=== PATIENT | male | born 1960 | race Caucasian/White ===

== ENCOUNTER → 2017-09-03 10:18 | Outpatient (CLI) | payer MEDICARE, SELFPAY ==
[2017-09-03 11:06] LABS: Basophils % 0.4 % (0.1-2.0); Eosinophils # 0.2 K/mm3 (0.0-0.4); Eosinophils % 3.3 % (0.1-12.0); Hematocrit 49.9 % (42.0-52.0); Hemoglobin 16.2 g/dL (14.1-18.0); Lymphocytes # 1.9 K/mm3 (0.7-4.5); Lymphocytes % 29.8 K/mm3 (10-50); Mean Corpuscular HGB Conc 32.5 g/dL (31.8-35.4); Mean Corpuscular Hemoglobin 30.2 pg (27.0-31.2); Mean Corpuscular Volume 92.9 fl (80-94); Mean Platelet Volume 8.4 fl (7.4-10.4); Monocytes # 0.3 K/mm3 (0.1-1.0); Monocytes % 5.4 % (1.7-9.3); Neutrophils # 3.8 K/mm3 (1.8-7.8); Platelet Count 124 K/mm3 (142-424); Red Blood Count 5.37 M/mm3 (4.60-6.20); Red Cell Distribution Width 13.5 % (11.5-17.5); White Blood Count 6.2 K/mm3 (4.8-10.8)
[2017-09-03 12:31] LABS: Alanine Aminotransferase 31 U/L (12-78); Albumin Level 4.3 gm/dL (3.4-5.0); Albumin/Globulin Ratio 1.3 (1.1-1.8); Alkaline Phosphatase 113 U/L (46-116); Anion Gap 9.6 mEq/L (5-15); Aspartate Amino Transferase 25 U/L (15-37); Bilirubin,Total 0.6 mg/dL (0.2-1.0); Blood Urea Nitrogen 11 mg/dL (7-18); Calcium 9.3 mg/dL (8.5-10.1); Carbon Dioxide 33 mmol/L (21.0-32.0); Chloride 104 mmol/L (98-107); Creatinine,Serum 0.95 mg/dL (0.70-1.30); Estimated Glomerular Filt Rate > 60 ml/min (>60); GFR (African American) > 60 ML/MIN (>60); Globulin 3.2 gm/dl (1.3-3.2); Glucose 85 mg/dL (74-106); Potassium 4.6 mmoL/L (3.5-5.1); Sodium 142 mmol/L (136-145); Thyroid Stimulating Hormone 0.49 uIU/ml (0.358-3.740); Total Protein,Serum 7.5 gm/dL (6.4-8.2)
== END ==
PROVIDERS: PCP Internal Medicine Adolescent Medicine; Visit Provider Internal Medicine Adolescent Medicine
DX: E78.01 Familial hypercholesterolemia (principal); I25.10 Atherosclerotic heart disease of native coronary artery without angina pectoris
CPT/HCPCS: 36415; 80053; 84443; 85025

== ENCOUNTER 2017-10-07 12:25 | Observation (INO) ==
[2017-10-07 12:56] LABS: Basophils % 0.5 % (0.1-2.0); Eosinophils # 0.1 K/mm3 (0.0-0.4); Eosinophils % 2.2 % (0.1-12.0); Hemoglobin 12.8 g/dL (14.1-18.0); Lymphocytes % 37.2 K/mm3 (10-50); Mean Corpuscular Hemoglobin 29.6 pg (27.0-31.2); Mean Corpuscular Volume 92.7 fl (80-94); Mean Platelet Volume 9.2 fl (7.4-10.4); Monocytes # 0.5 K/mm3 (0.1-1.0); Monocytes % 8.3 % (1.7-9.3); Neutrophils # 2.8 K/mm3 (1.8-7.8); Neutrophils % 51.6 % (37.0-80.0); Platelet Count 107 K/mm3 (142-424); Red Blood Count 4.32 M/mm3 (4.60-6.20); Red Cell Distribution Width 13.9 % (11.5-17.5); White Blood Count 5.4 K/mm3 (4.8-10.8)
[2017-10-07 13:22] LABS: Alanine Aminotransferase 29 U/L (12-78); Albumin Level 3.1 gm/dL (3.4-5.0); Albumin/Globulin Ratio 1.1 (1.1-1.8); Alkaline Phosphatase 86 U/L (46-116); Anion Gap 9.3 mEq/L (5-15); Aspartate Amino Transferase 21 U/L (15-37); Bilirubin,Total 0.4 mg/dL (0.2-1.0); Blood Urea Nitrogen 11 mg/dL (7-18); Calcium 7.9 mg/dL (8.5-10.1); Carbon Dioxide 29 mmol/L (21.0-32.0); Chloride 110 mmol/L (98-107); Creatine Kinase 50 U/L (39-308); Globulin 2.8 gm/dl (1.3-3.2); Glucose 67 mg/dL (74-106); Potassium 4.3 mmoL/L (3.5-5.1); Sodium 144 mmol/L (136-145); Total Protein,Serum 5.9 gm/dL (6.4-8.2)
[2017-10-07 14:15] LABS: Microscopic, Urine URINE MICROSCOPIC (MICROSCOPIC)
--- NOTE | 2017-10-07 14:15 | Emergency Department Note ---
ED Disposition Clinical Impression: Symptomatic bradycardia Hypotension Qualifiers: Hypotension type: other hypotension type Qualified Code(s): I95.89 - Other hypotension Disposition: Admitted As Inpatient Condition on Discharge: Fair Time of Disposition: 14:35 - Critical Care Critical Care Time: No Attestation: On 10/07/17, the high probability of a clinically significant, sudden or life threatening deterioration of the following system(s) required my full and direct attention, intervention and personal management. The time I documented below is in addition to time spent performing reported procedures but includes the following listed in this critical care notation. Total Critical Care Time: 60 Vital system(s) involved:: Circulatory Failure My critical care processes included: Assessment & monitoring of V/S, Initial and Re-exams, Data Review/Interpretation, Coordinating Care, Medication Orders and management, Documentation Medical Decision Making - Medical Records Medical records reviewed: Yes: I reviewed the patient's medical records. Vital Signs: 10/07/17 12:27 Pulse Rate [Right Radial] 47 L Respiratory Rate 16 Blood Pressure [Right Arm] 79/41 Blood Pressure Mean [Right Arm] 53 Blood Pressure Source [Right Arm] Automatic Cuff Blood Pressure Position [Right Arm] Sitting 02 Sat by Pulse Oximetry 99 Oxygen Delivery Method Room Air - Lab Data Lab results reviewed: Yes: I reviewed the patient's lab results. Lab Results 10/07/17 12:45: WBC 5.4, RBC 4.32 L, Hgb 12.8 L, Hct 40.0 L, MCV 92.7, MCH 29.6 , MCHC 32.0, RDW 13.9, Plt Count 107 L, MPV 9.2, Neut % (Auto) 51.6, Lymph % ( Auto) 37.2, [place] % (Auto) 8.3, Eos % (Auto) 2.2, Baso % (Auto) 0.5, Neut # (Auto ) 2.8, Lymph # (Auto) 2.0, [place] # (Auto) 0.5, Eos # (Auto) 0.1, Baso # (Auto) 0.0 10/07/17 12:45: Sodium 144, Potassium 4.3, Chloride 110 H, Carbon Dioxide 29, Anion Gap 9.3, BUN 11, Creatinine 1.05, Estimated Creat Clear 71, Estimated GFR 72, Est GFR ( Amer) 87, Glucose 67 L, Calcium 7.9 L, Total Bilirubin 0.4 , AST 21, ALT 29, Alkaline Phosphatase 86, Total Creatine Kinase 50, CK-MB (CK-2 ) < 0.5, CK-MB (CK-2) Rel Index 1.0, Troponin I < 0.02, Total Protein 5.9 L, Albumin 3.1 L, Globulin 2.8, Albumin/Globulin Ratio 1.1 10/07/17 12:45: Lactic Acid 1.3 10/07/17 12:45: TSH 0.95 D 10/07/17 14:08: Urine Color Yellow, Urine Appearance Clear, Urine pH 6.0, Ur Specific [place] 1.010, Urine Protein Negative, Urine Glucose (UA) Negative, Urine Ketones Negative, Urine Blood Negative, Urine Nitrate Negative, Urine Bilirubin Negative, Urine Urobilinogen 0.2, Ur Leukocyte Esterase Negative, Urine RBC None, Urine WBC None, Ur Squamous Epith Cells Occasional, Urine Bacteria Trace, Hyaline Casts Occasional 10/07/17 14:08: Urine Opiates Screen Positive H, Ur Barbituates Screen Negative , Ur Phencyclidine Scrn Negative, Ur Amphetamines Screen Negative, U Methamphetamines Scrn Negative, U Benzodiazepines Scrn Positive H, Urine Cocaine Screen Negative, U Marijuana (THC) Screen Negative Result diagrams: 10/07/17 12:45 10/07/17 12:45 Orders (Tests/Meds): ED MEDICATIONS Generic Name Dose Route Start Last Admin Trade Name Freq PRN Reason Stop Dose Admin Aspirin 81 mg 10/08/17 09:00 Aspirin 81mg Chewable Tablet PO 11/07/17 08:59 DAILY ROGELIO Sodium Chloride 1,000 mls @ 75 mls/hr 10/07/17 16:56 10/07/17 17:43 Sod Chlor 0.9% 1000ml Bag IV 11/06/17 16:54 75 mls/hr .[id number] ROGELIO Administration Non-Formulary Medication 0.5 mg 10/07/17 16:56 10/07/17 22:19 Alprazolam [Alprazolam Xr 0.5mg Tab] PO 0.5 mg TID PRN Administration Anxiety Non-Formulary Medication 80 mg 10/08/17 09:00 Atorvastatin Calcium [Atorvastatin 80mg Tab] PO 11/07/17 08:59 DAILY ROGELIO Non-Formulary Medication 5 mg 10/07/17 21:00 10/07/17 22:26 Oxybutynin Chloride [Oxybutynin Chloride Er] PO 11/06/17 20:59 5 mg TID ROGELIO Administration Non-Formulary Medication 15 mg 10/07/17 17:00 10/07/17 22:28 Oxycodone Hcl [Oxycodone (Ir) 15mg Tab] PO 11/06/17 16:59 Not Given Q6 ROGELIO Non-Formulary Medication 4 mg 10/07/17 21:00 10/07/17 22:27 Tizanidine Hcl [Tizanidine Hcl] PO 11/06/17 20:59 4 mg TID ROGELIO Administration Non-Formulary Medication 40 mg 10/08/17 09:00 Fluoxetine Hcl [Fluoxetine Hcl] PO 11/07/17 08:59 DAILY [facility] Pantoprazole Sodium 40 mg 10/08/17 09:00 Protonix 40mg Tablet PO 11/07/17 08:59 DAILY [facility] Pregabalin 50 mg 10/07/17 21:00 10/07/17 22:18 Lyrica 100mg Capsule PO 11/06/17 20:59 50 mg BID ROGELIO Administration Discontinued Medications Generic Name Dose Route Start Last Admin Trade Name Freq PRN Reason Stop Dose Admin Aspirin 81 mg 10/08/17 09:00 Aspirin 81mg Chewable Tablet PO 11/07/17 08:59 DAILY ROGELIO Sodium Chloride 1,000 mls @ 999 mls/hr 10/07/17 12:45 10/07/17 12:58 Sod Chlor 0.9% 1000ml Bag IV 10/07/17 13:45 999 mls/hr .[id number] ROGELIO Administration Sodium Chloride 1,000 mls @ 75 mls/hr 10/07/17 16:55 Sod Chlor 0.9% 1000ml Bag IV 11/06/17 16:54 .[id number] ROGELIO Non-Formulary Medication 0.5 mg 10/07/17 16:55 Alprazolam [Alprazolam Xr 0.5mg Tab] PO TID PRN Anxiety Non-Formulary Medication 80 mg 10/08/17 09:00 Atorvastatin Calcium [Atorvastatin 80mg Tab] PO 11/07/17 08:59 DAILY ROGELIO Non-Formulary Medication 5 mg 10/07/17 21:00 Oxybutynin Chloride [Oxybutynin Chloride Er] PO 11/06/17 20:59 TID ROGELIO Non-Formulary Medication 15 mg 10/07/17 17:00 Oxycodone Hcl [Oxycodone (Ir) 15mg Tab] PO 11/06/17 16:59 Q6 ROGELIO Non-Formulary Medication 4 mg 10/07/17 21:00 Tizanidine Hcl [Tizanidine Hcl] PO 11/06/17 20:59 TID ROGELIO Non-Formulary Medication 40 mg 10/08/17 09:00 Fluoxetine Hcl [Fluoxetine Hcl] PO 11/07/17 08:59 DAILY [facility] Pantoprazole Sodium 40 mg 10/08/17 09:00 Protonix 40mg Tablet PO 11/07/17 08:59 DAILY R[facility]IO Pregabalin 50 mg 10/07/17 21:00 Lyrica 100mg Capsule PO 11/06/17 20:59 BID ROGELIO ORDERS Category Date Time Status Blood Culture Stat Micro 10/07/17 12:45 Received - Radiology Data #1 Image(s): Chest Image Reviewed: Yes I reviewed the patient's radiology results, Yes I reviewed the patient's radiology image Patient: Rl Steward MR#: [id number] : 1960 Acct:[id number] Age/Sex: 57 / M ADM Date: 10/07/17 Loc: ER Attending Dr: Ordering Physician: Gelacio Alston MD Date of Service: 10/07/17 Procedure(s): XR chest portable Accession Number(s): [id number] cc: Almas Lowry MD; Thiago Franklin ~ XR chest portable HISTORY: Dizziness and hypotension ITS.REASON: dizziness ORDERING PHYSICIAN: Gelacio Alston MD PATIENT AGE: 57 years COMPARISON: 07/06/2017 FINDINGS: Borderline cardiomegaly. Prior median sternotomy with CABG. Epicardial pacer wires are present. Clips are present in the right axilla. Fibronodular changes are present in the right apex. No lobar consolidation or collapse. No acute bony anomalies. IMPRESSION: Chronic changes and postsurgical changes. No change with no acute finding. Dictated By: Thiago Franklin Signed By: <Electronically signed by Thiago Franklin in OV> 10/07/17 1440 DD/ 1439 - US Data US Images: Other (ECHO, 2D) ED US Reviewed: Yes: I have reviewed the patient's US results, I have viewed radiologist's interpretation Findings Narrative: cc: Almas Lowry MD; Gelacio Alston MD; Buddy Johnson MD~ PROCEDURE: 2-D M-mode and color Doppler study INDICATIONS FOR THE TEST: Chest pain COPD Heart Murmur Tobacco Smoking Palpitations Fatigue Syncope Edema Hypertension Diabetes Mellitus Rheumatic Fever SOB ARTHUR Obesity Hyperlipidemia Family History HD Additional History HYPOTENSION,BRADYCARDIA,CAD CABG ECHO 07/06/17 EF 45% PATIENT INFORMATION HEIGHT: 68 WEIGHT:147 GENDER: Male B/P:79/41 2-D/M-MODE INTERPRETATION: 2-D MEASUREMENTS OBSERVED VALUES IN CMS Right Ventricular Dimension (RVDd) 2.2 Interventricular Septum (Thickness)(IVsd) 1.0 Left Ventricular Internal Dimensions(LVIDd) 5.1 Left Ventricular Posterior Wall (Thickness)(LVPWd) 1.0 Aortic Root 3.5 Aortic Cusp Separation 2.1 Left Atrial Dimensions (LAD) 3.5 2D 1. Left atrium is mildly enlarged, left ventricle is normal size, visually estimated ejection fraction approximately 40-45%, there is mild discrete hypokinesis involving mid to distal septum anteroapical and apical wall. 2. The right atrium and right ventricle are normal size and contractility. 3. The aortic valve is minimally thickened and fibrosed. 4. The mitral and tricuspid valve leaflets are minimally thickened. 5. The pulmonic valve is poorly visualized. 6. No significant pericardial effusion noted. DOPPLER INTERROGATION: Doppler interrogation of the aortic, mitral and tricuspid valvular presence of trace aortic, mild mitral and tricuspid regurgitation, calculated right ventricular systolic pressure is 46 mmHg consistent with moderate pulmonary hypertension, diastolic parameters are inconclusive. CONCLUSION: 1. Mildly enlarged left atrium, normal left ventricular size, visually estimated ejection fraction 40-45% with multiple segmental wall motion abnormality described above, diastolic parameters are inconclusive. 2. Trace aortic, mild mitral and tricuspid regurgitation, calculated right ventricular systolic pressure is 46 mmHg consistent with moderate pulmonary hypertension 3. No significant pericardial effusion noted. Dictated By: Buddy Johnson MD Signed By: <Electronically signed by Buddy Johnson MD in OV> 10/07/17 1547 DD/ 1526 - Physician Consults Physician Consulted: Claudia Fink c/p Dr Lowry Time: 14:36 Reason -: Admission, Pt condition Additional Consult: Dr Tan Time: 14:40 Reason -: Admission, Pt condition, Cardiology Eval/Care - Tony Inquiry Pt receiving controlled substance: No - Reevaluation(s) Time: 14:35 Reevaluation #1: Upon evaluation patient's condition appears to be unchanged, as far as the heart rate, however the blood pressure was able to be corrected with IV fluids. Dizzy HPI - General Chief Complaint: Dizziness Stated Complaint: hypotensive/dizzy Mode of Arrival: EMS Limitations: No Limitations Description of Symptoms (Recalled from ER Triage Doc. by RN): pt c/o dizziness, weakness, and hypotension. - History of Present Illness HPI Narrative: Patient is a 57-year-old patient presenting the emergency room with a chief complaint of found weakness, and near syncope. He has not been feeling well for the past 2 weeks, reporting that he stands he stands up he feels like putting out, and getting dizzy, and needing to sit down almost immediately. His daughter, who is a nurse, came to check on him today and upon verification of his vital signs she realized that he is bradycardic and hypotensive and she called the ambulance. MD complaint: dizziness, lightheadedness Onset (ago): week(s) (2) Timing: gradual onset History of similar episodes: Yes History of trauma: No Severity: severe Relieving factors: rest Exacerbating factors: movement - Related Data Home Medications Medication Instructions Recorded Confirmed ALPRAZolam [Alprazolam Xr 0.5mg 0.5 mg PO TID PRN 10/07/17 10/07/17 Tab] Aspirin 81 mg PO DAILY 10/07/17 10/07/17 Atorvastatin Calcium [Atorvastatin 80 mg PO DAILY 10/07/17 10/07/17 80mg Tab] Fluoxetine HCl 40 mg PO DAILY 10/07/17 10/07/17 Lisinopril [Lisinopril 20mg Tab] 20 mg PO DAILY 10/07/17 10/07/17 Oxybutynin Chloride [Oxybutynin 5 mg PO TID 10/07/17 10/07/17 Chloride ER] Oxycodone HCl [Oxycodone (IR) 15mg 15 mg PO Q6 10/07/17 10/07/17 Tab] Pantoprazole Sodium [Protonix 40mg 40 mg PO DAILY 10/07/17 10/07/17 tablet] Pregabalin [Lyrica 100mg Cap] 50 mg PO BID 10/07/17 10/07/17 Tizanidine HCl 4 mg PO TID 10/07/17 10/07/17 Allergies Allergy/AdvReac Type Severity Reaction Status Date / Time adhesive tape [ADHESIVE TAPE] Allergy Intermediate I-RASH Verified 10/07/17 12: 33 duloxetine [From CYMBALTA] AdvReac Unknown Verified 10/07/17 12:33 [facility] History I have reviewed the patient's past medical history: Yes Medical History: Denies:: Cancer, Diabetes Mellitus Type 1, Diabetes Mellitus Type 2, MRSA Amputation: No - *Social History Smoking Status: Former smoker Tobacco Type: cigarettes Alcohol Intake: never - Psychiatric History Expresses thoughts of harming self/others: None Suicide Plan Description: No Plan ROS Obtained: Yes All systems reviewed & no additional complaints - Neurologic Neurologic: Reports weakness Physical Exam - General General appearance: alert, in no apparent distress - Head Head exam: atraumatic, normocephalic, normal inspection - Eye Eye exam: Present: normal appearance, PERRL, EOMI - ENT ENT exam: Present: normal exam, normal oropharynx, mucous membranes moist, TM's normal bilaterally, normal external ear exam - Neck Neck exam: Present: normal inspection, full ROM, trachea midline. Absent: meningismus, lymphadenopathy - Chest Chest inspection: Present: normal inspection, symmetric chest wall rise. Absent : tenderness - Respiratory Respiratory exam: Present: normal lung sounds bilaterally. Absent: respiratory distress - Cardiovascular Cardiovascular exam: Present: bradycardia, normal heart sounds. Absent: JVD - Abdominal Exam Abdominal exam: Present: soft, normal bowel sounds. Absent: distention, tenderness, guarding - Extremities Exam Extremities exam: Present: normal inspection, full ROM, normal capillary refill. Absent: calf tenderness - Back Exam Back exam: Present: normal inspection. Absent: tenderness - Neurological Exam Neurological exam: Present: alert, oriented X3 - Psychiatric Psychiatric exam: Present: normal affect, normal mood - Skin Skin exam: Present: warm, dry, intact, normal color - Lymphatic Lymphatic Findings: no adenopathy
[2017-10-07 14:22] LABS: Appearance,Urine CLEAR (Clear); Bilirubin,Urine Negative (Negative); Blood, Urine Negative (Negative); Color,Urine YELLOW (Yellow); Glucose,Urine (UA) Negative (Negative); Ketones,Urine Negative (Negative); Leukocyte Esterase,Urine Negative (Negative); Protein,Urine Negative (Negative); Urobilinogen,Urine 0.2 EU/dl (0.2)
[2017-10-07 14:25] LABS: Amphetamine/Metha Screen,Urine Negative ng/mL (<1000); Barbiturates Screen,Urine Negative ng/mL (<200); Benzodiazepines Screen,Urine Positive ng/mL (200); Cannabinoid Screen,Urine Negative ng/mL (<50); Cocaine Screen,Urine Negative ng/g (<300); Methadone Screen,Urine Negative ng/mL (<300); Opiate Screen,Urine Positive ng/mL (<300); Phencyclidine Screen,Urine Negative ng/mL (<25)
[2017-10-07 14:34] LABS: Bacteria,Urine Trace /lpf; Hyaline Casts,Urine Occasional #/lpf (0); Squamous Epithelial Cell,Urine Occasional #/hpf (0-5)
--- NOTE | 2017-10-07 15:51 | Cardiology Report ---
PROCEDURE: 2-D M-mode and color Doppler study INDICATIONS FOR THE TEST: Chest pain COPD Heart Murmur Tobacco Smoking Palpitations Fatigue Syncope Edema Hypertension Diabetes Mellitus Rheumatic Fever SOB ARTHUR Obesity Hyperlipidemia Family History HD Additional History HYPOTENSION,BRADYCARDIA,CAD CABG ECHO 07/06/17 EF 45% PATIENT INFORMATION HEIGHT: 68 WEIGHT:147 GENDER: Male B/P:79/41 2-D/M-MODE INTERPRETATION: 2-D MEASUREMENTS OBSERVED VALUES IN CMS Right Ventricular Dimension (RVDd) 2.2 Interventricular Septum (Thickness)(IVsd) 1.0 Left Ventricular Internal Dimensions(LVIDd) 5.1 Left Ventricular Posterior Wall (Thickness)(LVPWd) 1.0 Aortic Root 3.5 Aortic Cusp Separation 2.1 Left Atrial Dimensions (LAD) 3.5 2D 1. Left atrium is mildly enlarged, left ventricle is normal size, visually estimated ejection fraction approximately 40-45%, there is mild discrete hypokinesis involving mid to distal septum anteroapical and apical wall. 2. The right atrium and right ventricle are normal size and contractility. 3. The aortic valve is minimally thickened and fibrosed. 4. The mitral and tricuspid valve leaflets are minimally thickened. 5. The pulmonic valve is poorly visualized. 6. No significant pericardial effusion noted. DOPPLER INTERROGATION: Doppler interrogation of the aortic, mitral and tricuspid valvular presence of trace aortic, mild mitral and tricuspid regurgitation, calculated right ventricular systolic pressure is 46 mmHg consistent with moderate pulmonary hypertension, diastolic parameters are inconclusive. CONCLUSION: 1. Mildly enlarged left atrium, normal left ventricular size, visually estimated ejection fraction 40-45% with multiple segmental wall motion abnormality described above, diastolic parameters are inconclusive. 2. Trace aortic, mild mitral and tricuspid regurgitation, calculated right ventricular systolic pressure is 46 mmHg consistent with moderate pulmonary hypertension 3. No significant pericardial effusion noted.
--- NOTE | 2017-10-07 16:46 | History & Physical Report ---
*Admission Date: 10/07/17 *Chief complaint: dizziness *History of present illness: 57 year old male with a history of CAD s/p CABG and previous ID's presented to the ED with two week h/o dizziness and near syncopal events. Daughter, who is a nurse, reports his HR was in the low 40's and SBP in the 70's at home this morning. She brought him to the ED for evaluation. In the ED, he was noted to be bradycardiac in the 40's. EKG showed sinus bradycardia. Cardiac enzymes and labs were obtained and found to be unremarkable. He takes lisinopril at home , but is not on any beta blockers or calcium channel blockers. He was given IVF 's and blood pressure responded to baseline 110. Daughter reports his baseline HR is 50. Preliminary echo is unchanged from 07/16 with EF 45%. Patient was admitted for further monitoring and cardiology consultation. [facility] History I have reviewed the patient's past medical history: Yes Medical History: Denies:: Cancer, Diabetes Mellitus Type 1, Diabetes Mellitus Type 2, MRSA Amputation: No - *Social History Smoking Status: Former smoker Tobacco Type: cigarettes Alcohol Intake: never - Psychiatric History Expresses thoughts of harming self/others: None Suicide Plan Description: No Plan Review of Systems - Review of Systems Review of systems:: pertinent systems reviewed and negative unless documented below - Constitutional Reports weight loss - *Cardiovascular Reports slow heart rate Comments: dizziness - *Neurologic Reports weakness Meds Home Medications Medication Instructions Recorded Confirmed Type ALPRAZolam [Alprazolam Xr 0.5mg 0.5 mg PO TID PRN 10/07/17 10/07/17 History Tab] Aspirin 81 mg PO DAILY 10/07/17 10/07/17 History Atorvastatin Calcium [Atorvastatin 80 mg PO DAILY 10/07/17 10/07/17 History 80mg Tab] Fluoxetine HCl 40 mg PO DAILY 10/07/17 10/07/17 History Lisinopril [Lisinopril 20mg Tab] 20 mg PO DAILY 10/07/17 10/07/17 History Oxybutynin Chloride [Oxybutynin 5 mg PO TID 10/07/17 10/07/17 History Chloride ER] Oxycodone HCl [Oxycodone (IR) 15mg 15 mg PO Q6 10/07/17 10/07/17 History Tab] Pantoprazole Sodium [Protonix 40mg 40 mg PO DAILY 10/07/17 10/07/17 History tablet] Pregabalin [Lyrica 100mg Cap] 50 mg PO BID 10/07/17 10/07/17 History Tizanidine HCl 4 mg PO TID 10/07/17 10/07/17 History Allergies Allergy/AdvReac Type Severity Reaction Status Date / Time adhesive tape [ADHESIVE TAPE] Allergy Intermediate I-RASH Verified 10/07/17 12: 33 duloxetine [From CYMBALTA] AdvReac Unknown Verified 10/07/17 12:33 Exam Vital signs and Labs for Last 24 Hours: Pulse Resp BP Pulse Ox 47 L 16 79/41 99 10/07/17 12:27 10/07/17 12:27 10/07/17 12:27 10/07/17 12:27 Narrative: Alert and oriented x3. Rate and rhythm regular, bradycardiac. Sinus blas 40 on bedside monitor. + murmur. Lung sounds with crackles bilateral bases. Abdomen soft and non-tender. No JVD, LAD. No ENT symptoms. Skin pink, warm and dry Assessment and Plan (1) CAD (coronary artery disease) Current visit: Yes Status: Chronic Category: Medical Code(s): I25.10 - Atherosclerotic heart disease of [place] coronary artery without angina pectoris (2) Hypotension Current visit: Yes Status: Acute Qualifiers: Hypotension type: other hypotension type Qualified Code(s): I95.89 - Other hypotension Category: Medical Code(s): I95.9 - Hypotension, unspecified (3) Symptomatic bradycardia Current visit: Yes Status: Acute Category: Medical Code(s): R00.1 - Bradycardia, unspecified - Assessment and plan all Dx Assessment and Plan for all problems:: Admit, monitor telemetry. Pacer pads at bedside. Consult cardiology.
--- NOTE | 2017-10-08 07:30 | Pharmacy Consult Notes ---
[facility] Pharmacy VTE Monitoring - Patient Demographics Admission date: 10/07/17 Report Date: 10/08/17 Time: 07:30 Allergies/Adverse Reactions: Patient Allergies adhesive tape [ADHESIVE TAPE] Allergy (Intermediate, Verified 10/07/17 12:33) I-RASH duloxetine [From CYMBALTA] Adverse Reaction (Unknown, Verified 10/07/17 12:33) Height: 1.73 m Weight: 64.609 kg Patient Problems: Current Active Problems Symptomatic bradycardia (Acute) Hypotension (Acute) CAD (coronary artery disease) (Chronic) - VTE Risk Labs: VTE Related Lab Results Hgb 12.8 g/dL (14.1-18.0) L 10/07/17 12:45 Hct 40.0 % (42.0-52.0) L 10/07/17 12:45 Plt Count 107 K/mm3 (142-424) L 10/07/17 12:45 BUN 11 mg/dL (7-18) 10/07/17 12:45 Creatinine 1.05 mg/dL (0.70-1.30) 10/07/17 12:45 Estimated Creat Clear 71 mL/min (0-300) 10/07/17 12:45 Was VTE Risk Assessment Performed: Yes VTE Risk Level: Very Low Risk - Prophylaxis VTE Prophylaxis Ordered?: Yes Types of VTE Prophylaxis: TEDS Knee High Location of Applied Device: Bilateral Lower Extremeties - VTE Diagnosis Confirmed Treatment or plan recommended: Continue Current Treatment
--- NOTE | 2017-10-08 08:57 | Progress Note ---
Internal Medicine - PN: Subj *Date: 10/08/17 *Time: 08:53 Interval history: No events overnight. Continues to be bradycardic but denies acute symptoms at rest. Rested well overnight. Exam Vital signs and Labs for Last 24 Hours: Temp Pulse Resp BP Pulse Ox 98.0 F 46 L 16 124/56 97 10/08/17 07:44 10/08/17 07:44 10/08/17 07:44 10/08/17 07:44 10/08/17 07:44 I & O for Last 24 hours: Intake & Output 10/05/17 10/06/17 10/07/17 10/08/17 11:59 11:59 11:59 11:59 Intake Total 60737 / 70667 Output Total 1400 / 1400 Balance / Weight 142 lb 7 oz Narrative: Pleasant male, oriented x 3. Heart with RRR but bradycardic. Lungs are clear. Abdomen soft, NT/ND, BS present. Extremities are without edema and normal cap refill. Assessment and Plan (1) Symptomatic bradycardia Current visit: Yes Status: Acute Category: Medical Code(s): R00.1 - Bradycardia, unspecified (2) CAD (coronary artery disease) Current visit: Yes Status: Chronic Category: Medical Code(s): I25.10 - Atherosclerotic heart disease of [place] coronary artery without angina pectoris (3) Hypotension Current visit: Yes Status: Acute Qualifiers: Hypotension type: other hypotension type Qualified Code(s): I95.89 - Other hypotension Category: Medical Code(s): I95.9 - Hypotension, unspecified - Assessment and plan all Dx Assessment and Plan for all problems:: Condition is stable this morning. Consult cardiology for recs.
--- NOTE | 2017-10-09 10:09 | Discharge Summary ---
General - General Admission date: 10/07/17 Discharge date: 10/09/17 HPI HPI: 57 year old male with a history of CAD s/p CABG and previous AR's presented to the ED with two week h/o dizziness and near syncopal events. Daughter, who is a nurse, reports his HR was in the low 40's and SBP in the 70's at home this morning. She brought him to the ED for evaluation. In the ED, he was noted to be bradycardiac in the 40's. EKG showed sinus bradycardia. Cardiac enzymes and labs were obtained and found to be unremarkable. He takes lisinopril at home , but is not on any beta blockers or calcium channel blockers. He was given IVF 's and blood pressure responded to baseline 110. Daughter reports his baseline HR is 50. Preliminary echo is unchanged from 07/16 with EF 45%. Patient was admitted for further monitoring and cardiology consultation. Objective Vital signs: Temp Pulse Resp BP Pulse Ox 98.4 F 74 20 136/76 95 10/09/17 07:22 10/09/17 07:22 10/09/17 07:22 10/09/17 07:22 10/09/17 07:22 Narrative: Pleasant male, NAD. Ambulating alone without difficulty and denies vertigo or shortness of breath. Heart with RRR. Lungs clear. Left upper chest dressing is dry and intact. Abdomen soft, BS present. JIMENES, no edema. Oriented x 3. Hospital Course Hospital Course: Mr. Steward underwent evaluation by cardiology and pacemaker was recommended. He remained stable prior to pacemaker placement and did not require any intervention for his bradycardia other than rest. On 10/08/17 he had pacemaker placed, please see procedure note for details. He tolerated the procedure without difficulty/complications and rested well overnight. This morning he reports that he feels "great" and is anxious to go home. No chest pain or shortness of breath and no vertigo while ambulating. Will DC home with post-pacemaker placement instructions and to FU with cardiology within the next week. DS: Diagnosis - Discharge Diagnosis (1) Symptomatic bradycardia Status: Resolved (2) CAD (coronary artery disease) Status: Chronic (3) Hypotension Status: Resolved Meds Home Medications Medication Instructions Recorded Confirmed Type ALPRAZolam [Alprazolam Xr 0.5mg 0.5 mg PO TID PRN 10/07/17 10/07/17 History Tab] Aspirin 81 mg PO DAILY 10/07/17 10/07/17 History Atorvastatin Calcium [Atorvastatin 80 mg PO DAILY 10/07/17 10/07/17 History 80mg Tab] Fluoxetine HCl 40 mg PO DAILY 10/07/17 10/07/17 History Lisinopril [Lisinopril 20mg Tab] 20 mg PO DAILY 10/07/17 10/07/17 History Oxybutynin Chloride [Oxybutynin 5 mg PO TID 10/07/17 10/07/17 History Chloride ER] Oxycodone HCl [Oxycodone (IR) 15mg 15 mg PO Q6H 10/07/17 10/08/17 History Tab] Pantoprazole Sodium [Protonix 40mg 40 mg PO DAILY 10/07/17 10/07/17 History tablet] Pregabalin [Lyrica 100mg Cap] 50 mg PO BID 10/07/17 10/07/17 History Tizanidine HCl 4 mg PO TID 10/07/17 10/07/17 History Allergies Allergy/AdvReac Type Severity Reaction Status Date / Time adhesive tape [ADHESIVE TAPE] Allergy Intermediate I-RASH Verified 10/07/17 12: 33 duloxetine [From CYMBALTA] AdvReac Unknown Verified 10/07/17 12:33 Discharge Plan - Patient Discharge Instructions ACTIVITY: No heavy lifting DIET: cardiac Additional Instructions: post-pacemaker protocol Patient Instructions: DI for Bradycardia - Follow up Plan Follow up with: Gurvinder Tan MD [Staff Physician] - 1 week Disposition: Home, Self-Usp Medications: Home Medications Medication Instructions Recorded Confirmed Type ALPRAZolam [Alprazolam Xr 0.5mg 0.5 mg PO TID PRN 10/07/17 10/07/17 History Tab] Aspirin 81 mg PO DAILY 10/07/17 10/07/17 History Atorvastatin Calcium [Atorvastatin 80 mg PO DAILY 10/07/17 10/07/17 History 80mg Tab] Fluoxetine HCl 40 mg PO DAILY 10/07/17 10/07/17 History Lisinopril [Lisinopril 20mg Tab] 20 mg PO DAILY 10/07/17 10/07/17 History Oxybutynin Chloride [Oxybutynin 5 mg PO TID 10/07/17 10/07/17 History Chloride ER] Oxycodone HCl [Oxycodone (IR) 15mg 15 mg PO Q6H 10/07/17 10/08/17 History Tab] Pantoprazole Sodium [Protonix 40mg 40 mg PO DAILY 10/07/17 10/07/17 History tablet] Pregabalin [Lyrica 100mg Cap] 50 mg PO BID 10/07/17 10/07/17 History Tizanidine HCl 4 mg PO TID 10/07/17 10/07/17 History Prescriptions/Medication Reconciliation: No Action Pregabalin [Lyrica 100mg Cap] 50 mg PO BID Pantoprazole Sodium [Protonix 40mg tablet] 40 mg PO DAILY Oxycodone HCl [Oxycodone (IR) 15mg Tab] 15 mg PO Q6H Oxybutynin Chloride [Oxybutynin Chloride ER] 5 mg PO TID Fluoxetine HCl 40 mg PO DAILY Atorvastatin Calcium [Atorvastatin 80mg Tab] 80 mg PO DAILY Aspirin 81 mg PO DAILY ALPRAZolam [Alprazolam Xr 0.5mg Tab] 0.5 mg PO TID PRN PRN Reason: Anxiety Lisinopril [Lisinopril 20mg Tab] 20 mg PO DAILY Tizanidine HCl 4 mg PO TID
--- NOTE | 2017-11-03 12:32 | Procedure Note ---
[facility] Pacemaker - Pacemaker Placement Date of Procedure:: 10/08/17 Time of Procedure:: 09:00 Procedure Performed:: Pocket formation for permanent pacemaker placement Placement of atrial sensing pacing lead into the right atrial appendage Placement of ventricular sensing pacing lead into the right ventricular apex Permanent pacemaker placement Preoperative Diagnosis:: Symptomatic Bradycardia Sick Sinus Syndrome Complications:: None Estimated Blood Loss (ml):: 10 Technique:: 1% Lidocaine with epinephrine used to anesthetize the left anterior aspect of the chest.Scalpel was used to make the initial cutaneous incision while electrocautery was used to dissect down into the fascia. The fascia was lifted off the pectoralis muscle and digitally manipulated creating a pocket for the pacemaker. The patient was then placed in Trendelenburg position and the subclavian vein was accessed via the Selinger technique. A 7 Hebrew sheath was placed under fluoroscopic guidance into the subclavian vein. Following this, an additional wire was placed into the sheath. Now, with two wires inside the 7 Hebrew sheath, this sheath was removed, maintaining the two wires in the subclavian vein. The sheath and dilator was then placed over one of the wires while keeping the other wire in place within the subclavian vein. The dilator was removed from the sheath. Using fluoroscopic guidance, the ventricular lead was placed into the right ventricular apex, screwed and secured into place. Electronic interrogation proved acceptable thresholds and voltage within the lead. Using 3-0 silk, the ventricular lead was then secured into place. Lead was secured to the fascia using the 3-0 silk. Following this, the sheath was pealed away. An additional 7 Hebrew fresh sheath and dilator was placed over the existing wire. Using fluoroscopic guidance, the atrial lead was then placed into the right atrial appendage and screwed and secured in place. Electrical interrogation demonstrated acceptable thresholds and voltage numbers. The atrial lead was then secured into place using 3-0 silk and then the lead was finally secured to the fascia. With both the atria and ventricular leads in place with acceptable thresholds and sensitivity, the atrial and ventricular leads were placed into the pacemaker generator. Pacemaker generator was then secured to the fascia using 3-0 silk. 1 gram of Ancef was used to flush the pocket. Following the pacemaker being secured to the fascia and in place, Monocryl was used to close the subcutaneous layers while bobby were used to close the cutaneous layer. A pressure dressing was placed and the patient was transferred to the postop holding area in stable condition for postoperative care. - Interrogation Narrative: P wave measures 1.5-2.0 mV with a threshold of 1.2 V and a lead impedance 510 ohms and pulse width .4 ms R wave measures 6-7 mV with a threshold of 1.0 V and a lead impedance 691 ohms and pulse width .4ms DDDR mode with base tracking of 60 maximum tracking 130 Generator model number [id number] serial number [id number] Atrial lead model number [id number] serial number [id number] Ventricular lead model number [id number] serial number [id number] Impression:: 1. Successful pocket formation for permanent pacemaker 2. Successful placement of atrial sensing and pacing lead into the right atrial appendage 3. Successful placement of ventricular sensing and pacing lead into the right ventricular apex 4. Successful placement of permanent dual chamber pacemaker Plan: Postoperative wound care
== END 2017-10-09 11:50 | disposition home or self-care (01) ==
LOC: 2ND 12:25 → ER 12:25 → 2ND 16:55
PROVIDERS: ADMIT Internal Medicine Adolescent Medicine; ATTEND Internal Medicine Adolescent Medicine

== ENCOUNTER → 2017-11-01 11:00 | Outpatient (CLI) | payer MEDICARE, SELFPAY ==
[2017-11-01 11:53] LABS: Basophils % 0.3 % (0.1-2.0); Eosinophils # 0.1 K/mm3 (0.0-0.4); Eosinophils % 0.8 % (0.1-12.0); Hematocrit 47.3 % (42.0-52.0); Hemoglobin 15.5 g/dL (14.1-18.0); Lymphocytes # 1.8 K/mm3 (0.7-4.5); Mean Corpuscular HGB Conc 32.6 g/dL (31.8-35.4); Mean Corpuscular Hemoglobin 30.6 pg (27.0-31.2); Mean Corpuscular Volume 93.8 fl (80-94); Mean Platelet Volume 9.1 fl (7.4-10.4); Monocytes # 0.7 K/mm3 (0.1-1.0); Monocytes % 7.9 % (1.7-9.3); Platelet Count 185 K/mm3 (142-424); Red Blood Count 5.05 M/mm3 (4.60-6.20); Red Cell Distribution Width 14.1 % (11.5-17.5); White Blood Count 8.6 K/mm3 (4.8-10.8)
[2017-11-01 12:24] LABS: Alanine Aminotransferase 52 U/L (12-78); Albumin Level 4.3 gm/dL (3.4-5.0); Albumin/Globulin Ratio 1.1 (1.1-1.8); Alkaline Phosphatase 105 U/L (46-116); Aspartate Amino Transferase 40 U/L (15-37); Blood Urea Nitrogen 10 mg/dL (7-18); Calcium 9.4 mg/dL (8.5-10.1); Carbon Dioxide 31 mmol/L (21.0-32.0); Chloride 99 mmol/L (98-107); Chol/HDL Ratio 1.4 (1-3.5); Cholesterol 82 mg/dL (140-200); Creatinine,Serum 0.89 mg/dL (0.70-1.30); Estimated Glomerular Filt Rate 87 ml/min (>60); Ferritin 149 ng/mL (8-388); GFR (African American) 106 ML/MIN (>60); Globulin 3.8 gm/dl (1.3-3.2); Glucose 102 mg/dL (74-106); HDL Cholesterol 58 mg/dL (27-67); LDL Cholesterol 16 mg/dL (0-130); Sodium 136 mmol/L (136-145); Total Protein,Serum 8.1 gm/dL (6.4-8.2); Triglycerides 42 mg/dL (30-200); VLDL Cholesterol 8 mg/dL (0-40)
[2017-11-04 11:53] LABS: Vitamin B12 683 pg/mL (232-1245)
== END ==
PROVIDERS: Visit Provider Internal Medicine Adolescent Medicine
DX: D64.9 Anemia, unspecified (principal); E78.01 Familial hypercholesterolemia
CPT/HCPCS: 36415; 80053; 80061; 82607; 82728; 85025

== ENCOUNTER → 2017-11-12 10:16 | Outpatient (CLI) | payer MEDICARE, SELFPAY ==
--- NOTE | 2017-11-12 10:22 | CT_ITS ---
CT chest wo/w con COMPARISON: CT scan the chest 07/06/[address] scan abdomen pelvis 07/06/2017 HISTORY: Lung nodule, smoking history, history of weight loss TECHNIQUE: Multiaxial scans obtained from the thoracic inlet the hemidiaphragms. Precontrast imaging was performed followed by repeat scans after injection of IV contrast. Sagittal and coronal reformats were evaluated as well. FINDINGS: There are stable calcified lesions in the lung apices bilaterally likely calcified granulomas. Again noted is apparent neurostimulator and/or pain relief electrode is in the spinal canal midthoracic spine level. There are sternal wire sutures noted. There is a cardiac pacemaker with dual chamber electrodes both in good position. Again noted is a calcified granuloma proximal aspect of the right upper lobe. The remainder lung clay are clear showing findings of centrilobular emphysema. The small noncalcified nodule. Segment right lower lobe is again noted and is stable and unchanged in size. IMPRESSION: Basically stable CT scan the chest, consider follow-up CT scan chest in one year view of the strong smoking history and the small noncalcified nodule right lower lobe as described above
--- NOTE | 2017-11-12 10:46 | HMH.ITSHM ---
FLOUXETINE,ASPRIRN,PANTOPRAZOLE,OXYBUTRIN,OXYCODONE,ALPRAZOLAM,LYRICA
== END ==
PROVIDERS: Family Provider Nurse Anesthetist, Certified Registered; PCP Internal Medicine Adolescent Medicine; Visit Provider Internal Medicine Adolescent Medicine
DX: R91.1 Solitary pulmonary nodule (principal); Z87.891 Personal history of nicotine dependence
CPT/HCPCS: 71270; Q9967

== ENCOUNTER → 2018-01-31 12:05 | Outpatient (CLI) | payer MEDICARE, SELFPAY ==
[2018-01-31 13:29] LABS: Free Thyroxine Index 2.7 ug/dL (5.93-13.13); T4 (Thyroxine) 7.4 ug/dl (4.7-13.3); Thyroid Stimulating Hormone 0.46 uIU/ml (0.358-3.740); Triiodothryronine (T3) Uptake 37 % (31-39)
[2018-02-01 06:12] LABS: Thyroid Peroxidase Antibodies 12 IU/mL (0-34)
== END ==
PROVIDERS: Visit Provider Internal Medicine Adolescent Medicine
DX: E05.90 Thyrotoxicosis, unspecified without thyrotoxic crisis or storm (principal)
CPT/HCPCS: 36415; 84436; 84443; 84479; 86376

== ENCOUNTER → 2018-04-06 19:22 | Outpatient (CLI) | payer MEDICARE, SELFPAY | PROVIDERS: PCP Internal Medicine Adolescent Medicine; Visit Provider Urology | DX: G47.33 Obstructive sleep apnea (adult) (pediatric) (principal) | CPT/HCPCS: 95810 ==

== ENCOUNTER → 2018-08-05 10:04 | Outpatient (CLI) | payer MEDICARE, SELFPAY ==
[2018-08-05 10:37] LABS: Basophils # 0.1 K/mm3 (0-0.2); Basophils % 0.8 % (0.1-2.0); Eosinophils # 0.2 K/mm3 (0.0-0.4); Eosinophils % 3.5 % (0.1-12.0); Hematocrit 47.1 % (42.0-52.0); Lymphocytes % 30.4 % (10-50); Mean Corpuscular HGB Conc 31.9 g/dL (31.8-35.4); Mean Corpuscular Hemoglobin 29.7 pg (27.0-31.2); Mean Corpuscular Volume 92.9 fl (80-94); Mean Platelet Volume 8.4 fl (7.4-10.4); Monocytes # 0.4 K/mm3 (0.1-1.0); Neutrophils # 3.9 K/mm3 (1.8-7.8); Neutrophils % 59.3 % (37.0-80.0); Platelet Count 134 K/mm3 (142-424); Red Blood Count 5.07 M/mm3 (4.60-6.20); Red Cell Distribution Width 14.7 % (11.5-17.5); White Blood Count 6.6 K/mm3 (4.8-10.8)
[2018-08-05 12:00] LABS: Alanine Aminotransferase 44 U/L (12-78); Albumin Level 3.7 gm/dL (3.4-5.0); Albumin/Globulin Ratio 1.2 (1.1-1.8); Alkaline Phosphatase 99 U/L (46-116); Anion Gap 10.8 mEq/L (5-15); Aspartate Amino Transferase 31 U/L (15-37); Bilirubin,Total 0.5 mg/dL (0.2-1.0); Blood Urea Nitrogen 9 mg/dL (7-18); Calcium 8.9 mg/dL (8.5-10.1); Carbon Dioxide 31 mmol/L (21.0-32.0); Chloride 102 mmol/L (98-107); Chol/HDL Ratio 1.7 (1-3.5); Cholesterol 84 mg/dL (140-200); Creatinine,Serum 1.01 mg/dL (0.70-1.30); Estimated Glomerular Filt Rate 75 ml/min (>60); GFR (African American) 91 ML/MIN (>60); Globulin 3.2 gm/dl (1.3-3.2); Glucose 84 mg/dL (74-106); HDL Cholesterol 49 mg/dL (27-67); LDL Cholesterol 26 mg/dL (0-130); Potassium 4.8 mmoL/L (3.5-5.1); Sodium 139 mmol/L (136-145); T4 (Thyroxine) 5.7 ug/dl (4.7-13.3); Total Protein,Serum 6.9 gm/dL (6.4-8.2); Triglycerides 46 mg/dL (30-200); VLDL Cholesterol 9 mg/dL (0-40)
[2018-08-05 12:01] LABS: Triiodothryronine (T3) Uptake 35 % (31-39)
== END ==
PROVIDERS: PCP Internal Medicine Adolescent Medicine; Visit Provider Internal Medicine Adolescent Medicine
DX: E01.0 Iodine-deficiency related diffuse (endemic) goiter (principal); I25.10 Atherosclerotic heart disease of native coronary artery without angina pectoris; E78.01 Familial hypercholesterolemia
CPT/HCPCS: 36415; 80053; 80061; 84436; 84443; 84479; 85025

== ENCOUNTER → 2018-08-11 12:58 | Outpatient (CLI) | payer MEDICARE, SELFPAY ==
--- NOTE | 2018-08-11 13:02 | FL_ITS ---
FL barium swallow modified: 08/11/2018 1:02 PM CLINICAL HISTORY: Dysphagia ORDERING PHYSICIAN: Almas Lowry MD PATIENT AGE: 58 years Comparison: None TECHNIQUE: Patient administered varying consistencies of barium contrast, while viewed in lateral position under real-time fluoroscopy with cine recording. FLUOROSCOPY TIME: 1 minute 53 seconds The study was performed in conjunction with speech pathologist. Please see that report & recommendations. FINDINGS: Patient was given varying consistencies of barium. There is no evidence of vestibular penetration or tracheal aspiration. There is minimal residual with the initial thin barium. There are some small anterior osteophytes in the cervical spine C4-C5 and C5-C6 level causing some mild indentation on the posterior aspect of the esophagus. IMPRESSION: No vestibular penetration or tracheal aspiration. Small anterior osteophytes of the cervical spine causing some mild indentation upon the posterior aspect of the esophagus Please see speech pathologist report and recommendations.
--- NOTE | 2018-08-11 14:36 | HMH.SLMBS2 ---
Speech & Language Evaluation Speech/Language Mod Barium Swallow Start: 08/11/18 14:29 Freq: once Status: Complete Protocol: Document 08/11/18 14:29 GURINDER (Rec: 08/11/18 14:36 GURINDER [id number]) [facility] – [place] Recommendations Diet Dietary Recommendations Regular Thin Liquids Mod Barium Swallow Impressions Summary and Impressions Oral Phase Impression No Impairment (WFL) Oral Phase Summary Mr. Steward was given the following consistencies: thins via straw and open cup, pudding, pureed, mechanical soft, regular, and pill with thin wash. No oral phase dypshagia noted. Pharyngeal Phase Impression Minimal Impairment Pharyngeal Phase Summary Mr. Steward did exhibit minimal pharyngeal residue with initial swallow of thin liquids. Adivsed to dry swallow and residue was cleared. Subsequent swallows were within normal limits. At this time, speech therapy is not needed at this time. Speech/Language MBS Assessment/Goals/Plan Assessment Date of Evaluation: 08/11/18 Evaluation Type Initial Certification Assessment/Problems Dysphagia Does Patient Qualify for Service No Plan Pt/Guardian verbally ack understanding Yes of dx/prognosis/goals G -code Required Yes G-CODES ST Current Status [id number] ST Current Status Modifier CI-At least 1% but less than 20% impaired, limited or restricted ST Goal Status Modifier CI-At least 1% but less than 20% impaired, limited or restricted PHYSICIAN CERTIFICATION: I certify the specified therapy services for Rl Steward are required, authorized, and reviewed every 30 days.
== END ==
PROVIDERS: PCP Internal Medicine Adolescent Medicine; Visit Provider Internal Medicine Adolescent Medicine
DX: R13.14 Dysphagia, pharyngoesophageal phase (principal)
CPT/HCPCS: 70371; 92611

== ENCOUNTER → 2018-08-17 14:05 | Outpatient (CLI) | payer MEDICARE, SELFPAY ==
--- NOTE | 2018-08-17 14:09 | US_ITS ---
US soft tissue head and neck CLINICAL INDICATION: ITS.REASON: CERVICAL LYMPHADENOPATHY ORDERING PHYSICIAN: Almas Lowry MD PATIENT AGE: 58 years Comparison: None FINDINGS: The parotid and submandibular glands have an unremarkable appearance. There are 2 small left submandibular nodes measuring up to 8 mm. No fluid collections abscess no other significant anomaly. IMPRESSION: Essentially unremarkable ultrasound of the neck. No adenopathy demonstrated. CT of the neck without and with contrast may be of further value if clinically warranted
--- NOTE | 2018-08-17 14:09 | US_ITS ---
US thyroid HISTORY: Thyromegaly, difficulty swallowing ITS.REASON: THYROMEGALY ORDERING PHYSICIAN: Almas Lowry MD PATIENT AGE: 58 years Comparison: None FINDINGS: Right lobe: Homogeneous echogenicity. The right lobe measures 4.6 x 1.9 x 2.3 cm. No discrete nodule. Left lobe: Homogeneous echogenicity. No discrete nodule. The left lobe measures 4.7 x 1.6 x 1.6 cm. Isthmus: Upper normal at 4 mm IMPRESSION: Mildly enlarged thyroid gland. No nodules demonstrated
== END ==
PROVIDERS: PCP Internal Medicine Adolescent Medicine; Visit Provider Internal Medicine Adolescent Medicine
DX: E01.0 Iodine-deficiency related diffuse (endemic) goiter (principal); R59.0 Localized enlarged lymph nodes
CPT/HCPCS: 76536

== ENCOUNTER → 2018-12-12 12:16 | Outpatient (CLI) | payer MEDICARE, SELFPAY ==
--- NOTE | 2018-12-12 | CT_ITS ---
CT angio LE BI INDICATION: Right-sided pain following injury with bruising, delayed bruising on the right, evaluate for vascular injury ORDERING PHYSICIAN: Almas Lowry MD PATIENT AGE: 58 years COMPARISON: None TECHNIQUE: Axial images are obtained following the intravenous administration of 120 mL's of Optiray 350 contrast. Sagittal and coronal reformatted images are reviewed as well. All CT scans at the facility use one or more dose reduction, viz: automated exposure control, ma/kV adjustment per patient size (including targeted exams where dose is matched to indication, i.e. head), or iterative reconstruction technique. FINDINGS: Angiographic findings: There are mild atheromatous changes of the abdominal aorta. No significant stenotic lesions are evident. The renal arteries, and superior mesenteric artery are unremarkable. 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 The common iliacs show mild atheromatous changes with no stenosis. External iliacs are unremarkable. Right lower extremity runoff: Scattered atheromatous changes. 30-40% stenosis of the mid SFA.. 20% stenosis of the distal SFA from eccentric plaque. There is three-vessel runoff to the ankle. Graph left lower cavity runoff: Scattered foci of atheromatous plaque with no significant stenotic lesions evident. There is three-vessel runoff to the ankle on the left. There is increased soft tissue density in the right lateral hip region. No abnormal contrast extravasation is evident in this area. No pseudoaneurysm. No acute fracture or dislocation. There are surgical clips in the right groin. Incidental automated adjacent gallstone in the neck of the gallbladder. There are nonobstructing left renal calculi measuring up to 6 mm the mid polar region. IMPRESSION: 1. 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 2. Scattered atheromatous changes of the aorta iliacs and superficial femoral arteries with no significant stenotic lesions evident. 3. No aneurysm, pseudoaneurysm, contrast extravasation or other significant vascular abnormality evident
--- NOTE | 2018-12-12 | CT_ITS ---
CT hip RT wo con INDICATION: Right hip pain and bruising following injury ORDERING PHYSICIAN: Almas Lowry MD PATIENT AGE: 58 years COMPARISON: None TECHNIQUE: Axial images are obtained without contrast. Sagittal and coronal reformatted images are reviewed as well. All CT scans at the facility use one or more dose reduction, viz: automated exposure control, ma/kV adjustment per patient size (including targeted exams where dose is matched to indication, i.e. head), or iterative reconstruction technique. FINDINGS: No fracture or dislocation is evident. No lytic or blastic change. There is some mild soft tissue slight laterally at the level of the greater trochanter. Surgical clips are present in the right inguinal region. IMPRESSION: No acute fracture or other significant anomalies. Mild soft tissue swelling in the right hip laterally
--- NOTE | 2018-12-12 | XR_ITS ---
XR knee RT 3V HISTORY: Posttraumatic pain ORDERING PHYSICIAN: Almas Lowry MD PATIENT AGE: 58 years COMPARISON: None FINDINGS: No fracture or dislocation. No lytic or blastic change. Normal mineralization. No significant arthritic changes evident. Surgical clips are present along the medial aspect of the lower thigh and leg. There are generalized vascular calcifications. IMPRESSION: No acute finding
[2018-12-12 12:44] LABS: Blood Urea Nitrogen 12 mg/dL (7-18); Creatinine,Serum 1.07 mg/dL (0.70-1.30); Estimated Glomerular Filt Rate 70 ml/min (>60); GFR (African American) 85 ML/MIN (>60)
== END ==
PROVIDERS: PCP Internal Medicine Adolescent Medicine; Visit Provider Internal Medicine Adolescent Medicine
DX: M25.561 Pain in right knee (principal); M25.551 Pain in right hip; I73.9 Peripheral vascular disease, unspecified
CPT/HCPCS: 36415; 73562; 73700; 73701; 82565; 84520; Q9967

== ENCOUNTER → 2018-12-20 09:41 | Outpatient (CLI) | payer MEDICARE, SELFPAY ==
--- NOTE | 2018-12-20 09:45 | NVE_ITS ---
Venous Exam Indications: 729.5 Pain in limb. Pt fell of ladder 2 weeks ago. Large bruise on the lower medial calf/lower calf, twisted leg in the fall. IMPRESSIONS 1. There is no evidence of significant Reflux. 2. No evidence of deep or superficial vein thrombosis involving the right lower extremity History: Medications: Aspirin, 81 mg PO daily. Right lower extremity venous duplex evaluation. Doppler flow study including spectral analysis, color and kohler scale imaging. Location: Vascular laboratory. Patient status: Outpatient. Tables: Venous flow and imaging: + + + + + Location Overall Flow properties Comments + + + + + Right common femoral Patent Normal phasicity; spontaneous; normal augmentation; compressible + + + + + Right saphenofemoral Patent Compressible junction + + + + + Right profunda Patent Compressible femoral + + + + + Right femoral Patent Normal phasicity; spontaneous; normal augmentation; compressible + + + + + Right greater Likely Harvested for saphenous absent CABG. + + + + + Right popliteal Patent Normal phasicity; spontaneous ; normal augmentation; compressible + + + + + Right posterior Patent Compressible tibial + + + + + Right peroneal Patent Compressible + + + + + Right gastrocnemius Patent Compressible + + + + + Right soleal Patent Compressible + + + + + (Report amended ) Electronically signed by: Thiago Franklin [id number]
== END ==
PROVIDERS: PCP Internal Medicine Adolescent Medicine; Visit Provider Nurse Practitioner Family
DX: I25.10 Atherosclerotic heart disease of native coronary artery without angina pectoris (principal); I73.9 Peripheral vascular disease, unspecified; M79.604 Pain in right leg; S80.11XA Contusion of right lower leg, initial encounter
CPT/HCPCS: 93971

== ENCOUNTER → 2019-01-11 10:39 | Outpatient (CLI) | payer MEDICARE, SELFPAY ==
--- NOTE | 2019-01-11 10:40 | CA_ITS ---
PROCEDURE: 2-D M-mode and color Doppler study INDICATIONS FOR THE TEST: Chest pain COPD Heart Murmur Tobacco Smoking+ Palpitations Fatigue+ Syncope Edema Hypertension+Diabetes Mellitus Rheumatic Fever SOB+ARTHUR Obesity Hyperlipidemia Family History HD Additional History CAD,PACER,CABG,PAD PATIENT INFORMATION HEIGHT: 68 WEIGHT:151 GENDER: Male B/P:104/56 2-D/M-MODE INTERPRETATION: 2-D MEASUREMENTS OBSERVED VALUES IN CMS Right Ventricular Dimension (RVDd) 2.3 Interventricular Septum (Thickness)(IVsd) 1.1 Left Ventricular Internal Dimensions(LVIDd) 5.0 Left Ventricular Posterior Wall (Thickness)(LVPWd) 1.1 Aortic Root 2.8 Aortic Cusp Separation 2.2 Left Atrial Dimensions (LAD) 3.5 2D 1. The left atrium is mildly enlarged, left ventricle is normal size, there is mild concentric left ventricular hypertrophy, visually estimated ejection fraction 45%, there is marked hypo to akinesis involving the distal septum anterior apical wall. 2. The right atrium and right ventricle are normal size and contractility, there is a pacemaker lead seen in the right ventricle. 3. The aortic valve is thickened and calcified leaflet continue to display mobility. 4. The mitral and tricuspid valve leaflets are minimally thickened. 5. The pulmonic valve is poorly present. 6. No significant pericardial effusion noted. DOPPLER INTERROGATION: Doppler interrogation of the aortic, mitral and tricuspid valvular presence of moderate aortic, moderate mitral and mild tricuspid regurgitation, tricuspid regurgitation jet velocity is inadequate for calculation of the right ventricular systolic pressure, grade 1 diastolic dysfunction seen without tissue Doppler evidence of raised left atrial pressure. CONCLUSION: 1. Mildly enlarged left atrium, normal left ventricular size, mild concentric left ventricular hypertrophy, visually estimated ejection fraction 45% with segmental wall motion abnormality described above, grade 1 diastolic dysfunction seen without tissue Doppler evidence of raised left atrial pressure. 2. Moderate aortic, moderate mitral and mild tricuspid regurgitation. 3. No significant pericardial effusion noted.
--- NOTE | 2019-01-11 10:40 | NM_ITS ---
CARDIOLITE SPECT MYOCARDIAL PERFUSION LEXISCAN, REST AND STRESS: History: Coronary disease, bypass surgery, abnormal EKG. Procedure: Patient received a 0.4 mg of intravenous Lexiscan, resting heart rate was 60 bpm resting blood pressure 165/82, with Lexiscan maximum heart rate achieved was 78 bpm which is less than 85% of the maximum predicted heart rate and a blood pressure was 142/81. With Lexiscan patient complained of shortness of breath. Electrocardiogram: Resting electrocardiogram showed sinus rhythm, with Lexiscan there is less than 1.[address] segment depression noted from the baseline EKG. The EKG portion of the Lexiscan Myoview is nondiagnostic. Cardiac stress and resting SPECT images: Cardiac stress and resting SPECT images were obtained using technetium 99 Myoview 31.2 mCi stress and 10.3 mCi at rest. Gated SPECT further analysis of segmental wall motion and calculation of the ejection fraction also done. Cardiac stress and rest SPECT images show a fixed defect involving the distal anteroapical, apex and apical wall. This is consistent with area of myocardial scarring without significant jairo-infarct ischemia, either derived ejection fraction is 45% with marked anterior apical apical wall motion hypokinesis. Right ventricle is normal size and contractility. Conclusion: 1. The EKG portion of the Lexiscan Myoview is nondiagnostic. 2. Scintigraphic evidence of myocardial scarring involving the distal inferior apical wall and apex without significant jairo-infarct ischemia, computer derived ejection fraction 45% with segmental wall motion abnormality described above, right ventricle is normal size and contractility. 3. Abnormal Lexiscan Myoview study.
--- NOTE | 2019-01-11 14:24 | HMH.ITSHM ---
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 []pregabalin metoprolol losartan pantoprazole oxycodone fluxetine atorvastatin aspirin
== END ==
PROVIDERS: PCP Internal Medicine Adolescent Medicine; Visit Provider Nurse Practitioner Family
DX: E78.5 Hyperlipidemia, unspecified (principal); R06.02 Shortness of breath; R53.83 Other fatigue; R94.31 Abnormal electrocardiogram [ECG] [EKG]; Z95.0 Presence of cardiac pacemaker; I25.10 Atherosclerotic heart disease of native coronary artery without angina pectoris; I11.9 Hypertensive heart disease without heart failure; I73.9 Peripheral vascular disease, unspecified; Z95.1 Presence of aortocoronary bypass graft
CPT/HCPCS: 78452; 93017; 93306; A9502; J2785

== ENCOUNTER → 2019-04-07 13:02 | Outpatient (CLI) | payer MEDICARE, SELFPAY | PROVIDERS: PCP Internal Medicine Adolescent Medicine; Visit Provider Urology | DX: R06.02 Shortness of breath (principal); R40.0 Somnolence; R53.83 Other fatigue; G47.33 Obstructive sleep apnea (adult) (pediatric) | CPT/HCPCS: G0399 ==

== ENCOUNTER → 2019-05-08 11:55 | Outpatient (CLI) | payer MEDICARE, SELFPAY ==
[2019-05-09 08:14] LABS: Hep A Ab, IgM Negative (Negative); Hepatitis B Core Antibody IgM Negative (Negative); Hepatitis B Surface Antigen Negative (Negative)
[2019-05-09 10:32] LABS: Hepatitis C Antibody <0.1 s/co ratio (0.0-0.9)
== END ==
PROVIDERS: Visit Provider Internal Medicine Adolescent Medicine
DX: Z11.59 Encounter for screening for other viral diseases
CPT/HCPCS: 36415; 80074

== ENCOUNTER → 2019-08-07 10:52 | Outpatient (CLI) | payer MEDICARE, SELFPAY ==
[2019-08-07 11:14] LABS: Basophils % 0.4 % (0.1-2.0); Eosinophils # 0.3 K/mm3 (0.0-0.4); Eosinophils % 4.8 % (0.1-12.0); Hematocrit 46.8 % (42.0-52.0); Hemoglobin 14.7 g/dL (14.1-18.0); Lymphocytes # 1.8 K/mm3 (0.7-4.5); Lymphocytes % 28.3 % (10-50); Mean Corpuscular HGB Conc 31.4 g/dL (31.8-35.4); Mean Corpuscular Hemoglobin 30.2 pg (27.0-31.2); Mean Corpuscular Volume 96.5 fl (80-94); Mean Platelet Volume 8.7 fl (7.4-10.4); Monocytes # 0.6 K/mm3 (0.1-1.0); Monocytes % 9.5 % (1.7-9.3); Neutrophils # 3.6 K/mm3 (1.8-7.8); Platelet Count 135 K/mm3 (142-424); Red Blood Count 4.85 M/mm3 (4.60-6.20); Red Cell Distribution Width 14.4 % (11.5-17.5); White Blood Count 6.4 K/mm3 (4.8-10.8)
[2019-08-07 13:35] LABS: Alanine Aminotransferase 61 U/L (12-78); Albumin Level 3.6 gm/dL (3.4-5.0); Albumin/Globulin Ratio 1.1 (1.1-1.8); Alkaline Phosphatase 99 U/L (46-116); Anion Gap 13.4 mEq/L (5-15); Aspartate Amino Transferase 55 U/L (15-37); Bilirubin,Total 0.6 mg/dL (0.2-1.0); Blood Urea Nitrogen 12 mg/dL (7-18); Calcium 8.8 mg/dL (8.5-10.1); Carbon Dioxide 32 mmol/L (21.0-32.0); Chloride 104 mmol/L (98-107); Chol/HDL Ratio 1.9 (1-3.5); Cholesterol 78 mg/dL (140-200); Creatinine,Serum 0.89 mg/dL (0.70-1.30); Estimated Glomerular Filt Rate 87 ml/min (>60); GFR (African American) 105 ML/MIN (>60); Globulin 3.2 gm/dl (1.3-3.2); Glucose 63 mg/dL (74-106); HDL Cholesterol 41 mg/dL (27-67); LDL Cholesterol 24 mg/dL (0-130); Potassium 4.4 mmoL/L (3.5-5.1); Sodium 145 mmol/L (136-145); Total Protein,Serum 6.8 gm/dL (6.4-8.2); Triglycerides 65 mg/dL (30-200); VLDL Cholesterol 13 mg/dL (0-40)
== END ==
PROVIDERS: Visit Provider Internal Medicine Adolescent Medicine
DX: I25.10 Atherosclerotic heart disease of native coronary artery without angina pectoris (principal); E05.90 Thyrotoxicosis, unspecified without thyrotoxic crisis or storm
CPT/HCPCS: 36415; 80053; 80061; 84443; 85025

== ENCOUNTER → 2020-02-23 10:27 | Outpatient (CLI) | payer MEDICARE, SELFPAY | PROVIDERS: PCP Internal Medicine Adolescent Medicine; Visit Provider Nurse Practitioner Family | DX: I34.0 Nonrheumatic mitral (valve) insufficiency (principal); I35.1 Nonrheumatic aortic (valve) insufficiency; I42.9 Cardiomyopathy, unspecified; R06.02 Shortness of breath | CPT/HCPCS: 93306; 94762 ==

== ENCOUNTER 2020-02-27 22:18 | Observation (INO) | payer MEDICARE, MEDICAID, SELFPAY ==
[2020-02-27 22:30] VITALS: BP 109/62; PULSE 60; RESP 16; TEMP 36.7; O2SAT 95; BMI 22.8
[2020-02-27 22:33] VITALS: BP 107/62; BP 110/60
--- NOTE | 2020-02-27 22:34 | ECG_ITS ---
APPROVED REPORT Exam: Resting ECG HR:61 bpm ECG Measurements Heart Rate 61 AXES AR 144 P 6 QRSd 78 QRS 103 QT 404 T 30 QTc 406 <Conclusion> Normal sinus rhythm Rightward axis Low voltage QRS T wave abnormality, consider anterolateral ischemia Abnormal ECG Electronically signed by : Almas Lowry, 03/04/2020 17:16:23
--- NOTE | 2020-02-27 22:40 | XR_ITS ---
PROCEDURE: XR CHEST 2V CLINICAL HISTORY: dizzy Smoker, heart disease COMPARISON: No exams were available for comparison FINDINGS: Prior CABG. Bipolar pacemaker is present from left subclavian approach. Fibronodular changes are present in the right apex with COPD noted. Surgical clips are present overlying the right axillary region. No lobar consolidation or collapse is evident. There are epicardial pacing wires. Epidural stimulator device is noted No acute bony abnormalities. IMPRESSION: As above, no change with no acute finding Dictated by: Thiago Franklin MD 02/28/2020 07:46 Electronically signed by Thiago Franklin MD in [place] 02/28/2020 07:46
[2020-02-27 22:51] VITALS: BP 97/57; PULSE 67; RESP 18; O2SAT 94
[2020-02-27 23:23] LABS: Chloride 100 mmol/L (98-107); Potassium 4.2 mmoL/L (3.5-5.1); Sodium 135 mmol/L (136-145)
[2020-02-27 23:26] VITALS: BP 108/60; PULSE 64; RESP 18; O2SAT 96
[2020-02-27 23:26] LABS: Anion Gap 9.2 mEq/L (5-15); Blood Urea Nitrogen 15 mg/dl (9-20); Calcium 9.3 mg/dl (8.4-10.2); Carbon Dioxide 30 mmol/L (22.0-30.0); Creatinine Clearance Estimated 68 mL/min (50-200); Estimated Glomerular Filt Rate 68 ml/min (>60); GFR (African American) 82 ML/MIN (>60); Glucose 76 mg/dl (74-100)
[2020-02-27 23:30] LABS: Basophils % 0.6 % (0.1-2.0); Eosinophils # 0.3 K/mm3 (0.0-0.4); Eosinophils % 4.8 % (0.1-12.0); Hematocrit 43.3 % (42.0-52.0); Hemoglobin 14.9 g/dL (14.1-18.0); Lymphocytes # 2.1 K/mm3 (0.7-4.5); Lymphocytes % 35.6 % (10-50); Mean Corpuscular HGB Conc 34.4 g/dL (31.8-35.4); Mean Corpuscular Hemoglobin 32.1 pg (27.0-31.2); Mean Corpuscular Volume 93.4 fl (80-94); Mean Platelet Volume 8.7 fl (7.4-10.4); Monocytes # 0.5 K/mm3 (0.1-1.0); Monocytes % 8.6 % (1.7-9.3); Neutrophils % 50.5 % (37.0-80.0); Platelet Count 116 K/mm3 (142-424); Red Blood Count 4.64 M/mm3 (4.60-6.20); Red Cell Distribution Width 14.1 % (11.5-17.5); White Blood Count 5.9 K/mm3 (4.8-10.8)
[2020-02-27 23:37] LABS: Troponin I < 0.01 ng/ml (0.00-0.034)
[2020-02-27 23:40] VITALS: BP 111/60; PULSE 60; RESP 18; O2SAT 96
[2020-02-28] VITALS (16 sets, daily range): BP systolic 103–143; BP diastolic 61–90; PULSE 59–70; RESP 14–20; TEMP 36.6–36.8; O2SAT 92–98; BMI 23.7; BMI 23.6
--- NOTE | 2020-02-28 | IR_ITS ---
APPROVED REPORT Patient Location: Inpatient Associate: MARCELINA Petersen RT (R) PROCEDURES Left heart catheterization Left ventriculogram Selective coronary angiogram Selective engage in left internal mammary artery Selective engagement of the saphenous vein graft to the circumflex artery Selective engage in the saphenous vein graft to the coronary INDICATION Unstable angina, Coronary disease, History of coronary bypass surgery, Syncope Informed consent was obtained prior to the procedure. COMPLICATIONS none Estimated Blood Loss: less than 10 mls TECHNIQUE One percent lidocaine used to anesthetize the right groin. The right femoral artery was accessed via the Seldinger technique and a 5 Syri[place] sheath was placed in the right femoral artery. A JL 4, JR4 catheter were used to perform left heart catheterization, left ventriculogram selective coronary angiography as well as selective engagement of the 2 vein grafts and the left internal mammary artery. At the end of the procedure the patient was transferred to the postop holding area in stable condition for sheath removal. ANGIOGRAPHIC RESULTS The left main artery Is small caliber but normal The left anterior descending artery Proximally occluded The circumflex artery Gives rise to a small ramus intermedius which is patent and a small circumflex artery which is occluded at mid vessel not giving off any substantive obtuse marginal arteries The right coronary artery Is a dominant vessel severely diseased in the proximal segment and occluded at mid vessel The MELENDREZ ventriculogram reveals Mid anterior apical akinesis estimated ejection fraction 30% The left ventricular end-diastolic pressure Millimeters mercury The left internal mammary artery is atretic and occluded Saphenous vein graft to the right coronary artery is widely patent. The [place] right coronary artery is small caliber with diffuse vasculopathic small vessel disease The saphenous vein graft to the circumflex artery is a Y graft. The superior branch of the graft supplies the largest amount of circumflex myocardium. The graft is patent with moderate diffuse atheromatous plaque creating multiple 30 to 40% stenoses. 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 Given patient's LV dysfunction with combined syncope I would recommend converting pacemaker to an AICD. 2. An official echocardiogram will be obtained however given patient's ischemic cardiomyopathy aneurysmal akinetic area combined with syncope I believe this is an indication to proceed with AICD placement 3. Standard therapy for ischemic heart disease 4. Standard therapy for systolic heart failure Electronically signed by : Gurvinder Tan, 02/28/2020 14:04:46
--- NOTE | 2020-02-28 00:17 | HMH.EDDIZZ ---
ED Disposition Clinical Impression: Near syncope, Cardiac pacemaker in situ Disposition: Admitted as Observation Condition on Discharge: Good Referrals: Almas Lowry MD [Primary Care Provider] - - Critical Care Critical Care Time: No Attestation: On 02/27/20, the high probability of a clinically significant, sudden or life threatening deterioration of the following system(s) required my full and direct attention, intervention and personal management. The time I documented below is in addition to time spent performing reported procedures but includes the following listed in this critical care notation. Medical Decision Making - Medical Records Medical records reviewed: Yes: I reviewed the patient's medical records. - Tony Inquiry Pt receiving controlled substance: No Vital Signs: 02/27/20 22:30 02/27/20 22:33 02/27/20 22:51 Temperature 98.0 F Temperature Source Oral Pulse Rate [Right] 60 67 Respiratory Rate 16 18 Blood Pressure [Left Arm] 110/60 Blood Pressure [Right Arm] 109/62 L 107/62 L 97/57 L Blood Pressure Mean [Left Arm] 76 Blood Pressure Mean [Right Arm] 77 77 70 Blood Pressure Source [Left Arm] Manual Cuff/ Auscultation Blood Pressure Source [Right Arm] Automatic Cuff Manual Cuff/ Auscultation Blood Pressure Position [Right Arm] Supine 02 Sat by Pulse Oximetry 95 94 L Oxygen Delivery Method Room Air Room Air 02/27/20 23:26 02/27/20 23:40 02/28/20 00:08 Temperature Temperature Source Pulse Rate [Right] 64 60 60 Respiratory Rate 18 18 18 Blood Pressure [Left Arm] Blood Pressure [Right Arm] 108/60 L 111/60 103/81 L Blood Pressure Mean [Left Arm] Blood Pressure Mean [Right Arm] 76 77 88 Blood Pressure Source [Left Arm] Blood Pressure Source [Right Arm] Blood Pressure Position [Right Arm] 02 Sat by Pulse Oximetry 96 96 96 Oxygen Delivery Method Room Air Room Air Room Air - Lab Data Lab results reviewed: Yes: I reviewed the patient's lab results. Lab Results 02/27/20 22:52: WBC 5.9, RBC 4.64, Hgb 14.9, Hct 43.3, MCV 93.4, MCH 32.1 H, MCHC 34.4, RDW 14.1, Plt Count 116 L, MPV 8.7, Neut % (Auto) 50.5, Lymph % (Auto) 35.6, [place] % (Auto) 8.6, Eos % (Auto) 4.8, Baso % (Auto) 0.6, Neut # (Auto) 3.0, Lymph # (Auto) 2.1, [place] # (Auto) 0.5, Eos # (Auto) 0.3, Baso # (Auto) 0.0 02/27/20 22:52: Sodium 135 L, Potassium 4.2, Chloride 100, Carbon Dioxide 30, Anion Gap 9.2, BUN 15, Creatinine 1.10, Estimated Creat Clear 68, Estimated GFR 68, Est GFR ( Amer) 82, Glucose 76, Calcium 9.3, Troponin I < 0.01 Result diagrams: 02/27/20 22:52 02/27/20 22:52 Orders (Tests/Meds): ED MEDICATIONS Generic Name Dose Route Start Last Admin Trade Name Freq PRN Reason Stop Dose Admin Sodium Chloride 1,000 mls @ 999 mls/hr 02/27/20 22:45 02/27/20 22:54 Sod Chlor 0.9% 1000ml Bag IV 02/27/20 23:45 999 mls/hr .Q1H1M ROGELIO Administration ORDERS Category Date Time Status XR chest 2V Stat Exams 02/27/20 22:40 Taken Troponin I Q3H Lab 02/28/20 01:45 Ordered Troponin I Q3H Lab 02/28/20 04:45 Ordered - ECG Data Tracing #1 Arrhythmias present: other (paced) - Physician Consults Physician Consulted: roberto Reason -: Admission Dizzy HPI - General Chief Complaint: Dizziness Stated Complaint: BP low,dizzy Time Seen by Provider: 02/28/20 00:17 Mode of Arrival: Ambulatory Source of Information: Patient, Relative, Medical Record Limitations: No Limitations Description of Symptoms (Recalled from ER Triage Doc. by RN): Pt states he had a dizzy spell tonight, daughter states she took a manual pressure and it was hypotensive - History of Present Illness HPI Narrative: 20 min episode of felt dizzy with almost syncope and low bp at home - no chest pain - pacemaker x 2yrs and cabg in 2003 and 2004- MD complaint: dizziness, near syncope Onset (ago): hour(s) Timing: sudden onset, now resolved Description: lightheadedness History of si
--- NOTE | 2020-02-28 00:18 | PC.NURSE ---
dr roberto gibson
--- NOTE | 2020-02-28 03:28 | PC.NURSE ---
LATE ENTRY -PT ARRIVED TO THE FLOOR FROM ED @ 0122.
[2020-02-28 03:32] LABS: Troponin I < 0.01 ng/ml (0.00-0.034)
[2020-02-28 05:33] LABS: Chloride 105 mmol/L (98-107); Potassium 4.2 mmoL/L (3.5-5.1); Sodium 136 mmol/L (136-145)
[2020-02-28 05:35] LABS: Basophils % 0.5 % (0.1-2.0); Eosinophils # 0.2 K/mm3 (0.0-0.4); Eosinophils % 4.8 % (0.1-12.0); Hematocrit 39.8 % (42.0-52.0); Hemoglobin 13.5 g/dL (14.1-18.0); Lymphocytes # 2.1 K/mm3 (0.7-4.5); Lymphocytes % 41.7 % (10-50); Mean Corpuscular Hemoglobin 31.4 pg (27.0-31.2); Mean Corpuscular Volume 92.3 fl (80-94); Mean Platelet Volume 8.9 fl (7.4-10.4); Monocytes # 0.4 K/mm3 (0.1-1.0); Monocytes % 8.2 % (1.7-9.3); Neutrophils # 2.3 K/mm3 (1.8-7.8); Neutrophils % 44.7 % (37.0-80.0); Platelet Count 106 K/mm3 (142-424); Red Blood Count 4.32 M/mm3 (4.60-6.20); Red Cell Distribution Width 14.2 % (11.5-17.5); White Blood Count 5.1 K/mm3 (4.8-10.8)
[2020-02-28 05:36] LABS: Anion Gap 7.2 mEq/L (5-15); Blood Urea Nitrogen 13 mg/dl (9-20); Carbon Dioxide 28 mmol/L (22.0-30.0); Creatinine Clearance Estimated 77 mL/min (50-200); Estimated Glomerular Filt Rate 86 ml/min (>60); GFR (African American) 104 ML/MIN (>60)
[2020-02-28 05:37] LABS: Calcium 8.8 mg/dl (8.4-10.2); Glucose 84 mg/dl (74-100); Magnesium 1.7 mg/dl (1.6-2.3)
[2020-02-28 06:17] LABS: Troponin I < 0.01 ng/ml (0.00-0.034)
--- NOTE | 2020-02-28 07:26 | HMH.PHAVTE ---
[facility] Pharmacy VTE Monitoring - Patient Demographics Admission date: 02/28/20 Report Date: 02/28/20 Time: 07:26 Allergies/Adverse Reactions: Patient Allergies adhesive tape [ADHESIVE TAPE] Allergy (Intermediate, Verified 02/20/20 10:32) I-RASH duloxetine [From CYMBALTA] Adverse Reaction (Unknown, Verified 02/20/20 10:32) Height: 1.73 m Weight: 70.505 kg Patient Problems: Current Active Problems Near syncope (Acute) Cardiac pacemaker in situ (Chronic) - VTE Risk Labs: VTE Related Lab Results Hgb 13.5 g/dL (14.1-18.0) L 02/28/20 05:00 Hct 39.8 % (42.0-52.0) L 02/28/20 05:00 Plt Count 106 K/mm3 (142-424) L 02/28/20 05:00 BUN 13 mg/dl (9-20) 02/28/20 05:00 Creatinine 0.90 mg/dl (0.66-1.25) 02/28/20 05:00 Estimated Creat Clear 77 mL/min (50-200) 02/28/20 05:00 VTE Score: 4 Clinical Trial Participant: No - Prophylaxis VTE Prophylaxis Ordered?: Yes Types of VTE Prophylaxis: TEDS Knee High
--- NOTE | 2020-02-28 07:46 | HMH.PHAINT ---
HOME MEDICATION RECONCILIATION COMPLETED USING LIST FROM HOME PHARMACY
--- NOTE | 2020-02-28 08:08 | PC.NURSE ---
A&OX4. PT TOLERATING RA WELL THIS SHIFT. PT UP WITH STANDBY ASSIST. PT HAS HAD NO C/O DIZZINESS, CP, OR SOA THIS SHIFT. PT HAS RESTED COMFORTABLY IN BED T/O SHIFT. PT ONLY C/O BACK PAIN, TREATED WITH OXYCODONE PER OCT. ON REASSESSMENT PT RESTING IN BED. VSS T/O SHIFT.
--- NOTE | 2020-02-28 08:47 | HMH.HP ---
*Admission Date: 02/28/20 *Chief complaint: Dizziness/near syncope *History of present illness: 59-year-old white male with history of coronary disease, pacemaker implantation secondary to sick sinus syndrome, who was at home last night and felt several minutes of dizziness that he described as standing on a boat and feeling like he was going to pass out. He did not actually pass out but felt very unsteady. His daughter took his pulse and blood pressure, noted that both of them were low with diastolic pressure in the 30s according to patient's memory. He felt a little better and came to the emergency department. In the emergency department patient was noted to be at his baseline vis-?-vis blood pressure and pulse rate, but was admitted with the possibility of pacemaker malfunction for pacemaker interrogation. This morning he feels back to baseline. [facility] History I have reviewed the patient's past medical history: Yes Medical History: Reports:: Coronary Artery Disease, Hyperlipidemia, Hypertension, Internal Pacemaker, Lung Disease, Kidney Stones, Myocardial Infarction Denies:: Cancer, Diabetes Mellitus Type 1, Diabetes Mellitus Type 2, MRSA, Seizures *Have you ever received a pneumonia vaccine?: Yes *Have you received a flu vaccine this season?: Yes Other Medical History: Reports: Arthritis, Cataracts, Other Other Surgeries: Yes: CABG, Cardiac Catheterization, Colonoscopy, EGD, Hernia Repair, Open Heart Surgery, Pacemaker Amputation: No - *Social History Educational Level: Completed High School Smoking Status: Current every day smoker Tobacco Type: cigarettes # Packs/Day (cigarettes): 1 Alcohol Intake: never Alcohol Intake Frequency:: other Substance Use Type: denies use *Occupational Status:: retired Housing: house Household Members: spouse *Travel in the last 8 weeks: None Family Hx:: Asthma, Cancer, Diabetes, Heart Attack, Hypertension, Thyroid Disorder Review of Systems - Review of Systems Review of systems:: pertinent systems reviewed and negative unless documented below Meds Home Medications Medication Instructions Recorded Confirmed Type Aspirin 81 mg PO DAILY 10/07/17 02/28/20 History Atorvastatin Calcium [Lipitor 80mg 80 mg PO HS 10/07/17 02/28/20 History Tab] Fluoxetine HCl 40 mg PO HS 10/07/17 02/28/20 History Pantoprazole Sodium [Protonix 40mg 40 mg PO DAILY 10/07/17 02/28/20 History tablet] tizanidine 2 mg tablet 2 mg PO HSP PRN tab 02/20/20 02/28/20 History Losartan Potassium [Cozaar 25mg 25 mg PO DAILY 02/27/20 02/28/20 History Tablets] Albuterol Sulfate [Albuterol 1 puff IH NEEDED PRN 02/28/20 02/28/20 History Sulfate Hfa] Metoprolol Succinate [Metoprolol 25 mg PO HS 02/28/20 02/28/20 History Succinate 25mg Tablet*] Oxycodone HCl [Oxycodone 5mg tab 15 mg PO Q6H 02/28/20 02/28/20 History (IR)] Allergies Allergy/AdvReac Type Severity Reaction Status Date / Time adhesive tape [ADHESIVE TAPE] Allergy Intermediate I-RASH Verified 02/20/20 10:32 duloxetine [From CYMBALTA] AdvReac Unknown Verified 02/20/20 10:32 Exam Vital signs and Labs for Last 24 Hours: Temp Pulse Resp BP Pulse Ox 97.9 F 60 16 143/62 H 94 L 02/28/20 08:00 02/28/20 08:00 02/28/20 08:00 02/28/20 08:00 02/28/20 08:00 Laboratory Results - last 24 hr 02/27/20 22:52: WBC 5.9, RBC 4.64, Hgb 14.9, Hct 43.3, MCV 93.4, MCH 32.1 H, MCHC 34.4, RDW 14.1, Plt Count 116 L, MPV 8.7, Neut % (Auto) 50.5, Lymph % (Auto) 35.6, [place] % (Auto) 8.6, Eos % (Auto) 4.8, Baso % (Auto) 0.6, Neut # (Auto) 3.0, Lymph # (Auto) 2.1, [place] # (Auto) 0.5, Eos # (Auto) 0.3, Baso # (Auto) 0.0 02/27/20 22:52: Sodium 135 L, Potassium 4.2, Chloride 100, Carbon Dioxide 30, Anion Gap 9.2, BUN 15, Creatinine 1.10, Estimated Creat Clear 68, Estimated GFR 68, Est GFR ( Amer) 82, Glucose 76, Calcium 9.3, Troponin I < 0.01 02/28/20 01:50: Troponin I < 0.01 02/28/20 05:00: Troponin I < 0.01 02/28/20 05:00: WBC 5.1, RBC 4.
--- NOTE | 2020-02-28 09:13 | HMH.CNCARD ---
<Veronica Lima - Last Filed: 02/28/20 09:19> History of Present Illness Consult date: 02/28/20 Requesting physician: Almas Lowry Consult reason: hypotension Chief complaint: near syncope Additional Medical History:: 1. Coronary artery disease status post 5 vessel coronary artery bypass grafting [facility], 06/2017 1. Chronic occlusion of the proximal LAD with occluded MONK graft and akinetic anterior apical aneurysmal wall as described above 2. Large regional wall motion abnormality with only mildly reduced ejection fraction at 45-50% 3. Normal left ventricular end-diastolic pressure 4. Patent saphenous vein graft to the dominant right coronary artery 5. Patent saphenous vein graft which splits in a Y manner and supplies the second and third obtuse marginal artery. The long stenosis in the vein graft supplying the third obtuse marginal artery matches the caliber of the [place] third obtuse marginal artery therefore I do not believe stenting will benefit or improved flow to the second obtuse marginal artery PLAN: 1. Continue medical management 2. Antianginal medications 3. LDL less than 55 4. Cardiac rehabilitation 5. Aggressive risk factor modification B. Myoview stress test, 12/2018 1. The EKG portion of the Lexiscan Myoview is nondiagnostic. 2. Scintigraphic evidence of myocardial scarring involving the distal inferior apical wall and apex without significant jairo-infarct ischemia, computer derived ejection fraction 45% with segmental wall motion abnormality described above, right ventricle is normal size and contractility. 3. Abnormal Lexiscan Myoview study. 2. Cardiomyopathy A. Echo, 09/2017, 1. Mildly enlarged left atrium, normal left ventricular size, visually estimated ejection fraction 40-45% with multiple segmental wall motion abnormality described above, diastolic parameters are inconclusive. 2. Trace aortic, mild mitral and tricuspid regurgitation, calculated right ventricular systolic pressure is 46 mmHg consistent with moderate pulmonary hypertension 3. No significant pericardial effusion noted. B. Echo 12/2018, 1. Mildly enlarged left atrium, normal left ventricular size, mild concentric left ventricular hypertrophy, visually estimated ejection fraction 45% with segmental wall motion abnormality described above, grade 1 diastolic dysfunction seen without tissue Doppler evidence of raised left atrial pressure. 2. Moderate aortic, moderate mitral and mild tricuspid regurgitation. 3. No significant pericardial effusion noted. C. Echo 01/2020, results pending 3. Moderate mitral regurgitation 4. Moderate aortic insufficiency 5. Peripheral arterial disease 6. Hypertensive heart disease 7. Hypertension 8. Hyperlipidemia 9. Cardiac pacemaker in situ History of present illness: This is a 59-year-old gentleman who presented to the emergency department with complaints of dizziness and near syncope. The patient was evaluated in the cardiology office last week and felt great. He states that yesterday he got significantly dizzy around 7 PM and thought he was going to pass out. The patient states that he did not lose consciousness but he felt like he almost did. He states that his daughter was with him and checked his blood pressure and he was hypotensive. He states that he has not felt well since that time. He denies any chest pain or pressure. Some occasional shortness of breath on exertion. He states that this does improve with rest. There are no associated symptoms. He states that his fatigue had improved but since his near syncopal episode he just has not felt like himself. He denies any edema, fever, chills, nausea, vomiting, diarrhea, PND or orthopnea. The patient does have known coronary artery disease and is status post 5 vessel coronary artery bypass grafting. His last cardiac catheterization in 2016 showed patent coronary artery disease
[2020-02-28 14:55] LABS: Basophils % 0.5 % (0.1-2.0); Eosinophils # 0.2 K/mm3 (0.0-0.4); Eosinophils % 4.6 % (0.1-12.0); Hemoglobin 13.5 g/dL (14.1-18.0); Lymphocytes # 1.7 K/mm3 (0.7-4.5); Lymphocytes % 37.2 % (10-50); Mean Corpuscular HGB Conc 33.7 g/dL (31.8-35.4); Mean Corpuscular Hemoglobin 31.2 pg (27.0-31.2); Mean Corpuscular Volume 92.8 fl (80-94); Mean Platelet Volume 8.9 fl (7.4-10.4); Monocytes # 0.4 K/mm3 (0.1-1.0); Neutrophils # 2.2 K/mm3 (1.8-7.8); Neutrophils % 48.6 % (37.0-80.0); Platelet Count 96 K/mm3 (142-424); Red Blood Count 4.31 M/mm3 (4.60-6.20); Red Cell Distribution Width 13.9 % (11.5-17.5); White Blood Count 4.6 K/mm3 (4.8-10.8)
[2020-02-28 15:05] LABS: Chloride 103 mmol/L (98-107); Potassium 4.6 mmoL/L (3.5-5.1); Sodium 136 mmol/L (136-145)
[2020-02-28 15:08] LABS: Anion Gap 7.6 mEq/L (5-15); Blood Urea Nitrogen 12 mg/dl (9-20); Calcium 8.5 mg/dl (8.4-10.2); Carbon Dioxide 30 mmol/L (22.0-30.0); Creatinine Clearance Estimated 77 mL/min (50-200); Estimated Glomerular Filt Rate 76 ml/min (>60); GFR (African American) 92 ML/MIN (>60); Glucose 68 mg/dl (74-100)
--- NOTE | 2020-02-28 16:24 | PC.NURSE ---
PATIENT ARRIVED ON FLOOR FROM DATA ENTRY SUPERVISOR AT 1445, LUNGS CLEAR, PULSES EQUAL, A&O X4. PATIENT DRANK WATER AND TOLERATED WELL. PATIENT URINATED IN URINAL, NO ISSUES. OUTPUT 400ML. PATIENT HAS RESTED WELL. DRESSING ON RIGHT GROIN CLEAN, DRY AND INTACT. NO OTHER CONCERNS AT THIS TIME.
--- NOTE | 2020-02-28 19:10 | PC.NURSE ---
report given to juan miguel
[2020-02-29] VITALS (19 sets, daily range): BP systolic 107–159; BP diastolic 37–82; PULSE 60–77; RESP 14–21; TEMP 36.4–37; O2SAT 92–97; BMI 23.9
--- NOTE | 2020-02-29 | IR_ITS ---
APPROVED REPORT Patient Location: Outpatient [employer]ist: MARCELINA Bethea RT (R) PROCEDURES 1. Pocket Revision 2. Removal of previous pacemaker generator. 3. Extraction of the chronic right ventricular lead. 4. Placement of a ventricular sensing, pacing and shocking coil in the right ventricular apex. 5. Permanent AICD placement. INDICATION Systolic Congestive Heart Failure, ejection < 35%, [place] Heart Assoication Class 3 Congestive Heart Failure, QRS >120ms Informed consent was obtained prior to the procedure. COMPLICATIONS None Estimated Blood Loss: less than 10ml TECHNIQUE 1% Lidocaine with epinephrine used to anesthetized the left anterior aspect of the chest. Scalpel was used to make the initial cutaneous incision while electrocautery was used to dissect down tinto the fascia. The fascia was lifted off the pectoralis muscle and digitally manipulated creating a pocket for the defibrillator. The patient was then placed in Trendelenburg position and the subclavian vein was accessed via the Selinger technique. A 8 [place] sheath was placed under fluoroscopic guidance into the subclavian vein. The dilator was removed from the sheath. Using fluoroscopic guidance, the ventricular lead was placed into the right ventricular apex, screwed and secured into place. Electronic interrogation proved acceptable thresholds and voltage within the lead. Using 3-0 silk, the ventricular lead was then secured into place and sheath peeled away. The chronic right ventricular lead was extracted. The new generator was screwed into the chronic right atrial leads, new right ventricular lead and secured into place. Electronic interrogation proved acceptable thresholds and voltage within the lead. 1 gram of Ancef was used to flush the pocket. The defibrillator then secured to the fascia. Monocryl was used to close the subcutaneous layers while bobby were used to close the cutaneous layer. A pressure dressing was placed and the patient was transferred to the postop holding area in stable condition for postoperative care. INTERROGATION Extracted: Generator: [place] [employer] Model number: [id number] Serial number: [id number] Right Ventricular lead: model number: [id number] SERIAL NUMBER: [id number] New implant: RV Lead Model: Hammett [employer] 0675 RV Lead Serial No: [id number] Generator Lead Model: [id number] Generator Lead Serial No: [id number] Chronic lead: RA Lead model number: [id number] RA lead Serial number: [id number] Device Measurements: RA Lead: intrinsic 4.0 mV Threshold: 1.0V Impedence: 540 Ohms RV Lead: Intrinsic: 20.0 mV Threshold: 0.8 V Impedence: 1245 Ohms Parameters: Mode: DDDR Base/Max: 60/130ppm VF: 220bpm, 5.0 sec, quick convert, 41 J x 8 VT: 170bpm, 10.0 sec, ATP, 41J x 6 VT-1: 150 bpm, 10.0 sec, monitor only IMPRESSION 1. Successful Pocket Revision 2. Successful removal of previous pacemaker generator. 3. Successful extraction of the chronic right ventricular lead. 4. Successful Placement of a ventricular sensing, pacing and shocking coil in the right ventricular apex. 5. Successful Permanent AICD placement. PLAN 1. Post op wound care. Electronically signed by : Gurvinder Tan, 03/06/2020 09:36:59
--- NOTE | 2020-02-29 03:05 | PC.NURSE ---
A&Ox4 Post cath incision to right groin area is soft with no signs of hematoma, dressing c/d/i. distal pulse WNL. paced rhythm with PVCs on telemetry. Pt NPO for dual lead defibrillator placement today. Pt's daughter at bedside. pt has rested quietly this shift.
[2020-02-29 06:27] LABS: Chloride 104 mmol/L (98-107)
[2020-02-29 06:28] LABS: Potassium 5.1 mmoL/L (3.5-5.1); Sodium 139 mmol/L (136-145)
[2020-02-29 06:31] LABS: Anion Gap 8.1 mEq/L (5-15); Blood Urea Nitrogen 13 mg/dl (9-20); Calcium 9.3 mg/dl (8.4-10.2); Carbon Dioxide 32 mmol/L (22.0-30.0); Creatinine Clearance Estimated 79 mL/min (50-200); Estimated Glomerular Filt Rate 76 ml/min (>60); GFR (African American) 92 ML/MIN (>60); Glucose 83 mg/dl (74-100)
[2020-02-29 06:45] LABS: Basophils % 0.7 % (0.1-2.0); Eosinophils # 0.2 K/mm3 (0.0-0.4); Eosinophils % 3.6 % (0.1-12.0); Hematocrit 41.8 % (42.0-52.0); Hemoglobin 14.1 g/dL (14.1-18.0); Lymphocytes # 1.7 K/mm3 (0.7-4.5); Lymphocytes % 33.8 % (10-50); Mean Corpuscular HGB Conc 33.7 g/dL (31.8-35.4); Mean Corpuscular Hemoglobin 31.1 pg (27.0-31.2); Mean Corpuscular Volume 92.3 fl (80-94); Mean Platelet Volume 8.8 fl (7.4-10.4); Monocytes # 0.5 K/mm3 (0.1-1.0); Monocytes % 9.6 % (1.7-9.3); Neutrophils # 2.7 K/mm3 (1.8-7.8); Neutrophils % 52.3 % (37.0-80.0); Platelet Count 110 K/mm3 (142-424); Red Blood Count 4.53 M/mm3 (4.60-6.20); Red Cell Distribution Width 14.1 % (11.5-17.5); White Blood Count 5.1 K/mm3 (4.8-10.8)
--- NOTE | 2020-02-29 07:50 | HMH.PNCARD ---
Subjective Date: 02/29/20 Time: 07:50 Principal diagnosis: Near syncope Interval history: 59 yo WM in bed in NAD. Fatigue continues. Cath results reviewed. Questions answered regarding AICD procedure. Exam Vital signs and Labs for Last 24 Hours: Temp Pulse Resp BP Pulse Ox 97.5 F L 62 18 142/57 H 93 L 02/29/20 07:44 02/29/20 07:44 02/29/20 07:44 02/29/20 07:44 02/29/20 07:44 Laboratory Results - last 24 hr 02/28/20 14:45: WBC 4.6 L, RBC 4.31 L, Hgb 13.5 L, Hct 40.0 L, MCV 92.8, MCH 31.2, MCHC 33.7, RDW 13.9, Plt Count 96 L, MPV 8.9, Neut % (Auto) 48.6, Lymph % (Auto) 37.2, [place] % (Auto) 9.0, Eos % (Auto) 4.6, Baso % (Auto) 0.5, Neut # (Auto) 2.2, Lymph # (Auto) 1.7, [place] # (Auto) 0.4, Eos # (Auto) 0.2, Baso # (Auto) 0.0 02/28/20 14:45: Sodium 136, Potassium 4.6, Chloride 103, Carbon Dioxide 30, Anion Gap 7.6, BUN 12, Creatinine 1.00, Estimated Creat Clear 77, Estimated GFR 76, Est GFR ( Amer) 92, Glucose 68 L, Calcium 8.5 02/29/20 05:45: WBC 5.1, RBC 4.53 L, Hgb 14.1, Hct 41.8 L, MCV 92.3, MCH 31.1, MCHC 33.7, RDW 14.1, Plt Count 110 L, MPV 8.8, Neut % (Auto) 52.3, Lymph % (Auto) 33.8, [place] % (Auto) 9.6 H, Eos % (Auto) 3.6, Baso % (Auto) 0.7, Neut # (Auto) 2.7, Lymph # (Auto) 1.7, [place] # (Auto) 0.5, Eos # (Auto) 0.2, Baso # (Auto) 0.0 02/29/20 05:45: Sodium 139, Potassium 5.1, Chloride 104, Carbon Dioxide 32 H, Anion Gap 8.1, BUN 13, Creatinine 1.00, Estimated Creat Clear 79, Estimated GFR 76, Est GFR ( Amer) 92, Glucose 83 D, Calcium 9.3 I & O for Last 24 hours: Intake & Output 02/26/20 02/27/20 02/28/20 02/29/20 11:59 11:59 11:59 11:59 Intake Total 1403 / 1403 732 / 732 Output Total 1650 / 1650 Balance 1403 / 1403 -918 / -918 Weight 155 lb 7 oz 158 lb 2 oz - *Routine HEENT Exam Head: Present: normocephalic Eye: Present: EOMI, PERRL ENT: Present: mucous membranes moist - *Routine Respiratory Exam Present: CTA bilaterally. Absent: accessory muscle use, rales, rhonchi, wheezes - *Routine Cardiovascular Exam Present: RRR. Absent: murmur, gallop, rubs - *Routine Extremities Exam Absent: edema, calf tenderness - *Routine Neurological Exam Present: alert, oriented X3, moving all extremities Progress Note: A&P (1) Near syncope Status: Acute Current Visit: Yes (2) Abnormal cardiovascular stress test Status: Acute Current Visit: Yes (3) CAD (coronary artery disease) Status: Chronic Current Visit: No (4) Fatigue Status: Chronic Current Visit: No (5) HHD (hypertensive heart disease) Status: Chronic Current Visit: No (6) HLD (hyperlipidemia) Status: Chronic Current Visit: No (7) History of coronary artery bypass graft Status: Chronic Current Visit: No (8) Moderate aortic insufficiency Status: Chronic Current Visit: No (9) Moderate mitral valve regurgitation Status: Chronic Current Visit: No (10) PAD (peripheral artery disease) Status: Chronic Current Visit: No (11) SOB (shortness of breath) Status: Chronic Current Visit: No (12) Cardiac pacemaker in situ Status: Chronic Current Visit: Yes Assessment and Plan for All Diagnoses:: 1. Upgrading to AICD today due to symptomatic (near syncope), severe cardiomyopathy (LVEF dropped from 45% to 30%) despite goal directed medical therapy. Official Echo report pending at this time. Continue losartan and metoprolol. No significant arrhythmias noted on pacer interrogation yesterday. No arrhythmias noted on telemetry. 2. CAD with history of CABG. Cath yesterday with atretic MONK and patent SVG to RCA and patent Y graft to Circ/OM. EF 30%. Continue ASA therapy. 3. HLD, on statin 4. HTN, controlled 5. History of moderate MR, official echo pending 6. Chronic systolic CHF, clinically stable. No acute exacerbation this admission. CXR negative. Recommend keeping overnight and discharge in AM if stable.
--- NOTE | 2020-02-29 08:05 | PC.NURSE ---
PA WITH CARDIOLOGY TEE LINCOLN AT BEDSIDE SPEAKING WITH PATIENT AND PATIENTS DAUGHTER ABOUT PROCEDURE TODAY. CONSENT OBTAINED AND PLACED ON CHART. PA GAVE OK TO GIVE AM MEDS-ADMIN PER OCT.
--- NOTE | 2020-02-29 09:04 | HMH.ACPN2 ---
Internal Medicine - PN: Subj *Date: 02/29/20 *Time: 09:15 Interval history: Did well overnight, still remains fatigued but stable. No acute events. Cardiology planning to take patient to replace his pacer and add a defibrillator. Denies shortness of breath, chest pain, nausea, vomiting. Alert and oriented. Otherwise well. Vital stable Exam Vital signs and Labs for Last 24 Hours: Temp Pulse Resp BP Pulse Ox 97.5 F L 62 18 142/57 H 93 L 02/29/20 07:44 02/29/20 07:44 02/29/20 07:44 02/29/20 07:44 02/29/20 07:53 Laboratory Results - last 24 hr 02/28/20 14:45: WBC 4.6 L, RBC 4.31 L, Hgb 13.5 L, Hct 40.0 L, MCV 92.8, MCH 31.2, MCHC 33.7, RDW 13.9, Plt Count 96 L, MPV 8.9, Neut % (Auto) 48.6, Lymph % (Auto) 37.2, [place] % (Auto) 9.0, Eos % (Auto) 4.6, Baso % (Auto) 0.5, Neut # (Auto) 2.2, Lymph # (Auto) 1.7, [place] # (Auto) 0.4, Eos # (Auto) 0.2, Baso # (Auto) 0.0 02/28/20 14:45: Sodium 136, Potassium 4.6, Chloride 103, Carbon Dioxide 30, Anion Gap 7.6, BUN 12, Creatinine 1.00, Estimated Creat Clear 77, Estimated GFR 76, Est GFR ( Amer) 92, Glucose 68 L, Calcium 8.5 02/29/20 05:45: WBC 5.1, RBC 4.53 L, Hgb 14.1, Hct 41.8 L, MCV 92.3, MCH 31.1, MCHC 33.7, RDW 14.1, Plt Count 110 L, MPV 8.8, Neut % (Auto) 52.3, Lymph % (Auto) 33.8, [place] % (Auto) 9.6 H, Eos % (Auto) 3.6, Baso % (Auto) 0.7, Neut # (Auto) 2.7, Lymph # (Auto) 1.7, [place] # (Auto) 0.5, Eos # (Auto) 0.2, Baso # (Auto) 0.0 02/29/20 05:45: Sodium 139, Potassium 5.1, Chloride 104, Carbon Dioxide 32 H, Anion Gap 8.1, BUN 13, Creatinine 1.00, Estimated Creat Clear 79, Estimated GFR 76, Est GFR ( Amer) 92, Glucose 83 D, Calcium 9.3 I & O for Last 24 hours: Intake & Output 02/26/20 02/27/20 02/28/20 02/29/20 23:59 23:59 23:59 23:59 Intake Total 1403 / 1503 732 / 732 Output Total 1650 / 1650 350 / 350 Balance -247 / -147 382 / 382 Weight 68.039 kg 70.505 kg 71.724 kg Narrative: - *Routine HEENT Exam Head: Present: normocephalic Eye: Present: EOMI, PERRL ENT: Present: mucous membranes moist - *Routine Neck Exam Present: supple. Absent: lymphadenopathy - *Routine Respiratory Exam Present: CTA bilaterally - *Routine Cardiovascular Exam Present: RRR - *Routine Abdominal Exam Present: soft, normoactive bowel sounds. Absent: tenderness - *Routine Extremities Exam Absent: cyanosis, clubbing, edema - *Routine Skin Exam Present: warm. Absent: rash - *Routine Neurological Exam Present: alert, oriented X3 Assessment and Plan (1) Near syncope Current visit: Yes Status: Acute Category: Medical Code(s): R55 - Syncope and collapse (2) Abnormal cardiovascular stress test Current visit: Yes Status: Acute Category: Medical Code(s): R94.39 - Abnormal result of other cardiovascular function study (3) CAD (coronary artery disease) Current visit: No Status: Chronic Qualifiers: Coronary Disease-Associated Artery/Lesion type: [place] artery [place] vs. transplanted heart: [place] heart Associated angina: without angina Qualified Code(s): I25.10 - Atherosclerotic heart disease of [place] coronary artery without angina pectoris Category: Medical Code(s): I25.10 - Atherosclerotic heart disease of [place] coronary artery without angina pectoris (4) Fatigue Current visit: No Status: Chronic Qualifiers: Fatigue type: unspecified Qualified Code(s): R53.83 - Other fatigue Category: Medical Code(s): R53.83 - Other fatigue (5) HHD (hypertensive heart disease) Current visit: No Status: Chronic Qualifiers: Heart failure presence: without heart failure Qualified Code(s): I11.9 - Hypertensive heart disease without heart failure Category: Medical Code(s): I11.9 - Hypertensive heart disease without heart failure (6) HLD (hyperlipidemia) Current visit: No Status: Chronic Qualifiers: Hyperlipidemia type: mixed hyperlipidemia Qualified Code(s): E78.2 - Mixed hyperlipi
--- NOTE | 2020-02-29 12:31 | HMH.ANESCL ---
[facility] Anesthesia Checklist - Patient Identification Patient Identification: Arm Band, Verbal (Name & ) - Structural Data Admitted From: Inpatient Planned Operative Procedure/s: aicd Verified Documents: History and Physical - NPO Status Verified Time NPO: 00:00 - Chart Verification Results Verified: CBC, BMP - Additional verifications Patient : No Anesthesia Reactions: No Hx Blood Transfusions: No Blood Transfusion Reaction: No Cephalosporin Allergy: No Previous Colonoscopy: Yes - Cardiovascular Assessment Heart Sounds: S1 & S2 Pulse Strength: Baseline Pulse Rhythm: Regular Peripheral Edema: Yes - Airway Assessment C-Spine Mobility Assessed: No TMJ Mobility Assessed: No Dentition: Good Dentition - Neurological Assessment Level of Consciousness: Awake, Alert, Appropriate Hx Seizures: No Numbness or tingling in extremities: No - Anesthesia Plan Anesthesia Risk discussed: Yes Anesthesia Plan: Verified ASA Class: III Anesthesia Type: MAC [facility] History I have reviewed the patient's past medical history: Yes Medical History: Reports:: Cardiomyopathy, Coronary Artery Disease, Hyperlipidemia, Hypertension, Internal Pacemaker, Lung Disease, Kidney Stones, Myocardial Infarction, Valvular Heart Disease Denies:: Cancer, Diabetes Mellitus Type 1, Diabetes Mellitus Type 2, MRSA, Seizures *Have you ever received a pneumonia vaccine?: Yes *Have you received a flu vaccine this season?: Yes Other Medical History: Reports: Arthritis, Cataracts, Other Anesthesia experience/problems:: none Other Surgeries: Yes: CABG, Cardiac Catheterization, Colonoscopy, EGD, Hernia Repair, Open Heart Surgery, Pacemaker Amputation: No - *Social History Educational Level: Completed High School Smoking Status: Current every day smoker Tobacco Type: cigarettes # Packs/Day (cigarettes): 1 Alcohol Intake: never Alcohol Intake Frequency:: other Substance Use Type: denies use *Occupational Status:: retired Housing: house Household Members: spouse *Travel in the last 8 weeks: None Family Hx:: Asthma, Cancer, Diabetes, Heart Attack, Hypertension, Thyroid Disorder
--- NOTE | 2020-02-29 13:42 | PC.NURSE ---
PATIENT OFF THE FLOOR TO INSURANCE CLAIMS PROCESSOR
--- NOTE | 2020-02-29 14:48 | XR_ITS ---
PROCEDURE: XR CHEST PORTABLE CLINICAL HISTORY: Confirm pacemaker/AID placement COMPARISON: CXR1VP XR chest portable from 10/08/[address] chest wo/w con from 11/12/2017 CXR2 XR chest AP from 12/05/2018 XR CHEST 2V from 02/27/2020 FINDINGS: There has been interval placement of an AICD device from the left subclavian approach. Right atrial pacemaker wire is also present in good position. There is no evidence of pneumothorax. There is borderline cardiomegaly without failure. Fibronodular changes are present in the upper lobes. IMPRESSION: Satisfactory pacemaker placement without evidence of pneumothorax Dictated by: Thiago Franklin MD 02/29/2020 15:19 Electronically signed by Thiago Franklin MD in [place] 02/29/2020 15:19
--- NOTE | 2020-02-29 14:54 | PC.NURSE ---
REPORT CALLED FROM YOLANDA IN [facility] [employer] [facility]. PATIENT TOLERATED PROCEDURE WELL. WILL BE COMING BACK TO FLOOR SOON. DAUGHTER IN WAITING ROOM AND AWARE.
--- NOTE | 2020-02-29 17:39 | PC.NURSE ---
PATIENT LYING IN BED A&O. MILD PAIN NOTHING MORE THAN USUAL PER PATIENT. PATIENTS DAUGHTER AT BEDSIDE. PATIENT WITH DSG CDI TO LCW AND TO R GROIN. VITALS WNL. PATIENT VOIDING ADEQUATELY. TOLERATED PO DIET. NO ISSUES, NO COMPLAINTS. SAFETY MEASURES IN PLACE.
--- NOTE | 2020-02-29 21:35 | PC.NURSE ---
pt leaving floor with daughter. off unit form signed. pt has mask on
--- NOTE | 2020-02-29 22:00 | PC.NURSE ---
pt returned to unit, pt tolerated walk well
[2020-03-01] VITALS: BP 136/63; PULSE 60; RESP 18; TEMP 36.7; O2SAT 96
[2020-03-01 03:01] VITALS: PULSE 60
[2020-03-01 04:00] VITALS: BP 128/47; PULSE 60; PULSE 64; RESP 16; TEMP 36.7; O2SAT 96
[2020-03-01 05:00] VITALS: BMI 23.9
--- NOTE | 2020-03-01 05:29 | PC.NURSE ---
Addendum entered by Leonel Henderson RN 03/01/20 05:34: paced on telemetry Original Note: A&OX4 pt pacemaker replace with AICD surgical dressing C/D/I. edema surronding pacemaker site extending up into neck with mild color discoloration below insertion site. Pt C/O of chronic back pain and left pectoral extending to lt shoulder was medicated per OCT. pt reassessed pt was resting quietly. daughter @ bedside.
[2020-03-01 06:27] LABS: Basophils % 0.2 % (0.1-2.0); Eosinophils # 0.3 K/mm3 (0.0-0.4); Eosinophils % 4.3 % (0.1-12.0); Hematocrit 40.7 % (42.0-52.0); Hemoglobin 13.6 g/dL (14.1-18.0); Lymphocytes # 1.8 K/mm3 (0.7-4.5); Mean Corpuscular HGB Conc 33.3 g/dL (31.8-35.4); Mean Corpuscular Hemoglobin 31.1 pg (27.0-31.2); Mean Corpuscular Volume 93.2 fl (80-94); Mean Platelet Volume 8.5 fl (7.4-10.4); Monocytes # 0.6 K/mm3 (0.1-1.0); Monocytes % 9.5 % (1.7-9.3); Neutrophils # 3.4 K/mm3 (1.8-7.8); Neutrophils % 56.1 % (37.0-80.0); Platelet Count 89 K/mm3 (142-424); Red Blood Count 4.37 M/mm3 (4.60-6.20); Red Cell Distribution Width 14.3 % (11.5-17.5)
[2020-03-01 06:40] LABS: Chloride 105 mmol/L (98-107)
[2020-03-01 06:41] LABS: Potassium 5.1 mmoL/L (3.5-5.1); Sodium 137 mmol/L (136-145)
[2020-03-01 06:43] LABS: Alanine Aminotransferase 43 U/L (12-78); Aspartate Amino Transferase 59 U/L (17-59); Blood Urea Nitrogen 13 mg/dl (9-20); Creatinine Clearance Estimated 79 mL/min (50-200); Estimated Glomerular Filt Rate 76 ml/min (>60); GFR (African American) 92 ML/MIN (>60)
[2020-03-01 06:44] LABS: Albumin Level 3.3 g/dl (3.5-5.0); Albumin/Globulin Ratio 1.3 (1.1-1.8); Alkaline Phosphatase 72 U/L (38-126); Anion Gap 5.1 mEq/L (5-15); Bilirubin,Total 0.8 mg/dl (0.2-1.3); Carbon Dioxide 32 mmol/L (22.0-30.0); Globulin 2.6 g/dL (1.3-3.2); Total Protein,Serum 5.9 g/dl (6.3-8.2)
[2020-03-01 06:50] LABS: Calcium 8.9 mg/dl (8.4-10.2); Glucose 83 mg/dl (74-100)
[2020-03-01 07:55] VITALS: PULSE 70
[2020-03-01 08:00] VITALS: BP 125/72; PULSE 57; RESP 16; TEMP 36.6; O2SAT 93
--- NOTE | 2020-03-01 08:02 | HMH.DCSUM ---
General - General Admission date:: 02/28/20 Discharge date: 03/01/20 HPI HPI: 59-year-old white male with history of coronary disease, pacemaker implantation secondary to sick sinus syndrome, who was at home last night and felt several minutes of dizziness that he described as standing on a boat and feeling like he was going to pass out. He did not actually pass out but felt very unsteady. His daughter took his pulse and blood pressure, noted that both of them were low with diastolic pressure in the 30s according to patient's memory. He felt a little better and came to the emergency department. In the emergency department patient was noted to be at his baseline vis-?-vis blood pressure and pulse rate, but was admitted with the possibility of pacemaker malfunction for pacemaker interrogation. This morning he feels back to baseline. Hospital Course Hospital Course: Patient was admitted, because of his significant cardiac disease and worsening EF on echocardiogram he was taken to [facility] which revealed no need for stenting or coronary intervention but did confirm worsening ejection fraction and the decision was made to transition his pacemaker device over to an AICD. This was done yesterday morning without complications. Since that time the patient is felt good, no problems, felt much more energetic. This morning exam had normalized. No further dizziness symptoms. He will be discharged home with short-term follow-up with cardiology. Objective Vital signs: Temp Pulse Resp BP Pulse Ox 98.1 F 64 16 128/47 L 96 03/01/20 04:00 03/01/20 04:00 03/01/20 04:00 03/01/20 04:00 03/01/20 04:00 no acute distress - *Routine HEENT Exam Head: Present: normocephalic Eye: Present: EOMI, PERRL ENT: Present: mucous membranes moist - *Routine Neck Exam Present: supple - Routine Chest/Breast/Axilla Exam Comments: Fresh pacemaker/AICD insertion exchange floor manager site looks good, bandages clean/dry/intact, minimal swelling. - *Routine Respiratory Exam Present: CTA bilaterally - *Routine Cardiovascular Exam Present: RRR - *Routine Abdominal Exam Present: soft, normoactive bowel sounds. Absent: tenderness - *Routine Extremities Exam Absent: cyanosis, clubbing, edema - *Routine Skin Exam Present: warm. Absent: rash - Detailed Eye Exam Eyelids: Bilateral normal inspection Results Labs on day of discharge: Labs from last 24 hours 03/01/20 03/01/20 05:55 05:55 WBC 6.0 RBC 4.37 L Hgb 13.6 L Hct 40.7 L MCV 93.2 MCH 31.1 MCHC 33.3 RDW 14.3 Plt Count 89 L MPV 8.5 Neut % (Auto) 56.1 Lymph % (Auto) 30.0 [place] % (Auto) 9.5 H Eos % (Auto) 4.3 Baso % (Auto) 0.2 Neut # (Auto) 3.4 Lymph # (Auto) 1.8 [place] # (Auto) 0.6 Eos # (Auto) 0.3 Baso # (Auto) 0.0 Sodium 137 Potassium 5.1 Chloride 105 Carbon Dioxide 32 H Anion Gap 5.1 BUN 13 Creatinine 1.00 Estimated Creat Clear 79 Estimated GFR 76 Est GFR ( Amer) 92 Glucose 83 Calcium 8.9 Total Bilirubin 0.8 AST 59 ALT 43 Alkaline Phosphatase 72 Total Protein 5.9 L Albumin 3.3 L Globulin 2.6 Albumin/Globulin Ratio 1.3 DS: Diagnosis - Discharge Diagnosis (1) Near syncope Status: Resolved (2) Abnormal cardiovascular stress test Status: Resolved (3) CAD (coronary artery disease) Status: Chronic (4) Fatigue Status: Chronic (5) HHD (hypertensive heart disease) Status: Chronic (6) HLD (hyperlipidemia) Status: Chronic (7) History of coronary artery bypass graft Status: Chronic (8) Moderate aortic insufficiency Status: Chronic (9) Moderate mitral valve regurgitation Status: Chronic (10) PAD (peripheral artery disease) Status: Chronic (11) SOB (shortness of breath) Status: Chronic (12) Cardiac pacemaker in situ Status: Chronic (13) Ischemic cardiomyopathy with implantable cardiov
== END 2020-03-01 08:50 | disposition home or self-care (01) ==
LOC: ER 02-28 00:22 → 2ND 02-28 00:30
PROVIDERS: Internal Medicine; Internal Medicine Adolescent Medicine; Admitting Provider Internal Medicine Adolescent Medicine; Emergency Provider Emergency Medicine; PCP Internal Medicine Adolescent Medicine; Visit Provider Internal Medicine Adolescent Medicine
PROC: 0JH609Z Insertion of Cardiac Resynchronization Defibrillator Pulse Generator into Chest Subcutaneous Tissue and Fascia, Open Approach (ICD-10-PCS; CPT 33249; principal; 2020-02-29 13:00)
DX: I25.10 Atherosclerotic heart disease of native coronary artery without angina pectoris (principal); I49.5 Sick sinus syndrome; J44.9 Chronic obstructive pulmonary disease, unspecified; I25.708 Atherosclerosis of coronary artery bypass graft(s), unspecified, with other forms of angina pectoris; I25.5 Ischemic cardiomyopathy; I25.2 Old myocardial infarction; I11.0 Hypertensive heart disease with heart failure; Z72.0 Tobacco use; I50.22 Chronic systolic (congestive) heart failure; Z45.02 Encounter for adjustment and management of automatic implantable cardiac defibrillator
CPT/HCPCS: 33233; 33234; 33249; 36415; 71045; 71046; 80048; 80053; 83735; 84484; 85025; 93005; 93459; 96365; 99152; 99284; C1721; C1725; C1769; C1894; C1895; G0378; J1644; J2704; Q9967

== ENCOUNTER → 2020-03-06 15:02 | Outpatient (CLI) | payer MEDICARE, SELFPAY ==
--- NOTE | 2020-03-06 15:06 | CA_ITS ---
APPROVED REPORT Special Education Case Manager: Taniya Yuan RT(R) Indications heart cath 02/28/20. Patient states he has a knot in his right groin that has been Risk Factors Hypertension CAD Hyperlipidemia Cardiac Disease Current Smoker Findings Groin: Right Negative Findings No evidence of pseudoaneurysm, hematoma, or AV fistula of the right groin. Conclusion No evidence of pseudoaneurysm, hematoma, or AV fistula of the right groin. Electronically signed by : Thiago Franklin MD 03/07/2020 17:25:46
== END ==
PROVIDERS: PCP Internal Medicine Adolescent Medicine; Visit Provider Urology
DX: I73.9 Peripheral vascular disease, unspecified (principal); T14.8XXA Other injury of unspecified body region, initial encounter; Z98.890 Other specified postprocedural states
CPT/HCPCS: 93926

== ENCOUNTER → 2020-05-15 08:26 | Outpatient (CLI) | payer MEDICARE, SELFPAY ==
--- NOTE | 2020-05-15 08:28 | CT_ITS ---
PROCEDURE: CT LUNG SCREENING CLINICAL INDICATION: HX OF TOBACCO USE current smoker Currently smokes 5-6 cig. per day (50) pack year smoking history Formerly smoked 2ppd smoking for 25+ years copd, cad no prior COMPARISON: CT CHESTWW CT chest wo/w con from 11/12/2017 TECHNIQUE: The exam was performed on a [employer] Speed [address] scanner using 2.90 mGy CTDI. A low dose helical CT CHEST was performed on a multi-detector scanner. All CT scans at the facility use one or more dose reduction, viz: automated exposure control, ma/kV adjustment per patient size (including targeted exams where dose is matched to indication, i.e. head), or iterative reconstruction technique. The LDCT was performed in a facility that meets the criteria for the screening program. Data regarding this exam was submitted to ACR which is an approved registry. The order for this exam indicates that it came as a result of a lung cancer screening counseling shard decision-making visit that included all the elements required of such a visit including smoking cessation. The radiologist interpreting this exam meets the CMS criteria for the LDCT lung cancer screening program. The exam is reported using the Lung-RADS classification scale and reported to the ACR registry. NOTE: This study was performed for the specific purposes of lung cancer screening and is not an alternative to diagnostic chest CT. RADIATION DOSE: CTDI vol(CT dose Index-volume) = 2.90mG DLP (Dose Length Product) = 109.68 mGcm FINDINGS: COPD with centrilobular emphysema with evidence of old granulomatous disease with fibrocalcific changes in the lung apices. There is a noncalcified nodule in the right lower lobe medially in the as ago esophageal recess measuring 7 mm unchanged with an additional 4 mm noncalcified nodule also in this area unchanged. No new nodules apparent. OTHER FINDINGS: Prior CABG. There are a few periportal lymph nodes measuring up to 2 by 1.3 cm unchanged. Nonobstructing bilateral renal calculi noted in the upper poles of the kidneys versus arterial calcifications. Pacemaker wires are noted. A gallstone is present. IMPRESSION: Lung-RADS Category 2 Benign Appearance or Behavior Follow-up: Continue annual screening with LDCT in 12 months Cholelithiasis and possible nephrolithiasis Dictated by: Thiago Franklin MD 05/19/2020 11:16 Thiago Franklin MD in [place] 05/19/2020 11:16
== END ==
PROVIDERS: PCP Internal Medicine Adolescent Medicine; Visit Provider Internal Medicine Adolescent Medicine
DX: Z87.891 Personal history of nicotine dependence (principal); Z12.2 Encounter for screening for malignant neoplasm of respiratory organs

== ENCOUNTER → 2020-08-21 09:53 | Outpatient (CLI) | payer MEDICARE, SELFPAY ==
[2020-08-21 10:28] LABS: Basophils % 0.5 % (0.1-2.0); Eosinophils # 0.2 K/mm3 (0.0-0.4); Eosinophils % 2.5 % (0.1-12.0); Hematocrit 49.8 % (42.0-52.0); Hemoglobin 15.5 g/dL (14.1-18.0); Lymphocytes # 2.3 K/mm3 (0.7-4.5); Lymphocytes % 34.8 % (10-50); Mean Corpuscular HGB Conc 31.1 g/dL (31.8-35.4); Mean Corpuscular Hemoglobin 29.5 pg (27.0-31.2); Mean Platelet Volume 9.1 fl (7.4-10.4); Monocytes # 0.5 K/mm3 (0.1-1.0); Monocytes % 7.8 % (1.7-9.3); Neutrophils # 3.5 K/mm3 (1.8-7.8); Neutrophils % 54.5 % (37.0-80.0); Platelet Count 119 K/mm3 (142-424); Red Blood Count 5.25 M/mm3 (4.60-6.20); Red Cell Distribution Width 14.9 % (11.5-17.5); White Blood Count 6.5 K/mm3 (4.8-10.8)
[2020-08-21 10:53] LABS: Chloride 103 mmol/L (98-107); Potassium 4.2 mmoL/L (3.5-5.1); Sodium 141 mmol/L (136-145)
[2020-08-21 10:55] LABS: Alanine Aminotransferase 71 U/L (12-78); Aspartate Amino Transferase 83 U/L (17-59); Blood Urea Nitrogen 11 mg/dl (9-20); Estimated Glomerular Filt Rate 76 ml/min (>60); GFR (African American) 92 ML/MIN (>60)
[2020-08-21 10:56] LABS: Albumin/Globulin Ratio 1.3 (1.1-1.8); Alkaline Phosphatase 95 U/L (38-126); Anion Gap 11.2 mEq/L (5-15); Bilirubin,Total 0.6 mg/dl (0.2-1.3); Calcium 9.6 mg/dl (8.4-10.2); Carbon Dioxide 31 mmol/L (22.0-30.0); Cholesterol 68 mg/dl (140-200); Glucose 97 mg/dl (74-100); Triglycerides 42 mg/dl (30-150); VLDL Cholesterol 8 mg/dL (0-40)
[2020-08-21 10:57] LABS: Chol/HDL Ratio 1.7 (1-3.5); HDL Cholesterol 39 mg/dl (40-60)
[2020-08-21 11:11] LABS: T4 (Thyroxine) 8.4 ug/dl (5.53-11.0); Triiodothryronine (T3) Uptake 36 % (23.5-40.5)
[2020-08-21 11:15] LABS: Direct LDL Cholesterol < 30.00 mg/dL (100-129)
[2020-08-21 11:25] LABS: Thyroid Stimulating Hormone 0.82 uIU/mL (0.465-4.68)
== END ==
PROVIDERS: Visit Provider Internal Medicine Adolescent Medicine
DX: I25.10 Atherosclerotic heart disease of native coronary artery without angina pectoris (principal); E78.01 Familial hypercholesterolemia; E05.90 Thyrotoxicosis, unspecified without thyrotoxic crisis or storm
CPT/HCPCS: 36415; 80053; 80061; 84436; 84443; 84479; 85025

== ENCOUNTER → 2020-12-16 12:15 | Outpatient (CLI) | payer MEDICARE, SELFPAY ==
[2020-12-16 13:04] LABS: Basophils % 0.4 % (0.1-2.0); Eosinophils # 0.2 K/mm3 (0.0-0.4); Eosinophils % 2.4 % (0.1-12.0); Hematocrit 48.1 % (42.0-52.0); Lymphocytes # 2.5 K/mm3 (0.7-4.5); Lymphocytes % 38.7 % (10-50); Mean Corpuscular HGB Conc 31.3 g/dL (31.8-35.4); Mean Corpuscular Hemoglobin 28.4 pg (27.0-31.2); Mean Corpuscular Volume 90.9 fl (80-94); Mean Platelet Volume 9.3 fl (7.4-10.4); Monocytes # 0.5 K/mm3 (0.1-1.0); Monocytes % 7.8 % (1.7-9.3); Neutrophils # 3.3 K/mm3 (1.8-7.8); Neutrophils % 50.7 % (37.0-80.0); Platelet Count 122 K/mm3 (142-424); Red Blood Count 5.29 M/mm3 (4.60-6.20); Red Cell Distribution Width 15.6 % (11.5-17.5); White Blood Count 6.5 K/mm3 (4.8-10.8)
[2020-12-16 13:40] LABS: Alanine Aminotransferase 70 U/L (12-78); Albumin Level 4.7 g/dl (3.5-5.0); Albumin/Globulin Ratio 1.5 (1.1-1.8); Alkaline Phosphatase 122 U/L (38-126); Anion Gap 12.9 mEq/L (5-15); Aspartate Amino Transferase 96 U/L (17-59); Bilirubin,Total 0.8 mg/dl (0.2-1.3); Blood Urea Nitrogen 11 mg/dl (9-20); Calcium 10.4 mg/dl (8.4-10.2); Carbon Dioxide 30 mmol/L (22.0-30.0); Chloride 104 mmol/L (98-107); Estimated Glomerular Filt Rate 76 ml/min (>60); GFR (African American) 92 ML/MIN (>60); Globulin 3.2 g/dL (1.3-3.2); Glucose 94 mg/dl (74-100); Potassium 4.9 mmoL/L (3.5-5.1); Sodium 142 mmol/L (136-145); Total Protein,Serum 7.9 g/dl (6.3-8.2)
[2020-12-16 13:57] LABS: Triiodothryronine (T3) Uptake 33 % (23.5-40.5)
[2020-12-16 13:59] LABS: 25-OH Vitamin D, Total 52.4 ng/mL (30-100)
[2020-12-16 14:12] LABS: Thyroid Stimulating Hormone 0.78 uIU/mL (0.465-4.68)
[2020-12-16 14:32] LABS: Vitamin B12 603 pg/mL (239-931)
[2020-12-16 16:12] LABS: Free Thyroxine Index 2.3 ug/dL (5.93-13.13)
== END ==
PROVIDERS: Visit Provider Internal Medicine Adolescent Medicine
DX: I25.10 Atherosclerotic heart disease of native coronary artery without angina pectoris (principal); E05.90 Thyrotoxicosis, unspecified without thyrotoxic crisis or storm; G89.29 Other chronic pain; Z68.24 Body mass index [BMI] 24.0-24.9, adult
CPT/HCPCS: 36415; 80053; 82306; 82607; 84436; 84443; 84479; 85025

== ENCOUNTER → 2021-03-31 11:40 | Outpatient (CLI) | payer MEDICARE, SELFPAY ==
[2021-03-31 12:33] LABS: Basophils % 0.7 % (0.1-2.0); Eosinophils # 0.2 K/mm3 (0.0-0.4); Eosinophils % 3.2 % (0.1-12.0); Hematocrit 47.1 % (42.0-52.0); Hemoglobin 15.7 g/dL (14.1-18.0); Lymphocytes # 2.6 K/mm3 (0.7-4.5); Lymphocytes % 43.1 % (10-50); Mean Corpuscular HGB Conc 33.3 g/dL (31.8-35.4); Mean Corpuscular Volume 90.1 fl (80-94); Mean Platelet Volume 8.8 fl (7.4-10.4); Monocytes # 0.4 K/mm3 (0.1-1.0); Monocytes % 6.7 % (1.7-9.3); Neutrophils # 2.8 K/mm3 (1.8-7.8); Neutrophils % 46.3 % (37.0-80.0); Platelet Count 93 K/mm3 (142-424); Red Blood Count 5.23 M/mm3 (4.60-6.20); Red Cell Distribution Width 15.5 % (11.5-17.5)
[2021-03-31 13:04] LABS: Alanine Aminotransferase 42 U/L (12-78); Albumin Level 4.1 g/dl (3.5-5.0); Albumin/Globulin Ratio 1.4 (1.1-1.8); Alkaline Phosphatase 99 U/L (38-126); Anion Gap 14.2 mEq/L (5-15); Aspartate Amino Transferase 65 U/L (17-59); Bilirubin,Total 0.8 mg/dl (0.2-1.3); Blood Urea Nitrogen 11 mg/dl (9-20); Calcium 9.3 mg/dl (8.4-10.2); Carbon Dioxide 30 mmol/L (22.0-30.0); Chloride 102 mmol/L (98-107); Chol/HDL Ratio 2.8 (1-3.5); Cholesterol 122 mg/dl (140-200); Estimated Glomerular Filt Rate 86 ml/min (>60); GFR (African American) 103 ML/MIN (>60); Glucose 57 mg/dl (74-100); HDL Cholesterol 43 mg/dl (40-60); Potassium 4.2 mmoL/L (3.5-5.1); Sodium 142 mmol/L (136-145); Total Protein,Serum 7.1 g/dl (6.3-8.2); Triglycerides 89 mg/dl (30-150); VLDL Cholesterol 18 mg/dL (0-40)
[2021-03-31 13:15] LABS: Direct LDL Cholesterol 55.72 mg/dL (100-129)
== END ==
PROVIDERS: Visit Provider Internal Medicine Adolescent Medicine
DX: I25.10 Atherosclerotic heart disease of native coronary artery without angina pectoris (principal)
CPT/HCPCS: 36415; 80053; 80061; 85025

== ENCOUNTER → 2021-04-08 06:30 | Outpatient (CLI) | payer MEDICARE, SELFPAY ==
--- NOTE | 2021-04-08 06:37 | CT_ITS ---
PROCEDURE: CT LUNG SCREENING CLINICAL INDICATION: Lata SAMI MCMILLAN MAKAYLA,,SCREENING COMPARISON: CT CT LUNG SCREENING from 05/15/2020 TECHNIQUE: The exam was performed on a GE Light Speed [address] scanner using 2.90 mGy CTDI. A low dose helical CT CHEST was performed on a multi-detector scanner. All CT scans at the facility use one or more dose reduction, viz: automated exposure control, ma/kV adjustment per patient size (including targeted exams where dose is matched to indication, i.e. head), or iterative reconstruction technique. The LDCT was performed in a facility that meets the criteria for the screening program. Data regarding this exam was submitted to ACR which is an approved registry. The order for this exam indicates that it came as a result of a lung cancer screening counseling shard decision-making visit that included all the elements required of such a visit including smoking cessation. The radiologist interpreting this exam meets the [facility] criteria for the LDCT lung cancer screening program. The exam is reported using the Lung-RADS classification scale and reported to the ACR registry. NOTE: This study was performed for the specific purposes of lung cancer screening and is not an alternative to diagnostic chest CT. RADIATION DOSE: CTDI vol(CT dose Index-volume) = 2.90mG DLP (Dose Length Product) = 111.77 mGcm FINDINGS: COPD with scattered areas of scarring. Fibrocalcific changes are present in the lung apices. There has been a prior CABG. Stable 5 mm noncalcified nodule right upper lobe . Stable 7 mm nodule in the as ago esophageal region with a an adjacent 4 mm stable nodule medially. No new suspicious nodules evident. Mild ectasia of the ascending aorta at 3.7 cm. Artifact is present from cardiac pacemaker device. nodularity involves the left adrenal gland with calcification. 2 mm nonobstructing stone in the right kidney splenomegaly at 15 cm. The gallbladder is distended with a stone posteriorly at 7 mm. Small periportal lymph nodes. Epidural stimulator device T9-T10 region. IMPRESSION: Lung-RADS Category 2 Benign Appearance or Behavior Follow-up: Continue annual screening with LDCT in 12 months Other findings as described above including hydropic gallbladder with cholelithiasis Dictated by: Thiago Franklin MD 04/14/2021 06:32 Thiago Franklin MD in [place] 04/14/2021 06:32
--- NOTE | 2021-04-08 08:09 | US_ITS ---
PROCEDURE: US ABD. AORTA SCREENING CLINICAL INDICATION: PERSONAL HX OF TOBACCO USE COMPARISON: US GB US GALLBLADDER (ABD LTD) from 07/06/2017 FINDINGS: The abdominal aorta is normal in caliber at 1.5 x 1.5 cm. Proximal common iliacs have an unremarkable appearance at 6 mm each. IMPRESSION: No evidence of abdominal aortic aneurysm Dictated by: Thiago Franklin MD 04/08/2021 08:55 Thiago Franklin MD in [place] 04/08/2021 08:55
== END ==
PROVIDERS: PCP Internal Medicine Adolescent Medicine; Visit Provider Internal Medicine Adolescent Medicine
DX: Z87.891 Personal history of nicotine dependence (principal); Z12.2 Encounter for screening for malignant neoplasm of respiratory organs; Z13.6 Encounter for screening for cardiovascular disorders
CPT/HCPCS: 71271; 76705

== ENCOUNTER → 2021-07-04 08:35 | Outpatient (CLI) | payer MEDICARE, MEDICAID, SELFPAY ==
--- NOTE | 2021-07-04 08:35 | FL_ITS ---
PROCEDURE: FL UPPER GI W AIR CLINICAL INDICATION: dysphagia COMPARISON: No exams were available for comparison FINDINGS: Examination of the esophagus demonstrates a small anterior esophageal web at the C5-C6 level. At the same level there is mildly prominent osteophytes projecting along the anterior aspect of the C5-C6 vertebral bodies causing some indentation upon the posterior aspect of the esophagus. Indentation is also noted posteriorly at the C6-C7 level from anterior osteophytes. No hiatal hernia. No esophageal mass or annular constricting lesion. The stomach and duodenal bulb have an unremarkable appearance without evidence of mass or ulcer. There is a small duodenal diverticulum projecting medially. 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 Small duodenal diverticulum Otherwise negative Dictated by: Thiago Franklin MD 07/04/2021 12:09 Thiago Franklin MD in [place] 07/04/2021 12:09
== END ==
PROVIDERS: PCP Internal Medicine Adolescent Medicine; Visit Provider Surgery
DX: R13.10 Dysphagia, unspecified (principal)
CPT/HCPCS: 74246

== ENCOUNTER → 2021-08-04 11:50 | Outpatient (CLI) | payer MEDICARE, MEDICAID, SELFPAY | PROVIDERS: Visit Provider Surgery | DX: Z01.812 Encounter for preprocedural laboratory examination (principal); Z20.822 Contact with and (suspected) exposure to COVID-19; R10.13 Epigastric pain; Z13.810 Encounter for screening for upper gastrointestinal disorder | CPT/HCPCS: C9803; U0003; U0005 ==

== ENCOUNTER 2021-08-06 10:59 | Day surgery (SDC) | payer MEDICARE, MEDICAID, SELFPAY ==
[2021-08-06 11:21] VITALS: BP 114/65; PULSE 60; RESP 18; TEMP 36.4; O2SAT 99; BMI 23.2
--- NOTE | 2021-08-06 12:06 | HMH.GSHP ---
HPI HPI: Patient is a 61-year-old male from [place] with history of coronary artery disease, ischemic cardiomyopathy, AICD placements, valvular heart disease, multiple previous myocardial infarctions who was referred by Dr. Almas Lowry for upper endoscopy. Patient is history of difficulty swallowing for approximately the past couple of months. This has been progressive. He states that he feels like something is stuck in his neck essentially at the level of the thyroid cartilage. He has trouble with breads and his medications. I did have the patient undergo a barium swallow prior to the procedure. This reveals some cervical osteophytes and anterior esophageal web. Plan was made to proceed with upper endoscopy although the patient could require ENT evaluation. [facility] History I have reviewed the patient's past medical history: Yes Medical History: Reports:: Cardiomyopathy, Coronary Artery Disease, Hyperlipidemia, Hypertension, Internal Pacemaker, Lung Disease, Kidney Stones, Myocardial Infarction, Valvular Heart Disease Denies:: Cancer, Diabetes Mellitus Type 1, Diabetes Mellitus Type 2, MRSA, Seizures *Have you ever received a pneumonia vaccine?: Yes *Have you received a flu vaccine this season?: Yes Other Medical History: Reports: Arthritis, Cataracts, Other. Denies: Blood Transfusion Reaction Other Surgeries: Yes: CABG, Cardiac Catheterization, Cardiac Surgery, Colonoscopy, EGD, Hernia Repair, Open Heart Surgery, Pacemaker Amputation: No Fractures: No - *Social History Last grade of school completed: 9th or 10th Smoking Status: Current every day smoker Tobacco Type: cigarettes # Packs/Day (cigarettes): 1 Alcohol Intake: never Alcohol Intake Frequency:: other Substance Use Type: denies use *Occupational Status:: disabled Housing: house Household Members: spouse *Travel in the last 8 weeks: None Family Hx:: Heart Attack Review of Systems - Review of Systems Review of systems:: pertinent systems reviewed and negative unless documented below Meds Home Medications Medication Instructions Recorded Confirmed Type Aspirin 81 mg PO DAILY 10/07/17 06/23/21 History Pantoprazole Sodium [Protonix 40mg 40 mg PO DAILY 10/07/17 06/23/21 History tablet] tizanidine 2 mg tablet 2 mg PO HSP PRN tab 02/20/20 06/23/21 History Losartan Potassium [Cozaar 25mg 25 mg PO DAILY 02/27/20 06/23/21 History Tablets] Albuterol Sulfate [Albuterol 2 puffs IH NEEDED PRN 02/28/20 06/23/21 History Sulfate Hfa] Metoprolol Succinate [Metoprolol 25 mg PO HS 02/28/20 06/23/21 History Succinate 25mg Tablet*] Oxycodone HCl [Oxycodone 5mg tab 15 mg PO Q6H 02/28/20 06/23/21 History (IR)] paroxetine HCl 20 mg tablet 20 mg PO DAILY tab 06/23/21 06/23/21 History Magnesium Oxide 400 mg PO DAILY 08/01/21 08/01/21 History Allergies Allergy/AdvReac Type Severity Reaction Status Date / Time adhesive tape [ADHESIVE TAPE] Allergy Intermediate I-RASH Verified 06/23/21 13:38 duloxetine [From CYMBALTA] AdvReac Unknown Verified 06/23/21 13:38 Exam Vital signs and Labs for Last 24 Hours: Temp Pulse Resp BP Pulse Ox 97.6 F 60 18 114/65 99 08/06/21 11:21 08/06/21 11:21 08/06/21 11:21 08/06/21 11:21 08/06/21 11:21 I & O for Last 24 hours: Intake & Output 08/04/21 08/05/21 08/06/21 08/07/21 11:59 11:59 11:59 11:59 Weight 153 lb - Constitutional no acute distress - *Routine HEENT Exam Head: Present: normocephalic Eye: Present: EOMI, PERRL ENT: Present: mucous membranes moist - *Routine Neck Exam Present: supple. Absent: lymphadenopathy - *Routine Respiratory Exam Present: CTA bilaterally - *Routine Cardiovascular Exam Present: RRR - *Routine Abdominal Exam Present: soft, normoactive bowel sounds. Absent: tenderness - *Routine Rectal Exam Rectal:: deferred - *Routine Genitalia Exam Genitalia:: deferred - *Routine Extremities Exam Absent: cyanosis, clubbing, edema - *Routine Sk
--- NOTE | 2021-08-06 12:12 | P.PN_ITS ---
[facility] Anesthesia Checklist - Structural Data Admitted From: Home Planned Operative Procedure/s: egd Consent for Planned Operative Procedure(s) Verified: Yes - Additional verifications Anesthesia Reactions: No Hx Blood Transfusions: No Blood Transfusion Reaction: No - Airway Assessment C-Spine Mobility Assessed: Yes TMJ Mobility Assessed: Yes Dentition: Good Dentition - Neurological Assessment Level of Consciousness: Awake, Alert, Appropriate - Anesthesia Plan Anesthesia Risk discussed: Yes Anesthesia Plan: Verified ASA Class: III Anesthesia Type: MAC [facility] History I have reviewed the patient's past medical history: Yes Medical History: Reports:: Cardiomyopathy, Coronary Artery Disease, Hyperlipidemia, Hypertension, Internal Pacemaker, Lung Disease, Kidney Stones, Myocardial Infarction, Valvular Heart Disease Denies:: Cancer, Diabetes Mellitus Type 1, Diabetes Mellitus Type 2, MRSA, Seizures *Have you ever received a pneumonia vaccine?: Yes *Have you received a flu vaccine this season?: Yes Other Medical History: Reports: Arthritis, Cataracts, Other. Denies: Blood Transfusion Reaction Anesthesia experience/problems:: none Other Surgeries: Yes: CABG, Cardiac Catheterization, Cardiac Surgery, Colonoscopy, EGD, Hernia Repair, Open Heart Surgery, Pacemaker Amputation: No Fractures: No - *Social History Last grade of school completed: 9th or 10th Smoking Status: Current every day smoker Tobacco Type: cigarettes # Packs/Day (cigarettes): 1 Alcohol Intake: never Alcohol Intake Frequency:: other Substance Use Type: denies use *Occupational Status:: disabled Housing: house Household Members: spouse *Travel in the last 8 weeks: None Family Hx:: Heart Attack
[2021-08-06 12:14] VITALS: O2SAT 99
--- NOTE | 2021-08-06 12:29 | HMH.SCOPE ---
- Procedure: Date: 08/06/21 Patient Date of :: 1960 Procedure Performed:: Esophagogastroduodenoscopy with biopsies Indications:: Patient is a 61-year-old male from [place] with history of coronary artery disease, ischemic cardiomyopathy, AICD placements, valvular heart disease, multiple previous myocardial infarctions who was referred by Dr. Almas Lowry for upper endoscopy. Patient is history of difficulty swallowing for approximately the past couple of months. This has been progressive. He states that he feels like something is stuck in his neck essentially at the level of the thyroid cartilage. He has trouble with breads and his medications. I did have the patient undergo a barium swallow prior to the procedure. This reveals some cervical osteophytes and anterior esophageal web. Plan was made to proceed with upper endoscopy although the patient could require ENT evaluation. Morning of his planned procedure patient actually stated that his symptoms had improved and he had considered canceling his procedure. Performing Provider:: Eusebio Raines MD Referring Provider:: Almas Lowry MD Sedation:: MAC sedation Procedure:: Patient was taken to endoscopy procedure room. He was positioned in lateral decubitus position. Adequate intravenous sedation was achieved with anesthesia titration of propofol. Olympus endoscope was inserted. Esophagus was cannulated. In the proximal pharyngoesophagus approximately 15 cm from the incisors there was what appeared to be a possible subtle esophageal web without mucosal lesion. This was not amenable to dilatation using flexible endoscopy. Endoscope was advanced. Gastroesophageal junction was encountered at 40 cm from the incisors. Stomach was cannulated and insufflated. Retroflexion was performed. Evaluation of the gastroesophageal junction retrograde was difficult but there is no significant appreciable hiatal hernia. There was some diffuse nonerosive mild to moderate gastritis. Gastric mucosal biopsies obtained for CLOtest for H. pylori. Gastric biopsy was obtained for histopathologic analysis. Pylorus was traversed. Duodenum appeared unremarkable. Endoscope was withdrawn. 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 pylori if positive. Dysphagia symptoms seem to be improving. However, etiology possible esophageal web as well as osteophytes in the proximal pharyngoesophageal area. If his symptoms persist may require ENT evaluation of this. Complications:: None Estimated blood obtained (mL): 2
[2021-08-06 12:30] VITALS: BP 94/47; PULSE 65; RESP 14; TEMP 36.2; O2SAT 93
[2021-08-06 12:40] VITALS: BP 97/55; PULSE 60; RESP 16; O2SAT 97
[2021-08-06 12:50] VITALS: BP 116/53; PULSE 63; RESP 14; O2SAT 97
[2021-08-06 13:00] VITALS: BP 100/55; PULSE 62; RESP 18; O2SAT 100
== END 2021-08-06 13:02 | disposition home or self-care (01) ==
LOC: OUTP 11:04
PROVIDERS: PCP Internal Medicine Adolescent Medicine; Visit Provider Surgery
PROC: 0DJ08ZZ Inspection of Upper Intestinal Tract, Via Natural or Artificial Opening Endoscopic (ICD-10-PCS; CPT 43235; principal; 2021-08-06 12:30)
DX: K22.9 Disease of esophagus, unspecified (principal); K29.60 Other gastritis without bleeding; I42.9 Cardiomyopathy, unspecified; I25.10 Atherosclerotic heart disease of native coronary artery without angina pectoris; E78.5 Hyperlipidemia, unspecified; I10 Essential (primary) hypertension; Z95.0 Presence of cardiac pacemaker; I25.2 Old myocardial infarction; J98.4 Other disorders of lung; Z87.442 Personal history of urinary calculi; M19.90 Unspecified osteoarthritis, unspecified site; Z72.0 Tobacco use
CPT/HCPCS: 43239; 87339; 88305

== ENCOUNTER → 2021-11-11 10:51 | Outpatient (CLI) | payer MEDICARE, SELFPAY ==
[2021-11-11 11:50] LABS: Chloride 105 mmol/L (98-107); Potassium 4.4 mmoL/L (3.5-5.1); Sodium 141 mmol/L (136-145)
[2021-11-11 11:52] LABS: Alanine Aminotransferase 23 U/L (12-78); Anion Gap 11.4 mEq/L (5-15); Aspartate Amino Transferase 41 U/L (17-59); Bilirubin,Unconjugated 0.4 mg/dL (0.0-1.1); Blood Urea Nitrogen 13 mg/dl (9-20); Carbon Dioxide 29 mmol/L (22.0-30.0); Estimated Glomerular Filt Rate 85 ml/min (>60); GFR (African American) 103 ML/MIN (>60)
[2021-11-11 11:53] LABS: Albumin Level 3.9 g/dl (3.5-5.0); Alkaline Phosphatase 93 U/L (38-126); Bilirubin,Direct 0.3 mg/dl (0.0-0.4); Bilirubin,Indirect 0.4 mg/dL (0.0-0.9); Bilirubin,Total 0.7 mg/dl (0.2-1.3); Calcium 8.4 mg/dl (8.4-10.2); Chol/HDL Ratio 1.8 (1-3.5); Cholesterol 81 mg/dl (140-200); Glucose 85 mg/dl (74-100); HDL Cholesterol 45 mg/dl (40-60); Magnesium 1.7 mg/dl (1.6-2.3); Total Protein,Serum 6.7 g/dl (6.3-8.2); Triglycerides 85 mg/dl (30-150); VLDL Cholesterol 17 mg/dL (0-40)
[2021-11-11 12:33] LABS: Direct LDL Cholesterol < 30.00 mg/dL (100-129)
== END ==
PROVIDERS: Visit Provider Physician Assistant
DX: I25.10 Atherosclerotic heart disease of native coronary artery without angina pectoris; I34.0 Nonrheumatic mitral (valve) insufficiency; I50.23 Acute on chronic systolic (congestive) heart failure; I73.9 Peripheral vascular disease, unspecified; Z95.0 Presence of cardiac pacemaker; Z95.1 Presence of aortocoronary bypass graft; I11.0 Hypertensive heart disease with heart failure
CPT/HCPCS: 36415; 80048; 80061; 80076; 83735

== ENCOUNTER → 2022-05-26 09:28 | Outpatient (CLI) | payer MEDICARE, SELFPAY ==
--- NOTE | 2022-05-26 09:36 | CA_ITS ---
FINAL REPORT CLINICAL HISTORY: HTN FINDINGS: Aorta velocity: 102 cm/sec Right kidney: 10.1 cm. No evidence of hydronephrosis or mass. Right intrarenal RI: 0.71 Right renal artery velocity: 228 cm/sec. Right RAR (Renal artery-Aortic Ratio): 2.24 Left Kidney: 11.4 cm. No evidence of hydronephrosis or mass. Left intrarenal RI: 0.78 Left renal artery velocity: 247 cm/sec. Left RAR (Renal Artery-Aortic Ratio): 2.43 IMPRESSION: Greater than 60% renal artery stenosis bilaterally. Recommend CTA or MRA if patient is a candidate for a contrast study. Reviewed, Interpreted and Dictated by Peggy Price MD Transcribed by Cliff Garcia Authenticated and [facility]
--- NOTE | 2022-05-26 10:07 | US_ITS ---
FINAL REPORT TECHNIQUE: Ultrasound images of the kidneys and bladder were obtained. CLINICAL HISTORY: I10 - Essential (primary) hypertension FINDINGS: The kidneys are normal with mild global parenchymal atrophy. There is no evidence of obstruction. There are simple benign cysts bilaterally measuring up to 13 mm. There is mild splenomegaly. IMPRESSION: Mild global atrophy without evidence of obstruction. Reviewed, Interpreted and Dictated by Peggy Price MD Transcribed by Geetha Diaz Authenticated and [facility]
== END ==
PROVIDERS: PCP Family Medicine; Visit Provider Physician Assistant
DX: I10 Essential (primary) hypertension (principal)
CPT/HCPCS: 76770; 93976

== ENCOUNTER → 2022-06-02 09:42 | Outpatient (CLI) | payer MEDICARE, SELFPAY ==
[2022-06-02 10:35] LABS: Basophils % 0.8 % (0.1-2.0); Eosinophils # 0.1 K/mm3 (0.0-0.4); Eosinophils % 2.7 % (0.1-12.0); Hematocrit 43.6 % (42.0-52.0); Hemoglobin 13.8 g/dL (14.1-18.0); Lymphocytes # 1.9 K/mm3 (0.7-4.5); Lymphocytes % 39.7 % (10-50); Mean Corpuscular HGB Conc 31.7 g/dL (31.8-35.4); Mean Corpuscular Hemoglobin 32.2 pg (27.0-31.2); Mean Corpuscular Volume 101.7 fl (80-94); Mean Platelet Volume 9.6 fl (7.4-10.4); Monocytes # 0.4 K/mm3 (0.1-1.0); Monocytes % 9.1 % (1.7-9.3); Neutrophils # 2.3 K/mm3 (1.8-7.8); Neutrophils % 47.7 % (37.0-80.0); Platelet Count 94 K/mm3 (142-424); Red Blood Count 4.29 M/mm3 (4.60-6.20); Red Cell Distribution Width 15.5 % (11.5-17.5); White Blood Count 4.9 K/mm3 (4.8-10.8)
[2022-06-02 11:08] LABS: Anion Gap 10.8 mEq/L (5-15); Blood Urea Nitrogen 7 mg/dl (9-20); Calcium 8.9 mg/dl (8.4-10.2); Carbon Dioxide 34 mmol/L (22.0-30.0); Chloride 100 mmol/L (98-107); Estimated Glomerular Filt Rate 85 ml/min (>60); GFR (African American) 103 ML/MIN (>60); Glucose 115 mg/dl (74-100); Potassium 4.8 mmoL/L (3.5-5.1); Sodium 140 mmol/L (136-145)
== END ==
PROVIDERS: PCP Family Medicine; Visit Provider Physician Assistant
DX: I10 Essential (primary) hypertension (principal); R93.421 Abnormal radiologic findings on diagnostic imaging of right kidney; R93.422 Abnormal radiologic findings on diagnostic imaging of left kidney; Z01.812 Encounter for preprocedural laboratory examination; Z20.822 Contact with and (suspected) exposure to COVID-19
CPT/HCPCS: 36415; 80048; 85025; C9803; U0003; U0005

== ENCOUNTER 2022-06-03 08:29 | Day surgery (SDC) | payer MEDICARE, SELFPAY ==
[2022-06-03] VITALS (17 sets, daily range): BP systolic 115–169; BP diastolic 43–99; PULSE 59–91; RESP 16–18; TEMP 36.9; O2SAT 92–99; BMI 22.3
--- NOTE | 2022-06-03 | IR_ITS ---
APPROVED REPORT Patient Location: Outpatient PROCEDURES Bilateral selective renal angiography INDICATION Hypertension, Abnormal renal duplex Informed consent was obtained prior to the procedure. COMPLICATIONS NONE Estimated Blood Loss: LESS THAN 10 ML TECHNIQUE 1% lidocaine used to anesthetize the right femoral groin. The right femoral artery was accessed via the Seldinger technique. A 4 Swedish sheath was placed in the right femoral artery. The JR4 catheter was used to selectively intubate each renal artery. At the end of the diagnostic angiogram the patient was transferred to the postop holding area in stable condition for sheath removal. ANGIOGRAPHIC RESULTS Right renal artery normal Left renal artery normal IMPRESSION Normal bilateral renal arteries PLAN 1. Continue medical management Electronically signed by : Gurvinder Tna MD 06/03/2022 11:36:14
== END 2022-06-03 14:52 | disposition home or self-care (01) ==
PROVIDERS: PCP Family Medicine; Visit Provider Internal Medicine
DX: I11.0 Hypertensive heart disease with heart failure (principal); I50.23 Acute on chronic systolic (congestive) heart failure; I25.5 Ischemic cardiomyopathy; I35.1 Nonrheumatic aortic (valve) insufficiency; I35.0 Nonrheumatic aortic (valve) stenosis; I77.4 Celiac artery compression syndrome; I25.10 Atherosclerotic heart disease of native coronary artery without angina pectoris; Z95.810 Presence of automatic (implantable) cardiac defibrillator; Z95.1 Presence of aortocoronary bypass graft; Z95.5 Presence of coronary angioplasty implant and graft; E78.5 Hyperlipidemia, unspecified; F17.210 Nicotine dependence, cigarettes, uncomplicated; Z79.899 Other long term (current) drug therapy
CPT/HCPCS: 36252; 99152; C1725; C1769; J1644; Q9967

== ENCOUNTER → 2022-12-29 11:16 | Outpatient (CLI) | payer MEDICARE, SELFPAY ==
[2022-12-29 12:40] LABS: Chloride 94 mmol/L (98-107); Potassium 4.2 mmoL/L (3.5-5.1); Sodium 139 mmol/L (136-145)
[2022-12-29 12:43] LABS: Anion Gap 14.2 mEq/L (5-15); Blood Urea Nitrogen 11 mg/dl (9-20); Carbon Dioxide 35 mmol/L (22.0-30.0); Estimated Glomerular Filt Rate 85 ml/min (>60); GFR (African American) 103 ML/MIN (>60)
[2022-12-29 12:44] LABS: Calcium 9.2 mg/dl (8.4-10.2); Glucose 88 mg/dl (74-100); Magnesium 1.6 mg/dl (1.6-2.3)
== END ==
PROVIDERS: PCP Family Medicine; Visit Provider Nurse Practitioner
DX: I50.23 Acute on chronic systolic (congestive) heart failure (principal)
CPT/HCPCS: 36415; 80048; 83735

== ENCOUNTER → 2023-01-11 10:17 | Outpatient (CLI) | payer MEDICARE, SELFPAY | PROVIDERS: PCP Family Medicine; Visit Provider Physician Assistant | DX: R06.02 Shortness of breath; I25.10 Atherosclerotic heart disease of native coronary artery without angina pectoris; I25.5 Ischemic cardiomyopathy; I34.0 Nonrheumatic mitral (valve) insufficiency; I35.1 Nonrheumatic aortic (valve) insufficiency; I50.23 Acute on chronic systolic (congestive) heart failure; I10 Essential (primary) hypertension; Z95.810 Presence of automatic (implantable) cardiac defibrillator | CPT/HCPCS: 93306 ==

== ENCOUNTER 2023-09-13 15:00 | Outpatient (CLI) | payer MEDICARE, MEDICAID, SELFPAY ==
[2023-09-13 16:09] LABS: Chol/HDL Ratio 1.9 (1-3.5); Cholesterol 93 mg/dl (140-200); HDL Cholesterol 49 mg/dl (40-60); Iron 108 ug/dL (49-181); Magnesium 1.8 mg/dl (1.6-2.3); Triglycerides 136 mg/dl (30-150); VLDL Cholesterol 27 mg/dL (0-40)
[2023-09-13 16:19] LABS: Total Iron Binding Capacity 295 ug/dL (261-462)
[2023-09-13 16:20] LABS: Direct LDL Cholesterol 33.17 mg/dL (100-129)
[2023-09-13 16:26] LABS: Free T4 (Free Thyroxine) 0.74 ng/dl (0.78-2.19)
[2023-09-13 16:55] LABS: 25-OH Vitamin D, Total 56.2 ng/mL (30-100)
[2023-09-13 17:13] LABS: Alkaline Phosphatase 97 U/L (38-126); Aspartate Amino Transferase 44 U/L (17-59); Bilirubin,Direct 0.1 mg/dl (0.0-0.4); Bilirubin,Indirect 0.9 mg/dL (0.0-0.9); Bilirubin,Unconjugated 0.9 mg/dL (0.0-1.1)
[2023-09-13 17:14] LABS: Albumin Level 4.1 g/dl (3.5-5.0)
[2023-09-13 18:40] LABS: Alanine Aminotransferase 25 U/L (12-78)
[2023-09-13 19:30] LABS: Vitamin B12 731 pg/mL (239-931)
== END 2023-09-13 23:59 ==
LOC: LAB 15:03
PROVIDERS: PCP Family Medicine; Visit Provider Physician Assistant
DX: E78.5 Hyperlipidemia, unspecified (principal); I73.9 Peripheral vascular disease, unspecified; R23.1 Pallor; R94.31 Abnormal electrocardiogram [ECG] [EKG]; Z95.0 Presence of cardiac pacemaker; Z95.1 Presence of aortocoronary bypass graft; E55.9 Vitamin D deficiency, unspecified; Z79.899 Other long term (current) drug therapy; R53.83 Other fatigue; R42 Dizziness and giddiness; I11.9 Hypertensive heart disease without heart failure; D64.9 Anemia, unspecified
CPT/HCPCS: 36415; 80061; 80076; 82306; 82607; 83540; 83550; 83735; 84439; 84443

== ENCOUNTER 2024-01-06 05:42 | Inpatient (IN) | payer MEDICARE, MEDICAID, SELFPAY ==
[2024-01-06] VITALS (32 sets, daily range): BP systolic 115–182; BP diastolic 45–93; PULSE 63–98; RESP 14–26; TEMP 36.4–37; O2SAT 91–100; BMI 21.2; BMI 21.4
--- NOTE | 2024-01-06 05:40 | ECG_ITS ---
APPROVED REPORT Exam: Resting ECG HR:84 bpm ECG Measurements Heart Rate 84 AXES NE 148 P 55 QRSd 90 QRS -19 QT 349 T 0 QTc 390 Conclusion SINUS RHYTHM Rate 84 bpm No ischemic changes Electronically signed by : POLI BENNETT, 01/06/2024 15:03:51
--- NOTE | 2024-01-06 05:44 | XR_ITS ---
FINAL REPORT CLINICAL HISTORY: copd, shortness of breath COMPARISON: None FINDINGS: A single portable view of the chest was obtained. The heart size is enlarged. The pulmonary vascularity is within normal limits. Prior median sternotomy. There is a left subclavian ICD in place. There are mild bibasilar opacities which likely represent atelectasis or scarring. There is probably a small amount of fluid in the right major fissure. Postoperative change in the right thorax. IMPRESSION: Mild bibasilar opacities, likely atelectasis or scarring. Small amount of fluid right major fissure. Reviewed, Interpreted and Dictated by Eusebio Núñez III, MD Transcribed by Yanet Minaya Authenticated and [facility]
[2024-01-06] MEDS: IPRATROPIUM/ALBUTEROL 3 ML NEB 6 ML IH (05:51)
[2024-01-06 05:54] LABS: Basophils % 0.6 % (0.1-2.0); Eosinophils # 0.1 K/mm3 (0.0-0.4); Eosinophils % 1.4 % (0.1-12.0); Hematocrit 40.9 % (42.0-52.0); Hemoglobin 12.9 g/dL (14.1-18.0); Lymphocytes # 2.3 K/mm3 (0.7-4.5); Lymphocytes % 33.9 % (10-50); Mean Corpuscular HGB Conc 31.6 g/dL (31.8-35.4); Mean Corpuscular Hemoglobin 32.8 pg (27.0-31.2); Mean Corpuscular Volume 103.9 fl (80-94); Mean Platelet Volume 9.1 fl (7.4-10.4); Monocytes # 0.5 K/mm3 (0.1-1.0); Neutrophils # 3.9 K/mm3 (1.8-7.8); Neutrophils % 57.2 % (37.0-80.0); Platelet Count 96 K/mm3 (142-424); Red Blood Count 3.94 M/mm3 (4.60-6.20); Red Cell Distribution Width 15.5 % (11.5-17.5); White Blood Count 6.9 K/mm3 (4.8-10.8)
[2024-01-06] MEDS: MAGNESIUM SULFATE IN WATER 2 GM/50 ML PIGGYBACK IV (05:54)
[2024-01-06 05:59] LABS: VBG Base Excess -3.1 mmol/L (-2.4-2.3); VBG HCO3 23.7 mmol/L (23-30); VBG Oxygen Saturation 28.5 % (50-70); VBG PCO2 51.9 mmol/L (35-51); VBG PH 7.28 mmol/L (7.31-7.41); VBG Total CO2 25.3 mmol/L (23-27)
[2024-01-06 06:00] LABS: Lactate Venous 3.7 mmol/L (0.4-2.0)
--- NOTE | 2024-01-06 06:00 | HMH.EDGENADL ---
Discharge Plan Disposition Patient Disposition: Admitted Condition: Good Prescriptions Prescriptions: No Action losartan 50 mg tablet 50 mg PO DAILY Patient Comments: TAKE 1 TABLET BY MOUTH DAILY. atorvastatin 20 mg tablet 20 mg PO HS Patient Comments: TAKE 1 TABLET BY MOUTH NIGHTLY. oxycodone 15 mg tablet 15 mg PO TID Patient Comments: TAKE 1 TABLET BY MOUTH THREE TIMES A DAY pantoprazole 40 mg tablet,delayed release (DR/EC) 40 mg PO DAILY Patient Comments: TAKE 1 TABLET BY MOUTH ONCE DAILY aspirin 81 mg Tablet 81 mg PO DAILY metoprolol succinate 25 mg tablet extended release 24 hr 25 mg PO HS Patient Comments: TAKE 1 TABLET BY MOUTH NIGHTLY AT BEDTIME FOR BLOOD PRESSURE. escitalopram oxalate 20 mg tablet 20 mg PO HS Patient Comments: TAKE 1 TABLET BY MOUTH DAILY. Trelegy Ellipta 100-62.5-25 mcg blister with device 1 inh INHALATION DAILY Patient Comments: INHALE 1 PUFF INTO THE LUNGS DAILY AT 0900. Referrals Follow up/Referrals: Provider,Referral, MD [Primary Care Provider] - See instructions Clinical Impressions Clinical Impression: COPD exacerbation, Respiratory failure with hypoxia and hypercapnia, Elevated troponin Pneumonia Qualifiers: Laterality: right Discharge ED Provider: Augustine Hough General Adult HPI <Augustine Hough MD - Last Filed: 01/06/24 07:04> General Chief complaint: Shortness of Breath/Dyspnea Stated complaint: Resp Distress Time Seen by Provider: 01/06/24 05:44 Mode of Arrival: EMS Source of Information: Patient and EMS Limitations: No Limitations Description of Symptoms (Recalled from ER Triage Doc. by RN): 63 M presents via EMS from home with c/o shortness of breath and difficulty catching his breath. This woke him up from sleeping approximately 2 hours ago. Patient has history of COPD and is a 1/2 PPD smoker. Patient does not have oxygen use at home. EMS reports severe dyspnea on their arrival: 65 breaths per minute, hypoxic with o2 saturation <87% on RA. They administered 1 DuoNeb and 125mg IVP Solumedrol through an 18g LAC. History of Present Illness HPI narrative: 63-year-old male with history of heart failure, COPD, chronic kidney disease, ischemic cardiomyopathy presents with severe shortness of breath. He reports that it woke him from sleeping approximately 2 hours ago. He smokes about half pack a day. EMS notes that he was tachypneic to the 60s. He was hypoxic on room air on arrival. He is not on oxygen normally. Patient was given 1.5 Solu-Medrol and 1 DuoNeb en route and looks much better now than when they arrived at his house per EMS. After patient had symptomatic improvement he was able to provide more history. He reports that he has had worsening cough and congestion and has felt bad over the last several days. Related Data Home Medications Medication Instructions Recorded Confirmed aspirin 81 mg tablet 81 mg PO DAILY 01/06/24 01/06/24 atorvastatin 20 mg tablet 20 mg PO HS 01/06/24 01/06/24 escitalopram oxalate 20 mg tablet 20 mg PO HS 01/06/24 01/06/24 fluticasone fur. 100 mcg-umeclid 1 inh inhalation DAILY 01/06/24 01/06/24 62.5 mcg-vilant 25 mcg inhalat.powder (Trelegy Ellipta) losartan 50 mg tablet 50 mg PO DAILY 01/06/24 01/06/24 metoprolol succinate 25 mg 25 mg PO HS 01/06/24 01/06/24 tablet,extended release 24 hr oxycodone 15 mg tablet 15 mg PO TID 01/06/24 01/06/24 pantoprazole 40 mg tablet,delayed 40 mg PO DAILY 01/06/24 01/06/24 release Allergies Allergy/AdvReac Type Severity Reaction Status Date / Time adhesive tape [ADHESIVE TAPE] Allergy Intermediate I-RASH Verified 10/20/23 13:18 duloxetine [From CYMBALTA] AdvReac Unknown Verified 10/20/23 13:18 [facility] <Augustine Hough MD - Last Filed: 01/06/24 07:04> [facility] Disclaimer: The information contained in this section may have been updated after the patient was seen, as this information can be updated by other users. Medical History Abnormal ultrasound of both kidneys Fatigue HTN (hypertension) Moderate mitral valve regurgitation SOB (shortness of breath) Vitamin D deficiency, unspecified Surgical History AICD (automatic cardioverter/defibrillator) present Social History (Updated 01/06/24 @ 05:58 by Dilip Calvert RN) Smoking Status: Current every day smoker tobacco type: cigarettes packs per day: 1 alcohol intake: never substance use type: denies use current occupational status: disabled Travel in the last 8 weeks: None household members: spouse housing: house caffeine: Yes <Augustine Hough MD - Last Filed: 01/06/24 07:04> ROS Obtained: Yes All systems reviewed & no additional complaints except as documented Physical Exam <Augustine Hough MD - Last Filed: 01/06/24 07:04> General General appearance: alert and in distress (Respiratory) Head Head exam: atraumatic and normocephalic Eye Eye exam: Present normal appearance, PERRL and EOMI ENT ENT exam: Present normal oropharynx and normal external ear exam Neck Neck exam: Present normal inspection and full ROM Chest Chest inspection: Present normal inspection and symmetric chest wall rise; Absent tenderness Respiratory Respiratory exam: Present respiratory distress (markedly tachypneic, dyspneic, accessory muscle use noted, diminished breath sounds and wheezing noted bilaterally) Cardiovascular Cardiovascular exam: Present regular rate and normal rhythm Abdominal Exam Abdominal exam: Present soft; Absent distention, tenderness or guarding Extremities Exam Extremities exam: Present normal inspection; Absent edema or joint swelling Back Exam Back exam: Present normal inspection; Absent tenderness Neurological Exam Neurological exam: Present alert and oriented X3; Absent motor sensory deficit Psychiatric Psychiatric exam: Present normal affect and normal mood Skin Skin exam: Present warm, dry and normal color Lymphatic Lymphatic Findings: no adenopathy Medical Decision Making <Augustine Hough MD - Last Filed: 01/06/24 07:04> Medical Records Medical records reviewed: Yes I reviewed the patient's medical records. Tony Inquiry Pt receiving controlled substance: No Tony was queried for this patient: No Vital Signs: 01/06/24 05:42 01/06/24 05:52 01/06/24 05:52 Temperature 98 F Temperature Source Axillary Pulse Rate 79 Pulse Rate [Left] 82 Respiratory Rate 24 Blood Pressure Blood Pressure [Right Arm] 182/74 H Blood Pressure Mean Blood Pressure Mean [Right Arm] 110 Blood Pressure Source Blood Pressure Source [Right Arm] Automatic Cuff Blood Pressure Position Blood Pressure Position [Right Arm] Sitting 02 Sat by Pulse Oximetry 92 L 91 L Oxygen Delivery Method Room Air Room Air Oxygen Flow Rate (LPM) 01/06/24 05:52 01/06/24 05:52 01/06/24 06:00 Temperature Temperature Source Pulse Rate 86 80 82 Pulse Rate [Left] Respiratory Rate 20 26 H Blood Pressure 163/78 H 163/72 H Blood Pressure [Right Arm] Blood Pressure Mean Blood Pressure Mean [Right Arm] Blood Pressure Source Automatic Cuff Blood Pressure Source [Right Arm] Blood Pressure Position Sitting Blood Pressure Position [Right Arm] 02 Sat by Pulse Oximetry 100 100 Oxygen Delivery Method Aerosol Mask Aerosol Mask Oxygen Flow Rate (LPM) 10 10 01/06/24 06:15 01/06/24 06:30 01/06/24 06:45 Temperature Temperature Source Pulse Rate 98 H 93 H 83 Pulse Rate [Left] Respiratory Rate 25 H 20 21 Blood Pressure 168/57 H 150/65 H 152/66 H Blood Pressure [Right Arm] Blood Pressure Mean 94 93 86 Blood Pressure Mean [Right Arm] Blood Pressure Source Blood Pressure Source [Right Arm] Blood Pressure Position Blood Pressure Position [Right Arm] 02 Sat by Pulse Oximetry 95 94 L 94 L Oxygen Delivery Method Nasal Cannula Room Air Room Air Oxygen Flow Rate (LPM) 4 01/06/24 07:00 01/06/24 07:30 01/06/24 08:00 Temperature Temperature Source Pulse Rate 79 87 85 Pulse Rate [Left] Respiratory Rate 20 22 14 Blood Pressure 145/64 H 150/63 H 136/78 Blood Pressure [Right Arm] Blood Pressure Mean 91 92 97 Blood Pressure Mean [Right Arm] Blood Pressure Source Blood Pressure Source [Right Arm] Blood Pressure Position Blood Pressure Position [Right Arm] 02 Sat by Pulse Oximetry 93 L 92 L 93 L Oxygen Delivery Method Oxygen Flow Rate (LPM) 01/06/24 08:30 01/06/24 09:00 01/06/24 09:30 Temperature Temperature Source Pulse Rate 82 83 81 Pulse Rate [Left] Respiratory Rate 16 19 24 Blood Pressure 135/62 139/68 126/63 Blood Pressure [Right Arm] Blood Pressure Mean 100 102 102 Blood Pressure Mean [Right Arm] Blood Pressure Source Blood Pressure Source [Right Arm] Blood Pressure Position Blood Pressure Position [Right Arm] 02 Sat by Pulse Oximetry 92 L 96 94 L Oxygen Delivery Method Oxygen Flow Rate (LPM) Lab Data Lab results reviewed: Yes I reviewed the patient's lab results. Lab Results 01/06/24 05:46: WBC 6.9, RBC 3.94 L, Hgb 12.9 L, Hct 40.9 L, MCV 103.9 H, MCH 32.8 H, MCHC 31.6 L, RDW 15.5, Plt Count 96 L, MPV 9.1, Neut % (Auto) 57.2, Lymph % (Auto) 33.9, [place] % (Auto) 7.0, Eos % (Auto) 1.4, Baso % (Auto) 0.6, Neut # (Auto) 3.9, Lymph # (Auto) 2.3, [place] # (Auto) 0.5, Eos # (Auto) 0.1, Baso # (Auto) 0.0, Sodium 141, Potassium 3.7, Chloride 105, Carbon Dioxide 27, Anion Gap 12.7, BUN 11, Creatinine 0.70, Estimated Creat Clear 66, Estimated GFR 113, Est GFR ( Amer) 137, Glucose 111 H, Calcium 8.7, Total Bilirubin 1.8 H, AST 31, ALT 21, Alkaline Phosphatase 74, Troponin I 0.02, Total Protein 6.4, Albumin 3.6, Globulin 2.8, Albumin/Globulin Ratio 1.3 01/06/24 05:54: VBG pH 7.28 L, VBG pCO2 51.9 H, VBG pO2 20.0 L, VBG HCO3 23.7, VBG Total CO2 25.3, VBG O2 Saturation 28.5 L, VBG Base Excess -3.1 L, VBG Lactic Acid 3.7 H 01/06/24 10:20: Lactate 4.8 H, Troponin I 0.55 H 01/06/24 05:46 01/06/24 05:46 Orders (Tests/Meds): ED MEDICATIONS Discontinued Medications Generic Name Dose Route Start Last Admin Trade Name Freq PRN Reason Stop Dose Admin Albuterol/Ipratropium 6 ml 01/06/24 05:44 01/06/24 05:51 Ipratropium/Albuterol 3 Ml Neb IH 01/06/24 05:45 6 ml ONCE ONE Administration Magnesium Sulfate 2 gm in 50 mls @ 50 mls/hr 01/06/24 05:44 01/06/24 05:54 Magnesium Sulfate 2gm/50ml Premix IV 01/06/24 06:43 50 mls/hr ONCE ONE Administration Levofloxacin/Dextrose 250 mg in 50 mls @ 100 mls/hr 01/06/24 06:31 01/06/24 06:41 Levaquin 250mg/50ml Premix IV 01/06/24 07:00 100 mls/hr ONCE ONE Administration Sodium Chloride 1,000 mls @ 999 mls/hr 01/06/24 10:50 01/06/24 11:02 Sod Chlor 0.9% 1000ml Bag IV 01/06/24 11:50 999 mls/hr .Q1H1M ONE Administration Oxycodone HCl 15 mg 01/06/24 06:02 01/06/24 06:05 Oxycodone 5mg Immediate Release Tablet PO 01/06/24 06:03 15 mg ONCE ONE Administration ORDERS Category Date Time Status CXR --portable [XR chest portable] Stat Exams 01/06/24 05:44 Taken CBC w/Auto Diff [Complete Blood Count Auto Diff] Stat Lab 01/06/24 05:46 Completed CMP [Comprehensive Metabolic Panel] Stat Lab 01/06/24 05:46 Completed Lactic Acid Follow Up (RFLX 1) Stat Lab 01/06/24 10:20 Completed Troponin I Q3H Lab 01/06/24 05:46 Completed Troponin I Q3H Lab 01/06/24 10:20 Completed VBG [Venous Blood Gas] Stat RT 01/06/24 05:54 Completed CA echo doppler complete Routine Y 01/06/24 11:39 Completed ECG Data Tracing #1: I reviewed this ECG and interpreted as documented below: Sinus rhythm, rate of 84, prominent anterior Q waves in the septal leads. These are more prominent but in the same location as prior EKG. Wandering baseline limits interpretation of ST segments though no acute elevation noted at this time. ECG initial impression date: 01/06/24 ECG initial impression time: 05:49 HEART Score History (anamnesis): Slightly suspicious ECG: Non-specific disturbance Age: 45-65 years Risk factors: Atherosclerosis history Medical Decision Narrative: 63-year-old male with history of COPD, ischemic cardiomyopathy, heart failure presents with severe shortness of breath, several days of congestion recently. History was obtained interactive discussion with patient, EMS, chart review. On arrival, patient is afebrile, hemodynamically stable, satting mid 90s on nasal cannula via EMS, moving all extremities spontaneously. Full physical exam performed and significant for marked dyspnea, accessory muscle use, diminished breath sounds and wheezing bilaterally. Differential includes but is not limited to COPD exacerbation, pneumonia, pneumothorax, flash pulmonary edema. Patient was given 1 DuoNeb and 125 Solu-Medrol prior to arrival. Patient was initiated on 2 additional DuoNeb's and IV magnesium for symptomatic management and correction of underlying abnormalities. Workup initiated including chest x-ray EKG CBC CMP troponin BNP. On re-evaluation, patient had marked improvement in respiratory status. He is moving good air now and has only trace wheezing. Satting low 90s on room air currently. Laboratory workup independently interpreted by me and significant for VBG with respiratory acidosis and low PaO2. Also significant for mildly elevated lactate of 3.7. Imaging independently interpreted by me and significant for right midlung opacity, bilateral interstitial opacities. See radiology read for full review of final results. D-dimer/CT PE was considered but deemed unnecessary given history and exam consistent with COPD Given patient history, exam and workup, patient's presentation most likely represents pneumonia and COPD exacerbation. This findings were communicated patient. He was given IV Levaquin for treatment of pneumonia. At this time care handed off to oncoming physician pending observation and reassessment. <Samy Ramírez, DO - Last Filed: 01/06/24 11:55> Vital Signs: 01/06/24 05:42 01/06/24 05:52 01/06/24 05:52 Temperature 98 F Temperature Source Axillary Pulse Rate 79 Pulse Rate [Left] 82 Respiratory Rate 24 Blood Pressure Blood Pressure [Right Arm] 182/74 H Blood Pressure Mean Blood Pressure Mean [Right Arm] 110 Blood Pressure Source Blood Pressure Source [Right Arm] Automatic Cuff Blood Pressure Position Blood Pressure Position [Right Arm] Sitting 02 Sat by Pulse Oximetry 92 L 91 L Oxygen Delivery Method Room Air Room Air Oxygen Flow Rate (LPM) 01/06/24 05:52 01/06/24 05:52 01/06/24 06:00 Temperature Temperature Source Pulse Rate 86 80 82 Pulse Rate [Left] Respiratory Rate 20 26 H Blood Pressure 163/78 H 163/72 H Blood Pressure [Right Arm] Blood Pressure Mean Blood Pressure Mean [Right Arm] Blood Pressure Source Automatic Cuff Blood Pressure Source [Right Arm] Blood Pressure Position Sitting Blood Pressure Position [Right Arm] 02 Sat by Pulse Oximetry 100 100 Oxygen Delivery Method Aerosol Mask Aerosol Mask Oxygen Flow Rate (LPM) 10 10 01/06/24 06:15 01/06/24 06:30 01/06/24 06:45 Temperature Temperature Source Pulse Rate 98 H 93 H 83 Pulse Rate [Left] Respiratory Rate 25 H 20 21 Blood Pressure 168/57 H 150/65 H 152/66 H Blood Pressure [Right Arm] Blood Pressure Mean 94 93 86 Blood Pressure Mean [Right Arm] Blood Pressure Source Blood Pressure Source [Right Arm] Blood Pressure Position Blood Pressure Position [Right Arm] 02 Sat by Pulse Oximetry 95 94 L 94 L Oxygen Delivery Method Nasal Cannula Room Air Room Air Oxygen Flow Rate (LPM) 4 01/06/24 07:00 01/06/24 07:30 01/06/24 08:00 Temperature Temperature Source Pulse Rate 79 87 85 Pulse Rate [Left] Respiratory Rate 20 22 14 Blood Pressure 145/64 H 150/63 H 136/78 Blood Pressure [Right Arm] Blood Pressure Mean 91 92 97 Blood Pressure Mean [Right Arm] Blood Pressure Source Blood Pressure Source [Right Arm] Blood Pressure Position Blood Pressure Position [Right Arm] 02 Sat by Pulse Oximetry 93 L 92 L 93 L Oxygen Delivery Method Oxygen Flow Rate (LPM) 01/06/24 08:30 01/06/24 09:00 01/06/24 09:30 Temperature Temperature Source Pulse Rate 82 83 81 Pulse Rate [Left] Respiratory Rate 16 19 24 Blood Pressure 135/62 139/68 126/63 Blood Pressure [Right Arm] Blood Pressure Mean 100 102 102 Blood Pressure Mean [Right Arm] Blood Pressure Source Blood Pressure Source [Right Arm] Blood Pressure Position Blood Pressure Position [Right Arm] 02 Sat by Pulse Oximetry 92 L 96 94 L Oxygen Delivery Method Oxygen Flow Rate (LPM) Lab Data Lab Results 01/06/24 05:46: WBC 6.9, RBC 3.94 L, Hgb 12.9 L, Hct 40.9 L, MCV 103.9 H, MCH 32.8 H, MCHC 31.6 L, RDW 15.5, Plt Count 96 L, MPV 9.1, Neut % (Auto) 57.2, Lymph % (Auto) 33.9, [place] % (Auto) 7.0, Eos % (Auto) 1.4, Baso % (Auto) 0.6, Neut # (Auto) 3.9, Lymph # (Auto) 2.3, [place] # (Auto) 0.5, Eos # (Auto) 0.1, Baso # (Auto) 0.0, Sodium 141, Potassium 3.7, Chloride 105, Carbon Dioxide 27, Anion Gap 12.7, BUN 11, Creatinine 0.70, Estimated Creat Clear 66, Estimated GFR 113, Est GFR ( Amer) 137, Glucose 111 H, Calcium 8.7, Total Bilirubin 1.8 H, AST 31, ALT 21, Alkaline Phosphatase 74, Troponin I 0.02, Total Protein 6.4, Albumin 3.6, Globulin 2.8, Albumin/Globulin Ratio 1.3 01/06/24 05:54: VBG pH 7.28 L, VBG pCO2 51.9 H, VBG pO2 20.0 L, VBG HCO3 23.7, VBG Total CO2 25.3, VBG O2 Saturation 28.5 L, VBG Base Excess -3.1 L, VBG Lactic Acid 3.7 H 01/06/24 10:20: Lactate 4.8 H, Troponin I 0.55 H Orders (Tests/Meds): ED MEDICATIONS Discontinued Medications Generic Name Dose Route Start Last Admin Trade Name Freq PRN Reason Stop Dose Admin Albuterol/Ipratropium 6 ml 01/06/24 05:44 01/06/24 05:51 Ipratropium/Albuterol 3 Ml Neb IH 01/06/24 05:45 6 ml ONCE ONE Administration Magnesium Sulfate 2 gm in 50 mls @ 50 mls/hr 01/06/24 05:44 01/06/24 05:54 Magnesium Sulfate 2gm/50ml Premix IV 01/06/24 06:43 50 mls/hr ONCE ONE Administration Levofloxacin/Dextrose 250 mg in 50 mls @ 100 mls/hr 01/06/24 06:31 01/06/24 06:41 Levaquin 250mg/50ml Premix IV 01/06/24 07:00 100 mls/hr ONCE ONE Administration Sodium Chloride 1,000 mls @ 999 mls/hr 01/06/24 10:50 01/06/24 11:02 Sod Chlor 0.9% 1000ml Bag IV 01/06/24 11:50 999 mls/hr .Q1H1M ONE Administration Oxycodone HCl 15 mg 01/06/24 06:02 01/06/24 06:05 Oxycodone 5mg Immediate Release Tablet PO 01/06/24 06:03 15 mg ONCE ONE Administration ORDERS Category Date Time Status CXR --portable [XR chest portable] Stat Exams 01/06/24 05:44 Taken CBC w/Auto Diff [Complete Blood Count Auto Diff] Stat Lab 01/06/24 05:46 Completed CMP [Comprehensive Metabolic Panel] Stat Lab 01/06/24 05:46 Completed Lactic Acid Follow Up (RFLX 1) Stat Lab 01/06/24 10:20 Completed Troponin I Q3H Lab 01/06/24 05:46 Completed Troponin I Q3H Lab 01/06/24 10:20 Completed VBG [Venous Blood Gas] Stat RT 01/06/24 05:54 Completed CA echo doppler complete Routine Y 01/06/24 11:39 Completed Medical Decision Narrative: 63-year-old male with history of COPD, ischemic cardiomyopathy, heart failure presents with severe shortness of breath, several days of congestion recently. History was obtained interactive discussion with patient, EMS, chart review. On arrival, patient is afebrile, hemodynamically stable, satting mid 90s on nasal cannula via EMS, moving all extremities spontaneously. Full physical exam performed and significant for marked dyspnea, accessory muscle use, diminished breath sounds and wheezing bilaterally. Differential includes but is not limited to COPD exacerbation, pneumonia, pneumothorax, flash pulmonary edema. Patient was given 1 DuoNeb and 125 Solu-Medrol prior to arrival. Patient was initiated on 2 additional DuoNeb's and IV magnesium for symptomatic management and correction of underlying abnormalities. Workup initiated including chest x-ray EKG CBC CMP troponin BNP. On re-evaluation, patient had marked improvement in respiratory status. He is moving good air now and has only trace wheezing. Satting low 90s on room air currently. Laboratory workup independently interpreted by me and significant for VBG with respiratory acidosis and low PaO2. Also significant for mildly elevated lactate of 3.7. Imaging independently interpreted by me and significant for right midlung opacity, bilateral interstitial opacities. See radiology read for full review of final results. D-dimer/CT PE was considered but deemed unnecessary given history and exam consistent with COPD Given patient history, exam and workup, patient's presentation most likely represents pneumonia and COPD exacerbation. This findings were communicated patient. He was given IV Levaquin for treatment of pneumonia. At this time care handed off to oncoming physician pending observation and reassessment. Dr. Ramírez: Patient was reassessed and remained medically stable and in no acute distress. He is on room air with oxygen saturation in the upper 90s. Patient's initial troponin 0.02. Second opponent elevated at 0.55. I did consult with cardiology and discussed management. They have evaluated the patient has noted that they plan to take patient to the cardiac Rate Setter. Patient did receive fluids for his elevated lactate. I did consult with hospital medicine and discussed management and have agreed to evaluate and admit. Patient agreeable to plan. Procedures <Augustine Hough MD - Last Filed: 01/06/24 07:04> Risk/Benefits of Procedure(s) Were Explained: Yes Critical Care <Augustine Hough MD - Last Filed: 01/06/24 07:04> Critical Care Time Critical Care Time: Yes Attestation: On 01/06/24, the high probability of a clinically significant, sudden or life threatening deterioration of the following system(s) respiratory required my full and direct attention, intervention and personal management. The time I documented below is in addition to time spent performing reported procedures but includes the following listed in this critical care notation. Total Time Total Critical Care Time: 45
[2024-01-06 06:02] LABS: Alanine Aminotransferase 21 U/L (12-78); Albumin Level 3.6 g/dl (3.5-5.0); Albumin/Globulin Ratio 1.3 (1.1-1.8); Alkaline Phosphatase 74 U/L (38-126); Anion Gap 12.7 mEq/L (5-15); Aspartate Amino Transferase 31 U/L (17-59); Bilirubin,Total 1.8 mg/dl (0.2-1.3); Blood Urea Nitrogen 11 mg/dl (9-20); Calcium 8.7 mg/dl (8.4-10.2); Carbon Dioxide 27 mmol/L (22.0-30.0); Chloride 105 mmol/L (98-107); Creatinine Clearance Estimated 66 mL/min (50-200); Estimated Glomerular Filt Rate 113 ml/min (>60); GFR (African American) 137 ML/MIN (>60); Globulin 2.8 g/dL (1.3-3.2); Glucose 111 mg/dl (74-100); Potassium 3.7 mmoL/L (3.5-5.1); Sodium 141 mmol/L (136-145); Total Protein,Serum 6.4 g/dl (6.3-8.2)
[2024-01-06] MEDS: OXYCODONE 5MG IMMEDIATE RELEASE TABLET 15 MG PO ×2 (06:05→22:26)
[2024-01-06 06:13] LABS: Troponin I 0.02 ng/ml (0.00-0.034)
[2024-01-06] MEDS: LEVOFLOXACIN/D5W 250 MG/50 ML PIGGYBACK 100 MG IV (06:41)
--- NOTE | 2024-01-06 07:44 | PC.NURSE ---
gave pt cathy quach'ed by Dr Ramírez
--- NOTE | 2024-01-06 09:20 | PC.NURSE ---
Checked with radiology for CXR read. States it has been read by [facility], sent final read to ER. Handed to .
[2024-01-06 10:00] LABS: Reflex Lactic Add Lactic Reflex
--- NOTE | 2024-01-06 10:43 | PC.NURSE ---
Walked the pt around the ER and his SATS were staying at 97% after walking on room air
[2024-01-06 10:47] LABS: Lactic Acid Follow Up (RFLX 1) 4.8 mmol/L (0.7-2.1)
--- NOTE | 2024-01-06 10:48 | PC.NURSE ---
critical called from lab. notified
[2024-01-06 10:51] LABS: Troponin I 0.55 ng/ml (0.00-0.034)
--- NOTE | 2024-01-06 10:51 | PC.NURSE ---
lab called with critical trop. notified
[2024-01-06] MEDS: 0.9 % SODIUM CHLORIDE 1000ML 1,000 ML 999 ML IV (11:02)
--- NOTE | 2024-01-06 11:30 | PC.NURSE ---
toby at the bedside
--- NOTE | 2024-01-06 11:39 | CA_ITS ---
APPROVED REPORT EXAM: Comprehensive 2D, Doppler, and color-flow Echocardiogram Supervisor Adult Education: Taniya Yuan RT(R) Ht: 5 ft 8 in Wt: 134lbs BSA: 1.72 BP: 181/74 mmHg Indications: respiratory distress, hx CM, mod MR, elevated troponin, COPD, HTN, smoker, fatigue, SOB 2D Dimensions LVEF (Mendoza's) 51.60 % M: 52 - 72 LV Volume 132.40 mL M: 62 - 150 LV Volume Index 76.5 mL/m2 M: 34 - 74 LA Volume 33.20 mL LA Volume Index 19.19 mL/m2 (M/F) 16-34 EF AP4 47.40 % EF AP2 56.3 % EF BP 51.6 % GL Strain -11.7 % M-Mode Dimensions RVDd 2.32 cm (0.9-2.6) LA Diam 3.91 cm (1.9-4.0) LVDd 5.83 cm (3.5-5.7) LVDs 4.54 cm (3.5-5.7) IVSd 0.72 cm (0.6-1.1) PWd 0.68 cm (0.6-1.1) EF (Teich) 44.00% FS 22.10% EDV (Teich) 168.50 mL TAPSE 1.92 (<1.7) ESV (Teich) 94.40 mL LV Diastology E Decel Time 187 (160-240 msec) E/A Ratio 1.3 Aortic Valve VERA Index 1.45 cm2/m2 AoV Peak Marlon. 164.0 (50-130 cm/s) AI PHT 321.00 ms AO Peak GR. 10.70 mmHg AO Mean GR. 5.30 (<5 mmHg) AO VTI 32.1 (18-25 cm) VERA (VTI) 2.56 (2.5-4.5 cm2) Mitral Valve MV E Max Marlon. 123.0 (40-130 cm/s) MV A Velocity 95.0 (40-130 cm/s) E/A Ratio 1.30 MV PHT 55.0 ms Tricuspid Valve TR P. Velocity 330.00 cm/s RAP Estimate 15.00 mmHg RVSP 58.50 mmHg Left Ventricle The left ventricle is normal size (LVEDd=5.7 cm, LVESd=3.7 cm). Left ventricular systolic function is mildly decreased. There is normal left ventricular wall thickness. There is mild global hypokinesis present. There is severe hypokinesis of the inferoseptal LV wall. There is akinesis of the LV apex. Grade 1 diastolic dysfunction is present. LVEF is 40-45%. Right Ventricle The right ventricle is normal size. The right ventricular systolic function is normal. Atria The left atrium size is normal. The right atrium size is normal. There is no Doppler evidence of interatrial shunt. Aortic Valve The aortic valve is mildly thickened. There is no aortic valvular stenosis. Moderate aortic regurgitation. Mitral Valve The mitral valve leaflets are mildly thickened. No evidence of mitral valve stenosis. Moderate mitral regurgitation. Tricuspid Valve There the tricuspid valve leaflets are thin and pliable. Moderate tricuspid regurgitation. RVSP is 50-55 mmHg. Pulmonic Valve The pulmonary valve is normal in structure. Trace pulmonic regurgitation. Great Vessels The aortic root is normal in size. The ascending aorta is normal in size. IVC is normal in size and collapses >50% with inspiration. Pericardium There is no pericardial effusion. Other Information Study Quality: Fair Conclusion Normal LV size (LVEDd=5.7 cm, LVESd=3.7 cm) with mildly reduced LV systolic function (LVEF 40-45%). Severe hypokinesis of the inferoseptal LV wall. There is akinesis of the LV apex. Moderate AR Moderate MR. Moderate TR. RVSP is 50-55 mmHg. Electronically signed by : Rylie Bates MD 01/06/2024 16:44:47
--- NOTE | 2024-01-06 11:50 | PC.NURSE ---
Dr. Ramírez s/w Dr. Shaw for admission.
--- NOTE | 2024-01-06 11:50 | PC.NURSE ---
echo lab is at bedside
--- NOTE | 2024-01-06 11:55 | EXP.HP ---
History of Present Illness *Admission Date: 01/06/24 *Reason for visit:: Shortness of breath, facial pressure *History of present illness: Mr. Steward is a 63-year-old male with extensive cardiac history, CABG in 2003, continues to smoke, has hypertension, COPD, CAD. He presented to the ER because of worsening shortness of breath, sensation of pressure on his face and chest, significant worsening over the past 2 hours. States he has had some shortness of breath for the past 2 to 3 days and thought it was his COPD. Became acutely worse today leading him to come to the ER for evaluation. Continues to smoke half pack of cigarettes a day. No oxygen use at home. EMS was called and reported severe dyspnea with respiratory rate of approximately 65 breaths/min. O2 sats decreased in the mid 80s on room air. Received a DuoNeb, started on oxygen, brought to the ER for evaluation. On arrival to the ER, concern for ACS versus COPD exacerbation. Received additional nebulizers. Workup concerning for elevation in his troponins, went from less than 0.02-0.55. Cardiology consulted and patient taken to the [facility] for unstable angina. Medicine consulted for admission and further management. After heart cath, patient was brought to the floor. Patient denies any current chest pain, nausea vomiting, diarrhea. Is alert and oriented x 3. Family at bedside who helps give history. States he had a CABG with 5 vessels in 2003, had a repeat CABG a few years later. Has been doing well until recently. [facility] report shows severe stenosis of saphenous graft. Received 1 stent to graft. Initiated on goal-directed therapy. Needs monitoring overnight on telemetry. [facility] Disclaimer: The information contained in this section may have been updated after the patient was seen, as this information can be updated by other users. Medical History Mood disorder COPD (chronic obstructive pulmonary disease) Vitamin D deficiency, unspecified Abnormal ultrasound of both kidneys HTN (hypertension) Moderate mitral valve regurgitation Fatigue SOB (shortness of breath) Surgical History Hx of CABG AICD (automatic cardioverter/defibrillator) present Family History Other No significant family history Social History Smoking Status: Current every day smoker tobacco type: cigarettes packs per day: 1 alcohol intake: never substance use type: denies use current occupational status: disabled Travel in the last 8 weeks: None household members: spouse housing: house caffeine: Yes Review of Systems Review of Systems Review of systems (narrative): 14 point review of systems performed, pertinent positives and negatives as per [facility] Meds Home Medications and Allergies Home Medications Medication Instructions Recorded Confirmed Type aspirin 81 mg tablet 81 mg PO DAILY 01/06/24 01/06/24 History atorvastatin 20 mg tablet 20 mg PO HS 01/06/24 01/06/24 History escitalopram oxalate 20 mg tablet 20 mg PO HS 01/06/24 01/06/24 History fluticasone fur. 100 mcg-umeclid 1 inh inhalation DAILY 01/06/24 01/06/24 History 62.5 mcg-vilant 25 mcg inhalat.powder (Trelegy Ellipta) losartan 50 mg tablet 50 mg PO DAILY 01/06/24 01/06/24 History metoprolol succinate 25 mg 25 mg PO HS 01/06/24 01/06/24 History tablet,extended release 24 hr oxycodone 15 mg tablet 15 mg PO TID 01/06/24 01/06/24 History pantoprazole 40 mg tablet,delayed 40 mg PO DAILY 01/06/24 01/06/24 History release New Prescriptions to Start Prescriptions: Allergies Allergy/AdvReac Type Severity Reaction Status Date / Time adhesive tape [ADHESIVE TAPE] Allergy Intermediate I-RASH Verified 01/06/24 14:00 duloxetine [From CYMBALTA] AdvReac Unknown Verified 01/06/24 14:00 Exam Data for Last 24 hours Vital signs and Labs for Last 24 Hours: Temp Pulse Resp BP Pulse Ox O2 Del Method O2 Flow Rate 98 F 81 24 126/63 94 L Room Air 4 01/06/24 05:42 01/06/24 09:30 01/06/24 09:30 01/06/24 09:30 01/06/24 09:30 01/06/24 06:45 01/06/24 06:15 Laboratory Results - last 24 hr 01/06/24 05:46: WBC 6.9, RBC 3.94 L, Hgb 12.9 L, Hct 40.9 L, MCV 103.9 H, MCH 32.8 H, MCHC 31.6 L, RDW 15.5, Plt Count 96 L, MPV 9.1, Neut % (Auto) 57.2, Lymph % (Auto) 33.9, [place] % (Auto) 7.0, Eos % (Auto) 1.4, Baso % (Auto) 0.6, Neut # (Auto) 3.9, Lymph # (Auto) 2.3, [place] # (Auto) 0.5, Eos # (Auto) 0.1, Baso # (Auto) 0.0, Sodium 141, Potassium 3.7, Chloride 105, Carbon Dioxide 27, Anion Gap 12.7, BUN 11, Creatinine 0.70, Estimated Creat Clear 66, Estimated GFR 113, Est GFR ( Amer) 137, Glucose 111 H, Calcium 8.7, Total Bilirubin 1.8 H, AST 31, ALT 21, Alkaline Phosphatase 74, Troponin I 0.02, Total Protein 6.4, Albumin 3.6, Globulin 2.8, Albumin/Globulin Ratio 1.3 01/06/24 05:54: VBG pH 7.28 L, VBG pCO2 51.9 H, VBG pO2 20.0 L, VBG HCO3 23.7, VBG Total CO2 25.3, VBG O2 Saturation 28.5 L, VBG Base Excess -3.1 L, VBG Lactic Acid 3.7 H 01/06/24 10:20: Lactate 4.8 H, Troponin I 0.55 H I & O for Last 24 hours: Intake & Output 01/03/24 01/04/24 01/05/24 01/06/24 23:59 23:59 23:59 23:59 Weight 63.503 kg Constitutional Constitutional: no acute distress and thin *Routine HEENT Exam Head: Present normocephalic Eye: Present EOMI and PERRL ENT: Present mucous membranes moist *Routine Neck Exam Neck: Present supple; Absent lymphadenopathy Routine Chest/Breast/Axilla Exam Comments: Will healed midline scar; defibrillator in place *Routine Respiratory Exam Respiratory: Present prolonged expiratory phase, wheezes and normal respiratory effort; Absent rhonchi or crackles *Routine Cardiovascular Exam Cardiovascular: Present RRR *Routine Abdominal Exam Abdominal: Present soft, normoactive bowel sounds and tenderness (Mild, nonfocal) *Routine Rectal Exam Rectal:: deferred *Routine Genitalia Exam Genitalia:: deferred *Routine Extremities Exam Extremities: Absent cyanosis, clubbing or edema *Routine Skin Exam Skin: Present warm; Absent rash *Routine Neurological Exam Neurological: Present alert, oriented X3 and moving all extremities; Absent altered mental status Assessment and Plan *Assessment and plan (1) Unstable angina: Status: Acute Category: Medical Code(s): I20.0 - Unstable angina (2) NSTEMI (non-ST elevated myocardial infarction): Status: Acute Category: Medical Code(s): I21.4 - Non-ST elevation (NSTEMI) myocardial infarction (3) Respiratory failure with hypoxia and hypercapnia: Status: Acute Category: Medical Code(s): J96.91 - Respiratory failure, unspecified with hypoxia; J96.92 - Respiratory failure, unspecified with hypercapnia (4) COPD exacerbation: Status: Acute Category: Medical Code(s): J44.1 - Chronic obstructive pulmonary disease with (acute) exacerbation (5) CKD (chronic kidney disease): Status: Acute Category: Medical Code(s): N18.9 - Chronic kidney disease, unspecified (6) NYHA class 2 acute on chronic systolic heart failure: Status: Chronic Category: Medical Code(s): I50.23 - Acute on chronic systolic (congestive) heart failure (7) Ischemic cardiomyopathy with implantable cardioverter-defibrillator (ICD): Status: Acute Category: Medical Code(s): I25.5 - Ischemic cardiomyopathy; Z95.810 - Presence of automatic (implantable) cardiac defibrillator (8) PAD (peripheral artery disease): Status: Chronic Category: Medical Code(s): I73.9 - Peripheral vascular disease, unspecified (9) HHD (hypertensive heart disease): Status: Chronic Qualifiers: Heart failure presence: without heart failure Qualified Code(s): I11.9 - Hypertensive heart disease without heart failure Category: Medical Code(s): I11.9 - Hypertensive heart disease without heart failure (10) HLD (hyperlipidemia): Status: Chronic Qualifiers: Hyperlipidemia type: mixed hyperlipidemia Qualified Code(s): E78.2 - Mixed hyperlipidemia Category: Medical Code(s): E78.5 - Hyperlipidemia, unspecified (11) CAD (coronary artery disease): Status: Chronic Qualifiers: Associated angina: without angina Coronary Disease-Associated Artery/Lesion type: [place] artery [place] vs. transplanted heart: [place] heart Qualified Code(s): I25.10 - Atherosclerotic heart disease of [place] coronary artery without angina pectoris Category: Medical Code(s): I25.10 - Atherosclerotic heart disease of [place] coronary artery without angina pectoris (12) HTN (hypertension): Status: Acute Qualifiers: Hypertension type: unspecified Qualified Code(s): I10 - Essential (primary) hypertension Category: Medical Code(s): I10 - Essential (primary) hypertension Plan 63-year-old male with significant cardiac history. Presented with unstable angina and NSTEMI. Taken to the [facility] with successful stenting of saphenous graft. Discussed case with ER, request admission for monitoring after heart cath. Discussed case with cardiology, will initiate on dual antiplatelet therapy monitor overnight. Medicine agreed to admit. Problems addressed as follows: Unstable angina NYHA class II heart failure with reduced ejection fraction NSTEMI -Successful stenting of saphenous graft. See [facility] report for full details -Continue aspirin 81 mg daily, Plavix 75 mg daily. Patient concerned he is intolerant of statins, continue lipid for 20 mg nightly. -CBC, CMP, lipid panel pending for the morning. -Continue losartan 50 mg daily for hypertension, metoprolol 25 mg nightly -Monitor on telemetry overnight. Mood disorder: Continue Lexapro 20 mg nightly COPD: Continue Trelegy daily and DuoNebs as needed every 6 hours Chronic pain: Continue oxycodone 15 mg 3 times a day GERD: Continue pantoprazole 40 mg daily Tobacco use disorder: Nicotine patch as needed Full code Heparinized and [facility] Cardiac diet
--- NOTE | 2024-01-06 11:58 | PC.NURSE ---
pt assigned to room 211. admissions called.
--- NOTE | 2024-01-06 11:59 | PC.NURSE ---
s/w [place] for bed request @ 0539, [facility] M/S floor room 211.
--- NOTE | 2024-01-06 12:13 | PC.NURSE ---
Report called to NIURKA Vogel on Med Surg.
[2024-01-06 12:25] LABS: Reflex Lactic (2 hrs) Add Lactic Reflex
--- NOTE | 2024-01-06 12:44 | IR_ITS ---
APPROVED REPORT Patient Location: Inpatient Senior Strategy Manager: MARCELINA Bethea RT (R) PROCEDURES Left heart catheterization Left ventriculogram Selective coronary angiogram Selective engagement of the saphenous vein graft supplying the first and second obtuse marginal artery Selective engagement of the saphenous vein graft to the LAD Selective engagement of the saphenous vein graft to the right coronary Drug-eluting stent deployment to the saphenous vein graft supplying the second obtuse marginal artery INDICATION Acute non-ST elevation myocardial infarction, Coronary artery disease, History of coronary bypass surgery Informed consent was obtained prior to the procedure. COMPLICATIONS NONE Estimated Blood Loss: LESS THAN 10 ML TECHNIQUE One percent lidocaine used to anesthetize the right anterior aspect of the wrist. The right radial artery was accessed via the Seldinger technique. A 6 [place] sheath was placed in the right radial artery. 2.5 mg of Verapamil, 800 mcg of nitroglycerin, 1mg Lidocaine and 5000 U Heparin were given through the arterial sheath. The papa catheter was also used to perform left heart catheterization, left ventriculogram and selective coronary angiogram as well as selective engagement of 3 saphenous vein grafts. 1 saphenous vein graft bifurcated into a Y graft in which 1 bifurcation supplied the first obtuse marginal artery and the second bifurcation and supply the second obtuse marginal artery. There was an additional saphenous vein grafts which supplied the LAD as well as an additional vein graft which supplied the right coronary arteries posterior descending artery. At the end of the diagnostic angiogram therapeutic Was administered giving a therapeutic ACT and the guide catheter was placed in the saphenous vein graft supplying the first and second obtuse marginal artery. Choice PT extra-support wire was placed into the Y graft which supplied the second obtuse marginal artery and a 3.5 x 38 mm Anderson frontier stent was deployed at 26 deepthi reducing the stenosis to 0%. ZACARIAS-3 flow was present before and after the procedure. At the end the procedure the apparatus was removed the sheath was removed and hemostasis was achieved using TR banding patient was transferred to the postop putting in stable condition ANGIOGRAPHIC RESULTS The left main artery Widely patent The left anterior descending artery Proximally occluded The circumflex artery Gives rise to a small to medium sized ramus intermedius which is 1.5 mm in diameter and has a mid vessel 60 to 70% stenosis. The circumflex artery is then occluded after the ramus intermedius The right coronary artery Is a dominant vessel and occluded after an RV marginal branch The MELENDREZ ventriculogram reveals Mid anterior apical hypokinesis estimated ejection fraction 35% with apical ballooning The left ventricular end-diastolic pressure 35 mmHg MONK graft was known to be occluded from previous angiography Saphenous vein graft to LAD is widely patent Saphenous vein graft to RCA/posterior descending artery is widely patent Saphenous vein graft to the circumflex artery bifurcates proximally with 1 branch supplying the first obtuse marginal artery which is widely patent while the second branch supplying the second obtuse marginal artery has a long tubular 70% stenosis IMPRESSION Severe disease in the saphenous vein graft supplying the second obtuse marginal artery with successful stenting of the saphenous vein graft reducing lesion to 0% with 1 drug-eluting stent Mid anterior apical ballooning with severely reduced ejection fraction in which clinical correlation and previous echocardiography is advised Elevated LVEDP PLAN 1. Dual antiplatelet therapy 2. Recommend echocardiogram 3. Patient does have apical ballooning with mid anterior apical hypokinesis suggestive of a possible previous anterior apical myocardial infarction and or possible Takotsubo cardiomyopathy. Clinical correlation is advised with correlation with echocardiogram 4. Treatment of elevated LVEDP 5. Supportive care 6. Possible LifeVest if echocardiogram demonstrates an ejection fraction 35% or less 7. LDL less than 55 to proceed with high intensity statin 8. Standard therapy for LV dysfunction Electronically signed by : Gurvinder Tan MD 01/06/2024 15:47:16
--- NOTE | 2024-01-06 12:45 | PC.NURSE ---
Pt arrived to the floor at this time via w/c
[2024-01-06 13:40] LABS: Lactic Acid Follow up (RFLX 2) 4.8 mmol/L (0.7-2.1)
--- NOTE | 2024-01-06 14:57 | P.CONCA_ITS ---
History of Present Illness History of Present Illness Consult date: 01/06/24 Requesting physician: Cr Shaw Consult reason: chest pain and shortness of breath Chief complaint: dypsnea History of present illness: This is a 63-year-old white male with past medical history of CAD status post CABG COPD, chronic kidney disease, ischemic cardiomyopathy/HFimpEF status post AICD who presented to emergency department with complaints of shortness of breath. Patient reports he awoke from sleep prior to arrival with severe shortness of breath, diaphoresis and chest pressure. Upon EMS arrival patient was noted to be hypoxic and tachypneic. Patient was given DuoNeb and IV Solu- Medrol and route and was feeling much better upon arrival to emergency department. Patient does endorse intermittent chest pain for the past few days associated with shortness of breath. EKG upon arrival to emergency department shows a sinus rhythm at a rate of 84 with prominent anterior Q waves in the septal leads are more prominent than prior EKG. Labs were as follow: WBC 6.9, hemoglobin 12.9, creatinine 0.7, lactate 4.8, troponin 0.02 trending up to 0.55. Chest x-ray shows mild bibasilar opacities likely atelectasis or scarring. Given patient's symptoms and elevated troponin patient will be taken to [facility] today for further evaluation. Echocardiogram has been ordered and is pending. [facility] Disclaimer: The information contained in this section may have been updated after the patient was seen, as this information can be updated by other users. Medical History (Updated 01/06/24 @ 15:08 by Lucila Lau APRN) Mood disorder COPD (chronic obstructive pulmonary disease) Vitamin D deficiency, unspecified Abnormal ultrasound of both kidneys HTN (hypertension) Moderate mitral valve regurgitation Fatigue SOB (shortness of breath) Surgical History Hx of CABG AICD (automatic cardioverter/defibrillator) present Family History (Updated 01/06/24 @ 14:09 by Kiara Mendoza RN) Other No significant family history Social History (Updated 01/06/24 @ 14:11 by Kiara Mendoza RN) Smoking Status: Current every day smoker tobacco type: cigarettes packs per day: 1 alcohol intake: never substance use type: denies use current occupational status: disabled Travel in the last 8 weeks: None household members: spouse housing: house caffeine: Yes Review of Systems Review of Systems Review of systems:: pertinent systems reviewed and negative unless documented below *Cardiovascular Cardiovascular: Reports chest pain and Reports dyspnea *Respiratory Respiratory: Reports dyspnea Exam Data for Last 24 hours Vital signs and Labs for Last 24 Hours: Temp Pulse Resp BP Pulse Ox O2 Del Method O2 Flow Rate 97.8 F 73 20 139/70 94 L Room Air 4 01/06/24 13:10 01/06/24 13:10 01/06/24 13:10 01/06/24 13:10 01/06/24 13:10 01/06/24 13:37 01/06/24 06:15 Laboratory Results - last 24 hr 01/06/24 05:46: WBC 6.9, RBC 3.94 L, Hgb 12.9 L, Hct 40.9 L, MCV 103.9 H, MCH 32.8 H, MCHC 31.6 L, RDW 15.5, Plt Count 96 L, MPV 9.1, Neut % (Auto) 57.2, Lymph % (Auto) 33.9, [place] % (Auto) 7.0, Eos % (Auto) 1.4, Baso % (Auto) 0.6, Neut # (Auto) 3.9, Lymph # (Auto) 2.3, [place] # (Auto) 0.5, Eos # (Auto) 0.1, Baso # (Auto) 0.0, Sodium 141, Potassium 3.7, Chloride 105, Carbon Dioxide 27, Anion Gap 12.7, BUN 11, Creatinine 0.70, Estimated Creat Clear 66, Estimated GFR 113, Est GFR ( Amer) 137, Glucose 111 H, Calcium 8.7, Total Bilirubin 1.8 H, AST 31, ALT 21, Alkaline Phosphatase 74, Troponin I 0.02, Total Protein 6.4, Albumin 3.6, Globulin 2.8, Albumin/Globulin Ratio 1.3 01/06/24 05:54: VBG pH 7.28 L, VBG pCO2 51.9 H, VBG pO2 20.0 L, VBG HCO3 23.7, VBG Total CO2 25.3, VBG O2 Saturation 28.5 L, VBG Base Excess -3.1 L, VBG Lactic Acid 3.7 H 01/06/24 10:20: Lactate 4.8 H, Troponin I 0.55 H 01/06/24 12:45: Lactate 4.8 H I & O for Last 24 hours: Intake & Output 01/03/24 01/04/24 01/05/24 01/06/24 23:59 23:59 23:59 23:59 Output Total 200 / 200 Balance -200 / -200 Weight 141 lb 5 oz Constitutional Constitutional: no acute distress *Routine Respiratory Exam Respiratory: Present CTA bilaterally and symmetric chest movement *Routine Cardiovascular Exam Cardiovascular: Present RRR, Normal S1 and Normal S2 Comments: Pale *Routine Abdominal Exam Abdominal: Present soft and normoactive bowel sounds; Absent tenderness *Routine Extremities Exam Extremities: Present full ROM and normal capillary refill; Absent edema *Routine Skin Exam Skin: Present intact, dry and warm Detailed Neck Exam: Thyroids Thyroid: Absent bruit Meds Home Medications and Allergies Home Medications Medication Instructions Recorded Confirmed Type aspirin 81 mg tablet 81 mg PO DAILY 01/06/24 01/06/24 History atorvastatin 20 mg tablet 20 mg PO HS 01/06/24 01/06/24 History escitalopram oxalate 20 mg tablet 20 mg PO HS 01/06/24 01/06/24 History fluticasone fur. 100 mcg-umeclid 1 inh inhalation DAILY 01/06/24 01/06/24 History 62.5 mcg-vilant 25 mcg inhalat.powder (Trelegy Ellipta) losartan 50 mg tablet 50 mg PO DAILY 01/06/24 01/06/24 History metoprolol succinate 25 mg 25 mg PO HS 01/06/24 01/06/24 History tablet,extended release 24 hr oxycodone 15 mg tablet 15 mg PO TID 01/06/24 01/06/24 History pantoprazole 40 mg tablet,delayed 40 mg PO DAILY 01/06/24 01/06/24 History release New Prescriptions to Start Prescriptions: Allergies Allergy/AdvReac Type Severity Reaction Status Date / Time adhesive tape [ADHESIVE TAPE] Allergy Intermediate I-RASH Verified 01/06/24 14:00 duloxetine [From CYMBALTA] AdvReac Unknown Verified 01/06/24 14:00 Assessment and Plan *Assessment and plan (1) Elevated troponin: Status: Acute Category: Medical Code(s): R79.89 - Other specified abnormal findings of blood chemistry (2) Respiratory failure with hypoxia and hypercapnia: Status: Acute Category: Medical Code(s): J96.91 - Respiratory failure, unspecified with hypoxia; J96.92 - Respiratory failure, unspecified with hypercapnia (3) COPD exacerbation: Status: Acute Category: Medical Code(s): J44.1 - Chronic obstructive pulmonary disease with (acute) exacerbation (4) Acute on chronic HFrEF (heart failure with reduced ejection fraction): Status: Acute Category: Medical Code(s): I50.23 - Acute on chronic systolic (congestive) heart failure (5) Ischemic cardiomyopathy with implantable cardioverter-defibrillator (ICD): Status: Acute Category: Medical Code(s): I25.5 - Ischemic cardiomyopathy; Z95.810 - Presence of automatic (implantable) cardiac defibrillator (6) CAD (coronary artery disease): Status: Chronic Qualifiers: Coronary Disease-Associated Artery/Lesion type: [place] artery [place] vs. transplanted heart: [place] heart Associated angina: without angina Qualified Code(s): I25.10 - Atherosclerotic heart disease of [place] coronary artery without angina pectoris Category: Medical Code(s): I25.10 - Atherosclerotic heart disease of [place] coronary artery without angina pectoris (7) NSTEMI (non-ST elevated myocardial infarction): Status: Acute Category: Medical Code(s): I21.4 - Non-ST elevation (NSTEMI) myocardial infarction Plan History of coronary artery disease Status post CABG NSTEMI Troponin elevated from 0.02-0.55 EKG is negative for STEMI Patient does endorse chest pressure and dyspnea, reports symptoms were severe this morning associated with diaphoresis Given patient's cardiac history and symptoms with a slightly elevated tro ponin we will proceed with left heart catheterization to further evaluate for ischemic disease. John risk versus benefits with patient he is agreeable to proceed Echocardiogram is pending Continue aspirin 81 mg daily, atorvastatin 20 mg daily, losartan 50 mg daily, metoprolol succinate 25 mg p.o. daily Chronic HFimpEF Status post AICD Echo 12/2022 showed an improved ejection fraction to 55%, grade 2 diastolic dysfunction Repeat echo pending Continue losartan and metoprolol Acute COPD exacerbation Patient does endorse worsening shortness of breath and cough Shortness of breath did improve with Solu-Medrol and neb treatments VBG reviewed Respiratory acidosis present CV summary 01/06/2024: Echocardiogram and left heart catheterization is pending.
[2024-01-06] MEDS: HEPARIN 1,000 UNITS/500ML NS (CATH LAB) 3000 UNIT IV (15:14)
[2024-01-06] MEDS: HEPARIN 1,000 UNITS/ML 10ML VIAL (CATH LAB) 10000 UNIT IV (15:14)
[2024-01-06] MEDS: 0.9 % SODIUM CHLORIDE 500 ML 25 ML IV (15:14)
[2024-01-06] MEDS: VERAPAMIL 2.5MG/ML 2ML VIAL 2.5 MG IV (15:15)
[2024-01-06] MEDS: LIDOCAINE 1% 10ML MDV 20 ML IJ (15:15)
[2024-01-06] MEDS: NITROGLYCERIN 800MCG/8ML SYR (CATH LAB) 800 MCG IA (15:15)
[2024-01-06] MEDS: diphenhydrAMINE 50MG/ML VIAL 50 MG IV (15:15)
[2024-01-06] MEDS: MIDAZOLAM HCL 1MG/1ML 5ML VIAL 1 MG IV (15:17)
[2024-01-06] MEDS: FENTANYL 100MCG/2ML VIAL 50 MCG IV (15:17)
[2024-01-06] MEDS: PROPOFOL 10MG/ML 20ML VIAL 50 MG IV (15:20)
[2024-01-06] MEDS: CLOPIDOGREL 300MG TABLET 600 MG PO (15:25)
[2024-01-06 15:59] LABS: CATHL Activated Clotting Time > 400 SEC (74-125)
[2024-01-06] MEDS: IPRATROPIUM/ALBUTEROL 3 ML NEB IH ×2 (18:32→23:25)
--- NOTE | 2024-01-06 18:58 | PC.NURSE ---
Right cath device removed and 2x2 non adherent dressing placed with a tegaderm.
[2024-01-06] MEDS: METOPROLOL SUCCINATE XL 25MG TABLET 25 MG PO (22:26)
[2024-01-06] MEDS: ATORVASTATIN 20MG TABLET 20 MG PO (22:28)
[2024-01-07] VITALS (9 sets, daily range): BP systolic 121–143; BP diastolic 54–75; PULSE 63–80; RESP 18–20; TEMP 36.4–36.8; O2SAT 94–96; BMI 21.5
[2024-01-07 06:44] LABS: Basophils % 0.2 % (0.1-2.0); Eosinophils % 0.2 % (0.1-12.0); Hematocrit 35.9 % (42.0-52.0); Hemoglobin 11.7 g/dL (14.1-18.0); Lymphocytes # 1.7 K/mm3 (0.7-4.5); Lymphocytes % 27.6 % (10-50); Mean Corpuscular HGB Conc 32.7 g/dL (31.8-35.4); Mean Corpuscular Hemoglobin 32.9 pg (27.0-31.2); Mean Corpuscular Volume 100.9 fl (80-94); Mean Platelet Volume 9.1 fl (7.4-10.4); Monocytes # 0.4 K/mm3 (0.1-1.0); Neutrophils # 4.1 K/mm3 (1.8-7.8); Neutrophils % 65.1 % (37.0-80.0); Platelet Count 88 K/mm3 (142-424); Red Blood Count 3.56 M/mm3 (4.60-6.20); Red Cell Distribution Width 15.6 % (11.5-17.5); White Blood Count 6.3 K/mm3 (4.8-10.8)
[2024-01-07] MEDS: IPRATROPIUM/ALBUTEROL 3 ML NEB IH ×2 (06:44→10:58)
[2024-01-07 06:57] LABS: Alanine Aminotransferase 14 U/L (12-78); Albumin Level 3.4 g/dl (3.5-5.0); Albumin/Globulin Ratio 1.2 (1.1-1.8); Alkaline Phosphatase 67 U/L (38-126); Anion Gap 9.6 mEq/L (5-15); Aspartate Amino Transferase 29 U/L (17-59); Bilirubin,Total 1.2 mg/dl (0.2-1.3); Blood Urea Nitrogen 14 mg/dl (9-20); Calcium 9.2 mg/dl (8.4-10.2); Carbon Dioxide 30 mmol/L (22.0-30.0); Chloride 104 mmol/L (98-107); Creatinine Clearance Estimated 67 mL/min (50-200); Estimated Glomerular Filt Rate 113 ml/min (>60); GFR (African American) 137 ML/MIN (>60); Globulin 2.8 g/dL (1.3-3.2); Glucose 98 mg/dl (74-100); Magnesium 1.9 mg/dl (1.6-2.3); Potassium 4.6 mmoL/L (3.5-5.1); Sodium 139 mmol/L (136-145); Total Protein,Serum 6.2 g/dl (6.3-8.2)
--- NOTE | 2024-01-07 07:57 | EXP.DC.SUM ---
General Admission date:: 01/06/24 Discharge date: 01/07/24 HPI HPI HPI: Mr. Steward is a 63-year-old male with extensive cardiac history, CABG in 2003, continues to smoke, has hypertension, COPD, CAD. He presented to the ER because of worsening shortness of breath, sensation of pressure on his face and chest, significant worsening over the past 2 hours. States he has had some shortness of breath for the past 2 to 3 days and thought it was his COPD. Became acutely worse today leading him to come to the ER for evaluation. Continues to smoke half pack of cigarettes a day. No oxygen use at home. EMS was called and reported severe dyspnea with respiratory rate of approximately 65 breaths/min. O2 sats decreased in the mid 80s on room air. Received a DuoNeb, started on oxygen, brought to the ER for evaluation. On arrival to the ER, concern for ACS versus COPD exacerbation. Received additional nebulizers. Workup concerning for elevation in his troponins, went from less than 0.02-0.55. Cardiology consulted and patient taken to the [facility] for unstable angina. Medicine consulted for admission and further management. After heart cath, patient was brought to the floor. Patient denies any current chest pain, nausea vomiting, diarrhea. Is alert and oriented x 3. Family at bedside who helps give history. States he had a CABG with 5 vessels in 2003, had a repeat CABG a few years later. Has been doing well until recently. [facility] report shows severe stenosis of saphenous graft. Received 1 stent to graft. Initiated on goal-directed therapy. Needs monitoring overnight on telemetry. Hospital Course Hospital Course Hospital Course: 63-year-old male with significant cardiac history. Presented with unstable angina and NSTEMI. Taken to the [facility] with successful stenting of saphenous graft. Discussed case with ER, request admission for monitoring after heart cath. Discussed case with cardiology, will initiate on dual antiplatelet therapy monitor overnight. Medicine agreed to admit. Patient did well overnight. No further chest pain. Stable on room air. Stable to discharge home on goal-directed therapy. Problems addressed as follows: Unstable angina NYHA class II heart failure with reduced ejection fraction NSTEMI History of CABG -Cardiology consulted. Patient had elevation in troponin from less than 0.02 to 0.55. Was taken to the [facility] with successful stenting of saphenous graft. See [facility] report for full details. Will continue aspirin 81 mg daily and Plavix 75 mg daily for dual antiplatelet therapy. In regard to additional medications for cardiovascular disease, will continue Lipitor 20 mg daily, metoprolol succinate 25mg nightly, initiate Entresto 24/26 mg twice daily, initiate spironolactone well with his daily, and gait Lasix 20 mg daily. Will also start Jardiance 10 mg daily. Repeat labs in the morning showed stable kidney function and electrolytes. Monitored overnight on telemetry with no events. Chest pain resolved. Stable to discharge home with close follow-up as an outpatient with cardiology. Mood disorder: Continue Lexapro 20 mg nightly COPD: Continue Trelegy daily and DuoNebs as needed every 6 hours Chronic pain: Continue oxycodone 15 mg 3 times a day GERD: Continue pantoprazole 40 mg daily Tobacco use disorder: Nicotine patch as needed Patient was observation from the start of admission. Exam Data for Last 24 hours Vital signs and Labs for Last 24 Hours: Temp Pulse Resp BP Pulse Ox O2 Del Method O2 Flow Rate 97.8 F 68 18 132/54 L 96 Room Air 4 01/07/24 07:28 01/07/24 07:28 01/07/24 07:28 01/07/24 07:28 01/07/24 07:28 01/07/24 07:28 01/06/24 06:15 Laboratory Results - last 24 hr 01/06/24 10:20: Lactate 4.8 H, Troponin I 0.55 H 01/06/24 12:45: Lactate 4.8 H 01/06/24 15:08: Activated Clotting Time > 400 H* 01/07/24 06:05: WBC 6.3, RBC 3.56 L, Hgb 11.7 L, Hct 35.9 L, MCV 100.9 H, MCH 32.9 H, MCHC 32.7, RDW 15.6, Plt Count 88 L, MPV 9.1, Neut % (Auto) 65.1, Lymph % (Auto) 27.6, [place] % (Auto) 7.0, Eos % (Auto) 0.2, Baso % (Auto) 0.2, Neut # (Auto) 4.1, Lymph # (Auto) 1.7, [place] # (Auto) 0.4, Eos # (Auto) 0.0, Baso # (Auto) 0.0, Sodium 139, Potassium 4.6 D, Chloride 104, Carbon Dioxide 30, Anion Gap 9.6, BUN 14 D, Creatinine 0.70, Estimated Creat Clear 67, Estimated GFR 113, Est GFR ( Amer) 137, Glucose 98, Calcium 9.2, Magnesium 1.9, Total Bilirubin 1.2, AST 29, ALT 14 D, Alkaline Phosphatase 67, Total Protein 6.2 L, Albumin 3.4 L, Globulin 2.8, Albumin/Globulin Ratio 1.2 I & O for Last 24 hours: Intake & Output 01/04/24 01/05/24 01/06/24 01/07/24 23:59 23:59 23:59 23:59 Intake Total 300 / 300 Output Total 450 / 450 200 / 200 Balance -450 / -150 100 / 100 Weight 64.098 kg 64.501 kg Constitutional Constitutional: no acute distress, average body habitus and chronically ill appearing *Routine HEENT Exam Head: Present normocephalic Eye: Present EOMI and PERRL ENT: Present mucous membranes moist *Routine Neck Exam Neck: Present supple; Absent lymphadenopathy Routine Chest/Breast/Axilla Exam Comments: AICD in place, well-healed midline scar *Routine Respiratory Exam Respiratory: Present prolonged expiratory phase, wheezes and normal respiratory effort; Absent rhonchi or crackles *Routine Cardiovascular Exam Cardiovascular: Present RRR *Routine Abdominal Exam Abdominal: Present soft and normoactive bowel sounds; Absent tenderness *Routine Rectal Exam Patient deferred: visual exam *Routine Exam Patient deferred: penile exam *Routine Extremities Exam Extremities: Absent cyanosis, clubbing or edema *Routine Skin Exam Skin: Present warm; Absent rash *Routine Neurological Exam Neurological: Present alert, oriented X3 and moving all extremities; Absent altered mental status Results Data Completed and Pending Labs on day of discharge: Labs from last 24 hours 01/07/24 01/06/24 01/06/24 06:05 15:08 12:45 WBC 6.3 RBC 3.56 L Hgb 11.7 L Hct 35.9 L MCV 100.9 H MCH 32.9 H MCHC 32.7 RDW 15.6 Plt Count 88 L MPV 9.1 Neut % (Auto) 65.1 Lymph % (Auto) 27.6 [place] % (Auto) 7.0 Eos % (Auto) 0.2 Baso % (Auto) 0.2 Neut # (Auto) 4.1 Lymph # (Auto) 1.7 [place] # (Auto) 0.4 Eos # (Auto) 0.0 Baso # (Auto) 0.0 Activated Clotting Time > 400 H* Sodium 139 Potassium 4.6 D Chloride 104 Carbon Dioxide 30 Anion Gap 9.6 BUN 14 D Creatinine 0.70 Estimated Creat Clear 67 Estimated GFR 113 Est GFR ( Amer) 137 Glucose 98 Lactate 4.8 H Calcium 9.2 Magnesium 1.9 Total Bilirubin 1.2 AST 29 ALT 14 D Alkaline Phosphatase 67 Troponin I Total Protein 6.2 L Albumin 3.4 L Globulin 2.8 Albumin/Globulin Ratio 1.2 01/06/24 10:20 WBC RBC Hgb Hct MCV MCH MCHC RDW Plt Count MPV Neut % (Auto) Lymph % (Auto) [place] % (Auto) Eos % (Auto) Baso % (Auto) Neut # (Auto) Lymph # (Auto) [place] # (Auto) Eos # (Auto) Baso # (Auto) Activated Clotting Time Sodium Potassium Chloride Carbon Dioxide Anion Gap BUN Creatinine Estimated Creat Clear Estimated GFR Est GFR ( Amer) Glucose Lactate 4.8 H Calcium Magnesium Total Bilirubin AST ALT Alkaline Phosphatase Troponin I 0.55 H Total Protein Albumin Globulin Albumin/Globulin Ratio DS: Diagnosis Discharge Diagnosis (1) Unstable angina: Status: Acute Code(s): I20.0 - Unstable angina (2) NSTEMI (non-ST elevated myocardial infarction): Status: Acute Code(s): I21.4 - Non-ST elevation (NSTEMI) myocardial infarction (3) Respiratory failure with hypoxia and hypercapnia: Status: Acute Code(s): J96.91 - Respiratory failure, unspecified with hypoxia; J96.92 - Respiratory failure, unspecified with hypercapnia (4) COPD exacerbation: Status: Acute Code(s): J44.1 - Chronic obstructive pulmonary disease with (acute) exacerbation (5) CKD (chronic kidney disease): Status: Acute Code(s): N18.9 - Chronic kidney disease, unspecified (6) NYHA class 2 acute on chronic systolic heart failure: Status: Chronic Code(s): I50.23 - Acute on chronic systolic (congestive) heart failure (7) Ischemic cardiomyopathy with implantable cardioverter-defibrillator (ICD): Status: Acute Code(s): I25.5 - Ischemic cardiomyopathy; Z95.810 - Presence of automatic (implantable) cardiac defibrillator (8) PAD (peripheral artery disease): Status: Chronic Code(s): I73.9 - Peripheral vascular disease, unspecified (9) HHD (hypertensive heart disease): Status: Chronic Code(s): I11.9 - Hypertensive heart disease without heart failure Qualifiers: Heart failure presence: without heart failure Qualified Code(s): I11.9 - Hypertensive heart disease without heart failure (10) HLD (hyperlipidemia): Status: Chronic Code(s): E78.5 - Hyperlipidemia, unspecified Qualifiers: Hyperlipidemia type: mixed hyperlipidemia Qualified Code(s): E78.2 - Mixed hyperlipidemia (11) CAD (coronary artery disease): Status: Chronic Code(s): I25.10 - Atherosclerotic heart disease of [place] coronary artery without angina pectoris Qualifiers: Associated angina: without angina Coronary Disease-Associated Artery/Lesion type: [place] artery [place] vs. transplanted heart: [place] heart Qualified Code(s): I25.10 - Atherosclerotic heart disease of [place] coronary artery without angina pectoris (12) HTN (hypertension): Status: Acute Code(s): I10 - Essential (primary) hypertension Qualifiers: Hypertension type: unspecified Qualified Code(s): I10 - Essential (primary) hypertension Meds Home Medications and Allergies Home Medications Medication Instructions Recorded Confirmed Type aspirin 81 mg tablet 81 mg PO DAILY 01/06/24 01/06/24 History atorvastatin 20 mg tablet 20 mg PO HS 01/06/24 01/06/24 History escitalopram oxalate 20 mg tablet 20 mg PO HS 01/06/24 01/06/24 History fluticasone fur. 100 mcg-umeclid 1 inh inhalation DAILY 01/06/24 01/06/24 History 62.5 mcg-vilant 25 mcg inhalat.powder (Trelegy Ellipta) metoprolol succinate 25 mg 25 mg PO HS 01/06/24 01/06/24 History tablet,extended release 24 hr oxycodone 15 mg tablet 15 mg PO TID 01/06/24 01/06/24 History pantoprazole 40 mg tablet,delayed 40 mg PO DAILY 01/06/24 01/06/24 History release clopidogrel 75 mg tablet 75 mg PO DAILY 30 days #30 tabs 01/07/24 Rx empagliflozin 10 mg tablet 10 mg PO DAILY 30 days #30 tabs 01/07/24 Rx (Jardiance) furosemide 20 mg tablet 20 mg PO DAILY 30 days #30 tabs 01/07/24 Rx sacubitril 24 mg-valsartan 26 mg 1 tab PO BID 30 days #60 tabs 01/07/24 Rx tablet (Entresto) spironolactone 25 mg tablet 12.5 mg (1/2 x 25 mg) PO DAILY 30 01/07/24 Rx days #15 tabs New Prescriptions to Start Prescriptions: Cr Cavanaugh empagliflozin [Jardiance] Cr Shaw furosemide Cr Shaw sacubitril-valsartan [Entresto] Colin,Cr spironolactone Cr Shaw Allergies Allergy/AdvReac Type Severity Reaction Status Date / Time adhesive tape [ADHESIVE TAPE] Allergy Intermediate I-RASH Verified 01/06/24 14:00 duloxetine [From CYMBALTA] AdvReac Unknown Verified 01/06/24 14:00 Discharge Plan Disposition Patient Disposition: Home, Self-Care Condition: Good Discharge Order Discharge Orders: Discharge Order (Routine); Ordered 01/07/24 Ordered By: Cr Shaw Follow up Plan Follow up with: Gurvinder Tan MD [Staff Physician] - Enter time for follow up Prescriptions/Medication Reconciliation: New clopidogrel 75 mg Tablet 75 mg PO DAILY 30 Days Qty: 30 0RF Jardiance 10 mg Tablet 10 mg PO DAILY 30 Days Qty: 30 0RF furosemide 20 mg Tablet 20 mg PO DAILY 30 Days Qty: 30 0RF Entresto 24-26 mg Tablet 1 tab PO BID 30 Days Qty: 60 0RF spironolactone 25 mg Tablet 12.5 mg PO DAILY 30 Days Qty: 15 0RF Continued atorvastatin 20 mg tablet 20 mg PO HS Patient Comments: TAKE 1 TABLET BY MOUTH NIGHTLY. oxycodone 15 mg tablet 15 mg PO TID Patient Comments: TAKE 1 TABLET BY MOUTH THREE TIMES A DAY pantoprazole 40 mg tablet,delayed release (DR/EC) 40 mg PO DAILY Patient Comments: TAKE 1 TABLET BY MOUTH ONCE DAILY aspirin 81 mg Tablet 81 mg PO DAILY metoprolol succinate 25 mg tablet extended release 24 hr 25 mg PO HS Patient Comments: TAKE 1 TABLET BY MOUTH NIGHTLY AT BEDTIME FOR BLOOD PRESSURE. escitalopram oxalate 20 mg tablet 20 mg PO HS Patient Comments: TAKE 1 TABLET BY MOUTH DAILY. Trelegy Ellipta 100-62.5-25 mcg blister with device 1 inh INHALATION DAILY Patient Comments: INHALE 1 PUFF INTO THE LUNGS DAILY AT 0900. Discontinued losartan 50 mg tablet 50 mg PO DAILY Patient Comments: TAKE 1 TABLET BY MOUTH DAILY. Problem Reconciliation Problems Reviewed?: Yes Patient Discharge Instructions ACTIVITY: Continue current activity DIET: continue same diet Patient Instructions: DI for Cardiac Catheterization, DI for Surgical Site Infection Providers Primary Care Provider: Provider,Referral Admit Provider: Cr Shaw Attending Provider: Cr Shaw
[2024-01-07 07:59] LABS: Chol/HDL Ratio 1.5 (1-3.5); Cholesterol 84 mg/dl (140-200); HDL Cholesterol 57 mg/dl (40-60); Triglycerides 28 mg/dl (30-150); VLDL Cholesterol 6 mg/dL (0-40)
[2024-01-07 08:10] LABS: Direct LDL Cholesterol 35.65 mg/dL (100-129)
[2024-01-07] MEDS: ASPIRIN EC 81MG TABLET 81 MG PO (08:33)
[2024-01-07] MEDS: OXYCODONE 5MG IMMEDIATE RELEASE TABLET 15 MG PO ×2 (08:33→12:14)
[2024-01-07] MEDS: IRBESARTAN 75MG TABLET 75 MG PO (08:33)
[2024-01-07] MEDS: CLOPIDOGREL 75MG TAB 75 MG PO (08:34)
[2024-01-07] MEDS: FUROSEMIDE 40MG/4ML VIAL 40 MG IV (08:34)
[2024-01-07] MEDS: SODIUM CHLORIDE 3% 15ML NEB 3 ML IH (10:27)
--- NOTE | 2024-01-07 10:57 | EXP.CARD.PN ---
Subjective Subjective Date: 01/07/24 Time: 08:00 Interval history: Patient doing well this morning. Denies chest pain or shortness of breath. Patient is status post left heart catheterization yesterday see report below. 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 Dual antiplatelet therapy 2. Recommend echocardiogram 3. Patient does have apical ballooning with mid anterior apical hypokinesis suggestive of a possible previous anterior apical myocardial infarction and or possible Takotsubo cardiomyopathy. Clinical correlation is advised with correlation with echocardiogram 4. Treatment of elevated LVEDP 5. Supportive care 6. Possible LifeVest if echocardiogram demonstrates an ejection fraction 35% or less 7. LDL less than 55 to proceed with high intensity statin 8. Standard therapy for LV dysfunction Exam Data for Last 24 hours Vital signs and Labs for Last 24 Hours: Temp Pulse Resp BP Pulse Ox O2 Del Method O2 Flow Rate 97.8 F 77 18 132/54 L 96 Room Air 4 01/07/24 07:28 01/07/24 10:38 01/07/24 10:38 01/07/24 07:28 01/07/24 07:28 01/07/24 10:50 01/06/24 06:15 Laboratory Results - last 24 hr 01/06/24 12:45: Lactate 4.8 H 01/06/24 15:08: Activated Clotting Time > 400 H* 01/07/24 06:05: WBC 6.3, RBC 3.56 L, Hgb 11.7 L, Hct 35.9 L, MCV 100.9 H, MCH 32.9 H, MCHC 32.7, RDW 15.6, Plt Count 88 L, MPV 9.1, Neut % (Auto) 65.1, Lymph % (Auto) 27.6, [place] % (Auto) 7.0, Eos % (Auto) 0.2, Baso % (Auto) 0.2, Neut # (Auto) 4.1, Lymph # (Auto) 1.7, [place] # (Auto) 0.4, Eos # (Auto) 0.0, Baso # (Auto) 0.0, Sodium 139, Potassium 4.6 D, Chloride 104, Carbon Dioxide 30, Anion Gap 9.6, BUN 14 D, Creatinine 0.70, Estimated Creat Clear 67, Estimated GFR 113, Est GFR ( Amer) 137, Glucose 98, Calcium 9.2, Magnesium 1.9, Total Bilirubin 1.2, AST 29, ALT 14 D, Alkaline Phosphatase 67, Total Protein 6.2 L, Albumin 3.4 L, Globulin 2.8, Albumin/Globulin Ratio 1.2, Triglycerides 28 L, Cholesterol 84 L, LDL Cholesterol Direct 35.65 L, VLDL Cholesterol 6, HDL Cholesterol 57, Cholesterol/HDL Ratio 1.5 I & O for Last 24 hours: Intake & Output 01/04/24 01/05/24 01/06/24 01/07/24 23:59 23:59 23:59 23:59 Intake Total 300 / 300 Output Total 450 / 450 1600 / 1600 Balance -450 / -150 -1300 / -1300 Weight 141 lb 5 oz 142 lb 3.2 oz Constitutional Constitutional: no acute distress *Routine Respiratory Exam Respiratory: Present CTA bilaterally and symmetric chest movement *Routine Cardiovascular Exam Cardiovascular: Present RRR, Normal S1 and Normal S2 *Routine Abdominal Exam Abdominal: Present soft and normoactive bowel sounds; Absent tenderness *Routine Extremities Exam Extremities: Present full ROM and normal capillary refill; Absent edema *Routine Skin Exam Skin: Present intact, dry and warm Detailed Neck Exam: Thyroids Thyroid: Absent bruit Progress Note: A&P Assessment and plan (1) Unstable angina: Status: Acute (2) NSTEMI (non-ST elevated myocardial infarction): Status: Acute (3) Respiratory failure with hypoxia and hypercapnia: Status: Acute (4) COPD exacerbation: Status: Acute (5) CKD (chronic kidney disease): Status: Acute (6) NYHA class 2 acute on chronic systolic heart failure: Status: Chronic (7) Ischemic cardiomyopathy with implantable cardioverter-defibrillator (ICD): Status: Acute (8) PAD (peripheral artery disease): Status: Chronic (9) HHD (hypertensive heart disease): Status: Chronic (10) HLD (hyperlipidemia): Status: Chronic (11) CAD (coronary artery disease): Status: Chronic (12) HTN (hypertension): Status: Acute Assessment and Plan Assessment and Plan for All Diagnoses:: History of coronary artery disease Status post CABG NSTEMI Troponin elevated from 0.02-0.55 EKG is negative for STEMI Patient does endorse chest pressure and dyspnea, reports symptoms were severe this morning associated with diaphoresis Given patient's cardiac history and symptoms with a slightly elevated troponin we will proceed with left heart catheterization to further evaluate for ischemic disease. Given risk versus benefits with patient he is agreeable to proceed 01/07/2024 update: PEPE placed to saphenous vein graft. Continue aspirin 81 mg p.o. daily, Plavix 75 mg p.o. daily, metoprolol succinate ER 25 mg p.o. daily and atorvastatin 20 mg p.o. daily (patient reports leg cramps with 20mg dose, doesn't think can tolerate a higher dose) Acute HFrEF Status post AICD Echo 12/2022: EF 40 to 45%, severe hypokinesis of the inferior septal LV wall there is akinesis of the LV apex. Moderate AR, moderate MR, moderate TR. RVSP 50-50 Recommend switching losartan to Entresto 24/26 mg p.o. twice daily. Continue metoprolol succinate ER 25 mg daily. Add Jardiance 10 mg daily, Aldactone 12.5mg daily and Lasix 20mg po daily. Acute COPD exacerbation Patient does endorse worsening shortness of breath and cough Shortness of breath did improve with Solu-Medrol and neb treatments VBG reviewed Respiratory acidosis present CV summary 01/07/2024: Patient is CV stable for discharge. Please have patient follow-up with cardiology clinic in 1 week for reevaluation and continue below listed medications. CV meds for discharge Aspirin 81 mg daily Plavix 75 mg daily Atorvastatin 20 mg daily Metoprolol succinate ER 25 mg daily Entresto 24/26 mg p.o. twice daily Jardiance 10 mg daily Aldactone 12.5 mg daily Lasix 20mg daily
[2024-01-07] MEDS: FLUTICASONE/UMECLIDIN/VILANTER 100/62.5/25MCG INHALER 1 PUFF IH (11:03)
[2024-01-07] MEDS: EMPAGLIFLOZIN 10MG TABLET 10 MG PO (12:14)
[2024-01-07] MEDS: FUROSEMIDE 20MG TABLET 20 MG PO (12:14)
--- NOTE | 2024-01-07 12:32 | HMH.PHAINT1 ---
Pharmacy Intervention Comments: DISCHARGE MEDICATION COUNSELING PROVIDED. DISCUSSED THE FOLLOWING NEW MEDICATIONS/CHANGES: -STOP LOSARTAN -PLAVIX (DAILY, BLEED/BRUISE RISK/LOCATION/APPEARANCE, BUMP HEAD = GO TO ER TO RULE OUT BLEED). -ENTRESTO (TWICE DAILY, FOR BP, DIZZINESS, LIGHTHEADEDNESS, COUGH, LOW BP POSSIBLE) -FUROSEMIDE (DAILY, FOR FLUID/BP, TAKE IN THE MORNING, INCREASED URINATION POSSIBLE, DIZZINESS, LIGHTHEADEDNESS, LOWERED POTASSIUM - WATCH FOR FLUTTERING IN CHEST/MUSCLE PAIN/WEAKNESS) -JARDIANCE (DAILY, FOR HEART DISEASE, TAKE WITH FOOD, NAUSEA, LOWERED BLOOD SUGAR POSSIBLE) -SPIRONOLACTONE (DAILY, FOR FLUID/BP, TAKE ONE-HALF TABLET, DIZZINESS, LIGHTHEADEDNESS, LOW BP, BREAST PAIN, ELEVATED POTASSIUM POSSIBLE) PATIENT VERBALIZED NO QUESTIONS AT THIS TIME.
--- NOTE | 2024-01-10 13:54 | CARE MANAGER ---
Spoke with patient and related to hospital discharge. They state he is tired and weak, but otherwise ok. He is taking his new medications and is aware of which was stopped. They are aware of follow up appointments and deny questions or concerns. NIURKA Shanks
== END 2024-01-07 13:09 | disposition home or self-care (01) | DRG 321 ==
LOC: ER 11:55 → 2ND 14:47
PROVIDERS: Internal Medicine; Admitting Provider Internal Medicine Adolescent Medicine; Emergency Provider Emergency Medicine; Visit Provider Internal Medicine Adolescent Medicine
PROC: 027034Z Dilation of Coronary Artery, One Artery with Drug-eluting Intraluminal Device, Percutaneous Approach (ICD-10-PCS; principal; 2024-01-06 12:05)
DX: I21.4 Non-ST elevation (NSTEMI) myocardial infarction (principal); I25.110 Atherosclerotic heart disease of native coronary artery with unstable angina pectoris; I50.23 Acute on chronic systolic (congestive) heart failure; J96.02 Acute respiratory failure with hypercapnia; J96.01 Acute respiratory failure with hypoxia; J44.1 Chronic obstructive pulmonary disease with (acute) exacerbation; I13.0 Hypertensive heart and chronic kidney disease with heart failure and stage 1 through stage 4 chronic kidney disease, or unspecified chronic kidney disease; N18.9 Chronic kidney disease, unspecified; I25.5 Ischemic cardiomyopathy; Z95.810 Presence of automatic (implantable) cardiac defibrillator; I73.9 Peripheral vascular disease, unspecified; E78.2 Mixed hyperlipidemia; F17.210 Nicotine dependence, cigarettes, uncomplicated; F39 Unspecified mood [affective] disorder; G89.29 Other chronic pain; K21.9 Gastro-esophageal reflux disease without esophagitis; Z95.1 Presence of aortocoronary bypass graft; I34.0 Nonrheumatic mitral (valve) insufficiency; Z95.5 Presence of coronary angioplasty implant and graft
CPT/HCPCS: 36415; 71045; 80053; 80061; 82803; 83605; 83735; 84484; 85025; 85347; 92928; 93005; 93306; 93458; 94640; 99152; 99153; 99291; C1725; C1769; C1876; C9600; J1644; J1956; J3475

== ENCOUNTER 2024-01-11 09:20 | Outpatient (CLI) | payer MEDICARE, MEDICAID, SELFPAY ==
[2024-01-11 09:53] LABS: Basophils # 0.1 K/mm3 (0-0.2); Eosinophils # 0.2 K/mm3 (0.0-0.4); Eosinophils % 2.4 % (0.1-12.0); Hematocrit 48.3 % (42.0-52.0); Hemoglobin 15.5 g/dL (14.1-18.0); Lymphocytes # 2.6 K/mm3 (0.7-4.5); Lymphocytes % 35.4 % (10-50); Mean Corpuscular HGB Conc 32.1 g/dL (31.8-35.4); Mean Corpuscular Hemoglobin 32.5 pg (27.0-31.2); Mean Corpuscular Volume 101.3 fl (80-94); Monocytes # 0.6 K/mm3 (0.1-1.0); Monocytes % 7.6 % (1.7-9.3); Neutrophils % 53.6 % (37.0-80.0); Platelet Count 131 K/mm3 (142-424); Red Blood Count 4.77 M/mm3 (4.60-6.20); Red Cell Distribution Width 15.1 % (11.5-17.5); White Blood Count 7.5 K/mm3 (4.8-10.8)
[2024-01-11 11:01] LABS: Chloride 99 mmol/L (98-107); Potassium 3.2 mmoL/L (3.5-5.1); Sodium 138 mmol/L (136-145)
[2024-01-11 11:04] LABS: Anion Gap 10.2 mEq/L (5-15); Blood Urea Nitrogen 15 mg/dl (9-20); Carbon Dioxide 32 mmol/L (22.0-30.0); Estimated Glomerular Filt Rate 75 ml/min (>60); GFR (African American) 91 ML/MIN (>60)
[2024-01-11 11:05] LABS: Calcium 9.3 mg/dl (8.4-10.2); Glucose 111 mg/dl (74-100)
[2024-01-11 14:39] LABS: Creatine Kinase 35 U/L (55-170)
== END 2024-01-11 23:59 | disposition home or self-care (01) ==
PROVIDERS: Internal Medicine; Physician Assistant; PCP Family Medicine; Visit Provider Nurse Practitioner
DX: M79.604 Pain in right leg; M79.605 Pain in left leg; D69.6 Thrombocytopenia, unspecified; I50.23 Acute on chronic systolic (congestive) heart failure; I25.5 Ischemic cardiomyopathy; Z95.810 Presence of automatic (implantable) cardiac defibrillator; R06.02 Shortness of breath; R53.83 Other fatigue; I34.0 Nonrheumatic mitral (valve) insufficiency; I10 Essential (primary) hypertension; E55.9 Vitamin D deficiency, unspecified; E87.6 Hypokalemia
CPT/HCPCS: 36415; 80048; 82550; 83735; 85025

== ENCOUNTER 2024-01-14 14:51 | Outpatient (CLI) | payer MEDICARE, MEDICAID, SELFPAY ==
--- NOTE | 2024-01-14 14:51 | US_ITS ---
FINAL REPORT CLINICAL HISTORY: LEG PAIN,CLAUIDCATION,SMOKER,HTN,HLD,CAD FINDINGS: ANKLE-BRACHIAL PRESSURE INDICES Pressure indices are as follows: RIGHT LOWER EXTREMITY: Ankle-brachial pressure index: 1.18 Comments: Normal LEFT LOWER EXTREMITY: Ankle-brachial pressure index: 1.08 Comments: Normal CONCLUSION: No evidence of significant obstructive peripheral vascular disease of the lower extremities Reviewed, Interpreted and Dictated by Eusebio Núñez III, MD Transcribed by Nano Pereira Authenticated and [facility]
== END 2024-01-14 23:59 | disposition home or self-care (01) ==
LOC: RT 14:51
PROVIDERS: PCP Family Medicine; Visit Provider Physician Assistant
DX: I73.9 Peripheral vascular disease, unspecified (principal); M79.604 Pain in right leg; M79.605 Pain in left leg
CPT/HCPCS: 93923

== ENCOUNTER 2024-07-12 11:22 | Outpatient (CLI) | payer MEDICARE, MEDICAID, SELFPAY ==
[2024-07-12 11:59] LABS: Alanine Aminotransferase 21 U/L (12-78); Albumin Level 4.2 g/dl (3.5-5.0); Alkaline Phosphatase 66 U/L (38-126); Anion Gap 10.2 mEq/L (5-15); Aspartate Amino Transferase 36 U/L (17-59); Bilirubin,Direct 0.2 mg/dl (0.0-0.4); Bilirubin,Indirect 0.8 mg/dL (0.0-0.9); Bilirubin,Unconjugated 0.9 mg/dL (0.0-1.1); Blood Urea Nitrogen 13 mg/dl (9-20); Calcium 9.1 mg/dl (8.4-10.2); Carbon Dioxide 31 mmol/L (22.0-30.0); Chloride 104 mmol/L (98-107); Chol/HDL Ratio 1.5 (1-3.5); Cholesterol 86 mg/dl (140-200); Estimated Glomerular Filt Rate 84 ml/min (>60); GFR (African American) 102 ML/MIN (>60); Glucose 83 mg/dl (74-100); HDL Cholesterol 57 mg/dl (40-60); Magnesium 1.9 mg/dl (1.6-2.3); Potassium 4.2 mmoL/L (3.5-5.1); Sodium 141 mmol/L (136-145); Total Protein,Serum 7.1 g/dl (6.3-8.2); Triglycerides 44 mg/dl (30-150); VLDL Cholesterol 9 mg/dL (0-40)
[2024-07-12 12:11] LABS: Basophils # 0.1 K/mm3 (0-0.2); Direct LDL Cholesterol < 30.00 mg/dL (100-129); Eosinophils # 0.1 K/mm3 (0.0-0.4); Eosinophils % 1.9 % (0.1-12.0); Hematocrit 48.1 % (42.0-52.0); Hemoglobin 15.9 g/dL (14.1-18.0); Lymphocytes # 1.7 K/mm3 (0.7-4.5); Lymphocytes % 31.3 % (10-50); Mean Corpuscular Hemoglobin 33.1 pg (27.0-31.2); Mean Corpuscular Volume 100.3 fl (80-94); Mean Platelet Volume 8.3 fl (7.4-10.4); Monocytes # 0.4 K/mm3 (0.1-1.0); Monocytes % 8.1 % (1.7-9.3); Neutrophils # 3.1 K/mm3 (1.8-7.8); Neutrophils % 57.7 % (37.0-80.0); Platelet Count 96 K/mm3 (142-424); Red Cell Distribution Width 15.4 % (11.5-17.5); White Blood Count 5.4 K/mm3 (4.8-10.8)
[2024-07-12 12:28] LABS: Thyroid Stimulating Hormone 0.52 uIU/mL (0.465-4.68)
[2024-07-12 12:37] LABS: Free T4 (Free Thyroxine) 0.65 ng/dl (0.78-2.19)
== END 2024-07-12 23:59 | disposition home or self-care (01) ==
LOC: LAB 11:23
PROVIDERS: PCP Family Medicine; Visit Provider Internal Medicine
DX: D69.6 Thrombocytopenia, unspecified (principal); I50.23 Acute on chronic systolic (congestive) heart failure; I25.5 Ischemic cardiomyopathy; Z95.810 Presence of automatic (implantable) cardiac defibrillator; I35.1 Nonrheumatic aortic (valve) insufficiency; I73.9 Peripheral vascular disease, unspecified; I11.9 Hypertensive heart disease without heart failure; E78.2 Mixed hyperlipidemia; Z95.1 Presence of aortocoronary bypass graft; R94.31 Abnormal electrocardiogram [ECG] [EKG]; I25.10 Atherosclerotic heart disease of native coronary artery without angina pectoris; E55.9 Vitamin D deficiency, unspecified; I34.0 Nonrheumatic mitral (valve) insufficiency; R53.83 Other fatigue; R06.02 Shortness of breath; I10 Essential (primary) hypertension
CPT/HCPCS: 36415; 80048; 80061; 80076; 83735; 84439; 84443; 85025

== ENCOUNTER 2024-07-26 10:16 | Outpatient (CLI) | payer MEDICARE, MEDICAID, SELFPAY ==
[2024-07-26 11:04] LABS: Basophils # 0.1 K/mm3 (0-0.2); Basophils % 0.9 % (0.1-2.0); Eosinophils # 0.1 K/mm3 (0.0-0.4); Eosinophils % 1.8 % (0.1-12.0); Hematocrit 49.4 % (42.0-52.0); Hemoglobin 15.8 g/dL (14.1-18.0); Lymphocytes # 1.7 K/mm3 (0.7-4.5); Lymphocytes % 28.9 % (10-50); Mean Corpuscular HGB Conc 32.1 g/dL (31.8-35.4); Mean Corpuscular Hemoglobin 32.4 pg (27.0-31.2); Mean Corpuscular Volume 101.2 fl (80-94); Mean Platelet Volume 8.7 fl (7.4-10.4); Monocytes # 0.6 K/mm3 (0.1-1.0); Monocytes % 10.1 % (1.7-9.3); Neutrophils # 3.4 K/mm3 (1.8-7.8); Neutrophils % 58.3 % (37.0-80.0); Platelet Count 91 K/mm3 (142-424); Red Blood Count 4.89 M/mm3 (4.60-6.20); Red Cell Distribution Width 15.6 % (11.5-17.5); White Blood Count 5.8 K/mm3 (4.8-10.8)
[2024-07-26 11:38] LABS: Chloride 104 mmol/L (98-107)
[2024-07-26 11:39] LABS: Albumin Level 3.9 g/dl (3.5-5.0); Potassium 4.4 mmoL/L (3.5-5.1); Sodium 142 mmol/L (136-145)
[2024-07-26 11:41] LABS: Alanine Aminotransferase 19 U/L (12-78); Anion Gap 13.4 mEq/L (5-15); Aspartate Amino Transferase 30 U/L (17-59); Blood Urea Nitrogen 9 mg/dl (9-20); Carbon Dioxide 29 mmol/L (22.0-30.0); Estimated Glomerular Filt Rate 84 ml/min (>60); GFR (African American) 102 ML/MIN (>60)
[2024-07-26 11:42] LABS: Albumin/Globulin Ratio 1.3 (1.1-1.8); Alkaline Phosphatase 86 U/L (38-126); Bilirubin,Total 1.2 mg/dl (0.2-1.3); Calcium 9.3 mg/dl (8.4-10.2); Globulin 3.1 g/dL (1.3-3.2); Glucose 93 mg/dl (74-100)
== END 2024-07-26 23:59 | disposition home or self-care (01) ==
LOC: LAB 10:19
PROVIDERS: Visit Provider Internal Medicine Medical Oncology
DX: D64.9 Anemia, unspecified (principal)
CPT/HCPCS: 36415; 80053; 85025

== ENCOUNTER 2024-08-21 12:43 | Outpatient (CLI) | payer MEDICARE, MEDICAID, SELFPAY ==
--- NOTE | 2024-08-21 12:46 | CA_ITS ---
APPROVED REPORT EXAM: Comprehensive 2D, Doppler, and color-flow Echocardiogram Marine Service Manager: Cassandra Brown CRT Ht: 5 ft 8 in Wt: 142lbs BSA: 1.77 BP: 121/43 mmHg Indications: AICD, CABG, CM, CAD, ABN EKG, SOB EF 40-45% ECHO 24 2D Dimensions Left Atrium 3.16 cm LVEF (Mendoza's) 56.00 % LVOT 1.94 cm (M/F) 1.5-2.5 LV Volume 122.60 mL LA Volume 48.70 mL LA Volume Index 27.50 mL/m2 (M/F) 16-34 EF AP4 55.20 % EF AP2 58.1 % EF BP 56.0 % GL Strain -16.5 % M-Mode Dimensions RVDd 2.04 cm (0.9-2.6) LVDd 5.37 cm (3.5-5.7) Ao Diam 4.35 cm (2.0-3.7) LVDs 3.70 cm (3.5-5.7) IVSd 1.02 cm (0.6-1.1) PWd 1.02 cm (0.6-1.1) EF (Teich) 58.40% FS 31.10% EDV (Teich) 139.50 mL TAPSE 0.72 (<1.7) ESV (Teich) 58.10 mL LV Diastology E Decel Time 367 (160-240 msec) E/A Ratio 0.85 MED E' 7.3 (>= 7 cm/sec) MED A' 10.80 cm/s E'/MED E' Ratio 12.00 (<= 14) LAT E' 8.5 (>= 10 cm/sec) LAT A' 6.80 cm/s E/LAT E' Ratio 10.31 (<= 14) Aortic Valve AoV Peak Marlon. 148.0 (50-130 cm/s) AI PHT 389.00 ms AO Peak GR. 8.80 mmHg Mitral Valve MV E Max Marlon. 88.0 (40-130 cm/s) MV A Velocity 104.0 (40-130 cm/s) E/A Ratio 0.85 MV Decel. Time 367 (160-240 ms) Tricuspid Valve TR P. Velocity 173.00 cm/s RAP Estimate 10.00 mmHg RVSP 22.00 mmHg Left Ventricle The left ventricle is normal size. Left ventricular systolic function is mildly decreased. There is increased LV wall thickness. Grade 1 diastolic dysfunction. There is mild global hypokinesis present. There is severe hypokinesis of the distal LV corea, as well as akinesis of the LV apical wall. LVEF is 40-45%. Right Ventricle The right ventricle is normal size. The right ventricular systolic function is normal. There is a device lead in the right ventricle. Atria Left atrium is mildly dilated. The right atrium size is mildly dilated. There is no Doppler evidence of interatrial shunt. Aortic Valve The aortic valve is mildly thickened. There is no aortic valvular stenosis. Moderate aortic regurgitation. Mitral Valve The mitral valve leaflets are mildly thickened. Mild mitral regurgitation. No evidence of mitral valve stenosis. Tricuspid Valve Tricuspid valve is grossly normal in structure and function. Trace tricuspid regurgitation. There is insufficient TR jet to estimate RVSP. Pulmonic Valve The pulmonary valve is normal in structure. Trace pulmonic regurgitation. Great Vessels The aortic root is normal in size. IVC is normal in size and collapses >50% with inspiration. Pericardium There is no pericardial effusion. Other Information Study Quality: Fair Conclusion Mildly reduced LV systolic function (LVEF 40-45%). Severe hypokinesis of the distal LV corea, as well as akinesis of the LV apical wall. Biatrial dilation. Moderate AI. Mild MR. Compared to prior study from 01/06/2024, the LV systolic function and wall motion abnormalities are unchanged. Future TTE's are recommended with administration of ultrasound enhancing agent to rule out thrombus in the setting of presence of LV apical akinesis. Electronically signed by : Rylie Bates MD 09/04/2024 18:53:24
== END 2024-08-21 23:59 | disposition home or self-care (01) ==
LOC: RT 12:44
PROVIDERS: PCP Family Medicine; Visit Provider Internal Medicine
DX: I34.0 Nonrheumatic mitral (valve) insufficiency (principal); I35.1 Nonrheumatic aortic (valve) insufficiency; I50.23 Acute on chronic systolic (congestive) heart failure; I25.5 Ischemic cardiomyopathy; Z95.810 Presence of automatic (implantable) cardiac defibrillator; Z95.1 Presence of aortocoronary bypass graft; R06.02 Shortness of breath
CPT/HCPCS: 93306

== ENCOUNTER 2024-11-15 12:40 | Emergency (ER) | payer MEDICARE, MEDICAID, SELFPAY ==
[2024-11-15] VITALS (9 sets, daily range): BP systolic 122–163; BP diastolic 52–117; PULSE 64–79; RESP 15–22; TEMP 36.6–36.7; O2SAT 92–97; BMI 21.2
--- NOTE | 2024-11-15 12:46 | ECG_ITS ---
APPROVED REPORT Exam: Resting ECG HR:71 bpm ECG Measurements Heart Rate 71 AXES MO 147 P 74 QRSd 109 QRS -29 QT 388 T 94 QTc 411 Conclusion SINUS RHYTHM WITH OCCASIONAL VENTRICULAR PREMATURE COMPLEXES ANTERIOR MYOCARDIAL INFARCTION , PROBABLY RECENT [40+ ms Q WAVE AND/OR ST/T ABNORMALITY IN V3/V4] ACUTE [facility] UNCONFIRMED REPORT Normal sinus rhythm with PVC. No ST elevation or depression. Electronically signed by : TEE LOONEY, 11/15/2024 16:30:57
[2024-11-15 12:51] LABS: Coronavirus 19, PCR Not Detected (NotDetected); Influenza B, PCR Not Detected (NotDetected)
--- NOTE | 2024-11-15 12:53 | ED_ITS ---
Discharge Plan Disposition Patient Disposition: Home, Self-Care Condition: Good Prescriptions Prescriptions: New oseltamivir [Tamiflu] 75 mg capsule 75 mg PO BID 5 Days Qty: 10 0RF doxycycline hyclate 100 mg capsule 100 mg PO BID 10 Days Qty: 20 0RF prednisone 50 mg tablet 50 mg PO DAILY 5 Days Qty: 5 0RF No Action oxycodone 10 mg tablet 10 mg PO QID Patient Comments: TAKE 1 TABLET BY ORAL ROUTE 4 TIMES A DAY FOR 29 DAYS M54.17 nitroglycerin 0.4 mg tablet, sublingual 0.4 mg sublingual Q5M PRN (Reason: chest pain) Qty: 14 0RF Rx Instructions: do not exceed 3 doses per episode coQ10 (ubiquinol) [Qunol Jeffrey CoQ10] 100 mg capsule 100 mg PO BID Qty: 60 6RF bisoprolol fumarate 5 mg tablet 5 mg PO DAILY Qty: 30 2RF atorvastatin 20 mg tablet 20 mg PO HS Patient Comments: TAKE 1 TABLET BY MOUTH NIGHTLY. pantoprazole 40 mg tablet,delayed release (DR/EC) 40 mg PO DAILY Patient Comments: TAKE 1 TABLET BY MOUTH ONCE DAILY aspirin 81 mg Tablet 81 mg PO DAILY escitalopram oxalate 20 mg tablet 20 mg PO HS Patient Comments: TAKE 1 TABLET BY MOUTH DAILY. Trelegy Ellipta 100-62.5-25 mcg blister with device 1 inh INHALATION DAILY Patient Comments: INHALE 1 PUFF INTO THE LUNGS DAILY AT 0900. clopidogrel 75 mg Tablet 75 mg PO DAILY 30 Days Qty: 30 0RF Jardiance 10 mg Tablet 10 mg PO DAILY 30 Days Qty: 30 0RF Entresto 24-26 mg Tablet 1 tab PO BID 30 Days Qty: 60 0RF Referrals Follow up/Referrals: Cr Resendez MD [Primary Care Provider] - See instructions Activity Restrictions/Add. Instructions Additional Instructions/Restrictions: Dr. Tan wants to see you in the office next week. Please call to make your appointment in the morning. I have sent in Tamiflu steroids and doxycycline to cover for atypical infection. If you have continued new or worsening signs or symptoms follow-up with your PCP sooner or return to the ER as needed. Clinical Impressions Clinical Impression: Influenza A, COPD with acute exacerbation, Elevated troponin I level Instructions Patient Instructions: DI for Chronic Obstructive Pulmonary Disease, DI for Influenza -- Adult Print Language Print Language: Citizen Of [place] Discharge ED Provider: Manoj Luna General Adult HPI <GENESIS Fernandes - Last Filed: 11/15/24 16:28> General Chief complaint: Shortness of Breath/Dyspnea Stated complaint: SOA, pain in knees, cough Time Seen by Provider: 11/15/24 12:53 Mode of Arrival: Ambulatory Source of Information: Patient and Spouse Description of Symptoms (Recalled from ER Triage Doc. by RN): Pt presents with c/o shortness of breath for the last couple of days. Pt states he has progressively felt more short of breath, more so with lying down. Pt states he has a hx of multiple MT's. Pt was exposed to the flu. History of Present Illness HPI narrative: Patient presents for evaluation of dyspnea. Patient reports that he has had shortness of breath especially with exertion over the last 2 days. Patient does have a cardiovascular history and has had 2 coronary artery bypass graft surgeries with a total of 5 vessels and previous PCI with stent placement Dr. Tan. Patient denies fever chills hemoptysis hematochezia melena hematemesis hematuria nausea vomiting or diarrhea. Patient reports no chest pain. He does have COPD and is a smoker but is not on chronic oxygen nor does he have a home nebulizer machine. Patient has felt so short of breath he has been using his rescue inhaler with minimal relief. Patient primarily states that he is here because this is how it felt when I had my heart attack . Related Data Home Medications ?Medication ?Instructions ?Recorded ?Confirmed aspirin 81 mg tablet 81 mg PO DAILY 01/06/24 08/14/24 atorvastatin 20 mg tablet 20 mg PO HS 01/06/24 08/14/24 escitalopram oxalate 20 mg tablet 20 mg PO HS 01/06/24 08/14/24 fluticasone fur. 100 mcg-umeclid 1 inh inhalation DAILY 01/06/24 08/14/24 62.5 mcg-vilant 25 mcg inhalat.powder (Trelegy Ellipta) pantoprazole 40 mg tablet,delayed 40 mg PO DAILY 01/06/24 08/14/24 release oxycodone 10 mg tablet 10 mg PO QID 04/12/24 08/14/24 Previous Rx's ?Medication ?Instructions ?Recorded clopidogrel 75 mg tablet 75 mg PO DAILY 30 days #30 tabs 01/07/24 empagliflozin 10 mg tablet 10 mg PO DAILY 30 days #30 tabs 01/07/24 (Jardiance) sacubitril 24 mg-valsartan 26 mg 1 tab PO BID 30 days #60 tabs 01/07/24 tablet (Entresto) nitroglycerin 0.4 mg sublingual 0.4 mg sublingual Q5M PRN chest 01/10/24 tablet pain #14 tabs coQ10 (ubiquinol) 100 mg capsule 100 mg PO BID #60 caps 01/11/24 (Qunol Jeffrey CoQ10) bisoprolol fumarate 5 mg tablet 5 mg PO DAILY #30 tabs 09/25/24 doxycycline hyclate 100 mg capsule 100 mg PO BID 10 days #20 caps 11/15/24 oseltamivir 75 mg capsule (Tamiflu) 75 mg PO BID 5 days #10 caps 11/15/24 prednisone 50 mg tablet 50 mg PO DAILY 5 days #5 tabs 11/15/24 Allergies Allergy/AdvReac Type Severity Reaction Status Date / Time adhesive tape (ADHESIVE TAPE) Allergy Intermediate I-RASH Verified 08/14/24 10:20 duloxetine (From CYMBALTA) AdvReac Unknown Verified 08/14/24 10:20 PFS <GENESIS Fernandes - Last Filed: 11/15/24 16:28> [facility] Disclaimer: The information contained in this section may have been updated after the patient was seen, as this information can be updated by other users. Medical History Mood disorder COPD (chronic obstructive pulmonary disease) Vitamin D deficiency, unspecified Abnormal ultrasound of both kidneys HTN (hypertension) Moderate mitral valve regurgitation Fatigue SOB (shortness of breath) Surgical History Hx of CABG AICD (automatic cardioverter/defibrillator) present Family History Other No significant family history Social History Smoking Status: Never smoker alcohol intake: never substance use type: denies use current occupational status: disabled Travel in the last 8 weeks: None household members: spouse housing: house caffeine: Yes Have you lived/traveled outside [place] in past 30 days?: No Contact w/someone who lives/traveled outside US past 30 days?: No Exposure to someone with infectious disease in past 14 days?: Yes Do you have a fever (greater than 100.4 F or 38 C)?: No Have you tested positive for COVID-19: No Exposed to someone with COVID-19 in past 14 days?: No Do you have a sore throat?: No Do you have a cough?: Yes Do you have any weakness?: No Do you have any diarrhea?: No Are you experiencing any unusual bleeding?: No Do you have any muscle aches/pain?: No Do you have any abdominal pain?: No Are you experiencing loss of taste or smell?: No Other Medical History Have you received the Flu Vaccine for this season: No Have you received the Pneumonia Vaccine: No <GENESIS Fernandes - Last Filed: 11/15/24 16:28> ROS Obtained: Yes Systems reviewed as appropriate & no additional complaints except as documented Physical Exam <GENESIS Fernandes - Last Filed: 11/15/24 16:28> General General appearance: alert and in no apparent distress Respiratory Respiratory exam: Present normal lung sounds bilaterally Cardiovascular Cardiovascular exam: Present regular rate Neurological Exam Neurological exam: Present alert and oriented X3 Medical Decision Making <GENESIS Fernandes - Last Filed: 11/15/24 16:28> Medical Records Medical records reviewed: Yes I reviewed the patient's medical records. Screening: Per USPSTF and CDC recommendations, given the prevalence of disease in our region, it is our hospital?s policy to screen for HIV and viral Hepatitis for all patients aged 18 and over and those with ongoing risk factors. Tony Inquiry Pt receiving controlled substance: No Vital Signs: 11/15/24 12:43 11/15/24 13:01 11/15/24 13:30 Temperature 98.1 F Temperature Source Oral Pulse Rate 67 64 Pulse Rate [Right] 67 Respiratory Rate 18 18 21 Blood Pressure 162/71 H 163/117 H Blood Pressure [Right Arm] 142/76 H Blood Pressure Mean [Right Arm] 98 Blood Pressure Source Blood Pressure Source [Right Arm] Automatic Cuff Blood Pressure Position Blood Pressure Position [Right Arm] Sitting 02 Sat by Pulse Oximetry 97 95 97 Oxygen Delivery Method Room Air Room Air 11/15/24 14:10 11/15/24 14:30 11/15/24 15:00 Temperature Temperature Source Pulse Rate 79 67 66 Pulse Rate [Right] Respiratory Rate 22 20 20 Blood Pressure 158/71 H 147/60 H 137/52 L Blood Pressure [Right Arm] Blood Pressure Mean [Right Arm] Blood Pressure Source Blood Pressure Source [Right Arm] Blood Pressure Position Blood Pressure Position [Right Arm] 02 Sat by Pulse Oximetry 95 96 96 Oxygen Delivery Method Room Air Room Air Room Air 11/15/24 15:30 11/15/24 16:00 11/15/24 16:31 Temperature 97.8 F Temperature Source Oral Pulse Rate 65 64 70 Pulse Rate [Right] Respiratory Rate 19 20 15 Blood Pressure 129/53 L 122/54 L 122/54 L Blood Pressure [Right Arm] Blood Pressure Mean [Right Arm] Blood Pressure Source Automatic Cuff Blood Pressure Source [Right Arm] Blood Pressure Position Supine Blood Pressure Position [Right Arm] 02 Sat by Pulse Oximetry 95 92 L Oxygen Delivery Method Room Air Room Air Lab Data Lab results reviewed: Yes I reviewed the patient's lab results. Lab Results 11/15/24 12:47: SARS-CoV-2 (PCR) Not detected, Influenza A Untype (PCR) Detected A, Influenza Type B (PCR) Not detected 11/15/24 13:10: WBC 4.4 L, RBC 4.82, Hgb 15.4, Hct 45.0, MCV 93.4, MCH 32.0 H, MCHC 34.2, RDW 14.9, Plt Count 69 L, MPV 11.5 H, Neut % (Auto) 60.8, Lymph % (Auto) 24.9, [place] % (Auto) 12.8 H, Eos % (Auto) 0.5, Baso % (Auto) 0.5, Neut # (Auto) 2.7, Lymph # (Auto) 1.1, [place] # (Auto) 0.6, Eos # (Auto) 0.0, Baso # (Auto) 0.0, PT 11.4, INR 1.04, D-Dimer 0.88 H, Sodium 135 L, Potassium 4.7, Chloride 102, Carbon Dioxide 25, Anion Gap 12.7, BUN 13, Creatinine 0.80, Estimated Creat Clear 65, Estimated GFR 97, Est GFR ( Amer) 117, Glucose 73 L, Calcium 9.3, Magnesium 1.6, Total Bilirubin 1.6 H, AST 81 H, ALT 35, Alkaline Phosphatase 71, Troponin I 0.04 H, NT-Pro-B Natriuret Pep 951 H, Total Protein 7.5, Albumin 4.4, Globulin 3.1, Albumin/Globulin Ratio 1.4, Procalcitonin 0.108 11/15/24 13:11: VBG pH 7.36, VBG pCO2 36.8, VBG pO2 53.9 H, VBG HCO3 20.2 L, VBG Total CO2 21.3 L, VBG O2 Saturation 89.6 H, VBG Base Excess -5.3 L, VBG Lactic Acid 2.8 H 11/15/24 13:45: HCV Ab GLENDA w/Rflx PCR Qn Negative, HIV Ag/Ab Combo Qual Negative 11/15/24 15:25: Troponin I 0.03 11/15/24 13:10 11/15/24 13:10 Orders (Tests/Meds): ED MEDICATIONS Discontinued Medications Generic Name Dose Route Start Last Admin Trade Name Freq PRN Reason Stop Dose Admin Albuterol/Ipratropium 3 ml 11/15/24 13:10 11/15/24 13:41 Ipratropium/Albuterol 3 Ml Neb IH 11/15/24 13:11 3 ml ONCE ONE Administration Dexamethasone Sodium Phosphate 10 mg 11/15/24 13:10 11/15/24 13:41 Dexamethasone 4mg/Ml 5ml Mdv IV 11/15/24 13:11 10 mg ONCE ONE Administration Oseltamivir Phosphate 75 mg 11/15/24 15:08 11/15/24 15:23 Oseltamivir 75mg Capsule PO 11/15/24 15:09 75 mg ONCE ONE Administration ORDERS Category Date Time Status Chest XR 2 view (NOT portable) [XR chest 2V] Stat Exams 11/15/24 13:10 Completed BNP [NT Pro Brain Natriuretic Pep.] Stat Lab 11/15/24 13:10 Completed CBC w/Auto Diff [Complete Blood Count Auto Diff] Stat Lab 11/15/24 13:10 Completed CMP [Comprehensive Metabolic Panel] Stat Lab 11/15/24 13:10 Completed D-Dimer Stat Lab 11/15/24 13:10 Completed HIV Combo Stat Lab 11/15/24 13:45 Completed Hepatitis C Ab Qual. W/ RFX Stat Lab 11/15/24 13:45 Completed INR [Prothrombin Time INR] Stat Lab 11/15/24 13:10 Completed Magnesium Stat Lab 11/15/24 13:10 Completed Procalcitonin Stat Lab 11/15/24 13:10 Completed Rapid PCR Covid and Flu A/B Stat Lab 11/15/24 12:47 Completed Trop I [Troponin I] Stat Lab 11/15/24 13:10 Completed Troponin I Q3H Lab 11/15/24 15:25 Completed VBG [Venous Blood Gas] Stat RT 11/15/24 13:11 Completed HEART Score History (anamnesis): Slightly suspicious ECG: Non-specific disturbance Age: >65 years Risk factors: Atherosclerosis history Troponin: 1-3x normal limit HEART Score: 6 Medical Decision Narrative: In summary patient is a 64-year-old male who presents to the emergency department for evaluation of dyspnea. Patient is hemodynamically stable upon arrival, afebrile. Physical exam is remarkable for clear breath sounds with no adventitious sounds or increased work of breathing, normal heart sounds a paced rhythm on the monitor at 67, no dependent edema noted, no abdominal tenderness rebound or guarding or rigidity.. Differential diagnosis includes upper or lower respiratory tract infection versus ACS versus CHF versus PE. Initial workup will be conducted with respiratory swabs plain film chest x-ray twelve-lead EKG hematologic labs. Initial interventions include DuoNeb and Decadron for now. Initial workup reviewed by me and his hematologic labs are significant for white count of 4.4 normal H&H no neutrophilic shift, D-dimer 0.88 and per years criteria PE is excluded, patient currently on aspirin and Plavix, VBG shows a pH of 7.36 pCO2 of 36.8 venous lactic acid 2.8, initial troponin 0.04-NT proBNP of 951 procalcitonin is 0.108 and his respiratory swabs are positive for influenza A. Upon repeat evaluation patient reported significant improvement in his dyspnea after initial intervention. Given this the patient was placed in observation status at 1400 hrs. Medical necessity for observational status is serial troponins given his significant cardiovascular history. The patient was provided serial reevaluations continuous cardiac monitoring and pulse oximetry while awaiting results. Second troponin has a negative delta and is normal at 0.03. I then had an interactive discussion with Dr. Tan of cardiology regarding patient's presentation LANGE and findings and Dr. Tan would like to see the patient in the office next week and is comfortable with him being discharged home. Because of this I feel the patient is appropriate for discharge with prescription for Tamiflu with first dose given here, prescription for Bromfed, steroids and doxycycline for atypical coverage strict return precautions. Total time in observation was 2 hours and 30 minutes. <Taj Paredes MD - Last Filed: 11/15/24 20:55> Vital Signs: 11/15/24 12:43 11/15/24 13:01 11/15/24 13:30 Temperature 98.1 F Temperature Source Oral Pulse Rate 67 64 Pulse Rate [Right] 67 Respiratory Rate 18 18 21 Blood Pressure 162/71 H 163/117 H Blood Pressure [Right Arm] 142/76 H Blood Pressure Mean [Right Arm] 98 Blood Pressure Source Blood Pressure Source [Right Arm] Automatic Cuff Blood Pressure Position Blood Pressure Position [Right Arm] Sitting 02 Sat by Pulse Oximetry 97 95 97 Oxygen Delivery Method Room Air Room Air 11/15/24 14:10 11/15/24 14:30 11/15/24 15:00 Temperature Temperature Source Pulse Rate 79 67 66 Pulse Rate [Right] Respiratory Rate 22 20 20 Blood Pressure 158/71 H 147/60 H 137/52 L Blood Pressure [Right Arm] Blood Pressure Mean [Right Arm] Blood Pressure Source Blood Pressure Source [Right Arm] Blood Pressure Position Blood Pressure Position [Right Arm] 02 Sat by Pulse Oximetry 95 96 96 Oxygen Delivery Method Room Air Room Air Room Air 11/15/24 15:30 11/15/24 16:00 11/15/24 16:31 Temperature 97.8 F Temperature Source Oral Pulse Rate 65 64 70 Pulse Rate [Right] Respiratory Rate 19 20 15 Blood Pressure 129/53 L 122/54 L 122/54 L Blood Pressure [Right Arm] Blood Pressure Mean [Right Arm] Blood Pressure Source Automatic Cuff Blood Pressure Source [Right Arm] Blood Pressure Position Supine Blood Pressure Position [Right Arm] 02 Sat by Pulse Oximetry 95 92 L Oxygen Delivery Method Room Air Room Air Lab Data Lab Results 11/15/24 12:47: SARS-CoV-2 (PCR) Not detected, Influenza A Untype (PCR) Detected A, Influenza Type B (PCR) Not detected 11/15/24 13:10: WBC 4.4 L, RBC 4.82, Hgb 15.4, Hct 45.0, MCV 93.4, MCH 32.0 H, MCHC 34.2, RDW 14.9, Plt Count 69 L, MPV 11.5 H, Neut % (Auto) 60.8, Lymph % (Auto) 24.9, [place] % (Auto) 12.8 H, Eos % (Auto) 0.5, Baso % (Auto) 0.5, Neut # (Auto) 2.7, Lymph # (Auto) 1.1, [place] # (Auto) 0.6, Eos # (Auto) 0.0, Baso # (Auto) 0.0, PT 11.4, INR 1.04, D-Dimer 0.88 H, Sodium 135 L, Potassium 4.7, Chloride 102, Carbon Dioxide 25, Anion Gap 12.7, BUN 13, Creatinine 0.80, Estimated Creat Clear 65, Estimated GFR 97, Est GFR ( Amer) 117, Glucose 73 L, Calcium 9.3, Magnesium 1.6, Total Bilirubin 1.6 H, AST 81 H, ALT 35, Alkaline Phosphatase 71, Troponin I 0.04 H, NT-Pro-B Natriuret Pep 951 H, Total Protein 7.5, Albumin 4.4, Globulin 3.1, Albumin/Globulin Ratio 1.4, Procalcitonin 0.108 11/15/24 13:11: VBG pH 7.36, VBG pCO2 36.8, VBG pO2 53.9 H, VBG HCO3 20.2 L, VBG Total CO2 21.3 L, VBG O2 Saturation 89.6 H, VBG Base Excess -5.3 L, VBG Lactic Acid 2.8 H 11/15/24 13:45: HCV Ab GLENDA w/Rflx PCR Qn Negative, HIV Ag/Ab Combo Qual Negative 11/15/24 15:25: Troponin I 0.03 Orders (Tests/Meds): ED MEDICATIONS Discontinued Medications Generic Name Dose Route Start Last Admin Trade Name Freq PRN Reason Stop Dose Admin Albuterol/Ipratropium 3 ml 11/15/24 13:10 11/15/24 13:41 Ipratropium/Albuterol 3 Ml Neb IH 11/15/24 13:11 3 ml ONCE ONE Administration Dexamethasone Sodium Phosphate 10 mg 11/15/24 13:10 11/15/24 13:41 Dexamethasone 4mg/Ml 5ml Mdv IV 11/15/24 13:11 10 mg ONCE ONE Administration Oseltamivir Phosphate 75 mg 11/15/24 15:08 11/15/24 15:23 Oseltamivir 75mg Capsule PO 11/15/24 15:09 75 mg ONCE ONE Administration ORDERS Category Date Time Status Chest XR 2 view (NOT portable) [XR chest 2V] Stat Exams 11/15/24 13:10 Completed BNP [NT Pro Brain Natriuretic Pep.] Stat Lab 11/15/24 13:10 Completed CBC w/Auto Diff [Complete Blood Count Auto Diff] Stat Lab 11/15/24 13:10 Completed CMP [Comprehensive Metabolic Panel] Stat Lab 11/15/24 13:10 Completed D-Dimer Stat Lab 11/15/24 13:10 Completed HIV Combo Stat Lab 11/15/24 13:45 Completed Hepatitis C Ab Qual. W/ RFX Stat Lab 11/15/24 13:45 Completed INR [Prothrombin Time INR] Stat Lab 11/15/24 13:10 Completed Magnesium Stat Lab 11/15/24 13:10 Completed Procalcitonin Stat Lab 11/15/24 13:10 Completed Rapid PCR Covid and Flu A/B Stat Lab 11/15/24 12:47 Completed Trop I [Troponin I] Stat Lab 11/15/24 13:10 Completed Troponin I Q3H Lab 11/15/24 15:25 Completed VBG [Venous Blood Gas] Stat RT 11/15/24 13:11 Completed HEART Score HEART Score: 6 Medical Decision Narrative: In summary patient is a 64-year-old male who presents to the emergency department for evaluation of dyspnea. Patient is hemodynamically stable upon arrival, afebrile. Physical exam is remarkable for clear breath sounds with no adventitious sounds or increased work of breathing, normal heart sounds a paced rhythm on the monitor at 67, no dependent edema noted, no abdominal tenderness rebound or guarding or rigidity.. Differential diagnosis includes upper or lower respiratory tract infection versus ACS versus CHF versus PE. Initial workup will be conducted with respiratory swabs plain film chest x-ray twelve-lead EKG hematologic labs. Initial interventions include DuoNeb and Decadron for now. Initial workup reviewed by me and his hematologic labs are significant for white count of 4.4 normal H&H no neutrophilic shift, D-dimer 0.88 and per years criteria PE is excluded, patient currently on aspirin and Plavix, VBG shows a pH of 7.36 pCO2 of 36.8 venous lactic acid 2.8, initial troponin 0.04-NT proBNP of 951 procalcitonin is 0.108 and his respiratory swabs are positive for influenza A. Upon repeat evaluation patient reported significant improvement in his dyspnea after initial intervention. Given this the patient was placed in observation status at 1400 hrs. Medical necessity for observational status is serial troponins given his significant cardiovascular history. The patient was provided serial reevaluations continuous cardiac monitoring and pulse oximetry while awaiting results. Second troponin has a negative delta and is normal at 0.03. I then had an interactive discussion with Dr. Tan of cardiology regarding patient's presentation LANGE and findings and Dr. Tan would like to see the patient in the office next week and is comfortable with him being discharged home. Because of this I feel the patient is appropriate for discharge with prescription for Tamiflu with first dose given here, prescription for Bromfed, steroids and doxycycline for atypical coverage strict return precautions. Total time in observation was 2 hours and 30 minutes. I was consulted by the ALEX, and we discussed the complexity of the problems being addressed. I approve the treatment and management plan for this patient's care in the emergency department, thus performing a substantive portion of the medical decision making. Taj Paredes MD Critical Care <GENESIS Fernandes - Last Filed: 11/15/24 16:28> Critical Care Time Critical Care Time: No
--- NOTE | 2024-11-15 13:10 | XR_ITS ---
FINAL REPORT CLINICAL HISTORY: Dyspnea COMPARISON: 01/06/2024 FINDINGS: 2 views of the chest were obtained . The heart is normal in size. A left-sided pacemaker is in place. The mediastinum is within normal limits. Patient is status post CABG. There is biapical scarring. There is emphysematous change. Lungs are otherwise clear. There is no pneumothorax. Osseous structures are unremarkable. IMPRESSION: Emphysema without acute cardiopulmonary process. Reviewed, Interpreted and Dictated by Peggy Price MD Transcribed by Noris Peters Authenticated and [facility]
--- NOTE | 2024-11-15 13:24 | PC.NURSE ---
pt arrived back to room from ct
--- NOTE | 2024-11-15 13:31 | PC.NURSE ---
RESPIRATORY NOTIFIED OF VBG
[2024-11-15 13:41] LABS: VBG Base Excess -5.3 mmol/L (-2.4-2.3); VBG HCO3 20.2 mmol/L (23-30); VBG Oxygen Saturation 89.6 % (50-70); VBG PCO2 36.8 mmol/L (35-51); VBG PH 7.36 mmol/L (7.31-7.41); VBG PO2 53.9 mmol/L (28-40); VBG Total CO2 21.3 mmol/L (23-27)
[2024-11-15] MEDS: DEXAMETHASONE 4MG/ML 5ML MDV 10 MG IV (13:41)
[2024-11-15] MEDS: IPRATROPIUM/ALBUTEROL 3 ML NEB IH (13:41)
[2024-11-15 13:42] LABS: Influenza A, PCR Detected (NotDetected)
[2024-11-15 13:44] LABS: Lactate Venous 2.8 mmol/L (0.4-2.0)
[2024-11-15 13:47] LABS: Troponin I 0.04 ng/ml (0.00-0.034)
--- NOTE | 2024-11-15 13:48 | PC.NURSE ---
LABS RECOLLECTED AT THIS TIME AND SENT TO LAB
[2024-11-15 14:12] LABS: INR 1.04 (0.9-1.1); Prothrombin Time 11.4 seconds (9.2-12.1)
[2024-11-15 14:27] LABS: NT Pro Brain Natriuretic Pep. 951 pg/mL (0-125)
[2024-11-15 14:41] LABS: Basophils % 0.5 % (0.1-2.0); Eosinophils % 0.5 % (0.1-12.0); Hemoglobin 15.4 g/dL (14.1-18.0); Lymphocytes # 1.1 K/mm3 (0.7-4.5); Lymphocytes % 24.9 % (10-50); Mean Corpuscular HGB Conc 34.2 g/dL (31.8-35.4); Mean Corpuscular Volume 93.4 fl (80-94); Mean Platelet Volume 11.5 fl (7.4-10.4); Monocytes # 0.6 K/mm3 (0.1-1.0); Monocytes % 12.8 % (1.7-9.3); Neutrophils # 2.7 K/mm3 (1.8-7.8); Neutrophils % 60.8 % (37.0-80.0); Platelet Count 69 K/mm3 (142-424); Red Blood Count 4.82 M/mm3 (4.60-6.20); Red Cell Distribution Width 14.9 % (11.5-17.5); White Blood Count 4.4 K/mm3 (4.8-10.8)
[2024-11-15 14:44] LABS: Albumin Level 4.4 g/dl (3.5-5.0); Chloride 102 mmol/L (98-107)
[2024-11-15 14:45] LABS: Potassium 4.7 mmoL/L (3.5-5.1); Sodium 135 mmol/L (136-145)
[2024-11-15 14:47] LABS: Alanine Aminotransferase 35 U/L (12-78); Albumin/Globulin Ratio 1.4 (1.1-1.8); Anion Gap 12.7 mEq/L (5-15); Aspartate Amino Transferase 81 U/L (17-59); Blood Urea Nitrogen 13 mg/dl (9-20); Carbon Dioxide 25 mmol/L (22.0-30.0); Creatinine Clearance Estimated 65 mL/min (50-200); Estimated Glomerular Filt Rate 97 ml/min (>60); GFR (African American) 117 ML/MIN (>60); Globulin 3.1 g/dL (1.3-3.2); Total Protein,Serum 7.5 g/dl (6.3-8.2)
[2024-11-15 14:48] LABS: Alkaline Phosphatase 71 U/L (38-126); Bilirubin,Total 1.6 mg/dl (0.2-1.3); Calcium 9.3 mg/dl (8.4-10.2); Glucose 73 mg/dl (74-100); Magnesium 1.6 mg/dl (1.6-2.3)
[2024-11-15 14:59] LABS: Procalcitonin 0.108 ng/mL (0.0-2.0)
[2024-11-15] MEDS: OSELTAMIVIR 75MG CAPSULE 75 MG PO (15:23)
[2024-11-15 15:24] LABS: D-Dimer 0.88 ug/mL (0.0-0.5)
[2024-11-15 16:00] LABS: Troponin I 0.03 ng/ml (0.00-0.034)
[2024-11-15 17:43] LABS: Reflex Lactic Add Lactic Reflex
[2024-11-15 18:36] LABS: HIV Combo NEGATIVE (Negative)
[2024-11-15 18:44] LABS: Hepatitis C Ab Qual. W/ RFX NEGATIVE (Negative)
== END 2024-11-15 16:40 | disposition home or self-care (01) ==
PROVIDERS: Physician Assistant; Student in an Organized Health Care Education/Training Program; Emergency Provider Emergency Medicine; PCP Family Medicine
DX: J44.1 Chronic obstructive pulmonary disease with (acute) exacerbation (principal); J10.1 Influenza due to other identified influenza virus with other respiratory manifestations; R79.89 Other specified abnormal findings of blood chemistry; R06.02 Shortness of breath; R06.00 Dyspnea, unspecified; Z20.828 Contact with and (suspected) exposure to other viral communicable diseases
CPT/HCPCS: 71046; 80053; 82803; 83735; 83880; 84145; 84484; 85025; 85378; 85610; 86803; 87389; 87636; 93005; 96374; 99284; J1100; J7620

== ENCOUNTER 2024-11-22 11:50 | Outpatient (CLI) | payer MEDICARE, MEDICAID, SELFPAY ==
--- NOTE | 2024-11-22 12:00 | CT_ITS ---
FINAL REPORT TECHNIQUE: Axial imaging of the chest is obtained after the administration of contrast. 3-D MIP reformatted images were also obtained and reviewed per PE protocol. CLINICAL HISTORY: elevated d-dimer, chest pain COMPARISON: None FINDINGS: The pulmonary arteries are well filled. There is no evidence of pulmonary embolus. Exam limited for aortic dissection due to contrast bolus timing. Heart size is normal. There is no mediastinal, hilar, or axillary lymphadenopathy. Emphysema with biapical scar. Some of the scar is calcified. 6 mm nodule medial aspect superior segment of the right lower lobe on image 46. The lungs are otherwise clear. No consolidations. There is no pleural or pericardial effusion. Limited evaluation of the upper abdomen demonstrates a nodular liver consistent with cirrhosis. The spleen is enlarged. The gallbladder is distended and contains gallstones. There is abnormal attenuation surrounding the pancreas. Bilateral nonobstructing renal stones are seen. No acute osseous abnormality. IMPRESSION: No evidence of pulmonary embolism. 6 mm right lower lobe nodule. Recommend follow-up after risk stratification per Fleischner criteria. Distended gallbladder with gallstones. Cholecystitis not excluded. Possible pancreatitis. Correlate with pancreatic enzymes. Cirrhosis and splenomegaly. Reviewed, Interpreted and Dictated by Myesha Smith MD Transcribed by Yanet Minaya Authenticated and [facility]
[2024-11-22] MEDS: 0.9 % SODIUM CHLORIDE 50 ML VIAL IV (12:11)
[2024-11-22] MEDS: SODIUM CHLORIDE 0.9% 10ML SYR (RAD ONLY) 10 ML IV (12:11)
[2024-11-22] MEDS: IOPAMIDOL-370 (76%);100ML BOTTLE 80 ML IV (12:11)
== END 2024-11-22 23:59 | disposition home or self-care (01) ==
LOC: RAD 11:51
PROVIDERS: PCP Family Medicine; Visit Provider Nurse Practitioner
DX: I50.23 Acute on chronic systolic (congestive) heart failure (principal); R79.89 Other specified abnormal findings of blood chemistry; R06.02 Shortness of breath
CPT/HCPCS: 71275; Q9967

== ENCOUNTER 2025-01-04 09:23 | Outpatient (CLI) | payer MEDICARE, MEDICAID, SELFPAY ==
--- NOTE | 2025-01-04 09:46 | US_ITS ---
FINAL REPORT TECHNIQUE: Sonographic images of the testicles and scrotum were obtained in the longitudinal and transverse planes. CLINICAL HISTORY: LARGE RT INGUINAL HERNIA -- TESTICULAR TENDERNESS COMPARISON: None FINDINGS: The right testicle measures 3.6 x 1.7 x 2.0 centimeters. There is no intratesticular mass. The right epididymis appears normal. There is a right inguinal hernia containing GI tract. A right hydrocele is noted. There is positive blood flow. No evidence of torsion. The left testicle measures 2.4 x 3.1 x 1.6 centimeters. There is no intratesticular mass. The epididymis is within normal limits. There is positive blood flow. No evidence of torsion. IMPRESSION: No evidence of intratesticular mass or evidence of torsion. Right inguinal hernia containing GI tract. Consider CT scan. Small right hydrocele. Reviewed, Interpreted and Dictated by Myesha Smith MD Transcribed by Yanet Minaya Authenticated and [facility]
[2025-01-04 10:00] LABS: Basophils % 0.5 % (0.1-2.0); Eosinophils # 0.1 Kmm3 (0.0-0.4); Eosinophils % 1.9 % (0.1-12.0); Hematocrit 44.5 % (42.0-52.0); Hemoglobin 14.5 g/dL (14.1-18.0); Immature Granulocytes # 0.03 10^3uL; Immature Granulocytes % 0.7 %; Lymphocytes # 1.5 K/mm3 (0.7-4.5); Lymphocytes % 34.8 % (10-50); Mean Corpuscular HGB Conc 32.6 g/dL (31.8-35.4); Mean Corpuscular Hemoglobin 30.9 pg (27.0-31.2); Mean Corpuscular Volume 94.9 fl (80-94); Mean Platelet Volume 10.9 fl (7.4-10.4); Monocytes # 0.5 K/mm3 (0.1-1.0); Neutrophils # 2.2 K/mm3 (1.8-7.8); Neutrophils % 51.1 % (37.0-80.0); Nucleated Red Blood Cells # 0 10^3/uL; Nucleated Red Blood Cells % 0 %; Platelet Count 123 K/mm3 (142-424); Red Blood Count 4.69 M/mm3 (4.60-6.20); Red Cell Distribution Width 15.9 % (11.5-17.5); Red Cell Distribution Width-SD 54.8 fL; White Blood Count 4.3 K/mm3 (4.8-10.8)
[2025-01-04 10:04] LABS: Ammonia < 9 umol/L (9-30)
[2025-01-04 10:06] LABS: INR 1.04 (0.9-1.1); Prothrombin Time 11.6 seconds (10.1-12.5)
[2025-01-04 10:21] LABS: Alanine Aminotransferase 30 U/L (12-78); Albumin Level 3.4 g/dl (3.5-5.0); Albumin/Globulin Ratio 1.2 (1.1-1.8); Alkaline Phosphatase 182 U/L (38-126); Anion Gap 6.8 mEq/L (5-15); Aspartate Amino Transferase 48 U/L (17-59); Bilirubin,Direct 0.2 mg/dl (0.0-0.4); Bilirubin,Indirect 1.1 mg/dL (0.0-0.9); Bilirubin,Total 1.3 mg/dl (0.2-1.3); Bilirubin,Unconjugated 1.1 mg/dL (0.0-1.1); Blood Urea Nitrogen 10 mg/dl (9-20); Calcium 9.5 mg/dl (8.4-10.2); Carbon Dioxide 28 mmol/L (22.0-30.0); Chloride 110 mmol/L (98-107); Estimated Glomerular Filt Rate 113 ml/min (>60); GFR (African American) 137 ML/MIN (>60); Globulin 2.9 g/dL (1.3-3.2); Glucose 92 mg/dl (74-100); Potassium 4.8 mmoL/L (3.5-5.1); Sodium 140 mmol/L (136-145); Total Protein,Serum 6.3 g/dl (6.3-8.2)
[2025-01-04 10:38] LABS: Iron 132 ug/dL (49-181)
[2025-01-04 10:48] LABS: Total Iron Binding Capacity 289 ug/dL (261-462)
[2025-01-04 11:15] LABS: Ferritin 39.7 ng/ml (17.9-464)
[2025-01-05 16:13] LABS: Angiotensin Converting Enzyme 111 U/L (14-82)
[2025-01-05 18:10] LABS: Actin (Smooth Muscle) Antibody 8 Units (0-19); Mitochondrial (M2) Antibody <20.0 Units (0.0-20.0)
[2025-01-09 06:37] LABS: ALT (SGPT) P5P 30 IU/L (0-55); AST (SGOT) P5P 49 IU/L (0-40); Alpha 2-Macroglobulins, Qn 326 mg/dL (110-276); Apolipoprotein A-1 136 mg/dL (101-178); Bilirubin, Total 0.7 mg/dL (0.0-1.2); Cholesterol, Total 109 mg/dL (100-199); Fibrosis Score 0.72 (0.00-0.21); Fibrosis Stage F3-F4 (.); GGT 68 IU/L (0-65); Glucose 101 mg/dL (70-99); Haptoglobin 116 mg/dL (32-363); Steatosis Score 0.34 (0.00-0.40); Triglycerides 79 mg/dL (0-149)
[2025-01-09 17:10] LABS: Alpha-1-Antitrypsin 238 mg/dL (101-187)
== END 2025-01-04 23:59 | disposition home or self-care (01) ==
LOC: RAD 09:24
PROVIDERS: Nurse Practitioner Family; PCP Family Medicine; Visit Provider Nurse Practitioner Family
DX: K40.90 Unilateral inguinal hernia, without obstruction or gangrene, not specified as recurrent (principal); N43.3 Hydrocele, unspecified; K74.60 Unspecified cirrhosis of liver
CPT/HCPCS: 36415; 76870; 80053; 82103; 82104; 82105; 82140; 82164; 82172; 82247; 82248; 82465; 82728; 82947; 82977; 83010; 83540; 83550; 83883; 84450; 84460; 84478; 85025; 85610; 86255; 86256

== ENCOUNTER 2025-01-12 08:36 | Outpatient (CLI) | payer MEDICARE, MEDICAID, SELFPAY ==
--- NOTE | 2025-01-12 08:45 | CT_ITS ---
FINAL REPORT TECHNIQUE: Thin section axial images are obtained through the abdomen and pelvis after intravenous contrast. Reconstruction images were obtained from the axial data. Exam was performed using dose reduction techniques. This study was performed with techniques to keep radiation doses as low as reasonably achievable (ALARA). Individualized dose reduction techniques using automated exposure control or adjustment of mA and/or kV according to the patient's size were employed. CLINICAL HISTORY: CT of pancreas/rule out chronic pancreatitis/dougie COMPARISON: None FINDINGS: LUNG BASES: There are rounded opacities present in the left lower lobe, that are new since the CTA of the chest performed in October. The largest opacity measures 3.3 cm. Given the rapid development of these opacities, this likely represents pneumonia, although neoplasm is not excluded. Heart size is normal. LIVER: The liver is nodular in appearance, consistent with cirrhosis. There is geographic increased density in the right lobe of the liver, favor a perfusion anomaly, as this is not seen on the delayed examination. 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 GALLBLADDER/BILIARY SYSTEM: The gallbladder is large, and contains gallstones. No biliary dilatation. SPLEEN: Splenomegaly is present, the spleen measuring 16 cm in the craniocaudal dimension. PANCREAS: No pancreatic masses or calcifications are identified, no findings of acute pancreatitis are present. ADRENALS: The right adrenal gland is normal. There is a partially calcified left adrenal nodule noted. KIDNEYS/URETERS/BLADDER: No hydronephrosis, renal mass, or renal stone. A left renal cyst is present. There are likely nonobstructing bilateral renal stones present. Unremarkable urinary bladder. GI TRACT: No small bowel obstruction or dilatation. Normal appendix. There is long segment colon wall thickening present, and colitis is not excluded. A right inguinal hernia is present, which contains nonobstructed small bowel. PELVIC ORGANS: Unremarkable for age. LYMPH NODES/RETROPERITONEUM/MESENTERY: There are multiple mildly prominent portal and periportal lymph nodes present, an 18 mm node is present on image 26 of series 2. No abdominal aortic aneurysm. ABDOMINAL WALL: The abdominal wall is intact. FREE FLUID: A small amount of ascites is present in the pelvis. BONES: No acute osseous abnormality. IMPRESSION: Rounded opacities are present in the left lower lobe, new since the prior CT of October. Given the rapid development these likely represent pneumonia, although neoplasm is not excluded. Recommend follow-up chest CT in 3 months for further evaluation. The liver is cirrhotic and there are changes of portal hypertension present. Splenomegaly is noted as well. No pancreatic masses or calcifications are identified, and there are no findings of acute pancreatitis. There is long segment wall thickening of the colon, and colitis is not excluded. Reviewed, Interpreted and Dictated by Myesha Smith MD Transcribed by Nano Pereira Authenticated and [facility]
[2025-01-12] MEDS: SODIUM CHLORIDE 0.9% 10ML SYR (RAD ONLY) 10 ML IV (09:01)
[2025-01-12] MEDS: IOPAMIDOL-370 (76%);100ML BOTTLE 75 ML IV (09:01)
== END 2025-01-12 23:59 | disposition home or self-care (01) ==
LOC: RAD 08:37
PROVIDERS: PCP Family Medicine; Visit Provider Nurse Practitioner Family
DX: K76.6 Portal hypertension (principal); R16.1 Splenomegaly, not elsewhere classified; R93.5 Abnormal findings on diagnostic imaging of other abdominal regions, including retroperitoneum; K80.20 Calculus of gallbladder without cholecystitis without obstruction; K74.60 Unspecified cirrhosis of liver; R79.89 Other specified abnormal findings of blood chemistry
CPT/HCPCS: 74177; Q9967

== ENCOUNTER 2025-03-20 12:08 | Emergency (ER) | payer MEDICARE, MEDICAID, SELFPAY ==
--- OUTSIDE RECORDS SUMMARY | 2025-01-23 09:55 | XMS_ITS | Encounter Summary ---
Author Organization [facility] Address [address] [place] [address] Care Team Providers Care Biscuitware Brusher Name Role Phone Cr Resendez MD Primary Care Provider [phone] Source Comments This information has been disclosed to you from confidential records protectfrom disclosure by state law. You shall make no further disclosure of thisinformation without the specific, written, and informed release of theindividual to whom it pertains, or as otherwise permitted by law. A generalauthorization for the release of medical or other information is not sufficientfor the purposes of the release of HIV test results or diagnoses. [id number] Encounter Details Date Type Department Care Team (Latest Contact Info) Description 01/23/2025 9:55 AM EDT - 01/23/2025 11:59 PM EDT Hospital Encounter [facility] [address] [place] [address] Nayan Mayo MD [address] [place] [address] Central cord syndrome, subsequent encounter ([facility]) Discharge Disposition: Home or Self Care WITHOUT Home Care Services Social History Tobacco Use Types Packs/Day Years Used Date Smoking Tobacco: Some Days Cigarettes Passive Smoke Exposure: Current Utilities Answer Date Recorded In the past 12 months has th [employer], gas, oil, or water [employer] threatened to shut off services in your home? Patient declined 12/07/2024 AUDIT-C Answer Date Recorded Q1: How often do you have a drink containing alc ohol? 2-4 times a month 12/07/2024 Q2: How many drinks containi ng alcohol do you have on a typical day when you are drinking? 1 or 2 12/07/2024 Q3: How often do you have si x or more drinks on one occasion? Never 12/07/2024 Hunger Vital Sign Answer Date Recorded Within the past 12 months, y ou worried that your food would run out before you got the money to buy more. Patient declined Within the past 12 months, t he food you bought just didn't last and you didn't have money to get more. Patient declined 05/2025 PRAPARE - Transportation Answer Date Re corded In the past 12 months, has l ack of transportation kept you from medical appointments or from getting medications? Patient declined 12/07/2024 In the past 12 months, has l ack of transportation kept you from meetings, work, or from getting things needed for daily living? Patient declined 12/07/2024 Housing Stability Vital Sign Answer Jairo e Recorded In the last 12 months, was t here a time when you were not able to pay the mortgage or rent on time? Patient declined 12/08/19 25 In the past 12 months, how m any times have you moved where you were living? 0 12/07/2024 At any time in the past 12 m [facility], were you homeless or living in a jail (including now)? Patient declined 12/07/2024 Sex and Gender Information Value Date Recorded Sex Assigned at Not on file Legal Sex Male 4:51 PM EST Gender Identity Not on file Sexual Orientation Not on file documented as of this encounter Medications at Time of Discharge aspirin 81 MG EC tablet Take 1 tablet (81 mg total) by mouth daily. atorvastatin (LIPITOR) 20 MG tablet Take 1 tablet (20 mg total) by mouth daily. bisoprolol (ZEBETA) 5 MG tablet Take 1 tablet (5 mg total) by mouth daily. clopidogreL (PLAVIX) 75 mg tablet Take 1 tablet (75 mg total) by mouth daily. 11/15/2024 empagliflozin (JARDIANCE) 10 mg tablet Take 1 tablet (10 mg total) by mouth daily. escitalopram oxalate (LEXAPRO) 20 MG tablet Take 1 tablet (20 mg total) by mouth daily. fluticasone-umec lidin-vilanter (TRELEGY ELLIPTA) 100-62.5-25 mcg DsDv Inhale 1 puff into the lungs 2 times a day. methocarbamoL (ROBAXIN) 500 MG tablet Take 1 tablet (500 mg total) by mouth every 6 hours as needed (muscle spasms). 28 tablet 12/14/2024 2:59 PM EDT 12/14/2024 naloxone (NARCAN) 4 mg/actuation [place] Apply 1 spray in one nostril if needed. Call 911. May repeat dose in other nostril if no response in 3 minutes. 2 each 1 12/14/2024 oxyCODONE (ROXICODONE) 10 mg Tab Take 1 tablet (10 mg total) by mouth 4 times a day as needed for Pain. polyethylene glycol (GLYCOLAX) 17 gram/dose powder Dissolve 1 capful (17g) with 8oz of liquid of choice and drink twice daily. Continue while on narcotics to decrease risk of constipation. Hold for loose stools. 238 g 12/14/2024 2:59 PM EDT 12/14/2024 sacubitriL-valsa rtan (ENTRESTO) 24-26 mg Tab Take 1 tablet by mouth 2 times a day. senna-docusate (SENNA-S) 8.6-50 mg per tablet Take 1 tablet by mouth 2 times a day. Continue while on narcotics to decrease risk of constipation. Hold for loose stools. 30 tablet 12/14/2024 2:59 PM EDT 12/14/2024 documented as of this encounter Plan of Treatment Not on file documented as of this encounter Procedures Procedure Name Priority Date/Time Associated Diagnosis Comments XR CERVICAL SPINE 2 OR 3-VIEWS Routine 01/23/2025 12:49 PM EDT Central cord syndrome, subsequent encounter ([facility]) documented in this encounter Results * X-ray Cervical Spine 2 or 3-views (01/23/2025 12:49 PM EDT) Anatomical Region Laterality Modality C-spine, T-spine, Neck Radiograp hic Imaging 01/23/2025 12:4 3 PM EDT Impressions 01/23/2025 4:32 PM EDT FINDINGS/IMPRESSION: 1. ACDF at C3-C4. No hardware complication or change in alignment. 2. Multilevel degenerative disc disease of the mid to lower cervical spine with no acute findings. Report Verified by: Jan Gordon MD at 01/23/2025 4:32 PM EDT Narrative 01/23/2025 4:32 PM EDT EXAM: XR CERVICAL SPINE 2 OR 3-VIEWS INDICATION: Central cord syndrome, subsequent encounter ([facility]) TECHNIQUE: XR CERVICAL SPINE 2 OR 3-VIEWS AP and lateral radiographs were performed. COMPARISON: December 26, 2024 Procedure Note Jan Gordon MD - 01/23/2025 EXAM: XR CERVICAL SPINE 2 OR 3-VIEWS INDICATION: Central cord syndrome, subsequent encounter ([place]) TECHNIQUE: XR CERVICAL SPINE 2 OR 3-VIEWS AP and lateral radiographs wereperformed. COMPARISON: December 26, 2024 FINDINGS/IMPRESSION: 1. ACDF at C3-C4. No hardware complication or change in alignment. 2. Multilevel degenerative disc disease of the mid to lower cervicalspine with no acute findings. Report Verified by: Jan Gordon MD at 01/23/2025 4:32 PM EDT Nayan Mayo MD IMG DIAGNOSTIC IMAGING ORDERABLE S Final Result documented in this encounter Visit Diagnoses Diagnosis Central cord syndrome, subsequent encounter ([place]) documented in this encounter Care Teams Biscuitware Brusher Relationship Specialty Start Date End Date Cr Resendez MD [address] [place] [address] [place] [address] PCP - General Family Medicine 12/07/24 documented as of this encounter
--- OUTSIDE RECORDS SUMMARY | 2025-01-23 13:00 | XMS_ITS | Encounter Summary ---
Author Organization [facility] Address [address] [place] [id number] Care Team Providers Care Senior Web Engineer Name Role Phone Cr Resendez MD Primary Care Provider [phone] Source Comments This information has been disclosed [...] release of HIV test results or diagnoses. [id number] Reason for Visit * Reason Comments Follow-up C3-4 Encounter Details Date Type Department Care Team (Late st Contact Info) Description 01/23/2025 1:00 PM EDT Office Visit [facility] Orthopa[facility] [address] [facility] [address] [place] [address] Donta Rivas MD [address] [place] [address] Central cord syndrome, initial encounter ([facility]) (Primary Dx); Central cord syndrome, subsequent encounter ([facility]); Cervical spondylosis with myelopathy Social History Tobacco Use Types Packs/Day Years Used Date Smoking Tobacco: Some Days Cigarettes Passive Smoke Exposure: Current Utilities Answer Date Recorded In the past 12 months has th e [employer], gas, oil, or water company threatened to shut off services in your [...] any time in the past 12 m [facility], were you homeless or living in a assisted (including now)? Patient declined 12/07/2024 Sex and Gender Information Value Date Recorded Sex Assigned at Not on file Legal Sex Male 4:51 PM EST Gender Identity Not on file Sexual Orientation Not on file documented as of this encounter Last Filed Vital Signs Vital Sign Reading Time Taken Comments Blood Pressure - - Pulse - - Temperature - - Respiratory Rate - - Oxygen Saturation - - Inhaled Oxygen Concentration - - Weight 65.8 kg (145 lb) 01/23/2025 1:04 PM EDT Height 172.7 cm (5' 8 ) 01/23/2025 1:04 PM EDT Body Mass Index 22.05 01/23/2025 1:04 PM EDT documented in this encounter Progress Notes * Donta Rivas MD - 01/23/2025 1:00 PM EDT Chief Complaint: follow up visit Subjective: Rl Steward is a 64 y.o. male s/p C3-4 ACDF 12/11/2024 Central cord syndrome, subsequent encounter ([facility]) [S14.129D] Cervical spondylosis with myelopathy [M47.12] He is in cervical collar and is using a cane. He previously stopped gabapentin due to nightmares He is doing well ROS: All others negative except for as stated in HPI No past medical history on file. No past surgical history on file. Social History Socioeconomic History Marital status: Spouse name: Not on file Number of children: Not on file Years of education: Not on file Highest education level: Not on file Occupational History Not on file Tobacco Use Smoking status: Some Days Types: Cigarettes Passive exposure: Current Smokeless tobacco: Not on file Substance and Sexual Activity Alcohol use: Not on file Drug use: Not on file Sexual activity: Not on file Other Topics Concern Not on file Social History Narrative Not on file Social Drivers of Health Financial Resource Strain: Not on file Food Insecurity: Patient Declined (12/07/2024) Hunger Vital Sign Worried About Running Out of Food in the Last Year: Patient declined Ran Out of Food in the Last Year: Patient declined Transportation Needs: Patient Declined (12/07/2024) PRAPARE - Transportation Lack of Transportation (Medical): Patient declined Lack of Transportation (Non-Medical): Patient declined Physical Activity: Not on file Stress: Not on file Social Connections: Not on file Intimate Partner Violence: Not At Risk (12/11/2024) Humiliation, Afraid, Rape, and Kick questionnaire Fear of Current or Ex-Partner: No Emotionally Abused: No Physically Abused: No Sexually Abused: No Housing Stability: Patient Declined (12/07/2024) Housing Stability Vital Sign Unable to Pay for Housing in the Last Year: Patient declined Number of Times Moved in the Last Year: 0 Homeless in the Last Year: Patient declined Allergies[1] Home Medications Medication Sig Taking? Last Dose aspirin 81 MG EC tablet Take 1 tablet (81 mg total) by mouth daily. atorvastatin (LIPITOR) 20 MG tablet Take 1 tablet (20 mg total) by mouth daily. bisoprolol (ZEBETA) 5 MG tablet Take 1 tablet (5 mg total) by mouth daily. clopidogreL (PLAVIX) 75 mg tablet Take 1 tablet (75 mg total) by mouth daily. empagliflozin (JARDIANCE) 10 mg tablet Take 1 tablet (10 mg total) by mouth daily. escitalopram oxalate (LEXAPRO) 20 MG tablet Take 1 tablet (20 mg total) by mouth daily. jtnohbjjwkx-ewzopbubf-ijpwnemu (TRELEGY ELLIPTA) 100-62.5-25 mcg DsDv Inhale 1 puff into the lungs 2 times a day. methocarbamoL (ROBAXIN) 500 MG tablet Take 1 tablet (500 mg total) by mouth every 6 hours as needed(muscle spasms). naloxone (NARCAN) 4 mg/actuation [place] Apply 1 spray in one nostril if needed. Call 911. May repeat dose in other nostril if no response in 3 minutes. oxyCODONE (ROXICODONE) 10 mg Tab Take 1 tablet (10 mg total) by mouth 4 times a day as needed for Pain. polyethylene glycol (GLYCOLAX) 17 gram/dose powder Dissolve 1 capful (17g) with 8oz of liquid of choice and drink twice daily. Continue while on narcotics to decrease risk of constipation. Hold for loose stools. sacubitriL-valsartan (ENTRESTO) 24-26 mg Tab Take 1 tablet by mouth 2 times a day. senna-docusate (SENNA-S) 8.6-50 mg per tablet Take 1 tablet by mouth 2 times a day. Continue while on narcotics to decrease risk of constipation. Hold for loose stools. Objective: Vitals: 01/23/25 1304 Weight: 145 lb (65.8 kg) Height: 5' 8 (1.727 m) Physical Exam: Spine Musculoskeletal Exam General Constitutional: appears stated age Psychiatric: normal mood and affect Neurological: alert and oriented x3 General additional comments: Grade 5/5 bilateral UE Intact sensation to light touch Using a walking cane Imaging: X-rays were performed in the office today and independently reviewed that showed C3-4 ACDFwith no signs of loosening backout or breakage Assessment: Rl Steward is a 64 y.o. male who presents s/p C3-4 ACDF 12/11/2024 for Central cord syndrome, initial encounter Cervical spondylosis with myelopathy [M47.12]. He is doing well and does not feel that he needs to have PT. Plan: Discontinue the cervical collar Follow up in 6 weeks I answered all of the patient's questions to his satisfaction and understanding and he is in agreement with the plan. DONTA RIVAS MD MD,PhD [1] Allergies Allergen Reactions Adhesive Tape-Silicones Tape pulls my skin off. Can only use paper tape documented in this encounter Plan of Treatment Not on file documented as of this encounter Results * X-ray Cervical Spine [...] 3-VIEWS INDICATION: Central cord syndrome, subsequent encounter ([facility]) TECHNIQUE: XR CERVICAL SPINE 2 OR 3-VIEWS AP and lateral radiographs were performed. COMPARISON: December 26, 2024 Procedure Note Jan Gordon MD - 01/23/2025 EXAM: XR CERVICAL SPINE 2 OR 3-VIEWS INDICATION: Central cord syndrome, subsequent encounter ([facility]) TECHNIQUE: XR CERVICAL SPINE 2 OR 3-VIEWS AP and lateral radiographs wereperformed. COMPARISON: December 26, 2024 FINDINGS/IMPRESSION: 1. ACDF at C3-C4. No hardware complication or change in alignment. 2. Multilevel degenerative disc disease of the mid to lower cervicalspine with no acute findings. Report Verified by: Jan Gordon MD at 01/23/2025 4:32 PM EDT us Donta Rivas MD IMG DIAGNOSTIC IMAGING ORDERABLE S Final Result documented in this encounter Visit Diagnoses Diagnosis Central cord syndrome, initial encounter ([facility])- Primary Central cord syndrome, subsequent encounter ([facility]) Cervical spondylosis with myelopathy Central cord syndrome, subsequent encounter ([facility]) documented in this encounter Care Teams Senior Web Engineer Relationship Specialty Start Date End Date Cr Resendez MD [address] [place] [address] [address] [place], [place] [address] PCP - General Family Medicine 12/07/24 documented as of this encounter
--- OUTSIDE RECORDS SUMMARY | 2025-02-09 11:02 | XMS_ITS | Encounter Summary ---
Author Organization [facility] Address [address] [place] [address] Care Team Providers Care Hop Separator Name Role Phone Unavailable Primary Care Provider Unavailabl e Reason for Referral * Imaging (Routine) - Closed Specialty Diagnoses / Procedures Referred By Vicente alaniz Referred To Contact Radiology Diagnoses Abnormality of alphafetoprotein Other specified abnormal findings of blood chemistry Unspecified cirrhosis of liver (CMS/HCC) Procedures CT Abdomen w and wo IV Contrast Isabella Saucedo APRN [address] [place] [address] Phone: tel: fax: Referral ID Status Reason Start Date Expiration Date Visits Re quested Visits Authorized [id number] Closed 01/18/2025 07/20/2026 1 1 Reason for Visit * Imaging (Routine) - Closed Specialty Diagnoses / Procedures Referred By Vicente alaniz Referred To Contact Radiology Diagnoses Abnormality of alphafetoprotein Other specified abnormal findings of blood chemistry Unspecified cirrhosis of liver (CMS/HCC) Procedures CT Abdomen w and wo IV Contrast Isabella Saucedo APRN [address] [place] [address] Phone: tel: fax: Referral ID Status Reason Start Date Expiration Date Visits Re quested Visits Authorized [id number] Closed 01/18/2025 07/20/2026 1 1 Encounter Details Date Type Department Care Team (Latest Contact Info) Description 02/09/2025 11:02 AM EDT - 02/09/2025 11:59 PM EDT Hospital Encounter [facility] [address] [place] [address] Abnormality of alphafetoprotein; Other specified [...] inhaler Inhale 2 puffs 4 times a day. 09/28/2024 atorvastatin (Lipitor) 20 MG tablet Take 1 tablet by mouth nightly. 01/30/2025 clopidogrel (Plavix) 75 MG tablet Take 1 tablet by mouth 1 time each day. 11/15/2024 clotrimazole (Lotrimin) 1 % cream Apply 1 Application topically as needed. 12/27/2024 escitalopram (Lexapro) 20 MG tablet Take 1 tablet by mouth 1 time each day. 09/07/2024 furosemide (Lasix) 20 MG tablet Take 1 tablet by mouth daily. 02/05/2025 naloxone (Narcan) 4 mg/0.1 mL nasal spray 0.1 mL by Nasal route daily as needed for Opioid Reversal. 12/21/2024 documented as of this encounter Miscellaneous Notes * Megan Alejandra - 02/09/2025 11:04 AM EDT Images from the original note were not included. 6840 Caring for Yourself after Contrast Imaging If [...] are consistent with and integrated into the [place] [employer] Study of Liver Diseases [...] are consistent with and integrated into the [place] Associationfor the Study of Liver Diseases (AASLD) [...] Puja Bernstein MD on 02/09/2025 3:29 PM Isabella Saucedo APRN IMG CT PROCEDURES Final Re sult documented [...]
--- OUTSIDE RECORDS SUMMARY | 2025-03-14 10:00 | XMS_ITS | Encounter Summary ---
Author Organization Healthcare Address [address] [place] [address] Care Team Providers Care Jewelry Sales Associate Name Role Phone Isabella Saucedo [employer] LAW CLERK Unavailable [phone] Jeannie Mcmillan RN Unavailable [phone] Ebony Shoemaker Unavailable [phone] Reason for Visit * Reason Comments Liver Lesion * Consultation (Routine) - Closed Specialty Diagnoses / Procedures Referred By Vicente t Referred To Contact Transplant Diagnoses Elevated AFP Liver lesion Hepatic cirrhosis, unspecified hepatic cirrhosis type, unspecified whether ascites present (CMS/HCC) Isabella Saucedo, FEDERAL COURT OF APPEALS LAW CLERK [address] [place] [address] Phone: tel: fax: [facility] [address] [address] Phone: tel: fax: Referral ID Status Reason Start Date Expiration Date V isits Requested Visits Authorized [id number] Closed Specialty Services Required 03/06/2025 09/05/2026 1 1 Encounter Details Date Type Department Care Team (Late st Contact Info) Description 03/14/2025 10:00 AM EDT Office Visit [facility] [address] [address] Peter Do MD [address] [address] HCC (hepatocellular carcinoma) (Primary Dx) [...] a 64 y.o.-year-old male w/ PMHx cirrhosis, [place], CAD s/p CABG x4 with re-stenosis withrevision, [...] Tobacco Use: High Risk (12/27/2024) Received from [facility] Patient History Smoking Tobacco Use: Every Day [...] a 64 y.o.-year-old male w/ PMHx cirrhosis, [place], CAD s/p CABG x4 with re-stenosis withrevision, [...] documented as of this encounter Care Teams Jewelry Sales Associate Relationship Specialty Start Date End Date Isabella Saucedo APRN [address] [place] [phone] Referring Physician 02/26/25 Jeannie Mcmillan, RN CH-TRANSPLANT ADMINISTRATION [address] [place] [address] Registered Nurse Transplant Surgery 03/08/25 [place] [address] Registered Nurse Transplant Surgery 03/08/25 documented as of this encounter
--- OUTSIDE RECORDS SUMMARY | 2025-03-14 11:20 | XMS_ITS | Encounter Summary ---
Author Organization Healthcare Address [address] [place] [address] Care Team Providers Care Pearl Hand Name Role Phone LewisIsabella Phong PROJECTION ENGINEER Unavailable [phone] Jeannie Mcmillan RN Unavailable [phone] Ebony Shoemaker Unavailable [phone] Reason for Referral * Imaging (Routine) - Closed Specialty Diagnoses / Procedures Referred By Contac t Referred To Contact Radiology Diagnoses Elevated AFP Liver lesion Hepatic cirrhosis, unspecified hepatic cirrhosis type, unspecified whether ascites present (CMS/HCC) Procedures CT CHEST WO IV CONTRAST Peter Do MD [address] [address] Phone: tel: fax: Referral ID Status Reason Start Date Expiration Date Visits Re quested Visits Authorized [id number] Closed 03/14/2025 09/13/2026 1 1 Reason for Visit * Imaging (Routine) - Closed Specialty Diagnoses / Procedures Referred By Contac t Referred To Contact Radiology Diagnoses Elevated AFP Liver lesion Hepatic cirrhosis, unspecified hepatic cirrhosis type, unspecified whether ascites present (CMS/HCC) Procedures CT CHEST WO IV CONTRAST Peter Do MD [address] [address] Phone: tel: fax: Referral ID Status Reason Start Date Expiration Date Visits Re quested Visits Authorized [id number] Closed 03/14/2025 09/13/2026 1 1 Encounter Details Date Type Department Care Team (Latest Contact Info) Description 03/14/2025 11:20 AM EDT - 03/14/2025 11:59 PM EDT Hospital Encounter [facility] [address] [place] [address] Elevated AFP; Liver lesion; Hepatic [...] Shari Moseley documented as of this encounter Medications at Time of Discharge albuterol 108 (90 Base) MCG/ACT inhaler Inhale 2 puffs 4 times a day. 09/28/2024 aspirin 81 MG EC tablet Take 1 tablet by mouth 1 time each day. atorvastatin (Lipitor) 20 MG tablet Take 1 tablet by mouth nightly. 01/30/2025 bisoprolol (Zebeta) 5 MG tablet Take 1 [...] daily as needed for Opioid Reversal. 12/21/2024 nitroglycerin (Nitrodur) 0.4 MG/HR patch Place 1 patch on the skin daily. oxyCODONE-acetam inophen (Percocet) 7.5-325 MG tablet TAKE 1 TABLET BY ORAL ROUTE 3 TIMES A DAY FOR 30 DAYS M54.17 02/23/2025 Trelegy Ellipta 100-62.5-25 MCG/ACT aerosol powder INHALE 1 PUFF INTO THE LUNGS DAILY AT 0900. documented as of this encounter Plan of [...] signing this report, I, the attending physician, attestthat I have personally reviewed the images/data for the aboveexamination(s) and agree with the final edited report. Drafted by Gurvinder Pathak on 03/14/2025 12:17 PM Final report signed by Rodrigo Craven MD on 03/14/2025 1:46 PM us Peter Do MD IMG CT PROCEDURES Final [...] documented as of this encounter Care Teams Pearl Hand Relationship Specialty Start Date End Date Isabella Saucedo APRN [address] [place] [address] Referring Physician 02/26/25 Jeannie Mcmillan, RN [facility] [address] [place], [place] [id number] Registered Nurse Transplant Surgery 03/08/25 Ebony Shoemaker [place] [id number] Registered Nurse Transplant Surgery 03/08/25 documented as of this encounter
--- NOTE | 2025-03-20 12:16 | ECG_ITS ---
APPROVED REPORT Exam: Resting ECG HR:72 bpm ECG Measurements Heart Rate 72 AXES WA 147 P 66 QRSd 101 QRS -50 QT 379 T 85 QTc 402 Conclusion SINUS RHYTHM WITH OCCASIONAL VENTRICULAR PREMATURE COMPLEXES INCOMPLETE RIGHT BUNDLE BRANCH BLOCK [90+ ms QRS DURATION, TERMINAL R IN V1/V2, 40+ ms S IN I/aVL/V4/V5/V6] LEFT ANTERIOR FASCICULAR BLOCK [QRS AXIS <= -45, QR IN I, RS IN II] ANTEROSEPTAL MYOCARDIAL INFARCTION , PROBABLY RECENT [40+ ms Q WAVE IN V1-V4] ACUTE VT UNCONFIRMED REPORT Normal sinus rhythm. PVCs noted. No ST elevation or depression. T wave inversions in V2, V3, V4, V5 Electronically signed by : TEE LOONEY, 03/20/2025 17:04:22
[2025-03-20 12:19] VITALS: BP 162/77; PULSE 66; RESP 18; TEMP 36.6; O2SAT 97; BMI 22.8
--- OUTSIDE RECORDS SUMMARY | 2025-03-20 12:20 | XMS_ITS | Encounter Summary ---
Author Organization [place] [address] Care Team Providers Care Applier Name Role Phone Jan Sin MD Unavailable [phone] Macario Pryor MD Unavailable [facility] Cr Resendez MD Primary Care Provider [phone] Reason for Visit * Reason Onset Date Comments Orders 01/02/2025 US needs to be f axed to [facility] they said they don't have it. Follow Up 01/02/2025 US order Encounter Details Date Type Department Care Team (Late st Contact Info) Description 01/02/2025 Telephone ABDULLAHI [place] [facility] [place] [address] Cr Resendez MD [address] [place] [address] [place] [address] Orders (US needs to be faxed to [facility] they said they don't have it. ); Follow Up (US order) Social History Tobacco Use Types Packs/Day Years [...] as of this encounter Functional Status * Is the person deaf or does he/she have serious difficulty hearing? Answer Date of Assessment Author No 11/24/2021 10:05 AM EDT Danny Jones MA * Is the person blind or does he/she have serious difficulty seeing even when wearing glasses? Answer Date of Assessment Author No 11/24/2021 10:05 AM EDT Danny Jones MA * Does this person have serious difficulty walking or climbing stairs? Answer Date of Assessment Author No 11/24/2021 10:05 AM EDT Danny Jones MA * Does this person have difficulty dressing or bathing? Answer Date of Assessment Author No 11/24/2021 10:05 AM EDT Danny Jones MA * Because of a physical, mental or emotional condition, does this person have difficulty doing errands alone such as visiting a doctor's office or shopping? Answer Date of Assessment Author No 11/24/2021 10:05 AM EDT Danny Jones MA documented as of this encounter Mental Status * Because of a physical, mental or emotional condition, does this person have serious difficulty concentrating, remembering or making decisions? Answer Entry Date Author No 11/24/2021 10:05 AM IRAIST Danny Jones MA documented in this encounter Miscellaneous Notes * Telephone Encounter - Elizabeth Ortiz RMA - 01/02/2025 12:01 PM EDT No auth required will fax to [facility] * Telephone Encounter - Cr Resendez MD - 01/02/2025 11:16 AM EDT Please fax the imaging order for the ultrasound to [facility] * Telephone Encounter - Veronica Rey MA - 01/02/2025 11:08 AM EDT Select the most appropriate reason for this telephone message: Follow Up Follow Up Who is Calling:Other , Ashley What is the caller following up on (make sure to reference any prior documentation/encounter):Ashley states she just spoke with [facility] & they told her authorization needs to be sent along with US order. Ashley confirmed pt's insurance on file is correct - Medicare & Medicaid. Further follow-up needed?:Yes Return Method of Communication:Other N/A Additional Information:N/A * Telephone Encounter - Rodney Azevedo - 01/02/2025 11:00 AM EDT Select the most appropriate reason for this telephone message: Order Request Who is requesting the Order(s): Other pt What Orders are being requested: Radiology Reason Orders are Needed (Diagnosis): US needs to be faxed to [facility] they said they don't have it. Why is this encounter being sent: Other: [facility] in [place] needs this order What types of radiology orders are being requested: Other: US Is patient waiting at lab/hospital/facility: No If non-[facility], where should the order be faxed (include fax number): [facility] Upcoming PCP appointment date: none Return Method of Communication: Phone Call Additional Information: please advise pt once sent. documented in this encounter Plan of Treatment [...] filedocumented in this encounter Additional Health Concerns Assessment Noted Time PHQ-9 Depression Total Score: 10 024 1:00 PM EDT A fall risk assessment has been complete d for the patient 06/20/2024 1:28 PM EDT PHQ-2 Depression Total Score: 3 06/20/20 24 1:00 PM EDT documented as of this encounter Care Teams Applier Relationship Specialty Start Date End Date Macario Pryor MD [address] [place] [address] [place] [address] PCP - Hematology/Oncology Internal Medicine-Medical Oncology 11/12/15 Cr Resendez MD [address] [place] [address] [place] [address] PCP - General Family Medicine 11/24/21 Jan Sin MD [address] [place] [address] [place] [address] Internal Medicine-Cardiovascul ar Disease 08/28/14 documented as of this encounter
--- NOTE | 2025-03-20 12:22 | CT_ITS ---
FINAL REPORT TECHNIQUE: After the administration of intravenous contrast, axial images were obtained through the abdomen and pelvis by computed tomography. This study was performed with technique to keep radiation doses as low as reasonably achievable, (ALARA). Individualized dose reduction techniques using automated exposure control or adjustment of the MA and/or KV according to the patient's size were employed. CLINICAL HISTORY: abdominal pain, DX WITH LIVER CA 2 WEEKS AGO COMPARISON: 01/12/2025 FINDINGS: Abdomen: The lung bases are clear. There is cholelithiasis with chronic gallbladder distention. There is a heterogeneous, masslike area with enhancement in the central liver. Majority of this process is cystic/necrotic in nature. Abnormality measures 7.1 x 5.4 cm, previously measured 5.0 x 4.6 cm. This low-density area is new and may communicate with the biliary tract. Differential diagnosis includes primary hepatocellular carcinoma with necrosis, cholangiocarcinoma or intrahepatic abscess from cholangitis. This is amenable to image guided aspiration. There is cirrhosis and splenomegaly. A left adrenal calcification is likely related to old trauma or infection. There are tiny bilateral nonobstructing renal stones. There is no evidence of bowel obstruction. Pelvis: There is chronic enlargement of the distal appendix measuring up to 9 mm. Urinary bladder and prostate are unremarkable. There is a small right inguinal hernia. IMPRESSION: Marked interval enlargement of the liver lesion with new central necrosis. Differential diagnosis includes enlarging hepatocellular carcinoma with central necrosis, other neoplasm such as cholangiocarcinoma or hepatic abscess communicating with the biliary tree. Reviewed, Interpreted and Dictated by Peggy Price MD Transcribed by Noris Peters Authenticated and [facility]
--- OUTSIDE RECORDS SUMMARY | 2025-03-20 12:22 | XMS_ITS | Encounter Summary ---
Author Organization [place] [address] Care Team Providers Care Mill Set Up Name Role Phone Jan Sin MD Unavailable [phone] Macario Pryor MD Unavailable [facility] Cr Resendez MD Primary Care Provider [phone] Reason for Visit * Reason Onset Date Comments Referral 12/29/2024 called annemarie thomason for status of the referral being sent to [facility] - please advise. Encounter Details Date Type Department Care Team (Late st Contact Info) Description 12/29/2024 Telephone ABDULLAHI [place] [address] Cr Resendez MD [address] [place] [address] [place] [address] Referral ( called asking for status of the referral being sent to [facility] - please advise.) Social History Tobacco Use Types Packs/Day Years [...] Entry Date Author No 11/24/2021 10:05 AM Danny Mckeon MA documented in this encounter Miscellaneous Notes * Telephone Encounter - Elizabeth Ortiz RMA - 12/29/2024 2:54 PM EDT Spouse notified the ordered was just faxed over * Telephone Encounter - Bruna Fox - 12/29/2024 2:38 PM EDT Select the most appropriate reason for this telephone message: Referral Request Who is requesting the referral: Other What type of referral: Order US SCROTUM AND TESTICLES (Order # [id number]) on 12/27/2024 View Encounter What is the reason / diagnosis for this referral:K40.90 (ICD-10-CM) - 550.90 (ICD-9-CM) - Right inguinal hernia Have you been seen by your PCP for this issue: Yes Does patient have a preference on a group/provider: Yes (if yes, complete preferred provider info below) Preferred Provider/Group Name: [facility] Preferred Provider/Group Phone Number: Preferred Provider/Group Fax Number: pt's didn't have it there in front of her Return Method of Communication: Phone Call Additional Information: Please advise if this has already been faxed to them or if we're waiting for any reason to send this? did speak with hospital and they said they haven't rec'd anything just yet. please advise. documented in this encounter Plan of Treatment [...] documented as of this encounter Care Teams Mill Set Up Relationship Specialty Start Date End Date Macario Pryor MD [address] [place] [address] [place] [address] PCP - Hematology/Oncology Internal Medicine-Medical Oncology 11/12/15 Cr Resendez MD [address] [place] [address] [place] [address] PCP - General Family Medicine 11/24/21 Jan Sin MD [address] [place] [address] [place] [address] Internal Medicine-Cardiovascul ar Disease 08/28/14 documented as of this encounter
--- OUTSIDE RECORDS SUMMARY | 2025-03-20 12:22 | XMS_ITS | Encounter Summary ---
Author Organization [place] [address] Care Team Providers Care Supply Chain Procurement Manager Name Role Phone Jan Sin MD Unavailable [phone] Macario Pryor MD Unavailable Unavailabl e Cr Resendez MD Primary Care Provider [phone] Reason for Visit * Reason Comments Medication Refill Encounter Details Date Type Department Care Team (Late st Contact Info) Description 01/29/2025 Refill SEP Luis [facility] [place] [address] Cr Resendez MD [address] [place] [address] [place] [address] Medication Refill Social History Tobacco Use Types Packs/Day Years [...] Entry Date Author No 11/24/2021 10:05 AM EDDanny Ashby MA documented in this encounter Ordered Prescriptions Prescription Sig Dispense Quantity Refills Last Filled Start Date End Date atorvastatin (LIPITOR) 20 mg Oral TabletIndications:S /P CABG x 4 Take 1 Tablet by mouth nightly. 90 Tablet 3 01/30/2025 documented in this encounter Miscellaneous Notes * Telephone Encounter - Shona Lomeli CPhT - 01/30/2025 7:47 AM EDT Atorvastatin Future Visit: N/A Last Assessed Visit: N/A Follow-Up Date: N/A Appointment protocol failed AND this patient requires the following labs/vitals. Routing to the office. Lipid panel (12 months) documented in this encounter Plan of Treatment Not on file documented as of this encounter Goals Goal Patient Goal Type Associated Problems Recent Progress Patient-Stated? Author Blood Pressure < 140/90 Blood Pressure 102/56(2024 9:46 AM EDT) No Jun Cruz MD Eat better, exercise, reach an ideal body weight General No Solo Lowry, ARIELLE Stay Tobacco Free Lifestyle No Solo Lowry RMA LDL Direct < 100 Result Component No Abdiaziz Cheng MD documented as of this encounter Visit Diagnoses Diagnosis S/P CABG x 4 Postsurgical aortocoronary bypass status documented in this encounter Discontinued Medications Medication Sig Discontinue Reason Start Date End Da te atorvastatin (LIPITOR) 20 mg Oral TabletIndications:S/P CABG x 4 Take 1 Tablet by mouth nightly. 01/14/2024 01/30/2025 documented as of this encounter Additional Health Concerns Assessment Noted Time PHQ-9 Depression Total Score: 10 024 1:00 PM EDT A fall risk assessment has been complete d for the patient 06/20/2024 1:28 PM EDT PHQ-2 Depression Total Score: 3 06/20/20 24 1:00 PM EDT documented as of this encounter Care Teams Supply Chain Procurement Manager Relationship Specialty Start Date End Date Macario Pryor MD [address] [place] [address] [place] [address] PCP - Hematology/Oncology Internal Medicine-Medical Oncology 11/12/15 Cr Resendez MD [address] [place] [address] [place] [address] PCP - General Family Medicine 11/24/21 Jan Sin MD [address] [place] [address] [place] [address] Internal Medicine-Cardiovascul ar Disease 08/28/14 documented as of this encounter
--- OUTSIDE RECORDS SUMMARY | 2025-03-20 12:22 | XMS_ITS | Encounter Summary ---
Author Organization [place] [address] Care Team Providers Care Tunneller Name Role Phone Jan Sin MD Unavailable [phone] Macario Pryor MD Unavailable Unavailabl e Cr Resendez MD Primary Care Provider [phone] Reason for Visit * Reason Onset Date Comments Other 01/25/2025 insurance compan y called asking if office can watch for active patient verification form was rec'd. Please advise. Encounter Details Date Type Department Care Team (Late st Contact Info) Description 01/25/2025 Telephone ABDULLAHI RODRIGUEZ [address] [place] [address] [place] [address] Cr Resendez MD [address] [place] [address] [place] [address] Other (insurance company called asking if office can watch for active patient verification form was rec'd. Please advise.) Social History Tobacco Use Types Packs/Day [...] Telephone Encounter - Elizabeth Ortiz RMA - 01/25/2025 1:47 PM EDT This was received faxing back now * Telephone Encounter - Bruna Fox - 01/25/2025 1:09 PM EDT Select the most appropriate reason for this telephone message: Other Who is calling (name & relationship to patient if not the patient): [facility] What is needed OR why are they calling: [facility] called to confirm if office rec'd paperwork from them (sent via fax on 01/19) to verify if this patient is active with Dr. Resendez or not. Please call to confirm if this was rec'd. As of 01/25, nothing has been scanned into the chart and call center could not and did not confirm any info to the caller about this patient. Advised for caller to send fax again. When is this needed by: when rec'd Where does this information need to go: PCP Return Method of Communication: Phone Call Additional information:Please return fax with provider signature if appropriate No ref # given documented in this encounter Plan of Treatment [...] documented as of this encounter Care Teams Tunneller Relationship Specialty Start Date End Date Macario Pryor MD [address] [place] [address] [place] [address] PCP - Hematology/Oncology Internal Medicine-Medical Oncology 11/12/15 Cr Resendez MD [address] [place] [address] [place] [address] PCP - General Family Medicine 11/24/21 Jan Sin MD [address] [place] [address] [place] [address] Internal Medicine-Cardiovascul ar Disease 08/28/14 documented as of this encounter
--- OUTSIDE RECORDS SUMMARY | 2025-03-20 12:22 | XMS_ITS | Encounter Summary ---
Author Organization [place] [address] Care Team Providers Care Chemical Detection Expert Name Role Phone Jan Sin MD Unavailable [phone] Macario Pryor MD Un[facility] Resendez MD Primary Care Provider [phone] Encounter Details Date Type Department Care Team (Late st Contact Info) Description 12/22/2024 Results Follow-Up SEP Luis [address] [place] [address] Cr Resendez MD [address] [place] [address] [place] [address] BASIC METABOLIC PANEL Social History Tobacco Use Types Packs/Day Years [...] Entry Date Author No 11/24/2021 10:05 AM EDT Danny Jones MA documented in this encounter Progress Notes * Cr Resendez MD - 12/22/2024 8:08 AM EDT Kidney function and electrolytes were normal documented in this encounter Plan of Treatment [...] documented as of this encounter Care Teams Chemical Detection Expert Relationship Specialty Start Date End Date Macario Pryor MD [address] [place] [address] [place] [address] PCP - Hematology/Oncology Internal Medicine-Medical Oncology 11/12/15 Cr Resendez MD [address] [place] [address] [place] [address] PCP - General Family Medicine 11/24/21 Jan Sin MD [address] [place] [address] [place] [address] Internal Medicine-Cardiovascul ar Disease 08/28/14 documented as of this encounter
--- OUTSIDE RECORDS SUMMARY | 2025-03-20 12:22 | XMS_ITS | Encounter Summary ---
Author Organization [place] [address] Care Team Providers Care Sound Editor Name Role Phone Jan Sin MD Unavailable [phone] Macario Pryor MD Unavailable [facility] Cr Resendez MD Primary Care Provider [phone] Reason for Visit * Reason Onset Date Comments Other 12/20/2024 Katt sorin pc p to call her before pt appt on 12/21 Encounter Details Date Type Department Care Team (Late st Contact Info) Description 12/20/2024 Telephone SEP Luis RODRIGUEZ [address] [place] [address] Cr Resendez MD [address] [place] [address] [place] [address] Other (Katt needs pcp to call her before pt appt on 12/21) Social History Tobacco Use Types Packs/Day Years [...] encounter Miscellaneous Notes * Telephone Encounter - Cr Resendez MD - 12/21/2024 8:54 AM EDT I attempted to call prior to the appointment Katt but she did not answer. Will address concerns at the appointment with family * Telephone Encounter - Tung Hardinggurdeep Dyer - 12/20/2024 12:12 PM EDT Select the most appropriate reason for this telephone message: Other Who is calling (name & relationship to patient if not the patient): Katt daughter What is needed OR why are they calling: Katt is wanting pcp to give her a call before his appt tomorrow. Katt states that this is very important that she speaks to him. When is this needed by: zain Where does this information need to go: Dipti Darling Return Method of Communication: Phone Call Additional information: this is in reference to pt dementia. Thanks documented in this encounter Plan of Treatment [...] documented as of this encounter Care Teams Sound Editor Relationship Specialty Start Date End Date Macario Pryor MD [address] [place] [address] [place] [address] PCP - Hematology/Oncology Internal Medicine-Medical Oncology 11/12/15 Cr Resendez MD [address] [place] [address] [place] [address] PCP - General Family Medicine 11/24/21 Jan Sin MD [address] [place] [address] [place] [address] Internal Medicine-Cardiovascul ar Disease 08/28/14 documented as of this encounter
--- OUTSIDE RECORDS SUMMARY | 2025-03-20 12:22 | XMS_ITS | Encounter Summary ---
Author Organization [place] [address] Care Team Providers Care Spa Therapist Name Role Phone Jan Sin MD Unavailable [phone] Macario Pryor MD Unavailable Unavailabl e Cr Resendez MD Primary Care Provider [phone] Reason for Visit * Reason Comments Medication Refill Encounter Details Date Type Department Care Team (Late st Contact Info) Description 02/12/2025 Refill SEP Luis [facility] [place] [address] [address] Cr Resendez MD [address] [place] [address] [address] [place] [id number] Medication Refill Social History Tobacco Use Types [...] of Assessment Author No 11/24/2021 10:05 AM EDDanny Ashby MA * Is the person blind or does he/she have serious difficulty seeing even when wearing glasses? Answer Date of Assessment Author No 11/24/2021 10:05 AM Danny Mckeon MA * Does this person have serious difficulty walking or climbing stairs? Answer Date of Assessment Author No 11/24/2021 10:05 AM Danny Mckeon MA * Does this person have difficulty dressing or bathing? Answer Date of Assessment Author No 11/24/2021 10:05 AM EDDanny Ashby MA * Because of a physical, mental or emotional condition, does this person have difficulty doing errands alone such as visiting a doctor's office or shopping? Answer Date of Assessment Author No 11/24/2021 10:05 AM Danny Mckeon MA documented as of this encounter Mental Status * Because of a physical, mental or emotional condition, does this person have serious difficulty concentrating, remembering or making decisions? Answer Entry Date Author No 11/24/2021 10:05 AM Danny Mckeon MA documented in this encounter Ordered Prescriptions Prescription Sig Dispense Quantity Refills Last Filled Start Date End Date cyclobenzaprine (FLEXERIL) 5 mg Oral TabletIndications:M uscle spasm Take 1 Tablet by mouth every 8 hours as needed. 60 Tablet 2 02/12/2025 documented in this encounter Plan of Treatment [...] as of this encounter Visit Diagnoses Diagnosis Muscle spasm Spasm of muscle documented in this encounter Discontinued Medications Medication Sig Discontinue Reason Start Date End Da te cyclobenzaprine (FLEXERIL) 5 mg Oral TabletIndications:Muscle spasm Take 1 Tablet by mouth every 8 hours as needed. 09/27/2024 02/12/2025 documented as of this encounter Additional Health Concerns Assessment Noted Time PHQ-9 Depression Total Score: 10 024 1:00 PM EDT A fall risk assessment has been complete d for the patient 06/20/2024 1:28 PM EDT PHQ-2 Depression Total Score: 3 06/20/20 24 1:00 PM EDT documented as of this encounter Care Teams Spa Therapist Relationship Specialty Start Date End Date Maacrio Pryor MD [address] [place] [address] [place] [address] PCP - Hematology/Oncology Internal Medicine-Medical Oncology 11/12/15 Cr Resendez MD [address] [place] [address] [place] [address] PCP - General Family Medicine 11/24/21 Jan Sin MD [address] [place] [address] [place] [address] Internal Medicine-Cardiovascul ar Disease 08/28/14 documented as of this encounter
--- NOTE | 2025-03-20 12:23 | XR_ITS ---
FINAL REPORT CLINICAL HISTORY: short of breath COMPARISON: 11/15/2024 FINDINGS: A single frontal view of the chest was obtained. No acute pulmonary opacity is present. There is no evidence of effusion or pneumothorax. There is evidence of prior median sternotomy, presumably from CABG. Otherwise, mediastinum is unremarkable. A left-sided pacer is present. Heart size is normal. IMPRESSION: Unremarkable chest, status post CABG. Reviewed, Interpreted and Dictated by Peggy Price MD Transcribed by Yanet Minaya Authenticated and [facility]
--- OUTSIDE RECORDS SUMMARY | 2025-03-20 12:24 | XMS_ITS | Encounter Summary ---
Author Organization [facility] Address [address] [place] [address] Care Team Providers Care Export Freight Manager Name Role Phone Isabella Saucedo AMMUNITION ASSEMBLY I LABORER Unavailable [phone] Jeannie Mcmillan RN Unavailable [phone] [address] Shoemaker Unavailable [phone] Encounter Details Date Type Department Care Team (Latest Contact Info) Description 03/10/2025 Travel Social History Tobacco Use Types Packs/Day Years Used Date Smoking Tobacco: Never Assessed Sex and Gender Information Value Date Recorded Sex Assigned at Not on file Legal Sex Male 7:50 PM EDT Gender Identity Not on file Sexual Orientation Not on file documented as of this encounter Plan of Treatment Not on file documented as of this encounter Visit Diagnoses Not on filedocumented in this encounter Care Teams Export Freight Manager Relationship Specialty Start Date End Date Isabella Saucedo APRN [address] [place] [address] Referring Physician 02/26/25 Jeannie Mcmillan, RN [facility] [address] [place] [address] Registered Nurse Transplant Surgery 03/08/25 [place] [address] Registered Nurse Transplant Surgery 03/08/25 documented as of this encounter
--- OUTSIDE RECORDS SUMMARY | 2025-03-20 12:24 | XMS_ITS | Encounter Summary ---
Author Organization [facility] Address [address] [place] [address] Care Team Providers Care Rn Transfer Name Role Phone Isabella Saucedo MUCK MINER Unavailable [phone] Jeannie Mcmillan RN Unavailable [phone] [address] Shoemaker Unavailable [phone] Encounter Details Date Type Department Care Team (Latest Contact Info) Description 03/14/2025 Travel Social History Tobacco Use Types Packs/Day [...] Shari Moseley documented as of this encounter Plan of [...] documented as of this encounter Care Teams Rn Transfer Relationship Specialty Start Date End Date Lewis Isabella Darling APRN [address] [place] [address] Referring Physician 02/26/25 Jeannie Mcmillan, RN [facility] [address] [place] [address] Registered Nurse Transplant Surgery 03/08/25 [place] [address] Registered Nurse Transplant Surgery 03/08/25 documented as of this encounter
--- OUTSIDE RECORDS SUMMARY | 2025-03-20 12:24 | XMS_ITS | Encounter Summary ---
Author Organization [facility] Address [address] [place] [address] Care Team Providers Care Representative Name Role Phone Isabella Saucedo KNIFE FINISHER Unavailable [phone] Reason for Visit * Reason Comments Appointment Encounter Details Date Type Department Care Team (Late st Contact Info) Description 03/05/[address] [facility] [address] [facility] [address] [place] [address] Angelita Reeves [place] [id number] Appointment Social History Tobacco Use Types Packs/Day Years Used Date Smoking Tobacco: Never Assessed Sex and Gender Information Value Date Recorded Sex Assigned at Not on file Legal Sex Male 7:50 PM EDT Gender Identity Not on file Sexual Orientation Not on file documented as of this encounter Miscellaneous Notes * Telephone Encounter - Angelita Reeves - 03/05/2025 11:55 AM EDT Called and spoke with patient who requested I speak with his and provided another number to reach his , Ashley at at. [phone]. Called patient's , Ashley and offered to schedule new patient appointment. Ashley advised she just got to a meeting and would need to give me a call back after she was done. Provided my contact information for Ashley to call back. documented in this encounter Plan of Treatment Not on file documented as of this encounter Visit Diagnoses Not on filedocumented in this encounter Care Teams Representative Relationship Specialty Start Date End Date Isabella Saucedo, KNIFE FINISHER [address] [place] [address] Referring Physician 02/26/25 documented as of this encounter
--- OUTSIDE RECORDS SUMMARY | 2025-03-20 12:24 | XMS_ITS | Encounter Summary ---
Author Organization [facility] Address [address] [place] [address] Care Team Providers Care Olive Grower Name Role Phone Isabella Saucedo SUPERVISOR CURED MEATS Unavailable [phone] Reason for Referral * Consultation (Routine) - Pending Review Specialty Diagnoses / Procedures Referred By Contac t Referred To Contact Transplant Diagnoses End-stage liver disease (CMS/HCC) Haroon Cannon MD [address] [address] Phone: tel: fax: [facility] [place] [address] [address] Phone: tel: fax: Referral ID Status Reason Start Date Expiration Date Visits Requested Visits Authorized [id number] Pending Review Specialty Services Required 03/06/2025 09/05/2026 1 1 Reason for Visit * Reason Comments Appointment Encounter Details Date Type Department Care Team (Late st Contact Info) Description 03/06/2025 Telephone [facility] [place] [address] [address] [place] [address] Appointment Social History Tobacco Use Types Packs/Day Years Used Date Smoking Tobacco: Never Assessed Sex and Gender Information Value Date Recorded Sex Assigned at Not on file Legal Sex Male 7:50 PM EDT Gender Identity Not on file Sexual Orientation Not on file documented as of this encounter Miscellaneous Notes * Telephone Encounter - Angelita Reeves - 03/06/2025 12:28 PM EDT Called patient to schedule new patient appointment after being financially cleared, spoke with patient's Ashley and she had questions about the nature of the referral. Upon further review of records, patient has been transferred to the Transplant Surgical clinic. The initial consult appointment is scheduled for Wednesday03/14/2025 at 8:30 am. Advised fasting for labs is not required. Provided surgical clinic schedulers name and contact information. Invite sent to D[facility] via text message. Called referring providers office, spoke with Veronica and advised referral has been redirected to the Transplant Surgical clinic, and advised patient's had questions about the referral. documented in this encounter Plan of Treatment Scheduled Orders Name Type Priority Associated Diagnoses Orde r Schedule ABO/Rh Lab Routine End-stage liver disease (CMS/HCC) Expected: 03/06/2025 (Approximate), Expires: 09/07/2026 Alpha fetoprotein, serum Lab Routine End-stage liver disease (CMS/HCC) Expected: 03/06/2025 (Approximate), Expires: 09/07/2026 Hemogram (CBC) Lab Routine End-stage liver disease (CMS/HCC) Expected: 03/06/2025 (Approximate), Expires: 09/07/2026 Comprehensive metabolic panel Lab Routine End-stage liver disease (CMS/HCC) Expected: 03/06/2025 (Approximate), Expires: 09/07/2026 Protime-INR Lab Routine End-stage liver disease (CMS/HCC) Expected: 03/06/2025 (Approximate), Expires: 09/07/2026 Comprehensive Urine Drug Screening, Qualitative Assay, >= 27 Drug Classes Lab Routine End-stage liver disease (CMS/HCC) Expected: 03/06/2025 (Approximate), Expires: 09/07/2026 Nicotine Cotinine Metabolite Lab Routine End-stage liver disease (CMS/HCC) Expected: 03/06/2025 (Approximate), Expires: 09/07/2026 Pain Management, Quantitative Urine Drug Testing Lab Routine End-stage liver disease (CMS/HCC) Expected: 03/06/2025 (Approximate), Expires: 09/07/2026 Alcohol Urine Lab Routine End-stage liver disease (CMS/HCC) Expected: 03/06/2025 (Approximate), Expires: 09/07/2026 Hepatitis C Antibody Lab Routine End-stage liver disease (CMS/HCC) Expected: 03/06/2025 (Approximate), Expires: 09/07/2026 Hepatitis B Surface Antigen Lab Routine End-stage liver disease (CMS/HCC) Expected: 03/06/2025 (Approximate), Expires: 09/07/2026 HEPATITIS B SURFACE ANTIBODY, QUANTITATIVE Lab Routine End-stage liver disease (CMS/HCC) Expected: 03/06/2025 (Approximate), Expires: 09/07/2026 Hepatitis A Antibody IgG Lab Routine End-stage liver disease (CMS/HCC) Expected: 03/06/2025 (Approximate), Expires: 09/07/2026 Scheduled Referrals Name Type Priority Associated Diagnoses Order Schedule Initial Clinic Evaluation - Transplant Hepatology Outpatient Referral Routine End-stage liver disease (CMS/HCC) 1 Occurrences starting 03/06/2025 until 09/07/2026 documented as of this encounter Visit Diagnoses Diagnosis End-stage liver disease (CMS/HCC)- Primary Other sequelae of chronic liver disease documented in this encounter Care Teams Olive Grower Relationship Specialty Start Date End Date Isabella Saucedo APRN [address] [place] [address] Referring Physician 02/26/25 documented as of this encounter
--- OUTSIDE RECORDS SUMMARY | 2025-03-20 12:24 | XMS_ITS | Encounter Summary ---
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 Hepatic cirrhosis, unspecified hepatic cirrhosis type, unspecified whether ascites present (CMS/HCC) Isabella Saucedo APRN [facility] [facility] [address] [place] [address] Phone: tel: fax: Referral ID Status Reason Start Date Expiration Date Visits Requested Visits Authorized [id number] Authorized Specialty Services Required 02/26/[phone] Encounter Details Date Type Department Care Team (Late st Contact Info) Description 02/26/2025 [facility] [address] [place] [address] Isabella Saucedo APRN [address] [facility] [address] [place] [address] Invasion of liver, gallbladder, pancreas, ipsilateral branch of portal vein, 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) (Primary Dx); Elevated alpha fetoprotein; Hepatic cirrhosis, unspecified hepatic cirrhosis type, unspecified whether ascites present (CMS/HCC) Social History Tobacco Use Types Packs/Day Years Used Date Smoking Tobacco: Never Assessed Sex and Gender Information Value Date Recorded Sex Assigned at Not on file Legal Sex Male 7:50 PM EDT Gender Identity Not on file Sexual Orientation Not on file documented as of this encounter Plan of Treatment Scheduled Referrals Name Type Priority Associated Diagnoses Orde r Schedule Ambulatory referral to Liver Transplant Team Outpatient Referral Routine Invasion of liver, gallbladder, pancreas, ipsilateral branch of portal vein, 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 Hepatic cirrhosis, unspecified hepatic cirrhosis type, unspecified whether ascites present (CMS/HCC) Expected: 02/26/2025 (Approximate), Expires: 08/30/2026 documented as of this encounter Visit Diagnoses Diagnosis Invasion of liver, gallbladder, pancreas, ipsilateral branch of portal vein, 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 Other nonspecific findings on examination of blood Hepatic cirrhosis, unspecified hepatic cirrhosis type, unspecified whether ascites present (CMS/HCC) documented in this encounter Care Teams Cdl Team Truck Driver Relationship Specialty Start Date End Date Isabella Saucedo APRN [address] [place] [facility] [address] [place] [address] Referring Physician 02/26/25 Jeannie Mcmillan RN [facility] [address] [place] [address] Registered Nurse Transplant Surgery 03/08/25 Ebony Shoemaker [place] [id number] Registered Nurse Transplant Surgery 03/08/25 documented as of this encounter
--- OUTSIDE RECORDS SUMMARY | 2025-03-20 12:24 | XMS_ITS | Encounter Summary ---
Author Organization [facility] Address [address] [place] [address] Care Team Providers Care Stummel Selector Name Role Phone Isabella Saucedo FACTORY MANAGER Unavailable [phone] Jeannie Mcmillan RN Unavailable [phone] Ebony Shoemaker Unavailable [phone] Encounter Details Date Type Department Care Team (Late st Contact Info) Description 11/22/2024 Orders Only External Location [address] [place] [address] Provider, External Social History Tobacco Use Types Packs/Day Years [...] Name Priority Date/Time Associated Diagnosis Comments CT THORACIC OUTSIDE IMAGES 11/22/2024 12:00 PM EDT documented in this encounter Results * CT THORACIC OUTSIDE IMAGES (11/22/2024 12:00 PM EDT) Anatomical Region Laterality Modality Computed Tomogra phy 11/22/2024 12:0 0 PM EDT us External Provider IMG CT PROCEDURES Final Result documented in this encounter Visit Diagnoses Not on filedocumented in this encounter Care Teams Stummel Selector Relationship Specialty Start Date End Date Isabella Saucedo APRN [address] [place] [address] Referring Physician 02/26/25 Jeannie Mcmillan, RN [facility] [address] [place], [place] [id number] Registered Nurse Transplant Surgery 03/08/25 [place] [address] Registered Nurse Transplant Surgery 03/08/25 documented as of this encounter
--- OUTSIDE RECORDS SUMMARY | 2025-03-20 12:24 | XMS_ITS | Encounter Summary ---
Author Organization [facility] Address [address] [place] [address] Care Team Providers Care Rda Name Role Phone Isabella Saucedo KILN FEEDER Unavailable [phone] Jeannie Mcmillan RN Unavailable [phone] Ebony Shoemaker Unavailable [phone] Encounter Details Date Type Department Care Team ([facility] Contact Info) Description 06/03/2022 Orders Only External Location [address] [place] [address] Provider, External Social History Tobacco Use Types [...] Procedure Name Priority Date/Time Associated Diagnosis Comments IR ABDOMEN OUTSIDE IMAGES 06/03/2022 12:00 AM EDT documented in this encounter Results * IR ABDOMEN OUTSIDE IMAGES (06/03/2022 12:00 AM EDT) Anatomical Region Laterality Modality X-Ray Angiograph y 06/03/2022 us External Provider IMG IR PROCEDURES Final Result documented in this encounter Visit Diagnoses Not on filedocumented in this encounter Care Teams Rda Relationship Specialty Start Date End Date Isabella Saucedo APRN [address] [place] [address] Referring Physician 02/26/25 Jeannie Mcmillan, RN [facility]MINISTRATION [address] [place] [address] Registered Nurse Transplant Surgery 03/08/25 [place] [address] Registered Nurse Transplant Surgery 03/08/25 documented as of this encounter
--- OUTSIDE RECORDS SUMMARY | 2025-03-20 12:24 | XMS_ITS | Clinical Summary ---
Author Organization Healthcare Address [address] [place] [address] Care Team Providers Care Shell Sieve Operator Name Role Phone LewisBereniceIsabella J CRNA Unavailable [phone] Jeannie Mcmillan RN Unavailable [phone] Ebony Shoemaker Unavailable [phone] Allergies No known active allergies Medications albuterol 108 (90 Base) MCG/ACT inhaler Inhale 2 puffs 4 times a day. 5 Active aspirin 81 MG EC tablet Take 1 tablet by mouth 1 time each day. Active atorvastatin (Lipitor) 20 MG tablet Take 1 tablet by mouth nightly. 5 Active bisoprolol (Zebeta) 5 MG tablet Take 1 tablet by mouth daily. Active clopidogrel (Plavix) 75 MG tablet Take 1 tablet by mouth 1 time each day. 5 Active clotrimazole (Lotrimin) 1 % cream Apply 1 Application topically as needed. 5 Active cyclobenzaprine (Flexeril) 5 MG tablet Take 1 tablet by mouth every 8 hours as needed. 5 Active Jardiance 10 MG Take 1 tablet by mouth daily. Active escitalopram (Lexapro) 20 MG tablet Take 1 tablet by mouth 1 time each day. 5 Active furosemide (Lasix) 20 MG tablet Take 1 tablet by mouth daily. 5 Active naloxone (Narcan) 4 mg/0.1 mL nasal spray 0.1 mL by Nasal route daily as needed for Opioid Reversal. 5 Active oxyCODONE-aceta minophen (Percocet) 7.5-325 MG tablet TAKE 1 TABLET BY ORAL ROUTE 3 TIMES A DAY FOR 30 DAYS M54.17 Active Entresto 24-26 MG tablet Take 1 tablet by mouth 2 times a day. Active Trelegy Ellipta 100-62.5-25 MCG/ACT aerosol powder INHALE 1 PUFF INTO THE LUNGS DAILY AT 0900. Active nitroglycerin (Nitrodur) 0.4 MG/HR patch Place 1 patch on the skin daily. Active Encounters Date Type Department Care Team Description 03/16/2025 Telephone [facility] Transplant [place] [address] [address] Ebony Shoemaker Txp Surgical Follow-up (Ernestina: Tumor Board Discussion 03/16/25) 03/14/2025 11:20 AM EDT - 03/14/2025 11:59 PM EDT Hospital Encounter [facility] [address] [place] [address] Elevated AFP; Liver lesion; Hepatic cirrhosis, unspecified hepatic cirrhosis type, unspecified whether ascites present (CMS/HCC) Discharge Disposition: Home or Self Care 03/14/2025 10:00 AM EDT Office Visit [place] [id number] [address] Peter Do MD HCC (hepatocellular carcinoma) (Primary Dx) 03/14/2025 Orders Only [place] [id number] [address] Ebony Shoemaker Liver lesion (Primary Dx); Elevated AFP; Hepatic cirrhosis, unspecified hepatic cirrhosis type, unspecified whether ascites present (CMS/HCC) 03/14/2025 Travel 03/10/2025 Travel 03/07/2025 Travel 03/06/2025 Telephone [facility] Transplant [place] [address] [phone] Cici Ramírez 03/06/2025 Telephone [facility] [place] [address] [facility] [address] [phone] Angelita Reeves Appointment 03/05/2025 Telephone [facility] [address] [place] [address] Angelita Reeves Appointment 02/26/2025 Telephone [facility] [address] [place] [address] Angelita Reeves Referral - Liver Txp 02/26/2025 [facility] [address] [place] [address] Isabella Saucedo, CRNA Invasion of liver, gallbladder, pancreas, ipsilateral branch of portal vein, 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) (Primary Dx); Elevated alpha fetoprotein; Hepatic cirrhosis, unspecified hepatic cirrhosis type, unspecified whether ascites present (CMS/HCC) 02/19/2025 [facility] [address] [place] [address] Isabella Saucedo APRN Elevated alpha fetoprotein (Primary Dx); Liver tumor 02/09/2025 11:02 AM EDT - 02/09/2025 11:59 PM EDT Hospital Encounter [facility] [address] [place] [address] Abnormality of alphafetoprotein; Other specified abnormal findings of blood chemistry; Unspecified cirrhosis of liver (CMS/HCC) Discharge Disposition: Home or Self Care 02/09/2025 Travel 01/12/2025 Orders Only External Location [address] [place] [phone] Provider, External 01/12/2025 Orders Only External Location [address] [place] [address] Provider, External 01/04/2025 Orders Only External Location [address] [place] [phone] Provider, External from Last 3 Months Social History Tobacco Use Types Packs/Day Years Used Date Smoking Tobacco: Never Assessed PHQ-2 Answer Date Recorded Patient Health Questionnaire-2 Score 0 03/14/2025 Sex and Gender Information Value Date Recorded Sex Assigned at Not on file Legal Sex Male 7:50 PM EDT Gender Identity Not on file Sexual Orientation Not on file Last Filed Vital Signs Vital Sign Reading [...] Mass Index 20.92 03/14/2025 9:04 AM EDT Plan of Treatment Health Maintenance Due Date Last Done Comments [facility]-Hepatitis C Screening 1960 [facility]-/Child/Adol SDOH Screenings 1960 [id number]-30 Vaccine (#1) 1963 [facility]- SDOH Screenings 1976 [facility]-Adult SDOH Screenings 1976 [facility]-Hepatitis A Vaccines (1 of 2 - Risk 2-dose series) 1977 [facility]-Zoster Vaccines (1 of 2) 1977 [facility]-DTaP,Tdap,and Td Vaccines (1 - Tdap) 11/04/1996 11/03/1996 CT Colonography 2003 Colonoscopy 2003 FIT-DNA 2003 FIT 2003 FOBT 2003 Sigmoidoscopy 2003 [facility]-Colorectal Cancer Screening 2003 [facility]-RSV Vaccine: 60+ Years or (1 - Risk 60-74 years 1-dose series) 2018 [facility]-Medicare Annual Wellness (AWV) 12/13/2024 12/14/2023, 11/26/2022, 11/24/2021 [facility]-Influenza Vaccine (#1) 04/30/202506/20, 06/03/2023, 06/11/2021, Additional history exists [facility]-Depression Screening 03/14/2026 03/14/2025 [facility]-Pneumococcal Vaccine: 50+ Years Completed 12/14/2023, 05/08/2019, 07/18/2012 HPV Vaccines Aged Out No longer eligi ble based on patient's age to complete this topic [facility]-HIB Vaccines Aged Out No longer e ligible based on patient's age to complete this topic [facility]-IPV Vaccines Aged Out No longer e ligible based on patient's age to complete this topic [facility]-Rotavirus Vaccines Aged Out No lo nger eligible based on patient's age to complete this topic Procedures Procedure Name Priority Date/Time Associated Diagnosis Comments CT CHEST WO IV CONTRAST Routine 03/14/2025 11:30 AM EDT Elevated AFP Liver lesion Hepatic cirrhosis, unspecified hepatic cirrhosis type, unspecified whether ascites present (CMS/HCC) ALPHA FETOPROTEIN, SERUM STAT 03/14/2025 8:38 AM EDT Elevated AFP Liver lesion Hepatic cirrhosis, unspecified hepatic cirrhosis type, unspecified whether ascites present (CMS/HCC) CANCER ANTIGEN, GI (CA 19.9) STAT 03/14/2025 8:38 AM EDT Elevated AFP Liver lesion Hepatic cirrhosis, unspecified hepatic cirrhosis type, unspecified whether ascites present (CMS/HCC) Other abnormal tumor markers CEA, SERUM STAT 03/14/2025 8:38 AM EDT Elevated AFP Liver lesion Hepatic cirrhosis, unspecified hepatic cirrhosis type, unspecified whether ascites present (CMS/HCC) COMPREHENSIVE METABOLIC PANEL, PLASMA STAT 03/14/2025 8:38 AM EDT Elevated AFP Liver lesion Hepatic cirrhosis, unspecified hepatic cirrhosis type, unspecified whether ascites present (CMS/HCC) CBC W/O DIFFERENTIAL STAT 03/14/2025 8:38 AM EDT Elevated AFP Liver lesion Hepatic cirrhosis, unspecified hepatic cirrhosis type, unspecified whether ascites present (CMS/HCC) PROTHROMBIN TIME(PT) / INR STAT 03/14/2025 8:38 AM EDT Elevated AFP Liver lesion Hepatic cirrhosis, unspecified hepatic cirrhosis type, unspecified whether ascites present (CMS/HCC) CT ABDOMEN W AND WO IV CONTRAST Routine 02/09/2025 11:37 AM EDT Abnormality of alphafetoprotein Other specified abnormal findings of blood chemistry Unspecified cirrhosis of liver (CMS/HCC) CT OUTSIDE IMAGES 01/12/2025 8:[address] MSK OUTSIDE IMAGES 01/12/2025 8:45 AM EDT US OUTSIDE IMAGES 01/04/2025 10: 16 AM EDT PROTHROMBIN TIME(PT) / INR Routine 01/04/2025 SODIUM, PLASMA Routine 01/04/2025 CREATININE, PLASMA Routine 01/04/2025 TOTAL BILIRUBIN, PLASMA Routine 01/04/2025 ALBUMIN, PLASMA Routine 01/04/2025 from Last 3 Months Results * CT CHEST WO IV CONTRAST [...] signing this report, I, the attending physician, [email or web address] I have personally reviewed the images/data for the aboveexamination(s) and agree with the final edited report. Drafted by Gurvinder Pathak on 03/14/2025 12:17 PM Final report signed by Rodrigo Craven MD on 03/14/2025 1:46 PM Peter Do MD IM CT PROCEDURES Final Res ult * (ABNORMAL) Alpha Fetoprotein, Serum (03/14/2025 8:38 AM EDT) Alpha Fetoprotein, Serum 1,098.0(H) <10.0 ng/mL 03/14/2025 10:22 AM EDT [facility] Blood Venous blood specimen / Unknown Venipuncture / Unknown 03/14/2025 8:38 AM EDT 03/14/2025 9:03 AM EDT Narrative [facility] - 03/14/2025 10:22 AM EDT Performed by Ricky electrochemiluminescent immunoassay which is traceable to the 1st [facility] IRP WHO Reference standard 72/255. Results obtained with different test methods or kits cannot be used interchangeably. Peter Do MD LAB BLOOD ORDERABLES Final Result [facility] [address] [place] [address] * Cancer Antigen, GI (CA 19.9) (03/14/2025 8:38 AM EDT) CA 19.9 26.5 <36 U/mL 03/14/2025 10:22 AM EDT [facility] Blood Venous blood specimen / Unknown Venipuncture / Unknown 03/14/2025 8:38 AM EDT 03/14/2025 9:03 AM EDT Narrative [facility] - 03/14/2025 10:22 AM EDT Performed by Ricky electrochemiluminescent immunoassay. Results obtained with different test methods or kits cannot be used interchangeably. Peter Do MD LAB BLOOD ORDERABLES Final Result Performing Organization Address City/[facility]/ZIP Co de Phone Number [facility] [address] [place] [address] * Protime-INR (03/14/2025 8:38 AM EDT) Only the most recent of2 resultswithin the time period is included. Prothrombin Time 13.5 12.0 - 14.3 sec LAB COAGULATION METHOD 03/14/2025 9:44 AM EDT [facility] INR 1.0 0.9 - 1.1 LAB COAGULATION METHOD 03/14/2025 9:44 AM EDT [facility] Blood Venous blood specimen / Unknown Venipuncture / Unknown 03/14/2025 8:38 AM EDT 03/14/2025 9:03 AM EDT Narrative [facility] - 03/14/2025 9:44 AM EDT OPTIMAL INR RANGES FOR PATIENT ON ORAL ANTICOAGULANT THERAPY Prevention of venous thromboembolism INR 2.0 to 3.0 In patients with heart disease: Atrial fibrillation INR 2.0 to 3.0 Valvular heart disease INR 2.0 to 3.0 Tissue heart valves INR 2.0 to 3.0 Mechanical prosthetic valves INR 2.5 to 3.5 Prevention of recurrent IL INR 2.5 to 3.5 Peter Do MD LAB BLOOD ORDERABLES Final Result [facility] [address] [place] [address] * (ABNORMAL) CBC w/o differential (03/14/2025 8:38 AM EDT) [facility] WBC Count 5.56 3.70 - 10.30 10*3/uL LAB HEMATOLOGY METHOD 03/14/2025 9:51 AM EDT [facility] RBC Count 4.98 4.60 - 6.10 10*6/uL LAB HEMATOLOGY METHOD 03/14/2025 9:51 AM EDT [facility] HGB 15.9 13.7 - 17.5 g/dL LAB HEMATOLOGY METHOD 03/14/2025 9:51 AM EDT [facility] HCT 48.7 40.0 - 51.0 % LAB HEMATOLOGY METHOD 03/14/2025 9:51 AM EDT [facility] Platelet Count 96(L) 155 - 369 10*3/uL LAB HEMATOLOGY METHOD 03/14/2025 9:51 AM EDT [facility] MCV 98 79 - 98 fL LAB HEMATOLOGY METHOD 03/14/2025 9:51 AM EDT [facility] MCH 31.9 26.0 - 32.0 pg LAB HEMATOLOGY METHOD 03/14/2025 9:51 AM EDT [facility] MCHC 32.6 30.7 - 35.5 g/dL LAB HEMATOLOGY METHOD 03/14/2025 9:51 AM EDT [facility] RDW 17.2(H) 11.5 - 14.5 % LAB HEMATOLOGY METHOD 03/14/2025 9:51 AM EDT [facility] MPV 11.0 8.8 - 12.5 fL LAB HEMATOLOGY METHOD 03/14/2025 9:51 AM EDT [facility] nRBC 0.0 <=0.0 per 100 WBCs LAB HEMATOLOGY METHOD 03/14/2025 9:51 AM EDT [facility] Blood Venous blood specimen / Unknown Venipuncture / Unknown 03/14/2025 8:38 AM EDT 03/14/2025 9:03 AM EDT Peter Do MD LAB BLOOD ORDERABLES Final Result Performing Organization Address [facility] Co de Phone Number [facility] [address] [place] [address] * (ABNORMAL) CEA, Serum (03/14/2025 8:38 AM EDT) CEA, Serum 5.2(H) <4.0 ng/mL 03/14/2025 10:22 AM EDT [facility] Blood Venous blood specimen / Unknown Venipuncture / Unknown 03/14/2025 8:38 AM EDT 03/14/2025 9:03 AM EDT Narrative [facility] - 03/14/2025 10:22 AM EDT Normal range for smokers: < 5.5 ng/ml Normal range for non-smokers: <=4.0 ng/ml Performed by Ricky electrochemiluminescent immunoassay. Results obtained with different test methods or kits cannot be used interchangeably. Peter Do MD LAB BLOOD ORDERABLES Final Result Performing Organization Address [facility] Co de Phone Number [facility] [address] [place] [address] * (ABNORMAL) Comprehensive Metabolic Panel (03/14/2025 8:38 AM EDT) Glucose, Plasma 104(H) 74 - 99 mg/dL 03/14/2025 9:30 AM EDT [facility] BUN, Plasma 12 8 - 23 mg/dL 03/14/2025 9:30 AM EDT [facility] Creatinine, Plasma 0.80 0.70 - 1.20 mg/dL 03/14/2025 9:30 AM EDT [facility] BUN/Creatinine Ratio 15 03/14/2025 9:30 AM EDT [facility] Sodium, Plasma 142 136 - 145 mmol/L 03/14/2025 9:30 AM EDT [facility] Potassium, Plasma 3.8 3.6 - 4.9 mmol/L 03/14/2025 9:30 AM EDT [facility] Chloride, Plasma 102 97 - 107 mmol/L 03/14/2025 9:30 AM EDT [facility] CO2, Plasma 28 22 - 29 mmol/L 03/14/2025 9:30 AM EDT [facility] Anion Gap 12 6 - 16 mmol/L 03/14/2025 9:30 AM EDT [facility] Total Calcium, Plasma 9.8 8.9 - 10.2 mg/dL 03/14/2025 9:30 AM EDT [facility] Total Protein 8.0(H) 6.3 - 7.9 g/dL 03/14/2025 9:30 AM EDT [facility] Albumin, Plasma 4.2 3.5 - 5.2 g/dL 03/14/2025 9:30 AM EDT [facility] AST, Plasma 78(H) 10 - 50 U/L 03/14/2025 9:30 AM EDT [facility] ALT, Plasma 50 10 - 50 U/L 03/14/2025 9:30 AM EDT [facility] Alkaline Phosphatase, Plasma 210(H) 40 - 115 U/L 03/14/2025 9:30 AM EDT [facility] Total Bilirubin, Plasma 0.8 0.2 - 1.1 mg/dL 03/14/2025 9:30 AM EDT [facility] eGFRcr 97.6 mL/min/1.7 3m*2 03/14/2025 9:30 AM EDT [facility] Comment:Reported eGFRcr in m L/min/1.73m2 is based the CKD-EPI 2020 equation that does not use a race coefficient. Blood Venous blood specimen / Unknown Venipuncture / Unknown 03/14/2025 8:38 AM EDT 03/14/2025 9:03 AM EDT us Peter Do MD LAB BLOOD ORDERABLES Final Result [facility] [address] [address] * CT Abdomen w and wo IV [...] are consistent with and integrated into the [employer] Liver Diseases [...] are consistent with and integrated into the [employer] Associationfor the Study of Liver Diseases (AASLD) [...] on 02/09/2025 3:29 PM us Isabella Saucedo CRNA IMG CT PROCEDURES Final Re sult * CT OUTSIDE IMAGES (01/12/2025 8:45 AM EDT) Anatomical Region Laterality Modality Computed Tomogra phy 01/12/2025 8:45 AM EDT us External Provider IMG CT PROCEDURES Final Result * CT MSK OUTSIDE IMAGES (01/12/2025 8:45 AM EDT) Anatomical Region Laterality Modality Computed Tomogra phy 01/12/2025 8:45 AM EDT us External Provider IMG CT PROCEDURES Final Result * US OUTSIDE IMAGES (01/04/2025 10:16 AM EDT) Anatomical Region Laterality Modality Ultrasound 01/04/2025 10:1 6 AM EDT us External Provider IMG US PROCEDURES Final Result * Creatinine, Plasma (01/04/2025) External Creatinine Blood 0.70 mg/dL Blood Venous blood specimen / Unknown 01/04/2025 us Historical Provider LAB BLOOD ORDERABLES Courtney l Result * Sodium, Plasma (01/04/2025) External Sodium 140 mmol/L Blood Venous blood specimen / Unknown 01/04/[address] [facility] Provider MD LAB BLOOD ORDERABLES Courtney l Result * Total Bilirubin, Plasma (01/04/2025) External Bilirubin Total 1.3 mg/dL Blood Venous blood specimen / Unknown 01/04/[address] [facility] Provider MD LAB BLOOD ORDERABLES Courtney l Result * Albumin, Plasma (01/04/2025) External Albumin 3.4 g/dL Blood Venous blood specimen / Unknown 01/04/2025 Result [facility] Provider LAB BLOOD ORDERABLES Courtney l Result from Last 3 Months Insurance [place]ICARE Care Teams Shell Sieve Operator Relationship Specialty Start Date End Date Isabella Saucedo APRN [address] [place] [address] [place] [address] Referring Physician 02/26/25 Jeannie Mcmillan, RN [facility] [address] [place], [place] [id number] Registered Nurse Transplant Surgery 03/08/25 Ebony Shoemaker [place] [phone] Registered Nurse Transplant Surgery 03/08/25
--- OUTSIDE RECORDS SUMMARY | 2025-03-20 12:24 | XMS_ITS | Encounter Summary ---
Author Organization Healthcare Address [address] [place] [address] Care Team Providers Care Tile And Marble Installer Name Role Phone Isabella Saucedo REFRIGERATION PERSON Unavailable [phone] Jeannie Mcmillan RN Unavailable [phone] Ebony Shoemaker Unavailable [phone] Encounter Details Date Type Department Care Team ([facility] st Contact Info) Description 01/04/2025 Orders Only External Location [address] [place] [address] Provider, External Social History Tobacco Use Types [...] Procedure Name Priority Date/Time Associated Diagnosis Comments US OUTSIDE IMAGES 01/04/2025 10:16 AM EDT documented in this encounter Results * US OUTSIDE IMAGES (01/04/2025 10:16 AM EDT) Anatomical Region Laterality Modality Ultrasound 01/04/2025 10:1 6 AM EDT us External Provider IMG US PROCEDURES Final Result documented in this encounter Visit Diagnoses Not on filedocumented in this encounter Care Teams Tile And Marble Installer Relationship Specialty Start Date End Date Isabella Saucedo APRN [address] [place] [address] Referring Physician 02/26/25 Jeannie Mcmillan, RN [facility] [address] [place] [address] Registered Nurse Transplant Surgery 03/08/25 [place] [address] Registered Nurse Transplant Surgery 03/08/25 documented as of this encounter
--- OUTSIDE RECORDS SUMMARY | 2025-03-20 12:24 | XMS_ITS | Encounter Summary ---
Author Organization [facility] Address [address] [place] [address] Care Team Providers Care Applications Trainer Name Role Phone Isabella Saucedo Phong RETAIL SALES CLERK Unavailable [phone] Jeannie Mcmillan RN Unavailable [phone] Ebony Shoemaker Unavailable [phone] Reason for Referral * Consultation (Routine) - Authorized Specialty Diagnoses / Procedures Referred By Contac t Referred To Contact Medical Oncology Diagnoses Elevated AFP Liver lesion Peter Do MD [address] [address] Phone: tel: fax: Referral ID Status Reason Start Date Expiration Date Visits Requested Visits Authorized [id number] Authorized Consult and Treat 03/16/2025 09/15/2026 1 1 Reason for Visit * Reason Comments Txp Surgical Follow-up Ernestina: Tumor Boar d Discussion 03/16/25 Encounter Details Date Type Department Care Team (Late st Contact Info) Description 03/16/2025 Telephone [facility] [address] [address] [place] [address] Txp Surgical Follow-up (Ernestina: Tumor Board Discussion 03/16/25) Social History Tobacco Use Types Packs/Day Years Used Date Smoking Tobacco: Never Assessed PHQ-2 Answer Date Recorded Patient Health Questionnaire-2 Score 0 03/14/2025 Sex and Gender Information Value Date Recorded Sex Assigned at Not on file Legal Sex Male 7:50 PM EDT Gender Identity Not on file Sexual Orientation Not on file documented as of this encounter Miscellaneous Notes * Telephone Encounter - Ebony Shoemaker - 03/16/2025 8:[address] Do reviewed Mr. Steward's case on tumor board this morning. Dr. 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 There are some sub-centimeter lung nodules seen but are not concerning at this time. The best plan of care for Mr. Steward would be to start systemic therapy with Atezo. Then get the area treated with Y90. Adjuvant therapy add Clarice to Atezo. We will refer Mr. Steward to Dr. Gonzáles for local treatment. Dr. Jeanne Barber will discuss Mr. Steward's case with Dr. Gonzáles so that we are all on the same page. I spoke to Rl and Ashley Bin to advise them of the plan of care. They understand. I let them know that they should get a call from Dr. Gonzáles's office with an appointment. I ask them to reach out if they don't hear from them within a week. They understood. I spoke with Erasto at Dr. Gonzáles's office. He ask that I complete the referral form and fax it back to him with most recent notes and labs. He let me know that he would call the patient directly to schedule. documented in this encounter Plan of Treatment Scheduled Referrals Name Type Priority Associated Diagnoses Order Schedule Ambulatory referral to Hematology Oncology/Medical Oncology Outpatient Referral Routine Elevated AFP Liver lesion 1 Occurrences starting 03/16/2025 until 09/17/2026 documented as of this encounter Visit Diagnoses Diagnosis Liver lesion- Primary Other specified disorders of liver Elevated AFP Other nonspecific findings on examination of blood documented in this encounter Additional Health Concerns Assessment Noted Time A fall risk assessment has been complete d for the patient 03/14/2025 9:07 AM EDT A Body Mass Index follow-up plan has been documented for the patient 03/16/2025 10:51 AM EDT documented as of this encounter Care Teams Applications Trainer Relationship Specialty Start Date End Date Isabella Saucedo APRN [address] [place] [address] Referring Physician 02/26/25 Jeannie Mcmillan, RN [facility] [address] [place], [place] [id number] Registered Nurse Transplant Surgery 03/08/25 Ebony Shoemaker [place] [phone] Registered Nurse Transplant Surgery 03/08/25 documented as of this encounter
--- OUTSIDE RECORDS SUMMARY | 2025-03-20 12:24 | XMS_ITS | Clinical Summary ---
Author Organization 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 Can only use paper tape Citalopram 12/16/2016 shakes Duloxetine 11/05/2014 Helped cause kidney stone Bupropion Hcl 12/16/2016 Nightmares Medications aspirin 81 mg Oral Tablet, Delayed Release (E.C.)Indications :Bradycardia,Tire d,ASCVD (arteriosclerotic cardiovascular disease),Essentia l hypertension,Gene ralized anxiety disorder,S/P CABG x 4,Gastroesophagea l reflux disease without esophagitis,Throm bocytopenia,Benig n prostatic hyperplasia with lower urinary tract symptoms, unspecified morphology,Fatty liver Take 81 mg by mouth daily. Active tamsulosin (FLOMAX) 0.4 mg Oral CapsuleIndication s:Kidney stones Take 1 Capsule by mouth daily. 90 Capsule 3 08/02/20 23 Active fUROsemide (LASIX) 20 mg Oral Tablet Take 20 mg by mouth every other day. 3 times week 01/07/20 24 Active nitroGLYCERIN (NITROSTAT) 0.4 mg SL Tablet, Sublingual Place 0.4 mg under the tongue every 5 minutes as needed. for chest pain. Use up to 3 doses. If no relief, go to ER. 01/10/20 24 Active coQ10, ubiquinol, 100 mg Oral Capsule 100 mg. 01/11/20 24 Active empagliflozin (JARDIANCE) 10 mg Oral TabletIndications :Chronic systolic congestive heart failure (HCC) Take 1 Tablet by mouth daily. 90 Tablet 3 06/20/20 24 Active sacubitriL-valsar cazares (ENTRESTO) 24-26 mg Oral Tablet Take 1 Tablet by mouth twice daily. 200 Tablet 2 08/04/20 24 Active oxyCODONE 10 mg Oral Tablet TAKE 1 TABLET BY ORAL ROUTE 4 TIMES A DAY FOR 28 DAYS M54.17 09/01/19 25 Active escitalopram oxalate (LEXAPRO) 20 mg Oral TabletIndications :Current moderate episode of major depressive disorder without prior episode (HCC) Take 1 Tablet by mouth daily. 90 Tablet 3 09/07/19 25 Active fluticasone-umecl idin-vilanter (TRELEGY ELLIPTA) 100-62.5-25 mcg Inhl Disk with DeviceIndications :Chronic bronchitis, unspecified chronic bronchitis type (HCC) Inhale 1 Puff into the lungs daily at 0900. 1 Each 5 09/07/19 25 Active albuterol (PROVENTIL HFA;VENTOLIN HFA) 90 mcg/actuation Inhl HFA Aerosol Inhaler INHALE 2 PUFFS BY MOUTH FOUR TIMES DAILY 25.5 g 09/28/19 25 Active nalOXone (NARCAN) 4 mg/actuation Nasl Ina, Non-Aerosol 0.1 mL by Nasal route daily as needed for Opioid Reversal. 2 Each 12/22/19 25 Active clotrimazole (LOTRIMIN) 1 % Top CreamIndications: Candidiasis of penis Apply topically 2 times daily. 24 g 12/28/19 25 Active bisoprolol (ZEBETA) 5 mg Oral Tablet Take 1 Tablet by mouth once daily. 30 Tablet 2 01/13/20 25 Active atorvastatin (LIPITOR) 20 mg Oral TabletIndications :S/P CABG x 4 Take 1 Tablet by mouth nightly. 90 Tablet 3 01/31/20 25 Active cyclobenzaprine (FLEXERIL) 5 mg Oral TabletIndications :Muscle spasm Take 1 Tablet by mouth every 8 hours as needed. 60 Tablet 2 02/13/20 25 Active clopidogreL (PLAVIX) 75 mg Oral Tablet Take 1 Tablet by mouth daily. 30 Tablet 02/22/20 25 Active clopidogreL (PLAVIX) 75 mg Oral Tablet Take 1 Tablet by mouth daily. 30 Tablet 01/20/20 25 025 Discontinued Active Problems Patient Care Coordination No te Formatting of this note migh t be different from the original. hillary stevens contracts signed 04/19/12 [facility]05/01/15 #[id number] [facility] 12/12/15 ,02/28/16 [id number],04/09/16 [id number], 11/27/16 [facility] 06/08/14,12/12/15, 10/02/16 Problem Noted Date Diagnosed Date Calculus of gallbladder with out cholecystitis without obstruction 01/05/2025 Chronic systolic congestive heart failure 2023 Assessment & Plan (12/21/2024 9:37 AM EDT): Orders: BASIC METABOLIC PANEL; Future Assessment & Plan (09/07/2024 10:49 AM EST): Orders: BASIC METABOLIC PANEL; Future Managed with cardiology. Stable on current medication regimen of beta-sam, statin, SGLT2, and Entresto. Euvolemic on exam today. Follow-up BMP to monitor electrolytes and kidney function Assessment & Plan (06/20/2024 1:53 PM EDT): Orders: empagliflozin (JARDIANCE) 10 mg Oral Tablet; Take 1 Tablet by mouth daily. BASIC METABOLIC PANEL; Future Continue on current optimize medical regiment of SGLT2 inhibitor, beta-sam, Entresto, spironolactone, and Lasix. Monitor for issues with hypotension. Will follow-up BMP to monitor electrolytes. -Heart failure is managed longitudinally and comanaged with cardiology. Requires prescription management and follow-up every 3 to 4 months for repeat labs and medication adjustments DOLLY (obstructive sleep apnea) 01/13/2024 Cardiomyopathy 12/14/2023 Encounter for colonoscopy due to history of colo doris polyp 12/01/2022 Overview (12/01/2022): Added automatically from request for surgery [id number] Chronic bronchitis 11/26/2022 Assessment & Plan (12/21/2024 9:37 AM EDT): Orders: BASIC METABOLIC PANEL; Future Assessment & Plan (09/07/2024 10:49 AM EST): Orders: eysmsroqkro-adpuflgjh-hzxkxloa (TRELEGY ELLIPTA) 100-62.5-25 mcg Inhl Disk with Device; Inhale 1 Puff into the lungs daily at 0900. COPD stable with Trelegy. Continue on current inhaler regimen for control of COPD. COPD is managed longitudinally requires follow-up every 6 months or sooner if flares/exacerbations occur Current moderate episode of major depressive disorder without prior episode 05/14/2022 Assessment & Plan (09/07/2024 10:49 AM EST): Orders: escitalopram oxalate (LEXAPRO) 20 mg Oral Tablet; Take 1 Tablet by mouth daily. Depression symptoms well-controlled on Lexapro continue current regimen. Aorto-iliac atherosclerosis 04/24/2022 Overview (04/24/2022): 04/21/22 CT Adb/Pel Cerebral atrophy 11/24/2021 Overview (11/24/2021): Noted on CT scan in October 2021. Reported as more advanced than expected for age. -No concern for dementia at this time -Plan for Mini-Mental status exam at follow-up visit with periodic reassessments. Assessment & Plan (09/07/2024 10:49 AM EST): Noted on imaging previously Fatty liver 11/19/2015 Weight loss, unintentional 11/19/2015 Thrombocytopenia 11/19/2015 GERD (gastroesophageal reflux disease) 6 Assessment & Plan (06/20/2024 1:53 PM EDT): GERD symptoms well-controlled off of PPI, discontinued medication Screening for colon cancer 10/14/2015 Bradycardia 03/09/2012 BPH (benign prostatic hyperplasia) 06/22/2011 ASCVD (arteriosclerotic cardiovascular disease) 05/22/2011 Osteoarthritis 03/23/2011 S/P CABG x 4 03/31/2004 Overview (09/18/2015): Dr Santos 2003 CABG Followed by Redo CABG 6 mo later at [facility] with 4// patent grafts 2010 Unspecified essential hypertension Assessment & Plan (09/07/2024 10:49 AM EST): Hypertension at goal today continue current regimen follow-up BMP to monitor electrolytes and renal function Assessment & Plan (06/20/2024 1:53 PM EDT): Orders: BASIC METABOLIC PANEL; Future Hypertension at goal today continue current regiment Generalized anxiety disorder Backache, unspecified Resolved Problems Problem Noted Date Diagnosed Date Resolved Date Hypotension 11/17/2021 11/24/2021 Cholelithiasis 10/01/2014 07/04/2015 S/P coronary angiogram 08/31/201407/04 Overview (08/31/2014): [facility] 10/15/2009 four out of four grafts, SVG to PDA, SVG to OM1, OM2 SVG to LAD atretic LMA graft preserved EF with apical hypokinesis Pre-syncope 08/13/2014 07/04/2015 Thrombocytopenia 08/13/2014 07/04/2015 Overview (08/13/2014): chronic Nephrolithiasis 08/05/2014 07/04/2015 Overview (08/13/2014): Abd CT (08/04/14) 6 to 7 mm stone left mid ureter at pelvic inlet level causing moderate obstructive change. Numerous bilateral nonobstructing intrarenal calculi. Incidental gallstone. Urology follow-up Colitis 03/09/2012 07/04/2015 Abdominal pain 03/09/2012 07/04/2015 Intractable vomiting 03/09/2012 015 Pain medication agreement 08/18/2011 Fluid retention in legs 03/23/201112/2014 Encounters Date Type Department Care Team Description 02/22/[address] [place] [phone] Cr Resendez MD Paperwork/forms 02/20/[address] [place] [phone] Cr Resendez MD Medication Refill 02/12/[address] [place], [place] [phone] Cr Resendez MD Medication Refill 01/29/[address] [place] [phone] Cr Resendez MD Medication Refill 01/25/[address] [place] [phone] Cr Resendez MD Other (insurance company called asking if office can watch for active patient verification form was rec'd. Please advise.) 01/18/[address] [place] [phone] Cr Resendez MD Medication Refill 01/11/[address] [place] [phone] Rodney Resendez MD Medication Refill 01/08/2025 Orders Only [address] [place] [phone] Lorri Crespo APRN Right inguinal hernia (Primary Dx) 01/02/[address] [place] [phone] Cr Resendez MD Orders (US needs to be fax[facility] to [facility] they said they don't have it. ); Follow Up (US order) 12/29/[address] [place] [phone] Cr Resendez MD Referral ( called asking for status of the referral being sent to [facility] - please advise.) 12/27/2024 9:45 AM EDT Office Visit [address] [place] [phone] Zak Lorri Henderson [employer] Right inguinal hernia (Primary Dx); Candidiasis of penis; Calculus of gallbladder without cholecystitis without obstruction 12/22/2024 Results Follow-Up [address] [place] [phone] Cr Resendez MD BASIC METABOLIC PANEL 12/21/2024 9:45 AM EDT Office Visit [address] [place] [phone] Cr Resendez MD Chronic bronchitis, unspecified chronic bronchitis type (HCC) (Primary Dx); Chronic systolic congestive heart failure (HCC); Central cord syndrome, subsequent encounter (HCC); Injury of left wrist, initial encounter 12/21/2024 Orders Only [address] [place] [phone] Cr Resendez MD 12/20/[address] [place] [phone] Cr Resendez MD Other (Katt needs pcp to call her before pt appt on 12/21) from Last 3 Months Immunizations Immunization Administration Dates Next Due Influenza High Dose 06/20/2024 Influenza Vaccine Quadrivalent 8,06/10/2016,05/16/2015,06/08 Influenza Vaccine Quadrivalent PF 05/08/2019 Influenza Vaccine, Unspecifi ed Formulation 07/03/2013,07/18/2012,06/22/2011,07/31 Influenza Virus Vaccine Quad rivalant, Flublok 06/11/2021,05/13/2020 Influenza, Split (Incl. Olaf fied Surface Antigen) 06/25/2020 Pneumococcal Conjugate Vacci ne 20 Valent 12/14/2023 Pneumococcal Polysaccharide 23 Valent 05/08/2019 ,07/18/2012 Quadrivalent Influenza High Dose 06/03/2023 Td (Adult), Absorbed 11/03/1996 Surgical History Surgery Date Site/Laterality Comments SPINAL CORD DECOMPRESSION 08/30/1998 CATARACT REMOVAL 08/30/2007 EYE SURGERY sandra cataract CARDIAC SURGERY cabg 2 times HERNIA REPAIR VASCULAR SURGERY spinal cord stimulator BACK SURGERY 08/30/1997 COLONOSCOPY 10/14/2015 N/A COLONOSCOPY snare polypectomy; Surgeon: Poppy Quintero MD; Location: [facility]; Service: Endoscopy UPPER GASTROINTESTINAL ENDOSCOPY 10/30/2015 N/A ESOPHAGOGASTRODUODENOSC OPY with biopsies; Surgeon: Poppy Quintero MD; Location: [facility]; Service: Endoscopy CARDIAC SURGERY 08/30/2018 - 08/29/2019 pace maker CORONARY ANGIOPLASTY WITH STENT PLACEMENT 01/04/2024 [facility] NECK SURGERY 12/06/2024 [facility] Medical History Medical History Date Comments COPD (chronic obstructive pu lmonary disease) ([facility]) Shortness of breath Blood circulation, collateral fe et and hands get cold since cabg CAD (coronary artery disease) Hypertension IA (myocardial infarction) ([facility]) 4 times Arthritis Headache(784.0) Neuromuscular disorder ([facility]) lennox k and left leg Other disorders of kidney and ureter trys to go often Depression Kidney stone Family History Medical History Relation Name Comments Heart Disease Brother Diabetes Father Heart Disease Father High Blood Pressure Father Crohn's Disease Mother Relation Name Status Comments Brother Father Mother Social History Tobacco Use Types Packs/Day Years Used Date Smoking Tobacco: Every Day Cigarettes 2 40.6 Started: 08/30/1973; Last attempted to quit: 08/29/2005 Smokeless Tobacco: Never Tobacco Cessation:Ready to Q uit: Not Asked; Counseling Given: Not Answered Comments:only smokes once in awhile Alcohol Use [...] on file Sexual Orientation Not on file Obstetrics History Last Filed Vital Signs Vital Sign Reading Time Taken Comments Blood Pressure 102/56 12/27/2024 9:46 AM EDT Pulse 69 12/27/2024 9:46 AM EDT Temperature 36.1 C (97 F) 12/27/2024 9:46 AM EDT Respiratory Rate 18 12/27/2024 9:46 AM EDT Oxygen Saturation 99% 12/27/2024 9:46 AM EDT Inhaled Oxygen Concentration - - Weight 59.4 kg (131 lb) 12/27/2024 9:46 AM EDT Height 172.7 cm (5' 8 ) 12/27/2024 9:46 AM EDT Body Mass Index 19.92 12/27/2024 9:46 AM EDT Plan of Treatment Health Maintenance Due Date Last Done Comments DTaP/TDaP/Td (1 - Tdap) 11/04/1996 11/03/1996 Cologuard 2003 FIT 2003 Sigmoidoscopy 2003 Virtual Colonography 2003 Zoster (1 of 2) 2008 RSV or 60+ (1 - Risk 60-74 years 1-dose series) 2018 COVID-19 Vaccine ( season) 2024 Wellness Exam Medicare 12/14/2024 12/14/2023, 2021 Influenza Vaccine (#1) 2025 , 06/03/2023, 06/11/2021, Additional history exists Low Dose Lung Cancer Screening 11/23/2025 11/23/2024, 09/08/2023, 03/08/2023, Additional history exists Colon Cancer Screening 01/12/2028 Colonoscopy 01/12/2028 01/13/2023, 09/30, 08/18/2011 Hepatitis C Screening Completed 11/24/2021 Pneumococcal Vaccine 50+ Completed 024, 05/08/2019, 07/18/2012 AAA Screening Completed 12/16/2023 Hepatitis B Vaccine Aged Out No longe r eligible based on patient's age to complete this topic Meningococcal B Vaccine Aged Out No l onger eligible based on patient's age to complete this topic Goals Goal Patient Goal Type Associated Problems Recent Progress Patient-Stated? Author Blood Pressure < 140/90 Blood Pressure 102/56(2024 9:46 AM EDT) No Jun Cruz MD Eat better, exercise, reach an ideal body weight General No Solo Lowry, RMA Stay Tobacco Free Lifestyle No Solo Lowry RMA LDL Direct < 100 Result Component No Abdiaziz Cheng MD Medical Devices Implanted Type Area Manager Gyn Device Identifier Shelf Expiration Date Model / Serial / Lot [employer] Vigilant ICD D233 / / [employer] Lead Lead 0675 / / [employer] [place] Lead Lead LPA 1200M / / Spinal Cord Stimulator Lead Description:pt has a retaine d spinal cord stimulator lead. generator was removed about 7-8 years ago per pt. - 09-24-2020 Procedures Procedure Name Priority Date/Time Associated Diagnosis Comments BASIC METABOLIC PANEL Routine 12/21/2024 9:50 AM EDT Chronic bronchitis, unspecified chronic bronchitis type (HCC) Chronic systolic congestive heart failure (HCC) CT LUNG CANCER SCREENING LOW DOSE Routine 11/23/2024 11:21 AM EDT Screening for malignant neoplasm of respiratory organ Personal history of tobacco use, presenting hazards to health US AAA SCREENING EXAM MEDICARE Routine 12/16/2023 9:55 AM EDT Screening for AAA (abdominal aortic aneurysm) COLONOSCOPY Routine 01/13/2023 1:07 PM EDT Encounter for colonoscopy due to history of colonic polyp HCV ANTIBODY SCREEN W/ REFLEX Routine 11/24/2021 10:38 AM EDT Medicare annual wellness visit, initial Need for hepatitis C screening test from Last 3 Months or Most Recently Relevant to Health Maintenance Results * (ABNORMAL) BASIC METABOLIC PANEL (12/21/2024 9:50 AM EDT) Sodium 139 136 - 145 mmol/L 12/21/2024 4:02 PM EDT [facility] Potassium 4.5 3.5 - 5.0 mmol/L 12/21/2024 4:02 PM EDT [facility] Chloride 104 98 - 107 mmol/L 12/21/2024 4:02 PM EDT [facility] Total CO2 27 22 - 29 mmol/L 12/21/2024 4:02 PM EDT [facility] Anion Gap 8 7 - 16 mmol/L 12/21/2024 4:02 PM EDT [facility] Calcium 8.8 8.8 - 10.4 mg/dL 12/21/2024 4:02 PM EDT [facility] Glucose Lvl 134(H) 70 - 99 mg/dL 12/21/2024 4:02 PM EDT [facility] BUN 9 8 - 23 mg/dL 12/21/2024 4:02 PM EDT [facility] Creatinine 0.79 0.67 - 1.30 mg/dL 12/21/2024 4:02 PM EDT [facility] eGFR (CKD-EPIcr 2020) 98 >=60 mL/min/1.7 3 m2 12/21/2024 4:02 PM EDT [facility] Comment:Estimated GFR was ca lculated using the CKD-EPIcr (2020) equation refit without race. The equation is recommended by the National Kidney Foundation - [place] [employer] of Nephrology Task Force. Blood VENOUS BLOOD / Unknown Venipuncture / Unknown 12/21/2024 9:50 AM EDT 12/21/2024 9:50 AM EDT us Cr Resendez MD CHEMISTRY ORDERABLES Final Res ult [facility] [address] [facility] , [place] [address] * CT LUNG CANCER SCREENING LOW DOSE (11/23/2024 11:21 AM EDT) Anatomical Region Laterality Modality Lung Computed Tomogra phy 11/23/2024 11:2 1 AM EDT Impressions 11/23/2024 12:54 PM EDT 1. Stable calcified biapical scarring. 2. New patchy groundglass opacity in the left lower lobe, likely infectious/inflammatory. RECOMMENDATION: Low Dose CT - 1 Yr A summary letter communicating these results will be mailed to the patient's address of record. - Note: Radiology results need to be interpreted within a comprehensive clinical context. If you have questions about the radiology report, please contact the office of the ordering clinician. [email or web address] Narrative 11/23/2024 12:[address] LUNG CANCER SCREENING LOW DOSE 11/23/2024 11:21 AM CLINICAL HISTORY: Asymptomatic patient meeting NCCN high risk criteria for lung screening. Z12.2-Encounter for screening for malignant neoplasm of respiratory [id number]-57-CM Z87.891-Personal history of nicotine qjujdvcroy-QRS-21-CM COMPARISON: CT chest 09/08/2023. PROCEDURE COMMENTS: Noncontrast, low-dose, multidetector CT chest per standard department protocol. Interactive 3-D postprocessing done by the reviewing physician on a SYNGO workstation, using Maximum intensity projections (MIPS) and SYNGO LUNG CAD for improved lesion detection. Salazar images archived to PACS. Automated exposure control for dose reduction was used. FINDINGS: Right greater than left biapical calcified scarring is stable. A 5 mm nodule in the medial right lower lobe is unchanged since 2016. No new or enlarging solid nodule is identified. There is new patchy groundglass opacity in the left lower lobe. No pleural effusion is present. The central airways are patent. A left AICD remains in place. There is no intrathoracic lymphadenopathy or acute osseous abnormality. Splenomegaly is unchanged. Coronary artery calcification: Severe. Prior CABG. FOLLOW-UP CODE: Lung-RADS Category 2: Benign Appearance or Behavior. Nodules with a very low likelihood of becoming active cancer due to size or lack of growth. Lung-RADS Modifier N/A: No Modifier Needed Procedure Note Robert Cruz MD - 11/23/2024 CT LUNG CANCER SCREENING LOW DOSE 11/23/2024 11:21 AM CLINICAL HISTORY: Asymptomatic patient meeting NCCN high risk criteria forlung screening. Z12.2-Encounter for screening for malignant neoplasm ofrespiratory mldfjc-BFM-27-CM Z87.891-Personal history of nicotine ualsljipmh-GLE-43-CM COMPARISON: CT chest 09/08/2023. PROCEDURE COMMENTS: Noncontrast, low-dose, multidetector CT chest perstandard department protocol. Interactive 3-D postprocessing done by thereviewing physician on a SYNGO workstation, using Maximum intensity projections(MIPS) and SYNGO LUNG CAD for improved lesion detection. Salazar images archived toPACS. Automated exposure control for dose reduction was used. FINDINGS: Right greater than left biapical calcified scarring is stable. A 5 mmnodule in the medial right lower lobe is unchanged since 2016. No new or enlargingsolid nodule is identified. There is new patchy groundglass opacity in the leftlower lobe. No pleural effusion is present. The central airways are patent. A left AICD remains in place. There is no intrathoracic lymphadenopathy oracute osseous abnormality. Splenomegaly is unchanged. Coronary artery calcification: Severe. Prior CABG. FOLLOW-UP CODE: Lung-RADS Category 2: Benign Appearance or Behavior.Nodules with a very low likelihood of becoming active cancer due to size or lackof growth. Lung-RADS Modifier N/A: No Modifier Needed IMPRESSION: 1. Stable calcified biapical scarring. 2. New patchy groundglass opacity in the left lower lobe, likely infectious/inflammatory. RECOMMENDATION: Low Dose CT - 1 Yr A summary letter communicating these results will be mailed to thepatient's address of record. - Note: Radiology results need to be interpreted within a comprehensiveclinical context. If you have questions about the radiology report, please contactthe office of the ordering clinician. [email or web address] Cr Resendez MD IM CT ORDERABLES Final Result * US AAA SCREENING EXAM MEDICARE (12/16/2023 9:55 AM EDT) Anatomical Region Laterality Modality Abdomen Ultrasound 12/16/2023 9:55 AM EDT Impressions 12/16/2023 10:40 AM EDT No abdominal aortic aneurysm. RECOMMENDATION: Normal caliber aorta at this time. If there are risk factors for the development of abdominal aortic aneurysm, consider follow-up sonography in 5 years. - Note: Radiology results need to be interpreted within a comprehensive clinical context. If you have questions about the radiology report, please contact the office of the ordering clinician. Narrative 12/16/2023 10:40 AM EDT US AAA SCREENING EXAM MEDICARE, 12/16/2023 9:55 AM CLINICAL HISTORY: Z13.6-Encounter for screening for cardiovascular dqzhkqanw-ZBP-50-CM. COMPARISON: CT abdomen pelvis from 09/07/2023 PROCEDURE COMMENTS: Routine sonographic evaluation of the abdominal aorta with retail field representative images sent to PACS along with high court justice notes. FINDINGS: The abdominal aorta is normal in caliber. Maximum transverse diameter is 2.4 cm. Atherosclerotic change in the aorta and iliac vessels noted unchanged from the recent CT Procedure Note Cr Ramachandran MD - 12/16/2023 AAA SCREENING EXAM MEDICARE, 12/16/2023 9:55 AM CLINICAL HISTORY: Z13.6-Encounter for screening for cardiovascular [id number]-AXZ-47-CM. COMPARISON: CT abdomen pelvis from 09/07/2023 PROCEDURE COMMENTS: Routine sonographic evaluation of the abdominal aortawith retail field representative images sent to PACS along with high court justice notes. FINDINGS: The abdominal aorta is normal in caliber. Maximum transverse diameter is 2.4 cm. Atherosclerotic change in the aortaand iliac vessels noted unchanged from the recent CT IMPRESSION: No abdominal aortic aneurysm. RECOMMENDATION: Normal caliber aorta at this time. If there are riskfactors for the development of abdominal aortic aneurysm, consider follow-upsonography in 5 years. - Note: Radiology results need to be interpreted within a comprehensiveclinical context. If you have questions about the radiology report, please contactthe office of the ordering clinician. Cr Resendez MD [facility] ORDERABLES Final Result * COLONOSCOPY (01/13/2023 1:07 PM EDT) Anatomical Region Laterality Modality Endoscopy Narrative 01/13/2023 1:07 PM EDT Table formatting from the original result was not included. Findings One sessile, adenomatous-appearing polyp measuring smaller than 5 mm in the transverse colon; completely removed en bloc by cold snare and retrieved specimen One sessile, adenomatous-appearing polyp measuring 5-9 mm in the sigmoid colon; completely removed en bloc by cold snare and retrieved specimen Recommendation Await pathology results Repeat colonoscopy in 5 years Personal history of colon polyps Indication Encounter for colonoscopy due to history of colonic polyp Staff Staff Role Casper Pena MD Performing Provider Raymond Harris RN Radiagraph Operator Gurvinder Garner MD Anesthesiologist Mary Jo Romero RN Endoscopy Nurse Medications See Anesthesia Record. Preprocedure A history and physical has been performed, and patient medication allergies have been reviewed. The patient's tolerance of previous anesthesia has been reviewed. The risks and benefits of the procedure and the sedation options and risks were discussed with the patient. All questions were answered and informed consent obtained. ASA 3 - Patient with severe systemic disease Details of the Procedure The patient underwent monitored anesthesia care, which was administered by an anesthesia professional. The patient's blood pressure, heart rate, level of consciousness, oxygen, respirations, ECG and ETCO2 were monitored throughout the procedure. A digital rectal exam was performed. The scope was introduced through the anus and advanced to the cecum. Retroflexion was performed in the rectum. Bowel prep was adequate. The patient's estimated blood loss was minimal (<5 mL). The procedure was not difficult. The patient tolerated the procedure well. There were no apparent adverse events. Patient provided education and educated on specific discharge instructions. Patient educated on medications given during the procedure and new medications for discharge. Patient verbalizes understanding of discharge education. Patient stable and awaiting transport for discharge. Events Procedure Events Event Event Time ENDO SCOPE IN TIME 01/13/2023 12:54 PM ENDO CECUM REACHED 01/13/2023 12:56 PM ENDO SCOPE WITHDRAW BEGIN 01/13/2023 12:56 PM ENDO SCOPE OUT TIME 01/13/2023 1:04 PM Specimens ID Type Source Tests Collected by Time 1 : transverse colon polyp via cold snare Tissue Large Intestine, Transverse Colon PATHOLOGY TISSUE REQUEST Casper Pena MD 01/13/2023 [id number] 2 : sigmoid colon polyp via cold snare Tissue Large Intestine, Sigmoid Colon PATHOLOGY TISSUE REQUEST Casper Pena MD 01/13/2023 1303 Casper Pena MD ENDOSCOPY PROCEDURE ORDERABL ES Final Result * HEPATITIS C ANTIBODY - SCREENING (11/24/2021 10:38 AM EDT) Hep C Ab Non-Reactiv e Non-Reacti ve 11/24/2021 3:20 PM EDT [facility] Runa Blood VENOUS BLOOD / Unknown Venipuncture / Unknown 11/24/2021 10:38 AM EDT 11/24/2021 10:43 AM EDT us Cr Resendez MD HEMATOLOGY ORDERABLES Final Re sult PREFERRED [employer], [facility] [address] [facility], [place] [address] from Last 3 Months or Most Recently Relevant to Health Maintenance Insurance [place] [address] [place] [address] [place] [address] MED[place] Care Teams Dock Worker Relationship Specialty Start Date End Date Macario Pryor MD [address] [place] [address] [place] [address] PCP - Hematology/Oncology Internal Medicine-Medical Oncology 11/12/15 Cr Resendez MD [address] [place] [address] [place] [address] PCP - General Family Medicine 11/24/21 Jan Sin MD [address] [place] [address] [place] [address] Internal Medicine-Cardiovascul ar Disease 08/28/14
--- OUTSIDE RECORDS SUMMARY | 2025-03-20 12:24 | XMS_ITS | Encounter Summary ---
Author Organization Healthcare Address [address] [place] [address] Care Team Providers Care Truck Driver Teamster Name Role Phone Isabella Saucedo ROUGE PRESSER Unavailable [phone] Jeannie Mcmillan RN Unavailable [phone] Ebony Shoemaker Unavailable [phone] Encounter Details Date Type Department Care Team ([facility] st Contact Info) Description 11/15/2024 Orders Only External Location [address] [place] [address] Provider, External Social History Tobacco Use Types [...] Name Priority Date/Time Associated Diagnosis Comments XR OUTSIDE IMAGES 11/15/2024 1:10 PM EDT documented in this encounter Results * XR OUTSIDE IMAGES (11/15/2024 1:10 PM EDT) Anatomical Region Laterality Modality Radiographic Winnie ging 11/15/2024 1:10 PM EDT us External Provider IMG XR PROCEDURES Final Result documented in this encounter Visit Diagnoses Not on filedocumented in this encounter Care Teams Truck Driver Teamster Relationship Specialty Start Date End Date Isabella Saucedo APRN [address] [place] [address] [place] [address] Referring Physician 02/26/25 Jeannie Mcmillan, RN [facility] [address] [place] [address] Registered Nurse Transplant Surgery 03/08/25 [place] [address] Registered Nurse Transplant Surgery 03/08/25 documented as of this encounter
--- OUTSIDE RECORDS SUMMARY | 2025-03-20 12:24 | XMS_ITS | Encounter Summary ---
Author Organization [facility] Address [address] [place] [address] Care Team Providers Care Professional Athletes Coach Name Role Phone Isabella Saucedo BLACKSMITH SUPERVISOR Unavailable [phone] Jeannie Mcmillan RN Unavailable [phone] Ebony Shoemaker Unavailable [phone] Reason for Referral * Consultation (Routine) - Authorized Specialty Diagnoses / Procedures Referred By Vicente alaniz Referred To Contact Hematology and Oncology Diagnoses Elevated alpha fetoprotein Liver tumor Isabella Saucedo APRN [address] [place] [address] Phone: tel: fax: Referral ID Status Reason Start Date Expiration Date Visits Requested Visits Authorized [id number] Authorized Specialty Services Required 02/20/2025 08/22/2026 1 1 Encounter Details Date Type Department Care Team ([facility] st Contact Info) Description 02/19/2025 Community [facility] [address] [place] [address] Isabella Saucedo APRN [address] [place] [address] [place] [address] Elevated alpha fetoprotein (Primary Dx); Liver tumor Social History Tobacco Use Types Packs/Day Years Used Date Smoking Tobacco: Never Assessed Sex and Gender Information Value Date Recorded Sex Assigned at Not on file Legal Sex Male 7:50 PM EDT Gender Identity Not on file Sexual Orientation Not on file documented as of this encounter Plan of Treatment Scheduled Referrals Name Type Priority Associated Diagnoses Order Schedule Ambulatory referral to Molecular Tumor Board Outpatient Referral Routine Elevated alpha fetoprotein Liver tumor 1 Occurrences starting 02/20/2025 until 08/24/2026 documented as of this encounter Visit Diagnoses Diagnosis Elevated alpha fetoprotein- Primary Other nonspecific findings on examination of blood Liver tumor Neoplasm of unspecified nature of digestive system documented in this encounter Care Teams Professional Athletes Coach Relationship Specialty Start Date End Date Isabella Saucedo APRN Replaced by [facility] [address] [place] [address] Referring Physician 02/26/25 Jeannie Mcmillan, RN [facility] [address] [place] [address] Registered Nurse Transplant Surgery 03/08/25 [place] [address] Registered Nurse Transplant Surgery 03/08/25 documented as of this encounter
--- OUTSIDE RECORDS SUMMARY | 2025-03-20 12:24 | XMS_ITS | Encounter Summary ---
Author Organization Healthcare Address [address] [place] [address] Care Team Providers Care Beam House Inspector Name Role Phone Isabella Saucedo COUNT TEAM CLERK Unavailable [phone] Jeannie Mcmillan RN Unavailable [phone] Ebony Shoemaker Unavailable [phone] Encounter Details Date Type Department Care Team (Late st Contact Info) Description 05/26/2022 Orders Only External Location [address] [place] [address] Provider, External Social History Tobacco Use Types [...] Name Priority Date/Time Associated Diagnosis Comments US ABDOMEN OUTSIDE IMAGES 05/26/2022 10:40 AM EDT documented in this encounter Results * US ABDOMEN OUTSIDE IMAGES (05/26/2022 10:40 AM EDT) Anatomical Region Laterality Modality Ultrasound 05/26/2022 10:4 0 AM EDT us External Provider IMG US PROCEDURES Final Result documented in this encounter Visit Diagnoses Not on filedocumented in this encounter Care Teams Beam House Inspector Relationship Specialty Start Date End Date Isabella Saucedo APRN [address] [place] [address] Referring Physician 02/26/25 Jeannie Mcmillan, RN [facility] [address] [place] [address] Registered Nurse Transplant Surgery 03/08/25 [place] [address] Registered Nurse Transplant Surgery 03/08/25 documented as of this encounter
--- OUTSIDE RECORDS SUMMARY | 2025-03-20 12:24 | XMS_ITS | Encounter Summary ---
Author Organization [facility] Address [address] [place] [address] Care Team Providers Care Bobbin Dumper Name Role Phone Isabella Saucedo UNDERWRITER SOLICITATION DIRECTOR Unavailable [phone] Jeannie Mcmillan RN Unavailable [phone] Ebony Shoemaker Unavailable [phone] Reason for Referral * Imaging (Routine) - Closed Specialty Diagnoses / Procedures Referred By Contac t Referred To Contact Radiology Diagnoses Elevated AFP Liver lesion Hepatic cirrhosis, unspecified hepatic cirrhosis type, unspecified whether ascites present (CMS/HCC) Procedures CT CHEST WO IV CONTRAST Peter Do MD [address] [facility] [address] [place] [id number] Phone: tel: fax: Referral ID Status Reason Start Date Expiration Date Visits Re quested Visits Authorized [id number] Closed 03/14/2025 09/13/2026 1 1 Encounter Details Date Type Department Care Team (Late st Contact Info) Description 03/14/2025 Orders Only [facility] [address] [facility] [address] [place] [address] [place] [address] Liver lesion (Primary Dx); Elevated AFP; Hepatic [...] documented as of this encounter Results * CT CHEST WO [...] documented in this encounter Visit Diagnoses Diagnosis Liver lesion- Primary Other specified disorders of liver Elevated AFP Other nonspecific findings on examination of blood Hepatic cirrhosis, unspecified hepatic cirrhosis type, unspecified whether ascites present (CMS/HCC) Elevated AFP Other nonspecific findings on examination [...] documented as of this encounter Care Teams Bobbin Dumper Relationship Specialty Start Date End Date Isabella Saucedo APRN [address] [place] [address] Referring Physician 02/26/25 Jeannie Mcmillan, RN [facility] [address] [place] [address] Registered Nurse Transplant Surgery 03/08/25 Ebony Shoemaker [place] [id number] Registered Nurse Transplant Surgery 03/08/25 documented as of this encounter
--- OUTSIDE RECORDS SUMMARY | 2025-03-20 12:24 | XMS_ITS | Clinical Summary ---
Author Organization [facility] Address [facility] [place] [address] Care Team Providers Care Agronomy Technician Name Role Phone Cr Resendez MD Primary Care Provider [phone] Source Comments This information has been disclosed to you from confidential records protectedfrom disclosure by state law. You shall make no further disclosure of thisinformation without the specific, written, and informed release of theindividual to whom it pertains, or as otherwise permitted by law. A generalauthorization for the release of medical or other information is not sufficientfor the purposes of therelease of HIV test results or diagnoses. [id number] Allergies Active Allergy Reactions Criticality Noted Date Comments Adhesive Tape-Silicones 03/08/2012 Tape pulls my skin off. Can only use paper tape Medications clopidogreL (PLAVIX) 75 mg tablet Take 1 tablet (75 mg total) by mouth daily. 5 Active atorvastatin (LIPITOR) 20 MG tablet Take 1 tablet (20 mg total) by mouth daily. Active bisoprolol (ZEBETA) 5 MG tablet Take 1 tablet (5 mg total) by mouth daily. Active empagliflozin (JARDIANCE) 10 mg tablet Take 1 tablet (10 mg total) by mouth daily. Active escitalopram oxalate (LEXAPRO) 20 MG tablet Take 1 tablet (20 mg total) by mouth daily. Active fluticasone-ume clidin-vilanter (TRELEGY ELLIPTA) 100-62.5-25 mcg DsDv Inhale 1 puff into the lungs 2 times a day. Active oxyCODONE (ROXICODONE) 10 mg Tab Take 1 tablet (10 mg total) by mouth 4 times a day as needed for Pain. Active sacubitriL-vals pallavi (ENTRESTO) 24-26 mg Tab Take 1 tablet by mouth 2 times a day. Active aspirin 81 MG EC tablet Take 1 tablet (81 mg total) by mouth daily. Active methocarbamoL (ROBAXIN) 500 MG tablet Take 1 tablet (500 mg total) by mouth every 6 hours as needed (muscle spasms). 28 tablet 12/14/2024 2:59 PM EDT Active polyethylene glycol (GLYCOLAX) 17 gram/dose powder Dissolve 1 capful (17g) with 8oz of liquid of choice and drink twice daily. Continue while on narcotics to decrease risk of constipation. Hold for loose stools. 238 g 12/14/2024 2:59 PM EDT Active senna-docusate (SENNA-S) 8.6-50 mg per tablet Take 1 tablet by mouth 2 times a day. Continue while on narcotics to decrease risk of constipation. Hold for loose stools. 30 tablet 12/14/2024 2:59 PM EDT Active naloxone (NARCAN) 4 mg/actuation [place] Apply 1 spray in one nostril if needed. Call 911. May repeat dose in other nostril if no response in 3 minutes. 2 each 1 Active Active Problems Problem Noted Date Diagnosed Date Backache 12/20/2024 Essential hypertension 12/20/2024 Generalized anxiety disorder 12/20/2024 Chronic systolic congestive heart failure 2023 DOLLY (obstructive sleep apnea) 01/13/2024 Cardiomyopathy 12/14/2023 Chronic bronchitis 11/26/2022 Current moderate episode of major depressive disorder without prior episode 05/14/2022 Aorto-iliac atherosclerosis 04/24/2022 Overview (12/20/2024): 04/21/22 CT Adb/Pel Cerebral atrophy 11/24/2021 Overview (12/20/2024): Noted on CT scan in October 2021. Reported as more advanced than expected for age. -No concern for dementia at this time -Plan for Mini-Mental status exam at follow-up visit with periodic reassessments. 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 with grafts 2010 Encounters Date Type Department Care Team Description 01/24/2025 Chart Note [facility] Interventional Pul[facility] at [facility] [address] [place] [address] Elizabeth Tabor, RN Chart Note: Incidental Findings 01/23/2025 1:00 PM EDT Office Visit [facility] Orthopaedics [facility] [address] [place] [address] Nayan Mayo MD Central cord syndrome, initial encounter ([facility]) (Primary Dx); Central cord syndrome, subsequent encounter ([facility] Cervical spondylosis with myelopathy 01/23/2025 9:55 AM EDT - 01/23/2025 11:59 PM EDT Hospital Encounter [facility] [address] [place] [address] Nayan Mayo MD Central cord syndrome, subsequent encounter ([facility]) Discharge Disposition: Home or Self Care WITHOUT Home Care Services 12/26/2024 11:00 AM EDT Office Visit [facility] Orthopaedics [place] [address] [place] [address] Nayan Mayo MD Central cord syndrome, subsequent encounter ([facility]) (Primary Dx); Central cord syndrome, initial encounter ([facility]); Cervical spondylosis with myelopathy 12/26/2024 10:05 AM EDT - 12/26/2024 11:59 PM EDT Hospital Encounter [facility] [address] [place] [address] Nayan Mayo MD Central cord syndrome, subsequent encounter ([facility]) Discharge Disposition: Home or Self Care WITHOUT Home Care Services from Last 3 Months Social History Tobacco Use Types Packs/Day Years Used Date Smoking Tobacco: Some Days Cigarettes Passive Smoke Exposure: Current Tobacco Cessation:Ready to Q uit: Not Asked; Counseling Given: Not Answered Utilities Answer Date Recorded In the past 12 months has th e [employer], [employer], oil, or water [employer] threatened to shut off services in your [...] time in the past 12 m [facility], were you homeless or living in a correction (including now)? Patient declined 12/07/2024 Sex and Gender Information Value Date Recorded Sex Assigned at Not on file Legal Sex Male 4:51 PM EST Gender Identity Not on file Sexual Orientation Not on file Last Filed Vital Signs Vital Sign Reading Time Taken Comments Blood Pressure 133/109 12/18/2024 11:03 AM EDT Pulse 86 12/14/2024 12:22 PM EDT Temperature 36.7 C (98.1 F) 12/14/2024 12:22 PM EDT Respiratory Rate 16 12/14/2024 12:22 PM EDT Oxygen Saturation 98% 12/14/2024 12:22 PM EDT Inhaled Oxygen Concentration 98% 12/14/2024 1 2:22 PM EDT Weight 65.8 kg (145 lb) 01/23/2025 1:04 PM EDT Height 172.7 cm (5' 8 ) 01/23/2025 1:04 PM EDT Body Mass Index 22.05 01/23/2025 1:04 PM EDT Plan of Treatment Health Maintenance Due Date Last Done Comments Abnormal Colonoscopy Follow Up 1958 Depression Monitoring (PHQ-9) 1958 Hepatitis C Screening (MyChart) 1958 Tobacco Cessation Readiness 1958 Immunization: DTaP/Tdap/Td ( 1 - Tdap) 11/04/1996 11/03/1996 Cologuard (FIT-DNA) 2003 Colonoscopy 2003 Colorectal Cancer Screening (MyChart) 2003 Stool Testing (gFOBT) 2003 Immunization: Zoster (1 of 2) 2008 Lung Cancer Screening 2008 Immunization: RSV (Adult) (1 - Risk 60-74 years 1-dose series) 2018 Abdominal Aortic Aneurysm (A AA) Screening 2023 Immunization: COVID-19 ( - season) 2024 Immunization: Influenza (MyC kim) (#1) 2025 06/20/2024, 06/03/2023, 06/11/2021, Additional history exists Alcohol Misuse Screening 12/06/2025 12/06/2024 Renal Function/GFR 12/14/2025 12/14/2024, 0 12/13/2024, 12/12/2024, Additional history exists Immunization: Pneumococcal Completed 12/13, 05/08/2019, 07/18/2012 Medical Devices Implanted Type Area Glazier Structural Glass Device Identifier Shelf Expiration Date Model / Serial / Lot Cage Spnl 6mm 8d Sm Eit Crv Intrbd Fs Strl Lf - [id number] Implanted:Qty: 1 on 12/11/2024 by Nayan Mayo MD at [facility] Main Cage N/A: Spine Cervical DEPUY SPINE 02/26/2026 [id number] / / Graft Bn Bn Fbr 1cc Algrf Frzdr Pliafx Prm - [id number] Implanted:Qty: 1 on 12/11/2024 by Nayan Mayo MD at [facility] Main Graft N/A: Spine Cervical LIFE NET 02/21/2028 BL-1800-0 1 / [id number] / Icd ICD [employer] D233 / / Description:St Chava RA: [id number] 200M RV: [id number] NOT MR CONDITIONAL OF 12/07/2024 - 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 SCS Plate Bone [place] Titanium 14 Mm Prebent L12 Mm X W16 Mm X H2.5 Mm Spine Cervical Anterior 1 Level Nonsterile - [id number] Implanted:Qty: 1 on 12/11/2024 by Nayan Mayo MD at [facility] Main Plate N/A: Spine Cervical DEPUY SPINE 1868-01-0 12 / / Screw Bone [place] Titanium L16 Mm Od4 Mm Spine Cervical Anterior Variable Self Drill Nonsterile - [id number] Implanted:Qty: 4 on 12/11/2024 by Nayan Mayo MD at [facility] Main Screw N/A: Spine Cervical DEPUY SPINE 1868-50-0 16 / / Procedures Procedure Name Priority Date/Time Associated Diagnosis Comments XR CERVICAL SPINE 2 OR 3-VIEWS Routine 01/23/2025 12:49 PM EDT Central cord syndrome, subsequent encounter (CMS-HCC) XR CERVICAL SPINE 2 OR 3-VIEWS Routine 12/26/2024 10:43 AM EDT Central cord syndrome, subsequent encounter (CMS-HCC) RENAL FUNCTION PANEL W/EGFR Routine 12/14/2024 7:00 AM EDT from Last 3 Months or Most Recently Relevant to Health Maintenance Results * X-ray Cervical Spine 2 or 3-views (01/23/2025 12:49 PM EDT) Only the most recent of2 resultswithin the time period is included. Anatomical Region Laterality Modality C-spine, T-spine, Neck [...] 3-VIEWS INDICATION: Central cord syndrome, subsequent encounter ([facility]) TECHNIQUE: XR CERVICAL SPINE 2 OR 3-VIEWS AP and lateral radiographs were performed. COMPARISON: December 26, 2024 Procedure Note Jan Gordon MD - 01/23/2025 EXAM: XR CERVICAL SPINE 2 OR 3-VIEWS INDICATION: Central cord syndrome, subsequent encounter ([facility]) TECHNIQUE: XR CERVICAL SPINE 2 OR 3-VIEWS AP and lateral radiographs wereperformed. COMPARISON: December 26, 2024 FINDINGS/IMPRESSION: 1. ACDF at C3-C4. No hardware complication or change in alignment. 2. Multilevel degenerative disc disease of the mid to lower cervicalspine with no acute findings. Report Verified by: Jan Gordon MD at 01/23/2025 4:32 PM EDT us Nayan Mayo MD IM DIAGNOSTIC IMAGING ORDERABLE S Final Result * (ABNORMAL) Renal Function Panel w/EGFR (12/14/2024 7:00 AM EDT) Sodium 136 133 - 146 mmol/L 12/14/2024 7:50 AM EDT [facility] Potassium 3.9 3.5 - 5.3 mmol/L 12/14/2024 7:50 AM EDT [facility] Chloride 102 98 - 110 mmol/L 12/14/2024 7:50 AM EDT [facility] CO2 27 21 - 33 mmol/L 12/14/2024 7:50 AM EDT [facility] Anion Gap 7 3 - 16 mmol/L 12/14/2024 7:50 AM EDT [facility] BUN 19 7 - 25 mg/dL 12/14/2024 7:50 AM EDT [facility] Creatinine 0.66 0.60 - 1.30 mg/dL 12/14/2024 7:50 AM EDT [facility] Glucose 126(H) 70 - 100 mg/dL 12/14/2024 7:50 AM EDT [facility] Calcium 8.3(L) 8.6 - 10.3 mg/dL 12/14/2024 7:50 AM EDT [facility] Phosphorus 2.7 2.1 - 4.5 mg/dL 12/14/2024 7:50 AM EDT [facility] Albumin 2.7(L) 3.5 - 5.7 g/dL 12/14/2024 7:50 AM EDT [facility] Osmolality, Calculated 286 278 - 305 mOsm/kg 12/14/2024 7:50 AM EDT [facility] EGFR >90 12/14/2024 7:50 AM [facility] Comment: As of 2021, the estimated GFR is calculated using the 2020 Chronic Kidney Disease Epidemiology Collaboration (CKD-EPI) equation. In line with the NKF-ASN Task Force Recommendations, this equation does not include a coefficient for race. A single eGFR value is calculated for each patient. The reference interval is >60 mL/min/1.73m2. eGFR values greater than 90 will be reported as >90mL/min/1.73m2. Reference: John C, Reynold M, En DC, Jimbo ND, Alex CA, Cliff LA, et al. A Unifying Approach for GFR Estimation: Recommendations of the NKF-ASN Task Force on Reassessing the inclusion of Race in Diagnosing Kidney Disease. Am J Kidney Dis. 2020. GFR is estimated using creatinine, age, and sex. Patient's values should be interpreted as a trend. Below 90 mL/min/1.73m2, the patient may have renal disease. For additional information: www.kidney.org Plasma 12/14/2024 7:00 AM EDT 12/14/2024 7:16 AM EDT Kavitha Landry MD LAB BLOOD ORDERABLES Fi nal Result [facility] [address] [place] [address], [facility] from Last 3 Months or Most Recently Relevant to Health Maintenance Insurance MEDICARE A AND B [place] Member Subscriber Plan / Payer (Ef fective 2024-Present) Name:Rl Steward Relation to Subscriber:Self Name:lR Steward Payer ID:[id number] Group ID:Not on file Type:Medicaid Address: [address] MEDICAID DENTAL Advance Directives For more information, please contact: [phone] * Full Code (Latest Code Status on File) Date Activated Date Inactivated Comments 12/07/2024 12:02 AM 12/14/2024 8:22 PM Care Teams Agronomy Technician Relationship Specialty Start Date End Date Cr Resendez MD [address] [place] [address] [place] [address] PCP - General Family Medicine 12/07/24
--- OUTSIDE RECORDS SUMMARY | 2025-03-20 12:24 | XMS_ITS | Encounter Summary ---
Author Organization Healthcare Address [address] [place] [address] Care Team Providers Care Refractory Mixer Name Role Phone Isabella Saucedo FORMULA CLERK Unavailable [phone] Jeannie Mcmillan RN Unavailable [phone] Ebony Shoemaker Unavailable [phone] Encounter Details Date Type Department Care Team (Late st Contact Info) Description 01/12/2025 Orders Only External Location [address] [place] [address] Provider, External Social History Tobacco Use Types [...] Name Priority Date/Time Associated Diagnosis Comments CT MSK OUTSIDE IMAGES 01/12/2025 8:45 AM EDT documented in this encounter Results * CT MSK OUTSIDE IMAGES (01/12/2025 8:45 AM EDT) Anatomical Region Laterality Modality Computed Tomogra phy 01/12/2025 8:45 AM EDT us External Provider IMG CT PROCEDURES Final Result documented in this encounter Visit Diagnoses Not on filedocumented in this encounter Care Teams Refractory Mixer Relationship Specialty Start Date End Date Isabella Saucedo APRN [address] [place] [address] [place] [address] Referring Physician 02/26/25 Jeannie Mcmillan, RN [facility] ADMINISTRATION [address] [place] [address] Registered Nurse Transplant Surgery 03/08/25 Ebony Shoemaker [place] [id number] Registered Nurse Transplant Surgery 03/08/25 documented as of this encounter
--- OUTSIDE RECORDS SUMMARY | 2025-03-20 12:24 | XMS_ITS | Encounter Summary ---
Author Organization Healthcare Address [address] [place] [address] Care Team Providers Care Meteorology Teacher Name Role Phone Isabella Saucedo CRUDE OIL DRIVER Unavailable [phone] Jeannie Mcmillan RN Unavailable [phone] Ebony Shoemaker Unavailable [phone] Encounter Details Date Type Department Care Team (Late st Contact Info) Description 01/12/2025 Orders Only External Location [address] [place] [address] Provider, External Social History Tobacco Use Types [...] Name Priority Date/Time Associated Diagnosis Comments CT OUTSIDE IMAGES 01/12/2025 8:45 AM EDT documented in this encounter Results * CT OUTSIDE IMAGES (01/12/2025 8:45 AM EDT) Anatomical Region Laterality Modality Computed Tomogra phy 01/12/2025 8:45 AM EDT us External Provider IMG CT PROCEDURES Final Result documented in this encounter Visit Diagnoses Not on filedocumented in this encounter Care Teams Meteorology Teacher Relationship Specialty Start Date End Date Isabella Saucedo APRN [address] [place] [address] [place] [address] Referring Physician 02/26/25 Jeannie Mcmillan, RN [facility]IST[facility] [address] [place] [address] Registered Nurse Transplant Surgery 03/08/25 [place] [address] Registered Nurse Transplant Surgery 03/08/25 documented as of this encounter
--- OUTSIDE RECORDS SUMMARY | 2025-03-20 12:24 | XMS_ITS | Encounter Summary ---
Author Organization Healthcare Address [address] [place] [address] Care Team Providers Care Dairy And Food Laboratory Assistant Name Role Phone Isabella Saucedo ROAD GANG SUPERVISOR Unavailable [phone] Jeannie Mcmillan RN Unavailable [phone] Ebony Shoemaker Unavailable [phone] Encounter Details Date Type Department Care Team ([facility] st Contact Info) Description 12/06/2024 Orders Only External Location [address] [place] [address] Provider, External Social History Tobacco Use Types [...] Name Priority Date/Time Associated Diagnosis Comments XR MSK OUTSIDE IMAGES 12/06/2024 3:42 PM EDT documented in this encounter Results * XR MSK OUTSIDE IMAGES (12/06/2024 3:42 PM EDT) Anatomical Region Laterality Modality Radiographic Winnie ging 12/06/2024 3:42 PM EDT External Provider IMG XR PROCEDURES Final Result documented in this encounter Visit Diagnoses Not on filedocumented in this encounter Care Teams Dairy And Food Laboratory Assistant Relationship Specialty Start Date End Date Isabella Saucedo APRN [address] [place] [address] [place] [address] Referring Physician 02/26/25 Jeannie Mcmillan, RN [facility]PL[facility] ADMINISTRATION [address] [place] [address] Registered Nurse Transplant Surgery 03/08/25 [place] [address] Registered Nurse Transplant Surgery 03/08/25 documented as of this encounter
--- OUTSIDE RECORDS SUMMARY | 2025-03-20 12:24 | XMS_ITS | Encounter Summary ---
Author Organization Healthcare Address [address] [place] [address] Care Team Providers Care Rubber Ball Finisher Name Role Phone Isabella Saucedo MANAGER RISK MANAGEMENT Unavailable [phone] Jeannie Mcmillan RN Unavailable [phone] Ebony Shoemaker Unavailable [phone] Encounter Details Date Type Department Care Team ([facility] Contact Info) Description 01/14/2024 Orders Only External Location [address] [place] [address] Provider, External Social History Tobacco Use Types [...] Date/Time Associated Diagnosis Comments US OUTSIDE IMAGES 01/14/2024 2:55 PM EDT documented in this encounter Results * US OUTSIDE IMAGES (01/14/2024 2:55 PM EDT) Anatomical Region Laterality Modality Ultrasound 01/14/2024 2:55 PM EDT us External Provider IMG US PROCEDURES Final Result documented in this encounter Visit Diagnoses Not on filedocumented in this encounter Care Teams Rubber Ball Finisher Relationship Specialty Start Date End Date Isabella Saucedo APRN [address] [place] [address] [place] [address] Referring Physician 02/26/25 Jeannie Mcmillan, RN [facility]PL[facility] ADMINISTRATION [address] [place] [address] Registered Nurse Transplant Surgery 03/08/25 [place] [address] Registered Nurse Transplant Surgery 03/08/25 documented as of this encounter
--- OUTSIDE RECORDS SUMMARY | 2025-03-20 12:24 | XMS_ITS ---
Author Organization [facility] Address [address] [place] [address] Care Team Providers Care Logistics Operations Manager Name Role Phone Isabella Saucedo SPRAY CEMENTER Unavailable [phone] Jeannie Mcmillan RN Unavailable [phone] Ebony Shoemaker Unavailable [phone] Transplant Episode Liver Candidate [facility] ([place], [place]) - BARBARA Referred on 02/26/2025 Marked as Ineligible on 03/06/2025 Reason: Transfered to Another Program Liver CoordinatorAngelita Reeves Fax: N/A Email: N/A Scores Score Value Updated Expires Exceptions/Brighton sons CPRA Not available MELD (Calc) 6 03/14/2025 Care Team Name Role Phone Fax Email Angelita Reeves Liver Coordinator [phone] N/A N/A Gloria Chau LCSW Security Sales Manager [phone] N/A N/A Isabella Saucedo APRN Referring Physician [phone] N/A Haroon Cannon MD Surgeon [phone] N/A Events Pre-Transplant Referred: 02/26/2025 Appointments (02/18/2025 - 04/20/2025) When With Visit Type Description 03/14/2025 Transplant - [facility] El evated AFP; Liver lesion; Hepatic cirrhosis, unspecified hepatic cirrhosis type, unspecified whether ascites present (CMS/HCC); Other abnormal tumor markers 03/14/2025 Transplant - Dante Do Initial Cl inic Evaluation HCC (hepatocellular carcinoma) (Primary Dx)
--- OUTSIDE RECORDS SUMMARY | 2025-03-20 12:24 | XMS_ITS | Encounter Summary ---
Author Organization Healthcare Address [address] [place] [address] Care Team Providers Care Squaring Shear Operator Name Role Phone Isabella Saucedo ROTO GRAVURE PRESS OPERATOR Unavailable [phone] Jeannie Mcmlilan RN Unavailable [phone] Ebony Shoemaker Unavailable [phone] Encounter Details Date Type Department Care Team (Late st Contact Info) Description 12/07/2024 Orders Only External Location [address] [place] [address] Provider, External Social History Tobacco Use Types [...] Procedure Name Priority Date/Time Associated Diagnosis Comments MR NEURO OUTSIDE IMAGES 12/07/2024 9:44 AM EDT documented in this encounter Results * MR NEURO OUTSIDE IMAGES (12/07/2024 9:44 AM EDT) Anatomical Region Laterality Modality Magnetic Resonan ce 12/07/2024 9:44 AM EDT us External Provider IMG MRI PROCEDURES Final Resul t documented in this encounter Visit Diagnoses Not on filedocumented in this encounter Care Teams Squaring Shear Operator Relationship Specialty Start Date End Date Isabella Saucedo APRN [address] [place] [address] Referring Physician 02/26/25 Jeannie Mcmillan, RN CH-TRANSPLANT ADMINISTRATION [address] [place] [address] Registered Nurse Transplant Surgery 03/08/25 Ebony Shoemaker [place] [id number] Registered Nurse Transplant Surgery 03/08/25 documented as of this encounter
--- OUTSIDE RECORDS SUMMARY | 2025-03-20 12:24 | XMS_ITS | Encounter Summary ---
Author Organization [facility] Address [address] [place] [address] Care Team Providers Care Assistant Food Service Director Name Role Phone Isabella Saucedo EDUCATION SPEC Unavailable [phone] Reason for Visit * Reason Comments Referral - Liver Txp Encounter Details Date Type Department Care Team (Late st Contact Info) Description 02/26/2025 Telephone [facility] [address] [place] [phone] Angelita Reeves [place] [phone] Referral - Liver Txp Social History Tobacco Use Types Packs/Day Years Used Date Smoking Tobacco: Never Assessed Sex and Gender Information Value Date Recorded Sex Assigned at Not on file Legal Sex Male 7:50 PM EDT Gender Identity Not on file Sexual Orientation Not on file documented as of this encounter Miscellaneous Notes * Telephone Encounter - Angelita Reeves - 02/26/2025 1:37 PM EDT New pre liver referral from amber Ramon pending financial clearance. documented in this encounter Plan of Treatment Not on file documented as of this encounter Procedures Procedure Name Priority Date/Time Associated Diagnosis Comments CREATININE, PLASMA Routine 01/04/2025 PROTHROMBIN TIME(PT) / INR Routine 01/04/2025 SODIUM, PLASMA Routine 01/04/2025 TOTAL BILIRUBIN, PLASMA Routine 01/04/2025 ALBUMIN, PLASMA Routine 01/04/2025 documented in this encounter Results * Prothrombin Time/INR (01/04/2025) External Prothrombin Time (PT) 11.6 External INR - Internormal Ratio 1.04 Blood Venous blood specimen / Unknown 01/04/2025 Result [facility] MD LAB BLOOD ORDERABLES Courtney l Result * Sodium, Plasma (01/04/2025) External Sodium 140 mmol/L Blood Venous blood specimen / Unknown 01/04/2025 Result [facility] LAB BLOOD ORDERABLES Courtney l Result * Creatinine, Plasma (01/04/2025) External Creatinine Blood 0.70 mg/dL Blood Venous blood specimen / Unknown 01/04/2025 Result [facility] LAB BLOOD ORDERABLES Courtney l Result * Total Bilirubin, Plasma (01/04/2025) External Bilirubin Total 1.3 mg/dL Blood Venous blood specimen / Unknown 01/04/2025 Result [facility] MD LAB BLOOD ORDERABLES Courtney l Result * Albumin, Plasma (01/04/2025) External Albumin 3.4 g/dL Blood Venous blood specimen / Unknown 01/04/2025 Result [facility] MD LAB BLOOD ORDERABLES Courtney l Result documented in this encounter Visit Diagnoses Not on filedocumented in this encounter Care Teams Assistant Food Service Director Relationship Specialty Start Date End Date Isabella Saucedo APRN [address] [place] [address] Referring Physician 02/26/25 documented as of this encounter
--- OUTSIDE RECORDS SUMMARY | 2025-03-20 12:24 | XMS_ITS | Encounter Summary ---
Author Organization Healthcare Address [address] [place] [address] Care Team Providers Care Trap Setter Name Role Phone Isabella Saucedo ORE SMELTER Unavailable [phone] Jeannie Mcmillan RN Unavailable [phone] Ebony Shoemaker Unavailable [phone] Encounter Details Date Type Department Care Team ([facility] st Contact Info) Description 05/26/2022 Orders Only External Location [address] [place] [address] Provider, External Social History Tobacco Use Types [...] Diagnosis Comments US ABDOMEN OUTSIDE IMAGES 05/26/2022 9:38 AM EDT documented in this encounter Results * US ABDOMEN OUTSIDE IMAGES (05/26/2022 9:38 AM EDT) Anatomical Region Laterality Modality Ultrasound 05/26/2022 9:38 AM EDT us External Provider IMG US PROCEDURES Final Result documented in this encounter Visit Diagnoses Not on filedocumented in this encounter Care Teams Trap Setter Relationship Specialty Start Date End Date Isabella Saucedo APRN [address] [place] [address] Referring Physician 02/26/25 Jeannie Mcmillan, RN [facility] [address] [place] [address] Registered Nurse Transplant Surgery 03/08/25 [place] [address] Registered Nurse Transplant Surgery 03/08/25 documented as of this encounter
--- OUTSIDE RECORDS SUMMARY | 2025-03-20 12:24 | XMS_ITS | Encounter Summary ---
Author Organization [facility] Address [address] [place] [address] Care Team Providers Care Top Case Assembler Name Role Phone Isabella Saucedo CROP PICKER Unavailable [phone] Reason for Referral * Consultation (Routine) - Closed Specialty Diagnoses / Procedures Referred By Contac t Referred To Contact Transplant Diagnoses Elevated AFP Liver lesion Hepatic cirrhosis, unspecified hepatic cirrhosis type, unspecified whether ascites present (CMS/HCC) Isabella Saucedo APRN [address] [facility] [address] [place] [address] Phone: tel: fax: [facility] Transplant Center [address] [address] Phone: tel: fax: Referral ID Status Reason Start Date Expiration Date V isits Requested Visits Authorized [id number] Closed Specialty Services Required 03/06/2025 09/05/2026 1 1 Encounter Details Date Type Department Care Team (Late st Contact Info) Description 03/06/2025 Telephone [facility] Trans[facility] Center [address] [address] Cici Ramírez [place] [phone] Social History Tobacco Use Types Packs/Day Years Used Date Smoking Tobacco: Never Assessed Sex and Gender Information Value Date Recorded Sex Assigned at Not on file Legal Sex Male 7:50 PM EDT Gender Identity Not on file Sexual Orientation Not on file documented as of this encounter Plan of Treatment Scheduled Referrals Name Type Priority Associated Diagnoses Orde r Schedule Ambulatory referral to Transplant Clinic Surgical Program Outpatient Referral Routine Elevated AFP Liver lesion Hepatic cirrhosis, unspecified hepatic cirrhosis type, unspecified whether ascites present (CMS/HCC) Expected: 03/14/2025, Expires: 09/07/2026 documented as of this encounter Results * Protime-INR (03/14/2025 8:38 AM EDT) Prothrombin Time 13.5 12.0 - 14.3 sec LAB COAGULATION METHOD 03/14/2025 9:44 AM EDT [facility] INR 1.0 0.9 - 1.1 LAB COAGULATION METHOD 03/14/2025 9:44 AM EDT [facility] Blood Venous blood specimen / Unknown Venipuncture / Unknown 03/14/2025 8:38 AM EDT 03/14/2025 9:03 AM EDT Narrative [facility] - 03/14/2025 9:44 AM EDT OPTIMAL INR RANGES FOR PATIENT ON ORAL ANTICOAGULANT THERAPY Prevention of venous thromboembolism INR 2.0 to 3.0 In patients with heart disease: Atrial fibrillation INR 2.0 to 3.0 Valvular heart disease INR 2.0 to 3.0 Tissue heart valves INR 2.0 to 3.0 Mechanical prosthetic valves INR 2.5 to 3.5 Prevention of recurrent AK INR 2.5 to 3.5 Peter Do MD LAB BLOOD ORDERABLES Final Result [facility] [address] [place] [address] * (ABNORMAL) CBC w/o differential (03/14/2025 8:38 AM EDT) WBC Count 5.56 3.70 - 10.30 10*3/uL LAB HEMATOLOGY METHOD 03/14/2025 9:51 AM EDT [facility] RBC Count 4.98 4.60 - 6.10 10*6/uL LAB HEMATOLOGY METHOD 03/14/2025 9:51 AM EDT [facility] HGB 15.9 13.7 - 17.5 g/dL LAB HEMATOLOGY METHOD 03/14/2025 9:51 AM EDT [facility] HCT 48.7 40.0 - 51.0 % LAB HEMATOLOGY METHOD 03/14/2025 9:51 AM EDT [facility] Platelet Count 96(L) 155 - 369 10*3/uL LAB HEMATOLOGY METHOD 03/14/2025 9:51 AM EDT [facility] MCV 98 79 - 98 fL LAB HEMATOLOGY METHOD 03/14/2025 9:51 AM EDT [facility] MCH 31.9 26.0 - 32.0 pg LAB HEMATOLOGY METHOD 03/14/2025 9:51 AM EDT [facility] MCHC 32.6 30.7 - 35.5 g/dL LAB HEMATOLOGY METHOD 03/14/2025 9:51 AM EDT [facility] RDW 17.2(H) 11.5 - 14.5 % LAB HEMATOLOGY METHOD 03/14/2025 9:51 AM EDT [facility] MPV 11.0 8.8 - 12.5 fL LAB HEMATOLOGY METHOD 03/14/2025 9:51 AM EDT [facility] nRBC 0.0 <=0.0 per 100 WBCs LAB HEMATOLOGY METHOD 03/14/2025 9:51 AM EDT [facility] Blood Venous blood specimen / Unknown Venipuncture / Unknown 03/14/2025 8:38 AM EDT 03/14/2025 9:03 AM EDT us Peter Do MD LAB BLOOD ORDERABLES Final Result [facility] [address] [place] [address] * (ABNORMAL) Comprehensive Metabolic Panel (03/14/2025 8:38 AM EDT) Glucose, Plasma 104(H) 74 - 99 mg/dL 03/14/2025 9:30 AM EDT [facility] BUN, Plasma 12 8 - 23 mg/dL 03/14/2025 9:30 AM EDT [facility] Creatinine, Plasma 0.80 0.70 - 1.20 mg/dL 03/14/2025 9:30 AM EDT [facility] BUN/Creatinine Ratio 15 03/14/2025 9:30 AM EDT [facility] Sodium, Plasma 142 136 - 145 mmol/L 03/14/2025 9:30 AM EDT [facility] Potassium, Plasma 3.8 3.6 - 4.9 mmol/L 03/14/2025 9:30 AM EDT [facility] Chloride, Plasma 102 97 - 107 mmol/L 03/14/2025 9:30 AM EDT [facility] CO2, Plasma 28 22 - 29 mmol/L 03/14/2025 9:30 AM EDT [facility] Anion Gap 12 6 - 16 mmol/L 03/14/2025 9:30 AM EDT [facility] Total Calcium, Plasma 9.8 8.9 - 10.2 mg/dL 03/14/2025 9:30 AM EDT [facility] Total Protein 8.0(H) 6.3 - 7.9 g/dL 03/14/2025 9:30 AM EDT [facility] Albumin, Plasma 4.2 3.5 - 5.2 g/dL 03/14/2025 9:30 AM EDT [facility] AST, Plasma 78(H) 10 - 50 U/L 03/14/2025 9:30 AM EDT [facility] ALT, Plasma 50 10 - 50 U/L 03/14/2025 9:30 AM EDT [facility] Alkaline Phosphatase, Plasma 210(H) 40 - 115 U/L 03/14/2025 9:30 AM EDT [facility] Total Bilirubin, Plasma 0.8 0.2 - 1.1 mg/dL 03/14/2025 9:30 AM EDT [facility] eGFRcr 97.6 mL/min/1.7 3m*2 03/14/2025 9:30 AM EDT [facility] Comment:Reported eGFRcr in m L/min/1.73m2 is based the CKD-EPI 2020 equation that does not use a race coefficient. Blood Venous blood specimen / Unknown Venipuncture / Unknown 03/14/2025 8:38 AM EDT 03/14/2025 9:03 AM EDT Peter Do MD LAB [place] [address] * (ABNORMAL) CEA, Serum (03/14/2025 8:38 AM EDT) CEA, Serum 5.2(H) <4.0 ng/mL 03/14/2025 10:22 AM EDT [facility] Blood Venous blood specimen / Unknown Venipuncture / Unknown 03/14/2025 8:38 AM EDT 03/14/2025 9:03 AM EDT Narrative [facility] - 03/14/2025 10:22 AM EDT Normal range for smokers: < 5.5 ng/ml Normal range for non-smokers: <=4.0 ng/ml Performed by Ricky electrochemiluminescent immunoassay. Results obtained with different test methods or kits cannot be used interchangeably. Peter Do MD LAB BLOOD ORDERABLES Final Result Performing Organization Address [facility] [place] [address] * Cancer Antigen, GI (CA 19.9) (03/14/2025 8:38 AM EDT) CA 19.9 26.5 <36 U/mL 03/14/2025 10:22 AM EDT [facility] Blood Venous blood specimen / Unknown Venipuncture / Unknown 03/14/2025 8:38 AM EDT 03/14/2025 9:03 AM EDT Narrative [facility] - 03/14/2025 10:22 AM EDT Performed by Ricky electrochemiluminescent immunoassay. Results obtained with different test methods or kits cannot be used interchangeably. Peter Do MD LAB BLOOD ORDERABLES Final Result [facility] [address] [place] [address] * (ABNORMAL) Alpha Fetoprotein, Serum (03/14/2025 8:38 AM EDT) Alpha Fetoprotein, Serum 1,098.0(H) <10.0 ng/mL 03/14/2025 10:22 AM EDT [facility] Blood Venous blood specimen / Unknown Venipuncture / Unknown 03/14/2025 8:38 AM EDT 03/14/2025 9:03 AM EDT Narrative [facility] - 03/14/2025 10:22 AM EDT Performed by Ricky electrochemiluminescent immunoassay which is traceable to the 1st AFP IRP WHO Reference standard 72/255. Results obtained with different test methods or kits cannot be used interchangeably. us Peter Do MD LAB BLOOD ORDERABLES Final Result [facility] [address] [place] [address] documented in this encounter Visit Diagnoses Diagnosis Liver lesion- Primary Other specified disorders of liver Elevated AFP Other nonspecific findings on examination of blood Hepatic cirrhosis, unspecified hepatic cirrhosis type, unspecified whether ascites present (CMS/HCC) Other abnormal tumor markers documented in this encounter Care Teams Top Case Assembler Relationship Specialty Start Date End Date Isabella Saucedo APRN [address] [place] [address] Referring Physician 02/26/25 documented as of this encounter
--- OUTSIDE RECORDS SUMMARY | 2025-03-20 12:24 | XMS_ITS | Encounter Summary ---
Author Organization [facility] [place] [address] Care Team Providers Care Baker Pie Name Role Phone Jan Sin MD Unavailable [phone] Macario Pryor MD Un[facility] Cr Resendez MD Primary Care Provider [phone] Reason for Visit * Reason Onset Date Comments Paperwork/forms 02/22/2025 Encounter Details Date Type Department Care Team (Late st Contact Info) Description 02/22/2025 Telephone SEP Luis [facility] [place] [address] Cr Resendez MD [address] [place] [address] [place] [address] Paperwork/forms Social History Tobacco Use Types Packs/Day Years [...] Telephone Encounter - Elizabeth Ortiz RMA - 02/22/2025 11:06 AM EDT We have received paperwork from [employer] , I spoke to the patient and his they stated they have never used [facility] , the phone number they are calling from is [phone] thefax number that is on the paperwork [phone] , this paperwork is not being filled out and will not be faxed back due to the patient not using there pharmacy , possible scam ! documented in this encounter Plan of Treatment Not on file documented as of this encounter Goals Goal Patient Goal Type Associated Problems Recent Progress Patient-Stated? Author Blood Pressure < 140/90 Blood Pressure 102/56(2024 9:46 AM EDT) No Jun Cruz MD Eat better, exercise, reach an ideal body weight General No Solo Lowry, RMAmerico Stay Tobacco Free Lifestyle No Solo Lowry [...] documented as of this encounter Care Teams Baker Pie Relationship Specialty Start Date End Date Macario Pryor MD [address] [place] [address] [place] [address] PCP - Hematology/Oncology Internal Medicine-Medical Oncology 11/12/15 Cr Resendez MD [address] [place] [address] [place] [id number] PCP - General Family Medicine 11/24/21 Jan Sin MD [address] [place] [address] [place] [address] Internal Medicine-Cardiovascul ar Disease 08/28/14 documented as of this encounter
--- OUTSIDE RECORDS SUMMARY | 2025-03-20 12:24 | XMS_ITS | Encounter Summary ---
Author Organization Healthcare Address [address] [place] [address] Care Team Providers Care Assistant Professor In Family Studies Name Role Phone Isabella Saucedo QUALITY COMPLIANCE CONSULTANT Unavailable [phone] Jeannie Mcmillan RN Unavailable [phone] Ebony Shoemaker Unavailable [phone] Encounter Details Date Type Department Care Team ([facility] st Contact Info) Description 01/06/2024 Orders Only External Location [address] [place] [address] Provider, External Social History Tobacco Use Types [...] Date/Time Associated Diagnosis Comments XR OUTSIDE IMAGES 01/06/2024 5:59 AM EDT documented in this encounter Results * XR OUTSIDE IMAGES (01/06/2024 5:59 AM EDT) Anatomical Region Laterality Modality Radiographic Winnie ging 01/06/2024 5:59 AM EDT us External Provider IMG XR PROCEDURES Final Result documented in this encounter Visit Diagnoses Not on filedocumented in this encounter Care Teams Assistant Professor In Family Studies Relationship Specialty Start Date End Date Isabella Saucedo APRN [address] [place] [address] Referring Physician 02/26/25 Jeannie Mcmillan, RN [facility] [address] [place] [address] Registered Nurse Transplant Surgery 03/08/25 [place] [address] Registered Nurse Transplant Surgery 03/08/25 documented as of this encounter
--- OUTSIDE RECORDS SUMMARY | 2025-03-20 12:24 | XMS_ITS | Encounter Summary ---
Author Organization [facility] Address [address] [place] [address] Care Team Providers Care Awning Craftsperson Name Role Phone Cr Resendez MD Primary Care Provider [phone] Source Comments This information has been disclosed [...] release of HIV test results or diagnoses. [id number] Encounter Details Date Type Department Care Team (Late st Contact Info) Description 01/24/2025 Chart Note [facility] Interventional Pulmonary at [address] [address] Elizabeth Tabor, RN Chart Note: Incidental Findings Social History Tobacco Use Types Packs/Day Years Used Date Smoking Tobacco: Some Days Cigarettes Passive Smoke Exposure: Current Utilities Answer Date Recorded In the past 12 months has th [employer], gas, oil, or water company threatened to [...] any time in the past [address] [facility] [place], were you homeless or living in a retirement (including now)? Patient declined 12/07/2024 Sex and Gender Information Value Date Recorded Sex Assigned at Not on file Legal Sex Male 4:51 PM EST Gender Identity Not on file Sexual Orientation Not on file documented as of this encounter Progress Notes * Elizabeth Tabor RN - 01/24/2025 12:04 PM EDT Chart Note: Incidental Findings Subjective: The patient underwent CT Lumbar on 12/07/2024 for the evaluation of fall. No significant symptoms orconcerns regarding the lungs were reported at the time of the study. Objective: Radiology report findings include: Biapical lung scarring with calcification with upper zone predominant emphysema. Pulmonary nodule in the medial subpleural right lower lobe measures 7 x 5 mm Smoking History: current smoker Incidental findings in the lungs, which were not the primary focus of the imaging but should be reviewed further. The findings were not previously documented or known to the patient and were noted on the radiologyreport as incidental. Assessment: These findings were identified through our AI incidental tracking software, which helps flag incidental findings in imaging studies for further review. Recommendation: Given the nature of the findings, a follow-up evaluation is advised for further assessment. Additional imaging or evaluation may be necessary to rule out any significant pathology. Plan: The patient has been informed of the incidental findings and a letter has been sent to notify them of the results. The referring provider and primary care physician has been alerted regarding the findings, and the patient is encouraged to follow up with them for further discussion and management. Patient Education: The patient was educated that incidental findings are often benign but should befollowed up to ensure proper management. The importance of follow-up was emphasized. *Patient is in Lung Screening program at [facility], however this finding was not on most recentCT Lung Screening. Elizabeth Tabor RN Lung Nodule Coordinator Interventional Pulmonology [phone] 01/24/2025 12:04 PM * Elizabeth Tabor RN - 01/24/2025 12:04 PM EDT Call made to follow up on recent CT scan showing lung nodules. Explained recommendations and followup based on Fleischner Guidelines, and radiology read. - Patient plans to follow up with PCP closer to home. I explained the lung screening scans from [facility] and someone should compare scans. Pt had questions about Hernia Surgery, which I could not find any contact information for him (he said his has it anyway). - All questions answered. Pt very polite and appreciative. Elizabeth Tabor RN Lung Nodule Clinic Navigator [phone] documented in this encounter Plan of Treatment Not on file documented as of this encounter Visit Diagnoses Not on filedocumented in this encounter Care Teams Awning Craftsperson Relationship Specialty Start Date End Date Cr Resendez MD [address] [place] [address] [place] [address] PCP - General Family Medicine 12/07/24 documented as of this encounter
--- OUTSIDE RECORDS SUMMARY | 2025-03-20 12:24 | XMS_ITS | Encounter Summary ---
Author Organization [facility] [address] [facility] [place] [id number] Care Team Providers Care Plywood And Veneer Repairer Name Role Phone Unavailable Primary Care Provider Unavailabl e Encounter Details Date Type Department Care Team (Latest Contact Info) Description 02/09/2025 Travel Social History Tobacco Use Types Packs/Day [...]
--- OUTSIDE RECORDS SUMMARY | 2025-03-20 12:24 | XMS_ITS | Encounter Summary ---
Author Organization Healthcare Address [address] [place] [address] Care Team Providers Care Gear Keeper Name Role Phone Isabella Saucedo JAVA ARCHITECT Unavailable [phone] Encounter Details Date Type Department Care Team (Latest Contact Info) Description 03/07/2025 Travel Social History Tobacco Use Types Packs/Day [...] on filedocumented in this encounter Care Teams Gear Keeper Relationship Specialty Start Date End Date Iasbella Saucedo APRN [address] [place] [address] Referring Physician 02/26/25 documented as of this encounter
--- OUTSIDE RECORDS SUMMARY | 2025-03-20 12:24 | XMS_ITS | Encounter Summary ---
Author Organization Healthcare Address [address] [place] [address] Care Team Providers Care Chief Catalyst Operator Name Role Phone Isabella Saucedo TYING IN MACHINE OPERATOR Unavailable [phone] Jeannie Mcmillan RN Unavailable [phone] Ebony Shoemaker Unavailable [phone] Encounter Details Date Type Department Care Team (Late st Contact Info) Description 12/06/2024 Orders Only External Location [address] [place] [address] Provider, External Social History Tobacco Use Types [...] Diagnosis Comments XR MSK OUTSIDE IMAGES 12/06/2024 3:16 PM EDT documented in this encounter Results * XR MSK OUTSIDE IMAGES (12/06/2024 3:16 PM EDT) Anatomical Region Laterality Modality Radiographic Winnie ging 12/06/2024 3:16 PM EDT External Provider IMG XR PROCEDURES Final Result documented in this encounter Visit Diagnoses Not on filedocumented in this encounter Care Teams Chief Catalyst Operator Relationship Specialty Start Date End Date Isabella Saucedo APRN [address] [place] [address] Referring Physician 02/26/25 Jeannie Mcmillan, RN [facility] [address] [place] [address] Registered Nurse Transplant Surgery 03/08/25 [place] [address] Registered Nurse Transplant Surgery 03/08/25 documented as of this encounter
--- OUTSIDE RECORDS SUMMARY | 2025-03-20 12:24 | XMS_ITS | Encounter Summary ---
Author Organization Healthcare Address [address] [place] [address] Care Team Providers Care Pusher Runner Name Role Phone Isabella Saucedo MARKET RESEARCHER Unavailable [phone] Jeannie Mcmillan RN Unavailable [phone] Ebony Shoemaker Unavailable [phone] Encounter Details Date Type Department Care Team (Late st Contact Info) Description 12/07/2024 Orders Only External Location [address] [place] [address] Provider, External Social History Tobacco Use Types [...] Name Priority Date/Time Associated Diagnosis Comments CT NEURO OUTSIDE IMAGES 12/07/2024 12:06 AM EDT documented in this encounter Results * CT NEURO OUTSIDE IMAGES (12/07/2024 12:06 AM EDT) Anatomical Region Laterality Modality Computed Tomogra phy 12/07/2024 12:0 6 AM EDT us External Provider IMG CT PROCEDURES Final Result documented in this encounter Visit Diagnoses Not on filedocumented in this encounter Care Teams Pusher Runner Relationship Specialty Start Date End Date Isabella Saucedo APRN [address] [place] [address] [place] [address] Referring Physician 02/26/25 Jeannie Mcmillan, RN [facility] [address] [place], [place] [id number] Registered Nurse Transplant Surgery 03/08/25 [place] [address] Registered Nurse Transplant Surgery 03/08/25 documented as of this encounter
--- OUTSIDE RECORDS SUMMARY | 2025-03-20 12:24 | XMS_ITS | Encounter Summary ---
Author Organization [place] [address] Care Team Providers Care Process Camera Operator Name Role Phone Jan Sin MD Unavailable [phone] Macario Pryor MD Unavailable Unavailabl e Cr Resendez MD Primary Care Provider [phone] Reason for Visit * Reason Comments Medication Refill Encounter Details Date Type Department Care Team (Late st Contact Info) Description 02/20/2025 Refill SEP Luis [facility] [place] [address] Cr Resendez MD [address] [place] [address] [place] [address] Medication Refill Social History Tobacco Use [...] 11/24/2021 10:05 AM EDDanny Ashby MA * Does this person have difficulty dressing or bathing? Answer Date of Assessment Author No 11/24/2021 10:05 AM EDT Danny Jones MA * Because of a physical, mental or emotional condition, does this person have difficulty doing errands alone such as visiting a doctor's office or shopping? Answer Date of Assessment Author No 11/24/2021 10:05 AM EDDanny Ashby MA documented as of this encounter Mental Status * Because of a physical, mental or emotional condition, does this person have serious difficulty concentrating, remembering or making decisions? Answer Entry Date Author No 11/24/2021 10:05 AM Danny Mckeon MA documented in this encounter Ordered Prescriptions Prescription Sig Dispense Quantity Refills Last Filled Start Date End Date clopidogreL (PLAVIX) 75 mg Oral Tablet Take 1 Tablet by mouth daily. 30 Tablet 02/21/2025 documented in this encounter Plan of Treatment [...] Direct < 100 Result Component No Abdiaziz hCeng MD documented as of this encounter Visit Diagnoses Not on filedocumented in this encounter Discontinued Medications Medication Sig Discontinue Reason Start Date End Da te clopidogreL (PLAVIX) 75 mg Oral Tablet Take 1 Tablet by mouth daily. 01/19/2025 02/21/2025 documented as of this encounter Additional Health Concerns Assessment Noted Time PHQ-9 Depression Total Score: 10 024 1:00 PM EDT A fall risk assessment has been complete d for the patient 06/20/2024 1:28 PM EDT PHQ-2 Depression Total Score: 3 06/20/20 1:00 PM EDT documented as of this encounter Care Teams Process Camera Operator Relationship Specialty Start Date End Date Macario Pryor MD [address] [place] [address] [place] [address] PCP - Hematology/Oncology Internal Medicine-Medical Oncology 11/12/15 Cr Resendez MD [address] [place] [address] [place] [address] PCP - General Family Medicine 11/24/21 Jan Sin MD [address] [place] [address] [place] [address] Internal Medicine-Cardiovascul ar Disease 08/28/14 documented as of this encounter
--- OUTSIDE RECORDS SUMMARY | 2025-03-20 12:25 | XMS_ITS | Encounter Summary ---
Author Organization Healthcare Address [address] [place] [address] Care Team Providers Care Qa Software Test Engineer Name Role Phone Isabella Saucedo PIPELINE TECHNICIAN Unavailable [phone] Jeannie Mcmillan RN Unavailable [phone] Ebony Shoemaker Unavailable [phone] Encounter Details Date Type Department Care Team ([facility] st Contact Info) Description 12/06/2024 Orders Only External Location [address] [place] [address] Provider, External Social History Tobacco Use Types [...] Diagnosis Comments XR MSK OUTSIDE IMAGES 12/06/2024 3:22 PM EDT documented in this encounter Results * XR MSK OUTSIDE IMAGES (12/06/2024 3:22 PM EDT) Anatomical Region Laterality Modality Radiographic Winnie ging 12/06/2024 3:22 PM EDT External Provider IMG XR PROCEDURES Final Result documented in this encounter Visit Diagnoses Not on filedocumented in this encounter Care Teams Qa Software Test Engineer Relationship Specialty Start Date End Date Isabella Saucedo APRN [address] [place] [address] [place] [address] Referring Physician 02/26/25 Jeannie Mcmillan, RN [facility] [address] [place] [address] Registered Nurse Transplant Surgery 03/08/25 [place] [address] Registered Nurse Transplant Surgery 03/08/25 documented as of this encounter
--- OUTSIDE RECORDS SUMMARY | 2025-03-20 12:25 | XMS_ITS | Encounter Summary ---
Author Organization Healthcare Address [address] [place] [address] Care Team Providers Care Body Technician/Painter Name Role Phone Isabella Saucedo STENCIL SPRAYER Unavailable [phone] Jeannie Mcmillan RN Unavailable [phone] Ebony Shoemaker Unavailable [phone] Encounter Details Date Type Department Care Team ([facility] st Contact Info) Description 12/06/2024 Orders Only External Location [address] [place] [address] Provider, External Social History Tobacco Use Types [...] Diagnosis Comments XR MSK OUTSIDE IMAGES 12/06/2024 3:39 PM EDT documented in this encounter Results * XR MSK OUTSIDE IMAGES (12/06/2024 3:39 PM EDT) Anatomical Region Laterality Modality Radiographic Winnie ging 12/06/2024 3:39 PM EDT External Provider IMG XR PROCEDURES Final Result documented in this encounter Visit Diagnoses Not on filedocumented in this encounter Care Teams Body Technician/Painter Relationship Specialty Start Date End Date Isabella Saucedo APRN [address] [place] [address] [place] [address] Referring Physician 02/26/25 Jeannie Mcmillan, RN [facility] [address] [place] [address] Registered Nurse Transplant Surgery 03/08/25 [place] [address] Registered Nurse Transplant Surgery 03/08/25 documented as of this encounter
--- OUTSIDE RECORDS SUMMARY | 2025-03-20 12:25 | XMS_ITS | Encounter Summary ---
Author Organization Healthcare Address [address] [place] [address] Care Team Providers Care Building Surveyor Name Role Phone Isabella Saucedo STOCK SELECTOR Unavailable [phone] Jeannie Mcmillan RN Unavailable [phone] Ebony Shoemaker Unavailable [phone] Encounter Details Date Type Department Care Team (Late st Contact Info) Description 12/06/2024 Orders Only External Location [address] [place] [address] Provider, External Social History Tobacco Use Types [...] Associated Diagnosis Comments CT NEURO OUTSIDE IMAGES 12/06/2024 5:11 PM EDT documented in this encounter Results * CT NEURO OUTSIDE IMAGES (12/06/2024 5:11 PM EDT) Anatomical Region Laterality Modality Computed Tomogra phy 12/06/2024 5:11 PM EDT us External Provider IMG CT PROCEDURES Final Result documented in this encounter Visit Diagnoses Not on filedocumented in this encounter Care Teams Building Surveyor Relationship Specialty Start Date End Date Isabella Saucedo APRN [address] [place] [address] Referring Physician 02/26/25 Jeannie Mcmillan, RN [facility] [address] [place] [address] Registered Nurse Transplant Surgery 03/08/25 [place] [address] Registered Nurse Transplant Surgery 03/08/25 documented as of this encounter
--- OUTSIDE RECORDS SUMMARY | 2025-03-20 12:25 | XMS_ITS | Encounter Summary ---
Author Organization Healthcare Address [address] [place] [address] Care Team Providers Care Trash Hauler Name Role Phone Isabella Saucedo CASINO BANKER Unavailable [phone] Jeannie Mcmillan RN Unavailable [phone] Ebony Shoemaker Unavailable [phone] Encounter Details Date Type Department Care Team ([facility] st Contact Info) Description 12/06/2024 Orders Only External Location [address] [place] [address] Provider, External Social History Tobacco Use Types [...] Diagnosis Comments XR MSK OUTSIDE IMAGES 12/06/2024 3:23 PM EDT documented in this encounter Results * XR MSK OUTSIDE IMAGES (12/06/2024 3:23 PM EDT) Anatomical Region Laterality Modality Radiographic Winnie ging 12/06/2024 3:23 PM EDT External Provider IMG XR PROCEDURES Final Result documented in this encounter Visit Diagnoses Not on filedocumented in this encounter Care Teams Trash Hauler Relationship Specialty Start Date End Date Isabella Saucedo APRN [address] [place] [address] Referring Physician 02/26/25 Jeannie Mcmillan, RN [facility] [address] [place] [address] Registered Nurse Transplant Surgery 03/08/25 [place] [address] Registered Nurse Transplant Surgery 03/08/25 documented as of this encounter
--- OUTSIDE RECORDS SUMMARY | 2025-03-20 12:25 | XMS_ITS | Encounter Summary ---
Author Organization Healthcare Address [address] [place] [address] Care Team Providers Care Production Line Solderer Name Role Phone Isabella Saucedo INTEGRATED MARKETING INTERN Unavailable [phone] Jeannie Mcmillan RN Unavailable [phone] Ebony Shoemaker Unavailable [phone] Encounter Details Date Type Department Care Team (Late st Contact Info) Description 12/06/2024 Orders Only External Location [address] [place] [address] Provider, External Social History Tobacco Use Types [...] Diagnosis Comments CT NEURO OUTSIDE IMAGES 12/06/2024 3:19 PM EDT documented in this encounter Results * CT NEURO OUTSIDE IMAGES (12/06/2024 3:19 PM EDT) Anatomical Region Laterality Modality Computed Tomogra phy 12/06/2024 3:19 PM EDT us External Provider IMG CT PROCEDURES Final Result documented in this encounter Visit Diagnoses Not on filedocumented in this encounter Care Teams Production Line Solderer Relationship Specialty Start Date End Date Isabella Saucedo APRN [address] [place] [address] Referring Physician 02/26/25 Jeannie Mcmillan, RN [facility] [address] [place] [address] Registered Nurse Transplant Surgery 03/08/25 [place] [address] Registered Nurse Transplant Surgery 03/08/25 documented as of this encounter
--- OUTSIDE RECORDS SUMMARY | 2025-03-20 12:25 | XMS_ITS | Encounter Summary ---
Author Organization Healthcare Address [address] [place] [address] Care Team Providers Care Gift Consultant Name Role Phone Isabella Saucedo BAGGAGE SMASHER Unavailable [phone] Jeannie Mcmillan RN Unavailable [phone] Ebony Shoemaker Unavailable [phone] Encounter Details Date Type Department Care Team ([facility] st Contact Info) Description 12/06/2024 Orders Only External Location [address] [place] [address] Provider, External Social History Tobacco Use Types [...] on filedocumented in this encounter Care Teams Gift Consultant Relationship Specialty Start Date End Date Isabella Saucedo APRN [address] [place] [address] Referring Physician 02/26/25 Jeannie Mcmillan, RN [facility] [address] [place] [address] Registered Nurse Transplant Surgery 03/08/25 [place] [address] Registered Nurse Transplant Surgery 03/08/25 documented as of this encounter
--- OUTSIDE RECORDS SUMMARY | 2025-03-20 12:25 | XMS_ITS | Encounter Summary ---
Author Organization Healthcare Address [address] [place] [address] Care Team Providers Care Customer Operations Manager Name Role Phone Isabella Saucedo ALARM MECHANIC Unavailable [phone] Jeannie Mcmillan RN Unavailable [phone] Ebony Shoemaker Unavailable [phone] Encounter Details Date Type Department Care Team (Late st Contact Info) Description 12/06/2024 Orders Only External Location [address] [place] [address] Provider, External Social History Tobacco Use Types [...] Diagnosis Comments XR MSK OUTSIDE IMAGES 12/06/2024 3:12 PM EDT documented in this encounter Results * XR MSK OUTSIDE IMAGES (12/06/2024 3:12 PM EDT) Anatomical Region Laterality Modality Radiographic Winnie ging 12/06/2024 3:12 PM EDT External Provider IMG XR PROCEDURES Final Result documented in this encounter Visit Diagnoses Not on filedocumented in this encounter Care Teams Customer Operations Manager Relationship Specialty Start Date End Date Isabella Saucedo APRN [address] [place] [address] Referring Physician 02/26/25 Jeannie Mcmillan, RN [facility] [address] [place] [address] Registered Nurse Transplant Surgery 03/08/25 [place] [address] Registered Nurse Transplant Surgery 03/08/25 documented as of this encounter
--- NOTE | 2025-03-20 12:26 | ED_ITS ---
Discharge Plan Disposition Patient Disposition: Home, Self-Care Prescriptions Prescriptions: No Action oxycodone 10 mg tablet 7.5 mg PO TID Patient Comments: TAKE 1 TABLET BY ORAL ROUTE 4 TIMES A DAY FOR 29 DAYS M54.17 albuterol sulfate 90 mcg/actuation HFA aerosol inhaler inhalation Patient Comments: INHALE 2 PUFFS INTO THE LUNGS 4 TIMES DAILY. methocarbamol 500 mg tablet 500 mg PO nitroglycerin 0.4 mg tablet, sublingual 0.4 mg sublingual Q5M PRN (Reason: chest pain) Qty: 14 0RF Rx Instructions: do not exceed 3 doses per episode bisoprolol fumarate 5 mg tablet 5 mg PO DAILY Qty: 30 2RF furosemide [Lasix] 20 mg tablet 40 mg PO DAILY PRN (Reason: edema) Qty: 30 0RF Rx Instructions: Take one-two tabs daily for swelling atorvastatin 20 mg tablet 20 mg PO HS Patient Comments: TAKE 1 TABLET BY MOUTH NIGHTLY. aspirin 81 mg Tablet 81 mg PO DAILY escitalopram oxalate 20 mg tablet 20 mg PO HS Patient Comments: TAKE 1 TABLET BY MOUTH DAILY. Trelegy Ellipta 100-62.5-25 mcg blister with device 1 inh INHALATION DAILY Patient Comments: INHALE 1 PUFF INTO THE LUNGS DAILY AT 0900. clopidogrel 75 mg Tablet 75 mg PO DAILY 30 Days Qty: 30 0RF Jardiance 10 mg Tablet 10 mg PO DAILY 30 Days Qty: 30 0RF Entresto 24-26 mg Tablet 1 tab PO BID 30 Days Qty: 60 0RF Referrals Follow up/Referrals: Pain Management [Provider Group, Pain Management] - See instructions Larry Beauchamp MD [Staff Physician, Pain Management] - See instructions Cr Resendez MD [Primary Care Provider, Medical] - See instructions Clinical Impressions Clinical Impression: Hepatocellular carcinoma in adult Stand Alone Forms Stand Alone Forms: Transfer Record - ED Instructions Patient Instructions: DI for Acute Abdominal Pain Print Language Print Language: Citizen Of [place] Discharge ED Provider: Taj Paredes Adult HPI <Monalisa Elizondo (ED), [employer] SERVICE REPRESENTATIVE - Last Filed: 03/20/25 14:35> General Chief complaint: Abdominal Pain Stated complaint: Pressure in chest. Upper abd. pain, swollen abd. Time Seen by Provider: 03/20/25 12:13 Mode of Arrival: Ambulatory Source of Information: Patient and Spouse Description of Symptoms (Recalled from ER Triage Doc. by RN): pt reporting increased abdominal pressure and belly swelling. got diagnosed with liver cancer 2 weeks ago. has not started treatments yet. pt has a history of multiple MIs and open heart surgery. History of Present Illness HPI narrative: 64-year-old male presents to the ED today for complaint of abdominal pressure, chest pressure at the bottom of his chest and swelling in his abdomen. He was diagnosed with liver cancer 2 weeks ago. He goes to see Dr. Jimenez on to discuss a plan for his cancer. Patient has had open heart surgery with multiple MIs in the past. He has history of COPD and mitral valve prolapse. Patient says the pressure started getting worse yesterday. is at bedside giving partial history. He does have gallstones and kidney stones. He also tells me he fell down the stairs in November and had to have neck surgery at and had a neck brace on until recently. says he increased his Lasix to 40 he was only taken 20 recently. Recently diagnosed with fluid around his heart. Related Data Home Medications ?Medication ?Instructions ?Recorded ?Confirmed aspirin 81 mg tablet 81 mg PO DAILY 01/06/2401/28 atorvastatin 20 mg tablet 20 mg PO HS 01/06/24 5 escitalopram oxalate 20 mg tablet 20 mg PO HS 01/06/24 02/12/25 fluticasone fur. 100 mcg-umeclid 1 inh inhalation BJ Y 01/06/24 02/12/25 62.5 mcg-vilant 25 mcg inhalat.powder (Trelegy Ellipta) albuterol sulfate 90 mcg/actuation inhalation 11/22/24 02/12/25 aerosol inhaler methocarbamol 500 mg tablet 500 mg PO 12/28/24 5 oxycodone 10 mg tablet 7.5 mg PO TID 12/28/2402/12 Previous Rx's ?Medication ?Instructions ?Recorded clopidogrel 75 mg tablet 75 mg PO DAILY 30 days #30 t abs 01/07/24 empagliflozin 10 mg tablet 10 mg PO DAILY 30 days #30 tabs 01/07/24 (Jardiance) sacubitril 24 mg-valsartan 26 mg 1 tab PO BID 30 days #60 tabs 01/07/24 tablet (Entresto) nitroglycerin 0.4 mg sublingual 0.4 mg sublingual Q5M PRN chest 01/10/24 tablet pain #14 tabs bisoprolol fumarate 5 mg tablet 5 mg PO DAILY #30 tabs 09/25/24 furosemide 20 mg tablet (Lasix) 40 mg (2 x 20 mg) PO D AILY PRN 12/15/24 edema #30 tabs Allergies Allergy/AdvReac Type Severity Reaction Status Date / Time adhesive tape (ADHESIVE TAPE) Allergy Intermediate I-RASH Verified 02/12/25 13:29 duloxetine (From CYMBALTA) AdvReac Unknown Verified 02/12/25 13:29 [facility] <Monalisa Elizondo (ED), [employer] SERVICE REPRESENTATIVE - Last Filed: 03/20/25 14:35> [facility] Disclaimer: The information contained in this section may have been updated after the patient was seen, as this information can be updated by other users. Medical History Mood disorder COPD (chronic obstructive pulmonary disease) Vitamin D deficiency, unspecified Abnormal ultrasound of both kidneys HTN (hypertension) Moderate mitral valve regurgitation Fatigue SOB (shortness of breath) Surgical History Hx of CABG AICD (automatic cardioverter/defibrillator) present Family History Other No significant family history Social History Smoking Status: Never smoker years smoked: 40 quit status: has quit before alcohol intake: never substance use type: denies use current occupational status: disabled Travel in the last 8 weeks?: None household members: spouse housing: house caffeine: Yes Have you lived/traveled outside US in past 30 days?: No Contact w/someone who lives/traveled outside US past 30 days?: No Exposure to someone with infectious disease in past 14 days?: No Do you have a fever (greater than 100.4 F or 38 C)?: No Have you tested positive for COVID-19?: No Exposed to someone with COVID-19 in past 14 days?: No Do you have a sore throat?: No Do you have a cough?: No Do you have any weakness?: No Do you have any diarrhea?: No Are you experiencing any unusual bleeding?: No Do you have any muscle aches/pain?: No Do you have any abdominal pain?: Yes Are you experiencing loss of taste or smell?: No Other Medical History Have you received the Flu Vaccine for this season: No Have you received the Pneumonia Vaccine: No <Monalisa [facility] ([facility]), [employer] SERVICE REPRESENTATIVE - Last Filed: 03/20/25 14:35> ROS Obtained: Yes Systems reviewed as appropriate & no additional complaints except as documented Constitutional Constitutional: Reports as per HPI Physical Exam <Monalisa [facility] (ED), [employer] SERVICE REPRESENTATIVE - Last Filed: 03/20/25 14:35> General General appearance: alert and anxious Head Head exam: normocephalic Eye Eye exam: Present PERRL and EOMI ENT ENT exam: Present normal oropharynx and mucous membranes moist Neck Neck exam: Present full ROM and trachea midline Respiratory Respiratory exam: Present normal lung sounds bilaterally Cardiovascular Cardiovascular exam: Present regular rate, normal rhythm, normal heart sounds, +S1 and +S2 Abdominal Exam Abdominal exam: Present soft and normal bowel sounds Abdominal tenderness: Present LUQ, epigastrium and mild Extremities Exam Extremities exam: Present normal inspection, full ROM and normal capillary refill Neurological Exam Neurological exam: Present alert, oriented X3 and normal gait Skin Skin exam: Present warm, dry and intact Medical Decision Making <[facility] (ED), [employer] SERVICE REPRESENTATIVE - Last Filed: 03/20/25 14:35> Medical Records Screening: Per USPSTF and CDC recommendations, given the prevalence of disease in our region, it is our hospital?s policy to screen for HIV and viral Hepatitis for all patients aged 18 and over and those with ongoing risk factors. Tony Inquiry Pt receiving controlled substance: No Tony was queried for this patient: No Vital Signs: 03/20/25 12:19 03/20/25 13:31 03/20/25 14:00 Temperature 97.9 F Temperature Source Oral Pulse Rate 62 65 Pulse Rate [Right] 66 Respiratory Rate 18 Blood Pressure 144/56 H 162/60 H Blood Pressure [Right Arm] 162/77 H Blood Pressure Mean Blood Pressure Mean [Right Arm] 105 02 Sat by Pulse Oximetry 97 94 L 97 Oxygen Delivery Method Room Air 03/20/25 14:30 03/20/25 14:38 03/20/25 15:00 Temperature 98.1 F Temperature Source Pulse Rate 62 63 60 Pulse Rate [Right] Respiratory Rate 20 Blood Pressure 157/56 H 157/56 H 149/55 H Blood Pressure [Right Arm] Blood Pressure Mean 86 Blood Pressure Mean [Right Arm] 02 Sat by Pulse Oximetry 98 98 Oxygen Delivery Method Room Air Lab Data Lab Results 03/20/25 12:18: WBC 6.5, RBC 4.84, Hgb 16.0, Hct 46.8, MCV 96.7 H, MCH 33.1 H, MCHC 34.2, RDW 16.2, Plt Count 90 L, MPV 11.4 H, Neut % (Auto) 57.0, Lymph % (Auto) 26.4, [place] % (Auto) 14.6 H, Eos % (Auto) 1.1, Baso % (Auto) 0.6, Neut # (Auto) 3.7, Lymph # (Auto) 1.7, [place]t # (Auto) 1.0, Eos # (Auto) 0.1, Baso # (Auto) 0.0, APTT 26.4, D-Dimer 0.99 H, Sodium 136, Potassium 3.9, Chloride 101, Carbon Dioxide 30, Anion Gap 8.9, BUN 20, Creatinine 0.80, Estimated Creat Clear 70, Estimated GFR 97, Est GFR ( Amer) 117, Glucose 121 H, Calcium 10.2, Magnesium 1.8, Total Bilirubin 1.2, AST 140 H, ALT 46, Alkaline Phosphatase 173 H, Troponin I < 0.01, NT-Pro-B Natriuret Pep 123, Total Protein 8.3 H D, Albumin 4.5, Globulin 3.8 H, Albumin/Globulin Ratio 1.2, Lipase 80 03/20/25 12:31: Ammonia 23 03/20/25 13:30: Urine Color Yellow, Urine Appearance Clear, Urine pH 6.0, Ur Specific [place] 1.010, Urine Protein Negative, Urine Glucose (UA) 3+, Urine Ketones Negative, Urine Blood Negative, Urine Nitrate Negative, Urine Bilirubin Negative, Urine Urobilinogen 0.2, Ur Leukocyte Esterase Negative, Urine RBC None, Urine WBC None, Ur Squamous Epith Cells Occasional, Urine Bacteria None 03/20/25 12:18 03/20/25 12:18 Orders (Tests/Meds): ED MEDICATIONS Discontinued Medications Generic Name Dose Route Start Last Admin Trade Name Manish PRN Reason Stop Dose Admin Iopamidol 75 ml 03/20/25 12:51 03/20/25 13:06 Iopamidol-370 (76%);100ml Bottle IV 03/20/25 12:52 75 ml ONCE ONE Administration Iopamidol 70 ml 03/20/25 13:11 03/20/25 13:15 Iopamidol-370 (76%);100ml Bottle IV 03/20/25 13:12 70 ml ONCE ONE Administration Morphine Sulfate 4 mg 03/20/25 12:33 03/20/25 12:36 Morphine 4mg/Ml Syringe IV 03/20/25 12:34 4 mg ONCE ONE Administration Ondansetron HCl 4 mg 03/20/25 12:33 03/20/25 12:36 Ondansetron 4mg/2ml Vial IV 03/20/25 12:34 4 mg ONCE ONE Administration Sodium Chloride 10 ml 03/20/25 12:51 03/20/25 12:52 Sodium Chloride 0.9% 10ml Syr (Rad Only) IV 03/20/25 12:52 10 ml ONCE ONE Administration Sodium Chloride 10 ml 03/20/25 13:11 03/20/25 13:12 Sodium Chloride 0.9% 10ml Syr (Rad Only) IV 03/20/25 13:12 10 ml ONCE ONE Administration Sodium Chloride 50 ml 03/20/25 13:11 03/20/25 13:12 0.9 % Sodium Chloride 50 Ml Vial IV 03/20/25 13:12 50 ml ONCE ONE Administration ORDERS Category Date Time Status CT abdomen pelvis w con Stat Cat Scan 03/20/25 12:22 Completed CTA Chest [CT angio chest PE protocol] Stat Cat Scan 03/20/25 13:02 Completed Chest XR -- portable [XR chest portable] Stat Exams 03/20/25 12:23 Completed Ammonia Stat Lab 03/20/25 12:31 Completed BNP [NT Pro Brain Natriuretic Pep.] Stat Lab 03/20/25 12:18 Completed CBC [Complete Blood Count Auto Diff] Stat Lab 03/20/25 12:18 Completed Comprehensive Metabolic Panel Stat Lab 03/20/25 12:18 Completed D-Dimer Stat Lab 03/20/25 12:18 Completed Lipase Stat Lab 03/20/25 12:18 Completed Magnesium Stat Lab 03/20/25 12:18 Completed PTT [Activated Partial Thrombo Time] Stat Lab 03/20/25 12:18 Completed Trop I [Troponin I] Stat Lab 03/20/25 12:18 Completed Urinalysis and Microscopic Stat Lab 03/20/25 13:30 Completed HEART Score History (anamnesis): Moderately suspicious ECG: Non-specific disturbance Age: >65 years Risk factors: 1-2 risk factors Troponin: </= normal limit HEART Score: 5 Medical Decision Narrative: patient is a 64-year-old male presenting to the emergency department for evaluation of abdominal pain and chest pressure starting yesterday. Patient is hemodynamically stable and nontoxic-appearing upon arrival, afebrile. Differential diagnosis includes ascites, cholelithiasis, ACS, among others. Workup will be conducted with hematologic labs, specific imaging. Initial inventions include nausea meds, analgesics.. Initial workup reviewed by sc hematologic labs are remarkable for elevated AST and ALT and alk phos. Reviewed previous imaging from which showed no evidence of necrosis. 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 The plan was to refer patient to Dr. Jimenez for treatment of Atezo and Y90. Imaging informally interpreted by Dr. Paredes as possible worsening hepatic cellular carcinoma. Report reads that patient has area of necrosis or abscess and possible cholangiocarcinoma. Discussed case with Dr. Chaavrria who discussed with the surgeon on-call and they both decided to bring patient to [facility] for evaluation of this abscess versus necrosis. They will evaluate to see if patient needs surgical intervention. Discussed with patient and family that he will be going to [facility] via EMS. <Taj Paredes MD - Last Filed: 03/20/25 16:57> Vital Signs: 03/20/25 12:19 03/20/25 13:31 03/20/25 14:00 Temperature 97.9 F Temperature Source Oral Pulse Rate 62 65 Pulse Rate [Right] 66 Respiratory Rate 18 Blood Pressure 144/56 H 162/60 H Blood Pressure [Right Arm] 162/77 H Blood Pressure Mean Blood Pressure Mean [Right Arm] 105 02 Sat by Pulse Oximetry 97 94 L 97 Oxygen Delivery Method Room Air 03/20/25 14:30 03/20/25 14:38 03/20/25 15:00 Temperature 98.1 F Temperature Source Pulse Rate 62 63 60 Pulse Rate [Right] Respiratory Rate 20 Blood Pressure 157/56 H 157/56 H 149/55 H Blood Pressure [Right Arm] Blood Pressure Mean 86 Blood Pressure Mean [Right Arm] 02 Sat by Pulse Oximetry 98 98 Oxygen Delivery Method Room Air Lab Data Lab Results 03/20/25 12:18: WBC 6.5, RBC 4.84, Hgb 16.0, Hct 46.8, MCV 96.7 H, MCH 33.1 H, MCHC 34.2, RDW 16.2, Plt Count 90 L, MPV 11.4 H, Neut % (Auto) 57.0, Lymph % (Auto) 26.4, Routt % (Auto) 14.6 H, Eos % (Auto) 1.1, Baso % (Auto) 0.6, Neut # (Auto) 3.7, Lymph # (Auto) 1.7, [place] # (Auto) 1.0, Eos # (Auto) 0.1, Baso # (Auto) 0.0, APTT 26.4, D-Dimer 0.99 H, Sodium 136, Potassium 3.9, Chloride 101, Carbon Dioxide 30, Anion Gap 8.9, BUN 20, Creatinine 0.80, Estimated Creat Clear 70, Estimated GFR 97, Est GFR ( Amer) 117, Glucose 121 H, Calcium 10.2, Magnesium 1.8, Total Bilirubin 1.2, AST 140 H, ALT 46, Alkaline Phosphatase 173 H, Troponin I < 0.01, NT-Pro-B Natriuret Pep 123, Total Protein 8.3 H D, Albumin 4.5, Globulin 3.8 H, Albumin/Globulin Ratio 1.2, Lipase 80 03/20/25 12:31: Ammonia 23 03/20/25 13:30: Urine Color Yellow, Urine Appearance Clear, Urine pH 6.0, Ur Specific [place] 1.010, Urine Protein Negative, Urine Glucose (UA) 3+, Urine Ketones Negative, Urine Blood Negative, Urine Nitrate Negative, Urine Bilirubin Negative, Urine Urobilinogen 0.2, Ur Leukocyte Esterase Negative, Urine RBC None, Urine WBC None, Ur Squamous Epith Cells Occasional, Urine Bacteria None Orders (Tests/Meds): ED MEDICATIONS Discontinued Medications Generic Name Dose Route Start Last Admin Trade Name Freq PRN Reason Stop Dose Admin Iopamidol 75 ml 03/20/25 12:51 03/20/25 13:06 Iopamidol-370 (76%);100ml Bottle IV 03/20/25 12:52 75 ml ONCE ONE Administration Iopamidol 70 ml 03/20/25 13:11 03/20/25 13:15 Iopamidol-370 (76%);100ml Bottle IV 03/20/25 13:12 70 ml ONCE ONE Administration Morphine Sulfate 4 mg 03/20/25 12:33 03/20/25 12:36 Morphine 4mg/Ml Syringe IV 03/20/25 12:34 4 mg ONCE ONE Administration Ondansetron HCl 4 mg 03/20/25 12:33 03/20/25 12:36 Ondansetron 4mg/2ml Vial IV 03/20/25 12:34 4 mg ONCE ONE Administration Sodium Chloride 10 ml 03/20/25 12:51 03/20/25 12:52 Sodium Chloride 0.9% 10ml Syr (Rad Only) IV 03/20/25 12:52 10 ml ONCE ONE Administration Sodium Chloride 10 ml 03/20/25 13:11 03/20/25 13:12 Sodium Chloride 0.9% 10ml Syr (Rad Only) IV 03/20/25 13:12 10 ml ONCE ONE Administration Sodium Chloride 50 ml 03/20/25 13:11 03/20/25 13:12 0.9 % Sodium Chloride 50 Ml Vial IV 03/20/25 13:12 50 ml ONCE ONE Administration ORDERS Category Date Time Status CT abdomen pelvis w con Stat Cat Scan 03/20/25 12:22 Completed CTA Chest [CT angio chest PE protocol] Stat Cat Scan 03/20/25 13:02 Completed Chest XR -- portable [XR chest portable] Stat Exams 03/20/25 12:23 Completed Ammonia Stat Lab 03/20/25 12:31 Completed BNP [NT Pro Brain Natriuretic Pep.] Stat Lab 03/20/25 12:18 Completed CBC [Complete Blood Count Auto Diff] Stat Lab 03/20/25 12:18 Completed Comprehensive Metabolic Panel Stat Lab 03/20/25 12:18 Completed D-Dimer Stat Lab 03/20/25 12:18 Completed Lipase Stat Lab 03/20/25 12:18 Completed Magnesium Stat Lab 03/20/25 12:18 Completed PTT [Activated Partial Thrombo Time] Stat Lab 03/20/25 12:18 Completed Trop I [Troponin I] Stat Lab 03/20/25 12:18 Completed Urinalysis and Microscopic Stat Lab 03/20/25 13:30 Completed HEART Score HEART Score: 5 Medical Decision Narrative: patient is a 64-year-old male presenting to the emergency department for evaluation of abdominal pain and chest pressure starting yesterday. Patient is hemodynamically stable and nontoxic-appearing upon arrival, afebrile. Differential diagnosis includes ascites, cholelithiasis, ACS, among others. Workup will be conducted with hematologic labs, specific imaging. Initial inventions include nausea meds, analgesics.. Initial workup reviewed by sc hematologic labs are remarkable for elevated AST and ALT and alk phos. Reviewed previous imaging from [facility] which showed no evidence of necrosis. 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 The plan was to refer patient to Dr. Jimenez for treatment of Atezo and Y90. Imaging informally interpreted by Dr. Pardees as possible worsening hepatic cellular carcinoma. Report reads that patient has area of necrosis or abscess and possible cholangiocarcinoma. Discussed case with Dr. Chavarria who discussed with the surgeon on-call and they both decided to bring patient to [facility] for evaluation of this abscess versus necrosis. They will evaluate to see if patient needs surgical intervention. Discussed with patient and family that he will be going to [facility] via EMS. I was consulted by the ALEX, and we discussed the complexity of the problems being addressed. I approve the treatment and management plan for this patient's care in the emergency department, thus performing a substantive portion of the medical decision making. Taj Paredes MD Critical Care <Taj Paredes MD - Last Filed: 03/20/25 16:57> Critical Care Time Critical Care Time: No
[2025-03-20 12:30] LABS: Hematocrit 46.8 % (42.0-52.0); Hemoglobin 16.0 g/dL (14.1-18.0); Immature Granulocytes % 0.3 %; Mean Corpuscular HGB Conc 34.2 g/dL (31.8-35.4); Mean Corpuscular Hemoglobin 33.1 pg (27.0-31.2); Mean Corpuscular Volume 96.7 fl (80-94); Nucleated Red Blood Cells % 0 %; Platelet Count 90 K/mm3 (142-424); Red Blood Count 4.84 M/mm3 (4.60-6.20); Red Cell Distribution Width-SD 58.0 fL; White Blood Count 6.5 K/mm3 (4.8-10.8)
[2025-03-20 12:33] LABS: Albumin Level 4.5 g/dl (3.5-5.0); Chloride 101 mmol/L (98-107); Potassium 3.9 mmoL/L (3.5-5.1); Sodium 136 mmol/L (136-145)
[2025-03-20 12:35] LABS: Alanine Aminotransferase 46 U/L (12-78); Aspartate Amino Transferase 140 U/L (17-59); Blood Urea Nitrogen 20 mg/dl (9-20); Creatinine Clearance Estimated 70 mL/min (50-200); Creatinine,Serum 0.80 mg/dl (0.66-1.25); Estimated Glomerular Filt Rate 97 ml/min (>60); GFR (African American) 117 ML/MIN (>60)
[2025-03-20 12:36] LABS: Albumin/Globulin Ratio 1.2 (1.1-1.8); Alkaline Phosphatase 173 U/L (38-126); Anion Gap 8.9 mEq/L (5-15); Bilirubin,Total 1.2 mg/dl (0.2-1.3); Calcium 10.2 mg/dl (8.4-10.2); Carbon Dioxide 30 mmol/L (22.0-30.0); Globulin 3.8 g/dL (1.3-3.2); Glucose 121 mg/dl (74-100); Lipase 80 U/L (23-300); Magnesium 1.8 mg/dl (1.6-2.3); Total Protein,Serum 8.3 g/dl (6.3-8.2)
[2025-03-20] MEDS: ONDANSETRON 4MG/2ML VIAL 4 MG IV (12:36)
[2025-03-20] MEDS: MORPHINE 4MG/ML SYRINGE 4 MG IV (12:36)
[2025-03-20 12:39] LABS: Activated Partial Thrombo Time 26.4 seconds (22.8-30.6)
[2025-03-20 12:45] LABS: NT Pro Brain Natriuretic Pep. 123 pg/mL (0-125)
[2025-03-20 12:46] LABS: Ammonia 23 umol/L (9-30)
[2025-03-20] MEDS: SODIUM CHLORIDE 0.9% 10ML SYR (RAD ONLY) 10 ML IV ×2 (12:52→13:12)
[2025-03-20 12:54] LABS: Troponin I < 0.01 ng/ml (0.00-0.034)
[2025-03-20 12:58] LABS: D-Dimer 0.99 ug/mL (0.0-0.5)
--- NOTE | 2025-03-20 13:02 | CT_ITS ---
FINAL REPORT TECHNIQUE: Postcontrast axial images of the chest were performed in a CTA protocol. This study was performed with techniques to keep radiation doses as low as reasonably achievable, (ALARA). Individualized dose reduction technique using automated exposure control or adjustment of mA and/or kV according to the patient's size were employed. CLINICAL HISTORY: elevated dimer COMPARISON: 11/22/2024 FINDINGS: The heart is normal in size. No adenopathy is identified. No pleural or pericardial effusion is identified. The thoracic aorta is normal in caliber with no focal aneurysm or dissection identified. There is no filling defect to suggest pulmonary embolism. There is mild dependent atelectasis. There is a medial right lower lobe nodule on image 62 which is less well-seen on today's exam. This may be partially calcified, granuloma strongly favored. There is calcified scarring at the lung apices. IMPRESSION: No evidence for PE on this exam. No acute lung disease. Reviewed, Interpreted and Dictated by Peggy Price MD Transcribed by Noris Peters Authenticated and [facility]
[2025-03-20] MEDS: IOPAMIDOL-370 (76%);100ML BOTTLE 75 ML IV (13:06)
[2025-03-20] MEDS: 0.9 % SODIUM CHLORIDE 50 ML VIAL IV (13:12)
[2025-03-20] MEDS: IOPAMIDOL-370 (76%);100ML BOTTLE 70 ML IV (13:15)
[2025-03-20 13:31] VITALS: BP 144/56; PULSE 62; O2SAT 94
[2025-03-20 13:38] LABS: Microscopic, Urine URINE MICROSCOPIC (MICROSCOPIC)
[2025-03-20 13:46] LABS: Bilirubin,Urine Negative (Negative); Color,Urine YELLOW (Yellow); Glucose,Urine (UA) 3+ (Negative); Ketones,Urine Negative (Negative); Leukocyte Esterase,Urine Negative (Negative); PH,Urine 6.0 (5.0-8.5); Protein,Urine Negative (Negative); Specific Gravity, Urine 1.010 (1.005-1.030); Urobilinogen,Urine 0.2 EU/dl (0.2)
[2025-03-20 14:00] VITALS: BP 162/60; PULSE 65; O2SAT 97
[2025-03-20 14:01] LABS: Squamous Epithelial Cell,Urine Occasional #/hpf (0-5)
[2025-03-20 14:30] VITALS: BP 157/56; PULSE 62; O2SAT 98
--- NOTE | 2025-03-20 14:35 | PC.NURSE ---
called to [employer] to [facility] and get a disk printed at this time.
[2025-03-20 14:38] VITALS: BP 157/56; PULSE 63; RESP 20; TEMP 36.7; O2SAT 97
--- NOTE | 2025-03-20 14:55 | PC.NURSE ---
called report to norma harvey at [facility]
[2025-03-20 15:00] VITALS: BP 149/55; PULSE 60; O2SAT 98
--- NOTE | 2025-03-20 15:02 | PC.NURSE ---
EMS was called about this transfer to [facility]
[2025-03-22 15:32] LABS: T4 (Thyroxine) 4.9 ug/dl (5.53-11.0)
[2025-03-22 15:45] LABS: Thyroid Stimulating Hormone 0.22 uIU/mL (0.465-4.68)
== END 2025-03-20 15:30 | disposition home or self-care (01) ==
PROVIDERS: Internal Medicine Medical Oncology; Nurse Practitioner; Emergency Provider Student in an Organized Health Care Education/Training Program; PCP Family Medicine
DX: C22.0 Liver cell carcinoma (principal); I11.9 Hypertensive heart disease without heart failure; E78.5 Hyperlipidemia, unspecified; I25.10 Atherosclerotic heart disease of native coronary artery without angina pectoris
CPT/HCPCS: 71045; 71275; 74177; 80053; 81001; 82140; 83690; 83735; 83880; 84436; 84443; 84484; 85025; 85378; 85730; 93005; 96374; 96375; 99285; J2270; J2405; Q9967

== ENCOUNTER 2025-03-29 09:00 | Outpatient (CLI) | payer MEDICARE, MEDICAID, SELFPAY ==
--- OUTSIDE RECORDS SUMMARY | 2016-03-04 08:15 | XMS_ITS | Encounter Summary ---
Author Organization [facility] [place] [address] Care Team Providers Care Fermenter Helper Name Role Phone Jan Sin MD Unavailable [phone] Carlton James DO Primary Care Provide r Macario Pryor MD Unavailable Unavailabl e Encounter Details Date Type Department Care Team (Latest Contact Info) Description 03/04/2016 8:15 AM EDT Hospital Encounter [facility] [address] [place] [address] Poppy Quintero MD [address] [place], [place] [id number] Left without seen Social History Tobacco Use [...] 3:32 PM EDT Jer Sena RN * [place] Suicide Severity Rating Scale (Q shift for [...] documented as of this encounter Care Teams Fermenter Helper Relationship Specialty Start Date End Date Carlton James DO [address] [address] PCP - General Family Medicine 05/01/15 11/26/16 Macario Pryor MD [address] [place] [address] [place] [address] PCP - Hematology/Oncology Internal Medicine-Medical Oncology 11/12/15 Jan Sin MD [address] [place] [address] [place] [id number] Internal Medicine-Cardiovascul ar Disease 08/28/14 documented as of this encounter
--- OUTSIDE RECORDS SUMMARY | 2025-02-09 11:02 | XMS_ITS | Encounter Summary ---
Author Organization [facility] Address [address] [place] [address] Care Team Providers Care Associate Store Manager Name Role Phone Unavailable Primary Care Provider Unavailabl e Reason for Referral * Imaging (Routine) - Closed Specialty Diagnoses / Procedures Referred By Vicente alaniz Referred To Contact Radiology Diagnoses Abnormality of alphafetoprotein Other specified abnormal findings of blood chemistry Unspecified cirrhosis of liver (CMS/HCC) Procedures CT Abdomen w and wo IV Contrast Isabella Saucedo APRN [address] [place] [address] Phone: tel: fax: Referral ID Status Reason Start Date Expiration Date Visits Re quested Visits Authorized [id number] Closed 01/18/2025 07/20/2026 1 1 Reason for Visit * Imaging (Routine) - Closed Specialty Diagnoses / Procedures Referred By Vicente alaniz Referred To Contact Radiology Diagnoses Abnormality of alphafetoprotein Other specified abnormal findings of blood chemistry Unspecified cirrhosis of liver (CMS/HCC) Procedures CT Abdomen w and wo IV Contrast Isabella Saucedo APRN [address] [place] [address] Phone: tel: fax: Referral ID Status Reason Start Date Expiration Date Visits Re quested Visits Authorized [id number] Closed 01/18/2025 07/20/2026 1 1 Encounter Details Date Type Department Care Team (Latest Contact Info) Description 02/09/2025 11:02 AM EDT - 02/09/2025 11:59 PM EDT Hospital Encounter [facility] [address] [place] [address] Abnormality of alphafetoprotein; Other specified [...] are consistent with and integrated into the [place] [employer] Liver Diseases [...] are consistent with and integrated into the [place] Associationfor the Study of Liver Diseases (AASLD) [...] on 02/09/2025 3:29 PM us Isabella Saucedo LOAN COORDINATOR IMG CT PROCEDURES Final Re sult documented [...]
--- OUTSIDE RECORDS SUMMARY | 2025-03-14 10:00 | XMS_ITS | Encounter Summary ---
Author Organization Healthcare Address [address] [place] [address] Care Team Providers Care Network Communications Engineer Name Role Phone Isabella Saucedo SPOOL HAULER Unavailable [phone] Jeannie Mcmillan RN Unavailable [phone] Ebony Shoemaker Unavailable [phone] Reason for Visit * Reason Comments Liver Lesion * Consultation (Routine) - Closed Specialty Diagnoses / Procedures Referred By Vicente t Referred To Contact Transplant Diagnoses Elevated AFP Liver lesion Hepatic cirrhosis, unspecified hepatic cirrhosis type, unspecified whether ascites present (CMS/HCC) Isabella Saucedo, SPOOL HAULER [address] [place] [address] Phone: tel: fax: [facility] [address] [address] Phone: tel: fax: Referral ID Status Reason Start Date Expiration Date V isits Requested Visits Authorized [id number] Closed Specialty Services Required 03/06/2025 09/05/2026 1 1 Encounter Details Date Type Department Care Team (Late st Contact Info) Description 03/14/2025 10:00 AM EDT Office Visit [facility] [address] [address] Peter Do MD [address] [address] HCC (hepatocellular carcinoma) (Primary Dx) [...] : 1960 Referring: Isabella Saucedo Coordinator: Angelita Reevse Chief Complaint: Evaluation for LI-RADS TIV HISTORY OF PRESENT ILLNESS: The patient is a 64 y.o.-year-old male w/ PMHx cirrhosis, [place], CAD s/p CABG x4 with re-stenosis withrevision, [...] Tobacco Use: High Risk (12/27/2024) Received from [facility] Patient History Smoking Tobacco Use: Every [...] a 64 y.o.-year-old male w/ PMHx cirrhosis, [place], CAD s/p CABG x4 with re-stenosis withrevision, [...] SURGERY 1997 CARDIAC SURGERY 2003 CARDIAC SURGERY 2004 HERNIA REPAIR 2000 Chest Area NECK SURGERY 2024 [3] History [...] documented as of this encounter Care Teams Network Communications Engineer Relationship Specialty Start Date End Date Isabella Saucedo APRN [address] [place] [phone] Referring Physician 02/26/25 Jeannie Mcmillan, RN CH-TRANSPLANT ADMINISTRATION [address] [place] [address] Registered Nurse Transplant Surgery 03/08/25 [place] [address] Registered Nurse Transplant Surgery 03/08/25 documented as of this encounter
--- OUTSIDE RECORDS SUMMARY | 2025-03-14 11:20 | XMS_ITS | Encounter Summary ---
Author Organization Healthcare Address [address] [place] [address] Care Team Providers Care Newspaper Illustrator Name Role Phone LewisIsabella Phong DELICATESSEN GOODS STOCK CLERK Unavailable [phone] Jeannie Mcmillan RN Unavailable [phone] Ebony Shoemaker Unavailable [phone] Reason for Referral * Imaging (Routine) - Closed Specialty Diagnoses / Procedures Referred By Contac t Referred To Contact Radiology Diagnoses Elevated AFP Liver lesion Hepatic cirrhosis, unspecified hepatic cirrhosis type, unspecified whether ascites present (CMS/HCC) Procedures CT CHEST WO IV CONTRAST Peter Do MD [address] [address] Phone: tel: fax: Referral ID Status Reason Start Date Expiration Date Visits Re quested Visits Authorized [id number] Closed 03/14/2025 09/13/2026 1 1 Reason for Visit * Imaging (Routine) - Closed Specialty Diagnoses / Procedures Referred By Contac t Referred To Contact Radiology Diagnoses Elevated AFP Liver lesion Hepatic cirrhosis, unspecified hepatic cirrhosis type, unspecified whether ascites present (CMS/HCC) Procedures CT CHEST WO IV CONTRAST Peter Do MD [address] [address] Phone: tel: fax: Referral ID Status Reason Start Date Expiration Date Visits Re quested Visits Authorized [id number] Closed 03/14/2025 09/13/2026 1 1 Encounter Details Date Type Department Care Team (Latest Contact Info) Description 03/14/2025 11:20 AM EDT - 03/14/2025 11:59 PM EDT Hospital Encounter [facility] [address] [place] [address] Elevated AFP; Liver lesion; Hepatic [...] Score 0 03/14/2025 9:07 AM EDT Shari Moseely * Calculated C-SSRS Risk Score (Lifetime/Recent) Answer [...] documented as of this encounter Care Teams Newspaper Illustrator Relationship Specialty Start Date End Date Isabella Saucedo APRN [address] [place] [address] Referring Physician 02/26/25 Jeannie Mcmillan, RN [facility] [address] [place] [address] Registered Nurse Transplant Surgery 03/08/25 [place] [address] Registered Nurse Transplant Surgery 03/08/25 documented as of this encounter
--- OUTSIDE RECORDS SUMMARY | 2025-03-20 16:39 | XMS_ITS | Encounter Summary ---
Author Organization Healthcare Address [address] [place] [address] Care Team Providers Care Office Lead Name Role Phone Isabella Saucedo POTLINE MONITOR Unavailable [phone] Jeannie Mcmillan RN Unavailable [phone] Ebony Shoemaker Unavailable [phone] Pcp, No Primary Care Provider Unavailabl e Reason for Visit * Reason Comments Abdominal Pain * Auth/Cert (Routine) Specialty Diagnoses / Procedures Referred By Vicente alaniz Referred To Contact Diagnoses Hepatocellular carcinoma hepatocellular carcinoma Navi Tripathi MD [address] [place] [address] Phone: tel: fax: [facility] Inpatient [address] [place] [address] Phone: tel: Referral ID Status Reason Start Date Expiration Date Visits Re quested Visits Authorized [id number] 1 1 Encounter Details Date Type Department Care Team (Latest Contact Info) Description 03/20/2025 4:39 PM EDT - 03/21/2025 6:51 PM EDT Hospital Encounter [facility] [address] [place] [address] Clotilde Saleh MD [address] [place] [address] Navi Tripathi MD [address] [place] [address] Lolly Flaherty MD [address] [place] [phone] Epigastric pain (Primary Dx); Hepatocellular carcinoma; Alcoholic [...] mouth nightly. 60 tablet 5 03/21/2025 Santana Zuluagata 100-62.5-25 MCG/ACT aerosol powder INHALE 1 PUFF INTO THE LUNGS DAILY AT 0900. documented as of this encounter Miscellaneous Notes * Discharge Summary - Lolly Flaherty MD - 03/21/2025 5:56 PM EDT Hospitalization Admit Date/Time: 03/20/2025 4:39 PM Admitting Attending: Navi Tripathi Discharge Date: Discharge Attending Physician: Lolly Flaherty MD PCP name and Address: Pcp, No [address] [facility] / [facility] [address] Referring provider name and address: Monalisa Elizondo, POTLINE MONITOR [address] [place] [address] Chief Concern, Brief History of Present Illness, [...] Ellipta 100-62.5-25 MCG/ACT aerosol powder Generic drug: Btzzscqhcqu-Hddoyvrhy-Zcivbl INHALE 1 PUFF INTO THE LUNGS DAILY AT 0900. Where to Get Your Medications These medications were sent to [facility] - [place], [place] - [address] [facility] [address] calcium carbonate 500 MG chewable tablet HYDROmorphone [...] 04, 2025 at 1:00PM Dr. Rodney Gonzáles [facility] Specialty Clinic (Oncology) [address] [place] [address] * Care Plan - Sandy Moseley RN [...] completed Intervention: Prevent Skin Injury Flowsheets (Taken 03/21/2025 1032) Body Position: weight shifting Skin Protection: incontinence pads utilized Intervention: Prevent and Manage VTE (Venous Thromboembolism) Risk Flowsheets (Taken 03/21/2025 1032) VTE Prevention/Management: medication Intervention: Prevent Infection Flowsheets (Taken 03/21/2025 1032) Infection Prevention: environmental surveillance performed hand hygiene [...] (see comments) Patient/Family Anticipated Services at Transition: case liner Patient/Family Anticipates Transition to: home with family [...] Intervention: Develop Pain Management Plan Flowsheets (Taken 03/21/20251031) Pain Management Interventions: medication (see MAR) relaxation techniques promoted Intervention: Prevent or Manage Pain Flowsheets (Taken 03/21/20251031) Sensory Stimulation Regulation: television on Bowel Elimination Promotion: adequate fluid intake promoted Sleep/Rest Enhancement: awakenings minimized Medication Review/Management: medications reviewed * Consults - Alonzo Santos - 03/21/2025 10:06 AM EDT Pastoral Care Note: Patient was with his and grandson on the bed side when boat mechanic visited and they were appreciative of boat mechanic's visit. Prayer and nicole is important to them. Machine Tool Rebuilder supported them emotionallyand spiritually. Referral From: Machine Tool Rebuilder Initiated Pastoral Care Provided For: Patient, Spouse, [...] and gratitude, Emotional support, Introduced Patient/Family to [employer], Supportive Listening, Spiritual support Pastoral Care Outcomes: Patient Outcomes: Expresses acceptance, Demonstrates lower level of Anxious(ness), Is knowledgeableabout [employer], Being at peace, Demonstrates and/or verbalizes increased comfort, Endorses increased sense of connection, Expresses intent to participate/comply in plan of care, Expresses e motionally release, Is functionally engaged in meaning making, Gratitude, Expresses feeling spiritually nurtured, Communicates increased satisfaction with hospital experience, Identifies spiritual orreligious practices as helpful, Expresses increased trust in medical team and/or plan of care, Appreciative of Machine Tool Rebuilder Support, Expresses being seen and heard Cosigned by Azeb Worthy at 03/23/2025 10:36 AM EDT Associated attestation - Azeb Worthy - 03/23/2025 10:36 AM EDT This is to attest boat mechanic internal medicine physician assistant chart note has been reviewed and okayed. [...] Intervention: Optimize Psychosocial Wellbeing Flowsheets (Taken 03/21/2025 035) Spiritual Activities Assistance: affirmation provided Intervention: Develop Pain Management Plan Flowsheets (Taken 03/21/2025 035) Pain Management Interventions: medication (see MAR) * H&P - Navi Tripathi MD - 03/20/2025 7:52 PM EDTAssociated Order(s): Consult to [facility] Consult to [facility] Consult performed by: Navi Tripathi MD Consult [...] the pain caused him to present to [facility] ED, where CT scan showed interval [...] 98%. Results Review {Vanishing Link Review Results :[id number] I have reviewed the latest lab and [...] 64 y.o. male with history of cirrhosis, MS, CAD s/p CABG x4 with re-stenosis with revision, COPD, HTN, HFmrEF, central cord syndrome, inguinal hernia, cholelithiasis, recently disagnosed HCC with new central necrosis of tumor on CT at OSH today who presents with Abdominal Pain. Patient took prescription medication prior to arrival. 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 Patient reports epigastric, LUQ, and RUQ abdominal pain and pressure that began last night. He presented to [facility] for evaluation. He had a CT [...] noted that the chronic conditions includes cirrhosis, MS, CAD s/p CABG x4 with re-stenosis with [...] to 03/20/20251945 Date/Time Order Dose Route Action 03/20/20251852 EDT fentaNYL (Sublimaze) injection 50 mcg 50 [...] Not Give Nicotine Replacement Until discontinued Acknowledged NAVI TRIPATHI SUKUMAR A 03/20/251945 Full code Continuous Acknowledged NAVI TRIPATHI SUKUMAR A 03/20/251945 Sequential compression device Until discontinued Comments: SCDs must be in place and turned on EXCEPT when ACTIVELY ambulating. Acknowledged NAVI TRIPATHI SUKUMAR A 03/20/251945 Admit to inpatient Once Completed MYNORVI JESSICANAVI SUKUMAR A 03/20/251945 Mobility Orders Until discontinued Acknowledged MYNORVI JESSICANAVI SUKUMAR A 03/20/251945 Notify physician (specify parameters) Until discontinued Acknowledged VI TRIPATHIRICIA SUKUMAR A 03/20/251945 Insert peripheral IV Once Placed in And Linked Group Completed MYNORVINAVI SUKUMAR A 03/20/251945 Saline lock IV Once Placed in And Linked Group Completed MYNORVI JESSICANAVI SUKUMAR A 03/20/251917 Off-Cycle Tray Request for Patient Once Completed REBMEN, ADRIENNE A 03/20/251917 Adult diet Diet texture: Regular Diet effective now Acknowledged NAVI TRIPATHI SUKUMAR A 03/20/251900 Consult to [facility] Medicine [facility] Once Specialty: Internal Medicine Provider: (Not yet assigned) Acknowledged JEFRY TRIPATHIIA SUKUMAR A 03/20/251900 ED to floor bed request Once Completed JOLIE ADRIENNE A 03/20/251741 Once Provider: (Not yet assigned) Canceled REBSAMEN, ADRIENNE A 03/20/25 171 Troponin now and 120 min STAT Final result REBMEN ADRIENNE A 03/20/25 171 EKG now - STAT (adult) Once Final result MADISONMEN ADRIENNE A 03/20/251715 Hepatitis C Antibody - ED Once Final result JOLIE ADRIENNE A 03/20/251715 ED Protocol - HIV 1/2 Antibody/Antigen Screen Once Final result JOLIE ADRIENNE A 03/20/251715 ED HIV 1/2 Antibody/Antigen Screen w/Reflex to HIV 1/2 Differentiation PROCEDURE ONCE Final result REBSAMEN, ADRIENNE A 03/20/25 171 APTT STAT Final result REBSAMEN, ADRIENNE A 03/20/25 171 C-Reactive protein STAT Final result REBSAMEN, ADRIENNE A 03/20/251715 CBC w/diff STAT Final result REBSAMEN, ADRIENNE A 03/20/25 171 CMP STAT Final result REBSAROSSY ADRIENNE A 03/20/25 171 PT-INR STAT Final result REBSAMEN, ADRIENNE A 03/20/25 171 Lipase STAT Final result REBMANDI ADRIENNE A 03/20/25 1716 Lactic acid, venous STAT Final [...] that began last night. Was seen at [facility] and had CT scan of chest [...] ESS resident, patient to be admitted [facility] medicine and transplant teamwill see him tomorrow. No needs overnight. [MR] 1904 Reached out to hospital medicine for admission [MR] 1917 They agree to admit patient to [facility] for multidisciplinary care. They will put in admissionorders and transfer him to [facility]. Patient updated on plan and provided ice cream. [MR] ED Course User Index [MR] Adrienne Moya PA [SO] Clotilde Saleh MD Clinical Impressions [...] Bed request comments: To be transferred to [facility] Admitting/Attending Physician: NAVI TRIPATHI [[id number]] Provider Care Team: MARVIN ELY 11 [[id number]] Are they the primary team?: [...] LAB COAGULATION METHOD 03/21/2025 7:00 AM EDT [facility] INR 1.1 0.9 - 1.1 LAB COAGULATION METHOD 03/21/2025 7:00 AM EDT [facility] Blood Venous blood specimen / Unknown Venipuncture / Unknown 03/21/2025 6:32 AM EDT 03/21/2025 6:43 AM EDT Narrative [facility] - 03/21/2025 7:00 AM EDT OPTIMAL INR RANGES FOR PATIENT ON ORAL ANTICOAGULANT THERAPY Prevention of venous thromboembolism INR 2.0 to 3.0 In patients with heart disease: Atrial fibrillation INR 2.0 to 3.0 Valvular heart disease INR 2.0 to 3.0 Tissue heart valves INR 2.0 to 3.0 Mechanical prosthetic valves INR 2.5 to 3.5 Prevention of recurrent MS INR 2.5 to 3.5 us Navi Tripathi MD LAB BLOOD ORDERABLE S Final Result [facility] [address] [place] [address] * (ABNORMAL) Comprehensive metabolic panel (03/21/2025 6:32 AM EDT) Glucose, Plasma 107(H) 74 - 99 mg/dL 03/21/2025 7:11 AM EDT [facility] BUN, Plasma 12 8 - 23 mg/dL 03/21/2025 7:11 AM EDT [facility] Creatinine, Plasma 0.77 0.70 - 1.20 mg/dL 03/21/2025 7:11 AM EDT [facility] BUN/Creatinine Ratio 16 03/21/2025 7:11 AM EDT [facility] Sodium, Plasma 139 136 - 145 mmol/L 03/21/2025 7:11 AM EDT [facility] Potassium, Plasma 4.6 3.6 - 4.9 mmol/L 03/21/2025 7:11 AM EDT [facility] Comment:Hemolyzed, result ma y be falsely increased. Chloride, Plasma 105 97 - 107 mmol/L 03/21/2025 7:11 AM EDT [facility] CO2, Plasma 23 22 - 29 mmol/L 03/21/2025 7:11 AM EDT [facility] Anion Gap 11 6 - 16 mmol/L 03/21/2025 7:11 AM EDT [facility] Total Calcium, Plasma 9.4 8.9 - 10.2 mg/dL 03/21/2025 7:11 AM EDT [facility] Total Protein 7.0 6.3 - 7.9 g/dL 03/21/2025 7:11 AM EDT [facility] Albumin, Plasma 3.6 3.5 - 5.2 g/dL 03/21/2025 7:11 AM EDT [facility] AST, Plasma 621(H) 10 - 50 U/L 03/21/2025 7:11 AM EDT [facility] Comment:Hemolyzed, result ma y be falsely increased. ALT, Plasma 48 10 - 50 U/L 03/21/2025 7:11 AM EDT [facility] Alkaline Phosphatase, Plasma 232(H) 40 - 115 U/L 03/21/2025 7:11 AM EDT [facility] Total Bilirubin, Plasma 0.6 0.2 - 1.1 mg/dL 03/21/2025 7:11 AM EDT [facility] eGFRcr 98.7 mL/min/1.7 3m*2 03/21/2025 7:11 AM EDT [facility] Comment:Reported eGFRcr in m L/min/1.73m2 is based the CKD-EPI 2020 equation that does not use a race coefficient. Blood Venous blood specimen / Unknown Venipuncture / Unknown 03/21/2025 6:32 AM EDT 03/21/2025 6:43 AM EDT us Navi Tripathi MD LAB BLOOD ORDERABLE S Final Result [facility] [address] [place] [address] * (ABNORMAL) CBC and Differential (03/21/2025 6:32 AM EDT) WBC Count 6.12 3.70 - 10.30 10*3/uL LAB HEMATOLOGY METHOD 03/21/2025 6:58 AM EDT [facility] RBC Count 4.62 4.60 - 6.10 10*6/uL LAB HEMATOLOGY METHOD 03/21/2025 6:58 AM EDT [facility] HGB 15.2 13.7 - 17.5 g/dL LAB HEMATOLOGY METHOD 03/21/2025 6:58 AM EDT [facility] HCT 45.4 40.0 - 51.0 % LAB HEMATOLOGY METHOD 03/21/2025 6:58 AM EDT [facility] Platelet Count 82(L) 155 - 369 10*3/uL LAB HEMATOLOGY METHOD 03/21/2025 6:58 AM EDT [facility] MCV 98 79 - 98 fL LAB HEMATOLOGY METHOD 03/21/2025 6:58 AM EDT [facility] MCH 32.9(H) 26.0 - 32.0 pg LAB HEMATOLOGY METHOD 03/21/2025 6:58 AM EDT [facility] MCHC 33.5 30.7 - 35.5 g/dL LAB HEMATOLOGY METHOD 03/21/2025 6:58 AM EDT [facility] RDW 16.8(H) 11.5 - 14.5 % LAB HEMATOLOGY METHOD 03/21/2025 6:58 AM EDT [facility] MPV 12.2 8.8 - 12.5 fL LAB HEMATOLOGY METHOD 03/21/2025 6:58 AM EDT [facility] nRBC 0.0 <=0.0 per 100 WBCs LAB HEMATOLOGY METHOD 03/21/2025 6:58 AM EDT [facility] Differential Type Automated LAB HEMATOLOGY METHOD 03/21/2025 6:58 AM EDT [facility] Neutrophils % 55 % LAB HEMATOLOGY METHOD 03/21/2025 6:58 AM EDT [facility] Lymphocytes % 24 % LAB HEMATOLOGY METHOD 03/21/2025 6:58 AM EDT [facility] Monocytes % 17 % LAB HEMATOLOGY METHOD 03/21/2025 6:58 AM EDT [facility] Eosinophils % 2 % LAB HEMATOLOGY METHOD 03/21/2025 6:58 AM EDT [facility] Basophils % 1 % LAB HEMATOLOGY METHOD 03/21/2025 6:58 AM EDT [facility] Immature Granulocytes % 1 % LAB HEMATOLOGY METHOD 03/21/2025 6:58 AM EDT [facility] Neutrophils Absolute 3.46 1.60 - 6.10 10*3/uL LAB HEMATOLOGY METHOD 03/21/2025 6:58 AM EDT [facility] Lymphocytes Absolute 1.45 1.20 - 3.90 10*3/uL LAB HEMATOLOGY METHOD 03/21/2025 6:58 AM EDT [facility] Monocytes Absolute 1.03(H) 0.30 - 0.90 10*3/uL LAB HEMATOLOGY METHOD 03/21/2025 6:58 AM EDT [facility] Eosinophils Absolute 0.11 0.00 - 0.50 10*3/uL LAB HEMATOLOGY METHOD 03/21/2025 6:58 AM EDT [facility] Basophils Absolute 0.04 0.00 - 0.10 10*3/uL LAB HEMATOLOGY METHOD 03/21/2025 6:58 AM EDT [facility] Immature Granulocytes Absolute 0.03 0.00 - 0.06 10*3/uL LAB HEMATOLOGY METHOD 03/21/2025 6:58 AM EDT [facility] Blood Venous blood specimen / Unknown Venipuncture / Unknown 03/21/2025 6:32 AM EDT 03/21/2025 6:43 AM EDT Narrative [facility] - 03/21/2025 6:58 AM EDT Therapeutic decision making should be based on absolute values, rather than percentages. Navi Tripathi MD LAB BLOOD ORDERABLE S Final Result [facility] [address] [place] [address] * Troponin T, High Sensitivity, 2 Hour, Plasma (03/20/2025 10:54 PM EDT) Troponin T, High Sensitivity, 2 Hour 10 <19 ng/L 03/20/2025 11:31 PM EDT [facility] Blood Venous blood specimen / Unknown Venipuncture / Unknown 03/20/2025 10:54 PM EDT 03/20/2025 11:04 PM EDT Navi Tripathi MD LAB BLOOD ORDERABLE S Final Result Performing Organization Address City/[facility] Co de Phone Number [facility] [address] [place] [address] * Troponin now and 120 min (03/20/2025 6:51 PM EDT) [facility] Troponin T, High Sensitivity, 0 Hour 9 <19 ng/L 03/20/2025 7:35 PM EDT [facility] Blood Venous blood specimen / Unknown Venipuncture / Unknown 03/20/2025 6:51 PM EDT 03/20/2025 7:09 PM EDT Adrienne HURTADO LAB BLOOD ORDERABLES Courtney l Result Performing Organization Address [facility] Co de Phone Number [facility] [address] [place] [address] * ED HIV 1/2 Antibody/Antigen Screen w/Reflex to HIV 1/2 Differentiation (03/20/2025 6:51 PM EDT) [facility] HIV 1 & 2 Antibody/Antigen Screen Non Reactive Non Reactive 03/20/2025 8:05 PM EDT [facility] Comment:Screening for HIV 1 & 2 antibodies, and P24 antigen is NONREACTIVE. No confirmatory testing is required. Blood Venous blood specimen / Unknown Venipuncture / Unknown 03/20/2025 6:51 PM EDT 03/20/2025 7:09 PM EDT us Adrienne HURTADO LAB BLOOD ORDERABLES Courtney l Result Performing Organization Address City/[facility] Co de Phone Number [facility] [address] [place] [address] * Hepatitis C Antibody - ED (03/20/2025 6:51 PM EDT) [facility] Hepatitis C Antibody Negative Negative 03/20/2025 8:01 PM EDT [facility] Blood Venous blood specimen / Unknown Venipuncture / Unknown 03/20/2025 6:51 PM EDT 03/20/2025 7:09 PM EDT Adrienne Driscoll [employer] LAB BLOOD ORDERABLES Courtney l Result Performing Organization Address City/[facility] Co de Phone Number [facility] [address] [place] [address] * APTT (03/20/2025 6:51 PM EDT) Pathologist [facility] aPTT 31 25 - 35 sec 03/20/2025 7:25 PM EDT [facility] Blood Venous blood specimen / Unknown Venipuncture / Unknown 03/20/2025 6:51 PM EDT 03/20/2025 7:08 PM EDT Adrienne Driscoll [email or web address] [place] LAB BLOOD ORDERABLES Courtney l Result Performing Organization Address [facility] de Phone Number [facility] [address] [place] [address] * C-Reactive protein (03/20/2025 6:51 PM EDT) [facility] CRP, Plasma 5.2 <=8.0 mg/L 03/20/2025 7:35 PM EDT [facility] Blood Venous blood specimen / Unknown Venipuncture / Unknown 03/20/2025 6:51 PM EDT 03/20/2025 7:09 PM EDT Narrative [facility] - 03/20/2025 7:35 PM EDT This CRP test is appropriate for assessment of infection, systemic inflammation and/or tissue injury. To assess cardiovascular disease risk order high sensitivity CRP (CRPH). [email or web address] [place] LAB BLOOD ORDERABLES Courtney l Result Performing Organization Address City/[facility] Co de Phone Number [facility] [address] [place] [address] * Lactic acid, venous (03/20/2025 6:51 PM EDT) Lactate, Venous, Whole Blood 1.7 0.5 - 2.2 mmol/L LAB HEMATOLOGY METHOD 03/20/2025 7:12 PM EDT [facility] Blood Venous blood specimen / Unknown Venipuncture / Unknown 03/20/2025 6:51 PM EDT 03/20/2025 7:08 PM EDT Adrienne A [email or web address] [place] LAB BLOOD ORDERABLES Courtney l Result [facility] [address] [place] [address] * Lipase (03/20/2025 6:51 PM EDT) Lipase, Plasma 19 19 - 63 U/L 03/20/2025 7:35 PM EDT [facility] Blood Venous blood specimen / Unknown Venipuncture / Unknown 03/20/2025 6:51 PM EDT 03/20/2025 7:09 PM EDT Adrienne A [employer] [facility] LAB BLOOD ORDERABLES Courtney l Result Performing Organization Address City/[facility] Co de Phone Number [facility] [address] [place] [address] * PT-INR (03/20/2025 6:51 PM EDT) Prothrombin Time 13.8 12.0 - 14.3 sec 03/20/2025 7:24 PM EDT [facility] INR 1.0 0.9 - 1.1 03/20/2025 7:24 PM EDT [facility] Blood Venous blood [...] INR 2.5 to 3.5 Prevention of recurrent MS INR 2.5 to 3.5 Adrienne A [email or web address] [place] LAB BLOOD ORDERABLES Courtney l Result Performing Organization Address City/[facility]/ZIP Co de Phone Number [facility] [address] [place] [address] * (ABNORMAL) CMP (03/20/2025 6:51 PM EDT) Glucose, Plasma 89 74 - 99 mg/dL 03/20/2025 7:47 PM EDT [facility] BUN, Plasma 15 8 - 23 mg/dL 03/20/2025 7:47 PM EDT [facility] Creatinine, Plasma 0.77 0.70 - 1.20 mg/dL 03/20/2025 7:47 PM EDT [facility] BUN/Creatinine Ratio 19 03/20/2025 7:47 PM EDT [facility] Sodium, Plasma 141 136 - 145 mmol/L 03/20/2025 7:47 PM EDT [facility] Potassium, Plasma 3.9 3.6 - 4.9 mmol/L 03/20/2025 7:47 PM EDT [facility] Chloride, Plasma 102 97 - 107 mmol/L 03/20/2025 7:47 PM EDT [facility] CO2, Plasma 26 22 - 29 mmol/L 03/20/2025 7:47 PM EDT [facility] Anion Gap 13 6 - 16 mmol/L 03/20/2025 7:47 PM EDT [facility] Total Calcium, Plasma 9.6 8.9 - 10.2 mg/dL 03/20/2025 7:47 PM EDT [facility] Total Protein 7.4 6.3 - 7.9 g/dL 03/20/2025 7:47 PM EDT [facility] Albumin, Plasma 3.7 3.5 - 5.2 g/dL 03/20/2025 7:47 PM EDT [facility] AST, Plasma 395(H) 10 - 50 U/L 03/20/2025 7:47 PM EDT [facility] Comment:Hemolyzed, result ma y be falsely increased. ALT, Plasma 43 10 - 50 U/L 03/20/2025 7:47 PM EDT [facility] Alkaline Phosphatase, Plasma 210(H) 40 - 115 U/L 03/20/2025 7:47 PM EDT [facility] Total Bilirubin, Plasma 0.7 0.2 - 1.1 mg/dL 03/20/2025 7:47 PM EDT [facility] eGFRcr 98.7 mL/min/1.7 3m*2 03/20/2025 7:47 PM EDT [facility] Comment:Reported eGFRcr in m L/min/1.73m2 is based the CKD-EPI 2020 equation that does not use a race coefficient. Blood Venous blood specimen / Unknown Venipuncture / Unknown 03/20/2025 6:51 PM EDT 03/20/2025 7:09 PM EDT Adrienne HURTADO LAB BLOOD ORDERABLES Courtney l Result [facility] [address] [place] [id number] * (ABNORMAL) CBC w/diff (03/20/2025 6:51 PM EDT) WBC Count 6.84 3.70 - 10.30 10*3/uL LAB HEMATOLOGY METHOD 03/20/2025 7:21 PM EDT [facility] RBC Count 4.63 4.60 - 6.10 10*6/uL LAB HEMATOLOGY METHOD 03/20/2025 7:21 PM EDT [facility] HGB 15.3 13.7 - 17.5 g/dL LAB HEMATOLOGY METHOD 03/20/2025 7:21 PM EDT [facility] HCT 44.8 40.0 - 51.0 % LAB HEMATOLOGY METHOD 03/20/2025 7:21 PM EDT [facility] Platelet Count 79(L) 155 - 369 10*3/uL LAB HEMATOLOGY METHOD 03/20/2025 7:21 PM EDT [facility] MCV 97 79 - 98 fL LAB HEMATOLOGY METHOD 03/20/2025 7:21 PM EDT [facility] MCH 33.0(H) 26.0 - 32.0 pg LAB HEMATOLOGY METHOD 03/20/2025 7:21 PM EDT [facility] MCHC 34.2 30.7 - 35.5 g/dL LAB HEMATOLOGY METHOD 03/20/2025 7:21 PM EDT [facility] RDW 16.5(H) 11.5 - 14.5 % LAB HEMATOLOGY METHOD 03/20/2025 7:21 PM EDT [facility] MPV 11.2 8.8 - 12.5 fL LAB HEMATOLOGY METHOD 03/20/2025 7:21 PM EDT [facility] nRBC 0.0 <=0.0 per 100 WBCs LAB HEMATOLOGY METHOD 03/20/2025 7:21 PM EDT [facility] Differential Type Automated LAB HEMATOLOGY METHOD 03/20/2025 7:21 PM EDT [facility] Neutrophils % 60 % LAB HEMATOLOGY METHOD 03/20/2025 7:21 PM EDT [facility] Lymphocytes % 26 % LAB HEMATOLOGY METHOD 03/20/2025 7:21 PM EDT [facility] Monocytes % 12 % LAB HEMATOLOGY METHOD 03/20/2025 7:21 PM EDT [facility] Eosinophils % 2 % LAB HEMATOLOGY METHOD 03/20/2025 7:21 PM EDT [facility] Basophils % 0 % LAB HEMATOLOGY METHOD 03/20/2025 7:21 PM EDT [facility] Immature Granulocytes % 0 % LAB HEMATOLOGY METHOD 03/20/2025 7:21 PM EDT [facility] Neutrophils Absolute 4.05 1.60 - 6.10 10*3/uL LAB HEMATOLOGY METHOD 03/20/2025 7:21 PM EDT [facility] Lymphocytes Absolute 1.77 1.20 - 3.90 10*3/uL LAB HEMATOLOGY METHOD 03/20/2025 7:21 PM EDT [facility] Monocytes Absolute 0.85 0.30 - 0.90 10*3/uL LAB HEMATOLOGY METHOD 03/20/2025 7:21 PM EDT [facility] Eosinophils Absolute 0.11 0.00 - 0.50 10*3/uL LAB HEMATOLOGY METHOD 03/20/2025 7:21 PM EDT [facility] Basophils Absolute 0.03 0.00 - 0.10 10*3/uL LAB HEMATOLOGY METHOD 03/20/2025 7:21 PM EDT [facility] Immature Granulocytes Absolute 0.03 0.00 - 0.06 10*3/uL LAB HEMATOLOGY METHOD 03/20/2025 7:21 PM EDT [facility] Blood Venous blood specimen / Unknown Venipuncture / Unknown 03/20/2025 6:51 PM EDT 03/20/2025 7:08 PM EDT [facility] - 03/20/2025 7:21 PM EDT Therapeutic decision making should be based on absolute values, rather than percentages. us Adrienne [facility] LAB BLOOD ORDERABLES Courtney ferrari Result [facility] [address] [place] [address] * EKG now - STAT (adult) (03/20/2025 5:31 PM EDT) EKG DIAGNOSIS CLASS Abnormal MUSE ECG Ventricular Rate 60 BPM MUSE ECG Atrial Rate 60 BPM MUSE ECG OH Interval 176 ms MUSE ECG QRSD Interval 86 ms MUSE ECG QT Interval 422 ms MUSE ECG QTC Interval 422 ms MUSE ECG P Scott 53 degrees MUSE ECG R Scott -37 degrees MUSE ECG T Wave Scott 80 degrees MUSE ECG Diagnosis Atrial-paced rhythm MUSE ECG Diagnosis Left axis deviation MUSE ECG Diagnosis T wave abnormality, consider anterior ischemia MUSE ECG Diagnosis Abnormal ECG MUSE ECG Diagnosis MUSE ECG Diagnosis Confirmed by J Carlos Campbell ([id number]) on 03/20/2025 5:41:58 PM MUSE ECG 03/20/2025 5:31 PM EDT 03/20/2025 5:41 PM EDT Adrien[facility] ECG ORDERABLES Final Res ult Performing Organization Address [facility] Co de Phone Number MUSE ECG [...] 1720, STAT 1853 (Given - Provider: Felipa Engle, NIURKA) polyethylene glycol (Miralax) packet 17 g 17 [...] Routine 2132 (Given - Provider: Stone Hopper) 08 (Given - Provider: Sandy Moseley RN)1950 (Canceled [...] Until Wed03/21/25 at 0047, Routine, severe pain 2057 (Given - Provider: [...] peripheral IV (COMPLETED) Once, On Wed03/20/25 at 1945, For 1 occurrence And Saline lock IV (COMPLETED) Once, On Wed03/20/25 at 1945, For 1 occurrence And sodium chloride 0.9 [...] documented as of this encounter Care Teams Office Lead Relationship Specialty Start Date End Date Pcp, No [address] [place] [address] PCP - General Family Medicine 03/20/25 Isabella Saucedo APRN [address] [place] [address] Referring Physician 02/26/25 Jeannie Mcmillan, RN [facility] [address] [place] [address] Registered Nurse Transplant Surgery 03/08/[address] [place] [address] Registered Nurse Transplant Surgery 03/08/25 documented as of this encounter
[2025-03-29] VITALS (10 sets, daily range): BP systolic 91–131; BP diastolic 42–71; PULSE 64–75; RESP 15–17; O2SAT 98; BMI 20.5
--- OUTSIDE RECORDS SUMMARY | 2025-03-29 09:05 | XMS_ITS | Encounter Summary ---
Author Organization [place] [address] Care Team Providers Care Student Finance Advisor Name Role Phone Jan Sin MD Unavailable [phone] Macario Pryor MD Unavailable Unavailabl e Cr Resendez MD Primary Care Provider [phone] Reason for Visit * Reason Comments Medication Refill Encounter Details Date Type Department Care Team (Late st Contact Info) Description 03/26/2025 Refill SEP Luis [facility] [place] [address] [phone] Cr Resendez MD [address] [place] [address] [address] [place] [id number] Medication Refill Social History Tobacco Use Types [...] Tablet Take 1 Tablet by mouth once daily 30 Tablet 03/27/2025 documented in this encounter Plan of Treatment [...] Tablet Take 1 Tablet by mouth daily. 02/21/2025 03/27/2025 documented as of this encounter Additional Health Concerns Assessment Noted Time PHQ-9 Depression Total Score: 10 024 1:00 PM EDT A fall risk assessment has been complete d for the patient 06/20/2024 1:28 PM EDT PHQ-2 Depression Total Score: 3 06/20/20 1:00 PM EDT documented as of this encounter Care Teams Student Finance Advisor Relationship Specialty Start Date End Date Macario Pryor MD [address] [place] [address] [place] [id number] PCP - Hematology/Oncology Internal Medicine-Medical Oncology 11/12/15 Cr Resendez MD [address] [place] [address] [place] [address] PCP - General Family Medicine 11/24/21 Jan Sin MD [address] [place] [address] [place] [address] Internal Medicine-Cardiovascul ar Disease 08/28/14 documented as of this encounter
--- OUTSIDE RECORDS SUMMARY | 2025-03-29 09:05 | XMS_ITS | Encounter Summary ---
Author Organization [place] [address] Care Team Providers Care Division Merchandise Manager Name Role Phone Jan Sin MD Unavailable [phone] Macario Pryor MD Un[facility] Cr Resendez MD Primary Care Provider [phone] Reason for Visit * Reason Onset Date Comments Other 12/20/2024 Katt sorin pc p to call her before pt appt on 12/21 Encounter Details Date Type Department Care Team (Late st Contact Info) Description 12/20/2024 Telephone SEP Luis RODRIGUEZ [address] [place] [address] Cr Resendez MD [address] [place] [address] [place] [address] Other (Katt needs pcp to call [...] documented as of this encounter Care Teams Division Merchandise Manager Relationship Specialty Start Date End Date Macario Pryor MD [address] [place] [address] [place] [address] PCP - Hematology/Oncology Internal Medicine-Medical Oncology 11/12/15 Cr Resendez MD [address] [place] [address] [place] [address] PCP - General Family Medicine 11/24/21 Jan Sin MD [address] [place] [address] [place] [address] Internal Medicine-Cardiovascul ar Disease 08/28/14 documented as of this encounter
--- OUTSIDE RECORDS SUMMARY | 2025-03-29 09:05 | XMS_ITS | Encounter Summary ---
Author Organization Healthcare Address [address] [place] [address] Care Team Providers Care Environmental Sustainability Manager Name Role Phone Isabella Saucedo Phong VP [employer] Unavailable [phone] Jeannie Mcmillan RN Unavailable [phone] Ebony Shoemaker Unavailable [phone] Pcp, No Primary Care Provider Unavailabl e Encounter Details Date Type Department Care Team (Late st Contact Info) Description 03/20/2025 Orders Only External Location [address] [place] [address] Provider, External Social History Tobacco Use Types Packs/Day Years Used Date Smoking Tobacco: Every Day Cigarettes 0.5 7.6 Started: 2018 Smokeless Tobacco: Never PHQ-2 Answer Date Recorded Patient Health Questionnaire-2 Score 0 03/14/2025 Sex and Gender Information Value Date Recorded Sex Assigned at Not on file Legal Sex Male 7:50 PM EDT Gender Identity Not on file Sexual Orientation Not on file documented as of this encounter Functional Status * Calculated C-SSRS Risk Score (Lifetime/Recent) Answer Date of Assessment Author No Risk Indicated 03/21/2025 8:00 AM EDT Sandy Moseley, NIURKA * Question Answer Date of Assessment Author 1. Wish to be (Past 1 Month) No 025 8:00 AM EDT Sandy Moseley, NIURKA 2. Non-Specific Active Suici heriberto Thoughts (Past 1 Month) No 03/21/2025 8:00 AM EDT Dali Moseley RN 6. Suicidal Behavior (Lifetime) No 8:00 AM EDT Makokha, Sandy, RN documented as of this encounter Plan of Treatment Not on file documented as of this encounter Procedures Procedure Name Priority Date/Time Associated Diagnosis Comments XR OUTSIDE IMAGES 03/20/2025 12:54 PM EDT documented in this encounter Results * XR OUTSIDE IMAGES (03/20/2025 12:54 PM EDT) Anatomical Region Laterality Modality Radiographic Winnie ging 03/20/2025 12:5 4 PM EDT External Provider IMG XR PROCEDURES [...] documented as of this encounter Care Teams Environmental Sustainability Manager Relationship Specialty Start Date End Date Pcp, No [address] [place] [address] PCP - General Family Medicine 03/20/25 Isabella Saucedo APRN [address] [place] [address] [address] [place] [address] Referring Physician 02/26/25 Jeannie Mcmillan, RN [employer] [address] [place] [address] Registered Nurse Transplant Surgery 03/08/25 [place] [address] Registered Nurse Transplant Surgery 03/08/25 documented as of this encounter
--- OUTSIDE RECORDS SUMMARY | 2025-03-29 09:05 | XMS_ITS | Encounter Summary ---
Author [place] [address] Care Team Providers Care Ladle Watcher Name Role Phone Jan Sin MD Unavailable [phone] Macario Pryor MD Un[facility] Resendez MD Primary Care Provider [phone] Encounter Details Date Type Department Care Team (Late st Contact Info) Description 12/22/2024 Results Follow-Up SEP Luis [address] [place] [address] Cr Resendez MD [address] [place] [address] [place] [address] BASIC METABOLIC PANEL Social History Tobacco Use [...] documented as of this encounter Care Teams Ladle Watcher Relationship Specialty Start Date End Date Macario Pryor MD [address] [place] [address] [place] [address] PCP - Hematology/Oncology Internal Medicine-Medical Oncology 11/12/15 Cr Resendez MD [address] [place] [address] [place] [address] PCP - General Family Medicine 11/24/21 Jan Sin MD [address] [place] [address] [place] [address] Internal Medicine-Cardiovascul ar Disease 08/28/14 documented as of this encounter
--- OUTSIDE RECORDS SUMMARY | 2025-03-29 09:05 | XMS_ITS | Encounter Summary ---
Author Organization [place] [address] Care Team Providers Care Video Arcade Manager Name Role Phone Jan Sin MD Unavailable [phone] Macario Pryor MD Unavailable Unavailabl e Cr Resendez MD Primary Care Provider [phone] Reason for Visit * Reason Onset Date Comments Other 01/25/2025 insurance compan y called asking if office can watch for active patient verification form was rec'd. Please advise. Encounter Details Date Type Department Care Team (Late st Contact Info) Description 01/25/2025 Telephone ABDULLAHI RODRIGUEZ [address] [place] [address] [place] [address] Cr Resendez MD [address] [place] [address] [place] [address] Other (insurance company called asking if [...] documented as of this encounter Care Teams Video Arcade Manager Relationship Specialty Start Date End Date Macario Pyror MD [address] [place] [address] [place] [address] PCP - Hematology/Oncology Internal Medicine-Medical Oncology 11/12/15 Cr Resendez MD [address] [place] [address] [place] [address] PCP - General Family Medicine 11/24/21 Jan Sin MD [address] [place] [address] [place] [address] Internal Medicine-Cardiovascul ar Disease 08/28/14 documented as of this encounter
--- OUTSIDE RECORDS SUMMARY | 2025-03-29 09:05 | XMS_ITS | Encounter Summary ---
Author Organization Healthcare Address [address] [place] [address] Care Team Providers Care Manager Hris Name Role Phone Isabella Saucedo Phong PAD MACHINE OPERATOR Unavailable [phone] Jeannie Mcmillan RN Unavailable [phone] Ebony Shoemaker Unavailable [phone] Pcp, No Primary Care Provider Unavailabl e Encounter Details Date Type Department Care Team (Late st Contact Info) Description 03/20/2025 Orders Only External Location [address] [place] [address] Provider, External Social History Tobacco Use Types [...] Date/Time Associated Diagnosis Comments CT OUTSIDE IMAGES 03/20/2025 12:46 PM EDT documented in this encounter Results * CT OUTSIDE IMAGES (03/20/2025 12:46 PM EDT) Anatomical Region Laterality Modality Computed Tomogra phy 03/20/2025 12:4 6 PM EDT External Provider IMG CT PROCEDURES Final Result documented in this encounter Visit Diagnoses Not on filedocumented in this encounter Additional Health Concerns Assessment Noted Time A fall risk assessment has been complete d for the patient 03/14/2025 9:07 AM EDT A Body Mass Index follow-up plan has been documented for the patient 03/21/2025 6:19 PM EDT documented as of this encounter Care Teams Manager Hris Relationship Specialty Start Date End Date Pcp, No [address] [place] [address] PCP - General Family Medicine 03/20/25 Isabella Saucedo APRN [address] [place] [address] [address] [place] [address] Referring Physician 02/26/25 Jeannie Mcmillan, RN [facility] [address] [place] [address] Registered Nurse Transplant Surgery 03/08/25 [place] [address] Registered Nurse Transplant Surgery 03/08/25 documented as of this encounter
--- OUTSIDE RECORDS SUMMARY | 2025-03-29 09:05 | XMS_ITS | Encounter Summary ---
Author Organization [place] [address] Care Team Providers Care School Boat Driver Name Role Phone Jan Sin MD Unavailable [phone] Macario Pryor MD Un[facility] Cr Resendez MD Primary Care Provider [phone] Reason for Visit * Reason Onset Date Comments Orders 01/02/2025 [facility] Follow Up 01/02/2025 US order Encounter Details Date Type Department Care Team (Late st Contact Info) Description 01/02/2025 Telephone ABDULLAHI [place] [facility] [place] [address] Cr Resendez MD [address] [place] [address] [place] [address] Orders ([facility]. ); [...] EDT No auth required will fax to [facility] * Telephone Encounter - Cr eRsendez MD - 01/02/2025 11:16 AM EDT Please fax the imaging order for the ultrasound to [facility] * Telephone Encounter - Veronica Rey MA - 01/02/2025 11:08 AM EDT Select the most appropriate reason for this telephone message: Follow Up Follow Up Who is Calling:Other , Ashley What is the caller following up on (make sure to reference any prior documentation/encounter):Ashley states she just spoke with [facility] & they told her authorization [...] (Diagnosis): [facility]. Why is this encounter being sent: Other: [facility] [place] [facility] What types of radiology orders are being requested: Other: US Is patient waiting at lab/hospital/facility: No If non-[facility], where should the order be faxed (include fax number[facility] Upcoming PCP appointment date: none Return Method [...] documented as of this encounter Care Teams School Boat Driver Relationship Specialty Start Date End Date Macario Pryor MD [address] [place] [address] [place] [address] PCP - Hematology/Oncology Internal Medicine-Medical Oncology 11/12/15 Cr Resendez MD [address] [place] [address] [place] [address] PCP - General Family Medicine 11/24/21 Jan Sin MD [address] [place] [address] [place] [address] Internal Medicine-Cardiovascul ar Disease 08/28/14 documented as of this encounter
--- OUTSIDE RECORDS SUMMARY | 2025-03-29 09:05 | XMS_ITS | Clinical Summary ---
Author Organization [facility] Address [address] [place] [address] Phone Care Team Providers Care Cut Off Saw Operator Metal Name Role Phone Jan Sin MD Unavailable [phone] Macario Pryor MD Un[facility] Cr Resendez MD Primary Care Provider [phone] Allergies Active Allergy Reactions Criticality Noted Date [...] 25 Active nalOXone (NARCAN) 4 mg/actuation Nasl [place], Non-Aerosol 0.1 mL by Nasal route daily [...] Tablet by mouth once daily 30 Tablet 03/27/20 25 Active clopidogreL (PLAVIX) 75 mg Oral Tablet Take 1 Tablet by mouth daily. 30 Tablet 02/22/20 25 025 Discontinued Active Problems Patient Care Coordination No te Formatting of this note migh t be different from the original. hillary stevens contracts signed 04/19/12 [facility]05/01/15 #[id number] [facility] 12/12/15 ,02/28/16 [id number],04/09/16 [id number], 11/27/16 [facility] 06/08/14,12/12/15, 10/02/16 Problem Noted Date [...] (12/01/2022): Added automatically from request for surgery [id number] Chronic bronchitis 11/26/2022 Assessment & Plan (12/21/2024 9:37 AM EDT): Orders: BASIC METABOLIC PANEL; Future Assessment & Plan (09/07/2024 10:49 AM EST): Orders: yuvdcjhywoj-cussokzhs-bhbamhxa (TRELEGY ELLIPTA) 100-62.5-25 mcg Inhl Disk with [...] by Redo CABG 6 mo later at [facility] with 4// patent grafts 2010 Unspecified essential [...] 07/04/2015 S/P coronary angiogram 08/31/201407/04 Overview (08/31/2014): [facility] 10/15/2009 four out of four grafts, SVG [...] Encounters Date Type Department Care Team Description 03/26/[address] [place] [address] Cr Resendez MD Medication Refill 02/22/[address] [place] [address] Cr Resendez MD Paperwork/forms 02/20/[address] [place], [place] [address] Cr Resendez MD Medication Refill 02/12/[address] [place] [address] Cr Resendez MD Medication Refill 01/29/[address] [place] [address] rC Resendez MD Medication Refill 01/25/[address] [place], [place] [address] Cr Resendez MD Other (insurance company called asking if office can watch for active patient verification form was rec'd. Please advise.) 01/18/[address] [place] [address] Cr Resendez MD Medication Refill 01/11/[address] [place], [place] [address] Rodney Resendez MD Medication Refill 01/08/2025 Orders Only [address] [place] [address] Lorri Crespo APRN Right inguinal hernia (Primary Dx) 01/02/[address] [place] [address] Cr Resendez MD Orders (US needs to be faxed to [facility] they said they don't have it. ); Follow Up (US order) 12/29/2024 Telephone SEP Luis PC [address] [place] [address] Cr Resendez MD Referral ( called asking for status of the referral being sent to [facility] - please advise.) 12/27/2024 9:45 AM EDT Office Visit SEP Luis [address] [place] [address] Lorri Crespo APRN Right inguinal hernia (Primary Dx); Candidiasis of penis; Calculus of gallbladder without cholecystitis without obstruction from Last 3 Months Immunizations Immunization Administration [...] maker CORONARY ANGIOPLASTY WITH STENT PLACEMENT 01/04/2024 [facility] NECK SURGERY 12/06/2024 [facility] Medical History Medical History Date Comments COPD (chronic obstructive pu lmonary disease) (HCC) Shortness of breath Blood circulation, collateral fe et and hands get cold since cabg CAD (coronary artery disease) Hypertension NC (myocardial infarction) ([facility]) 4 times Arthritis Headache(784.0) Neuromuscular disorder ([facility]) lennox k and left leg Other disorders [...] Cheng MD Medical Devices Implanted Type Area Support Services Tech Device Identifier Shelf Expiration Date Model / Serial / Lot [employer] Vigilant ICD D233 / / [employer] Lead Lead 0675 / / [employer] [place] Lead Lead LPA 1200M / / Spinal Cord Stimulator Lead Description:pt has a retaine d spinal cord stimulator lead. generator was removed about 7-8 years ago per pt. 09-24-2020 Procedures Procedure Name Priority Date/Time Associated Diagnosis Comments CT LUNG CANCER SCREENING LOW DOSE Routine [...] Recently Relevant to Health Maintenance Results * CT LUNG CANCER SCREENING LOW DOSE [...] contact the office of the ordering clinician. [email or web address] Narrative 11/23/2024 12:[address] LUNG CANCER SCREENING LOW DOSE 11/23/2024 11:21 AM CLINICAL HISTORY: Asymptomatic patient meeting NCCN high risk criteria for lung screening. Z12.2-Encounter for screening for malignant neoplasm of respiratory btwkzx-WSZ-24-CM Z87.891-Personal history of nicotine qcumfqdehj-ZJT-48-CM COMPARISON: CT chest 09/08/2023. PROCEDURE COMMENTS: Noncontrast, low-dose, multidetector CT chest per standard department protocol. Interactive 3-D postprocessing done by the reviewing physician on a HealthTap workstation, using Maximum intensity projections (MIPS) and HealthTap LUNG CAD for improved lesion detection. Salazar [...] Z12.2-Encounter for screening for malignant neoplasm ofrespiratory elhveb-IHH-49-CM Z87.891-Personal history of nicotine oeviwfehey-LLS-00-CM COMPARISON: CT chest 09/08/2023. PROCEDURE COMMENTS: Noncontrast, low-dose, multidetector CT chest perstandard department protocol. Interactive 3-D postprocessing done by thereviewing physician on a HealthTap workstation, using Maximum intensity projections(MIPS) and HealthTap LUNG CAD for improved lesion detection. Salazar images archived madvertise. Automated exposure control for dose reduction was [...] please contactthe office of the ordering clinician. [email or web address] Cr Resendez MD IMG CT ORDERABLES Final Result * US AAA [...] CLINICAL HISTORY: Z13.6-Encounter for screening for cardiovascular ovxrvniif-KAX-32-CM. COMPARISON: CT abdomen pelvis from 09/07/2023 PROCEDURE COMMENTS: Routine sonographic evaluation of the abdominal aorta with retail field representative images sent to PACS along with right of way agent notes. FINDINGS: The abdominal aorta is normal in caliber. Maximum transverse diameter is 2.4 cm. Atherosclerotic change in the aorta and iliac vessels noted unchanged from the recent CT Procedure Note Cr Ramachandran MD - 12/16/2023 US AAA SCREENING EXAM MEDICARE, 12/16/2023 9:55 AM CLINICAL HISTORY: Z13.6-Encounter for screening for cardiovascular aabjujojt-EWR-83-CM. COMPARISON: CT abdomen pelvis from 09/07/2023 PROCEDURE COMMENTS: Routine sonographic evaluation of the abdominal aortawith retail field representative images sent to PACS along with right of way agent notes. FINDINGS: The abdominal aorta is normal [...] please contactthe office of the ordering clinician. us Cr Resendez MD [facility] ORDERABLES Final Result * COLONOSCOPY (01/13/2023 1:07 [...] Pena MD Performing Provider Raymond Harris RN Ski Lift Operator Gurvinder Garner MD Anesthesiologist Mary Jo [...] PATHOLOGY TISSUE REQUEST Casper Pena MD 01/13/2023 1259 2 : sigmoid colon polyp via cold snare Tissue Large Intestine, Sigmoid Colon PATHOLOGY TISSUE REQUEST Casper Pena MD 01/13/2023 1303 us Casper Pena MD ENDOSCOPY PROCEDURE ORDERABL ES Final Result * HEPATITIS C ANTIBODY - SCREENING (11/24/2021 10:38 AM EDT) Hep C Ab Non-Reactiv e Non-Reacti ve 11/24/2021 3:20 PM EDT PREFERRED [employer] Blood VENOUS BLOOD / Unknown Venipuncture / Unknown 11/24/2021 10:38 AM EDT 11/24/2021 10:43 AM EDT us Cr Resendez MD HEMATOLOGY ORDERABLES Final Re sult [employer] [address] [facility] , [address] [place] [id number] from Last 3 Months or Most Recently Relevant to Health Maintenance Insurance MEDICARE [place] PART A [place] B [place] [address] MED[place]ID [id number] Care Teams Cut Off Saw Operator Metal Relationship Specialty Start Date End Date Macario Pryor MD [address] [place] [address] [place] [address] PCP - Hematology/Oncology Internal Medicine-Medical Oncology 11/12/15 Cr Resendez MD [address] [place] [address] [place] [address] PCP - General Family Medicine 11/24/21 Jan Sin MD [address] [place] [address] [place] [address] Internal Medicine-Cardiovascul ar Disease 08/28/14
--- OUTSIDE RECORDS SUMMARY | 2025-03-29 09:05 | XMS_ITS | Encounter Summary ---
Author Organization Healthcare Address [address] [place] [address] Care Team Providers Care Ssis Developer Name Role Phone LewisIsabella Phong CARRIER PACKER Unavailable [phone] Jeannie Mcmillan RN Unavailable [phone] Ebony Shoemaker Unavailable [phone] Pcp, No Primary Care Provider Unavailabl e Encounter Details Date Type Department Care Team (Latest Contact Info) Description 03/20/2025 Travel Social History Tobacco Use Types Packs/Day Years Used Date Smoking Tobacco: Every Day Cigarettes 0.5 7.6 Started: 2017 Smokeless Tobacco: Never PHQ-2 Answer Date Recorded Patient Health Questionnaire-2 Score 0 03/14/2025 Sex and Gender Information Value Date Recorded Sex Assigned at Not on file Legal Sex Male 7:50 PM EDT Gender Identity Not on file Sexual Orientation Not on file documented as of this encounter Functional Status * Calculated C-SSRS Risk Score (Lifetime/Recent) Answer Date of Assessment Author No Risk Indicated 03/20/2025 9:00 PM EDT Stone Rey * Question Answer Date of Assessment Author 1. Wish to be (Past 1 Month) No 03/20/2025 9:00 PM EDT Stone Hopper 2. Non-Specific Active Suici heriberto Thoughts (Past 1 Month) No 03/20/2025 9:00 PM EDT Stone Lawson 6. Suicidal Behavior (Lifetime) No 9:00 PM EDT Stone Hopper documented as of this encounter Plan of [...] documented as of this encounter Care Teams Ssis Developer Relationship Specialty Start Date End Date Pcp, [address] [address] PCP - General Family Medicine 03/20/25 Isabella Saucedo APRN [facility] [address] [place] [address] Referring Physician 02/26/25 Jeannie Mcmillan, RN [employer] [address] [place] [address] Registered Nurse Transplant Surgery 03/08/25 [place] [address] Registered Nurse Transplant Surgery 03/08/25 documented as of this encounter
--- OUTSIDE RECORDS SUMMARY | 2025-03-29 09:05 | XMS_ITS | Encounter Summary ---
Author Organization Healthcare Address [address] [place] [id number] Care Team Providers Care Dye Jig Operator Name Role Phone Unavailable Primary Care Provider [...]
--- OUTSIDE RECORDS SUMMARY | 2025-03-29 09:05 | XMS_ITS | Encounter Summary ---
Author Organization [place] [address] Care Team Providers Care Commissions Analyst Name Role Phone Jan Sin MD Unavailable [phone] Macario Pryor MD Unavailable Unavailabl e Cr Resendez MD Primary Care Provider [phone] Reason for Visit * Reason Comments Medication Refill Encounter Details Date Type Department Care Team (Late st Contact Info) Description 02/12/2025 Refill SEP Luis [facility] [place] [address] Cr Resendez MD [address] [place] [address] [address] [place] [id number] Medication Refill Social History Tobacco Use Types [...] documented as of this encounter Care Teams Commissions Analyst Relationship Specialty Start Date End Date Macario Pryor MD [address] [place] [address] [place] [address] PCP - Hematology/Oncology Internal Medicine-Medical Oncology 11/12/15 Cr Resendez MD [address] [place] [address] [place] [address] PCP - General Family Medicine 11/24/21 Jan Sin MD [address] [place] [address] [place] [address] Internal Medicine-Cardiovascul ar Disease 08/28/14 documented as of this encounter
--- OUTSIDE RECORDS SUMMARY | 2025-03-29 09:05 | XMS_ITS | Encounter Summary ---
Author Organization [place] [address] Care Team Providers Care Credit Support Counselor Name Role Phone Jan Sin MD Unavailable [phone] Macario Pryor MD Unavailable Unavailabl e Cr Resendez MD Primary Care Provider [phone] Reason for Visit * Reason Comments Medication Refill Encounter Details Date Type Department Care Team (Late st Contact Info) Description 01/29/2025 Refill SEP Luis [facility] [place] [address] Cr Resendez MD [address] [place] [address] [place] [address] Medication Refill Social History Tobacco Use [...] documented as of this encounter Care Teams Credit Support Counselor Relationship Specialty Start Date End Date Macario Pryor MD [address] [place] [address] [place] [id number] PCP - Hematology/Oncology Internal Medicine-Medical Oncology 11/12/15 Cr Resendez MD [address] [place] [address] [place] [address] PCP - General Family Medicine 11/24/21 Jan Sin MD [address] [place] [address] [place] [address] Internal Medicine-Cardiovascul ar Disease 08/28/14 documented as of this encounter
--- OUTSIDE RECORDS SUMMARY | 2025-03-29 09:05 | XMS_ITS | Encounter Summary ---
Author Organization Healthcare Address [address] [place] [address] Care Team Providers Care Singer Songwriter Name Role Phone Isabella Saucedo Phong RESIDENTIAL TECH Unavailable [phone] Jeannie Mcmillan RN Unavailable [phone] Ebony Shoemaker Unavailable [phone] Pcp, No Primary Care Provider Unavailabl e Encounter Details Date Type Department Care Team (Late st Contact Info) Description 03/20/2025 Orders Only External Location [address] [place] [address] Provider, External Social History Tobacco Use Types [...] Moseley RN documented as of this encounter Plan of Treatment Not on file documented as of this encounter Procedures Procedure Name Priority Date/Time Associated Diagnosis Comments CT THORACIC OUTSIDE IMAGES 03/20/2025 1:13 PM EDT documented in this encounter Results * CT THORACIC OUTSIDE IMAGES (03/20/2025 1:13 PM EDT) Anatomical Region Laterality Modality Computed Tomogra phy 03/20/2025 1:13 PM EDT External Provider IMG CT PROCEDURES [...] documented as of this encounter Care Teams Singer Songwriter Relationship Specialty Start Date End Date Pcp, No [address] [place] [address] PCP - General Family Medicine 03/20/25 Isabella Saucedo APRN [address] [place] [address] [address] [place] [address] Referring Physician 02/26/25 Jeannie Mcmillan, RN [facility] [address] [place] [id number] Registered Nurse Transplant Surgery 03/08/25 [place] [address] Registered Nurse Transplant Surgery 03/08/25 documented as of this encounter
--- OUTSIDE RECORDS SUMMARY | 2025-03-29 09:05 | XMS_ITS | Clinical Summary ---
Author Organization Healthcare Address [address] [place] [address] Care Team Providers Care Toll Relief Operator Name Role Phone LewisBereniceIsabella J LAMPS TESTER AND INSPECTOR Unavailable [phone] Jeannie Mcmillan RN Unavailable [phone] Ebony Shoemaker Unavailable [phone] Pcp, No Primary Care Provider Unavailabl e Allergies Active Allergy Reactions Criticality Noted Date Comments Duloxetine Unknown - Patient states they do not know rxn details Low 03/21/2025 Gabapentin Other - please document in the comment field Low 03/21/2025 Agitation, irritability Tape/Bandaid Adhesive Rash Low 03/21/2025 Pt reports it rips skin off Medications albuterol 108 (90 Base) MCG/ACT inhaler Inhale 2 puffs 4 times a day as needed for shortness of breath or wheezing. 09/28/19 25 Active aspirin 81 MG EC tablet Take 1 tablet by mouth 1 time each day. Active bisoprolol (Zebeta) 5 MG tablet Take 1 tablet by mouth daily. Active clopidogrel (Plavix) 75 MG tablet Take 1 tablet by mouth 1 time each day. 11/16/19 25 Active clotrimazole (Lotrimin) 1 % cream Apply 1 Application topically as needed. 12/28/19 25 Active cyclobenzaprine (Flexeril) 5 MG tablet Take 1 tablet by mouth every 8 hours as needed. 02/13/20 25 Active Jardiance 10 MG Take 1 tablet by mouth daily. Active escitalopram (Lexapro) 20 MG tablet Take 1 tablet by mouth 1 time each day. 09/07/19 25 Active furosemide (Lasix) 20 MG tablet Take 1 tablet by mouth daily. 02/06/20 25 Active naloxone (Narcan) 4 mg/0.1 mL nasal spray 1. Give 1 spray in nostril for no/slow breathing or cannot wake after opioid use 2. Call 911 3. Repeat in other nostril if symptoms continue 12/22/19 25 Active Entresto 24-26 MG tablet Take 1 tablet by mouth 2 times a day. Active Trelegy Ellipta 100-62.5-25 MCG/ACT aerosol powder INHALE 1 PUFF INTO THE LUNGS DAILY AT 0900. Active nitroglycerin (Nitrostat) 0.[address] 1 tablet under the tongue every 5 minutes as needed for chest pain. Active acetaminophen (Tylenol) 500 MG tablet Take 2 tablets by mouth 2 times a day as needed for pain. Active senna (Senokot) 8.6 MG tablet Take 2 tablets by mouth nightly. 60 tablet 5 03/21/20 25 Active polyethylene glycol (Miralax) 17 g packet Take 17 g by mouth daily. 30 each 5 03/22/20 25 Active ondansetron ODT (Zofran-ODT) 4 MG disintegrating tablet Dissolve 1 tablet on the tongue every 6 hours as needed for nausea or vomiting. 20 tablet 03/21/20 25 Active HYDROmorphone (Dilaudid) 2 MG tablet Take 1.5 tablets by mouth every 4 hours as needed for severe pain. 90 tablet 03/21/20 25 Active calcium carbonate (Tums) 500 MG chewable tablet Chew 1 tablet every 4 hours as needed for indigestion or heartburn. 30 tablet 03/21/20 25 Active atorvastatin (Lipitor) 20 MG tablet Take 1 tablet by mouth nightly. 01/31/20 25 025 Discontin ued(Stop Taking at Discharge ) oxyCODONE-acetamin ophen (Percocet) 7.5-325 MG tablet TAKE 1 TABLET BY ORAL ROUTE 3 TIMES A DAY FOR 30 DAYS M54.17 02/24/20 25 025 Discontin ued(Stop Taking at Discharge ) nitroglycerin (Nitrodur) 0.4 MG/HR patch Place 1 patch on the skin daily. 025 Discontin ued(Enter ed in Error) Active Problems Problem Noted Date Diagnosed Date Hepatocellular carcinoma 03/20/2025 Encounters Date Type Department Care Team Description 03/20/2025 4:39 PM EDT - 03/21/2025 6:51 PM EDT Hospital Encounter [facility] Inpatient [address] [place] [id number] Clotilde Saleh MD Santos, Patricia Therese A, MD Sayers, Anne E, MD Epigastric pain (Primary Dx); Hepatocellular carcinoma; Alcoholic cirrhosis of liver without ascites (CMS/HCC) Discharge Disposition: Home or Self Care 03/20/2025 Travel 03/20/2025 Orders Only External Location [address] [place] [phone] Provider, External 03/20/2025 Orders Only External Location [address] [place] [id number] Provider, External 03/20/2025 Orders Only External Location [address] [place] [phone] Provider, External 03/16/2025 Telephone [facility] [place] [id number] [phone] Ebony Shoemaker Txp Surgical Follow-up (Ernestina: Tumor Board Discussion 03/16/25) 03/14/2025 11:20 AM EDT - 03/14/2025 11:59 PM EDT Hospital Encounter [facility] [address] [place] [address] Elevated AFP; Liver lesion; Hepatic cirrhosis, unspecified hepatic cirrhosis type, unspecified whether ascites present (CMS/HCC) Discharge Disposition: Home or Self Care 03/14/2025 10:00 AM EDT Office Visit [facility] [place] [address] [phone] Peter Do MD HCC (hepatocellular carcinoma) (Primary Dx) 03/14/2025 Orders Only [facility] [place] [address] [phone] Ebony Shoemaker Liver lesion (Primary Dx); Elevated AFP; Hepatic cirrhosis, unspecified hepatic cirrhosis type, unspecified whether ascites present (CMS/HCC) 03/14/2025 Travel 03/10/2025 Travel 03/07/2025 Travel 03/06/2025 Telephone [facility] Center [address] [place] [phone] Desiree Cici Dyer 03/06/2025 Telephone [facility] Center [address] [place] [phone] Angelita Reeves Appointment 03/05/2025 Telephone [facility] Center [address] [place] [phone] Angelita Reeves Appointment 02/26/2025 Telephone [facility] Center [address] [place] [phone] Angelita Reeves Referral - Liver Txp 02/26/2025 Community Orders [facility] [address] [place] [address] Isabella Saucedo APRN Invasion of liver, gallbladder, pancreas, ipsilateral branch of portal vein, 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) (Primary Dx); Elevated alpha fetoprotein; Hepatic cirrhosis, unspecified hepatic cirrhosis type, unspecified whether ascites present (CMS/HCC) 02/19/2025 [facility] Orders [facility] [address] [place] [address] Isabella Saucedo APRN Elevated alpha fetoprotein (Primary Dx); Liver tumor 02/09/2025 11:02 AM EDT - 02/09/2025 11:59 PM EDT Hospital Encounter [facility] [address] [place] [address] Abnormality of alphafetoprotein; Other specified abnormal findings of blood chemistry; Unspecified cirrhosis of liver (CMS/HCC) Discharge Disposition: Home or Self Care 02/09/2025 Travel 01/12/2025 Orders Only External Location [address] [place] [phone] Provider, External 01/12/2025 Orders Only External Location [address] [place] [phone] Provider, External 01/04/2025 Orders Only External Location [address] [place] [address] Provider, External from Last 3 Months Social History Tobacco Use Types Packs/Day Years Used Date Smoking Tobacco: Every Day Cigarettes 0.5 7.6 Started: 2018 Smokeless Tobacco: Never Tobacco Cessation:Ready to Q [...] Mass Index 20.88 03/20/2025 10:58 PM EDT Plan of Treatment Health Maintenance Due Date Last Done Comments [facility], [facility]-/Child/Adol SDOH Screenings 1958 [id number] Vaccine (#1) 1963 [facility]- SDOH Screenings 1976 [facility]-Adult SDOH Screenings 1976 [facility]-Hepatitis A Vaccines (1 of 2 - Risk 2-dose series) 1977 [facility]-Zoster Vaccines (1 of 2) 1977 [facility]-DTaP,Tdap,and Td Vaccines (1 - Tdap) 11/04/1996 11/03/1996 CT Colonography 2003 Colonoscopy 2003 FIT-DNA 2003 FIT 2003 FOBT 2003 Sigmoidoscopy 2003 [facility]-Colorectal Cancer Screening 2003 [facility]-RSV Vaccine: 60+ Years or (1 - Risk 60-74 years 1-dose series) 2018 [facility]-Medicare Annual Wellness (AWV) 12/13/2024 12/14/2023, 11/26/2022, 11/24/2021 [facility]-Influenza Vaccine (#1) 04/30/202506/20, 06/03/2023, 06/11/2021, Additional history exists [facility]-Depression Screening 03/14/2026 03/14/2025 [facility]-Pneumococcal Vaccine: 50+ Years Completed 12/14/2023, 05/08/2019, 07/18/2012 [facility]-Abdominal Aortic Aneurysm (AAA) Screening Completed 12/16/2023, 12/16/2023 [facility]-Hepatitis C Screening Completed 03/20/2025 HPV Vaccines Aged Out No longer eligi [...] / INR Routine 03/21/2025 6:32 AM EDT COMPREHENSIVE METABOLIC PANEL, PLASMA Routine 03/21/2025 6:32 AM EDT CBC WITH AUTO DIFFERENTIAL Routine 03/21/2025 6:32 AM EDT TROPONIN T, HIGH SENSITIVITY, 2 HOUR, PLASMA Timed 03/20/2025 10:54 PM EDT TROPONIN T, HIGH SENSITIVITY, 0 HOUR, PLASMA, REFLEX TO 2 HOUR STAT 03/20/2025 6:51 PM EDT ED HIV 1/2 ANTIBODY/ANTIGEN SCREEN WITH REFLEX TO HIV I/II DIFFERENTIATION STAT 03/20/2025 6:51 PM EDT ED PROTOCOL HIV 1/2 ANTIBODY/ANTIGEN SCREEN W/REFLEX TO HIV 1/2 ANTIBODY DIFFERENTIATION STAT 03/20/2025 6:51 PM EDT HEPATITIS C ANTIBODY - ED W/REFLEX TO HCV QUANT PCR STAT 03/20/2025 6:51 PM EDT APTT STAT 03/20/2025 6:51 PM EDT C-REACTIVE PROTEIN, PLASMA STAT 03/20/2025 6:51 PM EDT LACTATE, VENOUS STAT 03/20/2025 6:51 PM EDT LIPASE, PLASMA STAT 03/20/2025 6:51 PM EDT PROTHROMBIN TIME(PT) / INR STAT 03/20/2025 6:51 PM EDT COMPREHENSIVE METABOLIC PANEL, PLASMA STAT 03/20/2025 6:51 PM EDT CBC WITH AUTO DIFFERENTIAL STAT 03/20/2025 6:51 PM EDT ECG ADULT STAT 03/20/2025 5:[address] THORACIC OUTSIDE IMAGES 03/20/2025 1:13 PM EDT XR OUTSIDE IMAGES 03/20/2025 12: [address] OUTSIDE IMAGES 03/20/2025 12: [address] CHEST WO IV CONTRAST Routine 03/14/20 25 11:30 AM EDT Elevated AFP Liver lesion [...] 01/04/2025 from Last 3 Months Results * PT/INR (03/21/2025 6:32 AM EDT) Only the most recent of4 resultswithin the time period is included. Prothrombin Time 13.8 12.0 - 14.3 sec LAB COAGULATION METHOD 03/21/2025 7:00 AM EDT [facility] INR 1.1 0.9 - 1.1 LAB COAGULATION METHOD 03/21/2025 7:00 AM EDT [facility] Blood Venous blood specimen / Unknown Venipuncture / Unknown 03/21/2025 6:32 AM EDT 03/21/2025 6:43 AM EDT Narrative [facility] - 03/21/2025 7:00 AM EDT [...] recurrent DE INR 2.5 to 3.5 us Leelee Tripathi MD LAB BLOOD ORDERABLE S Final Result [facility] [address] [place] [address] * (ABNORMAL) CBC and Differential (03/21/2025 6:32 AM EDT) Only the most recent of2 resultswithin the time period is included. WBC Count 6.12 3.70 - 10.30 10*3/uL LAB HEMATOLOGY METHOD 03/21/2025 6:58 AM EDT [facility] RBC Count 4.62 4.60 - 6.10 10*6/uL LAB HEMATOLOGY METHOD 03/21/2025 6:58 AM EDT [facility] HGB 15.2 13.7 - 17.5 g/dL LAB HEMATOLOGY METHOD 03/21/2025 6:58 AM EDT [facility] HCT 45.4 40.0 - 51.0 % LAB HEMATOLOGY METHOD 03/21/2025 6:58 AM EDT [facility] Platelet Count 82(L) 155 - 369 10*3/uL LAB HEMATOLOGY METHOD 03/21/2025 6:58 AM EDT [facility] MCV 98 79 - 98 fL LAB HEMATOLOGY METHOD 03/21/2025 6:58 AM EDT [facility] MCH 32.9(H) 26.0 - 32.0 pg LAB HEMATOLOGY METHOD 03/21/2025 6:58 AM EDT [facility] MCHC 33.5 30.7 - 35.5 g/dL LAB HEMATOLOGY METHOD 03/21/2025 6:58 AM EDT [facility] RDW 16.8(H) 11.5 - 14.5 % LAB HEMATOLOGY METHOD 03/21/2025 6:58 AM EDT [facility] MPV 12.2 8.8 - 12.5 fL LAB HEMATOLOGY METHOD 03/21/2025 6:58 AM EDT [facility] nRBC 0.0 <=0.0 per 100 WBCs LAB HEMATOLOGY METHOD 03/21/2025 6:58 AM EDT [facility] Differential Type Automated LAB HEMATOLOGY METHOD 03/21/2025 6:58 AM EDT [facility] Neutrophils % 55 % LAB HEMATOLOGY METHOD 03/21/2025 6:58 AM EDT [facility] Lymphocytes % 24 % LAB HEMATOLOGY METHOD 03/21/2025 6:58 AM EDT [facility] Monocytes % 17 % LAB HEMATOLOGY METHOD 03/21/2025 6:58 AM EDT [facility] Eosinophils % 2 % LAB HEMATOLOGY METHOD 03/21/2025 6:58 AM EDT [facility] Basophils % 1 % LAB HEMATOLOGY METHOD 03/21/2025 6:58 AM EDT [facility] Immature Granulocytes % 1 % LAB HEMATOLOGY METHOD 03/21/2025 6:58 AM EDT [facility] Neutrophils Absolute 3.46 1.60 - 6.10 10*3/uL LAB HEMATOLOGY METHOD 03/21/2025 6:58 AM EDT [facility] Lymphocytes Absolute 1.45 1.20 - 3.90 10*3/uL LAB HEMATOLOGY METHOD 03/21/2025 6:58 AM EDT [facility] Monocytes Absolute 1.03(H) 0.30 - 0.90 10*3/uL LAB HEMATOLOGY METHOD 03/21/2025 6:58 AM EDT [facility] Eosinophils Absolute 0.11 0.00 - 0.50 10*3/uL LAB HEMATOLOGY METHOD 03/21/2025 6:58 AM EDT [facility] Basophils Absolute 0.04 0.00 - 0.10 10*3/uL LAB HEMATOLOGY METHOD 03/21/2025 6:58 AM EDT [facility] Immature Granulocytes Absolute 0.03 0.00 - 0.06 10*3/uL LAB HEMATOLOGY METHOD 03/21/2025 6:58 AM EDT [facility] Blood Venous blood specimen / Unknown Venipuncture / Unknown 03/21/2025 6:32 AM EDT 03/21/2025 6:43 AM EDT Narrative [facility] - 03/21/2025 6:58 AM EDT Therapeutic decision making should be based on absolute values, rather than percentages. us Leelee Tripathi MD LAB BLOOD ORDERABLE S Final Result [facility] [address] [place] [address] * (ABNORMAL) Comprehensive metabolic panel (03/21/2025 6:32 AM EDT) Only the most recent of3 resultswithin the time period is included. Glucose, Plasma 107(H) 74 - 99 mg/dL 03/21/2025 7:11 AM EDT [facility] BUN, Plasma 12 8 - 23 mg/dL 03/21/2025 7:11 AM EDT [facility] Creatinine, Plasma 0.77 0.70 - 1.20 mg/dL 03/21/2025 7:11 AM EDT [facility] BUN/Creatinine Ratio 16 03/21/2025 7:11 AM EDT [facility] Sodium, Plasma 139 136 - 145 mmol/L 03/21/2025 7:11 AM EDT [facility] Potassium, Plasma 4.6 3.6 - 4.9 mmol/L 03/21/2025 7:11 AM EDT [facility] Comment:Hemolyzed, result ma y be falsely increased. Chloride, Plasma 105 97 - 107 mmol/L 03/21/2025 7:11 AM EDT [facility] CO2, Plasma 23 22 - 29 mmol/L 03/21/2025 7:11 AM EDT [facility] Anion Gap 11 6 - 16 mmol/L 03/21/2025 7:11 AM EDT [facility] Total Calcium, Plasma 9.4 8.9 - 10.2 mg/dL 03/21/2025 7:11 AM EDT [facility] Total Protein 7.0 6.3 - 7.9 g/dL 03/21/2025 7:11 AM EDT [facility] Albumin, Plasma 3.6 3.5 - 5.2 g/dL 03/21/2025 7:11 AM EDT [facility] AST, Plasma 621(H) 10 - 50 U/L 03/21/2025 7:11 AM EDT [facility] Comment:Hemolyzed, result ma y be falsely increased. ALT, Plasma 48 10 - 50 U/L 03/21/2025 7:11 AM EDT [facility] Alkaline Phosphatase, Plasma 232(H) 40 - 115 U/L 03/21/2025 7:11 AM EDT [facility] Total Bilirubin, Plasma 0.6 0.2 - 1.1 mg/dL 03/21/2025 7:11 AM EDT [facility] eGFRcr 98.7 mL/min/1.7 3m*2 03/21/2025 7:11 AM EDT [facility] Comment:Reported eGFRcr in m L/min/1.73m2 is based the CKD-EPI 2020 equation that does not use a race coefficient. Blood Venous blood specimen / Unknown Venipuncture / Unknown 03/21/2025 6:32 AM EDT 03/21/2025 6:43 AM EDT us Leelee Tripathi MD LAB BLOOD ORDERABLE S Final Result [facility] [address] [place] [address] * Troponin T, High Sensitivity, 2 Hour, Plasma (03/20/2025 10:54 PM EDT) Troponin T, High Sensitivity, 2 Hour 10 <19 ng/L 03/20/2025 11:31 PM EDT [facility] Blood Venous blood specimen / Unknown Venipuncture / Unknown 03/20/2025 10:54 PM EDT 03/20/2025 11:04 PM EDT Leelee Tripathi MD LAB BLOOD ORDERABLE S Final Result Performing Organization Address City/[facility] Co de Phone Number [facility] [address] [place] [address] * ED HIV 1/2 Antibody/Antigen Screen w/Reflex to HIV 1/2 Differentiation (03/20/2025 6:51 PM EDT) [facility] HIV 1 & 2 Antibody/Antigen Screen Non Reactive Non Reactive 03/20/2025 8:05 PM EDT [facility] Comment:Screening for HIV 1 & 2 antibodies, and P24 antigen is NONREACTIVE. No confirmatory testing is required. Blood Venous blood specimen / Unknown Venipuncture / Unknown 03/20/2025 6:51 PM EDT 03/20/2025 7:09 PM EDT Dedra HURTADO LAB BLOOD ORDERABLES Courtney l Result Performing Organization Address City/[facility] Co de Phone Number [facility] [address] [place] [address] * Troponin now and 120 min (03/20/2025 6:51 PM EDT) [facility] Troponin T, High Sensitivity, 0 Hour 9 <19 ng/L 03/20/2025 7:35 PM EDT [facility] Blood Venous blood specimen / Unknown Venipuncture / Unknown 03/20/2025 6:51 PM EDT 03/20/2025 7:09 PM EDT Dedra Driscoll RebE-House PA LAB BLOOD ORDERABLES Courtney l Result Performing Organization Address City/[facility] Co de Phone Number [facility] [address] [place] [address] * Lactic acid, venous (03/20/2025 6:51 PM EDT) [facility] Lactate, Venous, Whole Blood 1.7 0.5 - 2.2 mmol/L LAB HEMATOLOGY METHOD 03/20/2025 7:12 PM EDT [facility] Blood Venous blood specimen / Unknown Venipuncture / Unknown 03/20/2025 6:51 PM EDT 03/20/2025 7:08 PM EDT Result [facility] Dedra A Rebsamen PA LAB BLOOD ORDERABLES Courtney l Result [facility] [address] [place] [address] * Hepatitis C Antibody - ED (03/20/2025 6:51 PM EDT) Hepatitis C Antibody Negative Negative 03/20/2025 8:01 PM EDT [facility] Blood Venous blood specimen / Unknown Venipuncture / Unknown 03/20/2025 6:51 PM EDT 03/20/2025 7:09 PM EDT Dedra A Rebsamen PA LAB BLOOD ORDERABLES Courtney l Result Performing Organization Address City/[facility]/ZIP Co de Phone Number [facility] [address] [place] [address] * APTT (03/20/2025 6:51 PM EDT) Pathologist [facility] [place] aPTT 31 25 - 35 sec 03/20/2025 7:25 PM EDT [facility] Blood Venous blood specimen / Unknown Venipuncture / Unknown 03/20/2025 6:51 PM EDT 03/20/2025 7:08 PM EDT Result [facility] Dedra A Rebsamen PA LAB BLOOD ORDERABLES Courtney l Result Performing Organization Address City/[facility]/ZIP Co de Phone Number [facility] [address] [place] [address] * C-Reactive protein (03/20/2025 6:51 PM EDT) Pathologist [facility] [place] CRP, Plasma 5.2 <=8.0 mg/L 03/20/2025 7:35 PM EDT [facility] Blood Venous blood specimen / Unknown Venipuncture / Unknown 03/20/2025 6:51 PM EDT 03/20/2025 7:09 PM EDT Narrative [facility] - 03/20/2025 7:35 PM EDT This CRP test is appropriate for assessment of infection, systemic inflammation and/or tissue injury. To assess cardiovascular disease risk order high sensitivity CRP (CRPH). us Dedra Tweet Category LAB BLOOD ORDERABLES Courtney l Result Performing Organization Address [facility] Co de Phone Number [facility] [address] [place] [address] * Lipase (03/20/2025 6:51 PM EDT) Lipase, Plasma 19 19 - 63 U/L 03/20/2025 7:35 PM EDT [facility] Blood Venous blood specimen / Unknown Venipuncture / Unknown 03/20/2025 6:51 PM EDT 03/20/2025 7:09 PM EDT us Dedra A [employer] LAB BLOOD ORDERABLES Courtney l Result Performing Organization Address [facility] Phone Number [facility] [address] [place] [address] * EKG now - STAT (adult) (03/20/2025 5:31 PM EDT) EKG DIAGNOSIS CLASS Abnormal MUSE ECG Ventricular Rate 60 BPM MUSE ECG Atrial Rate 60 BPM MUSE ECG NE Interval 176 ms MUSE ECG QRSD Interval 86 ms MUSE ECG QT Interval 422 ms MUSE ECG QTC Interval 422 ms MUSE ECG P [place] 53 degrees MUSE ECG R [place] -37 degrees MUSE ECG T Wave [place] 80 degrees MUSE ECG Diagnosis Atrial-paced rhythm MUSE ECG Diagnosis Left axis deviation MUSE ECG Diagnosis T wave abnormality, consider anterior ischemia MUSE ECG Diagnosis Abnormal ECG MUSE ECG Diagnosis MUSE ECG Diagnosis Confirmed by J Carlos Campbell ([id number]) on 03/20/2025 5:41:58 PM MUSE ECG 03/20/2025 5:31 PM EDT 03/20/2025 5:41 PM EDT us Dedra A [employer] PA ECG ORDERABLES Final Res ult Performing Organization Address [facility] Co de Phone Number MUSE ECG * CT THORACIC OUTSIDE IMAGES (03/20/2025 1:13 PM EDT) Anatomical Region Laterality Modality Computed Tomogra phy 03/20/2025 1:13 PM EDT us External Provider IMG CT PROCEDURES Final Result * XR OUTSIDE IMAGES (03/20/2025 12:54 PM EDT) Anatomical Region Laterality Modality Radiographic Winnie ging 03/20/2025 12:5 4 PM EDT us External Provider IMG XR PROCEDURES Final Result * CT OUTSIDE IMAGES (03/20/2025 12:46 PM EDT) Only the most recent of2 resultswithin the time period is included. Anatomical Region Laterality Modality Computed Tomogra phy 03/20/2025 12:4 6 PM EDT us External Provider IMG CT PROCEDURES Final Result * CT CHEST WO IV CONTRAST (03/14/2025 [...] MD IMG CT PROCEDURES Final Res ult * (ABNORMAL) Alpha Fetoprotein, Serum (03/14/2025 8:38 AM EDT) Alpha Fetoprotein, Serum 1,098.0(H) <10.0 ng/mL 03/14/2025 10:22 AM EDT [facility] Blood Venous blood specimen / Unknown Venipuncture / Unknown 03/14/2025 8:38 AM EDT 03/14/2025 9:03 AM EDT Narrative [facility] - 03/14/2025 10:22 AM EDT Performed by Ricky electrochemiluminescent immunoassay which is traceable to the [facility]st [facility] IRP WHO Reference standard 72/255. Results obtained with different test methods or kits cannot be used interchangeably. Peter Do MD LAB BLOOD ORDERABLES Final Result Performing Organization Address [facility]/ZIP Co de Phone Number [facility] [address] [place] [address] * Cancer Antigen, GI (CA 19.9) (03/14/2025 8:38 AM EDT) CA 19.9 26.5 <36 U/mL 03/14/2025 10:22 AM EDT [facility] Blood Venous blood specimen / Unknown Venipuncture / Unknown 03/14/2025 8:38 AM EDT 03/14/2025 9:03 AM EDT Narrative [facility] - 03/14/2025 10:22 AM EDT Performed by Ricky electrochemiluminescent immunoassay. Results obtained with different test methods or kits cannot be used interchangeably. Peter Do MD LAB BLOOD ORDERABLES Final Result Performing Organization Address [facility] [place] [facility] Phone Number [facility] [address] [place] [address] * (ABNORMAL) CBC w/o differential (03/14/2025 8:38 AM EDT) WBC Count 5.56 3.70 - 10.30 10*3/uL LAB HEMATOLOGY METHOD 03/14/2025 9:51 AM EDT [facility] RBC Count 4.98 4.60 - 6.10 10*6/uL LAB HEMATOLOGY METHOD 03/14/2025 9:51 AM EDT [facility] HGB 15.9 13.7 - 17.5 g/dL LAB HEMATOLOGY METHOD 03/14/2025 9:51 AM EDT [facility] HCT 48.7 40.0 - 51.0 % LAB HEMATOLOGY METHOD 03/14/2025 9:51 AM EDT [facility] Platelet Count 96(L) 155 - 369 10*3/uL LAB HEMATOLOGY METHOD 03/14/2025 9:51 AM EDT [facility] MCV 98 79 - 98 fL LAB HEMATOLOGY METHOD 03/14/2025 9:51 AM EDT [facility] MCH 31.9 26.0 - 32.0 pg LAB HEMATOLOGY METHOD 03/14/2025 9:51 AM EDT [facility] MCHC 32.6 30.7 - 35.5 g/dL LAB HEMATOLOGY METHOD 03/14/2025 9:51 AM EDT [facility] RDW 17.2(H) 11.5 - 14.5 % LAB HEMATOLOGY METHOD 03/14/2025 9:51 AM EDT [facility] MPV 11.0 8.8 - 12.5 fL LAB HEMATOLOGY METHOD 03/14/2025 9:51 AM EDT [facility] nRBC 0.0 <=0.0 per 100 WBCs LAB HEMATOLOGY METHOD 03/14/2025 9:51 AM EDT [facility] Blood Venous blood specimen / Unknown Venipuncture / Unknown 03/14/2025 8:38 AM EDT 03/14/2025 9:03 AM EDT Peter Do MD LAB BLOOD ORDERABLES Final Result [facility] [address] [place] [id number] * (ABNORMAL) CEA, Serum (03/14/2025 8:38 AM EDT) CEA, Serum 5.2(H) <4.0 ng/mL 03/14/2025 10:22 AM EDT [facility] Blood Venous blood specimen / Unknown Venipuncture / Unknown 03/14/2025 8:38 AM EDT 03/14/2025 9:03 AM EDT Narrative [facility] - 03/14/2025 10:22 AM EDT Normal range for smokers: < 5.5 ng/ml Normal range for non-smokers: <=4.0 ng/ml Performed by Ricky electrochemiluminescent immunoassay. Results obtained with different test methods or kits cannot be used interchangeably. Peter Do MD LAB BLOOD ORDERABLES Final Result [facility] [address] [place] [address] * CT Abdomen w and wo IV [...] are consistent with and integrated into the [place] [employer] for the Study of Liver Diseases [...] are consistent with and integrated into the [place] Associationfor the Study of Liver Diseases (AASLD) [...] MD on 02/09/2025 3:29 PM us Isabella Phong Saucedo LAMPS TESTER AND INSPECTOR IMG CT PROCEDURES Final Re sult * CT MSK OUTSIDE IMAGES (01/12/2025 8:45 [...] Blood Venous blood specimen / Unknown 01/04/2025 Historical Provider LAB BLOOD ORDERABLES Courtney l Result * Total Bilirubin, Plasma (01/04/2025) External Bilirubin Total 1.3 mg/dL Blood Venous blood specimen / Unknown 01/04/2025 Historical Provider LAB BLOOD ORDERABLES Courtney l Result * Albumin, Plasma (01/04/2025) External Albumin 3.4 g/dL Blood Venous blood specimen / Unknown 01/04/2025 Result [facility] Provider LAB BLOOD ORDERABLES Courtney l Result from Last 3 Months Insurance [place] Advance Directives * Full Code (Latest Code Status on File) Date Activated Date Inactivated Comments 03/20/2025 7:46 PM 03/21/2025 8:56 PM Question Answer Comments I have reviewed the capacity from the link above and, if needed, have updated to appropriate status: Yes Care Teams Toll Relief Operator Relationship Specialty Start Date End Date Pcp, No [address] [place] [address] PCP - General Family Medicine 03/20/25 Isabella Saucedo APRN On license of [facility] [address] [place] [address] Referring Physician 02/26/25 Jeannie Mcmillan, RN [facility] [address] [place] [address] Registered Nurse Transplant Surgery 03/08/25 [place] [address] Registered Nurse Transplant Surgery 03/08/25
--- OUTSIDE RECORDS SUMMARY | 2025-03-29 09:05 | XMS_ITS | Encounter Summary ---
Author Organization [place] [address] Care Team Providers Care Clerical Transcriber Name Role Phone Jan Sin MD Unavailable [phone] Macario Pryor MD Unavailable [facility] Cr Resendez MD Primary Care Provider [phone] Reason for Visit * Reason Onset Date Comments Referral 12/29/2024 called annemarie thomason for status of the referral being sent to [facility] - please advise. Encounter Details Date Type Department Care Team (Late st Contact Info) Description 12/29/2024 Telephone [facility] [address] Cr Resendez MD [address] [place] [address] [place] [address] Referral ( called asking for status of the referral being sent to [facility] - please advise.) Social History Tobacco Use [...] Order US SCROTUM AND TESTICLES (Order # [id number]) on 12/27/2024 View Encounter What is the reason / diagnosis for this referral:K40.90 (ICD-10-CM) - 550.90 (ICD-9-CM) - Right inguinal hernia Have you been seen by your PCP for this issue: Yes Does patient have a preference on a group/provider: Yes (if yes, complete preferred provider info below) Preferred Provider/Group Name: [facility] Preferred Provider/Group Phone Number: Preferred Provider/Group Fax [...] documented as of this encounter Care Teams Clerical Transcriber Relationship Specialty Start Date End Date Macario Pryor MD [address] [place] [address] [place] [address] PCP - Hematology/Oncology Internal Medicine-Medical Oncology 11/12/15 Cr Resendez MD [address] [place] [address] [place] [address] PCP - General Family Medicine 11/24/21 Jan Sin MD [address] [place] [address] [place] [address] Internal Medicine-Cardiovascul ar Disease 08/28/14 documented as of this encounter
--- OUTSIDE RECORDS SUMMARY | 2025-03-29 09:06 | XMS_ITS | Encounter Summary ---
Author Organization [facility] Address [address] [place] [address] Care Team Providers Care Parts Delivery Driver Name Role Phone Isabella Saucedo SHREDDING MACHINE OPERATOR Unavailable [phone] Reason for Visit * Reason Comments Appointment Encounter Details Date Type Department Care Team (Late st Contact Info) Description 03/05/2025 Telephone [facility] [address] [place] [facility] [address] [place] [address] Angelita Reeves [place] [phone] Appointment Social History Tobacco Use Types Packs/Day [...] to reach his , Ashley at at. [phone]. Called patient's , Ashley and offered to [...] on filedocumented in this encounter Care Teams Parts Delivery Driver Relationship Specialty Start Date End Date Isabella Saucedo, SHREDDING MACHINE OPERATOR [address] [place] [address] Referring Physician 02/26/25 documented as of this encounter
--- OUTSIDE RECORDS SUMMARY | 2025-03-29 09:06 | XMS_ITS | Encounter Summary ---
Author Organization [facility] Address [address] [place] [address] Care Team Providers Care Toy Parts Former Supervisor Name Role Phone Isabella Saucedo VOLLEYBALL ASSEMBLER Unavailable [phone] Reason for Referral * Consultation (Routine) - Closed Specialty Diagnoses / Procedures Referred By Contac t Referred To Contact Transplant Diagnoses Elevated AFP Liver lesion Hepatic cirrhosis, unspecified hepatic cirrhosis type, unspecified whether ascites present (CMS/HCC) Isabella Saucedo APRN [address] [facility] [address] [place] [address] Phone: tel: fax: [facility] [address] [address] Phone: tel: fax: Referral ID Status Reason Start Date Expiration Date V isits Requested Visits Authorized [id number] Closed Specialty Services Required 03/06/2025 09/05/2026 1 1 Encounter Details Date Type Department Care Team (Late st Contact Info) Description 03/06/2025 Telephone [facility] [address] [address] Cici Ramírez [place] [phone] Social History Tobacco Use Types Packs/Day Years [...] LAB COAGULATION METHOD 03/14/2025 9:44 AM EDT [facility] INR 1.0 0.9 - 1.1 LAB COAGULATION METHOD 03/14/2025 9:44 AM EDT [facility] Blood Venous blood specimen / Unknown Venipuncture / Unknown 03/14/2025 8:38 AM EDT 03/14/2025 9:03 AM EDT Narrative [facility] - 03/14/2025 9:44 AM EDT OPTIMAL INR RANGES FOR PATIENT ON ORAL ANTICOAGULANT THERAPY Prevention of venous thromboembolism INR 2.0 to 3.0 In patients with heart disease: Atrial fibrillation INR 2.0 to 3.0 Valvular heart disease INR 2.0 to 3.0 Tissue heart valves INR 2.0 to 3.0 Mechanical prosthetic valves INR 2.5 to 3.5 Prevention of recurrent TN INR 2.5 to 3.5 Peter Do MD LAB BLOOD ORDERABLES Final Result [facility] [address] [place] [address] * (ABNORMAL) CBC w/o differential (03/14/2025 8:38 AM EDT) WBC Count 5.56 3.70 - 10.30 10*3/uL LAB HEMATOLOGY METHOD 03/14/2025 9:51 AM EDT [facility] RBC Count 4.98 4.60 - 6.10 10*6/uL LAB HEMATOLOGY METHOD 03/14/2025 9:51 AM EDT [facility] HGB 15.9 13.7 - 17.5 g/dL LAB HEMATOLOGY METHOD 03/14/2025 9:51 AM EDT [facility] HCT 48.7 40.0 - 51.0 % LAB HEMATOLOGY METHOD 03/14/2025 9:51 AM EDT [facility] Platelet Count 96(L) 155 - 369 10*3/uL LAB HEMATOLOGY METHOD 03/14/2025 9:51 AM EDT [facility] MCV 98 79 - 98 fL LAB HEMATOLOGY METHOD 03/14/2025 9:51 AM EDT [facility] MCH 31.9 26.0 - 32.0 pg LAB HEMATOLOGY METHOD 03/14/2025 9:51 AM EDT [facility] MCHC 32.6 30.7 - 35.5 g/dL LAB HEMATOLOGY METHOD 03/14/2025 9:51 AM EDT [facility] RDW 17.2(H) 11.5 - 14.5 % LAB HEMATOLOGY METHOD 03/14/2025 9:51 AM EDT [facility] MPV 11.0 8.8 - 12.5 fL LAB HEMATOLOGY METHOD 03/14/2025 9:51 AM EDT [facility] nRBC 0.0 <=0.0 per 100 WBCs LAB HEMATOLOGY METHOD 03/14/2025 9:51 AM EDT [facility] Blood Venous blood specimen / Unknown Venipuncture / Unknown 03/14/2025 8:38 AM EDT 03/14/2025 9:03 AM EDT us Peter Do MD LAB BLOOD ORDERABLES Final Result [facility] [address] [place] [address] * (ABNORMAL) Comprehensive Metabolic Panel (03/14/2025 8:38 AM EDT) Glucose, Plasma 104(H) 74 - 99 mg/dL 03/14/2025 9:30 AM EDT [facility] BUN, Plasma 12 8 - 23 mg/dL 03/14/2025 9:30 AM EDT [facility] Creatinine, Plasma 0.80 0.70 - 1.20 mg/dL 03/14/2025 9:30 AM EDT [facility] BUN/Creatinine Ratio 15 03/14/2025 9:30 AM EDT [facility] Sodium, Plasma 142 136 - 145 mmol/L 03/14/2025 9:30 AM EDT [facility] Potassium, Plasma 3.8 3.6 - 4.9 mmol/L 03/14/2025 9:30 AM EDT [facility] Chloride, Plasma 102 97 - 107 mmol/L 03/14/2025 9:30 AM EDT [facility] CO2, Plasma 28 22 - 29 mmol/L 03/14/2025 9:30 AM EDT [facility] Anion Gap 12 6 - 16 mmol/L 03/14/2025 9:30 AM EDT [facility] Total Calcium, Plasma 9.8 8.9 - 10.2 mg/dL 03/14/2025 9:30 AM EDT [facility] Total Protein 8.0(H) 6.3 - 7.9 g/dL 03/14/2025 9:30 AM EDT [facility] Albumin, Plasma 4.2 3.5 - 5.2 g/dL 03/14/2025 9:30 AM EDT [facility] AST, Plasma 78(H) 10 - 50 U/L 03/14/2025 9:30 AM EDT [facility] ALT, Plasma 50 10 - 50 U/L 03/14/2025 9:30 AM EDT [facility] Alkaline Phosphatase, Plasma 210(H) 40 - 115 U/L 03/14/2025 9:30 AM EDT [facility] Total Bilirubin, Plasma 0.8 0.2 - 1.1 mg/dL 03/14/2025 9:30 AM EDT [facility] eGFRcr 97.6 mL/min/1.7 3m*2 03/14/2025 9:30 AM EDT [facility] Comment:Reported eGFRcr in m L/min/1.73m2 is based the CKD-EPI 2020 equation that does not use a race coefficient. Blood Venous blood specimen / Unknown Venipuncture / Unknown 03/14/2025 8:38 AM EDT 03/14/2025 9:03 AM EDT Peter Do MD LAB BLOOD [place] [address] * (ABNORMAL) CEA, Serum (03/14/2025 8:38 AM EDT) CEA, Serum 5.2(H) <4.0 ng/mL 03/14/2025 10:22 AM EDT [facility] Blood Venous blood specimen / Unknown Venipuncture / Unknown 03/14/2025 8:38 AM EDT 03/14/2025 9:03 AM EDT Narrative [facility] - 03/14/2025 10:22 AM EDT Normal range for smokers: < 5.5 ng/ml Normal range for non-smokers: <=4.0 ng/ml Performed by Ricky electrochemiluminescent immunoassay. Results obtained with different test methods or kits cannot be used interchangeably. Peter Do MD LAB BLOOD ORDERABLES Final Result Performing Organization Address [facility] [place] [address] * Cancer Antigen, GI (CA 19.9) (03/14/2025 8:38 AM EDT) CA 19.9 26.5 <36 U/mL 03/14/2025 10:22 AM EDT [facility] Blood Venous blood specimen / Unknown Venipuncture / Unknown 03/14/2025 8:38 AM EDT 03/14/2025 9:03 AM EDT Narrative [facility] - 03/14/2025 10:22 AM EDT Performed by Ricky electrochemiluminescent immunoassay. Results obtained with different test methods or kits cannot be used interchangeably. Peter Do MD LAB BLOOD ORDERABLES Final Result [facility] [address] [place] [address] * (ABNORMAL) Alpha Fetoprotein, Serum (03/14/2025 8:38 AM EDT) Alpha Fetoprotein, Serum 1,098.0(H) <10.0 ng/mL 03/14/2025 10:22 AM EDT [facility] Blood Venous blood specimen / Unknown Venipuncture / Unknown 03/14/2025 8:38 AM EDT 03/14/2025 9:03 AM EDT Narrative [facility] - 03/14/2025 10:22 AM EDT Performed by Ricky electrochemiluminescent immunoassay which is traceable to the 1st AFP IRP WHO Reference standard 72/255. Results obtained with different test methods or kits cannot be used interchangeably. us Peter Do MD LAB BLOOD ORDERABLES Final Result [facility] [address] [place] [address] documented in this encounter Visit Diagnoses Diagnosis Liver lesion- Primary Other specified disorders of liver Elevated AFP Other nonspecific findings on examination of blood Hepatic cirrhosis, unspecified hepatic cirrhosis type, unspecified whether ascites present (CMS/HCC) Other abnormal tumor markers documented in this encounter Care Teams Toy Parts Former Supervisor Relationship Specialty Start Date End Date Isabella Saucedo APRN [address] [place] [address] [place] [address] Referring Physician 02/26/25 documented as of this encounter
--- OUTSIDE RECORDS SUMMARY | 2025-03-29 09:06 | XMS_ITS | Encounter Summary ---
Author Organization [facility] Address [address] [place] [address] Care Team Providers Care Infant And Toddler Teacher Name Role Phone Isabella Saucedo BLASTING CLAY MINER Unavailable [phone] Jeannie Mcmillan RN Unavailable [phone] [address] Shoemaker Unavailable [phone] Pcp, No Primary Care Provider Unavailabl e Reason for Referral * Consultation (Routine) - Authorized Specialty Diagnoses / Procedures Referred By Vicente alaniz Referred To Contact Hematology and Oncology Diagnoses Elevated alpha fetoprotein Liver tumor Isabella Saucedo APRN [address] [place] [address] Phone: tel: fax: Referral ID Status Reason Start Date Expiration Date Visits Requested Visits Authorized [id number] Authorized Specialty Services Required 02/20/2025 08/22/2026 1 1 Encounter Details Date Type Department Care Team (Late st Contact Info) Description 02/19/2025 Community [facility] [address] [place] [address] Isabella Saucedo APRN [address] [place] [address] Elevated alpha fetoprotein (Primary Dx); Liver tumor [...] system documented in this encounter Care Teams Infant And Toddler Teacher Relationship Specialty Start Date End Date Pcp, No [address] [place] [address] PCP - General Family Medicine 03/20/25 Isabella Saucedo APRN [facility] [facility] [address] [place] [address] Referring Physician 02/26/25 Jeannie Mcmillan, RN [facility]PLANT ADMINISTRATION [address] [place] [address] Registered Nurse Transplant Surgery 03/08/25 [place] [address] Registered Nurse Transplant Surgery 03/08/25 documented as of this encounter
--- OUTSIDE RECORDS SUMMARY | 2025-03-29 09:06 | XMS_ITS | Encounter Summary ---
Author Organization [facility] Address [address] [place] [address] Care Team Providers Care Complaint Evaluation Officer Name Role Phone Isabella Saucedo PRESSROOM FOREMAN Unavailable [phone] Jeannie Mcmillan RN Unavailable [phone] [address] Shoemaker Unavailable [phone] Reason for Referral * Imaging (Routine) - Closed Specialty Diagnoses / Procedures Referred By Contac t Referred To Contact Radiology Diagnoses Elevated AFP Liver lesion Hepatic cirrhosis, unspecified hepatic cirrhosis type, unspecified whether ascites present (CMS/HCC) Procedures CT CHEST WO IV CONTRAST Peter Do MD [address] [facility] [address] [place] [address] Phone: tel: fax: Referral ID Status Reason Start Date Expiration Date Visits Re quested Visits Authorized [id number] Closed 03/14/2025 09/13/2026 1 1 Encounter Details Date Type Department Care Team (Late st Contact Info) Description 03/14/2025 Orders Only [facility] [address] [facility] [address] [place] [address] [place] [address] Liver lesion (Primary Dx); Elevated [...] 0 03/14/2025 9:07 AM EDT Shari Moseely documented as of this encounter Plan of [...] documented as of this encounter Care Teams Complaint Evaluation Officer Relationship Specialty Start Date End Date Isabella Saucedo APRN [address] [place] [address] Referring Physician 02/26/25 Jeannie Mcmillan, RN CH[facility]TRANSPLANT ADMINISTRATION [address] [place] [address] Registered Nurse Transplant Surgery 03/08/25 Ebony Shoemaker [place] [phone] Registered Nurse Transplant Surgery 03/08/25 documented as of this encounter
--- OUTSIDE RECORDS SUMMARY | 2025-03-29 09:06 | XMS_ITS | Encounter Summary ---
Author Organization [facility] Address [address] [place] [address] Care Team Providers Care Sample Tailor Name Role Phone Isabella Saucedo DISPLAY DECORATOR Unavailable [phone] Jeannie Mcmillan RN Unavailable [phone] [address] Shoemaker Unavailable [phone] Pcp, No Primary Care Provider Unavailabl e Encounter Details Date Type Department Care Team (Late st Contact Info) Description 12/07/2024 Orders Only External Location [address] [place] [address] Provider, External Social History Tobacco Use Types [...] on filedocumented in this encounter Care Teams Sample Tailor Relationship Specialty Start Date End Date Pcp, No [address] [place] [address] PCP - General Family Medicine 03/20/25 Isabella Saucedo APRN [address] [place] [address] Referring Physician 02/26/25 Jeannie Mcmillan, RN CH-TRANSPLANT ADMINISTRATION [address] [place] [address] Registered Nurse Transplant Surgery 03/08/25 [place] [address] Registered Nurse Transplant Surgery 03/08/25 documented as of this encounter
--- OUTSIDE RECORDS SUMMARY | 2025-03-29 09:06 | XMS_ITS | Encounter Summary ---
Author Organization [facility] Address [address] [place] [address] Care Team Providers Care Accountant Helper Name Role Phone Isabella Saucedo BMX RIDER Unavailable [phone] Jeannie Mcmillan RN Unavailable [phone] Ebony Shoemaker Unavailable [phone] Pcp, No Primary Care Provider Unavailabl e Encounter Details Date Type Department Care Team (Late st Contact Info) Description 01/12/2025 Orders Only External Location [address] [place] [address] Provider, External Social History Tobacco Use Types [...] on filedocumented in this encounter Care Teams Accountant Helper Relationship Specialty Start Date End Date Pcp, No [address] [place] [address] PCP - General Family Medicine 03/20/25 Isabella Saucedo APRN [address] [place] [address] Referring Physician 02/26/25 Jeannie Mcmillan, RN CH-TRANSPLANT ADMINISTRATION [address] [place] [address] Registered Nurse Transplant Surgery 03/08/25 [place] [address] Registered Nurse Transplant Surgery 03/08/25 documented as of this encounter
--- OUTSIDE RECORDS SUMMARY | 2025-03-29 09:06 | XMS_ITS | Encounter Summary ---
Author Organization [place] [address] Care Team Providers Care Diagnostic Imaging Manager Name Role Phone Jan Sin MD Unavailable [phone] Macario Pryor MD Unavailable Unavailabl e Cr Resendez MD Primary Care Provider [phone] Reason for Visit * Reason Comments Medication Refill Encounter Details Date Type Department Care Team (Late st Contact Info) Description 02/20/2025 Refill SEP [facility] [place] [address] [address] Cr Resendez MD [address] [place] [address] [address] [place] [id number] Medication Refill Social History Tobacco Use Types [...] Tablet by mouth daily. 30 Tablet 02/21/2025 03/27/2025 documented in this encounter Plan of [...] documented as of this encounter Care Teams Diagnostic Imaging Manager Relationship Specialty Start Date End Date Macario Pryor MD [address] [place] [address] [place] [address] PCP - Hematology/Oncology Internal Medicine-Medical Oncology 11/12/15 Cr Resendez MD [address] [place] [address] [place] [address] PCP - General Family Medicine 11/24/21 Jan Sin MD [address] [place] [address] [place] [address] Internal Medicine-Cardiovascul ar Disease 08/28/14 documented as of this encounter
--- OUTSIDE RECORDS SUMMARY | 2025-03-29 09:06 | XMS_ITS | Encounter Summary ---
Author Organization [facility] Address [address] [place] [address] Care Team Providers Care Coin Collector Name Role Phone Cr Resendez MD Primary Care Provider [phone] Source Comments This information has been disclosed [...] release of HIV test results or diagnoses. [id number] Encounter Details Date Type Department Care Team (Late st Contact Info) Description 01/24/2025 Chart Note [facility] Interventional Pulmonary at [address] [address] Elizabeth Tabor, RN Chart Note: Incidental Findings Social History Tobacco Use Types Packs/Day Years Used Date Smoking Tobacco: Some Days Cigarettes Passive Smoke Exposure: Current Utilities Answer Date Recorded In the past 12 months has th [employer], gas, oil, or water company threatened to [...] any time in the past 12 m [facility], were you homeless or living in a [...] *Patient is in Lung Screening program at [facility], however this finding was not on most recentCT Lung Screening. Elizabeth Tabor RN Lung Nodule Coordinator Interventional Pulmonology [phone] 01/24/2025 12:04 PM * Elizabeth Tabor RN - 01/24/2025 12:04 PM EDT Call made to follow up on recent CT scan showing lung nodules. Explained recommendations and followup based on Fleischner Guidelines, and radiology read. - Patient plans to follow up with PCP closer to home. I explained the lung screening scans from [facility] and someone should compare scans. Pt had questions about Hernia Surgery, which I could not find any contact information for him (he said his has it anyway). - All questions answered. Pt very polite and appreciative. Elizabeth Tabor RN Lung Nodule Clinic Navigator [phone] documented in this encounter Plan of Treatment Not on file documented as of this encounter Visit Diagnoses Not on filedocumented in this encounter Care Teams Coin Collector Relationship Specialty Start Date End Date Cr Resendez MD [address] [place] [address] [place] [address] PCP - General Family Medicine 12/07/24 documented as of this encounter
--- OUTSIDE RECORDS SUMMARY | 2025-03-29 09:06 | XMS_ITS | Encounter Summary ---
Author Organization [facility] Address [address] [place] [address] Care Team Providers Care Merchandiser Retail Representative Name Role Phone Isabella Saucedo SENIOR CYBER SECURITY ANALYST Unavailable [phone] Reason for Visit * Reason Comments Referral - Liver Txp Encounter Details Date Type Department Care Team (Late st Contact Info) Description 02/26/2025 Telephone [facility] [address] [facility] [address] [place] [phone] Angelita Reeves [place] [phone] Referral - Liver Txp Social History Tobacco [...] Venous blood specimen / Unknown 01/04/2025 Result [facility] MD LAB BLOOD ORDERABLES Courtney l Result * Sodium, Plasma (01/04/2025) External Sodium 140 mmol/L Blood Venous blood specimen / Unknown 01/04/2025 Result [facility] LAB BLOOD ORDERABLES Courtney l Result * Creatinine, Plasma (01/04/2025) External Creatinine Blood 0.70 mg/dL Blood Venous blood specimen / Unknown 01/04/2025 Result [facility] LAB BLOOD ORDERABLES Courtney l Result * Total Bilirubin, Plasma (01/04/2025) External Bilirubin Total 1.3 mg/dL Blood Venous blood specimen / Unknown 01/04/2025 Result [facility] MD LAB BLOOD ORDERABLES Courtney l Result * Albumin, Plasma (01/04/2025) External Albumin 3.4 g/dL Blood Venous blood specimen / Unknown 01/04/2025 Result [facility] MD LAB BLOOD ORDERABLES Courtney l Result documented in this encounter Visit Diagnoses Not on filedocumented in this encounter Care Teams Merchandiser Retail Representative Relationship Specialty Start Date End Date Isabella Saucedo APRN [address] [place] [address] Referring Physician 02/26/25 documented as of this encounter
--- OUTSIDE RECORDS SUMMARY | 2025-03-29 09:06 | XMS_ITS | Encounter Summary ---
Author Organization Healthcare Address [address] [place] [address] Care Team Providers Care Flexo Folder Gluer Operator Name Role Phone Isabella Saucedo LOCK MASTER Unavailable [phone] Jeannie Mcmillan RN Unavailable [phone] Ebony Shoemaker Unavailable [phone] Pcp, No Primary Care Provider Unavailabl e Reason for Referral * Transplant (Routine) - Authorized Specialty Diagnoses / Procedures Referred By Vicente alaniz Referred To Contact Transplant Surgery / Transplant Diagnoses Invasion of liver, gallbladder, pancreas, ipsilateral branch of portal vein, 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 [address] [place] [address] Phone: tel: fax: Referral ID Status Reason Start Date Expiration Date Visits Requested Visits Authorized [id number] Authorized Specialty Services Required 02/26/[phone] Encounter Details Date Type Department Care Team (Late st Contact Info) Description 02/26/2025 [facility] [address] [place] [address] Isabella Saucedo APRN [address] [place] [address] [place] [address] Invasion of liver, gallbladder, pancreas, ipsilateral branch [...] (CMS/HCC) documented in this encounter Care Teams Flexo Folder Gluer Operator Relationship Specialty Start Date End Date Pcp, No [address] [place] [address] PCP - General Family Medicine 03/20/25 Isabella Saucedo APRN 1210 [facility] [place] [address] [place] [address] Referring Physician 02/26/25 Jeannie Mcmillan, RN [facility]TRANSPL[facility] ADMINISTRATION [address] [place] [address] Registered Nurse Transplant Surgery 03/08/25 [place] [address] Registered Nurse Transplant Surgery 03/08/25 documented as of this encounter
--- OUTSIDE RECORDS SUMMARY | 2025-03-29 09:06 | XMS_ITS | Encounter Summary ---
Author Organization [facility] Address [address] [place] [address] Care Team Providers Care Food Consultant Name Role Phone Isabella Saucedo Phong PHP WEBSITE DEVELOPER Unavailable [phone] Jeannie Mcmillan RN Unavailable [phone] Eb[address] Shoemaker Unavailable [phone] Reason for Referral * Consultation (Routine) - Authorized Specialty Diagnoses / Procedures Referred By Contac t Referred To Contact Medical Oncology Diagnoses Elevated AFP Liver lesion Peter Do MD [address] [address] Phone: tel: fax: Referral ID Status Reason Start Date Expiration Date Visits Requested Visits Authorized [id number] Authorized Consult and Treat 03/16/2025 09/15/2026 1 1 Reason for Visit * Reason Comments Txp Surgical Follow-up Ernestina: Tumor Boar d Discussion 03/16/25 Encounter Details Date Type Department Care Team (Late st Contact Info) Description 03/16/2025 Telephone [facility] [address] [address] [place] [address] Txp Surgical Follow-up (Ernestina: Tumor [...] documented as of this encounter Care Teams Food Consultant Relationship Specialty Start Date End Date Isabella Saucedo APRN [address] [place] [address] Referring Physician 02/26/25 Jeannie Mcmillan, RN [facility]ANSPLANT ADMINISTRATION [address] [place], [place] [address] Registered Nurse Transplant Surgery 03/08/25 Ebony Shoemaker [place] [id number] Registered Nurse Transplant Surgery 03/08/25 documented as of this encounter
--- OUTSIDE RECORDS SUMMARY | 2025-03-29 09:06 | XMS_ITS | Encounter Summary ---
Author Organization [facility] Address [address] [place] [address] Care Team Providers Care Office Services Coordinator Name Role Phone Isabella Saucedo CORK COMPOUNDER Unavailable [phone] Reason for Referral * Consultation (Routine) - Pending Review Specialty Diagnoses / Procedures Referred By Contac t Referred To Contact Transplant Diagnoses End-stage liver disease (CMS/HCC) Haroon Cannon MD [address] [address] Phone: tel: fax: [facility] [place] [address] [address] Phone: tel: fax: Referral ID Status Reason Start Date Expiration Date Visits Requested Visits Authorized [id number] Pending Review Specialty Services Required 03/06/2025 09/05/2026 1 1 Reason for Visit * Reason Comments Appointment Encounter Details Date Type Department Care Team (Late st Contact Info) Description 03/06/2025 Telephone [facility] [place] [address] [address] [place] [address] Appointment Social History Tobacco Use [...] name and contact information. Invite sent to myTips via text message. Called referring providers office, [...] disease documented in this encounter Care Teams Office Services Coordinator Relationship Specialty Start Date End Date Isabella Saucedo APRN [address] [place] [address] Referring Physician 02/26/25 documented as of this encounter
--- OUTSIDE RECORDS SUMMARY | 2025-03-29 09:06 | XMS_ITS | Encounter Summary ---
Author Organization [facility] Address [address] [place] [address] Care Team Providers Care Asphalt Paving Foreman Name Role Phone Isabella Saucedo SENSOR OPERATOR Unavailable [phone] Jeannie Mcmillan RN Unavailable [phone] Eb[address] Shoemaker Unavailable [phone] Encounter Details Date Type Department Care [...] on filedocumented in this encounter Care Teams Asphalt Paving Foreman Relationship Specialty Start Date End Date Isabella Saucedo APRN [address] [place] [address] Referring Physician 02/26/25 Jeannie Mcmillan, RN [facility]PL[facility] ADMINISTRATION [address] [place] [address] Registered Nurse Transplant Surgery 03/08/25 [place] [address] Registered Nurse Transplant Surgery 03/08/25 documented as of this encounter
--- OUTSIDE RECORDS SUMMARY | 2025-03-29 09:06 | XMS_ITS | Encounter Summary ---
Author Organization Healthcare Address [address] [place] [address] Care Team Providers Care Creative Arts Music Therapist Name Role Phone Isabella Saucedo ELECTRIC REPAIR SUPERVISOR Unavailable [phone] Jeannie Mcmillan RN Unavailable [phone] Eb[address] Shoemaker Unavailable [phone] Pcp, No Primary Care Provider Unavailabl e Encounter Details Date Type Department Care Team (Late st Contact Info) Description 01/04/2025 Orders Only External Location [address] [place] [address] Provider, External Social History Tobacco Use Types [...] on filedocumented in this encounter Care Teams Creative Arts Music Therapist Relationship Specialty Start Date End Date Pcp, No [address] [place] [address] PCP - General Family Medicine 03/20/25 Isabella Saucedo, ELECTRIC REPAIR SUPERVISOR [address] [place] [address] Referring Physician 02/26/25 Jeannie Mcmillan, RN [facility]PL[facility] ADMINISTRATION [address] [place] [address] Registered Nurse Transplant Surgery 03/08/25 [place] [address] Registered Nurse Transplant Surgery 03/08/25 documented as of this encounter
--- OUTSIDE RECORDS SUMMARY | 2025-03-29 09:06 | XMS_ITS | Encounter Summary ---
Author Organization Healthcare Address [address] [place] [address] Care Team Providers Care Senior Technical Manager Name Role Phone Isabella Saucedo AQUATICS DIRECTOR Unavailable [phone] Jeannie Mcmillan RN Unavailable [phone] [address] Shoemaker Unavailable [phone] Pcp, No Primary Care Provider Unavailabl e Encounter Details Date Type Department Care Team (Late st Contact Info) Description 01/12/2025 Orders Only External Location [address] [place] [address] Provider, External Social History Tobacco Use Types [...] on filedocumented in this encounter Care Teams Senior Technical Manager Relationship Specialty Start Date End Date Pcp, No [address] [place] [address] PCP - General Family Medicine 03/20/25 Isabella Saucedo, AQUATICS DIRECTOR [address] [place] [address] Referring Physician 02/26/25 Jeannie Mcmillan, RN [facility]IST[facility]ATION [address] [place] [address] Registered Nurse Transplant Surgery 03/08/25 [place] [address] Registered Nurse Transplant Surgery 03/08/25 documented as of this encounter
--- OUTSIDE RECORDS SUMMARY | 2025-03-29 09:06 | XMS_ITS | Encounter Summary ---
Author Organization [facility] Address [address] [place] [address] Care Team Providers Care Brokerage Coordinator Name Role Phone Isabella Saucedo STEEL PLATE CAULKER Unavailable [phone] Jeannie Mcmillan RN Unavailable Ebony Shoeamker Unavailable [phone] Encounter Details Date Type Department Care [...] documented as of this encounter Care Teams Brokerage Coordinator Relationship Specialty Start Date End Date Lewis Isabella Darling APRN [address] [place] [address] Referring Physician 02/26/25 Jeannie Mcmillan, RN [facility]IST[facility]ATION [address] [place] [address] Registered Nurse Transplant Surgery 03/08/25 [place] [address] Registered Nurse Transplant Surgery 03/08/25 documented as of this encounter
--- OUTSIDE RECORDS SUMMARY | 2025-03-29 09:06 | XMS_ITS | Encounter Summary ---
Author [place] [address] Care Team Providers Care Customer Quality Engineer Name Role Phone Jan Sin MD Unavailable [phone] Macario Pryor MD Unavailable Unavailformerly [facility] Cr Resendez MD Primary Care Provider Reason for Visit * Reason Onset Date Comments Paperwork/forms 02/22/2025 Encounter Details Date Type Department Care Team (Late st Contact Info) Description 02/22/2025 Telephone SEP Luis [facility] [place] [address] [address] Cr Resendez MD [address] [place] [address] [place] [address] Paperwork/forms Social History Tobacco Use Types [...] We have received paperwork from [employer]IP[employer] compliant [employer] , I spoke to the patient and his they stated they have never used [employer] , the phone number they are calling from is [phone] thefax number that is on the paperwork [phone] , this paperwork is not being filled [...] documented as of this encounter Care Teams Customer Quality Engineer Relationship Specialty Start Date End Date Macario Pryor MD [address] [place] [address] [place] [address] PCP - Hematology/Oncology Internal Medicine-Medical Oncology 11/12/15 Cr Resendez MD [address] [place] [address] [place] [id number] PCP - General Family Medicine 11/24/21 Jan Sin MD [address] [place] [address] [place] [address] Internal Medicine-Cardiovascul ar Disease 08/28/14 documented as of this encounter
--- OUTSIDE RECORDS SUMMARY | 2025-03-29 09:07 | XMS_ITS | Encounter Summary ---
Author Organization Healthcare Address [address] [place] [address] Care Team Providers Care Engineering Drawings Checker Name Role Phone Isabella Saucedo EDUCATION ANALYST Unavailable [phone] Jeannie Mcmillan RN Unavailable [phone] Eb[address] Shoemaker Unavailable [phone] Pcp, No Primary Care Provider Unavailabl e Encounter Details Date Type Department Care Team (Late st Contact Info) Description 05/26/2022 Orders Only External Location [address] [place] [address] Provider, External Social History Tobacco Use Types [...] on filedocumented in this encounter Care Teams Engineering Drawings Checker Relationship Specialty Start Date End Date Pcp, No [address] [place] [address] PCP - General Family Medicine 03/20/25 Isabella Saucedo, EDUCATION ANALYST [address] [place] [address] Referring Physician 02/26/25 Jeannie Mcmillan, RN [facility]TR[facility]PL[facility] ADMINISTRATION [address] [place] [address] Registered Nurse Transplant Surgery 03/08/25 [place] [address] Registered Nurse Transplant Surgery 03/08/25 documented as of this encounter
--- OUTSIDE RECORDS SUMMARY | 2025-03-29 09:07 | XMS_ITS ---
Author Organization [facility] Address [address] [place] [address] Care Team Providers Care Infertility Medical Assistant Name Role Phone Isabella Saucedo OFFICE TECHNOLOGIST Unavailable [phone] Jeannie Mcmillan RN Unavailable [phone] Eb[address] Shoemaker Unavailable [phone] Pcp, No Primary Care Provider Unavailabl e Transplant Episode Liver Candidate [facility] ([place], [place]) - [facility] Referred on 02/26/2025 Marked as Ineligible on 03/06/2025 Reason: Transfered to Another Program Liver CoordinatorAngelita Reeves Fax: N/A Email: N/A Scores Score Value Updated Expires Exceptions/Tess sons CPRA Not available MELD (Calc) 7 03/21/2025 Care Team Name Role Phone Fax Email Angelita Reeves Liver Coordinator [phone] N/A N/A Gloria Chau LCSW Bottle Label Inspector [phone] N/A N/A Isabella Saucedo APRN Referring Physician [phone] N/A Haroon Cannon MD Surgeon [phone] N/A Events Pre-Transplant Referred: 02/26/2025 Appointments (02/26/2025 - 04/29/2025) When With Visit Type Description 03/14/2025 Transplant - Alessio Millan El evated AFP; Liver lesion; Hepatic cirrhosis, unspecified hepatic cirrhosis type, unspecified whether ascites present (CMS/HCC); Other abnormal tumor markers 03/14/2025 Transplant - Dante Do Initial Cl inic Evaluation HCC (hepatocellular carcinoma) (Primary Dx)
--- OUTSIDE RECORDS SUMMARY | 2025-03-29 09:07 | XMS_ITS | Encounter Summary ---
Author Organization Healthcare Address [address] [place] [address] Care Team Providers Care Shank Breaker Name Role Phone Isabella Saucedo WEAVING LOOM OPERATOR Unavailable [phone] Jeannie Mcmillan RN Unavailable [phone] Ebony Shoemaker Unavailable [phone] Pcp, No Primary Care Provider Unavailabl e Encounter Details Date Type Department Care Team (Late st Contact Info) Description 12/06/2024 Orders Only External Location [address] [place] [address] Provider, External Social History Tobacco Use Types [...] PM EDT) Anatomical Region Laterality Modality Radiographic Winine ging 12/06/2024 3:42 PM EDT us External Provider IMG XR PROCEDURES Final Result documented in this encounter Visit Diagnoses Not on filedocumented in this encounter Care Teams Shank Breaker Relationship Specialty Start Date End Date Pcp, No [address] [place] [address] PCP - General Family Medicine 03/20/25 Isabella Saucedo, WEAVING LOOM OPERATOR [address] [place] [address] Referring Physician 02/26/25 Jeannie Mcmillan, RN [facility]TRANSPLANT ADMINISTRATION [address] [place] [address] Registered Nurse Transplant Surgery 03/08/25 [place] [address] Registered Nurse Transplant Surgery 03/08/25 documented as of this encounter
--- OUTSIDE RECORDS SUMMARY | 2025-03-29 09:07 | XMS_ITS | Encounter Summary ---
Author Organization Healthcare Address [address] [place] [address] Care Team Providers Care Making Machine Operator Name Role Phone Isabella Saucedo DRILLER AND REAMER Unavailable [phone] Jeannie Mcmillan RN Unavailable [phone] Ebony Shoemaker Unavailable [phone] Pcp, No Primary Care Provider Unavailabl e Encounter Details Date Type Department Care Team (Late st Contact Info) Description 11/15/2024 Orders Only External Location [address] [place] [address] Provider, External Social History Tobacco Use Types [...] on filedocumented in this encounter Care Teams Making Machine Operator Relationship Specialty Start Date End Date Pcp, No [address] [place] [address] PCP - General Family Medicine 03/20/25 Isabella Saucedo, DRILLER AND REAMER [address] [place] [address] Referring Physician 02/26/25 Jeannie Mcmillan, RN CH-TRANSPLANT ADMINISTRATION [address] [place] [address] Registered Nurse Transplant Surgery 03/08/25 [place] [address] Registered Nurse Transplant Surgery 03/08/25 documented as of this encounter
--- OUTSIDE RECORDS SUMMARY | 2025-03-29 09:07 | XMS_ITS | Encounter Summary ---
Author Organization Healthcare Address [address] [place] [address] Care Team Providers Care Manager Embalmer Funeral Director Name Role Phone Isabella Saucedo HIP HOP PERFORMERS Unavailable [phone] Jeannie Mcmillan RN Unavailable [phone] Ebony Shoemaker Unavailable [phone] Pcp, No Primary Care Provider Unavailabl e Encounter Details Date Type Department Care Team (Late st Contact Info) Description 12/06/2024 Orders Only External Location [address] [place] [address] Provider, External Social History Tobacco Use Types [...] Radiographic Winnie ging 12/06/2024 3:22 PM EDT us External Provider IMG XR PROCEDURES Final Result documented in this encounter Visit Diagnoses Not on filedocumented in this encounter Care Teams Manager Embalmer Funeral Director Relationship Specialty Start Date End Date Pcp, No [address] [place] [address] PCP - General Family Medicine 03/20/25 Isabella Saucedo, HIP HOP PERFORMERS [address] [place] [address] Referring Physician 02/26/25 Jeannie Mcmillan, RN CH-TRANSPLANT ADMINISTRATION [address] [place] [address] Registered Nurse Transplant Surgery 03/08/25 [place] [address] Registered Nurse Transplant Surgery 03/08/25 documented as of this encounter
--- OUTSIDE RECORDS SUMMARY | 2025-03-29 09:07 | XMS_ITS | Encounter Summary ---
Author Organization Healthcare Address [address] [place] [address] Care Team Providers Care Radio Interference Trouble Shooter Name Role Phone Isabella Saucedo ORDER PACKER OR PACKAGER Unavailable [phone] Jeannie Mcmillan RN Unavailable [phone] Ebony Shoemaker Unavailable [phone] Pcp, No Primary Care Provider Unavailabl e Encounter Details Date Type Department Care Team (Late st Contact Info) Description 12/06/2024 Orders Only External Location [address] [place] [address] Provider, External Social History Tobacco Use Types [...] Radiographic Winnie ging 12/06/2024 3:16 PM EDT us External Provider IMG XR PROCEDURES Final Result documented in this encounter Visit Diagnoses Not on filedocumented in this encounter Care Teams Radio Interference Trouble Shooter Relationship Specialty Start Date End Date Pcp, No [address] [place] [address] PCP - General Family Medicine 03/20/25 Isabella Saucedo, ORDER PACKER OR PACKAGER [address] [place] [address] Referring Physician 02/26/25 Jeannie Mcmillan, RN CH-TRANSPLANT ADMINISTRATION [address] [place] [address] Registered Nurse Transplant Surgery 03/08/25 [place] [address] Registered Nurse Transplant Surgery 03/08/25 documented as of this encounter
--- OUTSIDE RECORDS SUMMARY | 2025-03-29 09:07 | XMS_ITS | Encounter Summary ---
Author Organization Healthcare Address [address] [place] [address] Care Team Providers Care Airplane Navigator Name Role Phone Isabella Saucedo HOSPITALITY DIRECTOR Unavailable [phone] Jeannie Mcmillan RN Unavailable [phone] Ebony Shoemaker Unavailable [phone] Pcp, No Primary Care Provider Unavailabl e Encounter Details Date Type Department Care Team (Late st Contact Info) Description 06/03/2022 Orders Only External Location [address] [place] [address] Provider, External Social History Tobacco Use Types [...] on filedocumented in this encounter Care Teams Airplane Navigator Relationship Specialty Start Date End Date Pcp, No [address] [place] [address] PCP - General Family Medicine 03/20/25 Isabella Saucedo, HOSPITALITY DIRECTOR [address] [place] [address] Referring Physician 02/26/25 Jeannie Mcmillan, RN CH-TRANSPLANT ADMINISTRATION [address] [place] [address] Registered Nurse Transplant Surgery 03/08/25 [place] [address] Registered Nurse Transplant Surgery 03/08/25 documented as of this encounter
--- OUTSIDE RECORDS SUMMARY | 2025-03-29 09:07 | XMS_ITS | Encounter Summary ---
Author Organization Healthcare Address [address] [place] [address] Care Team Providers Care Video Control Engineer Name Role Phone Isabella Saucedo ACCOUNTANT MACHINE PROCESSING Unavailable [phone] Jeannie Mcmillan RN Unavailable [phone] Ebony Shoemaker Unavailable [phone] Pcp, No Primary Care Provider Unavailabl e Encounter Details Date Type Department Care Team (Late st Contact Info) Description 05/26/2022 Orders Only External Location [address] [place] [address] Provider, External Social History Tobacco Use Types [...] on filedocumented in this encounter Care Teams Video Control Engineer Relationship Specialty Start Date End Date Pcp, No [address] [place] [address] PCP - General Family Medicine 03/20/25 Isabella Saucedo, ACCOUNTANT MACHINE PROCESSING [address] [place] [address] Referring Physician 02/26/25 Jeannie Mcmillan, RN CH-TRANSPLANT ADMINISTRATION [address] [place] [address] Registered Nurse Transplant Surgery 03/08/25 [place] [address] Registered Nurse Transplant Surgery 03/08/25 documented as of this encounter
--- OUTSIDE RECORDS SUMMARY | 2025-03-29 09:07 | XMS_ITS | Encounter Summary ---
Author Organization Healthcare Address [address] [place] [address] Care Team Providers Care Upholstery Parts Sorter Name Role Phone Isabella Saucedo MAYONNAISE MIXER Unavailable [phone] Jeannie Mcmillan RN Unavailable [phone] Ebony Shoemaker Unavailable [phone] Pcp, No Primary Care Provider Unavailabl e Encounter Details Date Type Department Care Team (Late st Contact Info) Description 11/22/2024 Orders Only External Location [address] [place] [address] Provider, External Social History Tobacco Use Types [...] on filedocumented in this encounter Care Teams Upholstery Parts Sorter Relationship Specialty Start Date End Date Pcp, No 800 [place] [address] PCP - General Family Medicine 03/20/25 Isabella Saucedo APRN [address] [place] [address] [place] [address] Referring Physician 02/26/25 Jeannie Mcmillan, RN [facility] [address] [place] [address] Registered Nurse Transplant Surgery 03/08/25 [place] [address] Registered Nurse Transplant Surgery 03/08/25 documented as of this encounter
--- OUTSIDE RECORDS SUMMARY | 2025-03-29 09:07 | XMS_ITS | Encounter Summary ---
Author Organization Healthcare Address [address] [place] [address] Care Team Providers Care Pig Casting Machine Operator Name Role Phone Isabella Saucedo TRANSCRIPT EVALUATOR Unavailable [phone] Jeannie Mcmillan RN Unavailable [phone] Ebony Shoemaker Unavailable [phone] Pcp, No Primary Care Provider Unavailabl e Encounter Details Date Type Department Care Team (Late st Contact Info) Description 12/07/2024 Orders Only External Location 800 [place] [address] Provider, External Social History Tobacco Use Types [...] on filedocumented in this encounter Care Teams Pig Casting Machine Operator Relationship Specialty Start Date End Date Pcp, No 800 [place] [address] PCP - General Family Medicine 03/20/25 Isabella Saucedo, TRANSCRIPT EVALUATOR [address] [place] [address] Referring Physician 02/26/25 Jeannie Mcmillan, RN [facility] [address] [place] [address] Registered Nurse Transplant Surgery 03/08/25 [place] [address] Registered Nurse Transplant Surgery 03/08/25 documented as of this encounter
--- OUTSIDE RECORDS SUMMARY | 2025-03-29 09:07 | XMS_ITS | Encounter Summary ---
Author Organization Healthcare Address [address] [place] [address] Care Team Providers Care Fine Patcher Name Role Phone Isabella Saucedo TONAL REGULATOR Unavailable [phone] Jeannie Mcmillan RN Unavailable Ebony Shoemaker Unavailable [phone] Pcp, No Primary Care Provider Unavailabl e Encounter Details Date Type Department Care Team (Late st Contact Info) Description 12/06/2024 Orders Only External Location 800 [place] [address] Provider, External Social History Tobacco Use Types [...] on filedocumented in this encounter Care Teams Fine Patcher Relationship Specialty Start Date End Date Pcp, No 800 [place] [address] PCP - General Family Medicine 03/20/25 Isabella Saucedo APRN [address] [place] [address] Referring Physician 02/26/25 Jeannie Mcmillan, RN [facility] [address] [place] [address] Registered Nurse Transplant Surgery 03/08/25 [place] [address] Registered Nurse Transplant Surgery 03/08/25 documented as of this encounter
--- OUTSIDE RECORDS SUMMARY | 2025-03-29 09:07 | XMS_ITS | Encounter Summary ---
Author Organization Healthcare Address [address] [place] [address] Care Team Providers Care Towel Rolling Machine Operator Name Role Phone Isabella Saucedo RAILWAY ENGINEER Unavailable [phone] Jeannie Mcmillan RN Unavailable [phone] Ebony Shoemaker Unavailable [phone] Pcp, No Primary Care Provider Unavailabl e Encounter Details Date Type Department Care Team (Late st Contact Info) Description 12/06/2024 Orders Only External Location [address] [place] [address] Provider, External Social History Tobacco Use Types [...] on filedocumented in this encounter Care Teams Towel Rolling Machine Operator Relationship Specialty Start Date End Date Pcp, No 800 [place] [address] PCP - General Family Medicine 03/20/25 Isabella Saucedo APRN [address] [place] [address] Referring Physician 02/26/25 Jeannie Mcmillan, RN [facility] [address] [place] [address] Registered Nurse Transplant Surgery 03/08/25 [place] [address] Registered Nurse Transplant Surgery 03/08/25 documented as of this encounter
--- OUTSIDE RECORDS SUMMARY | 2025-03-29 09:07 | XMS_ITS | Encounter Summary ---
Author Organization Healthcare Address [address] [place] [address] Care Team Providers Care Card Lacer Name Role Phone Isabella Saucedo CORRESPONDENCE COORDINATOR Unavailable [phone] Jeannie Mcmillan RN Unavailable [phone] Ebony Shoemaker Unavailable [phone] Pcp, No Primary Care Provider Unavailabl e Encounter Details Date Type Department Care Team (Late st Contact Info) Description 12/06/2024 Orders Only External Location [address] [place] [address] Provider, External Social History Tobacco Use Types [...] Radiographic Winnie ging 12/06/2024 3:12 PM EDT us External Provider IMG XR PROCEDURES Final Result documented in this encounter Visit Diagnoses Not on filedocumented in this encounter Care Teams Card Lacer Relationship Specialty Start Date End Date Pcp, No 800 [place] [address] PCP - General Family Medicine 03/20/25 Isabella Saucedo, CORRESPONDENCE COORDINATOR [address] [place] [address] [place] [address] Referring Physician 02/26/25 Jeannie Mcmillan, RN [facility] [address] [place] [address] Registered Nurse Transplant Surgery 03/08/25 [place] [address] Registered Nurse Transplant Surgery 03/08/25 documented as of this encounter
--- OUTSIDE RECORDS SUMMARY | 2025-03-29 09:07 | XMS_ITS | Encounter Summary ---
Author Organization Healthcare Address [address] [place] [address] Care Team Providers Care Internet Systems Administrator Name Role Phone Isabella Saucedo PICTURE ENLARGER Unavailable [phone] Jeannie Mcmillan RN Unavailable [phone] Ebony Shoemaker Unavailable [phone] Pcp, No Primary Care Provider Unavailabl e Encounter Details Date Type Department Care Team (Late st Contact Info) Description 12/06/2024 Orders Only External Location 800 [place] [address] Provider, External Social History Tobacco Use Types [...] Radiographic Winnie ging 12/06/2024 3:23 PM EDT us External Provider IMG XR PROCEDURES Final Result documented in this encounter Visit Diagnoses Not on filedocumented in this encounter Care Teams Internet Systems Administrator Relationship Specialty Start Date End Date Pcp, No 800 [place] [address] PCP - General Family Medicine 03/20/25 Isabella Saucedo, PICTURE ENLARGER [address] [place] [address] Referring Physician 02/26/25 Jeannie Mcmillan, RN [facility] [address] [place] [address] Registered Nurse Transplant Surgery 03/08/25 [place] [address] Registered Nurse Transplant Surgery 03/08/25 documented as of this encounter
--- OUTSIDE RECORDS SUMMARY | 2025-03-29 09:07 | XMS_ITS | Encounter Summary ---
Author Organization Healthcare Address [address] [place] [address] Care Team Providers Care Human Performance Consultant Name Role Phone Isabella Saucedo STOCK PREPARATION SUPERVISOR Unavailable [phone] Encounter Details Date Type Department Care Team [...] on filedocumented in this encounter Care Teams Human Performance Consultant Relationship Specialty Start Date End Date Isabella Saucedo APRN [address] [place] [address] Referring Physician 02/26/25 documented as of this encounter
--- OUTSIDE RECORDS SUMMARY | 2025-03-29 09:07 | XMS_ITS | Encounter Summary ---
Author Organization Healthcare Address [address] [place] [address] Care Team Providers Care Communications Specialist Name Role Phone Isabella Saucedo HIGHWAY MAINTAINER Unavailable [phone] Jeannie Mcmillan RN Unavailable [phone] Ebony Shoemaker Unavailable [phone] Pcp, No Primary Care Provider Unavailabl e Encounter Details Date Type Department Care Team (Late st Contact Info) Description 12/06/2024 Orders Only External Location [address] [place] [address] Provider, External Social History Tobacco Use Types [...] Radiographic Winnie ging 12/06/2024 3:42 PM EDT us External Provider IMG XR PROCEDURES Final Result documented in this encounter Visit Diagnoses Not on filedocumented in this encounter Care Teams Communications Specialist Relationship Specialty Start Date End Date Pcp, No [address] [place] [address] PCP - General Family Medicine 03/20/25 Isabella Saucedo, HIGHWAY MAINTAINER [address] [place] [address] Referring Physician 02/26/25 Jeannie Mcmillan, RN [facility] [address] [place] [address] Registered Nurse Transplant Surgery 03/08/25 [place] [address] Registered Nurse Transplant Surgery 03/08/25 documented as of this encounter
--- OUTSIDE RECORDS SUMMARY | 2025-03-29 09:07 | XMS_ITS | Encounter Summary ---
Author Organization Healthcare Address [address] [place] [address] Care Team Providers Care Relocation Director Name Role Phone Isabella Saucedo KEY CARRIER Unavailable [phone] Jeannie Mcmillan RN Unavailable [phone] Ebony Shoemaker Unavailable [phone] Pcp, No Primary Care Provider Unavailabl e Encounter Details Date Type Department Care Team (Late st Contact Info) Description 01/14/2024 Orders Only External Location 800 [place] [address] Provider, External Social History Tobacco Use Types [...] on filedocumented in this encounter Care Teams Relocation Director Relationship Specialty Start Date End Date Pcp, No [address] [place] [address] PCP - General Family Medicine 03/20/25 Isabella Saucedo, KEY CARRIER [address] [place] [address] Referring Physician 02/26/25 Jeannie Mcmillan, RN [facility] [address] [place] [address] Registered Nurse Transplant Surgery 03/08/25 [place] [address] Registered Nurse Transplant Surgery 03/08/25 documented as of this encounter
--- OUTSIDE RECORDS SUMMARY | 2025-03-29 09:07 | XMS_ITS | Encounter Summary ---
Author Organization Healthcare Address [address] [place] [address] Care Team Providers Care Horticultural Farmer Name Role Phone Isabella Saucedo BUILDING SERVICEMAN Unavailable [phone] Jeannie Mcmillan RN Unavailable [phone] Ebony Shoemaker Unavailable [phone] Pcp, No Primary Care Provider Unavailabl e Encounter Details Date Type Department Care Team (Late st Contact Info) Description 12/06/2024 Orders Only External Location [address] [place] [address] Provider, External Social History Tobacco Use Types [...] Radiographic Winnie ging 12/06/2024 3:39 PM EDT us External Provider IMG XR PROCEDURES Final Result documented in this encounter Visit Diagnoses Not on filedocumented in this encounter Care Teams Horticultural Farmer Relationship Specialty Start Date End Date Pcp, No [address] [place] [address] PCP - General Family Medicine 03/20/25 Isabella Saucedo, BUILDING SERVICEMAN [address] [place] [address] Referring Physician 02/26/25 Jeannie Mcmillan, RN [facility] [address] [place] [address] Registered Nurse Transplant Surgery 03/08/25 [place] [address] Registered Nurse Transplant Surgery 03/08/25 documented as of this encounter
--- OUTSIDE RECORDS SUMMARY | 2025-03-29 09:07 | XMS_ITS | Encounter Summary ---
Author Organization Healthcare Address [address] [place] [address] Care Team Providers Care It Support Technician Name Role Phone Isabella Saucedo DRIVER LICENSE AGENT Unavailable [phone] Jeannie Mcmillan RN Unavailable [phone] Ebony Shoemaker Unavailable [phone] Pcp, No Primary Care Provider Unavailabl e Encounter Details Date Type Department Care Team (Late st Contact Info) Description 01/06/2024 Orders Only External Location [address] [place] [address] Provider, External Social History Tobacco Use Types [...] on filedocumented in this encounter Care Teams It Support Technician Relationship Specialty Start Date End Date Pcp, No [address] [place] [address] PCP - General Family Medicine 03/20/25 Isabella Saucedo, DRIVER LICENSE AGENT [address] [place] [address] Referring Physician 02/26/25 Jeannie Mcmillan, RN [facility] [address] [place] [address] Registered Nurse Transplant Surgery 03/08/25 [place] [address] Registered Nurse Transplant Surgery 03/08/25 documented as of this encounter
[2025-03-29 09:40] LABS: Hematocrit 42.0 % (42.0-52.0); Hemoglobin 13.8 g/dL (14.1-18.0); Immature Granulocytes % 0.7 %; Mean Corpuscular HGB Conc 32.9 g/dL (31.8-35.4); Mean Corpuscular Hemoglobin 32.0 pg (27.0-31.2); Mean Corpuscular Volume 97.4 fl (80-94); Nucleated Red Blood Cells % 0 %; Platelet Count 149 K/mm3 (142-424); Red Blood Count 4.31 M/mm3 (4.60-6.20); Red Cell Distribution Width-SD 54.3 fL; White Blood Count 4.5 K/mm3 (4.8-10.8)
[2025-03-29 09:41] LABS: Albumin Level 3.2 g/dl (3.5-5.0); Chloride 97 mmol/L (98-107)
[2025-03-29 09:42] LABS: Sodium 137 mmol/L (136-145)
[2025-03-29 09:44] LABS: Alanine Aminotransferase 24 U/L (12-78); Anion Gap 7.8 mEq/L (5-15); Aspartate Amino Transferase 54 U/L (17-59); Blood Urea Nitrogen 15 mg/dl (9-20); Carbon Dioxide 35 mmol/L (22.0-30.0); Creatinine Clearance Estimated 63 mL/min (50-200); Creatinine,Serum 0.80 mg/dl (0.66-1.25); Estimated Glomerular Filt Rate 97 ml/min (>60); GFR (African American) 117 ML/MIN (>60)
[2025-03-29 09:45] LABS: Albumin/Globulin Ratio 0.7 (1.1-1.8); Alkaline Phosphatase 168 U/L (38-126); Bilirubin,Total 1.2 mg/dl (0.2-1.3); Calcium 9.4 mg/dl (8.4-10.2); Globulin 4.7 g/dL (1.3-3.2); Glucose 116 mg/dl (74-100); Total Protein,Serum 7.9 g/dl (6.3-8.2)
[2025-03-29 10:13] LABS: Potassium 2.8 mmoL/L (3.5-5.1)
[2025-03-29] MEDS: ATEZOLIZUMAB IV (10:35)
[2025-03-29] MEDS: SODIUM CHLORIDE 0.9% IV (10:35)
[2025-03-29 10:36] LABS: Magnesium 1.9 mg/dl (1.6-2.3)
[2025-03-29 11:07] LABS: Thyroid Stimulating Hormone 0.22 uIU/mL (0.465-4.68)
[2025-03-29] MEDS: 0.9% NaCl w/40mEq KCL 1,000 ML 500 ML IV (11:50)
[2025-03-29 13:18] LABS: Microscopic, Urine URINE MICROSCOPIC (MICROSCOPIC)
[2025-03-29 13:58] LABS: Bilirubin,Urine Negative (Negative); Color,Urine YELLOW (Yellow); Glucose,Urine (UA) 3+ (Negative); Ketones,Urine Negative (Negative); Leukocyte Esterase,Urine Negative (Negative); PH,Urine 6.5 (5.0-8.5); Protein,Urine Negative (Negative); Specific Gravity, Urine 1.010 (1.005-1.030); Urobilinogen,Urine 4.0 EU/dl (0.2)
[2025-03-29 14:41] LABS: Squamous Epithelial Cell,Urine Occasional #/hpf (0-5); WBC,Urine Occasional #/hpf (0-3)
== END 2025-03-29 14:30 | disposition home or self-care (01) ==
LOC: INF 09:02
PROVIDERS: PCP Family Medicine; Visit Provider Internal Medicine Medical Oncology
DX: Z51.11 Encounter for antineoplastic chemotherapy (principal); C22.0 Liver cell carcinoma; Z79.899 Other long term (current) drug therapy
CPT/HCPCS: 80053; 81001; 82024; 82533; 83735; 84443; 85025; 96366; 96367; 96413; J3480; J7050; J9022

== ENCOUNTER 2025-04-02 10:04 | Outpatient (CLI) | payer MEDICARE, MEDICAID, SELFPAY ==
--- OUTSIDE RECORDS SUMMARY | 2016-03-04 08:15 | XMS_ITS | Encounter Summary ---
Author Organization [place] [address] Care Team Providers Care Scoop Machine Operator Name Role Phone Jan Sin MD Unavailable [phone] Carlton James DO Primary Care Provide r Macario Pryor MD Unavailable Unavailabl e Encounter Details Date Type Department Care Team (Latest Contact Info) Description 03/04/2016 8:15 AM EDT Hospital Encounter [facility] 238 [facility] [place] [address] Poppy Quintero MD [address] [place], [place] [phone] Left without seen Social History Tobacco Use Types Packs/Day Years Used Date Smoking Tobacco: Every Day Cigarettes 2 40.6 Started: 08/30/1973; Last attempted to quit: 08/29/2005 Smokeless Tobacco: Never Comments:only smokes once in awhile Alcohol Use Standard Drinks/Week Comments No 0 (1 standard drink = 0.6 oz pur e alcohol) none in 7 yrs PHQ-2 Answer Date Recorded PHQ-2 Total Score 3 06/20/2024 Sexually Active Control Partners Comments Not Currently [...] Score Answer Date of Assessment Author 3 06/20/2024 1:00 PM EDT Manisha Ortiz RMA * PHQ-9 Total Score Answer Date of Assessment Author 10 06/20/2024 1:00 PM EDT Manisha Ortiz RMA * Question Answer [...] No Risk, Screening Complete 11/17/2021 11:41 AM IRAIST Sarah Mathew RN * Question Answer Date of Assessment Author Little interest or pleasure in doing things 0 06/20/2024 1:00 PM EDT Elizabeth Ortiz RMA Feeling down, depressed, or hopeless 3 06/20/2024 1:00 PM EDT Elizabeth Ortiz RMA Trouble falling or staying asleep, or sleeping too much 0 06/20/2024 1:00 PM EDT Elizabeth Ortiz RMA Feeling tired or having dennis le energy 3 06/20/2024 1:00 PM EDT Elizabeth Ortiz RMA Poor appetite or overeating 1 06/20/2024 1: 00 PM EDT Elizabeth Ortiz RMA Feeling bad about yourself - or that you are a failure or have let yourself or your family down 0 06/20/2024 1:00 PM EDT Elizabeth Ortiz RMA Trouble concentrating on things, such as reading the newspaper or watching television 3 06/20/2024 1:00 PM EDT Elizabeth Ortiz RMA Moving or speaking so slowly that other people could have noticed. Or the opposite - being so fidgety or restless that you have been moving around a lot more than usual 0 06/20/2024 1:00 PM Elizabeth Roberts RMA Thoughts that you would be better off , or of hurting yourself in some way 0 06/20/2024 1:00 PM EDT Elizabeth Ortiz RMA * Suicide Severity Rating Answer Date of Assessment Author No Risk 01/18/2024 3:32 PM EDT Jer Sena RN * [place] Suicide Severity Rating Scale (Q shift for moderate and high) Question Answer Date of Assessment Author 1. In the past month, have you wished you were or wished you could go to sleep and not wake up? 0 01/18/2024 3:32 PM EDT Jer Sena, NIURKA 2. In the past month, have you actually had any thoughts of killing yourself? (If no, skip to question 6) 0 01/18/2024 3:32 PM EDT Jer Sena, NIURKA 6. Have you ever done anything, started [...] Author Blood Pressure < 140/90 Blood Pressure 102/56(2024 9:46 AM EDT) No Jun Cruz MD Eat [...] documented as of this encounter Care Teams Scoop Machine Operator Relationship Specialty Start Date End Date Carlton James DO [address] [address] PCP - General Family Medicine 05/01/15 11/26/16 Macario Pryor MD [address] [place] [address] [place] [address] PCP - Hematology/Oncology Internal Medicine-Medical Oncology 11/12/15 Jan Sin MD [address] [place] [address] [place] [address] Internal Medicine-Cardiovascul ar Disease 08/28/14 documented as of this encounter
--- OUTSIDE RECORDS SUMMARY | 2025-02-09 11:02 | XMS_ITS | Encounter Summary ---
Author Organization [facility] Address [address] [place] [address] Care Team Providers Care Court Recording Monitor Name Role Phone Unavailable Primary Care Provider Unavailabl e Reason for Referral * Imaging (Routine) - Closed Specialty Diagnoses / Procedures Referred By Vicente alaniz Referred To Contact Radiology Diagnoses Abnormality of alphafetoprotein Other specified abnormal findings of blood chemistry Unspecified cirrhosis of liver (CMS/HCC) Procedures CT Abdomen w and wo IV Contrast Isabella Saucedo APRN [address] [place] [address] Phone: tel: fax: Referral ID Status Reason Start Date Expiration Date Visits Re quested Visits Authorized [id number] Closed 01/18/2025 07/20/2026 1 1 Reason for Visit * Imaging (Routine) - Closed Specialty Diagnoses / Procedures Referred By Vicente alaniz Referred To Contact Radiology Diagnoses Abnormality of alphafetoprotein Other specified abnormal findings of blood chemistry Unspecified cirrhosis of liver (CMS/HCC) Procedures CT Abdomen w and wo IV Contrast Isabella Saucedo APRN [address] [place] [address] Phone: tel: fax: Referral ID Status Reason Start Date Expiration Date Visits Re quested Visits Authorized [id number] Closed 01/18/2025 07/20/2026 1 1 Encounter Details Date Type Department Care Team (Latest Contact Info) Description 02/09/2025 11:02 AM EDT - 02/09/2025 11:59 PM EDT Hospital Encounter [facility] [address] [place] [address] Abnormality of alphafetoprotein; Other specified abnormal findings of blood chemistry; Unspecified cirrhosis of liver (CMS/HCC) Discharge Disposition: Home or Self Care Social History Tobacco Use Types Packs/Day Years Used Date Smoking Tobacco: Never Assessed Sex and Gender Information Value Date Recorded Sex Assigned at Not on file Legal Sex Male 7:50 PM EDT Gender Identity Not on file Sexual Orientation Not on file documented as of this encounter Medications at Time of Discharge albuterol 108 (90 Base) MCG/ACT inhaler Inhale 2 puffs 4 times a day as needed for shortness of breath or wheezing. 09/28/2024 clopidogrel (Plavix) 75 MG tablet Take 1 tablet by mouth 1 time each day. 11/15/2024 clotrimazole (Lotrimin) 1 % cream Apply 1 Application topically as needed. 12/27/2024 escitalopram (Lexapro) 20 MG tablet Take 1 tablet by mouth 1 time each day. 09/07/2024 furosemide (Lasix) 20 MG tablet Take 1 tablet by mouth daily. 02/05/2025 naloxone (Narcan) 4 mg/0.1 mL nasal spray 1. Give 1 spray in nostril for no/slow breathing or cannot wake after opioid use 2. Call 911 3. Repeat in other nostril if symptoms continue 12/21/2024 atorvastatin (Lipitor) 20 MG tablet Take 1 tablet by mouth nightly. 01/30/2025 5 documented as of this encounter Miscellaneous Notes * Megan Alejandra - 02/09/2025 11:04 AM EDT Images from the original note were not included. 1639 Caring for Yourself after Contrast Imaging If you had ORAL contrast: ? You can go back to your normal diet and activities as tolerated. ? Drink plenty of fluids, unless told otherwise. If you had IV contrast: ? You can go back to your normal diet and activities as tolerated. ? Drink plenty of fluids, unless told otherwise. ? Leave a bandage on the site for 30 minutes (where the IV was inserted or blood was drawn). If you had Intravesical (bladder) contrast: ? Return to normal diet and activity. What you need to know about delayed reaction to IV contrast What is IV Contrast? ? Contrast is a dye that is put into your body through an IV. ? It is used for imaging scans such as CT scans and MRIs. ? The contrast makes blood vessels, organs and other parts of your body show up better on the scan. What do I need to do after IV contrast? ? Drink lots of fluids. This will help flush the contrast out of your system. ? Drink 2-3 extra glasses or bottles of water within 4 hours of your scan. What is a contrast reaction? ? A contrast reaction is a bad side effect from the contrast dye. ? It is rare but it does happen. ? They can be mild - such as sneezing, itching, or hives. ? They can be severe - such as trouble breathing, throat swelling, and irregular heart beat. When do these reactions happen? ? They often happen right after the contrast is injected. ? Some happen hours after going home. Go to the nearest Emergency Department right away if you have any of these symptoms after you leavethe clinic or hospital. ? Sneezing ? Itching in your mouth, throat, eyes, ears, or skin ? Rash or hives ? Throwing up or stomach sickness ? High heart rate or ?racing? of your heart ? Feeling dizzy or woozy ? Feeling short of breath or like you can?t take a deep breath ? Feeling very anxious for no other reason It is very important that these reactions be treated. Tell the doctor or nurse that you are having a reaction to IV contrast dye. Do not ignore any sign of a reaction! All reactions must be assessed by a doctor. Call 911 if you are alone and your reaction is more than mild sneezing or itching. If you have a mild reaction, call to speak with a Radiologist, explain that you havehad a contrast reaction, as this needs to be added to your medical record. documented in this encounter Plan of Treatment Not on file documented as of this encounter Procedures Procedure Name Priority Date/Time Associated Diagnosis Comments CT ABDOMEN W AND WO IV CONTRAST Routine 02/09/2025 11:37 AM EDT Abnormality of alphafetoprotein Other specified abnormal findings of blood chemistry Unspecified cirrhosis of liver (CMS/HCC) documented in this encounter Results * CT Abdomen w and wo IV Contrast (02/09/2025 11:37 AM EDT) Anatomical Region Laterality Modality Abdomen Computed Tomogra phy Impressions 02/09/2025 3:29 PM EDT 1. Focal Hepatic Observations: LI-RADS-TIV (Definitely Tumor in Vein). Please consider tumor board discussion. 2. Additional findings as above CRITICAL RESULT: No. COMMUNICATION: Per this written report. LI-RADS M = Probably or definitely malignant but not HCC specific LI-RADS TI-V = Definitely tumor in vein LI-RADS 5 = Definitely hepatocellular carcinoma (concordant with OPTN*) LI-RADS 4 = Probably hepatocellular carcinoma LI-RADS 3 = Intermediate probability for hepatocellular carcinoma LI-RADS 2 = Probably benign LI-RADS 1 = Definitely benign LI-RADS NC = Not categorized secondary to image degradation or omission LI-RADS TR Nonviable - Treated, probably or definitely not viable LI-RADS TR Equivocal - Treated, equivocally viable LI-RADS TR Nonprogressing - Treated with radiation, masslike enhancement, which is stable or decreased in size over time after LRT LI-RADS TR Viable - Treated, probably or definitely viable LI-RADS TR Nonevaluable - Cannot be categorized due to image degradation or omission NOTE: LI-RADS categories should be interpreted in the context of other available data, such as biomarkers and the patient's prior probability of developing or having hepatocellular carcinoma. The LI-RADS classification of liver lesions has been adopted to standardize CT and MRI scan reporting in patients at risk for hepatocellular carcinoma. CT/MRI LI- RADS and US LI-RADS are consistent with and integrated into the [place] [employer] the Study of Liver Diseases (AASLD) 2018 hepatocellular carcinoma (HCC) clinical practice guidance. LI-RADS criteria and documentation are available online at www.acr.org/Quality-Safety/Resources/LIRADS. This report utilizes LI-RADS version 2018 with updated Treatment Response Assessment (TRA) v2024. *OPTN and LI-RADS criteria for definite HCC are identical except for: 10-19 mm observations with nonrim APHE + nonperipheral washout but without enhancing capsule or threshold growth. Implication: Some LR-5 observations do not count as OPTN 5. Drafted by Puja Bernstein MD on 02/09/2025 3:07 PM Final report signed by Puja Bernstein MD on 02/09/2025 3:29 PM Narrative 02/09/2025 3:29 PM EDT CLINICAL INDICATION: Risk for hepatocellular carcinoma elevated AFP/cirrhosis liver mass protocol TECHNIQUE: Multiple axial CT images were obtained of liver and abdomen following administration of IV contrast, Omnipaque 350, 100 mL. Images were obtained during arterial, portal venous, and delayed phases. Reformatted images in the coronal and sagittal planes were generated from the axial data set to facilitate diagnostic accuracy. Precontrast axial CT images of the abdomen were also obtained. TOTAL DLP (Dose-Length Product): 728.36 mGy.cm. Please note: The reported value represents the total of one or more individual components during the CT acquisition on this date and at this time, and as such, the same value may appear in more than one CT report depending on the interpreting/reporting physicians. Examination meets LI-RADS technical recommendations. COMPARISON: None. FINDINGS: Liver, Gallbladder, Biliary Tract: Liver demonstrates cirrhotic morphology. Large artery enhancing mass in segment 5 with areas of washout on delayed images and involvement of anterior branch of the right portal vein. Cholelithiasis. Nondilated biliary tree. Hepatic Vasculature: Hepatic arterial anatomy is standard. The main and left portal veins are patent. Portal vein branch to the right posterior hepatic lobe is patent. Collaterals are noted. Focal Hepatic Observations: Observation #1: Location: Segment V Size: 6.1 x 4.6 x 6.5 cm (series 5, image 33 and series 11, image 62) Hepatic Arterial Phase Hyperenhancement: Yes Threshold Growth: N/A - no comparable prior PV/Equilibrium Washout: Yes Capsule Appearance: Present Ancillary Features: *Favoring benignity: None *Favoring malignancy: Apparent enhancing filling defect at the bifurcation of the right portal vein without definite visualization of the anterior branch Overall Assessment: LI-RADS-TIV (Definitely Tumor in Vein) Extrahepatic Findings: Spleen: The spleen is enlarged in the AP dimension. Other Solid Abdominal Organs: No suspicious pancreatic findings. No suspicious right adrenal findings. 1.7 cm left adrenal needle was calcifications. No suspicious renal mass lesions. Bilateral renal cysts. Bilateral subcentimeter renal calculi. No hydronephrosis. GI Tract/Mesentery/Peritoneum: The large and small bowel appear normal in caliber. No evidence of inflammatory change. No suspicious peritoneal/mesenteric findings. Lymph Nodes: Prominent lymph nodes are noted at the vitaliy hepatis, likely reactive. Free Fluid: No ascites. Musculoskeletal: No aggressive or suspicious findings. Other: Left basilar atelectasis/scarring. Procedure Note Puja Bernstein MD - 02/09/2025 CLINICAL INDICATION: Risk for hepatocellular carcinoma elevated AFP/cirrhosis liver massprotocol TECHNIQUE: Multiple axial CT images were obtained of liver and abdomen followingadministration of IV contrast, Omnipaque 350, 100 mL. Images were obtainedduring arterial, portal venous, and delayed phases. Reformatted images inthe coronal and sagittal planes were generated from the axial data set tofacilitate diagnostic accuracy. Precontrast axial CT images of the abdomenwere also obtained. TOTAL DLP (Dose-Length Product): 728.36 mGy.cm. Please note: The reportedvalue represents the total of one or more individual components during theCT acquisition on this date and at this time, and as such, the same valuemay appear in more than one CT report depending on theinterpreting/reporting physicians. Examination meets LI-RADS technical recommendations. COMPARISON: None. FINDINGS: Liver, Gallbladder, Biliary Tract: Liver demonstrates cirrhoticmorphology. Large artery enhancing mass in segment 5 with areas of washouton delayed images and involvement of anterior branch of the right portalvein. Cholelithiasis. Nondilated biliary tree. Hepatic Vasculature: Hepatic arterial anatomy is standard. The main andleft portal veins are patent. Portal vein branch to the right posteriorhepatic lobe is patent. Collaterals are noted. Focal Hepatic Observations: Observation #1: Location: Segment V Size: 6.1 x 4.6 x 6.5 cm (series 5, image 33 and series 11, image 62) Hepatic Arterial Phase Hyperenhancement: Yes Threshold Growth: N/A - no comparable prior PV/Equilibrium Washout: Yes Capsule Appearance: Present Ancillary Features: *Favoring benignity: None *Favoring malignancy: Apparent enhancing filling defect at thebifurcation of the right portal vein without definite visualization of theanterior branch Overall Assessment: LI-RADS-TIV (Definitely Tumor in Vein) Extrahepatic Findings: Spleen: The spleen is enlarged in the AP dimension. Other Solid Abdominal Organs: No suspicious pancreatic findings. Nosuspicious right adrenal findings. 1.7 cm left adrenal needle wascalcifications. No suspicious renal mass lesions. Bilateral renal cysts.Bilateral subcentimeter renal calculi. No hydronephrosis. GI Tract/Mesentery/Peritoneum: The large and small bowel appear normal incaliber. No evidence of inflammatory change. No suspiciousperitoneal/mesenteric findings. Lymph Nodes: Prominent lymph nodes are noted at the vitaliy hepatis, likelyreactive. Free Fluid: No ascites. Musculoskeletal: No aggressive or suspicious findings. Other: Left basilar atelectasis/scarring. IMPRESSION: 1.Focal Hepatic Observations: LI-RADS-TIV (Definitely Tumor in Vein).Please consider tumor board discussion. 2.Additional findings as above CRITICAL RESULT: No. COMMUNICATION: Per this written report. LI-RADS M = Probably or definitely malignant but not HCC specific LI-RADS TI-V = Definitely tumor in vein LI-RADS 5 = Definitely hepatocellular carcinoma (concordant with OPTN*) LI-RADS 4 = Probably hepatocellular carcinoma LI-RADS 3 = Intermediate probability for hepatocellular carcinoma LI-RADS 2 = Probably benign LI-RADS 1 = Definitely benign LI-RADS NC = Not categorized secondary to image degradation or omission LI-RADS TR Nonviable - Treated, probably or definitely not viable LI-RADS TR Equivocal - Treated, equivocally viable LI-RADS TR Nonprogressing - Treated with radiation, masslike enhancement,which is stable or decreased in size over time after LRT LI-RADS TR Viable - Treated, probably or definitely viable LI-RADS TR Nonevaluable - Cannot be categorized due to image degradationor omission NOTE: LI-RADS categories should be interpreted in the context of otheravailable data, such as biomarkers and the patient's prior probability ofdeveloping or having hepatocellular carcinoma. The LI-RADS classificationof liver lesions has been adopted to standardize CT and MRI scan reportingin patients at risk for hepatocellular carcinoma. CT/MRI LI-RADS and USLI-RADS are consistent with and integrated into the [place] Associationfor the Study of Liver Diseases (AASLD) 2018 hepatocellular carcinoma(HCC) clinical practice guidance. LI-RADS criteria and documentation areavailable online at www.acr.org/Quality-Safety/Resources/LIRADS. Thisreport utilizes LI-RADS version 2018 with updated Treatment ResponseAssessment (TRA) v2024. *OPTN and LI-RADS criteria for definite HCC are identical except for:10-19 mm observations with nonrim APHE + nonperipheral washout butwithout enhancing capsule or threshold growth. Implication: Some LR-5observations do not count as OPTN 5. Drafted by Puja Bernstein MD on 02/09/2025 3:07 PM Final report signed by Puja Bernstein MD on 02/09/2025 3:29 PM us Isabella Saucedo PUBLIC ADDRESS TECHNICIAN IMG CT PROCEDURES Final Re sult documented in this encounter Visit Diagnoses Diagnosis Abnormality of alphafetoprotein Other specified abnormal findings of blood chemistry Unspecified cirrhosis of liver (CMS/HCC) documented in this encounter Administered Medications Inactive Administered Medications - up to 3 most recent administrations Medication Order MAR Action Action Date Dose Rate Site iohexol (OMNIPaque) 350 MG/ML injection 125 mL 125 mL, Intravenous, Once in imaging, 1 dose, Starting on Wed02/09/25 at 1104, Until Wed02/09/25 at 1124, Routine, Imaging Protocol Orders Given 02/09/2025 11:24 AM EDT 125 mL documented in this encounter
--- OUTSIDE RECORDS SUMMARY | 2025-03-14 10:00 | XMS_ITS | Encounter Summary ---
Author Organization Healthcare Address [address] [place] [address] Care Team Providers Care Product Safety Technical Assistant Name Role Phone Isabella Saucedo FIELD RING ASSEMBLER Unavailable [phone] Jeannie Mcmillan RN Unavailable [phone] Ebony Shoemaker Unavailable [phone] Reason for Visit * Reason Comments Liver Lesion * Consultation (Routine) - Closed Specialty Diagnoses / Procedures Referred By Vicente t Referred To Contact Transplant Diagnoses Elevated AFP Liver lesion Hepatic cirrhosis, unspecified hepatic cirrhosis type, unspecified whether ascites present (CMS/HCC) Isabella Sauecdo, FIELD RING ASSEMBLER [address] [place] [address] Phone: tel: fax: [facility] [address] [address] Phone: tel: fax: Referral ID Status Reason Start Date Expiration Date V isits Requested Visits Authorized [id number] Closed Specialty Services Required 03/06/2025 09/05/2026 1 1 Encounter Details Date Type Department Care Team (Late st Contact Info) Description 03/14/2025 10:00 AM EDT Office Visit [facility] [address] [address] Peter Do MD [address] [address] HCC (hepatocellular carcinoma) (Primary Dx) [...] a 64 y.o.-year-old male w/ PMHx cirrhosis, MS, CAD s/p CABG x4 with re-stenosis withrevision, [...] Tobacco Use: High Risk (12/27/2024) Received from [facility] Patient History Smoking Tobacco Use: [...] a 64 y.o.-year-old male w/ PMHx cirrhosis, MS, CAD s/p CABG x4 with re-stenosis withrevision, [...] documented as of this encounter Care Teams Product Safety Technical Assistant Relationship Specialty Start Date End Date Isabella Saucedo APRN [address] [place] [id number] Referring Physician 02/26/25 Jeannie Mcmillan, RN [facility] [address] [place] [address] Registered Nurse Transplant Surgery 03/08/25 [place] [address] Registered Nurse Transplant Surgery 03/08/25 documented as of this encounter
--- OUTSIDE RECORDS SUMMARY | 2025-03-14 11:20 | XMS_ITS | Encounter Summary ---
Author Organization Healthcare Address [address] [place] [address] Care Team Providers Care Clinical Safety Specialist Name Role Phone LewisIsabella Phong REELING OPERATOR Unavailable [phone] Jeannie Mcmillan RN Unavailable [phone] Ebony Shoemaker Unavailable [phone] Reason for Referral * Imaging (Routine) - Closed Specialty Diagnoses / Procedures [facility] To Contact Radiology Diagnoses Elevated AFP Liver lesion Hepatic cirrhosis, unspecified hepatic cirrhosis type, unspecified whether ascites present (CMS/HCC) Procedures CT CHEST WO IV CONTRAST Peter Do MD [address] [address] Phone: tel: fax: Referral ID Status Reason Start Date Expiration Date Visits Re quested Visits Authorized [id number] Closed 03/14/2025 09/13/2026 1 1 Reason for Visit * Imaging (Routine) - Closed Specialty Diagnoses / Procedures Referred By Contac t Referred To Contact Radiology Diagnoses Elevated AFP Liver lesion Hepatic cirrhosis, unspecified hepatic cirrhosis type, unspecified whether ascites present (CMS/HCC) Procedures CT CHEST WO IV CONTRAST Peter Do MD [address] [address] Phone: tel: fax: Referral ID Status Reason Start Date Expiration Date Visits Re quested Visits Authorized [id number] Closed 03/14/2025 09/13/2026 1 1 Encounter Details Date Type Department Care Team (Latest Contact Info) Description 03/14/2025 11:20 AM EDT - 03/14/2025 11:59 PM EDT Hospital Encounter [facility] [address] [place] [address] Elevated AFP; Liver lesion; Hepatic [...] documented as of this encounter Care Teams Clinical Safety Specialist Relationship Specialty Start Date End Date Isabella Saucedo APRN [address] [place] [address] Referring Physician 02/26/25 Jeannie Mcmillan, RN [facility] [address] [place] [address] Registered Nurse Transplant Surgery 03/08/25 [place] [address] Registered Nurse Transplant Surgery 03/08/25 documented as of this encounter
--- OUTSIDE RECORDS SUMMARY | 2025-03-20 16:39 | XMS_ITS | Encounter Summary ---
Author Organization Healthcare Address [address] [place] [address] Care Team Providers Care Printing Plate Setter Name Role Phone Isabella Saucedo HOISTMAN Unavailable [phone] Jeannie Mcmillan RN Unavailable [phone] Ebony Shoemaker Unavailable [phone] Pcp, No Primary Care Provider Unavailabl e Reason for Visit * Reason Comments Abdominal Pain * Auth/Cert (Routine) Specialty Diagnoses / Procedures Referred By Vicente t Referred To Contact Diagnoses Hepatocellular carcinoma hepatocellular carcinoma Navi Tripathi MD [address] [place] [address] Phone: tel: fax: [facility] [address] [place] [address] Phone: tel: Referral ID Status Reason Start Date Expiration Date Visits Re quested Visits Authorized [id number] 1 1 Encounter Details Date Type Department Care Team (Latest Contact Info) Description 03/20/2025 4:39 PM EDT - 03/21/2025 6:51 PM EDT Hospital Encounter [facility] [address] [place] [address] Clotilde Saleh MD [address] [place] [address] Navi Tripathi MD [address] [place] [address] Lolly Flaherty MD [address] [place] [phone] Epigastric pain (Primary Dx); Hepatocellular carcinoma; Alcoholic cirrhosis of liver without ascites (CMS/HCC) Discharge Disposition: Home or Self Care Social History Tobacco Use Types Packs/Day Years Used Date Smoking Tobacco: Every Day Cigarettes 0.5 7.6 Started: 2017 Smokeless Tobacco: Never Tobacco Cessation:Ready to Q uit: No; Counseling Given: No PHQ-2 Answer Date Recorded Patient Health Questionnaire-2 Score 0 03/14/2025 Sex and Gender Information Value Date Recorded Sex Assigned at Not on file Legal Sex Male 7:50 PM EDT Gender Identity Not on file Sexual Orientation Not on file documented as of this encounter Last Filed Vital Signs Vital Sign Reading Time Taken Comments Blood Pressure 160/72 03/21/2025 4:56 PM EDT Pulse 107 03/21/2025 4:56 PM EDT Temperature 37.7 C (99.9 F) 03/21/2025 4:56 PM EDT Respiratory Rate 17 03/21/2025 8:37 AM EDT Oxygen Saturation 91% 03/21/2025 4:56 PM EDT Inhaled Oxygen Concentration - - Weight 62.3 kg (137 lb 5.6 oz) 03/20/2025 10:58 PM EDT Height 172.7 cm (5' 8 ) 03/21/2025 1:56 AM EDT Body Mass Index 20.88 03/20/2025 10:58 PM EDT documented in this encounter Functional Status * Calculated C-SSRS Risk Score (Lifetime/Recent) Answer Date of Assessment Author No Risk Indicated 03/21/2025 8:00 AM EDT Sandy Moseley RN * Question Answer Date of Assessment Author 1. Wish to be (Past 1 Month) No 025 8:00 AM EDT aSndy Moseley RN 2. Non-Specific Active Suici heriberto Thoughts (Past 1 Month) No 03/21/2025 8:00 AM EDT Dali Moseley RN 6. Suicidal Behavior (Lifetime) No 8:00 AM EDT Sandy Moseley RN documented as of this encounter Medications at Time of Discharge acetaminophen (Tylenol) 500 MG tablet Take 2 tablets by mouth 2 times a day as needed for pain. albuterol 108 (90 Base) MCG/ACT inhaler Inhale 2 puffs 4 times a day as needed for shortness of breath or wheezing. 09/28/2024 aspirin 81 MG EC tablet Take 1 tablet by mouth 1 time each day. bisoprolol (Zebeta) 5 MG tablet Take 1 tablet by mouth daily. calcium carbonate (Tums) 500 MG chewable tablet Chew 1 tablet every 4 hours as needed for indigestion or heartburn. 30 tablet 03/21/2025 clopidogrel (Plavix) 75 MG tablet Take 1 [...] Take 1 tablet by mouth daily. 02/05/2025 HYDROmorphone (Dilaudid) 2 MG tablet Take 1.5 tablets by mouth every 4 hours as needed for severe pain. 90 tablet 03/21/2025 Jardiance 10 MG Take 1 tablet by mouth daily. naloxone (Narcan) 4 mg/0.1 mL nasal spray 1. Give 1 spray in nostril for no/slow breathing or cannot wake after opioid use 2. Call 911 3. Repeat in other nostril if symptoms continue 12/21/2024 nitroglycerin (Nitrostat) 0.[address] 1 tablet under the tongue every 5 minutes as needed for chest pain. ondansetron ODT (Zofran-ODT) 4 MG disintegrating tablet Dissolve 1 tablet on the tongue every 6 hours as needed for nausea or vomiting. 20 tablet 03/21/2025 polyethylene glycol (Miralax) 17 g packet Take 17 g by mouth daily. 30 each 5 03/22/2025 senna (Senokot) 8.6 MG tablet Take 2 tablets by mouth nightly. 60 tablet 5 03/21/2025 Santana Ellipta 100-62.5-25 MCG/ACT aerosol powder INHALE 1 PUFF INTO THE LUNGS DAILY AT 0900. documented as of this encounter Miscellaneous Notes * Addendum Note - Vivian Longo RN - 03/21/2025 6:51 PM EDTEncounter addended by: Vivian Longo, RN on: 03/29/2025 9:23 AM Actions taken: Utilization Review saved, Utilization Review data saved * Discharge Summary - Lolly Flaherty MD - 03/21/2025 5:56 PM EDT Hospitalization Admit Date/Time: 03/20/2025 4:39 PM Admitting Attending: Navi Tripathi Discharge Date: Discharge Attending Physician: Lolly Flaherty MD PCP name and Address: Pcp, Tiki [address] [facility] / [place] [phone] Referring provider name and address: Monalisa Elizondo, HOISTMAN [address] [place] [address] Chief Concern, Brief History of Present Illness, and Hospital Course Rl Steward is a 64 yo M with decompensated cirrhosis complicated by recently diagnosed HCC, ischemic heart disease (HFmrEF, severe CAD, CABG x 4), and other co-morbidities who is presenting with worsening abdominal pain. Pain medications were adjusted and pain improved. LFTS were elevated and as such his entresto and statin were held for now and should be reconsidered later Surgeries and Procedures Medication List PAUSE taking these medications Entresto 24-26 MG tablet Wait to take this until your doctor or other care provider tells you to start again. Monitoring liver function before resumption Generic drug: sacubitril-valsartan Take 1 tablet by mouth 2 times a day. .. acetaminophen 500 MG tablet Commonly known as: Tylenol Take 2 tablets by mouth 2 times a day as needed for pain. albuterol 108 (90 Base) MCG/ACT inhaler Inhale 2 puffs 4 times a day as needed for shortness of breath or wheezing. aspirin 81 MG EC tablet Take 1 tablet by mouth 1 time each day. bisoprolol 5 MG tablet Commonly known as: Zebeta Take 1 tablet by mouth daily. calcium carbonate 500 MG chewable tablet Commonly known as: Tums Chew 1 tablet every 4 hours as needed for indigestion or heartburn. clopidogrel 75 MG tablet Commonly known as: Plavix Take 1 tablet by mouth 1 time each day. clotrimazole 1 % cream Commonly known as: Lotrimin Apply 1 Application topically as needed. cyclobenzaprine 5 MG tablet Commonly known as: Flexeril Take 1 tablet by mouth every 8 hours as needed. escitalopram 20 MG tablet Commonly known as: Lexapro Take 1 tablet by mouth 1 time each day. furosemide 20 MG tablet Commonly known as: Lasix Take 1 tablet by mouth daily. HYDROmorphone 2 MG tablet Commonly known as: Dilaudid Take 1.5 tablets by mouth every 4 hours as needed for severe pain. Jardiance 10 MG Generic drug: empagliflozin Take 1 tablet by mouth daily. naloxone 4 mg/0.1 mL nasal spray Commonly known as: Narcan 1. Give 1 spray in nostril for no/slow breathing or cannot wake after opioid use 2. Call 911 3. Repeat in other nostril if symptoms continue nitroglycerin 0.4 MG SL tablet Commonly known as: Nitrostat Place 1 tablet under the tongue every 5 minutes as needed for chest pain. ondansetron ODT 4 MG disintegrating tablet Commonly known as: Zofran-ODT Dissolve 1 tablet on the tongue every 6 hours as needed for nausea or vomiting. polyethylene glycol 17 g packet Commonly known as: Miralax Take 17 g by mouth daily. Start taking on: March 22, 2025 senna 8.6 MG tablet Commonly known as: Senokot Take 2 tablets by mouth nightly. Trelegy Ellipta 100-62.5-25 MCG/ACT aerosol powder Generic drug: Pdhnrokkwcj-Ipsgbvljm-Psygeb INHALE 1 PUFF INTO THE LUNGS DAILY AT 0900. Where to Get Your Medications These medications were sent to [facility] - [place], [place] - [address] [facility] [id number] calcium carbonate 500 MG chewable tablet HYDROmorphone 2 MG tablet ondansetron ODT 4 MG disintegrating tablet polyethylene glycol 17 g packet senna 8.6 MG tablet Discharge Diagnosis Medical Problems Active and Resolved Hospital Problems Hospital * (Principal) Hepatocellular carcinoma Post Discharge Instructions Outpatient Follow-Up No future appointments. Test Results Pending At Discharge Pertinent Physical Exam At Time of Discharge Physical Exam Constitutional: Appearance: Normal appearance. Pulmonary: Effort: Pulmonary effort is normal. Breath sounds: Normal breath sounds. Abdominal: General: There is no distension. Palpations: Abdomen is soft. Tenderness: There is no abdominal tenderness. There is no guarding. Neurological: Mental Status: He is alert and oriented to person, place, and time. Gait: Gait normal. Discharge Disposition/Condition Disposition: Home Condition: Stable (s/sx potential problems absent or manageable) I spent >30 minutes of patient care and instruction time in preparation for this discharge. * Discharge Instr - Appointments - Radha Garber RN - 03/21/2025 1:05 PM EDT Friday April 04, 2025 at 1:00PM Dr. Rodney Gonzáles [facility] (Oncology) [address] [place] [address] * Care Plan - Sandy Moseley RN - 03/21/2025 10:40 AM EDT Problem: Adult Inpatient Plan of Care Goal: Plan of Care Review Outcome: Ongoing, Progressing Flowsheets (Taken 03/21/2025 1032) Plan of Care Reviewed With: patient family Goal: Patient-Specific Goal (Individualized) Outcome: Ongoing, Progressing Flowsheets (Taken 03/21/2025 0800) Patient/Family-Specific Goals (Include Timeframe): patient safe by the end of the shift Individualized Care Needs: pain well cotrolled throught the shift Anxieties, Fears or Concerns: pain Goal: Absence of Hospital-Acquired Illness or Injury Outcome: Ongoing, Progressing Intervention: Identify and Manage Fall Risk Flowsheets (Taken 03/21/2025 1032) Safety Promotion/Fall Prevention: activity supervised room organization consistent safety round/check completed Intervention: Prevent Skin Injury Flowsheets (Taken 03/21/20251031) Body Position: weight shifting Skin Protection: incontinence pads utilized Intervention: Prevent and Manage VTE (Venous Thromboembolism) Risk Flowsheets (Taken 03/21/20251031) VTE Prevention/Management: medication Intervention: Prevent Infection Flowsheets (Taken 03/21/20251031) Infection Prevention: environmental surveillance performed hand hygiene promoted personal protective equipment utilized Goal: Optimal Comfort and Wellbeing Outcome: Ongoing, Progressing Intervention: Monitor Pain and Promote Comfort Flowsheets (Taken 03/21/20251031) Pain Management Interventions: medication (see MAR) relaxation techniques promoted Intervention: Provide Person-Centered Care Flowsheets (Taken 03/21/20251031) Trust Relationship/Rapport: care explained choices provided emotional support provided empathic listening provided questions answered questions encouraged reassurance provided thoughts/feelings acknowledged Goal: Readiness for Transition of Care Outcome: Ongoing, Progressing Intervention: Mutually Develop Transition Plan Flowsheets (Taken 03/21/20251031) Discharge Facility/Level of Care Needs: 1-Home or Self Care Equipment Needed After Discharge: none Equipment Currently Used at Home: none Current Outpatient/Agency/Support Group: support group(s) Anticipated Changes Related to Illness: none Transportation Anticipated: family or friend will provide Outpatient/Agency/Support Group Needs: Referred to [facility] Transportation Concerns: none Current Discharge Risk: terminally ill Concerns to be Addressed: discharge planning Readmission Within the Last 30 Days: other (see comments) Patient/Family Anticipated Services at Transition: classification case manager Patient/Family Anticipates Transition to: home with family Problem: Fall Injury Risk Goal: Absence of Fall and Fall-Related Injury Outcome: Ongoing, Progressing Intervention: Identify and Manage Contributors Flowsheets (Taken 03/21/20251031) Medication Review/Management: medications reviewed Self-Care Promotion: independence encouraged Intervention: Promote Injury-Free Environment Flowsheets (Taken 03/21/20251031) Safety Promotion/Fall Prevention: activity supervised room organization consistent safety round/check completed Problem: Pain Acute Goal: Optimal Pain Control and Function Outcome: Ongoing, Progressing Intervention: Optimize Psychosocial Wellbeing Flowsheets (Taken 03/21/20251031) Supportive Measures: self-care encouraged Diversional Activities: television Intervention: Develop Pain Management Plan Flowsheets (Taken 03/21/2025 1032) Pain Management Interventions: medication (see MAR) relaxation techniques promoted Intervention: Prevent or Manage Pain Flowsheets (Taken 03/21/2025 1032) Sensory Stimulation Regulation: television on Bowel Elimination Promotion: adequate fluid intake promoted Sleep/Rest Enhancement: awakenings minimized Medication Review/Management: medications reviewed * Consults - Alonzo Santos - 03/21/2025 10:06 AM EDT Pastoral Care Note: Patient was with his and grandson on the bed side when gynecology teacher visited and they were appreciative of gynecology teacher's visit. Prayer and nicole is important to them. Pantry Attendant supported them emotionallyand spiritually. Referral From: Pantry Attendant Initiated Pastoral Care Provided For: Patient, Spouse, Extended family Patient Profile: Consult Reasons: Emotional support, Initial visit, Spiritual support, Prayer Spiritual Assessment: Support Systems/ Spiritual Resources: Nicole, Family, Friends, Meaningful spiritual experience, Prayer, Trust, Gratitude, Sense of Peace, Self expression/ creativity, Spiritual community Spiritual Needs: Emotional support, Prayer, Spiritual support Interventions: Interventions Provided: Celebrate good news/ healing, Affirm acceptance and gratitude, Emotional support, Introduced Patient/Family to Pantry Attendant Services, Supportive Listening, Spiritual support Pastoral Care Outcomes: Patient Outcomes: Expresses acceptance, Demonstrates lower level of Anxious(ness), Is knowledgeableabout [facility], Being at peace, Demonstrates and/or verbalizes increased comfort, Endorses increased sense of connection, Expresses intent to participate/comply in plan of care, Expresses e motionally release, Is functionally engaged in meaning making, Gratitude, Expresses feeling spiritually nurtured, Communicates increased satisfaction with hospital experience, Identifies spiritual orreligious practices as helpful, Expresses increased trust in medical team and/or plan of care, Appreciative of Pantry Attendant Support, Expresses being seen and heard Cosigned by Azeb Worthy at 03/23/2025 10:36 AM EDT Associated attestation - Azeb Worthy Billy - 03/23/2025 10:36 AM EDT This is to attest gynecology teacher international broadcast music librarian chart note has been reviewed and okayed. * Care Plan - Stone Hopper - 03/21/2025 3:54 AM EDT Problem: Adult Inpatient Plan of Care Goal: Plan of Care Review Outcome: Ongoing, Progressing Flowsheets (Taken 03/21/2025 0351) Progress: improving Plan of Care Reviewed With: patient Goal: Patient-Specific Goal (Individualized) Outcome: Ongoing, Progressing Flowsheets (Taken 03/20/2025 2100) Patient/Family-Specific Goals (Include Timeframe): pt keisha be free of injury or falls during shift Individualized Care Needs: safety Anxieties, Fears or Concerns: N/A Problem: Fall Injury Risk Goal: Absence of Fall and Fall-Related Injury Outcome: Ongoing, Progressing Intervention: Identify and Manage Contributors Flowsheets (Taken 03/21/2025 0351) Medication Review/Management: medications reviewed Self-Care Promotion: independence encouraged BADL personal objects within reach Problem: Pain Acute Goal: Optimal Pain Control and Function Outcome: Ongoing, Progressing Intervention: Optimize Psychosocial Wellbeing Flowsheets (Taken 03/21/2025 0351) Spiritual Activities Assistance: affirmation provided Intervention: Develop Pain Management Plan Flowsheets (Taken 03/21/2025 0351) Pain Management Interventions: medication (see MAR) * H&P - Navi Tripathi MD - 03/20/2025 7:52 PM EDTAssociated Order(s): Consult to [facility] Consult to [facility] Consult performed by: Navi Tripathi MD Consult ordered by: Navi Tripathi MD Subjective Chief complaint Worsening abdominal pain History Of Present Illness Rl Steward is a 64 yo M with decompensated cirrhosis complicated by recently diagnosed HCC, ischemic heart disease (HFmrEF, severe CAD, CABG x 4), and other co-morbidities who is presenting with worsening abdominal pain. Mr. Steward was recently seen in our institution after being found to have a LI- RADS TIV lesion on CT scan 01/2025. It was determined that the patient is not a candidate for surgical resection, and the next step would be systemic therapy and Y-90. He is supposed to get systemic treatment locally (atezolizumab), with follow-up scheduled for 03/22. He is presenting after having acute, severe, and progressive abdominal pain in the upper quadrants that began a day before. The severity of the pain caused him to present to [facility] ED, where CT scan showed interval enlargement of the liver lesion. Transferred to for further care. Medical/Surgical/Social/Family History I have reviewed and updated the patient history. Allergies Patient has no known allergies. Outpatient medications in system Home Medications[1] Medications ordered for hospitalization Current Scheduled Medications[2] Current Continuous Medications[3] Current PRN Medications[4] Objective Review of Systems Constitutional: Negative for chills and fever. Gastrointestinal: Positive for abdominal pain. Negative for constipation, diarrhea and vomiting. Genitourinary: Negative for dysuria. Psychiatric/Behavioral: Negative for behavioral problems. Physical Exam Constitutional: General: He is not in acute distress. Comments: sarcopenic HENT: Ears: Comments: Hard of hearing Cardiovascular: Rate and Rhythm: Normal rate. Heart sounds: No murmur heard. Pulmonary: Breath sounds: Normal breath sounds. No wheezing. Abdominal: Palpations: Abdomen is soft. Tenderness: There is abdominal tenderness. Musculoskeletal: Right lower leg: No edema. Left lower leg: No edema. Neurological: Mental Status: He is alert and oriented to person, place, and time. Motor: No weakness. Last Recorded Vitals Blood pressure 129/70, pulse 60, temperature 36.5 ??C (97.7 ??F), temperature source Oral, resp. rate 18, SpO2 98%. Results Review {Vanishing Link Review Results :[id number] I have reviewed the latest lab and imaging results. Assessment & Plan Hepatocellular carcinoma Rl Steward is a 64 yo M with decompensated cirrhosis complicated by recently diagnosed HCC, ischemic heart disease (HFmrEF, severe CAD, CABG x 4), and other co-morbidities who is presenting with worsening abdominal pain. HCC, with interval progression, causing worsening pain - Diagnosed 01/2025 - Plan for Y-90 and atezolizumab-- systemic therapy planned to be done locally (Dr. Gonzáles), appointment supposedly 03/22 - Presented due to worsening abdominal pain poorly controlled by home medication of oxycodone 7.5mgTID - Repeat CT imaging showed: interval enlargement of the liver lesion with new central necrosis. Differentials include: HCC with central necrosis, other neoplasm such as cholangioCa or hepatic abscesscommunicating with biliary tree PLAN - Suspect this is all cancer progression. Holding off on antibiotics-- no other signs/symptoms of sepsis - Switching PO oxycodone to PO Dilaudid PRN with IV for breakthrough/severe pain - After pain control, patient can hopefully make it to his outpatient appointments. To discuss withMed Onc tomorrow HFmrEF, ischemic heart disease (CABG x 4) PLAN - Continue ASA 81 for now - Resume HF meds in the AM-- may need to reconsider Entresto in setting of possible worsening of liver function - In the AM, verify need for clopidogrel. Hold statin in setting of rise in AST, but likely can resume Decompensated cirrhosis, with thrombocytopenia, HCC MELD 3.0: 6 at 03/20/2025 6:51 PM MELD-Na: 6 at 03/20/2025 6:51 PM Calculated from: Serum Creatinine: 0.77 mg/dL (Using min of 1 mg/dL) at 03/20/2025 6:51 PM Serum Sodium: 141 mmol/L (Using max of 137 mmol/L) at 03/20/2025 6:51 PM Total Bilirubin: 0.7 mg/dL (Using min of 1 mg/dL) at 03/20/2025 6:51 PM Serum Albumin: 3.7 g/dL (Using max of 3.5 g/dL) at 03/20/2025 6:51 PM INR(ratio): 1 at 03/20/2025 6:51 PM Age at listing (hypothetical): 64 years Sex: Male at 03/20/2025 6:51 PM PLAN - No history of HE, but watch out for constipation - Resume diuretic for HFmrEF as able STABLE/CHRONIC Mood disorder - Continue escitalopram Recent history of central cord syndrome - s/p ACDF C3-C4 11/2024; doing well Venous thromboembolism prophylaxis Patient on enoxaparin Diet Dietary Orders (From admission, onward) Start Ordered 03/20/251918 Adult diet Diet texture: Regular Diet effective now References: IDDSI Diet Texture Guide Question: Diet texture Answer: Regular 03/20/251917 Code Status Full Code [1] (Not in a hospital admission) [2] [START ON 03/21/2025] aspirin, 81 mg, Oral, Daily enoxaparin, 40 mg, Subcutaneous, Daily [START ON 03/21/2025] escitalopram, 20 mg, Oral, Daily [START ON 03/21/2025] polyethylene glycol, 17 g, Oral, Daily senna, 2 tablet, Oral, Nightly sodium chloride, 10 mL, Intravenous, q12h [3] [4] PRN medications: calcium carbonate, gi cocktail, HYDROmorphone, HYDROmorphone, ondansetron ODT OR ondansetron OR ondansetron, Insert peripheral IV AND Saline lock IV AND sodium chloride AND sodium chloride * Hospital Course - Lolly Flaherty MD - 03/20/2025 7:18 PM EDT Rl Steward is a 64 yo M with decompensated cirrhosis complicated by recently diagnosed HCC, ischemic heart disease (HFmrEF, severe CAD, CABG x 4), and other co-morbidities who is presenting with worsening abdominal pain. Pain medications were adjusted and pain improved. LFTS were elevated and as such his entresto and statin were held for now and should be reconsidered later * ED Provider Notes - Adrienne Moya PA - 03/20/2025 4:36 PM EDT Images from the original note were not included. - HPI Chief Complaint Patient presents with Abdominal Pain Rl Steward is a 64 y.o. male with history of cirrhosis, LA, CAD s/p CABG x4 with re-stenosis with revision, COPD, HTN, HFmrEF, central cord syndrome, inguinal hernia, cholelithiasis, recently disagnosed HCC with new central necrosis of tumor on CT at OSH today who presents with Abdominal Pain. Patient took prescription medication prior to arrival. Patient sent from [facility] for concern of tumor necrosis with fistulization to bile ducts. Patient reports epigastric, LUQ, and RUQ abdominal pain and pressure that began last night. He presented to [facility] for evaluation. He had a CT chest and CT abdomen pelvis demonstrating changes to liver malignancy. Patient has not started chemotherapy yet. Denies chest pain but endorses pressure below his ribs on R and L side. Familyconcerned he is having biliary issues and states he has a hx of stones. Denies shortness of breath,dysuria, syncope, hematemesis, hematochezia, diarrhea, vomiting. Patient History Past Medical History[1] Surgical History[2] Family History[3] Social History[4] Allergies: Allergies[5] Physical Exam ED Triage Vitals [03/20/25 1641] Temp Heart Rate Resp BP 36.5 ??C (97.7 ??F) 60 18 129/70 SpO2 Temp Source Heart Rate Source Patient Position 98 % Oral -- Sitting BP Location FiO2 (%) Right arm -- Physical Exam Vitals and nursing note reviewed. Constitutional: Appearance: He is ill-appearing. He is not toxic-appearing. HENT: Head: Normocephalic and atraumatic. Mouth/Throat: Mouth: Mucous membranes are moist. Pharynx: Oropharynx is clear. Eyes: Extraocular Movements: Extraocular movements intact. Cardiovascular: Rate and Rhythm: Normal rate and regular rhythm. Heart sounds: Normal heart sounds. No murmur heard. Pulmonary: Effort: Pulmonary effort is normal. No respiratory distress. Breath sounds: Normal breath sounds. Abdominal: General: Abdomen is flat. Palpations: Abdomen is soft. There is hepatomegaly and splenomegaly. Tenderness: There is abdominal tenderness in the right upper quadrant, epigastric area and left upper quadrant. Hernia: No hernia is present. Skin: General: Skin is warm and dry. Capillary Refill: Capillary refill takes less than 2 seconds. Coloration: Skin is not jaundiced. Neurological: General: No focal deficit present. Mental Status: He is alert. Psychiatric: Mood and Affect: Mood normal. Behavior: Behavior normal. Cinthia Coma Scale Score: 15 ED Course & MDM - Assessment: 64 y.o. male presents to ED with complaint of abdominal pain and abnormal CT results. It should be noted that the chronic conditions includes cirrhosis, LA, CAD s/p CABG x4 with re-stenosis with revision, COPD, HTN, HFmrEF, central cord syndrome, inguinal hernia, cholelithiasis, recently disagnosedHCC, which currently is not at goal therapy. This complicates the clinical picture because it Comorbidities: increases the amount and complexity of data to be reviewed, complicates the clinical workup, and increases the risk for morbidity Differential Diagnosis: metastatic changes, In order to fully explore the differential diagnosis the following treatments and tests were ordered: ED Medication Administration from 03/20/2025 1423 to 03/20/20251945 Date/Time Order Dose Route Action 03/20/2025 185 EDT fentaNYL (Sublimaze) injection 50 mcg 50 mcg Intravenous Given 03/20/20251852 EDT ondansetron (Zofran) injection 4 mg 4 mg Intravenous Given All Other Orders Ordered Status Ordering Provider 03/20/251945 CBC and Differential Morning draw Acknowledged NAVI TRIPATHI SUKUMAR A 03/20/251945 Comprehensive metabolic panel Morning draw Acknowledged NAVI TRIPATHI SUKUMAR A 03/20/251945 PT/INR Morning draw Acknowledged NAIV TRIPATHI SUKUMAR A 03/20/251934 Troponin T, High Sensitivity, 2 Hour, Plasma PROCEDURE ONCE Ordered NAVI TRIPATHI SUKUMAR A 03/20/251945 Vital Signs (No vitals between 10pm-8am) 4 times daily Placed in And Linked Group Acknowledged NAVI TRIPATHI SUKUMAR A 03/20/251945 Pulse Oximetry (No vitals between 10pm-8am) 4 times daily Placed in And Linked Group Acknowledged NAVI TRIPATHI SUKUMAR A 03/20/251945 Do Not Give Nicotine Replacement Until discontinued Acknowledged VI TRIPATHIRICIA SUKUMAR A 03/20/251945 Full code Continuous Acknowledged VI TRIPATHIRICIA SUKUMAR A 03/20/25 194 Sequential compression device Until discontinued Comments: SCDs must be in place and turned on EXCEPT when ACTIVELY ambulating. Acknowledged VI TRIPATHIRICIA SUKUMAR A 03/20/251945 Admit to inpatient Once Completed MYNORVI JESSICANAVI SUKUMAR A 03/20/25 194 Mobility Orders Until discontinued Acknowledged VI TRIPATHIRICIA SUKUMAR A 03/20/251945 Notify physician (specify parameters) Until discontinued Acknowledged VI TRIPATHIRICIA SUKUMAR A 03/20/251945 Insert peripheral IV Once Placed in And Linked Group Completed MYNORVI JESSICANAVI SUKUMAR A 03/20/251945 Saline lock IV Once Placed in And Linked Group Completed MYNORVI JESSICANAVI SUKUMAR A 03/20/251917 Off-Cycle Tray Request for Patient Once Completed ASPEN MOYALINE A 03/20/251917 Adult diet Diet texture: Regular Diet effective now Acknowledged JEFRY TRIPATHIIA SUKUMAR A 03/20/251900 Consult to [facility] Medicine [facility] Once Specialty: Internal Medicine Provider: (Not yet assigned) Acknowledged NAVI TRIPATHI SUKUMAR A 03/20/251900 ED to floor bed request Once Completed ASPEN MOYALINE A 03/20/25 1742 Once Provider: (Not yet assigned) Canceled ASPEN MOYALINE A 03/20/25 171 Troponin now and 120 min STAT Final result ASPEN MOYALINE A 03/20/251718 EKG now - STAT (adult) Once Final result GRIFFIN ADRIENNE A 03/20/251715 Hepatitis C Antibody - ED Once Final result ASPEN MOYALINE A 03/20/251715 ED Protocol - HIV 1/2 Antibody/Antigen Screen Once Final result ASPEN MOYALINE A 03/20/251715 ED HIV 1/2 Antibody/Antigen Screen w/Reflex to HIV 1/2 Differentiation PROCEDURE ONCE Final result ADRIENNE MOYA A 03/20/251715 APTT STAT Final result MADISONMENASPENADRIENNE A 07/22/25 1716 C-Reactive protein STAT Final result ADRIENNE MOYA 03/20/25 1716 CBC w/diff STAT Final result ADRIENNE MOYA 03/20/25 1716 CMP STAT Final result ADRIENNE MOYA 03/20/25 171 PT-INR STAT Final result ADRIENNE MOYA 03/20/25 1716 Lipase STAT Final result ADRIENNE MOYA 03/20/25 171 Lactic acid, venous STAT Final result ADRIENNE MOYA ED Course as of 03/20/252225Mar 20, 2025 165 BP: 129/70 [MR] 1658 Heart Rate: 60 [MR] 1658 Resp: 18 [MR] 1658 SpO2: 98 % [MR] 1658 Temp: 36.5 ??C (97.7 ??F) [MR] 1700 On my initial assessment patient was HDS, afebrile. They were not in acute distress, AOX4, no obvious neuro deficitis. They report abdominal pain and epigastric pressure that began last night. Was seen at [facility] and had CT scan of chest and belly. CT abdomen showed concerning changes with recent hepatocellular carcinoma diagnosis. Physical exam remarkable for hepatosplenomegaly, TTP RUQ and LUQ. Not jaundiced. Initial workup to include repeat labs and give pain control. [MR] 1737 ECG independently interpreted by this provider shows atrial paced rhythm with anterolateral T-wave inversions, no other acute changes [SO] [address] Saleh, will plan to start consulting surg onc. Consult placed and paged ESS [MR] 1811 After discussion with ESS resident, patient [facility] be [facility] medicine and transplant teamwill see him tomorrow. No needs overnight. [MR] 1904 Reached out to hospital medicine for admission [MR] 1917 They agree to admit patient to [facility] for multidisciplinary care. They will put in admissionorders and transfer him to [facility]. Patient updated on plan and provided ice cream. [MR] ED Course User Index [MR] GriffinAdrienne PA [SO] Clotilde Saleh MD Clinical Impressions as of 03/20/252225 Epigastric pain Hepatocellular carcinoma Alcoholic cirrhosis of liver without ascites (CMS/HCC) Social Determinates of Health Risks (including Economic Stability, Education and level of understanding, Healthcare access and quality and concerning social factors): Lives far away Ultimately, this patient was Was admitted (Admission) The primary encounter diagnosis was Epigastric pain. Diagnoses of Hepatocellular carcinoma and Alcoholic cirrhosis of liver without ascites (CMS/HCC) were also pertinent to this visit.. Patient believed to require admission for the listed diagnoses. The Internal Medicine service was consulted for admission and was agreeable to admit to Acute Floor (Med/Surg). ED Prescriptions None Disposition Admit Bed request comments: To be transferred to [facility] Admitting/Attending Physician: NAVI TRIPATHI [[id number]] Provider Care Team: [facility] 11 [194] Are they the primary team?: Yes [1] - [1] Past Medical History: Diagnosis Date COPD (chronic obstructive pulmonary disease) (CMS/HCC) Liver cancer (CMS/HCC) Mitral valve prolapse Myocardial infarction (CMS/HCC) [2] Past Surgical History: Procedure Laterality Date BACK SURGERY 1997 CARDIAC SURGERY 2003 CARDIAC SURGERY 2004 HERNIA REPAIR 1999 Chest Area NECK SURGERY 2024 [3] No family history on file. [4] [5] No Known Allergies Adrienne Moya PA 03/20/252225 Cosigned by Clotilde Saleh MD at 03/20/2025 10:28 PM EDT Associated attestation - Clotilde Saleh MD - 03/20/2025 10:28 PM EDT I attest to being involved in more than half the total time in patient care. * ED Triage Notes - Wenceslao Jim RN - 03/20/2025 4:36 PM EDT Pt to osh for eval increased abd pressure and swelling. Pt dx with liver ca 2 weeks ago. documented in this encounter Plan of Treatment Not on file documented as of this encounter Procedures Procedure Name Priority Date/Time Associated Diagnosis Comments PROTHROMBIN TIME(PT) / INR Routine 03/21/2025 6:32 AM EDT CBC WITH AUTO DIFFERENTIAL Routine 03/21/2025 6:32 AM EDT COMPREHENSIVE METABOLIC PANEL, PLASMA Routine 03/21/2025 6:32 AM EDT TROPONIN T, HIGH SENSITIVITY, 2 HOUR, PLASMA Timed 03/20/2025 10:54 PM EDT ED HIV 1/2 ANTIBODY/ANTIGEN SCREEN WITH REFLEX TO HIV I/II DIFFERENTIATION STAT 03/20/2025 6:51 PM EDT ED PROTOCOL HIV 1/2 ANTIBODY/ANTIGEN SCREEN W/REFLEX TO HIV 1/2 ANTIBODY DIFFERENTIATION STAT 03/20/2025 6:51 PM EDT TROPONIN T, HIGH SENSITIVITY, 0 HOUR, PLASMA, REFLEX TO 2 HOUR STAT 03/20/2025 6:51 PM EDT LACTATE, VENOUS STAT 03/20/2025 6:51 PM EDT HEPATITIS C ANTIBODY - ED W/REFLEX TO HCV QUANT PCR STAT 03/20/2025 6:51 PM EDT APTT STAT 03/20/2025 6:51 PM EDT PROTHROMBIN TIME(PT) / INR STAT 03/20/2025 6:51 PM EDT CBC WITH AUTO DIFFERENTIAL STAT 03/20/2025 6:51 PM EDT C-REACTIVE PROTEIN, PLASMA STAT 03/20/2025 6:51 PM EDT LIPASE, PLASMA STAT 03/20/2025 6:51 PM EDT COMPREHENSIVE METABOLIC PANEL, PLASMA STAT 03/20/2025 6:51 PM EDT ECG ADULT STAT 03/20/2025 5:31 PM EDT documented in this encounter Results * PT/INR (03/21/2025 6:32 AM EDT) Pathologist [facility] Prothrombin Time 13.8 12.0 - 14.3 sec LAB COAGULATION METHOD 03/21/2025 7:00 AM EDT [facility] INR 1.1 0.9 - 1.1 LAB COAGULATION METHOD 03/21/2025 7:00 AM EDT [facility] Blood Venous blood specimen / Unknown Venipuncture / Unknown 03/21/2025 6:32 AM EDT 03/21/2025 6:43 AM EDT Narrative [facility] - 03/21/2025 7:00 AM EDT OPTIMAL INR RANGES FOR PATIENT ON ORAL ANTICOAGULANT THERAPY Prevention of venous thromboembolism INR 2.0 to 3.0 In patients with heart disease: Atrial fibrillation INR 2.0 to 3.0 Valvular heart disease INR 2.0 to 3.0 Tissue heart valves INR 2.0 to 3.0 Mechanical prosthetic valves INR 2.5 to 3.5 Prevention of recurrent LA INR 2.5 to 3.5 us Navi Tripathi MD LAB BLOOD ORDERABLE S Final Result [facility] [address] [place] [address] * (ABNORMAL) Comprehensive metabolic panel (03/21/2025 6:32 AM EDT) Pathologist [facility] Glucose, Plasma 107(H) 74 - 99 mg/dL 03/21/2025 7:11 AM EDT [facility] BUN, Plasma 12 8 - 23 mg/dL 03/21/2025 7:11 AM EDT [facility] Creatinine, Plasma 0.77 0.70 - 1.20 mg/dL 03/21/2025 7:11 AM EDT [facility] BUN/Creatinine Ratio 16 03/21/2025 7:11 AM EDT [facility] Sodium, Plasma 139 136 - 145 mmol/L 03/21/2025 7:11 AM EDT [facility] Potassium, Plasma 4.6 3.6 - 4.9 mmol/L 03/21/2025 7:11 AM EDT [facility] Comment:Hemolyzed, result ma y be falsely increased. Chloride, Plasma 105 97 - 107 mmol/L 03/21/2025 7:11 AM EDT [facility] CO2, Plasma 23 22 - 29 mmol/L 03/21/2025 7:11 AM EDT [facility] Anion Gap 11 6 - 16 mmol/L 03/21/2025 7:11 AM EDT [facility] Total Calcium, Plasma 9.4 8.9 - 10.2 mg/dL 03/21/2025 7:11 AM EDT [facility] Total Protein 7.0 6.3 - 7.9 g/dL 03/21/2025 7:11 AM EDT [facility] Albumin, Plasma 3.6 3.5 - 5.2 g/dL 03/21/2025 7:11 AM EDT [facility] AST, Plasma 621(H) 10 - 50 U/L 03/21/2025 7:11 AM EDT [facility] Comment:Hemolyzed, result ma y be falsely increased. ALT, Plasma 48 10 - 50 U/L 03/21/2025 7:11 AM EDT [facility] Alkaline Phosphatase, Plasma 232(H) 40 - 115 U/L 03/21/2025 7:11 AM EDT [facility] Total Bilirubin, Plasma 0.6 0.2 - 1.1 mg/dL 03/21/2025 7:11 AM EDT [facility] eGFRcr 98.7 mL/min/1.7 3m*2 03/21/2025 7:11 AM EDT [facility] Comment:Reported eGFRcr in m L/min/1.73m2 is based the CKD-EPI 2020 equation that does not use a race coefficient. Blood Venous blood specimen / Unknown Venipuncture / Unknown 03/21/2025 6:32 AM EDT 03/21/2025 6:43 AM EDT us Navi Tripathi MD LAB BLOOD ORDERABLE S Final Result [facility] [address] [place] [address] * (ABNORMAL) CBC and Differential (03/21/2025 6:32 AM EDT) WBC Count 6.12 3.70 - 10.30 10*3/uL LAB HEMATOLOGY METHOD 03/21/2025 6:58 AM EDT [facility] RBC Count 4.62 4.60 - 6.10 10*6/uL LAB HEMATOLOGY METHOD 03/21/2025 6:58 AM EDT [facility] HGB 15.2 13.7 - 17.5 g/dL LAB HEMATOLOGY METHOD 03/21/2025 6:58 AM EDT [facility] HCT 45.4 40.0 - 51.0 % LAB HEMATOLOGY METHOD 03/21/2025 6:58 AM EDT [facility] Platelet Count 82(L) 155 - 369 10*3/uL LAB HEMATOLOGY METHOD 03/21/2025 6:58 AM EDT [facility] MCV 98 79 - 98 fL LAB HEMATOLOGY METHOD 03/21/2025 6:58 AM EDT [facility] MCH 32.9(H) 26.0 - 32.0 pg LAB HEMATOLOGY METHOD 03/21/2025 6:58 AM EDT [facility] MCHC 33.5 30.7 - 35.5 g/dL LAB HEMATOLOGY METHOD 03/21/2025 6:58 AM EDT [facility] RDW 16.8(H) 11.5 - 14.5 % LAB HEMATOLOGY METHOD 03/21/2025 6:58 AM EDT [facility] MPV 12.2 8.8 - 12.5 fL LAB HEMATOLOGY METHOD 03/21/2025 6:58 AM EDT [facility] nRBC 0.0 <=0.0 per 100 WBCs LAB HEMATOLOGY METHOD 03/21/2025 6:58 AM EDT [facility] Differential Type Automated LAB HEMATOLOGY METHOD 03/21/2025 6:58 AM EDT [facility] Neutrophils % 55 % LAB HEMATOLOGY METHOD 03/21/2025 6:58 AM EDT [facility] Lymphocytes % 24 % LAB HEMATOLOGY METHOD 03/21/2025 6:58 AM EDT [facility] Monocytes % 17 % LAB HEMATOLOGY METHOD 03/21/2025 6:58 AM EDT [facility] Eosinophils % 2 % LAB HEMATOLOGY METHOD 03/21/2025 6:58 AM EDT [facility] Basophils % 1 % LAB HEMATOLOGY METHOD 03/21/2025 6:58 AM EDT [facility] Immature Granulocytes % 1 % LAB HEMATOLOGY METHOD 03/21/2025 6:58 AM EDT [facility] Neutrophils Absolute 3.46 1.60 - 6.10 10*3/uL LAB HEMATOLOGY METHOD 03/21/2025 6:58 AM EDT [facility] Lymphocytes Absolute 1.45 1.20 - 3.90 10*3/uL LAB HEMATOLOGY METHOD 03/21/2025 6:58 AM EDT [facility] Monocytes Absolute 1.03(H) 0.30 - 0.90 10*3/uL LAB HEMATOLOGY METHOD 03/21/2025 6:58 AM EDT [facility] Eosinophils Absolute 0.11 0.00 - 0.50 10*3/uL LAB HEMATOLOGY METHOD 03/21/2025 6:58 AM EDT [facility] Basophils Absolute 0.04 0.00 - 0.10 10*3/uL LAB HEMATOLOGY METHOD 03/21/2025 6:58 AM EDT [facility] Immature Granulocytes Absolute 0.03 0.00 - 0.06 10*3/uL LAB HEMATOLOGY METHOD 03/21/2025 6:58 AM EDT [facility] Blood Venous blood specimen / Unknown Venipuncture / Unknown 03/21/2025 6:32 AM EDT 03/21/2025 6:43 AM EDT Narrative [facility] - 03/21/2025 6:58 AM EDT Therapeutic decision making should be based on absolute values, rather than percentages. us Navi Tripathi MD LAB BLOOD ORDERABLE S Final Result [facility] [address] [place] [address] * Troponin T, High Sensitivity, 2 Hour, Plasma (03/20/2025 10:54 PM EDT) Troponin T, High Sensitivity, 2 Hour 10 <19 ng/L 03/20/2025 11:31 PM EDT [facility] Blood Venous blood specimen / Unknown Venipuncture / Unknown 03/20/2025 10:54 PM EDT 03/20/2025 11:04 PM EDT Navi Tripathi MD LAB BLOOD ORDERABLE S Final Result [facility] [address] [place] [address] * Troponin now and 120 min (03/20/2025 6:51 PM EDT) Troponin T, High Sensitivity, 0 Hour 9 <19 ng/L 03/20/2025 7:35 PM EDT [facility] Blood Venous blood specimen / Unknown Venipuncture / Unknown 03/20/2025 6:51 PM EDT 03/20/2025 7:[address] [facility] Adrienne SmithMedipacs [employer] LAB BLOOD ORDERABLES Courtney l Result Performing Organization Address City/[facility]/ZIP Co de Phone Number [facility] [address] [place] [address] * ED HIV 1/2 Antibody/Antigen Screen w/Reflex to HIV 1/2 Differentiation (03/20/2025 6:51 PM EDT) Pathologist [facility] HIV 1 & 2 Antibody/Antigen Screen Non Reactive Non Reactive 03/20/2025 8:05 PM EDT [facility] Comment:Screening for HIV 1 & 2 antibodies, and P24 antigen is NONREACTIVE. No confirmatory testing is required. Blood Venous blood specimen / Unknown Venipuncture / Unknown 03/20/2025 6:51 PM EDT 03/20/2025 7:[address] [facility] Adrienne Driscoll CorrelsenseMedip[employer] PA LAB BLOOD ORDERABLES Courtney l Result Performing Organization Address City/[facility]/ZIP Co de Phone Number [facility] [address] [place] [address] * Hepatitis C Antibody - ED (03/20/2025 6:51 PM EDT) [facility] Hepatitis C Antibody Negative Negative 03/20/2025 8:01 PM EDT [facility] Blood Venous blood specimen / Unknown Venipuncture / Unknown 03/20/2025 6:51 PM EDT 03/20/2025 7:09 PM EDT Adrienne A [employer] PA LAB BLOOD ORDERABLES Courtney l Result Performing Organization Address City/[facility] Co de Phone Number [facility] [address] [place] [address] * APTT (03/20/2025 6:51 PM EDT) [facility] aPTT 31 25 - 35 sec 03/20/2025 7:25 PM EDT [facility] Blood Venous blood specimen / Unknown Venipuncture / Unknown 03/20/2025 6:51 PM EDT 03/20/2025 7:08 PM EDT Adrienne A CorrelsensesaMedipacs PA LAB BLOOD ORDERABLES Courtney l Result Performing Organization Address [facility] de Phone Number [facility] [address] [place] [address] * C-Reactive protein (03/20/2025 6:51 PM EDT) [facility] CRP, Plasma 5.2 <=8.0 mg/L 03/20/2025 7:35 PM EDT [facility] Blood Venous blood specimen / Unknown Venipuncture / Unknown 03/20/2025 6:51 PM EDT 03/20/2025 7:09 PM EDT Narrative [facility] - 03/20/2025 7:35 PM EDT This CRP test is appropriate for assessment of infection, systemic inflammation and/or tissue injury. To assess cardiovascular disease risk order high sensitivity CRP (CRPH). us Adrienne A [employer] PA LAB BLOOD ORDERABLES Courtney l Result Performing Organization Address [facility] Co de Phone Number [facility] [address] [place] [address] * Lactic acid, venous (03/20/2025 6:51 PM EDT) Pathologist [facility] Lactate, Venous, Whole Blood 1.7 0.5 - 2.2 mmol/L LAB HEMATOLOGY METHOD 03/20/2025 7:12 PM EDT [facility] Blood Venous blood specimen / Unknown Venipuncture / Unknown 03/20/2025 6:51 PM EDT 03/20/2025 7:08 PM EDT Adrienne A [employer] LAB BLOOD ORDERABLES Courtney l Result [facility] [address] [place] [address] * Lipase (03/20/2025 6:51 PM EDT) Pathologist [facility] Lipase, Plasma 19 19 - 63 U/L 03/20/2025 7:35 PM EDT [facility] Blood Venous blood specimen / Unknown Venipuncture / Unknown 03/20/2025 6:51 PM EDT 03/20/2025 7:09 PM EDT Adrienne A [employer] PA LAB BLOOD ORDERABLES Courtney l Result Performing Organization Address City/[facility] Co de Phone Number [facility] [address] [place] [address] * PT-INR (03/20/2025 6:51 PM EDT) [facility] Prothrombin Time 13.8 12.0 - 14.3 sec 03/20/2025 7:24 PM EDT [facility] INR 1.0 0.9 - 1.1 03/20/2025 7:24 PM EDT [facility] Blood Venous blood specimen / Unknown Venipuncture / Unknown 03/20/2025 6:51 PM EDT 03/20/2025 7:08 PM EDT Narrative [facility] - 03/20/2025 7:24 PM EDT OPTIMAL INR RANGES FOR PATIENT ON ORAL ANTICOAGULANT THERAPY Prevention of venous thromboembolism INR 2.0 to 3.0 In patients with heart disease: Atrial fibrillation INR 2.0 to 3.0 Valvular heart disease INR 2.0 to 3.0 Tissue heart valves INR 2.0 to 3.0 Mechanical prosthetic valves INR 2.5 to 3.5 Prevention of recurrent LA INR 2.5 to 3.5 us Adrienne HURTADO LAB BLOOD ORDERABLES Courtney vega Result [facility] [address] [place] [id number] * (ABNORMAL) CMP (03/20/2025 6:51 PM EDT) Pathologist [facility] Glucose, Plasma 89 74 - 99 mg/dL 03/20/2025 7:47 PM EDT [facility] BUN, Plasma 15 8 - 23 mg/dL 03/20/2025 7:47 PM EDT [facility] Creatinine, Plasma 0.77 0.70 - 1.20 mg/dL 03/20/2025 7:47 PM EDT [facility] BUN/Creatinine Ratio 19 03/20/2025 7:47 PM EDT [facility] Sodium, Plasma 141 136 - 145 mmol/L 03/20/2025 7:47 PM EDT [facility] Potassium, Plasma 3.9 3.6 - 4.9 mmol/L 03/20/2025 7:47 PM EDT [facility] Chloride, Plasma 102 97 - 107 mmol/L 03/20/2025 7:47 PM EDT [facility] CO2, Plasma 26 22 - 29 mmol/L 03/20/2025 7:47 PM EDT [facility] Anion Gap 13 6 - 16 mmol/L 03/20/2025 7:47 PM EDT [facility] Total Calcium, Plasma 9.6 8.9 - 10.2 mg/dL 03/20/2025 7:47 PM EDT [facility] Total Protein 7.4 6.3 - 7.9 g/dL 03/20/2025 7:47 PM EDT [facility] Albumin, Plasma 3.7 3.5 - 5.2 g/dL 03/20/2025 7:47 PM EDT [facility] AST, Plasma 395(H) 10 - 50 U/L 03/20/2025 7:47 PM EDT [facility] Comment:Hemolyzed, result ma y be falsely increased. ALT, Plasma 43 10 - 50 U/L 03/20/2025 7:47 PM EDT [facility] Alkaline Phosphatase, Plasma 210(H) 40 - 115 U/L 03/20/2025 7:47 PM EDT [facility] Total Bilirubin, Plasma 0.7 0.2 - 1.1 mg/dL 03/20/2025 7:47 PM EDT [facility] eGFRcr 98.7 mL/min/1.7 3m*2 03/20/2025 7:47 PM EDT [facility] Comment:Reported eGFRcr in m L/min/1.73m2 is based the CKD-EPI 2020 equation that does not use a race coefficient. Blood Venous blood specimen / Unknown Venipuncture / Unknown 03/20/2025 6:51 PM EDT 03/20/2025 7:09 PM EDT Adrienne HURTADO LAB BLOOD ORDERABLES Courtney l Result [facility] [address] [place] [address] * (ABNORMAL) CBC w/diff (03/20/2025 6:51 PM EDT) WBC Count 6.84 3.70 - 10.30 10*3/uL LAB HEMATOLOGY METHOD 03/20/2025 7:21 PM EDT [facility] RBC Count 4.63 4.60 - 6.10 10*6/uL LAB HEMATOLOGY METHOD 03/20/2025 7:21 PM EDT [facility] HGB 15.3 13.7 - 17.5 g/dL LAB HEMATOLOGY METHOD 03/20/2025 7:21 PM EDT [facility] HCT 44.8 40.0 - 51.0 % LAB HEMATOLOGY METHOD 03/20/2025 7:21 PM EDT [facility] Platelet Count 79(L) 155 - 369 10*3/uL LAB HEMATOLOGY METHOD 03/20/2025 7:21 PM EDT [facility] MCV 97 79 - 98 fL LAB HEMATOLOGY METHOD 03/20/2025 7:21 PM EDT [facility] MCH 33.0(H) 26.0 - 32.0 pg LAB HEMATOLOGY METHOD 03/20/2025 7:21 PM EDT [facility] MCHC 34.2 30.7 - 35.5 g/dL LAB HEMATOLOGY METHOD 03/20/2025 7:21 PM EDT [facility] RDW 16.5(H) 11.5 - 14.5 % LAB HEMATOLOGY METHOD 03/20/2025 7:21 PM EDT [facility] MPV 11.2 8.8 - 12.5 fL LAB HEMATOLOGY METHOD 03/20/2025 7:21 PM EDT [facility] nRBC 0.0 <=0.0 per 100 WBCs LAB HEMATOLOGY METHOD 03/20/2025 7:21 PM EDT [facility] Differential Type Automated LAB HEMATOLOGY METHOD 03/20/2025 7:21 PM EDT [facility] Neutrophils % 60 % LAB HEMATOLOGY METHOD 03/20/2025 7:21 PM EDT [facility] Lymphocytes % 26 % LAB HEMATOLOGY METHOD 03/20/2025 7:21 PM EDT [facility] Monocytes % 12 % LAB HEMATOLOGY METHOD 03/20/2025 7:21 PM EDT [facility] Eosinophils % 2 % LAB HEMATOLOGY METHOD 03/20/2025 7:21 PM EDT [facility] Basophils % 0 % LAB HEMATOLOGY METHOD 03/20/2025 7:21 PM EDT [facility] Immature Granulocytes % 0 % LAB HEMATOLOGY METHOD 03/20/2025 7:21 PM EDT [facility] Neutrophils Absolute 4.05 1.60 - 6.10 10*3/uL LAB HEMATOLOGY METHOD 03/20/2025 7:21 PM EDT [facility] Lymphocytes Absolute 1.77 1.20 - 3.90 10*3/uL LAB HEMATOLOGY METHOD 03/20/2025 7:21 PM EDT [facility] Monocytes Absolute 0.85 0.30 - 0.90 10*3/uL LAB HEMATOLOGY METHOD 03/20/2025 7:21 PM EDT [facility] Eosinophils Absolute 0.11 0.00 - 0.50 10*3/uL LAB HEMATOLOGY METHOD 03/20/2025 7:21 PM EDT [facility] Basophils Absolute 0.03 0.00 - 0.10 10*3/uL LAB HEMATOLOGY METHOD 03/20/2025 7:21 PM EDT [facility] Immature Granulocytes Absolute 0.03 0.00 - 0.06 10*3/uL LAB HEMATOLOGY METHOD 03/20/2025 7:21 PM EDT [facility] Blood Venous blood specimen / Unknown Venipuncture / Unknown 03/20/2025 6:51 PM EDT 03/20/2025 7:08 PM EDT Narrative [facility] - 03/20/2025 7:21 PM EDT Therapeutic decision making should be based on absolute values, rather than percentages. Adrienne HURTADO LAB BLOOD ORDERABLES Courtney l Result Performing Organization Address City/[facility]/ZIP Co de Phone Number [facility] [address], [place] [id number] * EKG now - STAT (adult) (03/20/2025 5:31 PM EDT) EKG DIAGNOSIS CLASS Abnormal MUSE ECG Ventricular Rate 60 BPM MUSE ECG Atrial Rate 60 BPM MUSE ECG AR Interval 176 ms MUSE ECG QRSD Interval 86 ms MUSE ECG QT Interval 422 ms MUSE ECG QTC Interval 422 ms MUSE ECG P Matthews 53 degrees MUSE ECG R Matthews -37 degrees MUSE ECG T Wave Matthews 80 degrees MUSE ECG Diagnosis Atrial-paced rhythm MUSE ECG Diagnosis Left axis deviation MUSE ECG Diagnosis T wave abnormality, consider anterior ischemia MUSE ECG Diagnosis Abnormal ECG MUSE ECG Diagnosis MUSE ECG Diagnosis Confirmed by J Carlos Campbell ([id number]) on 03/20/2025 5:41:58 PM MUSE ECG 03/20/2025 5:31 PM EDT 03/20/2025 5:41 PM EDT Adrienne HURTADO ECG ORDERABLES Final Res ult Performing Organization Address [facility] Co de Phone Number MUSE ECG documented in this encounter Visit Diagnoses Diagnosis Hepatocellular carcinoma- Primary Malignant neoplasm of liver, primary Epigastric pain Abdominal pain, epigastric Hepatocellular carcinoma Malignant neoplasm of liver, primary Alcoholic cirrhosis of liver without ascites (CMS/HCC) documented in this encounter Admitting Diagnoses Diagnosis Hepatocellular carcinoma Malignant neoplasm of liver, primary documented in this encounter Administered Medications Inactive Administered Medications - up to 3 most recent administrations Medication Order MAR Action Action Date Dose Rate Site aspirin chewable tablet 81 mg 81 mg, Oral, Daily, First dose on Wed03/21/25 at 0900, Until Discontinued, Routine Given 03/21/2025 8:10 AM EDT 81 mg bisoprolol (Zebeta) tablet 5 mg 5 mg, Oral, Daily, First dose on Wed03/21/25 at 1830, Until Discontinued, Routine Given 03/21/2025 6:22 PM EDT 5 mg calcium carbonate (Tums) chewable tablet 500 mg 500 mg, Oral, Every 4 hours PRN, Starting on Wed03/20/25 at 1946, Until Wed03/21/25 at 2050, Routine, indigestion, heartburn clopidogrel (Plavix) tablet 75 mg 75 mg, Oral, Daily, First dose on Wed03/21/25 at 1830, Until Discontinued, Routine Given 03/21/2025 6:22 PM EDT 75 mg enoxaparin (Lovenox) syringe 40 mg 40 mg, Subcutaneous, Daily, First dose on Wed03/20/25 at 1950, Until Discontinued, Routine Given 03/21/2025 8:09 AM EDT 40 mg Right Lower Abdomen Given 03/20/2025 8:57 PM EDT 40 mg Le ft Lower Abdomen escitalopram (Lexapro) tablet 20 mg 20 mg, Oral, Daily, First dose on Wed03/21/25 at 0900, Until Discontinued, Routine Given 03/21/2025 8:10 AM EDT 20 mg fentaNYL (Sublimaze) injection 50 mcg 50 mcg, Intravenous, Once, 1 dose, On Wed03/20/25 at 1720, STAT Given 03/20/2025 6:53 PM EDT 50 mcg furosemide (Lasix) tablet 20 mg 20 mg, Oral, Daily, First dose on Wed03/21/25 at 1815, Until Discontinued, Routine Given 03/21/2025 6:22 PM EDT 20 mg gi cocktail oral solution 30 mL 30 mL, Oral, 4 times daily PRN, 4 doses, Starting on Wed03/20/25 at 1946, Until Wed03/21/25 at 2050, Routine, cramping, abdominal pain HYDROmorphone (Dilaudid) injection 0.5 mg 0.5 mg, Intravenous, Every 4 hours PRN, Starting on Wed03/20/25 at 1947, Until Wed03/21/25 at 0047, Routine, severe pain Given 03/20/2025 8:58 PM EDT 0.5 mg HYDROmorphone (Dilaudid) injection 1 mg 1 mg, Intravenous, Every 3 hours PRN, Starting on Wed03/21/25 at 0047, Until Wed03/21/25 at 2050, Routine, breakthrough pain Given 03/21/2025 3:54 PM EDT 1 mg Given 03/21/2025 8:10 AM EDT 1 mg Given 03/21/2025 1:06 AM EDT 1 mg HYDROmorphone (Dilaudid) tablet 2 mg 2 mg, Oral, Every 4 hours PRN, Starting on Wed03/20/25 at 194, Until Wed03/21/25 at 2050, Routine, moderate pain Given 03/21/2025 12:28 PM EDT 2 mg Given 03/21/2025 6:48 AM EDT 2 mg Given 03/20/2025 10:46 PM EDT 2 mg HYDROmorphone (Dilaudid) tablet 3 mg 3 mg, Oral, Every 4 hours PRN, Starting on Wed03/21/25 at 0047, Until Wed03/21/25 at 2050, Routine, severe pain ondansetron (Zofran) 4 MG/5ML solution 4 mg 4 mg, Oral, Every 6 hours PRN, Starting on Wed03/20/25 at 194, Until Wed03/21/25 at 2050, Routine, nausea, vomiting ondansetron (Zofran) injection 4 mg 4 mg, Intravenous, Once, 1 dose, On Wed03/20/25 at 1720, STAT Given 03/20/2025 6:53 PM EDT 4 mg ondansetron (Zofran) injection 4 mg 4 mg, Intravenous, Every 6 hours PRN, Starting on Wed03/20/25 at 194, Until Wed03/21/25 at 2050, Routine, vomiting, nausea ondansetron ODT (Zofran-ODT) disintegrating tablet 4 mg 4 mg, Oral, Every 6 hours PRN, Starting on Wed03/20/25 at 194, Until Wed03/21/25 at 2050, Routine, nausea, vomiting polyethylene glycol (Miralax) packet 17 g 17 g, Oral, Daily, First dose on Wed03/21/25 at 0900, Until Discontinued, Routine Given 03/21/2025 8:10 AM EDT 17 g senna (Senokot) tablet 17.2 mg 17.2 mg (2 tablet), Oral, Nightly, First dose on Wed03/20/25 at 2100, Until Discontinued, Routine Given 03/20/2025 8:58 PM EDT 17.2 mg sodium chloride 0.9 % flush 10 mL 10 mL, Intravenous, Every 12 hours, First dose on Wed03/20/25 at 1950, Until Discontinued, Routine Given 03/21/2025 8:12 AM EDT 10 mL Given 03/20/2025 9:33 PM EDT 10 mL sodium chloride 0.9 % flush 10 mL 10 mL, Intravenous, As needed, Starting on Wed03/20/25 at 1944, Until Wed03/21/25 at 2050, Routine, line care documented in this encounter Active and Recently Administered Medications Times are shown in EDT. Scheduled Medication Order 03/19/2025 03/20/2025 03/21/2025 aspirin chewable tablet 81 mg 81 mg, Oral, Daily, First dose on Wed03/21/25 at 0900, Until Discontinued, Routine 08 (Given - Provid er: Sandy Moseley RN) bisoprolol (Zebeta) tablet 5 mg 5 mg, Oral, Daily, First dose on Wed03/21/25 at 1830, Until Discontinued, Routine 1821 (Given - Provid er: Sandy Moseley RN) clopidogrel (Plavix) tablet 75 mg 75 mg, Oral, Daily, First dose on Wed03/21/25 at 1830, Until Discontinued, Routine 1821 (Given - Provid er: Sandy Moseley RN) enoxaparin (Lovenox) syringe 40 mg 40 mg, Subcutaneous, Daily, First dose on Wed03/20/25 at 1950, Until Discontinued, Routine 2056 (Given - Provider: Shannon Adler RN) 0809 (Given - Provider: Sandy Moseley RN) escitalopram (Lexapro) tablet 20 mg 20 mg, Oral, Daily, First dose on Wed03/21/25 at 0900, Until Discontinued, Routine 0810 (Given - Provid er: Snady Moseley RN) fentaNYL (Sublimaze) injection 50 mcg (COMPLETED) 50 mcg, Intravenous, Once, 1 dose, On Wed03/20/25 at 1720, STAT 1853 (Given - Provider: Felipa Engle RN) furosemide (Lasix) tablet 20 mg 20 mg, Oral, Daily, First dose on Wed03/21/25 at 1815, Until Discontinued, Routine 182 (Given - Provid er: Sandy Moseley RN) ondansetron (Zofran) injection 4 mg (COMPLETED) 4 mg, Intravenous, Once, 1 dose, On Wed03/20/25 at 1720, STAT 1853 (Given - Provider: Felipa Engle RN) polyethylene glycol (Miralax) packet 17 g 17 g, Oral, Daily, First dose on Wed03/21/25 at 0900, Until Discontinued, Routine 0810 (Given - Provid er: Sandy Moseley RN) senna (Senokot) tablet 17.2 mg 17.2 mg (2 tablet), Oral, Nightly, First dose on Wed03/20/25 at 2100, Until Discontinued, Routine 2057 (Given - Provider: Shannon Adler RN) sodium chloride 0.9 % flush 10 mL(Linked Group 1) 10 mL, Intravenous, Every 12 hours, First dose on Wed03/20/25 at 1950, Until Discontinued, Routine 2132 (Given - Provider: Stone Hopper) 0812 (Given - Provider: Sandy Moseley RN)1950 (Canceled Entry - Provider: Automatic Discharge Provider - Comment: Automatically canceled at discontinue of medication order) PRN Medication Order 03/19/2025 03/20/2025 03/21/2025 calcium carbonate (Tums) chewable tablet 500 mg 500 mg, Oral, Every 4 hours PRN, Starting on Wed03/20/25 at 1946, Until Wed03/21/25 at 2050, Routine, indigestion, heartburn cyclobenzaprine (Flexeril) tablet 5 mg 5 mg, Oral, Every 8 hours PRN, Starting on Wed03/21/25 at 1728, Until Wed03/21/25 at 2050, Routine, muscle spasms gi cocktail oral solution 30 mL 30 mL, Oral, 4 times daily PRN, 4 doses, Starting on Wed03/20/25 at 1946, Until Wed03/21/25 at 2050, Routine, cramping, abdominal pain HYDROmorphone (Dilaudid) injection 0.5 mg (CANCELED) 0.5 mg, Intravenous, Every 4 hours PRN, Starting on Wed03/20/25 at 1947, Until Wed03/21/25 at 46, Routine, severe pain 2057 (Given - Provider: Shannon Adler RN) HYDROmorphone (Dilaudid) injection 1 mg 1 mg, Intravenous, Every 3 hours PRN, Starting on Wed03/21/25 at 004, Until Wed03/21/25 at 2050, Routine, breakthrough pain 0106 (Given - Provid er: Stone Hopper)0810 (Given - Provider: Sandy Moseley, NIRUKA)1554 (Given - Provider: Sandy Moseley RN) HYDROmorphone (Dilaudid) tablet 2 mg 2 mg, Oral, Every 4 hours PRN, Starting on Wed03/20/25 at 194, Until Wed03/21/25 at 2050, Routine, moderate pain 2246 (Given - Provider: Stone Hopper) 0648 (Given - Provider: Stone Hopper)1228 (Given - Provider: Sandy Moseley RN) HYDROmorphone (Dilaudid) tablet 3 mg 3 mg, Oral, Every 4 hours PRN, Starting on Wed03/21/25 at 0047, Until Wed03/21/25 at 2050, Routine, severe pain ondansetron (Zofran) 4 MG/5ML solution 4 mg(Linked Group 2) 4 mg, Oral, Every 6 hours PRN, Starting on Wed03/20/25 at 194, Until Wed03/21/25 at 2050, Routine, nausea, vomiting ondansetron (Zofran) injection 4 mg(Linked Group 2) 4 mg, Intravenous, Every 6 hours PRN, Starting on Wed03/20/25 at 194, Until Wed03/21/25 at 2050, Routine, vomiting, nausea ondansetron ODT (Zofran-ODT) disintegrating tablet 4 mg(Linked Group 2) 4 mg, Oral, Every 6 hours PRN, Starting on Wed03/20/25 at 194, Until Wed03/21/25 at 2050, Routine, nausea, vomiting sodium chloride 0.9 % flush 10 mL(Linked Group 1) 10 mL, Intravenous, As needed, Starting on Wed03/20/25 at 1944, Until Wed03/21/25 at 2050, Routine, line care Linked Groups Order Group 1: Insert peripheral IV (COMPLETED) Once, On Wed03/20/25 at 194, For 1 occurrence And Saline lock IV (COMPLETED) Once, On Wed03/20/25 at 1944, For 1 occurrence And sodium chloride 0.9 % flush 10 mLJump to med 10 mL, Intravenous, Every 12 hours, First dose on Wed03/20/25 at 1950, Until Discontinued, Routine And sodium chloride 0.9 % flush 10 mLJump to med 10 mL, Intravenous, As needed, Starting on Wed03/20/25 at 1944, Until Wed03/21/25 at 2050, Routine, line care Group 2: ondansetron ODT (Zofran-ODT) disintegrating tablet 4 mgJump to med 4 mg, Oral, Every 6 hours PRN, Starting on Wed03/20/25 at 194, Until Wed03/21/25 at 2050, Routine, nausea, vomiting Or ondansetron (Zofran) injection 4 mgJump to med 4 mg, Intravenous, Every 6 hours PRN, Starting on Wed03/20/25 at 194, Until Wed03/21/25 at 2050, Routine, vomiting, nausea Or ondansetron (Zofran) 4 MG/5ML solution 4 mgJump to med 4 mg, Oral, Every 6 hours PRN, Starting on Wed03/20/25 at 194, Until Wed03/21/25 at 2050, Routine, nausea, vomiting documented in this encounter Additional Health Concerns Assessment Noted Time A fall risk assessment has been complete d for the patient 03/14/2025 9:07 AM EDT A Body Mass Index follow-up plan has been documented for the patient 03/21/2025 6:19 PM EDT documented as of this encounter Care Teams 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
--- OUTSIDE RECORDS SUMMARY | 2025-04-02 10:08 | XMS_ITS | Encounter Summary ---
Author Organization [place] [address] Care Team Providers Care Sales Account Director Name Role Phone Jan Sin MD Unavailable [phone] Macario Pryor MD Un[facility] Cr Resendez MD Primary Care Provider [phone] Encounter Details Date Type Department Care Team (Late st Contact Info) Description 12/22/2024 Results Follow-Up SEP Luis [address] [place] [address] Cr Resendez MD [address] [place] [address] [place] [address] BASIC METABOLIC PANEL Social History Tobacco Use [...] documented as of this encounter Care Teams Sales Account Director Relationship Specialty Start Date End Date Macario Pryor MD [address] [place] [address] [place] [address] PCP - Hematology/Oncology Internal Medicine-Medical Oncology 11/12/15 Cr Resendez MD [address] [place] [address] [place] [address] PCP - General Family Medicine 11/24/21 Jan Sin MD [address] [place] [address] [place] [address] Internal Medicine-Cardiovascul ar Disease 08/28/14 documented as of this encounter
--- OUTSIDE RECORDS SUMMARY | 2025-04-02 10:08 | XMS_ITS | Encounter Summary ---
Author Organization [place] [address] Care Team Providers Care Radio Maintainer Name Role Phone Jan Sin MD Unavailable [phone] Macario Pryor MD Unavailable Unavailabl e Cr Resendez MD Primary Care Provider [phone] Reason for Visit * Reason Comments Medication Refill Encounter Details Date Type Department Care Team (Late st Contact Info) Description 03/26/2025 Refill SEP Luis [facility] [place] [address] Cr Resendez MD [address] [place] [address] [address] [place] [id number] Medication Refill Social History Tobacco Use Types [...] documented as of this encounter Care Teams Radio Maintainer Relationship Specialty Start Date End Date Macario Pryor MD [address] [place] [address] [place] [id number] PCP - Hematology/Oncology Internal Medicine-Medical Oncology 11/12/15 Cr Resendez MD [address] [place] [address] [place] [id number] PCP - General Family Medicine 11/24/21 Jan Sin MD [address] [place] [address] [place] [id number] Internal Medicine-Cardiovascul ar Disease 08/28/14 documented as of this encounter
--- OUTSIDE RECORDS SUMMARY | 2025-04-02 10:08 | XMS_ITS | Encounter Summary ---
Author Organization [place] [address] Care Team Providers Care Care Attendant Name Role Phone Jan Sin MD Unavailable [phone] Macario Pryro MD Unavailable [facility] e Cr Resendez MD Primary Care Provider [phone] Reason for Visit * Reason Onset Date Comments Paperwork/forms 02/22/2025 Encounter Details Date Type Department Care Team (Late st Contact Info) Description 02/22/2025 Telephone SEP Luis [facility] [place] [address] Cr Resendez MD [address] [place] [address] [place] [address] Paperwork/forms Social History Tobacco Use Types [...] We have received paperwork from [employer] compliant [employer] , I spoke to the patient and his they stated they have never used [employer] , the phone number they are calling from is [phone] thefax number that is on the paperwork [phone] , this paperwork is not being filled [...] documented as of this encounter Care Teams Care Attendant Relationship Specialty Start Date End Date Macario Pryor MD [address] [place] [address] [place] [address] PCP - Hematology/Oncology Internal Medicine-Medical Oncology 11/12/15 Cr Resendez MD [address] [place] [address] [place] [id number] PCP - General Family Medicine 11/24/21 Jan Sin MD [address] [place] [address] [place] [address] Internal Medicine-Cardiovascul ar Disease 08/28/14 documented as of this encounter
--- OUTSIDE RECORDS SUMMARY | 2025-04-02 10:08 | XMS_ITS | Encounter Summary ---
Author Organization Healthcare Address [address] [place] [address] Care Team Providers Care Telemarketing Fundraiser Name Role Phone Isabella Saucedo ROAD CONTRACTOR Unavailable [phone] Jeannie Mcmillan RN Unavailable [phone] Ebony Shoemaker Unavailable [phone] Pcp, No Primary Care Provider Unavailabl e Reason for Referral * Consultation (Routine) - Authorized Specialty Diagnoses / Procedures Referred By Vicente alaniz Referred To Contact Hematology and Oncology Diagnoses Elevated alpha fetoprotein Liver tumor Isabella Saucedo APRN [address] [place] [address] Phone: tel: fax: Referral ID Status Reason Start Date Expiration Date Visits Requested Visits Authorized [id number] Authorized Specialty Services Required 02/20/2025 08/22/2026 1 1 Encounter Details Date Type Department Care Team (Late st Contact Info) Description 02/19/2025 Community [facility] [address] [place] [address] Isabella Saucedo APRN [address] [place] [address] Elevated alpha fetoprotein (Primary Dx); Liver tumor [...] system documented in this encounter Care Teams Telemarketing Fundraiser Relationship Specialty Start Date End Date Pcp, No [address] [place] [address] PCP - General Family Medicine 03/20/25 Isabella Saucedo APRN [facility] [facility] [address] [place] [address] Referring Physician 02/26/25 Jeannie Mcmillan, RN CH-TRANSPLANT ADMINISTRATION [address] [place] [address] Registered Nurse Transplant Surgery 03/08/25 [place] [address] Registered Nurse Transplant Surgery 03/08/25 documented as of this encounter
--- OUTSIDE RECORDS SUMMARY | 2025-04-02 10:08 | XMS_ITS | Encounter Summary ---
Author Organization [facility] Address [address] [place] [address] Care Team Providers Care Film Technician Name Role Phone Isabella Saucedo BURLAP MAN Unavailable [phone] Reason for Referral * Consultation (Routine) - Closed Specialty Diagnoses / Procedures Referred By Contac t Referred To Contact Transplant Diagnoses Elevated AFP Liver lesion Hepatic cirrhosis, unspecified hepatic cirrhosis type, unspecified whether ascites present (CMS/HCC) Isabella Saucedo APRN [address] [facility] [address] [place] [address] Phone: tel: fax: [facility] [address] [address] Phone: tel: fax: Referral ID Status Reason Start Date Expiration Date V isits Requested Visits Authorized [id number] Closed Specialty Services Required 03/06/2025 09/05/2026 1 1 Encounter Details Date Type Department Care Team (Late st Contact Info) Description 03/06/2025 Telephone [facility] [address] [address] Cici Ramírez [place] [phone] Social History Tobacco Use Types Packs/Day Years [...] LAB COAGULATION METHOD 03/14/2025 9:44 AM EDT [facility] INR 1.0 0.9 - 1.1 LAB COAGULATION METHOD 03/14/2025 9:44 AM EDT [facility] Blood Venous blood specimen / Unknown Venipuncture / Unknown 03/14/2025 8:38 AM EDT 03/14/2025 9:03 AM EDT Narrative [facility] - 03/14/2025 9:44 AM EDT OPTIMAL INR RANGES FOR PATIENT ON ORAL ANTICOAGULANT THERAPY Prevention of venous thromboembolism INR 2.0 to 3.0 In patients with heart disease: Atrial fibrillation INR 2.0 to 3.0 Valvular heart disease INR 2.0 to 3.0 Tissue heart valves INR 2.0 to 3.0 Mechanical prosthetic valves INR 2.5 to 3.5 Prevention of recurrent MT INR 2.5 to 3.5 Peter Do MD LAB BLOOD ORDERABLES Final Result [facility] [address] [place] [address] * (ABNORMAL) CBC w/o differential (03/14/2025 8:38 [...] Final Result [facility] [address] [place] [address] * (ABNORMAL) Comprehensive Metabolic Panel (03/14/2025 8:38 AM EDT) Glucose, Plasma 104(H) 74 - 99 mg/dL 03/14/2025 9:30 AM EDT [facility] BUN, Plasma 12 8 - 23 mg/dL 03/14/2025 9:30 AM EDT [facility] Creatinine, Plasma 0.80 0.70 - 1.20 mg/dL 03/14/2025 9:30 AM EDT [facility] BUN/Creatinine Ratio 15 03/14/2025 9:30 AM EDT [facility] Sodium, Plasma 142 136 - 145 mmol/L 03/14/2025 9:30 AM EDT [facility] Potassium, Plasma 3.8 3.6 - 4.9 mmol/L 03/14/2025 9:30 AM EDT [facility] Chloride, Plasma 102 97 - 107 mmol/L 03/14/2025 9:30 AM EDT [facility] CO2, Plasma 28 22 - 29 mmol/L 03/14/2025 9:30 AM EDT [facility] Anion Gap 12 6 - 16 mmol/L 03/14/2025 9:30 AM EDT [facility] Total Calcium, Plasma 9.8 8.9 - 10.2 mg/dL 03/14/2025 9:30 AM EDT [facility] Total Protein 8.0(H) 6.3 - 7.9 g/dL 03/14/2025 9:30 AM EDT [facility] Albumin, Plasma 4.2 3.5 - 5.2 g/dL 03/14/2025 9:30 AM EDT [facility] AST, Plasma 78(H) 10 - 50 U/L 03/14/2025 9:30 AM EDT [facility] ALT, Plasma 50 10 - 50 U/L 03/14/2025 9:30 AM EDT [facility] Alkaline Phosphatase, Plasma 210(H) 40 - 115 U/L 03/14/2025 9:30 AM EDT [facility] Total Bilirubin, Plasma 0.8 0.2 - 1.1 mg/dL 03/14/2025 9:30 AM EDT [facility] eGFRcr 97.6 mL/min/1.7 3m*2 03/14/2025 9:30 AM EDT [facility] Comment:Reported eGFRcr in m L/min/1.73m2 is based the CKD-EPI 2020 equation that does not use a race coefficient. Blood Venous blood specimen / Unknown Venipuncture / Unknown 03/14/2025 8:38 AM EDT 03/14/2025 9:03 AM EDT Peter Do MD LAB [place] [address] * (ABNORMAL) CEA, Serum (03/14/2025 8:38 AM [...] BLOOD ORDERABLES Final Result Performing Organization Address [facility] [place] [address] * Cancer Antigen, GI (CA 19.9) (03/14/2025 [...] ORDERABLES Final Result [facility] [address] [place] [address] * (ABNORMAL) Alpha Fetoprotein, Serum (03/14/2025 8:38 [...] Final Result [facility] [address] [place] [address] documented in this encounter Visit Diagnoses Diagnosis Liver lesion- Primary Other specified disorders of liver Elevated AFP Other nonspecific findings on examination of blood Hepatic cirrhosis, unspecified hepatic cirrhosis type, unspecified whether ascites present (CMS/HCC) Other abnormal tumor markers documented in this encounter Care Teams Film Technician Relationship Specialty Start Date End Date Isabella Saucedo APRN [address] [place] [address] Referring Physician 02/26/25 documented as of this encounter
--- OUTSIDE RECORDS SUMMARY | 2025-04-02 10:08 | XMS_ITS | Encounter Summary ---
Author Organization Healthcare Address [address] [place] [address] Care Team Providers Care Sliding Joint Maker Name Role Phone LewisIsabella Phong EMBROIDERY DESIGNER Unavailable [phone] Jeannie Mcmillan RN Unavailable [phone] Ebony Shoemaker Unavailable [phone] Pcp, No Primary Care Provider Unavailabl [...] documented as of this encounter Care Teams Sliding Joint Maker Relationship Specialty Start Date End Date Pcp, [address] [address] PCP - General Family Medicine 03/20/25 Isabella Saucedo APRN Replaced by [facility] [address] [place] [address] Referring Physician 02/26/25 Jeannie Mcmillan, RN [facility] [address] [place] [address] Registered Nurse Transplant Surgery 03/08/25 [place] [address] Registered Nurse Transplant Surgery 03/08/25 documented as of this encounter
--- OUTSIDE RECORDS SUMMARY | 2025-04-02 10:08 | XMS_ITS | Clinical Summary ---
Author Organization [facility] Address [facility] [place] [address] Care Team Providers Care Restaurant Team Member Name Role Phone Cr Resendez MD Primary Care Provider [phone] Source Comments This information has been disclosed [...] therelease of HIV test results or diagnoses. [id number] Allergies Active Allergy Reactions Criticality Noted [...] PM EDT Active naloxone (NARCAN) 4 mg/actuation [place] Apply 1 spray in one nostril if [...] by Redo CABG 6 mo later at [facility] with grafts 2010 Encounters Date Type Department Care Team Description 01/24/2025 Chart Note [facility] Interventional Pulmonary at [facility] [address] [place] [address] Elizabeth Tabor, RN Chart Note: Incidental Findings 01/23/2025 1:00 PM EDT Office Visit [facility] Orthopaedics at [facility] [address] [place] [address] Nayan Mayo MD Central cord syndrome, initial encounter ([facility]) (Primary Dx); Central cord syndrome, subsequent encounter ([facility]); Cervical spondylosis with myelopathy 01/23/2025 9:55 AM EDT - 01/23/2025 11:59 PM EDT Hospital Encounter [facility] [address] [place] [address] Nayan Mayo MD Central cord syndrome, subsequent encounter ([facility]) Discharge Disposition: Home or Self Care WITHOUT Home Care Services from Last 3 Months Social History Tobacco Use Types Packs/Day Years Used Date Smoking Tobacco: Some Days Cigarettes Passive Smoke Exposure: Current Tobacco Cessation:Ready to Q uit: Not Asked; Counseling Given: Not Answered Utilities Answer Date Recorded In the past 12 months has e [employer], gas, oil, or water [employer] threatened to shut off services in your [...] any time in the past 12 m [place], were you homeless or living in a fdc (including now)? Patient declined 12/07/2024 Sex and [...] (A AA) Screening 2023 Immunization: COVID-19 ( season) 2024 Immunization: Influenza (MyC kim) (#1) 2025 06/20/2024, 06/03/2023, 06/11/2021, Additional history exists Alcohol Misuse Screening 12/06/2025 12/06/2024 Renal Function/GFR 12/14/2025 12/14/2024, 0 12/13/2024, 12/12/2024, Additional history exists Immunization: Pneumococcal Completed 12/13, 05/08/2019, 07/18/2012 Medical Devices Implanted Type Area Natural Resources Professor Device Identifier Shelf Expiration Date Model / Serial / Lot Cage Spnl 6mm 8d Sm Eit Crv Intrbd Fs Strl Lf - [id number] Implanted:Qty: 1 on 12/11/2024 by Nayan Mayo MD at [facility] Main Cage N/A: Spine Cervical DEPUY SPINE 02/26/2026 [id number] / / Graft Bn Bn Fbr 1cc Algrf Frzdr Pliafx Prm - [id number] Implanted:Qty: 1 on 12/11/2024 by Nayan Mayo MD at [facility] Main Graft N/A: Spine Cervical LIFE NET 02/21/2028 [id number] 1 / [id number] / Icd ICD [employer] EP [employer] D233 / / Description:St Chava RA: [id number] 200M RV: [id number] NOT MR CONDITIONAL OF 12/07/2024 - 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 SCS Plate Bone [place] Titanium 14 Mm Prebent L12 Mm X W16 Mm X H2.5 Mm Spine Cervical Anterior 1 Level Nonsterile - [id number] Implanted:Qty: 1 on 12/11/2024 by Nayan Mayo MD at [facility] Main Plate N/A: Spine Cervical DEPUY SPINE 1867-08-0 12 / / Screw Bone Penbrook Titanium L16 Mm Od4 Mm Spine Cervical Anterior Variable Self Drill Nonsterile - [id number] Implanted:Qty: 4 on 12/11/2024 by Nayan Mayo MD at [facility] Main Screw N/A: Spine Cervical DEPUY SPINE 0 16 / / Procedures Procedure Name Priority Date/Time Associated Diagnosis Comments XR CERVICAL SPINE 2 OR 3-VIEWS Routine 01/23/2025 12:49 PM EDT Central cord syndrome, subsequent encounter ([facility]) RENAL FUNCTION PANEL W/EGFR Routine 12/14/2024 7:00 [...] 3-VIEWS INDICATION: Central cord syndrome, subsequent encounter ([facility]) TECHNIQUE: XR CERVICAL SPINE 2 OR 3-VIEWS AP and lateral radiographs were performed. COMPARISON: December 26, 2024 Procedure Note Jan Gordon MD - 01/23/2025 EXAM: XR CERVICAL SPINE 2 OR 3-VIEWS INDICATION: Central cord syndrome, subsequent encounter ([facility]) TECHNIQUE: XR CERVICAL SPINE 2 OR 3-VIEWS AP and lateral radiographs wereperformed. COMPARISON: December 26, 2024 FINDINGS/IMPRESSION: 1. ACDF at C3-C4. No hardware complication or change in alignment. 2. Multilevel degenerative disc disease of the mid to lower cervicalspine with no acute findings. Report Verified by: Jan Gordon MD at 01/23/2025 4:32 PM EDT us Nayan Mayo MD IMG DIAGNOSTIC IMAGING ORDERABLE S Final Result * (ABNORMAL) Renal Function Panel w/EGFR (12/14/2024 7:00 AM EDT) Sodium 136 133 - 146 mmol/L 12/14/2024 7:50 AM EDT [facility] Potassium 3.9 3.5 - 5.3 mmol/L 12/14/2024 7:50 AM EDT [facility] Chloride 102 98 - 110 mmol/L 12/14/2024 7:50 AM EDT [facility] CO2 27 21 - 33 mmol/L 12/14/2024 7:50 AM EDT [facility] Anion Gap 7 3 - 16 mmol/L 12/14/2024 7:50 AM EDT [facility] BUN 19 7 - 25 mg/dL 12/14/2024 7:50 AM EDT [facility] Creatinine 0.66 0.60 - 1.30 mg/dL 12/14/2024 7:50 AM EDT [facility] Glucose 126(H) 70 - 100 mg/dL 12/14/2024 7:50 AM EDT [facility] Calcium 8.3(L) 8.6 - 10.3 mg/dL 12/14/2024 7:50 AM EDT [facility] Phosphorus 2.7 2.1 - 4.5 mg/dL 12/14/2024 7:50 AM EDT [facility] Albumin 2.7(L) 3.5 - 5.7 g/dL 12/14/2024 7:50 AM EDT [facility] Osmolality, Calculated 286 278 - 305 mOsm/kg 12/14/2024 7:50 AM EDT [facility] EGFR >90 12/14/2024 7:50 AM EDT [facility] Comment: As of 2021, the estimated [...] EDT Kavitha Landry MD LAB BLOOD ORDERABLES [facility] Result [facility] [address] [place] [address], [facility] from Last 3 Months or Most Recently Relevant to Health Maintenance Insurance MEDICARE A AND B MEDICAID [address] [place] [address] [address] MEDICAID DENTAL Advance Directives For more information, please contact: [phone] * Full Code (Latest Code Status on File) Date Activated Date Inactivated Comments 12/07/2024 12:02 AM 12/14/2024 8:22 PM Care Teams Restaurant Team Member Relationship Specialty Start Date End Date Cr Resendez MD [address] [place] [address] [place] [address] PCP - General Family Medicine 12/07/24
--- OUTSIDE RECORDS SUMMARY | 2025-04-02 10:08 | XMS_ITS | Encounter Summary ---
Author Organization [place] [address] Care Team Providers Care Sterile Process Tech Name Role Phone Jan Sin MD Unavailable [phone] Macario Pryor MD Un[facility] Resendez MD Primary Care Provider [phone] Reason for Visit * Reason Onset Date Comments Other 12/20/2024 Katt sorin pc p to call her before pt appt on 12/21 Encounter Details Date Type Department Care Team (Late st Contact Info) Description 12/20/2024 Telephone SEP Luis RODRIGUEZ [address] [place] [address] Cr Resendez MD [address] [place] [address] [place] [address] Other (Katt needs [...] Date Author No 11/24/2021 10:05 AM Danny Mkceon MA documented in this encounter Miscellaneous Notes [...] documented as of this encounter Care Teams Sterile Process Tech Relationship Specialty Start Date End Date Macario Pryor MD [address] [place] [address] [place] [address] PCP - Hematology/Oncology Internal Medicine-Medical Oncology 11/12/15 Cr Resendez MD [address] [place] [address] [place] [address] PCP - General Family Medicine 11/24/21 Jan Sin MD [address] [place] [address] [place] [address] Internal Medicine-Cardiovascul ar Disease 08/28/14 documented as of this encounter
--- OUTSIDE RECORDS SUMMARY | 2025-04-02 10:08 | XMS_ITS | Encounter Summary ---
Author Organization Healthcare Address [address] [place] [address] Care Team Providers Care Mining Consultant Name Role Phone Isabella Saucedo Phong CLINICAL STUDY MANAGER Unavailable [phone] Jeannie Mcmillan RN Unavailable [phone] Ebony Shoemaker Unavailable [phone] Pcp, No Primary Care Provider Unavailabl e Encounter Details Date Type Department Care Team (Late st Contact Info) Description 03/20/2025 Orders Only External Location [address] [place] [address] Provider, External Social History Tobacco Use Types [...] documented as of this encounter Care Teams Mining Consultant Relationship Specialty Start Date End Date Pcp, No [address] [place] [address] PCP - General Family Medicine 03/20/25 Isabella Saucedo APRN [address] [place] [address] [address] [place] [address] Referring Physician 02/26/25 Jeannie Mcmillan, RN [facility] [address] [place] [address] Registered Nurse Transplant Surgery 03/08/25 [place] [address] Registered Nurse Transplant Surgery 03/08/25 documented as of this encounter
--- OUTSIDE RECORDS SUMMARY | 2025-04-02 10:08 | XMS_ITS | Clinical Summary ---
Author Organization [facility] Address [address] [place] [address] Phone Care Team Providers Care Development And Planning Engineer Name Role Phone Jan Sin MD Unavailable [phone] Macario Pryor MD Unavailable [facility] e Cr Resendez MD Primary Care Provider [phone] Allergies Active Allergy Reactions Criticality Noted Date [...] 25 Active nalOXone (NARCAN) 4 mg/actuation Nasl [place], Non-Aerosol 0.1 mL by Nasal route daily [...] the original. hillary stevens contracts signed 04/19/12 [facility]05/01/15 #[id number] [facility] 12/12/15 ,02/28/16 [id number],04/09/16 [id number], 11/27/16 uds 06/08/14,12/12/15, 10/02/16 Problem Noted Date [...] (12/01/2022): Added automatically from request for surgery [id number] Chronic bronchitis 11/26/2022 Assessment & Plan (12/21/2024 9:37 AM EDT): Orders: BASIC METABOLIC PANEL; Future Assessment & Plan (09/07/2024 10:49 AM EST): Orders: mucewwdwlzi-cutknnzxk-fbzlqxns (TRELEGY ELLIPTA) 100-62.5-25 mcg Inhl Disk with [...] by Redo CABG 6 mo later at [facility] with 4// patent grafts 2010 Unspecified essential [...] 07/04/2015 S/P coronary angiogram 08/31/201407/04 Overview (08/31/2014): [facility] 10/15/2009 four out of four grafts, [...] Type Department Care Team Description 03/26/[address] [place] [address] Cr Resendez MD Medication Refill 02/22/[address] [place] [address] Cr Resendez MD Paperwork/forms 02/20/[address] [place], [place] [address] Cr Resendez MD Medication Refill 02/12/[address] [place] [address] Cr Resendez MD Medication Refill 01/29/[address] [place] [address] Cr Resendez MD Medication Refill 01/25/[address] [place], [place] [address] Cr Resendez MD Other (insurance company called asking if office can watch for active patient verification form was rec'd. Please advise.) 01/18/[address] [place] [address] Cr Resendez MD Medication Refill 01/11/[address] [place], [place] [address] Rodney Resendez MD Medication Refill 01/08/2025 Orders Only [address] [place], [place] [address] Lorri Crespo APRN Right inguinal hernia (Primary Dx) 01/02/[address] [place] [address] Cr Resendez MD Orders (US needs to be faxed to [facility] they said they don't have it. ); Follow Up (US order) from Last 3 Months Immunizations Immunization Administration [...] snare polypectomy; Surgeon: Poppy Quintero MD; Location: ED ENDOSCOPY; Service: Endoscopy UPPER GASTROINTESTINAL ENDOSCOPY 10/30/2015 N/A ESOPHAGOGASTRODUODENOSC OPY with biopsies; Surgeon: Poppy Quintero MD; Location: [facility] END[facility]COPY; Service: Endoscopy CARDIAC SURGERY 08/30/2018 - 08/29/2019 pace maker CORONARY ANGIOPLASTY WITH STENT PLACEMENT 01/04/2024 [facility] NECK SURGERY 12/06/2024 [facility] Medical History Medical History Date Comments COPD (chronic obstructive pu lmonary disease) ([facility]) Shortness of breath Blood circulation, collateral fe et and hands get cold since cabg CAD (coronary artery disease) Hypertension [place] (myocardial infarction) ([facility]) 4 times Arthritis Headache(784.0) Neuromuscular disorder (HCC) lennox k and left leg Other disorders [...] years 1-dose series) 2018 COVID-19 Vaccine ( - season) 2024 Wellness Exam Medicare 12/14/2024 12/14/2023, [...] Cheng MD Medical Devices Implanted Type Area Senior Engineering Tech Device Identifier Shelf Expiration Date Model / Serial / Lot [employer] Vigilant ICD D233 / / [employer] Lead Lead [id number] / / St. [...] contact the office of the ordering clinician. [email or web address] Narrative 11/23/2024 12:[address] LUNG CANCER SCREENING LOW DOSE 11/23/2024 11:21 AM CLINICAL HISTORY: Asymptomatic patient meeting NCCN high risk criteria for lung screening. Z12.2-Encounter for screening for malignant neoplasm of respiratory quvwfu-ZJA-69-CM Z87.891-Personal history of nicotine sidkfbcker-IYP-57-CM COMPARISON: CT chest 09/08/2023. PROCEDURE COMMENTS: Noncontrast, low-dose, multidetector CT chest per standard department protocol. Interactive 3-D postprocessing done by the reviewing physician on a [employer] workstation, using Maximum intensity projections (MIPS) and [employer] LUNG CAD for improved lesion detection. Salazar [...] Z12.2-Encounter for screening for malignant neoplasm ofrespiratory ubbvxl-JCW-78-CM Z87.891-Personal history of nicotine awttazlvzk-JOI-60-CM COMPARISON: CT chest 09/08/2023. PROCEDURE COMMENTS: Noncontrast, low-dose, multidetector CT chest perstandard department protocol. Interactive 3-D postprocessing done by thereviewing physician on a [employer] workstation, using Maximum intensity projections(MIPS) and [employer] LUNG CAD for improved lesion detection. Salazar images archived Passado. Automated exposure control for dose reduction was [...] please contactthe office of the ordering clinician. [email or web address] us Cr Resendez MD IMG CT ORDERABLES Final [...] CLINICAL HISTORY: Z13.6-Encounter for screening for cardiovascular eydculcbb-BZG-48-CM. COMPARISON: CT abdomen pelvis from 09/07/2023 PROCEDURE COMMENTS: Routine sonographic evaluation of the abdominal aorta with help desk representative images sent to PACS along with teller manager notes. FINDINGS: The abdominal aorta is normal in caliber. Maximum transverse diameter is 2.4 cm. Atherosclerotic change in the aorta and iliac vessels noted unchanged from the recent CT Procedure Note Cr Ramachandran MD - 12/16/2023 US AAA SCREENING EXAM MEDICARE, 12/16/2023 9:55 AM CLINICAL HISTORY: Z13.6-Encounter for screening for cardiovascular dpkfivfdo-LZW-02-CM. COMPARISON: CT abdomen pelvis from 09/07/2023 PROCEDURE COMMENTS: Routine sonographic evaluation of the abdominal aortawith help desk representative images sent to PACS along with teller manager notes. FINDINGS: The abdominal aorta is normal [...] of the ordering clinician. Cr Resendez MD [facility] ORDERABLES Final Result * COLONOSCOPY (01/13/2023 1:07 [...] Pena MD Performing Provider Raymond Harris RN Oil Field Pumper Gurvinder Garner MD Anesthesiologist Mary Jo Romero [...] e Non-Reacti ve 11/24/2021 3:20 PM EDT [employer] Blood VENOUS BLOOD / Unknown Venipuncture / Unknown 11/24/2021 10:38 AM EDT 11/24/2021 10:43 AM EDT us Cr Resendez MD HEMATOLOGY ORDERABLES Final Re sult [employer] [address] [facility] , [place] [address] from Last 3 Months or Most Recently Relevant to Health Maintenance Insurance [place]ICARE [place] PART A AND B [place]ID [place] PART [place] [address] MEDICAID [place] Care Teams Development And Planning Engineer Relationship Specialty Start Date End Date Macario Pryor MD [address] [place] [address] [place] [address] PCP - Hematology/Oncology Internal Medicine-Medical Oncology 11/12/15 Cr Resendez MD [address] [place] [address] [place] [address] PCP - General Family Medicine 11/24/21 Jna Sin MD [address] [place] [address] [place] [address] Internal Medicine-Cardiovascul ar Disease 08/28/14
--- OUTSIDE RECORDS SUMMARY | 2025-04-02 10:08 | XMS_ITS | Encounter Summary ---
Author Organization [place] [address] Care Team Providers Care Bag Bundler Name Role Phone Jan Sin MD Unavailable [phone] Macario Pryor MD Un[facility] Cr Resendez MD Primary Care Provider [phone] Reason for Visit * Reason Onset Date Comments Orders 01/02/2025 US needs to be f axed to [facility] they said they don't have it. Follow Up 01/02/2025 US order Encounter Details Date Type Department Care Team (Late st Contact Info) Description 01/02/2025 Telephone ABDULLAHI [place] [facility] [place] [address] Cr Resendez MD [address] [place] [address] [place] [address] Orders (US needs to be faxed to [facility] they said they don't have [...] EDT No auth required will fax to [facility] * Telephone Encounter - Cr Resendez MD - 01/02/2025 11:16 AM EDT Please fax the imaging order for the ultrasound to [facility] * Telephone Encounter - Veronica Rey MA - 01/02/2025 11:08 AM EDT Select the most appropriate reason for this telephone message: Follow Up Follow Up Who is Calling:Other , Ashley What is the caller following up on (make sure to reference any prior documentation/encounter):Ashley states she just spoke with [facility] & they told her authorization needs to [...] (Diagnosis): US needs to be faxed to [facility] they said they don't have it. Why is this encounter being sent: Other: [facility] in [place] needs this order What types of radiology orders are being requested: Other: US Is patient waiting at lab/hospital/facility: No If non-[facility], where should the order be faxed (include fax number): [facility] Upcoming PCP appointment date: none [...] documented as of this encounter Care Teams Bag Bundler Relationship Specialty Start Date End Date Macario Pryor MD [address] [place] [address] [place] [address] PCP - Hematology/Oncology Internal Medicine-Medical Oncology 11/12/15 Cr Resendez MD [address] [place] [address] [place] [address] PCP - General Family Medicine 11/24/21 Jan Sin MD [address] [place] [address] [place] [address] Internal Medicine-Cardiovascul ar Disease 08/28/14 documented as of this encounter
--- OUTSIDE RECORDS SUMMARY | 2025-04-02 10:08 | XMS_ITS | Encounter Summary ---
Author Organization Healthcare Address [address] [place] [address] Care Team Providers Care Chart Picker Name Role Phone Isabella Saucedo Phong BOIL OFF MACHINE OPERATOR CLOTH Unavailable [phone] Jeannie Mcmillan RN Unavailable [phone] Ebony Shoemaker Unavailable [phone] Pcp, No Primary Care Provider Unavailabl e Encounter Details Date Type Department Care Team (Late st Contact Info) Description 03/20/2025 Orders Only External Location [address] [place] [address] Provider, External Social History Tobacco Use Types [...] documented as of this encounter Care Teams Chart Picker Relationship Specialty Start Date End Date Pcp, No [address] [place] [address] PCP - General Family Medicine 03/20/25 Isabella Saucedo APRN [address] [place] [address] [address] [place] [address] Referring Physician 02/26/25 Jeannie Mcmillan, RN CH[facility]PLANT ADMINISTRATION [address] [place] [address] Registered Nurse Transplant Surgery 03/08/25 [place] [address] Registered Nurse Transplant Surgery 03/08/25 documented as of this encounter
--- OUTSIDE RECORDS SUMMARY | 2025-04-02 10:08 | XMS_ITS | Encounter Summary ---
Author Organization Healthcare Address [address] [place] [address] Care Team Providers Care Renewable Energy Engineer Name Role Phone Isabella Saucedo INTEGRITY CONSULTANT Unavailable [phone] Jeannie Mcmillan RN Unavailable [phone] Ebony Shoemaker Unavailable [phone] Pcp, No Primary Care Provider Unavailabl [...] whether ascites present (CMS/HCC) Isabella Saucedo APRN [facility] [address] [place] [address] Phone: tel: fax: Referral ID Status Reason Start Date Expiration Date Visits Requested Visits Authorized [id number] Authorized Specialty Services Required 02/26/[phone] Encounter Details Date Type Department Care Team (Late st Contact Info) Description 02/26/2025 [facility] [address] [place] [address] Isabella Saucedo APRN [address] [place] [address] [place] [address] Invasion of liver, gallbladder, pancreas, ipsilateral branch [...] (CMS/HCC) documented in this encounter Care Teams Renewable Energy Engineer Relationship Specialty Start Date End Date Pcp, No [address] [place] [address] PCP - General Family Medicine 03/20/25 Isabella Saucedo APRN [address] [facility] [address] [place] [address] Referring Physician 02/26/25 Jeannie Mcmillan, RN CH-TRANSPLANT ADMINISTRATION [address] [place] [address] Registered Nurse Transplant Surgery 03/08/25 [place] [address] Registered Nurse Transplant Surgery 03/08/25 documented as of this encounter
--- OUTSIDE RECORDS SUMMARY | 2025-04-02 10:08 | XMS_ITS | Encounter Summary ---
Author Organization [facility] Address [address] [place] [address] Care Team Providers Care Water Use Inspector Name Role Phone Isabella Saucedo SUPPLY CHAIN ASSOCIATE Unavailable [phone] Reason for Referral * Consultation (Routine) - Pending Review Specialty Diagnoses / Procedures Referred By Contac t Referred To Contact Transplant Diagnoses End-stage liver disease (CMS/HCC) Haroon Cannon MD [address] [address] Phone: tel: fax: [facility] [address] [address] Phone: tel: fax: Referral ID Status Reason Start Date Expiration Date Visits Requested Visits Authorized [id number] Pending Review Specialty Services Required 03/06/2025 09/05/2026 1 1 Reason for Visit * Reason Comments Appointment Encounter Details Date Type Department Care Team (Late st Contact Info) Description 03/06/[address] [facility] [address] [address] [place] [address] Appointment Social History Tobacco Use [...] name and contact information. Invite sent to [facility] via text message. Called referring providers office, [...] disease documented in this encounter Care Teams Water Use Inspector Relationship Specialty Start Date End Date Isabella Saucedo APRN [address] [place] [address] [place] [address] Referring Physician 02/26/25 documented as of this encounter
--- OUTSIDE RECORDS SUMMARY | 2025-04-02 10:08 | XMS_ITS | Encounter Summary ---
Author Organization [place] [address] Care Team Providers Care Awning Hanger Supervisor Name Role Phone Jan Sin MD Unavailable [phone] Macario Pryor MD Unavailable Unavailabl e Cr Resendez MD Primary Care Provider [phone] Reason for Visit * Reason Comments Medication Refill Encounter Details Date Type Department Care Team (Late st Contact Info) Description 02/20/2025 Refill SEP Luis [facility] [place] [address] Cr Resendez MD [address] [place] [address] [address] [place] [id number] Medication Refill Social History Tobacco Use Types [...] documented as of this encounter Care Teams Awning Hanger Supervisor Relationship Specialty Start Date End Date Macario Pryor MD [address] [place] [address] [place] [address] PCP - Hematology/Oncology Internal Medicine-Medical Oncology 11/12/15 Cr Resendez MD [address] [place] [address] [place] [address] PCP - General Family Medicine 11/24/21 Jan Sin MD [address] [place] [address] [place] [address] Internal Medicine-Cardiovascul ar Disease 08/28/14 documented as of this encounter
--- OUTSIDE RECORDS SUMMARY | 2025-04-02 10:08 | XMS_ITS | Encounter Summary ---
Author Organization [facility] Address [address] [place] [address] Care Team Providers Care Live Ammunition Inspector Name Role Phone Cr Resendez MD Primary Care Provider [phone] Source Comments This information has been disclosed [...] release of HIV test results or diagnoses. [id number] Encounter Details Date Type Department Care Team (Late st Contact Info) Description 01/24/2025 Chart Note [facility] Interventional Pulmonary at [address] [address] Elizabeth Tabor, RN Chart Note: Incidental Findings Social History Tobacco Use Types Packs/Day Years Used Date Smoking Tobacco: Some Days Cigarettes Passive Smoke Exposure: Current Utilities Answer Date Recorded In the past 12 months has [employer], gas, oil, or water company threatened to [...] were you homeless or living in a [facility] (including now)? Patient declined 12/07/2024 Sex and [...] *Patient is in Lung Screening program at [facility], however this finding was not on most recentCT Lung Screening. Elizabeth Tabor RN Lung Nodule Coordinator Interventional Pulmonology [phone] 01/24/2025 12:04 PM * Elizabeth Tabor RN - 01/24/2025 12:04 PM EDT Call made to follow up on recent CT scan showing lung nodules. Explained recommendations and followup based on Fleischner Guidelines, and radiology read. - Patient plans to follow up with PCP closer to home. I explained the lung screening scans from [facility] and someone should compare scans. Pt had questions about Hernia Surgery, which I could not find any contact information for him (he said his has it anyway). - All questions answered. Pt very polite and appreciative. Elizabeth Tabor RN Lung Nodule Clinic Navigator [phone] documented in this encounter Plan of Treatment Not on file documented as of this encounter Visit Diagnoses Not on filedocumented in this encounter Care Teams Live Ammunition Inspector Relationship Specialty Start Date End Date Cr Resendez MD [address] [place] [address] [place] [address] PCP - General Family Medicine 12/07/24 documented as of this encounter
--- OUTSIDE RECORDS SUMMARY | 2025-04-02 10:08 | XMS_ITS | Clinical Summary ---
Author Organization Healthcare Address [address] [place] [address] Care Team Providers Care Referral Rn Name Role Phone LewisBereniceIsabella J COMMUNITY SERVICE WORKER Unavailable [phone] Jeannie Mcmillan RN Unavailable Ebony Shoemaker Unavailable [phone] Pcp, No Primary Care Provider Unavailabl [...] EDT Hospital Encounter [facility] Inpatient [address] [place] [id number] Clotilde Saleh MD Santos, Patricia Therese A, MD Sayers, Anne E, MD Epigastric pain (Primary Dx); Hepatocellular carcinoma; Alcoholic cirrhosis of liver without ascites (CMS/HCC) Discharge Disposition: Home or Self Care 03/20/2025 Travel 03/20/2025 Orders Only External Location [address] [place] [address] Provider, External 03/20/2025 Orders Only External Location [address] [place] [id number] Provider, External 03/20/2025 Orders Only External Location [address] [place] [address] Provider, External 03/16/2025 Telephone [facility] [place] [id number] [phone] Ebony Shoemaker Txp Surgical Follow-up (Ernestina: Tumor Board Discussion 03/16/25) 03/14/2025 11:20 AM EDT - 03/14/2025 11:59 PM EDT Hospital Encounter [facility] [address] [place] [address] Elevated AFP; Liver lesion; Hepatic cirrhosis, unspecified hepatic cirrhosis type, unspecified whether ascites present (CMS/HCC) Discharge Disposition: Home or Self Care 03/14/2025 10:00 AM EDT Office Visit [facility] [place] [address] [phone] Peter oD MD HCC (hepatocellular carcinoma) (Primary Dx) 03/14/2025 Orders Only [facility] [place] [address] [phone] Ebony Shoemaker Liver lesion (Primary Dx); Elevated AFP; Hepatic cirrhosis, unspecified hepatic cirrhosis type, unspecified whether ascites present (CMS/HCC) 03/14/2025 Travel 03/10/2025 Travel 03/07/2025 Travel 03/06/2025 Telephone [facility] [address] [place] [phone] Desiree Cici Dyer 03/06/2025 Telephone [facility] [address] [place] [phone] Angelita Reeves Appointment 03/05/2025 Telephone [facility] [address] [place] [phone] Angelita Reeves Appointment 02/26/2025 Telephone [facility] [address] [place] [phone] Angelita Reeves Referral - Liver Txp 02/26/2025 Community Orders Community Practice [address] [place] [address] Isabella Saucedo APRN Invasion of liver, gallbladder, pancreas, ipsilateral branch of portal vein, 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) (Primary Dx); Elevated alpha fetoprotein; Hepatic cirrhosis, unspecified hepatic cirrhosis type, unspecified whether ascites present (CMS/HCC) 02/19/2025 Community Orders Community Practice [address] [place] [address] Isabella Saucedo APRN Elevated alpha fetoprotein (Primary Dx); Liver tumor 02/09/2025 11:02 AM EDT - 02/09/2025 11:59 PM EDT Hospital Encounter [facility] [address] [place] [address] Abnormality of alphafetoprotein; Other specified abnormal findings of blood chemistry; Unspecified cirrhosis of liver (CMS/HCC) Discharge Disposition: Home or Self Care 02/09/2025 Travel 01/12/2025 Orders Only External Location [address] [place] [address] Provider, External 01/12/2025 Orders Only External Location [address] [place] [address] Provider, External 01/04/2025 Orders Only External Location [address] [place] [address] Provider, External from Last 3 Months Social [...] Health Maintenance Due Date Last Done Comments [facility]-/Child/Adol SDOH Screenings 1960 [id number] Vaccine (#1) 1963 [facility]- SDOH Screenings 1976 [...] LAB COAGULATION METHOD 03/21/2025 7:00 AM EDT [facility] INR 1.1 0.9 - 1.1 LAB COAGULATION METHOD 03/21/2025 7:00 AM EDT [facility] Blood Venous blood specimen / Unknown Venipuncture / Unknown 03/21/2025 6:32 AM EDT 03/21/2025 6:43 AM EDT Narrative [facility] - 03/21/2025 7:00 AM EDT OPTIMAL INR RANGES FOR PATIENT ON ORAL ANTICOAGULANT THERAPY Prevention of venous thromboembolism INR 2.0 to 3.0 In patients with heart disease: Atrial fibrillation INR 2.0 to 3.0 Valvular heart disease INR 2.0 to 3.0 Tissue heart valves INR 2.0 to 3.0 Mechanical prosthetic valves INR 2.5 to 3.5 Prevention of recurrent OK INR 2.5 to 3.5 us Leelee Tripathi MD LAB BLOOD ORDERABLE S Final Result [facility] [address] [place] [address] * (ABNORMAL) CBC and Differential (03/21/2025 6:32 AM EDT) Only the most recent of2 resultswithin the time period is included. WBC Count 6.12 3.70 - 10.30 10*3/uL LAB HEMATOLOGY METHOD 03/21/2025 6:58 AM EDT [facility] RBC Count 4.62 4.60 - 6.10 10*6/uL LAB HEMATOLOGY METHOD 03/21/2025 6:58 AM EDT [facility] HGB 15.2 13.7 - 17.5 g/dL LAB HEMATOLOGY METHOD 03/21/2025 6:58 AM EDT [facility] HCT 45.4 40.0 - 51.0 % LAB HEMATOLOGY METHOD 03/21/2025 6:58 AM EDT [facility] Platelet Count 82(L) 155 - 369 10*3/uL LAB HEMATOLOGY METHOD 03/21/2025 6:58 AM EDT [facility] MCV 98 79 - 98 fL LAB HEMATOLOGY METHOD 03/21/2025 6:58 AM EDT [facility] MCH 32.9(H) 26.0 - 32.0 pg LAB HEMATOLOGY METHOD 03/21/2025 6:58 AM EDT [facility] MCHC 33.5 30.7 - 35.5 g/dL LAB HEMATOLOGY METHOD 03/21/2025 6:58 AM EDT [facility] RDW 16.8(H) 11.5 - 14.5 % LAB HEMATOLOGY METHOD 03/21/2025 6:58 AM EDT [facility] MPV 12.2 8.8 - 12.5 fL LAB HEMATOLOGY METHOD 03/21/2025 6:58 AM EDT [facility] nRBC 0.0 <=0.0 per 100 WBCs LAB HEMATOLOGY METHOD 03/21/2025 6:58 AM EDT [facility] Differential Type Automated LAB HEMATOLOGY METHOD 03/21/2025 6:58 AM EDT [facility] Neutrophils % 55 % LAB HEMATOLOGY METHOD 03/21/2025 6:58 AM EDT [facility] Lymphocytes % 24 % LAB HEMATOLOGY METHOD 03/21/2025 6:58 AM EDT [facility] Monocytes % 17 % LAB HEMATOLOGY METHOD 03/21/2025 6:58 AM EDT [facility] Eosinophils % 2 % LAB HEMATOLOGY METHOD 03/21/2025 6:58 AM EDT [facility] Basophils % 1 % LAB HEMATOLOGY METHOD 03/21/2025 6:58 AM EDT [facility] Immature Granulocytes % 1 % LAB HEMATOLOGY METHOD 03/21/2025 6:58 AM EDT [facility] Neutrophils Absolute 3.46 1.60 - 6.10 10*3/uL LAB HEMATOLOGY METHOD 03/21/2025 6:58 AM EDT [facility] Lymphocytes Absolute 1.45 1.20 - 3.90 10*3/uL LAB HEMATOLOGY METHOD 03/21/2025 6:58 AM EDT [facility] Monocytes Absolute 1.03(H) 0.30 - 0.90 10*3/uL LAB HEMATOLOGY METHOD 03/21/2025 6:58 AM EDT [facility] Eosinophils Absolute 0.11 0.00 - 0.50 10*3/uL LAB HEMATOLOGY METHOD 03/21/2025 6:58 AM EDT [facility] Basophils Absolute 0.04 0.00 - 0.10 10*3/uL LAB HEMATOLOGY METHOD 03/21/2025 6:58 AM EDT [facility] Immature Granulocytes Absolute 0.03 0.00 - 0.06 10*3/uL LAB HEMATOLOGY METHOD 03/21/2025 6:58 AM EDT [facility] Blood Venous blood specimen / Unknown Venipuncture / Unknown 03/21/2025 6:32 AM EDT 03/21/2025 6:43 AM EDT Narrative [facility] - 03/21/2025 6:58 AM EDT Therapeutic decision making should be based on absolute values, rather than percentages. us Leelee Tripathi MD LAB BLOOD ORDERABLE S Final Result [facility] [address] [place] [address] * (ABNORMAL) Comprehensive metabolic panel (03/21/2025 6:32 AM EDT) Only the most recent of3 resultswithin the time period is included. Glucose, Plasma 107(H) 74 - 99 mg/dL 03/21/2025 7:11 AM EDT [facility] BUN, Plasma 12 8 - 23 mg/dL 03/21/2025 7:11 AM EDT [facility] Creatinine, Plasma 0.77 0.70 - 1.20 mg/dL 03/21/2025 7:11 AM EDT [facility] BUN/Creatinine Ratio 16 03/21/2025 7:11 AM EDT [facility] Sodium, Plasma 139 136 - 145 mmol/L 03/21/2025 7:11 AM EDT [facility] Potassium, Plasma 4.6 3.6 - 4.9 mmol/L 03/21/2025 7:11 AM EDT [facility] Comment:Hemolyzed, result ma y be falsely increased. Chloride, Plasma 105 97 - 107 mmol/L 03/21/2025 7:11 AM EDT [facility] CO2, Plasma 23 22 - 29 mmol/L 03/21/2025 7:11 AM EDT [facility] Anion Gap 11 6 - 16 mmol/L 03/21/2025 7:11 AM EDT [facility] Total Calcium, Plasma 9.4 8.9 - 10.2 mg/dL 03/21/2025 7:11 AM EDT [facility] Total Protein 7.0 6.3 - 7.9 g/dL 03/21/2025 7:11 AM EDT [facility] Albumin, Plasma 3.6 3.5 - 5.2 g/dL 03/21/2025 7:11 AM EDT [facility] AST, Plasma 621(H) 10 - 50 U/L 03/21/2025 7:11 AM EDT [facility] Comment:Hemolyzed, result ma y be falsely increased. ALT, Plasma 48 10 - 50 U/L 03/21/2025 7:11 AM EDT [facility] Alkaline Phosphatase, Plasma 232(H) 40 - 115 U/L 03/21/2025 7:11 AM EDT [facility] Total Bilirubin, Plasma 0.6 0.2 - 1.1 mg/dL 03/21/2025 7:11 AM EDT [facility] eGFRcr 98.7 mL/min/1.7 3m*2 03/21/2025 7:11 AM EDT [facility] Comment:Reported eGFRcr in m L/min/1.73m2 is based the CKD-EPI 2020 equation that does not use a race coefficient. Blood Venous blood specimen / Unknown Venipuncture / Unknown 03/21/2025 6:32 AM EDT 03/21/2025 6:43 AM EDT us Leelee Tripathi MD LAB BLOOD ORDERABLE S Final Result [facility] [address] [place] [address] * Troponin T, High Sensitivity, 2 Hour, Plasma (03/20/2025 10:54 PM EDT) Troponin T, High Sensitivity, 2 Hour 10 <19 ng/L 03/20/2025 11:31 PM EDT [facility] Blood Venous blood specimen / Unknown Venipuncture / Unknown 03/20/2025 10:54 PM EDT 03/20/2025 11:04 PM EDT Leelee Tripathi MD LAB BLOOD ORDERABLE S Final Result Performing Organization Address City/[facility] Co de Phone Number [facility] [address] [place] [address] * ED HIV 1/2 Antibody/Antigen Screen w/Reflex to HIV 1/2 Differentiation (03/20/2025 6:51 PM EDT) [facility] HIV 1 & 2 Antibody/Antigen [...] ORDERABLES Courtney l Result Performing Organization Address City/[facility] Co de Phone Number [facility] [address] [place] [address] * Troponin now and 120 min (03/20/2025 6:51 PM EDT) [facility] Troponin T, High Sensitivity, 0 Hour 9 <19 ng/L 03/20/2025 7:35 PM EDT [facility] Blood Venous blood specimen / Unknown Venipuncture / Unknown 03/20/2025 6:51 PM EDT 03/20/2025 7:09 PM EDT Dedra Driscoll [employer] PA LAB BLOOD ORDERABLES Courtney l Result Performing Organization Address City/[facility] Co de Phone Number [facility] [address] [place] [address] * Lactic acid, venous (03/20/2025 6:51 PM EDT) [facility] Lactate, Venous, Whole Blood 1.7 0.5 - 2.2 mmol/L LAB HEMATOLOGY METHOD 03/20/2025 7:12 PM EDT [facility] Blood Venous blood specimen / Unknown Venipuncture / Unknown 03/20/2025 6:51 PM EDT 03/20/2025 7:08 PM EDT Result [facility] Dedra A Rebsamen PA LAB BLOOD ORDERABLES Courtney l Result [facility] [address] [place] [address] * Hepatitis C Antibody - ED (03/20/2025 6:51 PM EDT) Hepatitis C Antibody Negative Negative 03/20/2025 8:01 PM EDT [facility] Blood Venous blood specimen / Unknown Venipuncture / Unknown 03/20/2025 6:51 PM EDT 03/20/2025 7:09 PM EDT Dedra A Rebsamen PA LAB BLOOD ORDERABLES Courtney l Result Performing Organization Address City/[facility]/ZIP Co de Phone Number [facility] [address] [place] [address] * APTT (03/20/2025 6:51 PM EDT) Pathologist [facility] aPTT 31 25 - 35 sec 03/20/2025 7:25 PM EDT [facility] Blood Venous blood specimen / Unknown Venipuncture / Unknown 03/20/2025 6:51 PM EDT 03/20/2025 7:08 PM EDT Result [facility] Dedra A Rebsamen PA LAB BLOOD ORDERABLES Courtney l Result Performing Organization Address City/[facility]/ZIP Co de Phone Number [facility] [address] [place] [address] * C-Reactive protein (03/20/2025 6:51 PM EDT) Pathologist [facility] CRP, Plasma 5.2 <=8.0 mg/L 03/20/2025 7:35 PM EDT [facility] Blood Venous blood specimen / Unknown Venipuncture / Unknown 03/20/2025 6:51 PM EDT 03/20/2025 7:09 PM EDT Narrative [facility] - 03/20/2025 7:35 PM EDT This CRP test is appropriate for assessment of infection, systemic inflammation and/or tissue injury. To assess cardiovascular disease risk order high sensitivity CRP (CRPH). us Dedra [employer] LAB BLOOD ORDERABLES Courtney l Result Performing Organization Address [facility] Co de Phone Number [facility] [address] [place] [address] * Lipase (03/20/2025 6:51 PM EDT) Lipase, Plasma 19 19 - 63 U/L 03/20/2025 7:35 PM EDT [facility] Blood Venous blood specimen / Unknown Venipuncture / Unknown 03/20/2025 6:51 PM EDT 03/20/2025 7:09 PM EDT us Dedra A [place] LAB BLOOD ORDERABLES Courtney l Result Performing Organization Address [facility] Phone Number [facility] [address] [place] [address] * EKG now - STAT (adult) (03/20/2025 5:31 PM EDT) EKG DIAGNOSIS CLASS Abnormal MUSE ECG Ventricular Rate 60 BPM MUSE ECG Atrial Rate 60 BPM MUSE ECG OH Interval 176 ms MUSE ECG QRSD Interval 86 ms MUSE ECG QT Interval 422 ms MUSE ECG QTC Interval 422 ms MUSE ECG P Gratiot 53 degrees MUSE ECG R Gr[place] -37 degrees MUSE ECG T Wave Gr[place]iot 80 degrees MUSE ECG Diagnosis Atrial-paced rhythm MUSE ECG Diagnosis Left axis deviation MUSE ECG Diagnosis T wave abnormality, consider anterior ischemia MUSE ECG Diagnosis Abnormal ECG MUSE ECG Diagnosis MUSE ECG Diagnosis Confirmed by J Carlos Campbell ([id number]) on 03/20/2025 5:41:58 PM MUSE ECG 03/20/2025 5:31 PM EDT 03/20/2025 5:41 PM EDT us Dedra A [employer] PA ECG ORDERABLES Final Res ult Performing Organization Address [facility] Co de Phone Number MUSE ECG * [...] 1,098.0(H) <10.0 ng/mL 03/14/2025 10:22 AM EDT [facility] Blood Venous blood specimen / Unknown Venipuncture / Unknown 03/14/2025 8:38 AM EDT 03/14/2025 9:03 AM EDT Narrative [facility] - 03/14/2025 10:22 AM EDT Performed by Ricky electrochemiluminescent immunoassay which is traceable to the 1st [facility] IRP WHO Reference standard 72/255. Results obtained with different test methods or kits cannot be used interchangeably. Peter Do MD LAB BLOOD ORDERABLES Final Result Performing Organization Address [facility]/ZIP Co de Phone Number [facility] [address] [place] [address] * Cancer Antigen, GI (CA 19.9) (03/14/2025 8:38 AM EDT) CA 19.9 26.5 <36 U/mL 03/14/2025 10:22 AM EDT [facility] Blood Venous blood specimen / Unknown Venipuncture / Unknown 03/14/2025 8:38 AM EDT 03/14/2025 9:03 AM EDT Narrative [facility] - 03/14/2025 10:22 AM EDT Performed by Ricky electrochemiluminescent immunoassay. Results obtained with different test methods or kits cannot be used interchangeably. Peter Do MD LAB BLOOD ORDERABLES Final Result Performing Organization Address [facility] de Phone Number [facility] [address] [place] [address] * (ABNORMAL) CBC w/o differential (03/14/2025 8:38 AM EDT) WBC Count 5.56 3.70 - 10.30 10*3/uL LAB HEMATOLOGY METHOD 03/14/2025 9:51 AM EDT [facility] RBC Count 4.98 4.60 - 6.10 10*6/uL LAB HEMATOLOGY METHOD 03/14/2025 9:51 AM EDT [facility] HGB 15.9 13.7 - 17.5 g/dL LAB HEMATOLOGY METHOD 03/14/2025 9:51 AM EDT [facility] HCT 48.7 40.0 - 51.0 % LAB HEMATOLOGY METHOD 03/14/2025 9:51 AM EDT [facility] Platelet Count 96(L) 155 - 369 10*3/uL LAB HEMATOLOGY METHOD 03/14/2025 9:51 AM EDT [facility] MCV 98 79 - 98 fL LAB HEMATOLOGY METHOD 03/14/2025 9:51 AM EDT [facility] MCH 31.9 26.0 - 32.0 pg LAB HEMATOLOGY METHOD 03/14/2025 9:51 AM EDT [facility] MCHC 32.6 30.7 - 35.5 g/dL LAB HEMATOLOGY METHOD 03/14/2025 9:51 AM EDT [facility] RDW 17.2(H) 11.5 - 14.5 % LAB HEMATOLOGY METHOD 03/14/2025 9:51 AM EDT [facility] MPV 11.0 8.8 - 12.5 fL LAB HEMATOLOGY METHOD 03/14/2025 9:51 AM EDT [facility] nRBC 0.0 <=0.0 per 100 WBCs LAB HEMATOLOGY METHOD 03/14/2025 9:51 AM EDT [facility] Blood Venous blood specimen / Unknown Venipuncture / Unknown 03/14/2025 8:38 AM EDT 03/14/2025 9:03 AM EDT Peter Do MD LAB BLOOD ORDERABLES Final Result [facility] [address] [place] [address] * (ABNORMAL) CEA, Serum (03/14/2025 8:38 AM EDT) CEA, Serum 5.2(H) <4.0 ng/mL 03/14/2025 10:22 AM EDT [facility] Blood Venous blood specimen / Unknown Venipuncture / Unknown 03/14/2025 8:38 AM EDT 03/14/2025 9:03 AM EDT Narrative [facility] - 03/14/2025 10:22 AM EDT Normal range for smokers: < 5.5 ng/ml Normal range for non-smokers: <=4.0 ng/ml Performed by Ricky electrochemiluminescent immunoassay. Results obtained with different test methods or kits cannot be used interchangeably. Peter Do MD LAB BLOOD ORDERABLES Final Result [facility] [address] [place] [address] * CT Abdomen w and wo IV [...] are consistent with and integrated into the [employer] the [employer] Diseases [...] are consistent with and integrated into the [place] Associationfor the Study of Liver Diseases (AASLD) [...] 02/09/2025 3:29 PM us Isabella Phong Saucedo COMMUNITY SERVICE WORKER IMG CT PROCEDURES Final Re sult * [...] Venous blood specimen / Unknown 01/04/2025 Result [facility] Provider LAB BLOOD ORDERABLES Courtney l Result from Last 3 Months Insurance [place] Advance Directives * Full Code (Latest Code Status on File) Date Activated Date Inactivated Comments 03/20/2025 7:46 PM 03/21/2025 8:56 PM Question Answer Comments I have reviewed the capacity from the link above and, if needed, have updated to appropriate status: Yes Care Teams Referral Rn Relationship Specialty Start Date End Date Pcp, No [address] [place] [id number] PCP - General Family Medicine 03/20/25 Isabella Saucedo APRN [facility] [address] [place] [address] Referring Physician 02/26/25 Jeannie Mcmillan, RN [facility] [address] [place] [address] Registered Nurse Transplant Surgery 03/08/25 [place] [address] Registered Nurse Transplant Surgery 03/08/25
--- OUTSIDE RECORDS SUMMARY | 2025-04-02 10:08 | XMS_ITS | Encounter Summary ---
Author Organization Healthcare Address [address] [place] [id number] Care Team Providers Care Security Compliance Specialist Name Role Phone Unavailable Primary Care Provider [...]
--- OUTSIDE RECORDS SUMMARY | 2025-04-02 10:08 | XMS_ITS | Encounter Summary ---
Author Organization [place] [address] Care Team Providers Care Well Control Instructor Name Role Phone Jan Sin MD Unavailable [phone] Macario Pryor MD Unavailable Unavailabl e Cr Resendez MD Primary Care Provider [phone] Reason for Visit * Reason Onset Date Comments Other 01/25/2025 insurance compan y called asking if office can watch for active patient verification form was rec'd. Please advise. Encounter Details Date Type Department Care Team (Late st Contact Info) Description 01/25/2025 Telephone ABDULLAHI RODRIGUEZ [address] [place] [address] [place] [address] Cr Resendez MD [address] [place] [address] [place] [address] Other (insurance company called asking if [...] documented as of this encounter Care Teams Well Control Instructor Relationship Specialty Start Date End Date Macario Pryor MD [address] [place] [address] [place] [address] PCP - Hematology/Oncology Internal Medicine-Medical Oncology 11/12/15 Cr Resendez MD [address] [place] [address] [place]INE[place] [address] PCP - General Family Medicine 11/24/21 Jan Sin MD [address] [place] [address] [place]ILS [id number] Internal Medicine-Cardiovascul ar Disease 08/28/14 documented as of this encounter
--- OUTSIDE RECORDS SUMMARY | 2025-04-02 10:08 | XMS_ITS | Encounter Summary ---
Author Organization Healthcare Address [address] [place] [address] Care Team Providers Care Mill Worker Name Role Phone Isabella Saucedo Phong DRIVERS LICENSE EXAMINER Unavailable [phone] Jeannie Mcmillan RN Unavailable [phone] [address] Shoemaker Unavailable [phone] Pcp, No Primary Care Provider Unavailabl e Encounter Details Date Type Department Care Team (Late st Contact Info) Description 03/20/2025 Orders Only External Location [address] [place] [address] Provider, External Social History Tobacco Use Types [...] as of this encounter Care Teams Mill Worker Relationship Specialty Start Date End Date Pcp, No [address] [place] [address] PCP - General Family Medicine 03/20/25 Isabella Saucedo APRN [address] [place] [address] [address] [place] [address] Referring Physician 02/26/25 Jeannie Mcmillan, RN [facility] [address] [place] [address] Registered Nurse Transplant Surgery 03/08/25 [place] [address] Registered Nurse Transplant Surgery 03/08/25 documented as of this encounter
--- OUTSIDE RECORDS SUMMARY | 2025-04-02 10:08 | XMS_ITS | Encounter Summary ---
Author [place] [address] Care Team Providers Care Braid Folder Name Role Phone Jan Sin MD Unavailable [phone] Macario Pryor MD Unavailable [facility] Cr Resendez MD Primary Care Provider [phone] Reason for Visit * Reason Onset Date Comments Referral 12/29/2024 called annemarie thomason for status of the referral being sent to [facility] - please advise. Encounter Details Date Type Department Care Team (Late st Contact Info) Description 12/29/2024 Telephone [place] [address] Cr Resendez MD [address] [place] [address] [place] [address] Referral ( called asking for status of the referral being sent to [facility] - please advise.) Social History Tobacco [...] Order US SCROTUM AND TESTICLES (Order # [id number]) on 12/27/2024 View Encounter What is the reason / diagnosis for this referral:K40.90 (ICD-10-CM) - 550.90 (ICD-9-CM) - Right inguinal hernia Have you been seen by your PCP for this issue: Yes Does patient have a preference on a group/provider: Yes (if yes, complete preferred provider info below) Preferred Provider/Group Name: [facility] Preferred Provider/Group Phone Number: Preferred Provider/Group [...] documented as of this encounter Care Teams Braid Folder Relationship Specialty Start Date End Date Macario Pryor MD [address] [place] [address] [place] [address] PCP - Hematology/Oncology Internal Medicine-Medical Oncology 11/12/15 Cr Resendez MD [address] [place] [address] [place] [address] PCP - General Family Medicine 11/24/21 Jan Sin MD [address] [place] [address] [place] [address] Internal Medicine-Cardiovascul ar Disease 08/28/14 documented as of this encounter
--- OUTSIDE RECORDS SUMMARY | 2025-04-02 10:08 | XMS_ITS | Encounter Summary ---
Author [place] [address] Care Team Providers Care Middle School Counselor Name Role Phone Jan Sin MD Unavailable [phone] Macario Pryor MD Unavailable Unavailabl e Cr Resendez MD Primary Care Provider [phone] Reason for Visit * Reason Comments Medication Refill Encounter Details Date Type Department Care Team (Late st Contact Info) Description 02/12/2025 Refill SEP Luis [facility] [place] [address] [address] [address] Cr Resendez MD [address] [place] [address] [place] [address] Medication Refill Social History Tobacco Use Types [...] documented as of this encounter Care Teams Middle School Counselor Relationship Specialty Start Date End Date Macario Pryor MD [address] [place] [address] [place] [address] PCP - Hematology/Oncology Internal Medicine-Medical Oncology 11/12/15 Cr Resendez MD [address] [place] [address] [place] [address] PCP - General Family Medicine 11/24/21 Jan Sin MD [address] [place] [address] [place] [address] Internal Medicine-Cardiovascul ar Disease 08/28/14 documented as of this encounter
--- OUTSIDE RECORDS SUMMARY | 2025-04-02 10:09 | XMS_ITS | Encounter Summary ---
Author Organization Healthcare Address [address] [place] [address] Care Team Providers Care Brood Station Manager Name Role Phone Isabella Saucedo MANAGER TRUST Unavailable [phone] Encounter Details Date Type Department Care Team [...] on filedocumented in this encounter Care Teams Brood Station Manager Relationship Specialty Start Date End Date Isabella Saucedo APRN [address] [place] [address] Referring Physician 02/26/25 documented as of this encounter
--- OUTSIDE RECORDS SUMMARY | 2025-04-02 10:09 | XMS_ITS | Encounter Summary ---
Author Organization [facility] Address [address] [place] [address] Care Team Providers Care Fiberglass Luggage Molder Name Role Phone Isabella Saucedo SOFTWARE ENGINEERING MANAGER Unavailable [phone] Reason for Visit * Reason Comments Appointment Encounter Details Date Type Department Care Team (Late st Contact Info) Description 03/05/2025 Telephone [facility] [address] [place] [address] Angelita Reeves [place] [phone] Appointment Social History Tobacco Use Types Packs/Day [...] to reach his , Ashley at at. [phone]. Called patient's , Ashley and offered to [...] on filedocumented in this encounter Care Teams Fiberglass Luggage Molder Relationship Specialty Start Date End Date Isabella Saucedo, SOFTWARE ENGINEERING MANAGER [address] [place] [address] Referring Physician 02/26/25 documented as of this encounter
--- OUTSIDE RECORDS SUMMARY | 2025-04-02 10:09 | XMS_ITS | Encounter Summary ---
Author Organization Healthcare Address [address] [place] [address] Care Team Providers Care Cook Dessert Name Role Phone Lewis Isabella Darling CHIEF OF SAFETY AND PROTECTION Unavailable [phone] Jeannie Mcmillan RN Unavailable [phone] Ebony Shoemaker Unavailable [phone] Encounter Details Date Type Department Care [...] documented as of this encounter Care Teams Cook Dessert Relationship Specialty Start Date End Date Lewis Isabella Darling APRN [address] [place] [address] Referring Physician 02/26/25 Jeannie Mcmillan, RN [facility] ADMINISTRATION [address] [place] [address] Registered Nurse Transplant Surgery 03/08/25 [place] [address] Registered Nurse Transplant Surgery 03/08/25 documented as of this encounter
--- OUTSIDE RECORDS SUMMARY | 2025-04-02 10:09 | XMS_ITS | Encounter Summary ---
Author Organization Healthcare Address [address] [place] [address] Care Team Providers Care Infectious Diseases Physician Name Role Phone Isabella Saucedo DISK RECOATER Unavailable [phone] Jeannie Mcmillan RN Unavailable [phone] Eb[address] Shoemaker Unavailable [phone] Pcp, No Primary Care Provider Unavailabl e Encounter Details Date Type Department Care Team (Late st Contact Info) Description 11/15/2024 Orders Only External Location [address] [place] [address] Provider, External Social History Tobacco Use Types [...] on filedocumented in this encounter Care Teams Infectious Diseases Physician Relationship Specialty Start Date End Date Pcp, No 800 [place] [address] PCP - General Family Medicine 03/20/25 Isabella Saucedo, DISK RECOATER [address] [place] [address] Referring Physician 02/26/25 Jeannie Mcmillan, RN [facility]TRANSPLANT ADMINISTRATION [address] [place] [address] Registered Nurse Transplant Surgery 03/08/25 [place] [address] Registered Nurse Transplant Surgery 03/08/25 documented as of this encounter
--- OUTSIDE RECORDS SUMMARY | 2025-04-02 10:09 | XMS_ITS | Encounter Summary ---
Author Organization Healthcare Address [address] [place] [address] Care Team Providers Care Tester Operator Name Role Phone Isabella Saucedo STATE PATROL OFFICER Unavailable [phone] Jeannie Mcmillan RN Unavailable [phone] Ebony Shoemaker Unavailable [phone] Pcp, No Primary Care Provider Unavailabl e Encounter Details Date Type Department Care Team (Late st Contact Info) Description 12/06/2024 Orders Only External Location 800 [place] [address] Provider, External Social History Tobacco Use Types [...] on filedocumented in this encounter Care Teams Tester Operator Relationship Specialty Start Date End Date Pcp, No [address] [place] [address] PCP - General Family Medicine 03/20/25 Isabella Saucedo APRN [address] [place] [address] Referring Physician 02/26/25 Jeannie Mcmillan, RN [facility]ANSPL[facility] ADMINISTRATION [address] [place] [address] Registered Nurse Transplant Surgery 03/08/25 [place] [address] Registered Nurse Transplant Surgery 03/08/25 documented as of this encounter
--- OUTSIDE RECORDS SUMMARY | 2025-04-02 10:09 | XMS_ITS | Encounter Summary ---
Author Organization Healthcare Address [address] [place] [address] Care Team Providers Care Executive Pilot Name Role Phone Isabella Saucedo TELLERS SUPERVISOR Unavailable [phone] Jeannie Mcmillan RN Unavailable [phone] Ebony Shoemaker Unavailable [phone] Pcp, No Primary Care Provider Unavailabl e Encounter Details Date Type Department Care Team (Late st Contact Info) Description 12/06/2024 Orders Only External Location [address] [place] [address] Provider, External Social History Tobacco Use Types [...] on filedocumented in this encounter Care Teams Executive Pilot Relationship Specialty Start Date End Date Pcp, No [address] [place] [address] PCP - General Family Medicine 03/20/25 Isabella Saucedo, TELLERS SUPERVISOR [address] [place] [address] Referring Physician 02/26/25 Jeannie Mcmillan, RN CH-TRANSPLANT ADMINISTRATION [address] [place] [address] Registered Nurse Transplant Surgery 03/08/25 [place] [address] Registered Nurse Transplant Surgery 03/08/25 documented as of this encounter
--- OUTSIDE RECORDS SUMMARY | 2025-04-02 10:09 | XMS_ITS | Encounter Summary ---
Author Organization Healthcare Address [address] [place] [address] Care Team Providers Care Taxonomist Name Role Phone Isablela Saucedo OFFICE EXECUTIVE Unavailable [phone] Jeannie Mcmillan RN Unavailable [phone] Ebony Shoemaker Unavailable [phone] Pcp, No Primary Care Provider Unavailabl e Encounter Details Date Type Department Care Team (Late st Contact Info) Description 12/06/2024 Orders Only External Location [address] [place] [address] Provider, External Social History Tobacco Use Types [...] on filedocumented in this encounter Care Teams Taxonomist Relationship Specialty Start Date End Date Pcp, No [address] [place] [address] PCP - General Family Medicine 03/20/25 Isabella Saucedo APRN [address] [place] [address] Referring Physician 02/26/25 Jeannie Mcmillan, RN CH-TRANSPLANT ADMINISTRATION [address] [place] [address] Registered Nurse Transplant Surgery 03/08/25 [place] [address] Registered Nurse Transplant Surgery 03/08/25 documented as of this encounter
--- OUTSIDE RECORDS SUMMARY | 2025-04-02 10:09 | XMS_ITS ---
Author Organization [facility] Address [address] [place] [address] Care Team Providers Care Children'S Entertainer Name Role Phone Isabella Saucedo TOOLROOM KEEPER Unavailable [phone] Jeannie Mcmillan RN Unavailable [phone] Ebony Shoemaker Unavailable [phone] Pcp, No Primary Care Provider Unavailabl e Transplant Episode Liver Candidate [facility] ([place], [place]) - [facility]BARA Referred on 02/26/2025 Marked as Ineligible on 03/06/2025 Reason: Transfered to Another Program Liver CoordinatorAngelita Reeves Fax: N/A Email: N/A Scores Score Value Updated Expires Exceptions/Tess sons CPRA Not available MELD (Calc) 7 03/21/2025 Care Team Name Role Phone Fax Email Angelita Reeves Liver Coordinator [phone] N/A N/A Gloria Chau LCSW Electrician Chief [phone] N/A N/A Isabella Saucedo APRN Referring Physician [phone] N/A Haroon Cannon MD Surgeon [phone] N/A Events Pre-Transplant Referred: 02/26/2025 Appointments (03/02/2025 - 05/03/2025) When With Visit Type Description 03/14/2025 Transplant - Alessio Millan El evated AFP; Liver lesion; Hepatic cirrhosis, unspecified hepatic cirrhosis type, unspecified whether ascites present (CMS/HCC); Other abnormal tumor markers 03/14/2025 Transplant - Dante Do Initial Cl inic Evaluation HCC (hepatocellular carcinoma) (Primary Dx)
--- OUTSIDE RECORDS SUMMARY | 2025-04-02 10:09 | XMS_ITS | Encounter Summary ---
Author Organization Healthcare Address [address] [place] [address] Care Team Providers Care Bread Oven Operator Name Role Phone Isabella Saucedo 21 DEALER Unavailable [phone] Jeannie Mcmillan RN Unavailable [phone] Ebony Shoemaker Unavailable [phone] Pcp, No Primary Care Provider Unavailabl e Encounter Details Date Type Department Care Team (Late st Contact Info) Description 12/07/2024 Orders Only External Location [address] [place] [address] Provider, External Social History Tobacco Use Types [...] on filedocumented in this encounter Care Teams Bread Oven Operator Relationship Specialty Start Date End Date Pcp, No 800 [place] [address] PCP - General Family Medicine 03/20/25 Isabella Saucedo, 21 DEALER [address] [place] [address] Referring Physician 02/26/25 Jeannie Mcmillan, RN CH-TRANSPLANT ADMINISTRATION [address] [place] [address] Registered Nurse Transplant Surgery 03/08/25 [place] [address] Registered Nurse Transplant Surgery 03/08/25 documented as of this encounter
--- OUTSIDE RECORDS SUMMARY | 2025-04-02 10:09 | XMS_ITS | Encounter Summary ---
Author Organization Healthcare Address [address] [place] [address] Care Team Providers Care Periodontist Name Role Phone Isabella Saucedo FOREST LOGISTICS MANAGER Unavailable [phone] Jeannie Mcmillan RN Unavailable [phone] Ebony Shoemaker Unavailable [phone] Pcp, No Primary Care Provider Unavailabl e Encounter Details Date Type Department Care Team (Late st Contact Info) Description 12/06/2024 Orders Only External Location 800 [place] [address] Provider, External Social History Tobacco Use Types [...] on filedocumented in this encounter Care Teams Periodontist Relationship Specialty Start Date End Date Pcp, No [address] [place] [address] PCP - General Family Medicine 03/20/25 Isabella Saucedo, FOREST LOGISTICS MANAGER [address] [place] [address] Referring Physician 02/26/25 Jeannie Mcmillan, RN CH-TRANSPLANT ADMINISTRATION [address] [place] [address] Registered Nurse Transplant Surgery 03/08/25 [place] [address] Registered Nurse Transplant Surgery 03/08/25 documented as of this encounter
--- OUTSIDE RECORDS SUMMARY | 2025-04-02 10:09 | XMS_ITS | Encounter Summary ---
Author Organization Healthcare Address [address] [place] [address] Care Team Providers Care Learning Disabilities Teacher Name Role Phone Isabella Saucedo HOME HEALTH SPECIALIST Unavailable [phone] Jeannie Mcmillan RN Unavailable [phone] Ebony Shoemaker Unavailable [phone] Pcp, No Primary Care Provider Unavailabl e Encounter Details Date Type Department Care Team (Late st Contact Info) Description 12/06/2024 Orders Only External Location [address] [place] [address] Provider, External Social History Tobacco Use Types [...] on filedocumented in this encounter Care Teams Learning Disabilities Teacher Relationship Specialty Start Date End Date Pcp, No [address] [place] [address] PCP - General Family Medicine 03/20/25 Isabella Saucedo, HOME HEALTH SPECIALIST [address] [place] [address] Referring Physician 02/26/25 Jeannie Mcmillan, RN CH-TRANSPLANT ADMINISTRATION [address] [place] [address] Registered Nurse Transplant Surgery 03/08/25 [place] [address] Registered Nurse Transplant Surgery 03/08/25 documented as of this encounter
--- OUTSIDE RECORDS SUMMARY | 2025-04-02 10:09 | XMS_ITS | Encounter Summary ---
Author Organization Healthcare Address [address] [place] [address] Care Team Providers Care Music Education Director Name Role Phone Isabella Saucedo SENIOR BIOINFORMATICS SPECIALIST Unavailable [phone] Jeannie Mcmillan RN Unavailable [phone] Ebony Shoemaker Unavailable [phone] Pcp, No Primary Care Provider Unavailabl e Encounter Details Date Type Department Care Team (Late st Contact Info) Description 12/06/2024 Orders Only External Location [address] [place] [address] Provider, External Social History Tobacco Use Types [...] on filedocumented in this encounter Care Teams Music Education Director Relationship Specialty Start Date End Date Pcp, No [address] [place] [address] PCP - General Family Medicine 03/20/25 Isabella Saucedo, SENIOR BIOINFORMATICS SPECIALIST [address] [place] [address] Referring Physician 02/26/25 Jeannie Mcmillan, RN CH-TRANSPLANT ADMINISTRATION [address] [place] [address] Registered Nurse Transplant Surgery 03/08/25 [place] [address] Registered Nurse Transplant Surgery 03/08/25 documented as of this encounter
--- OUTSIDE RECORDS SUMMARY | 2025-04-02 10:09 | XMS_ITS | Encounter Summary ---
Author Organization Healthcare Address [address] [place] [address] Care Team Providers Care Foundry Manager Name Role Phone Isabella Saucedo SWINE NUTRITIONIST Unavailable [phone] Jeannie Mcmillan RN Unavailable [phone] Ebony Shoemaker Unavailable [phone] Pcp, No Primary Care Provider Unavailabl e Encounter Details Date Type Department Care Team (Late st Contact Info) Description 01/14/2024 Orders Only External Location [address] [place] [address] Provider, External Social History Tobacco Use Types [...] on filedocumented in this encounter Care Teams Foundry Manager Relationship Specialty Start Date End Date Pcp, No [address] [place] [address] PCP - General Family Medicine 03/20/25 Isabella Saucedo, SWINE NUTRITIONIST [address] [place] [address] Referring Physician 02/26/25 Jeannie Mcmillan, RN CH-TRANSPLANT ADMINISTRATION [address] [place] [address] Registered Nurse Transplant Surgery 03/08/25 [place] [address] Registered Nurse Transplant Surgery 03/08/25 documented as of this encounter
--- OUTSIDE RECORDS SUMMARY | 2025-04-02 10:09 | XMS_ITS | Encounter Summary ---
Author Organization Healthcare Address [address] [place] [address] Care Team Providers Care Research Subject Name Role Phone Isabella Saucedo MARKETING DEVELOPER Unavailable [phone] Jeannie Mcmillan RN Unavailable [phone] Ebony Shoemaker Unavailable [phone] Pcp, No Primary Care Provider Unavailabl e Encounter Details Date Type Department Care Team (Late st Contact Info) Description 01/12/2025 Orders Only External Location [address] [place] [address] Provider, External Social History Tobacco Use Types [...] on filedocumented in this encounter Care Teams Research Subject Relationship Specialty Start Date End Date Pcp, No [address] [place] [address] PCP - General Family Medicine 03/20/25 Isabella Saucedo, MARKETING DEVELOPER [address] [place] [address] Referring Physician 02/26/25 Jeannie Mcmillan, RN CH-TRANSPLANT ADMINISTRATION [address] [place] [address] Registered Nurse Transplant Surgery 03/08/25 [place] [address] Registered Nurse Transplant Surgery 03/08/25 documented as of this encounter
--- OUTSIDE RECORDS SUMMARY | 2025-04-02 10:09 | XMS_ITS | Encounter Summary ---
Author Organization [facility] Address [address] [place] [address] Care Team Providers Care Data Sciences Director Name Role Phone Isabella Saucedo Phong CAR DESIGNER Unavailable [phone] Jeannie Mcmillan RN Unavailable [phone] Ebony Shoemaker Unavailable [phone] Reason for Referral * Consultation (Routine) - Authorized Specialty Diagnoses / Procedures Referred By Contac t Referred To Contact Medical Oncology Diagnoses Elevated AFP Liver lesion Peter Do MD [address] [address] Phone: tel: fax: Referral ID Status Reason Start Date Expiration Date Visits Requested Visits Authorized [id number] Authorized Consult and Treat 03/16/2025 09/15/2026 1 1 Reason for Visit * Reason Comments Txp Surgical Follow-up Ernestina: Tumor Boar d Discussion 03/16/25 Encounter Details Date Type Department Care Team (Late st Contact Info) Description 03/16/2025 Telephone [facility] [address] [place] [address] [place] [address] Txp Surgical Follow-up (Ernestina: Tumor [...] documented as of this encounter Care Teams Data Sciences Director Relationship Specialty Start Date End Date Isabella Saucedo APRN [address] [place] [address] Referring Physician 02/26/25 Jeannie Mcmillan, RN CH-TRANSPLANT ADMINISTRATION [address] [place], [place] [address] Registered Nurse Transplant Surgery 03/08/25 Ebony Shoemaker [place] [address] Registered Nurse Transplant Surgery 03/08/25 documented as of this encounter
--- OUTSIDE RECORDS SUMMARY | 2025-04-02 10:09 | XMS_ITS | Encounter Summary ---
Author Organization Healthcare Address [address] [place] [address] Care Team Providers Care Hide Measuring Machine Operator Name Role Phone Isabella Saucedo INTERIOR DESIGN FACULTY MEMBER Unavailable [phone] Jeannie Mcmillan RN Unavailable [phone] Ebony Shoemaker Unavailable [phone] Pcp, No Primary Care Provider Unavailabl e Encounter Details Date Type Department Care Team (Late st Contact Info) Description 12/06/2024 Orders Only External Location [address] [place] [address] Provider, External Social History Tobacco Use Types [...] on filedocumented in this encounter Care Teams Hide Measuring Machine Operator Relationship Specialty Start Date End Date Pcp, No [address] [place] [address] PCP - General Family Medicine 03/20/25 Isabella Saucedo, INTERIOR DESIGN FACULTY MEMBER [address] [place] [address] Referring Physician 02/26/25 Jeannie Mcmillan, RN CH-TRANSPLANT ADMINISTRATION [address] [place] [address] Registered Nurse Transplant Surgery 03/08/25 [place] [address] Registered Nurse Transplant Surgery 03/08/25 documented as of this encounter
--- OUTSIDE RECORDS SUMMARY | 2025-04-02 10:09 | XMS_ITS | Encounter Summary ---
Author Organization Healthcare Address [address] [place] [address] Care Team Providers Care Electric Refrigerator Servicer Name Role Phone Isabella Saucedo FILM PROCESS OPERATOR Unavailable [phone] Jeannie Mcmillan RN Unavailable [phone] Ebony Shoemaker Unavailable [phone] Pcp, No Primary Care Provider Unavailabl e Encounter Details Date Type Department Care Team (Late st Contact Info) Description 05/26/2022 Orders Only External Location [address] [place] [address] Provider, External Social History Tobacco Use Types [...] on filedocumented in this encounter Care Teams Electric Refrigerator Servicer Relationship Specialty Start Date End Date Pcp, No [address] [place] [address] PCP - General Family Medicine 03/20/25 Isabella Saucedo, FILM PROCESS OPERATOR [address] [place] [address] Referring Physician 02/26/25 Jeannie Mcmillan, RN CH-TRANSPLANT ADMINISTRATION [address] [place] [address] Registered Nurse Transplant Surgery 03/08/25 [place] [address] Registered Nurse Transplant Surgery 03/08/25 documented as of this encounter
--- OUTSIDE RECORDS SUMMARY | 2025-04-02 10:09 | XMS_ITS | Encounter Summary ---
Author Organization Healthcare Address [address] [place] [address] Care Team Providers Care Rock [place] Name Role Phone Isabella Saucedo JIG BUILDER HELPER Unavailable [phone] Jeannie Mcmillan RN Unavailable [phone] Ebony Shoemaker Unavailable [phone] Pcp, No Primary Care Provider Unavailabl e Encounter Details Date Type Department Care Team (Late st Contact Info) Description 12/06/2024 Orders Only External Location [address] [place] [address] Provider, External Social History Tobacco Use Types [...] on filedocumented in this encounter Care Teams Rock [place] Relationship Specialty Start Date End Date Pcp, No 800 [place] [address] PCP - General Family Medicine 03/20/25 Isabella Saucedo, JIG BUILDER HELPER [address] [place] [address] Referring Physician 02/26/25 Jeannie Mcmillan, RN CH-TRANSPLANT ADMINISTRATION [address] [place] [address] Registered Nurse Transplant Surgery 03/08/25 [place] [address] Registered Nurse Transplant Surgery 03/08/25 documented as of this encounter
--- OUTSIDE RECORDS SUMMARY | 2025-04-02 10:09 | XMS_ITS | Encounter Summary ---
Author Organization Healthcare Address [address] [place] [address] Care Team Providers Care Pipeline Integrity Engineer Name Role Phone Isabella Saucedo SECOND WORKER Unavailable [phone] Jeannie Mcmillan RN Unavailable [phone] Ebony Shoemaker Unavailable [phone] Pcp, No Primary Care Provider Unavailabl e Encounter Details Date Type Department Care Team (Late st Contact Info) Description 12/06/2024 Orders Only External Location [address] [place] [address] Provider, External Social History Tobacco Use Types [...] on filedocumented in this encounter Care Teams Pipeline Integrity Engineer Relationship Specialty Start Date End Date Pcp, No [address] [place] [address] PCP - General Family Medicine 03/20/25 Isabella Saucedo, SECOND WORKER [address] [place] [address] [place] [address] Referring Physician 02/26/25 Jeannie Mcmillan, RN [facility]MINISTRATION [address] [place] [address] Registered Nurse Transplant Surgery 03/08/25 [place] [address] Registered Nurse Transplant Surgery 03/08/25 documented as of this encounter
--- OUTSIDE RECORDS SUMMARY | 2025-04-02 10:09 | XMS_ITS | Encounter Summary ---
Author Organization [facility] Address [address] [place] [address] Care Team Providers Care Commercial Real Estate Attorney Name Role Phone Isabella Saucedo CERAMIC PLATER Unavailable [phone] Jeannie Mcmillan RN Unavailable [phone] Ebony Shoemaker Unavailable [phone] Reason for Referral * Imaging (Routine) - Closed Specialty Diagnoses / Procedures Referred By Contac t Referred To Contact Radiology Diagnoses Elevated AFP Liver lesion Hepatic cirrhosis, unspecified hepatic cirrhosis type, unspecified whether ascites present (CMS/HCC) Procedures CT CHEST WO IV CONTRAST Peter Do MD [address] [facility] [address] [place] [id number] Phone: tel: fax: Referral ID Status Reason Start Date Expiration Date Visits Re quested Visits Authorized [id number] Closed 03/14/2025 09/13/2026 1 1 Encounter Details Date Type Department Care Team (Late st Contact Info) Description 03/14/2025 Orders Only [facility] [address] [facility] [address] [place] [address] [place] [address] Liver lesion (Primary Dx); Elevated [...] documented as of this encounter Care Teams Commercial Real Estate Attorney Relationship Specialty Start Date End Date Isabella Saucedo APRN [address] [place] [address] Referring Physician 02/26/25 Jeannie Mcmillan, RN [facility]MINISTRATION [address] [place] [address] Registered Nurse Transplant Surgery 03/08/25 Ebony Shoemaker [place] [id number] Registered Nurse Transplant Surgery 03/08/25 documented as of this encounter
--- OUTSIDE RECORDS SUMMARY | 2025-04-02 10:09 | XMS_ITS | Encounter Summary ---
Author Organization Healthcare Address [address] [place] [address] Care Team Providers Care Tax Assistant Name Role Phone Isabella Saucedo ORACLE APEX DEVELOPER Unavailable [phone] Jeannie Mcmillan RN Unavailable [phone] Ebony Shoemaker Unavailable [phone] Pcp, No Primary Care Provider Unavailabl e Encounter Details Date Type Department Care Team (Late st Contact Info) Description 01/06/2024 Orders Only External Location [address] [place] [address] Provider, External Social History Tobacco Use Types [...] on filedocumented in this encounter Care Teams Tax Assistant Relationship Specialty Start Date End Date Pcp, No [address] [place] [address] PCP - General Family Medicine 03/20/25 Isabella Saucedo, ORACLE APEX DEVELOPER [address] [place] [address] Referring Physician 02/26/25 Jeannie Mcmillan, RN [facility] ADMINISTRATION [address] [place] [address] Registered Nurse Transplant Surgery 03/08/25 [place] [address] Registered Nurse Transplant Surgery 03/08/25 documented as of this encounter
--- OUTSIDE RECORDS SUMMARY | 2025-04-02 10:09 | XMS_ITS | Encounter Summary ---
Author Organization [facility] Address [address] [place] [address] Care Team Providers Care Stave Mill Hand Name Role Phone Isabella Saucedo WAGE CONCILIATOR Unavailable [phone] Jeannie Mcmillan RN Unavailable [phone] Ebony Shoemaker Unavailable [phone] Encounter Details Date Type Department Care [...] on filedocumented in this encounter Care Teams Stave Mill Hand Relationship Specialty Start Date End Date Isabella Saucedo APRN [address] [place] [address] [place] [address] Referring Physician 02/26/25 Jeannie Mcmillan, RN [facility]TRANSPLANT ADMINISTRATION [address] [place] [address] Registered Nurse Transplant Surgery 03/08/25 [place] [address] Registered Nurse Transplant Surgery 03/08/25 documented as of this encounter
--- OUTSIDE RECORDS SUMMARY | 2025-04-02 10:09 | XMS_ITS | Encounter Summary ---
Author Organization Healthcare Address [address] [place] [address] Care Team Providers Care Stonecutter Apprentice Hand Name Role Phone Isabella Saucedo TILE SETTER SUPERVISOR Unavailable [phone] Jeannie Mcmillan RN Unavailable [phone] Ebony Shoemaker Unavailable [phone] Pcp, No Primary Care Provider Unavailabl e Encounter Details Date Type Department Care Team (Late st Contact Info) Description 06/03/2022 Orders Only External Location [address] [place] [address] Provider, External Social History Tobacco Use Types [...] on filedocumented in this encounter Care Teams Stonecutter Apprentice Hand Relationship Specialty Start Date End Date Pcp, No [address] [place] [address] PCP - General Family Medicine 03/20/25 Isabella Saucedo, TILE SETTER SUPERVISOR [address] [place] [address] Referring Physician 02/26/25 Jeannie Mcmillan, RN [facility]PL[facility] ADMINISTRATION [address] [place] [address] Registered Nurse Transplant Surgery 03/08/25 [place] [address] Registered Nurse Transplant Surgery 03/08/25 documented as of this encounter
--- OUTSIDE RECORDS SUMMARY | 2025-04-02 10:09 | XMS_ITS | Encounter Summary ---
Author Organization Healthcare Address [address] [place] [address] Care Team Providers Care Slip Mixer Name Role Phone Isabella Saucedo JAVA WEB ENGINEER Unavailable [phone] Jeannie Mcmillan RN Unavailable Ebony Shoemaker Unavailable [phone] Pcp, No Primary Care Provider Unavailabl e Encounter Details Date Type Department Care Team (Late st Contact Info) Description 11/22/2024 Orders Only External Location [address] [place] [address] Provider, External Social History Tobacco Use Types [...] on filedocumented in this encounter Care Teams Slip Mixer Relationship Specialty Start Date End Date Pcp, No [address] [place] [address] PCP - General Family Medicine 03/20/25 Isabella Saucedo APRN [address] [place] [address] Referring Physician 02/26/25 Jeannie Mcmillan, RN [facility]TRANSPLANT ADMINISTRATION [address] [place] [address] Registered Nurse Transplant Surgery 03/08/25 [place] [address] Registered Nurse Transplant Surgery 03/08/25 documented as of this encounter
--- OUTSIDE RECORDS SUMMARY | 2025-04-02 10:09 | XMS_ITS | Encounter Summary ---
Author Organization Healthcare Address [address] [place] [address] Care Team Providers Care Academic Dean Name Role Phone Isabella Saucedo SUSTAINABILITY MANAGER Unavailable [phone] Jeannie Mcmillan RN Unavailable [phone] Ebony Shoemaker Unavailable [phone] Pcp, No Primary Care Provider Unavailabl e Encounter Details Date Type Department Care Team (Late st Contact Info) Description 01/12/2025 Orders Only External Location [address] [place] [address] Provider, External Social History Tobacco Use Types [...] on filedocumented in this encounter Care Teams Academic Dean Relationship Specialty Start Date End Date Pcp, No [address] [place] [address] PCP - General Family Medicine 03/20/25 Isabella Saucedo APRN [address] [place] [address] [place] [address] Referring Physician 02/26/25 Jeannie Mcmillan, RN [facility]TRANSPLANT ADMINISTRATION [address] [place] [address] Registered Nurse Transplant Surgery 03/08/25 [place] [address] Registered Nurse Transplant Surgery 03/08/25 documented as of this encounter
--- OUTSIDE RECORDS SUMMARY | 2025-04-02 10:09 | XMS_ITS | Encounter Summary ---
Author Organization [facility] Address [address] [place] [address] Care Team Providers Care Senior Payroll Administrator Name Role Phone Isabella aSucedo VISUAL AND STOCK ASSOCIATE Unavailable [phone] Reason for Visit * Reason Comments Referral - Liver Txp Encounter Details Date Type Department Care Team (Late st Contact Info) Description 02/26/2025 Telephone [facility] [address] [facility] [address] [place] [phone] Angelita Reeves [place] [phone] Referral - Liver Txp Social History Tobacco [...] Venous blood specimen / Unknown 01/04/2025 Result [facility] MD LAB BLOOD ORDERABLES Courtney l Result * Sodium, Plasma (01/04/2025) External Sodium 140 mmol/L Blood Venous blood specimen / Unknown 01/04/2025 Result [facility] LAB BLOOD ORDERABLES Courtney l Result * Creatinine, Plasma (01/04/2025) External Creatinine Blood 0.70 mg/dL Blood Venous blood specimen / Unknown 01/04/2025 Result [facility] LAB BLOOD ORDERABLES Courtney l Result * Total Bilirubin, Plasma (01/04/2025) External Bilirubin Total 1.3 mg/dL Blood Venous blood specimen / Unknown 01/04/2025 Result [facility] MD LAB BLOOD ORDERABLES Courtney l Result * Albumin, Plasma (01/04/2025) External Albumin 3.4 g/dL Blood Venous blood specimen / Unknown 01/04/2025 Result [facility] MD LAB BLOOD ORDERABLES Courtney l Result documented in this encounter Visit Diagnoses Not on filedocumented in this encounter Care Teams Senior Payroll Administrator Relationship Specialty Start Date End Date Isabella Saucedo APRN [address] [place] [address] Referring Physician 02/26/25 documented as of this encounter
--- OUTSIDE RECORDS SUMMARY | 2025-04-02 10:09 | XMS_ITS | Encounter Summary ---
Author Organization Healthcare Address [address] [place] [address] Care Team Providers Care Director Of Sales Name Role Phone Isabella Saucedo GLASS MOLD REPAIRER Unavailable [phone] Jeannie Mcmillan RN Unavailable [phone] Ebony Shoemaker Unavailable [phone] Pcp, No Primary Care Provider Unavailabl e Encounter Details Date Type Department Care Team (Late st Contact Info) Description 01/04/2025 Orders Only External Location [address] [place] [address] Provider, External Social History Tobacco Use Types [...] on filedocumented in this encounter Care Teams Director Of Sales Relationship Specialty Start Date End Date Pcp, No [address] [place] [address] PCP - General Family Medicine 03/20/25 Isabella Saucedo, GLASS MOLD REPAIRER [address] [place] [address] Referring Physician 02/26/25 Jeannie Mcmillan, RN CH-TRANSPLANT ADMINISTRATION [address] [place] [address] Registered Nurse Transplant Surgery 03/08/25 [place] [address] Registered Nurse Transplant Surgery 03/08/25 documented as of this encounter
--- OUTSIDE RECORDS SUMMARY | 2025-04-02 10:09 | XMS_ITS | Encounter Summary ---
Author Organization Healthcare Address [address] [place] [address] Care Team Providers Care Brooch And Bracelet Maker Name Role Phone Isabella Saucedo SUPERVISOR POWDER AND PRIMER CANNING Unavailable [phone] Jeannie Mcmillan RN Unavailable [phone] Ebony Shoemaker Unavailable [phone] Pcp, No Primary Care Provider Unavailabl e Encounter Details Date Type Department Care Team (Late st Contact Info) Description 12/07/2024 Orders Only External Location [address] [place] [address] Provider, External Social History Tobacco Use Types [...] on filedocumented in this encounter Care Teams Brooch And Bracelet Maker Relationship Specialty Start Date End Date Pcp, No [address] [place] [address] PCP - General Family Medicine 03/20/25 Isabella Saucedo APRN [address] [place] [address] Referring Physician 02/26/25 Jeannie Mcmillan, RN CH-TRANSPLANT ADMINISTRATION [address] [place] [address] Registered Nurse Transplant Surgery 03/08/25 [place] [address] Registered Nurse Transplant Surgery 03/08/25 documented as of this encounter
--- OUTSIDE RECORDS SUMMARY | 2025-04-02 10:09 | XMS_ITS | Encounter Summary ---
Author Organization Healthcare Address [address] [place] [address] Care Team Providers Care Marketing Sales Consultant Name Role Phone Isabella Saucedo BOX HINGE AND LOCK ATTACHER Unavailable [phone] Jeannie Mcmillan RN Unavailable [phone] Ebony Shoemaker Unavailable [phone] Pcp, No Primary Care Provider Unavailabl e Encounter Details Date Type Department Care Team (Late st Contact Info) Description 05/26/2022 Orders Only External Location [address] [place] [address] Provider, External Social History Tobacco Use Types [...] on filedocumented in this encounter Care Teams Marketing Sales Consultant Relationship Specialty Start Date End Date Pcp, No [address] [place] [address] PCP - General Family Medicine 03/20/25 Isabella Saucedo, BOX HINGE AND LOCK ATTACHER [address] [place] [address] Referring Physician 02/26/25 Jeannie Mcmillan, RN CH-TRANSPLANT ADMINISTRATION [address] [place] [address] Registered Nurse Transplant Surgery 03/08/25 [place] [address] Registered Nurse Transplant Surgery 03/08/25 documented as of this encounter
--- NOTE | 2025-04-02 10:11 | PC.NURSE ---
1011-collected labs via venipuncture stick in left ac with butterfly needle;pt to wait on results
[2025-04-02 10:39] LABS: Albumin Level 3.0 g/dl (3.5-5.0); Chloride 99 mmol/L (98-107); Potassium 4.9 mmoL/L (3.5-5.1); Sodium 135 mmol/L (136-145)
[2025-04-02 10:42] LABS: Alanine Aminotransferase 36 U/L (12-78); Albumin/Globulin Ratio 0.6 (1.1-1.8); Alkaline Phosphatase 164 U/L (38-126); Anion Gap 8.9 mEq/L (5-15); Aspartate Amino Transferase 76 U/L (17-59); Bilirubin,Total 0.9 mg/dl (0.2-1.3); Blood Urea Nitrogen 12 mg/dl (9-20); Carbon Dioxide 32 mmol/L (22.0-30.0); Creatinine,Serum 0.90 mg/dl (0.66-1.25); Estimated Glomerular Filt Rate 84 ml/min (>60); GFR (African American) 102 ML/MIN (>60); Globulin 4.8 g/dL (1.3-3.2); Total Protein,Serum 7.8 g/dl (6.3-8.2)
[2025-04-02 10:43] LABS: Calcium 9.7 mg/dl (8.4-10.2); Glucose 155 mg/dl (74-100)
== END 2025-04-02 11:00 | disposition home or self-care (01) ==
LOC: INF 10:05
PROVIDERS: PCP Family Medicine; Visit Provider Internal Medicine Medical Oncology
DX: C22.0 Liver cell carcinoma (principal)
CPT/HCPCS: 36415; 80053

== ENCOUNTER 2025-04-09 07:48 | Day surgery (SDC) | payer MEDICARE, MEDICAID, SELFPAY ==
[2025-04-06 10:31] VITALS: BMI 19.5
[2025-04-09] MEDS: LACTATED RINGERS 1000ML 1,000 ML 50 ML IV (09:08)
[2025-04-09 09:09] VITALS: BP 165/55; PULSE 64; RESP 18; TEMP 36.1; O2SAT 97
--- NOTE | 2025-04-09 09:31 | EXP.ANES.CKL ---
[facility] Disclaimer: The information contained in this section may have been updated after the patient was seen, as this information can be updated by other users. Medical History Mood disorder COPD (chronic obstructive pulmonary disease) Vitamin D deficiency, unspecified Abnormal ultrasound of both kidneys HTN (hypertension) Moderate mitral valve regurgitation Fatigue SOB (shortness of breath) Surgical History Hx of CABG AICD (automatic cardioverter/defibrillator) present Family History Other No significant family history Social History (Updated 04/06/25 @ 10:20 by Blessing Marquez RN) Smoking Status: Current every day smoker tobacco type: cigarettes packs per day: 1 years smoked: 40 quit status: has quit before alcohol intake: former substance use type: denies use current occupational status: disabled Travel in the last 8 weeks?: None household members: spouse housing: house caffeine: Yes Have you lived/traveled outside US in past 30 days?: No Contact w/someone who lives/traveled outside US past 30 days?: No Exposure to someone with infectious disease in past 14 days?: No Do you have a fever (greater than 100.4 F or 38 C)?: No Have you tested positive for COVID-19?: No Exposed to someone with COVID-19 in past 14 days?: No Do you have a sore throat?: No Do you have a cough?: No Do you have any weakness?: No Are you experiencing any nausea/vomitting?: No Do you have any diarrhea?: No Are you experiencing any unusual bleeding?: No Do you have any muscle aches/pain?: No Do you have any abdominal pain?: No Are you experiencing loss of taste or smell?: No [facility] Anesthesia Checklist Patient Identification Patient Identification: Arm Band and Verbal (Name & ) Structural Data Admitted From: Home Planned Operative Procedure/s: EGD Verified Documents: Surgical Consent NPO Status Verified Time NPO: 00:00 Chart Verification Results Verified: ECG Additional verifications Anesthesia Reactions: No Hx Blood Transfusions: No Blood Transfusion Reaction: No Airway Assessment Mallampati Score:: Class II Neurological Assessment Level of Consciousness: Awake, Alert and Appropriate Hx Seizures: No Numbness or tingling in extremities: No Anesthesia Plan Anesthesia Risk discussed: Yes Anesthesia Plan: Verified ASA Class: III Anesthesia Type: MAC
--- NOTE | 2025-04-09 09:36 | EXP.HP ---
History of Present Illness *Admission Date: 04/09/25 *Reason for visit:: Loss of appetite/weight loss and history of hepatocellular carcinoma *History of present illness: Mr. Steward is a 64-year-old gentleman who is here for diagnostic upper endoscopy. He has had loss of appetite and weight loss. He also has cirrhosis with portal hypertension and more recent diagnosis of hepatocellular carcinoma. The examination is deemed medically necessary for diagnostic EGD. The patient has been seen, interviewed and examined prior to the procedure by both myself and the anesthesia provider. [facility] Disclaimer: The information contained in this section may have been updated after the patient was seen, as this information can be updated by other users. Medical History Mood disorder COPD (chronic obstructive pulmonary disease) Vitamin D deficiency, unspecified Abnormal ultrasound of both kidneys HTN (hypertension) Moderate mitral valve regurgitation Fatigue SOB (shortness of breath) Surgical History Hx of CABG AICD (automatic cardioverter/defibrillator) present Family History Other No significant family history Social History (Updated 04/06/25 @ 10:20 by Blessing Marquez RN) Smoking Status: Current every day smoker tobacco type: cigarettes packs per day: 1 years smoked: 40 quit status: has quit before alcohol intake: former substance use type: denies use current occupational status: disabled Travel in the last 8 weeks?: None household members: spouse housing: house caffeine: Yes Have you lived/traveled outside US in past 30 days?: No Contact w/someone who lives/traveled outside US past 30 days?: No Exposure to someone with infectious disease in past 14 days?: No Do you have a fever (greater than 100.4 F or 38 C)?: No Have you tested positive for COVID-19?: No Exposed to someone with COVID-19 in past 14 days?: No Do you have a sore throat?: No Do you have a cough?: No Do you have any weakness?: No Are you experiencing any nausea/vomitting?: No Do you have any diarrhea?: No Are you experiencing any unusual bleeding?: No Do you have any muscle aches/pain?: No Do you have any abdominal pain?: No Are you experiencing loss of taste or smell?: No Other Medical History Have you received the Flu Vaccine for this season: No Have you received the Pneumonia Vaccine: Yes Meds Home Medications and Allergies Home Medications ?Medication ?Instructions ?Recorded ?Confirmed ?Type aspirin 81 mg tablet 81 mg PO DAILY 01/06/24 04/06/25 History escitalopram oxalate 20 mg tablet 20 mg PO AM 01/06/24 04/06/25 History fluticasone fur. 100 mcg-umeclid 1 inh inhalation DAILY 01/06/24 04/06/25 History 62.5 mcg-vilant 25 mcg inhalat.powder (Trelegy Ellipta) clopidogrel 75 mg tablet 75 mg PO DAILY 30 days #30 tabs 01/07/24 04/06/25 Rx empagliflozin 10 mg tablet 10 mg PO DAILY 30 days #30 tabs 01/07/24 04/06/25 Rx (Jardiance) nitroglycerin 0.4 mg sublingual 0.4 mg sublingual Q5M PRN chest 01/10/24 04/06/25 Rx tablet pain #14 tabs bisoprolol fumarate 5 mg tablet 5 mg PO DAILY #30 tabs 09/25/24 04/06/25 Rx albuterol sulfate 90 mcg/actuation 1 inh inhalation NEEDED PRN COPD 11/22/24 04/06/25 History aerosol inhaler prochlorperazine maleate 10 mg 10 mg PO Q6H PRN nausea and 03/27/25 04/06/25 Rx tablet (Compazine) vomiting #30 tabs furosemide 20 mg tablet 40 mg (2 x 20 mg) PO DAILY 90 days 03/28/25 04/06/25 Rx #180 tabs hydromorphone 4 mg tablet 4 mg PO Q4-6H PRN pain #180 tabs 03/29/25 04/06/25 Rx (Dilaudid) cyclobenzaprine 5 mg tablet 5 mg PO BID 04/05/25 04/06/25 History potassium chloride 20 mEq 10 meq PO DAILY 04/05/25 04/06/25 History tablet,extended release (K-Tab) polyethylene glycol 3350 17 17 g PO DAILY 04/06/25 04/06/25 History gram/dose oral powder (Miralax) sennosides 8.6 mg tablet (senna) 8.6 mg PO HS 04/06/25 04/06/25 History New Prescriptions to Start Prescriptions: Allergies Allergy/AdvReac Type Severity Reaction Status Date / Time adhesive tape (ADHESIVE TAPE) Allergy Intermediate I-RASH Verified 04/06/25 10:21 gabapentin AdvReac Severe Confusion Verified 04/06/25 10:21 duloxetine (From CYMBALTA) AdvReac Unknown Unknown Verified 04/06/25 10:21 allergy reaction Exam Data for Last 24 hours Vital signs and Labs for Last 24 Hours: Temp Pulse Resp BP Pulse Ox 97.0 F L 64 18 165/55 H 97 04/09/25 09:09 04/09/25 09:09 04/09/25 09:09 04/09/25 09:09 04/09/25 09:09 I & O for Last 24 hours: Intake & Output 04/06/25 04/07/25 04/08/25 04/09/25 23:59 23:59 23:59 23:59 Weight 132 lb *Routine HEENT Exam Head: Present normocephalic Eye: Present EOMI and PERRL ENT: Present mucous membranes moist *Routine Neck Exam Neck: Present supple *Routine Respiratory Exam Respiratory: Present CTA bilaterally *Routine Cardiovascular Exam Cardiovascular: Present RRR *Routine Abdominal Exam Abdominal: Present soft and normoactive bowel sounds; Absent tenderness *Routine Rectal Exam Rectal:: deferred *Routine Genitalia Exam Genitalia:: deferred *Routine Extremities Exam Extremities: Absent cyanosis, clubbing or edema *Routine Skin Exam Skin: Present warm; Absent rash *Routine Neurological Exam Neurological: Present alert and oriented X3 Assessment and Plan *Assessment and plan (1) Loss of appetite: Status: Acute Category: Medical Code(s): R63.0 - Anorexia (2) Weight loss: Status: Acute Category: Medical Code(s): R63.4 - Abnormal weight loss (3) Cirrhosis of liver: Status: Acute Category: Medical Code(s): K74.60 - Unspecified cirrhosis of liver (4) HCC (hepatocellular carcinoma): Status: Acute Category: Medical Code(s): C22.0 - Liver cell carcinoma Plan A/P: 1. Hepatocellular carcinoma and cirrhosis with weight loss and loss of appetite is the preprocedural diagnosis. EGD is performed to rule out portal hypertension/varices and diagnostic because of the marked change in appetite and weight loss. The patient will be anesthetized/sedated using MAC sedation. The patient has been seen and examined. Cardiac and lung assessment prior to the examination is stable. Proceed with planned diagnostic EGD.
--- NOTE | 2025-04-09 09:39 | P.PCN_ITS ---
[facility] Procedure Note Date: 04/09/25 Time: 09:56 Procedure Note:: Upper Endoscopy Procedure Report: Esophagogastroduodenoscopy with cold biopsies Endoscopost: Shai Conner II, MD Referring Physician: Cr Resendez MD Date of Procedure: April 09, 2025 Equipment: Olympus GIF-1100 standard upper endoscope Sedation: MAC sedation Indications: Mr. Steward is a 64-year-old gentleman who is here for diagnostic upper endoscopy. He does have HCC, cirrhosis and thrombocytopenia. He formerly was a heavy drinker. He had panendoscopy with me and had full liver workup with an elevated BRENNAN level. His alpha-fetoprotein increased to [address] liver mass protocol at the [facility]. This showed a 4 x 6 cm liver lesion consistent with hepatocellular carcinoma. His alpha-fetoprotein anselmo to greater than 1000. He was deemed a candidate for systemic chemotherapy but not surgery or transplant. He started atezolizumab and is due for Y-90. He has had complete loss of appetite with marked weight loss. He is on Dilaudid for pain. He also has had some constipation. Procedure: Prior to the procedure, a history and physical exam was performed, and patient's medications and allergies were reviewed. The risks, benefits and alternatives of the sedation and procedure were discussed with the patient. All questions were answered and informed consent was obtained. The patient was brought to the procedure room. Patient identification and proposed procedure were verified by the physician and the nurse. The patient was placed in a left lateral decubitus position and the scope was passed under direct vision. Throughout the procedure, the patient's blood pressure, pulse, and oxygen saturations were monitored continuously. The upper GI endoscopy was accomplished without difficulty. The patient tolerated the procedure well. Findings: The scope was passed directly into the upper esophagus and advanced to the third and fourth portion of the duodenum. The post bulbar duodenum, ampulla and duodenal bulb were normal with normal mucosa and conniventes. The s cope was withdrawn through a normal duodenal bulb and pylorus into the stomach. There was some bile reflux and chronic gastritis of the proximal stomach. Cold biopsies were taken along the lesser curvature of the stomach. Upon retroflexion there was no hiatal hernia. There were no gastric varices. The scope was then withdrawn into the esophagus. There were faint grade 1 esophageal varices without stigmata. The remainder of the esophageal mucosa was normal. Impression: 1. Faint grade 1 esophageal varices 2. Proximal chronic gastritis Plan: I will follow-up the biopsies. I do suspect that the patient's marked loss of appetite and weight loss is related to the hepatocellular carcinoma. I would recommend initiation of appetite stimulant (i.e. Megace). He will continue to follow with the [facility] for palliative management of his HCC.
[2025-04-09 10:01] VITALS: BP 109/70; PULSE 65; RESP 15; TEMP 36.3; O2SAT 95
[2025-04-09 10:11] VITALS: BP 129/60; PULSE 67; RESP 15; TEMP 36.3; O2SAT 97
[2025-04-09 10:21] VITALS: BP 130/69; PULSE 63; RESP 17; TEMP 36.3; O2SAT 97
[2025-04-09 10:31] VITALS: BP 124/60; PULSE 69; RESP 18; TEMP 36.3; O2SAT 97
== END 2025-04-09 10:41 | disposition home or self-care (01) ==
PROVIDERS: PCP Family Medicine; Visit Provider Internal Medicine Gastroenterology
PROC: 0DJ08ZZ Inspection of Upper Intestinal Tract, Via Natural or Artificial Opening Endoscopic (ICD-10-PCS; CPT 43239; principal; 2025-04-09 09:30)
DX: I85.00 Esophageal varices without bleeding (principal); K29.50 Unspecified chronic gastritis without bleeding; J44.9 Chronic obstructive pulmonary disease, unspecified; I10 Essential (primary) hypertension; Z95.810 Presence of automatic (implantable) cardiac defibrillator; I25.10 Atherosclerotic heart disease of native coronary artery without angina pectoris; Z95.1 Presence of aortocoronary bypass graft; F17.210 Nicotine dependence, cigarettes, uncomplicated; Z88.1 Allergy status to other antibiotic agents; Z88.5 Allergy status to narcotic agent; Z79.899 Other long term (current) drug therapy; Z79.82 Long term (current) use of aspirin
CPT/HCPCS: 43239; J2003; J2704; J7120

== ENCOUNTER 2025-04-26 08:53 | Outpatient (CLI) | payer MEDICARE, MEDICAID, SELFPAY ==
--- OUTSIDE RECORDS SUMMARY | 2016-03-04 08:15 | XMS_ITS | Encounter Summary ---
Author Organization [facility] [address] Care Team Providers Care Sped Teacher Name Role Phone Jan Sin MD Unavailable [phone] Carlton James DO Primary Care Provide r Macario Pryor MD Unavailable Unavailabl e Encounter Details Date Type Department Care Team (Latest Contact Info) Description 03/04/2016 8:15 AM EDT Hospital Encounter [facility] [address] [facility] [place] [address] Poppy Quintero MD [address] [place], [place] [id number] Left without seen Social History Tobacco Use [...] hearing? No 11/24/2021 10:05 AM EDT Danny Lgoan MA Is the person blind or does [...] 3:32 PM EDT Jer Sena RN * [place] Suicide Severity Rating Scale (Q shift for [...] documented as of this encounter Care Teams Sped Teacher Relationship Specialty Start Date End Date Carlton James DO [address] [place] [address] PCP - General Family Medicine 05/01/15 11/26/16 Macario Pryor MD [address] [place] [address] PCP - Hematology/Oncology Internal Medicine-Medical Oncology 11/12/15 Jan Sin MD [address] [place] [address] [place], [place] [id number] Internal Medicine-Cardiovascul ar Disease 08/28/14 documented as of this encounter
--- OUTSIDE RECORDS SUMMARY | 2025-03-14 10:00 | XMS_ITS | Encounter Summary ---
Author Organization Healthcare Address [address] [place] [address] Care Team Providers Care Hip Hop Artist Name Role Phone Isabella Saucedo WALLPAPER INSPECTOR AND SHIPPER Unavailable [phone] Jeannie Mcmillan RN Unavailable [phone] Ebony Shoemaker Unavailable [phone] Reason for Visit * Reason Comments Liver Lesion * Consultation (Routine) - Closed Specialty Diagnoses / Procedures Referred By Vicente t Referred To Contact Transplant Diagnoses Elevated AFP Liver lesion Hepatic cirrhosis, unspecified hepatic cirrhosis type, unspecified whether ascites present (CMS/HCC) Isabella Saucedo, WALLPAPER INSPECTOR AND SHIPPER [address] [place] [address] Phone: tel: fax: [facility] [address] [address] Phone: tel: fax: Referral ID Status Reason Start Date Expiration Date V isits Requested Visits Authorized [id number] Closed Specialty Services Required 03/06/2025 09/05/2026 1 1 Encounter Details Date Type Department Care Team (Late st Contact Info) Description 03/14/2025 10:00 AM EDT Office Visit [facility] [address] [address] Peter Do MD [address] [address] HCC (hepatocellular carcinoma) (Primary Dx) [...] a 64 y.o.-year-old male w/ PMHx cirrhosis, [place], CAD s/p CABG x4 with re-stenosis withrevision, [...] Tobacco Use: High Risk (12/27/2024) Received from [facility] Patient History Smoking Tobacco Use: Every [...] a 64 y.o.-year-old male w/ PMHx cirrhosis, [place], CAD s/p CABG x4 with re-stenosis withrevision, [...] documented as of this encounter Care Teams Hip Hop Artist Relationship Specialty Start Date End Date Isabella Saucedo APRN [address] [place] [phone] Referring Physician 02/26/25 Jeannie Mcmillan, RN CH-TRANSPLANT ADMINISTRATION [address] [place] [address] Registered Nurse Transplant Surgery 03/08/25 [place] [address] Registered Nurse Transplant Surgery 03/08/25 documented as of this encounter
--- OUTSIDE RECORDS SUMMARY | 2025-03-14 11:20 | XMS_ITS | Encounter Summary ---
Author Organization Healthcare Address [address] [place] [address] Care Team Providers Care Supervisor Composing Room Name Role Phone LewisIsabella Phong WRIST CLOSER Unavailable [phone] Jeannie Mcmillan RN Unavailable [phone] Ebony Shoemaker Unavailable [phone] Reason for Referral * Imaging (Routine) - Closed Specialty Diagnoses / Procedures [facility] Referred To Contact Radiology Diagnoses Elevated AFP Liver lesion Hepatic cirrhosis, unspecified hepatic cirrhosis type, unspecified whether ascites present (CMS/HCC) Procedures CT CHEST WO IV CONTRAST Peter Do MD [address] [address] Phone: tel: fax: Referral ID Status Reason Start Date Expiration Date Visits Re quested Visits Authorized [id number] Closed 03/14/2025 09/13/2026 1 1 Reason for Visit * Imaging (Routine) - Closed Specialty Diagnoses / Procedures Referred By Contac t Referred To Contact Radiology Diagnoses Elevated AFP Liver lesion Hepatic cirrhosis, unspecified hepatic cirrhosis type, unspecified whether ascites present (CMS/HCC) Procedures CT CHEST WO IV CONTRAST Peter Do MD [address] [address] Phone: tel: fax: Referral ID Status Reason Start Date Expiration Date Visits Re quested Visits Authorized [id number] Closed 03/14/2025 09/13/2026 1 1 Encounter Details Date Type Department Care Team (Latest Contact Info) Description 03/14/2025 11:20 AM EDT - 03/14/2025 11:59 PM EDT Hospital Encounter [facility] [address] [place] [address] Elevated AFP; Liver lesion; Hepatic cirrhosis, unspecified hepatic cirrhosis type, unspecified whether ascites present (CMS/HCC) Discharge Disposition: Home or Self Care [...] on file documented as of this encounter Functional Status * Over the [...] 0 03/14/2025 9:07 AM EDT Shari Moseley * Calculated C-SSRS Risk Score (Lifetime/Recent) Answer Date of Assessment Author No Risk Indicated 03/21/2025 8:00 AM EDT Sandy Moseley RN * Question Answer Date of Assessment Author 1. Wish to be (Past 1 Month) No 025 8:00 AM EDT Sandy Moseley RN 2. Non-Specific Active Suici heriberto Thoughts (Past 1 Month) No 03/21/2025 8:00 AM EDT Dali Moseley RN 6. Suicidal Behavior (Lifetime) No 8:00 AM EDT Sandy Msoeley, NIURKA documented as of this encounter Medications at Time of Discharge albuterol 108 (90 Base) MCG/ACT inhaler Inhale 2 puffs 4 times a day as needed for shortness of breath or wheezing. 09/28/2024 aspirin 81 MG EC tablet Take 1 tablet by mouth 1 time each day. bisoprolol (Zebeta) 5 MG tablet Take 1 tablet by mouth daily. clopidogrel (Plavix) 75 MG tablet Take 1 tablet by mouth 1 time each day. 11/15/2024 clotrimazole (Lotrimin) 1 % cream Apply 1 Application topically as needed. 12/27/2024 cyclobenzaprine (Flexeril) 5 MG tablet Take 1 tablet by mouth every 8 hours as needed. 02/12/2025 Entresto 24-26 MG tablet Take 1 tablet by mouth 2 times a day. escitalopram (Lexapro) 20 MG tablet Take 1 tablet by mouth 1 time each day. 09/07/2024 furosemide (Lasix) 20 MG tablet Take 1 tablet by mouth daily. 02/05/2025 Jardiance 10 MG Take 1 tablet by mouth daily. naloxone (Narcan) 4 mg/0.1 mL nasal spray 1. Give 1 spray in nostril for no/slow breathing or cannot wake after opioid use 2. Call 911 3. Repeat in other nostril if symptoms continue 12/21/2024 Trelegy Ellipta 100-62.5-25 MCG/ACT aerosol powder INHALE 1 PUFF INTO THE LUNGS DAILY AT 0900. atorvastatin (Lipitor) 20 MG tablet Take 1 tablet by mouth nightly. 01/30/2025 5 nitroglycerin (Nitrodur) 0.4 MG/HR patch Place 1 patch on the skin daily. 5 oxyCODONE-acetam inophen (Percocet) 7.5-325 MG tablet TAKE 1 TABLET BY ORAL ROUTE 3 TIMES A DAY FOR 30 DAYS M54.17 02/23/2025 5 documented as of this encounter Plan of Treatment Not on file documented as of this encounter Procedures Procedure Name Priority Date/Time Associated Diagnosis Comments CT CHEST WO IV CONTRAST Routine 03/14/2025 11:30 AM EDT Elevated AFP Liver lesion Hepatic cirrhosis, unspecified hepatic cirrhosis type, unspecified whether ascites present (CMS/HCC) documented in this encounter Results * CT CHEST WO IV CONTRAST (03/14/2025 11:30 AM EDT) Anatomical Region Laterality Modality Chest Computed Tomogra phy Impressions 03/14/2025 1:46 PM EDT Scattered bilateral sub-6 mm solid nodules and mildly enlarged paraesophageal lymph node (10 mm) are unchanged from October 2024 but will need continued follow-up to demonstrate longer-term stability. Small amount of lingular and bilateral lower lobe segmental/subsegmental mucous plugging. New small amount of ground glass opacities within the dependent left lower lobe, likely infectious/inflammatory. Hypodense right hepatic lesion best characterized on recent contrast-enhanced CT abdomen. CRITICAL RESULT: No. COMMUNICATION: Per this written report. By electronically signing this report, I, the attending physician, attest that I have personally reviewed the images/data for the above examination(s) and agree with the final edited report. Drafted by Gurvinder Pathak on 03/14/2025 12:17 PM Final report signed by Rodrigo Craven MD on 03/14/2025 1:46 PM Narrative 03/14/2025 1:46 PM EDT CLINICAL INDICATION: HCC. Initial staging. TECHNIQUE: Multiple CT helical images were obtained from thoracic inlet through upper abdomen without administration of IV contrast. The imaging protocol used in this examination was optimized to achieve diagnostic quality with the lowest possible radiation dose in accordance with the principles of ALARA (As Low As Reasonably Achievable). COMPARISON: Outside CT chest 11/22/2024. CT abdomen 02/09/2025 FINDINGS: Mediastinum and Pleura: A 10 mm paraesophageal lymph node previously 10 mm (series 2/image 86). Heart is normal in size with postsurgical change of CABG and dual chamber pacemaker/ICD. Tiny fat-containing right Bochdalek hernia. Lungs: Trachea and main bronchi are patent. No bronchiectasis or bronchial wall thickening. Few areas of lingular and bilateral lower lobe segmental/subsegmental mucous plugging. New small amount groundglass opacities within the dependent left lower lobe (series 4/image 328). Dependent left lower lobe subsegmental linear atelectasis versus scarring. Sequela of granulomatous disease most pronounced at the lung apices. Mild centrilobular and paraseptal emphysema. Scattered bilateral sub-6 mm solid nodules are unchanged in number and size from October 2024. Reference right upper lobe and right lower lobe (series 4/images 201 and 351). Upper Abdomen: Cirrhotic liver morphology. Hypodense right hepatic lesion best characterized on recent contrast-enhanced CT abdomen. Partially visualized splenomegaly (15 cm). Musculoskeletal: Thoracic spinal stimulator. Procedure Note Rodrigo Craven MD - 03/14/2025 CLINICAL INDICATION: HCC. Initial staging. TECHNIQUE: Multiple CT helical images were obtained from thoracic inlet through upperabdomen without administration of IV contrast. The imaging protocol used in this examination was optimized to achievediagnostic quality with the lowest possible radiation dose in accordancewith the principles of ALARA (As Low As Reasonably Achievable). COMPARISON: Outside CT chest 11/22/2024. CT abdomen 02/09/2025 FINDINGS: Mediastinum and Pleura: A 10 mm paraesophageal lymph node previously 10 mm(series 2/image 86). Heart is normal in size with postsurgical change ofCABG and dual chamber pacemaker/ICD. Tiny fat-containing right Bochdalekhernia. Lungs: Trachea and main bronchi are patent. No bronchiectasis or bronchialwall thickening. Few areas of lingular and bilateral lower lobesegmental/subsegmental mucous plugging. New small amount groundglassopacities within the dependent left lower lobe (series 4/image 328).Dependent left lower lobe subsegmental linear atelectasis versus scarring.Sequela of granulomatous disease most pronounced at the lung apices. Mildcentrilobular and paraseptal emphysema. Scattered bilateral sub-6 mm solidnodules are unchanged in number and size from October 2024. Reference rightupper lobe and right lower lobe (series 4/images 201 and 351). Upper Abdomen: Cirrhotic liver morphology. Hypodense right hepatic lesionbest characterized on recent contrast-enhanced CT abdomen. Partiallyvisualized splenomegaly (15 cm). Musculoskeletal: Thoracic spinal stimulator. IMPRESSION: Scattered bilateral sub-6 mm solid nodules and mildly enlargedparaesophageal lymph node (10 mm) are unchanged from October 2024 but willneed continued follow-up to demonstrate longer-term stability. Small amount of lingular and bilateral lower lobe segmental/subsegmentalmucous plugging. New small amount of ground glass opacities within thedependent left lower lobe, likely infectious/inflammatory. Hypodense right hepatic lesion best characterized on recentcontrast-enhanced CT abdomen. CRITICAL RESULT: No. COMMUNICATION: Per this written report. By electronically signing this report, I, the attending physician, daniel I have personally reviewed the images/data for the aboveexamination(s) and agree with the final edited report. Drafted by Gurvinder Pathak on 03/14/2025 12:17 PM Final report signed by Rodrigo Craven MD on 03/14/2025 1:46 PM Peter Do MD IMG CT PROCEDURES Final Res ult documented in this encounter Visit Diagnoses Diagnosis Elevated AFP Other nonspecific findings on examination of blood Liver lesion Other specified disorders of liver Hepatic cirrhosis, unspecified hepatic cirrhosis type, unspecified whether ascites present (CMS/HCC) documented in this encounter Additional Health Concerns Assessment Noted Time A fall risk assessment has been complete d for the patient 03/14/2025 9:07 AM EDT A Body Mass Index follow-up plan has been documented for the patient 03/16/2025 10:51 AM EDT documented as of this encounter Care Teams Supervisor Composing Room Relationship Specialty Start Date End Date Isabella Saucedo APRN [address] [place] [address] Referring Physician 02/26/25 Jeannie Mcmillan, RN [facility] [address] [place] [address] Registered Nurse Transplant Surgery 03/08/25 [place] [address] Registered Nurse Transplant Surgery 03/08/25 documented as of this encounter
--- OUTSIDE RECORDS SUMMARY | 2025-03-20 16:39 | XMS_ITS | Encounter Summary ---
Author Organization Healthcare Address [address] [place] [address] Care Team Providers Care Flanging Machine Operator Name Role Phone Isabella Saucedo PILOT MANAGER Unavailable [phone] Jeannie Mcmillan RN Unavailable [phone] Ebony Shoemaker Unavailable [phone] Pcp, No Primary Care Provider Unavailabl e Reason for Visit * Reason Comments Abdominal Pain * Auth/Cert (Routine) Specialty Diagnoses / Procedures Referred By Vicente t Referred To Contact Diagnoses Hepatocellular carcinoma hepatocellular carcinoma Navi Tripathi MD [address] [place] [address] Phone: tel: fax: [facility] Inpatient [address] [place] [address] Phone: tel: Referral ID Status Reason Start Date Expiration Date Visits Re quested Visits Authorized [id number] 1 1 Encounter Details Date Type Department Care Team (Latest Contact Info) Description 03/20/2025 4:39 PM EDT - 03/21/2025 6:51 PM EDT Hospital Encounter [facility] Inpatient [address] [place] [address] Clotilde Saleh MD [address] [place] [address] Navi Tripathi MD [address] [place] [address] Lolly Flaherty MD [address] [place] [phone] Epigastric pain (Primary Dx); Hepatocellular carcinoma; Alcoholic [...] PCP name and Address: Pcp, Tiki [address] [facility] / [place] [id number] Referring provider name and address: Monalisa Elizondo, PILOT MANAGER [address] [place] [address] Chief Concern, Brief History of Present Illness, [...] Ellipta 100-62.5-25 MCG/ACT aerosol powder Generic drug: [id number] INHALE 1 PUFF INTO THE LUNGS DAILY AT 0900. Where to Get Your Medications These medications were sent to [facility] - [place], [place] - [address] [facility] [id number] calcium carbonate 500 MG chewable tablet HYDROmorphone [...] 04, 2025 at 1:00PM Dr. Rodney Gonzáles [facility] Specialty Clinic (Oncology) [address] [place] [address] * Care Plan - Sandy Moseley RN [...] comments) Patient/Family Anticipated Services at Transition: case consultant Patient/Family Anticipates Transition to: home with family [...] and grandson on the bed side when business administration program chair visited and they were appreciative of business administration program chair's visit. Prayer and nicole is important to them. Director Of Enterprise Strategy supported them emotionallyand spiritually. Referral From: Director Of Enterprise Strategy Initiated Pastoral Care Provided For: Patient, Spouse, [...] and gratitude, Emotional support, Introduced Patient/Family to Director Of Enterprise Strategy Services, Supportive Listening, Spiritual support Pastoral Care Outcomes: Patient Outcomes: Expresses acceptance, Demonstrates lower level of Anxious(ness), Is knowledgeableabout Floor Layer Tile Services, Being at peace, Demonstrates and/or verbalizes increased comfort, Endorses increased sense of connection, Expresses intent to participate/comply in plan of care, Expresses e motionally release, Is functionally engaged in meaning making, Gratitude, Expresses feeling spiritually nurtured, Communicates increased satisfaction with hospital experience, Identifies spiritual orreligious practices as helpful, Expresses increased trust in medical team and/or plan of care, Appreciative of Director Of Enterprise Strategy Support, Expresses being seen and heard Cosigned by Azeb Worthy at 03/23/2025 10:36 AM EDT Associated attestation - Azeb Worthy Billy - 03/23/2025 10:36 AM EDT This is to attest business administration program chair international trade teacher chart note has been reviewed and okayed. [...] 03/20/2025 7:52 PM EDTAssociated Order(s): Consult to [facility] Consult to [facility] Consult performed by: Navi Tripathi [...] the pain caused him to present to [facility] ED, where CT scan showed [...] 98%. Results Review {Vanishing Link Review Results :[id number] I have reviewed the latest lab and [...] 64 y.o. male with history of cirrhosis, DE, CAD s/p CABG x4 with re-stenosis with revision, COPD, HTN, HFmrEF, central cord syndrome, inguinal hernia, cholelithiasis, recently disagnosed HCC with new central necrosis of tumor on CT at OSH today who presents with Abdominal Pain. Patient took prescription medication prior to arrival. Patient sent from [facility] for concern of tumor necrosis with fistulization to bile ducts. Patient reports epigastric, LUQ, and RUQ abdominal pain and pressure that began last night. He presented to [facility] for evaluation. He had a [...] and Affect: Mood normal. Behavior: Behavior normal. [place] Coma Scale Score: 15 ED Course & MDM - Assessment: 64 y.o. male presents to ED with complaint of abdominal pain and abnormal CT results. It should be noted that the chronic conditions includes cirrhosis, DE, CAD s/p CABG x4 with re-stenosis with [...] JEFRY TRIPATHIIA SUKUMAR A 03/20/251900 Consult to [facility] Medicine [facility] Once Specialty: Internal Medicine Provider: [...] that began last night. Was seen at [facility] and had CT scan of [...] ESS resident, patient to be admitted [facility] medicine and transplant teamwill see him tomorrow. No needs overnight. [MR] [id number] Reached out to hospital medicine for admission [MR] 1917 They agree to admit patient to [place] for multidisciplinary care. They will put in admissionorders and transfer him to foster. Patient updated on plan and provided ice [...] transferred to [facility] Admitting/Attending Physician: NAVI TRIPATHI [[id number]] Provider Care Team: JHOANA 11 [[id number]] Are [...] * PT/INR (03/21/2025 6:32 AM EDT) Pathologist [facility] Prothrombin Time 13.8 12.0 - 14.3 sec LAB COAGULATION METHOD 03/21/2025 7:00 AM EDT [facility] INR 1.1 0.9 - 1.1 LAB COAGULATION METHOD 03/21/2025 7:00 AM EDT [facility] Blood Venous blood specimen / Unknown Venipuncture / Unknown 03/21/2025 6:32 AM EDT 03/21/2025 6:43 AM EDT Narrative [facility] - 03/21/2025 7:00 AM EDT OPTIMAL INR RANGES FOR PATIENT ON ORAL ANTICOAGULANT THERAPY Prevention of venous thromboembolism INR 2.0 to 3.0 In patients with heart disease: Atrial fibrillation INR 2.0 to 3.0 Valvular heart disease INR 2.0 to 3.0 Tissue heart valves INR 2.0 to 3.0 Mechanical prosthetic valves INR 2.5 to 3.5 Prevention of recurrent DE INR 2.5 to 3.5 us Navi Tirpathi MD LAB BLOOD ORDERABLE S Final Result [facility] [address] [place] [address] * (ABNORMAL) Comprehensive metabolic panel (03/21/2025 6:32 AM EDT) Pathologist [facility] Glucose, Plasma 107(H) 74 - 99 mg/dL 03/21/2025 7:11 AM EDT [facility] BUN, Plasma 12 8 - 23 mg/dL 03/21/2025 7:11 AM EDT [facility] Creatinine, Plasma 0.77 0.70 - 1.20 mg/dL 03/21/2025 7:11 AM EDT [facility] BUN/Creatinine Ratio 16 03/21/2025 7:11 AM EDT [facility] Sodium, Plasma 139 136 - 145 mmol/L 03/21/2025 7:11 AM EDT [facility] Potassium, Plasma 4.6 3.6 - 4.9 mmol/L 03/21/2025 7:11 AM EDT [facility] Comment:Hemolyzed, result ma y be falsely increased. Chloride, Plasma 105 97 - 107 mmol/L 03/21/2025 7:11 AM EDT [facility] CO2, Plasma 23 22 - 29 mmol/L 03/21/2025 7:11 AM EDT [facility] Anion Gap 11 6 - 16 mmol/L 03/21/2025 7:11 AM EDT [facility] Total Calcium, Plasma 9.4 8.9 - 10.2 mg/dL 03/21/2025 7:11 AM EDT [facility] Total Protein 7.0 6.3 - 7.9 g/dL 03/21/2025 7:11 AM EDT [facility] Albumin, Plasma 3.6 3.5 - 5.2 g/dL 03/21/2025 7:11 AM EDT [facility] AST, Plasma 621(H) 10 - 50 U/L 03/21/2025 7:11 AM EDT [facility] Comment:Hemolyzed, result ma y be falsely increased. ALT, Plasma 48 10 - 50 U/L 03/21/2025 7:11 AM EDT [facility] Alkaline Phosphatase, Plasma 232(H) 40 - 115 U/L 03/21/2025 7:11 AM EDT [facility] Total Bilirubin, Plasma 0.6 0.2 - 1.1 mg/dL 03/21/2025 7:11 AM EDT [facility] eGFRcr 98.7 mL/min/1.7 3m*2 03/21/2025 7:11 AM EDT [facility] Comment:Reported eGFRcr in m L/min/1.73m2 is based the CKD-EPI 2020 equation that does not use a race coefficient. Blood Venous blood specimen / Unknown Venipuncture / Unknown 03/21/2025 6:32 AM EDT 03/21/2025 6:43 AM EDT us Navi Tripathi MD LAB BLOOD ORDERABLE S Final Result [facility] [address] [place] [address] * (ABNORMAL) CBC and Differential (03/21/2025 6:32 AM EDT) WBC Count 6.12 3.70 - 10.30 10*3/uL LAB HEMATOLOGY METHOD 03/21/2025 6:58 AM EDT [facility] RBC Count 4.62 4.60 - 6.10 10*6/uL LAB HEMATOLOGY METHOD 03/21/2025 6:58 AM EDT [facility] HGB 15.2 13.7 - 17.5 g/dL LAB HEMATOLOGY METHOD 03/21/2025 6:58 AM EDT [facility] HCT 45.4 40.0 - 51.0 % LAB HEMATOLOGY METHOD 03/21/2025 6:58 AM EDT [facility] Platelet Count 82(L) 155 - 369 10*3/uL LAB HEMATOLOGY METHOD 03/21/2025 6:58 AM EDT [facility] MCV 98 79 - 98 fL LAB HEMATOLOGY METHOD 03/21/2025 6:58 AM EDT [facility] MCH 32.9(H) 26.0 - 32.0 pg LAB HEMATOLOGY METHOD 03/21/2025 6:58 AM EDT [facility] MCHC 33.5 30.7 - 35.5 g/dL LAB HEMATOLOGY METHOD 03/21/2025 6:58 AM EDT [facility] RDW 16.8(H) 11.5 - 14.5 % LAB HEMATOLOGY METHOD 03/21/2025 6:58 AM EDT [facility] MPV 12.2 8.8 - 12.5 fL LAB HEMATOLOGY METHOD 03/21/2025 6:58 AM EDT [facility] nRBC 0.0 <=0.0 per 100 WBCs LAB HEMATOLOGY METHOD 03/21/2025 6:58 AM EDT [facility] Differential Type Automated LAB HEMATOLOGY METHOD 03/21/2025 6:58 AM EDT [facility] Neutrophils % 55 % LAB HEMATOLOGY METHOD 03/21/2025 6:58 AM EDT [facility] Lymphocytes % 24 % LAB HEMATOLOGY METHOD 03/21/2025 6:58 AM EDT [facility] Monocytes % 17 % LAB HEMATOLOGY METHOD 03/21/2025 6:58 AM EDT [facility] Eosinophils % 2 % LAB HEMATOLOGY METHOD 03/21/2025 6:58 AM EDT [facility] Basophils % 1 % LAB HEMATOLOGY METHOD 03/21/2025 6:58 AM EDT [facility] Immature Granulocytes % 1 % LAB HEMATOLOGY METHOD 03/21/2025 6:58 AM EDT [facility] Neutrophils Absolute 3.46 1.60 - 6.10 10*3/uL LAB HEMATOLOGY METHOD 03/21/2025 6:58 AM EDT [facility] Lymphocytes Absolute 1.45 1.20 - 3.90 10*3/uL LAB HEMATOLOGY METHOD 03/21/2025 6:58 AM EDT [facility] Monocytes Absolute 1.03(H) 0.30 - 0.90 10*3/uL LAB HEMATOLOGY METHOD 03/21/2025 6:58 AM EDT [facility] Eosinophils Absolute 0.11 0.00 - 0.50 10*3/uL LAB HEMATOLOGY METHOD 03/21/2025 6:58 AM EDT [facility] Basophils Absolute 0.04 0.00 - 0.10 10*3/uL LAB HEMATOLOGY METHOD 03/21/2025 6:58 AM EDT [facility] Immature Granulocytes Absolute 0.03 0.00 - 0.06 10*3/uL LAB HEMATOLOGY METHOD 03/21/2025 6:58 AM EDT [facility] Blood Venous blood specimen / Unknown Venipuncture / Unknown 03/21/2025 6:32 AM EDT 03/21/2025 6:43 AM EDT Narrative [facility] - 03/21/2025 6:58 AM EDT Therapeutic decision making should be based on absolute values, rather than percentages. us Navi Tripathi MD LAB BLOOD ORDERABLE S Final Result [facility] [address] [place] [address] * Troponin T, High Sensitivity, 2 Hour, Plasma (03/20/2025 10:54 PM EDT) Troponin T, High Sensitivity, 2 Hour 10 <19 ng/L 03/20/2025 11:31 PM EDT [facility] Blood Venous blood specimen / Unknown Venipuncture / Unknown 03/20/2025 10:54 PM EDT 03/20/2025 11:04 PM EDT Navi Tripathi MD LAB BLOOD ORDERABLE S Final Result [facility] [address] [place] [address] * Troponin now and 120 min (03/20/2025 6:51 PM EDT) Troponin T, High Sensitivity, 0 Hour 9 <19 ng/L 03/20/2025 7:35 PM EDT [facility] Blood Venous blood specimen / Unknown Venipuncture / Unknown 03/20/2025 6:51 PM EDT 03/20/2025 7:09 PM EDT Result [facility] Adrienne SmithWyldfire GENESIS LAB BLOOD ORDERABLES Courtney l Result Performing Organization Address City/[facility]/ZIP Co de Phone Number [facility] [address] [place] [address] * ED HIV 1/2 Antibody/Antigen Screen w/Reflex to HIV 1/2 Differentiation (03/20/2025 6:51 PM EDT) Pathologist [facility] HIV 1 & 2 Antibody/Antigen Screen Non Reactive Non Reactive 03/20/2025 8:05 PM EDT [facility] Comment:Screening for HIV 1 & 2 antibodies, and P24 antigen is NONREACTIVE. No confirmatory testing is required. Blood Venous blood specimen / Unknown Venipuncture / Unknown 03/20/2025 6:51 PM EDT 03/20/2025 7:09 PM EDT Result [facility] Adrienne Driscoll TAPPWyldfire PA LAB BLOOD ORDERABLES Courtney l Result Performing Organization Address City/[facility]/ZIP Co de Phone Number [facility] [address] [place] [address] * Hepatitis C Antibody - ED (03/20/2025 6:51 PM EDT) [facility] Hepatitis C Antibody Negative Negative 03/20/2025 8:01 PM EDT [facility] Blood Venous blood specimen / Unknown Venipuncture / Unknown 03/20/2025 6:51 PM EDT 03/20/2025 7:09 PM EDT Adrienne A RebsaWyldfire PA LAB BLOOD ORDERABLES Courtney l Result Performing Organization Address City/[facility] Co de Phone Number [facility] [address] [place] [address] * APTT (03/20/2025 6:51 PM EDT) [facility] aPTT 31 25 - 35 sec 03/20/2025 7:25 PM EDT [facility] Blood Venous blood specimen / Unknown Venipuncture / Unknown 03/20/2025 6:51 PM EDT 03/20/2025 7:08 PM EDT Adrienne A TAPPsaWyldfire PA LAB BLOOD ORDERABLES Courtney l Result Performing Organization Address [facility] de Phone Number [facility] [address] [place] [address] * C-Reactive protein (03/20/2025 6:51 PM EDT) [facility] CRP, Plasma 5.2 <=8.0 mg/L 03/20/2025 7:35 [...] high sensitivity CRP (CRPH). us Adrienne A RebsaWyldfire PA LAB BLOOD ORDERABLES Courtney l Result Performing Organization Address [facility] Co de Phone Number [facility] [address] [place] [address] * Lactic acid, venous (03/20/2025 6:51 PM EDT) Pathologist [facility] Lactate, Venous, Whole Blood 1.7 0.5 - 2.2 mmol/L LAB HEMATOLOGY METHOD 03/20/2025 7:12 PM EDT [facility] Blood Venous blood specimen / Unknown Venipuncture / Unknown 03/20/2025 6:51 PM EDT 03/20/2025 7:08 PM EDT Adrienne A [employer] [facility] [employer] [facility] LAB BLOOD ORDERABLES Courtney l Result [facility] [address] [place] [address] * Lipase (03/20/2025 6:51 PM EDT) Pathologist [facility] Lipase, Plasma 19 19 - 63 U/L 03/20/2025 7:35 PM EDT [facility] Blood Venous blood specimen / Unknown Venipuncture / Unknown 03/20/2025 6:51 PM EDT 03/20/2025 7:09 PM EDT Adrienne A Jini PA LAB BLOOD ORDERABLES Courtney l Result Performing Organization Address City/[facility] Co de Phone Number [facility] [address] [place] [address] * PT-INR (03/20/2025 6:51 PM EDT) [facility] Prothrombin Time 13.8 12.0 - 14.3 [...] INR 2.5 to 3.5 Prevention of recurrent DE INR 2.5 to 3.5 us Adrienne HURTADO LAB BLOOD ORDERABLES Courtney vega Result [facility] [address] [place] [id number] * (ABNORMAL) CMP (03/20/2025 6:51 PM EDT) Pathologist [facility] Glucose, Plasma 89 74 - 99 mg/dL 03/20/2025 7:47 PM EDT [facility] BUN, Plasma 15 8 - 23 mg/dL 03/20/2025 7:47 PM EDT [facility] Creatinine, Plasma 0.77 0.70 - 1.20 mg/dL 03/20/2025 7:47 PM EDT [facility] BUN/Creatinine Ratio 19 03/20/2025 7:47 PM EDT [facility] Sodium, Plasma 141 136 - 145 mmol/L 03/20/2025 7:47 PM EDT [facility] Potassium, Plasma 3.9 3.6 - 4.9 mmol/L 03/20/2025 7:47 PM EDT [facility] Chloride, Plasma 102 97 - 107 mmol/L 03/20/2025 7:47 PM EDT [facility] CO2, Plasma 26 22 - 29 mmol/L 03/20/2025 7:47 PM EDT [facility] Anion Gap 13 6 - 16 mmol/L 03/20/2025 7:47 PM EDT [facility] Total Calcium, Plasma 9.6 8.9 - 10.2 mg/dL 03/20/2025 7:47 PM EDT [facility] Total Protein 7.4 6.3 - 7.9 g/dL 03/20/2025 7:47 PM EDT [facility] Albumin, Plasma 3.7 3.5 - 5.2 g/dL 03/20/2025 7:47 PM EDT [facility] AST, Plasma 395(H) 10 - 50 U/L 03/20/2025 7:47 PM EDT [facility] Comment:Hemolyzed, result ma y be falsely increased. ALT, Plasma 43 10 - 50 U/L 03/20/2025 7:47 PM EDT [facility] Alkaline Phosphatase, Plasma 210(H) 40 - 115 U/L 03/20/2025 7:47 PM EDT [facility] Total Bilirubin, Plasma 0.7 0.2 - 1.1 mg/dL 03/20/2025 7:47 PM EDT [facility] eGFRcr 98.7 mL/min/1.7 3m*2 03/20/2025 7:47 PM EDT [facility] Comment:Reported eGFRcr in m L/min/1.73m2 is based the CKD-EPI 2020 equation that does not use a race coefficient. Blood Venous blood specimen / Unknown Venipuncture / Unknown 03/20/2025 6:51 PM EDT 03/20/2025 7:09 PM EDT Adrienne HURTADO LAB BLOOD ORDERABLES Courtney l Result [facility] [address] [place] [address] * (ABNORMAL) CBC w/diff (03/20/2025 6:51 PM EDT) WBC Count 6.84 3.70 - 10.30 10*3/uL LAB HEMATOLOGY METHOD 03/20/2025 7:21 PM EDT [facility] RBC Count 4.63 4.60 - 6.10 10*6/uL LAB HEMATOLOGY METHOD 03/20/2025 7:21 PM EDT [facility] HGB 15.3 13.7 - 17.5 g/dL LAB HEMATOLOGY METHOD 03/20/2025 7:21 PM EDT [facility] HCT 44.8 40.0 - 51.0 % LAB HEMATOLOGY METHOD 03/20/2025 7:21 PM EDT [facility] Platelet Count 79(L) 155 - 369 10*3/uL LAB HEMATOLOGY METHOD 03/20/2025 7:21 PM EDT [facility] MCV 97 79 - 98 fL LAB HEMATOLOGY METHOD 03/20/2025 7:21 PM EDT [facility] MCH 33.0(H) 26.0 - 32.0 pg LAB HEMATOLOGY METHOD 03/20/2025 7:21 PM EDT [facility] MCHC 34.2 30.7 - 35.5 g/dL LAB HEMATOLOGY METHOD 03/20/2025 7:21 PM EDT [facility] RDW 16.5(H) 11.5 - 14.5 % LAB HEMATOLOGY METHOD 03/20/2025 7:21 PM EDT [facility] MPV 11.2 8.8 - 12.5 fL LAB HEMATOLOGY METHOD 03/20/2025 7:21 PM EDT [facility] nRBC 0.0 <=0.0 per 100 WBCs LAB HEMATOLOGY METHOD 03/20/2025 7:21 PM EDT [facility] Differential Type Automated LAB HEMATOLOGY METHOD 03/20/2025 7:21 PM EDT [facility] Neutrophils % 60 % LAB HEMATOLOGY METHOD 03/20/2025 7:21 PM EDT [facility] Lymphocytes % 26 % LAB HEMATOLOGY METHOD 03/20/2025 7:21 PM EDT [facility] Monocytes % 12 % LAB HEMATOLOGY METHOD 03/20/2025 7:21 PM EDT [facility] Eosinophils % 2 % LAB HEMATOLOGY METHOD 03/20/2025 7:21 PM EDT [facility] Basophils % 0 % LAB HEMATOLOGY METHOD 03/20/2025 7:21 PM EDT [facility] Immature Granulocytes % 0 % LAB HEMATOLOGY METHOD 03/20/2025 7:21 PM EDT [facility] Neutrophils Absolute 4.05 1.60 - 6.10 10*3/uL LAB HEMATOLOGY METHOD 03/20/2025 7:21 PM EDT [facility] Lymphocytes Absolute 1.77 1.20 - 3.90 10*3/uL LAB HEMATOLOGY METHOD 03/20/2025 7:21 PM EDT [facility] Monocytes Absolute 0.85 0.30 - 0.90 10*3/uL LAB HEMATOLOGY METHOD 03/20/2025 7:21 PM EDT [facility] Eosinophils Absolute 0.11 0.00 - 0.50 10*3/uL LAB HEMATOLOGY METHOD 03/20/2025 7:21 PM EDT [facility] Basophils Absolute 0.03 0.00 - 0.10 10*3/uL LAB HEMATOLOGY METHOD 03/20/2025 7:21 PM EDT [facility] Immature Granulocytes Absolute 0.03 0.00 - 0.06 10*3/uL LAB HEMATOLOGY METHOD 03/20/2025 7:21 PM EDT [facility] Blood Venous blood specimen / Unknown Venipuncture / Unknown 03/20/2025 6:51 PM EDT 03/20/2025 7:08 PM EDT Narrative [facility] - 03/20/2025 7:21 PM EDT Therapeutic decision making should be based on absolute values, rather than percentages. Adrienne HURTADO LAB BLOOD ORDERABLES Courtney l Result Performing Organization Address City/[facility]/ZIP Co de Phone Number [facility] [address] [place] [address] * EKG now - STAT (adult) (03/20/2025 5:31 PM EDT) EKG DIAGNOSIS CLASS Abnormal MUSE ECG Ventricular Rate 60 BPM MUSE ECG Atrial Rate 60 BPM MUSE ECG DC Interval 176 ms MUSE ECG QRSD Interval 86 ms MUSE ECG QT Interval 422 ms MUSE ECG QTC Interval 422 ms MUSE ECG P Shelby 53 degrees MUSE ECG R Shelby -37 degrees MUSE ECG T Wave Shelby 80 degrees MUSE ECG Diagnosis Atrial-paced rhythm MUSE ECG Diagnosis Left axis deviation MUSE ECG Diagnosis T wave abnormality, consider anterior ischemia MUSE ECG Diagnosis Abnormal ECG MUSE ECG Diagnosis MUSE ECG Diagnosis Confirmed by J Carlos Campbell ([id number]) on 03/20/2025 5:41:58 PM MUSE ECG 03/20/2025 5:31 PM EDT 03/20/2025 5:41 PM EDT Adrienne HURTADO ECG ORDERABLES Final Res ult Performing Organization Address [facility] Co de Phone Number MUSE ECG documented [...] Stone Hopper)[phone] (Given - Provider: Sandy Moseley, NIURKA)[phone] (Given - Provider: Sandy Moseley RN) HYDROmorphone [...] documented as of this encounter Care Teams Flanging Machine Operator Relationship Specialty Start Date End Date Pcp, Tiki [address] [place] [address] PCP - General Family Medicine 03/20/25 Isabella Saucedo APRN [address] [place] [address] Referring Physician 02/26/25 Jeannie Mcmillan, RN [facility] [address] [place] [id number] Registered Nurse Transplant Surgery 03/08/25 [place] [address] Registered Nurse Transplant Surgery 03/08/25 documented as of this encounter
--- OUTSIDE RECORDS SUMMARY | 2025-04-23 09:00 | XMS_ITS | Encounter Summary ---
Author Organization [place] [address] Care Team Providers Care Line Producer Name Role Phone Jan Sin MD Unavailable [phone] Macario Pryor MD Unavailable [facility] e rC Resendez MD Primary Care Provider [phone] Reason for Visit * Reason Comments Annual Exam Encounter Details Date Type Department Care Team (Late st Contact Info) Description 04/23/2025 9:00 AM EDT Office Visit SEP Luis [facility] [place] [address] Cr Resendez MD [address] [place] [address] TRISTIAN MARTINEZ [id number] Encounter for Medicare annual wellness exam (Primary [...] Under treatment with GI and oncology at [facility]. On once monthly chemotherapy atthis time. Planning [...] Currently being treated for hepatocellular carcinoma at [facility] Fall Risk Assessment: Fall Risk [...] Under treatment with GI and oncology at [facility]. On once monthly chemotherapy atthis time. Planning [...] prostate cancer screening Bilateral impacted cerumen Orders: CT REMOVAL IMPACTED CERUMEN IRRIGATION/LVG UNILAT Cerumen impaction [...] visit. If you have a power of managing attorney stute, we should also have a [...] provided to the patient digitally through their [employer] account or with a paper copy if the patient doesn't have an active MyChart Account. A copy of today's progress note with recommendations below is alsoavailable electronically for patients with an active [employer] account per the Federal Cures Act. TheAVS [...] snare polypectomy; Surgeon: Poppy Quintero MD; Location: [facility]; Service: Endoscopy CORONARY ANGIOPLASTY WITH STENT PLACEMENT 01/04/2024 [facility] EYE SURGERY sandra cataract HERNIA REPAIR NECK SURGERY 12/06/2024 [facility] SPINAL CORD DECOMPRESSION 08/30/1998 UPPER GASTROINTESTINAL ENDOSCOPY N/A 10/30/2015 ESOPHAGOGASTRODUODENOSCOPY with biopsies; Surgeon: Poppy Quintero MD; Location: [facility]; Service: Endoscopy VASCULAR SURGERY spinal [...] Tablet by mouth daily. 90 Tablet 3 gvbpojtzmdq-hzzibdvqk-xmdmbplj (TRELEGY ELLIPTA) 100-62.5-25 mcg Inhl Disk with [...] SHAKE WELL nalOXone (NARCAN) 4 mg/actuation Nasl [place], Non-Aerosol 0.1 mL by Nasal route daily [...] Food Insecurity: Patient Declined (12/07/2024) Received from [facility] Hunger Vital Sign Worried About Running Out of Food in the Last Year: Patient declined Ran Out of Food in the Last Year: Patient declined Transportation Needs: Patient Declined (12/07/2024) Received from [facility] PRAPARE - Transportation Lack of Transportation (Medical): Patient declined Lack of Transportation (Non-Medical): Patient declined Housing Stability: Patient Declined (12/07/2024) Received from [facility] Housing Stability Vital Sign Unable [...] Type Priority Associated Diagnoses Orde r Schedule CT REMOVAL IMPACTED CERUMEN IRRIGATION/LVG UNILAT CT Charge Routine Bilateral impacted cerumen Ordered: 04/23/2025 [...] 0.08 <=4.00 ng/mL 04/23/2025 3:49 PM EDT [facility] Blood VENOUS BLOOD / Unknown Venipuncture / Unknown 04/23/2025 9:47 AM EDT 04/23/2025 9:47 AM EDT Narrative [facility] - 04/23/2025 3:49 PM EDT The Ricky [...] Resendez MD CHEMISTRY ORDERABLES Final Res ult [facility] 1 [facility] , [address] [place], [place] [id number] * LIPID PANEL REFLEX (04/23/2025 9:47 AM EDT) Cholesterol 98 <200 mg/dL 04/23/2025 4:37 PM EDT [employer] Comment: < 200 Desirable 200 - 239 Borderline High >= 240 High Triglyceride 38 <150 mg/dL 04/23/2025 4:37 PM EDT [facility] Comment: < 150 Normal 150 - 199 Borderline High 200 - 499 High >= 500 Very High HDL 40 >=40 mg/dL 04/23/2025 4:37 PM EDT [facility] Comment: > 60 Optimal 40 - 60 Acceptable < 40 Low LDL Calculated 47 <100 mg/dL 04/23/2025 4:37 PM EDT [facility] Comment: < 100 Optimal 100 - 129 Near or above optimal 130 - 159 Borderline High 160 - 189 High >= 190 Very High The National Institutes of Health (NIH) equation is used for all lipid panels that report calculated LDL (LDL-C). Non-HDL-C Calculated 58 <=129 mg/dL 04/23/2025 4:37 PM EDT [facility] Comment: <130 Desirable 130-159 Above Desirable 160-189 Borderline High 190-219 High >= 220 Very High Fasting Specimen? Yes None 025 4:37 PM EDT [facility] Blood VENOUS BLOOD / Unknown Venipuncture / Unknown 04/23/2025 9:47 AM EDT 04/23/2025 9:47 AM EDT Cr Resendez MD CHEMISTRY ORDERABLES Final Res ult Performing Organization Address City/[facility]/ZIP Co de Phone Number [facility] 1 [facility] , [place] [address] * TSH REFLEX TO FT4 (04/23/2025 9:47 AM EDT) TSH Reflex 0.889 0.270 - 4.200 mcIU/mL 04/23/2025 4:37 PM EDT [facility] [employer] [facility] Blood VENOUS BLOOD / Unknown Venipuncture / Unknown 04/23/2025 9:47 AM EDT 04/23/2025 9:47 AM EDT Narrative [facility] [facility] - 04/23/2025 4:37 PM EDT Ingestion of fernanda doses of biotin (>5 mg/day) taken within 8 hours of drawing blood sample can interfere with this immunoassay test. us Cr Resendez MD CHEMISTRY ORDERABLES Final Res ult [facility] [address] [facility] , [place] [address] * (ABNORMAL) CBC WITH DIFF (04/23/2025 9:47 AM EDT) WBC 7.3 3.7 - 10.3 x10(3)/mcL 04/23/2025 4:08 PM EDT [facility] RBC 4.77 4.60 - 6.10 x10(6)/mcL 04/23/2025 4:08 PM EDT [facility] [employer] [facility] Hgb 15.3 13.7 - 17.5 g/dL 04/23/2025 4:08 PM EDT [facility] Hct 46.8 40.0 - 51.0 % 04/23/2025 4:08 PM EDT [facility] [facility] MCV 98.1 80.0 - 100.0 fL 04/23/2025 4:08 PM EDT [facility] MCH 32.1 26.0 - 34.0 pg 04/23/2025 4:08 PM EDT [facility] [facility] MCHC 32.7 30.7 - 35.5 g/dL 04/23/2025 4:08 PM EDT [facility] [facility] RDW 14.9 <=14.9 % 04/23/2025 4:08 PM EDT [facility] [employer] [facility] Platelet 90(L) 155 - 369 [...] 4:08 PM EDT [facility] [place] # 1.2(H) 0.3 - 0.9 x10(3)/mcL 04/23/2025 [...] sult [facility] [address] [facility] [facility] , [place] [address] * (ABNORMAL) COMPREHENSIVE METABOLIC PANEL (04/23/2025 9:47 [...] mL/min/1.7 3 m2 04/23/2025 4:37 PM EDT [facility] Comment:Estimated GFR was ca lculated using the CKD-EPIcr (2020) equation refit without race. The equation is recommended by the National Kidney Foundation - [place] Society of Nephrology Task Force. Blood VENOUS BLOOD / Unknown Venipuncture / Unknown 04/23/2025 9:47 AM EDT 04/23/2025 9:47 AM EDT Cr Resendez MD CHEMISTRY ORDERABLES Final Res ult Performing Organization Address [facility]/ZIP Co de Phone Number [facility] [address] [place] [address] , [place] [address] * (ABNORMAL) HEMOGLOBIN A1C (04/23/2025 9:47 AM EDT) Hgb A1C 5.7(H) 4.2 - 5.6 % 04/23/2025 5:18 PM EDT [facility] Est. Avg Glucose 117 mg/dL 04/23/2025 5:18 PM EDT [facility] Blood VENOUS BLOOD / Unknown Venipuncture / Unknown 04/23/2025 9:47 AM EDT 04/23/2025 9:47 AM EDT Narrative [facility] - 04/23/2025 5:18 PM EDT REFERENCE RANGE: Normal: 4.0-5.6% Pre-diabetes: 5.7-6.4% Provisional diagnosis of diabetes: >6.4% Hgb F>10% and anything which shortens red cell survival, such as hemolytic anemia, or unstable hemoglobin variants such as HbSS, HbSC, or HbCC, will lower the HbA1c value associated with a given level of glycemic control. Cr Resendze MD CHEMISTRY ORDERABLES Final Res ult Performing Organization Address [facility]/ZIP Co de Phone Number [employer] [address] , [place] [address] documented in this encounter Visit [...] documented as of this encounter Care Teams Line Producer Relationship Specialty Start Date End Date Macario Pryor MD [address] [place] [address] [place] [address] PCP - Hematology/Oncology Internal Medicine-Medical Oncology 11/12/15 Cr Resendez MD [address] [place] [address] [place] [address] PCP - General Family Medicine 11/24/21 Jan Sin MD [address] [place] [address] [place] [address] Internal Medicine-Cardiovascul ar Disease 08/28/14 documented as of this encounter
--- OUTSIDE RECORDS SUMMARY | 2025-04-23 09:30 | XMS_ITS | Encounter Summary ---
Author Organization [place] [address] Care Team Providers Care Stem Mounter Name Role Phone Jan Sin MD Unavailable [phone] Macario Pryor MD Unavailable Cr Rodriguez MD Primary Care Provider [phone] Reason for Visit * Reason Comments Care Management - Face To Face Care Transition Advance Care Planning Encounter Details Date Type Department Care Team (Latest Contact Info) Description 04/23/2025 9:30 AM EDT Clinical Support [facility] [place] [facility] [address] [place] [address] Elizabeth Reynoso, NIURKA Encounter for support [...] Assessment Author No 11/24/2021 10:05 AM EDT aDnny Jones MA * PHQ-2 Total Score Answer [...] presents for follow up visit with Office Insurance Salesman (OCC) Reason for visit: Advanced Care Planning Visit Type: Face to Face Assessment: public information coordinator met with patient and spouse to [...] Educated patient on: Advanced Care Planning Handouts: [place] Living Will x 2 copies Handouts provided in person Care Coordination Business Card Goals: One-time assessment Next Steps: Insurance Salesman contact information given / reviewed Notes: No identified SDOH concerns after SDOH assessment review documented in this encounter Miscellaneous Notes * ACP (Advance Care Planning) - Elizabeth Reynoso RN - 04/23/2025 9:30 AM EDT Advance Care Planning discussion: ACP discussion: This personal lines underwriter and patient addressed ACP including explanation and [...] documented as of this encounter Care Teams Stem Mounter Relationship Specialty Start Date End Date Macario Pryor MD [address] [place] [address] TRIST[place] NAILS [address] PCP - Hematology/Oncology Internal Medicine-Medical Oncology 11/12/15 Cr Resendez MD [address] [place] [address] TRISTIAN MARTINEZ [address] PCP - General Family Medicine 11/24/21 Jan Sin MD [address] [place] [address] TRISTIAN NAILS [id number] Internal Medicine-Cardiovascul ar Disease 08/28/14 documented as of this encounter
[2025-04-26 08:58] VITALS: BMI 20.5
--- OUTSIDE RECORDS SUMMARY | 2025-04-26 08:59 | XMS_ITS | Encounter Summary ---
Author Organization [facility] Address [address] [place] [address] Care Team Providers Care Blocker Metal Base Name Role Phone Isabella Saucedo Phong BUNDLE TIER AND LABELER Unavailable [phone] Jeannie Mcmillan RN Unavailable [phone] Ebony Shoemaker Unavailable [phone] Pcp, No Primary Care Provider Unavailabl e Encounter Details Date Type Department Care Team (Late st Contact Info) Description 03/20/2025 Orders Only External Location [address] [place] [address] Provider, External Social History Tobacco Use Types Packs/Day Years Used Date Smoking Tobacco: Every Day Cigarettes 0.5 7.7 Started: 2018 Smokeless Tobacco: Never PHQ-2 Answer [...] documented as of this encounter Care Teams Blocker Metal Base Relationship Specialty Start Date End Date Pcp, No [address] [place] [address] PCP - General Family Medicine 03/20/25 Isabella Saucedo APRN [address] [place] [address] [address] [place] [address] Referring Physician 02/26/25 Jeannie Mcmillan, RN [facility] [address] [place] [address] Registered Nurse Transplant Surgery 03/08/25 [place] [address] Registered Nurse Transplant Surgery 03/08/25 documented as of this encounter
--- OUTSIDE RECORDS SUMMARY | 2025-04-26 08:59 | XMS_ITS | Encounter Summary ---
Author Organization [place] [address] Care Team Providers Care Cotton Seed Culler Name Role Phone Jan Sin MD Unavailable [phone] Macario Pryor MD Unavailable [facility] Cr Resendez MD Primary Care Provider [phone] Reason for Visit * Reason Onset Date Comments Central Patient Navigator Outreach 04/19/2025 AWV Questionnaire Encounter Details Date Type Department Care Team (Late st Contact Info) Description 04/19/2025 Patient Outreach [facility] [address] [place] [address] Cr Resendez MD [address] [place] [address] [place] [address] Central Patient Navigator Outreach (AWV Questionnaire/) Social History Tobacco Use Types Packs/Day Years [...] 11/24/2021 10:05 AM Danny Mckeon MA * Is the person blind or does he/she have serious difficulty seeing even when wearing glasses? Answer Date of Assessment Author No 11/24/2021 10:05 AM EDDanny Ashby MA * Does this person have serious difficulty walking or climbing stairs? Answer Date of Assessment Author No 11/24/2021 10:05 AM EDDanny Ashby MA * Does this person have difficulty dressing or bathing? Answer Date of Assessment Author No 11/24/2021 10:05 AM Danny Mckeon MA * Because of a physical, mental [...] documented in this encounter Progress Notes * Stephani Edmonds - 04/19/2025 3:33 PM EDT Patient Outreach: Pre-Visit Questionnaires Attempt Count: inbound Care Gaps Addressed materials and corrosion engineer: Medicare Questionnaire Outcome:Medicare Questionnaire completed Call back number: [phone] * Esme Mendez - 04/19/2025 10:38 AM EDT Patient Outreach: Pre-Visit Questionnaires Attempt Count: 1st Care Gaps Addressed materials and corrosion engineer: Medicare Questionnaire Outcome:MyChart Message Sent and Patient not available Call back number: [phone] documented in this encounter Plan of Treatment [...] documented as of this encounter Care Teams Cotton Seed Culler Relationship Specialty Start Date End Date Macario Pryor MD [address] [place] [address] [place] [address] PCP - Hematology/Oncology Internal Medicine-Medical Oncology 11/12/15 Cr Resendez MD [address] [place] [address] [place] [address] PCP - General Family Medicine 11/24/21 Jan Sin MD [address] [place] [address] [place] [address] Internal Medicine-Cardiovascul ar Disease 08/28/14 documented as of this encounter
--- OUTSIDE RECORDS SUMMARY | 2025-04-26 08:59 | XMS_ITS | Encounter Summary ---
Author Organization [place] [address] Care Team Providers Care Supervisor Assembly And Packing Name Role Phone Jan Sin MD Unavailable [phone] Macario Pryor MD Unavailable Unavailabl e Cr Resendez MD Primary Care Provider [phone] Reason for Visit * Reason Onset Date Comments Other 01/25/2025 insurance compan y called asking if office can watch for active patient verification form was rec'd. Please advise. Encounter Details Date Type Department Care Team (Late st Contact Info) Description 01/25/2025 Telephone [facility] [address] [place] [address] [place] [address] Cr Resendez MD [address] [place] [address] [place] [address] Other (insurance company called asking if [...] as of this encounter Care Teams Supervisor Assembly And Packing Relationship Specialty Start Date End Date Macario Pryor MD [address] [place] [address] [place] [address] PCP - Hematology/Oncology Internal Medicine-Medical Oncology 11/12/15 Cr Resendez MD [address] [place] [address] TRISTIAN MARTINEZ [address] PCP - General Family Medicine 11/24/21 Jan Sin MD [address] [place] [address] TRISTIAN NAILS [address] Internal Medicine-Cardiovascul ar Disease 08/28/14 documented as of this encounter
--- OUTSIDE RECORDS SUMMARY | 2025-04-26 08:59 | XMS_ITS | Encounter Summary ---
Author Organization Healthcare Address [address] [place] [address] Care Team Providers Care Oxygen Tank Filler Name Role Phone Isabella Saucedo Phong PIPE STRAIGHTENER Unavailable [phone] Jeannie Mcmillan RN Unavailable [phone] Ebony Shoemaker Unavailable [phone] Pcp, No Primary Care Provider Unavailabl e Encounter Details Date Type Department Care Team (Late st Contact Info) Description 03/20/2025 Orders Only External Location [address] [place] [address] Provider, External Social History Tobacco Use Types [...] 1 Month) No 03/21/2025 8:00 AM EDT Dlai Moseley RN 6. Suicidal Behavior (Lifetime) No [...] documented as of this encounter Care Teams Oxygen Tank Filler Relationship Specialty Start Date End Date Pcp, No [address] [place] [address] PCP - General Family Medicine 03/20/25 Isabella Saucedo APRN [address] [place] [address] [address] [place] [address] Referring Physician 02/26/25 Jeannie Mcmillan, RN [facility] [address] [place] [address] Registered Nurse Transplant Surgery 03/08/25 [place] [address] Registered Nurse Transplant Surgery 03/08/25 documented as of this encounter
--- OUTSIDE RECORDS SUMMARY | 2025-04-26 08:59 | XMS_ITS | Encounter Summary ---
Author Organization Healthcare Address [address] [place] [address] Care Team Providers Care Pan Operator Name Role Phone Isabella Saucedo Phong DIRECTOR PACKAGING Unavailable [phone] Jeannie Mcmillan RN Unavailable [phone] Ebony Shoemaker Unavailable [phone] Pcp, No Primary Care Provider Unavailabl e Encounter Details Date Type Department Care Team (Late st Contact Info) Description 03/20/2025 Orders Only External Location [address] [place] [address] Provider, External Social History Tobacco Use Types [...] documented as of this encounter Care Teams Pan Operator Relationship Specialty Start Date End Date Pcp, No [address] [place] [address] PCP - General Family Medicine 03/20/25 Isabella Saucedo APRN [address] [place] [address] [address] [place] [address] Referring Physician 02/26/25 Jeannie Mcmillan, RN [facility] [address] [place] [address] Registered Nurse Transplant Surgery 03/08/25 [place] [address] Registered Nurse Transplant Surgery 03/08/25 documented as of this encounter
--- OUTSIDE RECORDS SUMMARY | 2025-04-26 08:59 | XMS_ITS | Encounter Summary ---
Author Organization Healthcare Address [address] [place] [address] Care Team Providers Care Production Artist Name Role Phone LewisIsabella Phong TIN CONTAINER STRAIGHTENER Unavailable [phone] Jeannie Mcmillan RN Unavailable [phone] Ebony Shoemaker Unavailable [phone] Pcp, No Primary Care Provider Unavailabl e Encounter Details Date Type Department Care Team (Latest Contact Info) Description 03/20/2025 Travel Social History Tobacco Use Types Packs/Day Years Used Date Smoking Tobacco: Every Day Cigarettes 0.5 7.7 Started: 2017 Smokeless Tobacco: Never PHQ-2 Answer [...] documented as of this encounter Care Teams Production Artist Relationship Specialty Start Date End Date Pcp, [address] [address] PCP - General Family Medicine 03/20/25 Isabella Saucedo APRN [facility] [address] [place] [address] Referring Physician 02/26/25 Jeannie Mcmillan, RN [facility] [address] [place] [address] Registered Nurse Transplant Surgery 03/08/25 [place] [address] Registered Nurse Transplant Surgery 03/08/25 documented as of this encounter
--- OUTSIDE RECORDS SUMMARY | 2025-04-26 08:59 | XMS_ITS | Encounter Summary ---
Author Organization [place] [address] Care Team Providers Care Drapery Sewer Hand Name Role Phone Jan Sin MD Unavailable [phone] Macario Pryor MD Unavailable Unavailabl e Cr Resendez MD Primary Care Provider [phone] Encounter Details Date Type Department Care Team (Latest Contact Info) Description 04/24/2025 Results Follow-Up SEP Luis [address] [place] [address] Cr Resendez MD [address] [place] [address] [place] [id number] HEMOGLOBIN A1C, COMPREHENSIVE METABOLIC PANEL, CBC WITH DIFF, Additional followed-up results: 3 Social History Tobacco Use Types Packs/Day Years [...] Progress Notes * Cr Resendez MD - 04/24/2025 8:56 AM EDT Thyroid level is normal. Blood counts are normal no anemia, his platelet counts were low but this is chronic and stable related to his liver disease. Cholesterol numbers were overall good. Prostate level was in the normal range. Liver function test were little bit [facility] A1c was slightly elevated in the prediabetic range, no additional follow-up needed for this at this time as it was on the borderline of normal prediabetic. documented in this encounter Plan of Treatment [...] documented as of this encounter Care Teams Drapery Sewer Hand Relationship Specialty Start Date End Date Macairo Pryor MD [address] [place] [address] [place] [id number] PCP - Hematology/Oncology Internal Medicine-Medical Oncology 11/12/15 Cr Resendez MD [address] [place] [address] [place] [address] PCP - General Family Medicine 11/24/21 Jan Sin MD [address] [place] [address] [place] [id number] Internal Medicine-Cardiovascul ar Disease 08/28/14 documented as of this encounter
--- OUTSIDE RECORDS SUMMARY | 2025-04-26 09:00 | XMS_ITS | Encounter Summary ---
Author Organization [facility] Address [address] [place] [address] Care Team Providers Care Underwriting Support Manager Name Role Phone Lewis Isabella Darling ACTION FINISHER Unavailable [phone] Jeannie Mcmillan RN Unavailable [phone] Ebony Shoemaker Unavailable [phone] Pcp, No Primary Care Provider Unavailabl e Rodney Gonzáles MD Unavailable [phone] Reason for Visit * Reason Comments Txp Surgical Follow-up Encounter Details Date Type Department Care Team (Late st Contact Info) Description 04/06/2025 Telephone [facility] [address] [facility] [address] [place] [address] Ebony Shoemaker [place] [phone] Txp Surgical Follow-up Social History Tobacco Use Types Packs/Day Years [...] Notes * Telephone Encounter - Ebony Shoemaker W - 04/10/2025 11:50 AM EDT I spoke with Veronica the telegraph office route aide with Isabella Kitchen' office. She said that Mr. Steward was last seen on 03/22 and had an EGD yesterday. He is on her list to give a call to today for results. She will discuss follow up with him then. I spoke with Ashley this afternoon. She said that Dr. Conner wanted to start Mr. Steward on an appetite stimulant and she wasn't sure if he should take that with his chemotherapy. I let her know that I was happy to reach out to Dr. Gonzáles's office if she like to see if it is okay. She wasn't sure ofthe name when I spoke with her. She is going to figure that out and give me a call back. Megestrol 40 mg/ml once a day. We also discussed the follow up plan with Dr. Do. I let her know that he would review Mr. Steward's 3 month imaging. If he is ready for Y90 at that time, we would get Mr. Steward scheduled with Interventional Radiology here at . She understood. I had to leave a voice message with Dr. Gonzáles's office regarding Mr. Steward's megestrol. I ask themto give me a call back or Ashley with details. I spoke with Ashley to make sure that she was aware. * Telephone Encounter - Ebony Shoemaker - 04/06/2025 1:04 PM EDT Ashley gave me a call this afternoon saying that the oncologist said that Rl needed a follow up with Dr. Do. I let her know that I would discuss follow up with Dr. Do and give her a call back. Mr. Steward is to have updated imaging with Dr. Gonzáles in three months, he just started his chemo. He does not follow with a mini lab operator per Ashley. Added to Dr. Do's discussion list. documented in this encounter Plan of Treatment [...] documented as of this encounter Care Teams Underwriting Support Manager Relationship Specialty Start Date End Date Pcp, [address] [address] PCP - General Family Medicine 03/20/25 Isabella Saucedo APRN [address] [facility] [address] [place] [address] Referring Physician 02/26/25 Jeannie Mcmillan, RN [facility] [address] [place] [address] Registered Nurse Transplant Surgery 03/08/25 [place] [address] Registered Nurse Transplant Surgery 03/08/25 Rodney Gonzáles MD [address] [facility] [address] [place] [address] Medical Oncologist 04/10/25 documented as of this encounter
--- OUTSIDE RECORDS SUMMARY | 2025-04-26 09:00 | XMS_ITS | Clinical Summary ---
Author Organization [facility] Address [address] [facility] [address] [place] [phone] Phone Care Team Providers Care Ship Design Teacher Name Role Phone Leander RIOS, [facility] Conditions or Problems Problem Name Problem Code Onset Date Status Entry Date Provider Comment Standard Description Annotate FOLLOW-UP EXAMINATION FOLLOWING OTHER SURGERY Z09 (ICD-10-CM) 10/20 Active 10/20 Emily Kern MA Encounter for follow-up examination after completed treatment for conditions other than malignant neoplasm BACK PAIN, LUMBAR, WITH RADICULOPATHY [id number] (SNOMED CT) Active Emily Kern MA Lumbar radiculopathy Medications Medication Instructions Start Date Stop Date Generic Name [facility] Provider MELOXICAM 15 MG TABS 1 daily Non-[employer] 8 MELOXICAM 74434081409 Emily Kern MA METOPROLOL TARTRATE 25 MG TABS 1 daily Non-[employer] 8 METOPROLOL TARTRATE [id number] Emily Kern MA PRAVASTATIN SODIUM 40 MG TABS 1 daily Non-[employer] 8 PRAVASTATIN SODIUM 16187272478 Emily Wlisonriccardo WILL PLAVIX 75 MG TABS 1 daily Non-[employer] 8 CLOPIDOGREL BISULFATE [id number] Emily Wilsonriccardo WILL LISINOPRIL 5 MG TABS 1 daily Non-[employer] 8 LISINOPRIL [id number] Emily Wilsonriccardo WILL ASPIRIN ADULT LOW STRENGTH 81 MG TBEC 1 daily Non-[employer] 8 ASPIRIN 41991808618 Emilynathaniel Kern MA ALPRAZOLAM 1 MG TABS 1 qhs Non-[employer] 8 ALPRAZOLAM [id number] Emily Kern MA HYDROCODONE-BRENNAN TAMINOPHEN 10-650 MG ORAL TABLET 1 qid Non-[employer] 8 HYDROCODONE-AC ETAMINOPHEN [id number] Emily Kern MA GABAPENTIN 600 MG TABS 2 q morning & 3 q evening [facility] 8 GABAPENTIN [id number] Emily Kern MA RANEXA 500 MG ORAL TABLET EXTENDED RELEASE 12 HOUR 1 bid [facility] 8 RANOLAZINE [phone] Emily Kern MA Medications Administered No information available. Allergies, Adverse Reactions, Alerts Observed no known allergies at Results Date Name Value Unit Range Flag Description Lab Report: Auto Diff, BMP, CBC MPV 9.4 fL 7.0-12.0 Platelet pacheco n volume [Entitic volume] in Blood by [facility] PLATELET CNT 133 10*3/uL 150-400 L platelet count RDW 14.3 % 11.5-14.5 Erythrocyte distribution width [Ratio] by Automated count MCHC RBC 33.8 g/dL 33.0-36.0 mean corpu scular hemoglobin concentration, RBC MCH 33.6 pg 27.0-33.2 H MCH [Entiti c mass] by Automated count MCV 99.5 fL 80.0-95.8 H MCV [Entiti c volume] by Automated count HCT 40.1 % 40.0-50.2 Hematocrit [Volume Fraction] of Blood by Automated count HGB 13.6 g/dL 13.5-17.1 Hemoglobin [Mass/volume] in Blood RBC _ 4.03 10^6/MICROLI 10*6/uL 4.50-5.90 L erythrocyte coun t, whole blood WBC CT BLOOD 5.3 10*3/uL 4.0-11.0 leukocy te count, blood GFR >^60 mL/min Glomerular fi ltration rate/1.73 sq M.predicted among non-blacks [Volume Rate/Area] in Serum, Plasma or Blood by Creatinine-based formula (MDRD) GFRAA >^60 mL/min Glomerular Fi ltration rate CREATININE 1.1 mg/dL 0.7-1.3 Creatinine [Mass/volume] in Serum or Plasma BUN 14 mg/dL 8-23 Urea nitrogen [Mass/volume] in Serum or Plasma GLUCOSE SER 95 mg/dL 70-100 Glucose [ Mass/volume] in Serum or Plasma CALCIUM 10.0 mg/dL 8.6-10.3 Calcium [Moles/volume] in Serum or Plasma CO2 PLSM/SER 28 MMOL/L meq/L 22-31 carbon dioxide, serum or plasma CL SERUM 101 MMOL/L meq/L 98-108 Chloride [Moles/volume] in Serum or Plasma K SERUM 4.3 MMOL/L meq/L 3.5-5.0 Potassium [Moles/volume] in Serum or Plasma NA 142 MMOL/L meq/L 135-143 Sodium [Mo les/volume] in Serum or Plasma ABSOLUTE BAS 0.0 10*3/uL 0.0-0.2 Basophil s [#/volume] in Blood EOS ABSLT 0.1 10*3/uL 0.1-0.5 Eosinophils [#/volume] in Blood ABSOLUTE MON 0.6 10*3/uL 0.0-1.3 Monocyte s [#/volume] in Blood ABS LYMPHOCY 1.6 10*3/uL 1.0-4.8 Absolute Lymphocytes ABS NEUTROPH 2.9 10*3/uL 1.8-7.7 Neutroph ils [#/volume] in Blood BASOPHIL % 0.5 % 0.0-2.0 Basophils/ 100 leukocytes in Blood by Manual count % EOS AUTO 2.0 % 0.0-6.0 Eosinophil s/100 leukocytes in Blood by Automated count MONOCYTE % 12.1 % 4.0-12.0 H Monocytes /100 leukocytes in Blood by Automated count LYMPHS % 30.9 % 17.0-46.0 Lymphocyte s/100 leukocytes in Blood by Automated count PMN % 54.5 % 40.0-70.0 Neutrophils /100 leukocytes in Blood by Automated count Plan of Care No information available. Procedures No information available. Vital Signs Date Name Value Unit Description BP Diastolic 78 mm[Hg] blood pressu re, diastolic BP Systolic 124 mm[Hg] blood pressur e, systolic Height 68 [in_us] height E&M Weight Measured 160 [lb_av] weight E& M Weight Measured 160 [lb_av] weight E& M Immunizations No information available. Advance Directives No information available.
--- OUTSIDE RECORDS SUMMARY | 2025-04-26 09:01 | XMS_ITS | Clinical Summary ---
[facility] Organization [facility] Address [address] [place] [address] Phone Care Team Providers Care Machine Shorthand Teacher Name Role Phone Jan Sin MD Unavailable [phone] Macario Pryor MD [facility]available [facility] Primary Care Provider [phone] Allergies Active Allergy Reactions Criticality Noted Date Comments Adhesive Rash High 01/06/2024 Adhesive Tape-Silicones 03/08/2012 Tape pulls my skin off. Can only use paper tape Citalopram 12/16/2016 shakes Duloxetine 11/05/2014 Helped cause kidney stone Gabapentin Other (See Comments) Low 03/21/2025 Agitation, irritability Bupropion Hcl 12/16/2016 Nightmares Medications aspirin 81 mg Oral Tablet, Delayed Release (E.C.)Indications: Bradycardia,Tired, ASCVD (arteriosclerotic cardiovascular disease),Essential hypertension,Gener alized anxiety disorder,S/P CABG x 4,Gastroesophageal reflux disease without esophagitis,Thromb ocytopenia,Benign prostatic hyperplasia with lower urinary tract symptoms, unspecified morphology,Fatty liver Take 81 mg by mouth daily. Active fUROsemide (LASIX) 20 mg Oral Tablet Take 20 mg by mouth every other day. 3 times week 01/07/20 24 Active nitroGLYCERIN (NITROSTAT) 0.4 mg SL Tablet, Sublingual Place 0.4 mg under the tongue every 5 minutes as needed. for chest pain. Use up to 3 doses. If no relief, go to ER. 01/10/20 24 Active empagliflozin (JARDIANCE) 10 mg Oral TabletIndications: Chronic systolic congestive heart failure (HCC) Take 1 Tablet by mouth daily. 90 Tablet 3 06/20/20 24 Active escitalopram oxalate (LEXAPRO) 20 mg Oral TabletIndications: Current moderate episode of major depressive disorder without prior episode (HCC) Take 1 Tablet by mouth daily. 90 Tablet 3 09/07/19 25 Active fluticasone-umecli din-vilanter (TRELEGY ELLIPTA) 100-62.5-25 mcg Inhl Disk with DeviceIndications: Chronic bronchitis, unspecified chronic bronchitis type (HCC) Inhale 1 Puff into the lungs daily at 0900. 1 Each 5 09/07/19 25 Active albuterol (PROVENTIL HFA;VENTOLIN HFA) 90 mcg/actuation Inhl HFA Aerosol Inhaler INHALE 2 PUFFS BY MOUTH FOUR TIMES DAILY 25.5 g 09/28/19 25 Active nalOXone (NARCAN) 4 mg/actuation Nasl [place], Non-Aerosol 0.1 mL by Nasal route daily as needed for Opioid Reversal. 2 Each 12/22/19 25 Active clotrimazole (LOTRIMIN) 1 % Top CreamIndications:C andidiasis of penis Apply topically 2 times daily. 24 g 12/28/19 25 Active bisoprolol (ZEBETA) 5 mg Oral Tablet Take 1 Tablet by mouth once daily. 30 Tablet 2 01/13/20 25 Active cyclobenzaprine (FLEXERIL) 5 mg Oral TabletIndications: Muscle spasm Take 1 Tablet by mouth every 8 hours as needed. 60 Tablet 2 02/13/20 25 Active clopidogreL (PLAVIX) 75 mg Oral Tablet Take 1 Tablet by mouth once daily 30 Tablet 03/27/20 25 Active HYDROmorphone (DILAUDID) 4 mg Oral Tablet Take 4 mg by mouth. Active megestroL (MEGACE) 400 mg/10 mL (40 mg/mL) Oral Suspension TAKE 20 ML BY MOUTH ONCE DAILY. SHAKE WELL 04/10/20 25 Active ondansetron (ZOFRAN-ODT) 4 mg Oral Tablet, Rapid Dissolve Dissolve 4 mg by mouth every 6 hours as needed. 03/21/20 25 Active potassium chloride 20 mEq Oral Tablet Sustained Release Take 0.5 Tablets by mouth daily. 03/29/20 Active prochlorperazine (COMPAZINE) 10 mg Oral Tablet Take 10 mg by mouth every 6 hours as needed. for nausea and vomiting 03/27/20 Active senna (SENOKOT) 8.6 mg Oral Tablet Take 17.2 mg by mouth nightly. 03/21/20 Active polyethylene glycol 3350 4 gram Oral Powder in Packet 03/21/20 Active tamsulosin (FLOMAX) 0.4 mg Oral CapsuleIndications :Kidney stones Take 1 Capsule by mouth daily. 90 Capsule 3 08/02/20 025 Discontinue d(Patient Reported not taking medication) coQ10, ubiquinol, 100 mg Oral Capsule 100 mg. 01/11/20 025 Discontinue d(Patient Reported not taking medication) sacubitriL-valsart an (ENTRESTO) 24-26 mg Oral Tablet Take 1 Tablet by mouth twice daily. 200 Tablet 2 08/04/20 24 025 Discontinue d(Patient Reported not taking medication) oxyCODONE 10 mg Oral Tablet TAKE 1 TABLET BY ORAL ROUTE 4 TIMES A DAY FOR 28 DAYS M54.17 09/01/19 25 025 Discontinue d(Patient Reported not taking medication) atorvastatin (LIPITOR) 20 mg Oral TabletIndications: S/P CABG x 4 Take 1 Tablet by mouth nightly. 90 Tablet 3 01/31/20 025 Discontinue d(Patient Reported not taking medication) Active Problems Patient Care Coordination No te Formatting of this note migh t be different from the original. hillary stevens contracts signed 04/19/[address] [facility]05/01/15 #[id number] [facility] 12/12/15 ,02/28/16 [id number],04/09/16 [id number], 11/27/16 [facility] 06/08/14,12/12/15, 10/02/16 Problem Noted Date Diagnosed Date Hepatocellular carcinoma 04/23/2025 Assessment & Plan (04/23/2025 9:20 AM EDT): Under treatment with GI and oncology at [facility]. On once monthly chemotherapy at this time. Planning for follow-up scan in 2 to 3 months. - Given advance care planning packet to complete at home and bring back to the office. Discussed advance care planning in detail at today's visit. All questions answered. Calculus of gallbladder with out cholecystitis without obstruction 01/05/2025 Chronic systolic congestive heart failure 2023 Assessment & Plan (04/23/2025 9:20 AM EDT): Entresto was recently stopped due to side effects of hypotension. Still on SGLT2 and beta-sam. Will consider restarting low-dose ARB in the future if his blood pressure stabilizes Assessment & Plan (12/21/2024 9:37 AM EDT): [...] (12/01/2022): Added automatically from request for surgery [id number] Mixed simple and mucopurulent chronic bronchitis 11/26/2022 Assessment & Plan (04/23/2025 9:20 AM EDT): Stable on Trelegy continue current regiment Assessment & Plan (12/21/2024 9:37 AM EDT): Orders: BASIC METABOLIC PANEL; Future Assessment & Plan (09/07/2024 10:49 AM EST): Orders: xywiechgelh-zbipzygsz-bjfhrnda (TRELEGY ELLIPTA) 100-62.5-25 mcg Inhl Disk with [...] by Redo CABG 6 mo later at [facility] with 4/4/ patent grafts 2010 Unspecified essential hypertension Assessment & Plan (04/23/2025 9:20 AM EDT): Entresto was stopped due to issues with hypotension. Blood pressure is at goal range today. Consider low-dose ARB in the future if his blood pressure tolerates it Orders: HEMOGLOBIN A1C; Future COMPREHENSIVE METABOLIC PANEL; Future TSH REFLEX TO FT4; Future LIPID PANEL REFLEX; Future Assessment & Plan (09/07/2024 10:49 AM [...] coronary angiogram 08/31/201407/04 Overview (08/31/2014): [facility] 10/15/2009 four out of four grafts, [...] Encounters Date Type Department Care Team Description 04/24/2025 Results Follow-Up [facility] [address] [place] [address] Cr Resendez MD HEMOGLOBIN A1C, COMPREHENSIVE METABOLIC PANEL, CBC WITH DIFF, Additional followed-up results: 3 04/23/2025 9:30 AM EDT Clinical Support [address] [place] [address] Elizabeth Reynoso, RN Encounter for support and coordination of transition of care (Primary Dx) 04/23/2025 9:00 AM EDT Office Visit [facility] Luis [address] [place] [address] Cr Resendez MD Encounter for Medicare annual wellness exam (Primary Dx); Hepatocellular carcinoma (HCC); Chronic systolic congestive heart failure (HCC); Mixed simple and mucopurulent chronic bronchitis (HCC); Unspecified essential hypertension; Screening for prostate cancer; Bilateral impacted cerumen 04/19/2025 Patient Outreach [facility] [address] [place], [place] [id number] Cr Resendez MD Central Patient Navigator Outreach (AWV Questionnaire/) 03/26/2025 Refill SEP Luis [address] [place] [address] Cr Resendez MD Medication Refill 02/22/2025 Telephone [facility] [address] [place] [address] Cr Resendez MD Paperwork/forms 02/20/2025 Refill SEP [address] [place] [address] Cr Resendez MD Medication Refill 02/12/2025 Refill SEP [address] [place] [address] Cr Resendez MD Medication Refill 01/29/2025 Refill SEP [facility] [address] [place] [address] Cr Resendez MD Medication Refill 01/25/2025 Telephone [facility] [address] [place] [address] Cr Resendez MD Other (insurance company called asking if office can watch for active patient verification form was rec'd. Please advise.) from Last 3 Months Immunizations Immunization Administration [...] with biopsies; Surgeon: Poppy Quintero MD; Location: [facility]; Service: Endoscopy CARDIAC SURGERY 08/30/2018 - 08/29/2019 [facility] CORONARY ANGIOPLASTY WITH STENT PLACEMENT 01/04/2024 [facility] NECK SURGERY 12/06/2024 [facility] Medical History Medical History Date Comments COPD (chronic obstructive pu lmonary disease) (HCC) Shortness of breath Blood circulation, collateral fe et and hands get cold since cabg CAD (coronary artery disease) Hypertension [place] (myocardial infarction) (HCC) 4 times Arthritis Headache(784.0) Neuromuscular disorder (HCC) [...] Mass Index 20.77 04/23/2025 8:47 AM EDT Plan of Treatment Health Maintenance Due Date Last Done Comments DTaP/TDaP/Td (1 - Tdap) 11/04/1996 11/03/1996 Cologuard 2003 FIT 2003 Sigmoidoscopy 2003 Virtual Colonography 2003 Zoster (1 of 2) 2008 RSV or 60+ (1 - Risk 60-74 years 1-dose series) 2018 COVID-19 Vaccine ( season) 2024 Influenza Vaccine (#1) 2025 , 06/03/2023, 06/11/2021, Additional history exists Low Dose Lung Cancer Screening 03/14/2026 03/14/2025, 11/23/2024, 09/08/2023, Additional history exists Wellness Exam Medicare 04/24/2026 04/23/2025, 2021 Colon Cancer Screening 01/12/2028 Colonoscopy 01/12/2028 01/13/2023, [...] Cheng MD Medical Devices Implanted Type Area Nursing Program Director Device Identifier Shelf Expiration Date Model / Serial / Lot [employer] Vigilant ICD D233 / / [employer] Lead Lead 0675 / / [employer] [place] Lead Lead LPA 1200M / / Spinal Cord Stimulator Lead Description:pt has a retaine d spinal cord stimulator lead. generator was removed about 7-8 years ago per pt. - 09-24-2020 Procedures Procedure Name Priority Date/Time Associated Diagnosis Comments PROSTATE SPECIFIC ANTIGEN (SCREENING) Routine 04/23/2025 9:47 AM EDT Screening for prostate cancer LIPID PANEL REFLEX Routine 04/23/2025 9: 47 AM EDT Encounter for Medicare annual wellness exam Unspecified essential hypertension TSH REFLEX TO FT4 Routine 04/23/2025 9:4 7 AM EDT Encounter for Medicare annual wellness exam Unspecified essential hypertension CBC WITH DIFF Routine 04/23/2025 9:47 AM EDT Encounter for Medicare annual wellness exam COMPREHENSIVE METABOLIC PANEL Routine 04/23/2025 9:47 AM EDT Encounter for Medicare annual wellness exam Unspecified essential hypertension HEMOGLOBIN A1C Routine 04/23/2025 9:47 AM EDT Encounter for Medicare annual wellness exam Unspecified essential hypertension SCANNED LABS 04/07/2025 1:31 PM EDT SCANNED LABS 04/07/2025 1:[address] LUNG CANCER SCREENING LOW DOSE Routine [...] Recently Relevant to Health Maintenance Results * LIPID PANEL REFLEX (04/23/2025 9:47 AM EDT) Cholesterol 98 <200 mg/dL 04/23/2025 4:37 PM EDT [facility] [employer] Comment: < 200 Desirable 200 - 239 Borderline High >= 240 High Triglyceride 38 <150 mg/dL 04/23/2025 4:37 PM EDT [facility] Comment: < 150 Normal 150 - 199 Borderline High 200 - 499 High >= 500 Very High HDL 40 >=40 mg/dL 04/23/2025 4:37 PM EDT [facility] Comment: > 60 Optimal 40 - 60 Acceptable < 40 Low LDL Calculated 47 <100 mg/dL 04/23/2025 4:37 PM EDT [facility] [facility] Comment: < 100 Optimal 100 - 129 Near or above optimal 130 - 159 Borderline High 160 - 189 High >= 190 Very High The National Institutes of Health (NIH) equation is used for all lipid panels that report calculated LDL (LDL-C). Non-HDL-C Calculated 58 <=129 mg/dL 04/23/2025 4:37 PM EDT [facility] [employer] Comment: <130 Desirable 130-159 Above Desirable 160-189 Borderline High 190-219 High >= 220 Very High Fasting Specimen? Yes None 025 4:37 PM EDT [facility] [employer] Blood VENOUS BLOOD / Unknown Venipuncture / Unknown 04/23/2025 9:47 AM EDT 04/23/2025 9:47 AM EDT Cr Resendez MD CHEMISTRY ORDERABLES Final Res ult Performing Organization Address [facility]/ZIP Co de Phone Number [facility] [employer] [address] [place] [address] , [place] [address] * TSH REFLEX TO FT4 (04/23/2025 9:47 AM EDT) TSH Reflex 0.889 0.270 - 4.200 mcIU/mL 04/23/2025 4:37 PM EDT [facility] [employer] Blood VENOUS BLOOD / Unknown Venipuncture / Unknown 04/23/2025 9:47 AM EDT 04/23/2025 9:47 AM EDT Narrative [facility] [employer] - 04/23/2025 4:37 PM EDT Ingestion of fernanda doses of biotin (>5 mg/day) taken within 8 hours of drawing blood sample can interfere with this immunoassay test. Cr Resendez MD CHEMISTRY ORDERABLES Final Res ult Performing Organization Address [facility]/ZIP Co de Phone Number [facility] [facility] [address] [facility] , [place] [address] * PROSTATE SPECIFIC ANTIGEN (SCREENING) (04/23/2025 9:47 AM EDT) Total Psa 0.08 <=4.00 ng/mL 04/23/2025 3:49 PM EDT [facility] Blood VENOUS BLOOD / Unknown Venipuncture / Unknown 04/23/2025 9:47 AM EDT 04/23/2025 9:47 AM EDT Narrative [facility] - 04/23/2025 3:49 PM EDT [...] Resendez MD CHEMISTRY ORDERABLES Final Res ult [facility] [address] [facility] , [place] [address] * (ABNORMAL) CBC WITH DIFF (04/23/2025 9:47 AM EDT) WBC 7.3 3.7 - 10.3 x10(3)/mcL 04/23/2025 4:08 PM EDT [facility] [employer] RBC 4.77 4.60 - 6.10 x10(6)/mcL 04/23/2025 4:08 PM EDT [facility] [employer] [facility] Hgb 15.3 13.7 - 17.5 g/dL 04/23/2025 4:08 PM EDT [facility] [employer] [facility] Hct 46.8 40.0 - 51.0 % 04/23/2025 4:08 PM EDT [facility] [employer] [facility] MCV 98.1 80.0 - 100.0 [...] 4:08 PM EDT [facility] [place] # 1.2(H) 0.3 - 0.9 x10(3)/mcL 04/23/2025 4:08 PM EDT [facility] Eos # Manual 0.0 0.0 - 0.5 x10(3)/mcL 04/23/2025 4:08 PM EDT [facility] Baso # Manual 0.1 0.0 - 0.1 x10(3)/mcL 04/23/2025 4:08 PM EDT [facility] Polychrom Slight 04/23/2025 4:08 PM EDT [facility] Walnut Cell Moderate 04/23/2025 4:08 PM EDT [facility] Elliptocyte Occasional 04/23/2025 4:08 PM EDT [facility] [employer] Target Cell Occasional 04/23/2025 4:08 PM EDT [facility] [employer] Blood VENOUS BLOOD / Unknown Venipuncture / Unknown 04/23/2025 9:47 AM EDT 04/23/2025 9:47 AM EDT Cr Resendez MD HEMATOLOGY ORDERABLES Final Re sult Performing Organization Address [facility] Co de Phone Number [facility] [address] , [place] [address] * (ABNORMAL) HEMOGLOBIN A1C (04/23/2025 9:47 AM EDT) Hgb A1C 5.7(H) 4.2 - 5.6 % 04/23/2025 5:18 PM EDT [facility] Est. Avg Glucose 117 mg/dL 04/23/2025 5:18 PM EDT [facility] Blood VENOUS BLOOD / Unknown Venipuncture / Unknown 04/23/2025 9:47 AM EDT 04/23/2025 9:47 AM EDT Narrative [facility] - 04/23/2025 5:18 PM EDT [...] ORDERABLES Final Res ult Performing Organization Address [facility] Co de Phone Number [facility] [address] , [place] [address] * (ABNORMAL) COMPREHENSIVE METABOLIC PANEL (04/23/2025 9:47 AM EDT) Sodium 142 136 - 145 mmol/L 04/23/2025 4:37 PM EDT [facility] Potassium 3.9 3.5 - [...] 04/23/2025 4:37 PM EDT [facility] Total Protein 8.3 6.4 - [...] mL/min/1.7 3 m2 04/23/2025 4:37 PM EDT [facility] Comment:Estimated GFR was ca lculated using the CKD-EPIcr (2020) equation refit without race. The equation is recommended by the National Kidney Foundation - [place] [employer] Nephrology Task Force. Blood VENOUS BLOOD / Unknown Venipuncture / Unknown 04/23/2025 9:47 AM EDT 04/23/2025 9:47 AM EDT us Cr Resendez MD CHEMISTRY ORDERABLES Final Res ult [facility] [employer] [address] [facility] , [place] [address] * SCANNED LABS (04/07/2025 1:31 PM EDT) Only the most recent of2 resultswithin the time period is included. 04/07/2025 1:31 PM EDT us Unknown Provider HEMATOLOGY ORDERABLES Final Res ult * US AAA SCREENING EXAM MEDICARE (12/16/2023 [...] CLINICAL HISTORY: Z13.6-Encounter for screening for cardiovascular [id number]. COMPARISON: CT abdomen pelvis from 09/07/2023 PROCEDURE COMMENTS: Routine sonographic evaluation of the abdominal aorta with strategic partnership representative images sent to PACS along with operations research manager notes. FINDINGS: The abdominal aorta is normal in caliber. Maximum transverse diameter is 2.4 cm. Atherosclerotic change in the aorta and iliac vessels noted unchanged from the recent CT Procedure Note Cr Ramachandran MD - 12/16/2023 US AAA SCREENING EXAM MEDICARE, 12/16/2023 9:55 AM CLINICAL HISTORY: Z13.6-Encounter for screening for cardiovascular [id number]. COMPARISON: CT abdomen pelvis from 09/07/2023 PROCEDURE COMMENTS: Routine sonographic evaluation of the abdominal aortawith strategic partnership representative images sent to PACS along with operations research manager notes. FINDINGS: The abdominal aorta is [...] the ordering clinician. us Cr Resendez MD [facility] ORDERABLES Final Result * COLONOSCOPY (01/13/2023 1:07 [...] Pena MD Performing Provider Raymond Harris RN Shade Cutter Gurvinder Garner MD Anesthesiologist Mary Jo Romero [...] e Non-Reacti ve 11/24/2021 3:20 PM EDT [facility] Blood VENOUS BLOOD / Unknown Venipuncture / Unknown 11/24/2021 10:38 AM EDT 11/24/2021 10:43 AM EDT Cr Resendez MD HEMATOLOGY ORDERABLES Final Re sult [facility] [address] [facility] [address], [place] [address] from Last 3 Months or Most Recently Relevant to Health Maintenance Insurance [place] [address] [place]ICA[place] [address] [place] [address] [place] Care Teams Machine Shorthand Teacher Relationship Specialty Start Date End Date Macario Pryor MD [address] [place] [address] [place] [id number] PCP - Hematology/Oncology Internal Medicine-Medical Oncology 11/12/15 Cr Resendez MD [address] [place] [address] [place] [address] PCP - General Family Medicine 11/24/21 Jan Sin MD [address] [place] [address] [place] [id number] Internal Medicine-Cardiovascul ar Disease 08/28/14
--- OUTSIDE RECORDS SUMMARY | 2025-04-26 09:01 | XMS_ITS | Encounter Summary ---
Author Organization Healthcare Address [address] [place] [address] Care Team Providers Care Maintenance Mechanic 2Nd Shift Name Role Phone Isabella Saucedo Phong VACUUM SYSTEM TESTER Unavailable [phone] Jeannie Mcmillan RN Unavailable [phone] Ebony Shoemaker Unavailable [phone] Pcp, No Primary Care Provider Unavailabl e Rodney Gonzáles MD Unavailable [phone] Encounter Details Date Type Department Care Team (Late st Contact Info) Description 01/12/2025 Orders Only External Location [address] [place] [address] Provider, External Social History Tobacco Use Types [...] on filedocumented in this encounter Care Teams Maintenance Mechanic 2Nd Shift Relationship Specialty Start Date End Date Pcp, No [address] [place] [address] PCP - General Family Medicine 03/20/25 Isabella Saucedo APRN [address] [facility] [address] [place] [address] Referring Physician 02/26/25 Jeannie Mcmillan, RN [facility] [address] [place] [address] Registered Nurse Transplant Surgery 03/08/25 Ebony Shoemaker [place] [phone] Registered Nurse Transplant Surgery 03/08/25 Rodney Gonzáles MD [address] [facility] [address] [place] [address] Medical Oncologist 04/10/25 documented as of this encounter
--- OUTSIDE RECORDS SUMMARY | 2025-04-26 09:01 | XMS_ITS | Encounter Summary ---
Author Organization Healthcare Address [address] [place] [address] Care Team Providers Care Vibrating Screed Operator Name Role Phone Isabella Saucedo COURIER DELIVERY DRIVER Unavailable [phone] Jaennie Mcmillan RN Unavailable [phone] Ebony Shoemaker Unavailable [phone] Pcp, No Primary Care Provider Unavailabl e Rodney Gonzáles MD Unavailable [phone] Encounter Details Date Type Department Care Team (Late st Contact Info) Description 01/04/2025 Orders Only External Location [address] [place] [address] Provider, External Social History Tobacco Use Types [...] on filedocumented in this encounter Care Teams Vibrating Screed Operator Relationship Specialty Start Date End Date Pcp, No [address] [place] [address] PCP - General Family Medicine 03/20/25 Isabella Saucedo APRN 12[address] [facility] [address] [place] [address] Referring Physician 02/26/25 Jeannie Mcmillan, RN [facility] [address] [place], [place] [phone] Registered Nurse Transplant Surgery 03/08/25 Ebony Shoemaker [place] [phone] Registered Nurse Transplant Surgery 03/08/25 Rodney Gonzáles MD 1210 [facility] [address], [place] [address] Medical Oncologist 04/10/25 documented as of this encounter
--- OUTSIDE RECORDS SUMMARY | 2025-04-26 09:01 | XMS_ITS | Encounter Summary ---
Author Organization Healthcare Address [address] [place] [address] Care Team Providers Care Laborer Tan House Name Role Phone Isabella Saucedo CERTIFIED CODER Unavailable [phone] Jeannie Mcmillan RN Unavailable [phone] Ebony Shoemaker Unavailable [phone] Pcp, No Primary Care Provider Unavailabl e Rodney Gonzáles MD Unavailable [phone] Reason for Referral * Transplant (Routine) - Authorized Specialty Diagnoses / Procedures Referred By Contac t Referred To Contact Transplant Surgery / Transplant Diagnoses Invasion of liver, gallbladder, pancreas, ipsilateral branch of portal vein, 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 Hepatic cirrhosis, unspecified hepatic cirrhosis type, unspecified whether ascites present (CMS/HCC) Isabella Saucedo APRN [address] [place] [address] Phone: tel: fax: Referral ID Status Reason Start Date Expiration Date Visits Requested Visits Authorized [id number] Authorized Specialty Services Required 02/26/[phone] Encounter Details Date Type Department Care Team (Late st Contact Info) Description 02/26/2025 Community [facility] [address] [place] [address] Isabella Saucedo APRN [address] [place] [address] Invasion of liver, gallbladder, pancreas, ipsilateral branch [...] (CMS/HCC) documented in this encounter Care Teams Laborer Tan House Relationship Specialty Start Date End Date Pcp, No [address] [place] [address] PCP - General Family Medicine 03/20/25 Isabella Saucedo APRN 1210 [facility] [address] [place] [address] Referring Physician 02/26/25 Jeannie Mcmillan, RN [facility] [address] [place] [address] Registered Nurse Transplant Surgery 03/08/25 [place] [address] Registered Nurse Transplant Surgery 03/08/25 Rodney Gonzáles MD 1210 [facility] [address] [place] [address] Medical Oncologist 04/10/25 documented as of this encounter
--- OUTSIDE RECORDS SUMMARY | 2025-04-26 09:01 | XMS_ITS | Clinical Summary ---
Author Organization [facility] Address [facility] [place] [address] Care Team Providers Care An Employee Sponsor Or Advocate And Name Role Phone Cr Resendez MD Primary Care Provider [phone] Source Comments This information has been disclosed [...] therelease of HIV test results or diagnoses. [id number] Health Allergies Active Allergy Reactions Criticality Noted [...] PM EDT Active naloxone (NARCAN) 4 mg/actuation [place] Apply 1 spray in one nostril if [...] by Redo CABG 6 mo later at [facility] with grafts 2010 Encounters Date Type Department Care Team Description 01/24/2025 Chart Note [facility] Interventional Pulmonary at [facility] [address] [place] [id number] Elizabeth Tabor, NIURKA Chart Note: Incidental Findings from Last 3 Months Social History Tobacco Use Types Packs/Day Years Used Date Smoking Tobacco: Some Days Cigarettes Passive Smoke Exposure: Current Tobacco Cessation:Ready to Q uit: Not Asked; Counseling Given: Not Answered Utilities Answer Date Recorded In the past 12 months has th [facility], gas, oil, or water [employer] threatened to shut off services in your [...] any time in the past [address] [facility], were you homeless or living in a long term (including now)? Patient declined 12/07/2024 Sex and [...] 05/08/2019, 07/18/2012 Medical Devices Implanted Type Area Puppy Sitter Device Identifier Shelf Expiration Date Model / Serial / Lot Cage Spnl 6mm 8d Sm Eit Crv Intrbd Fs Strl Lf - [id number] Implanted:Qty: 1 on 12/11/2024 by Nayan Mayo MD at [facility] Cage N/A: Spine Cervical DEPUY SPINE 02/26/2026 [id number] / / Graft Bn Bn Fbr 1cc Algrf Frzdr Pliafx Prm - [id number] Implanted:Qty: 1 on 12/11/2024 by Nayan Mayo MD at [facility] Graft N/A: Spine Cervical LIFE NET 02/21/2028 BL-[id number] 1 / [id number] / Icd ICD [employer] D233 / / Description:St Chava RA: [id number] 200M RV: 0656 NOT MR CONDITIONAL OF 12/07/2024 - 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 SCS Plate Bone [place] Titanium 14 Mm Prebent L12 Mm X W16 Mm X H2.5 Mm Spine Cervical Anterior 1 Level Nonsterile - [id number] Implanted:Qty: 1 on 12/11/2024 by Nayan Mayo MD at [facility] Plate N/A: Spine Cervical DEPUY SPINE 1868-01-0 12 / / Screw Bone [place] Titanium L16 Mm Od4 Mm Spine Cervical Anterior Variable Self Drill Nonsterile - [id number] Implanted:Qty: 4 on 12/11/2024 by Nayan Mayo MD at [facility] Screw N/A: Spine Cervical DEPUY SPINE 1868-50-0 16 / / Procedures Procedure Name Priority Date/Time Associated Diagnosis Comments RENAL FUNCTION PANEL W/EGFR Routine 12/14/2024 7:00 AM EDT from Last 3 Months or Most Recently Relevant to Health Maintenance Results * (ABNORMAL) Renal Function Panel w/EGFR (12/14/2024 [...] LAB EGFR >90 12/14/2024 7:50 AM EDT HEALTH LAB Comment: As of 2021, the estimated [...] EDT Kavitha Landry MD LAB BLOOD ORDERABLES nal Result [facility] [address] [place] [address], [facility] from Last 3 Months or Most Recently Relevant to Health Maintenance Insurance MEDICARE A AND B Member Subscriber Plan / Payer (Ef fective 1999-Present) Name:Rl Steward Relation to Subscriber:Self Name:Rl Steward Payer ID:[id number] Group ID:Not on file Type:Medicare Address: [facility] [id number] [place] [id number] MEDICAID [place] Member Subscriber Plan / Payer (Ef fective 2024-Present) Name:Rl Steward Relation to Subscriber:Self Name:Rl Steward Payer ID:[id number] Group ID:Not on file Type:Medicaid Address: [address] MEDICAID DENTAL Advance Directives For more information, please contact: [phone] * Full Code (Latest Code Status on File) Date Activated Date Inactivated Comments 12/07/2024 12:02 AM 12/14/2024 8:22 PM Care Teams An Employee Sponsor Or Advocate And Relationship Specialty Start Date End Date Cr Resendez MD [address] [place] [address] [place] [address] PCP - General Family Medicine 12/07/24
--- OUTSIDE RECORDS SUMMARY | 2025-04-26 09:01 | XMS_ITS | Encounter Summary ---
Author Organization [facility] Address [address] [place] [address] Care Team Providers Care Metal Storage Worker Name Role Phone Isabella Saucedo SCALER Unavailable [phone] Jeannei Mcmillan RN Unavailable [phone] Ebony Shoemaker Unavailable [phone] Encounter Details Date Type Department Care [...] on filedocumented in this encounter Care Teams Metal Storage Worker Relationship Specialty Start Date End Date Isabella Saucedo APRN [address] [place] [address] Referring Physician 02/26/25 Jeannie Mcmillan, RN [facility] [address] [place] [address] Registered Nurse Transplant Surgery 03/08/25 [place] [address] Registered Nurse Transplant Surgery 03/08/25 documented as of this encounter
--- OUTSIDE RECORDS SUMMARY | 2025-04-26 09:01 | XMS_ITS | Encounter Summary ---
Author Organization [facility] Address [address] [place] [address] Care Team Providers Care Cross Country Truck Driver Name Role Phone Isabella Saucedo END USER CONSULTANT Unavailable [phone] Reason for Visit * Reason Comments Referral - Liver Txp Encounter Details Date Type Department Care Team (Late st Contact Info) Description 02/26/2025 Telephone [facility] Transplant Center [address] [facility] [address] [place] [phone] Angelita Reeves [place] [phone] Referral - Liver Txp Social History Tobacco [...] Venous blood specimen / Unknown 01/04/2025 Result [facility] Provider LAB BLOOD ORDERABLES Final R esult * Sodium, Plasma (01/04/2025) External Sodium 140 mmol/L Blood Venous blood specimen / Unknown 01/04/2025 Result [facility] LAB BLOOD ORDERABLES Final R esult * Creatinine, Plasma (01/04/2025) External Creatinine Blood 0.70 mg/dL Blood Venous blood specimen / Unknown 01/04/2025 Result [facility] Provider LAB BLOOD ORDERABLES Final R esult * Total Bilirubin, Plasma (01/04/2025) External Bilirubin Total 1.3 mg/dL Blood Venous blood specimen / Unknown 01/04/2025 Result [facility] LAB BLOOD ORDERABLES Final R esult * Albumin, Plasma (01/04/2025) External Albumin 3.4 g/dL Blood Venous blood specimen / Unknown 01/04/2025 Result [facility] LAB BLOOD ORDERABLES Final R esult documented in this encounter Visit Diagnoses Not on filedocumented in this encounter Care Teams Cross Country Truck Driver Relationship Specialty Start Date End Date Isabella Saucedo APRN [address] [place] [address] Referring Physician 02/26/25 documented as of this encounter
--- OUTSIDE RECORDS SUMMARY | 2025-04-26 09:01 | XMS_ITS | Encounter Summary ---
Author Organization Healthcare Address [address] [place] [address] Care Team Providers Care Admitting Supervisor Name Role Phone Isabella Saucedo HOME ENERGY RATER Unavailable [phone] Jeannie Mcmillan RN Unavailable [phone] Ebony Shoemaker Unavailable [phone] Pcp, No Primary Care Provider Unavailabl e Rodney Gonzáles MD Unavailable [phone] Encounter Details Date Type Department Care Team (Late st Contact Info) Description 12/07/2024 Orders Only External Location [address] [place] [address] Provider, External Social History Tobacco Use Types [...] on filedocumented in this encounter Care Teams Admitting Supervisor Relationship Specialty Start Date End Date Pcp, No [address] [place] [address] PCP - General Family Medicine 03/20/25 Isabella Saucedo APRN 1210 [facility] [address] [place] [address] Referring Physician 02/26/25 Jeannie Mcmillan, RN [facility] [address] [place] [address] Registered Nurse Transplant Surgery 03/08/25 [place] [address] Registered Nurse Transplant Surgery 03/08/25 Rodney Gonzáles MD 1210 [facility] [address] [place] [address] Medical Oncologist 04/10/25 documented as of this encounter
--- OUTSIDE RECORDS SUMMARY | 2025-04-26 09:01 | XMS_ITS | Encounter Summary ---
Author Organization [facility] Address [address] [place] [address] Care Team Providers Care Warehouse Checker Name Role Phone Isabella Saucedo Phong GRAVE CLEANER Unavailable [phone] Jeannie Mcmillan RN Unavailable [phone] Ebony Shoemaker Unavailable [phone] Reason for Referral * Consultation (Routine) - Authorized Specialty Diagnoses / Procedures Referred By Contac t Referred To Contact Medical Oncology Diagnoses Elevated AFP Liver lesion Peter Do MD [address] [address] Phone: tel: fax: Referral ID Status Reason Start Date Expiration Date Visits Requested Visits Authorized [id number] Authorized Consult and Treat 03/16/2025 09/15/2026 1 1 Reason for Visit * Reason Comments Txp Surgical Follow-up Ernestina: Tumor Boar d Discussion 03/16/25 Encounter Details Date Type Department Care Team (Late st Contact Info) Description 03/16/2025 Telephone [facility] Transplant Center [address] [address] [place] [address] Txp Surgical Follow-up (Ernestina: Tumor [...] documented as of this encounter Care Teams Warehouse Checker Relationship Specialty Start Date End Date Isabella Saucedo APRN [address] [place] [address] Referring Physician 02/26/25 Jeannie Mcmillan, RN [facility] [address] [place], [place] [address] Registered Nurse Transplant Surgery 03/08/25 Ebony Shoemaker [place] [id number] Registered Nurse Transplant Surgery 03/08/25 documented as of this encounter
--- OUTSIDE RECORDS SUMMARY | 2025-04-26 09:01 | XMS_ITS | Encounter Summary ---
Author Organization Healthcare Address [address] [place] [address] Care Team Providers Care Resident Services Director Name Role Phone Isabella Saucedo APRN Unavailable [phone] Jeannie Mcmillan RN Unavailable [phone] Ebony Shoemaker Unavailable [phone] Pcp, No Primary Care Provider Unavailabl e Rodney Gonzáles MD Unavailable [phone] Reason for Referral * Consultation (Routine) - Authorized Specialty Diagnoses / Procedures Referred By Contarjun t Referred To Contact Hematology and Oncology Diagnoses Elevated alpha fetoprotein Liver tumor Isabella Saucedo APRN [address] [place] [address] Phone: tel: fax: Referral ID Status Reason Start Date Expiration Date Visits Requested Visits Authorized [id number] Authorized Specialty Services Required 02/20/2025 08/22/2026 1 1 Encounter Details Date Type Department Care Team (Late st Contact Info) Description 02/19/2025 Community [facility] Community Practice [address] [place] [address] Isabella Saucedo APRN [address] [place] [address] Elevated alpha fetoprotein (Primary Dx); Liver tumor [...] system documented in this encounter Care Teams Resident Services Director Relationship Specialty Start Date End Date Pcp, No [address] [place] [address] PCP - General Family Medicine 03/20/25 Isabella Saucedo APRN 1210 [facility] [address] [place] [address] Referring Physician 02/26/25 Jeannie Mcmillan, RN [facility] [address] [place] [address] Registered Nurse Transplant Surgery 03/08/25 Ebony Shoemaker [place] [id number] Registered Nurse Transplant Surgery 03/08/25 Rodney Gonzáles MD 1210 [facility] [address] [place] [address] Medical Oncologist 04/10/25 documented as of this encounter
--- OUTSIDE RECORDS SUMMARY | 2025-04-26 09:01 | XMS_ITS | Encounter Summary ---
Author Organization [facility] Address [address] [place] [address] Care Team Providers Care Shafting Worker Name Role Phone Isabella Saucedo MANAGER PHP Unavailable [phone] Reason for Referral * Consultation (Routine) - Closed Specialty Diagnoses / Procedures Referred By Contac t Referred To Contact Transplant Diagnoses Elevated AFP Liver lesion Hepatic cirrhosis, unspecified hepatic cirrhosis type, unspecified whether ascites present (CMS/HCC) Isabella Saucedo APRN 1210 [facility] [address] [place] [address] Phone: tel: fax: [facility] Transplant Center [address] [address] Phone: tel: fax: Referral ID Status Reason Start Date Expiration Date V isits Requested Visits Authorized [id number] Closed Specialty Services Required 03/06/2025 09/05/2026 1 1 Encounter Details Date Type Department Care Team (Late st Contact Info) Description 03/06/2025 Telephone [facility] Transplant Center [address] [address] Cici Ramírez [place] [phone] Social History Tobacco Use Types Packs/Day Years [...] LAB COAGULATION METHOD 03/14/2025 9:44 AM EDT [facility] INR 1.0 0.9 - 1.1 LAB COAGULATION METHOD 03/14/2025 9:44 AM EDT [facility] Blood Venous blood specimen / Unknown Venipuncture / Unknown 03/14/2025 8:38 AM EDT 03/14/2025 9:03 AM EDT Narrative [facility] - 03/14/2025 9:44 AM EDT OPTIMAL INR RANGES FOR PATIENT ON ORAL ANTICOAGULANT THERAPY Prevention of venous thromboembolism INR 2.0 to 3.0 In patients with heart disease: Atrial fibrillation INR 2.0 to 3.0 Valvular heart disease INR 2.0 to 3.0 Tissue heart valves INR 2.0 to 3.0 Mechanical prosthetic valves INR 2.5 to 3.5 Prevention of recurrent DC INR 2.5 to 3.5 Peter Do MD LAB BLOOD ORDERABLES Final Result [facility] [address] [place] [address] * (ABNORMAL) CBC w/o differential (03/14/2025 8:38 AM EDT) WBC Count 5.56 3.70 - 10.30 10*3/uL LAB HEMATOLOGY METHOD 03/14/2025 9:51 AM EDT [facility] RBC Count 4.98 4.60 - 6.10 10*6/uL LAB HEMATOLOGY METHOD 03/14/2025 9:51 AM EDT [facility] HGB 15.9 13.7 - 17.5 g/dL LAB HEMATOLOGY METHOD 03/14/2025 9:51 AM EDT [facility] HCT 48.7 40.0 - 51.0 % LAB HEMATOLOGY METHOD 03/14/2025 9:51 AM EDT [facility] Platelet Count 96(L) 155 - 369 10*3/uL LAB HEMATOLOGY METHOD 03/14/2025 9:51 AM EDT [facility] MCV 98 79 - 98 fL LAB HEMATOLOGY METHOD 03/14/2025 9:51 AM EDT [facility] MCH 31.9 26.0 - 32.0 pg LAB HEMATOLOGY METHOD 03/14/2025 9:51 AM EDT [facility] MCHC 32.6 30.7 - 35.5 g/dL LAB HEMATOLOGY METHOD 03/14/2025 9:51 AM EDT [facility] RDW 17.2(H) 11.5 - 14.5 % LAB HEMATOLOGY METHOD 03/14/2025 9:51 AM EDT [facility] MPV 11.0 8.8 - 12.5 fL LAB HEMATOLOGY METHOD 03/14/2025 9:51 AM EDT [facility] nRBC 0.0 <=0.0 per 100 WBCs LAB HEMATOLOGY METHOD 03/14/2025 9:51 AM EDT [facility] Blood Venous blood specimen / Unknown Venipuncture / Unknown 03/14/2025 8:38 AM EDT 03/14/2025 9:03 AM EDT us Peter Do MD LAB BLOOD ORDERABLES Final Result [facility] [address] [place] [address] * (ABNORMAL) Comprehensive Metabolic Panel (03/14/2025 8:38 AM EDT) Glucose, Plasma 104(H) 74 - 99 mg/dL 03/14/2025 9:30 AM EDT [facility] BUN, Plasma 12 8 - 23 mg/dL 03/14/2025 9:30 AM EDT [facility] Creatinine, Plasma 0.80 0.70 - 1.20 mg/dL 03/14/2025 9:30 AM EDT [facility] BUN/Creatinine Ratio 15 03/14/2025 9:30 AM EDT [facility] Sodium, Plasma 142 136 - 145 mmol/L 03/14/2025 9:30 AM EDT [facility] Potassium, Plasma 3.8 3.6 - 4.9 mmol/L 03/14/2025 9:30 AM EDT [facility] Chloride, Plasma 102 97 - 107 mmol/L 03/14/2025 9:30 AM EDT [facility] CO2, Plasma 28 22 - 29 mmol/L 03/14/2025 9:30 AM EDT [facility] Anion Gap 12 6 - 16 mmol/L 03/14/2025 9:30 AM EDT [facility] Total Calcium, Plasma 9.8 8.9 - 10.2 mg/dL 03/14/2025 9:30 AM EDT [facility] Total Protein 8.0(H) 6.3 - 7.9 g/dL 03/14/2025 9:30 AM EDT [facility] Albumin, Plasma 4.2 3.5 - 5.2 g/dL 03/14/2025 9:30 AM EDT [facility] AST, Plasma 78(H) 10 - 50 U/L 03/14/2025 9:30 AM EDT [facility] ALT, Plasma 50 10 - 50 U/L 03/14/2025 9:30 AM EDT [facility] Alkaline Phosphatase, Plasma 210(H) 40 - 115 U/L 03/14/2025 9:30 AM EDT [facility] Total Bilirubin, Plasma 0.8 0.2 - 1.1 mg/dL 03/14/2025 9:30 AM EDT [facility] eGFRcr 97.6 mL/min/1.7 3m*2 03/14/2025 9:30 AM EDT [facility] Comment:Reported eGFRcr in m L/min/1.73m2 is based the CKD-EPI 2020 equation that does not use a race coefficient. Blood Venous blood specimen / Unknown Venipuncture / Unknown 03/14/2025 8:38 AM EDT 03/14/2025 9:03 AM EDT Peter Do MD LAB BLOOD [place] [address] * (ABNORMAL) CEA, Serum (03/14/2025 8:38 AM EDT) CEA, Serum 5.2(H) <4.0 ng/mL 03/14/2025 10:22 AM EDT [facility] Blood Venous blood specimen / Unknown Venipuncture / Unknown 03/14/2025 8:38 AM EDT 03/14/2025 9:03 AM EDT Narrative [facility] - 03/14/2025 10:22 AM EDT Normal range for smokers: < 5.5 ng/ml Normal range for non-smokers: <=4.0 ng/ml Performed by Ricky electrochemiluminescent immunoassay. Results obtained with different test methods or kits cannot be used interchangeably. Peter Do MD LAB BLOOD ORDERABLES Final Result Performing Organization Address [facility] [place] [address] * Cancer Antigen, GI (CA 19.9) (03/14/2025 8:38 AM EDT) CA 19.9 26.5 <36 U/mL 03/14/2025 10:22 AM EDT [facility] Blood Venous blood specimen / Unknown Venipuncture / Unknown 03/14/2025 8:38 AM EDT 03/14/2025 9:03 AM EDT Narrative [facility] - 03/14/2025 10:22 AM EDT Performed by Ricky electrochemiluminescent immunoassay. Results obtained with different test methods or kits cannot be used interchangeably. Peter Do MD LAB BLOOD ORDERABLES Final Result [facility] [address] [place] [address] * (ABNORMAL) Alpha Fetoprotein, Serum (03/14/2025 8:38 AM EDT) Alpha Fetoprotein, Serum 1,098.0(H) <10.0 ng/mL 03/14/2025 10:22 AM EDT [facility] Blood Venous blood specimen / Unknown Venipuncture / Unknown 03/14/2025 8:38 AM EDT 03/14/2025 9:03 AM EDT Narrative [facility] - 03/14/2025 10:22 AM EDT Performed by Ricky electrochemiluminescent immunoassay which is traceable to the 1st AFP IRP WHO Reference standard 72/255. Results obtained with different test methods or kits cannot be used interchangeably. us Peter Do MD LAB BLOOD ORDERABLES Final Result [facility] [address] [place] [address] documented in this encounter Visit Diagnoses Diagnosis Liver lesion- Primary Other specified disorders of liver Elevated AFP Other nonspecific findings on examination of blood Hepatic cirrhosis, unspecified hepatic cirrhosis type, unspecified whether ascites present (CMS/HCC) Other abnormal tumor markers documented in this encounter Care Teams Shafting Worker Relationship Specialty Start Date End Date Isabella Saucedo APRN [address] [place] [address] Referring Physician 02/26/25 documented as of this encounter
--- OUTSIDE RECORDS SUMMARY | 2025-04-26 09:01 | XMS_ITS | Encounter Summary ---
Author Organization Healthcare Address [address] [place] [address] Care Team Providers Care Order Taker Name Role Phone Isabella Saucedo ELIGIBILITY COUNSELOR Unavailable [phone] Jeannie Mcmillan RN Unavailable [phone] Ebony Shoemaker Unavailable [phone] Pcp, No Primary Care Provider Unavailabl e Rodney Gonzáles MD Unavailable [phone] Encounter Details Date Type Department Care Team (Late st Contact Info) Description 01/12/2025 Orders Only External Location [address] [place] [address] Provider, External Social History Tobacco Use Types [...] on filedocumented in this encounter Care Teams Order Taker Relationship Specialty Start Date End Date Pcp, No [address] [place] [address] PCP - General Family Medicine 03/20/25 Isabella Saucedo APRN 1210 [facility] [address] [place] [address] Referring Physician 02/26/25 Jeannie Mcmillan, RN [facility]MINISTRATION [address] [place], [place] [address] Registered Nurse Transplant Surgery 03/08/25 Ebony Shoemaker [place] [id number] Registered Nurse Transplant Surgery 03/08/25 Rodney Gonzáles MD 1210 [facility] [address] [place] [place] [address] Medical Oncologist 04/10/25 documented as of this encounter
--- OUTSIDE RECORDS SUMMARY | 2025-04-26 09:01 | XMS_ITS | Encounter Summary ---
Author Organization [facility] Address [address] [place] [address] Care Team Providers Care Group Work Program Aide Name Role Phone Isabella Saucedo QUEEN'S COUNSEL Unavailable [phone] Reason for Referral * Consultation (Routine) - Pending Review Specialty Diagnoses / Procedures Referred By Contac t Referred To Contact Transplant Diagnoses End-stage liver disease (CMS/HCC) Haroon Cannon MD [address] [address] Phone: tel: fax: [facility] [place] [address] [address] Phone: tel: fax: Referral ID Status Reason Start Date Expiration Date Visits Requested Visits Authorized [id number] Pending Review Specialty Services Required 03/06/2025 09/05/2026 1 1 Reason for Visit * Reason Comments Appointment Encounter Details Date Type Department Care Team (Late st Contact Info) Description 03/06/2025 Telephone [facility] [place] [address] [address] [place] [address] Appointment Social History Tobacco Use [...] name and contact information. Invite sent to PingMe via text message. Called referring providers office, [...] disease documented in this encounter Care Teams Group Work Program Aide Relationship Specialty Start Date End Date Isabella Saucedo APRN [address] [place] [address] [place] [address] Referring Physician 02/26/25 documented as of this encounter
--- OUTSIDE RECORDS SUMMARY | 2025-04-26 09:01 | XMS_ITS | Encounter Summary ---
Author Organization [facility] Address [address] [place] [address] Care Team Providers Care Burning Supervisor Name Role Phone Isabella Saucedo COMPUTER CLERK Unavailable [phone] Jeannie Mcmillan RN Unavailable [phone] [address] Shoemaker Unavailable [phone] Reason for Referral * Imaging (Routine) - Closed Specialty Diagnoses / Procedures Referred By Contac t Referred To Contact Radiology Diagnoses Elevated AFP Liver lesion Hepatic cirrhosis, unspecified hepatic cirrhosis type, unspecified whether ascites present (CMS/HCC) Procedures CT CHEST WO IV CONTRAST Peter Do MD [address] [facility] [address] [place] [phone] Phone: tel: fax: Referral ID Status Reason Start Date Expiration Date Visits Re quested Visits Authorized [id number] Closed 03/14/2025 09/13/2026 1 1 Encounter Details Date Type Department Care Team (Late st Contact Info) Description 03/14/2025 Orders Only [facility] [address] [facility] [address] [place] [address] [place] [address] Liver lesion (Primary Dx); Elevated [...] documented as of this encounter Care Teams Burning Supervisor Relationship Specialty Start Date End Date Isabella Saucedo APRN [address] [place] [address] Referring Physician 02/26/25 Jeannie Mcmillan, RN [facility] [address] [place] [address] Registered Nurse Transplant Surgery 03/08/25 Ebony Shoemaker [place] [phone] Registered Nurse Transplant Surgery 03/08/25 documented as of this encounter
--- OUTSIDE RECORDS SUMMARY | 2025-04-26 09:01 | XMS_ITS | Clinical Summary ---
Author Organization Healthcare [place] [address] Care Team Providers Care Curtain Mender Name Role Phone Isabella Saucedo Phong FEATHER BALER Unavailable [phone] Jeannie Mcmillan RN Unavailable [phone] Ebony Shoemaker Unavailable [phone] Pcp, No Primary Care Provider Unavailabl e Rodney Gonzáles MD Unavailable [phone] Allergies Active Allergy Reactions Criticality Noted Date [...] or heartburn. 30 tablet 03/21/20 25 Active Active Problems Problem Noted Date Diagnosed Date Hepatocellular carcinoma 03/20/2025 Encounters Date Type Department Care Team Description 04/06/2025 Telephone [facility] [address] [place] [address] Ebony Shoemaker Txp Surgical Follow-up 03/20/2025 4:39 PM EDT - 03/21/2025 6:51 PM EDT Hospital Encounter [facility] Inpatient [address] [place] [address] Saleh, Clotilde EMD Deuce Patricia Therese A, MD Sayers, Anne E, MD Epigastric pain (Primary Dx); Hepatocellular carcinoma; Alcoholic cirrhosis of liver without ascites (CMS/HCC) Discharge Disposition: Home or Self Care 03/20/2025 Travel 03/20/2025 Orders Only External Location [address] [place] [address] Provider, External 03/20/2025 Orders Only External Location [address] [place] [address] Provider, External 03/20/2025 Orders Only External Location [address] [place] [address] Provider, External 03/16/2025 Telephone [facility] [address] [place] [phone] Ebony Shoemaker Txp Surgical Follow-up (Ernestina: Tumor Board Discussion 03/16/25) 03/14/2025 11:20 AM EDT - 03/14/2025 11:59 PM EDT Hospital Encounter [facility] [address] [place] [address] Elevated AFP; Liver lesion; Hepatic cirrhosis, unspecified hepatic cirrhosis type, unspecified whether ascites present (CMS/HCC) Discharge Disposition: Home or Self Care 03/14/2025 10:00 AM EDT Office Visit [facility] [place] [address] [address] Peter Do MD HCC (hepatocellular carcinoma) (Primary Dx) 03/14/2025 Orders Only [facility] [address] [place] [address] Ebony Shoemaker Liver lesion (Primary Dx); Elevated AFP; Hepatic cirrhosis, unspecified hepatic cirrhosis type, unspecified whether ascites present (CMS/HCC) 03/14/2025 Travel 03/10/2025 Travel 03/07/2025 Travel 03/06/2025 Telephone [facility] Transplant [place] [address] [address] Cici Ramírez 03/06/2025 Telephone [facility] [address] [place] [address] Angelita Reeves Appointment 03/05/2025 Telephone [facility] [address] [place] [address] Angelita Reeves Appointment 02/26/2025 Telephone [facility] [address] [place] [address] Angelita Reeves Referral - Liver Txp 02/26/2025 [facility] [address] [place] [address] Isabella Saucedo APRN Invasion of liver, gallbladder, pancreas, ipsilateral branch of portal vein, 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) (Primary Dx); Elevated alpha fetoprotein; Hepatic cirrhosis, unspecified hepatic cirrhosis type, unspecified whether ascites present (CMS/HCC) 02/19/2025 [facility] [address] [place] [address] Isabella Saucedo APRN Elevated alpha fetoprotein (Primary Dx); Liver tumor 02/09/2025 11:02 AM EDT - 02/09/2025 11:59 PM EDT Hospital Encounter [facility] [address] [place] [address] Abnormality of alphafetoprotein; Other specified abnormal findings of blood chemistry; Unspecified cirrhosis of liver (CMS/HCC) Discharge Disposition: Home or Self Care 02/09/2025 Travel from Last 3 Months Social History Tobacco Use Types Packs/Day Years Used Date Smoking Tobacco: Every Day Cigarettes 0.5 7.7 Started: 2018 Smokeless Tobacco: Never Tobacco Cessation:Ready [...] Health Maintenance Due Date Last Done Comments [facility]-/Child/Adol SDOH Screenings 1960 BED-MGSVH-50 Vaccine (#1) 1963 [facility]- SDOH Screenings 1976 [...] CT CHEST WO IV CONTRAST Routine 03/14/20 11:30 AM EDT Elevated AFP Liver lesion [...] blood chemistry Unspecified cirrhosis of liver (CMS/HCC) from Last 3 Months Results * PT/INR (03/21/2025 6:32 AM EDT) Only the most recent of3 resultswithin the time period is included. Prothrombin Time 13.8 12.0 - 14.3 sec LAB COAGULATION METHOD 03/21/2025 7:00 AM EDT [facility] INR 1.1 0.9 - 1.1 LAB COAGULATION METHOD 03/21/2025 7:00 AM EDT [facility] Blood Venous blood specimen / Unknown Venipuncture / Unknown 03/21/2025 6:32 AM EDT 03/21/2025 6:43 AM EDT Narrative [facility] - 03/21/2025 7:00 AM EDT OPTIMAL INR RANGES FOR PATIENT ON ORAL ANTICOAGULANT THERAPY Prevention of venous thromboembolism INR 2.0 to 3.0 In patients with heart disease: Atrial fibrillation INR 2.0 to 3.0 Valvular heart disease INR 2.0 to 3.0 Tissue heart valves INR 2.0 to 3.0 Mechanical prosthetic valves INR 2.5 to 3.5 Prevention of recurrent MN INR 2.5 to 3.5 us Leelee Tripathi MD LAB BLOOD ORDERABLE S Final Result [facility] [address] [place] [address] * (ABNORMAL) CBC and Differential (03/21/2025 6:32 AM EDT) Only the most recent of2 resultswithin the time period is included. WBC Count 6.12 3.70 - 10.30 10*3/uL LAB HEMATOLOGY METHOD 03/21/2025 6:58 AM EDT [facility] RBC Count 4.62 4.60 - 6.10 10*6/uL LAB HEMATOLOGY METHOD 03/21/2025 6:58 AM EDT [facility] HGB 15.2 13.7 - 17.5 g/dL LAB HEMATOLOGY METHOD 03/21/2025 6:58 AM EDT [facility] HCT 45.4 40.0 - 51.0 % LAB HEMATOLOGY METHOD 03/21/2025 6:58 AM EDT [facility] Platelet Count 82(L) 155 - 369 10*3/uL LAB HEMATOLOGY METHOD 03/21/2025 6:58 AM EDT [facility] MCV 98 79 - 98 fL LAB HEMATOLOGY METHOD 03/21/2025 6:58 AM EDT [facility] MCH 32.9(H) 26.0 - 32.0 pg LAB HEMATOLOGY METHOD 03/21/2025 6:58 AM EDT [facility] MCHC 33.5 30.7 - 35.5 g/dL LAB HEMATOLOGY METHOD 03/21/2025 6:58 AM EDT [facility] RDW 16.8(H) 11.5 - 14.5 % LAB HEMATOLOGY METHOD 03/21/2025 6:58 AM EDT [facility] MPV 12.2 8.8 - 12.5 fL LAB HEMATOLOGY METHOD 03/21/2025 6:58 AM EDT [facility] nRBC 0.0 <=0.0 per 100 WBCs LAB HEMATOLOGY METHOD 03/21/2025 6:58 AM EDT [facility] Differential Type Automated LAB HEMATOLOGY METHOD 03/21/2025 6:58 AM EDT [facility] Neutrophils % 55 % LAB HEMATOLOGY METHOD 03/21/2025 6:58 AM EDT [facility] Lymphocytes % 24 % LAB HEMATOLOGY METHOD 03/21/2025 6:58 AM EDT [facility] Monocytes % 17 % LAB HEMATOLOGY METHOD 03/21/2025 6:58 AM EDT [facility] Eosinophils % 2 % LAB HEMATOLOGY METHOD 03/21/2025 6:58 AM EDT [facility] Basophils % 1 % LAB HEMATOLOGY METHOD 03/21/2025 6:58 AM EDT [facility] Immature Granulocytes % 1 % LAB HEMATOLOGY METHOD 03/21/2025 6:58 AM EDT [facility] Neutrophils Absolute 3.46 1.60 - 6.10 10*3/uL LAB HEMATOLOGY METHOD 03/21/2025 6:58 AM EDT [facility] Lymphocytes Absolute 1.45 1.20 - 3.90 10*3/uL LAB HEMATOLOGY METHOD 03/21/2025 6:58 AM EDT [facility] Monocytes Absolute 1.03(H) 0.30 - 0.90 10*3/uL LAB HEMATOLOGY METHOD 03/21/2025 6:58 AM EDT [facility] Eosinophils Absolute 0.11 0.00 - 0.50 10*3/uL LAB HEMATOLOGY METHOD 03/21/2025 6:58 AM EDT [facility] Basophils Absolute 0.04 0.00 - 0.10 10*3/uL LAB HEMATOLOGY METHOD 03/21/2025 6:58 AM EDT [facility] Immature Granulocytes Absolute 0.03 0.00 - 0.06 10*3/uL LAB HEMATOLOGY METHOD 03/21/2025 6:58 AM EDT [facility] Blood Venous blood specimen / Unknown Venipuncture / Unknown 03/21/2025 6:32 AM EDT 03/21/2025 6:43 AM EDT Narrative [facility] - 03/21/2025 6:58 AM EDT Therapeutic decision making should be based on absolute values, rather than percentages. us Leelee Tripathi MD LAB BLOOD ORDERABLE S Final Result [facility] [address] [place] [address] * (ABNORMAL) Comprehensive metabolic panel (03/21/2025 6:32 AM EDT) Only the most recent of3 resultswithin the time period is included. Glucose, Plasma 107(H) 74 - 99 mg/dL 03/21/2025 7:11 AM EDT [facility] BUN, Plasma 12 8 - 23 mg/dL 03/21/2025 7:11 AM EDT [facility] Creatinine, Plasma 0.77 0.70 - 1.20 mg/dL 03/21/2025 7:11 AM EDT [facility] BUN/Creatinine Ratio 16 03/21/2025 7:11 AM EDT [facility] Sodium, Plasma 139 136 - 145 mmol/L 03/21/2025 7:11 AM EDT [facility] Potassium, Plasma 4.6 3.6 - 4.9 mmol/L 03/21/2025 7:11 AM EDT [facility] Comment:Hemolyzed, result ma y be falsely increased. Chloride, Plasma 105 97 - 107 mmol/L 03/21/2025 7:11 AM EDT [facility] CO2, Plasma 23 22 - 29 mmol/L 03/21/2025 7:11 AM EDT [facility] Anion Gap 11 6 - 16 mmol/L 03/21/2025 7:11 AM EDT [facility] Total Calcium, Plasma 9.4 8.9 - 10.2 mg/dL 03/21/2025 7:11 AM EDT [facility] Total Protein 7.0 6.3 - 7.9 g/dL 03/21/2025 7:11 AM EDT [facility] Albumin, Plasma 3.6 3.5 - 5.2 g/dL 03/21/2025 7:11 AM EDT [facility] AST, Plasma 621(H) 10 - 50 U/L 03/21/2025 7:11 AM EDT [facility] Comment:Hemolyzed, result ma y be falsely increased. ALT, Plasma 48 10 - 50 U/L 03/21/2025 7:11 AM EDT [facility] Alkaline Phosphatase, Plasma 232(H) 40 - 115 U/L 03/21/2025 7:11 AM EDT [facility] Total Bilirubin, Plasma 0.6 0.2 - 1.1 mg/dL 03/21/2025 7:11 AM EDT [facility] eGFRcr 98.7 mL/min/1.7 3m*2 03/21/2025 7:11 AM EDT [facility] Comment:Reported eGFRcr in m L/min/1.73m2 is based the CKD-EPI 2020 equation that does not use a race coefficient. Blood Venous blood specimen / Unknown Venipuncture / Unknown 03/21/2025 6:32 AM EDT 03/21/2025 6:43 AM EDT Leelee Tripathi MD LAB BLOOD ORDERABLE S Final Result Performing Organization Address City/[facility]/ZIP Co de Phone Number [facility] [address] [place] [address] * Troponin T, High Sensitivity, 2 Hour, Plasma (03/20/2025 10:54 PM EDT) Troponin T, High Sensitivity, 2 Hour 10 <19 ng/L 03/20/2025 11:31 PM EDT [facility] Blood Venous blood specimen / Unknown Venipuncture / Unknown 03/20/2025 10:54 PM EDT 03/20/2025 11:04 PM EDT Leelee Tirpathi MD LAB BLOOD ORDERABLE S Final Result Performing Organization Address City/[facility] Co de Phone Number [facility] [address] [place] [address] * ED HIV 1/2 Antibody/Antigen Screen w/Reflex to HIV 1/2 Differentiation (03/20/2025 6:51 PM EDT) [facility] HIV 1 & 2 Antibody/Antigen Screen Non Reactive Non Reactive 03/20/2025 8:05 PM EDT [facility] Comment:Screening for HIV 1 & 2 antibodies, and P24 antigen is NONREACTIVE. No confirmatory testing is required. Blood Venous blood specimen / Unknown Venipuncture / Unknown 03/20/2025 6:51 PM EDT 03/20/2025 7:09 PM EDT Dedra HURTADO LAB BLOOD ORDERABLES Courtney l Result Performing Organization Address City/[facility]/ZIP Co de Phone Number [facility] [address] [place] [address] * Troponin now and 120 min (03/20/2025 6:51 PM EDT) Troponin T, High Sensitivity, 0 Hour 9 <19 ng/L 03/20/2025 7:35 PM EDT [facility] Blood Venous blood specimen / Unknown Venipuncture / Unknown 03/20/2025 6:51 PM EDT 03/20/2025 7:09 PM EDT Result [facility] Dedra A Rebsamen PA LAB BLOOD ORDERABLES Courtney l Result Performing Organization Address City/[facility] Co de Phone Number [facility] [address] [place] [address] * Lactic acid, venous (03/20/2025 6:51 PM EDT) Pathologist [facility] Lactate, Venous, Whole Blood 1.7 0.5 - 2.2 mmol/L LAB HEMATOLOGY METHOD 03/20/2025 7:12 PM EDT [facility] Blood Venous blood specimen / Unknown Venipuncture / Unknown 03/20/2025 6:51 PM EDT 03/20/2025 7:08 PM EDT Result [facility] Dedra SmithRUSBASE PA LAB BLOOD ORDERABLES Courtney l Result Performing Organization Address [facility] Co de Phone Number [facility] [address] [place] [address] * Hepatitis C Antibody - ED (03/20/2025 6:51 PM EDT) Pathologist [facility] Hepatitis C Antibody Negative Negative 03/20/2025 8:01 PM EDT [facility] Blood Venous blood specimen / Unknown Venipuncture / Unknown 03/20/2025 6:51 PM EDT 03/20/2025 7:09 PM EDT Result [facility] Dedra Driscoll CollarityRUSBASE PA LAB BLOOD ORDERABLES Courtney l Result Performing Organization Address City/[facility] Co de Phone Number [facility] [address] [place] [address] * APTT (03/20/2025 6:51 PM EDT) Pathologist [facility] aPTT 31 25 - 35 sec 03/20/2025 7:25 PM EDT [facility] Blood Venous blood specimen / Unknown Venipuncture / Unknown 03/20/2025 6:51 PM EDT 03/20/2025 7:08 PM EDT Dedra A [employer] [address] LAB BLOOD ORDERABLES Courtney l Result Performing Organization Address [facility] Co de Phone Number [facility] [address] [place] [address] * C-Reactive protein (03/20/2025 6:51 PM EDT) [facility] CRP, Plasma 5.2 <=8.0 mg/L 03/20/2025 7:35 PM EDT [facility] Blood Venous blood specimen / Unknown Venipuncture / Unknown 03/20/2025 6:51 PM EDT 03/20/2025 7:09 PM EDT Narrative [facility] - 03/20/2025 7:35 PM EDT This CRP test is appropriate for assessment of infection, systemic inflammation and/or tissue injury. To assess cardiovascular disease risk order high sensitivity CRP (CRPH). us [employer] LAB BLOOD ORDERABLES Courtney l Result Performing Organization Address [facility] Co de Phone Number [facility] [address] [place] [address] * Lipase (03/20/2025 6:51 PM EDT) [facility] Lipase, Plasma 19 19 - 63 U/L 03/20/2025 7:35 PM EDT [facility] Blood Venous blood specimen / Unknown Venipuncture / Unknown 03/20/2025 6:51 PM EDT 03/20/2025 7:09 PM EDT us Dedra [address] LAB BLOOD ORDERABLES Courtney l Result Performing Organization Address City/[facility] Co de Phone Number [facility] [address] [place] [address] * EKG now - STAT (adult) (03/20/2025 5:31 PM EDT) [facility] EKG DIAGNOSIS CLASS Abnormal MUSE ECG Ventricular Rate 60 BPM MUSE ECG Atrial Rate 60 BPM MUSE ECG LA Interval 176 ms MUSE ECG QRSD Interval 86 ms MUSE ECG QT Interval 422 ms MUSE ECG QTC Interval 422 ms MUSE ECG P Hopkins 53 degrees MUSE ECG R Hopkins -37 degrees MUSE ECG T Wave Hopkins 80 degrees MUSE ECG Diagnosis Atrial-paced rhythm MUSE ECG Diagnosis Left axis deviation MUSE ECG Diagnosis T wave abnormality, consider anterior ischemia MUSE ECG Diagnosis Abnormal ECG MUSE ECG Diagnosis MUSE ECG Diagnosis Confirmed by J Carlos Campbell ([id number]) on 03/20/2025 5:41:58 PM MUSE ECG 03/20/2025 5:31 PM EDT 03/20/2025 5:41 PM EDT Dedra HURTADO ECG ORDERABLES Final Res ult MUSE ECG * CT THORACIC OUTSIDE IMAGES [...] BLOOD ORDERABLES Final Result Performing Organization Address City/[facility]/ZIP Co de Phone Number [facility] [address] [place] [address] * Cancer Antigen, GI (CA 19.9) (03/14/2025 8:38 AM EDT) CA 19.9 26.5 <36 U/mL 03/14/2025 10:22 AM EDT [facility] Blood Venous blood specimen / Unknown Venipuncture / Unknown 03/14/2025 8:38 AM EDT 03/14/2025 9:03 AM EDT Narrative [facility] - 03/14/2025 10:22 AM EDT Performed by Ricky electrochemiluminescent immunoassay. Results obtained with different test methods or kits cannot be used interchangeably. Peter Do MD LAB BLOOD ORDERABLES Final Result Performing Organization Address City/[facility]/ZIP Co de Phone Number [facility] [address] [place] [address] * (ABNORMAL) CBC w/o differential (03/14/2025 8:38 [...] Result [facility] [address] [place] [address] * (ABNORMAL) CEA, Serum (03/14/2025 8:38 AM EDT) CEA, Serum 5.2(H) <4.0 ng/mL 03/14/2025 10:22 AM EDT [facility] Blood Venous blood specimen / Unknown Venipuncture [...] Result [facility] [address] [place] [address] * CT Abdomen w and wo IV [...] are consistent with and integrated into the [employer] Liver Diseases [...] are consistent with and integrated into the [employer] Associationfor the Study of Liver Diseases (AASLD) [...] MD on 02/09/2025 3:29 PM Isabella Saucedo FEATHER BALER IMG CT PROCEDURES Final Re sult from Last 3 Months Insurance [place]ICA[place] MEDICARE Advance Directives * Full Code (Latest Code Status on File) Date Activated Date Inactivated Comments 03/20/2025 7:46 PM 03/21/2025 8:56 PM Question Answer Comments I have reviewed the capacity from the link above and, if needed, have updated to appropriate status: Yes Care Teams Curtain Mender Relationship Specialty Start Date End Date Pcp, No [address] [place] [address] PCP - General Family Medicine 03/20/25 Isabella Saucedo APRN [address] [place] [place] [address] Referring Physician 02/26/25 Jeannie Mcmillan, RN [facility] [address] [place] [phone] Registered Nurse Transplant Surgery 03/08/25 [place] [address] Registered Nurse Transplant Surgery 03/08/25 Rodney Gonzáles MD [address] [facility] [address] [place] [address] Medical Oncologist 04/10/25
--- OUTSIDE RECORDS SUMMARY | 2025-04-26 09:01 | XMS_ITS | Encounter Summary ---
Author Organization Healthcare Address [address] [place] [address] Care Team Providers Care Agricultural Sales Representative Name Role Phone Isabella Saucedo SUPERVISOR WET ROOM Unavailable [phone] Jeannie Mcmillan RN Unavailable [phone] Ebony Shoemaker Unavailable [phone] Pcp, No Primary Care Provider Unavailabl e Rodney Gonzáles MD Unavailable [phone] Encounter Details Date Type Department Care Team (Late st Contact Info) Description 11/22/2024 Orders Only External Location [address] [place] [address] Provider, External Social History Tobacco Use Types [...] on filedocumented in this encounter Care Teams Agricultural Sales Representative Relationship Specialty Start Date End Date Pcp, No [address] [place] [address] PCP - General Family Medicine 03/20/25 Isabella Saucedo APRN 12[address] [facility] [address] [place] [address] Referring Physician 02/26/25 Jeannie Mcmillan, RN [facility] [address] [place] [address] Registered Nurse Transplant Surgery 03/08/25 [place] [address] Registered Nurse Transplant Surgery 03/08/25 Rodney Gonzáles MD 1210 [facility] [address] [place] [address] Medical Oncologist 04/10/25 documented as of this encounter
--- OUTSIDE RECORDS SUMMARY | 2025-04-26 09:01 | XMS_ITS | Encounter Summary ---
Author Organization [facility] Address [address] [place] [address] Care Team Providers Care Nutrition And Dietetics Instructor Name Role Phone Isabella Saucedo WASTE MACHINE TENDER Unavailable [phone] Reason for Visit * Reason Comments Appointment Encounter Details Date Type Department Care Team (Late st Contact Info) Description 03/05/2025 Telephone [facility] [address] [facility] [address] [place] [phone] Angelita Reeves [place] [id number] Appointment Social History Tobacco Use Types Packs/Day [...] to reach his , Ashley at at. [phone]. Called patient's , Ashley and offered to [...] on filedocumented in this encounter Care Teams Nutrition And Dietetics Instructor Relationship Specialty Start Date End Date Isabella Saucedo, WASTE MACHINE TENDER [address] [place] [address] Referring Physician 02/26/25 documented as of this encounter
--- OUTSIDE RECORDS SUMMARY | 2025-04-26 09:01 | XMS_ITS | Encounter Summary ---
Author Organization Healthcare Address [address] [place] [address] Care Team Providers Care Certified Veterinary Technician Name Role Phone Isabella Saucedo GENERATOR WORKER Unavailable [phone] Jeannie Mcmillan RN Unavailable Ebony Shoemaker Unavailable [phone] Encounter Details Date Type Department Care [...] documented as of this encounter Care Teams Certified Veterinary Technician Relationship Specialty Start Date End Date Lewis Isabella Darling APRN [address] [place] [address] [place] [address] Referring Physician 02/26/25 Jeannie Mcmillan, RN [facility]-TRANSPLANT ADMINISTRATION [address] [place] [address] Registered Nurse Transplant Surgery 03/08/25 [place] [address] Registered Nurse Transplant Surgery 03/08/25 documented as of this encounter
--- OUTSIDE RECORDS SUMMARY | 2025-04-26 09:01 | XMS_ITS | Encounter Summary ---
Author Organization Healthcare Address [address] [place] [address] Care Team Providers Care District Medical Examiner Name Role Phone Isabella Saucedo PLANT SECURITY GUARD Unavailable [phone] Encounter Details Date Type Department Care Team [...] on filedocumented in this encounter Care Teams District Medical Examiner Relationship Specialty Start Date End Date Isabella Saucedo APRN [address] [place] [address] Referring Physician 02/26/25 documented as of this encounter
--- OUTSIDE RECORDS SUMMARY | 2025-04-26 09:01 | XMS_ITS | Encounter Summary ---
Author Organization Healthcare Address [address] [place] [address] Care Team Providers Care Enroller Name Role Phone Isabella Saucedo DIRECTOR OF SOLUTIONS ARCHITECTURE Unavailable [phone] Jeannie Mcmillan RN Unavailable Ebony Shoemaker Unavailable [phone] Pcp, No Primary Care Provider Unavailabl e Rodney Gonzáles MD Unavailable [phone] Encounter Details Date Type Department Care Team (Late st Contact Info) Description 01/14/2024 Orders Only External Location 800 [place] [address] Provider, External Social History Tobacco Use Types [...] on filedocumented in this encounter Care Teams Enroller Relationship Specialty Start Date End Date Pcp, No 800 [place] [address] PCP - General Family Medicine 03/20/25 Isabella Saucedo APRN 1210 [facility] [address] [place] [address] Referring Physician 02/26/25 Jeannie Mcmillan, RN CH-TRANSPLANT ADMINISTRATION [address] [place] [address] Registered Nurse Transplant Surgery 03/08/25 Ebony Shoemaker [place] [id number] Registered Nurse Transplant Surgery 03/08/25 Rodney Gonzáles MD 1210 [facility] [address] [place] [address] Medical Oncologist 04/10/25 documented as of this encounter
--- OUTSIDE RECORDS SUMMARY | 2025-04-26 09:01 | XMS_ITS | Encounter Summary ---
Author Organization Healthcare Address [address] [place] [address] Care Team Providers Care Assistant Manager Airside Operations Name Role Phone Isabella Saucedo PUBLIC HEALTH SPECIALIST Unavailable [phone] Jeannie Mcmillan RN Unavailable [phone] Ebony Shoemaker Unavailable [phone] Pcp, No Primary Care Provider Unavailabl e Rodney Gonzáles MD Unavailable [phone] Encounter Details Date Type Department Care Team (Late st Contact Info) Description 11/15/2024 Orders Only External Location 800 [place] [address] Provider, External Social History Tobacco Use Types [...] filedocumented in this encounter Care Teams Assistant Manager Airside Operations Relationship Specialty Start Date End Date Pcp, No 800 [place] [address] PCP - General Family Medicine 03/20/25 Isabella Saucedo APRN 1210 [facility] [address] [place] [address] Referring Physician 02/26/25 Jeannie Mcmillan, RN CH-TRANSPLANT ADMINISTRATION [address] [place] [address] Registered Nurse Transplant Surgery 03/08/25 Ebony Shoemaker [place] [phone] Registered Nurse Transplant Surgery 03/08/25 Rodney Gonzáles MD 1210 [facility] [address] [place] [place] [address] Medical Oncologist 04/10/25 documented as of this encounter
--- OUTSIDE RECORDS SUMMARY | 2025-04-26 09:01 | XMS_ITS | Encounter Summary ---
Author Organization [place] [address] Care Team Providers Care Classified Ad Taker Name Role Phone Jan Sin MD Unavailable [phone] Macario Pryor MD Unavailable Unavailabl e Cr Resendez MD Primary Care Provider [phone] Reason for Visit * Reason Comments Medication Refill Encounter Details Date Type Department Care Team (Late st Contact Info) Description 03/26/2025 Refill SEP Luis [facility] [address] Cr Resendez MD [address] [place] [address] [address] [place] [id number] Medication Refill Social History Tobacco Use Types [...] documented as of this encounter Care Teams Classified Ad Taker Relationship Specialty Start Date End Date Macario Pryor MD [address] [place] [address] [place] [address] PCP - Hematology/Oncology Internal Medicine-Medical Oncology 11/12/15 Cr Resendez MD [address] [place] [address] [place] [address] PCP - General Family Medicine 11/24/21 Jan Sin MD [address] [place] [address] [place] [address] Internal Medicine-Cardiovascul ar Disease 08/28/14 documented as of this encounter
--- OUTSIDE RECORDS SUMMARY | 2025-04-26 09:01 | XMS_ITS | Encounter Summary ---
Author Organization Healthcare Address [address] [place] [address] Care Team Providers Care Fruit Dumper Name Role Phone Isabella Saucedo SOCIAL SERVICE TECHNICIAN Unavailable [phone] Jeannie Mcmillan RN Unavailable [phone] Ebony Shoemaker Unavailable [phone] Pcp, No Primary Care Provider Unavailabl e Rodney Gonzáles MD Unavailable [phone] Encounter Details Date Type Department Care Team (Late st Contact Info) Description 01/06/2024 Orders Only External Location 800 [place] [address] Provider, External Social History Tobacco Use Types [...] on filedocumented in this encounter Care Teams Fruit Dumper Relationship Specialty Start Date End Date Pcp, No 800 [place] [address] PCP - General Family Medicine 03/20/25 Isabella Saucedo APRN 1210 [facility] [address] [place] [address] Referring Physician 02/26/25 Jeannie Mcmillan, RN CH-TRANSPLANT ADMINISTRATION [address] [place] [address] Registered Nurse Transplant Surgery 03/08/25 Ebony Shoemaker [place] [phone] Registered Nurse Transplant Surgery 03/08/25 Rodney Gonzáles MD 1210 [facility] [address] [place] [address] Medical Oncologist 04/10/25 documented as of this encounter
--- OUTSIDE RECORDS SUMMARY | 2025-04-26 09:02 | XMS_ITS | Encounter Summary ---
Author Organization Healthcare Address [address] [place] [address] Care Team Providers Care Charge Out Clerk Name Role Phone Isabella Saucedo LATHE SETUP OPERATOR Unavailable [phone] Jeannie Mcmillan RN Unavailable Ebony Shoemaker Unavailable [phone] Pcp, No Primary Care Provider Unavailabl e Rodney Gonzáles MD Unavailable [phone] Encounter Details Date Type Department Care Team (Late st Contact Info) Description 12/06/2024 Orders Only External Location 800 [place] [address] Provider, External Social History Tobacco Use Types [...] on filedocumented in this encounter Care Teams Charge Out Clerk Relationship Specialty Start Date End Date Pcp, No 800 [place] [address] PCP - General Family Medicine 03/20/25 Isabella Saucedo APRN 1210 [facility] [address] [place] [place] [address] Referring Physician 02/26/25 Jeannie Mcmillan, RN CH-TRANSPLANT ADMINISTRATION [address] [place] [address] Registered Nurse Transplant Surgery 03/08/25 Ebony Shoemaker [place] [phone] Registered Nurse Transplant Surgery 03/08/25 Rodney Gonzáles MD 1210 [facility] [address] [place] [place] [address] Medical Oncologist 04/10/25 documented as of this encounter
--- OUTSIDE RECORDS SUMMARY | 2025-04-26 09:02 | XMS_ITS | Encounter Summary ---
Author Organization Healthcare Address [address] [place] [address] Care Team Providers Care Medical Claims Manager Name Role Phone Isabella Saucedo HEAD TURNING MACHINE OPERATOR Unavailable [phone] Jeannie Mcmillan RN Unavailable [phone] Ebony Shoemaker Unavailable [phone] Pcp, No Primary Care Provider Unavailabl e Rodney Gonzáles MD Unavailable [phone] Encounter Details Date Type Department Care Team (Late st Contact Info) Description 12/06/2024 Orders Only External Location 800 [place] [address] Provider, External Social History Tobacco Use Types [...] on filedocumented in this encounter Care Teams Medical Claims Manager Relationship Specialty Start Date End Date Pcp, No 800 [place] [address] PCP - General Family Medicine 03/20/25 Isabella Saucedo APRN 1210 [facility] [address] [place] [address] Referring Physician 02/26/25 Jeannie Mcmillan, RN CH-TRANSPLANT ADMINISTRATION [address] [place] [address] Registered Nurse Transplant Surgery 03/08/25 Ebony Shoemaker [place] [phone] Registered Nurse Transplant Surgery 03/08/25 Rodney Gonzáles MD 1210 [facility] [address] [place] [place] [address] Medical Oncologist 04/10/25 documented as of this encounter
--- OUTSIDE RECORDS SUMMARY | 2025-04-26 09:02 | XMS_ITS | Encounter Summary ---
Author Organization Healthcare Address [address] [place] [address] Care Team Providers Care Blocker And Polisher Gold Wheel Name Role Phone Isabella Saucdeo ALGORITHM DESIGN ENGINEER Unavailable [phone] Jeannie Mcmillan RN Unavailable [phone] Ebony Shoemaker Unavailable [phone] Pcp, No Primary Care Provider Unavailabl e Rodney Gonzáles MD Unavailable [phone] Encounter Details Date Type Department Care Team (Late st Contact Info) Description 12/06/2024 Orders Only External Location 800 [place] [address] Provider, External Social History Tobacco Use Types [...] on filedocumented in this encounter Care Teams Blocker And Polisher Gold Wheel Relationship Specialty Start Date End Date Pcp, No 800 [place] [address] PCP - General Family Medicine 03/20/25 Isabella Saucedo APRN 1210 [facility] [address] [place] [place] [address] Referring Physician 02/26/25 Jeannie Mcmillan, RN CH-TRANSPLANT ADMINISTRATION [address] [place] [address] Registered Nurse Transplant Surgery 03/08/25 Ebony Shoemaker [place] [phone] Registered Nurse Transplant Surgery 03/08/25 Rodney Gonzáles MD 1210 [facility] [address] [place] [place] [address] Medical Oncologist 04/10/25 documented as of this encounter
--- OUTSIDE RECORDS SUMMARY | 2025-04-26 09:02 | XMS_ITS | Encounter Summary ---
Author Organization Healthcare Address [address] [place] [address] Care Team Providers Care Flat Ironer Name Role Phone Isabella Saucedo TIE MAKER Unavailable [phone] Jeannie Mcmillan RN Unavailable [phone] Ebony Shoemaker Unavailable [phone] Pcp, No Primary Care Provider Unavailabl e Rodney Gonzáles MD Unavailable [phone] Encounter Details Date Type Department Care Team (Late st Contact Info) Description 12/06/2024 Orders Only External Location 800 [place] [address] Provider, External Social History Tobacco Use Types [...] on filedocumented in this encounter Care Teams Flat Ironer Relationship Specialty Start Date End Date Pcp, No 800 [place] [address] PCP - General Family Medicine 03/20/25 Isabella Saucedo APRN 1210 [facility] [address] [place] [address] Referring Physician 02/26/25 Jeannie Mcmillan, RN CH-TRANSPLANT ADMINISTRATION [address] [place] [address] Registered Nurse Transplant Surgery 03/08/25 Ebony Shoemaker [place] [phone] Registered Nurse Transplant Surgery 03/08/25 Rodney Gonzáles MD 1210 [facility] [address] [place] [address] Medical Oncologist 04/10/25 documented as of this encounter
--- OUTSIDE RECORDS SUMMARY | 2025-04-26 09:02 | XMS_ITS | Encounter Summary ---
Author Organization Healthcare Address [address] [place] [address] Care Team Providers Care Mill Washer Name Role Phone Isabella Saucedo ICT HELP DESK OFFICER Unavailable [phone] Jeannie Mcmillan RN Unavailable [phone] Ebony Shoemaker Unavailable [phone] Pcp, No Primary Care Provider Unavailabl e Rodney Gonzáles MD Unavailable [phone] Encounter Details Date Type Department Care Team (Late st Contact Info) Description 12/06/2024 Orders Only External Location 800 [place] [address] Provider, External Social History Tobacco Use Types [...] on filedocumented in this encounter Care Teams Mill Washer Relationship Specialty Start Date End Date Pcp, No 800 [place] [address] PCP - General Family Medicine 03/20/25 Isabella Saucedo APRN 1210 [facility] [address] [place] [place] [address] Referring Physician 02/26/25 Jeannie Mcmillan, RN CH-TRANSPLANT ADMINISTRATION [address] [place] [address] Registered Nurse Transplant Surgery 03/08/25 Ebony Shoemaker [place] [phone] Registered Nurse Transplant Surgery 03/08/25 Rodney Gonzáles MD 1210 [facility] [address] [place] [address] Medical Oncologist 04/10/25 documented as of this encounter
--- OUTSIDE RECORDS SUMMARY | 2025-04-26 09:02 | XMS_ITS | Encounter Summary ---
Author Organization Healthcare Address [address] [place] [address] Care Team Providers Care Gynecological Assistant Name Role Phone Isabella Saucedo TANGLED YARN WORKER Unavailable [phone] Jeannie Mcmillan RN Unavailable [phone] Ebony Shoemaker Unavailable [phone] Pcp, No Primary Care Provider Unavailabl e Rodney Gonzáles MD Unavailable [phone] Encounter Details Date Type Department Care Team (Late st Contact Info) Description 05/26/2022 Orders Only External Location 800 [place] [address] Provider, External Social History Tobacco Use Types [...] on filedocumented in this encounter Care Teams Gynecological Assistant Relationship Specialty Start Date End Date Pcp, No 800 [place] [address] PCP - General Family Medicine 03/20/25 Isabella Saucedo APRN 1210 [facility] [address] [place] [place] [address] Referring Physician 02/26/25 Jeannie Mcmillan, RN CH-TRANSPLANT ADMINISTRATION [address] [place] [address] Registered Nurse Transplant Surgery 03/08/25 Ebony Shoemaker [place] [phone] Registered Nurse Transplant Surgery 03/08/25 Rodney Gonzáles MD 1210 [facility] [address] [place] [address] Medical Oncologist 04/10/25 documented as of this encounter
--- OUTSIDE RECORDS SUMMARY | 2025-04-26 09:02 | XMS_ITS | Encounter Summary ---
Author Organization Healthcare Address [address] [place] [address] Care Team Providers Care Holistic Nutritionist Name Role Phone Isabella Saucedo ACID CHANGER Unavailable [phone] Jeannie Mcmillan RN Unavailable [phone] Ebony Shoemaker Unavailable [phone] Pcp, No Primary Care Provider Unavailabl e Rodney Gonzáles MD Unavailable [phone] Encounter Details Date Type Department Care Team (Late st Contact Info) Description 12/07/2024 Orders Only External Location 800 [place] [address] Provider, External Social History Tobacco Use Types [...] on filedocumented in this encounter Care Teams Holistic Nutritionist Relationship Specialty Start Date End Date Pcp, No 800 [place] [address] PCP - General Family Medicine 03/20/25 Isabella Saucedo APRN 1210 [facility] [address] [place] [place] [address] Referring Physician 02/26/25 Jeannie Mcmillan, RN CH-TRANSPLANT ADMINISTRATION [address] [place], [place] [address]8536 Registered Nurse Transplant Surgery 03/08/25 Ebony Shoemaker [place] [phone] Registered Nurse Transplant Surgery 03/08/25 Rodney Gonzáles MD 1210 [facility] [address] [place] [address] Medical Oncologist 04/10/25 documented as of this encounter
--- OUTSIDE RECORDS SUMMARY | 2025-04-26 09:02 | XMS_ITS | Encounter Summary ---
Author Organization Healthcare Address [address] [place] [address] Care Team Providers Care Analyzer Sales Name Role Phone Isabella Saucedo LEAD SOFTWARE TEST ENGINEER Unavailable [phone] Jeannie Mcmillan RN Unavailable [phone] Ebony Shoemaker Unavailable [phone] Pcp, No Primary Care Provider Unavailabl e Rodney Gonzáles MD Unavailable [phone] Encounter Details Date Type Department Care Team (Late st Contact Info) Description 05/26/2022 Orders Only External Location 800 [place] [address] Provider, External Social History Tobacco Use Types [...] on filedocumented in this encounter Care Teams Analyzer Sales Relationship Specialty Start Date End Date Pcp, No [address] [place] [address] PCP - General Family Medicine 03/20/25 Isabella Saucedo APRN 1210 [facility] [address] [place] [address] Referring Physician 02/26/25 Jeannie Mcmillan, RN CH-TRANSPLANT ADMINISTRATION [address] [place] [address] Registered Nurse Transplant Surgery 03/08/25 Ebony Shoemaker [place] [phone] Registered Nurse Transplant Surgery 03/08/25 Rodney Gonzáles MD 1210 [facility] [address] [place] [address] Medical Oncologist 04/10/25 documented as of this encounter
--- OUTSIDE RECORDS SUMMARY | 2025-04-26 09:02 | XMS_ITS | Encounter Summary ---
Author Organization Healthcare Address [address] [place] [address] Care Team Providers Care Supervisor Mold Yard Name Role Phone Isabella Saucedo DIRECTOR POWER Unavailable [phone] Jeannie Mcmillan RN Unavailable [phone] Ebony Shoemaker Unavailable [phone] Pcp, No Primary Care Provider Unavailabl e Rodney Gonzáles MD Unavailable [phone] Encounter Details Date Type Department Care Team (Late st Contact Info) Description 12/06/2024 Orders Only External Location 800 [place] [address] Provider, External Social History Tobacco Use Types [...] on filedocumented in this encounter Care Teams Supervisor Mold Yard Relationship Specialty Start Date End Date Pcp, No 800 [place] [address] PCP - General Family Medicine 03/20/25 Isabella Saucedo APRN 1210 [facility] [address] [place] [address] Referring Physician 02/26/25 Jeannie Mcmillan, RN CH-TRANSPLANT ADMINISTRATION [address] [place] [address] Registered Nurse Transplant Surgery 03/08/25 Ebony Shoemaker [place] [phone] Registered Nurse Transplant Surgery 03/08/25 Rodney Gonzáles MD 1210 [facility] [address] [place] [address] Medical Oncologist 04/10/25 documented as of this encounter
--- OUTSIDE RECORDS SUMMARY | 2025-04-26 09:02 | XMS_ITS | Encounter Summary ---
Author Organization Healthcare Address [address] [place] [address] Care Team Providers Care Cooling Tower Technician Name Role Phone Isabella Saucedo SPORTS FITNESS AND WELLNESS DIRECTOR Unavailable [phone] Jeannie Mcmillan RN Unavailable [phone] Ebony Shoemaker Unavailable [phone] Pcp, No Primary Care Provider Unavailabl e Rodney Gonzáles MD Unavailable [phone] Encounter Details Date Type Department Care Team (Late st Contact Info) Description 12/06/2024 Orders Only External Location 800 [place] [address] Provider, External Social History Tobacco Use Types [...] on filedocumented in this encounter Care Teams Cooling Tower Technician Relationship Specialty Start Date End Date Pcp, No 800 [place] [address] PCP - General Family Medicine 03/20/25 Isabella Saucedo APRN 1210 [facility] [address] [place] [place] [address] Referring Physician 02/26/25 Jeannie Mcmillan, RN CH-TRANSPLANT ADMINISTRATION [address] [place] [address] Registered Nurse Transplant Surgery 03/08/25 Ebony Shoemaker [place] [phone] Registered Nurse Transplant Surgery 03/08/25 Rodney Gonzáles MD 1210 [facility] [address] [place] [address] Medical Oncologist 04/10/25 documented as of this encounter
--- OUTSIDE RECORDS SUMMARY | 2025-04-26 09:02 | XMS_ITS ---
Author Organization [facility] Address [address] [place] [address] Care Team Providers Care Billing Manager Name Role Phone Isabella Saucedo MUSEUM ATTENDANT Unavailable [phone] Jeannie Mcmillan RN Unavailable [phone] Ebony Shoemaker Unavailable [phone] Pcp, No Primary Care Provider Unavailabl e Rodney Gonzáles MD Unavailable [phone] Transplant Episode Liver Candidate [facility] ([place], [place]) [facility] Referred on 02/26/2025 Marked as Ineligible on 03/06/2025 Reason: Transfered to Another Program Liver CoordinatorAngelita Reeves Fax: N/A Email: N/A Scores Score Value Updated Expires Exceptions/[place] sons CPRA Not available MELD (Calc) 7 03/21/2025 Care Team Name Role Phone Fax Email Angelita Reeves Liver Coordinator [phone] N/A N/A Gloria Chau LCSW Shirt Ironer Supervisor [phone] N/A N/A Isabella Saucedo APRN Referring Physician [phone] N/A Haroon Cannon MD Surgeon [phone] N/A Events Pre-Transplant Referred: 02/26/2025
--- OUTSIDE RECORDS SUMMARY | 2025-04-26 09:02 | XMS_ITS | Encounter Summary ---
Author Organization Healthcare Address [address] [place] [address] Care Team Providers Care Aviation Ordnance Officer Name Role Phone Isabella Saucedo PROFILER OPERATOR Unavailable [phone] Jeannie Mcmillan RN Unavailable [phone] Ebony Shoemaker Unavailable [phone] Pcp, No Primary Care Provider Unavailabl e Rodney Gonzáles MD Unavailable [phone] Encounter Details Date Type Department Care Team (Late st Contact Info) Description 12/06/2024 Orders Only External Location 800 [place] [address] Provider, External Social History Tobacco Use Types [...] on filedocumented in this encounter Care Teams Aviation Ordnance Officer Relationship Specialty Start Date End Date Pcp, No 800 [place] [address] PCP - General Family Medicine 03/20/25 Isabella Saucedo APRN 1210 [facility] [address] [place] [address] Referring Physician 02/26/25 Jeannie Mcmillan, RN CH-TRANSPLANT ADMINISTRATION [address] [place] [address] Registered Nurse Transplant Surgery 03/08/25 Ebony Shoemaker [place] [phone] Registered Nurse Transplant Surgery 03/08/25 Rodney Gonzáles MD 1210 [facility] [address] [place] [address] Medical Oncologist 04/10/25 documented as of this encounter
--- OUTSIDE RECORDS SUMMARY | 2025-04-26 09:02 | XMS_ITS | Encounter Summary ---
Author Organization Healthcare Address [address] [place] [address] Care Team Providers Care Press Operator Meat Name Role Phone Isabella Saucedo LOOM OPERATOR Unavailable [phone] Jeannie Mcmillan RN Unavailable [phone] Ebony Shoemaker Unavailable [phone] Pcp, No Primary Care Provider Unavailabl e Rodney Gonzáles MD Unavailable [phone] Encounter Details Date Type Department Care Team (Late st Contact Info) Description 06/03/2022 Orders Only External Location [address] [place] [address] Provider, External Social History Tobacco Use Types [...] on filedocumented in this encounter Care Teams Press Operator Meat Relationship Specialty Start Date End Date Pcp, No 800 [place] [address] PCP - General Family Medicine 03/20/25 Isabella Saucedo APRN 1210 [facility] [address] [place] [address] Referring Physician 02/26/25 Jeannie Mcmillan, RN [facility] [address] [place], [place] [id number] Registered Nurse Transplant Surgery 03/08/25 Ebony Shoemaker [place] [id number] Registered Nurse Transplant Surgery 03/08/25 Rodney Gonzáles MD 1210 [facility] [address] [place], [place] [address] Medical Oncologist 04/10/25 documented as of this encounter
--- OUTSIDE RECORDS SUMMARY | 2025-04-26 09:02 | XMS_ITS | Encounter Summary ---
Author Organization Healthcare Address [address] [place] [address] Care Team Providers Care Band Attacher Name Role Phone Isabella Saucedo CHYRON OPERATOR Unavailable [phone] Jeannie Mcmillan RN Unavailable [phone] Ebony Shoemaker Unavailable [phone] Pcp, No Primary Care Provider Unavailabl e Rodney Gonzáles MD Unavailable [phone] Encounter Details Date Type Department Care Team (Late st Contact Info) Description 12/06/2024 Orders Only External Location [address] [place] [address] Provider, External Social History Tobacco Use Types [...] on filedocumented in this encounter Care Teams Band Attacher Relationship Specialty Start Date End Date Pcp, No [address] [place] [address] PCP - General Family Medicine 03/20/25 Isabella Saucedo APRN 1210 [facility] [address] [place] [address] Referring Physician 02/26/25 Jeannie Mcmillan, RN [facility] [address] [place] [address] Registered Nurse Transplant Surgery 03/08/25 Ebony Shoemaker [place] [id number] Registered Nurse Transplant Surgery 03/08/25 Rodney Gonzáles MD 1210 [facility] [address] [place] [address] Medical Oncologist 04/10/25 documented as of this encounter
[2025-04-26 09:25] LABS: Hematocrit 42.7 % (42.0-52.0); Hemoglobin 14.9 g/dL (14.1-18.0); Immature Granulocytes % 0.7 %; Mean Corpuscular HGB Conc 34.9 g/dL (31.8-35.4); Mean Corpuscular Hemoglobin 32.5 pg (27.0-31.2); Mean Corpuscular Volume 93.2 fl (80-94); Nucleated Red Blood Cells % 0 %; Red Blood Count 4.58 M/mm3 (4.60-6.20); Red Cell Distribution Width-SD 50.5 fL; White Blood Count 7.5 K/mm3 (4.8-10.8)
[2025-04-26 09:29] LABS: Albumin Level 3.9 g/dl (3.5-5.0); Chloride 106 mmol/L (98-107)
[2025-04-26 09:30] LABS: Potassium 3.5 mmoL/L (3.5-5.1); Sodium 139 mmol/L (136-145)
[2025-04-26 09:32] LABS: Alanine Aminotransferase 36 U/L (12-78); Anion Gap 10.5 mEq/L (5-15); Aspartate Amino Transferase 186 U/L (17-59); Blood Urea Nitrogen 14 mg/dl (9-20); Carbon Dioxide 26 mmol/L (22.0-30.0); Creatinine Clearance Estimated 63 mL/min (50-200); Creatinine,Serum 0.80 mg/dl (0.66-1.25); Estimated Glomerular Filt Rate 97 ml/min (>60); GFR (African American) 117 ML/MIN (>60)
[2025-04-26 09:33] LABS: Albumin/Globulin Ratio 1.0 (1.1-1.8); Alkaline Phosphatase 156 U/L (38-126); Bilirubin,Total 3.5 mg/dl (0.2-1.3); Calcium 9.6 mg/dl (8.4-10.2); Globulin 3.9 g/dL (1.3-3.2); Glucose 178 mg/dl (74-100); Total Protein,Serum 7.8 g/dl (6.3-8.2)
[2025-04-26 10:02] LABS: Thyroid Stimulating Hormone 0.59 uIU/mL (0.465-4.68)
[2025-04-26 10:19] LABS: Platelet Count 89 K/mm3 (142-424)
[2025-04-26 10:21] LABS: Bilirubin,Direct 0.7 mg/dl (0.0-0.4)
[2025-04-26 15:50] LABS: Bilirubin,Indirect 2.5 mg/dL (0.0-0.9)
== END 2025-04-26 10:05 | disposition home or self-care (01) ==
LOC: INF 08:56
PROVIDERS: PCP Family Medicine; Visit Provider Internal Medicine Medical Oncology
DX: C22.0 Liver cell carcinoma (principal)
CPT/HCPCS: 36415; 80053; 82024; 82248; 82533; 84443; 85025

== ENCOUNTER 2025-05-01 09:05 | Outpatient (CLI) | payer MEDICARE, MEDICAID, SELFPAY ==
--- OUTSIDE RECORDS SUMMARY | 2008-06-24 20:00 | XMS_ITS | Continuity of Care Document ---
Author Organization [facility] Address [address] [place] [address] Phone Care Team Providers Care Ship Worker Name Role Phone No Information Unavailable Unavailable Advance Directives Directive Yes / No Effective Date File Name No Information Encounters Encounter Description Practice Location Reason(s) For Visit Diagnoses Date Provider Providers Copied on Encounter [facility] , [address] [place], [address], tel:[phone] LISA Zayas Ash No Information No Information Family History Family Member Type Diagnosis Age At Onset No Information Payers Payer name Insurance type Covered democrat ID Authoriza tion(s) No Information Social History [...]
--- OUTSIDE RECORDS SUMMARY | 2016-03-04 08:15 | XMS_ITS | Encounter Summary ---
Author Organization [place] [address] Care Team Providers Care Bait Digger Name Role Phone Jan Sin MD Unavailable [phone] Carlton James DO Primary Care Provide r aMcario Pryor MD Unavailable Unavailabl e Encounter Details Date Type Department Care Team (Latest Contact Info) Description 03/04/2016 8:15 AM EDT Hospital Encounter [facility] [address] [facility] [place] [address] Poppy Quintero MD [address] [place], [place] [phone] Left without seen Social History Tobacco Use [...] 3:32 PM EDT Jer Sena RN * [place] Suicide Severity Rating Scale (Q shift for [...] documented as of this encounter Care Teams Bait Digger Relationship Specialty Start Date End Date Carlton James DO [address] [place] [address] PCP - General Family Medicine 05/01/15 11/26/16 Macario Pryor MD [address] [place] [address] PCP - Hematology/Oncology Internal Medicine-Medical Oncology 11/12/15 Jan Sin MD [address] [place] [address] [place], [place] [id number] Internal Medicine-Cardiovascul ar Disease 08/28/14 documented as of this encounter
--- OUTSIDE RECORDS SUMMARY | 2023-06-24 09:41 | XMS_ITS | Continuity of Care Document ---
Author Organization [facility] o Address [address] [place] [address] Phone Care Team Providers Care Extrusion Line Operator Name Role Phone Morteza RIOS, Erasto Unavailable Unavailable Advance Directives Directive Yes / No Effective Date File Name No Information Encounters Encounter Description Practice Location Reason(s) For Visit Diagnoses Date Provider Providers Copied on Encounter [facility] [place], [facility] [place], [address], [place] tel:[phone] 00 Briana Cherry No Information 3 Morteza Maurer. [address] [place], [address], [place]. tel:[phone] Family History Family Member Type Diagnosis Age At Onset No Information Payers Payer name Insurance type Covered green party ID Authoriza tion(s) No Information Social [...]
--- OUTSIDE RECORDS SUMMARY | 2025-03-14 10:00 | XMS_ITS | Encounter Summary ---
Author Organization Healthcare Address [address] [place] [address] Care Team Providers Care Industrial Organizational Psychologist Name Role Phone Isabella Saucedo RADAR SIGNAL PROCESSING ENGINEER Unavailable [phone] Jeannie Mcmillan RN Unavailable [phone] Ebony Shoemaker Unavailable [phone] Reason for Visit * Reason Comments Liver Lesion * Consultation (Routine) - Closed Specialty Diagnoses / Procedures Referred By Vicente t Referred To Contact Transplant Diagnoses Elevated AFP Liver lesion Hepatic cirrhosis, unspecified hepatic cirrhosis type, unspecified whether ascites present (CMS/HCC) Isabella Saucedo, RADAR SIGNAL PROCESSING ENGINEER [address] [place] [address] Phone: tel: fax: [facility] [address] [address] Phone: tel: fax: Referral ID Status Reason Start Date Expiration Date V isits Requested Visits Authorized [id number] Closed Specialty Services Required 03/06/2025 09/05/2026 1 1 Encounter Details Date Type Department Care Team (Late st Contact Info) Description 03/14/2025 10:00 AM EDT Office Visit [facility] [address] [address] Peter Do MD [address] [address] HCC (hepatocellular carcinoma) (Primary Dx) [...] a 64 y.o.-year-old male w/ PMHx cirrhosis, [place], CAD s/p CABG x4 with re-stenosis withrevision, [...] Tobacco Use: High Risk (12/27/2024) Received from [facility] Patient History Smoking Tobacco Use: Every Day [...] a 64 y.o.-year-old male w/ PMHx cirrhosis, [place], CAD s/p CABG x4 with re-stenosis withrevision, [...] documented as of this encounter Care Teams Industrial Organizational Psychologist Relationship Specialty Start Date End Date Isabella Saucedo APRN [address] [place] [phone] Referring Physician 02/26/25 Jeannie Mcmillan, RN CH-TRANSPLANT ADMINISTRATION [address] [place] [address] Registered Nurse Transplant Surgery 03/08/25 [place] [address] Registered Nurse Transplant Surgery 03/08/25 documented as of this encounter
--- OUTSIDE RECORDS SUMMARY | 2025-03-14 11:20 | XMS_ITS | Encounter Summary ---
Author Organization Healthcare Address [address] [place] [address] Care Team Providers Care Improvement Manager Name Role Phone LewisIsabella Phong NATIONAL SALES EXECUTIVE Unavailable [phone] Jeannie Mcmillan RN Unavailable [phone] Ebony Shoemaker Unavailable [phone] Reason for Referral * Imaging (Routine) - Closed Specialty Diagnoses / Procedures Referred By Contac t Referred To Contact Radiology Diagnoses Elevated AFP Liver lesion Hepatic cirrhosis, unspecified hepatic cirrhosis type, unspecified whether ascites present (CMS/HCC) Procedures CT CHEST WO IV CONTRAST Peter Do MD [address] [address] Phone: tel: fax: Referral ID Status Reason Start Date Expiration Date Visits Re quested Visits Authorized [id number] Closed 03/14/2025 09/13/2026 1 1 Reason for Visit * Imaging (Routine) - Closed Specialty Diagnoses / Procedures Referred By Contac t Referred To Contact Radiology Diagnoses Elevated AFP Liver lesion Hepatic cirrhosis, unspecified hepatic cirrhosis type, unspecified whether ascites present (CMS/HCC) Procedures CT CHEST WO IV CONTRAST Peter Do MD [address] [address] Phone: tel: fax: Referral ID Status Reason Start Date Expiration Date Visits Re quested Visits Authorized [id number] Closed 03/14/2025 09/13/2026 1 1 Encounter Details Date Type Department Care Team (Latest Contact Info) Description 03/14/2025 11:20 AM EDT - 03/14/2025 11:59 PM EDT Hospital Encounter [facility] [address] [place] [address] Elevated AFP; Liver lesion; Hepatic [...] documented as of this encounter Care Teams Improvement Manager Relationship Specialty Start Date End Date Isabella Saucedo APRN [address] [place] [address] Referring Physician 02/26/25 Jeannie Mcmillan, RN [facility] [address] [place] [address] Registered Nurse Transplant Surgery 03/08/25 [place] [address] Registered Nurse Transplant Surgery 03/08/25 documented as of this encounter
--- OUTSIDE RECORDS SUMMARY | 2025-03-20 16:39 | XMS_ITS | Encounter Summary ---
Author Organization Healthcare Address [address] [place] [address] Care Team Providers Care Record Clerk Salesperson Name Role Phone Isabella Saucedo CERTIFIED REGISTERED DENTAL ASSISTANT Unavailable [phone] Jeannie Mcmillan RN Unavailable [phone] Ebony Shoemaker Unavailable [phone] Pcp, No Primary Care Provider Unavailabl e Reason for Visit * Reason Comments Abdominal Pain * Auth/Cert (Routine) Specialty Diagnoses / Procedures Referred By Vicente alaniz Referred To Contact Diagnoses Hepatocellular carcinoma hepatocellular carcinoma Navi Tripathi MD [address] [place] [address] Phone: tel: fax: [facility] Inpatient [address] [place] [address] Phone: tel: Referral ID Status Reason Start Date Expiration Date Visits Re quested Visits Authorized [id number] 1 1 Encounter Details Date Type Department Care Team (Latest Contact Info) Description 03/20/2025 4:39 PM EDT - 03/21/2025 6:51 PM EDT Hospital Encounter [facility] Inpatient [address] [place] [address] Clotilde Saleh MD [address] [place] [address] Navi Tripathi MD [address] [place] [address] Lolly Flaherty MD [address] [place] [phone] Epigastric pain (Primary Dx); Hepatocellular carcinoma; Alcoholic [...] PCP name and Address: Pcp, Tiki [address] [facility] / [place] [phone] Referring provider name and address: Monalisa Elizondo, CERTIFIED REGISTERED DENTAL ASSISTANT [address] [place] [address] Chief Concern, Brief History of Present Illness, [...] Ellipta 100-62.5-25 MCG/ACT aerosol powder Generic drug: Cabvbconhfb-Vlczzgiov-Ifuhfa INHALE 1 PUFF INTO THE LUNGS DAILY AT 0900. Where to Get Your Medications These medications were sent to [facility] - [place], [place] - [address] [facility] [address] calcium carbonate 500 MG chewable tablet HYDROmorphone [...] 04, 2025 at 1:00PM Dr. Rodney Gonzáles [facility] Specialty Clinic (Oncology) [address] [place] [address] * Care Plan - Sandy Moseley RN [...] and grandson on the bed side when government minister visited and they were appreciative of government minister's visit. Prayer and nicole is important to them. Electrical Estimator supported them emotionallyand spiritually. Referral From: Electrical Estimator Initiated Pastoral Care Provided For: Patient, Spouse, [...] and gratitude, Emotional support, Introduced Patient/Family to Electrical Estimator Services, Supportive Listening, Spiritual support Pastoral Care Outcomes: Patient Outcomes: Expresses acceptance, Demonstrates lower level of Anxious(ness), Is knowledgeableabout Court Reporter Services, Being at peace, Demonstrates and/or verbalizes increased comfort, Endorses increased sense of connection, Expresses intent to participate/comply in plan of care, Expresses e motionally release, Is functionally engaged in meaning making, Gratitude, Expresses feeling spiritually nurtured, Communicates increased satisfaction with hospital experience, Identifies spiritual orreligious practices as helpful, Expresses increased trust in medical team and/or plan of care, Appreciative of Electrical Estimator Support, Expresses being seen and heard Cosigned by Azeb Worthy at 03/23/2025 10:36 AM EDT Associated attestation - Azeb Worthy Billy - 03/23/2025 10:36 AM EDT This is to attest government minister cad intern chart note has been reviewed and [...] 03/20/2025 7:52 PM EDTAssociated Order(s): Consult to [facility] Consult to [facility] Consult performed by: Navi Tripathi MD [...] the pain caused him to present to [facility] ED, where CT scan showed [...] 98%. Results Review {Vanishing Link Review Results :[id number] I have reviewed the latest lab and [...] medication prior to arrival. 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 Patient reports epigastric, LUQ, and RUQ abdominal pain and pressure that began last night. He presented to [facility] for evaluation. He had a [...] and Affect: Mood normal. Behavior: Behavior normal. [place] Coma Scale Score: 15 ED Course & [...] JEFRY TRIPATHIIA SUKUMAR A 03/20/251900 Consult to [facility] Medicine [facility] Specialty: Internal Medicine Provider: (Not yet [...] that began last night. Was seen at [facility] and had CT scan of [...] ESS resident, patient to be admitted to [facility] medicine and transplant teamwill see him tomorrow. No needs overnight. [MR] 1904 Reached out to hospital medicine for admission [MR] 1917 They agree to admit patient to [facility] for multidisciplinary care. They will put in admissionorders and transfer him to [facility]. Patient updated on plan and provided ice [...] transferred to [facility] Admitting/Attending Physician: NAVI TRIPATHI [[id number]] Provider Care Team: [facility]HOANA 11 [[id number]] Are [...] LAB COAGULATION METHOD 03/21/2025 7:00 AM EDT [facility] INR 1.1 0.9 - 1.1 LAB COAGULATION METHOD 03/21/2025 7:00 AM EDT [facility] Blood Venous blood specimen / Unknown Venipuncture / Unknown 03/21/2025 6:32 AM EDT 03/21/2025 6:43 AM EDT Narrative [facility] - 03/21/2025 7:00 AM EDT [...] MD LAB BLOOD ORDERABLE S Final Result [facility] [address] [place] [address] * (ABNORMAL) Comprehensive metabolic panel (03/21/2025 6:32 AM EDT) Pathologist [facility] Glucose, Plasma 107(H) 74 - 99 mg/dL 03/21/2025 7:11 AM EDT [facility] BUN, Plasma 12 8 - 23 mg/dL 03/21/2025 7:11 AM EDT [facility] Creatinine, Plasma 0.77 0.70 - 1.20 mg/dL 03/21/2025 7:11 AM EDT [facility] BUN/Creatinine Ratio 16 03/21/2025 7:11 AM EDT [facility] Sodium, Plasma 139 136 - 145 mmol/L 03/21/2025 7:11 AM EDT [facility] Potassium, Plasma 4.6 3.6 - 4.9 mmol/L 03/21/2025 7:11 AM EDT [facility] Comment:Hemolyzed, result ma y be falsely increased. Chloride, Plasma 105 97 - 107 mmol/L 03/21/2025 7:11 AM EDT [facility] CO2, Plasma 23 22 - 29 mmol/L 03/21/2025 7:11 AM EDT [facility] Anion Gap 11 6 - 16 mmol/L 03/21/2025 7:11 AM EDT [facility] Total Calcium, Plasma 9.4 8.9 - 10.2 mg/dL 03/21/2025 7:11 AM EDT [facility] Total Protein 7.0 6.3 - 7.9 g/dL 03/21/2025 7:11 AM EDT [facility] Albumin, Plasma 3.6 3.5 - 5.2 g/dL 03/21/2025 7:11 AM EDT [facility] AST, Plasma 621(H) 10 - 50 U/L 03/21/2025 7:11 AM EDT [facility] Comment:Hemolyzed, result ma y be falsely increased. ALT, Plasma 48 10 - 50 U/L 03/21/2025 7:11 AM EDT [facility] Alkaline Phosphatase, Plasma 232(H) 40 - 115 U/L 03/21/2025 7:11 AM EDT [facility] Total Bilirubin, Plasma 0.6 0.2 - 1.1 mg/dL 03/21/2025 7:11 AM EDT [facility] eGFRcr 98.7 mL/min/1.7 3m*2 03/21/2025 7:11 AM EDT [facility] Comment:Reported eGFRcr in m L/min/1.73m2 is based the CKD-EPI 2020 equation that does not use a race coefficient. Blood Venous blood specimen / Unknown Venipuncture / Unknown 03/21/2025 6:32 AM EDT 03/21/2025 6:43 AM EDT us Navi Tripathi MD LAB BLOOD ORDERABLE S Final Result [facility] [address] [place] [address] * (ABNORMAL) CBC and Differential (03/21/2025 6:32 AM EDT) WBC Count 6.12 3.70 - 10.30 10*3/uL LAB HEMATOLOGY METHOD 03/21/2025 6:58 AM EDT [facility] RBC Count 4.62 4.60 - 6.10 10*6/uL LAB HEMATOLOGY METHOD 03/21/2025 6:58 AM EDT [facility] HGB 15.2 13.7 - 17.5 g/dL LAB HEMATOLOGY METHOD 03/21/2025 6:58 AM EDT [facility] HCT 45.4 40.0 - 51.0 % LAB HEMATOLOGY METHOD 03/21/2025 6:58 AM EDT [facility] Platelet Count 82(L) 155 - 369 10*3/uL LAB HEMATOLOGY METHOD 03/21/2025 6:58 AM EDT [facility] MCV 98 79 - 98 fL LAB HEMATOLOGY METHOD 03/21/2025 6:58 AM EDT [facility] MCH 32.9(H) 26.0 - 32.0 pg LAB HEMATOLOGY METHOD 03/21/2025 6:58 AM EDT [facility] MCHC 33.5 30.7 - 35.5 g/dL LAB HEMATOLOGY METHOD 03/21/2025 6:58 AM EDT [facility] RDW 16.8(H) 11.5 - 14.5 % LAB HEMATOLOGY METHOD 03/21/2025 6:58 AM EDT [facility] MPV 12.2 8.8 - 12.5 fL LAB HEMATOLOGY METHOD 03/21/2025 6:58 AM EDT [facility] nRBC 0.0 <=0.0 per 100 WBCs LAB HEMATOLOGY METHOD 03/21/2025 6:58 AM EDT [facility] Differential Type Automated LAB HEMATOLOGY METHOD 03/21/2025 6:58 AM EDT [facility] Neutrophils % 55 % LAB HEMATOLOGY METHOD 03/21/2025 6:58 AM EDT [facility] Lymphocytes % 24 % LAB HEMATOLOGY METHOD 03/21/2025 6:58 AM EDT [facility] Monocytes % 17 % LAB HEMATOLOGY METHOD 03/21/2025 6:58 AM EDT [facility] Eosinophils % 2 % LAB HEMATOLOGY METHOD 03/21/2025 6:58 AM EDT [facility] Basophils % 1 % LAB HEMATOLOGY METHOD 03/21/2025 6:58 AM EDT [facility] Immature Granulocytes % 1 % LAB HEMATOLOGY METHOD 03/21/2025 6:58 AM EDT [facility] Neutrophils Absolute 3.46 1.60 - 6.10 10*3/uL LAB HEMATOLOGY METHOD 03/21/2025 6:58 AM EDT [facility] Lymphocytes Absolute 1.45 1.20 - 3.90 10*3/uL LAB HEMATOLOGY METHOD 03/21/2025 6:58 AM EDT [facility] Monocytes Absolute 1.03(H) 0.30 - 0.90 10*3/uL LAB HEMATOLOGY METHOD 03/21/2025 6:58 AM EDT [facility] Eosinophils Absolute 0.11 0.00 - 0.50 10*3/uL LAB HEMATOLOGY METHOD 03/21/2025 6:58 AM EDT [facility] Basophils Absolute 0.04 0.00 - 0.10 10*3/uL LAB HEMATOLOGY METHOD 03/21/2025 6:58 AM EDT [facility] Immature Granulocytes Absolute 0.03 0.00 - 0.06 10*3/uL LAB HEMATOLOGY METHOD 03/21/2025 6:58 AM EDT [facility] Blood Venous blood specimen / Unknown Venipuncture / Unknown 03/21/2025 6:32 AM EDT 03/21/2025 6:43 AM EDT Narrative [facility] - 03/21/2025 6:58 AM EDT Therapeutic decision making should be based on absolute values, rather than percentages. us Navi Tripathi MD LAB BLOOD ORDERABLE S Final Result [facility] [address] [place] [address] * Troponin T, High Sensitivity, 2 Hour, Plasma (03/20/2025 10:54 PM EDT) Troponin T, High Sensitivity, 2 Hour 10 <19 ng/L 03/20/2025 11:31 PM EDT [facility] Blood Venous blood specimen / Unknown Venipuncture / Unknown 03/20/2025 10:54 PM EDT 03/20/2025 11:04 PM EDT Navi Tripathi MD LAB BLOOD ORDERABLE S Final Result [facility] [address] [place] [address] * Troponin now and 120 min (03/20/2025 6:51 PM EDT) Troponin T, High Sensitivity, 0 Hour 9 <19 ng/L 03/20/2025 7:35 PM EDT [facility] Blood Venous blood specimen / Unknown Venipuncture / Unknown 03/20/2025 6:51 PM EDT 03/20/2025 7:09 PM EDT Result [facility] Adrienne SmithTextbroker GENESIS LAB BLOOD ORDERABLES Courtney l Result Performing Organization Address City/[facility]/ZIP Co de Phone Number [facility] [address] [place] [address] * ED HIV 1/2 Antibody/Antigen Screen w/Reflex [...] PM EDT 03/20/2025 7:09 PM EDT Result [facility] Adrienne Driscoll KoinifyTextbroker PA LAB BLOOD ORDERABLES Courtney l Result Performing Organization Address City/[facility]/ZIP Co de Phone Number [facility] [address] [place] [address] * Hepatitis C Antibody - ED (03/20/2025 6:51 PM EDT) [facility] Hepatitis C Antibody Negative Negative 03/20/2025 8:01 PM EDT [facility] Blood Venous blood specimen / Unknown Venipuncture / Unknown 03/20/2025 6:51 PM EDT 03/20/2025 7:09 PM EDT Adrienne A RebsaTextbroker PA LAB BLOOD ORDERABLES Courtney l Result Performing Organization Address City/[facility] Co de Phone Number [facility] [address] [place] [address] * APTT (03/20/2025 6:51 PM EDT) [facility] aPTT 31 25 - 35 sec 03/20/2025 7:25 PM EDT [facility] Blood Venous blood specimen / Unknown Venipuncture / Unknown 03/20/2025 6:51 PM EDT 03/20/2025 7:08 PM EDT Adrienne A KoinifysaTextbroker PA LAB BLOOD ORDERABLES Courtney l Result Performing Organization Address [facility] de Phone Number [facility] [address] [place] [address] * C-Reactive protein (03/20/2025 6:51 PM EDT) [facility] CRP, Plasma 5.2 <=8.0 mg/L 03/20/2025 [...] high sensitivity CRP (CRPH). us Adrienne A RebsaTextbroker PA LAB BLOOD ORDERABLES Courtney l Result Performing Organization Address [facility] Co de Phone Number [facility] [address] [place] [address] * Lactic acid, venous (03/20/2025 6:51 PM EDT) Pathologist [facility] Lactate, Venous, Whole Blood 1.7 0.5 - 2.2 mmol/L LAB HEMATOLOGY METHOD 03/20/2025 7:12 PM EDT [facility] Blood Venous blood specimen / Unknown Venipuncture / Unknown 03/20/2025 6:51 PM EDT 03/20/2025 7:08 PM EDT Adrienne A ClassLink LAB BLOOD ORDERABLES Courtney l Result [facility] [address] [place] [address] * Lipase (03/20/2025 6:51 PM EDT) Pathologist [facility] Lipase, Plasma 19 19 - 63 U/L 03/20/2025 7:35 PM EDT [facility] Blood Venous blood specimen / Unknown Venipuncture / Unknown 03/20/2025 6:51 PM EDT 03/20/2025 7:09 PM EDT Adrienne A Acturis PA LAB BLOOD ORDERABLES Courtney l Result Performing Organization Address City/[facility] Co de Phone Number [facility] [address] [place] [address] * PT-INR (03/20/2025 6:51 PM EDT) [facility] Prothrombin Time 13.8 12.0 - 14.3 [...] H[facility] LAB BLOOD ORDERABLES Courtney vega Result [facility] [address] [place] [phone] * (ABNORMAL) CMP (03/20/2025 6:51 PM EDT) Pathologist [facility] Glucose, Plasma 89 74 - 99 mg/dL 03/20/2025 7:47 PM EDT [facility] BUN, Plasma 15 8 - 23 mg/dL 03/20/2025 7:47 PM EDT [facility] Creatinine, Plasma 0.77 0.70 - 1.20 mg/dL 03/20/2025 7:47 PM EDT [facility] BUN/Creatinine Ratio 19 03/20/2025 7:47 PM EDT [facility] Sodium, Plasma 141 136 - 145 mmol/L 03/20/2025 7:47 PM EDT [facility] Potassium, Plasma 3.9 3.6 - 4.9 mmol/L 03/20/2025 7:47 PM EDT [facility] Chloride, Plasma 102 97 - 107 mmol/L 03/20/2025 7:47 PM EDT [facility] CO2, Plasma 26 22 - 29 mmol/L 03/20/2025 7:47 PM EDT [facility] Anion Gap 13 6 - 16 mmol/L 03/20/2025 7:47 PM EDT [facility] Total Calcium, Plasma 9.6 8.9 - 10.2 mg/dL 03/20/2025 7:47 PM EDT [facility] Total Protein 7.4 6.3 - 7.9 g/dL 03/20/2025 7:47 PM EDT [facility] Albumin, Plasma 3.7 3.5 - 5.2 g/dL 03/20/2025 7:47 PM EDT [facility] AST, Plasma 395(H) 10 - 50 U/L 03/20/2025 7:47 PM EDT [facility] Comment:Hemolyzed, result ma y be falsely increased. ALT, Plasma 43 10 - 50 U/L 03/20/2025 7:47 PM EDT [facility] Alkaline Phosphatase, Plasma 210(H) 40 - 115 U/L 03/20/2025 7:47 PM EDT [facility] Total Bilirubin, Plasma 0.7 0.2 - 1.1 mg/dL 03/20/2025 7:47 PM EDT [facility] eGFRcr 98.7 mL/min/1.7 3m*2 03/20/2025 7:47 PM EDT [facility] Comment:Reported eGFRcr in m L/min/1.73m2 is based the CKD-EPI 2020 equation that does not use a race coefficient. Blood Venous blood specimen / Unknown Venipuncture / Unknown 03/20/2025 6:51 PM EDT 03/20/2025 7:09 PM EDT Adrienne HURTADO LAB BLOOD ORDERABLES Courtney l Result [facility] [address] [place] [address] * (ABNORMAL) CBC w/diff (03/20/2025 6:51 PM EDT) WBC Count 6.84 3.70 - 10.30 10*3/uL LAB HEMATOLOGY METHOD 03/20/2025 7:21 PM EDT [facility] RBC Count 4.63 4.60 - 6.10 10*6/uL LAB HEMATOLOGY METHOD 03/20/2025 7:21 PM EDT [facility] HGB 15.3 13.7 - 17.5 g/dL LAB HEMATOLOGY METHOD 03/20/2025 7:21 PM EDT [facility] HCT 44.8 40.0 - 51.0 % LAB HEMATOLOGY METHOD 03/20/2025 7:21 PM EDT [facility] Platelet Count 79(L) 155 - 369 10*3/uL LAB HEMATOLOGY METHOD 03/20/2025 7:21 PM EDT [facility] MCV 97 79 - 98 fL LAB HEMATOLOGY METHOD 03/20/2025 7:21 PM EDT [facility] MCH 33.0(H) 26.0 - 32.0 pg LAB HEMATOLOGY METHOD 03/20/2025 7:21 PM EDT [facility] MCHC 34.2 30.7 - 35.5 g/dL LAB HEMATOLOGY METHOD 03/20/2025 7:21 PM EDT [facility] RDW 16.5(H) 11.5 - 14.5 % LAB HEMATOLOGY METHOD 03/20/2025 7:21 PM EDT [facility] MPV 11.2 8.8 - 12.5 fL LAB HEMATOLOGY METHOD 03/20/2025 7:21 PM EDT [facility] nRBC 0.0 <=0.0 per 100 WBCs LAB HEMATOLOGY METHOD 03/20/2025 7:21 PM EDT [facility] Differential Type Automated LAB HEMATOLOGY METHOD 03/20/2025 7:21 PM EDT [facility] Neutrophils % 60 % LAB HEMATOLOGY METHOD 03/20/2025 7:21 PM EDT [facility] Lymphocytes % 26 % LAB HEMATOLOGY METHOD 03/20/2025 7:21 PM EDT [facility] Monocytes % 12 % LAB HEMATOLOGY METHOD 03/20/2025 7:21 PM EDT [facility] Eosinophils % 2 % LAB HEMATOLOGY METHOD 03/20/2025 7:21 PM EDT [facility] Basophils % 0 % LAB HEMATOLOGY METHOD 03/20/2025 7:21 PM EDT [facility] Immature Granulocytes % 0 % LAB HEMATOLOGY METHOD 03/20/2025 7:21 PM EDT [facility] Neutrophils Absolute 4.05 1.60 - 6.10 10*3/uL LAB HEMATOLOGY METHOD 03/20/2025 7:21 PM EDT [facility] Lymphocytes Absolute 1.77 1.20 - 3.90 10*3/uL LAB HEMATOLOGY METHOD 03/20/2025 7:21 PM EDT [facility] Monocytes Absolute 0.85 0.30 - 0.90 10*3/uL LAB HEMATOLOGY METHOD 03/20/2025 7:21 PM EDT [facility] Eosinophils Absolute 0.11 0.00 - 0.50 10*3/uL LAB HEMATOLOGY METHOD 03/20/2025 7:21 PM EDT [facility] Basophils Absolute 0.03 0.00 - 0.10 10*3/uL LAB HEMATOLOGY METHOD 03/20/2025 7:21 PM EDT [facility] Immature Granulocytes Absolute 0.03 0.00 - 0.06 10*3/uL LAB HEMATOLOGY METHOD 03/20/2025 7:21 PM EDT [facility] Blood Venous blood specimen / Unknown Venipuncture / Unknown 03/20/2025 6:51 PM EDT 03/20/2025 7:08 PM EDT Narrative [facility] - 03/20/2025 7:21 PM EDT Therapeutic decision making should be based on absolute values, rather than percentages. Adrienne HURTADO LAB BLOOD ORDERABLES Courtney l Result Performing Organization Address City/[facility]/ZIP Co de Phone Number [facility] [address] [place] [address] * EKG now - STAT (adult) (03/20/2025 5:31 PM EDT) EKG DIAGNOSIS CLASS Abnormal MUSE ECG Ventricular Rate 60 BPM MUSE ECG Atrial Rate 60 BPM MUSE ECG UT Interval 176 ms MUSE ECG QRSD Interval 86 ms MUSE ECG QT Interval 422 ms MUSE ECG QTC Interval 422 ms MUSE ECG P [place] 53 degrees MUSE ECG R [place] -37 degrees MUSE ECG T Wave [place] 80 degrees MUSE ECG Diagnosis Atrial-paced rhythm MUSE ECG Diagnosis Left axis deviation MUSE ECG Diagnosis T wave abnormality, consider anterior ischemia MUSE ECG Diagnosis Abnormal ECG MUSE ECG Diagnosis MUSE ECG Diagnosis Confirmed by J Carlos Campbell ([id number]) on 03/20/2025 5:41:58 PM MUSE ECG 03/20/2025 5:31 PM EDT 03/20/2025 5:41 PM EDT Adrienne HURTADO ECG ORDERABLES Final Res ult Performing Organization Address [facility] Co de Phone Number MUSE ECG documented [...] Routine 0810 (Given - Provid er: Sandy Mosleey RN) senna (Senokot) tablet 17.2 mg 17.2 [...] documented as of this encounter Care Teams Record Clerk Salesperson Relationship Specialty Start Date End Date Pcp, Tiki [address] [place] [address] PCP - General Family Medicine 03/20/25 Isabella Saucedo APRN [address] [place] [address] Referring Physician 02/26/25 Jeannie Mcmillan, RN [facility] [address] [place] [address] Registered Nurse Transplant Surgery 03/08/25 [place] [address] Registered Nurse Transplant Surgery 03/08/25 documented as of this encounter
--- OUTSIDE RECORDS SUMMARY | 2025-04-23 09:00 | XMS_ITS | Encounter Summary ---
Author Organization [place] [address] Care Team Providers Care Straw Hat Presser Name Role Phone Jan Sin MD Unavailable [phone] Macario Pryor MD Un[facility] Cr Resendez MD Primary Care Provider Reason for Visit * Reason Comments Annual Exam Encounter Details Date Type Department Care Team (Late st Contact Info) Description 04/23/2025 9:00 AM EDT Office Visit SEP Luis [facility] [place] [address] Cr Resendez MD [address] [place] [address] TRISTIAN MARTINEZ [id number] Encounter for Medicare annual wellness exam (Primary [...] Under treatment with GI and oncology at [facility]. On once monthly chemotherapy atthis time. [...] Currently being treated for hepatocellular carcinoma at [facility] Fall Risk Assessment: Fall Risk Assessment: [...] Under treatment with GI and oncology at [facility]. On once monthly chemotherapy atthis time. [...] prostate cancer screening Bilateral impacted cerumen Orders: [place] REMOVAL IMPACTED CERUMEN IRRIGATION/LVG UNILAT Cerumen impaction [...] visit. If you have a power of district attorney stute, we should also have a [...] provided to the patient digitally through their [employer] account or with a paper copy if the patient doesn't have an active MyChart Account. A copy of today's progress note with recommendations below is alsoavailable electronically for patients with an active [employer] account per the Federal Cures Act. TheAVS [...] disease) (HCC) Depression Headache(784.0) Hypertension Kidney stone [place] (myocardial infarction) (HCC) 4 times Neuromuscular disorder (HCC) back and left leg Other disorders of kidney and ureter trys to go often Shortness of breath Past Surgical History: Procedure Laterality Date BACK SURGERY 08/30/1997 CARDIAC SURGERY cabg 2 times CARDIAC SURGERY 2019 pace maker CATARACT REMOVAL 08/30/2007 COLONOSCOPY N/A 10/14/2015 COLONOSCOPY snare polypectomy; Surgeon: Poppy Quintero MD; Location: [facility]; Service: Endoscopy CORONARY ANGIOPLASTY WITH STENT PLACEMENT 01/04/2024 [facility] EYE SURGERY sandra cataract HERNIA REPAIR NECK SURGERY 12/06/2024 [facility] SPINAL CORD DECOMPRESSION 08/30/1998 UPPER GASTROINTESTINAL ENDOSCOPY N/A 10/30/2015 ESOPHAGOGASTRODUODENOSCOPY with biopsies; Surgeon: Poppy Quintero MD; Location: [facility]; Service: Endoscopy VASCULAR SURGERY spinal [...] Tablet by mouth daily. 90 Tablet 3 jztpubiboge-teajhlnrf-skojiqto (TRELEGY ELLIPTA) 100-62.5-25 mcg Inhl Disk with [...] SHAKE WELL nalOXone (NARCAN) 4 mg/actuation Nasl [place], Non-Aerosol 0.1 mL by Nasal route daily [...] Food Insecurity: Patient Declined (12/07/2024) Received from [facility] Hunger Vital Sign Worried About Running Out of Food in the Last Year: Patient declined Ran Out of Food in the Last Year: Patient declined Transportation Needs: Patient Declined (12/07/2024) Received from [facility] PRAPARE - Transportation Lack of Transportation (Medical): Patient declined Lack of Transportation (Non-Medical): Patient declined Housing Stability: Patient Declined (12/07/2024) Received from [facility] Housing Stability Vital Sign Unable to [...] Type Priority Associated Diagnoses Orde r Schedule [place] REMOVAL IMPACTED CERUMEN IRRIGATION/LVG UNILAT [place] Charge Routine Bilateral impacted cerumen Ordered: 04/23/2025 [...] Procedure Name Priority Date/Time Associated Diagnosis Comments LIPID PANEL REFLEX Routine 04/23/2025 9: 47 [...] hypertension documented in this encounter Results * PROSTATE SPECIFIC ANTIGEN (SCREENING) (04/23/2025 9:47 AM EDT) Total Psa 0.08 <=4.00 ng/mL 04/23/2025 3:49 PM EDT [facility] Blood VENOUS BLOOD / Unknown Venipuncture / Unknown 04/23/2025 9:47 AM EDT 04/23/2025 9:47 AM EDT Narrative [facility] - 04/23/2025 3:49 PM EDT The Ricky [...] hyperplasia or inflammatory conditions of the prostate. Cr Resendez MD CHEMISTRY ORDERABLES Final Res ult [facility] [address] [facility] , [address] [place], [place] [id number] * LIPID PANEL REFLEX (04/23/2025 9:47 AM EDT) Cholesterol 98 <200 mg/dL 04/23/2025 4:37 PM EDT [facility] Comment: < 200 Desirable 200 - 239 Borderline High >= 240 High Triglyceride 38 <150 mg/dL 04/23/2025 4:37 PM EDT [facility] Comment: < 150 Normal 150 - 199 Borderline High 200 - 499 High >= 500 Very High HDL 40 >=40 mg/dL 04/23/2025 4:37 PM EDT [facility] Comment: > 60 Optimal 40 - 60 Acceptable < 40 Low LDL Calculated 47 <100 mg/dL 04/23/2025 4:37 PM EDT [facility] Comment: < 100 Optimal 100 - 129 Near or above optimal 130 - 159 Borderline High 160 - 189 High >= 190 Very High The National Institutes of Health (NIH) equation is used for all lipid panels that report calculated LDL (LDL-C). Non-HDL-C Calculated 58 <=129 mg/dL 04/23/2025 4:37 PM EDT [facility] Comment: <130 Desirable 130-159 Above Desirable 160-189 Borderline High 190-219 High >= 220 Very High Fasting Specimen? Yes None 025 4:37 PM EDT [facility] Blood VENOUS BLOOD / Unknown Venipuncture / Unknown 04/23/2025 9:47 AM EDT 04/23/2025 9:47 AM EDT Cr Resendez MD CHEMISTRY ORDERABLES Final Res ult Performing Organization Address City/[facility]/ZIP Co de Phone Number [facility] [address] [facility] , [place] [address] * TSH REFLEX TO FT4 (04/23/2025 9:47 AM EDT) TSH Reflex 0.889 0.270 - 4.200 mcIU/mL 04/23/2025 4:37 PM EDT [facility] Blood VENOUS BLOOD / Unknown Venipuncture / Unknown 04/23/2025 9:47 AM EDT 04/23/2025 9:47 AM EDT Narrative [facility] - 04/23/2025 4:37 PM EDT Ingestion of fernanda doses of biotin (>5 mg/day) taken within 8 hours of drawing blood sample can interfere with this immunoassay test. us Cr Resendez MD CHEMISTRY ORDERABLES Final Res ult [facility] [address] [facility] , [place] [address] * (ABNORMAL) CBC WITH DIFF (04/23/2025 9:47 AM EDT) WBC 7.3 3.7 - 10.3 x10(3)/mcL 04/23/2025 4:08 PM EDT [facility] RBC 4.77 4.60 - 6.10 x10(6)/mcL 04/23/2025 4:08 PM EDT [facility], [facility] Hgb 15.3 13.7 - 17.5 g/dL 04/23/2025 4:08 PM EDT [facility] Hct 46.8 40.0 - 51.0 % 04/23/2025 4:08 PM EDT [facility], [facility] MCV 98.1 80.0 - 100.0 fL 04/23/2025 4:08 PM EDT [facility] MCH 32.1 26.0 - 34.0 pg 04/23/2025 4:08 PM EDT [facility], [facility] MCHC 32.7 30.7 - 35.5 g/dL 04/23/2025 4:08 PM EDT [facility], [facility] RDW 14.9 <=14.9 % 04/23/2025 4:08 PM EDT [facility], [facility] Platelet 90(L) 155 - 369 x10(3)/mcL 04/23/2025 [...] 4:08 PM EDT [facility] Beadle # 1.2(H) 0.3 - 0.9 x10(3)/mcL 04/23/2025 4:08 PM EDT [facility] Eos # Manual 0.0 0.0 - 0.5 x10(3)/mcL 04/23/2025 4:08 PM EDT [facility] Baso # Manual 0.1 0.0 - 0.1 x10(3)/mcL 04/23/2025 4:08 PM EDT [facility] Polychrom Slight 04/23/2025 4:08 PM EDT [facility] Josephine Cell Moderate 04/23/2025 4:08 PM EDT [facility] Elliptocyte Occasional 04/23/2025 4:08 PM EDT [facility] Target Cell Occasional 04/23/2025 4:08 PM EDT [facility] Blood VENOUS BLOOD / Unknown Venipuncture / Unknown 04/23/2025 9:47 AM EDT 04/23/2025 9:47 AM EDT us Cr Resendez MD HEMATOLOGY ORDERABLES Final Re sult [facility] [address] [facility] , [place] [address] * (ABNORMAL) COMPREHENSIVE METABOLIC PANEL (04/23/2025 9:47 [...] PM EDT [facility] Total Protein 8.3 6.4 - 8.3 gm/dL 04/23/2025 4:37 PM EDT [facility] Bili Total 1.2 0.2 - 1.4 mg/dL 04/23/2025 4:37 PM EDT [facility] ALT 26 <=41 U/L 04/23/2025 4:37 PM EDT [facility] AST 74(H) <=40 U/L 04/23/2025 4:37 PM EDT [facility] Alk Phos 142(H) 40 - 129 U/L 04/23/2025 4:37 PM EDT [facility] eGFR (CKD-EPIcr 2020) 96 >=60 mL/min/1.7 3 m2 04/23/2025 4:37 PM EDT [facility] Comment:Estimated GFR was ca lculated using the CKD-EPIcr (2020) equation refit without race. The equation is recommended by the National Kidney Foundation - [place] [employer] of Nephrology Task Force. Blood VENOUS BLOOD / Unknown Venipuncture / Unknown 04/23/2025 9:47 AM EDT 04/23/2025 9:47 AM EDT Cr Resendez MD CHEMISTRY ORDERABLES Final Res ult Performing Organization Address [facility]/ZIP Co de Phone Number [facility] [address] [place] [address] , [place] [address] * (ABNORMAL) HEMOGLOBIN A1C (04/23/2025 9:47 AM EDT) Hgb A1C 5.7(H) 4.2 - 5.6 % 04/23/2025 5:18 PM EDT [facility] Est. Avg Glucose 117 mg/dL 04/23/2025 5:18 PM EDT [facility] Blood VENOUS BLOOD / Unknown Venipuncture / Unknown 04/23/2025 9:47 AM EDT 04/23/2025 9:47 AM EDT Narrative [facility] - 04/23/2025 5:18 PM EDT REFERENCE RANGE: Normal: 4.0-5.6% Pre-diabetes: 5.7-6.4% Provisional diagnosis of diabetes: >6.4% Hgb F>10% and anything which shortens red cell survival, such as hemolytic anemia, or unstable hemoglobin variants such as HbSS, HbSC, or HbCC, will lower the HbA1c value associated with a given level of glycemic control. Cr Resendez MD CHEMISTRY ORDERABLES Final Res ult Performing Organization Address [facility]/ZIP Co de Phone Number [employer] [address] , [place] [address] documented in this encounter Visit Diagnoses Diagnosis [...] documented as of this encounter Care Teams Straw Hat Presser Relationship Specialty Start Date End Date Macario Pryor MD [address] [place] [address] [place] [address] PCP - Hematology/Oncology Internal Medicine-Medical Oncology 11/12/15 Cr Resendez MD [address] [place] [address] [place] [address] PCP - General Family Medicine 11/24/21 Jan Sin MD [address] [place] [address] [place] [address] Internal Medicine-Cardiovascul ar Disease 08/28/14 documented as of this encounter
--- OUTSIDE RECORDS SUMMARY | 2025-04-23 09:30 | XMS_ITS | Encounter Summary ---
Author Organization [place] [address] Care Team Providers Care Ota Name Role Phone Jan Sin MD Unavailable [phone] Macario Pryor MD Unavailable Cr Rodriguez MD Primary Care Provider [phone] Reason for Visit * Reason Comments Care Management - Face To Face Care Transition Advance Care Planning Encounter Details Date Type Department Care Team (Latest Contact Info) Description 04/23/2025 9:30 AM EDT Clinical Support [facility] [place] [facility] [address] [place] [address] Elizabeth Reynoso, NIURKA Encounter for support and coordination of transition of care (Primary Dx) Social History Tobacco Use Types [...] 04/23/2025 8:00 AM Manisha Roberts RMA * PHQ-9 Total Score Answer Date of Assessment Author 15 04/23/2025 8:00 AM Manisha Roberts RMA * Question Answer Date of Assessment [...] or watching television 3 04/23/2025 8:00 AM IRA[facility] Elizabeth Ortiz RMA Moving or speaking so slowly that other people could have noticed. Or the opposite - being so fidgety or restless that you have been moving around a lot more than usual 0 04/23/2025 8:00 AM EDT Elizabeth Ortiz RMA Thoughts that you would be better off , or of hurting yourself in some way 0 04/23/2025 8:00 AM EDT Elizabeth Ortiz RMA * PHQ-2 Total Score Answer Date of Assessment Author 3 04/23/2025 8:00 AM EDT Manisha Ortiz RMA documented as of this encounter Mental Status * Because of a physical, mental or emotional condition, does this person have serious difficulty concentrating, remembering or making decisions? Answer Entry Date Author No 11/24/2021 10:05 AM EDT Danny Jones MA documented in this encounter Progress Notes * Elizabeth Reynoso RN - 04/23/2025 9:30 AM EDT Patient presents for follow up visit with Office Front End Manager (OCC) Reason for visit: Advanced Care Planning Visit Type: Face to Face Assessment: tool procurement coordinator met with patient and spouse to discuss Advanced Care Planning. Spoke with: Patient Spouse: present Symptoms: Patient denies any symptoms or concerns at this time Advance Care Planning (ACP): See Advance Care Planning Note Tobacco use: Reviewed; patient reports no change in smoking history Health Maintenance: Not discussed Medications: Reviewed during visit with primary care provider Education/handouts: Education: Educated patient on: Advanced Care Planning Handouts: [place] Living Will x 2 copies Handouts provided in person Care Coordination Business Card Goals: One-time assessment Next Steps: Front End Manager contact information given / reviewed Notes: No identified SDOH concerns after SDOH assessment review documented in this encounter Miscellaneous Notes * ACP (Advance Care Planning) - Elizabeth Reynoso RN - 04/23/2025 9:30 AM EDT Advance Care Planning discussion: ACP discussion: This proposal lead writer and patient addressed ACP including explanation and discussion of advance directives.Minutes spent:5 Patient/spouse agrees to reach out if questions/concerns or changes related to Advance Care Planning (ACP) arise. * Patient Instructions - Elizabeth Reynoso RN - 04/23/2025 9:30 AM EDT Images from the original note were not included. documented in this encounter Plan of Treatment [...] Direct < 100 Result Component No Abdiaziz Chneg MD documented as of this encounter Visit Diagnoses Diagnosis Encounter for support and coordination of transition of care- Primary documented in this encounter Additional Health Concerns Assessment Noted Time PHQ-9 Depression Total Score: 15 025 8:00 AM EDT A fall risk assessment has been complete d for the patient 06/20/2024 1:28 PM EDT PHQ-2 Depression Total Score: 3 04/23/20 25 8:00 AM EDT documented as of this encounter Care Teams Ota Relationship Specialty Start Date End Date Macario Pryor MD [address] [place] [address] [place] [address] PCP - Hematology/Oncology Internal Medicine-Medical Oncology 11/12/15 Cr Resendez MD [address] [place] [address] [place]INE[place] [address] PCP - General Family Medicine 11/24/21 Jan Sin MD [address] [place] [address] [place] [address] Internal Medicine-Cardiovascul ar Disease 08/28/14 documented as of this encounter
--- OUTSIDE RECORDS SUMMARY | 2025-05-01 09:27 | XMS_ITS | Encounter Summary ---
Author Organization Healthcare Address [address] [place] [address] Care Team Providers Care Application Tester Name Role Phone Isabella Saucedo Phong BOAT JOINER HELPER Unavailable [phone] Jeannie Mcmillan RN Unavailable [phone] Ebony Shoemaker Unavailable [phone] Pcp, No Primary Care Provider Unavailabl e Encounter Details Date Type Department Care Team (Late st Contact Info) Description 03/20/2025 Orders Only External Location 800 [place] [address] Provider, External Social History Tobacco Use Types [...] documented as of this encounter Care Teams Application Tester Relationship Specialty Start Date End Date Pcp, No [address] [place] [address] PCP - General Family Medicine 03/20/25 Isabella Saucedo APRN [address] [place] [address] [address] [place] [address] Referring Physician 02/26/25 Jeannie Mcmillan, RN [facility] [address] [place] [address] Registered Nurse Transplant Surgery 03/08/25 [place] [address] Registered Nurse Transplant Surgery 03/08/25 documented as of this encounter
--- OUTSIDE RECORDS SUMMARY | 2025-05-01 09:27 | XMS_ITS | Encounter Summary ---
Author Organization [place] [address] Care Team Providers Care Travel Rn Or Name Role Phone Jan Sin MD Unavailable [phone] Macario Pryor MD Un[facility] Cr Resendez MD Primary Care Provider [phone] Reason for Visit * Reason Onset Date Comments Central Patient Navigator Outreach 04/19/2025 AWV Questionnaire Encounter Details Date Type Department Care Team (Late st Contact Info) Description 04/19/2025 Patient Outreach SEP [facility] [address] [place] [address] Cr Resendez MD [address] [place] [address] [place] [address] Central Patient Navigator Outreach (AWV Questionnaire/) Social [...] Questionnaires Attempt Count: inbound Care Gaps Addressed masonry supervisor: Medicare Questionnaire Outcome:Medicare Questionnaire completed Call back number: [phone] * Esme Mendez - 04/19/2025 10:38 AM EDT Patient Outreach: Pre-Visit Questionnaires Attempt Count: 1st Care Gaps Addressed masonry supervisor: Medicare Questionnaire Outcome:MyChart Message Sent and Patient not available Call back number: [phone] documented in this encounter Plan of Treatment [...] documented as of this encounter Care Teams Travel Rn Or Relationship Specialty Start Date End Date Macario Pryor MD [address] [place] [address] [place] [address] PCP - Hematology/Oncology Internal Medicine-Medical Oncology 11/12/15 Cr Resendez MD [address] [place] [address] [place] [address] PCP - General Family Medicine 11/24/21 Jan Sin MD [address] [place] [address] [place] [address] Internal Medicine-Cardiovascul ar Disease 08/28/14 documented as of this encounter
--- OUTSIDE RECORDS SUMMARY | 2025-05-01 09:27 | XMS_ITS | Encounter Summary ---
Author Organization [place] [address] Care Team Providers Care Setter Molding And Coremaking Machines Name Role Phone Jan Sin MD Unavailable [phone] Macario Pryor MD Unavailable Unavailabl e Cr Resendez MD Primary Care Provider Encounter Details Date Type Department Care Team (Latest Contact Info) Description 04/24/2025 Results Follow-Up SEP Luis [address] [place] [address] Cr Resendez MD [address] [place] [address] [place] [address] HEMOGLOBIN A1C, COMPREHENSIVE METABOLIC PANEL, CBC [...] [facility]. A1c was slightly elevated in the [...] documented as of this encounter Care Teams Setter Molding And Coremaking Machines Relationship Specialty Start Date End Date Macario Pryor MD [address] [place] [address] [place] [address] PCP - Hematology/Oncology Internal Medicine-Medical Oncology 11/12/15 Cr Resendez MD [address] [place] [address] [place] [address] PCP - General Family Medicine 11/24/21 Jan Sin MD [address] [place] [address] [place] [address] Internal Medicine-Cardiovascul ar Disease 08/28/14 documented as of this encounter
--- OUTSIDE RECORDS SUMMARY | 2025-05-01 09:27 | XMS_ITS | Encounter Summary ---
Author Organization [place] [address] Care Team Providers Care Project Structural Engineer Name Role Phone Jan Sin MD Unavailable [phone] Macario Pryor MD Unavailable Unavailabl e Cr Resendez MD Primary Care Provider [phone] Reason for Visit * Reason Comments Medication Refill Encounter Details Date Type Department Care Team (Late st Contact Info) Description 04/26/2025 Refill SEP Luis [facility] [address] Cr Resendez MD [address] [place] [address] [place] [address] Medication Refill Social History Tobacco Use Types [...] Tablet by mouth once daily 30 Tablet 04/26/2025 fluticasone-umeclid in-vilanter (TRELEGY ELLIPTA) 100-62.5-25 mcg Inhl Disk with DeviceIndications:C hronic bronchitis, unspecified chronic bronchitis type (HCC) Inhale 1 Puff into the lungs daily at 0900. 180 Each 1 04/26/2025 documented in this encounter Miscellaneous Notes * Telephone Encounter - Ariel Minaya CPhT - 04/26/2025 2:02 PM EDT AMELIE Future Visit: na Last Assessed Visit: 04/23/25 Follow-Up: 10/24/25 All protocols passed. Refills approved and sent to requesting pharmacy. Routed to [facility] if an appointment is needed. clopidogreL There is no CRS protocol for this medication. documented in this encounter Plan of Treatment [...] as of this encounter Visit Diagnoses Diagnosis Chronic bronchitis, unspecified chronic bronchitis type (HCC) documented in this encounter Discontinued Medications Medication Sig Discontinue Reason Start Date End Da te jyoczzxnyjx-kpzmpijsw-vfj anter (TRELEGY ELLIPTA) 100-62.5-25 mcg Inhl Disk with DeviceIndications:Chronic bronchitis, unspecified chronic bronchitis type (HCC) Inhale 1 Puff into the lungs daily at 0900. 09/07/2024 04/26/2025 clopidogreL (PLAVIX) 75 mg Oral Tablet Take 1 Tablet by mouth once daily 03/27/2025 04/26/2025 documented as of this encounter Additional Health Concerns Assessment Noted Time PHQ-9 Depression Total Score: 15 025 8:00 AM EDT A fall risk assessment has been complete d for the patient 06/20/2024 1:28 PM EDT PHQ-2 Depression Total Score: 3 04/23/20 25 8:00 AM EDT documented as of this encounter Care Teams Project Structural Engineer Relationship Specialty Start Date End Date Macario Pryor MD [address] [place] [address] [place] [address] PCP - Hematology/Oncology Internal Medicine-Medical Oncology 11/12/15 Cr Resendez MD [address] [place] [address] [place] [address] PCP - General Family Medicine 11/24/21 Jan Sin MD [address] [place] [address] [place] [address] Internal Medicine-Cardiovascul ar Disease 08/28/14 documented as of this encounter
--- OUTSIDE RECORDS SUMMARY | 2025-05-01 09:27 | XMS_ITS | Encounter Summary ---
Author Organization [place] [address] Care Team Providers Care Learning Coach Name Role Phone Jan Sin MD Unavailable [phone] Macario Pryor MD Unavailable Unavailabl e Cr Resendez MD Primary Care Provider [phone] Reason for Visit * Reason Onset Date Comments Other 01/25/2025 insurance compan y called asking if office can watch for active patient verification form was rec'd. Please advise. Encounter Details Date Type Department Care Team (Late st Contact Info) Description 01/25/2025 Telephone ABDULLAHI RODRIGUEZ [address] [place] [address] [place] [address] Cr Resendez MD [address] [place] [address] [place] [address] Other (insurance company called asking if [...] documented as of this encounter Care Teams Learning Coach Relationship Specialty Start Date End Date Macario Pryor MD [address] [place] [address] [place] [address] PCP - Hematology/Oncology Internal Medicine-Medical Oncology 11/12/15 Cr Resendez MD [address] [place] [address] [place] [address] PCP - General Family Medicine 11/24/21 Jna Sin MD [address] [place] [address] [place] [address] Internal Medicine-Cardiovascul ar Disease 08/28/14 documented as of this encounter
--- OUTSIDE RECORDS SUMMARY | 2025-05-01 09:27 | XMS_ITS | Encounter Summary ---
Author Organization Healthcare Address [address] [place] [address] Care Team Providers Care Special Assemblies Supervisor Name Role Phone Isabella Saucedo Phong STUDENT AFFAIRS DEAN Unavailable [phone] Jeannie Mcmillan RN Unavailable [phone] Ebony Shoemaker Unavailable [phone] Pcp, No Primary Care Provider Unavailabl e Encounter Details Date Type Department Care Team (Late st Contact Info) Description 03/20/2025 Orders Only External Location [address] [place] [address] Provider, External Social History Tobacco Use Types [...] documented as of this encounter Care Teams Special Assemblies Supervisor Relationship Specialty Start Date End Date Pcp, No [address] [place] [address] PCP - General Family Medicine 03/20/25 Isabella Saucedo APRN [address] [place] [address] [address] [place] [address] Referring Physician 02/26/25 Jeannie Mcmillan, RN [facility] [address] [place] [address] Registered Nurse Transplant Surgery 03/08/25 [place] [address] Registered Nurse Transplant Surgery 03/08/25 documented as of this encounter
--- OUTSIDE RECORDS SUMMARY | 2025-05-01 09:27 | XMS_ITS | Encounter Summary ---
Author Organization Healthcare Address [address] [place] [address] Care Team Providers Care Research Group Director Name Role Phone Isabella Saucedo Phong GASKET INSPECTOR Unavailable [phone] Jeannie Mcmillan RN Unavailable [phone] Ebony Shoemaker Unavailable [phone] Pcp, No Primary Care Provider Unavailabl e Encounter Details Date Type Department Care Team (Late st Contact Info) Description 03/20/2025 Orders Only External Location [address] [place] [address] Provider, External Social History Tobacco Use Types [...] documented as of this encounter Care Teams Research Group Director Relationship Specialty Start Date End Date Pcp, No [address] [place] [address] PCP - General Family Medicine 03/20/25 Isabella Saucedo APRN [address] [place] [address] [address] [place] [address] Referring Physician 02/26/25 Jeannie Mcmillan, RN [facility] [address] [place] [address] Registered Nurse Transplant Surgery 03/08/25 [place] [address] Registered Nurse Transplant Surgery 03/08/25 documented as of this encounter
--- OUTSIDE RECORDS SUMMARY | 2025-05-01 09:27 | XMS_ITS | Encounter Summary ---
Author Organization Healthcare Address [address] [place] [address] Care Team Providers Care Otolaryngology Surgeon Name Role Phone LewisIsabella Phong INVESTIGATOR CASH SHORTAGE Unavailable [phone] Jeannie Mcmillan RN Unavailable [phone] Ebony Shoemaker Unavailable [phone] Pcp, No Primary Care Provider Unavailabl [...] documented as of this encounter Care Teams Otolaryngology Surgeon Relationship Specialty Start Date End Date Pcp, [address] [address] PCP - General Family Medicine 03/20/25 Isabella Saucedo APRN [facility] [address] [place] [address] Referring Physician 02/26/25 Jeannie Mcmillan, RN [facility] [address] [place] [address] Registered Nurse Transplant Surgery 03/08/25 [place] [address] Registered Nurse Transplant Surgery 03/08/25 documented as of this encounter
--- OUTSIDE RECORDS SUMMARY | 2025-05-01 09:28 | XMS_ITS | Encounter Summary ---
Author Organization [facility] Address [address] [place] [address] Care Team Providers Care Patient Assessment Coordinator Name Role Phone Lewis Isabella Darling DIRECTOR OF COMMUNITY LIFE Unavailable [phone] Jeannie Mcmillan RN Unavailable [phone] Ebony Shoemaker Unavailable [phone] Pcp, No Primary Care Provider Unavailabl e Rodney Gonzáles MD Unavailable [phone] Reason for Visit * Reason Comments Txp Surgical Follow-up Encounter Details Date Type Department Care Team (Late st Contact Info) Description 04/06/2025 Telephone [facility] [address] [facility] [address] [place] [address] Ebony Shoemaker [place] [phone] Txp Surgical Follow-up Social History Tobacco Use [...] AM EDT I spoke with Veronica the department of natural resources officer with Isabella Kitchen' office. She said that [...] chemo. He does not follow with a tax associate attorney per Ashley. Added to Dr. Do's discussion [...] documented as of this encounter Care Teams Patient Assessment Coordinator Relationship Specialty Start Date End Date Pcp, [address] [address] PCP - General Family Medicine 03/20/25 Isabella Saucedo APRN 1210 [facility] [address] [place] [address] Referring Physician 02/26/25 Jeannie Mcmillan, RN [facility] [address] [place] [address] Registered Nurse Transplant Surgery 03/08/25 [place] [address] Registered Nurse Transplant Surgery 03/08/25 Rodney Gonzáles MD 1210 [facility] [address] [place] [address] Medical Oncologist 04/10/25 documented as of this encounter
--- OUTSIDE RECORDS SUMMARY | 2025-05-01 09:29 | XMS_ITS | Encounter Summary ---
Author Organization [facility] Address [address] [place] [address] Care Team Providers Care Board Of Directors Name Role Phone Isabella Saucedo ORDER PLANNER Unavailable Reason for Referral * Consultation (Routine) - Closed Specialty Diagnoses / Procedures Referred By Contac t Referred To Contact Transplant Diagnoses Elevated AFP Liver lesion Hepatic cirrhosis, unspecified hepatic cirrhosis type, unspecified whether ascites present (CMS/HCC) Isabella Saucedo APRN 1210 [facility] [address] [place] [address] Phone: tel: fax: [facility]plant Center [address] [address] Phone: tel: fax: Referral ID Status Reason Start Date Expiration Date V isits Requested Visits Authorized [id number] Closed Specialty Services Required 03/06/2025 09/05/2026 1 1 Encounter Details Date Type Department Care Team (Late st Contact Info) Description 03/06/2025 Telephone [facility] [address] [address] Cici Ramírez [place] [phone] Social History Tobacco Use Types Packs/Day Years [...] LAB COAGULATION METHOD 03/14/2025 9:44 AM EDT [facility] INR 1.0 0.9 - 1.1 LAB COAGULATION METHOD 03/14/2025 9:44 AM EDT [facility] Blood Venous blood specimen / Unknown Venipuncture / Unknown 03/14/2025 8:38 AM EDT 03/14/2025 9:03 AM EDT Narrative [facility] - 03/14/2025 9:44 AM [...] of recurrent RI INR 2.5 to 3.5 Peter Do MD LAB BLOOD ORDERABLES Final Result [facility] [address] [place] [address] * (ABNORMAL) CBC w/o differential (03/14/2025 8:38 AM EDT) WBC Count 5.56 3.70 - 10.30 10*3/uL LAB HEMATOLOGY METHOD 03/14/2025 9:51 AM EDT [facility] RBC Count 4.98 4.60 - 6.10 10*6/uL LAB HEMATOLOGY METHOD 03/14/2025 9:51 AM EDT [facility] HGB 15.9 13.7 - 17.5 g/dL LAB HEMATOLOGY METHOD 03/14/2025 9:51 AM EDT [facility] HCT 48.7 40.0 - 51.0 % LAB HEMATOLOGY METHOD 03/14/2025 9:51 AM EDT [facility] Platelet Count 96(L) 155 - 369 10*3/uL LAB HEMATOLOGY METHOD 03/14/2025 9:51 AM EDT [facility] MCV 98 79 - 98 fL LAB HEMATOLOGY METHOD 03/14/2025 9:51 AM EDT [facility] MCH 31.9 26.0 - 32.0 pg LAB HEMATOLOGY METHOD 03/14/2025 9:51 AM EDT [facility] MCHC 32.6 30.7 - 35.5 g/dL LAB HEMATOLOGY METHOD 03/14/2025 9:51 AM EDT [facility] RDW 17.2(H) 11.5 - 14.5 % LAB HEMATOLOGY METHOD 03/14/2025 9:51 AM EDT [facility] MPV 11.0 8.8 - 12.5 fL LAB HEMATOLOGY METHOD 03/14/2025 9:51 AM EDT [facility] nRBC 0.0 <=0.0 per 100 WBCs LAB HEMATOLOGY METHOD 03/14/2025 9:51 AM EDT [facility] Blood Venous blood specimen / Unknown Venipuncture / Unknown 03/14/2025 8:38 AM EDT 03/14/2025 9:03 AM EDT us Peter Do MD LAB BLOOD ORDERABLES Final Result [facility] [address] [place] [address] * (ABNORMAL) Comprehensive Metabolic Panel (03/14/2025 8:38 AM EDT) Glucose, Plasma 104(H) 74 - 99 mg/dL 03/14/2025 9:30 AM EDT [facility] BUN, Plasma 12 8 - 23 mg/dL 03/14/2025 9:30 AM EDT [facility] Creatinine, Plasma 0.80 0.70 - 1.20 mg/dL 03/14/2025 9:30 AM EDT [facility] BUN/Creatinine Ratio 15 03/14/2025 9:30 AM EDT [facility] Sodium, Plasma 142 136 - 145 mmol/L 03/14/2025 9:30 AM EDT [facility] Potassium, Plasma 3.8 3.6 - 4.9 mmol/L 03/14/2025 9:30 AM EDT [facility] Chloride, Plasma 102 97 - 107 mmol/L 03/14/2025 9:30 AM EDT [facility] CO2, Plasma 28 22 - 29 mmol/L 03/14/2025 9:30 AM EDT [facility] Anion Gap 12 6 - 16 mmol/L 03/14/2025 9:30 AM EDT [facility] Total Calcium, Plasma 9.8 8.9 - 10.2 mg/dL 03/14/2025 9:30 AM EDT [facility] Total Protein 8.0(H) 6.3 - 7.9 g/dL 03/14/2025 9:30 AM EDT [facility] Albumin, Plasma 4.2 3.5 - 5.2 g/dL 03/14/2025 9:30 AM EDT [facility] AST, Plasma 78(H) 10 - 50 U/L 03/14/2025 9:30 AM EDT [facility] ALT, Plasma 50 10 - 50 U/L 03/14/2025 9:30 AM EDT [facility] Alkaline Phosphatase, Plasma 210(H) 40 - 115 U/L 03/14/2025 9:30 AM EDT [facility] Total Bilirubin, Plasma 0.8 0.2 - 1.1 mg/dL 03/14/2025 9:30 AM EDT [facility] eGFRcr 97.6 mL/min/1.7 3m*2 03/14/2025 9:30 AM EDT [facility] Comment:Reported eGFRcr in m L/min/1.73m2 is based the CKD-EPI 2020 equation that does not use a race coefficient. Blood Venous blood specimen / Unknown Venipuncture / Unknown 03/14/2025 8:38 AM EDT 03/14/2025 9:03 AM EDT Peter Do MD LAB [place] [address] * (ABNORMAL) CEA, Serum (03/14/2025 8:38 AM EDT) CEA, Serum 5.2(H) <4.0 ng/mL 03/14/2025 10:22 AM EDT [facility] Blood Venous blood specimen / Unknown Venipuncture / Unknown 03/14/2025 8:38 AM EDT 03/14/2025 9:03 AM EDT Narrative [facility] - 03/14/2025 10:22 AM EDT Normal range for smokers: < 5.5 ng/ml Normal range for non-smokers: <=4.0 ng/ml Performed by Ricky electrochemiluminescent immunoassay. Results obtained with different test methods or kits cannot be used interchangeably. Peter Do MD LAB BLOOD ORDERABLES Final Result Performing Organization Address [facility] [place] [address] * Cancer Antigen, GI (CA 19.9) (03/14/2025 8:38 AM EDT) CA 19.9 26.5 <36 U/mL 03/14/2025 10:22 AM EDT [facility] Blood Venous blood specimen / Unknown Venipuncture / Unknown 03/14/2025 8:38 AM EDT 03/14/2025 9:03 AM EDT Narrative [facility] - 03/14/2025 10:22 AM EDT Performed by Ricky electrochemiluminescent immunoassay. Results obtained with different test methods or kits cannot be used interchangeably. Peter Do MD LAB BLOOD ORDERABLES Final Result [facility] [address] [place] [address] * (ABNORMAL) Alpha Fetoprotein, Serum (03/14/2025 8:38 AM EDT) Alpha Fetoprotein, Serum 1,098.0(H) <10.0 ng/mL 03/14/2025 10:22 AM EDT [facility] Blood Venous blood specimen / Unknown Venipuncture / Unknown 03/14/2025 8:38 AM EDT 03/14/2025 9:03 AM EDT Narrative [facility] - 03/14/2025 10:22 AM EDT Performed by Ricky electrochemiluminescent immunoassay which is traceable to the 1st AFP IRP WHO Reference standard 72/255. Results obtained with different test methods or kits cannot be used interchangeably. us Peter Do MD LAB BLOOD ORDERABLES Final Result [facility] [address] [place] [address] documented in this encounter Visit Diagnoses Diagnosis Liver lesion- Primary Other specified disorders of liver Elevated AFP Other nonspecific findings on examination of blood Hepatic cirrhosis, unspecified hepatic cirrhosis type, unspecified whether ascites present (CMS/HCC) Other abnormal tumor markers documented in this encounter Care Teams Board Of Directors Relationship Specialty Start Date End Date Isabella Saucedo APRN [address] [place] [address] [place] [address] Referring Physician 02/26/25 documented as of this encounter
--- OUTSIDE RECORDS SUMMARY | 2025-05-01 09:29 | XMS_ITS | Clinical Summary ---
Author Organization [facility] Address [facility] [place] [place] [address] Care Team Providers Care Survey Associate Name Role Phone Cr Resendez MD Primary Care Provider [phone] Source Comments This information has been disclosed [...] therelease of HIV test results or diagnoses. [id number] Health Allergies Active Allergy Reactions [...] PM EDT Active naloxone (NARCAN) 4 mg/actuation [place] Apply 1 spray in one nostril if [...] by Redo CABG 6 mo later at [facility] with grafts 2009 Social History Tobacco Use Types Packs/Day Years Used Date Smoking Tobacco: Some Days Cigarettes Passive Smoke Exposure: Current Tobacco Cessation:Ready to Q uit: Not Asked; Counseling Given: Not Answered Utilities Answer Date Recorded In the past 12 months has th e [employer] gas, oil, or water [employer] threatened to shut off services in your [...] any time in the past 12 m [facility], were you homeless or living in a snf (including now)? Patient declined 12/07/2024 Sex and [...] 05/08/2019, 07/18/2012 Medical Devices Implanted Type Area Requirements Engineer Device Identifier Shelf Expiration Date Model / Serial / Lot Cage Spnl 6mm 8d Sm Eit Crv Intrbd Fs Strl Lf - [id number] Implanted:Qty: 1 on 12/11/2024 by Nayan Mayo MD at [facility] Main Cage N/A: Spine Cervical DEPUY SPINE 02/26/2026 [id number] / / Graft Bn Bn Fbr 1cc Algrf Frzdr Pliafx [facility] - [id number] Implanted:Qty: 1 on 12/11/2024 by Nayan Mayo MD at [facility] Main Graft N/A: Spine Cervical LIFE NET 02/21/2028 [id number] / [id number] / Icd ICD [employer] D233 / / Description:St Chava RA: [id number] 200M RV: [id number] NOT MR CONDITIONAL OF 12/07/2024 - 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 SCS Plate Bone [place] Titanium 14 Mm Prebent L12 Mm X W16 Mm X H2.5 Mm Spine Cervical Anterior 1 Level Nonsterile - [id number] Implanted:Qty: 1 on 12/11/2024 by Nayan Mayo MD at [facility] Main Plate N/A: Spine Cervical DEPUY SPINE [id number] 12 / / Screw Bone [place] Titanium L16 Mm Od4 Mm Spine Cervical Anterior Variable Self Drill Nonsterile - [id number] Implanted:Qty: 4 on 12/11/2024 by Nayan Mayo MD at [facility] Main Screw N/A: Spine Cervical DEPUY SPINE -0 16 / / Procedures Procedure Name Priority Date/Time Associated Diagnosis Comments RENAL FUNCTION PANEL W/EGFR Routine 12/14/2024 7:00 AM EDT from Last 3 Months or Most Recently Relevant to Health Maintenance Results * (ABNORMAL) Renal Function Panel w/EGFR (12/14/2024 7:00 AM EDT) Sodium 136 133 - 146 mmol/L 12/14/2024 7:50 AM EDT [facility] Potassium 3.9 3.5 - 5.3 mmol/L 12/14/2024 7:50 AM EDT [facility] Chloride 102 98 - 110 mmol/L 12/14/2024 7:50 AM EDT [facility] CO2 27 21 - 33 mmol/L 12/14/2024 7:50 AM EDT [facility] Anion Gap 7 3 - 16 mmol/L 12/14/2024 7:50 AM EDT [facility] BUN 19 7 - 25 mg/dL 12/14/2024 7:50 AM EDT [facility] Creatinine 0.66 0.60 - 1.30 mg/dL 12/14/2024 7:50 AM EDT [facility] Glucose 126(H) 70 - 100 mg/dL 12/14/2024 7:50 AM EDT [facility] Calcium 8.3(L) 8.6 - 10.3 mg/dL 12/14/2024 7:50 AM EDT [facility] Phosphorus 2.7 2.1 - 4.5 mg/dL 12/14/2024 7:50 AM EDT [facility] Albumin 2.7(L) 3.5 - 5.7 g/dL 12/14/2024 7:50 AM EDT [facility] Osmolality, Calculated 286 278 - 305 mOsm/kg 12/14/2024 7:50 AM EDT [facility] EGFR >90 12/14/2024 7:50 AM EDT [facility] Comment: As of 2021, the estimated [...] Landry MD LAB BLOOD ORDERABLES nal Result Performing Organization Address City/State/[facility] Co de Phone Number [facility] [address] from Last 3 Months or Most Recently Relevant to Health Maintenance Insurance MEDICARE A AND B MEDICAID [place] MEDICAID DENTAL Advance Directives For more information, please contact: [phone] * Full Code (Latest Code Status on File) Date Activated Date Inactivated Comments 12/07/2024 12:02 AM 12/14/2024 8:22 PM Care Teams Survey Associate Relationship Specialty Start Date End Date Cr Resendez MD [address] [place] [address] TRISTIAN MARTINEZ [id number] PCP - General Family Medicine 12/07/24
--- OUTSIDE RECORDS SUMMARY | 2025-05-01 09:29 | XMS_ITS | Clinical Summary ---
Author Organization [facility] Address [address] [facility] [address] [place] [id number] Phone Care Team Providers Care Gardener Name Role Phone Leander RIOS, [facility] Conditions or Problems Problem Name Problem Code Onset Date Status Entry Date Provider Comment Standard Description Annotate FOLLOW-UP EXAMINATION FOLLOWING OTHER SURGERY Z09 (ICD-10-CM) 10/20 Active 10/20 Emily Kern MA Encounter for follow-up examination after completed treatment for conditions other than malignant neoplasm BACK PAIN, LUMBAR, WITH RADICULOPATHY [id number] (SNOMED CT) Active Emily Kern MA Lumbar radiculopathy Medications Medication Instructions Start Date Stop Date Generic Name [facility] Provider MELOXICAM 15 MG TABS 1 daily Non-[place] 8 MELOXICAM [id number] Emily Kern MA METOPROLOL TARTRATE 25 MG TABS 1 daily Non-[place] 8 METOPROLOL TARTRATE [id number] Emily Wilsonriccardo WILL PRAVASTATIN SODIUM 40 MG TABS 1 daily Non-[place] 8 PRAVASTATIN SODIUM [id number] Emily Wilsonriccardo WILL PLAVIX 75 MG TABS 1 daily Non-[place] 8 CLOPIDOGREL BISULFATE 76624625584 Emily Wilsonriccardo WILL LISINOPRIL 5 MG TABS 1 daily Non-[place] 8 LISINOPRIL 09942013240 Emily Wilsonriccardo WILL ASPIRIN ADULT LOW STRENGTH 81 MG TBEC 1 daily Non-[place] 8 ASPIRIN 74343089848 Emilynathaniel Kern MA ALPRAZOLAM 1 MG TABS 1 qhs Non-[place] 8 ALPRAZOLAM 89535739945 Emily Kern MA HYDROCODONE-BRENNAN TAMINOPHEN 10-650 MG ORAL TABLET 1 qid Non-[place] 8 HYDROCODONE-AC ETAMINOPHEN 83222964787 Emily Kern MA GABAPENTIN 600 MG TABS 2 q morning & 3 q evening [facility] 8 GABAPENTIN [id number] Emily Kern MA RANEXA 500 MG ORAL TABLET EXTENDED RELEASE 12 HOUR 1 bid [facility] 8 RANOLAZINE [phone] Emily Kern MA Medications Administered No information [...]
--- OUTSIDE RECORDS SUMMARY | 2025-05-01 09:29 | XMS_ITS | Clinical Summary ---
Author Organization Healthcare Address [address] [place] [address] Care Team Providers Care Film Masker Name Role Phone Isabella Saucedo Phong GYNECOLOGY TEACHER Unavailable [phone] Jeannie Mcmillan RN Unavailable [phone] Ebony Shoemaker Unavailable [phone] Pcp, No Primary Care Provider Unavailabl e Rodney Gonzáles MD Unavailable [phone] Allergies Active Allergy Reactions Criticality Noted [...] Type Department Care Team Description 04/06/2025 Telephone [facility] [address] [place] [address] Ebony Shoemaker Txp Surgical Follow-up 03/20/2025 4:39 PM EDT - 03/21/2025 6:51 PM EDT Hospital Encounter [facility] Inpatient [address] [place] [address] Saleh, Clotilde EMD Deuce Patricia Therese A, MD Sayers, Anne E, MD Epigastric pain (Primary Dx); Hepatocellular carcinoma; Alcoholic cirrhosis of liver without ascites (CMS/HCC) Discharge Disposition: Home or Self Care 03/20/2025 Travel 03/20/2025 Orders Only External Location [address] [place] [address] Provider, External 03/20/2025 Orders Only External Location [address] [place] [address] Provider, External 03/20/2025 Orders Only External Location [address] [place] [address] Provider, External 03/16/2025 Telephone [facility] [address] [place] [phone] Ebony Shoemaker Txp Surgical Follow-up (Ernestina: Tumor Board Discussion 03/16/25) 03/14/2025 11:20 AM EDT - 03/14/2025 11:59 PM EDT Hospital Encounter [facility] [address] [place] [address] Elevated AFP; Liver lesion; Hepatic cirrhosis, unspecified hepatic cirrhosis type, unspecified whether ascites present (CMS/HCC) Discharge Disposition: Home or Self Care 03/14/2025 10:00 AM EDT Office Visit [facility] [place] [address] [address] Peter Do MD HCC (hepatocellular carcinoma) (Primary Dx) 03/14/2025 Orders Only [facility] [address] [place] [phone] Ebony Shoemaker Liver lesion (Primary Dx); Elevated AFP; Hepatic cirrhosis, unspecified hepatic cirrhosis type, unspecified whether ascites present (CMS/HCC) 03/14/2025 Travel 03/10/2025 Travel 03/07/2025 Travel 03/06/2025 Telephone [facility] [place] [address] [address] Cici Ramírez 03/06/2025 Telephone [facility] [address] [place] [address] Angelita Reeves Appointment 03/05/2025 Telephone [facility] [address] [place] [address] Angelita Reeves Appointment 02/26/2025 Telephone [facility] [address] [place] [phone] Angelita Reeves Referral - Liver Txp 02/26/2025 Community [facility] [address] [place] [address] Isabella Saucedo APRN Invasion of liver, gallbladder, pancreas, ipsilateral branch of portal vein, 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) (Primary Dx); Elevated alpha fetoprotein; Hepatic cirrhosis, unspecified hepatic cirrhosis type, unspecified whether ascites present (CMS/HCC) 02/19/2025 [facility] [address] [place] [address] Isabella Saucedo APRN Elevated alpha fetoprotein (Primary Dx); Liver tumor 02/09/2025 11:02 AM EDT - 02/09/2025 11:59 PM EDT Hospital Encounter [facility] [address] [place] [address] Abnormality of alphafetoprotein; Other specified [...] Last Done Comments [facility]-/Child/Adol SDOH Screenings 1960 [id number] Vaccine (#1) 1963 [facility]- SDOH Screenings 1976 [...] INR 2.5 to 3.5 Prevention of recurrent [place] INR 2.5 to 3.5 us Leelee Tripathi MD LAB BLOOD ORDERABLE S Final Result [facility] [address] [place] [address] * (ABNORMAL) CBC and Differential (03/21/2025 6:32 [...] Narrative [facility] - 03/21/2025 6:58 AM EDT Therapeutic decision making should be based on absolute values, rather than percentages. us Leelee Tripathi MD LAB BLOOD ORDERABLE S Final Result [facility] [address] [place] [address] * (ABNORMAL) Comprehensive metabolic panel (03/21/2025 6:32 [...] ORDERABLE S Final Result Performing Organization Address City/[facility]/ZIP Co de Phone Number [facility] [address] [place] [address] * Troponin T, High Sensitivity, 2 Hour, Plasma (03/20/2025 10:54 PM EDT) Troponin T, High Sensitivity, 2 Hour 10 <19 ng/L 03/20/2025 11:31 PM EDT [facility] Blood Venous blood specimen / Unknown Venipuncture / Unknown 03/20/2025 10:54 PM EDT 03/20/2025 11:04 PM EDT Leelee Tripathi MD LAB BLOOD ORDERABLE S Final Result Performing Organization Address City/[facility] Co de Phone Number [facility] [address] [place] [address] * ED HIV 1/2 Antibody/Antigen Screen w/Reflex to HIV 1/2 Differentiation (03/20/2025 6:51 PM EDT) [facility] HIV 1 & 2 Antibody/Antigen Screen Non Reactive Non Reactive 03/20/2025 8:05 PM EDT [facility] Comment:Screening for HIV 1 & 2 antibodies, and P24 antigen is NONREACTIVE. No confirmatory testing is required. Blood Venous blood specimen / Unknown Venipuncture / Unknown 03/20/2025 6:51 PM EDT 03/20/2025 7:09 PM EDT Dedra HURTADO LAB BLOOD ORDERABLES Courtney l Result Performing Organization Address City/[facility]/ZIP Co de Phone Number [facility] [address] [place] [address] * Troponin now and 120 min (03/20/2025 6:51 PM EDT) Troponin T, High Sensitivity, 0 Hour 9 <19 ng/L 03/20/2025 7:35 PM EDT [facility] Blood Venous blood specimen / Unknown Venipuncture / Unknown 03/20/2025 6:51 PM EDT 03/20/2025 7:09 PM EDT Result [facility] Dedra A Rebsamen PA LAB BLOOD ORDERABLES Courtney l Result Performing Organization Address City/[facility] Co de Phone Number [facility] [address] [place] [address] * Lactic acid, venous (03/20/2025 6:51 PM EDT) Pathologist [facility] Lactate, Venous, Whole Blood 1.7 0.5 - 2.2 mmol/L LAB HEMATOLOGY METHOD 03/20/2025 7:12 PM EDT [facility] Blood Venous blood specimen / Unknown Venipuncture / Unknown 03/20/2025 6:51 PM EDT 03/20/2025 7:08 PM EDT Result [facility] Dedra [employer] PA LAB BLOOD ORDERABLES Courtney l Result Performing Organization Address [facility] Co de Phone Number [facility] [address] [place] [address] * Hepatitis C Antibody - ED (03/20/2025 6:51 PM EDT) Pathologist [facility] Hepatitis C Antibody Negative Negative 03/20/2025 8:01 PM EDT [facility] Blood Venous blood specimen / Unknown Venipuncture / Unknown 03/20/2025 6:51 PM EDT 03/20/2025 7:09 PM EDT Result [facility] Dedra Driscoll [employer] PA LAB BLOOD ORDERABLES Courtney l Result Performing Organization Address City/[facility] Co de Phone Number [facility] [address] [place] [address] * APTT (03/20/2025 6:51 PM EDT) Pathologist [facility] aPTT 31 25 - 35 sec 03/20/2025 7:25 PM EDT [facility] Blood Venous blood specimen / Unknown Venipuncture / Unknown 03/20/2025 6:51 PM EDT 03/20/2025 7:08 PM EDT Dedra A [employer] LAB BLOOD ORDERABLES Courtney l Result Performing Organization Address [facility] Co de Phone Number [facility] [address] [place] [address] * C-Reactive protein (03/20/2025 6:51 PM EDT) [facility] CRP, Plasma 5.2 <=8.0 mg/L 03/20/2025 7:35 PM EDT [facility] Blood Venous blood specimen / Unknown Venipuncture / Unknown 03/20/2025 6:51 PM EDT 03/20/2025 7:09 PM EDT Narrative [facility] - 03/20/2025 7:35 PM EDT This CRP test is appropriate for assessment of infection, systemic inflammation and/or tissue injury. To assess cardiovascular disease risk order high sensitivity CRP (CRPH). us [employer] LAB BLOOD ORDERABLES Courtney l Result Performing Organization Address [facility] Co de Phone Number [facility] [address] [place] [address] * Lipase (03/20/2025 6:51 PM EDT) [facility] Lipase, Plasma 19 19 - 63 U/L 03/20/2025 7:35 PM EDT [facility] Blood Venous blood specimen / Unknown Venipuncture / Unknown 03/20/2025 6:51 PM EDT 03/20/2025 7:09 PM EDT us Dedra A [employer] LAB BLOOD ORDERABLES Courtney l Result Performing Organization Address City/[facility] Co de Phone Number [facility] [address] [place] [address] * EKG now - STAT (adult) (03/20/2025 5:31 PM EDT) [facility] EKG DIAGNOSIS CLASS Abnormal MUSE ECG Ventricular Rate 60 BPM MUSE ECG Atrial Rate 60 BPM MUSE ECG MT Interval 176 ms MUSE ECG QRSD Interval 86 ms MUSE ECG QT Interval 422 ms MUSE ECG QTC Interval 422 ms MUSE ECG P Bryan 53 degrees MUSE ECG R Bryan -37 degrees MUSE ECG T Wave Bryan 80 degrees MUSE ECG Diagnosis Atrial-paced rhythm MUSE ECG Diagnosis Left axis deviation MUSE ECG Diagnosis T wave abnormality, consider anterior ischemia MUSE ECG Diagnosis Abnormal ECG MUSE ECG Diagnosis MUSE ECG Diagnosis Confirmed by J Carlos Campbell ([id number]) on 03/20/2025 5:41:58 PM MUSE ECG 03/20/2025 [...] 1,098.0(H) <10.0 ng/mL 03/14/2025 10:22 AM EDT [facility] Blood Venous blood specimen / Unknown Venipuncture / Unknown 03/14/2025 8:38 AM EDT 03/14/2025 9:03 AM EDT Narrative [facility] - 03/14/2025 10:22 AM EDT Performed by Ricky electrochemiluminescent immunoassay which is traceable to the 1st AFP IRP WHO Reference standard 72/255. Results obtained with different test methods or kits cannot be used interchangeably. Peter Do MD LAB BLOOD ORDERABLES Final Result Performing Organization Address City/[facility]/ZIP Co de Phone Number [facility] [address] [place] [address] * Cancer Antigen, GI (CA 19.9) (03/14/2025 8:38 AM EDT) CA 19.9 26.5 <36 U/mL 03/14/2025 10:22 AM EDT [facility] Blood Venous blood specimen / Unknown Venipuncture / Unknown 03/14/2025 8:38 AM EDT 03/14/2025 9:03 AM EDT Narrative [facility] - 03/14/2025 10:22 AM EDT Performed by Ricky electrochemiluminescent immunoassay. Results obtained with different test methods or kits cannot be used interchangeably. Peter Do MD LAB BLOOD ORDERABLES Final Result Performing Organization Address City/[facility]/ZIP Co de Phone Number [facility] [address] [place] [address] * (ABNORMAL) CBC w/o differential (03/14/2025 8:38 AM EDT) WBC Count 5.56 3.70 - 10.30 10*3/uL LAB HEMATOLOGY METHOD 03/14/2025 9:51 AM EDT [facility] RBC Count 4.98 4.60 - 6.10 10*6/uL LAB HEMATOLOGY METHOD 03/14/2025 9:51 AM EDT [facility] HGB 15.9 13.7 - 17.5 g/dL LAB HEMATOLOGY METHOD 03/14/2025 9:51 AM EDT [facility] HCT 48.7 40.0 - 51.0 % LAB HEMATOLOGY METHOD 03/14/2025 9:51 AM EDT [facility] Platelet Count 96(L) 155 - 369 10*3/uL LAB HEMATOLOGY METHOD 03/14/2025 9:51 AM EDT [facility] MCV 98 79 - 98 fL LAB HEMATOLOGY METHOD 03/14/2025 9:51 AM EDT [facility] MCH 31.9 26.0 - 32.0 pg LAB HEMATOLOGY METHOD 03/14/2025 9:51 AM EDT [facility] MCHC 32.6 30.7 - 35.5 g/dL LAB HEMATOLOGY METHOD 03/14/2025 9:51 AM EDT [facility] RDW 17.2(H) 11.5 - 14.5 % LAB HEMATOLOGY METHOD 03/14/2025 9:51 AM EDT [facility] MPV 11.0 8.8 - 12.5 fL LAB HEMATOLOGY METHOD 03/14/2025 9:51 AM EDT [facility] nRBC 0.0 <=0.0 per 100 WBCs LAB HEMATOLOGY METHOD 03/14/2025 9:51 AM EDT [facility] Blood Venous blood specimen / Unknown Venipuncture / Unknown 03/14/2025 8:38 AM EDT 03/14/2025 9:03 AM EDT us Peter Do MD LAB BLOOD ORDERABLES Final Result [facility] [address] [place] [address] * (ABNORMAL) CEA, Serum (03/14/2025 8:38 AM EDT) CEA, Serum 5.2(H) <4.0 ng/mL 03/14/2025 10:22 AM EDT [facility] Blood Venous blood specimen / Unknown Venipuncture / Unknown 03/14/2025 8:38 AM EDT 03/14/2025 9:03 AM EDT Narrative [facility] - 03/14/2025 10:22 AM EDT Normal range for smokers: < 5.5 ng/ml Normal range for non-smokers: <=4.0 ng/ml Performed by Ricky electrochemiluminescent immunoassay. Results obtained with different test methods or kits cannot be used interchangeably. us Peter Do MD LAB BLOOD ORDERABLES Final Result [facility] [address] [place] [address] * CT Abdomen w and wo IV [...] are consistent with and integrated into the [place] [employer] Liver Diseases [...] are consistent with and integrated into the [place] Associationfor the Study of Liver Diseases (AASLD) [...] MD on 02/09/2025 3:29 PM Isabella Saucedo GYNECOLOGY TEACHER IMG CT PROCEDURES Final Re sult from Last 3 Months Insurance MEDICAID-[place] MEDICARE Advance Directives * Full Code (Latest Code Status on File) Date Activated Date Inactivated Comments 03/20/2025 7:46 PM 03/21/2025 8:56 PM Question Answer Comments I have reviewed the capacity from the link above and, if needed, have updated to appropriate status: Yes Care Teams Film Masker Relationship Specialty Start Date End Date Pcp, No [address] [place] [address] PCP - General Family Medicine 03/20/25 Isabella Saucedo APRN [address] [address] [place] [address] Referring Physician 02/26/25 Jeannie Mcmillan, RN [facility] [address] [place] [phone] Registered Nurse Transplant Surgery 03/08/25 [place] [address] Registered Nurse Transplant Surgery 03/08/25 Rodney Gonzáles MD [address] [facility] [address] [place] [address] Medical Oncologist 04/10/25
--- OUTSIDE RECORDS SUMMARY | 2025-05-01 09:29 | XMS_ITS | Clinical Summary ---
Author Organization [facility] Address [address] [place] [address] Phone Care Team Providers Care Diagnostic Radiologist Name Role Phone Jan Sin MD Unavailable [phone] Macario Pryor MD [facility]available [facility] Primary Care Provider [phone] Allergies Active Allergy Reactions Criticality Noted Date [...] daily. 90 Tablet 3 09/07/19 25 Active albuterol (PROVENTIL HFA;VENTOLIN HFA) 90 mcg/actuation Inhl HFA Aerosol Inhaler INHALE 2 PUFFS BY MOUTH FOUR TIMES DAILY 25.5 g 09/28/19 25 Active nalOXone (NARCAN) 4 mg/actuation Nasl [place], Non-Aerosol 0.1 mL by Nasal route daily [...] needed. 60 Tablet 2 02/13/20 25 Active HYDROmorphone (DILAUDID) 4 mg Oral [...] Take 0.5 Tablets by mouth daily. 03/29/20 25 Active prochlorperazine (COMPAZINE) 10 mg Oral Tablet Take 10 mg by mouth every 6 hours as needed. for nausea and vomiting 03/27/20 25 Active senna (SENOKOT) 8.6 mg Oral Tablet Take 17.2 mg by mouth nightly. 03/21/20 25 Active polyethylene glycol 3350 4 gram Oral Powder in Packet 03/21/20 Active fluticasone-umecl idin-vilanter (TRELEGY ELLIPTA) 100-62.5-25 mcg Inhl Disk with DeviceIndications :Chronic bronchitis, unspecified chronic bronchitis type (HCC) Inhale 1 Puff into the lungs daily at 0900. 180 Each 1 04/26/20 Active clopidogreL (PLAVIX) 75 mg Oral Tablet Take 1 Tablet by mouth once daily 30 Tablet 04/26/20 25 Active tamsulosin (FLOMAX) 0.4 mg Oral CapsuleIndication s:Kidney stones Take 1 Capsule by mouth daily. 90 Capsule 3 08/02/20 23 2024 Discontinued(P atient Reported not taking medication) coQ10, ubiquinol, 100 mg Oral Capsule 100 mg. 01/11/20 24 2024 Discontinued(P atient Reported not taking medication) sacubitriL-valsar cazares (ENTRESTO) 24-26 mg Oral Tablet Take 1 Tablet by mouth twice daily. 200 Tablet 2 08/04/20 24 2024 Discontinued(P atient Reported not taking medication) oxyCODONE 10 mg Oral Tablet TAKE 1 TABLET BY ORAL ROUTE 4 TIMES A DAY FOR 28 DAYS M54.17 09/01/19 25 2024 Discontinued(P atient Reported not taking medication) fluticasone-umecl idin-vilanter (TRELEGY ELLIPTA) 100-62.5-25 mcg Inhl Disk with DeviceIndications :Chronic bronchitis, unspecified chronic bronchitis type (HCC) Inhale 1 Puff into the lungs daily at 0900. 1 Each 5 09/07/19 25 2024 Discontinued atorvastatin (LIPITOR) 20 mg Oral TabletIndications :S/P CABG x 4 Take 1 Tablet by mouth nightly. 90 Tablet 3 01/31/20 25 2024 Discontinued(P atient Reported not taking medication) clopidogreL (PLAVIX) 75 mg Oral Tablet Take 1 Tablet by mouth once daily 30 Tablet 03/27/20 25 2024 Discontinued Active Problems Patient Care Coordination No te Formatting of this note migh t be different from the original. hillary stevens contracts signed 04/19/12 [facility]05/01/15 #[id number] [facility] 12/12/15 ,02/28/16 [id number],04/09/16 [id number], 11/27/16 [facility] 06/08/14,12/12/15, 10/02/16 Problem Noted Date Diagnosed Date Hepatocellular carcinoma 04/23/2025 Assessment & Plan (04/23/2025 9:20 AM EDT): Under treatment with GI and oncology at [facility]. On once monthly chemotherapy at this time. [...] (12/01/2022): Added automatically from request for surgery [id number] Mixed simple and mucopurulent chronic bronchitis 11/26/2022 Assessment & Plan (04/23/2025 9:20 AM EDT): Stable on Trelegy continue current regiment Assessment & Plan (12/21/2024 9:37 AM EDT): Orders: BASIC METABOLIC PANEL; Future Assessment & Plan (09/07/2024 10:49 AM EST): Orders: auqdxemlwkm-rmygesxck-geilsmeb (TRELEGY ELLIPTA) 100-62.5-25 mcg Inhl Disk with [...] CABG 6 mo later at [facility] with // patent grafts 2009 Unspecified essential hypertension Assessment & Plan (04/23/2025 [...] 07/04/2015 S/P coronary angiogram 08/31/201407/04 Overview (08/31/2014): [facility] 10/15/2009 four out of four grafts, [...] Encounters Date Type Department Care Team Description 04/26/2025 Refill [facility] Luis Walsh [place] [address] Cr Resendez MD Medication Refill 04/24/2025 Results Follow-Up ABDULLAHI Walsh [place] [address] Cr Resendez MD HEMOGLOBIN A1C, COMPREHENSIVE METABOLIC PANEL, CBC WITH DIFF, Additional followed-up results: 3 04/23/2025 9:30 AM EDT Clinical Support ABDULLAHI Walsh [place] [address] Elizabeth Reynoso, RN Encounter for support and coordination of transition of care (Primary Dx) 04/23/2025 9:00 AM EDT Office Visit ABDULLAHI Wlash [place] [address] Cr Resendez MD Encounter for Medicare annual wellness exam (Primary Dx); Hepatocellular carcinoma (HCC); Chronic systolic congestive heart failure (HCC); Mixed simple and mucopurulent chronic bronchitis (HCC); Unspecified essential hypertension; Screening for prostate cancer; Bilateral impacted cerumen 04/19/2025 Patient Outreach [facility] [address] [place] [address] Cr Resendez MD Central Patient Navigator Outreach (AWV Questionnaire/) 03/26/2025 Refill [facility] [address] [place], [place] [address] Cr Resendez MD Medication Refill 02/22/2025 Telephone SEP [address] [place] [address] Cr Resendez MD Paperwork/forms 02/20/2025 Refill SEP [address] [place] [address] Cr Resendez MD Medication Refill 02/12/2025 Refill SEP [address] [place] [address] Cr Resendez MD Medication Refill 01/29/2025 Refill SEP [address] [place] [address] Cr Resendez MD Medication Refill from Last 3 Months Immunizations Immunization Administration [...] 10/14/2015 N/A COLONOSCOPY snare polypectomy; Surgeon: Poppy Quitnero MD; Location: [facility]; Service: Endoscopy UPPER GASTROINTESTINAL ENDOSCOPY 10/30/2015 N/A ESOPHAGOGASTRODUODENOSC OPY with biopsies; Surgeon: Poppy Quintero MD; Location: [facility]; Service: Endoscopy CARDIAC SURGERY 08/30/2018 - 08/29/2019 [employer] [facility] CORONARY ANGIOPLASTY WITH STENT PLACEMENT 01/04/2024 [facility] NECK SURGERY 12/06/2024 [facility] Medical History Medical History Date Comments COPD (chronic obstructive pu lmonary disease) ([facility]) Shortness of breath Blood circulation, collateral fe et and hands get cold since cabg CAD (coronary artery disease) Hypertension PR (myocardial infarction) ([facility]) 4 times Arthritis Headache(784.0) Neuromuscular disorder ([facility]) lennox k and left leg [...] 60-74 years 1-dose series) 2018 COVID-19 Vaccine (1 - 2023- season) 2024 Influenza Vaccine (#1) 2025 , [...] Cheng MD Medical Devices Implanted Type Area Bicycle Mechanic Device Identifier Shelf Expiration Date Model / Serial / Lot [employer] Vigilant ICD D233 / / [employer] Lead Lead [id number] / / St. [...] <200 mg/dL 04/23/2025 4:37 PM EDT [facility] [employer] Comment: < 200 Desirable 200 - 239 Borderline High >= 240 High Triglyceride 38 <150 mg/dL 04/23/2025 4:37 PM EDT [facility] [employer] Comment: < 150 Normal 150 - 199 Borderline High 200 - 499 High >= 500 Very High HDL 40 >=40 mg/dL 04/23/2025 4:37 PM EDT [facility] [employer] Comment: > 60 Optimal 40 - 60 Acceptable < 40 Low LDL Calculated 47 <100 mg/dL 04/23/2025 4:37 PM EDT [facility] [employer] [facility] Comment: < 100 Optimal 100 - 129 Near or above optimal 130 - 159 Borderline High 160 - 189 High >= 190 Very High The National Institutes of Health (NIH) equation is used for all lipid panels that report calculated LDL (LDL-C). Non-HDL-C Calculated 58 <=129 mg/dL 04/23/2025 4:37 PM EDT [facility] [employer] Comment: <130 Desirable 130-159 Above Desirable 160-189 Borderline High 190-219 High >= 220 Very High Fasting Specimen? Yes None 025 4:37 PM EDT [facility] [employer] Blood VENOUS BLOOD / Unknown Venipuncture / Unknown 04/23/2025 9:47 AM EDT 04/23/2025 9:47 AM EDT us Cr Resendez MD CHEMISTRY ORDERABLES Final Res ult [facility] [employer] [address] [facility] , [place] [address] * TSH REFLEX TO FT4 (04/23/2025 9:47 AM EDT) TSH Reflex 0.889 0.270 - 4.200 mcIU/mL 04/23/2025 4:37 PM EDT [facility] [employer] [facility] Blood VENOUS BLOOD / Unknown Venipuncture / Unknown 04/23/2025 9:47 AM EDT 04/23/2025 9:47 AM EDT Narrative [facility] [employer] - 04/23/2025 4:37 PM EDT Ingestion of fernanda doses of biotin (>5 mg/day) taken within 8 hours of drawing blood sample can interfere with this immunoassay test. Cr Resendez MD CHEMISTRY ORDERABLES Final Res ult Performing Organization Address [facility] de Phone Number [facility] [employer] , [place] [address] * PROSTATE SPECIFIC ANTIGEN (SCREENING) (04/23/2025 9:47 AM EDT) Total Psa 0.08 <=4.00 ng/mL 04/23/2025 3:49 PM EDT [facility] [employer] Blood VENOUS BLOOD / Unknown Venipuncture / Unknown 04/23/2025 9:47 AM EDT 04/23/2025 9:47 AM EDT Narrative [facility] - 04/23/2025 3:49 PM EDT The [...] Final Res ult Performing Organization Address [facility] Co de Phone Number [facility] [employer] , [place] [address] * (ABNORMAL) CBC WITH DIFF (04/23/2025 9:47 AM EDT) WBC 7.3 3.7 - 10.3 x10(3)/mcL 04/23/2025 4:08 PM EDT [facility] [employer] RBC 4.77 4.60 - 6.10 x10(6)/mcL [...] 4:08 PM EDT [facility] [place] # 1.2(H) 0.3 - 0.9 x10(3)/mcL 04/23/2025 4:08 PM EDT [facility] Eos # Manual 0.0 0.0 - 0.5 x10(3)/mcL 04/23/2025 4:08 PM EDT [facility] Baso # Manual 0.1 0.0 - 0.1 x10(3)/mcL 04/23/2025 4:08 PM EDT [facility] Polychrom Slight 04/23/2025 4:08 PM EDT [facility] [place] Cell Moderate 04/23/2025 4:08 PM EDT [facility] Elliptocyte Occasional 04/23/2025 4:08 PM EDT [facility] Target Cell Occasional 04/23/2025 4:08 PM EDT [facility] [employer] Blood VENOUS BLOOD / Unknown Venipuncture / Unknown 04/23/2025 9:47 AM EDT 04/23/2025 9:47 AM EDT Cr Resendez MD HEMATOLOGY ORDERABLES Final Re sult Performing Organization Address City/[facility] Co de Phone Number [facility] [employer] [address] [facility] , [place] [address] * (ABNORMAL) HEMOGLOBIN A1C (04/23/2025 9:47 AM EDT) Hgb A1C 5.7(H) 4.2 - 5.6 % 04/23/2025 5:18 PM EDT [facility] [employer] [facility] Est. Avg Glucose 117 mg/dL 04/23/2025 5:18 PM EDT [facility] [employer] [facility] Blood VENOUS BLOOD / Unknown Venipuncture / Unknown 04/23/2025 9:47 AM EDT 04/23/2025 9:47 AM EDT Narrative [facility] [employer] - 04/23/2025 5:18 PM EDT REFERENCE [...] ORDERABLES Final Res ult [facility] [address] [facility] , [place] [address] * (ABNORMAL) COMPREHENSIVE METABOLIC PANEL (04/23/2025 9:47 [...] m2 04/23/2025 4:37 PM EDT [facility] [employer] Comment:Estimated GFR was ca lculated using the CKD-EPIcr (2020) equation refit without race. The equation is recommended by the National Kidney Foundation - English Society of Nephrology Task Force. Blood VENOUS BLOOD / Unknown Venipuncture / Unknown 04/23/2025 9:47 AM EDT 04/23/2025 9:47 AM EDT us Cr Resendez MD CHEMISTRY ORDERABLES Final Res ult [facility] [address] [facility] , [place] [address] * SCANNED LABS (04/07/2025 1:31 PM EDT) [...] CLINICAL HISTORY: Z13.6-Encounter for screening for cardiovascular vitjmieke-[id number]-CM. COMPARISON: CT abdomen pelvis from 09/07/2023 PROCEDURE COMMENTS: Routine sonographic evaluation of the abdominal aorta with energy conservation representative images sent to PACS along with filter press supervisor notes. FINDINGS: The abdominal aorta is normal in caliber. Maximum transverse diameter is 2.4 cm. Atherosclerotic change in the aorta and iliac vessels noted unchanged from the recent CT Procedure Note Cr Ramachandran MD - 12/16/2023 AAA SCREENING EXAM MEDICARE, 12/16/2023 9:55 AM CLINICAL HISTORY: Z13.6-Encounter for screening for cardiovascular [id number]-CM. COMPARISON: CT abdomen pelvis from 09/07/2023 PROCEDURE COMMENTS: Routine sonographic evaluation of the abdominal aortawith energy conservation representative images sent to PACS along with filter press supervisor notes. FINDINGS: The abdominal aorta is normal [...] of the ordering clinician. Cr Resendez MD [facility] ORDERABLES Final Result * COLONOSCOPY (01/13/2023 1:07 [...] Role Casper Pena MD Performing Provider Raymond Harris, NIURKA Alterations Manager Gurvinder Garner MD Anesthesiologist Mary Jo Romero [...] e Non-Reacti ve 11/24/2021 3:20 PM EDT [employer] [facility] Blood VENOUS BLOOD / Unknown Venipuncture / Unknown 11/24/2021 10:38 AM EDT 11/24/2021 10:43 AM EDT us Cr Resendez MD HEMATOLOGY ORDERABLES Final Re sult [facility] [address] [place] [address] from Last 3 Months or Most Recently Relevant to Health Maintenance Insurance [place] [address] MED[place] [address] [place] [address] [place] Care Teams Diagnostic Radiologist Relationship Specialty Start Date End Date Macario Pryor MD [address] [place] [address] [place] [address] PCP - Hematology/Oncology Internal Medicine-Medical Oncology 11/12/15 Cr Resendez MD [address] [place] [address] [place] [address] PCP - General Family Medicine 11/24/21 Jan Sin MD [address] [place] [address] [place] [address] Internal Medicine-Cardiovascul ar Disease 08/28/14
--- OUTSIDE RECORDS SUMMARY | 2025-05-01 09:29 | XMS_ITS | Encounter Summary ---
Author Organization [place] [address] Care Team Providers Care Science Teacher Name Role Phone Jan Sin MD Unavailable [phone] Maacrio Pryor MD Unavailable Unavailabl e Cr Resendez MD Primary Care Provider [phone] Reason for Visit * Reason Comments Medication Refill Encounter Details Date Type Department Care Team (Late st Contact Info) Description 03/26/2025 Refill SEP Luis [facility] [place] [address] Cr Resendez MD [address] [place] [address] [place] [address] Medication Refill Social History Tobacco Use Types [...] by mouth once daily 30 Tablet 03/27/2025 04/26/2025 documented in this encounter Plan of Treatment [...] documented as of this encounter Care Teams Science Teacher Relationship Specialty Start Date End Date Macario Pryor MD [address] [place] [address] [place] [address] PCP - Hematology/Oncology Internal Medicine-Medical Oncology 11/12/15 Cr Resendez MD [address] [place] [address] [place] [address] PCP - General Family Medicine 11/24/21 Jan Sin MD [address] [place] [address] [place] [address] Internal Medicine-Cardiovascul ar Disease 08/28/14 documented as of this encounter
--- OUTSIDE RECORDS SUMMARY | 2025-05-01 09:29 | XMS_ITS | Encounter Summary ---
Author Organization Healthcare Address [address] [place] [address] Care Team Providers Care Head Charger Name Role Phone Isabella Saucedo ROCK WOOL INSULATOR Unavailable [phone] Jeannie Mcmillan RN Unavailable [phone] Eb[address] Shoemaker Unavailable [phone] Pcp, No Primary Care Provider Unavailabl e Rodney Gonzáles MD Unavailable [phone] Reason for Referral * Transplant (Routine) [...] present (CMS/HCC) Isabella Saucedo APRN [address] [place] [employer] [address] [place] [address] Phone: tel: fax: Referral ID Status Reason Start Date Expiration Date Visits Requested Visits Authorized [id number] Authorized Specialty Services Required 02/26/[phone] Encounter Details Date Type Department Care Team (Late st Contact Info) Description 02/26/2025 Community [facility] Community Practice [address] [place] [address] Isabella Saucedo APRN [address] [place] [employer] [address] [place] [address] Invasion of liver, gallbladder, pancreas, ipsilateral branch [...] (CMS/HCC) documented in this encounter Care Teams Head Charger Relationship Specialty Start Date End Date Pcp, No [address] [place] [address] PCP - General Family Medicine 03/20/25 Isabella Saucedo APRN 1210 [facility] [address] [place] [address] Referring Physician 02/26/25 Jeannie Mcmillan, RN [facility] [address] [place] [address] Registered Nurse Transplant Surgery 03/08/25 [place] [address] Registered Nurse Transplant Surgery 03/08/25 oRdney Gonzáles MD 1210 [facility] [address] [place] [address] Medical Oncologist 04/10/25 documented as of this encounter
--- OUTSIDE RECORDS SUMMARY | 2025-05-01 09:29 | XMS_ITS | Encounter Summary ---
Author Organization [facility] Address [address] [place] [address] Care Team Providers Care Applied Statistician Name Role Phone Isabella Saucedo MACERATOR OPERATOR Unavailable [phone] Reason for Referral * Consultation (Routine) - Pending Review Specialty Diagnoses / Procedures Referred By Contac t Referred To Contact Transplant Diagnoses End-stage liver disease (CMS/HCC) Haroon Cannon MD [address] [address] Phone: tel: fax: [facility] [address] [address] Phone: tel: fax: Referral ID Status Reason Start Date Expiration Date Visits Requested Visits Authorized [id number] Pending Review Specialty Services Required 03/06/2025 09/05/2026 1 1 Reason for Visit * Reason Comments Appointment Encounter Details Date Type Department Care Team (Late st Contact Info) Description 03/06/2025 Telephone [facility] [address] [address] [place] [address] Appointment Social History Tobacco Use [...] name and contact information. Invite sent to [employer] via text message. Called referring providers office, [...] disease documented in this encounter Care Teams Applied Statistician Relationship Specialty Start Date End Date Isabella Saucedo APRN [address] [place] [address] [place] [address] Referring Physician 02/26/25 documented as of this encounter
--- NOTE | 2025-05-01 09:30 | CA_ITS ---
APPROVED REPORT EXAM: Comprehensive 2D, Doppler, and color-flow Echocardiogram Office Machines Wirer: Taniya Yuan, RT(R) Ht: 5 ft 9 in Wt: 134lbs BSA: 1.74 BP: 123/51 mmHg Indications: CABG x 2, shortness of breath, liver cancer and currently undergoing immunotherapy Echo Enhancing Agent Indication: Endocardial border delineation Agent(s) / Amount(s) Used: Definity 2 cc 2D Dimensions LA Volume 18.60 mL LA Volume Index 10.69 mL/m2 (M/F) 16-34 M-Mode Dimensions RVDd 2.15 cm (0.9-2.6) LA Diam 2.89 cm (1.9-4.0) LVDd 5.17 cm (3.5-5.7) LVDs 4.53 cm (3.5-5.7) IVSd 0.91 cm (0.6-1.1) PWd 0.84 cm (0.6-1.1) EF (Teich) 26.50% FS 12.40% EDV (Teich) 127.80 mL ESV (Teich) 93.90 mL LV Diastology E Decel Time 150 (160-240 msec) E/A Ratio 0.6 Aortic Valve VERA Index 1.44 cm2/m2 AoV Peak Marlon. 185.0 (50-130 cm/s) AI PHT 492.00 ms AO Peak GR. 13.70 mmHg AO Mean GR. 6.70 (<5 mmHg) AO VTI 39.2 (18-25 cm) VERA (VTI) 2.56 (2.5-4.5 cm2) Mitral Valve MV E Max Marlon. 71.0 (40-130 cm/s) MV A Velocity 119.0 (40-130 cm/s) E/A Ratio 0.60 MV PHT 44.0 ms Tricuspid Valve TR P. Velocity 280.00 cm/s Left Ventricle The left ventricle is normal size. The LV apical wall appears aneurysmal. Left ventricular systolic function is mildly reduced. There is increased left ventricular wall thickness. There is akinesis of the LV apical wall. Grade 1 diastolic dysfunction is present. No left ventricle thrombus noted on this study. LVEF is 40-45% Right Ventricle The right ventricle is normal size. The right ventricular systolic function is normal. Atria The left atrium is mildly dilated. The right atrium size is normal. There is no color Doppler evidence of interatrial shunt. Aortic Valve The aortic valve is mildly thickened. There is no hemodynamically significant aortic valvular stenosis. Moderate to severe aortic regurgitation. Mitral Valve The mitral valve is mildly thickened. No evidence of mitral valve stenosis. Mild mitral regurgitation. Tricuspid Valve The tricuspid valve leaflets are thin and pliable. Mild tricuspid regurgitation. RVSP is 30-35 mmHg. Pulmonic Valve The pulmonary valve is grossly normal in structure. Trace pulmonic valve regurgitation is present. Great Vessels The aortic root is normal in size. IVC is normal in size and collapses >50% with inspiration. Pericardium There is no pericardial effusion. Other Information Study Quality: Fair Conclusion Normal LV size with mildly reduced LV systolic function (LVEF 40-45%). The LV apical wall appears aneurysmal. There is akinesis of the LV apical wall. No evidence of LV thrombus with administration of ultrasound enhancing agent. Mild LA dilation. Moderate to severe AI. Mild MR, mild TR. Electronically signed by : Rylie Bates MD 05/01/2025 12:46:03
--- OUTSIDE RECORDS SUMMARY | 2025-05-01 09:30 | XMS_ITS | Encounter Summary ---
Author Organization Healthcare Address [address] [place] [address] Care Team Providers Care Assistant Secretary Name Role Phone Isabella Saucedo BOX LINER Unavailable [phone] Jeannie Mcmillan RN Unavailable [phone] Ebony Shoemaker Unavailable [phone] Pcp, No Primary Care Provider Unavailabl e Rodney Gonzáles MD Unavailable [phone] Encounter Details Date Type Department Care Team (Late st Contact Info) Description 12/06/2024 Orders Only External Location [address] [place] [address] Provider, External Social History Tobacco Use Types [...] filedocumented in this encounter Care Teams Assistant Secretary Relationship Specialty Start Date End Date Pcp, No [address] [place] [address] PCP - General Family Medicine 03/20/25 Isabella Saucedo APRN 1210 [facility] [address] [place] [address] Referring Physician 02/26/25 Jeannie Mcmillan, RN [facility] [address] [place] [address] Registered Nurse Transplant Surgery 03/08/25 Ebony Shoemaker [place] [phone] Registered Nurse Transplant Surgery 03/08/25 Rodney Gonzáles MD 1210 [facility] [address] [place] [address] Medical Oncologist 04/10/25 documented as of this encounter
--- OUTSIDE RECORDS SUMMARY | 2025-05-01 09:30 | XMS_ITS | Encounter Summary ---
Author Organization Healthcare Address [address] [place] [address] Care Team Providers Care Mattress Weaver Name Role Phone Isabella Saucedo APRN Unavailable [phone] Jeannie Mcmillan RN Unavailable [phone] Ebony Shoemaker Unavailable [phone] Pcp, No Primary Care Provider Unavailabl e Rodney Gonzáles MD Unavailable [phone] Reason for Referral * Consultation (Routine) - Authorized Specialty Diagnoses / Procedures Referred By Contarjun t Referred To Contact Hematology and Oncology Diagnoses Elevated alpha fetoprotein Liver tumor Isabella Saucedo APRN [address] [place] [address] [place] [address] Phone: tel: fax: Referral ID Status Reason Start Date Expiration Date Visits Requested Visits Authorized [id number] Authorized Specialty Services Required 02/20/2025 08/22/2026 1 1 Encounter Details Date Type Department Care Team (Late st Contact Info) Description 02/19/2025 Community [facility] Community Practice [address] [place] [address] Isabella Saucedo APRN [address] [place] [address] [place] [address] Elevated alpha fetoprotein (Primary Dx); Liver tumor [...] system documented in this encounter Care Teams Mattress Weaver Relationship Specialty Start Date End Date Pcp, No [address] [place] [address] PCP - General Family Medicine 03/20/25 Isabella Saucedo APRN 1210 [facility] [address] [place] [address] Referring Physician 02/26/25 Jeannie Mcmillan, RN [facility] [address] [place] [address] Registered Nurse Transplant Surgery 03/08/25 Ebony Shoemaker [place] [phone] Registered Nurse Transplant Surgery 03/08/25 Rodney Gonzáles MD 1210 [facility] [address] [place] [address] Medical Oncologist 04/10/25 documented as of this encounter
--- OUTSIDE RECORDS SUMMARY | 2025-05-01 09:30 | XMS_ITS | Encounter Summary ---
Author Organization Healthcare Address [address] [place] [address] Care Team Providers Care Inventory Technician Name Role Phone Isabella Saucedo Phong WARP SPLITTER Unavailable [phone] Jeannie Mcmillan RN Unavailable [phone] Ebony Shoemaker Unavailable [phone] Pcp, No Primary Care Provider Unavailabl e Rodney Gonzáles MD Unavailable Encounter Details Date Type Department Care Team (Late st Contact Info) Description 01/12/2025 Orders Only External Location [address] [place] [address] Provider, External Social History Tobacco Use Types [...] on filedocumented in this encounter Care Teams Inventory Technician Relationship Specialty Start Date End Date Pcp, No [address] [place] [address] PCP - General Family Medicine 03/20/25 Isabella Saucedo APRN 1210 [facility] [address] [place] [address] Referring Physician 02/26/25 Jeannie Mcmillan, RN [facility] [address] [place] [address] Registered Nurse Transplant Surgery 03/08/25 Ebony Shoemaker [place] [phone] Registered Nurse Transplant Surgery 03/08/25 Rodney Gonzáles MD 1210 [facility] [address] [place] [address] Medical Oncologist 04/10/25 documented as of this encounter
--- OUTSIDE RECORDS SUMMARY | 2025-05-01 09:30 | XMS_ITS | Encounter Summary ---
Author Organization Healthcare Address [address] [place] [address] Care Team Providers Care Manager Product Management Name Role Phone Isabella Saucedo DISPLAY MECHANIC Unavailable [phone] Jeannie Mcmillan RN Unavailable [phone] Ebony Shoemaker Unavailable [phone] Pcp, No Primary Care Provider Unavailabl e Rodney Gonzáles MD Unavailable [phone] Encounter Details Date Type Department Care Team (Late st Contact Info) Description 12/06/2024 Orders Only External Location 800 [place] [address] Provider, External Social History Tobacco Use Types [...] filedocumented in this encounter Care Teams Manager Product Management Relationship Specialty Start Date End Date Pcp, No 800 [place] [address] PCP - General Family Medicine 03/20/25 Isabella Saucedo APRN 1210 [facility] [address] [place] [address] Referring Physician 02/26/25 Jeannie Mcmillan, RN [facility] [address] [place] [address] Registered Nurse Transplant Surgery 03/08/25 Ebony Shoemaker [place] [phone] Registered Nurse Transplant Surgery 03/08/25 Rodney Gonzáles MD 1210 [facility] [address] [place] [address] Medical Oncologist 04/10/25 documented as of this encounter
--- OUTSIDE RECORDS SUMMARY | 2025-05-01 09:30 | XMS_ITS | Encounter Summary ---
Author Organization Healthcare Address [address] [place] [address] Care Team Providers Care Rn Teacher Name Role Phone Isabella Saucedo TRUCK DESPATCHER Unavailable [phone] Jeannie Mcmillan RN Unavailable [phone] Ebony Shoemaker Unavailable [phone] Pcp, No Primary Care Provider Unavailabl e Rodney Gonzáles MD Unavailable [phone] Encounter Details Date Type Department Care Team (Late st Contact Info) Description 12/06/2024 Orders Only External Location 800 [place] [address] Provider, External Social History Tobacco Use Types [...] on filedocumented in this encounter Care Teams Rn Teacher Relationship Specialty Start Date End Date Pcp, No 800 [place] [address] PCP - General Family Medicine 03/20/25 Isabella Saucedo APRN 1210 [facility] [address] [place] [place] [address] Referring Physician 02/26/25 Jeannie Mcmillan, RN [facility] [address] [place] [address] Registered Nurse Transplant Surgery 03/08/25 Ebony Shoemaker [place] [phone] Registered Nurse Transplant Surgery 03/08/25 Rodney Gonzáles MD 1210 [facility] [address] [place] [place] [address] Medical Oncologist 04/10/25 documented as of this encounter
--- OUTSIDE RECORDS SUMMARY | 2025-05-01 09:30 | XMS_ITS | Encounter Summary ---
Author Organization [facility] Address [address] [place] [address] Care Team Providers Care Curriculum Advisory Teacher Name Role Phone Isabella Saucedo Phong SURVEY INSTRUMENT OPERATOR Unavailable [phone] Jeannie Mcmillan RN Unavailable [phone] Ebony Shoemaker Unavailable [phone] Reason for Referral * Consultation (Routine) - Authorized Specialty Diagnoses / Procedures Referred By Contac t Referred To Contact Medical Oncology Diagnoses Elevated AFP Liver lesion Peter Do MD [address] [address] Phone: tel: fax: Referral ID Status Reason Start Date Expiration Date Visits Requested Visits Authorized [id number] Authorized Consult and Treat 03/16/2025 09/15/2026 1 1 Reason for Visit * Reason Comments Txp Surgical Follow-up Ernestina: Tumor Boar d Discussion 03/16/25 Encounter Details Date Type Department Care Team (Late st Contact Info) Description 03/16/2025 Telephone [facility] [address] [address] [place] [address] Txp Surgical Follow-up (Ernestina: Tumor [...] documented as of this encounter Care Teams Curriculum Advisory Teacher Relationship Specialty Start Date End Date Isabella Saucedo APRN [address] [place] [address] Referring Physician 02/26/25 Jeannie Mcmillan, RN [facility] [address] [place], [place] [address] Registered Nurse Transplant Surgery 03/08/25 Ebony Shoemaker [place] [phone] Registered Nurse Transplant Surgery 03/08/25 documented as of this encounter
--- OUTSIDE RECORDS SUMMARY | 2025-05-01 09:30 | XMS_ITS | Encounter Summary ---
Author Organization Healthcare Address [address] [place] [address] Care Team Providers Care Process Worker Name Role Phone Isabella Saucedo SAP MOBILITY ARCHITECT Unavailable [phone] Jeannie Mcmillan RN Unavailable [phone] Ebony Shoemaker Unavailable [phone] Pcp, No Primary Care Provider Unavailabl e Rodney Gonzáles MD Unavailable [phone] Encounter Details Date Type Department Care Team (Late st Contact Info) Description 12/07/2024 Orders Only External Location 800 [place] [address] Provider, External Social History Tobacco Use Types [...] on filedocumented in this encounter Care Teams Process Worker Relationship Specialty Start Date End Date Pcp, No 800 [place] [address] PCP - General Family Medicine 03/20/25 Isabella Saucedo APRN 1210 [facility] [address] [place] [place] [address] Referring Physician 02/26/25 Jeannie Mcmillan, RN [facility] [address] [place] [address] Registered Nurse Transplant Surgery 03/08/25 [place] [address] Registered Nurse Transplant Surgery 03/08/25 Rodney Gonzáles MD 1210 [facility] [address] [place] [place] [address] Medical Oncologist 04/10/25 documented as of this encounter
--- OUTSIDE RECORDS SUMMARY | 2025-05-01 09:30 | XMS_ITS | Encounter Summary ---
Author Organization [facility] Address [address] [place] [address] Care Team Providers Care Lumber Carrier Operator Name Role Phone Isbaella Saucedo COAL OR ORE CONTROLLER Unavailable [phone] Jeannie Mcmillan RN Unavailable [phone] Ebony Shoemaker Unavailable [phone] Encounter Details Date Type Department Care [...] on filedocumented in this encounter Care Teams Lumber Carrier Operator Relationship Specialty Start Date End Date Isabella Saucedo APRN [address] [place] [address] Referring Physician 02/26/25 Jeannie Mcmillan, RN [facility]MINISTRATION 800 [place] [address] Registered Nurse Transplant Surgery 03/08/25 [place] [address] Registered Nurse Transplant Surgery 03/08/25 documented as of this encounter
--- OUTSIDE RECORDS SUMMARY | 2025-05-01 09:30 | XMS_ITS | Encounter Summary ---
Author Organization Healthcare Address [address] [place] [address] Care Team Providers Care Overhead Crane Inspector Name Role Phone Isabella Saucedo SENIOR PRODUCT DESIGNER Unavailable [phone] Jeannie Mcmillan RN Unavailable [phone] Ebony Shoemaker Unavailable [phone] Pcp, No Primary Care Provider Unavailabl e Rodney Gonzáles MD Unavailable [phone] Encounter Details Date Type Department Care Team (Late st Contact Info) Description 12/06/2024 Orders Only External Location 800 [place] [address] Provider, External Social History Tobacco Use Types [...] on filedocumented in this encounter Care Teams Overhead Crane Inspector Relationship Specialty Start Date End Date Pcp, No 800 [place] [address] PCP - General Family Medicine 03/20/25 Isabella Saucedo APRN 1210 [facility] [address] [place] [place] [address] Referring Physician 02/26/25 Jeannie Mcmillan, RN [facility] [address] [place] [address] Registered Nurse Transplant Surgery 03/08/25 Ebony Shoemaker [place] [phone] Registered Nurse Transplant Surgery 03/08/25 Rodney Gonzáles MD 1210 [facility] [address] [place] [address] Medical Oncologist 04/10/25 documented as of this encounter
--- OUTSIDE RECORDS SUMMARY | 2025-05-01 09:30 | XMS_ITS | Encounter Summary ---
Author Organization Healthcare Address [address] [place] [address] Care Team Providers Care Doctor Of Dental Medicine Name Role Phone Isabella Saucedo SALESPERSON FURS Unavailable [phone] Jeannie Mcmillan RN Unavailable [phone] Ebony Shoemaker Unavailable [phone] Pcp, No Primary Care Provider Unavailabl e Rodney Gonzáles MD Unavailable Encounter Details Date Type Department Care Team (Late st Contact Info) Description 01/04/2025 Orders Only External Location 800 [place] [address] Provider, External Social History Tobacco Use Types [...] on filedocumented in this encounter Care Teams Doctor Of Dental Medicine Relationship Specialty Start Date End Date Pcp, No 800 [place] [address] PCP - General Family Medicine 03/20/25 Isabella Saucedo APRN 1210 [facility] [address] [place] [place] [address] Referring Physician 02/26/25 Jeannie Mcmillan, RN [facility] [address] [place], [place] [phone] Registered Nurse Transplant Surgery 03/08/25 Ebony Shoemaker [place] [phone] Registered Nurse Transplant Surgery 03/08/25 Rodney Gonzáles MD 1210 [facility] [address] [place], [place] [address] Medical Oncologist 04/10/25 documented as of this encounter
--- OUTSIDE RECORDS SUMMARY | 2025-05-01 09:30 | XMS_ITS | Encounter Summary ---
Author Organization Healthcare Address [address] [place] [address] Care Team Providers Care Instrument Engineer Name Role Phone Isabella Saucedo BREAK OFF WORKER Unavailable [phone] Jeannie Mcmillan RN Unavailable [phone] Ebony Shoemaker Unavailable [phone] Pcp, No Primary Care Provider Unavailabl e Rodney Gonzáles MD Unavailable [phone] Encounter Details Date Type Department Care Team (Late st Contact Info) Description 12/06/2024 Orders Only External Location 800 [place] [address] Provider, External Social History Tobacco Use Types [...] on filedocumented in this encounter Care Teams Instrument Engineer Relationship Specialty Start Date End Date Pcp, No 800 [place] [address] PCP - General Family Medicine 03/20/25 Isabella Saucedo APRN 1210 [facility] [address] [place] [place] [address] Referring Physician 02/26/25 Jeannie Mcmillan, RN [facility] ADMINISTRATION [address] [place] [address] Registered Nurse Transplant Surgery 03/08/25 Ebony Shoemaker [place] [phone] Registered Nurse Transplant Surgery 03/08/25 Rodney Gonzáles MD 1210 [facility] [address] [place] [place] [address] Medical Oncologist 04/10/25 documented as of this encounter
--- OUTSIDE RECORDS SUMMARY | 2025-05-01 09:30 | XMS_ITS | Encounter Summary ---
Author Organization Healthcare Address [address] [place] [address] Care Team Providers Care Hydropulper Operator Name Role Phone Isabella Saucedo BRUSHING MACHINE OPERATOR Unavailable [phone] Jeannie Mcmillan RN Unavailable [phone] Ebony Shoemaker Unavailable [phone] Pcp, No Primary Care Provider Unavailabl e Rodney Gonzáles MD Unavailable [phone] Encounter Details Date Type Department Care Team (Late st Contact Info) Description 06/03/2022 Orders Only External Location 800 [place] [address] Provider, External Social History Tobacco Use Types [...] on filedocumented in this encounter Care Teams Hydropulper Operator Relationship Specialty Start Date End Date Pcp, No 800 [place] [address] PCP - General Family Medicine 03/20/25 Isabella Saucedo APRN 1210 [facility] [address] [place] [address] Referring Physician 02/26/25 Jeannie Mcmillan, RN [facility]MINISTRATION [address] [place], [place] [id number] Registered Nurse Transplant Surgery 03/08/25 Ebony Shoemaker [place] [phone] Registered Nurse Transplant Surgery 03/08/25 Rodney Gonzáles MD 1210 [facility] [address] [place], [place] [address] Medical Oncologist 04/10/25 documented as of this encounter
--- OUTSIDE RECORDS SUMMARY | 2025-05-01 09:30 | XMS_ITS | Encounter Summary ---
Author Organization Healthcare Address [address] [place] [address] Care Team Providers Care Test Rack Operator Name Role Phone Isabella Saucedo PSYCHOLOGIST EXPERIMENTAL Unavailable [phone] Jeannie Mcmillan RN Unavailable [phone] Ebony Shoemaker Unavailable [phone] Pcp, No Primary Care Provider Unavailabl e Rodney Gonzáles MD Unavailable [phone] Encounter Details Date Type Department Care Team (Late st Contact Info) Description 01/06/2024 Orders Only External Location 800 [place] [address] Provider, External Social History Tobacco Use Types [...] on filedocumented in this encounter Care Teams Test Rack Operator Relationship Specialty Start Date End Date Pcp, No 800 [place] [address] PCP - General Family Medicine 03/20/25 Isabella Saucedo APRN 1210 [facility] [address] [place] [address] Referring Physician 02/26/25 Jeannie Mcmillan, RN [facility]MINISTRATION [address] [place] [address] Registered Nurse Transplant Surgery 03/08/25 Ebony Shoemaker [place] [phone] Registered Nurse Transplant Surgery 03/08/25 Rodney Gonzáles MD 1210 [facility] [address] [place] [place] [address] Medical Oncologist 04/10/25 documented as of this encounter
--- OUTSIDE RECORDS SUMMARY | 2025-05-01 09:30 | XMS_ITS | Encounter Summary ---
Author Organization Healthcare Address [address] [place] [address] Care Team Providers Care Group Fitness Assistant Department Head Name Role Phone Isabella Saucedo SPECIAL EVENTS PLANNER Unavailable [phone] Jeannie Mcmillan RN Unavailable [phone] Ebony Shoemaker Unavailable [phone] Pcp, No Primary Care Provider Unavailabl e Rodney Gonzáles MD Unavailable [phone] Encounter Details Date Type Department Care Team (Late st Contact Info) Description 11/15/2024 Orders Only External Location 800 [place] [address] Provider, External Social History Tobacco Use Types [...] on filedocumented in this encounter Care Teams Group Fitness Assistant Department Head Relationship Specialty Start Date End Date Pcp, No 800 [place] [address] PCP - General Family Medicine 03/20/25 Isabella Saucedo APRN 1210 [facility] [address] [place] [address] Referring Physician 02/26/25 Jeannie Mcmillan, RN [facility]MINISTRATION [address] [place] [address] Registered Nurse Transplant Surgery 03/08/25 Ebony Shoemaker [place] [phone] Registered Nurse Transplant Surgery 03/08/25 Rodney Gonzáles MD 1210 [facility] [address] [place] [address] Medical Oncologist 04/10/25 documented as of this encounter
--- OUTSIDE RECORDS SUMMARY | 2025-05-01 09:30 | XMS_ITS | Encounter Summary ---
Author Organization Healthcare Address [address] [place] [address] Care Team Providers Care Boilers And Pressure Vessels Inspector Name Role Phone Isabella Saucedo ADULT SECONDARY EDUCATION INSTRUCTOR Unavailable [phone] Encounter Details Date Type Department Care Team [...] on filedocumented in this encounter Care Teams Boilers And Pressure Vessels Inspector Relationship Specialty Start Date End Date Isabella Saucedo APRN [address] [place] [address] Referring Physician 02/26/25 documented as of this encounter
--- OUTSIDE RECORDS SUMMARY | 2025-05-01 09:30 | XMS_ITS | Encounter Summary ---
Author Organization Healthcare Address [address] [place] [address] Care Team Providers Care Washtub Worker Name Role Phone Isabella Saucedo JOURNALISM PROFESSOR Unavailable [phone] Jeannie Mcmillan RN Unavailable [phone] Ebony Shoemaker Unavailable [phone] Pcp, No Primary Care Provider Unavailabl e Rodney Gonzáles MD Unavailable [phone] Encounter Details Date Type Department Care Team (Late st Contact Info) Description 12/06/2024 Orders Only External Location 800 [place] [address] Provider, External Social History Tobacco Use Types [...] on filedocumented in this encounter Care Teams Washtub Worker Relationship Specialty Start Date End Date Pcp, No 800 [place] [address] PCP - General Family Medicine 03/20/25 Isabella Saucedo APRN 1210 [facility] [address] [place] [place] [address] Referring Physician 02/26/25 Jeannie Mcmillan, RN CH-TRANSPLANT ADMINISTRATION [address] [place] [address] Registered Nurse Transplant Surgery 03/08/25 Ebony Shoemaker [place] [phone] Registered Nurse Transplant Surgery 03/08/25 Rodney Gonzáles MD 1210 [facility] [address] [place] [place] [address] Medical Oncologist 04/10/25 documented as of this encounter
--- OUTSIDE RECORDS SUMMARY | 2025-05-01 09:30 | XMS_ITS | Encounter Summary ---
Author Organization Healthcare Address [address] [place] [address] Care Team Providers Care Manager Training And Development Name Role Phone Isabella Saucedo BEARINGIZER Unavailable [phone] Jeannie Mcmillan RN Unavailable [phone] Ebony Shoemaker Unavailable [phone] Pcp, No Primary Care Provider Unavailabl e Rodney Gonzáles MD Unavailable [phone] Encounter Details Date Type Department Care Team (Late st Contact Info) Description 12/06/2024 Orders Only External Location 800 [place] [address] Provider, External Social History Tobacco Use Types [...] filedocumented in this encounter Care Teams Manager Training And Development Relationship Specialty Start Date End Date Pcp, No 800 [place] [address] PCP - General Family Medicine 03/20/25 Isabella Saucedo APRN 1210 [facility] [address] [place] [place] [address] Referring Physician 02/26/25 Jeannie Mcmillan, RN CH-TRANSPLANT ADMINISTRATION [address] [place] [address] Registered Nurse Transplant Surgery 03/08/25 Ebony Shoemaker [place] [phone] Registered Nurse Transplant Surgery 03/08/25 Rodney Gonzáles MD 1210 [facility] [address] [place] [place] [address] Medical Oncologist 04/10/25 documented as of this encounter
--- OUTSIDE RECORDS SUMMARY | 2025-05-01 09:30 | XMS_ITS | Encounter Summary ---
Author Organization [facility] Address [address] [place] [address] Care Team Providers Care Corn Cutter Name Role Phone Isabella Saucedo MOBILE LAB TECHNICIAN Unavailable [phone] Jeannie Mcmillan RN Unavailable [phone] Ebony Shoemaker Unavailable [phone] Reason for Referral * Imaging (Routine) - Closed Specialty Diagnoses / Procedures Referred By Contac t Referred To Contact Radiology Diagnoses Elevated AFP Liver lesion Hepatic cirrhosis, unspecified hepatic cirrhosis type, unspecified whether ascites present (CMS/HCC) Procedures CT CHEST WO IV CONTRAST Peter Do MD [address] [facility] [address] [place] [address] Phone: tel: fax: Referral ID Status Reason Start Date Expiration Date Visits Re quested Visits Authorized [id number] Closed 03/14/2025 09/13/2026 1 1 Encounter Details Date Type Department Care Team (Late st Contact Info) Description 03/14/2025 Orders Only [facility] [address] [facility] [address] [place] [address] [place] [address] Liver lesion (Primary Dx); Elevated [...] documented as of this encounter Care Teams Corn Cutter Relationship Specialty Start Date End Date Isabella Saucedo APRN [address] [place] [address] Referring Physician 02/26/25 Jeannie Mcmillan, RN CH-TRANSPLANT ADMINISTRATION [address] [place] [address] Registered Nurse Transplant Surgery 03/08/25 Ebony Shoemaker [place] [phone] Registered Nurse Transplant Surgery 03/08/25 documented as of this encounter
--- OUTSIDE RECORDS SUMMARY | 2025-05-01 09:30 | XMS_ITS | Encounter Summary ---
Author Organization Healthcare Address [address] [place] [address] Care Team Providers Care Gravel Hauler Name Role Phone Isabella Saucedo FORM LAYER Unavailable [phone] Jeannie Mcmillan RN Unavailable [phone] Ebony Shoemaker Unavailable [phone] Pcp, No Primary Care Provider Unavailabl e Rodney Gonzáles MD Unavailable [phone] Encounter Details Date Type Department Care Team (Late st Contact Info) Description 01/12/2025 Orders Only External Location 800 [place] [address] Provider, External Social History Tobacco Use Types [...] on filedocumented in this encounter Care Teams Gravel Hauler Relationship Specialty Start Date End Date Pcp, No 800 [place] [address] PCP - General Family Medicine 03/20/25 Isabella Saucedo APRN 1210 [facility] [address] [place] [address] Referring Physician 02/26/25 Jeannie Mcmillan, RN CH-TRANSPLANT ADMINISTRATION [address] [place], [place] [address] Registered Nurse Transplant Surgery 03/08/25 Ebony Shoemaker [place] [phone] Registered Nurse Transplant Surgery 03/08/25 Rodney Gonzáles MD 1210 [facility] [address] [place] [place] [address] Medical Oncologist 04/10/25 documented as of this encounter
--- OUTSIDE RECORDS SUMMARY | 2025-05-01 09:30 | XMS_ITS | Encounter Summary ---
Author Organization Healthcare Address [address] [place] [address] Care Team Providers Care Business Process Manager Name Role Phone Isabella Saucedo POLICE RADIO DISPATCHER Unavailable [phone] Jeannie Mcmillan RN Unavailable [phone] Ebony Shoemaker Unavailable [phone] Pcp, No Primary Care Provider Unavailabl e Rodney Gonzáles MD Unavailable [phone] Encounter Details Date Type Department Care Team (Late st Contact Info) Description 12/06/2024 Orders Only External Location 800 [place] [address] Provider, External Social History Tobacco Use Types [...] on filedocumented in this encounter Care Teams Business Process Manager Relationship Specialty Start Date End Date Pcp, No 800 [place] [address] PCP - General Family Medicine 03/20/25 Isabella Saucedo APRN 1210 [facility] [address] [place] [address] Referring Physician 02/26/25 Jeannie Mcmillan, RN CH-TRANSPLANT ADMINISTRATION [address] [place] [address] Registered Nurse Transplant Surgery 03/08/25 Ebony Shoemaker [place] [phone] Registered Nurse Transplant Surgery 03/08/25 Rodney Gonzáles MD 1210 [facility] [address] [place] [place] [address] Medical Oncologist 04/10/25 documented as of this encounter
--- OUTSIDE RECORDS SUMMARY | 2025-05-01 09:30 | XMS_ITS ---
Author Organization [facility] Address [address] [place] [address] Care Team Providers Care Parts Product Analyst Name Role Phone Isabella Saucedo GARNETT MACHINE OPERATOR Unavailable [phone] Jeannie Mcmillan RN Unavailable [phone] Ebony Shoemaker Unavailable [phone] Pcp, No Primary Care Provider Unavailabl e Rodney Gonzáles MD Unavailable [phone] Transplant Episode Liver Candidate [facility] ([place], [place]) [facility] Referred on 02/26/2025 Marked as Ineligible on 03/06/2025 Reason: Transfered to Another Program Liver CoordinatorAngelita Reeves Fax: N/A Email: N/A Scores Score Value Updated Expires Exceptions/[place] sons CPRA Not available MELD (Calc) 7 03/21/2025 Care Team Name Role Phone Fax Email Angelita Reeves Liver Coordinator [phone] N/A N/A Gloria Chau LCSW Ct Scan Special Procedures Technologist [phone] N/A N/A Isabella Saucedo APRN Referring Physician [phone] N/A Haroon Cannon MD Surgeon [phone] N/A Events Pre-Transplant Referred: 02/26/2025
--- OUTSIDE RECORDS SUMMARY | 2025-05-01 09:30 | XMS_ITS | Encounter Summary ---
Author Organization Healthcare Address [address] [place] [address] Care Team Providers Care Special Education Administrator Name Role Phone Isabella Saucedo SHIPYARD LABORER Unavailable [phone] Jeannie Mcmillan RN Unavailable [phone] Ebony Shoemaker Unavailable [phone] Pcp, No Primary Care Provider Unavailabl e Rodney Gonzáles MD Unavailable [phone] Encounter Details Date Type Department Care Team (Late st Contact Info) Description 11/22/2024 Orders Only External Location 800 [place] [address] Provider, External Social History Tobacco Use Types [...] on filedocumented in this encounter Care Teams Special Education Administrator Relationship Specialty Start Date End Date Pcp, No 800 [place] [address] PCP - General Family Medicine 03/20/25 Isabella Saucedo APRN 1210 [facility] [address] [place] [address] Referring Physician 02/26/25 Jeannie Mcmillan, RN [facility] [address] [place] [address] Registered Nurse Transplant Surgery 03/08/25 [place] [address] Registered Nurse Transplant Surgery 03/08/25 Rodney Gonzáles MD 1210 [facility] [address] [place] [address] Medical Oncologist 04/10/25 documented as of this encounter
--- OUTSIDE RECORDS SUMMARY | 2025-05-01 09:30 | XMS_ITS | Encounter Summary ---
Author Organization Healthcare Address [address] [place] [address] Care Team Providers Care Transportation Consultant Name Role Phone Isabella Saucedo SLIP COVER SEWER Unavailable [phone] Jeannie Mcmillan RN Unavailable [phone] Ebony Shoemaker Unavailable [phone] Pcp, No Primary Care Provider Unavailabl e Rodney Gonzáles MD Unavailable [phone] Encounter Details Date Type Department Care Team (Late st Contact Info) Description 01/14/2024 Orders Only External Location 800 [place] [address] Provider, External Social History Tobacco Use Types [...] on filedocumented in this encounter Care Teams Transportation Consultant Relationship Specialty Start Date End Date Pcp, No 800 [place] [address] PCP - General Family Medicine 03/20/25 Isabella Saucedo APRN 1210 [facility] [address] [place] [address] Referring Physician 02/26/25 Jeannie Mcmillan, RN [facility] ADMINISTRATION [address] [place] [address] Registered Nurse Transplant Surgery 03/08/25 Ebony Shoemaker [place] [id number] Registered Nurse Transplant Surgery 03/08/25 Rodney Gonzáles MD 1210 [facility] [address] [place] [address] Medical Oncologist 04/10/25 documented as of this encounter
--- OUTSIDE RECORDS SUMMARY | 2025-05-01 09:30 | XMS_ITS | Encounter Summary ---
Author Organization Healthcare Address [address] [place] [address] Care Team Providers Care Cyber Intel Planner Name Role Phone Isabella Saucedo COMMERCIAL MAINTENANCE TECHNICIAN Unavailable [phone] Jeannie Mcmillan RN Unavailable [phone] Ebony Shoemaker Unavailable [phone] Pcp, No Primary Care Provider Unavailabl e Rodney Gonzáles MD Unavailable [phone] Encounter Details Date Type Department Care Team (Late st Contact Info) Description 05/26/2022 Orders Only External Location 800 [place] [address] Provider, External Social History Tobacco Use Types [...] on filedocumented in this encounter Care Teams Cyber Intel Planner Relationship Specialty Start Date End Date Pcp, No 800 [place] [address] PCP - General Family Medicine 03/20/25 Isabella Saucedo APRN 1210 [facility] [address] [place] [address] Referring Physician 02/26/25 Jeannie Mcmillan, RN [facility]MINISTRATION [address] [place] [address] Registered Nurse Transplant Surgery 03/08/25 Ebony Shoemaker [place] [id number] Registered Nurse Transplant Surgery 03/08/25 Rodney Gonzáles MD 1210 [facility] [address] [place] [address] Medical Oncologist 04/10/25 documented as of this encounter
--- OUTSIDE RECORDS SUMMARY | 2025-05-01 09:30 | XMS_ITS | Encounter Summary ---
Author Organization Healthcare Address [address] [place] [address] Care Team Providers Care Solar Project Engineer Name Role Phone Isabella Saucedo HARBOR PATROL POLICE Unavailable [phone] Jeannie Mcmillan RN Unavailable [phone] Ebony Shoemaker Unavailable [phone] Encounter Details Date Type Department Care [...] documented as of this encounter Care Teams Solar Project Engineer Relationship Specialty Start Date End Date Lewis Isabella Darling APRN [address] [place] [address] [place] [address] Referring Physician 02/26/25 Jeannie Mcmillan, RN [facility]MINISTRATION [address] [place] [address] Registered Nurse Transplant Surgery 03/08/25 [place] [address] Registered Nurse Transplant Surgery 03/08/25 documented as of this encounter
--- OUTSIDE RECORDS SUMMARY | 2025-05-01 09:30 | XMS_ITS | Encounter Summary ---
Author Organization Healthcare Address [address] [place] [address] Care Team Providers Care Hand Tool Filer Name Role Phone Isabella Saucedo EARTHMOVING PLANT OPERATOR Unavailable [phone] Jeannie Mcmillan RN Unavailable [phone] Ebony Shoemaker Unavailable [phone] Pcp, No Primary Care Provider Unavailabl e Rodney Gonzáles MD Unavailable [phone] Encounter Details Date Type Department Care Team (Late st Contact Info) Description 05/26/2022 Orders Only External Location 800 [place] [address] Provider, External Social History Tobacco Use Types [...] on filedocumented in this encounter Care Teams Hand Tool Filer Relationship Specialty Start Date End Date Pcp, No 800 [place] [address] PCP - General Family Medicine 03/20/25 Isabella Saucedo APRN 1210 [facility] [address] [place] [address] Referring Physician 02/26/25 Jeannie Mcmillan, RN [facility]PLANT ADMINISTRATION [address] [place] [address] Registered Nurse Transplant Surgery 03/08/25 Ebony Shoemaker [place] [phone] Registered Nurse Transplant Surgery 03/08/25 Rodney Gonzáles MD 1210 [facility] [address] [place] [address] Medical Oncologist 04/10/25 documented as of this encounter
--- OUTSIDE RECORDS SUMMARY | 2025-05-01 09:30 | XMS_ITS | Encounter Summary ---
Author Organization Healthcare Address [address] [place] [address] Care Team Providers Care Assistant Program Manager Name Role Phone Isabella Saucedo UPHOLSTERY ESTIMATOR Unavailable [phone] Jeannie Mcmillan RN Unavailable [phone] Ebony Shoemaker Unavailable [phone] Pcp, No Primary Care Provider Unavailabl e oRdney Gonzáles MD Unavailable [phone] Encounter Details Date Type Department Care Team (Late st Contact Info) Description 12/07/2024 Orders Only External Location 800 [place] [address] Provider, External Social History Tobacco Use Types [...] filedocumented in this encounter Care Teams Assistant Program Manager Relationship Specialty Start Date End Date Pcp, No 800 [place] [address] PCP - General Family Medicine 03/20/25 Isabella Saucedo APRN 1210 [facility] [address] [place] [address] Referring Physician 02/26/25 Jeannie Mcmillan, RN CH[facility]TRANSPLANT ADMINISTRATION [address] [place], [place] [phone] Registered Nurse Transplant Surgery 03/08/25 Ebony Shoemaker [place] [phone] Registered Nurse Transplant Surgery 03/08/25 Rodney Gonzáles MD 1210 [facility] [address] [place] [address] Medical Oncologist 04/10/25 documented as of this encounter
--- OUTSIDE RECORDS SUMMARY | 2025-05-01 09:30 | XMS_ITS | Encounter Summary ---
Author Organization Healthcare Address [address] [place] [address] Care Team Providers Care Dough Panner Name Role Phone Isabella Saucedo STOCKBROKING DEALER Unavailable [phone] Jeannie Mcmillan RN Unavailable [phone] Ebony Shoemaker Unavailable [phone] Pcp, No Primary Care Provider Unavailabl e Rodney Gonzáles MD Unavailable [phone] Encounter Details Date Type Department Care Team (Late st Contact Info) Description 12/06/2024 Orders Only External Location 800 [place] [address] Provider, External Social History Tobacco Use Types [...] on filedocumented in this encounter Care Teams Dough Panner Relationship Specialty Start Date End Date Pcp, No 800 [place] [address] PCP - General Family Medicine 03/20/25 Isabella Saucedo APRN 12[address] [facility] [address] [place] [address] Referring Physician 02/26/25 Jeannie Mcmillan, RN CH-TRANSPLANT ADMINISTRATION [address] [place] [address] Registered Nurse Transplant Surgery 03/08/25 Ebony Shoemaker [place] [phone] Registered Nurse Transplant Surgery 03/08/25 Rodney Gonzáles MD 1210 [facility] [address] [place] [address] Medical Oncologist 04/10/25 documented as of this encounter
--- OUTSIDE RECORDS SUMMARY | 2025-05-01 09:30 | XMS_ITS | Encounter Summary ---
Author Organization [facility] Address [address] [place] [address] Care Team Providers Care Landfill Gas Plant Field Technician Name Role Phone Isabella Saucedo AUTOMOTIVE PORTER Unavailable [phone] Reason for Visit * Reason Comments Appointment Encounter Details Date Type Department Care Team (Late st Contact Info) Description 03/05/2025 Telephone [facility] [address] [place] [address] Angelita Reeves [place] [phone] Appointment Social History Tobacco Use Types Packs/Day [...] to reach his , Ashley at at. [phone]. Called patient's , Ashley and offered to [...] on filedocumented in this encounter Care Teams Landfill Gas Plant Field Technician Relationship Specialty Start Date End Date Isabella Saucedo, AUTOMOTIVE PORTER [address] [place] [address] [place] [address] Referring Physician 02/26/25 documented as of this encounter
[2025-05-01] MEDS: DEFINITY US ECHO CONTRAST 2ML INJ 2 MG IV (10:07)
== END 2025-05-01 23:59 | disposition home or self-care (01) ==
LOC: RT 09:06
PROVIDERS: PCP Family Medicine; Visit Provider Internal Medicine
DX: I08.3 Combined rheumatic disorders of mitral, aortic and tricuspid valves (principal); I25.3 Aneurysm of heart; R93.1 Abnormal findings on diagnostic imaging of heart and coronary circulation; Z95.1 Presence of aortocoronary bypass graft; C22.9 Malignant neoplasm of liver, not specified as primary or secondary; Z79.60 Long term (current) use of unspecified immunomodulators and immunosuppressants
CPT/HCPCS: 93306; Q9957

== ENCOUNTER 2025-05-01 10:33 | Emergency (ER) | payer MEDICARE, MEDICAID, SELFPAY ==
--- OUTSIDE RECORDS SUMMARY | 2016-03-04 08:15 | XMS_ITS | Encounter Summary ---
Author Organization [place] [address] Care Team Providers Care Yoke Presser Name Role Phone Jan Sin MD Unavailable [phone] Carlton James DO Primary Care Provide r Macario Pryor MD Unavailable Unavailabl e Encounter Details Date Type Department Care Team (Latest Contact Info) Description 03/04/2016 8:15 AM EDT Hospital Encounter [facility] 238 [facility] [place] [address] Poppy Quintero MD [address] [place], [place] [phone] Left without seen Social History Tobacco Use [...] Author No Risk 01/18/2024 3:32 PM EDT eJr Sena RN * [place] Suicide Severity Rating Scale (Q shift for [...] documented as of this encounter Care Teams Yoke Presser Relationship Specialty Start Date End Date Carlton James DO [address] [place] [address] PCP - General Family Medicine 05/01/15 11/26/16 Macario Pryor MD [address] [place] [address] PCP - Hematology/Oncology Internal Medicine-Medical Oncology 11/12/15 Jan Sin MD [address] [place] [address] [place], [place] [id number] Internal Medicine-Cardiovascul ar Disease 08/28/14 documented as of this encounter
--- OUTSIDE RECORDS SUMMARY | 2025-03-14 10:00 | XMS_ITS | Encounter Summary ---
Author Organization Healthcare Address [address] [place] [address] Care Team Providers Care Globe Mounter Name Role Phone Isabella Saucedo INDUSTRIAL DESIGN INTERN Unavailable [phone] Jeannie Mcmillan RN Unavailable [phone] Ebony Shoemaker Unavailable [phone] Reason for Visit * Reason Comments Liver Lesion * Consultation (Routine) - Closed Specialty Diagnoses / Procedures Referred By Vicente t Referred To Contact Transplant Diagnoses Elevated AFP Liver lesion Hepatic cirrhosis, unspecified hepatic cirrhosis type, unspecified whether ascites present (CMS/HCC) Isabella Saucedo, INDUSTRIAL DESIGN INTERN [address] [place] [address] Phone: tel: fax: [facility] [address] [address] Phone: tel: fax: Referral ID Status Reason Start Date Expiration Date V isits Requested Visits Authorized [id number] Closed Specialty Services Required 03/06/2025 09/05/2026 1 1 Encounter Details Date Type Department Care Team (Late st Contact Info) Description 03/14/2025 10:00 AM EDT Office Visit [facility] [address] [address] Peter Do MD [address] [address] HCC (hepatocellular carcinoma) (Primary Dx) [...] a 64 y.o.-year-old male w/ PMHx cirrhosis, [place], CAD s/p CABG x4 with re-stenosis withrevision, [...] a 64 y.o.-year-old male w/ PMHx cirrhosis, [place], CAD s/p CABG x4 with re-stenosis withrevision, [...] documented as of this encounter Care Teams Globe Mounter Relationship Specialty Start Date End Date Isabella Saucedo APRN [address] [place] [phone] Referring Physician 02/26/25 Jeannie Mcmillan, RN CH-TRANSPLANT ADMINISTRATION [address] [place] [address] Registered Nurse Transplant Surgery 03/08/25 [place] [address] Registered Nurse Transplant Surgery 03/08/25 documented as of this encounter
--- OUTSIDE RECORDS SUMMARY | 2025-03-14 11:20 | XMS_ITS | Encounter Summary ---
Author Organization Healthcare Address [address] [place] [address] Care Team Providers Care Orthopedics Teacher Name Role Phone LewisIsabella Phong REFRACTORY PRODUCTS SUPERVISOR Unavailable [phone] Jeannie Mcmillan RN Unavailable [phone] Ebony Shoemaker Unavailable [phone] Reason for Referral * Imaging (Routine) - Closed Specialty Diagnoses / Procedures Referred By Contac t Referred To Contact Radiology Diagnoses Elevated AFP Liver lesion Hepatic cirrhosis, unspecified hepatic cirrhosis type, unspecified whether ascites present (CMS/HCC) Procedures CT CHEST WO IV CONTRAST Peter Do MD [address] [address] Phone: tel: fax: Referral ID Status Reason Start Date Expiration Date Visits Re quested Visits Authorized [id number] Closed 03/14/2025 09/13/2026 1 1 Reason for Visit * Imaging (Routine) - Closed Specialty Diagnoses / Procedures Referred By Contac t Referred To Contact Radiology Diagnoses Elevated AFP Liver lesion Hepatic cirrhosis, unspecified hepatic cirrhosis type, unspecified whether ascites present (CMS/HCC) Procedures CT CHEST WO IV CONTRAST Peter Do MD [address] [address] Phone: tel: fax: Referral ID Status Reason Start Date Expiration Date Visits Re quested Visits Authorized [id number] Closed 03/14/2025 09/13/2026 1 1 Encounter Details Date Type Department Care Team (Latest Contact Info) Description 03/14/2025 11:20 AM EDT - 03/14/2025 11:59 PM EDT Hospital Encounter [facility] [address] [place] [address] Elevated AFP; Liver lesion; Hepatic [...] Behavior (Lifetime) No 8:00 AM EDT Sandy Moseley, NIURKA documented as of this encounter Medications [...] documented as of this encounter Care Teams Orthopedics Teacher Relationship Specialty Start Date End Date Isabella Saucedo APRN [address] [place] [address] Referring Physician 02/26/25 Jeannie Mcmillan, RN [facility] [address] [place] [address] Registered Nurse Transplant Surgery 03/08/25 [place] [address] Registered Nurse Transplant Surgery 03/08/25 documented as of this encounter
--- OUTSIDE RECORDS SUMMARY | 2025-03-20 16:39 | XMS_ITS | Encounter Summary ---
Author Organization Healthcare Address [address] [place] [address] Care Team Providers Care Chief Controller Name Role Phone Isabella Saucedo CORPORATE CONTROLLER Unavailable [phone] Jeannie Mcmillan RN Unavailable [phone] Ebony Shoemaker Unavailable [phone] Pcp, No Primary Care Provider Unavailabl e Reason for Visit * Reason Comments Abdominal Pain * Auth/Cert (Routine) Specialty Diagnoses / Procedures Referred By Vicente alaniz Referred To Contact Diagnoses Hepatocellular carcinoma hepatocellular carcinoma Navi Tripathi MD [address] [place] [address] Phone: tel: fax: [facility] Inpatient [address] [place] [address] Phone: tel: Referral ID Status Reason Start Date Expiration Date Visits Re quested Visits Authorized [id number] 1 1 Encounter Details Date Type Department Care Team (Latest Contact Info) Description 03/20/2025 4:39 PM EDT - 03/21/2025 6:51 PM EDT Hospital Encounter [facility] [address] [place] [address] Clotilde Saleh MD [address] [place] [address] Navi Tripathi MD [address] [place] [address] Lolly Flaherty MD [address] [place] [phone] Epigastric pain (Primary Dx); Hepatocellular carcinoma; Alcoholic [...] PCP name and Address: Pcp, Tiki [address] [facility] / [place] [id number] Referring provider name and address: Monalisa Elizondo, CORPORATE CONTROLLER [address] [place] [address] Chief Concern, Brief History of Present Illness, [...] Ellipta 100-62.5-25 MCG/ACT aerosol powder Generic drug: Cpejbnwxtca-Ebjeapztn-Kvhcvj INHALE 1 PUFF INTO THE LUNGS DAILY AT 0900. Where to Get Your Medications These medications were sent to [facility] [place], [place] - [address] [facility] [id number] calcium carbonate 500 MG chewable tablet HYDROmorphone [...] 04, 2025 at 1:00PM Dr. Rodney Gonzáles [facility] Specialty Clinic (Oncology) [address] [place] [address] * Care Plan - Sandy Moseley RN [...] (see comments) Patient/Family Anticipated Services at Transition: pillowcase maker Patient/Family Anticipates Transition to: home with family [...] and grandson on the bed side when subacute nurse visited and they were appreciative of subacute nurse's visit. Prayer and nicole is important to them. [employer] supported them emotionallyand spiritually. Referral From: [employer] Initiated Pastoral Care Provided For: Patient, Spouse, [...] and gratitude, Emotional support, Introduced Patient/Family to [employer] Services, Supportive Listening, Spiritual support Pastoral Care Outcomes: Patient Outcomes: Expresses acceptance, Demonstrates lower level of Anxious(ness), Is knowledgeableabout Medical Management Specialist Services, Being at peace, Demonstrates and/or verbalizes increased comfort, Endorses increased sense of connection, Expresses intent to participate/comply in plan of care, Expresses e motionally release, Is functionally engaged in meaning making, Gratitude, Expresses feeling spiritually nurtured, Communicates increased satisfaction with hospital experience, Identifies spiritual orreligious practices as helpful, Expresses increased trust in medical team and/or plan of care, Appreciative of [employer] Support, Expresses being seen and heard Cosigned by Azeb Worthy at 03/23/2025 10:36 AM EDT Associated attestation - Azeb Worthy Billy - 03/23/2025 10:36 AM EDT This is to attest subacute nurse communications marketing intern chart note has been reviewed and okayed. [...] 7:52 PM EDTAssociated Order(s): Consult to [facility] Consult to [facility] Consult performed by: Navi Tripathi MD [...] the pain caused him to present to [facility] ED, where CT scan showed interval [...] 98%. Results Review {Vanishing Link Review Results :[id number] I have reviewed the latest lab and [...] 64 y.o. male with history of cirrhosis, [place], CAD s/p CABG x4 with re-stenosis with revision, COPD, HTN, HFmrEF, central cord syndrome, inguinal hernia, cholelithiasis, recently disagnosed HCC with new central necrosis of tumor on CT at OSH today who presents with Abdominal Pain. Patient took prescription medication prior to arrival. Patient sent from [facility] for concern of tumor necrosis with fistulization to bile ducts. Patient reports epigastric, LUQ, and RUQ abdominal pain and pressure that began last night. He presented to [facility] for evaluation. He had a CT [...] and Affect: Mood normal. Behavior: Behavior normal. [place] Coma Scale Score: 15 ED Course & MDM - Assessment: 64 y.o. male presents to ED with complaint of abdominal pain and abnormal CT results. It should be noted that the chronic conditions includes cirrhosis, KS, CAD s/p CABG x4 with re-stenosis with [...] JEFRY TRIPATHIIA SUKUMAR A 03/20/251900 Consult to [facility] Medicine [facility] Specialty: Internal Medicine Provider: [...] that began last night. Was seen at [facility] and had CT scan of chest [...] ESS resident, patient to be admitted to [facility] medicine and transplant teamwill see him tomorrow. No needs overnight. [MR] [id number] Reached out to hospital medicine for admission [MR] 1917 They agree to admit patient to [place] for multidisciplinary care. They will put in admissionorders and transfer him to [facility]. Patient updated on plan and provided ice [...] transferred to [facility] Admitting/Attending Physician: NAVI TRIPATHI [[id number]] Provider Care Team: JHOANA 11 [[id number]] Are [...] * PT/INR (03/21/2025 6:32 AM EDT) Pathologist [facility] Prothrombin Time 13.8 12.0 - 14.3 sec LAB COAGULATION METHOD 03/21/2025 7:00 AM EDT [facility] INR 1.1 0.9 - 1.1 LAB COAGULATION METHOD 03/21/2025 7:00 AM EDT [facility] Blood Venous blood specimen / Unknown Venipuncture / Unknown 03/21/2025 6:32 AM EDT 03/21/2025 6:43 AM EDT Narrative [facility] - 03/21/2025 7:00 AM EDT OPTIMAL INR RANGES FOR PATIENT ON ORAL ANTICOAGULANT THERAPY Prevention of venous thromboembolism INR 2.0 to 3.0 In patients with heart disease: Atrial fibrillation INR 2.0 to 3.0 Valvular heart disease INR 2.0 to 3.0 Tissue heart valves INR 2.0 to 3.0 Mechanical prosthetic valves INR 2.5 to 3.5 Prevention of recurrent [place] INR 2.5 to 3.5 us Navi Tripathi MD LAB BLOOD ORDERABLE S Final Result [facility] [address] [place] [address] * (ABNORMAL) Comprehensive metabolic panel (03/21/2025 6:32 AM EDT) Pathologist [facility] Glucose, Plasma 107(H) 74 - 99 mg/dL 03/21/2025 7:11 AM EDT [facility] BUN, Plasma 12 8 - 23 mg/dL 03/21/2025 7:11 AM EDT [facility] Creatinine, Plasma 0.77 0.70 - 1.20 mg/dL 03/21/2025 7:11 AM EDT [facility] BUN/Creatinine Ratio 16 03/21/2025 7:11 AM EDT [facility] Sodium, Plasma 139 136 - 145 mmol/L 03/21/2025 7:11 AM EDT [facility] Potassium, Plasma 4.6 3.6 - 4.9 mmol/L 03/21/2025 7:11 AM EDT [facility] Comment:Hemolyzed, result ma y be falsely increased. Chloride, Plasma 105 97 - 107 mmol/L 03/21/2025 7:11 AM EDT [facility] CO2, Plasma 23 22 - 29 mmol/L 03/21/2025 7:11 AM EDT [facility] Anion Gap 11 6 - 16 mmol/L 03/21/2025 7:11 AM EDT [facility] Total Calcium, Plasma 9.4 8.9 - 10.2 mg/dL 03/21/2025 7:11 AM EDT [facility] Total Protein 7.0 6.3 - 7.9 g/dL 03/21/2025 7:11 AM EDT [facility] Albumin, Plasma 3.6 3.5 - 5.2 g/dL 03/21/2025 7:11 AM EDT [facility] AST, Plasma 621(H) 10 - 50 U/L 03/21/2025 7:11 AM EDT [facility] Comment:Hemolyzed, result ma y be falsely increased. ALT, Plasma 48 10 - 50 U/L 03/21/2025 7:11 AM EDT [facility] Alkaline Phosphatase, Plasma 232(H) 40 - 115 U/L 03/21/2025 7:11 AM EDT [facility] Total Bilirubin, Plasma 0.6 0.2 - 1.1 mg/dL 03/21/2025 7:11 AM EDT [facility] eGFRcr 98.7 mL/min/1.7 3m*2 03/21/2025 7:11 AM EDT [facility] Comment:Reported eGFRcr in m L/min/1.73m2 is based the CKD-EPI 2020 equation that does not use a race coefficient. Blood Venous blood specimen / Unknown Venipuncture / Unknown 03/21/2025 6:32 AM EDT 03/21/2025 6:43 AM EDT us Navi Tripathi MD LAB BLOOD ORDERABLE S Final Result [facility] [address] [place] [address] * (ABNORMAL) CBC and Differential (03/21/2025 6:32 AM EDT) WBC Count 6.12 3.70 - 10.30 10*3/uL LAB HEMATOLOGY METHOD 03/21/2025 6:58 AM EDT [facility] RBC Count 4.62 4.60 - 6.10 10*6/uL LAB HEMATOLOGY METHOD 03/21/2025 6:58 AM EDT [facility] HGB 15.2 13.7 - 17.5 g/dL LAB HEMATOLOGY METHOD 03/21/2025 6:58 AM EDT [facility] HCT 45.4 40.0 - 51.0 % LAB HEMATOLOGY METHOD 03/21/2025 6:58 AM EDT [facility] Platelet Count 82(L) 155 - 369 10*3/uL LAB HEMATOLOGY METHOD 03/21/2025 6:58 AM EDT [facility] MCV 98 79 - 98 fL LAB HEMATOLOGY METHOD 03/21/2025 6:58 AM EDT [facility] MCH 32.9(H) 26.0 - 32.0 pg LAB HEMATOLOGY METHOD 03/21/2025 6:58 AM EDT [facility] MCHC 33.5 30.7 - 35.5 g/dL LAB HEMATOLOGY METHOD 03/21/2025 6:58 AM EDT [facility] RDW 16.8(H) 11.5 - 14.5 % LAB HEMATOLOGY METHOD 03/21/2025 6:58 AM EDT [facility] MPV 12.2 8.8 - 12.5 fL LAB HEMATOLOGY METHOD 03/21/2025 6:58 AM EDT [facility] nRBC 0.0 <=0.0 per 100 WBCs LAB HEMATOLOGY METHOD 03/21/2025 6:58 AM EDT [facility] Differential Type Automated LAB HEMATOLOGY METHOD 03/21/2025 6:58 AM EDT [facility] Neutrophils % 55 % LAB HEMATOLOGY METHOD 03/21/2025 6:58 AM EDT [facility] Lymphocytes % 24 % LAB HEMATOLOGY METHOD 03/21/2025 6:58 AM EDT [facility] Monocytes % 17 % LAB HEMATOLOGY METHOD 03/21/2025 6:58 AM EDT [facility] Eosinophils % 2 % LAB HEMATOLOGY METHOD 03/21/2025 6:58 AM EDT [facility] Basophils % 1 % LAB HEMATOLOGY METHOD 03/21/2025 6:58 AM EDT [facility] Immature Granulocytes % 1 % LAB HEMATOLOGY METHOD 03/21/2025 6:58 AM EDT [facility] Neutrophils Absolute 3.46 1.60 - 6.10 10*3/uL LAB HEMATOLOGY METHOD 03/21/2025 6:58 AM EDT [facility] Lymphocytes Absolute 1.45 1.20 - 3.90 10*3/uL LAB HEMATOLOGY METHOD 03/21/2025 6:58 AM EDT [facility] Monocytes Absolute 1.03(H) 0.30 - 0.90 10*3/uL LAB HEMATOLOGY METHOD 03/21/2025 6:58 AM EDT [facility] Eosinophils Absolute 0.11 0.00 - 0.50 10*3/uL LAB HEMATOLOGY METHOD 03/21/2025 6:58 AM EDT [facility] Basophils Absolute 0.04 0.00 - 0.10 10*3/uL LAB HEMATOLOGY METHOD 03/21/2025 6:58 AM EDT [facility] Immature Granulocytes Absolute 0.03 0.00 - 0.06 10*3/uL LAB HEMATOLOGY METHOD 03/21/2025 6:58 AM EDT [facility] Blood Venous blood specimen / Unknown Venipuncture / Unknown 03/21/2025 6:32 AM EDT 03/21/2025 6:43 AM EDT Narrative [facility] - 03/21/2025 6:58 AM EDT Therapeutic decision making should be based on absolute values, rather than percentages. us Navi Tripathi MD LAB BLOOD ORDERABLE S Final Result [facility] [address] [place] [address] * Troponin T, High Sensitivity, 2 Hour, Plasma (03/20/2025 10:54 PM EDT) Troponin T, High Sensitivity, 2 Hour 10 <19 ng/L 03/20/2025 11:31 PM EDT [facility] Blood Venous blood specimen / Unknown Venipuncture / Unknown 03/20/2025 10:54 PM EDT 03/20/2025 11:04 PM EDT Navi Tripathi MD LAB BLOOD ORDERABLE S Final Result [facility] [address] [place] [address] * Troponin now and 120 min (03/20/2025 6:51 PM EDT) Troponin T, High Sensitivity, 0 Hour 9 <19 ng/L 03/20/2025 7:35 PM EDT [facility] Blood Venous blood specimen / Unknown Venipuncture / Unknown 03/20/2025 6:51 PM EDT 03/20/2025 7:09 PM EDT Result [facility] Adrienne SmithTravelatus GENESIS LAB BLOOD ORDERABLES Courtney l Result Performing Organization Address City/[facility]/ZIP Co de Phone Number [facility] [address] [place] [address] * ED HIV 1/2 Antibody/Antigen Screen w/Reflex to HIV 1/2 Differentiation (03/20/2025 6:51 PM EDT) Pathologist [facility] HIV 1 & 2 Antibody/Antigen Screen Non Reactive Non Reactive 03/20/2025 8:05 PM EDT [facility] Comment:Screening for HIV 1 & 2 antibodies, and P24 antigen is NONREACTIVE. No confirmatory testing is required. Blood Venous blood specimen / Unknown Venipuncture / Unknown 03/20/2025 6:51 PM EDT 03/20/2025 7:09 PM EDT Result [facility] Adrienne Driscoll JournallyMeTravelatus PA LAB BLOOD ORDERABLES Courtney l Result Performing Organization Address City/[facility]/ZIP Co de Phone Number [facility] [address] [place] [address] * Hepatitis C Antibody - ED (03/20/2025 6:51 PM EDT) [facility] Hepatitis C Antibody Negative Negative 03/20/2025 8:01 PM EDT [facility] Blood Venous blood specimen / Unknown Venipuncture / Unknown 03/20/2025 6:51 PM EDT 03/20/2025 7:09 PM EDT Adrienne A RebsaTravelatus PA LAB BLOOD ORDERABLES Courtney l Result Performing Organization Address City/[facility] Co de Phone Number [facility] [address] [place] [address] * APTT (03/20/2025 6:51 PM EDT) [facility] aPTT 31 25 - 35 sec 03/20/2025 7:25 PM EDT [facility] Blood Venous blood specimen / Unknown Venipuncture / Unknown 03/20/2025 6:51 PM EDT 03/20/2025 7:08 PM EDT Adrienne A JournallyMesaTravelatus PA LAB BLOOD ORDERABLES Courtney l Result Performing Organization Address [facility] de Phone Number [facility] [address] [place] [address] * C-Reactive protein (03/20/2025 6:51 PM EDT) [facility] CRP, Plasma 5.2 <=8.0 mg/L 03/20/2025 7:35 [...] high sensitivity CRP (CRPH). us Adrienne A RebsaTravelatus PA LAB BLOOD ORDERABLES Courtney l Result Performing Organization Address [facility] Co de Phone Number [facility] [address] [place] [address] * Lactic acid, venous (03/20/2025 6:51 PM EDT) Pathologist [facility] Lactate, Venous, Whole Blood 1.7 0.5 - 2.2 mmol/L LAB HEMATOLOGY METHOD 03/20/2025 7:12 PM EDT [facility] Blood Venous blood specimen / Unknown Venipuncture / Unknown 03/20/2025 6:51 PM EDT 03/20/2025 7:08 PM EDT Adrienne A BeiBei LAB BLOOD ORDERABLES Courtney l Result [facility] [address] [place] [address] * Lipase (03/20/2025 6:51 PM EDT) Pathologist [facility] Lipase, Plasma 19 19 - 63 U/L 03/20/2025 7:35 PM EDT [facility] Blood Venous blood specimen / Unknown Venipuncture / Unknown 03/20/2025 6:51 PM EDT 03/20/2025 7:09 PM EDT Adrienne A Nagi PA LAB BLOOD ORDERABLES Courtney l Result Performing Organization Address City/[facility] Co de Phone Number [facility] [address] [place] [address] * PT-INR (03/20/2025 6:51 PM EDT) [facility] Prothrombin Time 13.8 12.0 - 14.3 sec [...] INR 2.5 to 3.5 Prevention of recurrent [place] INR 2.5 to 3.5 us Adrienne HURTADO LAB BLOOD ORDERABLES Courtney vega Result [facility] [address] [place] [id number] * (ABNORMAL) CMP (03/20/2025 6:51 PM EDT) Pathologist [facility] Glucose, Plasma 89 74 - 99 mg/dL 03/20/2025 7:47 PM EDT [facility] BUN, Plasma 15 8 - 23 mg/dL 03/20/2025 7:47 PM EDT [facility] Creatinine, Plasma 0.77 0.70 - 1.20 mg/dL 03/20/2025 7:47 PM EDT [facility] BUN/Creatinine Ratio 19 03/20/2025 7:47 PM EDT [facility] Sodium, Plasma 141 136 - 145 mmol/L 03/20/2025 7:47 PM EDT [facility] Potassium, Plasma 3.9 3.6 - 4.9 mmol/L 03/20/2025 7:47 PM EDT [facility] Chloride, Plasma 102 97 - 107 mmol/L 03/20/2025 7:47 PM EDT [facility] CO2, Plasma 26 22 - 29 mmol/L 03/20/2025 7:47 PM EDT [facility] Anion Gap 13 6 - 16 mmol/L 03/20/2025 7:47 PM EDT [facility] Total Calcium, Plasma 9.6 8.9 - 10.2 mg/dL 03/20/2025 7:47 PM EDT [facility] Total Protein 7.4 6.3 - 7.9 g/dL 03/20/2025 7:47 PM EDT [facility] Albumin, Plasma 3.7 3.5 - 5.2 g/dL 03/20/2025 7:47 PM EDT [facility] AST, Plasma 395(H) 10 - 50 U/L 03/20/2025 7:47 PM EDT [facility] Comment:Hemolyzed, result ma y be falsely increased. ALT, Plasma 43 10 - 50 U/L 03/20/2025 7:47 PM EDT [facility] Alkaline Phosphatase, Plasma 210(H) 40 - 115 U/L 03/20/2025 7:47 PM EDT [facility] Total Bilirubin, Plasma 0.7 0.2 - 1.1 mg/dL 03/20/2025 7:47 PM EDT [facility] eGFRcr 98.7 mL/min/1.7 3m*2 03/20/2025 7:47 PM EDT [facility] Comment:Reported eGFRcr in m L/min/1.73m2 is based the CKD-EPI 2020 equation that does not use a race coefficient. Blood Venous blood specimen / Unknown Venipuncture / Unknown 03/20/2025 6:51 PM EDT 03/20/2025 7:09 PM EDT Adrienne HURTADO LAB BLOOD ORDERABLES Courtney l Result [facility] [address] [place] [address] * (ABNORMAL) CBC w/diff (03/20/2025 6:51 PM EDT) WBC Count 6.84 3.70 - 10.30 10*3/uL LAB HEMATOLOGY METHOD 03/20/2025 7:21 PM EDT [facility] RBC Count 4.63 4.60 - 6.10 10*6/uL LAB HEMATOLOGY METHOD 03/20/2025 7:21 PM EDT [facility] HGB 15.3 13.7 - 17.5 g/dL LAB HEMATOLOGY METHOD 03/20/2025 7:21 PM EDT [facility] HCT 44.8 40.0 - 51.0 % LAB HEMATOLOGY METHOD 03/20/2025 7:21 PM EDT [facility] Platelet Count 79(L) 155 - 369 10*3/uL LAB HEMATOLOGY METHOD 03/20/2025 7:21 PM EDT [facility] MCV 97 79 - 98 fL LAB HEMATOLOGY METHOD 03/20/2025 7:21 PM EDT [facility] MCH 33.0(H) 26.0 - 32.0 pg LAB HEMATOLOGY METHOD 03/20/2025 7:21 PM EDT [facility] MCHC 34.2 30.7 - 35.5 g/dL LAB HEMATOLOGY METHOD 03/20/2025 7:21 PM EDT [facility] RDW 16.5(H) 11.5 - 14.5 % LAB HEMATOLOGY METHOD 03/20/2025 7:21 PM EDT [facility] MPV 11.2 8.8 - 12.5 fL LAB HEMATOLOGY METHOD 03/20/2025 7:21 PM EDT [facility] nRBC 0.0 <=0.0 per 100 WBCs LAB HEMATOLOGY METHOD 03/20/2025 7:21 PM EDT [facility] Differential Type Automated LAB HEMATOLOGY METHOD 03/20/2025 7:21 PM EDT [facility] Neutrophils % 60 % LAB HEMATOLOGY METHOD 03/20/2025 7:21 PM EDT [facility] Lymphocytes % 26 % LAB HEMATOLOGY METHOD 03/20/2025 7:21 PM EDT [facility] Monocytes % 12 % LAB HEMATOLOGY METHOD 03/20/2025 7:21 PM EDT [facility] Eosinophils % 2 % LAB HEMATOLOGY METHOD 03/20/2025 7:21 PM EDT [facility] Basophils % 0 % LAB HEMATOLOGY METHOD 03/20/2025 7:21 PM EDT [facility] Immature Granulocytes % 0 % LAB HEMATOLOGY METHOD 03/20/2025 7:21 PM EDT [facility] Neutrophils Absolute 4.05 1.60 - 6.10 10*3/uL LAB HEMATOLOGY METHOD 03/20/2025 7:21 PM EDT [facility] Lymphocytes Absolute 1.77 1.20 - 3.90 10*3/uL LAB HEMATOLOGY METHOD 03/20/2025 7:21 PM EDT [facility] Monocytes Absolute 0.85 0.30 - 0.90 10*3/uL LAB HEMATOLOGY METHOD 03/20/2025 7:21 PM EDT [facility] Eosinophils Absolute 0.11 0.00 - 0.50 10*3/uL LAB HEMATOLOGY METHOD 03/20/2025 7:21 PM EDT [facility] Basophils Absolute 0.03 0.00 - 0.10 10*3/uL LAB HEMATOLOGY METHOD 03/20/2025 7:21 PM EDT [facility] Immature Granulocytes Absolute 0.03 0.00 - 0.06 10*3/uL LAB HEMATOLOGY METHOD 03/20/2025 7:21 PM EDT [facility] Blood Venous blood specimen / Unknown Venipuncture / Unknown 03/20/2025 6:51 PM EDT 03/20/2025 7:08 PM EDT Narrative [facility] - 03/20/2025 7:21 PM EDT Therapeutic decision making should be based on absolute values, rather than percentages. Adrienne HURTADO LAB BLOOD ORDERABLES Courtney l Result Performing Organization Address City/[facility]/ZIP Co de Phone Number [facility] [address] [place] [address] * EKG now - STAT (adult) (03/20/2025 5:31 PM EDT) EKG DIAGNOSIS CLASS Abnormal MUSE ECG Ventricular Rate 60 BPM MUSE ECG Atrial Rate 60 BPM MUSE ECG OR Interval 176 ms MUSE ECG QRSD Interval 86 ms MUSE ECG QT Interval 422 ms MUSE ECG QTC Interval 422 ms MUSE ECG P [place] 53 degrees MUSE ECG R [place] -37 degrees MUSE ECG T Wave [place] 80 degrees MUSE ECG Diagnosis Atrial-paced rhythm MUSE ECG Diagnosis Left axis deviation MUSE ECG Diagnosis T wave abnormality, consider anterior ischemia MUSE ECG Diagnosis Abnormal ECG MUSE ECG Diagnosis MUSE ECG Diagnosis Confirmed by J Carlos Campbell ([id number]) on 03/20/2025 5:41:58 PM MUSE ECG 03/20/2025 5:31 PM EDT 03/20/2025 5:41 PM EDT Adrienne HURTADO ECG ORDERABLES Final Res ult Performing Organization Address [facility] Co de Phone Number MUSE ECG documented [...] documented as of this encounter Care Teams Chief Controller Relationship Specialty Start Date End Date Pcp, Tiki [address] [place] [address] PCP - General Family Medicine 03/20/25 Isabella Saucedo APRN [address] [place] [address] Referring Physician 02/26/25 Jeannie Mcmillan, RN [facility] [address] [place] [id number] Registered Nurse Transplant Surgery 03/08/25 [place] [address] Registered Nurse Transplant Surgery 03/08/25 documented as of this encounter
--- OUTSIDE RECORDS SUMMARY | 2025-04-23 09:00 | XMS_ITS | Encounter Summary ---
Author Organization [place] [address] Care Team Providers Care Pillowcase Cleaner Name Role Phone Jan Sin MD Unavailable [phone] Macario Pryor MD Unavailable [facility] Cr Resendez MD Primary Care Provider [phone] Reason for Visit * Reason Comments Annual Exam Encounter Details Date Type Department Care Team (Late st Contact Info) Description 04/23/2025 9:00 AM EDT Office Visit SEP Luis [facility] [place] [phone] Cr Resendez MD [address] [place] [address] TRIST[place] MARTINEZ [id number] Encounter for Medicare annual wellness exam (Primary [...] Under treatment with GI and oncology at [facility]. On once monthly chemotherapy atthis time. [...] Currently being treated for hepatocellular carcinoma at [facility] Fall Risk Assessment: Fall Risk Assessment: [...] Under treatment with GI and oncology at [facility]. On once monthly chemotherapy atthis time. [...] prostate cancer screening Bilateral impacted cerumen Orders: [place] REMOVAL IMPACTED CERUMEN IRRIGATION/LVG UNILAT Cerumen impaction [...] visit. If you have a power of disability attorney stute, we should also have a [...] provided to the patient digitally through their [employer] account or with a paper copy if the patient doesn't have an active MyChart Account. A copy of today's progress note with recommendations below is alsoavailable electronically for patients with an active [employer] account per the Federal Cures Act. TheAVS [...] disease) (HCC) Depression Headache(784.0) Hypertension Kidney stone [place] (myocardial infarction) (HCC) 4 times Neuromuscular disorder (HCC) back and left leg Other disorders of kidney and ureter trys to go often Shortness of breath Past Surgical History: Procedure Laterality Date BACK SURGERY 08/30/1997 CARDIAC SURGERY cabg 2 times CARDIAC SURGERY 2019 pace maker CATARACT REMOVAL 08/30/2007 COLONOSCOPY N/A 10/14/2015 COLONOSCOPY snare polypectomy; Surgeon: Poppy Quintero MD; Location: [facility] ENDOSCOPY; Service: Endoscopy CORONARY ANGIOPLASTY WITH STENT PLACEMENT 01/04/2024 [facility] EYE SURGERY sandra cataract HERNIA REPAIR NECK SURGERY 12/06/2024 [facility] SPINAL CORD DECOMPRESSION 08/30/1998 UPPER GASTROINTESTINAL ENDOSCOPY N/A 10/30/2015 ESOPHAGOGASTRODUODENOSCOPY with biopsies; Surgeon: Poppy Quintero MD; Location: [facility] END[facility]COPY; Service: Endoscopy VASCULAR SURGERY spinal cord [...] Tablet by mouth daily. 90 Tablet 3 oxjxdnuleqz-bujdyqguo-ytjqjkfl (TRELEGY ELLIPTA) 100-62.5-25 mcg Inhl Disk with [...] SHAKE WELL nalOXone (NARCAN) 4 mg/actuation Nasl [place], Non-Aerosol 0.1 mL by Nasal route daily [...] Food Insecurity: Patient Declined (12/07/2024) Received from [facility] Hunger Vital Sign Worried About Running Out of Food in the Last Year: Patient declined Ran Out of Food in the Last Year: Patient declined Transportation Needs: Patient Declined (12/07/2024) Received from [facility] PRAPARE - Transportation Lack of Transportation (Medical): Patient declined Lack of Transportation (Non-Medical): Patient declined Housing Stability: Patient Declined (12/07/2024) Received from [facility] Housing Stability Vital Sign Unable to [...] Type Priority Associated Diagnoses Orde r Schedule MO REMOVAL IMPACTED CERUMEN IRRIGATION/LVG UNILAT MO Charge Routine Bilateral impacted cerumen Ordered: 04/23/2025 [...] 0.08 <=4.00 ng/mL 04/23/2025 3:49 PM EDT [facility] Blood VENOUS BLOOD / Unknown Venipuncture / Unknown 04/23/2025 9:47 AM EDT 04/23/2025 9:47 AM EDT Narrative [facility] - 04/23/2025 3:49 PM EDT [facility] Ricky [...] Resendez MD CHEMISTRY ORDERABLES Final Res ult [facility] [address] [facility] , [address] [place], [place] [id number] * LIPID PANEL REFLEX (04/23/2025 9:47 AM EDT) Cholesterol 98 <200 mg/dL 04/23/2025 4:37 PM EDT [facility] Comment: < 200 Desirable 200 - 239 Borderline High >= 240 High Triglyceride 38 <150 mg/dL 04/23/2025 4:37 PM EDT [facility] Comment: < 150 Normal 150 - 199 Borderline High 200 - 499 High >= 500 Very High HDL 40 >=40 mg/dL 04/23/2025 4:37 PM EDT [facility] Comment: > 60 Optimal 40 - 60 Acceptable < 40 Low LDL Calculated 47 <100 mg/dL 04/23/2025 4:37 PM EDT [facility] Comment: < 100 Optimal 100 - 129 Near or above optimal 130 - 159 Borderline High 160 - 189 High >= 190 Very High The National Institutes of Health (NIH) equation is used for all lipid panels that report calculated LDL (LDL-C). Non-HDL-C Calculated 58 <=129 mg/dL 04/23/2025 4:37 PM EDT [facility] Comment: <130 Desirable 130-159 Above Desirable 160-189 Borderline High 190-219 High >= 220 Very High Fasting Specimen? Yes None 025 4:37 PM EDT [facility] Blood VENOUS BLOOD / Unknown Venipuncture / Unknown 04/23/2025 9:47 AM EDT 04/23/2025 9:47 AM EDT Cr Resendez MD CHEMISTRY ORDERABLES Final Res ult Performing Organization Address City/[facility]/ZIP Co de Phone Number [facility] [address] [facility] , [place] [address] * TSH REFLEX TO FT4 (04/23/2025 9:47 AM EDT) TSH Reflex 0.889 0.270 - 4.200 mcIU/mL 04/23/2025 4:37 PM EDT [facility] Blood VENOUS BLOOD / Unknown Venipuncture / Unknown 04/23/2025 9:47 AM EDT 04/23/2025 9:47 AM EDT Narrative [facility], [facility] - 04/23/2025 4:37 PM EDT Ingestion of fernanda doses of biotin (>5 mg/day) taken within 8 hours of drawing blood sample can interfere with this immunoassay test. us Cr Resendez MD CHEMISTRY ORDERABLES Final Res ult [facility] [address] [facility] , [place] [address] * (ABNORMAL) CBC WITH DIFF (04/23/2025 9:47 AM EDT) WBC 7.3 3.7 - 10.3 x10(3)/mcL 04/23/2025 4:08 PM EDT [facility] RBC 4.77 4.60 - 6.10 x10(6)/mcL 04/23/2025 4:08 PM EDT [facility], [facility] Hgb 15.3 13.7 - 17.5 g/dL 04/23/2025 4:08 PM EDT [facility] Hct 46.8 40.0 - 51.0 % 04/23/2025 4:08 PM EDT [facility], [facility] MCV 98.1 80.0 - 100.0 fL 04/23/2025 4:08 PM EDT [facility] MCH 32.1 26.0 - 34.0 pg 04/23/2025 4:08 PM EDT [facility], [facility] MCHC 32.7 30.7 - 35.5 g/dL 04/23/2025 4:08 PM EDT [facility], [facility] RDW 14.9 <=14.9 % 04/23/2025 4:08 PM EDT [facility], [facility] Platelet 90(L) 155 - 369 x10(3)/mcL 04/23/2025 [...] 4:08 PM EDT [facility] [place] # 1.2(H) 0.3 - 0.9 x10(3)/mcL 04/23/2025 4:08 PM EDT [facility] Eos # Manual 0.0 0.0 - 0.5 x10(3)/mcL 04/23/2025 4:08 PM EDT [facility] Baso # Manual 0.1 0.0 - 0.1 x10(3)/mcL 04/23/2025 4:08 PM EDT [facility] Polychrom Slight 04/23/2025 4:08 PM EDT [facility] [place] Cell Moderate 04/23/2025 4:08 PM EDT [facility] [...] [facility] [address] [facility] , [place] [address] * (ABNORMAL) COMPREHENSIVE METABOLIC PANEL (04/23/2025 9:47 [...] mL/min/1.7 3 m2 04/23/2025 4:37 PM EDT [facility] Comment:Estimated GFR was ca lculated using the CKD-EPIcr (2020) equation refit without race. The equation is recommended by the National Kidney Foundation - [place] Society of Nephrology Task Force. Blood VENOUS BLOOD / Unknown Venipuncture / Unknown 04/23/2025 9:47 AM EDT 04/23/2025 9:47 AM EDT Cr Resendez MD CHEMISTRY ORDERABLES Final Res ult Performing Organization Address [facility]/ZIP Co de Phone Number [facility] [address] [place] [address] , [place] [address] * (ABNORMAL) HEMOGLOBIN A1C (04/23/2025 9:47 AM EDT) Hgb A1C 5.7(H) 4.2 - 5.6 % 04/23/2025 5:18 PM EDT [facility] Est. Avg Glucose 117 mg/dL 04/23/2025 5:18 PM EDT [facility] Blood VENOUS BLOOD / Unknown Venipuncture / Unknown 04/23/2025 9:47 AM EDT 04/23/2025 9:47 AM EDT Narrative [facility] - 04/23/2025 5:18 PM EDT REFERENCE RANGE: Normal: 4.0-5.6% Pre-diabetes: 5.7-6.4% Provisional diagnosis of diabetes: >6.4% Hgb F>10% and anything which shortens red cell survival, such as hemolytic anemia, or unstable hemoglobin variants such as HbSS, HbSC, or HbCC, will lower the HbA1c value associated with a given level of glycemic control. Cr Resendez MD CHEMISTRY ORDERABLES Final Res ult Performing Organization Address [facility]/ZIP Co de Phone Number [employer] [address] , [place] [address] documented in this encounter Visit [...] documented as of this encounter Care Teams Pillowcase Cleaner Relationship Specialty Start Date End Date Macario Pryor MD [address] [place] [address] [place] [address] PCP - Hematology/Oncology Internal Medicine-Medical Oncology 11/12/15 Cr Resendez MD [address] [place] [address] [place] [address] PCP - General Family Medicine 11/24/21 Jan Sin MD [address] [place] [address] [place] [id number] Internal Medicine-Cardiovascul ar Disease 08/28/14 documented as of this encounter
--- OUTSIDE RECORDS SUMMARY | 2025-04-23 09:30 | XMS_ITS | Encounter Summary ---
Author Organization [place] [address] Care Team Providers Care Nut Processing Supervisor Name Role Phone Jan Sin MD Unavailable [phone] Macario Pryor MD Unavailable Cr Rodriguez MD Primary Care Provider [phone] Reason for Visit * Reason Comments Care Management - Face To Face Care Transition Advance Care Planning Encounter Details Date Type Department Care Team (Latest Contact Info) Description 04/23/2025 9:30 AM EDT Clinical Support [facility] [place] [facility] [address] [place] [address] Elizabeth Reynoso, NIURKA Encounter for support [...] presents for follow up visit with Office House Wrecker (OCC) Reason for visit: Advanced Care Planning Visit Type: Face to Face Assessment: leasing coordinator met with patient and spouse to [...] Educated patient on: Advanced Care Planning Handouts: [place] Living Will x 2 copies Handouts provided in person Care Coordination Business Card Goals: One-time assessment Next Steps: House Wrecker contact information given / reviewed Notes: No identified SDOH concerns after SDOH assessment review documented in this encounter Miscellaneous Notes * ACP (Advance Care Planning) - Elizabeth Reynoso RN - 04/23/2025 9:30 AM EDT Advance Care Planning discussion: ACP discussion: This senior writer and patient addressed ACP including explanation [...] documented as of this encounter Care Teams Nut Processing Supervisor Relationship Specialty Start Date End Date Macario Pryor MD [address] [place] [address] TRISTIAN NAILS [address] PCP - Hematology/Oncology Internal Medicine-Medical Oncology 11/12/15 Cr Resendez MD [address] [place] [address] TRISTIAN MARTINEZ [address] PCP - General Family Medicine 11/24/21 Jan Sin MD [address] [place] [address] TRISTIAN NAILS [address] Internal Medicine-Cardiovascul ar Disease 08/28/14 documented as of this encounter
[2025-05-01 10:36] VITALS: BP 153/49; PULSE 81; RESP 16; TEMP 36.6; O2SAT 98; BMI 20.5
[2025-05-01 11:15] LABS: Hematocrit 41.4 % (42.0-52.0); Hemoglobin 14.4 g/dL (14.1-18.0); Immature Granulocytes % 0.5 %; Mean Corpuscular HGB Conc 34.8 g/dL (31.8-35.4); Mean Corpuscular Hemoglobin 32.3 pg (27.0-31.2); Mean Corpuscular Volume 92.8 fl (80-94); Nucleated Red Blood Cells % 0 %; Platelet Count 144 K/mm3 (142-424); Red Blood Count 4.46 M/mm3 (4.60-6.20); Red Cell Distribution Width-SD 51.8 fL; White Blood Count 8.7 K/mm3 (4.8-10.8)
[2025-05-01 11:18] LABS: Chloride 105 mmol/L (98-107)
[2025-05-01 11:18] LABS: Microscopic, Urine URINE MICROSCOPIC (MICROSCOPIC)
[2025-05-01 11:19] LABS: Albumin Level 3.8 g/dl (3.5-5.0); Potassium 4.3 mmoL/L (3.5-5.1); Sodium 138 mmol/L (136-145)
[2025-05-01 11:21] LABS: Alanine Aminotransferase 34 U/L (12-78); Anion Gap 12.3 mEq/L (5-15); Aspartate Amino Transferase 264 U/L (17-59); Blood Urea Nitrogen 20 mg/dl (9-20); Carbon Dioxide 25 mmol/L (22.0-30.0); Creatinine Clearance Estimated 62 mL/min (50-200); Creatinine,Serum 0.90 mg/dl (0.66-1.25); Estimated Glomerular Filt Rate 84 ml/min (>60); GFR (African American) 102 ML/MIN (>60)
[2025-05-01 11:22] LABS: Albumin/Globulin Ratio 1.0 (1.1-1.8); Alkaline Phosphatase 234 U/L (38-126); Bilirubin,Total 3.8 mg/dl (0.2-1.3); Calcium 9.5 mg/dl (8.4-10.2); Globulin 4.0 g/dL (1.3-3.2); Glucose 95 mg/dl (74-100); Total Protein,Serum 7.8 g/dl (6.3-8.2)
[2025-05-01 11:28] LABS: Bilirubin,Urine Negative (Negative); Color,Urine YELLOW (Yellow); Glucose,Urine (UA) 3+ (Negative); Ketones,Urine Negative (Negative); Leukocyte Esterase,Urine Negative (Negative); PH,Urine 5.5 (5.0-8.5); Protein,Urine Negative (Negative); Specific Gravity, Urine 1.020 (1.005-1.030); Urobilinogen,Urine 2.0 EU/dl (0.2)
[2025-05-01 11:39] LABS: Troponin I < 0.01 ng/ml (0.00-0.034)
[2025-05-01 11:47] LABS: Ammonia 9 umol/L (9-30)
--- OUTSIDE RECORDS SUMMARY | 2025-05-01 11:47 | XMS_ITS | Encounter Summary ---
Author Organization Healthcare Address [address] [place] [address] Care Team Providers Care Deputy Treasurer Name Role Phone LewisIsabella Phong SUPERVISOR LIQUID YEAST Unavailable [phone] Jeannie Mcmillan RN Unavailable Ebony Shoemaker Unavailable [phone] Pcp, No Primary Care Provider Unavailabl [...] documented as of this encounter Care Teams Deputy Treasurer Relationship Specialty Start Date End Date Pcp, [address] [address] PCP - General Family Medicine 03/20/25 Isabella Saucedo APRN [facility] [facility] [address] [place] [address] Referring Physician 02/26/25 Jeannie Mcmillan, RN CH-TRANSPLANT ADMINISTRATION 800 [place] [address] Registered Nurse Transplant Surgery 03/08/25 [place] [address] Registered Nurse Transplant Surgery 03/08/25 documented as of this encounter
--- OUTSIDE RECORDS SUMMARY | 2025-05-01 11:47 | XMS_ITS | Encounter Summary ---
Author Organization Healthcare Address [address] [place] [address] Care Team Providers Care Wax Engraver Name Role Phone Isabella Saucedo Phong MARKETING ASSOCIATE Unavailable [phone] Jeannie Mcmillan RN Unavailable [phone] Ebony Shoemaker Unavailable [phone] Pcp, No Primary Care Provider Unavailabl e Encounter Details Date Type Department Care Team (Late st Contact Info) Description 03/20/2025 Orders Only External Location [address] [place] [address] Provider, External Social History Tobacco Use Types [...] documented as of this encounter Care Teams Wax Engraver Relationship Specialty Start Date End Date Pcp, No [address] [place] [address] PCP - General Family Medicine 03/20/25 Isabella Saucedo APRN [address] [place] [address] [address] [place] [address] Referring Physician 02/26/25 Jeannie Mcmillan, RN CH-TRANSPLANT ADMINISTRATION [address] [place] [address] Registered Nurse Transplant Surgery 03/08/25 [place] [address] Registered Nurse Transplant Surgery 03/08/25 documented as of this encounter
--- OUTSIDE RECORDS SUMMARY | 2025-05-01 11:47 | XMS_ITS | Encounter Summary ---
Author Organization [place] [address] Care Team Providers Care Technical Internship Name Role Phone Jan Sin MD Unavailable [phone] Macario Pryor MD Unavailable Unavailabl e Cr Resendez MD Primary Care Provider [phone] Reason for Visit * Reason Comments Medication Refill Encounter Details Date Type Department Care Team (Late st Contact Info) Description 04/26/2025 Refill SEP Luis [facility] [place] [address] Cr Resendez MD [address] [place] [address] [place] [address] Medication Refill Social History Tobacco Use Types [...] and sent to requesting pharmacy. Routed to [facility] if an appointment is needed. clopidogreL There [...] Discontinue Reason Start Date End Da te enpeoevndot-xayevkzzd-wcy anter (TRELEGY ELLIPTA) 100-62.5-25 mcg Inhl Disk [...] documented as of this encounter Care Teams Technical Internship Relationship Specialty Start Date End Date Macario Pryor MD [address] [place] [address] [address] [place] [address] PCP - Hematology/Oncology Internal Medicine-Medical Oncology 11/12/15 Cr Resendez MD [address] [place] [address] [address] [place] [address] PCP - General Family Medicine 11/24/21 Jan Sin MD [address] [place] [address] [address] [place] [address] Internal Medicine-Cardiovascul ar Disease 08/28/14 documented as of this encounter
--- OUTSIDE RECORDS SUMMARY | 2025-05-01 11:47 | XMS_ITS | Encounter Summary ---
Author Organization Healthcare Address [address] [place] [address] Care Team Providers Care Orthotic And Prosthetic Technician Name Role Phone Isabella Saucedo Phong BOTTOM SPRAYER Unavailable [phone] Jeannie Mcmillan RN Unavailable [phone] Ebony Shoemaker Unavailable [phone] Pcp, No Primary Care Provider Unavailabl e Encounter Details Date Type Department Care Team (Late st Contact Info) Description 03/20/2025 Orders Only External Location [address] [place] [address] Provider, External Social History Tobacco Use Types [...] documented as of this encounter Care Teams Orthotic And Prosthetic Technician Relationship Specialty Start Date End Date Pcp, No [address] [place] [address] PCP - General Family Medicine 03/20/25 Isabella Saucedo APRN [address] [place] [address] [address] [place] [address] Referring Physician 02/26/25 Jeannie Mcmillan, RN [facility]TRANSPLANT ADMINISTRATION [address] [place] [address] Registered Nurse Transplant Surgery 03/08/25 [place] [address] Registered Nurse Transplant Surgery 03/08/25 documented as of this encounter
--- OUTSIDE RECORDS SUMMARY | 2025-05-01 11:47 | XMS_ITS | Encounter Summary ---
Author Organization Healthcare Address [address] [place] [address] Care Team Providers Care Humidifier Operator Name Role Phone Isabella Saucedo Phnog MOUNTAIN SERVICES MANAGER Unavailable [phone] Jeannie Mcmillan RN Unavailable [phone] Ebony Shoemaker Unavailable [phone] Pcp, No Primary Care Provider Unavailabl e Encounter Details Date Type Department Care Team (Late st Contact Info) Description 03/20/2025 Orders Only External Location 800 [place] [address] Provider, External Social History Tobacco Use Types [...] documented as of this encounter Care Teams Humidifier Operator Relationship Specialty Start Date End Date Pcp, No [address] [place] [address] PCP - General Family Medicine 03/20/25 Isabella Saucedo APRN [address] [place] [address] [address] [place] [address] Referring Physician 02/26/25 Jeannie Mcmillan, RN CH-TRANSPLANT ADMINISTRATION [address] [place] [address] Registered Nurse Transplant Surgery 03/08/25 [place] [address] Registered Nurse Transplant Surgery 03/08/25 documented as of this encounter
--- OUTSIDE RECORDS SUMMARY | 2025-05-01 11:48 | XMS_ITS | Clinical Summary ---
Author Organization [facility] Address [address] [facility] [address] [place] [id number] Phone Care Team Providers Care Occupational Health Specialist Name Role Phone Leander RIOS, [facility] Conditions or Problems Problem Name Problem Code Onset Date Status Entry Date Provider Comment Standard Description Annotate FOLLOW-UP EXAMINATION FOLLOWING OTHER SURGERY Z09 (ICD-10-CM) 10/20 Active 10/20 Emily Kern MA Encounter for follow-up examination after completed treatment for conditions other than malignant neoplasm BACK PAIN, LUMBAR, WITH RADICULOPATHY [id number] (SNOMED CT) Active Emily Kern MA Lumbar radiculopathy Medications Medication Instructions Start Date Stop Date Generic Name [facility] Provider MELOXICAM 15 MG TABS 1 daily Non-[place] 8 MELOXICAM [id number] Emily Kern MA METOPROLOL TARTRATE 25 MG TABS 1 daily Non-[place] 8 METOPROLOL TARTRATE [id number] Emily Wilsonriccardo WILL PRAVASTATIN SODIUM 40 MG TABS 1 daily Non-[place] 8 PRAVASTATIN SODIUM [id number] Emily Wilsonriccardo WILL PLAVIX 75 MG TABS 1 daily Non-[place] 8 CLOPIDOGREL BISULFATE 96993626556 Emily Wilsonriccardo WILL LISINOPRIL 5 MG TABS 1 daily Non-[place] 8 LISINOPRIL 79376481776 Emily Wilsonriccardo WILL ASPIRIN ADULT LOW STRENGTH 81 MG TBEC 1 daily Non-[place] 8 ASPIRIN 95204135840 Emilynathaniel Kern MA ALPRAZOLAM 1 MG TABS 1 qhs Non-[place] 8 ALPRAZOLAM [id number] Emily Kern MA HYDROCODONE-BRENNAN TAMINOPHEN 10-650 MG ORAL TABLET 1 qid Non-[place] 8 HYDROCODONE-AC ETAMINOPHEN [id number] Emily Kern MA GABAPENTIN 600 MG TABS 2 q morning & 3 q evening [facility] 8 GABAPENTIN [phone] Emily Kern MA RANEXA 500 MG ORAL TABLET EXTENDED RELEASE 12 HOUR 1 bid [facility] 8 RANOLAZINE [phone] Emily Kern MA Medications Administered No information [...]
--- OUTSIDE RECORDS SUMMARY | 2025-05-01 11:48 | XMS_ITS | Encounter Summary ---
Author Organization Healthcare Address [address] [place] [address] Care Team Providers Care Pre K Lead Teacher Name Role Phone Isabella Saucedo COMPUTER SYSTEM VALIDATION SPECIALIST Unavailable [phone] Jeannie Mcmillan RN Unavailable [phone] Ebony Shoemaker Unavailable [phone] Pcp, No Primary Care Provider Unavailabl e Rodney Gonzáles MD Unavailable [phone] Encounter Details Date Type Department Care Team (Late st Contact Info) Description 12/07/2024 Orders Only External Location [address] [place] [address] Provider, External Social History Tobacco Use Types [...] on filedocumented in this encounter Care Teams Pre K Lead Teacher Relationship Specialty Start Date End Date Pcp, No [address] [place] [address] PCP - General Family Medicine 03/20/25 Isabella Saucedo APRN 1210 [facility] [address] [place] [address] Referring Physician 02/26/25 Jeannie Mcmillan, RN CH-TRANSPLANT ADMINISTRATION [address] [place] [address] Registered Nurse Transplant Surgery 03/08/25 [place] [address] Registered Nurse Transplant Surgery 03/08/25 Rodney Gonzáles MD 1210 [facility] [address] [place] [address] Medical Oncologist 04/10/25 documented as of this encounter
--- OUTSIDE RECORDS SUMMARY | 2025-05-01 11:48 | XMS_ITS | Encounter Summary ---
Author Organization [facility] Address [address] [place] [address] Care Team Providers Care Gantry Crane Operator Name Role Phone Isabella Saucedo Phong MERRY GO ROUND OPERATOR Unavailable [phone] Jeannie Mcmillan RN Unavailable [phone] Ebony Shoemaker Unavailable [phone] Reason for Referral * Consultation (Routine) - Authorized Specialty Diagnoses / Procedures Referred By Contac t Referred To Contact Medical Oncology Diagnoses Elevated AFP Liver lesion Peter Do MD [address] [address] Phone: tel: fax: Referral ID Status Reason Start Date Expiration Date Visits Requested Visits Authorized [id number] Authorized Consult and Treat 03/16/2025 09/15/2026 1 1 Reason for Visit * Reason Comments Txp Surgical Follow-up Ernestina: Tumor Boar d Discussion 03/16/25 Encounter Details Date Type Department Care Team (Late st Contact Info) Description 03/16/2025 Telephone [facility] [address] [address] [place] [address] Txp Surgical Follow-up (Ernestina: Tumor [...] documented as of this encounter Care Teams Gantry Crane Operator Relationship Specialty Start Date End Date Isabella Saucedo APRN [address] [place] [address] [place] [address] Referring Physician 02/26/25 Jeannie Mcmillan, RN CH-TRANSPLANT ADMINISTRATION [address] [place], [place] [address] Registered Nurse Transplant Surgery 03/08/25 Ebony Shoemaker [place] [id number] Registered Nurse Transplant Surgery 03/08/25 documented as of this encounter
--- OUTSIDE RECORDS SUMMARY | 2025-05-01 11:48 | XMS_ITS | Clinical Summary ---
Author Organization [facility] Address [facility] [place] [address] Care Team Providers Care Prefitter Doors Name Role Phone Cr Resendez MD Primary Care Provider [phone] Source Comments This information has been disclosed [...] therelease of HIV test results or diagnoses. [id number] Health Allergies Active Allergy Reactions Criticality [...] PM EDT Active naloxone (NARCAN) 4 mg/actuation [place] Apply 1 spray in one nostril if [...] by [facility]G 6 mo later at [facility] with grafts 2009 Social History Tobacco Use Types Packs/Day Years Used Date Smoking Tobacco: Some Days Cigarettes Passive Smoke Exposure: Current Tobacco Cessation:Ready to Q uit: Not Asked; Counseling Given: Not Answered Utilities Answer Date Recorded In the past 12 months has th e [employer], gas, oil, or water [email or web address] threatened to shut off services in your [...] any time in the past 12 m [facility], were you homeless or living in a residential (including now)? Patient declined 12/07/2024 Sex and [...] 05/08/2019, 07/18/2012 Medical Devices Implanted Type Area Admission Nurse Device Identifier Shelf Expiration Date Model / Serial / Lot Cage Spnl 6mm 8d Sm Eit Crv Intrbd Fs Strl Lf - [id number] Implanted:Qty: 1 on 12/11/2024 by Nayan Mayo MD at [facility] Cage N/A: Spine Cervical DEPU[employer] SPINE 02/26/2026 [id number] / / Graft Bn Bn Fbr 1cc Algrf Frzdr Pliafx [facility] - [id number] Implanted:Qty: 1 on 12/11/2024 by Nayan Mayo MD at [facility] Graft N/A: Spine Cervical LIFE NET 02/21/2028 [id number] / [id number] / Icd ICD [employer] D233 / / Description:[place] RA: [id number] 200M RV: [id number] NOT MR CONDITIONAL OF 12/07/2024 - 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 SCS Plate [place] Titanium 14 Mm Prebent L12 Mm X W16 Mm X H2.5 Mm Spine Cervical Anterior 1 Level Nonsterile - [id number] Implanted:Qty: 1 on 12/11/2024 by Nayan Mayo MD at [facility] Plate N/A: Spine Cervical DEPU[employer] SPINE [id number] 12 / / Screw [place] Titanium L16 Mm Od4 Mm Spine Cervical Anterior Variable Self Drill Nonsterile - [id number] Implanted:Qty: 4 on 12/11/2024 by Nayan Mayo MD at [facility] Screw N/A: Spine Cervical DEPUY SPINE -0 16 / / Procedures Procedure Name Priority Date/Time Associated Diagnosis Comments RENAL FUNCTION PANEL W/EGFR Routine 12/14/2024 7:00 AM EDT from Last 3 Months or Most Recently Relevant to Health Maintenance Results * (ABNORMAL) Renal Function Panel w/EGFR (12/14/2024 7:00 AM EDT) Sodium 136 133 - 146 mmol/L 12/14/2024 7:50 AM EDT [facility] Potassium 3.9 3.5 - 5.3 mmol/L 12/14/2024 7:50 AM EDT [facility] Chloride 102 98 - 110 mmol/L 12/14/2024 7:50 AM EDT [facility] CO2 27 21 - 33 mmol/L 12/14/2024 7:50 AM EDT [facility] Anion Gap 7 3 - 16 mmol/L 12/14/2024 7:50 AM EDT [facility] BUN 19 7 - 25 mg/dL 12/14/2024 7:50 AM EDT [facility] Creatinine 0.66 0.60 - 1.30 mg/dL 12/14/2024 7:50 AM EDT [facility] Glucose 126(H) 70 - 100 mg/dL 12/14/2024 7:50 AM EDT [facility] Calcium 8.3(L) 8.6 - 10.3 mg/dL 12/14/2024 7:50 AM EDT [facility] Phosphorus 2.7 2.1 - 4.5 mg/dL 12/14/2024 7:50 AM EDT [facility] Albumin 2.7(L) 3.5 - 5.7 g/dL 12/14/2024 7:50 AM EDT [facility] Osmolality, Calculated 286 278 - 305 mOsm/kg 12/14/2024 7:50 AM EDT [facility] EGFR >90 12/14/2024 7:50 AM EDT [facility] Comment: As of 2021, the [...] BLOOD ORDERABLES nal Result Performing Organization Address City/State/[facility] Co de Phone Number [facility] [address] from Last 3 Months or Most Recently Relevant to Health Maintenance Insurance MEDICARE A AND B [place] D[place] Advance Directives For more information, please contact: [phone] * Full Code (Latest Code Status on File) Date Activated Date Inactivated Comments 12/07/2024 12:02 AM 12/14/2024 8:22 PM Care Teams Prefitter Doors Relationship Specialty Start Date End Date Cr Resendez MD [address] [place] [address] TRISTIAN MARTINEZ [id number] PCP - General Family Medicine 12/07/24
--- OUTSIDE RECORDS SUMMARY | 2025-05-01 11:48 | XMS_ITS | Clinical Summary ---
Author Organization Healthcare Address [address] [place] [address] Care Team Providers Care Rn Oncology Name Role Phone Isabella Saucedo Phong AIR BREAKER OPERATOR Unavailable [phone] Jeannie Mcmillan RN Unavailable [phone] Ebony Shoemaker Unavailable [phone] Pcp, No Primary Care Provider Unavailabl e Rodney Gonzáles MD Unavailable [phone] Allergies Active Allergy Reactions Criticality Noted [...] Type Department Care Team Description 04/06/[address] [facility] [address] [place] [address] Ebony Shoemaker Txp Surgical Follow-up 03/20/2025 4:39 PM EDT - 03/21/2025 6:51 PM EDT Hospital Encounter [facility] H Inpatient [address] [place] [address] Saleh, Clotilde EMD Deuce Patricia Therese A, MD Sayers, Anne E, MD Epigastric pain (Primary Dx); Hepatocellular carcinoma; Alcoholic cirrhosis of liver without ascites (CMS/HCC) Discharge Disposition: Home or Self Care 03/20/2025 Travel 03/20/2025 Orders Only External Location [address] [place] [address] Provider, External 03/20/2025 Orders Only External Location [address] [place] [address] Provider, External 03/20/2025 Orders Only External Location [address] [place] [address] Provider, External 03/16/[address] [facility] [address] [place] [phone] Ebony Shoemaker Txp Surgical Follow-up (Ernestina: Tumor Board Discussion 03/16/25) 03/14/2025 11:20 AM EDT - 03/14/2025 11:59 PM EDT Hospital Encounter [facility] [address] [place] [address] Elevated AFP; Liver lesion; Hepatic cirrhosis, unspecified hepatic cirrhosis type, unspecified whether ascites present (CMS/HCC) Discharge Disposition: Home or Self Care 03/14/2025 10:00 AM EDT Office Visit [facility] [place] [address] [address] Peter Do MD HCC (hepatocellular carcinoma) (Primary Dx) 03/14/[address] [facility] [address] [place] [phone] Ebony Shoemaker Liver lesion (Primary Dx); Elevated AFP; Hepatic cirrhosis, unspecified hepatic cirrhosis type, unspecified whether ascites present (CMS/HCC) 03/14/2025 Travel 03/10/2025 Travel 03/07/2025 Travel 03/06/[address] [facility] [place] [address] [address] Cici Ramírez 03/06/[address] [facility] [address] [place] [address] Angelita Reeves Appointment 03/05/[address] [facility] [address] [place] [address] Angelita Reeves Appointment 02/26/[address] 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 [address] [place] [address] Isabella Saucedo APRN Elevated alpha fetoprotein (Primary Dx); Liver tumor 02/09/2025 11:02 AM EDT - 02/09/2025 11:59 PM EDT Hospital Encounter [facility] [address] [place] [address] Abnormality of alphafetoprotein; Other specified [...] Last Done Comments [facility]-/Child/Adol SDOH Screenings 1958 [id number] Vaccine (#1) 1963 [facility]- SDOH Screenings 1976 [...] LAB COAGULATION METHOD 03/21/2025 7:00 AM EDT [facility] INR 1.1 0.9 - 1.1 LAB COAGULATION METHOD 03/21/2025 7:00 AM EDT [facility] Blood Venous blood specimen / Unknown Venipuncture / Unknown 03/21/2025 6:32 AM EDT 03/21/2025 6:43 AM EDT Narrative [facility] - 03/21/2025 7:00 AM EDT OPTIMAL INR RANGES FOR PATIENT ON ORAL ANTICOAGULANT THERAPY Prevention of venous thromboembolism INR 2.0 to 3.0 In patients with heart disease: Atrial fibrillation INR 2.0 to 3.0 Valvular heart disease INR 2.0 to 3.0 Tissue heart valves INR 2.0 to 3.0 Mechanical prosthetic valves INR 2.5 to 3.5 Prevention of recurrent NE INR 2.5 to 3.5 us Leelee Tripathi MD LAB BLOOD ORDERABLE S Final Result [facility] [address] [place] [address] * (ABNORMAL) CBC and Differential (03/21/2025 6:32 AM EDT) Only the most recent of2 resultswithin the time period is included. WBC Count 6.12 3.70 - 10.30 10*3/uL LAB HEMATOLOGY METHOD 03/21/2025 6:58 AM EDT [facility] RBC Count 4.62 4.60 - 6.10 10*6/uL LAB HEMATOLOGY METHOD 03/21/2025 6:58 AM EDT [facility] HGB 15.2 13.7 - 17.5 g/dL LAB HEMATOLOGY METHOD 03/21/2025 6:58 AM EDT [facility] HCT 45.4 40.0 - 51.0 % LAB HEMATOLOGY METHOD 03/21/2025 6:58 AM EDT [facility] Platelet Count 82(L) 155 - 369 10*3/uL LAB HEMATOLOGY METHOD 03/21/2025 6:58 AM EDT [facility] MCV 98 79 - 98 fL LAB HEMATOLOGY METHOD 03/21/2025 6:58 AM EDT [facility] MCH 32.9(H) 26.0 - 32.0 pg LAB HEMATOLOGY METHOD 03/21/2025 6:58 AM EDT [facility] MCHC 33.5 30.7 - 35.5 g/dL LAB HEMATOLOGY METHOD 03/21/2025 6:58 AM EDT [facility] RDW 16.8(H) 11.5 - 14.5 % LAB HEMATOLOGY METHOD 03/21/2025 6:58 AM EDT [facility] MPV 12.2 8.8 - 12.5 fL LAB HEMATOLOGY METHOD 03/21/2025 6:58 AM EDT [facility] nRBC 0.0 <=0.0 per 100 WBCs LAB HEMATOLOGY METHOD 03/21/2025 6:58 AM EDT [facility] Differential Type Automated LAB HEMATOLOGY METHOD 03/21/2025 6:58 AM EDT [facility] Neutrophils % 55 % LAB HEMATOLOGY METHOD 03/21/2025 6:58 AM EDT [facility] Lymphocytes % 24 % LAB HEMATOLOGY METHOD 03/21/2025 6:58 AM EDT [facility] Monocytes % 17 % LAB HEMATOLOGY METHOD 03/21/2025 6:58 AM EDT [facility] Eosinophils % 2 % LAB HEMATOLOGY METHOD 03/21/2025 6:58 AM EDT [facility] Basophils % 1 % LAB HEMATOLOGY METHOD 03/21/2025 6:58 AM EDT [facility] Immature Granulocytes % 1 % LAB HEMATOLOGY METHOD 03/21/2025 6:58 AM EDT [facility] Neutrophils Absolute 3.46 1.60 - 6.10 10*3/uL LAB HEMATOLOGY METHOD 03/21/2025 6:58 AM EDT [facility] Lymphocytes Absolute 1.45 1.20 - 3.90 10*3/uL LAB HEMATOLOGY METHOD 03/21/2025 6:58 AM EDT [facility] Monocytes Absolute 1.03(H) 0.30 - 0.90 10*3/uL LAB HEMATOLOGY METHOD 03/21/2025 6:58 AM EDT [facility] Eosinophils Absolute 0.11 0.00 - 0.50 10*3/uL LAB HEMATOLOGY METHOD 03/21/2025 6:58 AM EDT [facility] Basophils Absolute 0.04 0.00 - 0.10 10*3/uL LAB HEMATOLOGY METHOD 03/21/2025 6:58 AM EDT [facility] Immature Granulocytes Absolute 0.03 0.00 - 0.06 10*3/uL LAB HEMATOLOGY METHOD 03/21/2025 6:58 AM EDT [facility] Blood Venous blood specimen / Unknown Venipuncture / Unknown 03/21/2025 6:32 AM EDT 03/21/2025 6:43 AM EDT Narrative [facility] - 03/21/2025 6:58 AM EDT Therapeutic decision making should be based on absolute values, rather than percentages. us Leelee Tripathi MD LAB BLOOD ORDERABLE S Final Result [facility] [address] [place] [address] * (ABNORMAL) Comprehensive metabolic panel (03/21/2025 6:32 AM EDT) Only the most recent of3 resultswithin the time period is included. Glucose, Plasma 107(H) 74 - 99 mg/dL 03/21/2025 7:11 AM EDT [facility] BUN, Plasma 12 8 - 23 mg/dL 03/21/2025 7:11 AM EDT [facility] Creatinine, Plasma 0.77 0.70 - 1.20 mg/dL 03/21/2025 7:11 AM EDT [facility] BUN/Creatinine Ratio 16 03/21/2025 7:11 AM EDT [facility] Sodium, Plasma 139 136 - 145 mmol/L 03/21/2025 7:11 AM EDT [facility] Potassium, Plasma 4.6 3.6 - 4.9 mmol/L 03/21/2025 7:11 AM EDT [facility] Comment:Hemolyzed, result ma y be falsely increased. Chloride, Plasma 105 97 - 107 mmol/L 03/21/2025 7:11 AM EDT [facility] CO2, Plasma 23 22 - 29 mmol/L 03/21/2025 7:11 AM EDT [facility] Anion Gap 11 6 - 16 mmol/L 03/21/2025 7:11 AM EDT [facility] Total Calcium, Plasma 9.4 8.9 - 10.2 mg/dL 03/21/2025 7:11 AM EDT [facility] Total Protein 7.0 6.3 - 7.9 g/dL 03/21/2025 7:11 AM EDT [facility] Albumin, Plasma 3.6 3.5 - 5.2 g/dL 03/21/2025 7:11 AM EDT [facility] AST, Plasma 621(H) 10 - 50 U/L 03/21/2025 7:11 AM EDT [facility] Comment:Hemolyzed, result ma y be falsely increased. ALT, Plasma 48 10 - 50 U/L 03/21/2025 7:11 AM EDT [facility] Alkaline Phosphatase, Plasma 232(H) 40 - 115 U/L 03/21/2025 7:11 AM EDT [facility] Total Bilirubin, Plasma 0.6 0.2 - 1.1 mg/dL 03/21/2025 7:11 AM EDT [facility] eGFRcr 98.7 mL/min/1.7 3m*2 03/21/2025 7:11 AM EDT [facility] Comment:Reported eGFRcr in m L/min/1.73m2 is based the CKD-EPI 2020 equation that does not use a race coefficient. Blood Venous blood specimen / Unknown Venipuncture / Unknown 03/21/2025 6:32 AM EDT 03/21/2025 6:43 AM EDT Leelee Tripathi MD LAB BLOOD ORDERABLE S Final Result Performing Organization Address City/[facility]/ZIP Co de Phone Number [facility] [address] [place] [address] * Troponin T, High Sensitivity, 2 Hour, Plasma (03/20/2025 10:54 PM EDT) Troponin T, High Sensitivity, 2 Hour 10 <19 ng/L 03/20/2025 11:31 PM EDT [facility] Blood Venous blood specimen / Unknown Venipuncture / Unknown 03/20/2025 10:54 PM EDT 03/20/2025 11:04 PM EDT Leelee Tripathi MD LAB BLOOD ORDERABLE S Final Result Performing Organization Address City/[facility] Co de Phone Number [facility] [address] [place] [address] * ED HIV 1/2 Antibody/Antigen Screen w/Reflex to HIV 1/2 Differentiation (03/20/2025 6:51 PM EDT) [facility] HIV 1 & 2 Antibody/Antigen Screen Non Reactive Non Reactive 03/20/2025 8:05 PM EDT [facility] Comment:Screening for HIV 1 & 2 antibodies, and P24 antigen is NONREACTIVE. No confirmatory testing is required. Blood Venous blood specimen / Unknown Venipuncture / Unknown 03/20/2025 6:51 PM EDT 03/20/2025 7:09 PM EDT Dedra HURTADO LAB BLOOD ORDERABLES Courtney l Result Performing Organization Address City/[facility]/ZIP Co de Phone Number [facility] [address] [place] [address] * Troponin now and 120 min (03/20/2025 6:51 PM EDT) Troponin T, High Sensitivity, 0 Hour 9 <19 ng/L 03/20/2025 7:35 PM EDT [facility] Blood Venous blood specimen / Unknown Venipuncture / Unknown 03/20/2025 6:51 PM EDT 03/20/2025 7:09 PM EDT Result [facility] Dedra A Rebsamen PA LAB BLOOD ORDERABLES Courtney l Result Performing Organization Address City/[facility] Co de Phone Number [facility] [address] [place] [address] * Lactic acid, venous (03/20/2025 6:51 PM EDT) Pathologist [facility] Lactate, Venous, Whole Blood 1.7 0.5 - 2.2 mmol/L LAB HEMATOLOGY METHOD 03/20/2025 7:12 PM EDT [facility] Blood Venous blood specimen / Unknown Venipuncture / Unknown 03/20/2025 6:51 PM EDT 03/20/2025 7:08 PM EDT Result [facility] Dedra [email or web address] [place] LAB BLOOD ORDERABLES Courtney l Result Performing Organization Address [facility] Co de Phone Number [facility] [address] [place] [address] * Hepatitis C Antibody - ED (03/20/2025 6:51 PM EDT) Pathologist [facility] Hepatitis C Antibody Negative Negative 03/20/2025 8:01 PM EDT [facility] Blood Venous blood specimen / Unknown Venipuncture / Unknown 03/20/2025 6:51 PM EDT 03/20/2025 7:09 PM EDT Result [facility] Dedra Driscoll [email or web address] [place] LAB BLOOD ORDERABLES Courtney l Result Performing Organization Address City/[facility] Co de Phone Number [facility] [address] [place] [address] * APTT (03/20/2025 6:51 PM EDT) Pathologist [facility] aPTT 31 25 - 35 sec 03/20/2025 7:25 PM EDT [facility] Blood Venous blood specimen / Unknown Venipuncture / Unknown 03/20/2025 6:51 PM EDT 03/20/2025 7:08 PM EDT Dedra A One Month LAB BLOOD ORDERABLES Courtney l Result Performing Organization Address [facility] Co de Phone Number [facility] [address] [place] [address] * C-Reactive protein (03/20/2025 6:51 PM EDT) [facility] CRP, Plasma 5.2 <=8.0 mg/L 03/20/2025 7:35 PM EDT [facility] Blood Venous blood specimen / Unknown Venipuncture / Unknown 03/20/2025 6:51 PM EDT 03/20/2025 7:09 PM EDT Narrative [facility] - 03/20/2025 7:35 PM EDT This CRP test is appropriate for assessment of infection, systemic inflammation and/or tissue injury. To assess cardiovascular disease risk order high sensitivity CRP (CRPH). us [employer] LAB BLOOD ORDERABLES Courtney l Result Performing Organization Address [facility] Co de Phone Number [facility] [address] [place] [address] * Lipase (03/20/2025 6:51 PM EDT) [facility] Lipase, Plasma 19 19 - 63 U/L 03/20/2025 7:35 PM EDT [facility] Blood Venous blood specimen / Unknown Venipuncture / Unknown 03/20/2025 6:51 PM EDT 03/20/2025 7:09 PM EDT us Dedra A One Month LAB BLOOD ORDERABLES Courtney l Result Performing Organization Address City/[facility] Co de Phone Number [facility] [address] [place] [address] * EKG now - STAT (adult) (03/20/2025 5:31 PM EDT) [facility] EKG DIAGNOSIS CLASS Abnormal MUSE ECG Ventricular Rate 60 BPM MUSE ECG Atrial Rate 60 BPM MUSE ECG TN Interval 176 ms MUSE ECG QRSD Interval 86 ms MUSE ECG QT Interval 422 ms MUSE ECG QTC Interval 422 ms MUSE ECG P [place] 53 degrees MUSE ECG R [place] -37 degrees MUSE ECG T Wave [place] 80 degrees MUSE ECG Diagnosis Atrial-paced rhythm MUSE ECG Diagnosis Left axis deviation MUSE ECG Diagnosis T wave abnormality, consider anterior ischemia MUSE ECG Diagnosis Abnormal ECG MUSE ECG Diagnosis MUSE ECG Diagnosis Confirmed by J Carlos Campbell ([id number]) on 03/20/2025 5:41:58 PM MUSE ECG 03/20/2025 [...] 1,098.0(H) <10.0 ng/mL 03/14/2025 10:22 AM EDT [facility] Blood Venous blood specimen / Unknown Venipuncture / Unknown 03/14/2025 8:38 AM EDT 03/14/2025 9:03 AM EDT Narrative [facility] - 03/14/2025 10:22 AM EDT Performed by Ricky electrochemiluminescent immunoassay which is traceable to the 1st AFP IRP WHO Reference standard 72/255. Results obtained with different test methods or kits cannot be used interchangeably. Peter Do MD LAB BLOOD ORDERABLES Final Result Performing Organization Address City/[facility]/ZIP Co de Phone Number [facility] [address] [place] [address] * Cancer Antigen, GI (CA 19.9) (03/14/2025 8:38 AM EDT) CA 19.9 26.5 <36 U/mL 03/14/2025 10:22 AM EDT [facility] Blood Venous blood specimen / Unknown Venipuncture / Unknown 03/14/2025 8:38 AM EDT 03/14/2025 9:03 AM EDT Narrative [facility] - 03/14/2025 10:22 AM EDT Performed by Ricky electrochemiluminescent immunoassay. Results obtained with different test methods or kits cannot be used interchangeably. Peter Do MD LAB BLOOD ORDERABLES Final Result Performing Organization Address City/[facility]/ZIP Co de Phone Number [facility] [address] [place] [address] * (ABNORMAL) CBC w/o differential (03/14/2025 8:38 AM EDT) WBC Count 5.56 3.70 - 10.30 10*3/uL LAB HEMATOLOGY METHOD 03/14/2025 9:51 AM EDT [facility] RBC Count 4.98 4.60 - 6.10 10*6/uL LAB HEMATOLOGY METHOD 03/14/2025 9:51 AM EDT [facility] HGB 15.9 13.7 - 17.5 g/dL LAB HEMATOLOGY METHOD 03/14/2025 9:51 AM EDT [facility] HCT 48.7 40.0 - 51.0 % LAB HEMATOLOGY METHOD 03/14/2025 9:51 AM EDT [facility] Platelet Count 96(L) 155 - 369 10*3/uL LAB HEMATOLOGY METHOD 03/14/2025 9:51 AM EDT [facility] MCV 98 79 - 98 fL LAB HEMATOLOGY METHOD 03/14/2025 9:51 AM EDT [facility] MCH 31.9 26.0 - 32.0 pg LAB HEMATOLOGY METHOD 03/14/2025 9:51 AM EDT [facility] MCHC 32.6 30.7 - 35.5 g/dL LAB HEMATOLOGY METHOD 03/14/2025 9:51 AM EDT [facility] RDW 17.2(H) 11.5 - 14.5 % LAB HEMATOLOGY METHOD 03/14/2025 9:51 AM EDT [facility] MPV 11.0 8.8 - 12.5 fL LAB HEMATOLOGY METHOD 03/14/2025 9:51 AM EDT [facility] nRBC 0.0 <=0.0 per 100 WBCs LAB HEMATOLOGY METHOD 03/14/2025 9:51 AM EDT [facility] Blood Venous blood specimen / Unknown Venipuncture / Unknown 03/14/2025 8:38 AM EDT 03/14/2025 9:03 AM EDT us Peter Do MD LAB BLOOD ORDERABLES Final Result [facility] [address] [place] [address] * (ABNORMAL) CEA, Serum (03/14/2025 8:38 AM EDT) CEA, Serum 5.2(H) <4.0 ng/mL 03/14/2025 10:22 AM EDT [facility] Blood Venous blood specimen / Unknown Venipuncture / Unknown 03/14/2025 8:38 AM EDT 03/14/2025 9:03 AM EDT Narrative [facility] - 03/14/2025 10:22 AM EDT Normal range for smokers: < 5.5 ng/ml Normal range for non-smokers: <=4.0 ng/ml Performed by Ricky electrochemiluminescent immunoassay. Results obtained with different test methods or kits cannot be used interchangeably. us Peter Do MD LAB BLOOD ORDERABLES Final Result [facility] [address] [place] [address] * CT Abdomen w and wo IV [...] are consistent with and integrated into the [employer] [employer] the [employer] Liver Diseases [...] are consistent with and integrated into the [place] Associationfor the Study of Liver Diseases (AASLD) [...] MD on 02/09/2025 3:29 PM Isabella Saucedo AIR BREAKER OPERATOR IMG CT PROCEDURES Final Re sult from Last 3 Months Insurance [place]ICA[place] MEDICARE Advance Directives * Full Code (Latest Code Status on File) Date Activated Date Inactivated Comments 03/20/2025 7:46 PM 03/21/2025 8:56 PM Question Answer Comments I have reviewed the capacity from the link above and, if needed, have updated to appropriate status: Yes Care Teams Rn Oncology Relationship Specialty Start Date End Date Pcp, No [address] [place] [address] PCP - General Family Medicine 03/20/25 Isabella Saucedo APRN [address] [place] [address] Referring Physician 02/26/25 Jeannie Mcmillan, RN [facility] [address] [phone] Registered Nurse Transplant Surgery 03/08/25 [place] [address] Registered Nurse Transplant Surgery 03/08/25 Rodney Gonzáles MD 1210 [facility] [address] [place] [address] Medical Oncologist 04/10/25
--- OUTSIDE RECORDS SUMMARY | 2025-05-01 11:48 | XMS_ITS | Encounter Summary ---
Author Organization [place] [address] Care Team Providers Care Leadership Program Internship Name Role Phone Jan Sin MD Unavailable [phone] Macario Pryor MD Unavailable Unavailabl e Cr Resendez MD Primary Care Provider [phone] Reason for Visit * Reason Onset Date Comments Other 01/25/2025 insurance compan y called asking if office can watch for active patient verification form was rec'd. Please advise. Encounter Details Date Type Department Care Team (Late st Contact Info) Description 01/25/2025 Telephone ABDULLAHI RODRIGUEZ [address] [place] [address] [place] [address] Cr Resendez MD [address] [place] [address] [place] [address] Other (insurance company called asking if [...] documented as of this encounter Care Teams Leadership Program Internship Relationship Specialty Start Date End Date Macario Pryor MD [address] [place] [address] [place] [address] PCP - Hematology/Oncology Internal Medicine-Medical Oncology 11/12/15 Cr Resendez MD [address] [place] [address] [place] [address] PCP - General Family Medicine 11/24/21 Jan Sin MD [address] [place] [address] [place] [id number] Internal Medicine-Cardiovascul ar Disease 08/28/14 documented as of this encounter
--- OUTSIDE RECORDS SUMMARY | 2025-05-01 11:48 | XMS_ITS | Encounter Summary ---
Author Organization Healthcare Address [address] [place] [address] Care Team Providers Care Solar Energy Technician Name Role Phone Isabella Saucedo ELEMENTARY SPANISH TEACHER Unavailable [phone] Jeannie Mcmillan RN Unavailable [phone] [address] Shoemaker Unavailable [phone] Pcp, No Primary Care Provider Unavailabl e Rodney Gonzáles MD Unavailable [phone] Encounter Details Date Type Department Care Team (Late st Contact Info) Description 01/04/2025 Orders Only External Location [address] [place] [address] Provider, External Social History Tobacco Use Types [...] on filedocumented in this encounter Care Teams Solar Energy Technician Relationship Specialty Start Date End Date Pcp, No [address] [place] [address] PCP - General Family Medicine 03/20/25 Isabella Saucedo APRN 1210 [facility] [address] [place] [address] Referring Physician 02/26/25 Jeannie Mcmillan, RN [facility] [address] [place], [place] [phone] Registered Nurse Transplant Surgery 03/08/25 Ebony Sho[address] [place] [phone] Registered Nurse Transplant Surgery 03/08/25 Rodney Gonzáles MD 1210 [facility] [address] [place], [place] [address] Medical Oncologist 04/10/25 documented as of this encounter
--- OUTSIDE RECORDS SUMMARY | 2025-05-01 11:48 | XMS_ITS | Encounter Summary ---
Author Organization Healthcare Address [address] [place] [address] Care Team Providers Care Can Solderer Name Role Phone Isabella Saucedo FABRICATION LEAD Unavailable [phone] Jeannie Mcmillan RN Unavailable [phone] [address] Shoemaker Unavailable [phone] Pcp, No Primary Care Provider Unavailabl e Rodney Gonzáles MD Unavailable [phone] Encounter Details Date Type Department Care Team (Late st Contact Info) Description 01/12/2025 Orders Only External Location [address] [place] [address] Provider, External Social History Tobacco Use Types [...] on filedocumented in this encounter Care Teams Can Solderer Relationship Specialty Start Date End Date Pcp, No [address] [place] [address] PCP - General Family Medicine 03/20/25 Isabella Saucedo APRN 1210 [facility] [address] [place] [address] Referring Physician 02/26/25 Jeannie Mcmillan, RN [facility] [address] [place], [place] [id number] Registered Nurse Transplant Surgery 03/08/25 Ebony Shoemaker [place] [phone] Registered Nurse Transplant Surgery 03/08/25 Rodney Gonzáles MD 1210 [facility] [address] [place] [address] Medical Oncologist 04/10/25 documented as of this encounter
--- OUTSIDE RECORDS SUMMARY | 2025-05-01 11:48 | XMS_ITS | Encounter Summary ---
Author [place] [address] Care Team Providers Care Airport Operations Officer Name Role Phone Jan Sin MD Unavailable [phone] Macario Pryor MD Unavailable Unavailabl e Cr Resendez MD Primary Care Provider [phone] Encounter Details Date Type Department Care Team (Latest Contact Info) Description 04/24/2025 Results Follow-Up SEP Luis [address] [place] [address] Cr Resendez MD [address] [place] [address] [place] [address] HEMOGLOBIN A1C, COMPREHENSIVE METABOLIC PANEL, CBC [...] were little bit elevated but unchanged [facility]. A1c was slightly elevated in the [...] documented as of this encounter Care Teams Airport Operations Officer Relationship Specialty Start Date End Date Macario Pryor MD [address] [place] [address] [place] [address] PCP - Hematology/Oncology Internal Medicine-Medical Oncology 11/12/15 Cr Resendez MD [address] [place] [address] [place] [address] PCP - General Family Medicine 11/24/21 Jan Sin MD [address] [place] [address] [place] [address] Internal Medicine-Cardiovascul ar Disease 08/28/14 documented as of this encounter
--- OUTSIDE RECORDS SUMMARY | 2025-05-01 11:48 | XMS_ITS | Encounter Summary ---
Author Organization [facility] Address [address] [place] [address] Care Team Providers Care Mission Commander Name Role Phone Lewis Isabella Darling FENCE MAKER Unavailable [phone] Jeannie Mcmillan RN Unavailable [phone] Ebony Shoemaker Unavailable [phone] Pcp, No Primary Care Provider Unavailabl e Rodney Gonzáles MD Unavailable [phone] Reason for Visit * Reason Comments Txp Surgical Follow-up Encounter Details Date Type Department Care Team (Late st Contact Info) Description 04/06/2025 Telephone [facility] [address] [facility] [address] [place] [address] Ebony Shoemaker [place] [phone] Txp Surgical Follow-up Social History Tobacco Use [...] AM EDT I spoke with Veronica the navigation officer with Isabella Kitchen' office. She said [...] chemo. He does not follow with a financial planning analyst per Ashley. Added to Dr. Do's discussion [...] documented as of this encounter Care Teams Mission Commander Relationship Specialty Start Date End Date Pcp, [address] [address] PCP - General Family Medicine 03/20/25 Isabella Saucedo APRN 1210 [facility] [address] [place] [address] Referring Physician 02/26/25 Jeannie Mcmillan, RN [facility] [address] [place] [address] Registered Nurse Transplant Surgery 03/08/25 [place] [address] Registered Nurse Transplant Surgery 03/08/25 Rodney Gonzáles MD 1210 [facility] [address] [place] [address] Medical Oncologist 04/10/25 documented as of this encounter
--- OUTSIDE RECORDS SUMMARY | 2025-05-01 11:48 | XMS_ITS | Encounter Summary ---
Author Organization [facility] Address [address] [place] [address] Care Team Providers Care Registry Np Name Role Phone Isabella Saucedo DEAF/HARD OF HEARING SPECIALIST Unavailable [phone] Reason for Visit * Reason Comments Appointment Encounter Details Date Type Department Care Team (Late st Contact Info) Description 03/05/2025 Telephone [facility] Transplant Center [address] [place] [address] Angelita Reeves [place] [phone] Appointment Social History Tobacco Use Types Packs/Day [...] to reach his , Ashley at at. [phone]. Called patient's , Ashley and offered to [...] on filedocumented in this encounter Care Teams Registry Np Relationship Specialty Start Date End Date Isabella Saucedo, DEAF/HARD OF HEARING SPECIALIST [address] [place] [address] [place] [address] Referring Physician 02/26/25 documented as of this encounter
--- OUTSIDE RECORDS SUMMARY | 2025-05-01 11:48 | XMS_ITS | Encounter Summary ---
Author Organization [facility] Address [address] [place] [address] Care Team Providers Care Director Custom Name Role Phone Isabella Saucedo ACID CHANGER Unavailable [phone] Reason for Referral * Consultation (Routine) - Pending Review Specialty Diagnoses / Procedures Referred By Contac t Referred To Contact Transplant Diagnoses End-stage liver disease (CMS/HCC) Haroon Cannon MD [address] [address] Phone: tel: fax: [facility] [place] [address] [address] Phone: tel: fax: Referral ID Status Reason Start Date Expiration Date Visits Requested Visits Authorized [id number] Pending Review Specialty Services Required 03/06/2025 09/05/2026 1 1 Reason for Visit * Reason Comments Appointment Encounter Details Date Type Department Care Team (Late st Contact Info) Description 03/06/2025 Telephone [facility] [place] [address] [address] [place] [address] Appointment Social History Tobacco Use [...] name and contact information. Invite sent to [employer] via text message. Called referring providers office, [...] disease documented in this encounter Care Teams Director Custom Relationship Specialty Start Date End Date Isabella Saucedo APRN [address] [place] [address] [place] [address] Referring Physician 02/26/25 documented as of this encounter
--- OUTSIDE RECORDS SUMMARY | 2025-05-01 11:48 | XMS_ITS | Encounter Summary ---
Author Organization Healthcare Address [address] [place] [address] Care Team Providers Care Director Operations Name Role Phone Isabella Saucedo APRN Unavailable [phone] Jeannie Mcmillan RN Unavailable [phone] Ebony Shoemaker Unavailable [phone] Pcp, No Primary Care Provider Unavailabl e Rodney Gonzáles MD Unavailable [phone] Reason for Referral * Consultation (Routine) - Authorized Specialty Diagnoses / Procedures Referred By Contarjun t Referred To Contact Hematology and Oncology Diagnoses Elevated alpha fetoprotein Liver tumor Isabella Saucedo APRN [address] [place] [address] [place] [address] Phone: tel: fax: Referral ID Status Reason Start Date Expiration Date Visits Requested Visits Authorized [id number] Authorized Specialty Services Required 02/20/2025 08/22/2026 1 1 Encounter Details Date Type Department Care Team (Late st Contact Info) Description 02/19/2025 Community [facility] Community Practice [address] [place] [address] Isabella Saucedo APRN [address] [place] [address] [place] [address] Elevated alpha fetoprotein (Primary Dx); Liver tumor [...] system documented in this encounter Care Teams Director Operations Relationship Specialty Start Date End Date Pcp, No [address] [place] [address] PCP - General Family Medicine 03/20/25 Isabella Saucedo APRN 1210 [facility] [address] [place] [address] Referring Physician 02/26/25 Jeannie Mcmillan, RN [facility]ISTR[facility] [address] [place] [address] Registered Nurse Transplant Surgery 03/08/25 Ebony Shoemaker [place] [phone] Registered Nurse Transplant Surgery 03/08/25 Rodney Gonzáles MD 1210 [facility] [address] [place] [address] Medical Oncologist 04/10/25 documented as of this encounter
--- OUTSIDE RECORDS SUMMARY | 2025-05-01 11:48 | XMS_ITS | Clinical Summary ---
Author Organization [facility] Address [address] [place] [address] Phone Care Team Providers Care Internal Medicine Specialist Name Role Phone Jan Sin MD Unavailable [phone] Macario Pryor MD [facility]available [facility] MD Primary Care Provider [phone] Allergies Active Allergy Reactions Criticality Noted Date [...] 25 Active nalOXone (NARCAN) 4 mg/actuation Nasl Eucha, Non-Aerosol 0.1 mL by Nasal route daily [...] the original. hillary stevens contracts signed 04/19/12 [facility]05/01/15 #[id number] [facility] 12/12/15 ,02/28/16 [id number],04/09/16 [id number], 11/27/16 [facility] 06/08/14,12/12/15, 10/02/16 Problem Noted Date Diagnosed Date Hepatocellular carcinoma 04/23/2025 Assessment & Plan (04/23/2025 9:20 AM EDT): Under treatment with GI and oncology at [facility]. On once monthly chemotherapy at this time. [...] (12/01/2022): Added automatically from request for surgery [id number] Mixed simple and mucopurulent chronic bronchitis 11/26/2022 Assessment & Plan (04/23/2025 9:20 AM EDT): Stable on Trelegy continue current regiment Assessment & Plan (12/21/2024 9:37 AM EDT): Orders: BASIC METABOLIC PANEL; Future Assessment & Plan (09/07/2024 10:49 AM EST): Orders: tncyqobpjch-ievqqiwsa-fzvfmags (TRELEGY ELLIPTA) 100-62.5-25 mcg Inhl Disk with [...] mo later at [facility] with // patent grafts 2009 Unspecified essential [...] 07/04/2015 S/P coronary angiogram 08/31/201407/04 Overview (08/31/2014): [facility] 10/15/2009 four out of four grafts, SVG [...] Type Department Care Team Description 04/26/2025 Refill [facility] [address] [place] [address] Cr Resendez MD Medication Refill 04/24/2025 Results Follow-Up ABDULLAHI [address] [place] [address] Cr Resendez MD HEMOGLOBIN A1C, COMPREHENSIVE METABOLIC PANEL, CBC WITH DIFF, Additional followed-up results: 3 04/23/2025 9:30 AM EDT Clinical Support ABDULLAHI [address] [place] [address] Elizabeth Reynoso, RN Encounter for support and coordination of transition of care (Primary Dx) 04/23/2025 9:00 AM EDT Office Visit ABDULLAHI [address] [place] [address] Cr Resendez MD Encounter for Medicare annual wellness exam (Primary Dx); Hepatocellular carcinoma (HCC); Chronic systolic congestive heart failure (HCC); Mixed simple and mucopurulent chronic bronchitis (HCC); Unspecified essential hypertension; Screening for prostate cancer; Bilateral impacted cerumen 04/19/2025 Patient Outreach [facility] [address] [place] [address] Cr Resendez MD Central Patient Navigator Outreach (AWV Questionnaire/) 03/26/2025 Refill SEP [address] [place], [place] [address] Cr Resendez MD Medication Refill 02/22/2025 Telephone SEP [address] [place] [address] Cr Resendez MD Paperwork/forms 02/20/2025 Refill SEP [address] [place] [address] Cr Resendez MD Medication Refill 02/12/2025 Refill SEP [address] [place] [address] Cr Resendez MD Medication Refill 01/29/2025 Refill SEP [address] [place] [address] Cr Resendez MD Medication Refill from Last [...] snare polypectomy; Surgeon: Poppy Quintero MD; Location: [facility] END[facility]; Service: Endoscopy UPPER GASTROINTESTINAL ENDOSCOPY 10/30/2015 N/A ESOPHAGOGASTRODUODENOSC OPY with biopsies; Surgeon: Poppy Quintero MD; Location: [facility]; Service: Endoscopy CARDIAC SURGERY 08/30/2018 - 08/29/2019 pace maker CORONARY ANGIOPLASTY WITH STENT PLACEMENT 01/04/2024 [facility] NECK SURGERY 12/06/2024 [facility] Medical History Medical History Date Comments COPD (chronic obstructive pu lmonary disease) ([facility]) Shortness of breath Blood circulation, collateral fe et and hands get cold since cabg CAD (coronary artery disease) Hypertension HI (myocardial infarction) ([facility]) 4 times Arthritis Headache(784.0) Neuromuscular disorder ([facility]) lennox k and left leg [...] reach an ideal body weight General No Sloo Lowry RMA Stay Tobacco Free Lifestyle No Solo Lowry RMA LDL Direct < 100 Result Component No Abdiaziz Cheng MD Medical Devices Implanted Type Area Portable Router Operator Device Identifier Shelf Expiration Date Model / Serial / Lot [employer] Vigilant ICD D233 / / [employer] Lead Lead 0675 / / St. [...] <200 mg/dL 04/23/2025 4:37 PM EDT PREFERRED [facility], [facility] Comment: < 200 Desirable 200 - 239 Borderline High >= 240 High Triglyceride 38 <150 mg/dL 04/23/2025 4:37 PM EDT [facility], [facility] Comment: < 150 Normal 150 - 199 Borderline High 200 - 499 High >= 500 Very High HDL 40 >=40 mg/dL 04/23/2025 4:37 PM EDT [facility], [facility] Comment: > 60 Optimal 40 - 60 Acceptable < 40 Low LDL Calculated 47 <100 mg/dL 04/23/2025 4:37 PM EDT [facility] [employer] [facility] Comment: < 100 Optimal 100 - 129 Near or above optimal 130 - 159 Borderline High 160 - 189 High >= 190 Very High The National Institutes of Health (NIH) equation is used for all lipid panels that report calculated LDL (LDL-C). Non-HDL-C Calculated 58 <=129 mg/dL 04/23/2025 4:37 PM EDT [facility] [employer] Comment: <130 Desirable 130-159 Above Desirable 160-189 Borderline High 190-219 High >= 220 Very High Fasting Specimen? Yes None 025 4:37 PM EDT [facility] [employer] Blood VENOUS BLOOD / Unknown Venipuncture / Unknown 04/23/2025 9:47 AM EDT 04/23/2025 9:47 AM EDT us Cr Resendez MD CHEMISTRY ORDERABLES Final Res ult [facility] [employer] [address] [facility] , [place] [address] * TSH REFLEX TO FT4 (04/23/2025 9:47 AM EDT) TSH Reflex 0.889 0.270 - 4.200 mcIU/mL 04/23/2025 4:37 PM ED[address] [facility] [employer] [facility] Blood VENOUS BLOOD / Unknown Venipuncture / Unknown 04/23/2025 9:47 AM EDT 04/23/2025 9:47 AM EDT Narrative [facility] [employer] - 04/23/2025 4:37 PM EDT Ingestion of fernanda doses of biotin (>5 mg/day) taken within 8 hours of drawing blood sample can interfere with this immunoassay test. Cr Resendez MD CHEMISTRY ORDERABLES Final Res ult Performing Organization Address [facility] de Phone Number [facility] [address] , [place] [address] * PROSTATE SPECIFIC ANTIGEN (SCREENING) (04/23/2025 9:47 AM EDT) Total Psa 0.08 <=4.00 ng/mL 04/23/2025 3:49 PM EDT PREFERRED [facility], [facility] Blood VENOUS BLOOD / Unknown Venipuncture / Unknown 04/23/2025 9:47 AM EDT 04/23/2025 9:47 AM EDT Narrative [facility]REF[facility] - 04/23/2025 3:49 PM EDT The [...] ORDERABLES Final Res ult Performing Organization Address [facility] Co de Phone Number [facility] [address] , [place] [address] * (ABNORMAL) CBC WITH DIFF (04/23/2025 9:47 AM EDT) WBC 7.3 3.7 - 10.3 x10(3)/mcL 04/23/2025 4:08 PM EDT [facility] RBC 4.77 4.60 - 6.10 x10(6)/mcL [...] 4:08 PM EDT [facility] Dougherty # 1.2(H) 0.3 - 0.9 x10(3)/mcL 04/23/2025 4:08 PM EDT [facility] Eos # Manual 0.0 0.0 - 0.5 x10(3)/mcL 04/23/2025 4:08 PM EDT [facility] Baso # Manual 0.1 0.0 - 0.1 x10(3)/mcL 04/23/2025 4:08 PM EDT [facility] Polychrom Slight 04/23/2025 4:08 PM EDT [facility] [place] Cell Moderate 04/23/2025 4:08 PM EDT [facility] Elliptocyte Occasional 04/23/2025 4:08 PM EDT [facility] Target Cell Occasional 04/23/2025 4:08 PM EDT [facility] Blood VENOUS BLOOD / Unknown Venipuncture / Unknown 04/23/2025 9:47 AM EDT 04/23/2025 9:47 AM EDT Cr Resendez MD HEMATOLOGY ORDERABLES Final Re sult Performing Organization Address City/[facility] Co de Phone Number [facility] [address] [facility] , [place] [address] * (ABNORMAL) HEMOGLOBIN A1C (04/23/2025 9:47 AM EDT) Hgb A1C 5.7(H) 4.2 - 5.6 % 04/23/2025 5:18 PM EDT [facility] Est. Avg Glucose 117 mg/dL 04/23/2025 5:18 PM EDT [facility] Blood VENOUS BLOOD / Unknown Venipuncture / Unknown 04/23/2025 9:47 AM EDT 04/23/2025 9:47 AM EDT Narrative [facility], [facility] - 04/23/2025 5:18 PM EDT REFERENCE [...] ult [facility] [address] [facility] , [place] [address] * (ABNORMAL) COMPREHENSIVE METABOLIC PANEL (04/23/2025 9:47 [...] m2 04/23/2025 4:37 PM EDT [facility] Comment:Estimated GFR was ca lculated using the CKD-EPIcr (2020) equation refit without race. The equation is recommended by the National Kidney Foundation - [place] [employer] of Nephrology Task Force. Blood VENOUS BLOOD / Unknown Venipuncture / Unknown 04/23/2025 9:47 AM EDT 04/23/2025 9:47 AM EDT us Cr Resendez MD CHEMISTRY ORDERABLES Final Res ult [facility] [address] [facility] , [place] [address] * SCANNED LABS (04/07/2025 1:31 PM EDT) [...] CLINICAL HISTORY: Z13.6-Encounter for screening for cardiovascular [id number]. COMPARISON: CT abdomen pelvis from 09/07/2023 PROCEDURE COMMENTS: Routine sonographic evaluation of the abdominal aorta with branch sales and service representative images sent to PACS along with hot billet shear operator notes. FINDINGS: The abdominal aorta is normal in caliber. Maximum transverse diameter is 2.4 cm. Atherosclerotic change in the aorta and iliac vessels noted unchanged from the recent CT Procedure Note Cr Ramachandran MD - 12/16/2023 AAA SCREENING EXAM MEDICARE, 12/16/2023 9:55 AM CLINICAL HISTORY: Z13.6-Encounter for screening for cardiovascular irvgrsfwn-HQV-05-CM. COMPARISON: CT abdomen pelvis from 09/07/2023 PROCEDURE COMMENTS: Routine sonographic evaluation of the abdominal aortawith branch sales and service representative images sent to PACS along with hot billet shear operator notes. FINDINGS: The abdominal aorta is normal [...] of the ordering clinician. Cr Resendez MD [facility] ORDERABLES Final Result * COLONOSCOPY (01/13/2023 1:07 [...] Pena MD Performing Provider Raymond Harris, NIURKA Nurse Technician Gurvinder Garner MD Anesthesiologist Mary Jo Romero [...] e Non-Reacti ve 11/24/2021 3:20 PM EDT [facility] Blood VENOUS BLOOD / Unknown Venipuncture / Unknown 11/24/2021 10:38 AM EDT 11/24/2021 10:43 AM EDT us Cr Resendez MD HEMATOLOGY ORDERABLES Final Re sult [facility] [address] [place] [address] from Last 3 Months or Most Recently Relevant to Health Maintenance Insurance [place] [address] [place] [address] [place] [address] [place] Care Teams Internal Medicine Specialist Relationship Specialty Start Date End Date Macario Pryor MD [address] [place] [address] [place] [address] PCP - Hematology/Oncology Internal Medicine-Medical Oncology 11/12/15 Cr Reesndez MD [address] [place] [address] [place] [address] PCP - General Family Medicine 11/24/21 Jan Sin MD [address] [place] [address] [place] [address] Internal Medicine-Cardiovascul ar Disease 08/28/14
--- OUTSIDE RECORDS SUMMARY | 2025-05-01 11:48 | XMS_ITS | Encounter Summary ---
Author Organization Healthcare Address [address] [place] [address] Care Team Providers Care Outreach Nurse Name Role Phone Isabella Saucedo ELEMENTARY SCHOOL TEACHER Unavailable [phone] Jeannie Mcmillan RN Unavailable [phone] Ebony Shoemaker Unavailable [phone] Pcp, No Primary Care Provider Unavailabl e Rodney Gonzáles MD Unavailable [phone] Reason for Referral * Transplant (Routine) [...] present (CMS/HCC) Isabella Saucedo APRN [address] [place] [employer] [address] [place] [address] Phone: tel: fax: Referral ID Status Reason Start Date Expiration Date Visits Requested Visits Authorized [id number] Authorized Specialty Services Required 02/26/[phone] Encounter Details Date Type Department Care Team (Late st Contact Info) Description 02/26/2025 Community [facility] Community Practice [address] [place] [address] Isabella Saucedo APRN [address] [place] [address] [employer] [address] [place] [address] Invasion of liver, gallbladder, pancreas, ipsilateral branch [...] (CMS/HCC) documented in this encounter Care Teams Outreach Nurse Relationship Specialty Start Date End Date Pcp, No [address] [place] [address] PCP - General Family Medicine 03/20/25 Isabella Saucedo APRN 1210 [facility] [address] [place] [address] Referring Physician 02/26/25 Jeannie Mcmillan, RN CH-TRANSPLANT ADMINISTRATION [address] [place] [address] Registered Nurse Transplant Surgery 03/08/25 [place] [address] Registered Nurse Transplant Surgery 03/08/25 Rodney Gonzáles MD 1210 [facility] [address] [place] [address] Medical Oncologist 04/10/25 documented as of this encounter
--- OUTSIDE RECORDS SUMMARY | 2025-05-01 11:48 | XMS_ITS | Encounter Summary ---
Author Organization Healthcare Address [address] [place] [address] Care Team Providers Care Physical Therapy Resident Name Role Phone Isabella Saucedo Phong COOK CHILI Unavailable [phone] Jeannie Mcmillan RN Unavailable [phone] Ebony Shoemaker Unavailable [phone] Pcp, No Primary Care Provider Unavailabl e Rodney Gonzáles MD Unavailable Encounter Details Date Type Department Care Team (Late st Contact Info) Description 01/12/2025 Orders Only External Location [address] [place] [address] Provider, External Social History Tobacco Use Types [...] on filedocumented in this encounter Care Teams Physical Therapy Resident Relationship Specialty Start Date End Date Pcp, No [address] [place] [address] PCP - General Family Medicine 03/20/25 Isabella Saucedo APRN 1210 [facility] [address] [place] [address] Referring Physician 02/26/25 Jeannie Mcmillan, RN CH[facility]PLANT ADMINISTRATION [address] [place] [address] Registered Nurse Transplant Surgery 03/08/25 Ebony Shoemaker [place] [id number] Registered Nurse Transplant Surgery 03/08/25 Rodney Gonzáles MD 1210 [facility] [address] [place] [address] Medical Oncologist 04/10/25 documented as of this encounter
--- OUTSIDE RECORDS SUMMARY | 2025-05-01 11:48 | XMS_ITS | Encounter Summary ---
Author Organization [facility] Address [address] [place] [address] Care Team Providers Care Seismograph Helper Name Role Phone Isabella Saucedo GASTROENTEROLOGY TECHNICIAN Unavailable [phone] Reason for Referral * Consultation (Routine) - Closed Specialty Diagnoses / Procedures Referred By Contac t Referred To Contact Transplant Diagnoses Elevated AFP Liver lesion Hepatic cirrhosis, unspecified hepatic cirrhosis type, unspecified whether ascites present (CMS/HCC) Isabella Saucedo APRN 1210 [facility] [address] [place] [address] Phone: tel: fax: [facility] [address] [address] Phone: tel: fax: Referral ID Status Reason Start Date Expiration Date V isits Requested Visits Authorized [id number] Closed Specialty Services Required 03/06/2025 09/05/2026 1 1 Encounter Details Date Type Department Care Team (Late st Contact Info) Description 03/06/2025 Telephone [facility] [address] [address] Cici Ramírez [place] [id number] Social History Tobacco Use Types Packs/Day Years [...] LAB COAGULATION METHOD 03/14/2025 9:44 AM EDT [facility] INR 1.0 0.9 - 1.1 LAB COAGULATION METHOD 03/14/2025 9:44 AM EDT [facility] Blood Venous blood specimen / Unknown Venipuncture / Unknown 03/14/2025 8:38 AM EDT 03/14/2025 9:03 AM EDT Narrative [facility] - 03/14/2025 9:44 AM [...] Do MD LAB BLOOD ORDERABLES Final Result [facility] [address] [place] [address] * (ABNORMAL) CBC w/o differential (03/14/2025 8:38 AM EDT) WBC Count 5.56 3.70 - 10.30 10*3/uL LAB HEMATOLOGY METHOD 03/14/2025 9:51 AM EDT [facility] RBC Count 4.98 4.60 - 6.10 10*6/uL LAB HEMATOLOGY METHOD 03/14/2025 9:51 AM EDT [facility] HGB 15.9 13.7 - 17.5 g/dL LAB HEMATOLOGY METHOD 03/14/2025 9:51 AM EDT [facility] HCT 48.7 40.0 - 51.0 % LAB HEMATOLOGY METHOD 03/14/2025 9:51 AM EDT [facility] Platelet Count 96(L) 155 - 369 10*3/uL LAB HEMATOLOGY METHOD 03/14/2025 9:51 AM EDT [facility] MCV 98 79 - 98 fL LAB HEMATOLOGY METHOD 03/14/2025 9:51 AM EDT [facility] MCH 31.9 26.0 - 32.0 pg LAB HEMATOLOGY METHOD 03/14/2025 9:51 AM EDT [facility] MCHC 32.6 30.7 - 35.5 g/dL LAB HEMATOLOGY METHOD 03/14/2025 9:51 AM EDT [facility] RDW 17.2(H) 11.5 - 14.5 % LAB HEMATOLOGY METHOD 03/14/2025 9:51 AM EDT [facility] MPV 11.0 8.8 - 12.5 fL LAB HEMATOLOGY METHOD 03/14/2025 9:51 AM EDT [facility] nRBC 0.0 <=0.0 per 100 WBCs LAB HEMATOLOGY METHOD 03/14/2025 9:51 AM EDT [facility] Blood Venous blood specimen / Unknown Venipuncture / Unknown 03/14/2025 8:38 AM EDT 03/14/2025 9:03 AM EDT us Peter Do MD LAB BLOOD ORDERABLES Final Result [facility] [address] [place] [address] * (ABNORMAL) Comprehensive Metabolic Panel (03/14/2025 8:38 AM EDT) Glucose, Plasma 104(H) 74 - 99 mg/dL 03/14/2025 9:30 AM EDT [facility] BUN, Plasma 12 8 - 23 mg/dL 03/14/2025 9:30 AM EDT [facility] Creatinine, Plasma 0.80 0.70 - 1.20 mg/dL 03/14/2025 9:30 AM EDT [facility] BUN/Creatinine Ratio 15 03/14/2025 9:30 AM EDT [facility] Sodium, Plasma 142 136 - 145 mmol/L 03/14/2025 9:30 AM EDT [facility] Potassium, Plasma 3.8 3.6 - 4.9 mmol/L 03/14/2025 9:30 AM EDT [facility] Chloride, Plasma 102 97 - 107 mmol/L 03/14/2025 9:30 AM EDT [facility] CO2, Plasma 28 22 - 29 mmol/L 03/14/2025 9:30 AM EDT [facility] Anion Gap 12 6 - 16 mmol/L 03/14/2025 9:30 AM EDT [facility] Total Calcium, Plasma 9.8 8.9 - 10.2 mg/dL 03/14/2025 9:30 AM EDT [facility] Total Protein 8.0(H) 6.3 - 7.9 g/dL 03/14/2025 9:30 AM EDT [facility] Albumin, Plasma 4.2 3.5 - 5.2 g/dL 03/14/2025 9:30 AM EDT [facility] AST, Plasma 78(H) 10 - 50 U/L 03/14/2025 9:30 AM EDT [facility] ALT, Plasma 50 10 - 50 U/L 03/14/2025 9:30 AM EDT [facility] Alkaline Phosphatase, Plasma 210(H) 40 - 115 U/L 03/14/2025 9:30 AM EDT [facility] Total Bilirubin, Plasma 0.8 0.2 - 1.1 mg/dL 03/14/2025 9:30 AM EDT [facility] eGFRcr 97.6 mL/min/1.7 3m*2 03/14/2025 9:30 AM EDT [facility] Comment:Reported eGFRcr in m L/min/1.73m2 is based the CKD-EPI 2020 equation that does not use a race coefficient. Blood Venous blood specimen / Unknown Venipuncture / Unknown 03/14/2025 8:38 AM EDT 03/14/2025 9:03 AM EDT Peter Do MD LAB BLOOD [place] [address] * (ABNORMAL) CEA, Serum (03/14/2025 8:38 AM EDT) CEA, Serum 5.2(H) <4.0 ng/mL 03/14/2025 10:22 AM EDT [facility] Blood Venous blood specimen / Unknown Venipuncture / Unknown 03/14/2025 8:38 AM EDT 03/14/2025 9:03 AM EDT Narrative [facility] - 03/14/2025 10:22 AM EDT Normal range for smokers: < 5.5 ng/ml Normal range for non-smokers: <=4.0 ng/ml Performed by Ricky electrochemiluminescent immunoassay. Results obtained with different test methods or kits cannot be used interchangeably. Peter Do MD LAB BLOOD ORDERABLES Final Result Performing Organization Address [facility] [place] [address] * Cancer Antigen, GI (CA 19.9) (03/14/2025 8:38 AM EDT) CA 19.9 26.5 <36 U/mL 03/14/2025 10:22 AM EDT [facility] Blood Venous blood specimen / Unknown Venipuncture / Unknown 03/14/2025 8:38 AM EDT 03/14/2025 9:03 AM EDT Narrative [facility] - 03/14/2025 10:22 AM EDT Performed by Ricky electrochemiluminescent immunoassay. Results obtained with different test methods or kits cannot be used interchangeably. Peter Do MD LAB BLOOD ORDERABLES Final Result [facility] [address] [place] [address] * (ABNORMAL) Alpha Fetoprotein, Serum (03/14/2025 8:38 AM EDT) Alpha Fetoprotein, Serum 1,098.0(H) <10.0 ng/mL 03/14/2025 10:22 AM EDT [facility] Blood Venous blood specimen / Unknown Venipuncture / Unknown 03/14/2025 8:38 AM EDT 03/14/2025 9:03 AM EDT Narrative [facility] - 03/14/2025 10:22 AM EDT Performed by Ricky electrochemiluminescent immunoassay which is traceable to the 1st AFP IRP WHO Reference standard 72/255. Results obtained with different test methods or kits cannot be used interchangeably. us Peter Do MD LAB BLOOD ORDERABLES Final Result [facility] [address] [place] [address] documented in this encounter Visit Diagnoses Diagnosis Liver lesion- Primary Other specified disorders of liver Elevated AFP Other nonspecific findings on examination of blood Hepatic cirrhosis, unspecified hepatic cirrhosis type, unspecified whether ascites present (CMS/HCC) Other abnormal tumor markers documented in this encounter Care Teams Seismograph Helper Relationship Specialty Start Date End Date Isabella Saucedo APRN [address] [place] [address] [place] [address] Referring Physician 02/26/25 documented as of this encounter
--- OUTSIDE RECORDS SUMMARY | 2025-05-01 11:48 | XMS_ITS | Encounter Summary ---
Author [place] [address] Care Team Providers Care Composite Laminator Name Role Phone Jan Sin MD Unavailable [phone] Macario Pryor MD Un[facility] Res[facility] MD Primary Care Provider [phone] Reason for Visit * Reason Onset Date Comments Central Patient Navigator Outreach 04/19/2025 AWV Questionnaire Encounter Details Date Type Department Care Team (Late st Contact Info) Description 04/19/2025 Patient Outreach SEP [facility] [address] [place] [address] Cr Resendez MD [address] [place] [address] [place] [address] Central Patient Navigator Outreach (AWV Questionnaire/) Social [...] Questionnaires Attempt Count: inbound Care Gaps Addressed waste elimination: Medicare Questionnaire Outcome:Medicare Questionnaire completed Call back number: [phone] * Esme Mendez - 04/19/2025 10:38 AM EDT Patient Outreach: Pre-Visit Questionnaires Attempt Count: 1st Care Gaps Addressed waste elimination: Medicare Questionnaire Outcome:MyChart Message Sent and Patient not available Call back number: [phone] documented in this encounter Plan of Treatment [...] documented as of this encounter Care Teams Composite Laminator Relationship Specialty Start Date End Date Macario Pryor MD [address] [place] [address] [place] [address] PCP - Hematology/Oncology Internal Medicine-Medical Oncology 11/12/15 Cr Resendez MD [address] [place] [address] [place] [address] PCP - General Family Medicine 11/24/21 Jan Sin MD [address] [place] [address] [place] [address] Internal Medicine-Cardiovascul ar Disease 08/28/14 documented as of this encounter
--- OUTSIDE RECORDS SUMMARY | 2025-05-01 11:48 | XMS_ITS | Encounter Summary ---
Author Organization [place] [address] Care Team Providers Care Bulk Plant Operator Name Role Phone Jan Sin MD Unavailable [phone] Macario Pryor MD Unavailable Unavailabl e rC Resendez MD Primary Care Provider [phone] Reason for Visit * Reason Comments Medication Refill Encounter Details Date Type Department Care Team (Late st Contact Info) Description 03/26/[address] [facility] [place] [address] Cr Resendez MD [address] [place] [address] [place] [address] Medication Refill Social History Tobacco Use Types [...] documented as of this encounter Care Teams Bulk Plant Operator Relationship Specialty Start Date End Date Macario Pryor MD [address] [place] [address] [place] [address] PCP - Hematology/Oncology Internal Medicine-Medical Oncology 11/12/15 Cr Resendez MD [address] [place] [address] [place] [address] PCP - General Family Medicine 11/24/21 Jan Sin MD [address] [place] [address] [place] [address] Internal Medicine-Cardiovascul ar Disease 08/28/14 documented as of this encounter
--- OUTSIDE RECORDS SUMMARY | 2025-05-01 11:49 | XMS_ITS | Encounter Summary ---
Author Organization Healthcare Address [address] [place] [address] Care Team Providers Care Lifestyle Consultant Name Role Phone Isabella Saucedo TRANSFER AND LINE UP WORKER Unavailable [phone] Jeannie Mcmillan RN Unavailable [phone] Shoemaker Unavailable [phone] Pcp, No Primary Care Provider Unavailabl e Rodney Gonzáles MD Unavailable [phone] Encounter Details Date Type Department Care Team (Late st Contact Info) Description 12/06/2024 Orders Only External Location [address] [place] [address] Provider, External Social History Tobacco Use Types [...] on filedocumented in this encounter Care Teams Lifestyle Consultant Relationship Specialty Start Date End Date Pcp, No [address] [place] [address] PCP - General Family Medicine 03/20/25 Isabella Saucedo APRN 1210 [facility] [address] [place] [address] Referring Physician 02/26/25 Jeannie Mcmillan, RN [facility] [address] [place] [address] Registered Nurse Transplant Surgery 03/08/25 Ebony Shoemaker [place] [phone] Registered Nurse Transplant Surgery 03/08/25 Rodney Gonzáles MD 1210 [facility] [address] [place] [address] Medical Oncologist 04/10/25 documented as of this encounter
--- OUTSIDE RECORDS SUMMARY | 2025-05-01 11:49 | XMS_ITS | Encounter Summary ---
Author Organization Healthcare Address [address] [place] [address] Care Team Providers Care Vp Foundation Name Role Phone Isabella Saucedo ANKLE PATCH MOLDER Unavailable [phone] Jeannie Mcmillan RN Unavailable [phone] Shoemaker Unavailable [phone] Pcp, No Primary Care Provider Unavailabl e Rodney Gonzáles MD Unavailable [phone] Encounter Details Date Type Department Care Team (Late st Contact Info) Description 05/26/2022 Orders Only External Location [address] [place] [address] Provider, External Social History Tobacco Use Types [...] on filedocumented in this encounter Care Teams Vp Foundation Relationship Specialty Start Date End Date Pcp, No [address] [place] [address] PCP - General Family Medicine 03/20/25 Isabella Saucedo APRN 1210 [facility] [address] [place] [address] Referring Physician 02/26/25 Jeannie Mcmillan, RN [facility] [address] [place] [address] Registered Nurse Transplant Surgery 03/08/25 Ebony Shoemaker [place] [phone] Registered Nurse Transplant Surgery 03/08/25 Rodney Gonzáles MD 1210 [facility] [address] [place] [place] [address] Medical Oncologist 04/10/25 documented as of this encounter
--- OUTSIDE RECORDS SUMMARY | 2025-05-01 11:49 | XMS_ITS | Encounter Summary ---
Author Organization Healthcare Address [address] [place] [address] Care Team Providers Care Machine Striper Name Role Phone Isabella Saucedo FAMILY AND CONSUMER EDUCATION TEACHER Unavailable [phone] Jeannie cMmillan RN Unavailable [phone] [address] Shoemaker Unavailable [phone] Pcp, No Primary Care Provider Unavailabl e Rodney Gonzáles MD Unavailable [phone] Encounter Details Date Type Department Care Team (Late st Contact Info) Description 12/06/2024 Orders Only External Location [address] [place] [address] Provider, External Social History Tobacco Use Types [...] on filedocumented in this encounter Care Teams Machine Striper Relationship Specialty Start Date End Date Pcp, No [address] [place] [address] PCP - General Family Medicine 03/20/25 Isabella Saucedo APRN 1210 [facility] [address] [place] [address] Referring Physician 02/26/25 Jeannie Mcmillan, RN [facility] [address] [place] [address] Registered Nurse Transplant Surgery 03/08/25 Ebony Shoemaker [place] [id number] Registered Nurse Transplant Surgery 03/08/25 Rodney Gonzáles MD 1210 [facility] [address] [place] [place] [address] Medical Oncologist 04/10/25 documented as of this encounter
--- OUTSIDE RECORDS SUMMARY | 2025-05-01 11:49 | XMS_ITS | Encounter Summary ---
Author Organization Healthcare Address [address] [place] [address] Care Team Providers Care Emergency Planning And Response Manager Name Role Phone Isabella Saucedo JOINT CLEANING MACHINE OPERATOR Unavailable [phone] Jeannie Mcmillan RN Unavailable [phone] [address] Shoemaker Unavailable [phone] Pcp, No Primary Care Provider Unavailabl e Rodney Gonzáles MD Unavailable [phone] Encounter Details Date Type Department Care Team (Late st Contact Info) Description 11/15/2024 Orders Only External Location [address] [place] [address] Provider, External Social History Tobacco Use Types [...] on filedocumented in this encounter Care Teams Emergency Planning And Response Manager Relationship Specialty Start Date End Date Pcp, No [address] [place] [address] PCP - General Family Medicine 03/20/25 Isabella Saucedo APRN 1210 [facility] [place] [address] [place] [place] [address] Referring Physician 02/26/25 Jeannie Mcmillan, RN [facility] [address] [place] [address] Registered Nurse Transplant Surgery 03/08/25 Ebony Shoemaker [place] [phone] Registered Nurse Transplant Surgery 03/08/25 Rodney Gonzáles MD 1210 [facility] [address] [place] [address] Medical Oncologist 04/10/25 documented as of this encounter
--- OUTSIDE RECORDS SUMMARY | 2025-05-01 11:49 | XMS_ITS | Encounter Summary ---
Author Organization Healthcare Address [address] [place] [address] Care Team Providers Care X Ray Inspector Name Role Phone Isabella Saucedo TURNTABLE WORKER Unavailable [phone] Jeannie Mcmillan RN Unavailable [phone] Shoemaker Unavailable [phone] Pcp, No Primary Care Provider Unavailabl e Rodney Gonzáles MD Unavailable [phone] Encounter Details Date Type Department Care Team (Late st Contact Info) Description 01/06/2024 Orders Only External Location [address] [place] [address] Provider, External Social History Tobacco Use Types [...] on filedocumented in this encounter Care Teams X Ray Inspector Relationship Specialty Start Date End Date Pcp, No [address] [place] [address] PCP - General Family Medicine 03/20/25 Isabella Saucedo APRN 1210 [facility] [address] [place] [place] [address] Referring Physician 02/26/25 Jeannie Mcmillan, RN [facility] [address] [place] [address] Registered Nurse Transplant Surgery 03/08/25 Ebony Shoemaker [place] [phone] Registered Nurse Transplant Surgery 03/08/25 Rodney Gonzáles MD 1210 [facility] [address] [place] [place] [address] Medical Oncologist 04/10/25 documented as of this encounter
--- OUTSIDE RECORDS SUMMARY | 2025-05-01 11:49 | XMS_ITS | Encounter Summary ---
Author Organization Healthcare Address [address] [place] [address] Care Team Providers Care Candy Butcher Name Role Phone Isabella Saucedo CHIEF MEDICAL DIRECTOR Unavailable [phone] Encounter Details Date Type Department Care Team [...] on filedocumented in this encounter Care Teams Candy Butcher Relationship Specialty Start Date End Date Isabella Saucedo APRN [address] [place] [address] Referring Physician 02/26/25 documented as of this encounter
--- OUTSIDE RECORDS SUMMARY | 2025-05-01 11:49 | XMS_ITS | Encounter Summary ---
Author Organization Healthcare Address [address] [place] [address] Care Team Providers Care Solid Glass Rod Dowel Machine Operator Name Role Phone Isabella Saucedo STONE PAVER Unavailable [phone] Jeannie Mcmillan RN Unavailable Ebony Shoemaker Unavailable [phone] Pcp, No Primary Care Provider Unavailabl e Rodney Gonzáles MD Unavailable [phone] Encounter Details Date Type Department Care Team (Late st Contact Info) Description 12/06/2024 Orders Only External Location [address] [place] [address] Provider, External Social History Tobacco Use Types [...] on filedocumented in this encounter Care Teams Solid Glass Rod Dowel Machine Operator Relationship Specialty Start Date End Date Pcp, No [address] [place] [address] PCP - General Family Medicine 03/20/25 Isabella Saucedo APRN 1210 [facility] [address] [place] [address] Referring Physician 02/26/25 Jeannie Mcmillan, RN [facility]MINISTRATION [address] [place] [address] Registered Nurse Transplant Surgery 03/08/25 Ebony Shoemaker [place] [phone] Registered Nurse Transplant Surgery 03/08/25 Rodney Gonzáles MD 1210 [facility] [address] [place] [address] Medical Oncologist 04/10/25 documented as of this encounter
--- OUTSIDE RECORDS SUMMARY | 2025-05-01 11:49 | XMS_ITS | Encounter Summary ---
Author Organization Healthcare Address [address] [place] [address] Care Team Providers Care Patrol Agent Name Role Phone Isabella Saucedo INSPECTOR FINAL ASSEMBLY MECHANICAL Unavailable [phone] Jeannie Mcmillan RN Unavailable Ebony Shoemaker Unavailable [phone] Encounter Details Date Type Department Care [...] at all 03/14/2025 9:07 AM EDT Shari Moseely Patient Health Questionnaire -2 Score 0 03/14/2025 [...] documented as of this encounter Care Teams Patrol Agent Relationship Specialty Start Date End Date Lewis Isabella Darling APRN [address] [place] [address] [place] [address] Referring Physician 02/26/25 Jeannie Mcmillan, RN [facility]MINISTRATION [address] [place] [address] Registered Nurse Transplant Surgery 03/08/25 [place] [address] Registered Nurse Transplant Surgery 03/08/25 documented as of this encounter
--- OUTSIDE RECORDS SUMMARY | 2025-05-01 11:49 | XMS_ITS | Encounter Summary ---
Author Organization Healthcare Address [address] [place] [address] Care Team Providers Care Software Security Consultant Name Role Phone Isabella Saucedo ASBESTOS REMOVER Unavailable [phone] Jeannie Mcmillan RN Unavailable [phone] [address] Shoemaker Unavailable [phone] Pcp, No Primary Care Provider Unavailabl e Rodney Gonzáles MD Unavailable [phone] Encounter Details Date Type Department Care Team (Late st Contact Info) Description 12/06/2024 Orders Only External Location [address] [place] [address] Provider, External Social History Tobacco Use Types [...] on filedocumented in this encounter Care Teams Software Security Consultant Relationship Specialty Start Date End Date Pcp, No [address] [place] [address] PCP - General Family Medicine 03/20/25 Isabella Saucedo APRN 1210 [facility] [address] [place] [address] Referring Physician 02/26/25 Jeannie Mcmilaln, RN [facility]TRANSPLANT ADMINISTRATION [address] [place] [address] Registered Nurse Transplant Surgery 03/08/25 Ebony Shoemaker [place] [phone] Registered Nurse Transplant Surgery 03/08/25 Rodney Gonzáles MD 1210 [facility] [address] [place] [address] Medical Oncologist 04/10/25 documented as of this encounter
--- OUTSIDE RECORDS SUMMARY | 2025-05-01 11:49 | XMS_ITS | Encounter Summary ---
Author Organization Healthcare Address [address] [place] [address] Care Team Providers Care Parish Worker Name Role Phone Isabella Saucedo NETWORK PRICING CONSULTANT Unavailable [phone] Jeannie Mcmillan RN Unavailable [phone] [address] Shoemaker Unavailable [phone] Pcp, No Primary Care Provider Unavailabl e Rodney Gonzáles MD Unavailable [phone] Encounter Details Date Type Department Care Team (Late st Contact Info) Description 11/22/2024 Orders Only External Location [address] [place] [address] Provider, External Social History Tobacco Use Types [...] on filedocumented in this encounter Care Teams Parish Worker Relationship Specialty Start Date End Date Pcp, No [address] [place] [address] PCP - General Family Medicine 03/20/25 Isabella Saucedo APRN 1210 [facility] [address] [place] [address] Referring Physician 02/26/25 Jeannie Mcmillan, RN [facility]TRANSPLANT ADMINISTRATION [address] [place] [address] Registered Nurse Transplant Surgery 03/08/25 [place] [address] Registered Nurse Transplant Surgery 03/08/25 Rodney Gonzáles MD 1210 [facility] [address] [place] [address] Medical Oncologist 04/10/25 documented as of this encounter
--- OUTSIDE RECORDS SUMMARY | 2025-05-01 11:49 | XMS_ITS | Encounter Summary ---
Author Organization Healthcare Address [address] [place] [address] Care Team Providers Care Plater Production Name Role Phone Isabella Saucedo CUSTOMS INSPECTOR Unavailable [phone] Jeannie Mcmillan RN Unavailable [phone] Ebony Shoemaker Unavailable [phone] Pcp, No Primary Care Provider Unavailabl e Rodney Gonzáles MD Unavailable [phone] Encounter Details Date Type Department Care Team (Late st Contact Info) Description 12/06/2024 Orders Only External Location [address] [place] [address] Provider, External Social History Tobacco Use Types [...] on filedocumented in this encounter Care Teams Plater Production Relationship Specialty Start Date End Date Pcp, No [address] [place] [address] PCP - General Family Medicine 03/20/25 Isabella Saucedo APRN 1210 [facility] [address] [place] [address] Referring Physician 02/26/25 Jeannie Mcmillan, RN [facility] [address] [place] [address] Registered Nurse Transplant Surgery 03/08/25 Ebony Shoemaker [place] [phone] Registered Nurse Transplant Surgery 03/08/25 Rodney Gonzáles MD 1210 [facility] [address] [place] [address] Medical Oncologist 04/10/25 documented as of this encounter
--- OUTSIDE RECORDS SUMMARY | 2025-05-01 11:49 | XMS_ITS | Encounter Summary ---
Author Organization [facility] Address [address] [place] [address] Care Team Providers Care Agricultural Mechanic Name Role Phone Isabella Saucedo CLOUD INFRASTRUCTURE ARCHITECT Unavailable [phone] Jeannie Mcmillan RN Unavailable [phone] Ebony Shoemaker Unavailable [phone] Encounter Details Date Type Department Care [...] filedocumented in this encounter Care Teams Agricultural Mechanic Relationship Specialty Start Date End Date Isabella Saucedo APRN [address] [place] [address] Referring Physician 02/26/25 Jeannie Mcmillan, RN [facility]ISTRATION [address] [place] [address] Registered Nurse Transplant Surgery 03/08/25 [place] [address] Registered Nurse Transplant Surgery 03/08/25 documented as of this encounter
--- OUTSIDE RECORDS SUMMARY | 2025-05-01 11:49 | XMS_ITS | Encounter Summary ---
Author Organization Healthcare Address [address] [place] [address] Care Team Providers Care Human Resources Psychologist Name Role Phone Isabella Saucedo PRESALES ENGINEER Unavailable [phone] Jeannie Mcmillan RN Unavailable [phone] Ebony Shoemaker Unavailable [phone] Pcp, No Primary Care Provider Unavailabl e Rodney Gonzáles MD Unavailable [phone] Encounter Details Date Type Department Care Team (Late st Contact Info) Description 12/06/2024 Orders Only External Location [address] [place] [address] Provider, External Social History Tobacco Use Types [...] filedocumented in this encounter Care Teams Human Resources Psychologist Relationship Specialty Start Date End Date Pcp, No [address] [place] [address] PCP - General Family Medicine 03/20/25 Isabella Saucedo APRN 1210 [facility] [address] [place] [address] Referring Physician 02/26/25 Jeannie Mcmillan, RN [facility] [address] [place] [address] Registered Nurse Transplant Surgery 03/08/25 Ebony Shoemaker [place] [phone] Registered Nurse Transplant Surgery 03/08/25 Rodney Gonzáles MD 1210 [facility] [address] [place] [address] Medical Oncologist 04/10/25 documented as of this encounter
--- OUTSIDE RECORDS SUMMARY | 2025-05-01 11:49 | XMS_ITS | Encounter Summary ---
Author Organization Healthcare Address [address] [place] [address] Care Team Providers Care Investigation Division Lieutenant Name Role Phone Isabella Saucedo WIND TUNNEL ENGINEER Unavailable [phone] Jeannie Mcmillan RN Unavailable [phone] Ebony Shoemaker Unavailable [phone] Pcp, No Primary Care Provider Unavailabl e Rodney Gonzáles MD Unavailable [phone] Encounter Details Date Type Department Care Team (Late st Contact Info) Description 06/03/2022 Orders Only External Location [address] [place] [address] Provider, External Social History Tobacco Use Types [...] on filedocumented in this encounter Care Teams Investigation Division Lieutenant Relationship Specialty Start Date End Date Pcp, No [address] [place] [address] PCP - General Family Medicine 03/20/25 Isabella Saucedo APRN 1210 [facility] [address] [place] [address] Referring Physician 02/26/25 Jeannie Mcmillan, RN [facility] [address] [place], [place] [address] Registered Nurse Transplant Surgery 03/08/25 Ebony Shoemaker [place] [phone] Registered Nurse Transplant Surgery 03/08/25 Rodney Gonzáles MD 1210 [facility] [address] [address] Medical Oncologist 04/10/25 documented as of this encounter
--- OUTSIDE RECORDS SUMMARY | 2025-05-01 11:49 | XMS_ITS | Encounter Summary ---
Author Organization Healthcare Address [address] [place] [address] Care Team Providers Care Lubrication Equipment Servicer Name Role Phone Isabella Saucedo STYLE ADVISOR Unavailable [phone] Jeannie Mcmillan RN Unavailable [phone] Ebony Shoemaker Unavailable [phone] Pcp, No Primary Care Provider Unavailabl e Rodney Gonzáles MD Unavailable Encounter Details Date Type Department Care Team (Late st Contact Info) Description 01/14/2024 Orders Only External Location 800 [place] [address] Provider, External Social History Tobacco Use Types [...] on filedocumented in this encounter Care Teams Lubrication Equipment Servicer Relationship Specialty Start Date End Date Pcp, No [address] [place] [address] PCP - General Family Medicine 03/20/25 Isabella Saucedo APRN 1210 [facility] [address] [place] [address] Referring Physician 02/26/25 Jeannie Mcmillan, RN [facility]IST[facility]ATION [address] [place] [address] Registered Nurse Transplant Surgery 03/08/25 Ebony Shoemaker [place] [phone] Registered Nurse Transplant Surgery 03/08/25 Rodney Gonzáles MD 1210 [facility] [address] [place] [address] Medical Oncologist 04/10/25 documented as of this encounter
--- OUTSIDE RECORDS SUMMARY | 2025-05-01 11:49 | XMS_ITS | Encounter Summary ---
Author Organization Healthcare Address [address] [place] [address] Care Team Providers Care Watch And Clock Maker And Repairer Name Role Phone Isabella Saucedo WATER PROJECT MANAGER Unavailable [phone] Jeannie Mcmillan RN Unavailable [phone] Ebony Shoemaker Unavailable [phone] Pcp, No Primary Care Provider Unavailabl e Rodney Gonzáles MD Unavailable [phone] Encounter Details Date Type Department Care Team (Late st Contact Info) Description 12/07/2024 Orders Only External Location [address] [place] [address] Provider, External Social History Tobacco Use Types [...] on filedocumented in this encounter Care Teams Watch And Clock Maker And Repairer Relationship Specialty Start Date End Date Pcp, No [address] [place] [address] PCP - General Family Medicine 03/20/25 Isabella Saucedo APRN 1210 [facility] [address] [place] [address] Referring Physician 02/26/25 Jeannie Mcmillan, RN [facility]MINISTRATION [address] [place], [place] [id number] Registered Nurse Transplant Surgery 03/08/25 Ebony Shoemaker [place] [id number] Registered Nurse Transplant Surgery 03/08/25 Rodney Gonzáles MD 1210 [facility] [address] [place] [address] Medical Oncologist 04/10/25 documented as of this encounter
--- OUTSIDE RECORDS SUMMARY | 2025-05-01 11:49 | XMS_ITS | Encounter Summary ---
Author Organization [facility] Address [address] [place] [address] Care Team Providers Care Low Vision Therapist Name Role Phone Isabella Saucedo SENIOR INSTRUCTOR Unavailable [phone] Jeannie Mcmillan RN Unavailable [phone] Ebony Shoemaker Unavailable [phone] Reason for Referral * Imaging (Routine) - Closed Specialty Diagnoses / Procedures Referred By Contac t Referred To Contact Radiology Diagnoses Elevated AFP Liver lesion Hepatic cirrhosis, unspecified hepatic cirrhosis type, unspecified whether ascites present (CMS/HCC) Procedures CT CHEST WO IV CONTRAST Peter Do MD [address] [facility] [address] [place] [phone] Phone: tel: fax: Referral ID Status Reason Start Date Expiration Date Visits Re quested Visits Authorized [id number] Closed 03/14/2025 09/13/2026 1 1 Encounter Details Date Type Department Care Team (Late st Contact Info) Description 03/14/2025 Orders Only [facility] [address] [facility] [address] [place] [address] [place] [address] Liver lesion (Primary Dx); Elevated [...] documented as of this encounter Care Teams Low Vision Therapist Relationship Specialty Start Date End Date Isabella Saucedo APRN [address] [place] [address] Referring Physician 02/26/25 Jeannie Mcmillan, RN [facility] ADMINISTRATION [address] [place] [address] Registered Nurse Transplant Surgery 03/08/25 Ebony Shoemaker [place] [phone] Registered Nurse Transplant Surgery 03/08/25 documented as of this encounter
--- OUTSIDE RECORDS SUMMARY | 2025-05-01 11:49 | XMS_ITS | Encounter Summary ---
Author Organization Healthcare Address [address] [place] [address] Care Team Providers Care Presentation Designer Name Role Phone Isabella Saucedo MANAGER CLINICAL APPLICATIONS Unavailable [phone] Jeannie Mcmillan RN Unavailable [phone] Ebony Shoemaker Unavailable [phone] Pcp, No Primary Care Provider Unavailabl e Rodney Gonzáles MD Unavailable [phone] Encounter Details Date Type Department Care Team (Late st Contact Info) Description 12/06/2024 Orders Only External Location [address] [place] [address] Provider, External Social History Tobacco Use Types [...] on filedocumented in this encounter Care Teams Presentation Designer Relationship Specialty Start Date End Date Pcp, No [address] [place] [address] PCP - General Family Medicine 03/20/25 Isabella Saucedo APRN 1210 [facility] [address] [place] [address] Referring Physician 02/26/25 Jeannie Mcmillan, RN CH-TRANSPLANT ADMINISTRATION [address] [place] [address] Registered Nurse Transplant Surgery 03/08/25 Ebony Shoemaker [place] [phone] Registered Nurse Transplant Surgery 03/08/25 Rodney Gonzáles MD 1210 [facility] [address] [place] [address] Medical Oncologist 04/10/25 documented as of this encounter
--- OUTSIDE RECORDS SUMMARY | 2025-05-01 11:49 | XMS_ITS ---
Author Organization [facility] Address [address] [place] [address] Care Team Providers Care File Drawer Finisher Name Role Phone Isabella Saucedo VEHICLE INSURANCE AGENT Unavailable [phone] Jeannie Mcmillan RN Unavailable [phone] Ebony Shoemaker Unavailable [phone] Pcp, No Primary Care Provider Unavailabl e Rodney Gonzáles MD Unavailable [phone] Transplant Episode Liver Candidate [facility] ([place], [place]) [facility] Referred on 02/26/2025 Marked as Ineligible on 03/06/2025 Reason: Transfered to Another Program Liver CoordinatorAngelita Reeves Fax: N/A Email: N/A Scores Score Value Updated Expires Exceptions/[place] sons CPRA Not available MELD (Calc) 7 03/21/2025 Care Team Name Role Phone Fax Email Angelita Reeves Liver Coordinator [phone] N/A N/A Gloria Chau LCSW Special Agent [employer] [phone] N/A N/A Isabella Saucedo APRN Referring Physician [phone] N/A Haroon Cannon MD Surgeon [phone] N/A Events Pre-Transplant Referred: 02/26/2025
--- OUTSIDE RECORDS SUMMARY | 2025-05-01 11:49 | XMS_ITS | Encounter Summary ---
Author Organization Healthcare Address [address] [place] [address] Care Team Providers Care School Operations Manager Name Role Phone Isabella Saucedo NIGHT AUDITOR Unavailable [phone] Jeannie Mcmillan RN Unavailable [phone] Ebony Shoemaker Unavailable [phone] Pcp, No Primary Care Provider Unavailabl e Rodney Gonzáles MD Unavailable [phone] Encounter Details Date Type Department Care Team (Late st Contact Info) Description 05/26/2022 Orders Only External Location [address] [place] [address] Provider, External Social History Tobacco Use Types [...] on filedocumented in this encounter Care Teams School Operations Manager Relationship Specialty Start Date End Date Pcp, No [address] [place] [address] PCP - General Family Medicine 03/20/25 Isabella Saucedo APRN 1210 [facility] [address] [place] [address] Referring Physician 02/26/25 Jeannie Mcmillan, RN [facility]TR[facility]PL[facility] ADMINISTRATION [address] [place] [address] Registered Nurse Transplant Surgery 03/08/25 Ebony Shoemaker [place] [phone] Registered Nurse Transplant Surgery 03/08/25 Rodney Gonzáles MD 1210 [facility] [address] [place] [address] Medical Oncologist 04/10/25 documented as of this encounter
--- OUTSIDE RECORDS SUMMARY | 2025-05-01 11:50 | XMS_ITS | Encounter Summary ---
Author Organization Healthcare Address [address] [place] [address] Care Team Providers Care Criminal Justice Lawyer Name Role Phone Isabella Saucedo VIDEOTAPE SALES REPRESENTATIVE Unavailable [phone] Jeannie Mcmillan RN Unavailable [phone] Ebony Shoemaker Unavailable [phone] Pcp, No Primary Care Provider Unavailabl e Rodney Gonzáles MD Unavailable [phone] Encounter Details Date Type Department Care Team (Late st Contact Info) Description 12/06/2024 Orders Only External Location [address] [place] [address] Provider, External Social History Tobacco Use Types [...] on filedocumented in this encounter Care Teams Criminal Justice Lawyer Relationship Specialty Start Date End Date Pcp, No [address] [place] [address] PCP - General Family Medicine 03/20/25 Isabella Saucedo APRN 1210 [facility] [address] [place] [address] Referring Physician 02/26/25 Jeannie Mcmillan, RN CH-TRANSPLANT ADMINISTRATION [address] [place] [address] Registered Nurse Transplant Surgery 03/08/25 Ebony Shoemaker [place] [phone] Registered Nurse Transplant Surgery 03/08/25 Rodney Gonzáles MD 1210 [facility] [address] [place] [address] Medical Oncologist 04/10/25 documented as of this encounter
--- OUTSIDE RECORDS SUMMARY | 2025-05-01 11:50 | XMS_ITS | Encounter Summary ---
Author Organization Healthcare Address [address] [place] [address] Care Team Providers Care Internet Technology Manager Name Role Phone Isabella Saucedo SUPERVISORY AIR INTERCEPT CONTROLLER Unavailable [phone] Jeannie Mcmillan RN Unavailable [phone] Ebony Shoemaker Unavailable [phone] Pcp, No Primary Care Provider Unavailabl e Rodney Gonzáles MD Unavailable [phone] Encounter Details Date Type Department Care Team (Late st Contact Info) Description 12/06/2024 Orders Only External Location [address] [place] [address] Provider, External Social History Tobacco Use Types [...] filedocumented in this encounter Care Teams Internet Technology Manager Relationship Specialty Start Date End Date Pcp, No [address] [place] [address] PCP - General Family Medicine 03/20/25 Isabella Saucedo APRN 1210 [facility] [address] [place] [address] Referring Physician 02/26/25 Jeannie Mcmillan, RN CH-TRANSPLANT ADMINISTRATION [address] [place] [address] Registered Nurse Transplant Surgery 03/08/25 Ebony Shoemaker [place] [phone] Registered Nurse Transplant Surgery 03/08/25 Rodney Gonzáles MD 1210 [facility] [address] [place] [address] Medical Oncologist 04/10/25 documented as of this encounter
[2025-05-01 11:57] LABS: RBC,Urine Occasional #/hpf (0-3)
--- NOTE | 2025-05-01 12:06 | CT_ITS ---
FINAL REPORT TECHNIQUE: After the administration of oral and intravenous contrast, axial images were obtained through the abdomen and pelvis by computed tomography. The study was performed with techniques to keep radiation dose as low as reasonably achievable, (ALARA). Individual dose reduction techniques using automated exposure control or adjustment of mA and/or kV according to the patient's size were employed. CLINICAL HISTORY: RUQ/RLQ abd pain, h/o HCC COMPARISON: 01/12/2025 FINDINGS: Abdomen: The lung bases are clear. The liver has a markedly heterogeneous appearance. The liver margins are nodular. Multiple regenerative nodules are seen throughout the liver. There is a dominant mass in the right lobe of the liver measuring 9.4 cm in diameter. These contain heterogeneous regions of decreased attenuation. There is peripheral enhancement of the mass. Findings are all consistent with hepatocellular carcinoma. The gallbladder is distended. There is abnormal gallbladder wall thickening medially measuring up to 7 mm in thickness. There is a gallstone in the dependent portion of the gallbladder. There is a benign-appearing cyst in the superior pole of the left kidney measuring 2.6 cm. Multitude of bilateral nonobstructing renal stones are identified. There is a partially calcified mass in the left adrenal gland measuring 1.3 cm in diameter. The spleen and pancreas are unremarkable. The aorta is normal in caliber. There is no free fluid or adenopathy. Pelvis: The appendix is enlarged measuring up to 8 mm in diameter. No surrounding inflammatory reaction is identified. There is abnormal mucosal thickening within the cecum and ascending colon. The urinary bladder is unremarkable. There is a small amount of pelvic free fluid. There is no evidence of adenopathy. IMPRESSION: Advanced changes of cirrhosis with 9.4 cm mass consistent with known history of hepatocellular carcinoma. Distended gallbladder with wall thickening, cannot exclude acute cholecystitis. Enlarged fluid-filled appendix with associated mucosal thickening of the cecum and ascending colon, likely related to colitis although superimposed or concurrent appendicitis is not excluded. Reviewed, Interpreted and Dictated by Raj Granda MD Transcribed by Geetha Diaz Authenticated and [facility]
--- NOTE | 2025-05-01 12:12 | HMH.EDGENADL ---
Discharge Plan Disposition Patient Disposition: Xfer Other Prescriptions Prescriptions: No Action cyclobenzaprine 5 mg tablet 5 mg PO BID potassium chloride [K-Tab] 20 mEq tablet extended release 10 meq PO DAILY prochlorperazine maleate [Compazine] 10 mg tablet 10 mg PO Q6H PRN (Reason: nausea and vomiting) Qty: 30 1RF Rx Instructions: take one tablet as needed for n/v related to chemotherapy albuterol sulfate 90 mcg/actuation HFA aerosol inhaler 1 inh inhalation NEEDED PRN (Reason: COPD) Patient Comments: INHALE 2 PUFFS INTO THE LUNGS 4 TIMES DAILY. furosemide 20 mg tablet 20 mg PO DAILY hydromorphone [Dilaudid] 4 mg tablet 4 mg PO Q4-6H PRN (Reason: pain) Qty: 180 0RF sennosides [senna] 8.6 mg tablet 8.6 mg PO HS Qty: 30 5RF nitroglycerin 0.4 mg tablet, sublingual 0.4 mg sublingual Q5M PRN (Reason: chest pain) Qty: 14 0RF Rx Instructions: do not exceed 3 doses per episode bisoprolol fumarate 5 mg tablet 5 mg PO DAILY Qty: 30 2RF prednisone 20 mg tablet 20 mg PO TID Qty: 90 0RF omeprazole 10 mg capsule,delayed release(DR/EC) 10 mg PO DAILY Qty: 30 3RF aspirin 81 mg Tablet 81 mg PO DAILY escitalopram oxalate 20 mg tablet 20 mg PO AM Patient Comments: TAKE 1 TABLET BY MOUTH DAILY. Trelegy Ellipta 100-62.5-25 mcg blister with device 1 inh INHALATION DAILY Patient Comments: INHALE 1 PUFF INTO THE LUNGS DAILY AT 0900. clopidogrel 75 mg Tablet 75 mg PO DAILY 30 Days Qty: 30 0RF Jardiance 10 mg Tablet 10 mg PO DAILY 30 Days Qty: 30 0RF polyethylene glycol 3350 [Miralax] 17 gram/dose Powder 17 g PO DAILY megestrol 800 mg/20 mL (20 mL) suspension 800 mg PO DAILY Qty: 600 3RF Rx Instructions: Please take 20 mL by mouth daily Referrals Follow up/Referrals: Cr Resendez MD [Primary Care Provider, Medical] - See instructions Clinical Impressions Clinical Impression: Right sided abdominal pain, Acute cholecystitis, HCC (hepatocellular carcinoma) Instructions Patient Instructions: DI for Acute Abdominal Pain Print Language Print Language: Bruneian Discharge ED Provider: Phong Lazo General Adult HPI General Chief complaint: Abdominal Pain Stated complaint: R Upper Quadrant Pain Time Seen by Provider: 05/01/25 11:53 Mode of Arrival: Family Vehicle Source of Information: Patient, Spouse and Medical Record Description of Symptoms (Recalled from ER Triage Doc. by RN): Pt presents to ER with c/o RUQ pain. Denies any nausea, vomiting or diarrhea. Pt does have liver cancer and follows Dr Gonzáles. Pt has known elevated bilirubin of 3. He does appear jaundiced. He just completed an echo, orderd by Dr Youngblood. He has an extensive heart hx with IA, CAD, CABG, and multiple cardiac stents. Denies any fever, chills, or body aches. states pt has a known liver tumor that may be affecting his gallbladder and they like it checked out . He is ucurrently receiving chemo, but had to hold off on the most recent dose d/t his elevated bili. 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 Jimenez is following him here at [facility] called 's team and discussed with him the possibility of getting him on steroids which has not yet been initiated. They thought that was a reasonable plan but has not been initiated yet. Patient did have elevated T. bili but when fractionated did not show that it was direct was primarily indirect. Patient has no history of decompensation or ascites. States over the last several days to weeks she has had intermittent right upper quadrant to right lower quadrant abdominal pain. Was told in the past he had a gallbladder full of stones. Related Data Home Medications ?Medication ?Instructions ?Recorded ?Confirmed aspirin 81 mg tablet 81 mg PO DAILY 01/06/24 04/26/25 escitalopram oxalate 20 mg tablet 20 mg PO AM 01/06/24 04/26/25 fluticasone fur. 100 mcg-umeclid 1 inh inhalation DAILY 01/06/24 04/26/25 62.5 mcg-vilant 25 mcg inhalat.powder (Trelegy Ellipta) albuterol sulfate 90 mcg/actuation 1 inh inhalation NEEDED PRN COPD 11/22/24 04/26/25 aerosol inhaler cyclobenzaprine 5 mg tablet 5 mg PO BID 04/05/25 04/26/25 potassium chloride 20 mEq 10 meq PO DAILY 04/05/25 04/26/25 tablet,extended release (K-Tab) polyethylene glycol 3350 17 17 g PO DAILY 04/06/25 04/26/25 gram/dose oral powder (Miralax) furosemide 20 mg tablet 20 mg PO DAILY 04/26/25 Previous Rx's ?Medication ?Instructions ?Recorded clopidogrel 75 mg tablet 75 mg PO DAILY 30 days #30 tabs 01/07/24 empagliflozin 10 mg tablet 10 mg PO DAILY 30 days #30 tabs 01/07/24 (Jardiance) nitroglycerin 0.4 mg sublingual 0.4 mg sublingual Q5M PRN chest 01/10/24 tablet pain #14 tabs bisoprolol fumarate 5 mg tablet 5 mg PO DAILY #30 tabs 09/25/24 prochlorperazine maleate 10 mg 10 mg PO Q6H PRN nausea and 03/27/25 tablet (Compazine) vomiting #30 tabs megestrol 800 mg/20 mL (20 mL) 800 mg (20 mL) PO DAILY #600 mL 04/09/25 oral suspension hydromorphone 4 mg tablet 4 mg PO Q4-6H PRN pain #180 tabs 04/26/25 (Dilaudid) sennosides 8.6 mg tablet (senna) 8.6 mg PO HS #30 tabs 04/26/25 omeprazole 10 mg capsule,delayed 10 mg PO DAILY #30 caps 05/01/25 release prednisone 20 mg tablet 20 mg PO TID #90 tabs 05/01/25 Allergies Allergy/AdvReac Type Severity Reaction Status Date / Time adhesive tape (ADHESIVE TAPE) Allergy Intermediate I-RASH Verified 04/26/25 09:42 gabapentin AdvReac Severe Confusion Verified 04/26/25 09:42 duloxetine (From CYMBALTA) AdvReac Unknown Unknown Verified 04/26/25 09:42 allergy reaction [facility] Disclaimer: The information contained in this section may have been updated after the patient was seen, as this information can be updated by other users. Medical History Mood disorder COPD (chronic obstructive pulmonary disease) Vitamin D deficiency, unspecified Abnormal ultrasound of both kidneys HTN (hypertension) Moderate mitral valve regurgitation Fatigue SOB (shortness of breath) Surgical History Hx of CABG AICD (automatic cardioverter/defibrillator) present Family History Other No significant family history Social History Smoking Status: Former smoker tobacco type: cigarettes packs per day: 1 years smoked: 40 quit status: has quit before alcohol intake: former substance use type: denies use current occupational status: disabled Travel in the last 8 weeks?: None household members: spouse housing: house caffeine: Yes Have you lived/traveled outside [place] in past 30 days?: No Contact w/someone who lives/traveled outside US past 30 days?: No Exposure to someone with infectious disease in past 14 days?: No Do you have a fever (greater than 100.4 F or 38 C)?: No Have you tested positive for COVID-19?: No Exposed to someone with COVID-19 in past 14 days?: No Do you have a sore throat?: No Do you have a cough?: No Do you have any weakness?: No Do you have any diarrhea?: No Are you experiencing any unusual bleeding?: No Do you have any muscle aches/pain?: Yes Do you have any abdominal pain?: No Are you experiencing loss of taste or smell?: No Other Medical History Have you received the Flu Vaccine for this season: No Have you received the Pneumonia Vaccine: No ROS Obtained: Yes All systems reviewed & no additional complaints except as documented Physical Exam General General appearance: alert and in no apparent distress Respiratory Respiratory exam: Present normal lung sounds bilaterally Cardiovascular Cardiovascular exam: Present regular rate and normal rhythm Neurological Exam Neurological exam: Present alert and oriented X3 Medical Decision Making Medical Records Screening: Per USPSTF and CDC recommendations, given the prevalence of disease in our region, it is our hospital?s policy to screen for HIV and viral Hepatitis for all patients aged 18 and over and those with ongoing risk factors. Tony Inquiry Pt receiving controlled substance: No Vital Signs: 05/01/25 10:36 05/01/25 13:02 05/01/25 13:30 Temperature 97.8 F Temperature Source Oral Pulse Rate 71 78 Pulse Rate [Right] 81 Respiratory Rate 16 Blood Pressure 127/53 L 124/50 L Blood Pressure [Left Arm] 153/49 H Blood Pressure Mean Blood Pressure Mean [Left Arm] 83 Blood Pressure Source [Left Arm] Automatic Cuff 02 Sat by Pulse Oximetry 98 99 97 Oxygen Delivery Method Room Air 05/01/25 14:01 Temperature Temperature Source Pulse Rate 72 Pulse Rate [Right] Respiratory Rate Blood Pressure 134/47 L Blood Pressure [Left Arm] Blood Pressure Mean 76 Blood Pressure Mean [Left Arm] Blood Pressure Source [Left Arm] 02 Sat by Pulse Oximetry 97 Oxygen Delivery Method Lab Data Lab results reviewed: Yes I reviewed the patient's lab results. Lab Results 05/01/25 10:57: WBC 8.7, RBC 4.46 L, Hgb 14.4, Hct 41.4 L, MCV 92.8, MCH 32.3 H, MCHC 34.8, RDW 15.2, Plt Count 144, MPV 11.4 H, Neut % (Auto) 66.2, Lymph % (Auto) 17.8, [place] % (Auto) 14.3 H, Eos % (Auto) 0.9, Baso % (Auto) 0.3, Neut # (Auto) 5.8, Lymph # (Auto) 1.6, [place] # (Auto) 1.2 H, Eos # (Auto) 0.1, Baso # (Auto) 0.0, Sodium 138, Potassium 4.3, Chloride 105, Carbon Dioxide 25, Anion Gap 12.3, BUN 20, Creatinine 0.90, Estimated Creat Clear 62, Estimated GFR 84, Est GFR ( Amer) 102, Glucose 95, Calcium 9.5, Total Bilirubin 3.8 H, Direct Bilirubin 1.4 H, GGT 108 H, AST 264 H, ALT 34, Alkaline Phosphatase 234 H, Ammonia 9, Troponin I < 0.01, Total Protein 7.8, Albumin 3.8, Globulin 4.0 H, Albumin/Globulin Ratio 1.0 L 05/01/25 11:01: Urine Color Yellow, Urine Appearance Clear, Urine pH 5.5, Ur Specific [place] 1.020, Urine Protein Negative, Urine Glucose (UA) 3+, Urine Ketones Negative, Urine Blood Negative, Urine Nitrate Negative, Urine Bilirubin Negative, Urine Urobilinogen 2.0, Ur Leukocyte Esterase Negative, Urine RBC Occasional, Urine WBC None, Ur Squamous Epith Cells None, Urine Bacteria None 05/01/25 10:57 05/01/25 10:57 Orders (Tests/Meds): ED MEDICATIONS Discontinued Medications Generic Name Dose Route Start Last Admin Trade Name Percyq PRN Reason Stop Dose Admin Hydromorphone HCl 0.5 mg 05/01/25 12:16 05/01/25 12:26 Hydromorphone 2mg/Ml Syringe IV 05/01/25 12:17 0.5 mg ONCE ONE Administration Lactated Ringer's 1,000 mls @ 999 mls/hr 05/01/25 12:30 05/01/25 13:32 Lactated Ringer's 1000 Ml Bag IV 05/01/25 13:30 Infused .Q1H1M ROGELIO Infusion Iopamidol 75 ml 05/01/25 12:41 05/01/25 12:42 Iopamidol-370 (76%);100ml Bottle IV 05/01/25 12:42 75 ml ONCE ONE Administration Ondansetron HCl 4 mg 05/01/25 12:16 05/01/25 12:26 Ondansetron 4mg/2ml Vial IV 05/01/25 12:17 4 mg ONCE ONE Administration Sodium Chloride 10 ml 05/01/25 12:41 05/01/25 12:42 Sodium Chloride 0.9% 10ml Syr (Rad Only) IV 05/01/25 12:42 10 ml ONCE ONE Administration ORDERS Category Date Time Status CT abdomen pelvis w con Stat Cat Scan 05/01/25 12:06 Completed POCUS Point of Care (ER Only) Stat Exams 05/01/25 11:55 Completed Ammonia Stat Lab 05/01/25 10:57 Completed Bilirubin,Direct Stat Lab 05/01/25 10:57 Completed Complete Blood Count Auto Diff Stat Lab 05/01/25 10:57 Completed Comprehensive Metabolic Panel Stat Lab 05/01/25 10:57 Completed GGT [Gamma Glutamyl Transpeptidase] Stat Lab 05/01/25 10:57 Completed Troponin I Q3H Lab 05/01/25 10:57 Completed Troponin I Q3H Lab 05/01/25 14:00 Ordered UA [Urinalysis and Microscopic] Stat Lab 05/01/25 11:01 Completed Medical Decision Narrative: 65-year-old with above history and physical bedside ultrasound did demonstrate a single stone that was mobile within the gallbladder but no evidence of any cholecystitis his anterior gallbladder wall was normal and there was no pericholecystic fluid he did have some tenderness in this area. The possible this is the cause of his symptoms but we will get a CT scan for further evaluation and management of other pathology such as worsening of his liver tumor burden bowel obstructions appendicitis etc. Contrasted CT scan has been ordered. Pain medicine nausea medicine will also be administered patient will be reassessed shortly. CT scan was performed which I personally interpreted also reviewed radiology reads and there is a large dependent gallstone in the gallbladder neck but there is also much more impressive anterior gallbladder wall thickening measuring 7 mm in comparison with the bedside ultrasound which seems significantly worse than previous CT scans in comparison here. Given the fact that patient is focally tender in this region there is stones and interlobular wall thickening that has worsened objectively on serial CAT scans this is concerning for acute cholecystitis. Of note patient also has worsening postobstructive pattern with his labs AST is trending up alk phos is trending up total bili is trending up and direct bilirubin is rising still not direct predominant and may be acute hepatocellular injury or intrinsic within the liver itself but will require further workup and evaluation by multiple specialist including possibility of oncology and surgical oncology gastroenterology general surgery etc. Thus after discussing the case with my general surgeon here we both felt that the patient would be better served at a tertiary care referral center where there is multiple specialist who can weigh in on this. Patient is agreeable to this plan I will first discussed the case with given the fact that he is manage there is in the past. Reassessment 207 patient was accepted by Jane Stanley at [facility] transfer center to the [place] emergency department. Working diagnosis is acute cholecystitis patient possibly has choledocholithiasis and obviously has progressively worsening hepatocellular carcinoma which may be contributory to the patient's pain and obstructive pattern as well. Procedures Miscellaneous Procedure Procedure Performed: Limited RUQ ultrasound Indication: Abdominal pain Identified structures: -Gallbladder -Gallbladder wall -Common bile duct -Liver Findings: Positive sonographic Rosario's there was a single gallstone present that was mobile within the gallbladder initially in the fundus but mobilized into the neck in real-time no evidence of anterior gallbladder wall thickening as it was 0.3 common bile duct was not visualized no pericholecystic fluid Impression: Cholelithiasis without any definitive evidence of acute cholecystitis Images were saved to permanent archive The study was technically adequate CPT 91451-94 This study was performed by me, and I personally interpreted all images/videos. Based on my clinical judgement, these images were adequate and did not necessitate further imaging. Critical Care Critical Care Time Critical Care Time: Yes Attestation: On 05/01/25, the high probability of a clinically significant, sudden or life threatening deterioration of the following system(s) required my full and direct attention, intervention and personal management. The time I documented below is in addition to time spent performing reported procedures but includes the following listed in this critical care notation. Total Time Total Critical Care Time: 35
[2025-05-01 12:20] LABS: Bilirubin,Direct 1.4 mg/dl (0.0-0.4); Gamma Glutamyl Transpeptidase 108 U/L (15-73)
[2025-05-01] MEDS: LACTATED RINGERS 1000ML 1,000 ML 999 ML IV (12:25)
[2025-05-01] MEDS: ONDANSETRON 4MG/2ML VIAL 4 MG IV (12:26)
[2025-05-01] MEDS: HYDROMORPHONE 2MG/ML SYRINGE 0.5 MG IV (12:26)
[2025-05-01] MEDS: SODIUM CHLORIDE 0.9% 10ML SYR (RAD ONLY) 10 ML IV (12:42)
[2025-05-01] MEDS: IOPAMIDOL-370 (76%);100ML BOTTLE 75 ML IV (12:42)
[2025-05-01 13:02] VITALS: BP 127/53; PULSE 71; O2SAT 99
[2025-05-01 13:30] VITALS: BP 124/50; PULSE 78; O2SAT 97
--- NOTE | 2025-05-01 13:46 | PC.NURSE ---
paged general surgery at this time.
--- NOTE | 2025-05-01 13:48 | PC.NURSE ---
ER MD on phone with general surgery [employer] data [employer] architect
--- NOTE | 2025-05-01 13:51 | PC.NURSE ---
calling [facility] at this time.
--- NOTE | 2025-05-01 13:51 | PC.NURSE ---
power sharing images to [employer]
[2025-05-01 14:01] VITALS: BP 134/47; PULSE 72; O2SAT 97
--- NOTE | 2025-05-01 14:02 | PC.NURSE ---
talking to [facility] at this time.
[2025-05-01 14:30] VITALS: BP 135/65; PULSE 75; O2SAT 95
--- NOTE | 2025-05-01 14:46 | PC.NURSE ---
report called to NIURKA Trevizo at ER
[2025-05-01 15:46] VITALS: BP 119/57; PULSE 64; RESP 20; TEMP 37.2; O2SAT 95
== END 2025-05-01 15:50 | disposition other institution (70) ==
PROVIDERS: Emergency Provider Student in an Organized Health Care Education/Training Program; PCP Family Medicine
DX: K81.0 Acute cholecystitis (principal); R10.11 Right upper quadrant pain; C22.0 Liver cell carcinoma; E78.5 Hyperlipidemia, unspecified; I10 Essential (primary) hypertension
CPT/HCPCS: 74177; 80053; 81001; 82140; 82248; 82977; 84484; 85025; 96361; 96374; 96375; 99284; 99291; J1171; J2405; J7120; Q9967

== ENCOUNTER 2025-05-08 11:45 | Outpatient (CLI) | payer MEDICARE, MEDICAID, SELFPAY ==
--- OUTSIDE RECORDS SUMMARY | 2016-03-04 08:15 | XMS_ITS | Encounter Summary ---
Author Organization [place] [address] Care Team Providers Care Neuro Psych Sales Specialist Name Role Phone Jan Sin MD Unavailable [phone] Carlton James DO Primary Care Provide r Macario Pryor MD Unavailable Unavailabl e Encounter Details Date Type Department Care Team (Latest Contact Info) Description 03/04/2016 8:15 AM EDT Hospital Encounter [facility] [address] [facility] [place] [address] Poppy Quintero MD [address] [place], [place] [phone] Left without seen Social History Tobacco Use [...] 3:32 PM EDT Jer Sena RN * [place] Suicide Severity Rating Scale (Q shift for [...] documented as of this encounter Care Teams Neuro Psych Sales Specialist Relationship Specialty Start Date End Date Carlton James DO [address] [place] [address] PCP - General Family Medicine 05/01/15 11/26/16 Macario Pryor MD [address] [place] [address] PCP - Hematology/Oncology Internal Medicine-Medical Oncology 11/12/15 Jan Sin MD [address] [place] [address] [address] [place], [place] [id number] Internal Medicine-Cardiovascul ar Disease 08/28/14 documented as of this encounter
--- OUTSIDE RECORDS SUMMARY | 2025-03-14 10:00 | XMS_ITS | Encounter Summary ---
Author Organization Healthcare Address [address] [place] [address] Care Team Providers Care Tombstone Erector Name Role Phone Isabella Saucedo MARKETING DATABASE CONSULTANT Unavailable [phone] Jeannie Mcmillan RN Unavailable [phone] Ebony Shoemaker Unavailable [phone] Reason for Visit * Reason Comments Liver Lesion * Consultation (Routine) - Closed Specialty Diagnoses / Procedures Referred By Vicente t Referred To Contact Transplant Diagnoses Elevated AFP Liver lesion Hepatic cirrhosis, unspecified hepatic cirrhosis type, unspecified whether ascites present (CMS/HCC) Isabella Saucedo, MARKETING DATABASE CONSULTANT [address] [place] [address] Phone: tel: fax: [facility] [address] [address] Phone: tel: fax: Referral ID Status Reason Start Date Expiration Date V isits Requested Visits Authorized [id number] Closed Specialty Services Required 03/06/2025 09/05/2026 1 1 Encounter Details Date Type Department Care Team (Late st Contact Info) Description 03/14/2025 10:00 AM EDT Office Visit [facility] [address] [address] Peter Do MD [address] [address] HCC (hepatocellular carcinoma) (Primary Dx) Social History Tobacco Use Types Packs/Day Years Used Date Smoking Tobacco: Never Assessed PHQ-2 Answer Date Recorded Patient Health Questionnaire-2 Score 0 03/14/2025 Sex and Gender Information Value Date Recorded Sex Assigned at Male 05/01/2025 5:02 PM EDT Legal Sex Male 7:50 PM EDT Gender Identity Not on file Sexual Orientation Not on file documented as of this encounter Last Filed Vital Signs Vital Sign Reading Time Taken Comments Blood Pressure 115/57 03/14/2025 9:04 AM EDT Pulse 69 03/14/2025 9:04 AM EDT Temperature 36.4 C (97.6 F) 03/14/2025 9:04 AM EDT Respiratory Rate 16 03/14/2025 9:04 AM EDT Oxygen Saturation 99% 03/14/2025 9:04 AM EDT Inhaled Oxygen Concentration - - Weight 62.4 kg (137 lb 9.1 oz) 03/14/2025 9:04 A M EDT Height 172.7 cm (5' 8 ) 03/14/2025 9:04 AM EDT Body Mass Index 20.92 03/14/2025 9:04 AM EDT documented in this encounter Functional Status * Over the past 2 weeks, how often have you been bothered by any of the following problems? Question Answer Date of Assessment Author Little interest or pleasure in doing things Not at all 03/14/2025 9:07 AM EDT Shari Moseley Feeling down, depressed, or hopeless Not at all 03/14/2025 9:07 AM EDT Shari Moseley Patient Health Questionnaire -2 Score 0 03/14/2025 9:07 AM EDT Shari Moseley documented as of this encounter Miscellaneous Notes * Progress Notes - Briana Calvert MD - 03/14/2025 10:00 AM EDT Images from the original note were not included. Patient Name: Rl Steward Date of : 1960 Referring: Isabella Saucedo Coordinator: Angelita Reeves Chief Complaint: Evaluation for LI-RADS TIV HISTORY OF PRESENT ILLNESS: The patient is a 64 y.o.-year-old male w/ PMHx cirrhosis, [place], CAD s/p CABG x4 with re-stenosis withrevision, COPD, HTN, HFmrEF, central cord syndrome, inguinal hernia, cholelithiasis presenting for evaluation of LI-RADS TIV found on CT scan on 02/09/25. Pt reports he was diagnosed with fatty liver disease 4-5 years ago and was told he had cirrhosis in November 2024. Reports heavy alcohol use for 15 years but quit 20 years ago. He denies h/o ascites, hepatic encephalopathy, or variceal bleeding. Reports father had cirrhosis as well. Today, pt reports he overall feels well. Notes some constipationbut improved with senna. He c/o decreased appetite, weight loss, and intermittent RUQ abd pain (notcurrently endorsing). He denies fevers, chills, nausea, vomiting. Of note, pt was admitted to in November 2024 after falling down a flight of stairs while carrying aTV. Diagnosed with multiple facial fractures and central cord syndrome. He denies any other falls. The patient is accompanied by spouse, son, and grandson. Past Medical History[1] Surgical History[2] Family History[3] SOCIAL HISTORY: Tobacco: Tobacco Use: High Risk (12/27/2024) Received from [facility] Patient History Smoking Tobacco Use: Every Day Smokeless Tobacco Use: Never Passive Exposure: Not on file Alcohol: Alcohol Use: Not At Risk (12/07/2024) [facility] from [facility] Q1: How often do you have a drink containing alcohol?: 2-4 times a month Q2: How many drinks containing alcohol do you have on a typical day when you are drinking?: 1 or 2 Q3: How often do you have six or more drinks on one occasion?: Never Illicit drug use: Social History Substance and Sexual Activity Drug Use Not on file Living: with family Occupation: retired Primary Caregiver: self Review of Systems REVIEW OF SYSTEMS: A comprehensive review of systems was negative except for items checked below: [] Fever [] Weight gain [] Arthralgias [] Lymphadenopathy [x] Weight loss [x] Lumbago [] Headache [] Dysphagia [x] Poor circulation [] Visual disturbances [] Dyspepsia [] Swelling in legs or feet [] Eye Pain or Redness [] Nausea or vomiting [x] Bruising [x] Hearing Loss [] Abdominal pain [] Chills [] Dizziness [] Diarrhea [] Night sweats [] Sinus Problems [x] Constipation [] Rashes [] Nose Bleeds [] Hematochezia [] Moles [] Bleeding gums [x] Anorexia [] Itching [] Mouth sores [] Polydipsia [] Headaches [] Hoarseness [] Dysuria [] Slurred speech [] Breast lump [] Urinary Hesitation [] Personality changes [] Abnormal nipple discharge [] Incomplete voiding [] Depression [] Persistent cough [] Polyuria [] Memory disturbances [] Coughing up blood [] Enuresis [x] Fatigue [] Shortness of breath [] Polyuria [x] Dizziness or loss of balance [] Wheezing [] Tremors [] Weakness [] Chest pain or pressure [x] Myalgias [] Seizures [] Palpitations [] Numbness or tingling [] Dyspnea on exertion [x] Claudication [x] Insomnia [] Syncope [] NONE Physical Exam Visit Vitals BP 115/57 Pulse 69 Temp 36.4 ??C (97.6 ??F) Resp 16 Ht 1.727 m (5' 8 ) Wt 62.4 kg (137 lb 9.1 oz) SpO2 99% BMI 20.92 kg/m?? BSA 1.73 m?? PHYSICAL EXAM: Gen: No acute distress, resting comfortably in office chair Skin: Warm, dry, no rashes or lesions, + well healed surgical scar from heart surgery and hernia repair HEENT: Normocephalic, atraumatic, EOMI, pupils symmetrical, sclera anicteric CV: Well perfused peripherally with regular rate and rhythm Pulm: Normal rate and effort, symmetrical chest rise, no accessory muscle use Abd: Soft, non-tender, non-distended MSK: No joint swelling, deformity, or tenderness Neuro: AAOx4, CN II-XII grossly intact, no obvious focal deficits Psych: Cooperative, normal mood and congruent affect PERTINENT LABS & IMAGING: Labs in last 18 hours CBC WBC 5.56 Hb 15.9 Plt 96 (L) Hct 48.7 ANC ?? INR 1.0, PTT ??, Anti-Xa ?? BMP Na 142 Cl 102 BUN 12 Glu 104 (H) K 3.8 Co2 28 Cr 0.80 Ca 9.8 iCa ?? Mg ??, Phos ?? Lactate ?? LFT AST 78 (H) AlkPhos 210 (H) T Prot 8.0 (H) ALK 50 Bili 0.8 Alb ?? D.Bili ?? 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 Please consider tumor board discussion. 2.Additional findings as above ASSESSMENT AND PLAN: The patient is a 64 y.o.-year-old male w/ PMHx cirrhosis, [place], CAD s/p CABG x4 with re-stenosis withrevision, COPD, HTN, HFmrEF, central cord syndrome, inguinal hernia, cholelithiasis presenting for evaluation of LI-RADS TIV found on CT scan on 02/09/25. His MELD 3.0 score today is 6. No history of d ecompensation. AFP today is 1098, significantly greater than 174 in December 2024. Plan: - CT chest ordered to assess for possible metastasis - CT on 01/12: Rounded opacities (largest measures 3.3 cm) are present in the left lower lobe, new since the prior CT of October. Given the rapid development these likely represent pneumonia, although neoplasm is not excluded. Recommend follow-up chest CT in 3 months for further evaluation. - Will discuss pt at tumor board; consider locoregional therapy and/or systemic therapy - Pt is not a candidate for surgical resection at this time due to his LI-RADS TIV and cirrhosis [1] History reviewed. No pertinent past medical history. [2] Past Surgical History: Procedure Laterality Date BACK SURGERY 1997 CARDIAC SURGERY 2003 CARDIAC SURGERY 2005 HERNIA REPAIR 1999 Chest Area NECK SURGERY 2024 [3] History reviewed. No pertinent family history. Cosigned by Peter Do MD at 03/16/2025 10:51 AM EDT Associated attestation - Peter Do MD - 03/16/2025 10:51 AM EDT I saw and evaluated the patient with the resident/fellow. I discussed the case with the resident/fellow and agree with the findings and plan as documented. 64 yo with cirrhosis and HCC with TIV. AFP elevated. I discussed the case in multidisciplinary tumor board on 03/16/25 in presence of oncologist Dr. Barber, IR physician Dr. Ham, and radiologist . Since the tumor involves a limited area of liver without signs of intrahepatic or extrahepatic metastasis, combination therapy with systemic and y-90 was recommended. We will refer patient to [facility] Dr. Gonzáles in patient's locality to start atezolizumab therapy. Bevacizumab will not be started at this time so that patient can undergo simultaneous y-90 treatment with IR at . Peter Do MD documented in this encounter Plan of Treatment Not on file documented as of this encounter Visit Diagnoses Diagnosis HCC (hepatocellular carcinoma)- Primary Malignant neoplasm of liver, primary documented in this encounter Additional Health Concerns Assessment Noted Time A fall risk assessment has been complete d for the patient 03/14/2025 9:07 AM EDT A Body Mass Index follow-up plan has been documented for the patient 03/16/2025 10:51 AM EDT documented as of this encounter Care Teams Tombstone Erector Relationship Specialty Start Date End Date Isabella Saucedo APRN [address] [place] [address] Referring Physician 02/26/25 Jeannie Mcmillan, RN CH-TRANSPLANT ADMINISTRATION [address] [place] [address] Registered Nurse Transplant Surgery 03/08/25 [place] [address] Registered Nurse Transplant Surgery 03/08/25 documented as of this encounter
--- OUTSIDE RECORDS SUMMARY | 2025-03-14 11:20 | XMS_ITS | Encounter Summary ---
Author Organization Healthcare Address [address] [place] [address] Care Team Providers Care Facilities Management Executive Name Role Phone LewisIsabella Phong PRINTER MAINTAINER Unavailable [phone] Jeannie Mcmillan RN Unavailable [phone] Ebony Shoemaker Unavailable [phone] Reason for Referral * Imaging (Routine) - Closed Specialty Diagnoses / Procedures Referred By Contac t Referred To Contact Radiology Diagnoses Elevated AFP Liver lesion Hepatic cirrhosis, unspecified hepatic cirrhosis type, unspecified whether ascites present (CMS/HCC) Procedures CT CHEST WO IV CONTRAST Peter Do MD [address] [address] Phone: tel: fax: Referral ID Status Reason Start Date Expiration Date Visits Re quested Visits Authorized [id number] Closed 03/14/2025 09/13/2026 1 1 Reason for Visit * Imaging (Routine) - Closed Specialty Diagnoses / Procedures Referred By Contac t Referred To Contact Radiology Diagnoses Elevated AFP Liver lesion Hepatic cirrhosis, unspecified hepatic cirrhosis type, unspecified whether ascites present (CMS/HCC) Procedures CT CHEST WO IV CONTRAST Peter Do MD [address] [address] Phone: tel: fax: Referral ID Status Reason Start Date Expiration Date Visits Re quested Visits Authorized [id number] Closed 03/14/2025 09/13/2026 1 1 Encounter Details Date Type Department Care Team (Latest Contact Info) Description 03/14/2025 11:20 AM EDT - 03/14/2025 11:59 PM EDT Hospital Encounter [facility] [address] [place] [address] Elevated AFP; Liver lesion; Hepatic [...] documented as of this encounter Care Teams Facilities Management Executive Relationship Specialty Start Date End Date Isabella Saucedo APRN [address] [place] [address] Referring Physician 02/26/25 Jeannie Mcmillan, RN [facility] [address] [place] [address] Registered Nurse Transplant Surgery 03/08/25 Ebony Shoemaker [place] [id number] Registered Nurse Transplant Surgery 03/08/25 documented as of this encounter
--- OUTSIDE RECORDS SUMMARY | 2025-03-20 16:39 | XMS_ITS | Encounter Summary ---
Author Organization Healthcare Address [address] [place] [address] Care Team Providers Care Boring Mill Operator Name Role Phone Isabella Saucedo CAR PINCHER Unavailable [phone] Jeannie Mcmillan RN Unavailable [phone] Ebony Shoemaker Unavailable [phone] Pcp, No Primary Care Provider Unavailabl e Reason for Visit * Reason Comments Abdominal Pain * Auth/Cert (Routine) Specialty Diagnoses / Procedures Referred By Vicente alaniz Referred To Contact Diagnoses Hepatocellular carcinoma hepatocellular carcinoma Navi Tripathi MD [address] [place] [address] Phone: tel: fax: [facility] H Inpatient [address] [place] [address] Phone: tel: Referral ID Status Reason Start Date Expiration Date Visits Re quested Visits Authorized [id number] 1 1 Encounter Details Date Type Department Care Team (Latest Contact Info) Description 03/20/2025 4:39 PM EDT - 03/21/2025 6:51 PM EDT Hospital Encounter [facility] Inpatient [address] [place] [address] Clotilde Saleh MD [address] [place] [address] Navi Tripathi MD [address] [place] [address] Lolly Flaherty MD [address] [place] [phone] Epigastric pain (Primary Dx); Hepatocellular carcinoma; Alcoholic [...] PCP name and Address: Pcp, No [address] [facility] / [facility] [id number] Referring provider name and address: Monalisa Elizondo, CAR PINCHER [address] [place] [address] Chief Concern, Brief History of Present Illness, [...] Ellipta 100-62.5-25 MCG/ACT aerosol powder Generic drug: [id number] INHALE 1 PUFF INTO THE LUNGS DAILY AT 0900. Where to Get Your Medications These medications were sent to [facility] [place], [place] - [address] [facility] [id number] calcium carbonate 500 MG chewable tablet HYDROmorphone [...] 04, 2025 at 1:00PM Dr. Rodney Gonzáles [facility] Specialty Clinic (Oncology) [address] [place] [address] * Care Plan - Sandy Moseley RN [...] (see comments) Patient/Family Anticipated Services at Transition: family service caseworker Patient/Family Anticipates Transition to: home with family [...] and grandson on the bed side when band edger visited and they were appreciative of band edger's visit. Prayer and nicole is important to them. Forestry Laborer supported them emotionallyand spiritually. Referral From: Forestry Laborer Initiated Pastoral Care Provided For: Patient, Spouse, [...] and gratitude, Emotional support, Introduced Patient/Family to Forestry Laborer Services, Supportive Listening, Spiritual support Pastoral Care Outcomes: Patient Outcomes: Expresses acceptance, Demonstrates lower level of Anxious(ness), Is knowledgeableabout Machine Setter Automatic Services, Being at peace, Demonstrates and/or verbalizes increased comfort, Endorses increased sense of connection, Expresses intent to participate/comply in plan of care, Expresses e motionally release, Is functionally engaged in meaning making, Gratitude, Expresses feeling spiritually nurtured, Communicates increased satisfaction with hospital experience, Identifies spiritual orreligious practices as helpful, Expresses increased trust in medical team and/or plan of care, Appreciative of Forestry Laborer Support, Expresses being seen and heard Cosigned by Azeb Worthy at 03/23/2025 10:36 AM EDT Associated attestation - Azeb Worthy - 03/23/2025 10:36 AM EDT This is to attest band edger internet security specialist chart note has been reviewed and okayed. [...] 03/20/2025 7:52 PM EDTAssociated Order(s): Consult to [facility] Consult to [facility] Consult performed by: Navi Tripathi MD [...] the pain caused him to present to [facility] ED, where CT scan showed interval enlargement [...] 98%. Results Review {Vanishing Link Review Results :[id number] I have reviewed the latest lab and [...] 64 y.o. male with history of cirrhosis, WI, CAD s/p CABG x4 with re-stenosis with revision, COPD, HTN, HFmrEF, central cord syndrome, inguinal hernia, cholelithiasis, recently disagnosed HCC with new central necrosis of tumor on CT at OSH today who presents with Abdominal Pain. Patient took prescription medication prior to arrival. Patient sent from [facility] for concern of tumor necrosis with fistulization to bile ducts. Patient reports epigastric, LUQ, and RUQ abdominal pain and pressure that began last night. He presented to [facility] for evaluation. He had a CT chest [...] noted that the chronic conditions includes cirrhosis, WI, CAD s/p CABG x4 with re-stenosis with [...] NAVI TRIPATHI SUKUMAR A 03/20/251900 Consult to [facility] Medicine [facility] Once Specialty: Internal Medicine Provider: (Not [...] that began last night. Was seen at [facility] and had CT scan of chest and [...] ESS resident, patient to be admitted [facility] medicine and transplant teamwill see him tomorrow. No needs overnight. [MR] 1904 Reached out to hospital medicine for admission [MR] 1917 They agree to admit patient to [place] for multidisciplinary care. They will put in admissionorders and transfer him to [facility]. Patient updated on plan and provided ice [...] transferred to [facility] Admitting/Attending Physician: NAVI TRIPATHI [[id number]] Provider Care Team: JHOANA 11 [[id number]] Are [...] LAB COAGULATION METHOD 03/21/2025 7:00 AM EDT [facility] INR 1.1 0.9 - 1.1 LAB COAGULATION METHOD 03/21/2025 7:00 AM EDT [facility] Blood Venous blood specimen / Unknown Venipuncture / Unknown 03/21/2025 6:32 AM EDT 03/21/2025 6:43 AM EDT Narrative [facility] - 03/21/2025 7:00 AM EDT OPTIMAL INR RANGES FOR PATIENT ON ORAL ANTICOAGULANT THERAPY Prevention of venous thromboembolism INR 2.0 to 3.0 In patients with heart disease: Atrial fibrillation INR 2.0 to 3.0 Valvular heart disease INR 2.0 to 3.0 Tissue heart valves INR 2.0 to 3.0 Mechanical prosthetic valves INR 2.5 to 3.5 Prevention of recurrent WI INR 2.5 to 3.5 us Navi Tripathi MD LAB BLOOD ORDERABLE S Final Result [facility] [address] [place] [address] * (ABNORMAL) Comprehensive metabolic panel (03/21/2025 6:32 AM EDT) Glucose, Plasma 107(H) 74 - 99 mg/dL 03/21/2025 7:11 AM EDT [facility] BUN, Plasma 12 8 - 23 mg/dL 03/21/2025 7:11 AM EDT [facility] Creatinine, Plasma 0.77 0.70 - 1.20 mg/dL 03/21/2025 7:11 AM EDT [facility] BUN/Creatinine Ratio 16 03/21/2025 7:11 AM EDT [facility] Sodium, Plasma 139 136 - 145 mmol/L 03/21/2025 7:11 AM EDT [facility] Potassium, Plasma 4.6 3.6 - 4.9 mmol/L 03/21/2025 7:11 AM EDT [facility] Comment:Hemolyzed, result ma y be falsely increased. Chloride, Plasma 105 97 - 107 mmol/L 03/21/2025 7:11 AM EDT [facility] CO2, Plasma 23 22 - 29 mmol/L 03/21/2025 7:11 AM EDT [facility] Anion Gap 11 6 - 16 mmol/L 03/21/2025 7:11 AM EDT [facility] Total Calcium, Plasma 9.4 8.9 - 10.2 mg/dL 03/21/2025 7:11 AM EDT [facility] Total Protein 7.0 6.3 - 7.9 g/dL 03/21/2025 7:11 AM EDT [facility] Albumin, Plasma 3.6 3.5 - 5.2 g/dL 03/21/2025 7:11 AM EDT [facility] AST, Plasma 621(H) 10 - 50 U/L 03/21/2025 7:11 AM EDT [facility] Comment:Hemolyzed, result ma y be falsely increased. ALT, Plasma 48 10 - 50 U/L 03/21/2025 7:11 AM EDT [facility] Alkaline Phosphatase, Plasma 232(H) 40 - 115 U/L 03/21/2025 7:11 AM EDT [facility] Total Bilirubin, Plasma 0.6 0.2 - 1.1 mg/dL 03/21/2025 7:11 AM EDT [facility] eGFRcr 98.7 mL/min/1.7 3m*2 03/21/2025 7:11 AM EDT [facility] Comment:Reported eGFRcr in m L/min/1.73m2 is based the CKD-EPI 2020 equation that does not use a race coefficient. Blood Venous blood specimen / Unknown Venipuncture / Unknown 03/21/2025 6:32 AM EDT 03/21/2025 6:43 AM EDT Navi Tripathi MD LAB BLOOD ORDERABLE S Final Result [facility] [address] [place] [address] * (ABNORMAL) CBC and Differential (03/21/2025 6:32 AM EDT) WBC Count 6.12 3.70 - 10.30 10*3/uL LAB HEMATOLOGY METHOD 03/21/2025 6:58 AM EDT [facility] RBC Count 4.62 4.60 - 6.10 10*6/uL LAB HEMATOLOGY METHOD 03/21/2025 6:58 AM EDT [facility] HGB 15.2 13.7 - 17.5 g/dL LAB HEMATOLOGY METHOD 03/21/2025 6:58 AM EDT [facility] HCT 45.4 40.0 - 51.0 % LAB HEMATOLOGY METHOD 03/21/2025 6:58 AM EDT [facility] Platelet Count 82(L) 155 - 369 10*3/uL LAB HEMATOLOGY METHOD 03/21/2025 6:58 AM EDT [facility] MCV 98 79 - 98 fL LAB HEMATOLOGY METHOD 03/21/2025 6:58 AM EDT [facility] MCH 32.9(H) 26.0 - 32.0 pg LAB HEMATOLOGY METHOD 03/21/2025 6:58 AM EDT [facility] MCHC 33.5 30.7 - 35.5 g/dL LAB HEMATOLOGY METHOD 03/21/2025 6:58 AM EDT [facility] RDW 16.8(H) 11.5 - 14.5 % LAB HEMATOLOGY METHOD 03/21/2025 6:58 AM EDT [facility] MPV 12.2 8.8 - 12.5 fL LAB HEMATOLOGY METHOD 03/21/2025 6:58 AM EDT [facility] nRBC 0.0 <=0.0 per 100 WBCs LAB HEMATOLOGY METHOD 03/21/2025 6:58 AM EDT [facility] Differential Type Automated LAB HEMATOLOGY METHOD 03/21/2025 6:58 AM EDT [facility] Neutrophils % 55 % LAB HEMATOLOGY METHOD 03/21/2025 6:58 AM EDT [facility] Lymphocytes % 24 % LAB HEMATOLOGY METHOD 03/21/2025 6:58 AM EDT [facility] Monocytes % 17 % LAB HEMATOLOGY METHOD 03/21/2025 6:58 AM EDT [facility] Eosinophils % 2 % LAB HEMATOLOGY METHOD 03/21/2025 6:58 AM EDT [facility] Basophils % 1 % LAB HEMATOLOGY METHOD 03/21/2025 6:58 AM EDT [facility] Immature Granulocytes % 1 % LAB HEMATOLOGY METHOD 03/21/2025 6:58 AM EDT [facility] Neutrophils Absolute 3.46 1.60 - 6.10 10*3/uL LAB HEMATOLOGY METHOD 03/21/2025 6:58 AM EDT [facility] Lymphocytes Absolute 1.45 1.20 - 3.90 10*3/uL LAB HEMATOLOGY METHOD 03/21/2025 6:58 AM EDT [facility] Monocytes Absolute 1.03(H) 0.30 - 0.90 10*3/uL LAB HEMATOLOGY METHOD 03/21/2025 6:58 AM EDT [facility] Eosinophils Absolute 0.11 0.00 - 0.50 10*3/uL LAB HEMATOLOGY METHOD 03/21/2025 6:58 AM EDT [facility] Basophils Absolute 0.04 0.00 - 0.10 10*3/uL LAB HEMATOLOGY METHOD 03/21/2025 6:58 AM EDT [facility] Immature Granulocytes Absolute 0.03 0.00 - 0.06 10*3/uL LAB HEMATOLOGY METHOD 03/21/2025 6:58 AM EDT [facility] Blood Venous blood specimen / Unknown Venipuncture / Unknown 03/21/2025 6:32 AM EDT 03/21/2025 6:43 AM EDT [facility] - 03/21/2025 6:58 AM EDT Therapeutic decision making should be based on absolute values, rather than percentages. us Navi Tripathi MD LAB BLOOD ORDERABLE S Final Result [facility] [address] [place] [address] * Troponin T, High Sensitivity, 2 Hour, Plasma (03/20/2025 10:54 PM EDT) Pathologist [facility] Troponin T, High Sensitivity, 2 Hour 10 <19 ng/L 03/20/2025 11:31 PM EDT [facility] Blood Venous blood specimen / Unknown Venipuncture / Unknown 03/20/2025 10:54 PM EDT 03/20/2025 11:04 PM EDT Navi Tripathi MD LAB BLOOD ORDERABLE S Final Result [facility] [address] [place] [address] * Troponin now and 120 min (03/20/2025 6:51 PM EDT) Pathologist [facility] Troponin T, High Sensitivity, 0 Hour 9 <19 ng/L 03/20/2025 7:35 PM EDT [facility] Blood Venous blood specimen / Unknown Venipuncture / Unknown 03/20/2025 6:51 PM EDT 03/20/2025 7:09 PM EDT Adrienne HURTADO LAB BLOOD ORDERABLES Courtney l Result Performing Organization Address [facility] Co de Phone Number [facility] [address] [place] [address] * ED HIV 1/2 Antibody/Antigen Screen w/Reflex to HIV 1/2 Differentiation (03/20/2025 6:51 PM EDT) [facility] HIV 1 & 2 Antibody/Antigen Screen Non Reactive Non Reactive 03/20/2025 8:05 PM EDT [facility] Comment:Screening for HIV 1 & 2 antibodies, and P24 antigen is NONREACTIVE. No confirmatory testing is required. Blood Venous blood specimen / Unknown Venipuncture / Unknown 03/20/2025 6:51 PM EDT 03/20/2025 7:09 PM EDT Adrienne HURTADO LAB BLOOD ORDERABLES Courtney l Result Performing Organization Address City/[facility]/ZIP Co de Phone Number [facility] [address] [place] [address] * Hepatitis C Antibody - ED (03/20/2025 6:51 PM EDT) [facility] Hepatitis C Antibody Negative Negative 03/20/2025 8:01 PM EDT [facility] Blood Venous blood specimen / Unknown Venipuncture / Unknown 03/20/2025 6:51 PM EDT 03/20/2025 7:09 PM EDT Adrienne A [employer] PA LAB BLOOD ORDERABLES Courtney l Result Performing Organization Address City/[facility]/ZIP Co de Phone Number [facility] [address] [place] [address] * APTT (03/20/2025 6:51 PM EDT) [facility] aPTT 31 25 - 35 sec 03/20/2025 7:25 PM EDT [facility] Blood Venous blood specimen / Unknown Venipuncture / Unknown 03/20/2025 6:51 PM EDT 03/20/2025 7:08 PM EDT us Adrienne A [employer] PA LAB BLOOD ORDERABLES Courtney l Result Performing Organization Address [facility] de Phone Number [facility] [address] [place] [address] * C-Reactive protein (03/20/2025 6:51 PM EDT) [facility] CRP, Plasma 5.2 <=8.0 mg/L 03/20/2025 [...] ORDERABLES Courtney l Result Performing Organization Address City/[facility]/ZIP Co de Phone Number [facility] [address] [place] [address] * Lactic acid, venous (03/20/2025 6:51 PM EDT) Pathologist [facility] Lactate, Venous, Whole Blood 1.7 0.5 - 2.2 mmol/L LAB HEMATOLOGY METHOD 03/20/2025 7:12 PM EDT [facility] Blood Venous blood specimen / Unknown Venipuncture / Unknown 03/20/2025 6:51 PM EDT 03/20/2025 7:08 PM EDT [facility] [employer] LAB BLOOD ORDERABLES Courtney l Result [facility] [address] [place] [address] * Lipase (03/20/2025 6:51 PM EDT) [facility] Lipase, Plasma 19 19 - 63 U/L 03/20/2025 7:35 PM EDT [facility] Blood Venous blood specimen / Unknown Venipuncture / Unknown 03/20/2025 6:51 PM EDT 03/20/2025 7:09 PM EDT [employer] PA LAB BLOOD ORDERABLES Courtney l Result [facility] [address] [place] [address] * PT-INR (03/20/2025 6:51 PM EDT) [facility] Prothrombin Time 13.8 12.0 - 14.3 [...] INR 2.5 to 3.5 Prevention of recurrent [place] INR 2.5 to 3.5 Adrienne HURTADO LAB BLOOD ORDERABLES Courtney ferrari Result [facility] [address] [place] [id number] * (ABNORMAL) CMP (03/20/2025 6:51 PM EDT) Glucose, Plasma 89 74 - 99 mg/dL 03/20/2025 7:47 PM EDT [facility] BUN, Plasma 15 8 - 23 mg/dL 03/20/2025 7:47 PM EDT [facility] Creatinine, Plasma 0.77 0.70 - 1.20 mg/dL 03/20/2025 7:47 PM EDT [facility] BUN/Creatinine Ratio 19 03/20/2025 7:47 PM EDT [facility] Sodium, Plasma 141 136 - 145 mmol/L 03/20/2025 7:47 PM EDT [facility] Potassium, Plasma 3.9 3.6 - 4.9 mmol/L 03/20/2025 7:47 PM EDT [facility] Chloride, Plasma 102 97 - 107 mmol/L 03/20/2025 7:47 PM EDT [facility] CO2, Plasma 26 22 - 29 mmol/L 03/20/2025 7:47 PM EDT [facility] Anion Gap 13 6 - 16 mmol/L 03/20/2025 7:47 PM EDT [facility] Total Calcium, Plasma 9.6 8.9 - 10.2 mg/dL 03/20/2025 7:47 PM EDT [facility] Total Protein 7.4 6.3 - 7.9 g/dL 03/20/2025 7:47 PM EDT [facility] Albumin, Plasma 3.7 3.5 - 5.2 g/dL 03/20/2025 7:47 PM EDT [facility] AST, Plasma 395(H) 10 - 50 U/L 03/20/2025 7:47 PM EDT [facility] Comment:Hemolyzed, result ma y be falsely increased. ALT, Plasma 43 10 - 50 U/L 03/20/2025 7:47 PM EDT [facility] Alkaline Phosphatase, Plasma 210(H) 40 - 115 U/L 03/20/2025 7:47 PM EDT [facility] Total Bilirubin, Plasma 0.7 0.2 - 1.1 mg/dL 03/20/2025 7:47 PM EDT [facility] eGFRcr 98.7 mL/min/1.7 3m*2 03/20/2025 7:47 PM EDT [facility] Comment:Reported eGFRcr in m L/min/1.73m2 is based the CKD-EPI 2020 equation that does not use a race coefficient. Blood Venous blood specimen / Unknown Venipuncture / Unknown 03/20/2025 6:51 PM EDT 03/20/2025 7:09 PM EDT us Adrienne HURTADO LAB BLOOD ORDERABLES Courtney ferrari Result Performing Organization Address City/State/[facility] Co de Phone Number [facility] [address] [place] [address] * (ABNORMAL) CBC w/diff (03/20/2025 6:51 PM EDT) WBC Count 6.84 3.70 - 10.30 10*3/uL LAB HEMATOLOGY METHOD 03/20/2025 7:21 PM EDT [facility] RBC Count 4.63 4.60 - 6.10 10*6/uL LAB HEMATOLOGY METHOD 03/20/2025 7:21 PM EDT [facility] HGB 15.3 13.7 - 17.5 g/dL LAB HEMATOLOGY METHOD 03/20/2025 7:21 PM EDT [facility] HCT 44.8 40.0 - 51.0 % LAB HEMATOLOGY METHOD 03/20/2025 7:21 PM EDT [facility] Platelet Count 79(L) 155 - 369 10*3/uL LAB HEMATOLOGY METHOD 03/20/2025 7:21 PM EDT [facility] MCV 97 79 - 98 fL LAB HEMATOLOGY METHOD 03/20/2025 7:21 PM EDT [facility] MCH 33.0(H) 26.0 - 32.0 pg LAB HEMATOLOGY METHOD 03/20/2025 7:21 PM EDT [facility] MCHC 34.2 30.7 - 35.5 g/dL LAB HEMATOLOGY METHOD 03/20/2025 7:21 PM EDT [facility] RDW 16.5(H) 11.5 - 14.5 % LAB HEMATOLOGY METHOD 03/20/2025 7:21 PM EDT [facility] MPV 11.2 8.8 - 12.5 fL LAB HEMATOLOGY METHOD 03/20/2025 7:21 PM EDT [facility] nRBC 0.0 <=0.0 per 100 WBCs LAB HEMATOLOGY METHOD 03/20/2025 7:21 PM EDT [facility] Differential Type Automated LAB HEMATOLOGY METHOD 03/20/2025 7:21 PM EDT [facility] Neutrophils % 60 % LAB HEMATOLOGY METHOD 03/20/2025 7:21 PM EDT [facility] Lymphocytes % 26 % LAB HEMATOLOGY METHOD 03/20/2025 7:21 PM EDT [facility] Monocytes % 12 % LAB HEMATOLOGY METHOD 03/20/2025 7:21 PM EDT [facility] Eosinophils % 2 % LAB HEMATOLOGY METHOD 03/20/2025 7:21 PM EDT [facility] Basophils % 0 % LAB HEMATOLOGY METHOD 03/20/2025 7:21 PM EDT [facility] Immature Granulocytes % 0 % LAB HEMATOLOGY METHOD 03/20/2025 7:21 PM EDT [facility] Neutrophils Absolute 4.05 1.60 - 6.10 10*3/uL LAB HEMATOLOGY METHOD 03/20/2025 7:21 PM EDT [facility] Lymphocytes Absolute 1.77 1.20 - 3.90 10*3/uL LAB HEMATOLOGY METHOD 03/20/2025 7:21 PM EDT [facility] Monocytes Absolute 0.85 0.30 - 0.90 10*3/uL LAB HEMATOLOGY METHOD 03/20/2025 7:21 PM EDT [facility] Eosinophils Absolute 0.11 0.00 - 0.50 10*3/uL LAB HEMATOLOGY METHOD 03/20/2025 7:21 PM EDT [facility] Basophils Absolute 0.03 0.00 - 0.10 10*3/uL LAB HEMATOLOGY METHOD 03/20/2025 7:21 PM EDT [facility] Immature Granulocytes Absolute 0.03 0.00 - 0.06 10*3/uL LAB HEMATOLOGY METHOD 03/20/2025 7:21 PM EDT [facility] Blood Venous blood specimen / Unknown Venipuncture / Unknown 03/20/2025 6:51 PM EDT 03/20/2025 7:08 PM EDT Narrative [facility] - 03/20/2025 7:21 PM EDT Therapeutic decision making should be based on absolute values, rather than percentages. Adrienne HURTADO LAB BLOOD ORDERABLES Courtney l Result Performing Organization Address City/[facility]/ZIP Co de Phone Number [facility] [address] [place] [address] * EKG now - STAT (adult) (03/20/2025 5:31 PM EDT) EKG DIAGNOSIS CLASS Abnormal MUSE ECG Ventricular Rate 60 BPM MUSE ECG Atrial Rate 60 BPM MUSE ECG ME Interval 176 ms MUSE ECG QRSD Interval 86 ms MUSE ECG QT Interval 422 ms MUSE ECG QTC Interval 422 ms MUSE ECG P [place] 53 degrees MUSE ECG R [place] -37 degrees MUSE ECG T Wave [place] 80 degrees MUSE ECG Diagnosis Atrial-paced rhythm MUSE ECG Diagnosis Left axis deviation MUSE ECG Diagnosis T wave abnormality, consider anterior ischemia MUSE ECG Diagnosis Abnormal ECG MUSE ECG Diagnosis MUSE ECG Diagnosis Confirmed by J Carlos Campbell ([id number]) on 03/20/2025 5:41:58 PM MUSE ECG 03/20/2025 5:31 PM EDT 03/20/2025 5:41 PM EDT Adrienne HURTADO ECG ORDERABLES Final Res ult Performing Organization Address City/[facility] Co de Phone Number MUSE ECG documented [...] documented as of this encounter Care Teams Boring Mill Operator Relationship Specialty Start Date End Date Pcp, Tiki [address] [place] [address] PCP - General Family Medicine 03/20/25 Isabella Saucedo APRN [address] [place] [address] Referring Physician 02/26/25 Jeannie Mcmillan, RN [facility] [address] [place], [place] [id number] Registered Nurse Transplant Surgery 03/08/25 Ebony Shoemaker [place] [phone] Registered Nurse Transplant Surgery 03/08/25 documented as of this encounter
--- OUTSIDE RECORDS SUMMARY | 2025-04-23 09:00 | XMS_ITS | Encounter Summary ---
Author Organization [place] [address] Care Team Providers Care Food Processing Chemist Name Role Phone Jan Sin MD Unavailable [phone] Macario Pryor MD Unavailable Unavailmult[facility]are health e Cr Resendez MD Primary Care Provider [phone] Reason for Visit * Reason Comments Annual Exam Encounter Details Date Type Department Care Team (Late st Contact Info) Description 04/23/2025 9:00 AM EDT Office Visit SEP Luis [facility] [place] [address] Cr Resendez MD [address] [place] [address] TRISTIAN MARTINEZ [address] Encounter for Medicare annual wellness exam (Primary [...] Under treatment with GI and oncology at [facility]. On once monthly chemotherapy atthis time. [...] Currently being treated for hepatocellular carcinoma at [facility] Fall Risk Assessment: Fall Risk Assessment: positive [...] Under treatment with GI and oncology at [facility]. On once monthly chemotherapy atthis time. [...] prostate cancer screening Bilateral impacted cerumen Orders: AL REMOVAL IMPACTED CERUMEN IRRIGATION/LVG UNILAT Cerumen impaction [...] If you have a power of assistant county attorney st[place], we should also have a [...] provided to the patient digitally through their [employer] account or with a paper copy if the patient doesn't have an active MyChart Account. A copy of today's progress note with recommendations below is alsoavailable electronically for patients with an active [employer] account per the Federal Cures Act. TheAVS [...] snare polypectomy; Surgeon: Poppy Quintero MD; Location: [facility]; Service: Endoscopy CORONARY ANGIOPLASTY WITH STENT PLACEMENT 01/04/2024 [facility] EYE SURGERY sandra cataract HERNIA REPAIR NECK SURGERY 12/06/2024 [facility] SPINAL CORD DECOMPRESSION 08/30/1998 UPPER GASTROINTESTINAL ENDOSCOPY N/A 10/30/2015 ESOPHAGOGASTRODUODENOSCOPY with biopsies; Surgeon: Poppy Quintero MD; Location: [facility]; Service: Endoscopy VASCULAR SURGERY spinal cord [...] Tablet by mouth daily. 90 Tablet 3 ddocrkqjyvo-gneuzxoae-olnuluhi (TRELEGY ELLIPTA) 100-62.5-25 mcg Inhl Disk with [...] SHAKE WELL nalOXone (NARCAN) 4 mg/actuation Nasl [place], Non-Aerosol 0.1 mL by Nasal route daily [...] Food Insecurity: Patient Declined (12/07/2024) Received from [facility] Hunger Vital Sign Worried About Running Out of Food in the Last Year: Patient declined Ran Out of Food in the Last Year: Patient declined Transportation Needs: Patient Declined (12/07/2024) Received from [facility] PRAPARE - Transportation Lack of Transportation (Medical): Patient declined Lack of Transportation (Non-Medical): Patient declined Housing Stability: Patient Declined (12/07/2024) Received from [facility] Housing Stability Vital Sign Unable to [...] Type Priority Associated Diagnoses Orde r Schedule AL REMOVAL IMPACTED CERUMEN IRRIGATION/LVG UNILAT AL Charge Routine Bilateral impacted cerumen Ordered: 04/23/2025 [...] 0.08 <=4.00 ng/mL 04/23/2025 3:49 PM EDT [employer] Blood VENOUS BLOOD / Unknown Venipuncture / Unknown 04/23/2025 9:47 AM EDT 04/23/2025 9:47 AM EDT Narrative [facility] [employer] [facility] - 04/23/2025 3:49 PM EDT The Ricky [...] CHEMISTRY ORDERABLES Final Res ult [facility] [employer] [address] [facility] , [place] [address] * LIPID PANEL REFLEX (04/23/2025 9:47 AM EDT) Cholesterol 98 <200 mg/dL 04/23/2025 4:37 PM EDT [employer] Comment: < 200 Desirable 200 - 239 Borderline High >= 240 High Triglyceride 38 <150 mg/dL 04/23/2025 4:37 PM EDT [employer] Comment: < 150 Normal 150 - 199 Borderline High 200 - 499 High >= 500 Very High HDL 40 >=40 mg/dL 04/23/2025 4:37 PM EDT [employer] Comment: > 60 Optimal 40 - 60 Acceptable < 40 Low LDL Calculated 47 <100 mg/dL 04/23/2025 4:37 PM EDT [employer] Comment: < 100 Optimal 100 - 129 Near or above optimal 130 - 159 Borderline High 160 - 189 High >= 190 Very High The National Institutes of Health (NIH) equation is used for all lipid panels that report calculated LDL (LDL-C). Non-HDL-C Calculated 58 <=129 mg/dL 04/23/2025 4:37 PM EDT [facility] [employer] [facility] Comment: <130 Desirable 130-159 Above Desirable 160-189 Borderline High 190-219 High >= 220 Very High Fasting Specimen? Yes None 025 4:37 PM EDT [facility] [employer] [facility] Blood VENOUS BLOOD / Unknown Venipuncture / Unknown 04/23/2025 9:47 AM EDT 04/23/2025 9:47 AM EDT Cr Resendez MD CHEMISTRY ORDERABLES Final Res ult Performing Organization Address [facility] de Phone Number [facility] [address] [facility] , [place] [id number] * TSH REFLEX TO FT4 (04/23/2025 9:47 AM EDT) TSH Reflex 0.889 0.270 - 4.200 mcIU/mL 04/23/2025 4:37 PM EDT [facility] [employer] [facility] Blood VENOUS BLOOD / Unknown Venipuncture / Unknown 04/23/2025 9:47 AM EDT 04/23/2025 9:47 AM EDT Narrative [facility] - 04/23/2025 4:37 PM EDT Ingestion of fernanda doses of biotin (>5 mg/day) taken within 8 hours of drawing blood sample can interfere with this immunoassay test. us Cr Resendez MD CHEMISTRY ORDERABLES Final Res ult Performing Organization Address [facility] de Phone Number [facility] [address] [facility] , [place] [address] * (ABNORMAL) CBC WITH DIFF (04/23/2025 9:47 AM EDT) WBC 7.3 3.7 - 10.3 x10(3)/mcL 04/23/2025 4:08 PM EDT [facility] RBC 4.77 4.60 - 6.10 x10(6)/mcL 04/23/2025 4:08 PM EDT [facility] [employer], [facility] Hgb 15.3 13.7 - 17.5 g/dL 04/23/2025 [...] 4:08 PM EDT [facility] [place] # 1.2(H) 0.3 - 0.9 x10(3)/mcL 04/23/2025 4:08 PM EDT [facility] Eos # Manual 0.0 0.0 - 0.5 x10(3)/mcL 04/23/2025 4:08 PM EDT [facility] Baso # Manual 0.1 0.0 - 0.1 x10(3)/mcL 04/23/2025 4:08 PM EDT [facility] Polychrom Slight 04/23/2025 4:08 PM EDT [facility] [place] Cell Moderate 04/23/2025 4:08 PM EDT [facility] Elliptocyte Occasional 04/23/2025 4:08 PM EDT [facility] Target Cell Occasional 04/23/2025 4:08 PM EDT [facility] Blood VENOUS BLOOD / Unknown Venipuncture / Unknown 04/23/2025 9:47 AM EDT 04/23/2025 9:47 AM EDT us Cr Resendez MD HEMATOLOGY ORDERABLES Final Re sult [facility] [address] [facility] , [place] [address] * (ABNORMAL) COMPREHENSIVE METABOLIC PANEL (04/23/2025 9:47 [...] 04/23/2025 4:37 PM EDT [facility] Total Protein 8.3 6.4 - 8.3 gm/dL 04/23/2025 4:37 PM EDT [facility] Bili Total 1.2 0.2 - 1.4 mg/dL 04/23/2025 4:37 PM EDT [facility] ALT 26 <=41 U/L 04/23/2025 4:37 PM EDT [facility] AST 74(H) <=40 U/L 04/23/2025 4:37 PM EDT [facility] [employer] Alk Phos 142(H) 40 - 129 U/L 04/23/2025 4:37 PM EDT [facility] [employer] eGFR (CKD-EPIcr 2020) 96 >=60 mL/min/1.7 3 m2 04/23/2025 4:37 PM EDT [facility] [employer], [facility] Comment:Estimated GFR was ca lculated using the CKD-EPIcr (2020) equation refit without race. The equation is recommended by the National Kidney Foundation - [place] Society of Nephrology Task Force. Blood VENOUS BLOOD / Unknown Venipuncture / Unknown 04/23/2025 9:47 AM EDT 04/23/2025 9:47 AM EDT us Cr Resendez MD CHEMISTRY ORDERABLES Final Res ult [facility] [employer], [facility] [address] [facility] , [place] [address] * (ABNORMAL) HEMOGLOBIN A1C (04/23/2025 9:47 AM EDT) Hgb A1C 5.7(H) 4.2 - 5.6 % 04/23/2025 5:18 PM EDT [facility] [employer] Est. Avg Glucose 117 mg/dL 04/23/2025 5:18 PM EDT [facility] [employer], [facility] Blood VENOUS BLOOD / Unknown Venipuncture / Unknown 04/23/2025 9:47 AM EDT 04/23/2025 9:47 AM EDT Narrative [employer] - 04/23/2025 5:18 PM EDT REFERENCE RANGE: Normal: 4.0-5.6% Pre-diabetes: 5.7-6.4% Provisional diagnosis of diabetes: >6.4% Hgb F>10% and anything which shortens red cell survival, such as hemolytic anemia, or unstable hemoglobin variants such as HbSS, HbSC, or HbCC, will lower the HbA1c value associated with a given level of glycemic control. us Cr Resendez MD CHEMISTRY ORDERABLES Final Res ult [employer] [address] [facility] , [place] [address] documented in this encounter Visit Diagnoses Diagnosis [...] as of this encounter Care Teams Food Processing Chemist Relationship Specialty Start Date End Date Macario Pryor MD [address] [place] [address] TRISTIAN NAILS [address] PCP - Hematology/Oncology Internal Medicine-Medical Oncology 11/12/15 Cr Resendez MD [address] [place] [address] TRIST[place] MARTINEZ [address] PCP - General Family Medicine 11/24/21 Jan Sin MD [address] [place] [address] TRIST[place] NAILS [address] Internal Medicine-Cardiovascul ar Disease 08/28/14 documented as of this encounter
--- OUTSIDE RECORDS SUMMARY | 2025-04-23 09:30 | XMS_ITS | Encounter Summary ---
Author Organization [place] [address] Care Team Providers Care Variety Saw Operator Name Role Phone Jan Sin MD Unavailable [phone] Macario Pryor MD Unavailable Cr Rodriguez MD Primary Care Provider [phone] Reason for Visit * Reason Comments Care Management - Face To Face Care Transition Advance Care Planning Encounter Details Date Type Department Care Team (Latest Contact Info) Description 04/23/2025 9:30 AM EDT Clinical Support [facility] [place] [facility] [address] [place] [address] Elizabeth Reynoso, NIURKA Encounter for support [...] presents for follow up visit with Office Deputy County Clerk (OCC) Reason for visit: Advanced Care Planning Visit Type: Face to Face Assessment: electronic funds transfer coordinator met with patient and spouse to [...] Educated patient on: Advanced Care Planning Handouts: [place] Living Will x 2 copies Handouts provided in person Care Coordination Business Card Goals: One-time assessment Next Steps: Deputy County Clerk contact information given / reviewed Notes: No identified SDOH concerns after SDOH assessment review documented in this encounter Miscellaneous Notes * ACP (Advance Care Planning) - Elizabeth Reynoso RN - 04/23/2025 9:30 AM EDT Advance Care Planning discussion: ACP discussion: This typewriter assembly and parts inspector and patient addressed ACP including explanation and [...] documented as of this encounter Care Teams Variety Saw Operator Relationship Specialty Start Date End Date Macario Pryor MD [address] [place] [address] TRIST[place] NAILS [address] PCP - Hematology/Oncology Internal Medicine-Medical Oncology 11/12/15 Cr Resendez MD [address] [place] [address] TRISTIAN MARTINEZ [address] PCP - General Family Medicine 11/24/21 Jan Sin MD [address] [place] [address] TRISTIAN NAILS [address] Internal Medicine-Cardiovascul ar Disease 08/28/14 documented as of this encounter
--- OUTSIDE RECORDS SUMMARY | 2025-05-01 16:53 | XMS_ITS | Encounter Summary ---
Author Organization Healthcare Address [address] [place] [address] Care Team Providers Care Break And Load Operator Name Role Phone Isabella Saucedo Phong CARDIOLOGY CONSULTANT Unavailable [phone] Jeannie Mcmillan RN Unavailable [phone] Ebony Shoemaker Unavailable [phone] Pcp, No Primary Care Provider Unavailabl e Rodney Gonzáles MD Unavailable [phone] Reason for Referral * Consultation (Routine) - Authorized Specialty Diagnoses / Procedures Referred By Contac t Referred To Contact Diagnoses RUQ abdominal pain Ang Will MD [address] [place] [address] Phone: tel: fax: Referral ID Status Reason Start Date Expiration Date V isits Requested Visits Authorized [id number] Authorized 05/05/2025 11/04/2026 1 1 Reason for Visit * Reason Comments Abdominal Pain * Auth/Cert (Routine) Specialty Diagnoses / Procedures Referred By Contarjun t Referred To Contact Diagnoses Abdominal pain Liver Cancer Britney Rai MD [address] [place] [address] Phone: tel: fax: [facility] Inpatient [address] [place] [address] Referral ID Status Reason Start Date Expiration Date Visits Re quested Visits Authorized [id number] 1 1 Encounter Details Date Type Department Care Team (Latest Contact Info) Description 05/01/2025 4:53 PM EDT - 05/05/2025 2:45 PM EDT Hospital Encounter [facility] [address] [place] [address] Willy Saleh MD [address] [place] [address] Britney Rai MD [address] [place] [address] Ang Will MD [address] [place] [address] Generalized abdominal pain (Primary Dx); Hepatocellular carcinoma; RUQ abdominal pain Discharge Disposition: Home or Self Care Social History Tobacco Use Types Packs/Day Years Used Date Smoking Tobacco: Every Day Cigarettes 0.5 7.7 Started: 2017 Smokeless Tobacco: Never PHQ-2 Answer Date Recorded Patient Health Questionnaire-2 Score 0 03/14/2025 Humiliation, Afraid, Rape, and Kick questionnair e Answer Date Recorded Within the last year, have y ou been afraid of your partner or ex-partner? No 05/02/2025 Within the last year, have y ou been humiliated or emotionally abused in other ways by your partner or ex-partner? No Within the last year, have y ou been kicked, hit, slapped, or otherwise physically hurt by your partner or ex-partner? No 05/02/2025 Within the last year, have y ou been raped or forced to have any kind of sexual activity by your partner or ex-partner? No 05/02/2025 Hunger Vital Sign Answer Date Recorded Within the past 12 months, y ou worried that your food would run out before you got the money to buy more. Never true 05/02/20 25 Within the past 12 months, t he food you bought just didn't last and you didn't have money to get more. Never true 05/02/2025 PRAPARE - Transportation Answer Date Re corded In the past 12 months, has l ack of transportation kept you from medical appointments or from getting medications? No 10/2024 In the past 12 months, has l ack of transportation kept you from meetings, work, or from getting things needed for daily living? No 05/02/2025 Housing Stability Vital Sign Answer Jairo e Recorded In the last 12 months, was t here a time when you were not able to pay the mortgage or rent on time? No 05/02/2025 In the past 12 months, how m any times have you moved where you were living? 0 05/02/2025 At any time in the past 12 m [facility], were you homeless or living in a [place] [facility] [place] facility (including now)? No 05/02/2025 [facility] Utilities Answer Date Recorded In the past 12 months has th e electric, gas, oil, or water company threatened to shut off services in your home? No 05/02/2025 Sex and Gender Information Value Date Recorded Sex Assigned at Male 05/01/2025 5:02 PM EDT Legal Sex Male 7:50 PM EDT Gender Identity Not on file Sexual Orientation Not on file documented as of this encounter Last Filed Vital Signs Vital Sign Reading Time Taken Comments Blood Pressure 164/84 05/05/2025 11:14 AM EDT Pulse 99 05/05/2025 11:14 AM EDT Temperature 36.6 C (97.8 F) 05/05/2025 11:14 AM EDT Respiratory Rate 17 05/05/2025 11:14 AM EDT Oxygen Saturation 97% 05/05/2025 11:14 AM EDT Inhaled Oxygen Concentration - - Weight 60.1 kg (132 lb 7.9 oz) 05/05/2025 6:40 A M EDT Height 172.7 cm (5' 8 ) 05/01/2025 5:05 PM EDT Body Mass Index 20.15 05/01/2025 5:05 PM EDT documented in this encounter Functional Status * Calculated C-SSRS Risk Score (Lifetime/Recent) Answer Date of Assessment Author No Risk Indicated 05/05/2025 8:20 AM EDT Kimi Romero, RN * Question Answer Date of Assessment Author 1. Wish to be (Past 1 Month) No 025 8:20 AM EDT Kimi Romero, RN 2. Non-Specific Active Suici heriberto Thoughts (Past 1 Month) No 05/05/2025 8:20 AM EDT Kimi Romero, RN 6. Suicidal Behavior (Lifetime) No 8:20 AM EDT Kimi Romero, RN documented as of this encounter Medications [...] tablet Take 1 tablet by mouth daily. bisoprolol (Zebeta) 5 MG tablet Take 1 [...] MG Take 1 tablet by mouth daily. megestrol (Megace) 40 MG/ML suspension Take 20 mL by mouth daily. Shake well just before you measure a dose. Measure with a special dose-measuring spoon or medicine cup, not with a regular table spoon. If you do not have a dose-measuring device, ask your pharmacist for one. naloxone (Narcan) 4 mg/0.1 mL nasal spray [...] for nausea or vomiting. 20 tablet 03/21/2025 oxyCODONE-acetamino phen (Percocet) 7.5-325 MG tablet Take 1 tablet by mouth every 8 hours as needed for severe pain. polyethylene glycol (Miralax) 17 g packet Take 17 g by mouth daily. 30 each 5 03/22/2025 senna (Senokot) 8.6 MG tablet Take 2 tablets by mouth nightly. 60 tablet 03/21/2025 Trelegy Ellipta 100-62.5-25 MCG/ACT aerosol powder INHALE 1 PUFF INTO THE LUNGS DAILY AT 0900. documented as of this encounter Miscellaneous Notes * Discharge Summary - Ang Will MD - 05/05/2025 1:55 PM EDT Hospitalization Admit Date/Time: 05/01/2025 4:53 PM Admitting Attending: Britney Rai Discharge Date: 05/05/2025 Discharge Attending Physician: Ang Will MD PCP name and Address: Pcp, [address] [address] Referring provider name and address: Cr Lazo MD [address] [place] [address] Chief Concern, Brief History of Present Illness, and Hospital Course Rl Steward is a 65 y.o. male PMHx of COPD, tobacco dependence, ischemic heart disease, coronaryartery disease, anxiety, depression, chronic back pain, decompensated cirrhosis, and newly diagnosed hepatocellular carcinoma that presented to the emergency department as a transfer from [facility] with RUQ pain and concern for cholecystitis in the setting of hepatocellular carcinoma. He was evaluated by GI and multiple Surgical teams- Surgical Oncology, Transplant surgery, Emergency Surgery and on subsequent days, by Trauma surgery, regarding need for surgical treatment of cholecystectomy. The unified opinion was that the pain and Bilirubin elevation was not related to any acute cholecystitis and this was endorsed finally with a negative HIDA scan. He was also seen and followed by GI. Empirically started Zosyn induced some diarrhea which resolved at discharge. Overall, the cause for his increasing bilirubin, RUQ pain was felt to be cancer related than due tohis gall stone disease. Patient and family were counseled on the results and opinions. His stay had been otherwise, uneventful. Acute diarrhea - abx induced ; r/o C dif ; volume status good, will do low volume fluids overnight; Zosyn stopped;resolved on stopping Abx #RQU abdominal pain (POA) #Elevated lactate (POA) #Hyperbilirubinemia (POA) #Transaminitis (POA) #Jaundice (POA) 05/04 - Neg HIDA scan - No intervention - dc abx 05/03 - clinically no change, despite improvement in Br;Impression from Surgery, Transplant, Surgical Oncology, Blue , Emergency - - Not for any intervention - no concerns for ascending cholangitis - sepsis- will continue Zosyn for now - GI feels - will continue Abx; ? PB intervention 05/01 -05/01: ALT: 22 AST: 248 T. Bili: 2.32 lactate: 2.5 -RUQ US: Cholelithiasis. Significant gallbladder wall thickening could be secondary to chronic liver disease or cholecystitis. There is trace pericystic free fluid. -Received 1L bolus in the ED + Started on zosyn in the ED. -Surgical Oncology + Transplant Surgery consulted from ED- both feel no concern of acute dougie - for the elevated bili- ordered fractions and consulted Hepatology #Cirrhosis decompensated (POA) #Hepatocellular carcinoma (POA) #Cancer related pain (POA0 -Receiving chemotherapy at [facility]. Last dose of chemo was on 03/29. No further chemo has been given due to elevated bilirubin. 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 #Normocytic Anemia (POA) -Admission labs: H/H: 13.2/37.8 MCV: 93 Suspect multifactorial etiology - DDX includes but not limited too acute blood loss, acute illness,anemia of chronic disease/inflammation, iron/vitamin B12/folate deficiency, hemodilution, sub-optimal nutrition, bone marrow process, hemolysis &/or iatrogenic from blood draws. PLAN -Monitor Hgb -Transfuse if Hgb < 7.0 #Hypoalbuminemia (POA) Increases overall morbidity & mortality. -Monitor albumin -Consult Spray Gun Striper -Continue megace #Nicotine dependence (POA) -Smokes about 1/2 PPD -Nicotine patch -Smoking cessation counseling at discharge #COPD (POA) -Continue home albuterol and Trelegy #Constipation (POA) -Continue home senna #Chronic back pain (POA) -Continue home cyclobenzaprine Surgeries and Procedures None Medication List PAUSE taking these medications Entresto [...] by mouth 1 time each day. atorvastatin 20 MG tablet Commonly known as: Lipitor Take 1 tablet by mouth daily. bisoprolol 5 MG tablet Commonly known as: [...] 8 hours as needed for muscle spasms. escitalopram 20 MG tablet Commonly known as: Lexapro Take 1 tablet by mouth 1 time each day. furosemide 20 MG tablet Commonly known as: Lasix Take 2 tablets by mouth daily. HYDROmorphone 2 MG tablet Commonly known as: Dilaudid Take 1.5 tablets by mouth every 4 hours as needed for severe pain. Jardiance 10 MG Generic drug: empagliflozin Take 1 tablet by mouth daily. megestrol 40 MG/ML suspension Commonly known as: Megace Take 20 mL by mouth daily. Shake well just before you measure a dose. Measure with a special dose-measuring spoon or medicine cup, not with a regular table spoon. If you do not have a dose-measuring device, ask your pharmacist for one. naloxone 4 mg/0.1 mL nasal spray Commonly [...] hours as needed for nausea or vomiting. oxyCODONE-acetaminophen 7.5-325 MG tablet Commonly known as: Percocet Take 1 tablet by mouth every 8 hours as needed for severe pain. polyethylene glycol 17 g packet Commonly known as: Miralax Take 17 g by mouth daily. senna 8.6 MG tablet Commonly known as: Senokot Take 2 tablets by mouth nightly. Trelegy Ellipta 100-62.5-25 MCG/ACT aerosol powder Generic drug: Ggeypomxrqn-Xbpofudia-Gfoibs INHALE 1 PUFF INTO THE LUNGS DAILY AT 0900. Discharge Diagnosis Medical Problems Active and Resolved Hospital Problems Hospital * (Principal) Abdominal pain Post Discharge Instructions Follow up appointments as scheduled earlier Outpatient Follow-Up No future appointments. Test Results Pending At Discharge Pending Labs Order Current Status Phosphatidylethanol (PEth), Whole Blood, Quantitative In process Pertinent Physical Exam At Time of Discharge Physical Exam Vitals and nursing note reviewed. Constitutional: General: He is not in acute distress. Appearance: He is not toxic-appearing. HENT: Mouth/Throat: Mouth: Mucous membranes are moist. Cardiovascular: Pulses: Normal pulses. Heart sounds: Normal heart sounds. Pulmonary: Effort: Pulmonary effort is normal. Breath sounds: Normal breath sounds. Abdominal: General: Abdomen is flat. There is distension. Palpations: Abdomen is soft. Tenderness: There is abdominal tenderness. There is no guarding. Neurological: Mental Status: He is alert. Discharge Disposition/Condition Disposition: Home Condition: Stable (s/sx potential problems absent or manageable) I spent >30 minutes of patient care and instruction time in preparation for this discharge. * Care Plan - Kimi Romero RN - 05/05/2025 11:38 AM EDT Problem: Adult Inpatient Plan of Care Goal: Plan of Care Review Outcome: Ongoing, Progressing Flowsheets (Taken 05/05/2025 1134) Progress: improving Outcome Evaluation: POC discussed. Plan of Care Reviewed With: patient spouse Goal: Absence of Hospital-Acquired Illness or Injury Outcome: Ongoing, Progressing Intervention: Identify and Manage Fall Risk Flowsheets (Taken 05/05/2025 1134) Safety Promotion/Fall Prevention: activity supervised nonskid shoes/slippers when out of bed room organization consistent safety round/check completed clutter-free environment maintained lighting adjusted toileting scheduled Intervention: Prevent Skin Injury Flowsheets (Taken 05/05/2025 1134) Body Position: weight shifting Skin Protection: transparent dressing maintained incontinence pads utilized protective footwear used Intervention: Prevent and Manage VTE (Venous Thromboembolism) Risk Flowsheets (Taken 05/05/2025 1134) VTE Prevention/Management: education provided Intervention: Prevent Infection Flowsheets (Taken 05/05/2025 1134) Infection Prevention: environmental surveillance performed equipment surfaces disinfected hand hygiene promoted personal protective equipment utilized rest/sleep promoted single patient room provided Goal: Optimal Comfort and Wellbeing Outcome: Ongoing, Progressing Intervention: Monitor Pain and Promote Comfort Flowsheets (Taken 05/05/2025 0921) Pain Management Interventions: zxpcyg-yym-epgza dosing utilized medication (see MAR) care clustered Intervention: Provide Person-Centered Care Flowsheets (Taken 05/05/2025 1134) Trust Relationship/Rapport: care explained choices provided emotional support provided empathic listening provided questions answered questions encouraged reassurance provided thoughts/feelings acknowledged Problem: Pain Acute Goal: Optimal Pain Control and Function Outcome: Ongoing, Progressing Intervention: Optimize Psychosocial Wellbeing Flowsheets (Taken 05/05/2025 1134) Supportive Measures: active listening utilized positive reinforcement provided verbalization of feelings encouraged Diversional Activities: television Spiritual Activities Assistance: affirmation provided Intervention: Develop Pain Management Plan Flowsheets (Taken 05/05/2025 0921) Pain Management Interventions: nwnxck-gkj-svybj dosing utilized medication (see MAR) care clustered Intervention: Prevent or Manage Pain Flowsheets (Taken 05/05/2025 1134) Sensory Stimulation Regulation: care clustered lighting decreased Bowel Elimination Promotion: adequate fluid intake promoted ambulation promoted Sleep/Rest Enhancement: regular sleep/rest pattern promoted relaxation techniques promoted noise level reduced Medication Review/Management: medications reviewed Problem: Fall Injury Risk Goal: Absence of Fall and Fall-Related Injury Outcome: Ongoing, Progressing Intervention: Identify and Manage Contributors Flowsheets (Taken 05/05/2025 1134) Medication Review/Management: medications reviewed Intervention: Promote Injury-Free Environment Flowsheets (Taken 05/05/2025 1134) Safety Promotion/Fall Prevention: activity supervised nonskid shoes/slippers when out of bed room organization consistent safety round/check completed clutter-free environment maintained lighting adjusted toileting scheduled Problem: Oral Intake Inadequate Goal: Improved Oral Intake Outcome: Ongoing, Progressing Intervention: Promote and Optimize Oral Intake Flowsheets (Taken 05/05/2025 1134) Oral Nutrition Promotion: rest periods promoted physical activity promoted Nutrition Interventions: food preferences provided frequent small meals provided Problem: Oncology Care Goal: Effective Coping Outcome: Ongoing, Progressing Intervention: Support and Enhance Coping Strategies Flowsheets (Taken 05/05/2025 1134) Supportive Measures: active listening utilized positive reinforcement provided verbalization of feelings encouraged Environmental Support: calm environment promoted environmental consistency promoted personal routine supported rest periods encouraged rooming-in facilitated Family/Support System Care: presence promoted support provided Goal: Improved Activity Tolerance Outcome: Ongoing, Progressing Intervention: Promote Improved Energy Flowsheets Taken 05/05/2025 1134 Environmental Support: calm environment promoted environmental consistency promoted personal routine supported rest periods encouraged rooming-in facilitated Fatigue Management: frequent rest breaks encouraged Sleep/Rest Enhancement: regular sleep/rest pattern promoted relaxation techniques promoted noise level reduced Taken 05/05/2025 0820 Activity Management: activity adjusted per tolerance Goal: Optimal Oral Intake Outcome: Ongoing, Progressing Intervention: Minimize Barriers to Oral Intake Flowsheets (Taken 05/05/2025 1134) Oral Nutrition Promotion: rest periods promoted physical activity promoted Nutrition Interventions: food preferences provided frequent small meals provided Oral Care: education provided Goal: Improved Oral Mucous Membrane Integrity Outcome: Ongoing, Progressing Intervention: Promote Oral Comfort and Health Flowsheets (Taken 05/05/2025 1134) Oral Care: education provided Goal: Optimal Pain Control and Function Outcome: Ongoing, Progressing Intervention: Develop Pain Management Plan Flowsheets (Taken 05/05/2025 0921) Pain Management Interventions: laiaed-wmf-viarx dosing utilized medication (see MAR) care clustered Intervention: Prevent or Manage Pain Flowsheets (Taken 05/05/2025 1134) Sensory Stimulation Regulation: care clustered lighting decreased Bowel Elimination Promotion: adequate fluid intake promoted ambulation promoted Sleep/Rest Enhancement: regular sleep/rest pattern promoted relaxation techniques promoted noise level reduced Medication Review/Management: medications reviewed Intervention: Optimize Psychosocial Wellbeing Flowsheets (Taken 05/05/2025 1134) Supportive Measures: active listening utilized positive reinforcement provided verbalization of feelings encouraged Diversional Activities: television Spiritual Activities Assistance: affirmation provided * Care Plan - Anne Bettencourt RN - 05/05/2025 12:51 AM EDT Problem: Adult Inpatient Plan of Care Goal: Plan of Care Review Outcome: Ongoing, Progressing Flowsheets Taken 05/05/202548 by Anne Bettencourt RN Plan of Care Reviewed With: patient spouse Taken 05/04/2025829 by Esme oPe RN Progress: improving Goal: Absence of Hospital-Acquired Illness or Injury Outcome: Ongoing, Progressing Intervention: Identify and Manage Fall Risk Flowsheets (Taken 05/04/20251999) Safety Promotion/Fall Prevention: activity supervised assistive device/personal items within reach clutter-free environment maintained nonskid shoes/slippers when out of bed Intervention: Prevent Skin Injury Flowsheets (Taken 05/05/202548) Body Position: weight shifting Skin Protection: transparent dressing maintained incontinence pads utilized Intervention: Prevent and Manage VTE (Venous Thromboembolism) Risk Flowsheets (Taken 05/05/202548) VTE Prevention/Management: education provided Intervention: Prevent Infection Flowsheets (Taken 05/05/202548) Infection Prevention: rest/sleep promoted environmental surveillance performed hand hygiene promoted Goal: Optimal Comfort and Wellbeing Outcome: Ongoing, Progressing Intervention: Monitor Pain and Promote Comfort Flowsheets (Taken 05/05/202548) Pain Management Interventions: flxuim-sua-znjig dosing utilized care clustered pain management plan reviewed with patient/caregiver Intervention: Provide Person-Centered Care Flowsheets (Taken 05/05/202548) Trust Relationship/Rapport: care explained choices provided questions answered questions encouraged Problem: Pain Acute Goal: Optimal Pain Control and Function Outcome: Ongoing, Progressing Intervention: Optimize Psychosocial Wellbeing Flowsheets (Taken 05/05/202548) Supportive Measures: verbalization of feelings encouraged problem-solving facilitated Diversional Activities: smartphone television Spiritual Activities Assistance: affirmation provided Intervention: Develop Pain Management Plan Flowsheets (Taken 05/05/202548) Pain Management Interventions: ssdrxs-dce-lujig dosing utilized care clustered pain management plan reviewed with patient/caregiver Intervention: Prevent or Manage Pain Flowsheets (Taken 05/05/202548) Sensory Stimulation Regulation: care clustered lighting decreased Bowel Elimination Promotion: adequate fluid intake promoted ambulation promoted Sleep/Rest Enhancement: awakenings minimized regular sleep/rest pattern promoted Medication Review/Management: medications reviewed * Significant Event - Kevin Dove MD - 05/04/2025 4:25 PM EDT SGE interim summary: HIDA scan negative for evidence of acute cholecystitis. No surgical intervention indicated at this time. Would recommend continued treatment for malignant disease. Please contact with questions. Kevin Dove MD * Progress Notes - Keaton Ponce MD - 05/04/2025 3:30 PM EDT Gastroenterology, Hepatology and Nutrition Progress Note CC: Follow-up for abdominal pain, hyperbilirubinemia Interval history: No significant events overnight. Pain persists. Patient noting worsening diarrhea. Labs otherwise overall stable. HIDA scan completed which is negative for acute cholecystitis. ROS: GEN: No fevers or chills GI: +abdominal pain, + diarrhea PHYSICAL EXAM: Vitals: 05/04/25 1500 BP: Pulse: Resp: 16 Temp: SpO2: Physical Exam: General Awake, NAD Eyes EOMI, scleral icterus present Head NC/AT ENT OP moist. Hearing grossly normal. CV Warm and well perfused RES Equal chest rise, normal effort on room air GI Soft, RUQ pain on palpation, negative rosario sign JEFF AAOx4. No gross deficits. EXT No cyanosis. No edema Skin No visible skin lesions PSY Appropriate mood and affect Current Medications[1] Labs in last 18 hours CBC WBC 4.71 Hb 13.1 (L) Plt 117 (L) Hct 38.4 (L) ANC ?? INR ??, PTT ??, Anti-Xa ?? BMP Na 138 Cl 106 BUN 11 Glu 92 K 3.3 (L) Co2 20 (L) Cr 0.81 Ca 8.5 (L) iCa ?? Mg ??, Phos ?? Lactate ?? LFT AST 140 (H) AlkPhos 186 (H) T Prot 6.4 ALT 21 Bili 2.1 (H) Alb ?? D.Bili ?? ASSESSMENT AND PLAN: Rl Steward is a 65 y.o. 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 Hepatology is consulted for hyperbilirubinemia in the setting of HCC. # Cirrhosis c/b HCC # Abdominal Pain # Cholelithiasis, Symptomatic w/Concern for Cholecysitis # Hyperbilirubinemia MELD 3.0: 12 at 05/04/2025 4:33 AM MELD-Na: 10 at 05/04/2025 4:33 AM Calculated from: Serum Creatinine: 0.81 mg/dL (Using min of 1 mg/dL) at 05/04/2025 4:33 AM Serum Sodium: 138 mmol/L (Using max of 137 mmol/L) at 05/04/2025 4:33 AM Total Bilirubin: 2.1 mg/dL at 05/04/2025 4:33 AM Serum Albumin: 2.6 g/dL at 05/04/2025 4:33 AM INR(ratio): 1.1 at 05/02/2025 2:07 AM Age at listing (hypothetical): 65 years Sex: Male at 05/04/2025 4:33 AM --Patient known to the Transplant surgery Service, following with them in the outpatient setting. Currently not a surgical candidate setting of HCC complicated by tumor in vein. He is on outpatient Atezolizumab, fusion approximately 1 month prior. Additionally with plans for Y90 chemoembolization although he has not received this treatment yet. --He is afebrile, normotensive with heart rate in the 80s since arrival. CBC with mild stable anemia and thrombocytopenia. INR 1.1. Electrolytes and kidney function largely within normal limits. AST elevated to 241, alk phos to 200 although these are downtrending from prior. Bilirubin is acutely elevated at 2.6. --Right upper quadrant ultrasound 05/01: Cholelithiasis with gallstone lodged in the neck of the gallbladder, pericystic free fluid, CBD 5 mm without intra or extrahepatic biliary ductal dilation. No ascites. Patent portal vein. --HIDA 05/04/2025: negative for acute cholecystitis RECOMMENDATIONS: In the absence of cholecystitis on above studies RUQ pain and lab abnormalities likely related to disease progression. No acute intervention warranted by surgical teams whose recommendations and evaluation is appreciated. Likewise, patient would not benefit from GI intervention at this time. Would discontinue abx unless otherwise indicated. With diarrhea development would send infectious stool studies with C. Diff and GIPP. Continue PRN analgesia. Staffed w/ attending: Dr. Waddell Thank you for allowing us to participate in this patient's care. Please do not hesitate to call or page with questions or concerns. Keaton Ponce MD Clinical fellow, PGY-5 Gastroenterology, Hepatology and Nutrition [1] Current Facility-Administered Medications: albuterol 108 (90 Base) MCG/ACT inhaler 2 puff, 2 puff, Inhalation, 4x daily PRN, Crane, Lexi L, CARDIOLOGY CONSULTANT calcium carbonate (Tums) chewable tablet 500 mg, 500 mg, Oral, q4h PRN, Crane, Lexi L, CARDIOLOGY CONSULTANT cyclobenzaprine (Flexeril) tablet 5 mg, 5 mg, Oral, BID PRN, Crane, Lexi L, CARDIOLOGY CONSULTANT, 5 mg at 736 escitalopram (Lexapro) tablet 20 mg, 20 mg, Oral, Daily, Crane, Lexi L, CARDIOLOGY CONSULTANT, 20 mg at 05/04/25826 furosemide (Lasix) tablet 20 mg, 20 mg, Oral, Daily, Crane, Lexi L, CARDIOLOGY CONSULTANT, 20 mg at 09/05/25 0827 HYDROmorphone (Dilaudid) injection 0.5 mg, 0.5 mg, Intravenous, q4h PRN, Rosa Maria Lexi L, CARDIOLOGY CONSULTANT, 0.5 mg at 05/04/25 1405 HYDROmorphone (Dilaudid) tablet 3 mg, 3 mg, Oral, q4h PRN, Rosa Maria Lexi L, CARDIOLOGY CONSULTANT, 3 mg at 05/03/25 1615 Tiotropium [place] Monohydrate (Spiriva Respimat) 2.5 MCG/ACT inhaler 2 puff, 2 puff, Inhalation, Daily, 2 puff at 05/04/25 0828 AND mometasone-formoterol (Dulera 100) 100-5 MCG/ACT inhaler 2 puff, 2 puff, Inhalation, BID, Bhavya Craneoya L, CARDIOLOGY CONSULTANT, 2 puff at 05/04/25 0828 nicotine (Nicoderm CQ) 21 MG/24HR patch 1 patch, 1 patch, Transdermal, Daily, Lexi Crane, CARDIOLOGY CONSULTANT,1 patch at 05/04/25 0827 piperacillin-tazobactam (Zosyn) 4.5 g in sodium chloride 0.9% 100 mL IVPB (vial adapter required), 4.5 g, Intravenous, q6h, Saadia Cranea L, CARDIOLOGY CONSULTANT, Last Rate: 36.7 mL/hr at 05/04/25 1405, 4.5 g at 05/04/25 1405 [COMPLETED] Insert peripheral IV, , , Once AND [COMPLETED] Saline lock IV, , , Once AND sodium chloride 0.9 % flush 10 mL, 10 mL, Intravenous, q12h, 10 mL at 05/04/25 0121 AND sodium chloride 0.9 % flush 10 mL, 10 mL, Intravenous, PRN, Bhavya Craneoya L, CARDIOLOGY CONSULTANT Cosigned by Tremaine Waddell MD at 05/07/2025 8:26 AM EDT Associated attestation - Tremaine Waddell MD - 05/07/2025 8:26 AM EDT I saw and evaluated the patient with the resident/fellow. I discussed the case with the resident/fellow and agree with the findings and plan as documented. * Progress Notes - Ang Will MD - 05/04/2025 12:39 PM EDT Subjective I now have diarrhea, no vomiting, loose stools ,no blood, eating ok , '' Review of Systems Constitutional: Negative for chills and fever. Respiratory: Negative for apnea, cough and chest tightness. Cardiovascular: Negative for chest pain and leg swelling. Gastrointestinal: Positive for abdominal distention. Objective Vitals Temp: [36.6 ??C (97.9 ??F)-37.3 ??C (99.1 ??F)] 36.7 ??C (98 ??F) Heart Rate: [76-84] 84 Resp: [18-20] 18 BP: (134-147)/(47-67) 134/56 Physical Exam Vitals and nursing note reviewed. Constitutional: General: He is not in acute distress. Appearance: He is not toxic-appearing. HENT: Mouth/Throat: Mouth: Mucous membranes are moist. Cardiovascular: Rate and Rhythm: Normal rate and regular rhythm. Pulses: Normal pulses. Heart sounds: Normal heart sounds. Pulmonary: Effort: Pulmonary effort is normal. Breath sounds: Normal breath sounds. Abdominal: General: Abdomen is flat. There is distension. Palpations: Abdomen is soft. Tenderness: There is abdominal tenderness. There is no right CVA tenderness, guarding or rebound. Neurological: Mental Status: He is alert. Assessment & Plan Rl Steward is a 65 y.o. male PMHx of COPD, tobacco dependence, ischemic heart disease, coronaryartery disease, anxiety, depression, chronic back pain, decompensated cirrhosis, and newly diagnosed hepatocellular carcinoma that presented to the emergency department as a transfer from [facility] with RUQ pain and concern for cholecystitis in the setting of hepatocellular carcinoma. Acute diarrhea - abx induced ; r/o C dif ; volume status good, will do low volume fluids overnight; Zosyn stopped #RQU abdominal pain (POA) #Elevated lactate (POA) #Hyperbilirubinemia (POA) #Transaminitis (POA) #Jaundice (POA) 05/04 - Neg HIDA scan - No intervention - dc abx 05/03 - clinically no change, despite improvement in Br;Impression from Surgery, Transplant, Surgical Oncology, Blue , Emergency - - Not for any intervention - no concerns for ascending cholangitis - sepsis- will continue Zosyn for now - GI feels - will continue Abx; ? PB intervention 05/01 -05/01: ALT: 22 AST: 248 T. Bili: 2.32 lactate: 2.5 -RUQ US: Cholelithiasis. Significant gallbladder wall thickening could be secondary to chronic liver disease or cholecystitis. There is trace pericystic free fluid. -Received 1L bolus in the ED + Started on zosyn in the ED. -Surgical Oncology + Transplant Surgery consulted from ED- both feel no concern of acute dougie - for the elevated bili- ordered fractions and consulted Hepatology #Cirrhosis decompensated (POA) #Hepatocellular carcinoma (POA) #Cancer related pain (POA0 -Receiving chemotherapy at [facility]. Last dose of chemo was on 03/29. No further chemo has been given due to elevated bilirubin. 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 #Normocytic Anemia (POA) -Admission labs: H/H: 13.2/37.8 MCV: 93 Suspect multifactorial etiology - DDX includes but not limited too acute blood loss, acute illness,anemia of chronic disease/inflammation, iron/vitamin B12/folate deficiency, hemodilution, sub-optimal nutrition, bone marrow process, hemolysis &/or iatrogenic from blood draws. PLAN -Monitor Hgb -Transfuse if Hgb < 7.0 #Hypoalbuminemia (POA) Increases overall morbidity & mortality. -Monitor albumin -Consult Spray Gun Striper -Continue megace #Nicotine dependence (POA) -Smokes about 1/2 PPD -Nicotine patch -Smoking cessation counseling at discharge #COPD (POA) -Continue home albuterol and Trelegy #Constipation (POA) -Continue home senna #Chronic back pain (POA) -Continue home cyclobenzaprine #Diet: Reg #VTE Prophylaxis: This patient does not have an active medication from one of the medication groupers. #Disposition: pending hospital course #Code Status: Prior #Bowel Regimen: senna Medically Ready for Discharge: dc tomorrow * Progress Notes - Cristobal Marte - 05/04/2025 10:22 AM EDT Case Management Adult Progress Note Rl Steward 65 y.o. male CSN: [id number] Admission: 05/01/2025 4:53 PM Primary Problem: Abdominal pain Anticipated Discharge Date: TBD Has Discharge Plans Changed? No Additional Comments Plan of care reviewed with Pt's care team; Possible discharge readiness anticipated within 72 hours. Hepatobiliary scan pending. Pt anticipated to discharge home, when medically ready, with spouse for transport and assistance. No additional CM need identified. Cristobal Marte * Care Plan - Esme Poe RN - 05/04/2025 9:56 AM EDT Problem: Adult Inpatient Plan of Care Goal: Plan of Care Review Outcome: Ongoing, Progressing Flowsheets Taken 05/04/2025829 Progress: improving Taken 05/03/2025799 Plan of Care Reviewed With: patient Goal: Absence of Hospital-Acquired Illness or Injury Outcome: Ongoing, Progressing Intervention: Identify and Manage Fall Risk Flowsheets (Taken 05/04/2025829) Safety Promotion/Fall Prevention: activity supervised clutter-free environment maintained nonskid shoes/slippers when out of bed safety round/check completed Intervention: Prevent Skin Injury Flowsheets (Taken 05/04/2025829) Body Position: side-lying left Skin Protection: incontinence pads utilized Intervention: Prevent and Manage VTE (Venous Thromboembolism) Risk Flowsheets (Taken 05/04/2025 0830) VTE Prevention/Management: SCDs (sequential compression devices) off Intervention: Prevent Infection Flowsheets (Taken 05/04/2025829) Infection Prevention: hand hygiene promoted rest/sleep promoted single patient room provided environmental surveillance performed Goal: Optimal Comfort and Wellbeing Outcome: Ongoing, Progressing Intervention: Provide Person-Centered Care Flowsheets (Taken 05/04/2025829) Trust Relationship/Rapport: questions answered care explained choices provided questions encouraged emotional support provided reassurance provided thoughts/feelings acknowledged empathic listening provided Problem: Pain Acute Goal: Optimal Pain Control and Function Outcome: Ongoing, Progressing Intervention: Optimize Psychosocial Wellbeing Flowsheets (Taken 05/04/2025829) Supportive Measures: problem-solving facilitated relaxation techniques promoted self-care encouraged positive reinforcement provided Diversional Activities: television smartphone Spiritual Activities Assistance: affirmation provided Intervention: Prevent or Manage Pain Flowsheets (Taken 05/04/2025829) Bowel Elimination Promotion: adequate fluid intake promoted Sleep/Rest Enhancement: regular sleep/rest pattern promoted relaxation techniques promoted family presence promoted Medication Review/Management: medications reviewed * Care Plan - Karen Avila - 05/04/2025 6:50 AM EDT Problem: Adult Inpatient Plan of Care Goal: Plan of Care Review Outcome: Ongoing, Progressing Flowsheets Taken 05/04/2025 0649 by Karen Avila Progress: improving Taken 05/03/2025 08 by Esme Poe RN Plan of Care Reviewed With: patient Goal: Absence of Hospital-Acquired Illness or Injury Outcome: Ongoing, Progressing Intervention: Identify and Manage Fall Risk Flowsheets (Taken 05/03/2025 1800 by Renetta Jones) Safety Promotion/Fall Prevention: activity supervised Intervention: Prevent Skin Injury Flowsheets (Taken 05/03/2025 08 by Esme Poe, RN) Body Position: sitting up in bed weight shifting Skin Protection: incontinence pads utilized Intervention: Prevent and Manage VTE (Venous Thromboembolism) Risk Flowsheets (Taken 05/03/2025 08 by Esme Poe, RN) VTE Prevention/Management: SCDs (sequential compression devices) off Intervention: Prevent Infection Flowsheets (Taken 05/03/2025 08 by Esme Poe RN) Infection Prevention: hand hygiene promoted environmental surveillance performed rest/sleep promoted single patient room provided Goal: Optimal Comfort and Wellbeing Outcome: Ongoing, Progressing Intervention: Monitor Pain and Promote Comfort Flowsheets (Taken 05/04/2025 0400) Pain Management Interventions: rest position adjusted Intervention: Provide Person-Centered Care Flowsheets (Taken 05/03/2025799 by Esme Poe, RN) Trust Relationship/Rapport: care explained choices provided empathic listening provided emotional support provided thoughts/feelings acknowledged reassurance provided questions encouraged questions answered Problem: Pain Acute Goal: Optimal Pain Control and Function Outcome: Ongoing, Progressing Intervention: Optimize Psychosocial Wellbeing Flowsheets (Taken 05/03/2025799 by Esme Poe, NIURKA) Supportive Measures: active listening utilized relaxation techniques promoted self-care encouraged positive reinforcement provided Diversional Activities: television smartphone Spiritual Activities Assistance: affirmation provided Intervention: Develop Pain Management Plan Flowsheets (Taken 05/04/2025 0400) Pain Management Interventions: rest position adjusted Intervention: Prevent or Manage Pain Flowsheets (Taken 05/03/2025799 by Esme Poe, NIURKA) Bowel Elimination Promotion: adequate fluid intake promoted Sleep/Rest Enhancement: relaxation techniques promoted regular sleep/rest pattern promoted Medication Review/Management: medications reviewed * Assessment & Plan Note - Robbie Mccarthy DO - 05/03/2025 7:42 PM EDTAssociated Problem(s): Abdominal pain Patient is a 65-year-old male with recently diagnosed nonresectable HCC who presented to the ED on 05/01 with 5 days of right upper quadrant abdominal pain. Per patient, he underwent induction of chemotherapy on 03/29/2025. He states that his pain is not postprandial but rather constant with randomflares. On exam he is tender along his inferior costal margin on the right. Laboratory evaluation with normal white count, elevated T bili that is now down trending, AST elevation. CT scans from January, February, and April with liver mass and thickened gallbladder with stone in the neck. It is unclear if the pain is secondary to possible cholecystitis versus progression of his disease. Discussed with the patient that a surgery would be high risk in his case due to his multitude of comorbidities. Would recommend HIDA scan for further evaluation * Progress Notes - Keaton Ponce MD - 05/03/2025 3:46 PM EDT Gastroenterology, Hepatology and Nutrition Progress Note CC: Follow-up for abdominal pain, hyperbilirubinemia Interval history: No significant events overnight. Pain persists and is similar to day prior. Bilirubin is down trending. ROS: GEN: No fevers or chills GI: +abdominal pain PHYSICAL EXAM: Vitals: 05/03/25 1500 BP: Pulse: Resp: 18 Temp: SpO2: Physical Exam: General Awake, NAD Eyes EOMI, scleral icterus present Head NC/AT ENT OP moist. Hearing grossly normal. CV Warm and well perfused RES Equal chest rise, normal effort on room air GI Soft, RUQ pain on palpation, negative rosario sign JEFF AAOx4. No gross deficits. EXT No cyanosis. No edema Skin No visible skin lesions PSY Appropriate mood and affect Current Medications[1] Labs in last 18 hours CBC WBC 5.46 Hb 14.0 Plt 122 (L) Hct 41.1 ANC ?? INR ??, PTT ??, Anti-Xa ?? BMP Na 137 Cl 103 BUN 13 Glu 96 K 3.6 Co2 22 Cr 0.86 Ca 9.0 iCa ?? Mg ??, Phos ?? Lactate ?? LFT AST 205 (H) AlkPhos 220 (H) T Prot 7.1 ALT 23 Bili 1.7 (H) Alb ?? D.Bili ?? ASSESSMENT AND PLAN: Rl Steward is a 65 y.o. 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 Hepatology is consulted for hyperbilirubinemia in the setting of HCC. # Cirrhosis c/b HCC # Abdominal Pain # Cholelithiasis, Symptomatic w/Concern for Cholecysitis # Hyperbilirubinemia MELD 3.0: 10 at 05/03/2025 4:00 AM MELD-Na: 10 at 05/03/2025 4:00 AM Calculated from: Serum Creatinine: 0.86 mg/dL (Using min of 1 mg/dL) at 05/03/2025 4:00 AM Serum Sodium: 137 mmol/L at 05/03/2025 4:00 AM Total Bilirubin: 1.7 mg/dL at 05/03/2025 4:00 AM Serum Albumin: 3 g/dL at 05/03/2025 4:00 AM INR(ratio): 1.1 at 05/02/2025 2:07 AM Age at listing (hypothetical): 65 years Sex: Male at 05/03/2025 4:00 AM --Patient known to the Transplant surgery Service, following with them in the outpatient setting. Currently not a surgical candidate setting of HCC complicated by tumor in vein. He is on outpatient Atezolizumab, fusion approximately 1 month prior. Additionally with plans for Y90 chemoembolization although he has not received this treatment yet. --He is afebrile, normotensive with heart rate in the 80s since arrival. CBC with mild stable anemia and thrombocytopenia. INR 1.1. Electrolytes and kidney function largely within normal limits. AST elevated to 241, alk phos to 200 although these are downtrending from prior. Bilirubin is acutely elevated at 2.6. --Right upper quadrant ultrasound 05/01: Cholelithiasis with gallstone lodged in the neck of the gallbladder, pericystic free fluid, CBD 5 mm without intra or extrahepatic biliary ductal dilation. No ascites. Patent portal vein. RECOMMENDATIONS: Unclear if pain is secondary to lodged gallstone with possible early cholecystitis versus progression of disease. He is not a candidate for surgical intervention of his HCC. If not deemed a surgical candidate for CCY or that it is not indicated from a surgical standpoint, endoscopic transpapillary drainage could be a consideration however remains a poor long-term solution and possible that may not improve his pain while putting him at risk for procedure related complications. At present he is improving on antibiotics and it may be reasonable to complete a full 10-day course with close follow up if proceduralization is deemed too high risk while inpatient. Continue PRN analgesia. Please sendPETH and CK with next set of labs. No clear history of decompensation. We will continue to follow. Staffed w/ attending: Dr. Waddell Thank you for allowing us to participate in this patient's care. Please do not hesitate to call or page with questions or concerns. Keaton Ponce MD Clinical fellow, PGY-5 Gastroenterology, Hepatology and Nutrition [1] Current Facility-Administered Medications: albuterol 108 (90 Base) MCG/ACT inhaler 2 puff, 2 puff, Inhalation, 4x daily PRN, Crane, Lexi L, CARDIOLOGY CONSULTANT calcium carbonate (Tums) chewable tablet 500 mg, 500 mg, Oral, q4h PRN, Crane, Lexi L, CARDIOLOGY CONSULTANT cyclobenzaprine (Flexeril) tablet 5 mg, 5 mg, Oral, BID PRN, Crane, Lexi L, CARDIOLOGY CONSULTANT, 5 mg at 736 escitalopram (Lexapro) tablet 20 mg, 20 mg, Oral, Daily, Crane, Lexi L, CARDIOLOGY CONSULTANT, 20 mg at 05/03/25 08 furosemide (Lasix) tablet 20 mg, 20 mg, Oral, Daily, Crane, Lexi L, CARDIOLOGY CONSULTANT, 20 mg at 05/03/25 0802 HYDROmorphone (Dilaudid) injection 0.5 mg, 0.5 mg, Intravenous, q4h PRN, Crane, Lexi L, CARDIOLOGY CONSULTANT, 0.5 mg at 05/03/25 1406 HYDROmorphone (Dilaudid) tablet 3 mg, 3 mg, Oral, q4h PRN, Crane, Lexi L, CARDIOLOGY CONSULTANT, 3 mg at 05/02/25 0736 Tiotropium [place] Monohydrate (Spiriva Respimat) 2.5 MCG/ACT inhaler 2 puff, 2 puff, Inhalation, Daily, 2 puff at 05/03/25 0803 AND mometasone-formoterol (Dulera 100) 100-5 MCG/ACT inhaler 2 puff, 2 puff, Inhalation, BID, Crane, Lexi L, CARDIOLOGY CONSULTANT, 2 puff at 05/03/25 0804 nicotine (Nicoderm CQ) 21 MG/24HR patch 1 patch, 1 patch, Transdermal, Daily, Crane, Lexi L, CARDIOLOGY CONSULTANT,1 patch at 05/03/25 0802 piperacillin-tazobactam (Zosyn) 4.5 g in sodium chloride 0.9% 100 mL IVPB (vial adapter required), 4.5 g, Intravenous, q6h, Crane, Lexi L, CARDIOLOGY CONSULTANT, Last Rate: 36.7 mL/hr at 05/03/25 1230, 4.5 g at 05/03/25 1230 [COMPLETED] Insert peripheral IV, , , Once AND [COMPLETED] Saline lock IV, , , Once AND sodium chloride 0.9 % flush 10 mL, 10 mL, Intravenous, q12h, 10 mL at 05/02/25 2325 AND sodium chloride 0.9 % flush 10 mL, 10 mL, Intravenous, PRN, Crane, Lexi L, CARDIOLOGY CONSULTANT Cosigned by Tremaine Waddell MD at 05/07/2025 8:19 AM EDT Associated attestation - Tremaine Waddell MD - 05/07/2025 8:19 AM EDT I saw and evaluated the patient with the resident/fellow. I discussed the case with the resident/fellow and agree with the findings and plan as documented. * Progress Notes - Ang Will MD - 05/03/2025 3:08 PM EDT Subjective I still have pain, no fever, chills or rigors, no nausea or vomting'' Review of Systems Constitutional: Negative for chills and fever. Respiratory: Negative for apnea, cough and chest tightness. Cardiovascular: Negative for chest pain and leg swelling. Gastrointestinal: Positive for abdominal distention. Objective Vitals Temp: [36.8 ??C (98.3 ??F)-37.4 ??C (99.3 ??F)] 36.8 ??C (98.3 ??F) Heart Rate: [74-85] 74 Resp: [16-20] 20 BP: (128-151)/(58-66) 140/61 Physical Exam Vitals and nursing note reviewed. Constitutional: General: He is not in acute distress. Appearance: He is not toxic-appearing. HENT: Mouth/Throat: Mouth: Mucous membranes are moist. Cardiovascular: Rate and Rhythm: Normal rate and regular rhythm. Pulses: Normal pulses. Heart sounds: Normal heart sounds. Pulmonary: Effort: Pulmonary effort is normal. Breath sounds: Normal breath sounds. Abdominal: General: Abdomen is flat. There is distension. Palpations: Abdomen is soft. Tenderness: There is abdominal tenderness. There is no right CVA tenderness, guarding or rebound. Neurological: Mental Status: He is alert. Assessment & Plan Rl Steward is a 65 y.o. male PMHx of COPD, tobacco dependence, ischemic heart disease, coronaryartery disease, anxiety, depression, chronic back pain, decompensated cirrhosis, and newly diagnosed hepatocellular carcinoma that presented to the emergency department as a transfer from [facility] with RUQ pain and concern for cholecystitis in the setting of hepatocellular carcinoma. #RQU abdominal pain (POA) #Elevated lactate (POA) #Hyperbilirubinemia (POA) #Transaminitis (POA) #Jaundice (POA) 05/03 - clinically no change, despite improvement in Br;Impression from Surgery, Transplant, Surgical Oncology, Blue , Emergency - - Not for any intervention - no concerns for ascending cholangitis - sepsis- will continue Zosyn for now - GI feels - will continue Abx; ? PB intervention 05/01 -05/01: ALT: 22 AST: 248 T. Bili: 2.32 lactate: 2.5 -RUQ US: Cholelithiasis. Significant gallbladder wall thickening could be secondary to chronic liver disease or cholecystitis. There is trace pericystic free fluid. -Received 1L bolus in the ED + Started on zosyn in the ED. -Surgical Oncology + Transplant Surgery consulted from ED- both feel no concern of acute dougie - for the elevated bili- ordered fractions and consulted Hepatology #Cirrhosis decompensated (POA) #Hepatocellular carcinoma (POA) #Cancer related pain (POA0 -Receiving chemotherapy at [facility]. Last dose of chemo was on 03/29. No further chemo has been given due to elevated bilirubin. 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 #Normocytic Anemia (POA) -Admission labs: H/H: 13.2/37.8 MCV: 93 Suspect multifactorial etiology - DDX includes but not limited too acute blood loss, acute illness,anemia of chronic disease/inflammation, iron/vitamin B12/folate deficiency, hemodilution, sub-optimal nutrition, bone marrow process, hemolysis &/or iatrogenic from blood draws. PLAN -Monitor Hgb -Transfuse if Hgb < 7.0 #Hypoalbuminemia (POA) Increases overall morbidity & mortality. -Monitor albumin -Consult Spray Gun Striper -Continue megace #Nicotine dependence (POA) -Smokes about 1/2 PPD -Nicotine patch -Smoking cessation counseling at discharge #COPD (POA) -Continue home albuterol and Trelegy #Constipation (POA) -Continue home senna #Chronic back pain (POA) -Continue home cyclobenzaprine #Diet: Reg #VTE Prophylaxis: This patient does not have an active medication from one of the medication groupers. #Disposition: pending hospital course #Code Status: Prior #Bowel Regimen: senna Medically Ready for Discharge:Anticipated in 2-4 Days * Consults - Robbie Mccarthy DO - 05/03/2025 2:49 PM EDTAssociated Order(s): Inpatient consult to Emergency General Surgery Reason for Consultation: Concern for cholecystitis Requesting Service: Hospital Medicine Inpatient consult to Emergency General Surgery Consult performed by: Robbie Mccarthy DO Consult ordered by: Carroll Childers MD History Of Present Illness Rl Steward is a 65 y.o. male with history of CAD s/p CABG x2, decompensated cirrhosis, COPD, pacemaker, tobacco dependence, and hepatocellular carcinoma presenting to [facility] on 05/01/2025 with right upper quadrant abdominal pain. HCC was recently diagnosed about 3 months ago. He underwent his first infusion on March 29. Transplant surgery evaluated patient and deemed him not a candidatefor resection of his HCC. LI-RADS TI-V. He reports RUQ abdominal pain for the past week, unrelated to food. States that it is constant with occasional flares. Ultrasound with cholelithiasis and significant gallbladder wall thickening to 9mm. Patient denies fevers, chills, nausea, vomiting, changes in his bowel habits. His chief complaint is abdominal pain along his inferior costal margin. Generalsurgery consulted for evaluation for potential cholecystectomy. On initial evaluation, patient is afebrile with normal rate, hypertensive to 140's, and on room air. WBC 5 (6), T bili 1.7 (2.6), ALT normal, AST 205 (241) History Obtained From: Patient Past Medical History He has a past medical history of COPD (chronic obstructive pulmonary disease) (CMS/HCC), Liver cancer (CMS/HCC), Mitral valve prolapse, and Myocardial infarction (CMS/HCC). Reviewed as documented above Surgical History He has a past surgical history that includes Back surgery (1997); Cardiac surgery (2003); Cardiac surgery (2004); Neck surgery (2024); and Hernia repair (1999). Reviewed as documented above Family History Family History[1] Reviewed and not pertinent Social History He reports that he has been smoking cigarettes. He started smoking about 7 years ago. He has a 3.8 pack-year smoking history. He has never used smokeless tobacco. No history on file for alcohol use and drug use. Reviewed as documented above Allergies Duloxetine, Gabapentin, and Tape/bandaid adhesive Reviewed as documented above Medications Current Medications[2] Reviewed as documented above Review of Systems Relevant review of systems was obtained as able and is negative unless stated above in HPI. Last Recorded Vitals Blood pressure (!) 147/64, pulse 80, temperature 36.9 ??C (98.5 ??F), temperature source Oral, resp. rate 18, height 1.727 m (5' 8 ), weight 61.5 kg (135 lb 9.3 oz), SpO2 96%. Physical Exam Constitutional: General: He is not in acute distress. Appearance: He is ill-appearing. HENT: Head: Normocephalic and atraumatic. Cardiovascular: Rate and Rhythm: Normal rate and regular rhythm. Pulmonary: Effort: Pulmonary effort is normal. No respiratory distress. Comments: Room air Abdominal: General: There is no distension. Palpations: Abdomen is soft. Tenderness: There is no guarding or rebound. Comments: Moderately tender to palpation along right inferior costal margin and epigastric region Musculoskeletal: Right lower leg: No edema. Left lower leg: No edema. Skin: General: Skin is warm and dry. Coloration: Skin is not jaundiced. Neurological: General: No focal deficit present. Mental Status: He is alert and oriented to person, place, and time. Psychiatric: Mood and Affect: Mood normal. Behavior: Behavior normal. Recent Results Labs in last 18 hours CBC WBC 5.46 Hb 14.0 Plt 122 (L) Hct 41.1 ANC ?? INR ??, PTT ??, Anti-Xa ?? BMP Na 137 Cl 103 BUN 13 Glu 96 K 3.6 Co2 22 Cr 0.86 Ca 9.0 iCa ?? Mg ??, Phos ?? Lactate ?? LFT AST 205 (H) AlkPhos 220 (H) T Prot 7.1 ALK 23 Bili 1.7 (H) Alb ?? D.Bili ?? Radiology I personally and independently reviewed the CT images and Ultrasound images available at today's visit which showed: Ultrasound from 05/01 with cholelithiasis and gallbladder wall thickening that could be secondary to chronic liver disease or cholecystitis Outside hospital CT scans from 02/09/25, 03/20/25, and 05/01/25 demonstrate a segment 5 liver mass. LI-RADS-TIV. Gallstone noted in similar positioning on all 3 scans Assessment & Plan Abdominal pain Present on Admission: Yes Patient is a 65-year-old male with recently diagnosed nonresectable HCC who presented to the ED on 05/01 with 5 days of right upper quadrant abdominal pain. Per patient, he underwent induction of chemotherapy on 03/29/2025. He states that his pain is not postprandial but rather constant with randomflares. On exam he is tender along his inferior costal margin on the right. Laboratory evaluation with normal white count, elevated T bili that is now down trending, AST elevation. CT scans from January, February, and April with liver mass and thickened gallbladder with stone in the neck. It is unclear if the pain is secondary to possible cholecystitis versus progression of his disease. Discussed with the patient that a surgery would be high risk in his case due to his multitude of comorbidities. Would recommend HIDA scan for further evaluation Non-Hospital Problems Hepatocellular carcinoma This Consult, Assessment, and Plan has been discussed with Dr. Blackwell, Attending Physician Robbie Mccarthy DO [1] No family history on file. [2] Current Facility-Administered Medications Medication Dose Route Frequency Provider Last Rate Last Admin albuterol 108 (90 Base) MCG/ACT inhaler 2 puff 2 puff Inhalation 4x daily PRN Crane, Lexi L, CARDIOLOGY CONSULTANT calcium carbonate (Tums) chewable tablet 500 mg 500 mg Oral q4h PRN Crane, Lexi L, CARDIOLOGY CONSULTANT cyclobenzaprine (Flexeril) tablet 5 mg 5 mg Oral BID PRN Rosa Maria Lexi L, CARDIOLOGY CONSULTANT 5 mg at 05/02/25 0736 escitalopram (Lexapro) tablet 20 mg 20 mg Oral Daily Saadia Cranea L, CARDIOLOGY CONSULTANT 20 mg at 05/03/25 0802 furosemide (Lasix) tablet 20 mg 20 mg Oral Daily Crane, Lxei L, CARDIOLOGY CONSULTANT 20 mg at 05/03/25 0802 HYDROmorphone (Dilaudid) injection 0.5 mg 0.5 mg Intravenous q4h PRN Saadia Cranea L, CARDIOLOGY CONSULTANT 0.5 mg at05/03/25 1406 HYDROmorphone (Dilaudid) tablet 3 mg 3 mg Oral q4h PRN Saadia Cranea L, CARDIOLOGY CONSULTANT 3 mg at 05/03/25 1615 Tiotropium [place] Monohydrate (Spiriva Respimat) 2.5 MCG/ACT inhaler 2 puff 2 puff Inhalation Daily Saadia Cranea Vega, CARDIOLOGY CONSULTANT 2 puff at 05/03/25 0803 And mometasone-formoterol (Dulera 100) 100-5 MCG/ACT inhaler 2 puff 2 puff Inhalation BID Saadia Cranea Vega, CARDIOLOGY CONSULTANT 2 puff at 05/03/25 0804 nicotine (Nicoderm CQ) 21 MG/24HR patch 1 patch 1 patch Transdermal Daily Saadia Cranea Vega, CARDIOLOGY CONSULTANT 1 patch at 05/03/25 0802 piperacillin-tazobactam (Zosyn) 4.5 g in sodium chloride 0.9% 100 mL IVPB (vial adapter required) 4.5 g Intravenous q6h Rosa Maria Lexi Vega, CARDIOLOGY CONSULTANT 36.7 mL/hr at 05/03/25 1230 4.5 g at 09/04/25 1230 sodium chloride 0.9 % flush 10 mL 10 mL Intravenous q12h Lexi Crane, CARDIOLOGY CONSULTANT 10 mL at 05/02/25 2325 And sodium chloride 0.9 % flush 10 mL 10 mL Intravenous PRN Lexi Crane CARDIOLOGY CONSULTANT Cosigned by Kasey Blackwell MD at 05/03/2025 8:42 PM EDT Associated attestation - Kasey Blackwell MD - 05/03/2025 8:42 PM EDT I saw and evaluated the patient with the resident/fellow. I discussed the case with the resident/fellow and agree with the findings and plan as documented. I had a lengthy discussion with the patient and his . He presents with significant right upper quadrant abdominal pain for the past week. He does not related to food but says that occasionally itis better or worse. He does not have nausea or vomiting. He reports that he eats fairly well but his says he eats hardly anything. On examination he has some tenderness in his right upper quadrant epigastric region Reviewing his imaging he does have a distended gallbladder and evidence of stones He has been evaluated by the Surgical Oncology team and the transplant Surgical Service both of which have deferred any intervention for his gallbladder from a surgical perspective. There is believe that this pain may be related to progression of his hepatocellular carcinoma. We have been consultedas the aluminum siding applicator have concerns that his pain is related to acute cholecystitis and would like our opinion. Unfortunately with his signific cirrhosis and liver cancer it is difficult to define exactly what is the cause of his pain. The patient has significant comorbidities and looks quite malnourished and frail. A operative intervention for a cholecystectomy would not be a low risk procedure. I explainedto he and his that I have concerns for his ability to potentially tolerate an operation. I think before we have a very florian discussion about the risks and benefits we need to confirm that this is indeed acute cholecystitis. I think a HIDA scan would be appropriate and if it does indeed confirm evidence of acute cholecystitis we will have to look into options of operative intervention versus cholecystostomy tube placement. Cholecystostomy would obviously be less invasive for him but I am unsure whether it would be able to be successfully placed with his cancer and whether it would allow for him to then go on with treatment for his cancer. But I do have significant concerns about his ability to tolerate an operation particularly laparoscopy and would potentially need an open cholecyste ctomy which could be extremely difficult with this patient's other conditions. I explained all this to the patient and his Kasey Blackwell MD, FACS bus or truck garage mechanic Trauma Acute Care Surgery * Significant Event - Leelee Rod DO - 05/03/2025 12:05 PM EDT This patient presented with RUQ pain and concern for cholecystitis in the setting of hepatocellularcarcinoma. Ultrasound findings are consistent with chronic liver disease or cholecystitis. IM team believes this patient would benefit from a cholecystectomy. Transplant team was consulted as this patient is being followed for HCC. The Transplant team does not do routine cholecystectomies. As this patient is not requiring an open cholecystectomy in the setting of s/p liver transplant, we believe that our team is not best suited for this surgery. We discussed this with our attending, . Thank you for consulting our service. Transplant Surgery will sign off at this time. Cosigned by Haroon Cannon MD at 05/03/2025 12:23 PM EDT Associated attestation - Haroon Cannon MD - 05/03/2025 12:23 PM EDT If the patient is to need a cholecystectomy, I would recommend blue surgery consultation. The patient was previously being worked up for liver transplantation due to cirrhosis and HCC, but unfortunately has tumor in vein and is not a transplant candidate. From a transplant surgery perspective, there is no acute events that require transplant services. * Care Plan - Esme Poe RN - 05/03/2025 9:59 AM EDT Problem: Adult Inpatient Plan of Care Goal: Plan of Care Review Outcome: Ongoing, Progressing Flowsheets (Taken 05/03/2025799) Progress: improving Plan of Care Reviewed With: patient Goal: Absence of Hospital-Acquired Illness or Injury Outcome: Ongoing, Progressing Intervention: Identify and Manage Fall Risk Flowsheets (Taken 05/03/2025799) Safety Promotion/Fall Prevention: activity supervised nonskid shoes/slippers when out of bed clutter-free environment maintained safety round/check completed Intervention: Prevent Skin Injury Flowsheets (Taken 05/03/2025799) Body Position: sitting up in bed weight shifting Skin Protection: incontinence pads utilized Intervention: Prevent and Manage VTE (Venous Thromboembolism) Risk Flowsheets (Taken 05/03/2025799) VTE Prevention/Management: SCDs (sequential compression devices) off Intervention: Prevent Infection Flowsheets (Taken 05/03/2025799) Infection Prevention: hand hygiene promoted environmental surveillance performed rest/sleep promoted single patient room provided Goal: Optimal Comfort and Wellbeing Outcome: Ongoing, Progressing Intervention: Provide Person-Centered Care Flowsheets (Taken 05/03/2025799) Trust Relationship/Rapport: care explained choices provided empathic listening provided emotional support provided thoughts/feelings acknowledged reassurance provided questions encouraged questions answered Problem: Pain Acute Goal: Optimal Pain Control and Function Outcome: Ongoing, Progressing Intervention: Optimize Psychosocial Wellbeing Flowsheets (Taken 05/03/2025799) Supportive Measures: active listening utilized relaxation techniques promoted self-care encouraged positive reinforcement provided Diversional Activities: television smartphone Spiritual Activities Assistance: affirmation provided Intervention: Prevent or Manage Pain Flowsheets (Taken 05/03/2025799) Bowel Elimination Promotion: adequate fluid intake promoted Sleep/Rest Enhancement: relaxation techniques promoted regular sleep/rest pattern promoted Medication Review/Management: medications reviewed * Care Plan - Karen Avila - 05/03/2025 4:58 AM EDT Problem: Adult Inpatient Plan of Care Goal: Plan of Care Review Outcome: Ongoing, Progressing Flowsheets (Taken 05/03/2025 0459) Progress: no change Plan of Care Reviewed With: patient Goal: Absence of Hospital-Acquired Illness or Injury Outcome: Ongoing, Progressing Intervention: Identify and Manage Fall Risk Flowsheets (Taken 05/03/2025455) Safety Promotion/Fall Prevention: activity supervised nonskid shoes/slippers when out of bed Intervention: Prevent Skin Injury Flowsheets (Taken 05/02/20251827 by Jayy Benítez, NIURKA) Body Position: neutral body alignment weight shifting Skin Protection: protective footwear used Intervention: Prevent and Manage VTE (Venous Thromboembolism) Risk Flowsheets (Taken 05/02/20252041) VTE Prevention/Management: SCDs (sequential compression devices) off Intervention: Prevent Infection Flowsheets (Taken 05/02/20251827 by Jayy Benítez, RN) Infection Prevention: hand hygiene promoted rest/sleep promoted Goal: Optimal Comfort and Wellbeing Outcome: Ongoing, Progressing Intervention: Monitor Pain and Promote Comfort Flowsheets (Taken 05/03/2025455) Pain Management Interventions: medication (see MAR) rest Intervention: Provide Person-Centered Care Flowsheets (Taken 05/02/20251827 by Jayy Benítez, NIURKA) Trust Relationship/Rapport: care explained questions answered questions encouraged emotional support provided thoughts/feelings acknowledged * Care Plan - Jayy Benítez RN - 05/02/2025 6:30 PM EDT Problem: Adult Inpatient Plan of Care Goal: Plan of Care Review Flowsheets (Taken 05/02/20251827) Progress: no change Plan of Care Reviewed With: patient Goal: Absence of Hospital-Acquired Illness or Injury Outcome: Ongoing, Progressing Intervention: Identify and Manage Fall Risk Flowsheets (Taken 05/02/20251827) Safety Promotion/Fall Prevention: activity supervised clutter-free environment maintained nonskid shoes/slippers when out of bed safety round/check completed Intervention: Prevent Skin Injury Flowsheets (Taken 05/02/20251827) Body Position: neutral body alignment weight shifting Skin Protection: protective footwear used Intervention: Prevent and Manage VTE (Venous Thromboembolism) Risk Flowsheets (Taken 05/02/2025 1153) VTE Prevention/Management: bilateral SCDs (sequential compression devices) off education provided Intervention: Prevent Infection Flowsheets (Taken 05/02/20251827) Infection Prevention: hand hygiene promoted rest/sleep promoted Goal: Optimal Comfort and Wellbeing Outcome: Ongoing, Progressing Intervention: Monitor Pain and Promote Comfort Flowsheets (Taken 05/02/20251827) Pain Management Interventions: rest position adjusted pillow support provided Intervention: Provide Person-Centered Care Flowsheets (Taken 05/02/20251827) Trust Relationship/Rapport: care explained questions answered questions encouraged emotional support provided thoughts/feelings acknowledged * Progress Notes - Ang Will MD - 05/02/2025 2:05 PM EDT Subjective I still have some pain , no nausea or vomiting' Review of Systems Constitutional: Negative for chills and fever. Respiratory: Negative for apnea, cough and chest tightness. Cardiovascular: Negative for chest pain and leg swelling. Gastrointestinal: Positive for abdominal distention. Objective Vitals Temp: [36.4 ??C (97.6 ??F)-37.5 ??C (99.5 ??F)] 37.1 ??C (98.8 ??F) Heart Rate: [70-87] 78 Resp: [16-23] 18 BP: (96-152)/(50-74) 105/72 Physical Exam Vitals and nursing note reviewed. Constitutional: General: He is not in acute distress. Appearance: He is not toxic-appearing. HENT: Mouth/Throat: Mouth: Mucous membranes are moist. Cardiovascular: Rate and Rhythm: Normal rate and regular rhythm. Pulses: Normal pulses. Heart sounds: Normal heart sounds. Pulmonary: Effort: Pulmonary effort is normal. Breath sounds: Normal breath sounds. Abdominal: General: Abdomen is flat. There is distension. Palpations: Abdomen is soft. Tenderness: There is abdominal tenderness. There is no right CVA tenderness, guarding or rebound. Neurological: Mental Status: He is alert. Assessment & Plan Rl Steward is a 65 y.o. male PMHx of COPD, tobacco dependence, ischemic heart disease, coronaryartery disease, anxiety, depression, chronic back pain, decompensated cirrhosis, and newly diagnosed hepatocellular carcinoma that presented to the emergency department as a transfer from [facility] with RUQ pain and concern for cholecystitis in the setting of hepatocellular carcinoma. #RQU abdominal pain (POA) #Elevated lactate (POA) #Hyperbilirubinemia (POA) #Transaminitis (POA) #Jaundice (POA) -05/01: ALT: 22 AST: 248 T. Bili: 2.32 lactate: 2.5 -RUQ US: Cholelithiasis. Significant gallbladder wall thickening could be secondary to chronic liver disease or cholecystitis. There is trace pericystic free fluid. -Received 1L bolus in the ED + Started on zosyn in the ED. -Surgical Oncology + Transplant Surgery consulted from ED- both feel no concern of acute dougie - for the elevated bili- ordered fractions and consulted Hepatology #Cirrhosis decompensated (POA) #Hepatocellular carcinoma (POA) #Cancer related pain (POA0 -Receiving chemotherapy at [facility]. Last dose of chemo was on 03/29. No further chemo has been given due to elevated bilirubin. 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 #Normocytic Anemia (POA) -Admission labs: H/H: 13.2/37.8 MCV: 93 Suspect multifactorial etiology - DDX includes but not limited too acute blood loss, acute illness,anemia of chronic disease/inflammation, iron/vitamin B12/folate deficiency, hemodilution, sub-optimal nutrition, bone marrow process, hemolysis &/or iatrogenic from blood draws. PLAN -Monitor Hgb -Transfuse if Hgb < 7.0 #Hypoalbuminemia (POA) Increases overall morbidity & mortality. -Monitor albumin -Consult Spray Gun Striper -Continue megace #Nicotine dependence (POA) -Smokes about 1/2 PPD -Nicotine patch -Smoking cessation counseling at discharge #COPD (POA) -Continue home albuterol and Trelegy #Constipation (POA) -Continue home senna #Chronic back pain (POA) -Continue home cyclobenzaprine #Diet: Reg #VTE Prophylaxis: This patient does not have an active medication from one of the medication groupers. #Disposition: pending hospital course #Code Status: Prior #Bowel Regimen: senna Medically Ready for Discharge:Anticipated in 2-4 Days * Progress Notes - Cristobal Marte Manisha - 05/02/2025 2:01 PM EDT Case Management Adult Initial Progress Note Rl Steward 65 y.o. male CSN: [id number] Admission: 05/01/2025 4:53 PM Primary Problem: Abdominal pain Director Dance reviewed chart and spoke with patient and spouse at bedside to complete this Initial Case Management Assessment. PCP: Cr Resendez MD in [place], [place] Emergency Contact: Extended Emergency Contact Information Primary Emergency Contact: Ashley Steward [facility] Relation: Spouse Preferred language: Lithuanian Optician Manager needed? No Insurance: Primary Visit Coverage Payer Plan Sponsor Code Group Number Group Name MEDICARE MEDICARE A & B Primary Visit Coverage Subscriber Subscriber ID Subscriber Name Subscriber SSN Subscriber Address [id number] [id number] [address] [place] [address] Secondary Visit Coverage Payer Plan Sponsor Code Group Number Group Name [place] MED[place] [facility] Secondary Visit Coverage Subscriber Subscriber ID Subscriber Name Subscriber SSN Subscriber Address [id number] [address] [id number] [address] [place] [address] Patient information: Primary Caregiver: Self Support System: Immediate family Daily Living Activities: Functional Status: Independent Living Arrangements: Spouse/Significant other Type of Residence: Private residence, Multi Level (stays on main floor; 2 steps for entry) [address] [facility] [address] Current DME: Equipment Currently Used at Home: none Income Information: Income/Expense Information: Income meets expenses Anticipated Discharge Date: TBD Patient's Discharge Goal: Return home Assistance Available at Discharge: Spouse & son Discharge Transport: Spouse Follow Up Transport: Spouse/Son Home Health / Home Infusion / Outpatient Dialysis Services: None Living Will/Advance Directive/Power of Grounds Keeper /Guardian: None Additional Comments: Pt confirmed address, EC, and insurance. Pt sees Cr Resendez in [place], [place] for primary care. Pt lives with his spouse in a 2-story home, with 2 steps for entry (Pt stays on the main floor). Pt relies upon his spouse or son for transport. Pt's spouse to provide transport home and assistance, as needed. Pt denies DME, HH, O2, infusions, HD, and POA/LW. Cristobal Marte * Consults - Keaton Ponce MD - 05/02/2025 12:44 PM EDTAssociated Order(s): Inpatient consult to gastroenterology Images from the original note were not included. Inpatient consult to gastroenterology Consult performed by: Keaton Ponce MD Consult ordered by: Ang Will MD Gastroenterology Consult Note Reason for Consult: #Hyperbilirubinemia HPI Rl Steward is a 65 y.o. 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 Hepatology is consulted for hyperbilirubinemia in the setting of HCC. Patient known to the Transplant surgery Service, following with them in the outpatient setting. Currently not a surgical candidate setting of HCC complicated by tumor in vein. He is on outpatient Atezolizumab, fusion approximately 1 month prior. Additionally with plans for Y90 chemoembolization although he has not received this treatment yet. Patient presents to the emergency department with a chief complaint of 4 days of right upper quadrant pain. At an outside hospital he underwent CT imaging concerning for possible cholecystitis and was subsequently transferred to [facility] for further evaluation. Seen by both surgical oncology and transplant surgery lower suspicion for biliary pathology that would require immediate surgical intervention. He is afebrile, normotensive with heart rate in the 80s since arrival. CBC with mild stable anemia and thrombocytopenia. INR 1.1. Electrolytes and kidney function largely within normal limits. AST elevated to 241, alk phos to 200 although these are downtrending from prior. Bilirubin is elevated at 2.6. Right upper quadrant ultrasound 05/01: Gallstone lodged in the neck of the gallbladder, pericystic free fluid, CBD 5 mm without intra or extrahepatic biliary ductal dilation. No ascites. Patent portal vein. ROS All systems reviewed and negative unless otherwise noted in HPI. Past Medical History[1] Surgical History[2] Family History[3] Social History[4] Objective Vitals: 05/02/25 0735 05/02/25 0735 05/02/25 0836 05/02/25 1107 BP: 129/74 105/72 BP Location: Right arm Right arm Patient Position: Lying Lying Pulse: 86 81 78 Resp: 18 17 18 Temp: 37.5 ??C (99.5 ??F) 37.1 ??C (98.8 ??F) TempSrc: Oral SpO2: (!) 89% 97% 94% Weight: Height: BMI: Body mass index is 20.62 kg/m??. Physical Exam: General Awake, NAD Eyes EOMI, scleral icterus present Head NC/AT ENT OP moist. Hearing grossly normal. CV Warm and well perfused RES Equal chest rise, normal effort on room air GI Soft. NT/ND. No rebound, guarding. JEFF AAOx4. No gross deficits. EXT No cyanosis. No edema Skin No visible skin lesions PSY Appropriate mood and affect I/O: I/O last 3 completed shifts: In: 100 (1.6 mL/kg) [IV Piggyback:100] Out: - (0 mL/kg) Weight: 61.5 kg No intake/output data recorded. Labs: CBC: Results from last 7 days Lab Units 05/02/25 0207 05/01/25 1754 WBC 10*3/uL 6.14 6.23 HEMOGLOBIN g/dL 13.3* 13.2* HEMATOCRIT % 39.3* 37.8* PLATELETS 10*3/uL 126* 118* CMP: Results from last 7 days Lab Units 05/02/25 0207 05/01/25 1754 SODIUM mmol/L 136 137 POTASSIUM mmol/L 3.8 4.0 CHLORIDE mmol/L 101 101 CO2 mmol/L 25 22 BUN mg/dL 16 16 CREATININE mg/dL 0.84 0.82 CALCIUM mg/dL 9.1 8.7* BILIRUBIN TOTAL mg/dL 2.6* 2.2* ALKALINE PHOSPHATASE U/L 200* 208* ALT U/L 23 22 AST U/L 241* 248* GLUCOSE mg/dL 106* 93 Microbiology/Abx: Antimicrobials Penicillin Combinations Disp Start End piperacillin-tazobactam (Zosyn) 3.375 g in sodium chloride 0.9% 100 mL IVPB (vial adapter required)(Completed) -- 05/01/2025 05/01/2025 3.375 g, Intravenous, Once @ 220 mL/hr, Assemble vial with 100 mL NS and BBraun addEase device (green cap). piperacillin-tazobactam (Zosyn) 4.5 g in sodium chloride 0.9% 100 mL IVPB (vial adapter required) -- 05/02/2025 -- 4.5 g, Intravenous, Every 6 hours @ 36.7 mL/hr, Assemble vial with 100 mL NS and BBraun addEase device (green cap). Sodium Disp Start End piperacillin-tazobactam (Zosyn) 3.375 g in sodium chloride 0.9% 100 mL IVPB (vial adapter required)(Completed) -- 05/01/2025 05/01/2025 3.375 g, Intravenous, Once @ 220 mL/hr, Assemble vial with 100 mL NS and BBraun addEase device (green cap). piperacillin-tazobactam (Zosyn) 4.5 g in sodium chloride 0.9% 100 mL IVPB (vial adapter required) -- 05/02/2025 -- 4.5 g, Intravenous, Every 6 hours @ 36.7 mL/hr, Assemble vial with 100 mL NS and BBraun addEase device (green cap). Results No results found for the last 48 hours. Imaging: @IMAGES@ Medications (scheduled): Current Scheduled Medications[5] Medications (continous): Current Continuous Medications[6] Medications (PRN): Current PRN Medications[7] Assessment and Plan Rl Steward is a 65 y.o. 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 Hepatology is consulted for hyperbilirubinemia in the setting of HCC. # Cirrhosis c/b HCC # Abdominal Pain # Cholelithiasis, Symptomatic w/Concern for Cholecysitis # Hyperbilirubinemia - MELD Na: MELD 3.0: 13 at 05/02/2025 2:07 AM MELD-Na: 11 at 05/02/2025 2:07 AM Calculated from: Serum Creatinine: 0.84 mg/dL (Using min of 1 mg/dL) at 05/02/2025 2:07 AM Serum Sodium: 136 mmol/L at 05/02/2025 2:07 AM Total Bilirubin: 2.6 mg/dL at 05/02/2025 2:07 AM Serum Albumin: 2.8 g/dL at 05/02/2025 2:07 AM INR(ratio): 1.1 at 05/02/2025 2:07 AM Age at listing (hypothetical): 65 years Sex: Male at 05/02/2025 2:07 AM --Patient known to the Transplant surgery Service, following with them in the outpatient setting. Currently not a surgical candidate setting of HCC complicated by tumor in vein. He is on outpatient Atezolizumab, fusion approximately 1 month prior. Additionally with plans for Y90 chemoembolization although he has not received this treatment yet. --He is afebrile, normotensive with heart rate in the 80s since arrival. CBC with mild stable anemia and thrombocytopenia. INR 1.1. Electrolytes and kidney function largely within normal limits. AST elevated to 241, alk phos to 200 although these are downtrending from prior. Bilirubin is acutely elevated at 2.6. --Right upper quadrant ultrasound 05/01: Cholelithiasis with gallstone lodged in the neck of the gallbladder, pericystic free fluid, CBD 5 mm without intra or extrahepatic biliary ductal dilation. No ascites. Patent portal vein. RECOMMENDATIONS: Would engage appropriate surgical team to discuss patient presentation and imaging findings with right upper quadrant ultrasound as above. Agree with abx. Please send a Peth and creatinine kinase with next set of labs. No clear history of decompensation. We will continue to follow. Staffed w/ attending: Dr. Waddell Thank you for allowing us to participate in this patient's care. Please do not hesitate to call or page with questions or concerns. Keaton Ponce MD PGY-5 Gastroenterology Fellow [facility] [1] Past Medical History: Diagnosis Date COPD (chronic obstructive pulmonary disease) (CMS/HCC) Liver cancer (CMS/HCC) Mitral valve prolapse Myocardial infarction (CMS/HCC) [2] Past Surgical History: Procedure Laterality Date BACK SURGERY 1997 CARDIAC SURGERY 2003 CARDIAC SURGERY 2005 HERNIA REPAIR 1999 Chest Area NECK SURGERY 2024 [3] No family history on file. [4] Social History Tobacco Use Smoking status: Every Day Current packs/day: 0.50 Average packs/day: 0.5 packs/day for 7.7 years (3.8 ttl pk-yrs) Types: Cigarettes Start date: 2017 Smokeless tobacco: Never [5] escitalopram, 20 mg, Oral, Daily furosemide, 20 mg, Oral, Daily Tiotropium [place] Monohydrate, 2 puff, Inhalation, Daily And mometasone-formoterol, 2 puff, Inhalation, BID nicotine, 1 patch, Transdermal, Daily piperacillin-tazobactam, 4.5 g, Intravenous, q6h sodium chloride, 10 mL, Intravenous, q12h [6] lactated Ringer's, 75 mL/hr, Last Rate: 75 mL/hr (05/02/25 0451) [7] PRN medications: albuterol, calcium carbonate, cyclobenzaprine, HYDROmorphone, HYDROmorphone, Insert peripheral IV AND Saline lock IV AND sodium chloride AND sodium chloride Cosigned by Tremaine Waddell MD at 05/07/2025 8:15 AM EDT Associated attestation - Tremaine Waddell MD - 05/07/2025 8:15 AM EDT I saw and evaluated the patient with the resident/fellow. I discussed the case with the resident/fellow and agree with the findings and plan as documented. * Care Plan - Karen Avila - 05/02/2025 6:26 AM EDT Problem: Adult Inpatient Plan of Care Goal: Plan of Care Review 05/02/2025625 by Karen Avila Outcome: Ongoing, Progressing 05/02/2025625 by Karen Avila Outcome: Ongoing, Progressing Goal: Patient-Specific Goal (Individualized) 05/02/2025625 by Karen Avila Outcome: Met 05/02/2025625 by Karen Avila Outcome: Ongoing, Progressing Goal: Absence of Hospital-Acquired Illness or Injury 05/02/2025625 by Karen Avila Outcome: Ongoing, Progressing 05/02/2025625 by Karen Avila Outcome: Ongoing, Progressing Goal: Optimal Comfort and Wellbeing 05/02/2025625 by Karen Avila Outcome: Ongoing, Progressing 05/02/2025625 by Karen Avila Outcome: Ongoing, Progressing * H&P - Lexi Crane APRN - 05/01/2025 9:24 PM EDTAssociated Order(s): Consult to Hospital Medicine Images from the original note were not included. Consult to Hospital Medicine Consult performed by: Lexi Crane APRN Consult ordered by: Willy Saleh MD Reason for consult: Abdominal pain Hospital Medicine History & Physical Rl Steward 05/01/2025 Chief Complaint (CC) Abdominal pain History of Present Illness (HPI) Rl Steward is a 65 y.o. male PMHx of COPD, tobacco dependence, ischemic heart disease, coronaryartery disease, anxiety, depression, chronic back pain, decompensated cirrhosis, and newly diagnosed hepatocellular carcinoma. Mr. Steward presented to the emergency department as a transfer from [facility] with RQU pain. Mr. Steward states that he started having RQU pain about 4 days ago that has progressively gotten worse. He states that the abdominal pain sharp in his intermittent eat. He states that nothing seems to make the pain worse. He states that his pain medication does help with the pain. He states that he does have some intermittent chest pain that he attributes to increased gas and bloating. He has had decreased oral intake. His states that he was recently started on Megace to help with his appetite and this does seem to be helping. He denies any other symptoms at this time including headache, dizziness, cough, sore throat, nausea, vomiting, constipation, diarrhea, lower extremity swelling, and recent falls. Of note he is receiving chemotherapy at [facility]. He has only received 1 dose of chemotherapy on March 29. His states that he was not able to get further doses of chemotherapydue to elevated bilirubin. Mr. Steward helps provide history, and son at the bedside also help provide history. Supplemental information obtained via chart review. Mr. Steward remains afebrile and hemodynamically stable. Mr. Steward will be admitted to Hospital Medicine for further work up and treatment. Past Medical History (PMH): Past Medical History[1] Past Surgical History (PSH): Surgical History[2] Home Medications: Current Outpatient Medications Medication Instructions acetaminophen (TYLENOL) 1,000 mg, 2 times daily PRN albuterol 108 (90 Base) MCG/ACT inhaler 2 puffs, 4 times daily PRN aspirin 81 mg, ZZ Daily RT bisoprolol (ZEBETA) 5 mg, Daily calcium carbonate (TUMS) 500 mg, Oral, Every 4 hours PRN clopidogrel (PLAVIX) 75 mg, ZZ Daily RT clotrimazole (Lotrimin) 1 % cream 1 Application, As needed cyclobenzaprine (FLEXERIL) 5 mg, Every 8 hours PRN [Paused] Entresto 24-26 MG tablet 1 tablet, 2 times daily escitalopram (LEXAPRO) 20 mg, ZZ Daily RT furosemide (LASIX) 20 mg, Daily HYDROmorphone (DILAUDID) 3 mg, Oral, Every 4 hours PRN Jardiance 10 mg, Daily naloxone (Narcan) 4 mg/0.1 mL nasal spray 1. Give 1 spray in nostril for no/slow breathing or cannot wake after opioid use 2. Call 911 3. Repeat in other nostril if symptoms continue nitroglycerin (NITROSTAT) 0.4 mg, Sublingual, Every 5 min PRN ondansetron ODT (ZOFRAN-ODT) 4 mg, Oral, Every 6 hours PRN polyethylene glycol (MIRALAX) 17 g, Oral, Daily senna (SENOKOT) 17.2 mg, Oral, Nightly Trelegy Ellipta 100-62.5-25 MCG/ACT aerosol powder INHALE 1 PUFF INTO THE LUNGS DAILY AT 0900. Allergies: Allergies[3] Family History (FH): Family History[4] Social History (SH): Social History Socioeconomic History Marital status: Spouse name: Not on file Number of children: Not on file Years of education: Not on file Highest education level: Not on file Occupational History Not on file Tobacco Use Smoking status: Every Day Current packs/day: 0.50 Average packs/day: 0.5 packs/day for 7.7 years (3.8 ttl pk-yrs) Types: Cigarettes Start date: 2017 Smokeless tobacco: Never Substance and Sexual Activity Alcohol use: Not on file Drug use: Not on file Sexual activity: Not on file Other Topics Concern Not on file Social History Narrative Not on file Social Drivers of Health Financial Resource Strain: Not on file Food Insecurity: Patient Declined (12/07/2024) Received from [facility] Hunger Vital Sign Within the past 12 months, you worried that your food would run out before you got the money to buymore.: Patient declined Within the past 12 months, the food you bought just didn't last and you didn't have money to get more.: Patient declined Transportation Needs: Patient Declined (12/07/2024) Received from [facility] PRAPARE - Transportation Lack of Transportation (Medical): Patient declined Lack of Transportation (Non-Medical): Patient declined Physical Activity: Not on file Stress: Not on file Social Connections: Not on file Intimate Partner Violence: Not on file Housing Stability: Patient Declined (12/07/2024) Received from [facility] Housing Stability Vital Sign In the last 12 months, was there a time when you were not able to pay the mortgage or rent on time?: Patient declined In the past 12 months, how many times have you moved where you were living?: 0 At any time in the past 12 months, were you homeless or living in a [place] facility (including now)?: Patient declined ROS: Review of Systems Constitutional: Positive for activity change, appetite change and fatigue. Negative for chills and fever. HENT: Negative. Respiratory: Negative for cough and shortness of breath. Cardiovascular: Negative for chest pain and leg swelling. Gastrointestinal: Positive for abdominal distention and abdominal pain. Negative for constipation, diarrhea, nausea and vomiting. Genitourinary: Negative. Musculoskeletal: Positive for back pain. Neurological: Negative. Psychiatric/Behavioral: Negative. Physical Exam Vitals: Vitals: 05/01/25 1705 05/01/25 1743 05/01/25 1844 05/01/25 2109 BP: (!) 142/51 115/50 Pulse: 70 87 Resp: 17 Temp: 36.4 ??C (97.6 ??F) 36.8 ??C (98.3 ??F) TempSrc: Oral SpO2: 98% 98% 97% Weight: 63.6 kg (140 lb 3.4 oz) Height: 1.727 m (5' 8 ) BMI: Body mass index is 21.32 kg/m??. Physical Exam Constitutional: General: He is not in acute distress. Appearance: He is ill-appearing. HENT: Mouth/Throat: Mouth: Mucous membranes are dry. Eyes: Pupils: Pupils are equal, round, and reactive to light. Cardiovascular: Rate and Rhythm: Normal rate and regular rhythm. Pulmonary: Effort: Pulmonary effort is normal. Breath sounds: Normal breath sounds. Abdominal: General: There is distension. Palpations: Abdomen is soft. Tenderness: There is abdominal tenderness. There is no right CVA tenderness or left CVA tenderness. Musculoskeletal: Right lower leg: No edema. Left lower leg: No edema. Skin: General: Skin is warm and dry. Coloration: Skin is jaundiced. Neurological: Mental Status: He is alert and oriented to person, place, and time. Motor: Weakness present. Psychiatric: Mood and Affect: Mood normal. Behavior: Behavior normal. Labs & Imaging Labs: Renal Panel: Lab Results Component Value Date NA 137 05/01/2025 K 4.0 05/01/2025 CL 101 05/01/2025 CO2 22 05/01/2025 BUN 16 05/01/2025 MBD: Lab Results Component Value Date CALCIUM 8.7 (L) 05/01/2025 CBC: Lab Results Component Value Date WBC 6.23 05/01/2025 RBC 4.08 (L) 05/01/2025 HGB 13.2 (L) 05/01/2025 HCT 37.8 (L) 05/01/2025 PLT 118 (L) 05/01/2025 MCV 93 05/01/2025 MCH 32.4 (H) 05/01/2025 MCHC 34.9 05/01/2025 RDW 15.0 (H) 05/01/2025 NRBC 0.0 05/01/2025 Iron studies: No results found for: TIBC Imaging: Imaging reviewed by me. US Abdomen RUQ Result Date: 05/01/2025 Cholelithiasis. Significant gallbladder wall thickening could be secondary to chronic liver diseaseor cholecystitis. There is trace pericystic free fluid. CRITICAL RESULT: No. COMMUNICATION: Per this written report. Drafted by Vanessa Reid MD on 05/01/2025 8:40 PM Final report signed by Vanessa Reid MD on 05/01/2025 8:43 PM EKG/Echocardiogram: Encounter Date: 05/01/25 EKG now - STAT (adult) Result Value EKG DIAGNOSIS CLASS Abnormal Ventricular Rate 70 Atrial Rate 70 WY Interval 138 QRSD Interval 86 QT Interval 414 QTC Interval 447 P [place] 50 R [place] -53 T Wave [place] 43 Diagnosis Normal sinus rhythm with sinus arrhythmia Diagnosis Left axis deviation Diagnosis Anterior infarct , age undetermined Diagnosis T wave abnormality, consider lateral ischemia Diagnosis Abnormal ECG *Note: Due to a large number of results and/or encounters for the requested time period, some results have not been displayed. A complete set of results can be found in Results Review. No echocardiogram results found for the past 12 months MAR: Scheduled Medication(s): Current Scheduled Medications[5] Continuous Infusion(s): Current Continuous Medications[6] As Needed (PRN) Medication(s): Current PRN Medications[7] Assessment & Plan Rl Steward is a 65 y.o. male PMHx of COPD, tobacco dependence, ischemic heart disease, coronaryartery disease, anxiety, depression, chronic back pain, decompensated cirrhosis, and newly diagnosed hepatocellular carcinoma that presented to the emergency department as a transfer from [facility] with RQU pain and concern for cholecystitis in the setting of hepatocellular carcinoma. #RQU abdominal pain (POA) #Elevated lactate (POA) #Hyperbilirubinemia (POA) #Transaminitis (POA) #Jaundice (POA) -05/01: ALT: 22 AST: 248 T. Bili: 2.32 lactate: 2.5 -RUQ US: Cholelithiasis. Significant gallbladder wall thickening could be secondary to chronic liver disease or cholecystitis. There is trace pericystic free fluid. -Received 1L bolus in the ED. -Started on zosyn in the ED. -Surgical Oncology consulted in the ED: recs appreciated -Transplant Surgery consulted in the ED: recs appreciated PLAN -Continue to monitor -Repeat labs including CMP and lactate -Continue zosyn -IVF LR @ 75 ml/hr #Cirrhosis decompensated (POA) #Hepatocellular carcinoma (POA) #Cancer related pain (POA0 -Receiving chemotherapy at [facility]. Last dose of chemo was on 03/29. No further chemo has been given due to elevated bilirubin. PLAN -Continue home dilaudid 3mg Q4h + PRN IV dilaudid 0.5 mg Q4h -Consult Medical Oncology Ischemic heart diease (POA) HFmrEF (POA) CAD s/p CABG X 4 (POA) -Home medications: Aspirin, Jardiance, bisoprolpol, furosemide, and clopidogrel. #Normocytic Anemia (POA) -Admission labs: H/H: 13.2/37.8 MCV: 93 Suspect multifactorial etiology - DDX includes but not limited too acute blood loss, acute illness,anemia of chronic disease/inflammation, iron/vitamin B12/folate deficiency, hemodilution, sub-optimal nutrition, bone marrow process, hemolysis &/or iatrogenic from blood draws. PLAN -Monitor Hgb -Transfuse if Hgb < 7.0 #Hypoalbuminemia (POA) Increases overall morbidity & mortality. -Monitor albumin -Consult Spray Gun Striper -Continue megace #Nicotine dependence (POA) -Smokes about 1/2 PPD -Nicotine patch -Smoking cessation counseling at discharge #COPD (POA) -Continue home albuterol and Trelegy #Constipation (POA) -Continue home senna #Chronic back pain (POA) -Continue home cyclobenzaprine #Diet: NPO #VTE Prophylaxis: This patient does not have an active medication from one of the medication groupers. #Disposition: pending hospital course #Code Status: Prior #Bowel Regimen: maureenna Lexi Crane APRN Department of Internal Medicine Division of [facility] Medicine Secure chat preferred Pager: [phone] [1] Past Medical History: Diagnosis Date COPD (chronic obstructive pulmonary disease) (CMS/HCC) Liver cancer (CMS/HCC) Mitral valve prolapse Myocardial infarction (CMS/HCC) [2] Past Surgical History: Procedure Laterality Date BACK SURGERY 1997 CARDIAC SURGERY 2003 CARDIAC SURGERY 2005 HERNIA REPAIR 1999 Chest Area NECK SURGERY 2024 [3] Allergies Allergen Reactions Duloxetine Unknown - Patient states they do not know rxn details Gabapentin Other - please document in the comment field Agitation, irritability Tape/Bandaid Adhesive Rash Pt reports it rips skin off [4] No family history on file. [5] [6] [7] * Consults - Tr Abbott MD - 05/01/2025 8:50 PM EDTAssociated Order(s): Consult to Transplant Surgery(Renal,Liver) Consult to Transplant Surgery(Renal,Liver) Consult performed by: Tr Abbott MD Consult ordered by: Willy Saleh MD Reason For Consult Suspected cholecystitis, history of HCC Requesting Service: Emergency History Of Present Illness Rl Steward is a 65 y.o. male presenting with right upper quadrant pain. The patient has seen usin clinic before for his recently diagnosed HCC. LIRAD TIV. Not a surgical candidate. Recommended to start systemic chemotherapy and y-90. Had first infusion of chemotherapy 1 month ago. Started withright upper quadrant pain about 5 days ago. Is not related to food. Started randomly. Pain is relati vely constant but has occasional flares. It is located to the right upper quadrant starting from his epigastrium going to his right flank. Presented to his scheduled echo today, due to his pain he was recommended to come to the ED for evaluation. White count is normal at 6.23. INR is normal at 1.1. ALT is normal. AST is elevated 248, however this is overall down from 621 about 2 months ago. T bili is acutely elevated at 2.2. Was normal 2 months ago. Right upper quadrant ultrasound with gallstones, some wall thickening, trace amount pericholecystic fluid. Was evaluated by Surgical oncology who recommended consultation with us given he is established with us for his HCC. Medical/Surgical/Social/Family History I have reviewed and updated the patient history. Allergies Duloxetine, Gabapentin, and Tape/bandaid adhesive Medications Current Medications[1] Review of Systems Review of Systems Relevant review of systems was obtained as able and is negative unless stated above in HPI. Vitals Temp: [36.4 ??C (97.6 ??F)] 36.4 ??C (97.6 ??F) Heart Rate: [70] 70 Resp: [16-17] 16 BP: (142)/(51) 142/51 Physical Exam GEN: no apparent distress HENT: atraumatic, normocephalic RESP: no respiratory distress, symmetric chest rise CV: appears well perfused, normal rate ABD: Right upper quadrant pain. Starting from the epigastrium, goes down the right inferior costal margin to the right flank. Worse with palpation along the entire border. Otherwise soft, not peritonitic. MSK/EXT: no apparent deformities, strength/tone normal SKIN: warm and well perfused, no rashes : deferred NEURO/PSYCH: baseline Results Review CT scan with cholelithiasis. Mild thickening of the gallbladder wall. Trace amount of free fluid around the gallbladder. Ultrasound with similar findings CBD is measured at 0.5 cm. WBC:6.23 Hgb:13.2 (L) Hct:37.8 (L) Plt:118 (L) Gluc:93 Cr:0.82 BUN:16 Na:137 K:4.0 M.9 Phos:?? Alkphos:208 (H) ALT:22 AST:248 (H) Tbili:2.2 (H) I have reviewed the latest lab and imaging results. Assessment & Plan 65-year-old male with a history of HCC who is presenting to the ED for evaluation right upper quadrant pain. Pain started 5 days ago. Not postprandial. Is constant with random flares. Worsened with cough, movement, palpation. On exam is tender across the entire right inferior costal margin. Labs reveal a normal white count. Elevated AST but is overall downtrending. T bili is 2.2 which is acutely elevated. CT done with gallstones, mild thickening of the wall, trace free fluid. Ultrasound with similar findings. Common bile duct is measured at 0.5 cm. Overall low suspicion for gallbladder etiology of his symptoms. We do have concern that there is progression of his disease causing his symptoms. He is not a surgical candidate, and there is no current indication for intervention by us. Would recommend admission to Medicine for further workup of his hyperbilirubinemia and right upper quadrantpain in the setting of HCC. TXP will continue to follow. [1] No current facility-administered medications for this encounter. Current Outpatient Medications Medication Sig Dispense Refill acetaminophen (Tylenol) 500 MG tablet Take 2 [...] needed for indigestion or heartburn. 30 tablet 0 clopidogrel (Plavix) 75 MG tablet Take 1 tablet by mouth 1 time each day. clotrimazole (Lotrimin) 1 % cream Apply 1 Application topically as needed. cyclobenzaprine (Flexeril) 5 MG tablet Take 1 tablet by mouth every 8 hours as needed. [Paused] Entresto 24-26 MG tablet Take 1 tablet by mouth 2 times a day. escitalopram (Lexapro) 20 MG tablet Take 1 tablet by mouth 1 time each day. furosemide (Lasix) 20 MG tablet Take 1 tablet by mouth daily. HYDROmorphone (Dilaudid) 2 MG tablet Take 1.5 tablets by mouth every 4 hours as needed for severe pain. 90 tablet 0 Jardiance 10 MG Take 1 tablet by mouth daily. naloxone (Narcan) 4 mg/0.1 mL nasal spray 1. Give 1 spray in nostril for no/slow breathing or cannot wake after opioid use 2. Call 911 3. Repeat in other nostril if symptoms continue nitroglycerin (Nitrostat) 0.[address] 1 tablet under the tongue every 5 minutes as needed for chest pain. ondansetron ODT (Zofran-ODT) 4 MG disintegrating tablet Dissolve 1 tablet on the tongue every 6 hours as needed for nausea or vomiting. 20 tablet 0 polyethylene glycol (Miralax) 17 g packet Take 17 g by mouth daily. 30 each 5 senna (Senokot) 8.6 MG tablet Take 2 tablets by mouth nightly. 60 tablet 5 Trelegy Ellipta 100-62.5-25 MCG/ACT aerosol powder INHALE 1 PUFF INTO THE LUNGS DAILY AT 0900. Cosigned by Haroon Cannon MD at 05/02/2025 7:27 AM EDT Associated attestation - Haroon Cannon MD - 05/02/2025 7:27 AM EDT Signature only. Haroon Cannon MD * Consults - Tr Abbott MD - 05/01/2025 8:50 PM EDTAssociated Order(s): Consult to Surgical Oncology Consult to Surgical Oncology Consult performed by: Tr Abbott MD Consult ordered by: Willy Saleh MD Reason For Consult Concern for Cholecystitis with history of HCC Requesting Service: Emergency History Of Present Illness Rl Steward is a 65 y.o. male presenting with right upper quadrant pain. The patient was recently diagnosed with HCC about 3 months ago. Was evaluated by transplant surgery here, currently not a candidate for resection so plan was to start systemic chemotherapy and y-90. Has received his 1st transfusion of chemotherapy 1 month ago. Then started with right upper quadrant pain about 5 days ago. Is not related to food. Started randomly. Pain is relatively constant but has occasional flares. It is located to the right upper quadrant starting from his epigastrium going to his right flank. Presented to his scheduled echo today, due to his pain he was recommended to come to the ED for evaluation. We have been consulted for concerns of cholecystitis in the setting of HCC. White count is normal at 6.23. INR is normal at 1.1. ALT is normal. AST is elevated 248, however this is overall down from 621 about 2 months ago. T bili is acutely elevated at 2.2. Was normal 2 months ago. Right upper quadrant ultrasound with gallstones, some wall thickening, trace amount pericholecystic fluid. Medical/Surgical/Social/Family History I have reviewed and updated the patient history. Allergies Duloxetine, Gabapentin, and Tape/bandaid adhesive Medications Current Medications[1] Review of Systems Review of Systems Relevant review of systems was obtained as able and is negative unless stated above in HPI. Vitals Temp: [36.4 ??C (97.6 ??F)] 36.4 ??C (97.6 ??F) Heart Rate: [70] 70 Resp: [16-17] 16 BP: (142)/(51) 142/51 Physical Exam GEN: no apparent distress HENT: atraumatic, normocephalic RESP: no respiratory distress, symmetric chest rise CV: appears well perfused, normal rate ABD: Right upper quadrant pain. Starting from the epigastrium, goes down the right inferior costal margin to the right flank. Worse with palpation along the entire border. Otherwise soft, not peritonitic. MSK/EXT: no apparent deformities, strength/tone normal SKIN: warm and well perfused, no rashes : deferred NEURO/PSYCH: baseline Results Review WBC:6.23 Hgb:13.2 (L) Hct:37.8 (L) Plt:118 (L) Gluc:93 Cr:0.82 BUN:16 Na:137 K:4.0 M.9 Phos:?? Alkphos:208 (H) ALT:22 AST:248 (H) Tbili:2.2 (H) Ultrasound reviewed some wall thickening, very small amount of pericholecystic fluid. I have reviewed the latest lab and imaging results. Assessment & Plan 65-year-old male with a history of HCC we have been consulted for concerns of cholecystitis. His history does not fit gallbladder etiology. He does not have any postprandial symptoms. His pain started randomly. Does not worsened with food. Has random acute flares. CT scan with cholelithiasis, mild wall thickening with small amount of fluid around the gallbladder. Known HCC lesion. Presented to the ED today at the recommendation of Cardiology for his right upper quadrant pain. White count is normal at 6.23. INR is 1.1. AST is 248, however his AST is already elevated. It was 621 1.5 months ago.T bili is acutely elevated at 2.2. It was 0.6 previously. Ultrasound reviewed with very small amount of fluid around the gallbladder. Gallstones present. Given his history, exam, normal wbc, and imaging, we have a low suspicion of his gallbladder as the etiology of his symptoms. No intervention warranted by Surgical Oncology at this time. However recommend talking with transplant surgery given heis established with them with his HCC. [1] No current facility-administered medications for this encounter. Current Outpatient Medications Medication Sig Dispense Refill acetaminophen (Tylenol) 500 MG tablet Take 2 [...] needed for indigestion or heartburn. 30 tablet 0 clopidogrel (Plavix) 75 MG tablet Take 1 tablet by mouth 1 time each day. clotrimazole (Lotrimin) 1 % cream Apply 1 Application topically as needed. cyclobenzaprine (Flexeril) 5 MG tablet Take 1 tablet by mouth every 8 hours as needed. [Paused] Entresto 24-26 MG tablet Take 1 tablet by mouth 2 times a day. escitalopram (Lexapro) 20 MG tablet Take 1 tablet by mouth 1 time each day. furosemide (Lasix) 20 MG tablet Take 1 tablet by mouth daily. HYDROmorphone (Dilaudid) 2 MG tablet Take 1.5 tablets by mouth every 4 hours as needed for severe pain. 90 tablet 0 Jardiance 10 MG Take 1 tablet by mouth daily. naloxone (Narcan) 4 mg/0.1 mL nasal spray 1. Give 1 spray in nostril for no/slow breathing or cannot wake after opioid use 2. Call 911 3. Repeat in other nostril if symptoms continue nitroglycerin (Nitrostat) 0.[address] 1 tablet under the tongue every 5 minutes as needed for chest pain. ondansetron ODT (Zofran-ODT) 4 MG disintegrating tablet Dissolve 1 tablet on the tongue every 6 hours as needed for nausea or vomiting. 20 tablet 0 polyethylene glycol (Miralax) 17 g packet Take 17 g by mouth daily. 30 each 5 senna (Senokot) 8.6 MG tablet Take 2 tablets by mouth nightly. 60 tablet 5 Trelegy Ellipta 100-62.5-25 MCG/ACT aerosol powder INHALE 1 PUFF INTO THE LUNGS DAILY AT 0900. Cosigned by Angelita Hong MD at 05/03/2025 7:16 PM EDT * ED Provider Notes - Juan Carlos Rodriguez DO - 05/01/2025 4:52 PM EDT Images from the original note were not included. - HPI Chief Complaint Patient presents with Abdominal Pain HPI Rl Steward is a 65 y.o. male with past medical history of decompensated cirrhosis complicated by recently diagnosed HCC, ischemic heart disease (HFmrEF, severe CAD, CABG x 4) who presents to the emergency department with complaints of abdominal pain. Patient reports for the past 4 days he has had right upper quadrant abdominal pain that has been progressively worsening. He presented to outside hospital today where he had CT imaging that showed concern for cholecystitis with gallbladder wallthickening and presence of gallstone. There was also a large mass in the region. Patient denies nausea, vomiting, fever, chills, chest pain, shortness for breath, bowel changes, bladder changes, or ot her acute complaint. Patient History Past Medical History[1] Surgical History[2] Family History[3] Social History[4] Allergies: Allergies[5] Physical Exam ED Triage Vitals [05/01/25 1705] Temp Heart Rate Resp BP 36.4 ??C (97.6 ??F) 70 17 (!) 142/51 SpO2 Temp src Heart Rate Source Patient Position 98 % -- -- -- BP Location FiO2 (%) -- -- Physical Exam Vitals and nursing note reviewed. Constitutional: General: He is not in acute distress. Appearance: He is well-developed. HENT: Head: Normocephalic and atraumatic. Eyes: Conjunctiva/sclera: Conjunctivae normal. Cardiovascular: Rate and Rhythm: Normal rate and regular rhythm. Heart sounds: No murmur heard. Pulmonary: Effort: Pulmonary effort is normal. No respiratory distress. Breath sounds: Normal breath sounds. Abdominal: Palpations: Abdomen is soft. Tenderness: There is abdominal tenderness in the right upper quadrant. There is guarding. Musculoskeletal: General: No swelling. Cervical back: Neck supple. Skin: General: Skin is warm and dry. Capillary Refill: Capillary refill takes less than 2 seconds. Coloration: Skin is jaundiced. Neurological: Mental Status: He is alert. Psychiatric: Mood and Affect: Mood normal. Cinthia Coma Scale Score: 15 ED Course & MDM - Assessment: 65 y.o. male presents to ED with complaint of abdominal pain. It should be noted that the chronic conditions includes decompensated cirrhosis complicated by recently diagnosed HCC, ischemic heart disease (HFmrEF, severe CAD, CABG x 4), which currently is not at goal therapy. This complicates the clinical picture because it Comorbidities: may be exacerbating symptoms, increases the amount and complexity of data to be reviewed, complicates the clinical workup, and increases the risk for morbidity Differential Diagnosis: Differential diagnosis includes but is not limited to pancreatitis, gastritis, PUD, gastroparesis, cholecystitis, choledocholithiasis, biliary cholic, ascending cholangitis, hepatic abscess, sequela of malignancy, among others In order to fully explore the differential diagnosis the following treatments and tests were ordered: ED Medication Administration from 05/01/2025 1404 to 05/01/2025 2255 Date/Time Order Dose Route Action 05/01/2025 184 EDT morphine PF 4 mg 4 mg Intravenous Given 05/01/2025 184 EDT piperacillin-tazobactam (Zosyn) 3.375 g in sodium chloride 0.9% 100 mL IVPB (vial adapter required) 3.375 g Intravenous New Bag 05/01/2025 194 EDT lactated Ringer's infusion 1,000 mL 1,000 mL Intravenous New Bag 05/01/20251941 EDT piperacillin-tazobactam (Zosyn) 3.375 g in sodium chloride 0.9% 100 mL IVPB (vial adapter required) 0 g Intravenous Stopped 05/01/20252036 EDT HYDROmorphone (Dilaudid) injection 0.5 mg 0.5 mg Intravenous Given 05/01/2025 223 EDT lactated Ringer's infusion 1,000 mL 0 mL Intravenous Stopped All Other Orders Ordered Status Ordering Provider 05/01/25 2255 Vital Signs Every 4 hours Placed in And Linked Group Acknowledged CRANE, LEXI L 05/01/25 225 Pulse Oximetry Every 4 hours Placed in And Linked Group Acknowledged SAADIA CRANEA L 05/01/25 225 NPO diet Diet effective now Acknowledged SAADIA CRANEA L 05/01/25 225 Full code Continuous Acknowledged SAADIA CRANEA L 05/01/25 225 Sequential compression device Until discontinued Comments: SCDs must be in place and turned on EXCEPT when ACTIVELY ambulating. Acknowledged SAADIA CRANEA L 05/01/252254 Okay To Give Nicotine Replacement Until discontinued Acknowledged CRANESAADIAA L 05/01/25 225 Admit to inpatient Once Completed SAADIA CRANEA L 05/01/25 225 Mobility Orders Until discontinued Acknowledged SAADIA CRANEA L 05/01/252254 Notify physician (specify parameters) Until discontinued Acknowledged SAADIA CRANEA L 05/01/252254 Insert peripheral IV Once Placed in And Linked Group Acknowledged SAADIA CRANEA L 05/01/252254 Saline lock IV Once Placed in And Linked Group Acknowledged SAADIA CRANEA L 05/01/252110 ED to floor bed request Once Completed JUAN CARLOS RODRIGUEZ 05/01/252035 Consult to Hospital Medicine Once Specialty: Internal Medicine Provider: (Not yet assigned) Acknowledged JUAN CARLOS RODRIGUEZ 05/01/252035 Consult to Transplant Surgery(Renal,Liver) Once Provider: (Not yet assigned) Completed JUAN CARLOS RODRIGUZE 05/01/25 194 Consult to Surgical Oncology Once Provider: (Not yet assigned) Completed WILLY SALEH 05/01/25 1900 Once Provider: (Not yet assigned) Canceled WILLY SALEH 05/01/25 1859 US Abdomen RUQ Once Final result WILLY SALEH 05/01/25 1738 CBC w/diff STAT Final result WILLY SALEH 05/01/25 1738 PT-INR STAT Final result WILLY SALEH 05/01/25 1738 CMP STAT Final result WILLY SALEH 05/01/25 1738 Magnesium STAT Final result WILLY SALEH 05/01/25 1738 Lipase STAT Final result WILLY SALEH 05/01/25 1738 Lactic acid, venous STAT Final result WILLY SALEH 05/01/25 1738 Type and screen Start now Final result WILLY SALEH 05/01/25 1738 EKG now - STAT (adult) Once Preliminary result WILLY SALEH ED Course as of 05/01/25 2341 Tue May 01, 20251907 Spoke with EGS - defer to surg-onc [SO] 2029 Discussed the case with surgical oncology who staffed with the attending. Surgical oncology attending recommended consulting transplant surgery who reviewed the case and recommended admission tohospital medicine with the plan for inpatient MRCP, they believe it is likely related to patient's HCC and not gallbladder pathology. Transplant will continue to follow. [TK] ED Course User Index [SO] Willy Saleh MD [TK] Juan Carlos Rodriguez, DO Clinical Impressions as of 05/01/25 2341 Hepatocellular carcinoma RUQ abdominal pain Social Determinates of Health Risks (including Economic Stability, Education and level of understanding, Healthcare access and quality and concerning social factors): None identified on this visit Ultimately, this patient was Was admitted (Admission) The primary encounter diagnosis was Hepatocellular carcinoma. A diagnosis of RUQ abdominal pain was also pertinent to this visit.. Patient believed to require admission for the listed diagnoses. The Internal Medicine service was consulted for admission and was agreeable to admit to Acute Floor (Med/Surg). ED Prescriptions None Disposition Admit Admitting/Attending Physician: BRITNEY RAI [[id number]] Provider Care Team: JHOANA 14 [197] Are they the primary team?: Yes [1] - [1] Past Medical History: Diagnosis Date COPD (chronic obstructive pulmonary disease) (CMS/HCC) Liver cancer (CMS/HCC) Mitral valve prolapse Myocardial infarction (CMS/HCC) [2] Past Surgical History: Procedure Laterality Date BACK SURGERY 1997 CARDIAC SURGERY 2003 CARDIAC SURGERY 2005 HERNIA REPAIR 1999 Chest Area NECK SURGERY 2024 [3] No family history on file. [4] Tobacco Use Smoking status: Every Day Current packs/day: 0.50 Average packs/day: 0.5 packs/day for 7.7 years (3.8 ttl pk-yrs) Types: Cigarettes Start date: 2017 Smokeless tobacco: Never [5] Allergies Allergen Reactions Duloxetine Unknown - Patient states they do not know rxn details Gabapentin Other - please document in the comment field Agitation, irritability Tape/Bandaid Adhesive Rash Pt reports it rips skin off Juan Carlos Rodriguez DO Resident 05/01/25 2341 Cosigned by Willy Saleh MD at 05/02/2025 3:29 PM EDT Associated attestation - Willy Saleh MD - 05/02/2025 3:29 PM EDT I saw and evaluated the patient with the resident/fellow. I discussed the case with the resident/fellow and agree with the findings and plan as documented. * ED Triage Notes - Tana Nunez, RN - 05/01/2025 4:52 PM EDT Patient presents from [facility] where he was seen for RUQ and RLQ for the past 4-5 days. OSH reports gallstones and sent here for surgery consult due to history of liver cancer and extensive cardiac history. documented in this encounter Plan of Treatment Scheduled Orders Name Type Priority Associated Diagnoses Orde r Schedule Clostridiodes (Clostridium) difficile PCR Microbiology Routine Once (Lab) for 1 Occurrences starting 05/04/2025 until 05/04/2025 Scheduled Referrals Name Type Priority Associated Diagnoses Order Schedule Ambulatory referral for Follow Up Care (NO PCP on File) Outpatient Referral Routine RUQ abdominal pain 1 Occurrences starting 05/05/2025 until 11/06/2026 documented as of this encounter Procedures Procedure Name Priority Date/Time Associated Diagnosis Comments NM HEPATOBILIARY SCAN W PHARM CHALLENGE Routine 05/04/2025 1:40 PM EDT PHOSPHATIDYLETHANOL (PETH), WHOLE BLOOD, QUANTITATIVE (SO) Routine 05/04/2025 4:33 AM EDT CREATINE KINASE, TOTAL, PLASMA Routine 05/04/2025 4:33 AM EDT CBC W/O DIFFERENTIAL Routine 05/04/2025 4:33 AM EDT COMPREHENSIVE METABOLIC PANEL, PLASMA Routine 05/04/2025 4:33 AM EDT CBC W/O DIFFERENTIAL Routine 05/03/2025 4:00 AM EDT COMPREHENSIVE METABOLIC PANEL, PLASMA Routine 05/03/2025 4:00 AM EDT CONJUGATED BILIRUBIN, PLASMA Routine 05/02/2025 1:42 PM EDT LACTATE, VENOUS Routine 05/02/2025 2:07 AM EDT PROTHROMBIN TIME(PT) / INR Routine 05/02 2:07 AM EDT CBC WITH AUTO DIFFERENTIAL Routine 05/02 2:07 AM EDT CONJUGATED BILIRUBIN, PLASMA STAT Add-on 05/02/2025 2:07 AM EDT COMPREHENSIVE METABOLIC PANEL, PLASMA Routine 05/02/2025 2:07 AM EDT US ABDOMEN RUQ STAT 05/01/2025 7:43 PM EDT LACTATE, VENOUS STAT 05/01/2025 5:54 PM EDT PROTHROMBIN TIME(PT) / INR STAT 05/01 5:54 PM EDT CBC WITH AUTO DIFFERENTIAL STAT 05/01 5:54 PM EDT TYPE AND SCREEN STAT 05/01/2025 5:54 PM EDT MAGNESIUM, PLASMA STAT 05/01/2025 5:5 4 PM EDT LIPASE, PLASMA STAT 05/01/2025 5:54 PM EDT COMPREHENSIVE METABOLIC PANEL, PLASMA STAT 05/01/2025 5:54 PM EDT ECG ADULT STAT 05/01/2025 5:43 PM EDT documented in this encounter Results * NM Hepatobiliary Scan w Pharm Challenge (05/04/2025 1:40 PM EDT) Anatomical Region Laterality Modality Abdomen Nuclear Medicine Impressions 05/04/2025 3:10 PM EDT Patent cystic duct. No acute cholecystitis. Patent common bile duct. CRITICAL RESULT: No. COMMUNICATION: Per this written report. By electronically signing this report, I, the attending physician, attest that I have personally reviewed the images/data for the above examination(s) and agree with the final edited report. Drafted by Joseline Soliman MD on 05/04/2025 2:16 PM Final report signed by Jewels Black MD on 05/04/2025 3:10 PM Narrative 05/04/2025 3:10 PM EDT CLINICAL INDICATION: Concern for acute cholecystitis. On 05/04/2025, total bilirubin level was 2.1 mg/dL. TECHNIQUE: Preparation: Fasting for 6-24 hours. Premedication (due to prolonged fasting): At least 30 minutes before radiopharmaceutical, 1.2 ug of CCK octapeptide (sincalide, Kinevac) infused intravenously over 10-15 minutes. Immediately following intravenous administration of 4.01 mCi of Tc-99m JOSEPH (Choletec), dynamic images of the abdomen were acquired in the anterior projection for 40 minutes. Static anterior, posterior and/or lateral images of the abdomen were acquired at 1 hour. COMPARISON/CORRELATION: No comparison. Correlation: Right upper quadrant ultrasound 05/01/2025. Outside CT abdomen and pelvis 05/01/2025. FINDINGS: Blood Pool Activity: Clears. Hepatocyte Function: Physiological. Photopenic region within the right hemiliver correlates with the known liver mass on CT scan. Gallbladder: Prompt before visualization of small intestine. Pericholecystic Rim Sign: Absent. Biliary Excretion into Small Intestine: Prompt visualization. Duodenogastric Bile Reflux: Present. Procedure Note Evie Black MD - 09/05/2025 CLINICAL INDICATION: Concern for acute cholecystitis. On 05/04/2025, total bilirubin level was2.1 mg/dL. TECHNIQUE: Preparation: Fasting for 6-24 hours. Premedication (due to prolonged fasting): At least 30 minutes beforeradiopharmaceutical, 1.2 ug of CCK octapeptide (sincalide, Kinevac)infused intravenously over 10-15 minutes. Immediately following intravenous administration of 4.01 mCi of Tc-99m JOSEPH(Choletec), dynamic images of the abdomen were acquired in the anteriorprojection for 40 minutes. Static anterior, posterior and/or lateralimages of the abdomen were acquired at 1 hour. COMPARISON/CORRELATION: No comparison. Correlation: Right upper quadrant ultrasound 05/01/2025.Outside CT abdomen and pelvis 05/01/2025. FINDINGS: Blood Pool Activity: Clears. Hepatocyte Function: Physiological. Photopenic region within the righthemiliver correlates with the known liver mass on CT scan. Gallbladder: Prompt before visualization of small intestine. Pericholecystic Rim Sign: Absent. Biliary Excretion into Small Intestine: Prompt visualization. Duodenogastric Bile Reflux: Present. IMPRESSION: Patent cystic duct. No acute cholecystitis. Patent common bile duct. CRITICAL RESULT: No. COMMUNICATION: Per this written report. By electronically signing this report, I, the attending physician, attestthat I have personally reviewed the images/data for the aboveexamination(s) and agree with the final edited report. Drafted by Joseline Soliman MD on 05/04/2025 2:16 PM Final report signed by Jewels Black MD on 05/04/2025 3:10 PM Carroll Childers MD IMG NM PROCEDURES Final Result * (ABNORMAL) Comprehensive metabolic panel (05/04/2025 4:33 AM EDT) Glucose, Plasma 92 74 - 99 mg/dL 05/04/2025 5:27 AM EDT [facility] BUN, Plasma 11 8 - 23 mg/dL 05/04/2025 5:27 AM EDT [facility] Creatinine, Plasma 0.81 0.70 - 1.20 mg/dL 05/04/2025 5:27 AM EDT [facility] BUN/Creatinine Ratio 14 05/04/2025 5:27 AM EDT [facility] Sodium, Plasma 138 136 - 145 mmol/L 05/04/2025 5:27 AM EDT [facility] Potassium, Plasma 3.3(L) 3.6 - 4.9 mmol/L 05/04/2025 5:27 AM EDT [facility] Chloride, Plasma 106 97 - 107 mmol/L 05/04/2025 5:27 AM EDT [facility] CO2, Plasma 20(L) 22 - 29 mmol/L 05/04/2025 5:27 AM EDT [facility] Anion Gap 12 6 - 16 mmol/L 05/04/2025 5:27 AM EDT [facility] Total Calcium, Plasma 8.5(L) 8.9 - 10.2 mg/dL 05/04/2025 5:27 AM EDT [facility] Total Protein 6.4 6.3 - 7.9 g/dL 05/04/2025 5:27 AM EDT [facility] Albumin, Plasma 2.6(L) 3.5 - 5.2 g/dL 05/04/2025 5:27 AM EDT [facility] AST, Plasma 140(H) 10 - 50 U/L 05/04/2025 5:27 AM EDT [facility] ALT, Plasma 21 10 - 50 U/L 05/04/2025 5:27 AM EDT [facility] Alkaline Phosphatase, Plasma 186(H) 40 - 115 U/L 05/04/2025 5:27 AM EDT [facility] Total Bilirubin, Plasma 2.1(H) 0.2 - 1.1 mg/dL 05/04/2025 5:27 AM EDT [facility] eGFRcr 96.6 mL/min/1.7 3m*2 05/04/2025 5:27 AM EDT [facility] Comment:Reported eGFRcr in m L/min/1.73m2 is based the CKD-EPI 2020 equation that does not use a race coefficient. Blood Venous blood specimen / Unknown Venipuncture / Unknown 05/04/2025 4:33 AM EDT 05/04/2025 4:44 AM EDT us Ang Will MD LAB BLOOD ORDERABLES Courtney vega Result [facility] [address] [place] [address] * (ABNORMAL) CBC W/O Differential (05/04/2025 4:33 AM EDT) WBC Count 4.71 3.70 - 10.30 10*3/uL LAB HEMATOLOGY METHOD 05/04/2025 5:18 AM EDT [facility] RBC Count 4.16(L) 4.60 - 6.10 10*6/uL LAB HEMATOLOGY METHOD 05/04/2025 5:18 AM EDT [facility] HGB 13.1(L) 13.7 - 17.5 g/dL LAB HEMATOLOGY METHOD 05/04/2025 5:18 AM EDT [facility] HCT 38.4(L) 40.0 - 51.0 % LAB HEMATOLOGY METHOD 05/04/2025 5:18 AM EDT [facility] Platelet Count 117(L) 155 - 369 10*3/uL LAB HEMATOLOGY METHOD 05/04/2025 5:18 AM EDT [facility] MCV 92 79 - 98 fL LAB HEMATOLOGY METHOD 05/04/2025 5:18 AM EDT [facility] MCH 31.5 26.0 - 32.0 pg LAB HEMATOLOGY METHOD 05/04/2025 5:18 AM EDT [facility] MCHC 34.1 30.7 - 35.5 g/dL LAB HEMATOLOGY METHOD 05/04/2025 5:18 AM EDT [facility] RDW 15.5(H) 11.5 - 14.5 % LAB HEMATOLOGY METHOD 05/04/2025 5:18 AM EDT [facility] MPV 11.5 8.8 - 12.5 fL LAB HEMATOLOGY METHOD 05/04/2025 5:18 AM EDT [facility] nRBC 0.0 <=0.0 per 100 WBCs LAB HEMATOLOGY METHOD 05/04/2025 5:18 AM EDT [facility] Blood Venous blood specimen / Unknown Venipuncture / Unknown 05/04/2025 4:33 AM EDT 05/04/2025 4:45 AM EDT Ang Will MD LAB BLOOD ORDERABLES Courtney l Result Performing Organization Address City/[facility]/ZIP Co de Phone Number [facility] [address] [place] [address] * (ABNORMAL) Creatine Kinase, Total, Plasma (05/04/2025 4:33 AM EDT) Creatine Kinase, Plasma 33(L) 49 - 320 U/L 05/04/2025 5:27 AM EDT [facility] Blood Venous blood specimen / Unknown Venipuncture / Unknown 05/04/2025 4:33 AM EDT 05/04/2025 4:44 AM EDT Ang Will MD LAB BLOOD ORDERABLES Courtney l Result Performing Organization Address [facility] [place] [address] * Phosphatidylethanol (PEth), Whole Blood, Quantitative (05/04/2025 4:33 AM EDT) Pathologist [facility] PEth 16:0/18:2 (PLPEth) <10 ng/mL 05/06/2025 12:20 PM EDT [facility] ([facility]) PEth 16:0/18:1 (POPEth) <10 ng/mL 05/06/2025 12:20 PM EDT [facility] ([facility]) EER Peth See Note 05/06/2025 12:20 PM EDT [facility] ([facility]) PEth Interpretation See Comment 05/06/2025 12:20 PM EDT [facility] ([facility]) Blood Venous blood specimen / Unknown Venipuncture / Unknown 05/04/2025 4:33 AM EDT 05/04/2025 4:42 AM EDT Narrative [facility] ([facility]) - 05/06/2025 12:20 PM EDT PEth 16:0/18:1 (POPEth) Less than 10 ng/mL............Not detected Less than 20 ng/mL............Abstinence or light alcohol consumption 20 - 200 ng/mL................Moderate alcohol consumption Greater than 200 ng/mL........Heavy alcohol consumption or chronic alcohol use (Reference: Hannah Correa and Trice Azevedo 2018 J. Forensic Sci) Reference ranges are not well established. Authorized individuals can access the [facility] Enhanced Report with an [facility] Connect account using the following link. Your local lab can assist you in obtaining the patient report if you don't have a Connect account. [email or web address] Phosphatidylethanol (PEth) is a group of phospholipids formed in the presence of ethanol, phospholipase D and phosphatidylcholine. PEth is known to be a direct alcohol biomarker. The predominant PEth homologues are PEth 16:0/18:1 (POPEth) and PEth 16:0/18:2 (PLPEth), which account for 37-46% and 26-28% of the total PEth homologues, respectively. PEth is incorporated into the phospholipid membrane of red blood cells and has a general half-life of 4-10 days and a window of detection of 2-4 weeks. However, the window of detection is longer in individuals who chronically or excessively consume alcohol. The limit of quantification is 10 ng/mL. Serial monitoring of PEth may be helpful in monitoring alcohol abstinence over time. PEth results should be interpreted in the context of the patient's clinical and behavioral history. Patients with advanced liver disease may have falsely elevated PEth concentrations (Martha FRITZ et al 2018, Alcoholism Clinical & Experimental Research). This test was developed and its performance characteristics determined by [facility]. It has not been cleared or approved by the U.S. Food and Drug Administration. This test was performed in a CLIA-certified laboratory and is intended for clinical purposes. Performed By: [facility] [address] [place] [id number] [employer] Operator: David Marx MD, PhD CLIA Number: [id number] us Ang Will MD LAB REF LAB BLOOD AND FLU ID ORD Final Result DALY PORTILLO) [place] [address] * (ABNORMAL) Comprehensive metabolic panel (05/03/2025 4:00 AM EDT) Glucose, Plasma 96 74 - 99 mg/dL 05/03/2025 4:51 AM EDT [facility] BUN, Plasma 13 8 - 23 mg/dL 05/03/2025 4:51 AM EDT [facility] Creatinine, Plasma 0.86 0.70 - 1.20 mg/dL 05/03/2025 4:51 AM EDT [facility] BUN/Creatinine Ratio 15 05/03/2025 4:51 AM EDT [facility] Sodium, Plasma 137 136 - 145 mmol/L 05/03/2025 4:51 AM EDT [facility] Potassium, Plasma 3.6 3.6 - 4.9 mmol/L 05/03/2025 4:51 AM EDT [facility] Chloride, Plasma 103 97 - 107 mmol/L 05/03/2025 4:51 AM EDT [facility] CO2, Plasma 22 22 - 29 mmol/L 05/03/2025 4:51 AM EDT [facility] Anion Gap 12 6 - 16 mmol/L 05/03/2025 4:51 AM EDT [facility] Total Calcium, Plasma 9.0 8.9 - 10.2 mg/dL 05/03/2025 4:51 AM EDT [facility] Total Protein 7.1 6.3 - 7.9 g/dL 05/03/2025 4:51 AM EDT [facility] Albumin, Plasma 3.0(L) 3.5 - 5.2 g/dL 05/03/2025 4:51 AM EDT [facility] AST, Plasma 205(H) 10 - 50 U/L 05/03/2025 4:51 AM EDT [facility] Comment:Hemolyzed, result ma y be falsely increased. ALT, Plasma 23 10 - 50 U/L 05/03/2025 4:51 AM EDT [facility] Alkaline Phosphatase, Plasma 220(H) 40 - 115 U/L 05/03/2025 4:51 AM EDT [facility] Total Bilirubin, Plasma 1.7(H) 0.2 - 1.1 mg/dL 05/03/2025 4:51 AM EDT [facility] eGFRcr 94.9 mL/min/1.7 3m*2 05/03/2025 4:51 AM EDT [facility] Comment:Reported eGFRcr in m L/min/1.73m2 is based the CKD-EPI 2020 equation that does not use a race coefficient. Blood Venous blood specimen / Unknown Venipuncture / Unknown 05/03/2025 4:00 AM EDT 05/03/2025 4:21 AM EDT Ang Will MD LAB BLOOD ORDERABLES Courtney ferrari Result [facility] [address] [place] [address] * (ABNORMAL) CBC W/O Differential (05/03/2025 4:00 AM EDT) WBC Count 5.46 3.70 - 10.30 10*3/uL LAB HEMATOLOGY METHOD 05/03/2025 4:34 AM EDT [facility] RBC Count 4.39(L) 4.60 - 6.10 10*6/uL LAB HEMATOLOGY METHOD 05/03/2025 4:34 AM EDT [facility] HGB 14.0 13.7 - 17.5 g/dL LAB HEMATOLOGY METHOD 05/03/2025 4:34 AM EDT [facility] HCT 41.1 40.0 - 51.0 % LAB HEMATOLOGY METHOD 05/03/2025 4:34 AM EDT [facility] Platelet Count 122(L) 155 - 369 10*3/uL LAB HEMATOLOGY METHOD 05/03/2025 4:34 AM EDT [facility] MCV 94 79 - 98 fL LAB HEMATOLOGY METHOD 05/03/2025 4:34 AM EDT [facility] MCH 31.9 26.0 - 32.0 pg LAB HEMATOLOGY METHOD 05/03/2025 4:34 AM EDT [facility] MCHC 34.1 30.7 - 35.5 g/dL LAB HEMATOLOGY METHOD 05/03/2025 4:34 AM EDT [facility] RDW 15.3(H) 11.5 - 14.5 % LAB HEMATOLOGY METHOD 05/03/2025 4:34 AM EDT [facility] MPV 12.5 8.8 - 12.5 fL LAB HEMATOLOGY METHOD 05/03/2025 4:34 AM EDT [facility] nRBC 0.0 <=0.0 per 100 WBCs LAB HEMATOLOGY METHOD 05/03/2025 4:34 AM EDT [facility] Blood Venous blood specimen / Unknown Venipuncture / Unknown 05/03/2025 4:00 AM EDT 05/03/2025 4:24 AM EDT us Ang Will MD LAB BLOOD ORDERABLES Courtney l Result [facility] [address] [place] [address] * (ABNORMAL) Bilirubin, direct (05/02/2025 1:42 PM EDT) Conjugated Bilirubin, Plasma 0.7(H) <=0.3 mg/dL 05/02/2025 2:51 PM EDT [facility] Blood Venous blood specimen / Unknown Venipuncture / Unknown 05/02/2025 1:42 PM EDT 05/02/2025 2:10 PM EDT us Ang Will MD LAB BLOOD ORDERABLES Courtney l Result [facility] [address] [place] [address] * (ABNORMAL) Bilirubin, direct (05/02/2025 2:07 AM EDT) Conjugated Bilirubin, Plasma 1.1(H) <=0.3 mg/dL 05/02/2025 3:20 PM EDT [facility] Blood Venous blood specimen / Unknown Venipuncture / Unknown 05/02/2025 2:07 AM EDT 05/02/2025 2:20 AM EDT Ang Will MD LAB BLOOD ORDERABLES Courtney l Result Performing Organization Address [facility]/ZIP Co de Phone Number [facility] [address] [place] [address] * (ABNORMAL) Lactate, venous (05/02/2025 2:07 AM EDT) Lactate, Venous, Whole Blood 3.0(H) 0.5 - 2.2 mmol/L LAB HEMATOLOGY METHOD 05/02/2025 2:21 AM EDT [facility] Blood Venous blood specimen / Unknown Venipuncture / Unknown 05/02/2025 2:07 AM EDT 05/02/2025 2:19 AM EDT us Lexi Crane APRN LAB BLOOD ORDERABLES Final Re sult Performing Organization Address [facility]/ZIP Co de Phone Number [facility] [address] [place] [address] * (ABNORMAL) Prothrombin Time/INR (05/02/2025 2:07 AM EDT) Prothrombin Time 14.5(H) 12.0 - 14.3 sec LAB COAGULATION METHOD 05/02/2025 2:44 AM EDT [facility] INR 1.1 0.9 - 1.1 LAB COAGULATION METHOD 05/02/2025 2:44 AM EDT [facility] Blood Venous blood specimen / Unknown Venipuncture / Unknown 05/02/2025 2:07 AM EDT 05/02/2025 2:20 AM EDT Narrative [facility] - 05/02/2025 2:44 AM EDT OPTIMAL INR RANGES FOR PATIENT ON ORAL ANTICOAGULANT THERAPY Prevention of venous thromboembolism INR 2.0 to 3.0 In patients with heart disease: Atrial fibrillation INR 2.0 to 3.0 Valvular heart disease INR 2.0 to 3.0 Tissue heart valves INR 2.0 to 3.0 Mechanical prosthetic valves INR 2.5 to 3.5 Prevention of recurrent AL INR 2.5 to 3.5 us Lexi Crane CARDIOLOGY CONSULTANT LAB BLOOD ORDERABLES Final Re sult [facility] [address] [place] [address] * (ABNORMAL) Comprehensive metabolic panel (05/02/2025 2:07 AM EDT) Glucose, Plasma 106(H) 74 - 99 mg/dL 05/02/2025 2:51 AM EDT [facility] BUN, Plasma 16 8 - 23 mg/dL 05/02/2025 2:51 AM EDT [facility] Creatinine, Plasma 0.84 0.70 - 1.20 mg/dL 05/02/2025 2:51 AM EDT [facility] BUN/Creatinine Ratio 19 05/02/2025 2:51 AM EDT [facility] Sodium, Plasma 136 136 - 145 mmol/L 05/02/2025 2:51 AM EDT [facility] Potassium, Plasma 3.8 3.6 - 4.9 mmol/L 05/02/2025 2:51 AM EDT [facility] Chloride, Plasma 101 97 - 107 mmol/L 05/02/2025 2:51 AM EDT [facility] CO2, Plasma 25 22 - 29 mmol/L 05/02/2025 2:51 AM EDT [facility] Anion Gap 10 6 - 16 mmol/L 05/02/2025 2:51 AM EDT [facility] Total Calcium, Plasma 9.1 8.9 - 10.2 mg/dL 05/02/2025 2:51 AM EDT [facility] Total Protein 6.5 6.3 - 7.9 g/dL 05/02/2025 2:51 AM EDT [facility] Albumin, Plasma 2.8(L) 3.5 - 5.2 g/dL 05/02/2025 2:51 AM EDT [facility] AST, Plasma 241(H) 10 - 50 U/L 05/02/2025 2:51 AM EDT [facility] ALT, Plasma 23 10 - 50 U/L 05/02/2025 2:51 AM EDT [facility] Alkaline Phosphatase, Plasma 200(H) 40 - 115 U/L 05/02/2025 2:51 AM EDT [facility] Total Bilirubin, Plasma 2.6(H) 0.2 - 1.1 mg/dL 05/02/2025 2:51 AM EDT [facility] eGFRcr 95.6 mL/min/1.7 3m*2 05/02/2025 2:51 AM EDT [facility] Comment:Reported eGFRcr in m L/min/1.73m2 is based the CKD-EPI 2020 equation that does not use a race coefficient. Blood Venous blood specimen / Unknown Venipuncture / Unknown 05/02/2025 2:07 AM EDT 05/02/2025 2:20 AM EDT us Lexi Crane APRN LAB BLOOD ORDERABLES Final Re sult [facility] [address] [place] [address] * (ABNORMAL) CBC and differential (05/02/2025 2:07 AM EDT) WBC Count 6.14 3.70 - 10.30 10*3/uL LAB HEMATOLOGY METHOD 05/02/2025 2:31 AM EDT [facility] RBC Count 4.15(L) 4.60 - 6.10 10*6/uL LAB HEMATOLOGY METHOD 05/02/2025 2:31 AM EDT [facility] HGB 13.3(L) 13.7 - 17.5 g/dL LAB HEMATOLOGY METHOD 05/02/2025 2:31 AM EDT [facility] HCT 39.3(L) 40.0 - 51.0 % LAB HEMATOLOGY METHOD 05/02/2025 2:31 AM EDT [facility] Platelet Count 126(L) 155 - 369 10*3/uL LAB HEMATOLOGY METHOD 05/02/2025 2:31 AM EDT [facility] MCV 95 79 - 98 fL LAB HEMATOLOGY METHOD 05/02/2025 2:31 AM EDT [facility] MCH 32.0 26.0 - 32.0 pg LAB HEMATOLOGY METHOD 05/02/2025 2:31 AM EDT [facility] MCHC 33.8 30.7 - 35.5 g/dL LAB HEMATOLOGY METHOD 05/02/2025 2:31 AM EDT [facility] RDW 15.1(H) 11.5 - 14.5 % LAB HEMATOLOGY METHOD 05/02/2025 2:31 AM EDT [facility] MPV 11.9 8.8 - 12.5 fL LAB HEMATOLOGY METHOD 05/02/2025 2:31 AM EDT [facility] nRBC 0.0 <=0.0 per 100 WBCs LAB HEMATOLOGY METHOD 05/02/2025 2:31 AM EDT [facility] Differential Type Automated LAB HEMATOLOGY METHOD 05/02/2025 2:31 AM EDT [facility] Neutrophils % 65 % LAB HEMATOLOGY METHOD 05/02/2025 2:31 AM EDT [facility] Lymphocytes % 20 % LAB HEMATOLOGY METHOD 05/02/2025 2:31 AM EDT [facility] Monocytes % 13 % LAB HEMATOLOGY METHOD 05/02/2025 2:31 AM EDT [facility] Eosinophils % 1 % LAB HEMATOLOGY METHOD 05/02/2025 2:31 AM EDT [facility] Basophils % 0 % LAB HEMATOLOGY METHOD 05/02/2025 2:31 AM EDT [facility] Immature Granulocytes % 1 % LAB HEMATOLOGY METHOD 05/02/2025 2:31 AM EDT [facility] Neutrophils Absolute 4.00 1.60 - 6.10 10*3/uL LAB HEMATOLOGY METHOD 05/02/2025 2:31 AM EDT [facility] Lymphocytes Absolute 1.22 1.20 - 3.90 10*3/uL LAB HEMATOLOGY METHOD 05/02/2025 2:31 AM EDT [facility] Monocytes Absolute 0.79 0.30 - 0.90 10*3/uL LAB HEMATOLOGY METHOD 05/02/2025 2:31 AM EDT [facility] Eosinophils Absolute 0.07 0.00 - 0.50 10*3/uL LAB HEMATOLOGY METHOD 05/02/2025 2:31 AM EDT [facility] Basophils Absolute 0.02 0.00 - 0.10 10*3/uL LAB HEMATOLOGY METHOD 05/02/2025 2:31 AM EDT [facility] Immature Granulocytes Absolute 0.04 0.00 - 0.06 10*3/uL LAB HEMATOLOGY METHOD 05/02/2025 2:31 AM EDT [facility] Blood Venous blood specimen / Unknown Venipuncture / Unknown 05/02/2025 2:07 AM EDT 05/02/2025 2:20 AM EDT Narrative [facility] - 05/02/2025 2:31 AM EDT Therapeutic decision making should be based on absolute values, rather than percentages. us Lexi Crane APRN LAB BLOOD ORDERABLES Final Re sult [facility] [address] [place] [address] * US Abdomen RUQ (05/01/2025 7:43 PM EDT) Anatomical Region Laterality Modality Gallbladder Ultrasound Impressions 05/01/2025 8:43 PM EDT Cholelithiasis. Significant gallbladder wall thickening could be secondary to chronic liver disease or cholecystitis. There is trace pericystic free fluid. CRITICAL RESULT: No. COMMUNICATION: Per this written report. Drafted by Vanessa Reid MD on 05/01/2025 8:40 PM Final report signed by Vanessa Reid MD on 05/01/2025 8:43 PM Narrative 05/01/2025 8:43 PM EDT CLINICAL INDICATION: concern for GB wall thickening on CT TECHNIQUE: Multiplanar grayscale ultrasound of the right upper quadrant of the abdomen. COMPARISON: CT January 2025 FINDINGS: Visualized Pancreas: Not visualized. Liver: Echogenic and heterogeneous echotexture of liver. Gallbladder: Gallstone lodged at the neck of gallbladder. Gallbladder wall measures 8.9 mm in thickness. There is pericystic free fluid. Sonographic negative Rosario's sign. Bile Ducts: CBD measures 5 mm. No intra-hepatic biliary ductal dilatation. No extra-hepatic biliary ductal dilatation. Right Kidney: The right kidney measures 10.4 cm in length. Normal cortical echogenicity without focal mass, stone, or hydronephrosis. Fluid Survey: No ascites. Patent portal vein with antegrade flow. Procedure Note Dommeti, Sri Abiodun, MD - 05/01/2025 CLINICAL INDICATION: concern for GB wall thickening on CT TECHNIQUE: Multiplanar grayscale ultrasound of the right upper quadrant of theabdomen. COMPARISON: CT January 2025 FINDINGS: Visualized Pancreas: Not visualized. Liver: Echogenic and heterogeneous echotexture of liver. Gallbladder: Gallstone lodged at the neck of gallbladder. Gallbladder wallmeasures 8.9 mm in thickness. There is pericystic free fluid. Sonographicnegative Rosario's sign. Bile Ducts: CBD measures 5 mm. No intra-hepatic biliary ductal dilatation.No extra-hepatic biliary ductal dilatation. Right Kidney: The right kidney measures 10.4 cm in length. Normal corticalechogenicity without focal mass, stone, or hydronephrosis. Fluid Survey: No ascites. Patent portal vein with antegrade flow. IMPRESSION: Cholelithiasis. Significant gallbladder wall thickening could be secondaryto chronic liver disease or cholecystitis. There is trace pericystic freefluid. CRITICAL RESULT: No. COMMUNICATION: Per this written report. Drafted by Vanessa Reid MD on 05/01/2025 8:40 PM Final report signed by Vanessa Reid MD on 05/01/2025 8:43 PM Willy Saleh MD [facility] [place] PROCEDURES Final Result * Type and screen (05/01/2025 5:54 PM EDT) ABO/Rh A Positive 05/01/2025 5:39 PM EDT BLOOD BANK Antibody Screen Negative 05/01/2025 5:39 PM EDT BLOOD BANK Specimen Expiration 05/04/2025 23:59 05/01/2025 5:39 PM EDT BLOOD BANK Blood Venous blood specimen / Unknown Venipuncture / Unknown 05/01/2025 5:54 PM EDT 05/01/2025 5:58 PM EDT Willy Saleh MD LAB BLOOD BANK TEST ORDERABLES Final Result BLOOD BANK [address] [place] [address], [place] * (ABNORMAL) Lactic acid, venous (05/01/2025 5:54 PM EDT) Lactate, Venous, Whole Blood 2.5(H) 0.5 - 2.2 mmol/L LAB HEMATOLOGY METHOD 05/01/2025 6:12 PM EDT [facility] Blood Venous blood specimen / Unknown Venipuncture / Unknown 05/01/2025 5:54 PM EDT 05/01/2025 6:08 PM EDT Willy Saleh MD LAB BLOOD ORDERABLES Final Resu lt [facility] [address] [place] [address] * (ABNORMAL) Lipase (05/01/2025 5:54 PM EDT) Lipase, Plasma 11(L) 19 - 63 U/L 05/01/2025 6:22 PM EDT [facility] Blood Venous blood specimen / Unknown Venipuncture / Unknown 05/01/2025 5:54 PM EDT 05/01/2025 5:58 PM EDT Willy Saleh MD LAB BLOOD ORDERABLES Final Resu lt [facility] [address] [place] [address] * Magnesium (05/01/2025 5:54 PM EDT) Magnesium, Plasma 1.9 1.9 - 2.4 mg/dL 05/01/2025 6:22 PM EDT [facility] Blood Venous blood specimen / Unknown Venipuncture / Unknown 05/01/2025 5:54 PM EDT 05/01/2025 5:58 PM EDT Willy Saleh MD LAB BLOOD ORDERABLES Final Resu lt [facility] [address] [place] [address] * (ABNORMAL) CMP (05/01/2025 5:54 PM EDT) Glucose, Plasma 93 74 - 99 mg/dL 05/01/2025 6:22 PM EDT [facility] BUN, Plasma 16 8 - 23 mg/dL 05/01/2025 6:22 PM EDT [facility] Creatinine, Plasma 0.82 0.70 - 1.20 mg/dL 05/01/2025 6:22 PM EDT [facility] BUN/Creatinine Ratio 20 05/01/2025 6:22 PM EDT [facility] Sodium, Plasma 137 136 - 145 mmol/L 05/01/2025 6:22 PM EDT [facility] Potassium, Plasma 4.0 3.6 - 4.9 mmol/L 05/01/2025 6:22 PM EDT [facility] Chloride, Plasma 101 97 - 107 mmol/L 05/01/2025 6:22 PM EDT [facility] CO2, Plasma 22 22 - 29 mmol/L 05/01/2025 6:22 PM EDT [facility] Anion Gap 14 6 - 16 mmol/L 05/01/2025 6:22 PM EDT [facility] Total Calcium, Plasma 8.7(L) 8.9 - 10.2 mg/dL 05/01/2025 6:22 PM EDT [facility] Total Protein 6.6 6.3 - 7.9 g/dL 05/01/2025 6:22 PM EDT [facility] Albumin, Plasma 2.7(L) 3.5 - 5.2 g/dL 05/01/2025 6:22 PM EDT [facility] AST, Plasma 248(H) 10 - 50 U/L 05/01/2025 6:22 PM EDT [facility] ALT, Plasma 22 10 - 50 U/L 05/01/2025 6:22 PM EDT [facility] Alkaline Phosphatase, Plasma 208(H) 40 - 115 U/L 05/01/2025 6:22 PM EDT [facility] Total Bilirubin, Plasma 2.2(H) 0.2 - 1.1 mg/dL 05/01/2025 6:22 PM EDT [facility] eGFRcr 96.3 mL/min/1.7 3m*2 05/01/2025 6:22 PM EDT [facility] Comment:Reported eGFRcr in m L/min/1.73m2 is based the CKD-EPI 2020 equation that does not use a race coefficient. Blood Venous blood specimen / Unknown Venipuncture / Unknown 05/01/2025 5:54 PM EDT 05/01/2025 5:58 PM EDT Willy Saleh MD LAB BLOOD ORDERABLES Final Resu lt Performing Organization Address [facility] Co de Phone Number [facility] [address] [place] [address] * (ABNORMAL) PT-INR (05/01/2025 5:54 PM EDT) Prothrombin Time 14.4(H) 12.0 - 14.3 sec 05/01/2025 6:13 PM EDT [facility] INR 1.1 0.9 - 1.1 05/01/2025 6:13 PM EDT [facility] Blood Venous blood specimen / Unknown Venipuncture / Unknown 05/01/2025 5:54 PM EDT 05/01/2025 5:58 PM EDT Narrative [facility] - 05/01/2025 6:13 PM EDT OPTIMAL INR RANGES FOR PATIENT ON ORAL ANTICOAGULANT THERAPY Prevention of venous thromboembolism INR 2.0 to 3.0 In patients with heart disease: Atrial fibrillation INR 2.0 to 3.0 Valvular heart disease INR 2.0 to 3.0 Tissue heart valves INR 2.0 to 3.0 Mechanical prosthetic valves INR 2.5 to 3.5 Prevention of recurrent AL INR 2.5 to 3.5 Willy Saleh MD LAB BLOOD ORDERABLES Final Resu lt Performing Organization Address City/[facility]/ZIP Co de Phone Number [facility] [address] [place] [address] * (ABNORMAL) CBC w/diff (05/01/2025 5:54 PM EDT) WBC Count 6.23 3.70 - 10.30 10*3/uL LAB HEMATOLOGY METHOD 05/01/2025 6:05 PM EDT [facility] RBC Count 4.08(L) 4.60 - 6.10 10*6/uL LAB HEMATOLOGY METHOD 05/01/2025 6:05 PM EDT [facility] HGB 13.2(L) 13.7 - 17.5 g/dL LAB HEMATOLOGY METHOD 05/01/2025 6:05 PM EDT [facility] HCT 37.8(L) 40.0 - 51.0 % LAB HEMATOLOGY METHOD 05/01/2025 6:05 PM EDT [facility] Platelet Count 118(L) 155 - 369 10*3/uL LAB HEMATOLOGY METHOD 05/01/2025 6:05 PM EDT [facility] MCV 93 79 - 98 fL LAB HEMATOLOGY METHOD 05/01/2025 6:05 PM EDT [facility] MCH 32.4(H) 26.0 - 32.0 pg LAB HEMATOLOGY METHOD 05/01/2025 6:05 PM EDT [facility] MCHC 34.9 30.7 - 35.5 g/dL LAB HEMATOLOGY METHOD 05/01/2025 6:05 PM EDT [facility] RDW 15.0(H) 11.5 - 14.5 % LAB HEMATOLOGY METHOD 05/01/2025 6:05 PM EDT [facility] MPV 11.1 8.8 - 12.5 fL LAB HEMATOLOGY METHOD 05/01/2025 6:05 PM EDT [facility] nRBC 0.0 <=0.0 per 100 WBCs LAB HEMATOLOGY METHOD 05/01/2025 6:05 PM EDT [facility] Differential Type Automated LAB HEMATOLOGY METHOD 05/01/2025 6:05 PM EDT [facility] Neutrophils % 59 % LAB HEMATOLOGY METHOD 05/01/2025 6:05 PM EDT [facility] Lymphocytes % 21 % LAB HEMATOLOGY METHOD 05/01/2025 6:05 PM EDT [facility] Monocytes % 16 % LAB HEMATOLOGY METHOD 05/01/2025 6:05 PM EDT [facility] Eosinophils % 2 % LAB HEMATOLOGY METHOD 05/01/2025 6:05 PM EDT [facility] Basophils % 1 % LAB HEMATOLOGY METHOD 05/01/2025 6:05 PM EDT [facility] Immature Granulocytes % 1 % LAB HEMATOLOGY METHOD 05/01/2025 6:05 PM EDT [facility] Neutrophils Absolute 3.70 1.60 - 6.10 10*3/uL LAB HEMATOLOGY METHOD 05/01/2025 6:05 PM EDT [facility] Lymphocytes Absolute 1.33 1.20 - 3.90 10*3/uL LAB HEMATOLOGY METHOD 05/01/2025 6:05 PM EDT [facility] Monocytes Absolute 0.98(H) 0.30 - 0.90 10*3/uL LAB HEMATOLOGY METHOD 05/01/2025 6:05 PM EDT [facility] Eosinophils Absolute 0.13 0.00 - 0.50 10*3/uL LAB HEMATOLOGY METHOD 05/01/2025 6:05 PM EDT [facility] Basophils Absolute 0.04 0.00 - 0.10 10*3/uL LAB HEMATOLOGY METHOD 05/01/2025 6:05 PM EDT [facility] Immature Granulocytes Absolute 0.05 0.00 - 0.06 10*3/uL LAB HEMATOLOGY METHOD 05/01/2025 6:05 PM EDT [facility] Blood Venous blood specimen / Unknown Venipuncture / Unknown 05/01/2025 5:54 PM EDT 05/01/2025 5:58 PM EDT Narrative [facility] - 05/01/2025 6:05 PM EDT Therapeutic decision making should be based on absolute values, rather than percentages. us Willy Saleh MD LAB BLOOD ORDERABLES Final Resu lt [facility] [address] [place] [address] * EKG now - STAT (adult) (05/01/2025 5:43 PM EDT) EKG DIAGNOSIS CLASS Abnormal MUSE ECG Ventricular Rate 70 BPM MUSE ECG Atrial Rate 70 BPM MUSE ECG WY Interval 138 ms MUSE ECG QRSD Interval 86 ms MUSE ECG QT Interval 414 ms MUSE ECG QTC Interval 447 ms MUSE ECG P [place] 50 degrees MUSE ECG R [place] -53 degrees MUSE ECG T Wave [place] 43 degrees MUSE ECG Diagnosis Normal sinus rhythm with sinus arrhythmia MUSE ECG Diagnosis Left axis deviation MUSE ECG Diagnosis Anterior infarct , age undetermined MUSE ECG Diagnosis T wave abnormality, consider lateral ischemia MUSE ECG Diagnosis MUSE ECG Diagnosis MUSE ECG Diagnosis Confirmed by Jordyn Pompa ([id number]) on 05/02/2025 3:24:55 PM MUSE ECG 05/01/2025 5:43 PM EDT 05/02/2025 3:24 PM EDT us Willy Saleh MD ECG ORDERABLES Final Result MUSE ECG documented in this encounter Visit Diagnoses Diagnosis Abdominal pain- Primary Abdominal pain, unspecified site Hepatocellular carcinoma Malignant neoplasm of liver, primary RUQ abdominal pain Abdominal pain, right upper quadrant Generalized abdominal pain Abdominal pain, generalized documented in this encounter Admitting Diagnoses Diagnosis Abdominal pain Abdominal pain, unspecified site documented in this encounter Administered Medications Inactive Administered Medications - up to 3 most recent administrations Medication Order MAR Action Action Date Dose Rate Site aspirin chewable tablet 81 mg 81 mg, Oral, Daily, First dose on Wed05/02/25 at 0900, Until Discontinued Given 05/02/2025 9:23 AM EDT 81 mg clopidogrel (Plavix) tablet 75 mg 75 mg, Oral, Daily, First dose on Wed05/02/25 at 0900, Until Discontinued, Routine Given 05/02/2025 9:22 AM EDT 75 mg cyclobenzaprine (Flexeril) tablet 5 mg 5 mg, Oral, 2 times daily PRN, Starting on Wed05/02/25 at 0232, Until 05/05/25 at 1719, Routine, muscle spasms, back pain Given 05/05/2025 9:20 AM EDT 5 mg Given 05/02/2025 7:36 AM EDT 5 mg empagliflozin (Jardiance) tablet 10 mg 10 mg, Oral, Daily, First dose on Wed05/02/25 at 0900, Until Discontinued, RoutineIndications:Heart Failure Given 05/02/2025 9:23 AM EDT 10 mg escitalopram (Lexapro) tablet 20 mg 20 mg, Oral, Daily, First dose on Wed05/02/25 at 0900, Until Discontinued, Routine Given 05/05/2025 9:20 AM EDT 20 mg Given 05/04/2025 8:27 AM EDT 20 mg Given 05/03/2025 8:02 AM EDT 20 mg furosemide (Lasix) tablet 20 mg 20 mg, Oral, Daily, First dose on Wed05/02/25 at 0900, Until Discontinued, Routine Given 05/05/2025 9:20 AM EDT 20 mg Given 05/04/2025 8:27 AM EDT 20 mg Given 05/03/2025 8:02 AM EDT 20 mg HYDROmorphone (Dilaudid) injection 0.5 mg 0.5 mg, Intravenous, Once, 1 dose, On Wed05/01/25 at 2000, STAT Given 05/01/2025 8:37 PM EDT 0.5 mg HYDROmorphone (Dilaudid) injection 0.5 mg 0.5 mg, Intravenous, Every 4 hours PRN, Starting on Wed05/01/25 at 2302, Until 05/05/25 at 1719, Routine, severe pain Given 05/05/2025 1:36 PM EDT 0.5 mg Given 05/04/2025 10:59 PM EDT 0.5 mg Given 05/04/2025 2:05 PM EDT 0.5 mg HYDROmorphone (Dilaudid) tablet 3 mg 3 mg, Oral, Every 4 hours PRN, Starting on Wed05/02/25 at 0233, Until 05/05/25 at 1719, Routine, severe pain Given 05/05/2025 8:14 AM EDT 3 mg Given 05/05/2025 12:53 AM EDT 3 mg Given 05/04/2025 8:32 PM EDT 3 mg lactated Ringer's infusion 1,000 mL 1,000 mL, Intravenous, Once, 1 dose, On Wed05/01/25 at 1815, STAT New Bag 05/01/2025 7:42 PM EDT 1,000 mL lactated Ringer's infusion 50 mL/hr, Intravenous, Continuous, Starting on Wed05/01/25 at 2305, Until Wed05/02/25 at 1650, Routine New Bag 05/02/2025 4:51 AM EDT 75 mL/hr 75 mL/hr lactated Ringer's infusion 50 mL/hr, Intravenous, Continuous, Starting on Wed05/04/25 at 1830, Until Wed05/05/25 at 1719, Routine New Bag 05/05/2025 12:54 PM EDT 50 mL/hr 50 mL/hr New Bag 05/04/2025 6:20 PM EDT 50 mL/hr 50 mL/hr melatonin tablet 9 mg 9 mg, Oral, Nightly PRN, Starting on Wed05/04/25 at 2254, Until Wed05/05/25 at 1719, Routine, sleep Given 05/04/2025 10:59 PM EDT 9 mg mometasone-formoterol (Dulera 100) 100-5 MCG/ACT inhaler 2 puff 2 puff, Inhalation, 2 times daily, First dose on Wed05/02/25 at 0900, Until Discontinued Given 05/05/2025 9:20 AM EDT 2 puffs Given 05/04/2025 8:36 PM EDT 2 puffs Given 05/04/2025 8:28 AM EDT 2 puffs morphine PF 4 mg 4 mg, Intravenous, Once, 1 dose, On Wed05/01/25 at 1815, STAT Given 05/01/2025 6:47 PM EDT 4 mg nicotine (Nicoderm CQ) 21 MG/24HR patch 1 patch 1 patch, Transdermal, Daily, First dose on Wed05/01/25 at 2300, Until Discontinued, Routine Medication Applied 05/05/2025 9:20 AM EDT 1 patch Left Arm Medication Applied 05/04/2025 8:27 AM EDT 1 patch Left Arm Medication Applied 05/03/2025 8:02 AM EDT 1 patch Right Arm piperacillin-tazobactam (Zosyn) 3.375 g in sodium chloride 0.9% 100 mL IVPB (vial adapter required) 3.375 g, Intravenous, Once, 1 dose, On Wed05/01/25 at 1830, STAT New Bag 05/01/2025 6:47 PM EDT 3.375 g 220 mL/hr piperacillin-tazobactam (Zosyn) 4.5 g in sodium chloride 0.9% 100 mL IVPB (vial adapter required) 4.5 g, Intravenous, Every 6 hours, First dose on Wed05/02/25 at 0100, Until Discontinued, Routine New Bag 05/04/2025 2:05 PM EDT 4.5 g 36.7 mL/hr New Bag 05/04/2025 8:28 AM EDT 4.5 g 36.7 mL/hr New Bag 05/04/2025 1:20 AM EDT 4.5 g 36.7 mL/hr potassium chloride CR (Klor-Con) ER tablet 40 mEq 40 mEq, Oral, Every 2 hours, 2 doses, First dose on Wed05/04/25 at 0730, Last dose on Wed05/04/25 at 0930, Routine Given 05/04/2025 10:16 AM EDT 40 mEq Given 05/04/2025 8:27 AM EDT 40 mEq sincalide (Kinevac) injection 1.2 mcg 1.2 mcg (rounded from 1.23 mcg = 0.02 mcg/kg 61.5 kg), Intravenous, Once, 1 dose, On Wed05/04/25 at 1230, Routine, Imaging NM Protocol Orders Given 05/04/2025 11:57 AM EDT 1.2 mcg Left Forearm sodium chloride 0.9 % flush 10 mL 10 mL, Intravenous, Every 12 hours, First dose on Wed05/01/25 at 2300, Until Discontinued, Routine Given 05/05/2025 9:20 AM EDT 10 mL Given 05/04/2025 8:53 PM EDT 10 mL Given 05/04/2025 1:21 AM EDT 10 mL sodium chloride 0.9 % flush 10 mL 10 mL, Intravenous, As needed, Starting on Wed05/01/25 at 2253, Until Wed05/05/25 at 1719, Routine, line care technetium Tc-99m mebrofenin (Choletec) radio-isotope injection 4 millicurie 4 millicurie, Intravenous, Once, 1 dose, On Wed05/04/25 at 1315, Routine, Imaging NM Protocol Orders Given 05/04/2025 12:29 PM EDT 4.01 millicuries Tiotropium [place] Monohydrate (Spiriva Respimat) 2.5 MCG/ACT inhaler 2 puff 2 puff, Inhalation, Daily, First dose on Wed05/02/25 at 0900, Until Discontinued Given 05/05/2025 9:20 AM EDT 2 puffs Given 05/04/2025 8:28 AM EDT 2 puffs Given 05/03/2025 8:03 AM EDT 2 puffs documented in this encounter Active and Recently Administered Medications Times are shown in EDT. Scheduled Medication Order 05/03/2025 05/04/2025 05/05/2025 escitalopram (Lexapro) tablet 20 mg 20 mg, Oral, Daily, First dose on Wed05/02/25 at 0900, Until Discontinued, Routine 0802 (Given - Provider: Esme Poe RN) 08 (Given - Provider: Esme Poe RN) 09 (Given - Provider: Kimi Romero, NIURKA) furosemide (Lasix) tablet 20 mg 20 mg, Oral, Daily, First dose on Wed05/02/25 at 0900, Until Discontinued, Routine 08 (Given - Provider: Esme Poe RN) 826 (Given - Provider: Esme Poe RN) 09 (Given - Provider: Kimi Romero RN) mometasone-formoterol (Dulera 100) 100-5 MCG/ACT inhaler 2 puff(Linked Group 1) 2 puff, Inhalation, 2 times daily, First dose on Wed05/02/25 at 0900, Until Discontinued 08 (Given - Provider: Esme Poe RN)2248 (Given - Provider: Karen Avila) 08 (Given - Provider: Esme Poe RN)2035 (Given - Provider: Anne Bettencourt RN) 09 (Given - Provider: Kimi Romero, NIURKA) nicotine (Nicoderm CQ) 21 MG/24HR patch 1 patch 1 patch, Transdermal, Daily, First dose on Wed05/01/25 at 2300, Until Discontinued, Routine 08 (Medication Applied - Provider: Esme Poe RN) 826 (Medication Applied - Provider: Esme Poe RN) 09 (Medication Applied - Provider: Kimi Romero RN) piperacillin-tazobactam (Zosyn) 4.5 g in sodium chloride 0.9% 100 mL IVPB (vial adapter required) (CANCELED) 4.5 g, Intravenous, Every 6 hours, First dose on Wed05/02/25 at 0100, Until Discontinued, Routine 0153 (New Bag - Provider: Karen Avila)0758 (New Bag - Provider: Esme Poe RN)1230 (New Bag - Provider: Esme Poe RN)1953 (New Bag - Provider: Karen Avila) 0120 (New Bag - Provider: Karne Avila)0828 (New Bag - Provider: Esme Poe, NIURKA)1405 (New Bag - Provider: Esme Poe RN) potassium chloride CR (Klor-Con) ER tablet 40 mEq (COMPLETED) 40 mEq, Oral, Every 2 hours, 2 doses, First dose on Wed05/04/25 at 0730, Last dose on Wed05/04/25 at 0930, Routine 0827 (Given - Provider: Esme Poe RN)1016 (Given - Provider: Esme Poe RN) sincalide (Kinevac) injection 1.2 mcg (COMPLETED) 1.2 mcg (rounded from 1.23 mcg = 0.02 mcg/kg 61.5 kg), Intravenous, Once, 1 dose, On Wed05/04/25 at 1230, Routine, Imaging NM Protocol Orders 1157 (Given - Provider: Eliseo Cueva - Comment: infusion for 10 min) sincalide (Kinevac) injection 1.2 mcg 1.2 mcg (rounded from 1.23 mcg = 0.02 mcg/kg 61.5 kg), Intravenous, Once, 1 dose, On Wed05/04/25 at 1830, Routine 1818 (Not Given - Provider: Esme Poe RN - Reason: See Provider Order - Comment: TessJoseph Nicolette said not to give) sodium chloride 0.9 % flush 10 mL(Linked Group 2) 10 mL, Intravenous, Every 12 hours, First dose on Wed05/01/25 at 2300, Until Discontinued, Routine 1016 (Canceled Entry - Provider: Esme Poe RN) 0121 (Given - Provider: Karen Avila)1002 (Canceled Entry - Provider: Esme Poe, NIURKA)2053 (Given - Provider: Anne Bettencourt RN) 0920 (Given - Provider: Kimi D Nick, RN) technetium Tc-99m mebrofenin (Choletec) radio-isotope injection 4 millicurie (COMPLETED) 4 millicurie, Intravenous, Once, 1 dose, On Wed05/04/25 at 1315, Routine, Imaging NM Protocol Orders 1229 (Given - Provider: Eliseo Cueva) Tiotropium [place] Monohydrate (Spiriva Respimat) 2.5 MCG/ACT inhaler 2 puff(Linked Group 1) 2 puff, Inhalation, Daily, First dose on Wed05/02/25 at 0900, Until Discontinued 0803 (Given - Provider: Esme Poe, NIURKA) 0828 (Given - Provider: Esme Poe, RN) 0920 (Given - Provider: Kimi Romero, NIURKA) Continuous Medication Order 05/03/2025 05/04/2025 05/05/2025 lactated Ringer's infusion 50 mL/hr, Intravenous, Continuous, Starting on Wed05/04/25 at 1830, Until 05/05/25 at 1719, Routine 1820 (New Bag - Provider: Esme Poe RN) 1254 (New Bag - Provider: Kimi Romero, RN) PRN Medication Order 05/03/2025 05/04/2025 05/05/2025 albuterol 108 (90 Base) MCG/ACT inhaler 2 puff 2 puff, Inhalation, 4 times daily PRN, Starting on Wed05/02/25 at 0232, Until 05/05/25 at 1719, Routine, shortness of breath, wheezing calcium carbonate (Tums) chewable tablet 500 mg 500 mg, Oral, Every 4 hours PRN, Starting on Wed05/02/25 at 0232, Until 05/05/25 at 1719, Routine, indigestion, heartburn cyclobenzaprine (Flexeril) tablet 5 mg 5 mg, Oral, 2 times daily PRN, Starting on Wed05/02/25 at 0232, Until 05/05/25 at 1719, Routine, muscle spasms, back pain 0920 (Given - Provider: Kimi Romero, NIURKA) HYDROmorphone (Dilaudid) injection 0.5 mg 0.5 mg, Intravenous, Every 4 hours PRN, Starting on Wed05/01/25 at 2302, Until 05/05/25 at 1719, Routine, severe pain 0510 (Given - Provider: Karen Avila)0942 (Given - Provider: Esme Poe RN)1406 (Given - Provider: Esme Poe RN)1956 (Given - Provider: Karen Avila) 1405 (Given - Provider: Esme Poe, NIURKA)2259 (Given - Provider: Anne Bettencourt RN) 1336 (Given - Provider: Jayy Benítez RN) HYDROmorphone (Dilaudid) tablet 3 mg 3 mg, Oral, Every 4 hours PRN, Starting on Wed05/02/25 at 0233, Until 05/05/25 at 1719, Routine, severe pain 1615 (Given - Provider: Esme Poe RN - Comment: Ok to give per MD) 1627 (Given - Provider: Esme Poe RN)203 (Given - Provider: Anne Bettencourt RN) 0053 (Given - Provider: Anne Bettencourt RN)0814 (Given - Provider: Kimi Romero RN) melatonin tablet 9 mg 9 mg, Oral, Nightly PRN, Starting on Wed05/04/25 at 2254, Until 05/05/25 at 1719, Routine, sleep 2259 (Given - Provider: Anne Bettencourt RN) sodium chloride 0.9 % flush 10 mL(Linked Group 2) 10 mL, Intravenous, As needed, Starting on Wed05/01/25 at 2253, Until 05/05/25 at 1719, Routine, line care Linked Groups Order Group 1: Tiotropium [place] Monohydrate (Spiriva Respimat) 2.5 MCG/ACT inhaler 2 puffJump to med 2 puff, Inhalation, Daily, First dose on Wed05/02/25 at 0900, Until Discontinued And mometasone-formoterol (Dulera 100) 100-5 MCG/ACT inhaler 2 puffJump to med 2 puff, Inhalation, 2 times daily, First dose on Wed05/02/25 at 0900, Until Discontinued Group 2: Insert peripheral IV (COMPLETED) Once, On Wed05/01/25 at 2254, For 1 occurrence And Saline lock IV (COMPLETED) Once, On Wed05/01/25 at 2254, For 1 occurrence And sodium chloride 0.9 % flush 10 mLJump to med 10 mL, Intravenous, Every 12 hours, First dose on Wed05/01/25 at 2300, Until Discontinued, Routine And sodium chloride 0.9 % flush 10 mLJump to med 10 mL, Intravenous, As needed, Starting on Wed05/01/25 at 2253, Until 05/05/25 at 1719, Routine, line care documented in this encounter Additional Health Concerns Infection Onset Date Last Indicated Resolved Time C. difficile Rule-Out 05/04/2025 05/04/2025 Assessment Noted Time A fall risk assessment has been complete d for the patient 03/14/2025 9:07 AM EDT A Body Mass Index follow-up plan has been documented for the patient 05/05/2025 1:57 PM EDT documented as of this encounter Care Teams Break And Load Operator Relationship Specialty Start Date End Date Pcp, [place] [address] PCP - General Family Medicine 03/20/25 Isabella Saucedo APRN [address] [facility] [address] [place] [address] Referring Physician 02/26/25 Jeannie Mcmillan, RN [facility] [address] [place] [address] Registered Nurse Transplant Surgery 03/08/25 Ebony Shoemaker [place] [phone] Registered Nurse Transplant Surgery 03/08/25 Rodney Gonzáles MD [address] [facility] [address] [place], [place] [address] Medical Oncologist 04/10/25 documented as of this encounter
--- OUTSIDE RECORDS SUMMARY | 2025-05-08 11:49 | XMS_ITS | Encounter Summary ---
Author Organization [place] [address] Care Team Providers Care Certified Driver Examiner Name Role Phone Jan Sin MD Unavailable [phone] Macario Pryor MD Unavailable Unavailabl e Cr Resendez MD Primary Care Provider Reason for Visit * Reason Comments Medication Refill Encounter Details Date Type Department Care Team (Late st Contact Info) Description 04/26/[address] [facility] [place] [address] Cr Resendez MD [address] [place] [address] [place] [address] Medication Refill Social History Tobacco Use Types [...] and sent to requesting pharmacy. Routed to [facility] if an appointment is needed. clopidogreL [...] Discontinue Reason Start Date End Da te gcnxjzgvqwe-[id number] anter (TRELEGY ELLIPTA) 100-62.5-25 mcg Inhl Disk [...] as of this encounter Care Teams Certified Driver Examiner Relationship Specialty Start Date End Date Macario Pryor MD [address] [place] [address] [place] [address] PCP - Hematology/Oncology Internal Medicine-Medical Oncology 11/12/15 Cr Resendez MD [address] [place] [address] [place] [address] PCP - General Family Medicine 11/24/21 Jan Sin MD [address] [place] [address] [place] [address] Internal Medicine-Cardiovascul ar Disease 08/28/14 documented as of this encounter
--- OUTSIDE RECORDS SUMMARY | 2025-05-08 11:50 | XMS_ITS | Encounter Summary ---
Author Organization Healthcare Address [address] [place] [address] Care Team Providers Care Sleeve Wheel Maker Name Role Phone Isabella Saucedo Phong JOURNEY LINEMAN Unavailable [phone] Jeannie Mcmillan RN Unavailable [phone] Ebony Shoemaker Unavailable [phone] Pcp, No Primary Care Provider Unavailabl e Encounter Details Date Type Department Care Team (Late st Contact Info) Description 03/20/2025 Orders Only External Location [address] [place] [address] Provider, External Social History Tobacco Use Types [...] Month) No 025 8:00 AM EDT Sandy Moseely, NIURKA 2. Non-Specific Active Suici heriberto Thoughts (Past 1 Month) No 03/21/2025 8:00 AM EDT Dali Moseley RN 6. Suicidal Behavior (Lifetime) No 8:00 AM EDT Sandy Moseley, NIURKA documented as of this encounter Plan of [...] documented as of this encounter Care Teams Sleeve Wheel Maker Relationship Specialty Start Date End Date Pcp, No [address] [place] [address] PCP - General Family Medicine 03/20/25 Isabella Saucedo, JOURNEY LINEMAN [address] [place] [address] Referring Physician 02/26/25 Jeannie Mcmillan, RN [facility] [address] [place] [id number] Registered Nurse Transplant Surgery 03/08/25 Ebony Sohemaker [place] [phone] Registered Nurse Transplant Surgery 03/08/25 documented as of this encounter
--- OUTSIDE RECORDS SUMMARY | 2025-05-08 11:50 | XMS_ITS | Clinical Summary ---
Author Organization [facility] Address [address] [place] [address] Phone Care Team Providers Care Neon Tube Pumper Name Role Phone Jan Sin MD Unavailable [phone] Macario Pryor MD Unavailable [facility] Watkins MD Primary Care Provider [phone] Allergies Active Allergy Reactions Criticality Noted Date [...] 25 Active nalOXone (NARCAN) 4 mg/actuation Nasl [place], Non-Aerosol 0.1 mL by Nasal route daily [...] the original. hillary stevens contracts signed 04/19/12 [facility]05/01/15 #[id number] [facility] 12/12/15 ,02/28/16 [id number],04/09/16 [id number], 11/27/16 [facility] 06/08/14,12/12/15, 10/02/16 Problem Noted Date Diagnosed Date Hepatocellular carcinoma 04/23/2025 Assessment & Plan (04/23/2025 9:20 AM EDT): Under treatment with GI and oncology at [facility]. On once monthly chemotherapy at this [...] (12/01/2022): Added automatically from request for surgery [id number] Mixed simple and mucopurulent chronic bronchitis 11/26/2022 Assessment & Plan (04/23/2025 9:20 AM EDT): Stable on Trelegy continue current regiment Assessment & Plan (12/21/2024 9:37 AM EDT): Orders: BASIC METABOLIC PANEL; Future Assessment & Plan (09/07/2024 10:49 AM EST): Orders: ywvnlanufzv-igwtassqt-fcojlyzf (TRELEGY ELLIPTA) 100-62.5-25 mcg Inhl Disk with [...] Redo CABG 6 mo later at [facility] with // patent grafts 2009 Unspecified essential [...] 07/04/2015 S/P coronary angiogram 08/31/201407/04 Overview (08/31/2014): [facility] 10/15/2009 four out of four grafts, SVG [...] Encounters Date Type Department Care Team Description 05/05/2025 Nurse Triage SEP Nurse Now [facility] [email or web address] [address] Alicia Jones RN 04/26/2025 Refill [facility] [address] [place] [address] Cr Resendez MD Medication Refill 04/24/2025 Results Follow-Up ABDULLAHI Walsh [address] [place] [address] Cr Resendez MD HEMOGLOBIN A1C, COMPREHENSIVE METABOLIC PANEL, CBC WITH DIFF, Additional followed-up results: 3 04/23/2025 9:30 AM EDT Clinical Support ABDULLAHI [address] [place] [address] Elizabeth Reynoso, NIURKA Encounter for support and coordination of transition of care (Primary Dx) 04/23/2025 9:00 AM EDT Office Visit ABDULLAHI Walsh [address] [place] [address] Cr Resendez MD Encounter for Medicare annual wellness exam (Primary Dx); Hepatocellular carcinoma (HCC); Chronic systolic congestive heart failure (HCC); Mixed simple and mucopurulent chronic bronchitis (HCC); Unspecified essential hypertension; Screening for prostate cancer; Bilateral impacted cerumen 04/19/2025 Patient Outreach SEP [facility] [address] [place] [address] Cr Resendez MD Central Patient Navigator Outreach (AWV Questionnaire/) 03/26/2025 Refill SEP [address] [place] [address] Cr Resendez MD Medication Refill 02/22/2025 Telephone SEP [place] [address] [address] [place] [address] Cr Resendez MD Paperwork/forms 02/20/2025 Refill SEP [place] [address] [address] [place] [address] Cr Resendez MD Medication Refill 02/12/2025 Refill SEP [address] [place] [address] Cr Resendez MD Medication Refill from Last [...] Quintero MD; Location: [facility]; Service: Endoscopy UPPER GASTROINTESTINAL ENDOSCOPY 10/30/2015 N/A ESOPHAGOGASTRODUODENOSC OPY with biopsies; Surgeon: Poppy Quintero MD; Location: [facility]; Service: Endoscopy CARDIAC SURGERY 08/30/2018 - 08/29/2019 pace maker CORONARY ANGIOPLASTY WITH STENT PLACEMENT 01/04/2024 [facility] NECK SURGERY 12/06/2024 [facility] Medical History Medical History Date Comments COPD (chronic obstructive pu lmonary disease) ([facility]) Shortness of breath Blood circulation, collateral fe et and hands get cold since cabg CAD (coronary artery disease) Hypertension OR (myocardial infarction) ([facility]) 4 times Arthritis Headache(784.0) Neuromuscular disorder ([facility]) lennox k and left leg Other [...] 2018 COVID-19 Vaccine (1 - 2023- season) 2025 Influenza Vaccine (#1) 2025 , 06/03/2023, 06/11/2021, [...] Cheng MD Medical Devices Implanted Type Area Mails Supervisor Device Identifier Shelf Expiration Date Model / Serial / Lot [employer] Vigilant ICD D233 / / [employer] Lead Lead 0675 / / [employer] Lead Lead LPA 1200M / / Spinal Cord Stimulator Lead Description:pt has a retaine d spinal cord stimulator lead. generator was removed about 7-8 years ago per pt. - 09-24-2020 Procedures Procedure Name Priority Date/Time Associated Diagnosis Comments SCANNED LABS 05/07/2025 4:00 PM EDT SCANNED LABS 05/07/2025 4:00 PM EDT PROSTATE SPECIFIC ANTIGEN (SCREENING) Routine 04/23/2025 9:47 [...] Recently Relevant to Health Maintenance Results * SCANNED LABS (05/07/2025 4:00 PM EDT) Only the most recent of4 resultswithin the time period is included. 05/07/2025 4:00 PM EDT us Unknown Provider HEMATOLOGY ORDERABLES Final Res ult * LIPID PANEL REFLEX (04/23/2025 9:47 AM EDT) Cholesterol 98 <200 mg/dL 04/23/2025 4:37 PM EDT [facility] Comment: < 200 Desirable 200 - 239 Borderline High >= 240 High Triglyceride 38 <150 mg/dL 04/23/2025 4:37 PM EDT [facility] Comment: < 150 Normal 150 - 199 Borderline High 200 - 499 High >= 500 Very High HDL 40 >=40 mg/dL 04/23/2025 4:37 PM EDT [facility] Comment: > 60 Optimal 40 - 60 Acceptable < 40 Low LDL Calculated 47 <100 mg/dL 04/23/2025 4:37 PM EDT [facility] Comment: < 100 Optimal 100 - 129 Near or above optimal 130 - 159 Borderline High 160 - 189 High >= 190 Very High The National Institutes of Health (NIH) equation is used for all lipid panels that report calculated LDL (LDL-C). Non-HDL-C Calculated 58 <=129 mg/dL 04/23/2025 4:37 PM EDT [facility] Comment: <130 Desirable 130-159 Above Desirable 160-189 Borderline High 190-219 High >= 220 Very High Fasting Specimen? Yes None 025 4:37 PM EDT [facility] Blood VENOUS BLOOD / Unknown Venipuncture / Unknown 04/23/2025 9:47 AM EDT 04/23/2025 9:47 AM EDT us Cr Resendez MD CHEMISTRY ORDERABLES Final Res ult [facility] [address] [facility] , [place] [address] * TSH REFLEX TO FT4 (04/23/2025 9:47 AM EDT) TSH Reflex 0.889 0.270 - 4.200 mcIU/mL 04/23/2025 4:37 PM EDT [facility] Mamina Shkola [facility] Blood VENOUS BLOOD / Unknown Venipuncture / Unknown 04/23/2025 9:47 AM EDT 04/23/2025 9:47 AM EDT Narrative [facility] Mamina Shkola [facility] - 04/23/2025 4:37 PM EDT Ingestion of fernanda doses of biotin (>5 mg/day) taken within 8 hours of drawing blood sample can interfere with this immunoassay test. Cr Resendez MD CHEMISTRY ORDERABLES Final Res ult Performing Organization Address [facility] de Phone Number [facility] [address] [place] [address] , [place] [address] * PROSTATE SPECIFIC ANTIGEN (SCREENING) (04/23/2025 9:47 AM EDT) Total Psa 0.08 <=4.00 ng/mL 04/23/2025 3:49 PM EDT [facility] Mamina Shkola [facility] Blood VENOUS BLOOD / Unknown Venipuncture / Unknown 04/23/2025 9:47 AM EDT 04/23/2025 9:47 AM EDT Narrative [facility] Mamina Shkola [facility] - 04/23/2025 3:49 PM EDT The [...] ORDERABLES Final Res ult Performing Organization Address [facility]/ZIP Co de Phone Number [facility] [address] [facility] , [place] [address] * (ABNORMAL) CBC WITH DIFF (04/23/2025 9:47 AM EDT) [facility] WBC 7.3 3.7 - 10.3 [...] 4:08 PM EDT [facility] Horry # 1.2(H) 0.3 - 0.9 x10(3)/mcL 04/23/2025 4:08 PM EDT [facility] Eos # Manual 0.0 0.0 - 0.5 x10(3)/mcL 04/23/2025 4:08 PM EDT [facility] Baso # Manual 0.1 0.0 - 0.1 x10(3)/mcL 04/23/2025 4:08 PM EDT [facility] Polychrom Slight 04/23/2025 4:08 PM EDT [facility] Burnside Cell Moderate 04/23/2025 4:08 PM EDT [facility] Elliptocyte Occasional 04/23/2025 4:08 PM EDT [facility] Target Cell Occasional 04/23/2025 4:08 PM EDT [facility] Blood VENOUS BLOOD / Unknown Venipuncture / Unknown 04/23/2025 9:47 AM EDT 04/23/2025 9:47 AM EDT us Cr Resendez MD HEMATOLOGY ORDERABLES Final Re sult [facility], [facility] [address] [facility] , [place] [address] * (ABNORMAL) HEMOGLOBIN A1C (04/23/2025 9:47 AM EDT) [facility] Hgb A1C 5.7(H) 4.2 - 5.6 % 04/23/2025 5:18 PM EDT [facility] Est. Avg Glucose 117 mg/dL 04/23/2025 5:18 PM EDT [facility] Blood VENOUS BLOOD / Unknown Venipuncture / Unknown 04/23/2025 9:47 AM EDT 04/23/2025 9:47 AM EDT Narrative [facility] - 04/23/2025 5:18 PM EDT REFERENCE RANGE: [...] Res ult [facility] [address] [facility] , [place] [address] * (ABNORMAL) COMPREHENSIVE METABOLIC PANEL (04/23/2025 9:47 [...] mg/dL 04/23/2025 4:37 PM EDT [facility] ALT 26 <=41 U/L 04/23/2025 4:37 PM EDT [facility] AST 74(H) <=40 U/L 04/23/2025 4:37 PM EDT [facility] Alk Phos 142(H) 40 - 129 U/L 04/23/2025 4:37 PM EDT [facility] eGFR (CKD-EPIcr 2020) 96 >=60 mL/min/1.7 3 m2 04/23/2025 4:37 PM EDT [facility], [facility] Comment:Estimated GFR was ca lculated using the CKD-EPIcr (2020) equation refit without race. The equation is recommended by the National Kidney Foundation - Citizen Of [place] Society of Nephrology Task Force. Blood VENOUS BLOOD / Unknown Venipuncture / Unknown 04/23/2025 9:47 AM EDT 04/23/2025 9:47 AM EDT us Cr Resendez MD CHEMISTRY ORDERABLES Final Res ult [facility], [facility] [address] [facility] , [address] [place] [id number] * US AAA SCREENING EXAM MEDICARE (12/16/2023 [...] CLINICAL HISTORY: Z13.6-Encounter for screening for cardiovascular hpaaeyuau-SCD-13-CM. COMPARISON: CT abdomen pelvis from 09/07/2023 PROCEDURE COMMENTS: Routine sonographic evaluation of the abdominal aorta with tax compliance representative images sent to PACS along with tax expert notes. FINDINGS: The abdominal aorta is normal in caliber. Maximum transverse diameter is 2.4 cm. Atherosclerotic change in the aorta and iliac vessels noted unchanged from the recent CT Procedure Note Cr Ramachandran MD - 12/16/2023 US AAA SCREENING EXAM MEDICARE, 12/16/2023 9:55 AM CLINICAL HISTORY: Z13.6-Encounter for screening for cardiovascular znolvvaob-BPS-10-CM. COMPARISON: CT abdomen pelvis from 09/07/2023 PROCEDURE COMMENTS: Routine sonographic evaluation of the abdominal aortawith tax compliance representative images sent to PACS along with tax expert notes. FINDINGS: The abdominal aorta is normal [...] Cr Resendez MD [facility] ORDERABLES Final Result * COLONOSCOPY (01/13/2023 1:07 [...] Pena MD Performing Provider Raymond Harris RN Shower Doors And Panels Fabricator Gurvinder Garner MD Anesthesiologist Mary Jo Romero [...] PATHOLOGY TISSUE REQUEST Casper Pena MD 01/13/2023 4847 2 : sigmoid colon polyp via cold snare Tissue Large Intestine, Sigmoid Colon PATHOLOGY TISSUE REQUEST Casper Pena MD 01/13/2023 1303 Casper Pena MD ENDOSCOPY PROCEDURE ORDERABL ES Final Result * HEPATITIS C ANTIBODY - SCREENING (11/24/2021 10:38 AM EDT) Hep C Ab Non-Reactiv e Non-Reacti ve 11/24/2021 3:20 PM EDT [facility], [facility] Blood VENOUS BLOOD / Unknown Venipuncture / Unknown 11/24/2021 10:38 AM EDT 11/24/2021 10:43 AM EDT Cr Resendez MD HEMATOLOGY ORDERABLES Final Re sult [facility] [address] [facility] , [place] [address] from Last 3 Months or Most Recently Relevant to Health Maintenance Insurance [place] [address] [place]ICA[place] [address] [place] [address] [place] Care Teams Neon Tube Pumper Relationship Specialty Start Date End Date Macario Pryor MD [address] [place] [address] [place] [address] PCP - Hematology/Oncology Internal Medicine-Medical Oncology 11/12/15 Cr Resendez MD [address] [place] [address] [place] [address] PCP - General Family Medicine 11/24/21 Jan Sin MD [address] [place] [address] [place] [address] Internal Medicine-Cardiovascul ar Disease 08/28/14
--- OUTSIDE RECORDS SUMMARY | 2025-05-08 11:50 | XMS_ITS | Encounter Summary ---
Author Organization Healthcare Address [address] [place] [address] Care Team Providers Care Device Repair Technician Name Role Phone Isabella Saucedo Phong PROP MAKER Unavailable [phone] Jeannie Mcmillan RN Unavailable [phone] Ebony Shoemaker Unavailable [phone] Pcp, No Primary Care Provider Unavailabl e Encounter Details Date Type Department Care Team (Late st Contact Info) Description 03/20/2025 Orders Only External Location [address] [place] [address] Provider, External Social History Tobacco Use Types [...] documented as of this encounter Care Teams Device Repair Technician Relationship Specialty Start Date End Date Pcp, No [address] [place] [address] PCP - General Family Medicine 03/20/25 Isabella Saucedo APRN [address] [place] [address] [place] [address] Referring Physician 02/26/25 Jeannie Mcmillan, RN [facility] [address] [place] [address] Registered Nurse Transplant Surgery 03/08/25 Ebony Shoemaker [place] [id number] Registered Nurse Transplant Surgery 03/08/25 documented as of this encounter
--- OUTSIDE RECORDS SUMMARY | 2025-05-08 11:50 | XMS_ITS | Clinical Summary ---
Author Organization [facility] Address [address] [facility] [address] [place] [id number] Phone Care Team Providers Care Gardener Name Role Phone Leander RIOS, [facility] Conditions or Problems Problem Name Problem Code Onset Date Status Entry Date Provider Comment Standard Description Annotate FOLLOW-UP EXAMINATION FOLLOWING OTHER SURGERY Z09 (ICD-10-CM) 10/20 Active 10/20 Emily Kern MA Encounter for follow-up examination after completed treatment for conditions other than malignant neoplasm BACK PAIN, LUMBAR, WITH RADICULOPATHY [id number] (SNOMED CT) Active Emily Kern MA Lumbar radiculopathy Medications Medication Instructions Start Date Stop Date Generic Name [facility] Provider MELOXICAM 15 MG TABS 1 daily Non-[place] 8 MELOXICAM [id number] Emily Kern MA METOPROLOL TARTRATE 25 MG TABS 1 daily Non-[place] 8 METOPROLOL TARTRATE [id number] Emily Kern MA PRAVASTATIN SODIUM 40 MG TABS 1 daily Non-[place] 8 PRAVASTATIN SODIUM 28782676187 Emily Wilsonriccardo WILL PLAVIX 75 MG TABS 1 daily Non-[place] 8 CLOPIDOGREL BISULFATE 60864527806 Emily Wilsonriccardo WILL LISINOPRIL 5 MG TABS 1 daily Non-[place] 8 LISINOPRIL 27472837346 Emily Wilsonriccardo WILL ASPIRIN ADULT LOW STRENGTH 81 MG TBEC 1 daily Non-[place] 8 ASPIRIN 57787076944 Emilynathaniel Kern MA ALPRAZOLAM 1 MG TABS 1 qhs Non-[place] 8 ALPRAZOLAM 88494963219 Emily Kern MA HYDROCODONE-BRENNAN TAMINOPHEN 10-650 MG ORAL TABLET 1 qid Non-[place] 8 HYDROCODONE-AC ETAMINOPHEN 92189485646 Emily Kern MA GABAPENTIN 600 MG TABS 2 q morning & 3 q evening [facility] 8 GABAPENTIN 57608303305 Emily Kern MA RANEXA 500 MG ORAL TABLET EXTENDED RELEASE 12 HOUR 1 bid [facility] 8 RANOLAZINE [phone] Emily Kern MA Medications Administered No information [...]
--- OUTSIDE RECORDS SUMMARY | 2025-05-08 11:50 | XMS_ITS | Encounter Summary ---
Author Organization [facility] Address [address] [place] [address] Care Team Providers Care Foreman/Pile Driving And Erection Name Role Phone Lewis Isabella Darling VP OF MARKETING Unavailable [phone] eJannie Mcmillan RN Unavailable [phone] Ebony Shoemaker Unavailable [phone] Pcp, No Primary Care Provider Unavailabl e Rodney Gonzáles MD Unavailable [phone] Reason for Visit * Reason Comments Txp Surgical Follow-up Encounter Details Date Type Department Care Team (Late st Contact Info) Description 04/06/[address] [facility] [address] [facility] [address] [place] [address] Ebony Shoemaker [place] [phone] Txp Surgical Follow-up Social History Tobacco Use [...] * Telephone Encounter - Ebony Shoemaker - 04/10/2025 11:50 AM EDT I spoke with Veronica the sales office administrator with Isabella Kitchen' office. She said that [...] chemo. He does not follow with a manager wealth management per Ashley. Added to Dr. Do's discussion [...] documented as of this encounter Care Teams Foreman/Pile Driving And Erection Relationship Specialty Start Date End Date Pcp, [address] [address] PCP - General Family Medicine 03/20/25 Isabella Saucedo APRN [address] [facility] [address] [place], [place] [id number] Referring Physician 02/26/25 Jeannie Mcmillan, RN [facility] [address] [place] [address] Registered Nurse Transplant Surgery 03/08/25 [place] [address] Registered Nurse Transplant Surgery 03/08/25 Rodney Gonzáles MD 12[address] [facility] [address] [place] [address] Medical Oncologist 04/10/25 documented as of this encounter
--- OUTSIDE RECORDS SUMMARY | 2025-05-08 11:50 | XMS_ITS | Encounter Summary ---
Author Organization [place] [address] Care Team Providers Care Etl Consultant Name Role Phone Jan Sin MD Unavailable [phone] Macario Pryor MD Unavailable Unavailabl e Cr Resendez MD Primary Care Provider Reason for Visit * Reason Onset Date Comments Other 01/25/2025 insurance compan y called asking if office can watch for active patient verification form was rec'd. Please advise. Encounter Details Date Type Department Care Team (Late st Contact Info) Description 01/25/2025 Telephone ABDULLAHI RODRIGUEZ [address] [place] [address] [place] [address] Cr Resendez MD [address] [place] [address] [place] [id number] Other (insurance company called asking if [...] documented as of this encounter Care Teams Etl Consultant Relationship Specialty Start Date End Date Macario Pryor MD [address] [place] [address] [place] [id number] PCP - Hematology/Oncology Internal Medicine-Medical Oncology 11/12/15 Cr Resendez MD [address] [place] [address] [place] [address] PCP - General Family Medicine 11/24/21 Jan Sin MD [address] [place] [address] [place] [id number] Internal Medicine-Cardiovascul ar Disease 08/28/14 documented as of this encounter
--- OUTSIDE RECORDS SUMMARY | 2025-05-08 11:50 | XMS_ITS | Encounter Summary ---
Author Organization [place] [address] Care Team Providers Care International Student Advisor Name Role Phone Jan Sin MD Unavailable Macario Pryor MD Unavailable Cr Rodriguez MD Primary Care Provider [phone] Reason for Visit * Reason Onset Date Comments Bloated 05/05/2025 Encounter Details Date Type Department Care Team (Late st Contact Info) Description 05/05/2025 Nurse Triage SEP Nurse Now [address] [place] [phone] Alicia Jones, RN Social History Tobacco Use Types Packs/Day Years [...] encounter Miscellaneous Notes * Telephone Encounter - Alicia Jones RN - 05/05/2025 7:55 PM EDT Nurse Triage Call -Chief Complaint: pt just returned from [facility] for oncology. He was discharged today looking at pain control. Now home, says his belly is very distended again. Hx of liver cancer and cirrosis. -Reported by: Spouse/Significant Other -Vitals: No vitals obtained on this call -Disposition per protocol: see pcp within 3 days -Follow up/Concerns: will call Reason for Disposition [1] MILD SWELLING of abdomen (e.g., looks distended or swollen) AND [2] new- onset or getting worse Protocols used: Abdomen Bloating and Aruorytl-H-PJ documented in this encounter Plan of Treatment [...] documented as of this encounter Care Teams International Student Advisor Relationship Specialty Start Date End Date Macario Pryor MD [address] [place] [address] [place] [address] PCP - Hematology/Oncology Internal Medicine-Medical Oncology 11/12/15 Cr Resendez MD [address] [place] [address] [place] [address] PCP - General Family Medicine 11/24/21 Jan Sin MD [address] [place] [address] [place] [address] Internal Medicine-Cardiovascul ar Disease 08/28/14 documented as of this encounter
--- OUTSIDE RECORDS SUMMARY | 2025-05-08 11:50 | XMS_ITS | Encounter Summary ---
Author Organization [place] [address] Care Team Providers Care Police Lieutenant Patrol Name Role Phone Jan Sin MD Unavailable [phone] Macario Pryor MD Unavailable Unavailabl e Cr Resendez MD Primary Care Provider [phone] Encounter Details Date Type Department Care Team (Latest Contact Info) Description 04/24/2025 Results Follow-Up SEP Luis [address] [place] [address] Cr Resendez MD [address] [place] [address] [place] [address] HEMOGLOBIN A1C, COMPREHENSIVE [...] [facility] bit [facility]. A1c was slightly elevated in the [...] documented as of this encounter Care Teams Police Lieutenant Patrol Relationship Specialty Start Date End Date Macario Pryor MD [address] [place] [address] [place] [address] PCP - Hematology/Oncology Internal Medicine-Medical Oncology 11/12/15 Cr Resendez MD [address] [place] [address] [place] [address] PCP - General Family Medicine 11/24/21 Jan Sin MD [address] [place] [address] [place] [address] Internal Medicine-Cardiovascul ar Disease 08/28/14 documented as of this encounter
--- OUTSIDE RECORDS SUMMARY | 2025-05-08 11:50 | XMS_ITS | Encounter Summary ---
Author Organization [place] [address] Care Team Providers Care Threat Monitoring Analyst Name Role Phone Jan Sin MD Unavailable [phone] Macario Pryor MD Unavailable Unavailabl e Cr Resendez MD Primary Care Provider [phone] Reason for Visit * Reason Comments Medication Refill Encounter Details Date Type Department Care Team (Late st Contact Info) Description 03/26/2025 Refill SEP Luis [facility] [place] [address] Cr Resendez MD [address] [place] [address] [place] [address] Medication Refill Social History Tobacco Use Types [...] documented as of this encounter Care Teams Threat Monitoring Analyst Relationship Specialty Start Date End Date Macario Pryor MD [address] [place] [address] [place] [address] PCP - Hematology/Oncology Internal Medicine-Medical Oncology 11/12/15 Cr Resendez MD [address] [place] [address] [place] [address] PCP - General Family Medicine 11/24/21 Jan Sin MD [address] [place] [address] [place] [address] Internal Medicine-Cardiovascul ar Disease 08/28/14 documented as of this encounter
--- OUTSIDE RECORDS SUMMARY | 2025-05-08 11:50 | XMS_ITS | Encounter Summary ---
Author Organization [place] [address] Care Team Providers Care Clinical Research Spec Name Role Phone Jan Sin MD Unavailable [phone] Macario Pryor MD Unavailable [facility] Resendez MD Primary Care Provider [phone] Reason for Visit * Reason Onset Date Comments Central Patient Navigator Outreach 04/19/2025 AWV Questionnaire Encounter Details Date Type Department Care Team (Late st Contact Info) Description 04/19/2025 Patient Outreach SEP [facility] [address] [place] [address] Cr Resendez MD [address] [place] [address] [place] [address] Central Patient Navigator Outreach (AWV Questionnaire/) Social [...] Questionnaires Attempt Count: inbound Care Gaps Addressed air cargo ground operations supervisor: Medicare Questionnaire Outcome:Medicare Questionnaire completed Call back number: [phone] * Esme Mendez - 04/19/2025 10:38 AM EDT Patient Outreach: Pre-Visit Questionnaires Attempt Count: 1st Care Gaps Addressed air cargo ground operations supervisor: Medicare Questionnaire Outcome:MyChart Message Sent and Patient not available Call back number: [phone] documented in this encounter Plan of Treatment [...] as of this encounter Care Teams Clinical Research Spec Relationship Specialty Start Date End Date Macario Pryor MD [address] [place] [address] [place] [address] PCP - Hematology/Oncology Internal Medicine-Medical Oncology 11/12/15 Cr Resendez MD [address] [place] [address] [place] [address] PCP - General Family Medicine 11/24/21 Jan Sin MD [address] [place] [address] [place] [address] Internal Medicine-Cardiovascul ar Disease 08/28/14 documented as of this encounter
--- OUTSIDE RECORDS SUMMARY | 2025-05-08 11:50 | XMS_ITS | Encounter Summary ---
Author Organization Healthcare Address [address] [place] [address] Care Team Providers Care Banking Officer Name Role Phone Isabella Saucedo Phong TECHNICAL PRODUCT MANAGER Unavailable [phone] Jeannie Mcmillan RN Unavailable [phone] Ebony Shoemaker Unavailable [phone] Pcp, No Primary Care Provider Unavailabl [...] Suicidal Behavior (Lifetime) No 9:00 PM EDT Ortega[place]Garner, [place] documented as of this encounter Plan of [...] documented as of this encounter Care Teams Banking Officer Relationship Specialty Start Date End Date Pcp, No [address] [place] [address] PCP - General Family Medicine 03/20/25 Isabella Saucedo APRN [address] [facility] [address] [place] [address] Referring Physician 02/26/25 Jeannie Mcmillan, RN [facility] [address] [place] [address] Registered Nurse Transplant Surgery 03/08/25 [place] [address] Registered Nurse Transplant Surgery 03/08/25 documented as of this encounter
--- OUTSIDE RECORDS SUMMARY | 2025-05-08 11:50 | XMS_ITS | Encounter Summary ---
Author Organization Healthcare Address [address] [place] [address] Care Team Providers Care Plumbing Designer Name Role Phone Isabella Saucedo Phong ELECTRONIC DIE MAKER Unavailable [phone] Jeannie Mcmillan RN Unavailable [phone] Ebony Shoemaker Unavailable [phone] Pcp, No Primary Care Provider Unavailabl e Encounter Details Date Type Department Care Team (Late st Contact Info) Description 03/20/2025 Orders Only External Location [address] [place] [address] Provider, External Social History Tobacco Use Types [...] documented as of this encounter Care Teams Plumbing Designer Relationship Specialty Start Date End Date Pcp, No [address] [place] [address] PCP - General Family Medicine 03/20/25 Isabella Saucedo APRN [address] [facility] [address] [place] [address] Referring Physician 02/26/25 Jeannie Mcmillan, RN [facility] [address] [place] [address] Registered Nurse Transplant Surgery 03/08/25 [place] [address] Registered Nurse Transplant Surgery 03/08/25 documented as of this encounter
--- OUTSIDE RECORDS SUMMARY | 2025-05-08 11:50 | XMS_ITS | Clinical Summary ---
Author Organization Healthcare Address [address] [place] [address] Care Team Providers Care Potato Bucker Name Role Phone LewisBereniceIsabella J LINE CREW SUPERVISOR Unavailable [phone] Jeannie Mcmillan RN Unavailable [phone] Ebony Shoemaker Unavailable [phone] Pcp, No Primary Care Provider Unavailabl e Rodney Gonzáles MD Unavailable [phone] Allergies Active Allergy Reactions Criticality Noted [...] 8 hours as needed for muscle spasms. 02/13/20 25 Active Jardiance 10 MG Take 1 tablet by mouth daily. Active escitalopram (Lexapro) 20 MG tablet Take 1 tablet by mouth 1 time each day. 09/07/19 Active furosemide (Lasix) 20 MG tablet Take 2 tablets by mouth daily. 02/06/20 Active naloxone (Narcan) 4 mg/0.1 mL nasal spray 1. Give 1 spray in nostril for no/slow breathing or cannot wake after opioid use 2. Call 911 3. Repeat in other nostril if symptoms continue 12/22/19 Active Entresto 24-26 MG tablet Take 1 [...] by mouth nightly. 60 tablet 5 03/21/20 Active polyethylene glycol (Miralax) 17 g packet [...] needed for severe pain. 90 tablet 03/21/20 Active Additional Information Patient taking differently: 4 mgOral Every 4 hours PRN, severe pain, Reported on 05/03/2025 calcium carbonate (Tums) 500 MG chewable tablet Chew 1 tablet every 4 hours as needed for indigestion or heartburn. 30 tablet 03/21/20 25 Active atorvastatin (Lipitor) 20 MG tablet Take 1 tablet by mouth daily. Active megestrol (Megace) 40 MG/ML suspension Take 20 mL by mouth daily. Shake well just before you measure a dose. Measure with a special dose-measuring spoon or medicine cup, not with a regular table spoon. If you do not have a dose-measuring device, ask your pharmacist for one. Active oxyCODONE-acetamin ophen (Percocet) 7.5-325 MG tablet Take 1 tablet by mouth every 8 hours as needed for severe pain. Active predniSONE (Deltasone) 20 MG tablet Take 3 tablets by mouth daily. 025 Discontin ued(Stop Taking at Discharge ) Active Problems Problem Noted Date Diagnosed Date Abdominal pain 05/01/2025 Assessment & Plan (05/03/2025 7:42 PM EDT): Patient is a 65-year-old male with recently diagnosed nonresectable HCC who presented to the ED on 05/01 with 5 days of right upper quadrant abdominal pain. Per patient, he underwent induction of chemotherapy on 03/29/2025. He states that his pain is not postprandial but rather constant with random flares. On exam he is tender along his [...] Would recommend HIDA scan for further evaluation Hepatocellular carcinoma 03/20/2025 Encounters Date Type Department Care Team Description 05/04/2025 Travel 05/01/2025 4:53 PM EDT - 05/05/2025 2:45 PM EDT Hospital Encounter [facility] [address] [place] [address] Clotilde Saleh MD Arndt, Frederick, MD Vyasabattu, Mahender, MD Generalized abdominal pain (Primary Dx); Hepatocellular carcinoma; RUQ abdominal pain Discharge Disposition: Home or Self Care 05/01/2025 Travel 05/01/2025 Orders Only External Location [address] [place] [address] Chris Lazo MD 04/06/2025 Telephone [facility] [address] [phone] Ebony Shoemaker Txp Surgical Follow-up 03/20/2025 4:39 PM EDT - 03/21/2025 6:51 PM EDT Hospital Encounter [facility] [address] [place] [phone] Clotilde Saleh MD Santos, MD Krystina Wade Anne E, MD Epigastric pain (Primary Dx); Hepatocellular carcinoma; Alcoholic cirrhosis of liver without ascites (CMS/HCC) Discharge Disposition: Home or Self Care 03/20/2025 Travel 03/20/2025 Orders Only External Location [address] [place] [address] Provider, External 03/20/2025 Orders Only External Location [address] [place] [address] Provider, External 03/20/2025 Orders Only External Location [address] [place] [id number] Provider, External 03/16/2025 Telephone [facility] [place] [address] [phone] Ebony Shoemaker Txp Surgical Follow-up (Ernestina: Tumor Board Discussion 03/16/25) 03/14/2025 11:20 AM EDT - 03/14/2025 11:59 PM EDT Hospital Encounter [facility] [address] [place] [address] Elevated AFP; Liver lesion; Hepatic cirrhosis, unspecified hepatic cirrhosis type, unspecified whether ascites present (CMS/HCC) Discharge Disposition: Home or Self Care 03/14/2025 10:00 AM EDT Office Visit [facility] [place] [address] [phone] Peter Do MD HCC (hepatocellular carcinoma) (Primary Dx) 03/14/2025 Orders Only [facility] [place] [address] [place] [phone] Ebony Shoemaker Liver lesion (Primary Dx); Elevated AFP; Hepatic cirrhosis, unspecified hepatic cirrhosis type, unspecified whether ascites present (CMS/HCC) 03/14/2025 Travel 03/10/2025 Travel 03/07/2025 Travel 03/06/2025 Telephone [facility] [place] [address] [address] Cici Ramírez Manisha 03/06/2025 Telephone [facility] [address] [facility] [address] [place] [phone] Angelita Reeves Appointment 03/05/2025 Telephone [facility] [address] [address] Angelita Reeves Appointment 02/26/2025 Telephone [facility] [address] [address] Angelita Reeves Referral - Liver Txp 02/26/2025 [facility] [address] [place] [address] Isabella Saucedo APRN Invasion of liver, gallbladder, pancreas, ipsilateral branch of portal vein, 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) (Primary Dx); Elevated alpha fetoprotein; Hepatic cirrhosis, unspecified hepatic cirrhosis type, unspecified whether ascites present (CMS/HCC) 02/19/2025 [facility] [address] [place] [address] Isabella Saucedo APRN Elevated alpha fetoprotein (Primary Dx); Liver tumor 02/09/2025 11:02 AM EDT - 02/09/2025 11:59 PM EDT Hospital Encounter [facility] [address] [place] [address] Abnormality of alphafetoprotein; Other specified [...] any time in the past 12 m [facility], were you homeless or living in a correction (including now)? No 05/02/2025 [facility] Utilities Answer Date Recorded In the past [address] [employer], gas, oil, or water [employer] threatened to shut off services in your [...] Mass Index 20.15 05/01/2025 5:05 PM EDT Plan of Treatment Health Maintenance Due Date Last Done Comments [facility]-/Child/Adol SDOH Screenings 1958 [id number]-[id number]-[id number] Vaccine (#1) 1963 [facility]-Hepatitis A Vaccines (1 of 2 - Risk 2-dose series) 1977 [facility]-Zoster Vaccines (1 of 2) 1977 [facility]-DTaP,Tdap,and Td Vaccines (1 - Tdap) 11/04/1996 11/03/1996 CT Colonography 2003 Colonoscopy 2003 FIT-DNA 2003 FIT 2003 FOBT 2003 Sigmoidoscopy 2003 [facility]-Colorectal Cancer Screening 2003 [facility]-RSV Vaccine: 60+ Years or (1 - Risk 60-74 years 1-dose series) 2018 [facility]-Medicare Annual Wellness (AWV) 12/13/2024 12/14/2023, 11/26/2022, 11/24/2021 [facility]-Influenza Vaccine (#1) 04/30/202506/20, 06/03/2023, 06/11/2021, Additional history exists [facility]- SDOH Screenings 10/30/2025 [facility]-Adult SDOH Screenings 10/30/2025 05/02/2025 [facility]-Depression Screening 03/14/2026 03/14/2025 [facility]-Pneumococcal Vaccine: 50+ [...] PHARM CHALLENGE Routine 05/04/2025 1:40 PM EDT COMPREHENSIVE METABOLIC PANEL, PLASMA Routine 05/04/2025 4:33 AM EDT CBC W/O DIFFERENTIAL Routine 05/04/2025 4:33 AM EDT CREATINE KINASE, TOTAL, PLASMA Routine 05/04/2025 4:33 AM EDT PHOSPHATIDYLETHANOL (PETH), WHOLE BLOOD, QUANTITATIVE (SO) Routine 05/04/2025 4:33 AM EDT COMPREHENSIVE METABOLIC PANEL, PLASMA Routine 05/03/2025 4:00 AM EDT CBC W/O DIFFERENTIAL Routine 05/03/2025 4:00 AM EDT CONJUGATED BILIRUBIN, PLASMA Routine 05/02/2025 1:42 PM EDT CONJUGATED BILIRUBIN, PLASMA STAT Add-on 05/02/2025 2:07 AM EDT LACTATE, VENOUS Routine 05/02/2025 2:07 AM EDT PROTHROMBIN TIME(PT) / INR Routine 05/02/2025 2:07 AM EDT COMPREHENSIVE METABOLIC PANEL, PLASMA Routine 05/02/2025 2:07 AM EDT CBC WITH AUTO DIFFERENTIAL Routine 05/02/2025 2:07 AM EDT US ABDOMEN RUQ STAT 05/01/2025 7:43 PM EDT TYPE AND SCREEN STAT 05/01/2025 5:54 PM EDT LACTATE, VENOUS STAT 05/01/2025 5:54 PM EDT LIPASE, PLASMA STAT 05/01/2025 5:54 PM EDT MAGNESIUM, PLASMA STAT 05/01/2025 5:5 4 PM EDT COMPREHENSIVE METABOLIC PANEL, PLASMA STAT 05/01/2025 5:54 PM EDT PROTHROMBIN TIME(PT) / INR STAT 05/01/2025 5:54 PM EDT CBC WITH AUTO DIFFERENTIAL STAT 05/01/2025 5:54 PM EDT ECG ADULT STAT 05/01/2025 5:[address] OUTSIDE IMAGES 05/01/2025 12:38 PM EDT PROTHROMBIN TIME(PT) / INR Routine 03/21/2025 6:32 [...] 1:13 PM EDT XR OUTSIDE IMAGES 03/20/2025 12:[address] OUTSIDE IMAGES 03/20/2025 12:[address] CHEST WO IV CONTRAST Routine 03/14/20 25 11:30 AM EDT Elevated AFP Liver lesion Hepatic cirrhosis, unspecified hepatic cirrhosis type, unspecified whether ascites present (CMS/HCC) ALPHA FETOPROTEIN, SERUM STAT 025 8:38 AM EDT Elevated AFP Liver lesion [...] (CMS/HCC) from Last 3 Months Results * NM Hepatobiliary Scan w Pharm [...] MD IMG NM PROCEDURES Final Result * Phosphatidylethanol (PEth), Whole Blood, Quantitative (05/04/2025 4:33 AM EDT) PEth 16:0/18:2 (PLPEth) <10 ng/mL 05/06/2025 12:20 PM EDT [facility] ([facility]) PEth 16:0/18:1 (POPEth) <10 ng/mL 05/06/2025 12:20 PM EDT [facility] ([facility]) EER Peth See Note 05/06/2025 12:20 PM EDT [facility] ([facility]) PEth Interpretation See Comment 05/06/2025 12:20 PM EDT [facility] ([facility]) Blood Venous blood specimen / Unknown Venipuncture [...] well established. Authorized individuals can access the [employer] Enhanced Report with an [employer] Connect account using the following link. Your local lab can assist you in obtaining the patient report if you don't have a Connect account. [email or web address] Phosphatidylethanol (PEth) is a group of phospholipids [...] developed and its performance characteristics determined by [facility] [facility]. It has not been cleared or approved by the U.S. Food and Drug Administration. This test was performed in a CLIA-certified laboratory and is intended for clinical purposes. Performed By: [facility] [facility] [address] [place] [address] Community Development Director: David Marx MD, PhD CLIA Number: [id number] Ang Will MD LAB REF LAB BLOOD AND FLU ID ORD Final Result [facility] ([facility]) [address] [id number] * (ABNORMAL) Creatine Kinase, Total, Plasma (05/04/2025 4:33 AM EDT) Creatine Kinase, Plasma 33(L) 49 - 320 U/L 05/04/2025 5:27 AM EDT [facility] Blood Venous blood specimen / Unknown Venipuncture / Unknown 05/04/2025 4:33 AM EDT 05/04/2025 4:44 AM EDT us Ang Will MD LAB BLOOD ORDERABLES Courtney l Result [facility] [address] [place] [address] * (ABNORMAL) CBC W/O Differential (05/04/2025 4:33 AM EDT) Only the most recent of3 resultswithin the time period is included. WBC Count 4.71 3.70 - 10.30 10*3/uL LAB HEMATOLOGY METHOD 05/04/2025 5:18 AM EDT [facility] RBC Count 4.16(L) 4.60 - 6.10 10*6/uL LAB HEMATOLOGY METHOD 05/04/2025 5:18 AM EDT [facility] HGB 13.1(L) 13.7 - 17.5 g/dL LAB HEMATOLOGY METHOD 05/04/2025 5:18 AM EDT [facility] HCT 38.4(L) 40.0 - 51.0 % LAB HEMATOLOGY METHOD 05/04/2025 5:18 AM EDT [facility] Platelet Count 117(L) 155 - 369 10*3/uL LAB HEMATOLOGY METHOD 05/04/2025 5:18 AM EDT [facility] MCV 92 79 - 98 fL LAB HEMATOLOGY METHOD 05/04/2025 5:18 AM EDT [facility] MCH 31.5 26.0 - 32.0 pg LAB HEMATOLOGY METHOD 05/04/2025 5:18 AM EDT [facility] MCHC 34.1 30.7 - 35.5 g/dL LAB HEMATOLOGY METHOD 05/04/2025 5:18 AM EDT [facility] RDW 15.5(H) 11.5 - 14.5 % LAB HEMATOLOGY METHOD 05/04/2025 5:18 AM EDT [facility] MPV 11.5 8.8 - 12.5 fL LAB HEMATOLOGY METHOD 05/04/2025 5:18 AM EDT [facility] nRBC 0.0 <=0.0 per 100 WBCs LAB HEMATOLOGY METHOD 05/04/2025 5:18 AM EDT [facility] Blood Venous blood specimen / Unknown Venipuncture / Unknown 05/04/2025 4:33 AM EDT 05/04/2025 4:45 AM EDT Ang Will MD LAB BLOOD ORDERABLES Courtney ferrari Result [facility] [address] [place] [address] * (ABNORMAL) Comprehensive metabolic panel (05/04/2025 4:33 AM EDT) Only the most recent of7 resultswithin the time period is included. Glucose, Plasma 92 74 - 99 mg/dL 05/04/2025 5:27 AM EDT [facility] BUN, Plasma 11 8 - 23 mg/dL 05/04/2025 5:27 AM EDT [facility] Creatinine, Plasma 0.81 0.70 - 1.20 mg/dL 05/04/2025 5:27 AM EDT [facility] BUN/Creatinine Ratio 14 05/04/2025 5:27 AM EDT [facility] Sodium, Plasma 138 136 - 145 mmol/L 05/04/2025 5:27 AM EDT [facility] Potassium, Plasma 3.3(L) 3.6 - 4.9 mmol/L 05/04/2025 5:27 AM EDT [facility] Chloride, Plasma 106 97 - 107 mmol/L 05/04/2025 5:27 AM EDT [facility] CO2, Plasma 20(L) 22 - 29 mmol/L 05/04/2025 5:27 AM EDT [facility] Anion Gap 12 6 - 16 mmol/L 05/04/2025 5:27 AM EDT [facility] Total Calcium, Plasma 8.5(L) 8.9 - 10.2 mg/dL 05/04/2025 5:27 AM EDT [facility] Total Protein 6.4 6.3 - 7.9 g/dL 05/04/2025 5:27 AM EDT [facility] Albumin, Plasma 2.6(L) 3.5 - 5.2 g/dL 05/04/2025 5:27 AM EDT [facility] AST, Plasma 140(H) 10 - 50 U/L 05/04/2025 5:27 AM EDT [facility] ALT, Plasma 21 10 - 50 U/L 05/04/2025 5:27 AM EDT [facility] Alkaline Phosphatase, Plasma 186(H) 40 - 115 U/L 05/04/2025 5:27 AM EDT [facility] Total Bilirubin, Plasma 2.1(H) 0.2 - 1.1 mg/dL 05/04/2025 5:27 AM EDT [facility] eGFRcr 96.6 mL/min/1.7 3m*2 05/04/2025 5:27 AM EDT [facility] Comment:Reported eGFRcr in m L/min/1.73m2 is based the CKD-EPI 2020 equation that does not use a race coefficient. Blood Venous blood specimen / Unknown Venipuncture / Unknown 05/04/2025 4:33 AM EDT 05/04/2025 4:44 AM EDT Ang Will MD LAB BLOOD ORDERABLES Courtney l Result Performing Organization Address City/[facility]/ZIP Co de Phone Number [facility] [address] [place] [address] * (ABNORMAL) Bilirubin, direct (05/02/2025 1:42 PM EDT) Only the most recent of2 resultswithin the time period is included. Conjugated Bilirubin, Plasma 0.7(H) <=0.3 mg/dL 05/02/2025 2:51 PM EDT [facility] Blood Venous blood specimen / Unknown Venipuncture / Unknown 05/02/2025 1:42 PM EDT 05/02/2025 2:10 PM EDT Ang Will MD LAB BLOOD ORDERABLES Courtney l Result [facility] [address] [place] [address] * (ABNORMAL) Lactate, venous (05/02/2025 2:07 AM EDT) Only the most recent of3 resultswithin the time period is included. Lactate, Venous, Whole Blood 3.0(H) 0.5 - 2.2 mmol/L LAB HEMATOLOGY METHOD 05/02/2025 2:21 AM EDT [facility] Blood Venous blood specimen / Unknown Venipuncture / Unknown 05/02/2025 2:07 AM EDT 05/02/2025 2:19 AM EDT us [employer] LINE CREW SUPERVISOR LAB BLOOD ORDERABLES Final Re sult Performing Organization Address City/[facility]/ZIP Co de Phone Number [facility] [address] [place] [address] * (ABNORMAL) Prothrombin Time/INR (05/02/2025 2:07 AM EDT) Only the most recent of5 resultswithin the time period is included. Prothrombin Time 14.5(H) 12.0 - 14.3 sec LAB COAGULATION METHOD 05/02/2025 2:44 AM EDT [facility] INR 1.1 0.9 - 1.1 LAB COAGULATION METHOD 05/02/2025 2:44 AM EDT [facility] Blood Venous blood specimen / Unknown Venipuncture / Unknown 05/02/2025 2:07 AM EDT 05/02/2025 2:20 AM EDT Narrative [facility] - 05/02/2025 2:44 AM EDT [...] NV INR 2.5 to 3.5 us Lexi Expan LINE CREW SUPERVISOR LAB BLOOD ORDERABLES Final Re sult Performing Organization Address City/[facility]/ZIP Co de Phone Number [facility] [address] [place] [address] * (ABNORMAL) CBC and differential (05/02/2025 2:07 AM EDT) Only the most recent of4 resultswithin the time period is included. WBC Count 6.14 3.70 - 10.30 10*3/uL LAB HEMATOLOGY METHOD 05/02/2025 2:31 AM EDT [facility] RBC Count 4.15(L) 4.60 - 6.10 10*6/uL LAB HEMATOLOGY METHOD 05/02/2025 2:31 AM EDT [facility] HGB 13.3(L) 13.7 - 17.5 g/dL LAB HEMATOLOGY METHOD 05/02/2025 2:31 AM EDT [facility] HCT 39.3(L) 40.0 - 51.0 % LAB HEMATOLOGY METHOD 05/02/2025 2:31 AM EDT [facility] Platelet Count 126(L) 155 - 369 10*3/uL LAB HEMATOLOGY METHOD 05/02/2025 2:31 AM EDT [facility] MCV 95 79 - 98 fL LAB HEMATOLOGY METHOD 05/02/2025 2:31 AM EDT [facility] MCH 32.0 26.0 - 32.0 pg LAB HEMATOLOGY METHOD 05/02/2025 2:31 AM EDT [facility] MCHC 33.8 30.7 - 35.5 g/dL LAB HEMATOLOGY METHOD 05/02/2025 2:31 AM EDT [facility] RDW 15.1(H) 11.5 - 14.5 % LAB HEMATOLOGY METHOD 05/02/2025 2:31 AM EDT [facility] MPV 11.9 8.8 - 12.5 fL LAB HEMATOLOGY METHOD 05/02/2025 2:31 AM EDT [facility] nRBC 0.0 <=0.0 per 100 WBCs LAB HEMATOLOGY METHOD 05/02/2025 2:31 AM EDT [facility] Differential Type Automated LAB HEMATOLOGY METHOD 05/02/2025 2:31 AM EDT [facility] Neutrophils % 65 % LAB HEMATOLOGY METHOD 05/02/2025 2:31 AM EDT [facility] Lymphocytes % 20 % LAB HEMATOLOGY METHOD 05/02/2025 2:31 AM EDT [facility] Monocytes % 13 % LAB HEMATOLOGY METHOD 05/02/2025 2:31 AM EDT [facility] Eosinophils % 1 % LAB HEMATOLOGY METHOD 05/02/2025 2:31 AM EDT [facility] Basophils % 0 % LAB HEMATOLOGY METHOD 05/02/2025 2:31 AM EDT [facility] Immature Granulocytes % 1 % LAB HEMATOLOGY METHOD 05/02/2025 2:31 AM EDT [facility] Neutrophils Absolute 4.00 1.60 - 6.10 10*3/uL LAB HEMATOLOGY METHOD 05/02/2025 2:31 AM EDT [facility] Lymphocytes Absolute 1.22 1.20 - 3.90 10*3/uL LAB HEMATOLOGY METHOD 05/02/2025 2:31 AM EDT [facility] Monocytes Absolute 0.79 0.30 - 0.90 10*3/uL LAB HEMATOLOGY METHOD 05/02/2025 2:31 AM EDT [facility] Eosinophils Absolute 0.07 0.00 - 0.50 10*3/uL LAB HEMATOLOGY METHOD 05/02/2025 2:31 AM EDT [facility] Basophils Absolute 0.02 0.00 - 0.10 10*3/uL LAB HEMATOLOGY METHOD 05/02/2025 2:31 AM EDT [facility] Immature Granulocytes Absolute 0.04 0.00 - 0.06 10*3/uL LAB HEMATOLOGY METHOD 05/02/2025 2:31 AM EDT [facility] Blood Venous blood specimen / Unknown Venipuncture / Unknown 05/02/2025 2:07 AM EDT 05/02/2025 2:20 AM EDT Narrative [facility] - 05/02/2025 2:31 AM EDT Therapeutic decision making should be based on absolute values, rather than percentages. us Lexi Crane APRN LAB BLOOD ORDERABLES Final Re sult [facility] [address] [place] [address] * US Abdomen RUQ (05/01/2025 7:43 PM [...] Vanessa Reid MD on 05/01/2025 8:43 PM us Clotilde Saleh MD [facility] PROCEDURES Final Result * Type and screen (05/01/2025 5:54 PM EDT) ABO/Rh A Positive 05/01/2025 5:39 PM EDT BLOOD BANK Antibody Screen Negative 05/01/2025 5:39 PM EDT BLOOD BANK Specimen Expiration 05/04/2025 23:59 05/01/2025 5:39 PM EDT BLOOD BANK Blood Venous blood specimen / Unknown Venipuncture / Unknown 05/01/2025 5:54 PM EDT 05/01/2025 5:58 PM EDT Clotilde Saleh MD LAB BLOOD BANK TEST ORDERABLES Final Result Performing Organization Address [facility]/ZIP Co de Phone Number BLOOD BANK [address] [place] [address], * Magnesium (05/01/2025 5:54 PM EDT) Pathologist [facility] Magnesium, Plasma 1.9 1.9 - 2.4 mg/dL 05/01/2025 6:22 PM EDT [facility] Blood Venous blood specimen / Unknown Venipuncture / Unknown 05/01/2025 5:54 PM EDT 05/01/2025 5:58 PM EDT us Clotilde Saleh MD LAB BLOOD ORDERABLES Final Resu lt [facility] [address] [place] [address] * (ABNORMAL) Lipase (05/01/2025 5:54 PM EDT) Only the most recent of2 resultswithin the time period is included. Lipase, Plasma 11(L) 19 - 63 U/L 05/01/2025 6:22 PM EDT [facility] Blood Venous blood specimen / Unknown Venipuncture / Unknown 05/01/2025 5:54 PM EDT 05/01/2025 5:58 PM EDT Result [facility] Clotilde Saleh MD LAB BLOOD ORDERABLES Final Resu lt [facility] [address] [place] [address] * EKG now - STAT (adult) (05/01/2025 5:43 PM EDT) Only the most recent of2 resultswithin the time period is included. EKG DIAGNOSIS CLASS Abnormal MUSE ECG Ventricular Rate 70 BPM MUSE ECG Atrial Rate 70 BPM MUSE ECG IA Interval 138 ms MUSE ECG QRSD Interval 86 ms MUSE ECG QT Interval 414 ms MUSE ECG QTC Interval 447 ms MUSE ECG P [place] 50 degrees MUSE ECG R [place] -53 degrees MUSE ECG T Wave [place] 43 degrees MUSE ECG Diagnosis Normal sinus rhythm with sinus arrhythmia MUSE ECG Diagnosis Left axis deviation MUSE ECG Diagnosis Anterior infarct , age undetermined MUSE ECG Diagnosis T wave abnormality, consider lateral ischemia MUSE ECG Diagnosis MUSE ECG Diagnosis MUSE ECG Diagnosis Confirmed by Jordyn Pompa ([id number]) on 05/02/2025 3:24:55 PM MUSE ECG 05/01/2025 5:43 PM EDT 05/02/2025 3:24 PM EDT Result [facility] Clotilde Saleh MD ECG ORDERABLES Final Result Performing Organization Address City/[facility]/ZIP Co de Phone Number MUSE ECG * CT OUTSIDE IMAGES (05/01/2025 12:38 PM EDT) Only the most recent of2 resultswithin the time period is included. Anatomical Region Laterality Modality Computed Tomogra phy 05/01/2025 12:3 8 PM EDT Result [facility] Chris Lazo MD IMG CT PROCEDURES Final Result * Troponin T, High Sensitivity, 2 Hour, Plasma (03/20/2025 10:54 PM EDT) Troponin T, High Sensitivity, 2 Hour 10 <19 ng/L 03/20/2025 11:31 PM EDT [facility] Blood Venous blood specimen / Unknown Venipuncture / Unknown 03/20/2025 10:54 PM EDT 03/20/2025 11:04 PM EDT Leelee Tripathi MD LAB BLOOD ORDERABLE S Final Result [facility] [address] [place] [address] * ED HIV 1/2 Antibody/Antigen Screen w/Reflex to HIV 1/2 Differentiation (03/20/2025 6:51 PM EDT) [facility] HIV 1 & 2 Antibody/Antigen Screen Non Reactive Non Reactive 03/20/2025 8:05 PM EDT [facility] Comment:Screening for HIV 1 & 2 antibodies, and P24 antigen is NONREACTIVE. No confirmatory testing is required. Blood Venous blood specimen / Unknown Venipuncture / Unknown 03/20/2025 6:51 PM EDT 03/20/2025 7:09 PM EDT Result [facility] Dedra HURTADO LAB BLOOD ORDERABLES Courtney l Result Performing Organization Address City/[facility]/ZIP Co de Phone Number [facility] [address] [place] [address] * Troponin now and 120 min (03/20/2025 6:51 PM EDT) [facility] Troponin T, High Sensitivity, 0 Hour 9 <19 ng/L 03/20/2025 7:35 PM EDT [facility] Blood Venous blood specimen / Unknown Venipuncture / Unknown 03/20/2025 6:51 PM EDT 03/20/2025 7:09 PM EDT Result [facility] Dedra Smithmen PA LAB BLOOD ORDERABLES Courtney l Result Performing Organization Address City/[facility]/ZIP Co de Phone Number [facility] [address] [place] [address] * Hepatitis C Antibody - ED (03/20/2025 6:51 PM EDT) Hepatitis C Antibody Negative Negative 03/20/2025 8:01 PM EDT [facility] Blood Venous blood specimen / Unknown Venipuncture / Unknown 03/20/2025 6:51 PM EDT 03/20/2025 7:09 PM EDT Dedra A RebsaThe Extraordinaries PA LAB BLOOD ORDERABLES Courtney l Result Performing Organization Address [facility] Co de Phone Number HEALTHCARE LAB [address] [place] [address] * APTT (03/20/2025 6:51 PM EDT) aPTT 31 25 - 35 sec 03/20/2025 7:25 PM EDT HEALTHCARE LAB Blood Venous blood specimen / Unknown Venipuncture / Unknown 03/20/2025 6:51 PM EDT 03/20/2025 7:08 PM EDT Dedra A Rebsamen PA LAB BLOOD ORDERABLES Courtney l Result Performing Organization Address [facility] de Phone Number HEALTHCARE LAB [address] [place] [address] * C-Reactive protein (03/20/2025 6:51 PM EDT) CRP, Plasma 5.2 <=8.0 mg/L 03/20/2025 7:35 PM EDT HEALTHCARE LAB Blood Venous blood specimen / Unknown Venipuncture / Unknown 03/20/2025 6:51 PM EDT 03/20/2025 7:09 PM EDT Narrative [facility] - 03/20/2025 7:35 PM EDT This CRP test is appropriate for assessment of infection, systemic inflammation and/or tissue injury. To assess cardiovascular disease risk order high sensitivity CRP (CRPH). us Dedra A Rebsamen PA LAB BLOOD ORDERABLES Courtney l Result Performing Organization Address City/[facility] Co de Phone Number [facility] [address] [place] [address] * CT THORACIC OUTSIDE IMAGES (03/20/2025 1:13 PM EDT) Anatomical Region Laterality Modality Computed Tomogra phy 03/20/2025 1:13 PM EDT us External Provider IMG CT PROCEDURES Final Result * XR OUTSIDE IMAGES (03/20/2025 12:54 PM EDT) Anatomical Region Laterality Modality Radiographic Winnie ging 03/20/2025 12:5 4 PM EDT us External Provider IMG XR PROCEDURES Final Result * CT CHEST WO [...] 1,098.0(H) <10.0 ng/mL 03/14/2025 10:22 AM EDT [facility] Blood Venous blood specimen / Unknown Venipuncture / Unknown 03/14/2025 8:38 AM EDT 03/14/2025 9:03 AM EDT Narrative [facility] - 03/14/2025 10:22 AM EDT Performed by Ricky electrochemiluminescent immunoassay which is traceable to the 1st AFP IRP WHO Reference standard 72/255. Results obtained with different test methods or kits cannot be used interchangeably. Peter Do MD LAB BLOOD ORDERABLES Final Result [facility] [address] [place] [address] * Cancer Antigen, GI (CA 19.9) (03/14/2025 8:38 AM EDT) CA 19.9 26.5 <36 U/mL 03/14/2025 10:22 AM EDT [facility] Blood Venous blood specimen / Unknown Venipuncture / Unknown 03/14/2025 8:38 AM EDT 03/14/2025 9:03 AM EDT Narrative [facility] - 03/14/2025 10:22 AM EDT Performed by Ricky electrochemiluminescent immunoassay. Results obtained with different test methods or kits cannot be used interchangeably. Peter Do MD LAB BLOOD ORDERABLES Final Result Performing Organization Address City/[facility]/[place] [address] * (ABNORMAL) CEA, Serum (03/14/2025 8:38 AM EDT) CEA, Serum 5.2(H) <4.0 ng/mL 03/14/2025 10:22 AM EDT [facility] Blood Venous blood specimen / Unknown Venipuncture / Unknown 03/14/2025 8:38 AM EDT 03/14/2025 9:03 AM EDT Narrative [facility] - 03/14/2025 10:22 AM EDT Normal range for smokers: < 5.5 ng/ml Normal range for non-smokers: <=4.0 ng/ml Performed by Ricky electrochemiluminescent immunoassay. Results obtained with different test methods or kits cannot be used interchangeably. Peter Do MD LAB [place] [address] * CT Abdomen w and wo IV [...] are consistent with and integrated into the [place] [employer] the [employer] of Liver Diseases [...] are consistent with and integrated into the [place] Associationfor the Study of Liver Diseases (AASLD) [...] MD on 02/09/2025 3:29 PM us Isabella J Stump LINE CREW SUPERVISOR IMG CT PROCEDURES Final Re sult from Last 3 Months Additional Health Concerns Infection Onset Date Last Indicated C. difficile Rule-Out 05/04/2025 05/04/2025 Insurance [place] MEDICARE Advance Directives * Full Code (Latest Code Status on File) Date Activated Date Inactivated Comments 05/01/2025 10:55 PM 05/05/2025 5:24 PM Question Answer Comments I have reviewed the capacity from the link above and, if needed, have updated to appropriate status: Yes * Full Code Date Activated Date Inactivated Comments 03/20/2025 7:46 PM 03/21/2025 8:56 PM Question Answer Comments I have reviewed the capacity from the link above and, if needed, have updated to appropriate status: Yes Care Teams Potato Bucker Relationship Specialty Start Date End Date Pcp, No [address] [place] [address] PCP - General Family Medicine 03/20/25 Isabella Saucedo APRN 1210 [facility] [address] [place], [place] [id number] Referring Physician 02/26/25 Jeannie Mcmillan, RN [facility] [address] [place] [address] Registered Nurse Transplant Surgery 03/08/25 [place] [address] Registered Nurse Transplant Surgery 03/08/25 Rodney Gonzáles MD 1210 [facility] [address] [place] [address] Medical Oncologist 04/10/25
--- OUTSIDE RECORDS SUMMARY | 2025-05-08 11:52 | XMS_ITS | Encounter Summary ---
Author Organization Healthcare Address [address] [place] [address] Care Team Providers Care Assembler Rubber Footwear Name Role Phone Isabella Saucedo APRN Unavailable [phone] Jeannie Mcmillan RN Unavailable [phone] Ebony Shoemaker Unavailable [phone] Pcp, No Primary Care Provider Unavailabl e Rodney Gonzáles MD Unavailable [phone] Reason for Referral * Consultation (Routine) - Authorized Specialty Diagnoses / Procedures Referred By Contarjun t Referred To Contact Hematology and Oncology Diagnoses Elevated alpha fetoprotein Liver tumor Isabella Saucedo APRN [address] [place] [address] Phone: tel: fax: Referral ID Status Reason Start Date Expiration Date Visits Requested Visits Authorized [id number] Authorized Specialty Services Required 02/20/2025 08/22/2026 1 1 Encounter Details Date Type Department Care Team (Late st Contact Info) Description 02/19/2025 Community [facility] [address] [place] [address] Isabella Saucedo APRN [address] [place] [address] [place] [address] Elevated alpha fetoprotein (Primary Dx); Liver tumor [...] of digestive system documented in this encounter Additional Health Concerns Infection Onset Date Last Indicated Resolved Time C. difficile Rule-Out 05/04/2025 05/04/2025 documented as of this encounter Care Teams Assembler Rubber Footwear Relationship Specialty Start Date End Date Pcp, [place] [phone] PCP - General Family Medicine 03/20/25 Isabella Saucedo APRN 1210 [facility] [address] [place], [place] [address] Referring Physician 02/26/25 Jeannie Mcmillan, RN [facility] [address] [place] [address] Registered Nurse Transplant Surgery 03/08/25 [place] [address] Registered Nurse Transplant Surgery 03/08/25 Rodney Gonzáles MD [address] [place], [place] [address] Medical Oncologist 04/10/25 documented as of this encounter
--- OUTSIDE RECORDS SUMMARY | 2025-05-08 11:52 | XMS_ITS | Encounter Summary ---
Author Organization Healthcare Address [address] [place] [address] Care Team Providers Care Reliability Specialist Name Role Phone Isabella Saucedo Phong VIDEOTAPE OPERATOR Unavailable [phone] Jeannie Mcmillan RN Unavailable [phone] Ebony Shoemaker Unavailable [phone] Pcp, No Primary Care Provider Unavailabl e Rodney Gonzáles MD Unavailable [phone] Encounter Details Date Type Department Care Team (Late st Contact Info) Description 01/06/2024 Orders Only External Location [address] [place] [address] Provider, External Social History Tobacco Use Types [...] documented as of this encounter Care Teams Reliability Specialist Relationship Specialty Start Date End Date Pcp, No [address] [place] [address] PCP - General Family Medicine 03/20/25 Isabella Saucedo APRN 1210 [facility] [address] [place] [address] Referring Physician 02/26/25 Jeannie Mcmillan, RN [facility] [address] [place] [address] Registered Nurse Transplant Surgery 03/08/25 Ebony Shoemaker [place] [id number] Registered Nurse Transplant Surgery 03/08/25 Rodney Gonzáles MD 1210 [facility] [address] [place], [place] [id number] Medical Oncologist 04/10/25 documented as of this encounter
--- OUTSIDE RECORDS SUMMARY | 2025-05-08 11:52 | XMS_ITS | Encounter Summary ---
Author Organization Healthcare Address [address] [place] [address] Care Team Providers Care Wedding Makeup Artist Name Role Phone Isabella Saucedo Phong FIRESTOP/CONTAINMENT WORKER Unavailable [phone] Jeannie Mcmillan RN Unavailable [phone] Ebony Shoemaker Unavailable [phone] Pcp, No Primary Care Provider Unavailabl e Rodney Gonzáles MD Unavailable [phone] Encounter Details Date Type Department Care Team (Late st Contact Info) Description 01/04/2025 Orders Only External Location [address] [place] [address] Provider, External Social History Tobacco Use Types [...] documented as of this encounter Care Teams Wedding Makeup Artist Relationship Specialty Start Date End Date Pcp, No [address] [place] [address] PCP - General Family Medicine 03/20/25 Isabella Saucedo APRN 1210 [facility] [address] [place] [address] Referring Physician 02/26/25 Jeannie Mcmillan, RN [facility] [facility] 800 [place] [id number] Registered Nurse Transplant Surgery 03/08/25 Ebony Shoemaker [place] [id number] Registered Nurse Transplant Surgery 03/08/25 oRdney Gonzáles MD [address] [place] [address] [place] [address] Medical Oncologist 04/10/25 documented as of this encounter
--- OUTSIDE RECORDS SUMMARY | 2025-05-08 11:52 | XMS_ITS | Encounter Summary ---
Author Organization Healthcare Address [address] [place] [address] Care Team Providers Care Automatic Hemmer Name Role Phone Isabella Saucedo Phong DYER ASSISTANT Unavailable [phone] Jeannie Mcmillan RN Unavailable [phone] Ebony Shoemaker Unavailable [phone] Pcp, No Primary Care Provider Unavailabl e Rodney Gonzáles MD Unavailable [phone] Encounter Details Date Type Department Care Team (Late st Contact Info) Description 01/12/2025 Orders Only External Location 800 [place] [address] Provider, External Social History Tobacco Use Types [...] documented as of this encounter Care Teams Automatic Hemmer Relationship Specialty Start Date End Date Pcp, No [address] [place] [address] PCP - General Family Medicine 03/20/25 Isabella Saucedo APRN 1210 [facility] [address] [place] [address] Referring Physician 02/26/25 Jeannie Mmcillan, RN [facility] [facility] 800 [place] [address] Registered Nurse Transplant Surgery 03/08/25 [place] [address] Registered Nurse Transplant Surgery 03/08/25 Rodney Gonzáles MD 1210 [facility] [address] [place] [address] Medical Oncologist 04/10/25 documented as of this encounter
--- OUTSIDE RECORDS SUMMARY | 2025-05-08 11:52 | XMS_ITS | Encounter Summary ---
Author Organization Healthcare Address [address] [place] [address] Care Team Providers Care Cnc Machine Operator Name Role Phone Isabella Saucedo Phong ASSOCIATE DEAN OF WOMEN Unavailable [phone] Jeannie Mcmillan RN Unavailable [phone] Ebony Shoemaker Unavailable [phone] Pcp, No Primary Care Provider Unavailabl e Rodney Gonzáles MD Unavailable [phone] Encounter Details Date Type Department Care Team (Late st Contact Info) Description 01/14/2024 Orders Only External Location 800 [place] [address] Provider, External Social History Tobacco Use Types [...] documented as of this encounter Care Teams Cnc Machine Operator Relationship Specialty Start Date End Date Pcp, No [address] [place] [address] PCP - General Family Medicine 03/20/25 Isabella Saucedo APRN 1210 [facility] [address] [place] [address] Referring Physician 02/26/25 Jeannie Mcmillan, RN [facility] [facility] 800 [place] [address] Registered Nurse Transplant Surgery 03/08/25 [place] [address] Registered Nurse Transplant Surgery 03/08/25 Rodney Gonzáles MD [address] [place] [address] [place] [address] Medical Oncologist 04/10/25 documented as of this encounter
--- OUTSIDE RECORDS SUMMARY | 2025-05-08 11:52 | XMS_ITS | Encounter Summary ---
Author Organization Healthcare Address [address] [place] [address] Care Team Providers Care Taxation Agent Name Role Phone Isabella Saucedo PRICING MANAGER Unavailable [phone] Jeannie Mcmillan RN Unavailable [phone] Ebony Shoemaker Unavailable [phone] Pcp, No Primary Care Provider Unavailabl e Rodney Gonzáles MD Unavailable [phone] Reason for Referral * Transplant (Routine) [...] present (CMS/HCC) Isabella Saucedo APRN [address] [place] [employer] [address] [place] [address] Phone: tel: fax: Referral ID Status Reason Start Date Expiration Date Visits Requested Visits Authorized [id number] Authorized Specialty Services Required 02/26/[phone] Encounter Details Date Type Department Care Team (Late st Contact Info) Description 02/26/2025 Community [facility] Community Practice [address] [place] [address] Isabella Saucedo APRN [address] [place] [employer] [address] [place] [address] Invasion of liver, gallbladder, pancreas, ipsilateral branch [...] documented as of this encounter Care Teams Taxation Agent Relationship Specialty Start Date End Date Pcp, No [address] [place] [address] PCP - General Family Medicine 03/20/25 Isabella Saucedo APRN [address] [place] [address] [address] [place] [address] Referring Physician 02/26/25 Jeannie Mcmillan RN [facility] 800 [place] [address] Registered Nurse Transplant Surgery 03/08/25 [place] [address] Registered Nurse Transplant Surgery 03/08/25 Rodney Gonzáles MD 1210 [facility] [address] [place] [address] Medical Oncologist 04/10/25 documented as of this encounter
--- OUTSIDE RECORDS SUMMARY | 2025-05-08 11:52 | XMS_ITS | Encounter Summary ---
Author Organization Healthcare Address [address] [place] [address] Care Team Providers Care Marketing Financial Analyst Name Role Phone Isabella Saucedo Phong RN REHAB Unavailable [phone] Jeannie Mcmillan RN Unavailable [phone] Ebony Shoemaker Unavailable [phone] Pcp, No Primary Care Provider Unavailabl e Rodney Gonzáles MD Unavailable [phone] Encounter Details Date Type Department Care Team (Late st Contact Info) Description 12/06/2024 Orders Only External Location 800 [place] [address] Provider, External Social History Tobacco Use Types [...] documented as of this encounter Care Teams Marketing Financial Analyst Relationship Specialty Start Date End Date Pcp, [address] [address] PCP - General Family Medicine 03/20/25 Isabella Saucedo APRN 1210 [facility] [address] [place] [address] Referring Physician 02/26/25 Jeannie Mcmillan, RN [facility] [facility] 800 [place] [address] Registered Nurse Transplant Surgery 03/08/25 [place] [address] Registered Nurse Transplant Surgery 03/08/25 Rodney Gonzáles MD 1210 [facility] [address] [place] [address] Medical Oncologist 04/10/25 documented as of this encounter
--- OUTSIDE RECORDS SUMMARY | 2025-05-08 11:52 | XMS_ITS | Encounter Summary ---
Author Organization [facility] Address [address] [place] [address] Care Team Providers Care College And Career Counselor Name Role Phone Isabella Saucedo SOCIAL SCIENTIST Unavailable [phone] Jeannie Mcmillan RN Unavailable [phone] Ebony Shoemaker Unavailable [phone] Encounter Details Date Type Department Care [...] on filedocumented in this encounter Care Teams College And Career Counselor Relationship Specialty Start Date End Date Isabella Saucedo APRN [address] [place] [address] Referring Physician 02/26/25 Jeannie Mcmillan, RN [facility] 800 [place] [address] Registered Nurse Transplant Surgery 03/08/25 [place] [address] Registered Nurse Transplant Surgery 03/08/25 documented as of this encounter
--- OUTSIDE RECORDS SUMMARY | 2025-05-08 11:52 | XMS_ITS | Encounter Summary ---
Author Organization Healthcare Address [address] [place] [address] Care Team Providers Care Practice Representative Name Role Phone Isabella Saucedo Phong BABBITT SPINNER Unavailable [phone] Jeannie Mcmillan RN Unavailable [phone] Ebony Shoemaker Unavailable [phone] Pcp, No Primary Care Provider Unavailabl e Rodney Gonzáles MD Unavailable [phone] Encounter Details Date Type Department Care Team (Late st Contact Info) Description 12/07/2024 Orders Only External Location 800 [place] [address] Provider, External Social History Tobacco Use Types [...] documented as of this encounter Care Teams Practice Representative Relationship Specialty Start Date End Date Pcp, [address] [address] PCP - General Family Medicine 03/20/25 Isabella Saucedo APRN 1210 [facility] [address] [place] [address] Referring Physician 02/26/25 Jeannie Mcmillan, RN [facility] 800 [place] [address] Registered Nurse Transplant Surgery 03/08/25 [place] [address] Registered Nurse Transplant Surgery 03/08/25 Rodney Gonzáles MD 1210 [facility] [address] [place] [address] Medical Oncologist 04/10/25 documented as of this encounter
--- OUTSIDE RECORDS SUMMARY | 2025-05-08 11:52 | XMS_ITS | Encounter Summary ---
Author Organization Healthcare Address [address] [place] [address] Care Team Providers Care Occasional Babysitter Name Role Phone Isabella Saucedo Phong TRAFFIC ENUMERATOR Unavailable [phone] Jeannie Mcmillan RN Unavailable [phone] Ebony Shoemaker Unavailable [phone] Pcp, No Primary Care Provider Unavailabl e Rodney Gonzáles MD Unavailable [phone] Encounter Details Date Type Department Care Team (Latest Contact Info) Description 05/01/2025 Travel Social History Tobacco Use Types Packs/Day [...] the money to buy more. Never true 09/03/20 25 Within the past 12 months, t [...] living in a long term (including now)? No 05/02/2025 [facility] Utilities Answer Date Recorded In the past [...] Date of Assessment Author No Risk Indicated 05/01/2025 8:00 PM EDT Mary Hernandez RN * Question Answer Date of Assessment Author 1. Wish to be (Past 1 Month) No 025 8:00 PM EDT Mary Hernandez, RN 2. Non-Specific Active Suici heriberto Thoughts (Past 1 Month) No 05/01/2025 8:00 PM EDT Mary Hernandez, RN 6. Suicidal Behavior (Lifetime) No 8:00 PM EDT Mary Hernandez, RN documented as of this encounter Plan [...] documented as of this encounter Care Teams Occasional Babysitter Relationship Specialty Start Date End Date Pcp, [address] [address] PCP - General Family Medicine 03/20/25 Isabella Saucedo APRN 1210 [facility] [address] [place] [address] Referring Physician 02/26/25 Jeannie Mcmillan, RN [facility] [address] [place] [address] Registered Nurse Transplant Surgery 03/08/25 [place] [address] Registered Nurse Transplant Surgery 03/08/25 Rodney Gonzáles MD 1210 [facility] [address] [place] [address] Medical Oncologist 04/10/25 documented as of this encounter
--- OUTSIDE RECORDS SUMMARY | 2025-05-08 11:52 | XMS_ITS | Encounter Summary ---
Author Organization [facility] Address [address] [place] [address] Care Team Providers Care Correspondent Name Role Phone Isabella Saucedo Phong TOOLER Unavailable [phone] Jeannie Mcmillan RN Unavailable [phone] Ebony Shoemaker Unavailable [phone] Reason for Referral * Consultation (Routine) - Authorized Specialty Diagnoses / Procedures Referred By Contac t Referred To Contact Medical Oncology Diagnoses Elevated AFP Liver lesion Peter Do MD [address] [address] Phone: tel: fax: Referral ID Status Reason Start Date Expiration Date Visits Requested Visits Authorized [id number] Authorized Consult and Treat 03/16/2025 09/15/2026 1 1 Reason for Visit * Reason Comments Txp Surgical Follow-up Ernestina: Tumor Boar d Discussion 03/16/25 Encounter Details Date Type Department Care Team (Late st Contact Info) Description 03/16/2025 Telephone [facility] [address] [address] [place] [address] Txp Surgical Follow-up (Ernestina: Tumor [...] Dr. Gonzáles for local treatment. Dr. Jeanne Babrer will discuss Mr. Steward's case with Dr. [...] documented as of this encounter Care Teams Correspondent Relationship Specialty Start Date End Date Isabella Saucedo APRN 1210 [facility] [address] [place] [address] Referring Physician 02/26/25 Jeannie Mcmillan, RN [facility] [facility]RATION [address] [place] [address] Registered Nurse Transplant Surgery 03/08/25 [place] [address] Registered Nurse Transplant Surgery 03/08/25 documented as of this encounter
--- OUTSIDE RECORDS SUMMARY | 2025-05-08 11:52 | XMS_ITS | Encounter Summary ---
Author Organization Healthcare Address [address] [place] [address] Care Team Providers Care Regional Clinical Research Associate Name Role Phone Isabella Saucedo Phong FLUX PLANT OPERATOR Unavailable [phone] Jeannie Mcmillan RN Unavailable [phone] Ebony Shoemaker Unavailable [phone] Pcp, No Primary Care Provider Unavailabl e Rodney Gonzáles MD Unavailable [phone] Encounter Details Date Type Department Care Team (Late st Contact Info) Description 06/03/2022 Orders Only External Location 800 [place] [address] Provider, External Social History Tobacco Use Types [...] documented as of this encounter Care Teams Regional Clinical Research Associate Relationship Specialty Start Date End Date Pcp, No [address] [place] [address] PCP - General Family Medicine 03/20/25 Isabella Saucedo APRN 1210 [facility] [address] [place] [address] Referring Physician 02/26/25 Jeannie Mcmillan, RN [facility] [address] [place] [id number] Registered Nurse Transplant Surgery 03/08/25 Ebony Shoemaker [place] [id number] Registered Nurse Transplant Surgery 03/08/25 Rodney Gonzáles MD [address] [place] [address] [place] [address] Medical Oncologist 04/10/25 documented as of this encounter
--- OUTSIDE RECORDS SUMMARY | 2025-05-08 11:52 | XMS_ITS | Encounter Summary ---
Author Organization Healthcare Address [address] [place] [address] Care Team Providers Care Diamond Saw Operator Name Role Phone LewisBereniceIsabella J MOLECULAR TECHNOLOGIST Unavailable [phone] Jeannie Mcmillan RN Unavailable [phone] Ebony Shoemaker Unavailable [phone] Encounter Details Date Type Department Care [...] things Not at all 03/14/2025 9:07 AM IRAIST Shari Moseley Feeling down, depressed, or hopeless Not at all 03/14/2025 9:07 AM EDT Shari Moseley Patient Health Questionnaire -2 Score 0 03/14/2025 9:07 AM IRAIST Shari Moseley documented as of this encounter [...] documented as of this encounter Care Teams Diamond Saw Operator Relationship Specialty Start Date End Date Isabella Saucedo APRN 1210 [facility] [address] [place] [id number] Referring Physician 02/26/25 Jeannie Mcmillan, RN [facility] [address] [place] [address] Registered Nurse Transplant Surgery 03/08/25 [place] [address] Registered Nurse Transplant Surgery 03/08/25 documented as of this encounter
--- OUTSIDE RECORDS SUMMARY | 2025-05-08 11:52 | XMS_ITS | Encounter Summary ---
Author Organization Healthcare Address [address] [place] [address] Care Team Providers Care Superintendent Drilling Name Role Phone Isabella Saucedo Phong STOREPERSON Unavailable [phone] Jeannie Mcmillan RN Unavailable [phone] Ebony Shoemaker Unavailable [phone] Pcp, No Primary Care Provider Unavailabl e Rodney Gonzáles MD Unavailable [phone] Encounter Details Date Type Department Care Team (Latest Contact Info) Description 05/04/2025 Travel Social History Tobacco Use Types Packs/Day [...] any time in the past 12 m ont, were you homeless or living in a detention (including now)? No 05/02/2025 [facility] Utilities Answer Date Recorded In the past [...] documented as of this encounter Care Teams Superintendent Drilling Relationship Specialty Start Date End Date Pcp, No [address] [place] [address] PCP - General Family Medicine 03/20/25 Isabella Saucedo APRN [address] [place] [address] [place] [address] Referring Physician 02/26/25 Jeannie Mcmillan, RN [facility] [address] [place] [id number] Registered Nurse Transplant Surgery 03/08/25 [place] [address] Registered Nurse Transplant Surgery 03/08/25 Rodney Gonzáles MD [address] [place] [address] [place] [address] Medical Oncologist 04/10/25 documented as of this encounter
--- OUTSIDE RECORDS SUMMARY | 2025-05-08 11:52 | XMS_ITS | Encounter Summary ---
Author Organization Healthcare Address [address] [place] [address] Care Team Providers Care Commission Sales Associate Name Role Phone Isabella Saucedo Phong DELIVERY ASSOCIATE Unavailable [phone] Jeannie Mcmillan RN Unavailable [phone] Ebony Shoemaker Unavailable [phone] Pcp, No Primary Care Provider Unavailabl e Rodney Gonzáles MD Unavailable [phone] Encounter Details Date Type Department Care Team (Late st Contact Info) Description 01/12/2025 Orders Only External Location 800 [place] [address] Provider, External Social History Tobacco Use Types [...] documented as of this encounter Care Teams Commission Sales Associate Relationship Specialty Start Date End Date Pcp, 800 [place] [address] PCP - General Family Medicine 03/20/25 Isabella Saucedo APRN 1210 [facility] [address] [place] [address] Referring Physician 02/26/25 Jeannie Mcmillan, RN [facility] 800 [place] [address] Registered Nurse Transplant Surgery 03/08/25 [place] [address] Registered Nurse Transplant Surgery 03/08/25 Rodney Gonzáles MD 1210 [facility] [address] [place] [address] Medical Oncologist 04/10/25 documented as of this encounter
--- OUTSIDE RECORDS SUMMARY | 2025-05-08 11:52 | XMS_ITS | Encounter Summary ---
Author Organization Healthcare Address [address] [place] [address] Care Team Providers Care Steward/Stewardess Wine Name Role Phone Isabella Saucedo Phong CHIEF ENGINEER DRILLING AND RECOVERY Unavailable [phone] Jeannie Mcmillan RN Unavailable [phone] Ebony Shoemaker Unavailable [phone] Pcp, No Primary Care Provider Unavailabl e Rodney Gonzáles MD Unavailable [phone] Encounter Details Date Type Department Care Team (Late st Contact Info) Description 05/26/2022 Orders Only External Location 800 [place] [address] Provider, External Social History Tobacco Use Types [...] documented as of this encounter Care Teams Steward/Stewardess Wine Relationship Specialty Start Date End Date Pcp, No 800 [place] [address] PCP - General Family Medicine 03/20/25 Isabella Saucedo APRN 1210 [facility] [address] [place] [address] Referring Physician 02/26/25 Jenanie Mcmillan, RN [facility] 800 [place] [address] Registered Nurse Transplant Surgery 03/08/25 Ebony Shoemaker [place] [id number] Registered Nurse Transplant Surgery 03/08/25 Rodney Gonzáles MD 1210 [facility] [address] [place], [place] [address] Medical Oncologist 04/10/25 documented as of this encounter
--- OUTSIDE RECORDS SUMMARY | 2025-05-08 11:52 | XMS_ITS | Encounter Summary ---
Author Organization Healthcare Address [address] [place] [address] Care Team Providers Care Religious Studies Professor Name Role Phone Isabella Saucedo Phong PBX SUPERVISOR Unavailable [phone] Jeannie Mcmillan RN Unavailable [phone] Ebony Shoemaker Unavailable [phone] Pcp, No Primary Care Provider Unavailabl e Rodney Gonzáles MD Unavailable [phone] Encounter Details Date Type Department Care Team (Late st Contact Info) Description 11/15/2024 Orders Only External Location 800 [place] [address] Provider, External Social History Tobacco Use Types [...] documented as of this encounter Care Teams Religious Studies Professor Relationship Specialty Start Date End Date Pcp, No 800 [place] [address] PCP - General Family Medicine 03/20/25 Isabella Saucedo APRN 1210 [facility] [address] [place] [address] Referring Physician 02/26/25 Jeannie Mcmillan, RN [facility] 800 [place] [address] Registered Nurse Transplant Surgery 03/08/25 Ebony Shoemaker [place] [id number] Registered Nurse Transplant Surgery 03/08/25 Rodney Gonzáles MD 1210 [facility] [address] [place], [place] [id number] Medical Oncologist 04/10/25 documented as of this encounter
--- OUTSIDE RECORDS SUMMARY | 2025-05-08 11:52 | XMS_ITS | Encounter Summary ---
Author Organization Healthcare Address [address] [place] [address] Care Team Providers Care Cad Design Engineer Name Role Phone Isabella Saucedo Phong CEO & FOUNDER Unavailable [phone] Jeannie Mcmillan RN Unavailable [phone] Ebony Shoemaker Unavailable [phone] Pcp, No Primary Care Provider Unavailabl e Rodney Gonzáles MD Unavailable [phone] Encounter Details Date Type Department Care Team (Late st Contact Info) Description 11/22/2024 Orders Only External Location 800 [place] [address] Provider, External Social History Tobacco Use Types [...] documented as of this encounter Care Teams Cad Design Engineer Relationship Specialty Start Date End Date Pcp, [address] [address] PCP - General Family Medicine 03/20/25 Isabella Saucedo APRN 1210 [facility] [address] [place] [address] Referring Physician 02/26/25 Jeannie Mcmillan, RN [facility] 800 [place] [address] Registered Nurse Transplant Surgery 03/08/25 [place] [address] Registered Nurse Transplant Surgery 03/08/25 Rodney Gonzáles MD 1210 [facility] [address] [place] [address] Medical Oncologist 04/10/25 documented as of this encounter
--- OUTSIDE RECORDS SUMMARY | 2025-05-08 11:52 | XMS_ITS | Encounter Summary ---
Author Organization Healthcare Address [address] [place] [address] Care Team Providers Care Quality Rn Name Role Phone Isabella Saucedo Phong TALENT ACQUISITION OPERATIONS MANAGER Unavailable [phone] Jeannie Mcmillan RN Unavailable [phone] Ebony Shoemaker Unavailable [phone] Pcp, No Primary Care Provider Unavailabl e Rodney Gonzáles MD Unavailable [phone] Encounter Details Date Type Department Care Team (Late st Contact Info) Description 05/26/2022 Orders Only External Location 800 [place] [address] Provider, External Social History Tobacco Use Types [...] as of this encounter Care Teams Quality Rn Relationship Specialty Start Date End Date Pcp, No 800 [place] [address] PCP - General Family Medicine 03/20/25 Isabella Saucedo APRN 1210 [facility] [address] [place] [address] Referring Physician 02/26/25 Jeannie Mcmillan, RN [facility] [address] [place] [id number] Registered Nurse Transplant Surgery 03/08/25 Ebony Shoemaker [place] [id number] Registered Nurse Transplant Surgery 03/08/25 Rodney Gonzáles MD 1210 [facility] [address] [place] [address] Medical Oncologist 04/10/25 documented as of this encounter
--- OUTSIDE RECORDS SUMMARY | 2025-05-08 11:52 | XMS_ITS | Encounter Summary ---
Author Organization Healthcare Address [address] [place] [address] Care Team Providers Care Employment Recruiter Name Role Phone Isabella Saucedo Phong BUTCHER HELPER Unavailable [phone] Jeannie Mcmillan RN Unavailable [phone] Ebony Shoemaker Unavailable [phone] Pcp, No Primary Care Provider Unavailabl e Rodney Gonzáles MD Unavailable [phone] Encounter Details Date Type Department Care Team (Late st Contact Info) Description 05/01/2025 Orders Only External Location 800 [place] [id number] Chris Lazo MD [address] [address] Social History Tobacco Use Types Packs/Day Years [...] any time in the past 12 m [facility], were you homeless or living in a care home (including now)? No 05/02/2025 [facility] Utilities Answer Date Recorded In the [...] Romero, RN documented as of this encounter Plan of Treatment Not on file documented as of this encounter Procedures Procedure Name Priority Date/Time Associated Diagnosis Comments CT OUTSIDE IMAGES 05/01/2025 12:38 PM EDT documented in this encounter Results * CT OUTSIDE IMAGES (05/01/2025 12:38 PM EDT) Anatomical Region Laterality Modality Computed Tomogra phy 05/01/2025 12:3 8 PM EDT Chris Lazo MD IMG CT PROCEDURES Final Result documented in [...] documented as of this encounter Care Teams Employment Recruiter Relationship Specialty Start Date End Date Pcp, No [address] [place] [address] PCP - General Family Medicine 03/20/25 Isabella Saucedo APRN 1210 [facility] [address] [place] [address] Referring Physician 02/26/25 Jeannie Mcmillan, RN [facility] [address] [place] [address] Registered Nurse Transplant Surgery 03/08/25 [place] [address] Registered Nurse Transplant Surgery 03/08/25 Rodney Gonzáles MD 1210 [facility] [address] [place] [address] Medical Oncologist 04/10/25 documented as of this encounter
--- OUTSIDE RECORDS SUMMARY | 2025-05-08 11:52 | XMS_ITS | Encounter Summary ---
Author Organization [facility] Address [address] [place] [address] Care Team Providers Care Back Office Medical Assistant Name Role Phone Isabella Saucedo MULTIPLEX OPERATOR Unavailable [phone] Jeannie Mcmillan RN Unavailable [phone] Ebony Shoemaker Unavailable [phone] Reason for Referral * Imaging (Routine) - Closed Specialty Diagnoses / Procedures Referred By Contac t Referred To Contact Radiology Diagnoses Elevated AFP Liver lesion Hepatic cirrhosis, unspecified hepatic cirrhosis type, unspecified whether ascites present (CMS/HCC) Procedures CT CHEST WO IV CONTRAST Peter Do MD [address] [facility] [address] [place] [address] Phone: tel: fax: Referral ID Status Reason Start Date Expiration Date Visits Re quested Visits Authorized [id number] Closed 03/14/2025 09/13/2026 1 1 Encounter Details Date Type Department Care Team (Late st Contact Info) Description 03/14/[address] [facility] [address] [facility] [address] [place] [address] [place] [address] Liver lesion (Primary Dx); Elevated [...] documented as of this encounter Care Teams Back Office Medical Assistant Relationship Specialty Start Date End Date Stump Isabella Darling APRN [address] [place] [address] Referring Physician 02/26/25 Jeannie Mcmillan, RN [facility] [address] [place], [place] [id number] Registered Nurse Transplant Surgery 03/08/25 Ebony Shoemaker [place] [id number] Registered Nurse Transplant Surgery 03/08/25 documented as of this encounter
--- OUTSIDE RECORDS SUMMARY | 2025-05-08 11:53 | XMS_ITS | Encounter Summary ---
Author Organization Healthcare Address [address] [place] [address] Care Team Providers Care Attic Fans Mechanic Name Role Phone Isabella Saucedo Phong FORENSICS TEAM DIRECTOR Unavailable [phone] Jeannie Mcmillan RN Unavailable [phone] Ebony Shoemaker Unavailable [phone] Pcp, No Primary Care Provider Unavailabl e Rodney Gonázles MD Unavailable [phone] Encounter Details Date Type Department Care Team (Late st Contact Info) Description 12/06/2024 Orders Only External Location 800 [place] [address] Provider, External Social History Tobacco Use Types [...] documented as of this encounter Care Teams Attic Fans Mechanic Relationship Specialty Start Date End Date Pcp, [address] [address] PCP - General Family Medicine 03/20/25 Isabella Saucedo APRN 1210 [facility] [address] [place] [address] Referring Physician 02/26/25 Jeannie Mcmillan, RN [facility] 800 [place] [address] Registered Nurse Transplant Surgery 03/08/25 [place] [address] Registered Nurse Transplant Surgery 03/08/25 Rodney Gonzáles MD 1210 [facility] [address] [place] [address] Medical Oncologist 04/10/25 documented as of this encounter
--- OUTSIDE RECORDS SUMMARY | 2025-05-08 11:53 | XMS_ITS | Encounter Summary ---
Author Organization Healthcare Address [address] [place] [address] Care Team Providers Care Automation Tech Name Role Phone Isabella Saucedo Phong CEPHALOMETRIC ANALYST Unavailable [phone] Jeannie Mcmillan RN Unavailable [phone] Ebony Shoemaker Unavailable [phone] Pcp, No Primary Care Provider Unavailabl e Rodney Gonzáles MD Unavailable [phone] Encounter Details Date Type Department Care Team (Late st Contact Info) Description 12/06/2024 Orders Only External Location 800 [place] [address] Provider, External Social History Tobacco Use Types [...] documented as of this encounter Care Teams Automation Tech Relationship Specialty Start Date End Date Pcp, [address] [address] PCP - General Family Medicine 03/20/25 Isabella Saucedo APRN 1210 [facility] [address] [place] [address] Referring Physician 02/26/25 Jeannie Mcmillan, RN [facility]RATION 800 [place] [address] Registered Nurse Transplant Surgery 03/08/25 [place] [address] Registered Nurse Transplant Surgery 03/08/25 Rodney Gonzáles MD 1210 [facility] [address] [place] [address] Medical Oncologist 04/10/25 documented as of this encounter
--- OUTSIDE RECORDS SUMMARY | 2025-05-08 11:53 | XMS_ITS | Encounter Summary ---
Author Organization Healthcare Address [address] [place] [address] Care Team Providers Care Meteorological Aide Name Role Phone Isabella Saucedo Phong HALFWAY HOUSE COUNSELOR Unavailable [phone] Jeannie Mcmillan RN Unavailable [phone] Ebony Shoemaker Unavailable [phone] Pcp, No Primary Care Provider Unavailabl e Rodney Gonzáles MD Unavailable Encounter Details Date Type Department Care Team (Late st Contact Info) Description 12/06/2024 Orders Only External Location 800 [place] [address] Provider, External Social History Tobacco Use Types [...] documented as of this encounter Care Teams Meteorological Aide Relationship Specialty Start Date End Date Pcp, [address] [address] PCP - General Family Medicine 03/20/25 Isabella Saucedo APRN 1210 [facility] [address] [place] [address] Referring Physician 02/26/25 Jeannie Mcmillan, RN [facility]MIN[facility]RATION 800 [place] [address] Registered Nurse Transplant Surgery 03/08/25 [place] [address] Registered Nurse Transplant Surgery 03/08/25 Rodney Gonzáles MD 1210 [facility] [address] [place] [address] Medical Oncologist 04/10/25 documented as of this encounter
--- OUTSIDE RECORDS SUMMARY | 2025-05-08 11:53 | XMS_ITS | Encounter Summary ---
Author Organization Healthcare Address [address] [place] [address] Care Team Providers Care Bowling Floor Manager Name Role Phone Isbaella Saucedo Phong STEAM SHOVELMAN Unavailable [phone] Jeannie Mcmillan RN Unavailable [phone] Ebony Shomeaker Unavailable [phone] Pcp, No Primary Care Provider Unavailabl e Rodney Gonzáles MD Unavailable [phone] Encounter Details Date Type Department Care Team (Late st Contact Info) Description 12/06/2024 Orders Only External Location 800 [place] [address] Provider, External Social History Tobacco Use Types [...] documented as of this encounter Care Teams Bowling Floor Manager Relationship Specialty Start Date End Date Pcp, [address] [address] PCP - General Family Medicine 03/20/25 Isabella Saucedo APRN 1210 [facility] [address] [place] [address] Referring Physician 02/26/25 Jeannie Mcmillan, RN [facility]MINISTRATION 800 [place] [address] Registered Nurse Transplant Surgery 03/08/25 [place] [address] Registered Nurse Transplant Surgery 03/08/25 Rodney Gonzáles MD 1210 [facility] [address] [place] [address] Medical Oncologist 04/10/25 documented as of this encounter
--- OUTSIDE RECORDS SUMMARY | 2025-05-08 11:53 | XMS_ITS | Encounter Summary ---
Author Organization Healthcare Address [address] [place] [address] Care Team Providers Care Research Hydrologist Name Role Phone Isabella Saucedo Phong TOMOGRAPHIC TECH Unavailable [phone] Jeannie Mcmillan RN Unavailable [phone] Ebony Shoemaker Unavailable [phone] Pcp, No Primary Care Provider Unavailabl e Rodney Gonzáles MD Unavailable [phone] Encounter Details Date Type Department Care Team (Late st Contact Info) Description 12/06/2024 Orders Only External Location 800 [place] [address] Provider, External Social History Tobacco Use Types [...] as of this encounter Care Teams Research Hydrologist Relationship Specialty Start Date End Date Pcp, [address] [address] PCP - General Family Medicine 03/20/25 Isabella Saucedo APRN 1210 [facility] [address] [place] [address] Referring Physician 02/26/25 Jeannie Mcmillan, RN [facility] ADMINISTRATION 800 [place] [address] Registered Nurse Transplant Surgery 03/08/25 [place] [address] Registered Nurse Transplant Surgery 03/08/25 Rodney Gonzáles MD 1210 [facility] [address] [place] [address] Medical Oncologist 04/10/25 documented as of this encounter
--- OUTSIDE RECORDS SUMMARY | 2025-05-08 11:53 | XMS_ITS | Encounter Summary ---
Author Organization Healthcare Address [address] [place] [address] Care Team Providers Care Home Service Director Name Role Phone Isabella Saucedo Phong SUSTAINABLE SYSTEMS ANALYST Unavailable [phone] Jeannie Mcmillan RN Unavailable [phone] Ebony Shoemaker Unavailable [phone] Pcp, No Primary Care Provider Unavailabl e Rodney Gonzáles MD Unavailable [phone] Encounter Details Date Type Department Care Team (Late st Contact Info) Description 12/06/2024 Orders Only External Location 800 [place] [address] Provider, External Social History Tobacco Use Types [...] documented as of this encounter Care Teams Home Service Director Relationship Specialty Start Date End Date Pcp, [address] [address] PCP - General Family Medicine 03/20/25 Isabella Saucedo APRN 1210 [facility] [address] [place] [address] Referring Physician 02/26/25 Jeannie Mcmillan, RN [facility]MINISTRATION 800 [place] [address] Registered Nurse Transplant Surgery 03/08/25 [place] [address] Registered Nurse Transplant Surgery 03/08/25 Rodney Gonzáles MD 1210 [facility] [address] [place] [address] Medical Oncologist 04/10/25 documented as of this encounter
--- OUTSIDE RECORDS SUMMARY | 2025-05-08 11:53 | XMS_ITS | Encounter Summary ---
Author Organization Healthcare Address [address] [place] [address] Care Team Providers Care Hairspring Fabrication Supervisor Name Role Phone Isabella Saucedo Phong VAULT TELLER Unavailable [phone] Jeannie Mcmillan RN Unavailable [phone] Ebony Shoemaker Unavailable [phone] Pcp, No Primary Care Provider Unavailabl e Rodney Gonzáles MD Unavailable [phone] Encounter Details Date Type Department Care Team (Late st Contact Info) Description 12/07/2024 Orders Only External Location 800 [place] [address] Provider, External Social History Tobacco Use Types [...] documented as of this encounter Care Teams Hairspring Fabrication Supervisor Relationship Specialty Start Date End Date Pcp, 800 [place] [address] PCP - General Family Medicine 03/20/25 Isabella Saucedo APRN 1210 [facility] [address] [place] [address] Referring Physician 02/26/25 Jeannie Mcmillan, RN [facility]RATION 800 [place] [address] Registered Nurse Transplant Surgery 03/08/25 [place] [address] Registered Nurse Transplant Surgery 03/08/25 Rodney Gonzáles MD 1210 [facility] [address] [place] [address] Medical Oncologist 04/10/25 documented as of this encounter
--- OUTSIDE RECORDS SUMMARY | 2025-05-08 11:53 | XMS_ITS | Encounter Summary ---
Author Organization Healthcare Address [address] [place] [address] Care Team Providers Care Computer Forensic Examiner Name Role Phone Isabella Saucedo Phong MAILING MANAGER Unavailable [phone] Jeannie Mcmillan RN Unavailable [phone] Ebony Shoemaker Unavailable [phone] Pcp, No Primary Care Provider Unavailabl e Rodney Gonzáles MD Unavailable [phone] Encounter Details Date Type Department Care Team (Late st Contact Info) Description 12/06/2024 Orders Only External Location 800 [place] [address] Provider, External Social History Tobacco Use Types [...] documented as of this encounter Care Teams Computer Forensic Examiner Relationship Specialty Start Date End Date Pcp, [address] [address] PCP - General Family Medicine 03/20/25 Isabella Saucedo APRN 1210 [facility] [address] [place] [address] Referring Physician 02/26/25 Jeannie Mcmillan, RN [facility]MINISTRATION 800 [place] [address] Registered Nurse Transplant Surgery 03/08/25 [place] [address] Registered Nurse Transplant Surgery 03/08/25 Rodney Gonzáles MD 1210 [facility] [address] [place] [address] Medical Oncologist 04/10/25 documented as of this encounter
--- OUTSIDE RECORDS SUMMARY | 2025-05-08 11:53 | XMS_ITS | Encounter Summary ---
Author Organization Healthcare Address [address] [place] [address] Care Team Providers Care Entry Table Operator Name Role Phone Isabella Saucedo Phong INSTRUMENT PERSON Unavailable [phone] Jeannie Mcmillan RN Unavailable [phone] Ebony Shoemaker Unavailable [phone] Pcp, No Primary Care Provider Unavailabl e Rodney Gonzáles MD Unavailable [phone] Encounter Details Date Type Department Care Team (Late st Contact Info) Description 12/06/2024 Orders Only External Location [address] [place] [address] Provider, External Social History Tobacco Use Types [...] documented as of this encounter Care Teams Entry Table Operator Relationship Specialty Start Date End Date Pcp, [address] [address] PCP - General Family Medicine 03/20/25 Isabella Saucedo APRN 1210 [facility] [address] [place] [address] Referring Physician 02/26/25 Jeannie Mcmillan, RN [facility] [address] [place] [address] Registered Nurse Transplant Surgery 03/08/25 [place] [address] Registered Nurse Transplant Surgery 03/08/25 Rodney Gonzáles MD 1210 [facility] [address] [place] [address] Medical Oncologist 04/10/25 documented as of this encounter
[2025-05-08 12:12] LABS: Hematocrit 42.2 % (42.0-52.0); Hemoglobin 13.8 g/dL (14.1-18.0); Immature Granulocytes % 0.8 %; Mean Corpuscular HGB Conc 32.7 g/dL (31.8-35.4); Mean Corpuscular Hemoglobin 30.9 pg (27.0-31.2); Mean Corpuscular Volume 94.4 fl (80-94); Nucleated Red Blood Cells % 0 %; Platelet Count 206 K/mm3 (142-424); Red Blood Count 4.47 M/mm3 (4.60-6.20); Red Cell Distribution Width-SD 53.8 fL; White Blood Count 7.9 K/mm3 (4.8-10.8)
[2025-05-08 12:16] LABS: Alanine Aminotransferase 37 U/L (12-78); Albumin Level 3.4 g/dl (3.5-5.0); Albumin/Globulin Ratio 0.9 (1.1-1.8); Alkaline Phosphatase 294 U/L (38-126); Anion Gap 11.7 mEq/L (5-15); Aspartate Amino Transferase 99 U/L (17-59); Bilirubin,Total 1.7 mg/dl (0.2-1.3); Blood Urea Nitrogen 10 mg/dl (9-20); Calcium 9.2 mg/dl (8.4-10.2); Carbon Dioxide 27 mmol/L (22.0-30.0); Chloride 106 mmol/L (98-107); Creatinine,Serum 0.90 mg/dl (0.66-1.25); Estimated Glomerular Filt Rate 84 ml/min (>60); GFR (African American) 102 ML/MIN (>60); Globulin 3.9 g/dL (1.3-3.2); Glucose 93 mg/dl (74-100); Potassium 3.7 mmoL/L (3.5-5.1); Sodium 141 mmol/L (136-145); Total Protein,Serum 7.3 g/dl (6.3-8.2)
== END 2025-05-08 11:55 | disposition home or self-care (01) ==
LOC: INF 11:47
PROVIDERS: PCP Family Medicine; Visit Provider Internal Medicine Medical Oncology
DX: C22.0 Liver cell carcinoma (principal)
CPT/HCPCS: 36415; 80053; 85025

== ENCOUNTER 2025-05-09 12:46 | Outpatient (CLI) | payer MEDICARE, MEDICAID, SELFPAY ==
--- OUTSIDE RECORDS SUMMARY | 2016-03-04 08:15 | XMS_ITS | Encounter Summary ---
Author Organization [place] [address] Care Team Providers Care Resident Caregiver Name Role Phone Jan Sin MD Unavailable [phone] Carlton James DO Primary Care Provide r Macario Pryor MD Unavailable Unavailabl e Encounter Details Date Type Department Care Team (Latest Contact Info) Description 03/04/2016 8:15 AM EDT Hospital Encounter [facility] 238 [facility] [place] [address] Poppy Quintero MD [address] [place], [place] [phone] Left without seen Social History Tobacco Use [...] glasses? No 11/24/2021 10:05 AM EDT Danny Jonse MA Does this person have seriou s [...] are drinking? 0 11/17/2021 5:00 PM EDT Estbean Duarte RN How often do you have [...] 3:32 PM EDT Jer Sena RN * [place] Suicide Severity Rating Scale (Q shift for [...] documented as of this encounter Care Teams Resident Caregiver Relationship Specialty Start Date End Date Carlton James DO [address] [place] [address] PCP - General Family Medicine 05/01/15 11/26/16 Macario Pryor MD [address] [place] [address] PCP - Hematology/Oncology Internal Medicine-Medical Oncology 11/12/15 Jan Sin MD [address] [place] [address] [place], [place] [phone] Internal Medicine-Cardiovascul ar Disease 08/28/14 documented as of this encounter
--- OUTSIDE RECORDS SUMMARY | 2025-03-14 10:00 | XMS_ITS | Encounter Summary ---
Author Organization Healthcare Address [address] [place] [address] Care Team Providers Care Ophthalmic Technician Apprentice Name Role Phone Isabella Saucedo BULK INTAKE WORKER Unavailable [phone] Jeannie Mcmillan RN Unavailable [phone] Ebony Shoemaker Unavailable [phone] Reason for Visit * Reason Comments Liver Lesion * Consultation (Routine) - Closed Specialty Diagnoses / Procedures Referred By Vicente t Referred To Contact Transplant Diagnoses Elevated AFP Liver lesion Hepatic cirrhosis, unspecified hepatic cirrhosis type, unspecified whether ascites present (CMS/HCC) Isabella Saucedo, BULK INTAKE WORKER [address] [place] [address] Phone: tel: fax: [facility] [address] [address] Phone: tel: fax: Referral ID Status Reason Start Date Expiration Date V isits Requested Visits Authorized [id number] Closed Specialty Services Required 03/06/2025 09/05/2026 1 1 Encounter Details Date Type Department Care Team (Late st Contact Info) Description 03/14/2025 10:00 AM EDT Office Visit [facility] [address] [address] Peter Do MD [address] [address] HCC (hepatocellular carcinoma) (Primary Dx) [...] a 64 y.o.-year-old male w/ PMHx cirrhosis, [place], CAD s/p CABG x4 with re-stenosis withrevision, [...] Tobacco Use: High Risk (12/27/2024) Received from [facility] Patient History Smoking Tobacco Use: Every [...] a 64 y.o.-year-old male w/ PMHx cirrhosis, [place], CAD s/p CABG x4 with re-stenosis withrevision, [...] documented as of this encounter Care Teams Ophthalmic Technician Apprentice Relationship Specialty Start Date End Date Isabella Saucedo APRN [address] [place] [address] Referring Physician 02/26/25 Jeannie Mcmillan, RN CH-TRANSPLANT ADMINISTRATION [address] [place] [address] Registered Nurse Transplant Surgery 03/08/25 [place] [address] Registered Nurse Transplant Surgery 03/08/25 documented as of this encounter
--- OUTSIDE RECORDS SUMMARY | 2025-03-14 11:20 | XMS_ITS | Encounter Summary ---
Author Organization Healthcare Address [address] [place] [address] Care Team Providers Care Roving Carrier Name Role Phone LewisIsabella Phong ARCH CUSHION PRESS OPERATOR Unavailable [phone] Jeannie Mcmillan RN Unavailable [phone] Ebony Shoemaker Unavailable [phone] Reason for Referral * Imaging (Routine) - Closed Specialty Diagnoses / Procedures Referred By Contac t Referred To Contact Radiology Diagnoses Elevated AFP Liver lesion Hepatic cirrhosis, unspecified hepatic cirrhosis type, unspecified whether ascites present (CMS/HCC) Procedures CT CHEST WO IV CONTRAST Peter Do MD [address] [address] Phone: tel: fax: Referral ID Status Reason Start Date Expiration Date Visits Re quested Visits Authorized [id number] Closed 03/14/2025 09/13/2026 1 1 Reason for Visit * Imaging (Routine) - Closed Specialty Diagnoses / Procedures Referred By Contac t Referred To Contact Radiology Diagnoses Elevated AFP Liver lesion Hepatic cirrhosis, unspecified hepatic cirrhosis type, unspecified whether ascites present (CMS/HCC) Procedures CT CHEST WO IV CONTRAST Peter Do MD [address] [address] Phone: tel: fax: Referral ID Status Reason Start Date Expiration Date Visits Re quested Visits Authorized [id number] Closed 03/14/2025 09/13/2026 1 1 Encounter Details Date Type Department Care Team (Latest Contact Info) Description 03/14/2025 11:20 AM EDT - 03/14/2025 11:59 PM EDT Hospital Encounter [facility] [address] [place] [address] Elevated AFP; Liver lesion; Hepatic [...] tablet by mouth every 8 hours as needed for muscle spasms. 02/12/2025 Entresto 24-26 MG tablet Take 1 tablet by mouth 2 times a day. escitalopram (Lexapro) 20 MG tablet Take 1 tablet by mouth 1 time each day. 09/07/2024 furosemide (Lasix) 20 MG tablet Take 2 tablets by mouth daily. 02/05/2025 Jardiance 10 MG [...] Take 1 tablet by mouth nightly. 01/30/2025 nitroglycerin (Nitrodur) 0.4 MG/HR patch Place 1 [...] documented as of this encounter Care Teams Roving Carrier Relationship Specialty Start Date End Date Isabella Saucedo APRN [address] [place] [address] Referring Physician 02/26/25 Jeannie Mcmillan, RN [facility] [address] [place] [address] Registered Nurse Transplant Surgery 03/08/25 Ebony Shoemaker [place] [id number] Registered Nurse Transplant Surgery 03/08/25 documented as of this encounter
--- OUTSIDE RECORDS SUMMARY | 2025-03-20 16:39 | XMS_ITS | Encounter Summary ---
Author Organization Healthcare Address [address] [place] [address] Care Team Providers Care Exhaust And Muffler Fitter Name Role Phone Isabella Saucedo GOVERNMENT PROGRAM MANAGER Unavailable [phone] Jeannie Mcmillan RN Unavailable [phone] Ebony Shoemaker Unavailable [phone] Pcp, No Primary Care Provider Unavailabl e Reason for Visit * Reason Comments Abdominal Pain * Auth/Cert (Routine) Specialty Diagnoses / Procedures Referred By Vicente alaniz Referred To Contact Diagnoses Hepatocellular carcinoma hepatocellular carcinoma Navi Tripathi MD [address] [place] [address] Phone: tel: fax: [facility] Inpatient [address] [place] [address] Phone: tel: Referral ID Status Reason Start Date Expiration Date Visits Re quested Visits Authorized [id number] 1 1 Encounter Details Date Type Department Care Team (Latest Contact Info) Description 03/20/2025 4:39 PM EDT - 03/21/2025 6:51 PM EDT Hospital Encounter [facility] Inpatient [address] [place] [address] Clotilde Saleh MD [address] [place] [address] Navi Tripathi MD [address] [place] [address] Lolly Flaherty MD [address] [place] [phone] Epigastric pain (Primary Dx); Hepatocellular carcinoma; Alcoholic [...] PCP name and Address: Pcp, No [address] [facility] / [facility] [address] Referring provider name and address: Monalisa Elizondo, GOVERNMENT PROGRAM MANAGER [address] [place] [address] Chief Concern, Brief History of Present Illness, [...] Ellipta 100-62.5-25 MCG/ACT aerosol powder Generic drug: Isibztxfmau-Ztytwjbpy-Cstkho INHALE 1 PUFF INTO THE LUNGS DAILY AT 0900. Where to Get Your Medications These medications were sent to [facility] [place], [place] - [address] [facility] [id number] calcium carbonate 500 MG chewable tablet HYDROmorphone [...] at 1:00PM Dr. Rodney Gonzáles [facility] Specialty Clinic (Oncology) [address] [place] [address] * Care Plan - Sandy Moseley RN [...] (see comments) Patient/Family Anticipated Services at Transition: director of casework services Patient/Family Anticipates Transition to: home with family [...] and grandson on the bed side when hog worker visited and they were appreciative of hog worker's visit. Prayer and nicole is important to them. Cheese Cutter supported them emotionallyand spiritually. Referral From: Cheese Cutter Initiated Pastoral Care Provided For: Patient, Spouse, [...] and gratitude, Emotional support, Introduced Patient/Family to Cheese Cutter Services, Supportive Listening, Spiritual support Pastoral Care Outcomes: Patient Outcomes: Expresses acceptance, Demonstrates lower level of Anxious(ness), Is knowledgeableabout Business Process Lead Services, Being at peace, Demonstrates and/or verbalizes increased comfort, Endorses increased sense of connection, Expresses intent to participate/comply in plan of care, Expresses e motionally release, Is functionally engaged in meaning making, Gratitude, Expresses feeling spiritually nurtured, Communicates increased satisfaction with hospital experience, Identifies spiritual orreligious practices as helpful, Expresses increased trust in medical team and/or plan of care, Appreciative of Cheese Cutter Support, Expresses being seen and heard Cosigned by Azeb Worthy at 03/23/2025 10:36 AM EDT Associated attestation - Azeb Worthy - 03/23/2025 10:36 AM EDT This is to attest hog worker pr intern chart note has been reviewed and [...] 03/20/2025 7:52 PM EDTAssociated Order(s): Consult to [facility] Consult to [facility] Consult performed by: Navi Tripathi MD [...] the pain caused him to present to [facility] ED, where CT scan showed interval [...] 98%. Results Review {Vanishing Link Review Results :[id number] I have reviewed the latest lab and [...] medication prior to arrival. 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 Patient reports epigastric, LUQ, and RUQ abdominal pain and pressure that began last night. He presented to [facility] for evaluation. He had a CT [...] EXCEPT when ACTIVELY ambulating. Acknowledged VI TRIPATHIRICIA SUKUAMR A 03/20/251945 Admit to inpatient Once Completed [...] NAVI TRIPATHI SUKUMAR A 03/20/251900 Consult to [facility] Once Specialty: Internal Medicine Provider: (Not [...] that began last night. Was seen at [facility] and had CT scan of chest [...] ESS resident, patient [facility] be [facility] medicine and transplant teamwill see him tomorrow. No needs overnight. [MR] [id number] Reached out to hospital medicine for admission [MR] 1917 They agree to admit patient to [facility] for multidisciplinary care. They will put in admissionorders and transfer him to [facility]. Patient updated on plan and provided ice [...] transferred to [facility] Admitting/Attending Physician: NAVI TRIPATHI [[id number]] Provider Care Team: JHOANA 11 [[id number]] Are [...] LAB COAGULATION METHOD 03/21/2025 7:00 AM EDT [facility] INR 1.1 0.9 - 1.1 LAB COAGULATION METHOD 03/21/2025 7:00 AM EDT [facility] Blood Venous blood specimen / Unknown Venipuncture / Unknown 03/21/2025 6:32 AM EDT 03/21/2025 6:43 AM EDT Narrative [facility] - 03/21/2025 7:00 AM EDT [...] MD LAB BLOOD ORDERABLE S Final Result [facility] [address] [place] [address] * (ABNORMAL) Comprehensive metabolic panel (03/21/2025 6:32 AM EDT) Glucose, Plasma 107(H) 74 - 99 mg/dL 03/21/2025 7:11 AM EDT [facility] BUN, Plasma 12 8 - 23 mg/dL 03/21/2025 7:11 AM EDT [facility] Creatinine, Plasma 0.77 0.70 - 1.20 mg/dL 03/21/2025 7:11 AM EDT [facility] BUN/Creatinine Ratio 16 03/21/2025 7:11 AM EDT [facility] Sodium, Plasma 139 136 - 145 mmol/L 03/21/2025 7:11 AM EDT [facility] Potassium, Plasma 4.6 3.6 - 4.9 mmol/L 03/21/2025 7:11 AM EDT [facility] Comment:Hemolyzed, result ma y be falsely increased. Chloride, Plasma 105 97 - 107 mmol/L 03/21/2025 7:11 AM EDT [facility] CO2, Plasma 23 22 - 29 mmol/L 03/21/2025 7:11 AM EDT [facility] Anion Gap 11 6 - 16 mmol/L 03/21/2025 7:11 AM EDT [facility] Total Calcium, Plasma 9.4 8.9 - 10.2 mg/dL 03/21/2025 7:11 AM EDT [facility] Total Protein 7.0 6.3 - 7.9 g/dL 03/21/2025 7:11 AM EDT [facility] Albumin, Plasma 3.6 3.5 - 5.2 g/dL 03/21/2025 7:11 AM EDT [facility] AST, Plasma 621(H) 10 - 50 U/L 03/21/2025 7:11 AM EDT [facility] Comment:Hemolyzed, result ma y be falsely increased. ALT, Plasma 48 10 - 50 U/L 03/21/2025 7:11 AM EDT [facility] Alkaline Phosphatase, Plasma 232(H) 40 - 115 U/L 03/21/2025 7:11 AM EDT [facility] Total Bilirubin, Plasma 0.6 0.2 - 1.1 mg/dL 03/21/2025 7:11 AM EDT [facility] eGFRcr 98.7 mL/min/1.7 3m*2 03/21/2025 7:11 AM EDT [facility] Comment:Reported eGFRcr in m L/min/1.73m2 is based the CKD-EPI 2020 equation that does not use a race coefficient. Blood Venous blood specimen / Unknown Venipuncture / Unknown 03/21/2025 6:32 AM EDT 03/21/2025 6:43 AM EDT Navi Tripathi MD LAB BLOOD ORDERABLE S Final Result [facility] [address] [place] [address] * (ABNORMAL) CBC and Differential (03/21/2025 6:32 AM EDT) WBC Count 6.12 3.70 - 10.30 10*3/uL LAB HEMATOLOGY METHOD 03/21/2025 6:58 AM EDT [facility] RBC Count 4.62 4.60 - 6.10 10*6/uL LAB HEMATOLOGY METHOD 03/21/2025 6:58 AM EDT [facility] HGB 15.2 13.7 - 17.5 g/dL LAB HEMATOLOGY METHOD 03/21/2025 6:58 AM EDT [facility] HCT 45.4 40.0 - 51.0 % LAB HEMATOLOGY METHOD 03/21/2025 6:58 AM EDT [facility] Platelet Count 82(L) 155 - 369 10*3/uL LAB HEMATOLOGY METHOD 03/21/2025 6:58 AM EDT [facility] MCV 98 79 - 98 fL LAB HEMATOLOGY METHOD 03/21/2025 6:58 AM EDT [facility] MCH 32.9(H) 26.0 - 32.0 pg LAB HEMATOLOGY METHOD 03/21/2025 6:58 AM EDT [facility] MCHC 33.5 30.7 - 35.5 g/dL LAB HEMATOLOGY METHOD 03/21/2025 6:58 AM EDT [facility] RDW 16.8(H) 11.5 - 14.5 % LAB HEMATOLOGY METHOD 03/21/2025 6:58 AM EDT [facility] MPV 12.2 8.8 - 12.5 fL LAB HEMATOLOGY METHOD 03/21/2025 6:58 AM EDT [facility] nRBC 0.0 <=0.0 per 100 WBCs LAB HEMATOLOGY METHOD 03/21/2025 6:58 AM EDT [facility] Differential Type Automated LAB HEMATOLOGY METHOD 03/21/2025 6:58 AM EDT [facility] Neutrophils % 55 % LAB HEMATOLOGY METHOD 03/21/2025 6:58 AM EDT [facility] Lymphocytes % 24 % LAB HEMATOLOGY METHOD 03/21/2025 6:58 AM EDT [facility] Monocytes % 17 % LAB HEMATOLOGY METHOD 03/21/2025 6:58 AM EDT [facility] Eosinophils % 2 % LAB HEMATOLOGY METHOD 03/21/2025 6:58 AM EDT [facility] Basophils % 1 % LAB HEMATOLOGY METHOD 03/21/2025 6:58 AM EDT [facility] Immature Granulocytes % 1 % LAB HEMATOLOGY METHOD 03/21/2025 6:58 AM EDT [facility] Neutrophils Absolute 3.46 1.60 - 6.10 10*3/uL LAB HEMATOLOGY METHOD 03/21/2025 6:58 AM EDT [facility] Lymphocytes Absolute 1.45 1.20 - 3.90 10*3/uL LAB HEMATOLOGY METHOD 03/21/2025 6:58 AM EDT [facility] Monocytes Absolute 1.03(H) 0.30 - 0.90 10*3/uL LAB HEMATOLOGY METHOD 03/21/2025 6:58 AM EDT [facility] Eosinophils Absolute 0.11 0.00 - 0.50 10*3/uL LAB HEMATOLOGY METHOD 03/21/2025 6:58 AM EDT [facility] Basophils Absolute 0.04 0.00 - 0.10 10*3/uL LAB HEMATOLOGY METHOD 03/21/2025 6:58 AM EDT [facility] Immature Granulocytes Absolute 0.03 0.00 - 0.06 10*3/uL LAB HEMATOLOGY METHOD 03/21/2025 6:58 AM EDT [facility] Blood Venous blood specimen / Unknown Venipuncture / Unknown 03/21/2025 6:32 AM EDT 03/21/2025 6:43 AM EDT [facility] - 03/21/2025 6:58 AM EDT Therapeutic decision making should be based on absolute values, rather than percentages. us Navi Tripathi MD LAB BLOOD ORDERABLE S Final Result [facility] [address] [place] [address] * Troponin T, High Sensitivity, 2 Hour, Plasma (03/20/2025 10:54 PM EDT) Pathologist [facility] Troponin T, High Sensitivity, 2 Hour 10 <19 ng/L 03/20/2025 11:31 PM EDT [facility] Blood Venous blood specimen / Unknown Venipuncture / Unknown 03/20/2025 10:54 PM EDT 03/20/2025 11:04 PM EDT Navi Tripathi MD LAB BLOOD ORDERABLE S Final Result [facility] [address] [place] [address] * Troponin now and 120 min (03/20/2025 6:51 PM EDT) Pathologist [facility] Troponin T, High Sensitivity, 0 Hour 9 <19 ng/L 03/20/2025 7:35 PM EDT [facility] Blood Venous blood specimen / Unknown Venipuncture / Unknown 03/20/2025 6:51 PM EDT 03/20/2025 7:09 PM EDT Adrienne HURTADO LAB BLOOD ORDERABLES Courtney l Result Performing Organization Address [facility] Co de Phone Number [facility] [address] [place] [address] * ED HIV 1/2 Antibody/Antigen Screen w/Reflex to HIV 1/2 Differentiation (03/20/2025 6:51 PM EDT) [facility] HIV 1 & 2 Antibody/Antigen Screen Non Reactive Non Reactive 03/20/2025 8:05 PM EDT [facility] Comment:Screening for HIV 1 & 2 antibodies, and P24 antigen is NONREACTIVE. No confirmatory testing is required. Blood Venous blood specimen / Unknown Venipuncture / Unknown 03/20/2025 6:51 PM EDT 03/20/2025 7:09 PM EDT Adrienne HURTADO LAB BLOOD ORDERABLES Courtney l Result Performing Organization Address City/[facility]/ZIP Co de Phone Number [facility] [address] [place] [address] * Hepatitis C Antibody - ED (03/20/2025 6:51 PM EDT) [facility] Hepatitis C Antibody Negative Negative 03/20/2025 8:01 PM EDT [facility] Blood Venous blood specimen / Unknown Venipuncture / Unknown 03/20/2025 6:51 PM EDT 03/20/2025 7:09 PM EDT Adrienne A [employer] PA LAB BLOOD ORDERABLES Courtney l Result Performing Organization Address City/[facility]/ZIP Co de Phone Number [facility] [address] [place] [address] * APTT (03/20/2025 6:51 PM EDT) [facility] aPTT 31 25 - 35 sec 03/20/2025 7:25 PM EDT [facility] Blood Venous blood specimen / Unknown Venipuncture / Unknown 03/20/2025 6:51 PM EDT 03/20/2025 7:08 PM EDT us Adrienne A [employer] PA LAB BLOOD ORDERABLES Courtney l Result Performing Organization Address [facility] de Phone Number [facility] [address] [place] [address] * C-Reactive protein (03/20/2025 6:51 PM EDT) [facility] CRP, Plasma 5.2 <=8.0 mg/L 03/20/2025 [...] ORDERABLES Courtney l Result Performing Organization Address City/[facility]/ZIP Co de Phone Number [facility] [address] [place] [address] * Lactic acid, venous (03/20/2025 6:51 PM EDT) Pathologist [facility] Lactate, Venous, Whole Blood 1.7 0.5 - 2.2 mmol/L LAB HEMATOLOGY METHOD 03/20/2025 7:12 PM EDT [facility] Blood Venous blood specimen / Unknown Venipuncture / Unknown 03/20/2025 6:51 PM EDT 03/20/2025 7:08 PM EDT [facility] LAB BLOOD ORDERABLES Courtney l Result [facility] [address] [place] [address] * Lipase (03/20/2025 6:51 PM EDT) [facility] Lipase, Plasma 19 19 - 63 U/L 03/20/2025 7:35 PM EDT [facility] Blood Venous blood specimen / Unknown Venipuncture / Unknown 03/20/2025 6:51 PM EDT 03/20/2025 7:09 PM EDT [employer] PA LAB BLOOD ORDERABLES Courtney l Result [facility] [address] [place] [address] * PT-INR (03/20/2025 6:51 PM EDT) [facility] Prothrombin Time 13.8 12.0 - 14.3 [...] recurrent MS INR 2.5 to 3.5 Adrienne HURTADO LAB BLOOD ORDERABLES Courtney ferrari Result [facility] [address] [place] [id number] * (ABNORMAL) CMP (03/20/2025 6:51 PM EDT) Glucose, Plasma 89 74 - 99 mg/dL 03/20/2025 7:47 PM EDT [facility] BUN, Plasma 15 8 - 23 mg/dL 03/20/2025 7:47 PM EDT [facility] Creatinine, Plasma 0.77 0.70 - 1.20 mg/dL 03/20/2025 7:47 PM EDT [facility] BUN/Creatinine Ratio 19 03/20/2025 7:47 PM EDT [facility] Sodium, Plasma 141 136 - 145 mmol/L 03/20/2025 7:47 PM EDT [facility] Potassium, Plasma 3.9 3.6 - 4.9 mmol/L 03/20/2025 7:47 PM EDT [facility] Chloride, Plasma 102 97 - 107 mmol/L 03/20/2025 7:47 PM EDT [facility] CO2, Plasma 26 22 - 29 mmol/L 03/20/2025 7:47 PM EDT [facility] Anion Gap 13 6 - 16 mmol/L 03/20/2025 7:47 PM EDT [facility] Total Calcium, Plasma 9.6 8.9 - 10.2 mg/dL 03/20/2025 7:47 PM EDT [facility] Total Protein 7.4 6.3 - 7.9 g/dL 03/20/2025 7:47 PM EDT [facility] Albumin, Plasma 3.7 3.5 - 5.2 g/dL 03/20/2025 7:47 PM EDT [facility] AST, Plasma 395(H) 10 - 50 U/L 03/20/2025 7:47 PM EDT [facility] Comment:Hemolyzed, result ma y be falsely increased. ALT, Plasma 43 10 - 50 U/L 03/20/2025 7:47 PM EDT [facility] Alkaline Phosphatase, Plasma 210(H) 40 - 115 U/L 03/20/2025 7:47 PM EDT [facility] Total Bilirubin, Plasma 0.7 0.2 - 1.1 mg/dL 03/20/2025 7:47 PM EDT [facility] eGFRcr 98.7 mL/min/1.7 3m*2 03/20/2025 7:47 PM EDT [facility] Comment:Reported eGFRcr in m L/min/1.73m2 is based the CKD-EPI 2020 equation that does not use a race coefficient. Blood Venous blood specimen / Unknown Venipuncture / Unknown 03/20/2025 6:51 PM EDT 03/20/2025 7:09 PM EDT us Adrienne HURTADO LAB BLOOD ORDERABLES Courtney ferrari Result Performing Organization Address City/State/[facility] Co de Phone Number [facility] [address] [place] [address] * (ABNORMAL) CBC w/diff (03/20/2025 6:51 PM EDT) WBC Count 6.84 3.70 - 10.30 10*3/uL LAB HEMATOLOGY METHOD 03/20/2025 7:21 PM EDT [facility] RBC Count 4.63 4.60 - 6.10 10*6/uL LAB HEMATOLOGY METHOD 03/20/2025 7:21 PM EDT [facility] HGB 15.3 13.7 - 17.5 g/dL LAB HEMATOLOGY METHOD 03/20/2025 7:21 PM EDT [facility] HCT 44.8 40.0 - 51.0 % LAB HEMATOLOGY METHOD 03/20/2025 7:21 PM EDT [facility] Platelet Count 79(L) 155 - 369 10*3/uL LAB HEMATOLOGY METHOD 03/20/2025 7:21 PM EDT [facility] MCV 97 79 - 98 fL LAB HEMATOLOGY METHOD 03/20/2025 7:21 PM EDT [facility] MCH 33.0(H) 26.0 - 32.0 pg LAB HEMATOLOGY METHOD 03/20/2025 7:21 PM EDT [facility] MCHC 34.2 30.7 - 35.5 g/dL LAB HEMATOLOGY METHOD 03/20/2025 7:21 PM EDT [facility] RDW 16.5(H) 11.5 - 14.5 % LAB HEMATOLOGY METHOD 03/20/2025 7:21 PM EDT [facility] MPV 11.2 8.8 - 12.5 fL LAB HEMATOLOGY METHOD 03/20/2025 7:21 PM EDT [facility] nRBC 0.0 <=0.0 per 100 WBCs LAB HEMATOLOGY METHOD 03/20/2025 7:21 PM EDT [facility] Differential Type Automated LAB HEMATOLOGY METHOD 03/20/2025 7:21 PM EDT [facility] Neutrophils % 60 % LAB HEMATOLOGY METHOD 03/20/2025 7:21 PM EDT [facility] Lymphocytes % 26 % LAB HEMATOLOGY METHOD 03/20/2025 7:21 PM EDT [facility] Monocytes % 12 % LAB HEMATOLOGY METHOD 03/20/2025 7:21 PM EDT [facility] Eosinophils % 2 % LAB HEMATOLOGY METHOD 03/20/2025 7:21 PM EDT [facility] Basophils % 0 % LAB HEMATOLOGY METHOD 03/20/2025 7:21 PM EDT [facility] Immature Granulocytes % 0 % LAB HEMATOLOGY METHOD 03/20/2025 7:21 PM EDT [facility] Neutrophils Absolute 4.05 1.60 - 6.10 10*3/uL LAB HEMATOLOGY METHOD 03/20/2025 7:21 PM EDT [facility] Lymphocytes Absolute 1.77 1.20 - 3.90 10*3/uL LAB HEMATOLOGY METHOD 03/20/2025 7:21 PM EDT [facility] Monocytes Absolute 0.85 0.30 - 0.90 10*3/uL LAB HEMATOLOGY METHOD 03/20/2025 7:21 PM EDT [facility] Eosinophils Absolute 0.11 0.00 - 0.50 10*3/uL LAB HEMATOLOGY METHOD 03/20/2025 7:21 PM EDT [facility] Basophils Absolute 0.03 0.00 - 0.10 10*3/uL LAB HEMATOLOGY METHOD 03/20/2025 7:21 PM EDT [facility] Immature Granulocytes Absolute 0.03 0.00 - 0.06 10*3/uL LAB HEMATOLOGY METHOD 03/20/2025 7:21 PM EDT [facility] Blood Venous blood specimen / Unknown Venipuncture / Unknown 03/20/2025 6:51 PM EDT 03/20/2025 7:08 PM EDT Narrative [facility] - 03/20/2025 7:21 PM EDT Therapeutic decision making should be based on absolute values, rather than percentages. Adrienne HURTADO LAB BLOOD ORDERABLES Courtney l Result Performing Organization Address City/[facility]/ZIP Co de Phone Number [facility] [address] [place] [address] * EKG now - STAT (adult) (03/20/2025 5:31 PM EDT) EKG DIAGNOSIS CLASS Abnormal MUSE ECG Ventricular Rate 60 BPM MUSE ECG Atrial Rate 60 BPM MUSE ECG AZ Interval 176 ms MUSE ECG QRSD Interval 86 ms MUSE ECG QT Interval 422 ms MUSE ECG QTC Interval 422 ms MUSE ECG P [place] 53 degrees MUSE ECG R [place] -37 degrees MUSE ECG T Wave [place] 80 degrees MUSE ECG Diagnosis Atrial-paced rhythm MUSE ECG Diagnosis Left axis deviation MUSE ECG Diagnosis T wave abnormality, consider anterior ischemia MUSE ECG Diagnosis Abnormal ECG MUSE ECG Diagnosis MUSE ECG Diagnosis Confirmed by J Carlos Campbell ([id number]) on 03/20/2025 5:41:58 PM MUSE ECG 03/20/2025 5:31 PM EDT 03/20/2025 5:41 PM EDT Adrienne HURTADO ECG ORDERABLES Final Res ult Performing Organization Address City/[facility] Co de Phone Number MUSE ECG documented [...] documented as of this encounter Care Teams Exhaust And Muffler Fitter Relationship Specialty Start Date End Date Pcp, Tiki [address] [place] [address] PCP - General Family Medicine 03/20/25 Isabella Saucedo APRN [address] [place] [address] Referring Physician 02/26/25 Jeannie Mcmillan, RN [facility] [address] [place], [place] [id number] Registered Nurse Transplant Surgery 03/08/25 Ebony Shoemaker [place] [phone] Registered Nurse Transplant Surgery 03/08/25 documented as of this encounter
--- OUTSIDE RECORDS SUMMARY | 2025-04-23 09:00 | XMS_ITS | Encounter Summary ---
Author [place] [address] Care Team Providers Care Laundry Pricing Clerk Name Role Phone Jan Sin MD Unavailable [phone] Macario Pryor MD Un[facility] Res[facility] MD Primary Care Provider [phone] Reason for Visit * Reason Comments Annual Exam Encounter Details Date Type Department Care Team (Late st Contact Info) Description 04/23/2025 9:00 AM EDT Office Visit SEP Luis [facility] [place] [address] Cr Resendez MD [address] [place] [address] [place] MARTINEZ [id number] Encounter for Medicare annual wellness exam (Primary Dx); Hepatocellular carcinoma (HCC); Chronic systolic congestive heart failure (HCC); Mixed simple and mucopurulent chronic bronchitis (HCC); Unspecified essential hypertension; Screening for prostate cancer; Bilateral impacted cerumen Social History Tobacco Use Types Packs/Day Years [...] Sign Reading Time Taken Comments Blood Pressure 124/50 04/23/2025 8:47 AM EDT Pulse 76 04/23/2025 8:47 AM EDT Temperature 36.7 C (98 F) 04/23/2025 8:47 AM EDT Respiratory Rate 18 04/23/2025 8:47 AM EDT Oxygen Saturation 98% 04/23/2025 8:47 AM EDT Inhaled Oxygen Concentration - - Weight 62 kg (136 lb 9.6 oz) 04/23/2025 8:47 AM EDT Height 172.7 cm (5' 8 ) 04/23/2025 8:47 AM EDT Body Mass Index 20.77 04/23/2025 8:47 AM EDT documented in this encounter Functional Status * Is the [...] 10:05 AM EDT Danny Jones MA * PHQ-2 Total Score Answer Date of [...] dennis le energy 3 04/23/2025 8:00 AM EDElizabeth Enriquez RMA Poor appetite or overeating 3 04/23/2025 8 :00 AM Elizabeth Roberts RMA Feeling bad about [...] 3 04/23/2025 8:00 AM Manisha Roberts RMA documented as of this encounter Mental Status * Because of a physical, mental or emotional condition, does this person have serious difficulty concentrating, remembering or making decisions? Answer Entry Date Author No 11/24/2021 10:05 AM Danny Mckeon MA documented in this encounter Progress Notes * Cr Resendez MD - 04/23/2025 9:00 AM EDTAssociated Problem(s): Hepatocellular carcinoma (HCC) Under treatment with GI and oncology at [facility]. On once monthly chemotherapy atthis time. Planning for follow-up scan in 2 to 3 months. - Given advance care planning packet to complete at home and bring back to the office. Discussed advance care planning in detail at today's visit. All questions answered. * Cr Resendez MD - 04/23/2025 9:00 AM EDTAssociated Problem(s): Chronic systolic congestive heart failure (HCC) Entresto was recently stopped due to side effects of hypotension. Still on SGLT2 and beta-sam. Will consider restarting low-dose ARB in the future if his blood pressure stabilizes * Cr Resendez MD - 04/23/2025 9:00 AM EDTAssociated Problem(s): Mixed simple and mucopurulent chronic bronchitis (HCC) Stable on Trelegy continue current regiment * Cr Resendez MD - 04/23/2025 9:00 AM EDTAssociated Problem(s): Unspecified essential hypertension Entresto was stopped due to issues with hypotension. Blood pressure is at goal range today. Consider low-dose ARB in the future if his blood pressure tolerates it Orders: HEMOGLOBIN A1C; Future COMPREHENSIVE METABOLIC PANEL; Future TSH REFLEX TO FT4; Future LIPID PANEL REFLEX; Future * Cr Resendez MD - 04/23/2025 9:00 AM EDT Assessment & Plan Encounter for Medicare annual wellness exam Orders: HEMOGLOBIN A1C; Future COMPREHENSIVE METABOLIC PANEL; Future CBC WITH DIFF; Future TSH REFLEX TO FT4; Future LIPID PANEL REFLEX; Future Will check screening labs per above. Trend PSA for prostate cancer screening. Up-to-date on lung cancer screening, colon cancer screening. Currently being treated for hepatocellular carcinoma at [facility] Fall Risk Assessment: Fall Risk Assessment: positive - remove rugs, runners and other trip hazards positive - add grab bars in high fall risk locations (bathroom, tub/shower, toilet) positive - use assist devices routinely (cane, walker or wheelchair) Functional Status/Social Determinates of Health: issues noted but adequately managed by patient, social support and/or family Depression Screening: positive - known existing condition that is currently under medical management Dementia Screening: known or existing medical condition that is under medical treatment or active surveillence Vaccinations: Recommended discussion about RSV vaccine at the pharmacy Exercise/Activity: recommended increasing current . - Given advance care planning packet to complete at home and bring back to the office. Discussed advance care planning in detail at today's visit. All questions answered. Hepatocellular carcinoma (HCC) Under treatment with GI and oncology at [facility]. On once monthly chemotherapy atthis time. Planning for follow-up scan in 2 to 3 months. - Given advance care planning packet to complete at home and bring back to the office. Discussed advance care planning in detail at today's visit. All questions answered. Chronic systolic congestive heart failure (HCC) Entresto was recently stopped due to side effects of hypotension. Still on SGLT2 and beta-sam. Will consider restarting low-dose ARB in the future if his blood pressure stabilizes Mixed simple and mucopurulent chronic bronchitis (HCC) Stable on Trelegy continue current regiment Unspecified essential hypertension Entresto was stopped due to issues with hypotension. Blood pressure is at goal range today. Consider low-dose ARB in the future if his blood pressure tolerates it Orders: HEMOGLOBIN A1C; Future COMPREHENSIVE METABOLIC PANEL; Future TSH REFLEX TO FT4; Future LIPID PANEL REFLEX; Future Screening for prostate cancer Orders: PROSTATE SPECIFIC ANTIGEN (SCREENING); Future Trend PSA for prostate cancer screening Bilateral impacted cerumen Orders: WI REMOVAL IMPACTED CERUMEN IRRIGATION/LVG UNILAT Cerumen impaction removed with lavage Progress Note: Vitals: 04/23/25 0847 BP: 124/50 Pulse: 76 Resp: 18 Temp: 98 ??F (36.7 ??C) TempSrc: Tympanic SpO2: 98% Weight: 136 lb 9.6 oz (62 kg) Height: 5' 8 (1.727 m) Body mass index is 20.77 kg/m??. SUBJECTIVE: Chief Complaint Patient presents with Annual Exam HPI: Medicare Wellness Assessment: Subsequent Annual Medicare Wellness Assessment. Risk Assessments: Fall Risk Assessment Has the patient had any fall with injury in the past year?: (!) Yes Has the patient had 2 or more falls in the past year?: No Is the patient able to sit without assistance?: (!) No Is the patient able to get up without assistance?: (!) No Does the patient have a difficult time ambulating when first getting up?: No Does the patient have rugs or runners in the home?: No Does the patient have grab bars in the bathroom?: (!) No Does the patient have stairs inside or outside of the home?: (!) Yes Does the patient have handrails for all inside or outside stairs?: Yes (In Office Assessment Only): Is the patient able to ambulate without assistance/device and with a gait steady?: Yes (In Office Assessment Only): TUG test: Time patient going from sitting to standing, walk 10 feet, return to chair and sit. Record time. : Less or equal to 12 seconds Functional Status Assessment Functional Level: self care Functional Mobility Assessment: (!) mobile with cane/walker Assessment of transportation needs: (!) only drives short distances/daytime Functional Activities of Daily Living Limitations: No issues Bladder: Do you have issues with your bladder, such as urgency or leaking urine?: No issues Does the patient report issues or concerns regarding hearing?: (!) Yes Activities of Daily Living Assistive Device Assessment Assistive Devices: Dentures upper; Dentures lower Osteoporosis Screening Assessment Has the patient had a DEXA (Bone Density) scan in the past 2 years?: Not applicable (male) No results found for this or any previous visit. Abnormal Pains Assessment Excluding what you would consider normal aches and pains for your age and medical condition, do youhave any unusual or worrisome pains?: No Opiate Screening Are you currently on opiate or narcotic medications?: No Do you ever use more of your medication, that is, take a higher dose, than is prescribed for you?: 0 Do you ever need early refills for your pain medication?: 0 Do you ever feel high or get a buzz after using your pain medication?: 0 Do you ever take you pain medication because you are upset, using the medication to relieve or copewith problems other than pain?: 0 Have you ever gone to multiple physicians, including emergency room doctors, seeking more of your pain medication?: 0 PHQ Depression Screening Results Little interest or pleasure in doing things: 0 Feeling down, depressed, or hopeless: 3 PHQ-2 Total Score: 3 Trouble falling or staying asleep, or sleeping too much: 1 Feeling tired or having little energy: 3 Poor appetite or overeatin Feeling bad about yourself - or that you are a failure or have let yourself or your family down: 2 Trouble concentrating on things, such as reading the newspaper or watching television: 3 Moving or speaking so slowly that other people could have noticed. Or the opposite - being so fidgety or restless that you have been moving around a lot more than usual: 0 Thoughts that you would be better off , or of hurting yourself in some way: 0 PHQ-9 Total Score: 15 Advanced Directive Evaluation Does the patient have an Advance Directive?: (!) No Advance Care Planning Guide Given?: Yes (For Dementia Screening below can use either AD-8 or Mini Cog. Doesn't require both.) AD-8 Dementia Screening tool results Problems with judgement: (!) 1 Less interest in hobbies/activities: (!) 1 Repeats the same things over and over: 0 Trouble learning how to use a tool, appliance or gadget: 0 Forgets correct month or year: 0 Trouble handling complicated financial affairs: 0 Trouble remembering appointments: (!) 1 Daily problems with thinking and/or memory: 0 Total AD8 score:: (!) 3 Mini Cog Dementia Screening tool results Number of words immediately repeated back correctly.: 3 Clock Test: Please draw a clock face and draw in hands to show 10 minutes past eleven o'clock.: correct number placement, 1 pt Number of Words Recalled: 3 Dementia: Negative Welcome to Medicare Vision Screening Patient Instructions AWV findings and Plan of Care: Recommendations as part of the Personal Plan of Care based on risk screening assessments are: Fall Risk Assessment: Fall Risk Assessment: positive - remove rugs, runners and other trip hazards positive - add grab bars in high fall risk locations (bathroom, tub/shower, toilet) positive - use assist devices routinely (cane, walker or wheelchair) Functional Status/Social Determinates of Health: issues noted but adequately managed by patient, social support and/or family Depression Screening: positive - known existing condition that is currently under medical management Dementia Screening: known or existing medical condition that is under medical treatment or active surveillence Vaccinations: Recommended discussion about RSV vaccine at the pharmacy Exercise/Activity: recommended increasing current Recommended follow up annually for Medicare Annual Wellness Visit. Good preventative health care is important in reducing morbidity and mortality. I recommend exercise regularly as tolerated focusing on strength and balance. I recommend a balanced diet focusing on fruits, veggies, and lean meats. I recommend avoiding having rugs, runners, or other loose trip hazards in the home as these increase fall risk. I recommend installing grab bars in the bathrooms close to toilets, in tubs, and in showers as these are common areas for falls when transitioning from wet surfaces to dry surfaces, or visa versa. This is also an area of the home that is high risk for falls at night. I encourage having an Advanced Directives. This is something we recommend you have on file at home,as well as something that we should have on file in our records. If we don't have a copy of your current Advanced Directive, please bring a copy to your next visit. If you have a power of privacy attorney stute, we should also have a copy on file. I encourage candid discussion with your family on your wishes in the event that you are incapacitated and unable to participate in direct medical decision making. It is important to stay up to date on recommended vaccinations, please see the health maintenance topics due below and if we have not completed one of those topics today, please consider completing as part of your wellness plan this year. Below are other health maintenance topics that are recommended to be closed at your earliest opportunity. You may notice that some of these were addressed in the office today and will show as resolved in your MyChart account soon. Health Maintenance Due Topic Date Due RSV or 60+ (1 - Risk 60-74 years 1-dose series) Never done COVID-19 Vaccine (2023- season) Never done Wellness Exam Medicare 12/14/2024 As part of today's visit the components of the Medicare wellness assessment were completed. These components included reviewing the information available in the risk screening questionnaire that was administered by ancillary staff either today or prior to today's visit (pre-visit planning) and recorded in the Medicare Wellness Assessment Flowsheet in the EMR. I have reviewed the data in regards to fall risk, activities of daily living/functional status, depression screening, dementia screening,and outstanding Health Maintenance topics and edited where necessary. The staff has reviewed and updated the past medical history, social history, family history, allergies, medications, and care team information during the standard rooming process. I have also reviewed this data as part of today'svisit. Below are the findings, recommendations, and Personal Plan of Care. The patient received a copy of their Personal Plan of Care including health maintenance topics thatare recommended to be completed and this can be noted in the after visit summary. The AVS is provided to the patient digitally through their [facility] account or with a paper copy if the patient doesn't have an active MyChart Account. A copy of today's progress note with recommendations below is alsoavailable electronically for patients with an active [facility] account per the Federal Cures Act. TheAVS also contains additional patient education if appropriate on topics common to wellness and their plan of care. History Reviewed: No results found. No results found for this visit on 04/23/25. Patient Active Problem List Diagnosis Unspecified essential hypertension Generalized anxiety disorder Backache, unspecified Osteoarthritis ASCVD (arteriosclerotic cardiovascular disease) BPH (benign prostatic hyperplasia) Bradycardia S/P CABG x 4 Screening for colon cancer GERD (gastroesophageal reflux disease) Fatty liver Weight loss, unintentional Thrombocytopenia Cerebral atrophy Aorto-iliac atherosclerosis Current moderate episode of major depressive disorder without prior episode (HCC) Mixed simple and mucopurulent chronic bronchitis (HCC) Encounter for colonoscopy due to history of colonic polyp Cardiomyopathy (HCC) Chronic systolic congestive heart failure (HCC) DOLLY (obstructive sleep apnea) Calculus of gallbladder without cholecystitis without obstruction Hepatocellular carcinoma (HCC) Past Medical History: Diagnosis Date Arthritis Blood circulation, collateral feet and hands get cold since cabg CAD (coronary artery disease) COPD (chronic obstructive pulmonary disease) (HCC) Depression Headache(784.0) Hypertension Kidney stone PA (myocardial infarction) (HCC) 4 times Neuromuscular disorder (HCC) back and left leg Other disorders of kidney and ureter trys to go often Shortness of breath Past Surgical History: Procedure Laterality Date BACK SURGERY 08/30/1997 CARDIAC SURGERY cabg 2 times CARDIAC SURGERY 2019 pace maker CATARACT REMOVAL 08/30/2007 COLONOSCOPY N/A 10/14/2015 COLONOSCOPY snare polypectomy; Surgeon: Poppy Quintero MD; Location: [facility]; Service: Endoscopy CORONARY ANGIOPLASTY WITH STENT PLACEMENT 01/04/2024 [facility] EYE SURGERY sandra cataract HERNIA REPAIR NECK SURGERY 12/06/2024 [facility] SPINAL CORD DECOMPRESSION 08/30/1998 UPPER GASTROINTESTINAL ENDOSCOPY N/A 10/30/2015 ESOPHAGOGASTRODUODENOSCOPY with biopsies; Surgeon: Poppy Quintero MD; Location: [facility]; Service: Endoscopy VASCULAR SURGERY spinal cord stimulator Allergies Allergen Reactions Adhesive Rash Adhesive Tape-Silicones Tape pulls my skin off. Can only use paper tape Celexa [Citalopram] shakes Cymbalta [Duloxetine] Helped cause kidney stone Wellbutrin [Bupropion Hcl] Nightmares Gabapentin Other (See Comments) Agitation, irritability Current Outpatient Medications on File Prior to Visit Medication Sig Dispense Refill albuterol (PROVENTIL HFA;VENTOLIN HFA) 90 mcg/actuation Inhl HFA Aerosol Inhaler INHALE 2 PUFFS BY MOUTH FOUR TIMES DAILY 25.5 g 0 aspirin 81 mg Oral Tablet, Delayed Release (E.C.) Take 81 mg by mouth daily. bisoprolol (ZEBETA) 5 mg Oral Tablet Take 1 Tablet by mouth once daily. 30 Tablet 2 clopidogreL (PLAVIX) 75 mg Oral Tablet Take 1 Tablet by mouth once daily 30 Tablet 0 clotrimazole (LOTRIMIN) 1 % Top Cream Apply topically 2 times daily. 24 g 0 cyclobenzaprine (FLEXERIL) 5 mg Oral Tablet Take 1 Tablet by mouth every 8 hours as needed. 60 Tablet 2 empagliflozin (JARDIANCE) 10 mg Oral Tablet Take 1 Tablet by mouth daily. 90 Tablet 3 escitalopram oxalate (LEXAPRO) 20 mg Oral Tablet Take 1 Tablet by mouth daily. 90 Tablet 3 eenaprgrpdb-iyogqjjcu-flgcfgus (TRELEGY ELLIPTA) 100-62.5-25 mcg Inhl Disk with Device Inhale 1 Puff into the lungs daily at 0900. 1 Each 5 fUROsemide (LASIX) 20 mg Oral Tablet Take 20 mg by mouth every other day. 3 times week HYDROmorphone (DILAUDID) 4 mg Oral Tablet Take 4 mg by mouth. megestroL (MEGACE) 400 mg/10 mL (40 mg/mL) Oral Suspension TAKE 20 ML BY MOUTH ONCE DAILY. SHAKE WELL nalOXone (NARCAN) 4 mg/actuation Nasl Carmine, Non-Aerosol 0.1 mL by Nasal route daily as needed for Opioid Reversal. 2 Each 0 nitroGLYCERIN (NITROSTAT) 0.4 mg SL Tablet, Sublingual Place 0.4 mg under the tongue every 5 minutes as needed. for chest pain. Use up to 3 doses. If no relief, go to ER. ondansetron (ZOFRAN-ODT) 4 mg Oral Tablet, Rapid Dissolve Dissolve 4 mg by mouth every 6 hours as needed. polyethylene glycol 3350 4 gram Oral Powder in Packet potassium chloride 20 mEq Oral Tablet Sustained Release Take 0.5 Tablets by mouth daily. prochlorperazine (COMPAZINE) 10 mg Oral Tablet Take 10 mg by mouth every 6 hours as needed. for nausea and vomiting senna (SENOKOT) 8.6 mg Oral Tablet Take 17.2 mg by mouth nightly. No current facility-administered medications on file prior to visit. Social History Socioeconomic History Marital status: Spouse name: None Number of children: None Years of education: None Highest education level: None Tobacco Use Smoking status: Every Day Current packs/day: 2.00 Average packs/day: 2.0 packs/day for 40.6 years (81.3 ttl pk-yrs) Types: Cigarettes Start date: 08/30/1973 Last attempt to quit: 08/29/2005 Smokeless tobacco: Never Tobacco comments: only smokes once in awhile Vaping Use Vaping status: Never Used Substance and Sexual Activity Alcohol use: No Comment: none in 7 yrs Drug use: No Sexual activity: Not Currently Partners: Female Social Drivers of Health Food Insecurity: Patient Declined (12/07/2024) Received from [facility] Hunger Vital Sign Worried About Running Out of Food in the Last Year: Patient declined Ran Out of Food in the Last Year: Patient declined Transportation Needs: Patient Declined (12/07/2024) Received from [facility] PRAPARE - Transportation Lack of Transportation (Medical): Patient declined Lack of Transportation (Non-Medical): Patient declined Housing Stability: Patient Declined (12/07/2024) Received from [facility] Housing Stability Vital Sign Unable to Pay for Housing in the Last Year: Patient declined Number of Times Moved in the Last Year: 0 Homeless in the Last Year: Patient declined Family History Problem Relation Age of Onset Heart Disease Father High Blood Pressure Father Diabetes Father Crohn's Disease Mother Heart Disease Brother Immunization History Administered Date(s) Administered Influenza High Dose 06/20/2024 Influenza Vaccine Quadrivalent 06/08/2014, 05/16/2015, 06/10/2016, 05/06/2018 Influenza Vaccine Quadrivalent PF 05/08/2019 Influenza Vaccine, Unspecified Formulation 07/31/2010, 06/22/2011, 07/18/2012, 07/03/2013 Influenza Virus Vaccine Quadrivalant, Flublok 05/13/2020, 06/11/2021 Influenza, Split (Incl. Purified Surface Antigen) 06/25/2020 Pneumococcal Conjugate Vaccine 20 Valent 12/14/2023 Pneumococcal Polysaccharide 23 Valent 07/18/2012, 05/08/2019 Quadrivalent Influenza High Dose 06/03/2023 Td (Adult), Absorbed 11/03/1996 Health Maintenance Topic Date Due RSV or 60+ (1 - Risk 60-74 years 1-dose series) Never done COVID-19 Vaccine (1 - 2023- season) Never done Wellness Exam Medicare 12/14/2024 DTaP/TDaP/Td (1 - Tdap) 04/24/2025 (Originally 11/04/1996) Zoster (1 of 2) 04/24/2025 (Originally 2008) Influenza Vaccine (1) 2025 Low Dose Lung Cancer Screening 03/14/2026 Colon Cancer Screening 01/12/2028 Hepatitis C Screening Completed AAA Screening Completed Pneumococcal Vaccine 50+ Completed Meningococcal B Vaccine Aged Out Hepatitis B Vaccine Aged Out Patient Care Team: Cr Resendez MD as PCP - General (Family Medicine) Macario Pryor MD as PCP - Hematology/Oncology (Internal Medicine-Medical Oncology) Jan Sin MD (Internal Medicine-Cardiovascular Disease) Additional issues addressed today: Review of Systems Constitutional: Positive for appetite change and fatigue. Negative for activity change, chills, diaphoresis and fever. HENT: Negative for trouble swallowing and voice change. Eyes: Negative for visual disturbance. Respiratory: Negative for cough and shortness of breath. Cardiovascular: Negative for chest pain and palpitations. Gastrointestinal: Negative for diarrhea, nausea and vomiting. Musculoskeletal: Negative for gait problem and myalgias. Skin: Negative for rash. Neurological: Negative for dizziness and headaches. Psychiatric/Behavioral: Negative for decreased concentration, dysphoric mood, sleep disturbance andsuicidal ideas. The patient is not nervous/anxious. OBJECTIVE: Physical Exam Vitals reviewed. Constitutional: General: He is not in acute distress. Appearance: He is well-developed. He is not diaphoretic. HENT: Head: Normocephalic and atraumatic. Right Ear: There is impacted cerumen. Left Ear: There is impacted cerumen. Eyes: Pupils: Pupils are equal, round, and reactive to light. Cardiovascular: Rate and Rhythm: Normal rate and regular rhythm. Pulmonary: Effort: Pulmonary effort is normal. Breath sounds: Normal breath sounds. No wheezing. Musculoskeletal: Right lower leg: No edema. Left lower leg: No edema. Skin: Findings: No rash. Neurological: General: No focal deficit present. Mental Status: He is alert and oriented to person, place, and time. Mental status is at baseline. Psychiatric: Behavior: Behavior normal. Thought Content: Thought content normal. Judgment: Judgment normal. Subjective: Rl Steward is a 64 y.o. male who presents for evaluation of a plugged ear. He noticed the symptoms in both ears, 3 weeks ago. Rl denies ear pain. Patients past medical, family and social histories were reviewed and updated. There were no changesexcept as noted. Review of Systems Pertinent items are noted in HPI. Objective: BP 124/50 Pulse 76 Temp 98 ??F (36.7 ??C) (Tympanic) Resp 18 Ht 5' 8 (1.727 m) Wt 136 lb9.6 oz (62 kg) SpO2 98% BMI 20.77 kg/m?? General: alert, appears stated age, and cooperative Right Ear: right canal ceruminous Left Ear: left canal ceruminous After removal: normal bilaterally Assessment: Cerumen Impaction, without otitis externa. Plan: Cerumen removed by flushing. Care instructions given. Home treatment: none. Follow up as needed. * Indigo Whitman - 04/23/2025 9:00 AM EDT Venipuncture in the right antecubital vein with 21 gauge needle, length 1 1/2 inch. documented in this encounter Plan of Treatment Scheduled Orders Name Type Priority Associated Diagnoses Orde r Schedule [place] REMOVAL IMPACTED CERUMEN IRRIGATION/LVG UNILAT WI Charge Routine Bilateral impacted cerumen Ordered: 04/23/2025 documented as of this encounter Goals Goal Patient Goal Type Associated Problems Recent Progress Patient-Stated? Author Blood Pressure < 140/90 Blood Pressure 124/50(2024 8:47 AM EDT) No Jun Cruz MD Eat better, exercise, reach an ideal body weight General No Alen, Solo, RMA Stay Tobacco Free Lifestyle No Solo Lowry, RMA LDL Direct < 100 Result Component No Abdiaziz Cheng MD documented as of this encounter Procedures Procedure Name Priority Date/Time Associated Diagnosis Comments SCANNED LABS 05/07/2025 4:00 PM EDT SCANNED LABS 05/07/2025 4:00 PM EDT LIPID PANEL REFLEX Routine 04/23/2025 9: 47 AM EDT Encounter for Medicare annual wellness exam Unspecified essential hypertension TSH REFLEX TO FT4 Routine 04/23/2025 9:4 7 AM EDT Encounter for Medicare annual wellness exam Unspecified essential hypertension PROSTATE SPECIFIC ANTIGEN (SCREENING) Routine 04/23/2025 9:47 AM EDT Screening for prostate cancer CBC WITH DIFF Routine 04/23/2025 9:47 AM EDT Encounter for Medicare annual wellness exam HEMOGLOBIN A1C Routine 04/23/2025 9:47 AM EDT Encounter for Medicare annual wellness exam Unspecified essential hypertension COMPREHENSIVE METABOLIC PANEL Routine 04/23/2025 9:47 AM EDT Encounter for Medicare annual wellness exam Unspecified essential hypertension documented in this encounter Results * SCANNED LABS (05/07/2025 4:00 PM EDT) 05/07/2025 4:00 PM EDT us Unknown Provider HEMATOLOGY ORDERABLES Final Res ult * SCANNED LABS (05/07/2025 4:00 PM EDT) 05/07/2025 4:00 PM EDT us Unknown Provider HEMATOLOGY ORDERABLES Final Res ult * PROSTATE SPECIFIC ANTIGEN (SCREENING) (04/23/2025 9:47 AM EDT) Total Psa 0.08 <=4.00 ng/mL 04/23/2025 3:49 PM EDT [facility] Blood VENOUS BLOOD / Unknown Venipuncture / Unknown 04/23/2025 9:47 AM EDT 04/23/2025 9:47 AM EDT Narrative [facility] [employer] [facility] - 04/23/2025 3:49 PM EDT The Ricky Elecsys total PSA electrochemiluminescence (ECLIA) immunoassay is used. Results obtained with different test methods or kits cannot be used interchangeably. The Ricky method is approved for use as an aid in the detection of prostate cancer when used in conjunction with a digital rectal exam in individuals with a prostate aged 50 years or older. The assay is also indicated for the serial measurement of PSA to aid in the prognosis and management of prostate cancer patients. Elevated tPSA concentrations can only suggest the presence of prostate cancer until biopsy is performed. Levels may also be elevated in benign prostatic hyperplasia or inflammatory conditions of the prostate. us Cr Resendez MD CHEMISTRY ORDERABLES Final Res ult [facility] [employer] [address] [facility] , [place] [address] * LIPID PANEL REFLEX (04/23/2025 9:47 AM EDT) Cholesterol 98 <200 mg/dL 04/23/2025 4:37 PM EDT [facility] Comment: < 200 Desirable 200 - 239 Borderline High >= 240 High Triglyceride 38 <150 mg/dL 04/23/2025 4:37 PM EDT [facility] Comment: < 150 Normal 150 - 199 Borderline High 200 - 499 High >= 500 Very High HDL 40 >=40 mg/dL 04/23/2025 4:37 PM EDT [facility] Comment: > 60 Optimal 40 - 60 Acceptable < 40 Low LDL Calculated 47 <100 mg/dL 04/23/2025 4:37 PM EDT [facility] Comment: < 100 Optimal 100 - 129 Near or above optimal 130 - 159 Borderline High 160 - 189 High >= 190 Very High The National Institutes of Health (NIH) equation is used for all lipid panels that report calculated LDL (LDL-C). Non-HDL-C Calculated 58 <=129 mg/dL 04/23/2025 4:37 PM EDT [facility] [employer] [facility] Comment: <130 Desirable 130-159 Above Desirable 160-189 Borderline High 190-219 High >= 220 Very High Fasting Specimen? Yes None 025 4:37 PM EDT [facility] [employer] [facility] Blood VENOUS BLOOD / Unknown Venipuncture / Unknown 04/23/2025 9:47 AM EDT 04/23/2025 9:47 AM EDT Cr Resendez MD CHEMISTRY ORDERABLES Final Res ult Performing Organization Address [facility] de Phone Number [facility] [address] [facility] , [place] [id number] * TSH REFLEX TO FT4 (04/23/2025 9:47 AM EDT) TSH Reflex 0.889 0.270 - 4.200 mcIU/mL 04/23/2025 4:37 PM EDT [facility] [employer] [facility] Blood VENOUS BLOOD / Unknown Venipuncture / Unknown 04/23/2025 9:47 AM EDT 04/23/2025 9:47 AM EDT Narrative [facility] - 04/23/2025 4:37 PM EDT Ingestion of fernanda doses of biotin (>5 mg/day) taken within 8 hours of drawing blood sample can interfere with this immunoassay test. us Cr Resendez MD CHEMISTRY ORDERABLES Final Res ult Performing Organization Address [facility] de Phone Number [facility] [address] [facility] , [place] [address] * (ABNORMAL) CBC WITH DIFF (04/23/2025 9:47 AM EDT) WBC 7.3 3.7 - 10.3 x10(3)/mcL 04/23/2025 4:08 PM EDT [facility] RBC 4.77 4.60 - 6.10 x10(6)/mcL 04/23/2025 4:08 PM EDT [facility], [facility] Hgb 15.3 13.7 - 17.5 g/dL 04/23/2025 4:08 PM EDT [facility] Hct 46.8 40.0 - 51.0 % 04/23/2025 4:08 PM EDT [facility] MCV 98.1 80.0 - 100.0 fL 04/23/2025 4:08 PM EDT [facility] MCH 32.1 26.0 - 34.0 pg 04/23/2025 4:08 PM EDT [facility] MCHC 32.7 30.7 - 35.5 g/dL 04/23/2025 4:08 PM EDT [facility] RDW 14.9 <=14.9 % 04/23/2025 4:08 PM EDT [facility] Platelet 90(L) 155 - 369 x10(3)/mcL 04/23/2025 4:08 PM EDT [facility] MPV 12.0 8.8 - 12.5 fL 04/23/2025 4:08 PM EDT [facility] Segs 52 % 04/23/2025 4:08 PM EDT [facility] Lymphs 30 % 04/23/2025 4:08 PM EDT [facility] Monos 16 % 04/23/2025 4:08 PM EDT [facility] Eos 0 % 04/23/2025 4:08 PM EDT [facility] Baso 2 % 04/23/2025 4:08 PM EDT [facility] Neut # 3.8 1.6 - 6.1 x10(3)/mcL 04/23/2025 4:08 PM EDT [facility] Lymph # 2.2 1.2 - 3.9 x10(3)/mcL 04/23/2025 4:08 PM EDT [facility] Treutlen # 1.2(H) 0.3 - 0.9 x10(3)/mcL 04/23/2025 4:08 PM EDT [facility] Eos # Manual 0.0 0.0 - 0.5 x10(3)/mcL 04/23/2025 4:08 PM EDT [facility] Baso # Manual 0.1 0.0 - 0.1 x10(3)/mcL 04/23/2025 4:08 PM EDT [facility] Polychrom Slight 04/23/2025 4:08 PM EDT [facility] Jose M Cell Moderate 04/23/2025 4:08 PM EDT [facility] Elliptocyte Occasional 04/23/2025 4:08 PM EDT [facility] Target Cell Occasional 04/23/2025 4:08 PM EDT [facility] Blood VENOUS BLOOD / Unknown Venipuncture / Unknown 04/23/2025 9:47 AM EDT 04/23/2025 9:47 AM EDT us Cr Resendez MD HEMATOLOGY ORDERABLES Final Re sult [facility] [address] [facility] , [place] [address] * (ABNORMAL) COMPREHENSIVE METABOLIC PANEL (04/23/2025 9:47 AM EDT) Sodium 142 136 - 145 mmol/L 04/23/2025 4:37 PM EDT [facility] Potassium 3.9 3.5 - 5.0 mmol/L 04/23/2025 4:37 PM EDT [facility] Chloride 104 98 - 107 mmol/L 04/23/2025 4:37 PM EDT [facility] Total CO2 28 22 - 29 mmol/L 04/23/2025 4:37 PM EDT [facility] Anion Gap 10 7 - 16 mmol/L 04/23/2025 4:37 PM EDT [facility] Calcium 9.8 8.8 - 10.4 mg/dL 04/23/2025 4:37 PM EDT [facility] Glucose Lvl 90 70 - 99 mg/dL 04/23/2025 4:37 PM EDT [facility] BUN 13 8 - 23 mg/dL 04/23/2025 4:37 PM EDT [facility] Creatinine 0.84 0.67 - 1.30 mg/dL 04/23/2025 4:37 PM EDT [facility] Albumin 3.8 3.2 - 4.6 gm/dL 04/23/2025 4:37 PM EDT [facility] Total Protein 8.3 6.4 - 8.3 gm/dL 04/23/2025 4:37 PM EDT [facility] Bili Total 1.2 0.2 - 1.4 mg/dL 04/23/2025 4:37 PM EDT [facility] ALT 26 <=41 U/L 04/23/2025 4:37 PM EDT [facility] AST 74(H) <=40 U/L 04/23/2025 4:37 PM EDT [facility] Alk Phos 142(H) 40 - 129 U/L 04/23/2025 4:37 PM EDT [facility] eGFR (CKD-EPIcr 2020) 96 >=60 mL/min/1.7 3 m2 04/23/2025 4:37 PM EDT [facility] Comment:Estimated GFR was ca lculated using the CKD-EPIcr (2020) equation refit without race. The equation is recommended by the National Kidney Foundation - [place] [employer] of Nephrology Task Force. Blood VENOUS BLOOD / Unknown Venipuncture / Unknown 04/23/2025 9:47 AM EDT 04/23/2025 9:47 AM EDT us Cr Resendez MD CHEMISTRY ORDERABLES Final Res ult [facility] [address] [facility] , [place] [address] * (ABNORMAL) HEMOGLOBIN A1C (04/23/2025 9:47 AM EDT) Hgb A1C 5.7(H) 4.2 - 5.6 % 04/23/2025 5:18 PM EDT [facility] Est. Avg Glucose 117 mg/dL 04/23/2025 5:18 PM EDT [facility], [facility] Blood VENOUS BLOOD / Unknown Venipuncture / Unknown 04/23/2025 9:47 AM EDT 04/23/2025 9:47 AM EDT Narrative [facility] - 04/23/2025 5:18 PM EDT REFERENCE RANGE: Normal: 4.0-5.6% Pre-diabetes: 5.7-6.4% Provisional diagnosis of diabetes: >6.4% Hgb F>10% and anything which shortens red cell survival, such as hemolytic anemia, or unstable hemoglobin variants such as HbSS, HbSC, or HbCC, will lower the HbA1c value associated with a given level of glycemic control. us Cr Resendez MD CHEMISTRY ORDERABLES Final Res ult [facility] [address] [facility] , [place] [address] documented in this encounter Visit Diagnoses Diagnosis Encounter for Medicare annual wellness exam- Primary Routine general medical examination at a health care facility Hepatocellular carcinoma (HCC) Malignant neoplasm of liver, primary Chronic systolic congestive heart failure (HCC) Chronic systolic heart failure Mixed simple and mucopurulent chronic bronchitis (HCC) Other chronic bronchitis Unspecified essential hypertension Screening for prostate cancer Special screening for malignant neoplasm of prostate Bilateral impacted cerumen Impacted cerumen documented in this encounter Discontinued Medications Medication Sig Discontinue Reason Start Date End Da te tamsulosin (FLOMAX) 0.4 mg Oral CapsuleIndications:Kid will stones Take 1 Capsule by mouth daily. Patient Reported not taking medication 08/02/2023 04/23/2025 coQ10, ubiquinol, 100 mg Oral Capsule 100 mg. Patient Reported not taking medication 01/11/2024 04/23/2025 sacubitriL-valsartan (ENTRESTO) 24-26 mg Oral Tablet Take 1 Tablet by mouth twice daily. Patient Reported not taking medication 08/04/2024 04/23/2025 oxyCODONE 10 mg Oral Tablet TAKE 1 TABLET BY ORAL ROUTE 4 TIMES A DAY FOR 28 DAYS M54.17 Patient Reported not taking medication 09/01/2024 04/23/2025 atorvastatin (LIPITOR) 20 mg Oral TabletIndications:S/P CABG x 4 Take 1 Tablet by mouth nightly. Patient Reported not taking medication 01/30/2025 04/23/2025 documented as of this encounter Historical Medications * This list may reflect changes made after this encounter. polyethylene glycol 3350 4 gram Oral Powder in Packet 03/21/2025 senna (SENOKOT) 8.6 mg Oral Tablet Take 17.2 mg by mouth nightly. 03/21/2025 prochlorperazine (COMPAZINE) 10 mg Oral Tablet Take 10 mg by mouth every 6 hours as needed. for nausea and vomiting 03/27/2025 potassium chloride 20 mEq Oral Tablet Sustained Release Take 0.5 Tablets by mouth daily. 03/29/2025 ondansetron (ZOFRAN-ODT) 4 mg Oral Tablet, Rapid Dissolve Dissolve 4 mg by mouth every 6 hours as needed. 03/21/2025 megestroL (MEGACE) 400 mg/10 mL (40 mg/mL) Oral Suspension TAKE 20 ML BY MOUTH ONCE DAILY. SHAKE WELL 04/10/2025 HYDROmorphone (DILAUDID) 4 mg Oral Tablet Take 4 mg by mouth. added in this encounter Additional Health Concerns Assessment Noted Time PHQ-9 Depression Total Score: 15 025 8:00 AM EDT A fall risk assessment has been complete d for the patient 06/20/2024 1:28 PM EDT PHQ-2 Depression Total Score: 3 04/23/20 25 8:00 AM EDT documented as of this encounter Care Teams Laundry Pricing Clerk Relationship Specialty Start Date End Date Macario Pryor MD [address] [place] [address] TRIST[place] NAILS [id number] PCP - Hematology/Oncology Internal Medicine-Medical Oncology 11/12/15 Cr Resendez MD [address] [place] [address] TRIST[place] MARTINEZ [address] PCP - General Family Medicine 11/24/21 Jan Sin MD [address] [place] [address] TRIST[place] NAILS [id number] Internal Medicine-Cardiovascul ar Disease 08/28/14 documented as of this encounter
--- OUTSIDE RECORDS SUMMARY | 2025-04-23 09:30 | XMS_ITS | Encounter Summary ---
Author Organization [place] [address] Care Team Providers Care Quality Assurance Monitor Name Role Phone Jan Sin MD Unavailable [phone] Macario Pryor MD Unavailable Cr Rodriguez MD Primary Care Provider [phone] Reason for Visit * Reason Comments Care Management - Face To Face Care Transition Advance Care Planning Encounter Details Date Type Department Care Team (Latest Contact Info) Description 04/23/2025 9:30 AM EDT Clinical Support [facility] [place] [facility] [address] [place] [address] Elizabeth Reynoso, NIURKA Encounter for support [...] presents for follow up visit with Office Market Director (OCC) Reason for visit: Advanced Care Planning Visit Type: Face to Face Assessment: financial aid coordinator met with patient and spouse to [...] Educated patient on: Advanced Care Planning Handouts: [place] Living Will x 2 copies Handouts provided in person Care Coordination Business Card Goals: One-time assessment Next Steps: Market Director contact information given / reviewed Notes: No identified SDOH concerns after SDOH assessment review documented in this encounter Miscellaneous Notes * ACP (Advance Care Planning) - Elizabeth Reynoso RN - 04/23/2025 9:30 AM EDT Advance Care Planning discussion: ACP discussion: This tag writer and patient addressed ACP including explanation [...] documented as of this encounter Care Teams Quality Assurance Monitor Relationship Specialty Start Date End Date Macario Pryor MD [address] [place] [address] TRIST[place] NAILS [address] PCP - Hematology/Oncology Internal Medicine-Medical Oncology 11/12/15 Cr Resendez MD [address] [place] [address] TRISTIAN MARTINEZ [address] PCP - General Family Medicine 11/24/21 Jan Sin MD [address] [place] [address] TRIST[place] NAILS [address] Internal Medicine-Cardiovascul ar Disease 08/28/14 documented as of this encounter
--- OUTSIDE RECORDS SUMMARY | 2025-05-01 16:53 | XMS_ITS | Encounter Summary ---
Author Organization Healthcare Address [address] [place] [address] Care Team Providers Care Personnel Consultant Name Role Phone Isabella Saucedo Phong TRANSPORT ANALYST Unavailable [phone] Jeannie Mcmillan RN Unavailable [phone] Ebony Shoemaker Unavailable [phone] Pcp, No Primary Care Provider Unavailabl e Rodney Gonzáles MD Unavailable [phone] Reason for Referral * Consultation (Routine) - Authorized Specialty Diagnoses / Procedures Referred By Contac t Referred To Contact Diagnoses RUQ abdominal pain Ang Will MD [address] [place] [address] Phone: tel: fax: Referral ID Status Reason Start Date Expiration Date V isits Requested Visits Authorized [id number] Authorized 05/05/2025 11/04/2026 1 1 Reason for Visit * Reason Comments Abdominal Pain * Auth/Cert (Routine) Specialty Diagnoses / Procedures Referred By Contarjun t Referred To Contact Diagnoses Abdominal pain Liver Cancer Britney Rai MD [address] [place] [address] Phone: tel: fax: PAV A Inpatient [address] [place] [address] Referral ID Status Reason Start Date Expiration Date Visits Re quested Visits Authorized [id number] 1 1 Encounter Details Date Type Department Care Team (Latest Contact Info) Description 05/01/2025 4:53 PM EDT - 05/05/2025 2:45 PM EDT Hospital Encounter [facility] A Inpatient [address] [place] [address] Willy Saleh MD [address] [place] [address] Britney Rai MD [address] [place] [address] Ang Will MD [address] [place] [address] Generalized abdominal pain (Primary Dx); [...] any time in the past 12 [facility], were you homeless or living in a detention (including now)? No 05/02/2025 [facility] Utilities Answer Date Recorded In the past [...] Will MD PCP name and Address: Pcp, [address] [address] Referring provider name and address: Cr Lazo MD [address] [place] [address] Chief Concern, Brief History of Present Illness, and Hospital Course Rl Steward is a 65 y.o. male PMHx of COPD, tobacco dependence, ischemic heart disease, coronaryartery disease, anxiety, depression, chronic back pain, decompensated cirrhosis, and newly diagnosed hepatocellular carcinoma that presented to the emergency department as a transfer from [facility] with RUQ pain and concern for cholecystitis [...] #Cancer related pain (POA0 -Receiving chemotherapy at [facility]. Last dose of chemo was on 03/29. [...] overall morbidity & mortality. -Monitor albumin -Consult Mutual Fund Manager -Continue megace #Nicotine dependence (POA) -Smokes about [...] Ellipta 100-62.5-25 MCG/ACT aerosol powder Generic drug: Hcrlwzkqssq-Cftewtmrk-Vfrreo INHALE 1 PUFF INTO THE LUNGS DAILY [...] Flowsheets (Taken 05/05/2025 0921) Pain Management Interventions: xmgbzr-kju-uxxvz dosing utilized medication (see MAR) care clustered [...] Flowsheets (Taken 05/05/2025 0921) Pain Management Interventions: tulgei-ull-cnnoi dosing utilized medication (see MAR) care clustered [...] Flowsheets (Taken 05/05/2025 0921) Pain Management Interventions: blmeyr-cdy-fbwuk dosing utilized medication (see MAR) care clustered [...] Comfort Flowsheets (Taken 05/05/202548) Pain Management Interventions: ghanyw-vwe-peitu dosing utilized care clustered pain management plan [...] Plan Flowsheets (Taken 05/05/202548) Pain Management Interventions: hjfytu-fqt-pcmmy dosing utilized care clustered pain management plan [...] Inhalation, 4x daily PRN, Crane, Lexi L, TRANSPORT ANALYST calcium carbonate (Tums) chewable tablet 500 mg, 500 mg, Oral, q4h PRN, Crane, Lexi L, TRANSPORT ANALYST cyclobenzaprine (Flexeril) tablet 5 mg, 5 mg, Oral, BID PRN, Crane, Lexi L, TRANSPORT ANALYST, 5 mg at 736 escitalopram (Lexapro) tablet 20 mg, 20 mg, Oral, Daily, Crane, Lexi L, TRANSPORT ANALYST, 20 mg at 05/04/25826 furosemide (Lasix) tablet 20 mg, 20 mg, Oral, Daily, Crane, Lexi L, TRANSPORT ANALYST, 20 mg at 09/05/25 0827 HYDROmorphone (Dilaudid) injection 0.5 mg, 0.5 mg, Intravenous, q4h PRN, Rosa Maria Lexi L, TRANSPORT ANALYST, 0.5 mg at 05/04/25 1405 HYDROmorphone (Dilaudid) tablet 3 mg, 3 mg, Oral, q4h PRN, Rosa Maria Lexi L, TRANSPORT ANALYST, 3 mg at 05/03/25 1615 Tiotropium Chambers Monohydrate (Spiriva Respimat) 2.5 MCG/ACT inhaler 2 puff, 2 puff, Inhalation, Daily, 2 puff at 05/04/25 0828 AND mometasone-formoterol (Dulera 100) 100-5 MCG/ACT inhaler 2 puff, 2 puff, Inhalation, BID, Bhavya Craneoya L, TRANSPORT ANALYST, 2 puff at 05/04/25 0828 nicotine (Nicoderm CQ) 21 MG/24HR patch 1 patch, 1 patch, Transdermal, Daily, Lexi Crane, TRANSPORT ANALYST,1 patch at 05/04/25 0827 piperacillin-tazobactam (Zosyn) 4.5 g in sodium chloride 0.9% 100 mL IVPB (vial adapter required), 4.5 g, Intravenous, q6h, Saadia Cranea L, TRANSPORT ANALYST, Last Rate: 36.7 mL/hr at 05/04/25 1405, 4.5 g at 05/04/25 1405 [COMPLETED] Insert peripheral IV, , , Once AND [COMPLETED] Saline lock IV, , , Once AND sodium chloride 0.9 % flush 10 mL, 10 mL, Intravenous, q12h, 10 mL at 05/04/25 0121 AND sodium chloride 0.9 % flush 10 mL, 10 mL, Intravenous, PRN, Bhavya Craneoya L, TRANSPORT ANALYST Cosigned by Tremaine Waddell MD at 05/07/2025 8:26 AM EDT Associated attestation - Tremaine Waddell MD - 05/07/2025 8:26 AM EDT I saw and evaluated the patient with the resident/fellow. I discussed the case with the resident/fellow and agree with the findings and plan as documented. * Progress Notes - Agn Will MD - 05/04/2025 12:39 PM EDT [...] the emergency department as a transfer from [facility] with RUQ pain and concern for cholecystitis [...] #Cancer related pain (POA0 -Receiving chemotherapy at [facility]. Last dose of chemo was on 03/29. [...] overall morbidity & mortality. -Monitor albumin -Consult Mutual Fund Manager -Continue megace #Nicotine dependence (POA) -Smokes about [...] Note Rl Steward 65 y.o. male CSN: [id number] Admission: 05/01/2025 4:53 PM Primary Problem: Abdominal [...] Inhalation, 4x daily PRN, Crane, Lexi L, TRANSPORT ANALYST calcium carbonate (Tums) chewable tablet 500 mg, 500 mg, Oral, q4h PRN, Crane, Lexi L, TRANSPORT ANALYST cyclobenzaprine (Flexeril) tablet 5 mg, 5 mg, Oral, BID PRN, Crane, Lexi L, TRANSPORT ANALYST, 5 mg at 736 escitalopram (Lexapro) tablet 20 mg, 20 mg, Oral, Daily, Crane, Lexi L, TRANSPORT ANALYST, 20 mg at 05/03/25 08 furosemide (Lasix) tablet 20 mg, 20 mg, Oral, Daily, Crane, Lexi L, TRANSPORT ANALYST, 20 mg at 05/03/25 0802 HYDROmorphone (Dilaudid) injection 0.5 mg, 0.5 mg, Intravenous, q4h PRN, Crane, Lexi L, TRANSPORT ANALYST, 0.5 mg at 05/03/25 1406 HYDROmorphone (Dilaudid) tablet 3 mg, 3 mg, Oral, q4h PRN, Crane, Lexi L, TRANSPORT ANALYST, 3 mg at 05/02/25 0736 Tiotropium Chambers Monohydrate (Spiriva Respimat) 2.5 MCG/ACT inhaler 2 puff, 2 puff, Inhalation, Daily, 2 puff at 05/03/25 0803 AND mometasone-formoterol (Dulera 100) 100-5 MCG/ACT inhaler 2 puff, 2 puff, Inhalation, BID, Crane, Lexi L, TRANSPORT ANALYST, 2 puff at 05/03/25 0804 nicotine (Nicoderm CQ) 21 MG/24HR patch 1 patch, 1 patch, Transdermal, Daily, Crane, Lexi L, TRANSPORT ANALYST,1 patch at 05/03/25 0802 piperacillin-tazobactam (Zosyn) 4.5 g in sodium chloride 0.9% 100 mL IVPB (vial adapter required), 4.5 g, Intravenous, q6h, Crane, Lexi L, TRANSPORT ANALYST, Last Rate: 36.7 mL/hr at 05/03/25 1230, 4.5 g at 05/03/25 1230 [COMPLETED] Insert peripheral IV, , , Once AND [COMPLETED] Saline lock IV, , , Once AND sodium chloride 0.9 % flush 10 mL, 10 mL, Intravenous, q12h, 10 mL at 05/02/25 2325 AND sodium chloride 0.9 % flush 10 mL, 10 mL, Intravenous, PRN, Crane, Lexi L, TRANSPORT ANALYST Cosigned by Tremaine Waddell MD at 05/07/2025 [...] the emergency department as a transfer from [facility] with RUQ pain and concern for cholecystitis [...] #Cancer related pain (POA0 -Receiving chemotherapy at [facility]. Last dose of chemo was on 03/29. [...] overall morbidity & mortality. -Monitor albumin -Consult Mutual Fund Manager -Continue megace #Nicotine dependence (POA) -Smokes about [...] tobacco dependence, and hepatocellular carcinoma presenting to [facility] on 05/01/2025 with right upper quadrant abdominal [...] Inhalation 4x daily PRN Crane, Lexi L, TRANSPORT ANALYST calcium carbonate (Tums) chewable tablet 500 mg 500 mg Oral q4h PRN Crane, Lexi L, TRANSPORT ANALYST cyclobenzaprine (Flexeril) tablet 5 mg 5 mg Oral BID PRN Rosa Maria Lexi L, TRANSPORT ANALYST 5 mg at 05/02/25 0736 escitalopram (Lexapro) tablet 20 mg 20 mg Oral Daily Saadia Cranea L, TRANSPORT ANALYST 20 mg at 05/03/25 0802 furosemide (Lasix) tablet 20 mg 20 mg Oral Daily Crane, Lexi L, TRANSPORT ANALYST 20 mg at 05/03/25 0802 HYDROmorphone (Dilaudid) injection 0.5 mg 0.5 mg Intravenous q4h PRN Saadia Cranea L, TRANSPORT ANALYST 0.5 mg at05/03/25 1406 HYDROmorphone (Dilaudid) tablet 3 mg 3 mg Oral q4h PRN Saadia Cranea L, TRANSPORT ANALYST 3 mg at 05/03/25 1615 Tiotropium Chambers Monohydrate (Spiriva Respimat) 2.5 MCG/ACT inhaler 2 puff 2 puff Inhalation Daily Saadia Cranea Vega, TRANSPORT ANALYST 2 puff at 05/03/25 0803 And mometasone-formoterol (Dulera 100) 100-5 MCG/ACT inhaler 2 puff 2 puff Inhalation BID Saadia Cranea Vega, TRANSPORT ANALYST 2 puff at 05/03/25 0804 nicotine (Nicoderm CQ) 21 MG/24HR patch 1 patch 1 patch Transdermal Daily Saadia Cranea Vega, TRANSPORT ANALYST 1 patch at 05/03/25 0802 piperacillin-tazobactam (Zosyn) 4.5 g in sodium chloride 0.9% 100 mL IVPB (vial adapter required) 4.5 g Intravenous q6h Rosa Maria Lexi Vega, TRANSPORT ANALYST 36.7 mL/hr at 05/03/25 1230 4.5 g at 09/04/25 1230 sodium chloride 0.9 % flush 10 mL 10 mL Intravenous q12h Lexi Crane, TRANSPORT ANALYST 10 mL at 05/02/25 2325 And sodium chloride 0.9 % flush 10 mL 10 mL Intravenous PRN Lexi Crane TRANSPORT ANALYST Cosigned by Kasey Blackwell MD at 05/03/2025 [...] hepatocellular carcinoma. We have been consultedas the moss gatherer have concerns that his pain is related [...] patient and his Kasey Blackwell MD, FACS landscape engineer Trauma Acute Care Surgery * Significant Event [...] the emergency department as a transfer from [facility] with RUQ pain and concern for cholecystitis [...] #Cancer related pain (POA0 -Receiving chemotherapy at [facility]. Last dose of chemo was on 03/29. [...] overall morbidity & mortality. -Monitor albumin -Consult Mutual Fund Manager -Continue megace #Nicotine dependence (POA) -Smokes about [...] Note Rl Steward 65 y.o. male CSN: [id number] Admission: 05/01/2025 4:53 PM Primary Problem: Abdominal pain Abrasive Water Jet Cutter Operator reviewed chart and spoke with patient and spouse at bedside to complete this Initial Case Management Assessment. PCP: Cr Resendez MD in [place], [place] Emergency Contact: Extended Emergency Contact Information Primary Emergency Contact: Ashley Steward [facility] Relation: Spouse Preferred language: Micronesian Dude Ranch Manager needed? No Insurance: Primary Visit Coverage Payer Plan Sponsor Code Group Number Group Name MEDICARE MEDICARE A & B Primary Visit Coverage Subscriber Subscriber ID Subscriber Name Subscriber SSN Subscriber Address [id number] [id number] [address] [place] [address] Secondary Visit Coverage Payer Plan Sponsor Code Group Number Group Name [place] [facility] Secondary Visit Coverage Subscriber Subscriber ID Subscriber Name Subscriber SSN Subscriber Address [id number] [address] [phone] [address] [place] [address] Patient information: Primary Caregiver: Self Support System: Immediate family Daily Living Activities: Functional Status: Independent Living Arrangements: Spouse/Significant other Type of Residence: Private residence, Multi Level (stays on main floor; 2 steps for entry) [address] [facility] [address] Current DME: Equipment Currently Used at Home: none Income Information: Income/Expense Information: Income meets expenses Anticipated Discharge Date: TBD Patient's Discharge Goal: Return home Assistance Available at Discharge: Spouse & son Discharge Transport: Spouse Follow Up Transport: Spouse/Son Home Health / Home Infusion / Outpatient Dialysis Services: None Living Will/Advance Directive/Power of Fire Engineer /Guardian: None Additional Comments: Pt confirmed address, EC, and insurance. Pt sees Cr Resendez in [place], [place] for primary care. Pt lives with [...] possible cholecystitis and was subsequently transferred to [facility] for further evaluation. Seen by [...] concerns. Keaton Ponce MD PGY-5 Gastroenterology Fellow [facility] [1] Past Medical History: Diagnosis Date COPD [...] Daily furosemide, 20 mg, Oral, Daily Tiotropium Chambers Monohydrate, 2 puff, Inhalation, Daily And mometasone-formoterol, [...] the emergency department as a transfer from [facility] with RQU pain. Mr. Steward states that [...] Of note he is receiving chemotherapy at [facility]. He has only received 1 dose of [...] Food Insecurity: Patient Declined (12/07/2024) Received from [facility] Hunger Vital Sign Within the past 12 months, you worried that your food would run out before you got the money to buymore.: Patient declined Within the past 12 months, the food you bought just didn't last and you didn't have money to get more.: Patient declined Transportation Needs: Patient Declined (12/07/2024) Received from [facility] PRAPARE - Transportation Lack of Transportation (Medical): Patient declined Lack of Transportation (Non-Medical): Patient declined Physical Activity: Not on file Stress: Not on file Social Connections: Not on file Intimate Partner Violence: Not on file Housing Stability: Patient Declined (12/07/2024) Received from [facility] Housing Stability Vital Sign In the last 12 months, was there a time when you were not able to pay the mortgage or rent on time?: Patient declined In the past 12 months, how many times have you moved where you were living?: 0 At any time in the past 12 months, were you homeless or living in a detention (including now)?: Patient declined ROS: Review of [...] Abnormal Ventricular Rate 70 Atrial Rate 70 HI Interval 138 QRSD Interval 86 QT Interval 414 QTC Interval 447 P Whiting 50 R Whiting -53 T Wave Whiting 43 Diagnosis Normal sinus rhythm with sinus [...] the emergency department as a transfer from [facility] with RQU pain and concern for cholecystitis [...] #Cancer related pain (POA0 -Receiving chemotherapy at [facility]. Last dose of chemo was on 03/29. [...] overall morbidity & mortality. -Monitor albumin -Consult Mutual Fund Manager -Continue megace #Nicotine dependence (POA) -Smokes about [...] APRN Department of Internal Medicine Division of [facility] Medicine Secure chat preferred Pager: [phone] [1] Past Medical History: Diagnosis Date COPD [...] None Disposition Admit Admitting/Attending Physician: BRITNEY RAI [[id number]] Provider Care Team: JHOANA 14 [[id number]] Are [...] 05/01/2025 4:52 PM EDT Patient presents from [facility] where he was seen for RUQ [...] - 99 mg/dL 05/04/2025 5:27 AM EDT [facility] BUN, Plasma 11 8 - 23 mg/dL 05/04/2025 5:27 AM EDT [facility] Creatinine, Plasma 0.81 0.70 - 1.20 mg/dL 05/04/2025 5:27 AM EDT [facility] BUN/Creatinine Ratio 14 05/04/2025 5:27 AM EDT [facility] Sodium, Plasma 138 136 - 145 mmol/L 05/04/2025 5:27 AM EDT [facility] Potassium, Plasma 3.3(L) 3.6 - 4.9 mmol/L 05/04/2025 5:27 AM EDT [facility] Chloride, Plasma 106 97 - 107 mmol/L 05/04/2025 5:27 AM EDT [facility] CO2, Plasma 20(L) 22 - 29 mmol/L 05/04/2025 5:27 AM EDT [facility] Anion Gap 12 6 - 16 mmol/L 05/04/2025 5:27 AM EDT [facility] Total Calcium, Plasma 8.5(L) 8.9 - 10.2 mg/dL 05/04/2025 5:27 AM EDT [facility] Total Protein 6.4 6.3 - 7.9 g/dL 05/04/2025 5:27 AM EDT [facility] Albumin, Plasma 2.6(L) 3.5 - 5.2 g/dL 05/04/2025 5:27 AM EDT [facility] AST, Plasma 140(H) 10 - 50 U/L 05/04/2025 5:27 AM EDT [facility] ALT, Plasma 21 10 - 50 U/L 05/04/2025 5:27 AM EDT [facility] Alkaline Phosphatase, Plasma 186(H) 40 - 115 U/L 05/04/2025 5:27 AM EDT [facility] Total Bilirubin, Plasma 2.1(H) 0.2 - 1.1 mg/dL 05/04/2025 5:27 AM EDT [facility] eGFRcr 96.6 mL/min/1.7 3m*2 05/04/2025 5:27 AM EDT [facility] Comment:Reported eGFRcr in m L/min/1.73m2 is based the CKD-EPI 2020 equation that does not use a race coefficient. Blood Venous blood specimen / Unknown Venipuncture / Unknown 05/04/2025 4:33 AM EDT 05/04/2025 4:44 AM EDT us Ang Will MD LAB BLOOD ORDERABLES Courtney vega Result [facility] [address] [place] [address] * (ABNORMAL) CBC W/O Differential (05/04/2025 4:33 AM EDT) WBC Count 4.71 3.70 - 10.30 10*3/uL LAB HEMATOLOGY METHOD 05/04/2025 5:18 AM EDT [facility] RBC Count 4.16(L) 4.60 - 6.10 10*6/uL LAB HEMATOLOGY METHOD 05/04/2025 5:18 AM EDT [facility] HGB 13.1(L) 13.7 - 17.5 g/dL LAB HEMATOLOGY METHOD 05/04/2025 5:18 AM EDT [facility] HCT 38.4(L) 40.0 - 51.0 % LAB HEMATOLOGY METHOD 05/04/2025 5:18 AM EDT [facility] Platelet Count 117(L) 155 - 369 10*3/uL LAB HEMATOLOGY METHOD 05/04/2025 5:18 AM EDT [facility] MCV 92 79 - 98 fL LAB HEMATOLOGY METHOD 05/04/2025 5:18 AM EDT [facility] MCH 31.5 26.0 - 32.0 pg LAB HEMATOLOGY METHOD 05/04/2025 5:18 AM EDT [facility] MCHC 34.1 30.7 - 35.5 g/dL LAB HEMATOLOGY METHOD 05/04/2025 5:18 AM EDT [facility] RDW 15.5(H) 11.5 - 14.5 % LAB HEMATOLOGY METHOD 05/04/2025 5:18 AM EDT [facility] MPV 11.5 8.8 - 12.5 fL LAB HEMATOLOGY METHOD 05/04/2025 5:18 AM EDT [facility] nRBC 0.0 <=0.0 per 100 WBCs LAB HEMATOLOGY METHOD 05/04/2025 5:18 AM EDT [facility] Blood Venous blood specimen / Unknown Venipuncture / Unknown 05/04/2025 4:33 AM EDT 05/04/2025 4:45 AM EDT Ang Will MD LAB BLOOD ORDERABLES Courtney l Result Performing Organization Address City/[facility]/ZIP Co de Phone Number [facility] [address] [place] [address] * (ABNORMAL) Creatine Kinase, Total, Plasma (05/04/2025 4:33 AM EDT) Creatine Kinase, Plasma 33(L) 49 - 320 U/L 05/04/2025 5:[address] [facility] Blood Venous blood specimen / Unknown Venipuncture / Unknown 05/04/2025 4:33 AM EDT 05/04/2025 4:44 AM EDT Ang Will MD LAB BLOOD ORDERABLES Courtney l Result Performing Organization Address [facility] [place] [address] * Phosphatidylethanol (PEth), Whole Blood, Quantitative (05/04/2025 4:33 AM EDT) Pathologist [facility] PEth 16:0/18:2 (PLPEth) <10 ng/mL 05/06/2025 12:20 PM EDT [facility] ([facility]) PEth 16:0/18:1 (POPEth) <10 ng/mL 05/06/2025 12:20 PM EDT [facility] ([facility]) EER Peth See Note 05/06/2025 12:20 PM EDT [facility] ([facility]) PEth Interpretation See Comment 05/06/2025 12:20 PM EDT [facility] ([facility]) Blood Venous blood specimen / Unknown Venipuncture / Unknown 05/04/2025 4:33 AM EDT 05/04/2025 4:42 AM EDT Narrative [facility] ([facility]) - 05/06/2025 12:20 PM EDT PEth 16:0/18:1 (POPEth) Less than 10 ng/mL............Not detected Less than 20 ng/mL............Abstinence or light alcohol consumption 20 - 200 ng/mL................Moderate alcohol consumption Greater than 200 ng/mL........Heavy alcohol consumption or chronic alcohol use (Reference: Hannah Correa and Trice Azevedo 2018 J. Forensic Sci) Reference ranges are not well established. Authorized individuals can access the [employer] Enhanced Report with an [employer] Connect account using the following link. Your local lab can assist you in obtaining the patient report if you don't have a Connect account. [email or web address] Phosphatidylethanol (PEth) is a group of phospholipids [...] developed and its performance characteristics determined by [employer]. It has not been cleared or approved by the U.S. Food and Drug Administration. This test was performed in a CLIA-certified laboratory and is intended for clinical purposes. Performed By: [employer] [address] [place] [address] Loan Consultant: David Marx MD, PhD CLIA Number: [id number] us Ang Will MD LAB REF LAB BLOOD AND FLU ID ORD Final Result [facility]O) [place] [address] * (ABNORMAL) Comprehensive metabolic panel (05/03/2025 4:00 AM EDT) Glucose, Plasma 96 74 - 99 mg/dL 05/03/2025 4:51 AM EDT [facility] BUN, Plasma 13 8 - 23 mg/dL 05/03/2025 4:51 AM EDT [facility] Creatinine, Plasma 0.86 0.70 - 1.20 mg/dL 05/03/2025 4:51 AM EDT [facility] BUN/Creatinine Ratio 15 05/03/2025 4:51 AM EDT [facility] Sodium, Plasma 137 136 - 145 mmol/L 05/03/2025 4:51 AM EDT [facility] Potassium, Plasma 3.6 3.6 - 4.9 mmol/L 05/03/2025 4:51 AM EDT [facility] Chloride, Plasma 103 97 - 107 mmol/L 05/03/2025 4:51 AM EDT [facility] CO2, Plasma 22 22 - 29 mmol/L 05/03/2025 4:51 AM EDT [facility] Anion Gap 12 6 - 16 mmol/L 05/03/2025 4:51 AM EDT [facility] Total Calcium, Plasma 9.0 8.9 - 10.2 mg/dL 05/03/2025 4:51 AM EDT [facility] Total Protein 7.1 6.3 - 7.9 g/dL 05/03/2025 4:51 AM EDT [facility] Albumin, Plasma 3.0(L) 3.5 - 5.2 g/dL 05/03/2025 4:51 AM EDT [facility] AST, Plasma 205(H) 10 - 50 U/L 05/03/2025 4:51 AM EDT [facility] Comment:Hemolyzed, result ma y be falsely increased. ALT, Plasma 23 10 - 50 U/L 05/03/2025 4:51 AM EDT [facility] Alkaline Phosphatase, Plasma 220(H) 40 - 115 U/L 05/03/2025 4:51 AM EDT [facility] Total Bilirubin, Plasma 1.7(H) 0.2 - 1.1 mg/dL 05/03/2025 4:51 AM EDT [facility] eGFRcr 94.9 mL/min/1.7 3m*2 05/03/2025 4:51 AM EDT [facility] Comment:Reported eGFRcr in m L/min/1.73m2 is based the CKD-EPI 2020 equation that does not use a race coefficient. Blood Venous blood specimen / Unknown Venipuncture / Unknown 05/03/2025 4:00 AM EDT 05/03/2025 4:21 AM EDT Ang Will MD LAB BLOOD ORDERABLES Courtney ferrari Result [facility] [address] [place] [address] * (ABNORMAL) CBC W/O Differential (05/03/2025 4:00 AM EDT) WBC Count 5.46 3.70 - 10.30 10*3/uL LAB HEMATOLOGY METHOD 05/03/2025 4:34 AM EDT [facility] RBC Count 4.39(L) 4.60 - 6.10 10*6/uL LAB HEMATOLOGY METHOD 05/03/2025 4:34 AM EDT [facility] HGB 14.0 13.7 - 17.5 g/dL LAB HEMATOLOGY METHOD 05/03/2025 4:34 AM EDT [facility] HCT 41.1 40.0 - 51.0 % LAB HEMATOLOGY METHOD 05/03/2025 4:34 AM EDT [facility] Platelet Count 122(L) 155 - 369 10*3/uL LAB HEMATOLOGY METHOD 05/03/2025 4:34 AM EDT [facility] MCV 94 79 - 98 fL LAB HEMATOLOGY METHOD 05/03/2025 4:34 AM EDT [facility] MCH 31.9 26.0 - 32.0 pg LAB HEMATOLOGY METHOD 05/03/2025 4:34 AM EDT [facility] MCHC 34.1 30.7 - 35.5 g/dL LAB HEMATOLOGY METHOD 05/03/2025 4:34 AM EDT [facility] RDW 15.3(H) 11.5 - 14.5 % LAB HEMATOLOGY METHOD 05/03/2025 4:34 AM EDT [facility] MPV 12.5 8.8 - 12.5 fL LAB HEMATOLOGY METHOD 05/03/2025 4:34 AM EDT [facility] nRBC 0.0 <=0.0 per 100 WBCs LAB HEMATOLOGY METHOD 05/03/2025 4:34 AM EDT [facility] Blood Venous blood specimen / Unknown Venipuncture / Unknown 05/03/2025 4:00 AM EDT 05/03/2025 4:24 AM EDT us Ang Will MD LAB BLOOD ORDERABLES Courtney l Result [facility] [address] [place] [address] * (ABNORMAL) Bilirubin, direct (05/02/2025 1:42 PM EDT) Conjugated Bilirubin, Plasma 0.7(H) <=0.3 mg/dL 05/02/2025 2:51 PM EDT [facility] Blood Venous blood specimen / Unknown Venipuncture / Unknown 05/02/2025 1:42 PM EDT 05/02/2025 2:10 PM EDT us Ang Will MD LAB BLOOD ORDERABLES Courtney l Result [facility] [address] [place] [address] * (ABNORMAL) Bilirubin, direct (05/02/2025 2:07 AM EDT) Conjugated Bilirubin, Plasma 1.1(H) <=0.3 mg/dL 05/02/2025 3:20 PM EDT [facility] Blood Venous blood specimen / Unknown Venipuncture / Unknown 05/02/2025 2:07 AM EDT 05/02/2025 2:20 AM EDT Ang Will MD LAB BLOOD ORDERABLES Courtney l Result Performing Organization Address [facility]/ZIP Co de Phone Number [facility] [address] [place] [address] * (ABNORMAL) Lactate, venous (05/02/2025 2:07 AM EDT) Lactate, Venous, Whole Blood 3.0(H) 0.5 - 2.2 mmol/L LAB HEMATOLOGY METHOD 05/02/2025 2:21 AM EDT [facility] Blood Venous blood specimen / Unknown Venipuncture / Unknown 05/02/2025 2:07 AM EDT 05/02/2025 2:19 AM EDT us Lexi Crane APRN LAB BLOOD ORDERABLES Final Re sult Performing Organization Address [facility]/ZIP Co de Phone Number [facility] [address] [place] [address] * (ABNORMAL) Prothrombin Time/INR (05/02/2025 2:07 AM EDT) Prothrombin Time 14.5(H) 12.0 - 14.3 sec LAB COAGULATION METHOD 05/02/2025 2:44 AM EDT [facility] INR 1.1 0.9 - 1.1 LAB COAGULATION METHOD 05/02/2025 2:44 AM EDT [facility] Blood Venous blood specimen / Unknown Venipuncture / Unknown 05/02/2025 2:07 AM EDT 05/02/2025 2:20 AM EDT Narrative [facility] - 05/02/2025 2:44 AM EDT OPTIMAL INR RANGES FOR PATIENT ON ORAL ANTICOAGULANT THERAPY Prevention of venous thromboembolism INR 2.0 to 3.0 In patients with heart disease: Atrial fibrillation INR 2.0 to 3.0 Valvular heart disease INR 2.0 to 3.0 Tissue heart valves INR 2.0 to 3.0 Mechanical prosthetic valves INR 2.5 to 3.5 Prevention of recurrent VT INR 2.5 to 3.5 us Lexi Crane TRANSPORT ANALYST LAB BLOOD ORDERABLES Final Re sult [facility] [address] [place] [address] * (ABNORMAL) Comprehensive metabolic panel (05/02/2025 2:07 AM EDT) Glucose, Plasma 106(H) 74 - 99 mg/dL 05/02/2025 2:51 AM EDT [facility] BUN, Plasma 16 8 - 23 mg/dL 05/02/2025 2:51 AM EDT [facility] Creatinine, Plasma 0.84 0.70 - 1.20 mg/dL 05/02/2025 2:51 AM EDT [facility] BUN/Creatinine Ratio 19 05/02/2025 2:51 AM EDT [facility] Sodium, Plasma 136 136 - 145 mmol/L 05/02/2025 2:51 AM EDT [facility] Potassium, Plasma 3.8 3.6 - 4.9 mmol/L 05/02/2025 2:51 AM EDT [facility] Chloride, Plasma 101 97 - 107 mmol/L 05/02/2025 2:51 AM EDT [facility] CO2, Plasma 25 22 - 29 mmol/L 05/02/2025 2:51 AM EDT [facility] Anion Gap 10 6 - 16 mmol/L 05/02/2025 2:51 AM EDT [facility] Total Calcium, Plasma 9.1 8.9 - 10.2 mg/dL 05/02/2025 2:51 AM EDT [facility] Total Protein 6.5 6.3 - 7.9 g/dL 05/02/2025 2:51 AM EDT [facility] Albumin, Plasma 2.8(L) 3.5 - 5.2 g/dL 05/02/2025 2:51 AM EDT [facility] AST, Plasma 241(H) 10 - 50 U/L 05/02/2025 2:51 AM EDT [facility] ALT, Plasma 23 10 - 50 U/L 05/02/2025 2:51 AM EDT [facility] Alkaline Phosphatase, Plasma 200(H) 40 - 115 U/L 05/02/2025 2:51 AM EDT [facility] Total Bilirubin, Plasma 2.6(H) 0.2 - 1.1 mg/dL 05/02/2025 2:51 AM EDT [facility] eGFRcr 95.6 mL/min/1.7 3m*2 05/02/2025 2:51 AM EDT [facility] Comment:Reported eGFRcr in m L/min/1.73m2 is based the CKD-EPI 2020 equation that does not use a race coefficient. Blood Venous blood specimen / Unknown Venipuncture / Unknown 05/02/2025 2:07 AM EDT 05/02/2025 2:20 AM EDT us Lexi Crane APRN LAB BLOOD ORDERABLES Final Re sult [facility] [address] [place] [address] * (ABNORMAL) CBC and differential (05/02/2025 2:07 AM EDT) WBC Count 6.14 3.70 - 10.30 10*3/uL LAB HEMATOLOGY METHOD 05/02/2025 2:31 AM EDT [facility] RBC Count 4.15(L) 4.60 - 6.10 10*6/uL LAB HEMATOLOGY METHOD 05/02/2025 2:31 AM EDT [facility] HGB 13.3(L) 13.7 - 17.5 g/dL LAB HEMATOLOGY METHOD 05/02/2025 2:31 AM EDT [facility] HCT 39.3(L) 40.0 - 51.0 % LAB HEMATOLOGY METHOD 05/02/2025 2:31 AM EDT [facility] Platelet Count 126(L) 155 - 369 10*3/uL LAB HEMATOLOGY METHOD 05/02/2025 2:31 AM EDT [facility] MCV 95 79 - 98 fL LAB HEMATOLOGY METHOD 05/02/2025 2:31 AM EDT [facility] MCH 32.0 26.0 - 32.0 pg LAB HEMATOLOGY METHOD 05/02/2025 2:31 AM EDT [facility] MCHC 33.8 30.7 - 35.5 g/dL LAB HEMATOLOGY METHOD 05/02/2025 2:31 AM EDT [facility] RDW 15.1(H) 11.5 - 14.5 % LAB HEMATOLOGY METHOD 05/02/2025 2:31 AM EDT [facility] MPV 11.9 8.8 - 12.5 fL LAB HEMATOLOGY METHOD 05/02/2025 2:31 AM EDT [facility] nRBC 0.0 <=0.0 per 100 WBCs LAB HEMATOLOGY METHOD 05/02/2025 2:31 AM EDT [facility] Differential Type Automated LAB HEMATOLOGY METHOD 05/02/2025 2:31 AM EDT [facility] Neutrophils % 65 % LAB HEMATOLOGY METHOD 05/02/2025 2:31 AM EDT [facility] Lymphocytes % 20 % LAB HEMATOLOGY METHOD 05/02/2025 2:31 AM EDT [facility] Monocytes % 13 % LAB HEMATOLOGY METHOD 05/02/2025 2:31 AM EDT [facility] Eosinophils % 1 % LAB HEMATOLOGY METHOD 05/02/2025 2:31 AM EDT [facility] Basophils % 0 % LAB HEMATOLOGY METHOD 05/02/2025 2:31 AM EDT [facility] Immature Granulocytes % 1 % LAB HEMATOLOGY METHOD 05/02/2025 2:31 AM EDT [facility] Neutrophils Absolute 4.00 1.60 - 6.10 10*3/uL LAB HEMATOLOGY METHOD 05/02/2025 2:31 AM EDT [facility] Lymphocytes Absolute 1.22 1.20 - 3.90 10*3/uL LAB HEMATOLOGY METHOD 05/02/2025 2:31 AM EDT [facility] Monocytes Absolute 0.79 0.30 - 0.90 10*3/uL LAB HEMATOLOGY METHOD 05/02/2025 2:31 AM EDT [facility] Eosinophils Absolute 0.07 0.00 - 0.50 10*3/uL LAB HEMATOLOGY METHOD 05/02/2025 2:31 AM EDT [facility] Basophils Absolute 0.02 0.00 - 0.10 10*3/uL LAB HEMATOLOGY METHOD 05/02/2025 2:31 AM EDT [facility] Immature Granulocytes Absolute 0.04 0.00 - 0.06 10*3/uL LAB HEMATOLOGY METHOD 05/02/2025 2:31 AM EDT [facility] Blood Venous blood specimen / Unknown Venipuncture / Unknown 05/02/2025 2:07 AM EDT 05/02/2025 2:20 AM EDT Narrative [facility] - 05/02/2025 2:31 AM EDT Therapeutic decision making should be based on absolute values, rather than percentages. us Lexi Crane APRN LAB BLOOD ORDERABLES Final Re sult [facility] [address] [place] [address] * [place] Abdomen RUQ (05/01/2025 7:43 PM [...] on 05/01/2025 8:43 PM Willy Saleh MD [facility] [place] Final Result * Type and [...] TEST ORDERABLES Final Result BLOOD B[facility] [address] [place] [address], [place] * (ABNORMAL) Lactic acid, venous (05/01/2025 5:54 PM EDT) Lactate, Venous, Whole Blood 2.5(H) 0.5 - 2.2 mmol/L LAB HEMATOLOGY METHOD 05/01/2025 6:12 PM EDT [facility] Blood Venous blood specimen / Unknown Venipuncture / Unknown 05/01/2025 5:54 PM EDT 05/01/2025 6:08 PM EDT Willy Saleh MD LAB BLOOD ORDERABLES Final Resu lt [facility] [address] [place] [address] * (ABNORMAL) Lipase (05/01/2025 5:54 PM EDT) Lipase, Plasma 11(L) 19 - 63 U/L 05/01/2025 6:22 PM EDT [facility] Blood Venous blood specimen / Unknown Venipuncture / Unknown 05/01/2025 5:54 PM EDT 05/01/2025 5:58 PM EDT Willy Saleh MD LAB BLOOD ORDERABLES Final Resu lt [facility] [address] [place] [address] * Magnesium (05/01/2025 5:54 PM EDT) Magnesium, Plasma 1.9 1.9 - 2.4 mg/dL 05/01/2025 6:22 PM EDT [facility] Blood Venous blood specimen / Unknown Venipuncture / Unknown 05/01/2025 5:54 PM EDT 05/01/2025 5:58 PM EDT Willy Saleh MD LAB BLOOD ORDERABLES Final Resu lt [facility] [address] [place] [address] * (ABNORMAL) CMP (05/01/2025 5:54 PM EDT) Glucose, Plasma 93 74 - 99 mg/dL 05/01/2025 6:22 PM EDT [facility] BUN, Plasma 16 8 - 23 mg/dL 05/01/2025 6:22 PM EDT [facility] Creatinine, Plasma 0.82 0.70 - 1.20 mg/dL 05/01/2025 6:22 PM EDT [facility] BUN/Creatinine Ratio 20 05/01/2025 6:22 PM EDT [facility] Sodium, Plasma 137 136 - 145 mmol/L 05/01/2025 6:22 PM EDT [facility] Potassium, Plasma 4.0 3.6 - 4.9 mmol/L 05/01/2025 6:22 PM EDT [facility] Chloride, Plasma 101 97 - 107 mmol/L 05/01/2025 6:22 PM EDT [facility] CO2, Plasma 22 22 - 29 mmol/L 05/01/2025 6:22 PM EDT [facility] Anion Gap 14 6 - 16 mmol/L 05/01/2025 6:22 PM EDT [facility] Total Calcium, Plasma 8.7(L) 8.9 - 10.2 mg/dL 05/01/2025 6:22 PM EDT [facility] Total Protein 6.6 6.3 - 7.9 g/dL 05/01/2025 6:22 PM EDT [facility] Albumin, Plasma 2.7(L) 3.5 - 5.2 g/dL 05/01/2025 6:22 PM EDT [facility] AST, Plasma 248(H) 10 - 50 U/L 05/01/2025 6:22 PM EDT [facility] ALT, Plasma 22 10 - 50 U/L 05/01/2025 6:22 PM EDT [facility] Alkaline Phosphatase, Plasma 208(H) 40 - 115 U/L 05/01/2025 6:22 PM EDT [facility] Total Bilirubin, Plasma 2.2(H) 0.2 - 1.1 mg/dL 05/01/2025 6:22 PM EDT [facility] eGFRcr 96.3 mL/min/1.7 3m*2 05/01/2025 6:22 PM EDT [facility] Comment:Reported eGFRcr in m L/min/1.73m2 is based the CKD-EPI 2020 equation that does not use a race coefficient. Blood Venous blood specimen / Unknown Venipuncture / Unknown 05/01/2025 5:54 PM EDT 05/01/2025 5:58 PM EDT Willy Saleh MD LAB BLOOD ORDERABLES Final Resu lt Performing Organization Address [facility] Co de Phone Number [facility] [address] [place] [address] * (ABNORMAL) PT-INR (05/01/2025 5:54 PM EDT) Prothrombin Time 14.4(H) 12.0 - 14.3 sec 05/01/2025 6:13 PM EDT [facility] INR 1.1 0.9 - 1.1 05/01/2025 6:[address] [facility] Blood Venous blood specimen / Unknown Venipuncture / Unknown 05/01/2025 5:54 PM EDT 05/01/2025 5:58 PM EDT Narrative [facility] - 05/01/2025 6:13 PM EDT OPTIMAL INR RANGES FOR PATIENT ON ORAL ANTICOAGULANT THERAPY Prevention of venous thromboembolism INR 2.0 to 3.0 In patients with heart disease: Atrial fibrillation INR 2.0 to 3.0 Valvular heart disease INR 2.0 to 3.0 Tissue heart valves INR 2.0 to 3.0 Mechanical prosthetic valves INR 2.5 to 3.5 Prevention of recurrent VT INR 2.5 to 3.5 Willy Saleh MD LAB BLOOD ORDERABLES Final Resu lt Performing Organization Address City/[facility]/ZIP Co de Phone Number [facility] [address] [place] [address] * (ABNORMAL) CBC w/diff (05/01/2025 5:54 PM EDT) WBC Count 6.23 3.70 - 10.30 10*3/uL LAB HEMATOLOGY METHOD 05/01/2025 6:05 PM EDT [facility] RBC Count 4.08(L) 4.60 - 6.10 10*6/uL LAB HEMATOLOGY METHOD 05/01/2025 6:05 PM EDT [facility] HGB 13.2(L) 13.7 - 17.5 g/dL LAB HEMATOLOGY METHOD 05/01/2025 6:05 PM EDT [facility] HCT 37.8(L) 40.0 - 51.0 % LAB HEMATOLOGY METHOD 05/01/2025 6:05 PM EDT [facility] Platelet Count 118(L) 155 - 369 10*3/uL LAB HEMATOLOGY METHOD 05/01/2025 6:05 PM EDT [facility] MCV 93 79 - 98 fL LAB HEMATOLOGY METHOD 05/01/2025 6:05 PM EDT [facility] MCH 32.4(H) 26.0 - 32.0 pg LAB HEMATOLOGY METHOD 05/01/2025 6:05 PM EDT [facility] MCHC 34.9 30.7 - 35.5 g/dL LAB HEMATOLOGY METHOD 05/01/2025 6:05 PM EDT [facility] RDW 15.0(H) 11.5 - 14.5 % LAB HEMATOLOGY METHOD 05/01/2025 6:05 PM EDT [facility] MPV 11.1 8.8 - 12.5 fL LAB HEMATOLOGY METHOD 05/01/2025 6:05 PM EDT [facility] nRBC 0.0 <=0.0 per 100 WBCs LAB HEMATOLOGY METHOD 05/01/2025 6:05 PM EDT [facility] Differential Type Automated LAB HEMATOLOGY METHOD 05/01/2025 6:05 PM EDT [facility] Neutrophils % 59 % LAB HEMATOLOGY METHOD 05/01/2025 6:05 PM EDT [facility] Lymphocytes % 21 % LAB HEMATOLOGY METHOD 05/01/2025 6:05 PM EDT [facility] Monocytes % 16 % LAB HEMATOLOGY METHOD 05/01/2025 6:05 PM EDT [facility] Eosinophils % 2 % LAB HEMATOLOGY METHOD 05/01/2025 6:05 PM EDT [facility] Basophils % 1 % LAB HEMATOLOGY METHOD 05/01/2025 6:05 PM EDT [facility] Immature Granulocytes % 1 % LAB HEMATOLOGY METHOD 05/01/2025 6:05 PM EDT [facility] Neutrophils Absolute 3.70 1.60 - 6.10 10*3/uL LAB HEMATOLOGY METHOD 05/01/2025 6:05 PM EDT [facility] Lymphocytes Absolute 1.33 1.20 - 3.90 10*3/uL LAB HEMATOLOGY METHOD 05/01/2025 6:05 PM EDT [facility] Monocytes Absolute 0.98(H) 0.30 - 0.90 10*3/uL LAB HEMATOLOGY METHOD 05/01/2025 6:05 PM EDT [facility] Eosinophils Absolute 0.13 0.00 - 0.50 10*3/uL LAB HEMATOLOGY METHOD 05/01/2025 6:05 PM EDT [facility] Basophils Absolute 0.04 0.00 - 0.10 10*3/uL LAB HEMATOLOGY METHOD 05/01/2025 6:05 PM EDT [facility] Immature Granulocytes Absolute 0.05 0.00 - 0.06 10*3/uL LAB HEMATOLOGY METHOD 05/01/2025 6:05 PM EDT [facility] Blood Venous blood specimen / Unknown Venipuncture / Unknown 05/01/2025 5:54 PM EDT 05/01/2025 5:58 PM EDT Narrative [facility] - 05/01/2025 6:05 PM EDT Therapeutic decision making should be based on absolute values, rather than percentages. us Willy Saleh MD LAB BLOOD ORDERABLES Final Resu lt [facility] [address] [place] [address] * EKG now - STAT (adult) (05/01/2025 5:43 PM EDT) EKG DIAGNOSIS CLASS Abnormal MUSE ECG Ventricular Rate 70 BPM MUSE ECG Atrial Rate 70 BPM MUSE ECG HI Interval 138 ms MUSE ECG QRSD Interval 86 ms MUSE ECG QT Interval 414 ms MUSE ECG QTC Interval 447 ms MUSE ECG P Whiting 50 degrees MUSE ECG R Wh[place] -53 degrees MUSE ECG T Wave Whiting 43 degrees MUSE ECG Diagnosis Normal sinus rhythm with sinus arrhythmia MUSE ECG Diagnosis Left axis deviation MUSE ECG Diagnosis Anterior infarct , age undetermined MUSE ECG Diagnosis T wave abnormality, consider lateral ischemia MUSE ECG Diagnosis MUSE ECG Diagnosis MUSE ECG Diagnosis Confirmed by Jordyn Pompa ([id number]) on 05/02/2025 3:24:55 PM MUSE ECG 05/01/2025 [...] 05/04/2025 12:29 PM EDT 4.01 millicuries Tiotropium Chambers Monohydrate (Spiriva Respimat) 2.5 MCG/ACT inhaler 2 [...] 1229 (Given - Provider: Eliseo Cueva) Tiotropium Chambers Monohydrate (Spiriva Respimat) 2.5 MCG/ACT inhaler 2 [...] care Linked Groups Order Group 1: Tiotropium Chambers Monohydrate (Spiriva Respimat) 2.5 MCG/ACT inhaler 2 [...] documented as of this encounter Care Teams Personnel Consultant Relationship Specialty Start Date End Date Pcp, [place] [address] PCP - General Family Medicine 03/20/25 Isabella Saucedo APRN [address] [facility] [address] [place] [address] Referring Physician 02/26/25 Jeannie Mcmillan, RN [facility] [address] [place] [address] Registered Nurse Transplant Surgery 03/08/25 Ebony Shoemaker [place] [id number] Registered Nurse Transplant Surgery 03/08/25 Rodney Gonzáles MD [address] [facility] [address], [place] [address] Medical Oncologist 04/10/25 documented as of this encounter
--- OUTSIDE RECORDS SUMMARY | 2025-05-09 12:50 | XMS_ITS | Encounter Summary ---
Author Organization Healthcare Address [address] [place] [address] Care Team Providers Care Office Professionals Name Role Phone Isabella Saucedo Phong POSTAL SORTING OFFICER Unavailable [phone] Jeannie Mcmillan RN Unavailable [phone] Ebony Shoemaker Unavailable [phone] Pcp, No Primary Care Provider Unavailabl e Encounter Details Date Type Department Care Team (Late st Contact Info) Description 03/20/2025 Orders Only External Location [address] [place] [address] Provider, External Social History Tobacco Use Types [...] as of this encounter Care Teams Office Professionals Relationship Specialty Start Date End Date Pcp, No [address] [place] [address] PCP - General Family Medicine 03/20/25 Isabella Saucedo, POSTAL SORTING OFFICER [address] [place] [address] [place] [address] Referring Physician 02/26/25 Jeannie Mcmillan, RN [facility] [address] [place] [address] Registered Nurse Transplant Surgery 03/08/25 Ebony Shoemaker [place] [id number] Registered Nurse Transplant Surgery 03/08/25 documented as of this encounter
--- OUTSIDE RECORDS SUMMARY | 2025-05-09 12:50 | XMS_ITS | Encounter Summary ---
Author Organization Healthcare Address [address] [place] [address] Care Team Providers Care Food Vendor Name Role Phone Isabella Saucedo Phong HEALTH SERVICES INFORMATION SPECIALIST Unavailable [phone] Jeannie Mcmillan RN Unavailable [phone] Ebony Shoemaker Unavailable [phone] Pcp, No Primary Care Provider Unavailabl e Encounter Details Date Type Department Care Team (Late st Contact Info) Description 03/20/2025 Orders Only External Location [address] [place] [address] Provider, External Social History Tobacco Use Types [...] as of this encounter Care Teams Food Vendor Relationship Specialty Start Date End Date Pcp, No [address] [place] [address] PCP - General Family Medicine 03/20/25 Isabella Saucedo APRN [address] [place] [address] [place] [address] Referring Physician 02/26/25 Jeannie Mcmillan, RN [facility] [address] [place] [address] Registered Nurse Transplant Surgery 03/08/25 Ebony Shoemaker [place] [id number] Registered Nurse Transplant Surgery 03/08/25 documented as of this encounter
--- OUTSIDE RECORDS SUMMARY | 2025-05-09 12:50 | XMS_ITS | Encounter Summary ---
Author Organization [place] [address] Care Team Providers Care Mushroom Growth Media Mixer Name Role Phone Jan Sin MD Unavailable [phone] Macario Pryor MD Unavailable Unavailabl e Cr Resendez MD Primary Care Provider [phone] Reason for Visit * Reason Onset Date Comments Other 01/25/2025 insurance compan y called asking if office can watch for active patient verification form was rec'd. Please advise. Encounter Details Date Type Department Care Team (Late st Contact Info) Description 01/25/2025 Telephone ABDULLAHI RODRIGUEZ [address] [place] [address] [place] [address] Cr Resendez MD [address] [place] [address] [place] [address] Other (insurance company called asking if [...] documented as of this encounter Care Teams Mushroom Growth Media Mixer Relationship Specialty Start Date End Date Macario Pryor MD [address] [place] [address] [place] [address] PCP - Hematology/Oncology Internal Medicine-Medical Oncology 11/12/15 Cr Resendez MD [address] [place] [address] [place] [address] PCP - General Family Medicine 11/24/21 Jan Sin MD [address] [place] [address] [place] [address] Internal Medicine-Cardiovascul ar Disease 08/28/14 documented as of this encounter
--- OUTSIDE RECORDS SUMMARY | 2025-05-09 12:50 | XMS_ITS | Encounter Summary ---
Author Organization [place] [address] Care Team Providers Care Radio Installer Name Role Phone Jan Sin MD Unavailable [phone] Macario Pryor MD Unavailable Unavailabl e Cr Resendez MD Primary Care Provider [phone] Reason for Visit * Reason Comments Medication Refill Encounter Details Date Type Department Care Team (Late st Contact Info) Description 04/26/2025 Refill SEP Luis [facility] [place] [address] Cr Resendez MD [address] [place] [address] [place] [address] Medication Refill Social History Tobacco Use Types [...] and sent to requesting pharmacy. Routed to [facility] if an appointment is needed. clopidogreL [...] Discontinue Reason Start Date End Da te whqqtyugxtu-bcdckdldo-urp anter (TRELEGY ELLIPTA) 100-62.5-25 mcg Inhl Disk [...] as of this encounter Care Teams Radio Installer Relationship Specialty Start Date End Date Macario Pryor MD [address] [place] [address] [place] [address] PCP - Hematology/Oncology Internal Medicine-Medical Oncology 11/12/15 Cr Resendez MD [address] [place] [address] [place] [address] PCP - General Family Medicine 11/24/21 Jan Sin MD [address] [place] [address] [place] [address] Internal Medicine-Cardiovascul ar Disease 08/28/14 documented as of this encounter
--- OUTSIDE RECORDS SUMMARY | 2025-05-09 12:50 | XMS_ITS | Encounter Summary ---
Author Organization [place] [address] Care Team Providers Care Mobile Security Specialist Name Role Phone Jan Sin MD Unavailable [phone] Macario Pryro MD Unavailable Unavailabl e Cr Resendez MD Primary Care Provider [phone] Reason for Visit * Reason Comments Medication Refill Encounter Details Date Type Department Care Team (Late st Contact Info) Description 03/26/2025 Refill SEP Luis [facility] [place] [address] Cr Resendez MD [address] [place] [address] [place] [address] Medication Refill Social History Tobacco Use Types [...] documented as of this encounter Care Teams Mobile Security Specialist Relationship Specialty Start Date End Date Macario Pryor MD [address] [place] [address] [place] [address] PCP - Hematology/Oncology Internal Medicine-Medical Oncology 11/12/15 Cr Resendez MD [address] [place] [address] [place] [address] PCP - General Family Medicine 11/24/21 Jan Sin MD [address] [place] [address] [place] [address] Internal Medicine-Cardiovascul ar Disease 08/28/14 documented as of this encounter
--- OUTSIDE RECORDS SUMMARY | 2025-05-09 12:50 | XMS_ITS | Clinical Summary ---
Author Organization [facility] Address [address] [facility] [address] [place] [id number] Phone Care Team Providers Care Lead Database Administrator Name Role Phone Leander RIOS, [facility] Conditions or Problems Problem Name Problem Code Onset Date Status Entry Date Provider Comment Standard Description Annotate FOLLOW-UP EXAMINATION FOLLOWING OTHER SURGERY Z09 (ICD-10-CM) 10/20 Active 10/20 Emily Kern MA Encounter for follow-up examination after completed treatment for conditions other than malignant neoplasm BACK PAIN, LUMBAR, WITH RADICULOPATHY [id number] (SNOMED CT) Active Emily Kern MA Lumbar radiculopathy Medications Medication Instructions Start Date Stop Date Generic Name [facility] [place] Provider MELOXICAM 15 MG TABS 1 daily Non-[place] 8 MELOXICAM [id number] Emily Kern MA METOPROLOL TARTRATE 25 MG TABS 1 daily Non-[place]roy 8 METOPROLOL TARTRATE [id number] Emily Kern MA PRAVASTATIN SODIUM 40 MG TABS 1 daily Non-[place]roy 8 PRAVASTATIN SODIUM [id number] Emily Wilsonriccardo WILL PLAVIX 75 MG TABS 1 daily Non-Troy 8 CLOPIDOGREL BISULFATE [id number] Emily Wilsonriccardo WILL LISINOPRIL 5 MG TABS 1 daily Non-Troy 8 LISINOPRIL [id number] Emily Wilsonriccardo WILL ASPIRIN ADULT LOW STRENGTH 81 MG TBEC 1 daily Non-Troy 8 ASPIRIN [id number] Emilynathaniel Kren MA ALPRAZOLAM 1 MG TABS 1 qhs Non-Troy 8 ALPRAZOLAM [id number] Emily Kern MA HYDROCODONE-BRENNAN TAMINOPHEN 10-650 MG ORAL TABLET 1 qid Non-[place]roy 8 HYDROCODONE-AC ETAMINOPHEN [id number] Emily Kern MA GABAPENTIN 600 MG TABS 2 q morning & 3 q evening [facility] 8 GABAPENTIN [phone] Emily Kern MA RANEXA 500 MG ORAL TABLET EXTENDED RELEASE 12 HOUR 1 bid [facility] 8 RANOLAZINE [phone] Emily Kern MA Medications Administered No information [...]
--- OUTSIDE RECORDS SUMMARY | 2025-05-09 12:50 | XMS_ITS | Encounter Summary ---
Author Organization [place] [address] Care Team Providers Care Shine Worker Name Role Phone Jan Sin MD Unavailable [phone] Macraio Pryor MD Unavailable [facility] Cr Resendez MD Primary Care Provider [phone] Reason for Visit * Reason Onset Date Comments Central Patient Navigator Outreach 04/19/2025 AWV Questionnaire Encounter Details Date Type Department Care Team (Late st Contact Info) Description 04/19/2025 Patient Outreach SEP [facility] [address] [place] [address] Cr Resendez MD [address] [place] [address] [place] [address] Central Patient Navigator Outreach (AWV Questionnaire/) Social [...] Questionnaires Attempt Count: inbound Care Gaps Addressed media production support manager: Medicare Questionnaire Outcome:Medicare Questionnaire completed Call back number: [phone] * Esme Mendez - 04/19/2025 10:38 AM EDT Patient Outreach: Pre-Visit Questionnaires Attempt Count: 1st Care Gaps Addressed media production support manager: Medicare Questionnaire Outcome:MyChart Message Sent and Patient not available Call back number: [phone] documented in this encounter Plan of Treatment [...] documented as of this encounter Care Teams Shine Worker Relationship Specialty Start Date End Date Macario Pryor MD [address] [place] [address] [place] [address] PCP - Hematology/Oncology Internal Medicine-Medical Oncology 11/12/15 Cr Resendez MD [address] [place] [address] [place] [address] PCP - General Family Medicine 11/24/21 Jan Sin MD [address] [place] [address] [place] [address] Internal Medicine-Cardiovascul ar Disease 08/28/14 documented as of this encounter
--- OUTSIDE RECORDS SUMMARY | 2025-05-09 12:50 | XMS_ITS | Clinical Summary ---
Author Organization [facility] Address [address] [place] [address] Phone Care Team Providers Care Canoe Inspector Name Role Phone Jan Sin MD Unavailable [phone] Macario Pryor MD [facility]available [facility] MD Primary Care Provider [phone] Allergies Active Allergy Reactions Criticality Noted Date [...] 25 Active nalOXone (NARCAN) 4 mg/actuation Nasl [place], Non-Aerosol 0.1 mL by Nasal route daily [...] original. hillary stevens contracts signed 04/19/12 [facility]05/01/15 #[id number] [facility] 12/12/15 ,02/28/16 [id number],04/09/16 [id number], 11/27/16 [facility] 06/08/14,12/12/15, 10/02/16 Problem Noted Date Diagnosed Date Hepatocellular carcinoma 04/23/2025 Assessment & Plan (04/23/2025 9:20 AM EDT): Under treatment with GI and oncology at [facility]. On once monthly chemotherapy at this [...] (12/01/2022): Added automatically from request for surgery [id number] Mixed simple and mucopurulent chronic bronchitis 11/26/2022 Assessment & Plan (04/23/2025 9:20 AM EDT): Stable on Trelegy continue current regiment Assessment & Plan (12/21/2024 9:37 AM EDT): Orders: BASIC METABOLIC PANEL; Future Assessment & Plan (09/07/2024 10:49 AM EST): Orders: luecwoatzwh-rruzmpwdq-pxfpjuzk (TRELEGY ELLIPTA) 100-62.5-25 mcg Inhl Disk with [...] by Redo CABG 6 mo later at [facility] with // patent grafts 2009 Unspecified essential [...] coronary angiogram 08/31/201407/04 Overview (08/31/2014): [facility] 10/15/2009 four out of four grafts, [...] Description 05/05/2025 Nurse Triage SEP Nurse Now [facility] [place] [address] Alicia Jones RN 04/26/2025 Refill [facility] [address] [place] [address] Cr Resendez MD Medication Refill 04/24/2025 Results Follow-Up ABDULLAHI [address] [place] [address] Cr Resendez MD HEMOGLOBIN A1C, COMPREHENSIVE METABOLIC PANEL, CBC WITH DIFF, Additional followed-up results: 3 04/23/2025 9:30 AM EDT Clinical Support ABDULLAHI [address] [place] [address] Elizabeth Reynoso, NIURKA Encounter for support and coordination of transition of care (Primary Dx) 04/23/2025 9:00 AM EDT Office Visit ABDULLAHI [address] [place] [address] Cr Resendez MD Encounter for Medicare annual wellness exam (Primary Dx); Hepatocellular carcinoma (HCC); Chronic systolic congestive heart failure (HCC); Mixed simple and mucopurulent chronic bronchitis (HCC); Unspecified essential hypertension; Screening for prostate cancer; Bilateral impacted cerumen 04/19/2025 Patient Outreach SEP [facility] [address] [place] [address] Cr Resendez MD Central Patient Navigator Outreach (AWV Questionnaire/) 03/26/2025 Refill SEP [address] [place] [address] Cr Resendez MD Medication Refill 02/22/2025 Telephone SEP [place] [address] [address] [place] [address] Cr Resendez MD Paperwork/forms 02/20/2025 Refill SEP [place] [address] [address] [place] [address] Cr Resendez MD Medication Refill 02/12/2025 Refill SEP [address] [place] [address] Cr Resendez MD Medication Refill from Last [...] Quintero MD; Location: [facility]; Service: Endoscopy UPPER GASTROINTESTINAL ENDOSCOPY 10/30/2015 N/A ESOPHAGOGASTRODUODENOSC OPY with biopsies; Surgeon: Poppy Quintero MD; Location: [facility]; Service: Endoscopy CARDIAC SURGERY 08/30/2018 - 08/29/2019 pace [facility] CORONARY ANGIOPLASTY WITH STENT PLACEMENT 01/04/2024 [facility] NECK SURGERY 12/06/2024 [facility] Medical History Medical History Date Comments COPD (chronic obstructive pu lmonary disease) ([facility]) Shortness of breath Blood circulation, collateral fe et and hands get cold since cabg CAD (coronary artery disease) Hypertension OK (myocardial infarction) ([facility]) 4 times Arthritis Headache(784.0) Neuromuscular disorder ([facility]) lennox k and left leg Other [...] Cheng MD Medical Devices Implanted Type Area Wildlife Control Agent Device Identifier Shelf Expiration Date Model / Serial / Lot [employer] Vigilant ICD D233 / / [employer] Lead Lead [id number] / / St. [...] <200 mg/dL 04/23/2025 4:37 PM EDT PREFERRED [facility] Comment: < 200 Desirable 200 - 239 Borderline High >= 240 High Triglyceride 38 <150 mg/dL 04/23/2025 4:37 PM EDT [employer] Comment: < 150 Normal 150 - 199 Borderline High 200 - 499 High >= 500 Very High HDL 40 >=40 mg/dL 04/23/2025 4:37 PM EDT [employer] Comment: > 60 Optimal 40 - 60 Acceptable < 40 Low LDL Calculated 47 <100 mg/dL 04/23/2025 4:37 PM EDT [employer] Comment: < 100 Optimal 100 - 129 Near or above optimal 130 - 159 Borderline High 160 - 189 High >= 190 Very High The National Institutes of Health (NIH) equation is used for all lipid panels that report calculated LDL (LDL-C). Non-HDL-C Calculated 58 <=129 mg/dL 04/23/2025 4:37 PM EDT [employer] Comment: <130 Desirable 130-159 Above Desirable 160-189 Borderline High 190-219 High >= 220 Very High Fasting Specimen? Yes None 025 4:37 PM EDT [employer] Blood VENOUS BLOOD / Unknown Venipuncture / Unknown 04/23/2025 9:47 AM EDT 04/23/2025 9:47 AM EDT us Cr Resendez MD CHEMISTRY ORDERABLES Final Res ult PREFERRED [facility] [address] [facility] , [place] [address] * TSH REFLEX TO FT4 (04/23/2025 9:47 AM EDT) TSH Reflex 0.889 0.270 - 4.200 mcIU/mL 04/23/2025 4:37 PM EDT [facility] [place]ie [facility] Blood VENOUS BLOOD / Unknown Venipuncture / Unknown 04/23/2025 9:47 AM EDT 04/23/2025 9:47 AM EDT Narrative [facility] [place] [facility] - 04/23/2025 4:37 PM EDT Ingestion of fernanda doses of biotin (>5 mg/day) taken within 8 hours of drawing blood sample can interfere with this immunoassay test. Cr Resendez MD CHEMISTRY ORDERABLES Final Res ult Performing Organization Address [facility] de Phone Number [facility] [address] [place] [address] , [place] [address] * PROSTATE SPECIFIC ANTIGEN (SCREENING) (04/23/2025 9:47 AM EDT) Total Psa 0.08 <=4.00 ng/mL 04/23/2025 3:49 PM EDT [facility] [place] [facility] Blood VENOUS BLOOD / Unknown Venipuncture / Unknown 04/23/2025 9:47 AM EDT 04/23/2025 9:47 AM EDT Narrative [facility] [place] [facility] - 04/23/2025 3:49 PM EDT The Ricky [...] ORDERABLES Final Res ult Performing Organization Address [facility]/ZIP Co de Phone Number [facility] [address] [facility] , [place] [address] * (ABNORMAL) CBC WITH DIFF (04/23/2025 9:47 AM EDT) [facility] WBC 7.3 3.7 - 10.3 x10(3)/mcL [...] 4:08 PM EDT [facility] Garden # 1.2(H) 0.3 - 0.9 x10(3)/mcL 04/23/2025 4:08 PM EDT [facility] Eos # Manual 0.0 0.0 - 0.5 x10(3)/mcL 04/23/2025 4:08 PM EDT [facility] Baso # Manual 0.1 0.0 - 0.1 x10(3)/mcL 04/23/2025 4:08 PM EDT [facility] Polychrom Slight 04/23/2025 4:08 PM EDT [facility] [place] Cell Moderate 04/23/2025 4:08 PM EDT [facility] Elliptocyte Occasional 04/23/2025 4:08 PM EDT [facility] Target Cell Occasional 04/23/2025 4:08 PM EDT [facility] Blood VENOUS BLOOD / Unknown Venipuncture / Unknown 04/23/2025 9:47 AM EDT 04/23/2025 9:47 AM EDT us Cr Resendez MD HEMATOLOGY ORDERABLES Final Re sult [facility], [facility] [address] [facility] , [place] [address] * (ABNORMAL) HEMOGLOBIN A1C (04/23/2025 9:47 AM EDT) [facility] Hgb A1C 5.7(H) 4.2 - 5.6 [...] Res ult [facility] [address] [facility] , [place] [address] * (ABNORMAL) COMPREHENSIVE METABOLIC PANEL (04/23/2025 9:47 [...] mg/dL 04/23/2025 4:37 PM EDT [facility], [facility] ALT 26 <=41 U/L 04/23/2025 4:37 PM EDT [facility], [facility] AST 74(H) <=40 U/L 04/23/2025 4:37 PM EDT [facility], [facility] Alk Phos 142(H) 40 - 129 U/L 04/23/2025 4:37 PM EDT [facility], [facility] eGFR (CKD-EPIcr 2020) 96 >=60 mL/min/1.7 3 m2 04/23/2025 4:37 PM EDT [facility], [facility] Comment:Estimated GFR was ca lculated using the CKD-EPIcr (2020) equation refit without race. The equation is recommended by the National Kidney Foundation - [place] Society of Nephrology Task Force. Blood VENOUS BLOOD / Unknown Venipuncture / Unknown 04/23/2025 9:47 AM EDT 04/23/2025 9:47 AM EDT us Cr Resendez MD CHEMISTRY ORDERABLES Final Res ult [facility], [facility] [address] [facility] , [address] [place] [id number] * US AAA SCREENING EXAM MEDICARE (12/16/2023 [...] CLINICAL HISTORY: Z13.6-Encounter for screening for cardiovascular xcjstnhjo-BNP-59-CM. COMPARISON: CT abdomen pelvis from 09/07/2023 PROCEDURE COMMENTS: Routine sonographic evaluation of the abdominal aorta with business representative images sent to PACS along with diagnostic technician notes. FINDINGS: The abdominal aorta is normal in caliber. Maximum transverse diameter is 2.4 cm. Atherosclerotic change in the aorta and iliac vessels noted unchanged from the recent CT Procedure Note Cr Ramachandran MD - 12/16/2023 US AAA SCREENING EXAM MEDICARE, 12/16/2023 9:55 AM CLINICAL HISTORY: Z13.6-Encounter for screening for cardiovascular qzpzknznj-ODB-59-CM. COMPARISON: CT abdomen pelvis from 09/07/2023 PROCEDURE COMMENTS: Routine sonographic evaluation of the abdominal aortawith business representative images sent to PACS along with diagnostic technician notes. FINDINGS: The abdominal aorta is normal [...] of the ordering clinician. Cr Resendez MD [facility] ORDERABLES Final Result * COLONOSCOPY [...] Pena MD Performing Provider Raymond Harris RN Parent Coach Gurvinder Garner MD Anesthesiologist Mary Jo Romero [...] PATHOLOGY TISSUE REQUEST Casper Pena MD 01/13/2023 [id number] 2 : sigmoid colon polyp via cold snare Tissue Large Intestine, Sigmoid Colon PATHOLOGY TISSUE REQUEST Casper Pena MD 01/13/2023 1303 Casper Pena MD ENDOSCOPY PROCEDURE ORDERABL ES Final Result * HEPATITIS C ANTIBODY - SCREENING (11/24/2021 10:38 AM EDT) Hep C Ab Non-Reactiv e Non-Reacti ve 11/24/2021 3:20 PM EDT [facility] [place], [facility] Blood VENOUS BLOOD / Unknown Venipuncture / Unknown 11/24/2021 10:38 AM EDT 11/24/2021 10:43 AM EDT Cr Resendez MD HEMATOLOGY ORDERABLES Final Re sult [facility] [address] [facility] , [place] [address] from Last 3 Months or Most Recently Relevant to Health Maintenance Insurance [place] [address] MED[place] [address] [place] [address] [place] Care Teams Canoe Inspector Relationship Specialty Start Date End Date Macario Pryor MD [address] [place] [address] [place] [address] PCP - Hematology/Oncology Internal Medicine-Medical Oncology 11/12/15 Cr Resendez MD [address] [place] [address] [place] [address] PCP - General Family Medicine 11/24/21 Jan Sin MD [address] [place] [address] [place] [address] Internal Medicine-Cardiovascul ar Disease 08/28/14
--- OUTSIDE RECORDS SUMMARY | 2025-05-09 12:50 | XMS_ITS | Encounter Summary ---
Author Organization [place] [address] Care Team Providers Care Joint Cutter Machine Name Role Phone Jan Sin MD Unavailable [phone] Macario Pryor MD Unavailable Unavailabl e Cr Resendez MD Primary Care Provider [phone] Encounter Details Date Type Department Care Team (Latest Contact Info) Description 04/24/2025 Results Follow-Up SEP Luis [address] [place] [address] Cr Resendez MD [address] [place] [address] [place] [address] HEMOGLOBIN A1C, COMPREHENSIVE METABOLIC PANEL, CBC [...] [facility] little bit [facility]. A1c was slightly elevated [...] documented as of this encounter Care Teams Joint Cutter Machine Relationship Specialty Start Date End Date Macario Pryor MD [address] [place] [address] [place] [address] PCP - Hematology/Oncology Internal Medicine-Medical Oncology 11/12/15 Cr Resendez MD [address] [place] [address] [place] [address] PCP - General Family Medicine 11/24/21 Jan Sin MD [address] [place] [address] [place] [address] Internal Medicine-Cardiovascul ar Disease 08/28/14 documented as of this encounter
--- OUTSIDE RECORDS SUMMARY | 2025-05-09 12:50 | XMS_ITS | Encounter Summary ---
Author Organization Healthcare Address [address] [place] [address] Care Team Providers Care Guest Relations Agent Name Role Phone Isabella Saucedo Phong MC KAY MACHINE OPERATOR Unavailable [phone] Jeannie Mcmillan RN Unavailable [phone] Ebony Shoemaker Unavailable [phone] Pcp, No Primary Care Provider Unavailabl [...] documented as of this encounter Care Teams Guest Relations Agent Relationship Specialty Start Date End Date Pcp, No [address] [place] [address] PCP - General Family Medicine 03/20/25 Isabella Saucedo APRN 1210 [facility] [address] [place] [address] Referring Physician 02/26/25 Jeannie Mcmillan, RN [facility] [address] [place] [address] Registered Nurse Transplant Surgery 03/08/25 [place] [address] Registered Nurse Transplant Surgery 03/08/25 documented as of this encounter
--- OUTSIDE RECORDS SUMMARY | 2025-05-09 12:50 | XMS_ITS | Encounter Summary ---
Author Organization [facility] Address [address] [place] [address] Care Team Providers Care Lead Operator Name Role Phone Lewis Isabella Darling AIRPLANE CABIN ATTENDANT Unavailable [phone] Jeannie Mcmillan RN Unavailable [phone] Ebony Shoemaker Unavailable [phone] Pcp, No Primary Care Provider Unavailabl e Rodney Gonzáles MD Unavailable [phone] Reason for Visit * Reason Comments Txp Surgical Follow-up Encounter Details Date Type Department Care Team (Late st Contact Info) Description 04/06/2025 Telephone [facility] [address] [facility] [address] [place] [address] Ebony Shoemaker [place] [id number] Txp Surgical Follow-up Social History Tobacco Use [...] AM EDT I spoke with Veronica the aoc aadc operations staff officer with Isabella Kitchen' office. She said [...] chemo. He does not follow with a bending shed worker per Ashley. Added to Dr. Do's discussion [...] documented as of this encounter Care Teams Lead Operator Relationship Specialty Start Date End Date Pcp, [address] [address] PCP - General Family Medicine 03/20/25 Isabella Saucedo APRN 1210 [facility] [address] [place], [place] [id number] Referring Physician 02/26/25 Jeannie Mcmillan, RN [facility] 800 [place] [address] Registered Nurse Transplant Surgery 03/08/25 [place] [address] Registered Nurse Transplant Surgery 03/08/25 Rodney Gonzáles MD 1210 [facility] [address] [place] [address] Medical Oncologist 04/10/25 documented as of this encounter
--- OUTSIDE RECORDS SUMMARY | 2025-05-09 12:50 | XMS_ITS | Encounter Summary ---
Author Organization Healthcare Address [address] [place] [address] Care Team Providers Care Csr Retail Name Role Phone Isabella Saucedo Phong PARTS PROFESSIONAL Unavailable [phone] Jeannie Mcmillan RN Unavailable [phone] Ebony Shoemaker Unavailable [phone] Pcp, No Primary Care Provider Unavailabl e Encounter Details Date Type Department Care Team (Late st Contact Info) Description 03/20/2025 Orders Only External Location 800 [place] [address] Provider, External Social History Tobacco Use Types [...] documented as of this encounter Care Teams Csr Retail Relationship Specialty Start Date End Date Pcp, No [address] [place] [address] PCP - General Family Medicine 03/20/25 Isabella Saucedo APRN 1210 [facility] [address] [place] [address] Referring Physician 02/26/25 Jeannie Mcmillan, RN [facility] [address] [place] [address] Registered Nurse Transplant Surgery 03/08/25 [place] [address] Registered Nurse Transplant Surgery 03/08/25 documented as of this encounter
--- OUTSIDE RECORDS SUMMARY | 2025-05-09 12:51 | XMS_ITS | Encounter Summary ---
Author Organization Healthcare Address [address] [place] [address] Care Team Providers Care Corrections Caseworker Name Role Phone Isabella Saucedo Phong SR. SOCIAL MEDIA & MOBILE MANAGER Unavailable [phone] Jeannie Mcmillan RN Unavailable [phone] Ebony Shoemaker Unavailable [phone] Pcp, No Primary Care Provider Unavailabl e Rodney Gonzáles MD Unavailable [phone] Encounter Details Date Type Department Care Team (Late st Contact Info) Description 01/12/2025 Orders Only External Location 800 [place] [address] Provider, External Social History Tobacco Use Types [...] documented as of this encounter Care Teams Corrections Caseworker Relationship Specialty Start Date End Date Pcp, 800 [place] [address] PCP - General Family Medicine 03/20/25 Isabella Saucedo APRN 1210 [facility] [address] [place] [address] Referring Physician 02/26/25 Jeannie Mcmillan, RN [facility] 800 [place] [address] Registered Nurse Transplant Surgery 03/08/25 [place] [address] Registered Nurse Transplant Surgery 03/08/25 Rodney Gonzáles MD 1210 [facility] [address] [place] [address] Medical Oncologist 04/10/25 documented as of this encounter
--- OUTSIDE RECORDS SUMMARY | 2025-05-09 12:51 | XMS_ITS | Encounter Summary ---
Author Organization [facility] Address [address] [place] [address] Care Team Providers Care Fundraising Director Name Role Phone Isabella Saucedo CLOTH BIN PACKER Unavailable [phone] Jeannie Mcmillan RN Unavailable [phone] Ebony Shoemaker Unavailable [phone] Encounter Details Date Type Department Care [...] on filedocumented in this encounter Care Teams Fundraising Director Relationship Specialty Start Date End Date Isabella Saucedo APRN [address] [place] [address] Referring Physician 02/26/25 Jeannie Mcmillan, RN [facility]MIN[facility] 800 [place] [address] Registered Nurse Transplant Surgery 03/08/25 [place] [address] Registered Nurse Transplant Surgery 03/08/25 documented as of this encounter
--- OUTSIDE RECORDS SUMMARY | 2025-05-09 12:51 | XMS_ITS | Encounter Summary ---
Author Organization [place] [address] Care Team Providers Care Dragline Operator Helper Name Role Phone Jan Sin MD Unavailable [phone] Macario Pryor MD Unavailable Cr Rodriguez MD Primary Care Provider [phone] Reason for Visit * Reason Onset Date Comments Bloated 05/05/2025 Encounter Details Date Type Department Care Team (Late st Contact Info) Description 05/05/2025 Nurse Triage SEP Nurse Now [address] [place] [phone] Alicia Jones, RN Social History Tobacco [...] Date Author No 11/24/2021 10:05 AM Danny Mckoen MA documented in this encounter Miscellaneous Notes * Telephone Encounter - Alicia Jones RN - 05/05/2025 7:55 PM EDT Nurse Triage Call -Chief Complaint: pt just returned from [facility] for oncology. He was discharged today looking [...] getting worse Protocols used: Abdomen Bloating and [id number] documented in this encounter Plan of Treatment [...] LDL Direct < 100 Result Component No Abdiaizz Cheng MD documented as of this encounter Visit Diagnoses Not on filedocumented in this encounter Additional Health Concerns Assessment Noted Time PHQ-9 Depression Total Score: 15 025 8:00 AM EDT A fall risk assessment has been complete d for the patient 06/20/2024 1:28 PM EDT PHQ-2 Depression Total Score: 3 04/23/20 25 8:00 AM EDT documented as of this encounter Care Teams Dragline Operator Helper Relationship Specialty Start Date End Date Macario Pryor MD [address] [place] [address] [place] [address] PCP - Hematology/Oncology Internal Medicine-Medical Oncology 11/12/15 Cr Resendez MD [address] [place] [address] [place] [address] PCP - General Family Medicine 11/24/21 Jan Sin MD [address] [place] [address] [place] [address] Internal Medicine-Cardiovascul ar Disease 08/28/14 documented as of this encounter
--- OUTSIDE RECORDS SUMMARY | 2025-05-09 12:51 | XMS_ITS | Encounter Summary ---
Author Organization Healthcare Address [address] [place] [address] Care Team Providers Care Mobile Therapist Name Role Phone Isabella Saucedo Phong TESTER ROCKET ENGINE Unavailable [phone] Jeannie Mcmillan RN Unavailable [phone] Ebony Shoemaker Unavailable [phone] Pcp, No Primary Care Provider Unavailabl e Rodney Gonzáles MD Unavailable [phone] Encounter Details Date Type Department Care Team (Late st Contact Info) Description 05/01/2025 Orders Only External Location 800 [place] [id number] Chris Lazo MD [address] [address] Social History Tobacco Use Types [...] any time in the past 12 m [facility], were you homeless or living in a retirement (including now)? No 05/02/2025 [facility] Utilities Answer Date Recorded In [...] as of this encounter Care Teams Mobile Therapist Relationship Specialty Start Date End Date Pcp, No [address] [place] [address] PCP - General Family Medicine 03/20/25 Isabella Saucedo APRN [address] [facility] [address] [place] [address] Referring Physician 02/26/25 Jeannie Mcmillan, RN [facility]MINIST[facility]ATION [address] [place] [address] Registered Nurse Transplant Surgery 03/08/25 [place] [address] Registered Nurse Transplant Surgery 03/08/25 Rodney Gonzáles MD 1210 [facility] [address] [place] [address] Medical Oncologist 04/10/25 documented as of this encounter
--- OUTSIDE RECORDS SUMMARY | 2025-05-09 12:51 | XMS_ITS | Encounter Summary ---
Author Organization Healthcare Address [address] [place] [address] Care Team Providers Care Fingerprint Technician Name Role Phone LewisBereniceIsabella J LAGGING MACHINE OPERATOR Unavailable [phone] Jeannie Mcmillan RN Unavailable [phone] Ebony Shoemaker Unavailable [phone] Encounter Details Date Type Department Care [...] documented as of this encounter Care Teams Fingerprint Technician Relationship Specialty Start Date End Date Isabella Saucedo APRN 1210 [facility] [address] [place] [id number] Referring Physician 02/26/25 Jeannie Mcmillan, RN [facility] ADMINISTRATION [address] [place] [address] Registered Nurse Transplant Surgery 03/08/25 [place] [address] Registered Nurse Transplant Surgery 03/08/25 documented as of this encounter
--- OUTSIDE RECORDS SUMMARY | 2025-05-09 12:51 | XMS_ITS | Encounter Summary ---
Author Organization Healthcare Address [address] [place] [address] Care Team Providers Care Fittings Tightener Name Role Phone Isabella Saucedo Phong MILLINERY TEACHER Unavailable [phone] Jeannie Mcmillan RN Unavailable [phone] Ebony Shoemaker Unavailable [phone] Pcp, No Primary Care Provider Unavailabl e Rodney Gonzáles MD Unavailable [phone] Encounter Details Date Type Department Care Team (Late st Contact Info) Description 01/12/2025 Orders Only External Location 800 [place] [address] Provider, External Social History Tobacco Use Types [...] documented as of this encounter Care Teams Fittings Tightener Relationship Specialty Start Date End Date Pcp, No [address] [place] [address] PCP - General Family Medicine 03/20/25 Isabella Saucedo APRN 1210 [facility] [address] [place] [address] Referring Physician 02/26/25 Jeannie Mcmillan, RN [facility]MINISTRATION 800 [place] [address] Registered Nurse Transplant Surgery 03/08/25 [place] [address] Registered Nurse Transplant Surgery 03/08/25 Rodney Gonzáles MD 1210 [facility] [address] [place] [address] Medical Oncologist 04/10/25 documented as of this encounter
--- OUTSIDE RECORDS SUMMARY | 2025-05-09 12:51 | XMS_ITS | Encounter Summary ---
Author Organization Healthcare Address [address] [place] [address] Care Team Providers Care Cellular Phone Repairer Name Role Phone Isabella Saucedo Phong SPECIFICATIONS CHECKER Unavailable [phone] Jeannie Mcmillan RN Unavailable [phone] Ebony Shoemaker Unavailable [phone] Pcp, No Primary Care Provider Unavailabl e Rodney Gonzáles MD Unavailable [phone] Encounter Details Date Type Department Care Team (Late st Contact Info) Description 01/04/2025 Orders Only External Location 800 [place] [address] Provider, External Social History Tobacco Use Types [...] documented as of this encounter Care Teams Cellular Phone Repairer Relationship Specialty Start Date End Date Pcp, No 800 [place] [address] PCP - General Family Medicine 03/20/25 Isabella Saucedo APRN 1210 [facility] [address] [place] [address] Referring Physician 02/26/25 Jeannie Mcmillan, RN [facility]TR[facility]PL[facility] ADMINISTRATION [address] [place] [id number] Registered Nurse Transplant Surgery 03/08/25 Ebony Shoemaker [place] [id number] Registered Nurse Transplant Surgery 03/08/25 Rodney Gonzáles MD 1210 [place] [address] [place] [address] Medical Oncologist 04/10/25 documented as of this encounter
--- OUTSIDE RECORDS SUMMARY | 2025-05-09 12:51 | XMS_ITS | Encounter Summary ---
Author Organization [facility] Address [address] [place] [address] Care Team Providers Care Mold Machine Operator Name Role Phone Isabella Saucedo Phong VISITOR SERVICES INFORMATION ASSISTANT Unavailable [phone] Jeannie Mcmillan RN Unavailable [phone] Ebony Shoemaker Unavailable [phone] Reason for Referral * Consultation (Routine) - Authorized Specialty Diagnoses / Procedures Referred By Contac t Referred To Contact Medical Oncology Diagnoses Elevated AFP Liver lesion Peter Do MD [address] [address] Phone: tel: fax: Referral ID Status Reason Start Date Expiration Date Visits Requested Visits Authorized [id number] Authorized Consult and Treat 03/16/2025 09/15/2026 1 1 Reason for Visit * Reason Comments Txp Surgical Follow-up Ernestina: Tumor Boar d Discussion 03/16/25 Encounter Details Date Type Department Care Team (Late st Contact Info) Description 03/16/2025 Telephone [facility] Transplant Center [address] [place] [address] [address] [place] [address] Txp Surgical Follow-up (Ernestina: Tumor [...] documented as of this encounter Care Teams Mold Machine Operator Relationship Specialty Start Date End Date Isabella Saucedo APRN 1210 [place] [facility] [address] [place] [address] Referring Physician 02/26/25 Jeannie Mcmillan, RN CH-TRANSPLANT ADMINISTRATION [address] [place] [address] Registered Nurse Transplant Surgery 03/08/25 [place] [address] Registered Nurse Transplant Surgery 03/08/25 documented as of this encounter
--- OUTSIDE RECORDS SUMMARY | 2025-05-09 12:51 | XMS_ITS | Encounter Summary ---
Author Organization Healthcare Address [address] [place] [address] Care Team Providers Care Lime Sludge Kiln Operator Name Role Phone Isabella Saucedo Phong CLINICAL HAEMATOLOGIST Unavailable [phone] Jeannie Mcmillan RN Unavailable [phone] Ebony Shoemaker Unavailable [phone] Pcp, No Primary Care Provider Unavailabl e Rodney Gonzáles MD Unavailable [phone] Encounter Details Date Type Department Care Team (Late st Contact Info) Description 12/07/2024 Orders Only External Location 800 [place] [address] Provider, External Social History Tobacco Use Types [...] documented as of this encounter Care Teams Lime Sludge Kiln Operator Relationship Specialty Start Date End Date Pcp, [address] [address] PCP - General Family Medicine 03/20/25 Isabella Saucedo APRN 1210 [facility] [address] [place] [address] Referring Physician 02/26/25 Jeannie Mcmillan, RN [facility]TRANSPLANT ADMINISTRATION 800 [place] [address] Registered Nurse Transplant Surgery 03/08/25 [place] [address] Registered Nurse Transplant Surgery 03/08/25 Rodney Gonzáles MD 1210 [facility] [address] [place] [address] Medical Oncologist 04/10/25 documented as of this encounter
--- OUTSIDE RECORDS SUMMARY | 2025-05-09 12:51 | XMS_ITS | Encounter Summary ---
Author Organization [facility] Address [address] [place] [address] Care Team Providers Care Environmental Engineering Intern Name Role Phone Isabella Saucedo MUSIC WORKER Unavailable [phone] Jeannie Mcmillan RN Unavailable [phone] Ebony Shoemaker Unavailable [phone] Reason for Referral * Imaging (Routine) - Closed Specialty Diagnoses / Procedures Referred By Contac t Referred To Contact Radiology Diagnoses Elevated AFP Liver lesion Hepatic cirrhosis, unspecified hepatic cirrhosis type, unspecified whether ascites present (CMS/HCC) Procedures CT CHEST WO IV CONTRAST Peter Do MD 740 [address] [facility] [address] [place] [address] Phone: tel: fax: Referral ID Status Reason Start Date Expiration Date Visits Re quested Visits Authorized [id number] Closed 03/14/2025 09/13/2026 1 1 Encounter Details Date Type Department Care Team (Late st Contact Info) Description 03/14/2025 Orders Only [facility] Transplant Center [address] [facility] [address] [place] [address] [place] [address] Liver lesion (Primary Dx); Elevated [...] as of this encounter Care Teams Environmental Engineering Intern Relationship Specialty Start Date End Date Stump Isabella Darling APRN [address] [place] [address] Referring Physician 02/26/25 Jeannie Mcmillan, RN [facility]TR[facility]PLANT ADMINISTRATION [address] [place], [place] [id number] Registered Nurse Transplant Surgery 03/08/25 Ebony Shoemaker [place] [phone] Registered Nurse Transplant Surgery 03/08/25 documented as of this encounter
--- OUTSIDE RECORDS SUMMARY | 2025-05-09 12:51 | XMS_ITS | Encounter Summary ---
Author Organization Healthcare Address [address] [place] [address] Care Team Providers Care Saw Straightener Name Role Phone Isabella Saucedo Phong PLASTIC OUTFITTER Unavailable [phone] Jeannie Mcmillan RN Unavailable [phone] Ebony Shoemaker Unavailable [phone] Pcp, No Primary Care Provider Unavailabl e Rodney Gonzáles MD Unavailable [phone] Encounter Details Date Type Department Care [...] in a usp (including now)? No 05/02/2025 [facility] Utilities Answer Date Recorded In the past [...] documented as of this encounter Care Teams Saw Straightener Relationship Specialty Start Date End Date Pcp, No [address] [place] [address] PCP - General Family Medicine 03/20/25 Isabella Saucedo APRN [address] [place] [address] [place] [address] Referring Physician 02/26/25 Jeannie Mcmillan, RN [facility] ADMINISTRATION [address] [place] [id number] Registered Nurse Transplant Surgery 03/08/25 [place] [address] Registered Nurse Transplant Surgery 03/08/25 Rodney Gonzáles MD [address] [place] [address] [place] [address] Medical Oncologist 04/10/25 documented as of this encounter
--- OUTSIDE RECORDS SUMMARY | 2025-05-09 12:51 | XMS_ITS | Clinical Summary ---
Author Organization [facility] Address [facility] [place] [address] Care Team Providers Care Poultry Offal Worker Name Role Phone Cr Resendez MD Primary Care Provider [phone] Source Comments This information has been disclosed [...] therelease of HIV test results or diagnoses. [id number] Health Allergies Active Allergy [...] PM EDT Active naloxone (NARCAN) 4 mg/actuation [place] Apply 1 spray in one nostril if [...] by [facility]G 6 mo later at [facility] with grafts 2009 Social History Tobacco Use Types Packs/Day Years Used Date Smoking Tobacco: Some Days Cigarettes Passive Smoke Exposure: Current Tobacco Cessation:Ready to Q uit: Not Asked; Counseling Given: Not Answered Utilities Answer Date Recorded In the past 12 months has th e [employer], gas, oil, or water [employer] threatened to shut off services in your [...] any time in the past 12 m [facility], were you homeless or living in a [place] health care facility (including now)? Patient declined 12/07/2024 Sex and [...] Screening 2023 Immunization: COVID-19 ( - season) 2025 Immunization: Influenza (MyC kim) (#1) 2025 06/20/2024, 06/03/2023, 06/11/2021, Additional history exists Alcohol Misuse Screening 12/06/2025 12/06/2024 Renal Function/GFR 12/14/2025 12/14/2024, 0 12/13/2024, 12/12/2024, Additional history exists Immunization: Pneumococcal Completed 12/13, 05/08/2019, 07/18/2012 Medical Devices Implanted Type Area Recreation Teacher Device Identifier Shelf Expiration Date Model / Serial / Lot Cage Spnl 6mm 8d Sm Eit Crv Intrbd Fs Strl Lf - [id number] Implanted:Qty: 1 on 12/11/2024 by Nayan Mayo MD at [facility] Main Cage N/A: Spine Cervical DEPUY SPINE 02/26/2026 [id number] / / Graft Bn Bn Fbr 1cc Algrf Frzdr Pliafx [facility] - [id number] Implanted:Qty: 1 on 12/11/2024 by Nayan Mayo MD at [facility] Main Graft N/A: Spine Cervical LIFE NET 02/21/2028 [id number] / [id number] / Icd ICD [employer] D233 / / Description:[place] RA: [id number] 200M RV: [id number] NOT MR CONDITIONAL OF 12/07/2024 - 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 SCS Plate Bone Blacktail Titanium 14 Mm Prebent L12 Mm X W16 Mm X H2.5 Mm Spine Cervical Anterior 1 Level Nonsterile - [id number] Implanted:Qty: 1 on 12/11/2024 by Nayan Mayo MD at [facility] Main Plate N/A: Spine Cervical DEPUY SPINE [id number] 12 / / Screw Bone Blacktail Titanium L16 Mm Od4 Mm Spine Cervical Anterior Variable Self Drill Nonsterile - [id number] Implanted:Qty: 4 on 12/11/2024 by Nayan Mayo MD at [facility] Main Screw N/A: Spine Cervical DEPUY SPINE -0 16 / / Procedures Procedure Name Priority Date/Time Associated Diagnosis Comments RENAL FUNCTION PANEL W/EGFR Routine 12/14/2024 7:00 AM EDT from Last 3 Months or Most Recently Relevant to Health Maintenance Results * (ABNORMAL) Renal Function Panel w/EGFR (12/14/2024 7:00 AM EDT) Sodium 136 133 - 146 mmol/L 12/14/2024 7:50 AM EDT [facility] Potassium 3.9 3.5 - 5.3 mmol/L 12/14/2024 7:50 AM EDT [facility] Chloride 102 98 - 110 mmol/L 12/14/2024 7:50 AM EDT [facility] CO2 27 21 - 33 mmol/L 12/14/2024 7:50 AM EDT [facility] Anion Gap 7 3 - 16 mmol/L 12/14/2024 7:50 AM EDT [facility] BUN 19 7 - 25 mg/dL 12/14/2024 7:50 AM EDT [facility] Creatinine 0.66 0.60 - 1.30 mg/dL 12/14/2024 7:50 AM EDT [facility] Glucose 126(H) 70 - 100 mg/dL 12/14/2024 7:50 AM EDT [facility] Calcium 8.3(L) 8.6 - 10.3 mg/dL 12/14/2024 7:50 AM EDT [facility] Phosphorus 2.7 2.1 - 4.5 mg/dL 12/14/2024 7:50 AM EDT [facility] Albumin 2.7(L) 3.5 - 5.7 g/dL 12/14/2024 7:50 AM EDT [facility] Osmolality, Calculated 286 278 - 305 mOsm/kg 12/14/2024 7:50 AM EDT [facility] EGFR >90 12/14/2024 7:50 AM EDT [facility] Comment: As of 2021, the [...] BLOOD ORDERABLES nal Result Performing Organization Address City/State/[facility] Co de Phone Number [facility] [address] from Last 3 Months or Most Recently Relevant to Health Maintenance Insurance MEDICARE A AND B [place] MED[place] D[place] Advance Directives For more information, please contact: [phone] * Full Code (Latest Code Status on File) Date Activated Date Inactivated Comments 12/07/2024 12:02 AM 12/14/2024 8:22 PM Care Teams Poultry Offal Worker Relationship Specialty Start Date End Date Cr Resendez MD [address] [place] [address] TRISTIAN MARTINEZ [phone] PCP - General Family Medicine 12/07/24
--- OUTSIDE RECORDS SUMMARY | 2025-05-09 12:51 | XMS_ITS | Clinical Summary ---
Author Organization Healthcare Address [address] [place] [address] Care Team Providers Care [employer] Wireman Name Role Phone Berenice Saucedocheryl Darling CONSUMER CREDIT COUNSELOR Unavailable [phone] Jeannie Mcmillan RN Unavailable [phone] Ebony Shoemaker Unavailable [phone] Pcp, No Primary Care Provider Unavailabl e Rodney Gonzáles MD Unavailable [phone] Allergies Active Allergy Reactions Criticality Noted [...] EDT Hospital Encounter [facility] Inpatient [address] [place] [address] Clotilde Saleh MD Arndt, Frederick, MD Vyasabattu, Mahender, MD Generalized abdominal pain (Primary Dx); Hepatocellular carcinoma; RUQ abdominal pain Discharge Disposition: Home or Self Care 05/01/2025 Travel 05/01/2025 Orders Only External Location [address] [place] [address] Chris Lazo MD 04/06/2025 Telephone [facility] [address] [phone] Ebony Shoemaker Txp Surgical Follow-up 03/20/2025 4:39 PM EDT - 03/21/2025 6:51 PM EDT Hospital Encounter [facility] H Inpatient [address] [place] [phone] Clotilde Saleh MD Santos, MD Krystina Wade Anne E, MD Epigastric pain (Primary Dx); Hepatocellular carcinoma; Alcoholic cirrhosis of liver without ascites (CMS/HCC) Discharge Disposition: Home or Self Care 03/20/2025 Travel 03/20/2025 Orders Only External Location [address] [place] [address] Provider, External 03/20/2025 Orders Only External Location [address] [place] [phone] Provider, External 03/20/2025 Orders Only External Location [address] [place] [phone] Provider, External 03/16/2025 Telephone [facility] [place] [address] [phone] Ebony Shoemaker Txp Surgical Follow-up (Ernestina: Tumor Board Discussion 03/16/25) 03/14/2025 11:20 AM EDT - 03/14/2025 11:59 PM EDT Hospital Encounter [facility] [address] [place] [address] Elevated AFP; Liver lesion; Hepatic cirrhosis, unspecified hepatic cirrhosis type, unspecified whether ascites present (CMS/HCC) Discharge Disposition: Home or Self Care 03/14/2025 10:00 AM EDT Office Visit [facility] [address] [phone] Peter Do MD HCC (hepatocellular carcinoma) (Primary Dx) 03/14/2025 Orders Only [facility] [address] [place] [phone] Ebony Shoemaker Liver lesion (Primary Dx); Elevated AFP; Hepatic cirrhosis, unspecified hepatic cirrhosis type, unspecified whether ascites present (CMS/HCC) 03/14/2025 Travel 03/10/2025 Travel 03/07/2025 Travel 03/06/2025 Telephone [facility] [address] [phone] Cici Ramírez Manisha 03/06/2025 Telephone [facility] [address] [facility] [address] [place] [phone] Angelita Reeves Appointment 03/05/2025 Telephone [facility] [address] [address] Angelita Reeves Appointment 02/26/2025 Telephone [facility] [address] [phone] Angelita Reeves Referral - Liver Txp 02/26/2025 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 [address] [place] [address] Isabella Saucedo APRN Elevated alpha fetoprotein (Primary Dx); Liver tumor 02/09/2025 11:02 AM EDT - 02/09/2025 11:59 PM EDT Hospital Encounter [facility] [address] [place] [address] Abnormality of alphafetoprotein; Other specified [...] any time in the past 12 m [facility], were you homeless or living in a fci (including now)? No 05/02/2025 [facility] Utilities Answer Date Recorded In the past 12 months has e [employer], gas, oil, or water [employer] threatened to shut off services in your [...] Health Maintenance Due Date Last Done Comments [facility]-Infant/Child/Adol SDOH Screenings 1960 [id number] Vaccine (#1) 1965 [facility]-Hepatitis A Vaccines (1 [...] ng/mL 05/06/2025 12:20 PM EDT [facility] ([employer]) PEth 16:0/18:1 (POPEth) <10 ng/mL 05/06/2025 12:20 PM EDT [facility] ([employer]) EER Peth See Note 05/06/2025 12:20 PM EDT [facility] ([employer]) PEth Interpretation See Comment 05/06/2025 12:20 PM EDT [facility] ([employer]) Blood Venous blood specimen / Unknown Venipuncture [...] well established. Authorized individuals can access the [employer] Enhanced Report with an [employer] Connect account using the following link. Your local lab can assist you in obtaining the patient report if you don't have a Connect account. [email or web address] Phosphatidylethanol (PEth) is a group of phospholipids [...] developed and its performance characteristics determined by [employer]. It has not been cleared or approved by the U.S. Food and Drug Administration. This test was performed in a CLIA-certified laboratory and is intended for clinical purposes. Performed By: [employer] [address] [place] [address] Credit Collections Rep: David Marx MD, PhD CLIA Number: [id number] Ang Will MD LAB REF LAB BLOOD AND FLU ID ORD Final Result [facility] ([employer]) [address] [id number] * (ABNORMAL) Creatine Kinase, Total, Plasma (05/04/2025 4:33 AM EDT) Creatine Kinase, Plasma 33(L) 49 - 320 U/L 05/04/2025 5:27 AM EDT [facility] Blood Venous blood specimen / Unknown Venipuncture / Unknown 05/04/2025 4:33 AM EDT 05/04/2025 4:44 AM EDT us Ang Will MD LAB BLOOD ORDERABLES Courtney l Result [facility] [address] [place] [address] * (ABNORMAL) CBC W/O Differential (05/04/2025 4:33 AM EDT) Only the most recent of3 resultswithin the time period is included. WBC Count 4.71 3.70 - 10.30 10*3/uL LAB HEMATOLOGY METHOD 05/04/2025 5:18 AM EDT [facility] RBC Count 4.16(L) 4.60 - 6.10 10*6/uL LAB HEMATOLOGY METHOD 05/04/2025 5:18 AM EDT [facility] HGB 13.1(L) 13.7 - 17.5 g/dL LAB HEMATOLOGY METHOD 05/04/2025 5:18 AM EDT [facility] HCT 38.4(L) 40.0 - 51.0 % LAB HEMATOLOGY METHOD 05/04/2025 5:18 AM EDT [facility] Platelet Count 117(L) 155 - 369 10*3/uL LAB HEMATOLOGY METHOD 05/04/2025 5:18 AM EDT [facility] MCV 92 79 - 98 fL LAB HEMATOLOGY METHOD 05/04/2025 5:18 AM EDT [facility] MCH 31.5 26.0 - 32.0 pg LAB HEMATOLOGY METHOD 05/04/2025 5:18 AM EDT [facility] MCHC 34.1 30.7 - 35.5 g/dL LAB HEMATOLOGY METHOD 05/04/2025 5:18 AM EDT [facility] RDW 15.5(H) 11.5 - 14.5 % LAB HEMATOLOGY METHOD 05/04/2025 5:18 AM EDT [facility] MPV 11.5 8.8 - 12.5 fL LAB HEMATOLOGY METHOD 05/04/2025 5:18 AM EDT [facility] nRBC 0.0 <=0.0 per 100 WBCs LAB HEMATOLOGY METHOD 05/04/2025 5:18 AM EDT [facility] Blood Venous blood specimen / Unknown Venipuncture / Unknown 05/04/2025 4:33 AM EDT 05/04/2025 4:45 AM EDT Ang Will MD LAB BLOOD ORDERABLES Courtney ferrari Result [facility] [address] [place] [address] * (ABNORMAL) Comprehensive metabolic panel (05/04/2025 4:33 AM EDT) Only the most recent of7 resultswithin the time period is included. Glucose, Plasma 92 74 - 99 mg/dL 05/04/2025 5:27 AM EDT [facility] BUN, Plasma 11 8 - 23 mg/dL 05/04/2025 5:27 AM EDT [facility] Creatinine, Plasma 0.81 0.70 - 1.20 mg/dL 05/04/2025 5:27 AM EDT [facility] BUN/Creatinine Ratio 14 05/04/2025 5:27 AM EDT [facility] Sodium, Plasma 138 136 - 145 mmol/L 05/04/2025 5:27 AM EDT [facility] Potassium, Plasma 3.3(L) 3.6 - 4.9 mmol/L 05/04/2025 5:27 AM EDT [facility] Chloride, Plasma 106 97 - 107 mmol/L 05/04/2025 5:27 AM EDT [facility] CO2, Plasma 20(L) 22 - 29 mmol/L 05/04/2025 5:27 AM EDT [facility] Anion Gap 12 6 - 16 mmol/L 05/04/2025 5:27 AM EDT [facility] Total Calcium, Plasma 8.5(L) 8.9 - 10.2 mg/dL 05/04/2025 5:27 AM EDT [facility] Total Protein 6.4 6.3 - 7.9 g/dL 05/04/2025 5:27 AM EDT [facility] Albumin, Plasma 2.6(L) 3.5 - 5.2 g/dL 05/04/2025 5:27 AM EDT [facility] AST, Plasma 140(H) 10 - 50 U/L 05/04/2025 5:27 AM EDT [facility] ALT, Plasma 21 10 - 50 U/L 05/04/2025 5:27 AM EDT [facility] Alkaline Phosphatase, Plasma 186(H) 40 - 115 U/L 05/04/2025 5:27 AM EDT [facility] Total Bilirubin, Plasma 2.1(H) 0.2 - 1.1 mg/dL 05/04/2025 5:27 AM EDT [facility] eGFRcr 96.6 mL/min/1.7 3m*2 05/04/2025 5:27 AM EDT [facility] Comment:Reported eGFRcr in m L/min/1.73m2 is based the CKD-EPI 2020 equation that does not use a race coefficient. Blood Venous blood specimen / Unknown Venipuncture / Unknown 05/04/2025 4:33 AM EDT 05/04/2025 4:44 AM EDT Ang Will MD LAB BLOOD ORDERABLES Courtney l Result Performing Organization Address City/[facility]/ZIP Co de Phone Number [facility] [address] [place] [address] * (ABNORMAL) Bilirubin, direct (05/02/2025 1:42 PM EDT) Only the most recent of2 resultswithin the time period is included. Conjugated Bilirubin, Plasma 0.7(H) <=0.3 mg/dL 05/02/2025 2:51 PM EDT [facility] Blood Venous blood specimen / Unknown Venipuncture / Unknown 05/02/2025 1:42 PM EDT 05/02/2025 2:10 PM EDT Ang Will MD LAB BLOOD ORDERABLES Courtney l Result [facility] [address] [place] [address] * (ABNORMAL) Lactate, venous (05/02/2025 2:07 AM EDT) Only the most recent of3 resultswithin the time period is included. Lactate, Venous, Whole Blood 3.0(H) 0.5 - 2.2 mmol/L LAB HEMATOLOGY METHOD 05/02/2025 2:21 AM EDT [facility] Blood Venous blood specimen / Unknown Venipuncture / Unknown 05/02/2025 2:07 AM EDT 05/02/2025 2:19 AM EDT us [employer] CONSUMER CREDIT COUNSELOR LAB BLOOD ORDERABLES Final Re sult Performing Organization Address City/[facility]/ZIP Co de Phone Number [facility] [address] [place] [address] * (ABNORMAL) Prothrombin Time/INR (05/02/2025 2:07 AM EDT) Only the most recent of5 resultswithin the time period is included. Prothrombin Time 14.5(H) 12.0 - 14.3 sec LAB COAGULATION METHOD 05/02/2025 2:44 AM EDT [facility] INR 1.1 0.9 - 1.1 LAB COAGULATION METHOD 05/02/2025 2:44 AM EDT [facility] Blood Venous blood specimen / Unknown Venipuncture / Unknown 05/02/2025 2:07 AM EDT 05/02/2025 2:20 AM EDT Narrative [facility] - 05/02/2025 2:44 AM EDT [...] [place] INR 2.5 to 3.5 us [employer] CONSUMER CREDIT COUNSELOR LAB BLOOD ORDERABLES Final Re sult Performing Organization Address City/[facility]/ZIP Co de Phone Number [facility] [address] [place] [address] * (ABNORMAL) CBC and differential (05/02/2025 2:07 AM EDT) Only the most recent of4 resultswithin the time period is included. WBC Count 6.14 3.70 - 10.30 10*3/uL LAB HEMATOLOGY METHOD 05/02/2025 2:31 AM EDT [facility] RBC Count 4.15(L) 4.60 - 6.10 10*6/uL LAB HEMATOLOGY METHOD 05/02/2025 2:31 AM EDT [facility] HGB 13.3(L) 13.7 - 17.5 g/dL LAB HEMATOLOGY METHOD 05/02/2025 2:31 AM EDT [facility] HCT 39.3(L) 40.0 - 51.0 % LAB HEMATOLOGY METHOD 05/02/2025 2:31 AM EDT [facility] Platelet Count 126(L) 155 - 369 10*3/uL LAB HEMATOLOGY METHOD 05/02/2025 2:31 AM EDT [facility] MCV 95 79 - 98 fL LAB HEMATOLOGY METHOD 05/02/2025 2:31 AM EDT [facility] MCH 32.0 26.0 - 32.0 pg LAB HEMATOLOGY METHOD 05/02/2025 2:31 AM EDT [facility] MCHC 33.8 30.7 - 35.5 g/dL LAB HEMATOLOGY METHOD 05/02/2025 2:31 AM EDT [facility] RDW 15.1(H) 11.5 - 14.5 % LAB HEMATOLOGY METHOD 05/02/2025 2:31 AM EDT [facility] MPV 11.9 8.8 - 12.5 fL LAB HEMATOLOGY METHOD 05/02/2025 2:31 AM EDT [facility] nRBC 0.0 <=0.0 per 100 WBCs LAB HEMATOLOGY METHOD 05/02/2025 2:31 AM EDT [facility] Differential Type Automated LAB HEMATOLOGY METHOD 05/02/2025 2:31 AM EDT [facility] Neutrophils % 65 % LAB HEMATOLOGY METHOD 05/02/2025 2:31 AM EDT [facility] Lymphocytes % 20 % LAB HEMATOLOGY METHOD 05/02/2025 2:31 AM EDT [facility] Monocytes % 13 % LAB HEMATOLOGY METHOD 05/02/2025 2:31 AM EDT [facility] Eosinophils % 1 % LAB HEMATOLOGY METHOD 05/02/2025 2:31 AM EDT [facility] Basophils % 0 % LAB HEMATOLOGY METHOD 05/02/2025 2:31 AM EDT [facility] Immature Granulocytes % 1 % LAB HEMATOLOGY METHOD 05/02/2025 2:31 AM EDT [facility] Neutrophils Absolute 4.00 1.60 - 6.10 10*3/uL LAB HEMATOLOGY METHOD 05/02/2025 2:31 AM EDT [facility] Lymphocytes Absolute 1.22 1.20 - 3.90 10*3/uL LAB HEMATOLOGY METHOD 05/02/2025 2:31 AM EDT [facility] Monocytes Absolute 0.79 0.30 - 0.90 10*3/uL LAB HEMATOLOGY METHOD 05/02/2025 2:31 AM EDT [facility] Eosinophils Absolute 0.07 0.00 - 0.50 10*3/uL LAB HEMATOLOGY METHOD 05/02/2025 2:31 AM EDT [facility] Basophils Absolute 0.02 0.00 - 0.10 10*3/uL LAB HEMATOLOGY METHOD 05/02/2025 2:31 AM EDT [facility] Immature Granulocytes Absolute 0.04 0.00 - 0.06 10*3/uL LAB HEMATOLOGY METHOD 05/02/2025 2:31 AM EDT [facility] Blood Venous blood specimen / Unknown Venipuncture / Unknown 05/02/2025 2:07 AM EDT 05/02/2025 2:20 AM EDT Narrative [facility] - 05/02/2025 2:31 AM EDT Therapeutic decision making should be based on absolute values, rather than percentages. us Lexi Crane APRN LAB BLOOD ORDERABLES Final Re sult [facility] [address] [place] [address] * US Abdomen RUQ (05/01/2025 7:43 PM [...] 05/01/2025 8:43 PM us Clotilde Saleh MD [facility] PROCEDURES Final Result * Type and screen [...] TEST ORDERABLES Final Result Performing Organization Address [facility]/ZIP Co de Phone Number BLOOD BANK [address] [place] [address], * Magnesium (05/01/2025 5:54 PM EDT) Pathologist [facility] Magnesium, Plasma 1.9 1.9 - 2.4 mg/dL 05/01/2025 6:22 PM EDT [facility] Blood Venous blood specimen / Unknown Venipuncture / Unknown 05/01/2025 5:54 PM EDT 05/01/2025 5:58 PM EDT us Clotilde Saleh MD LAB BLOOD ORDERABLES Final Resu lt [facility] [address] [place] [address] * (ABNORMAL) Lipase (05/01/2025 5:54 PM EDT) Only the most recent of2 resultswithin the time period is included. Lipase, Plasma 11(L) 19 - 63 U/L 05/01/2025 6:22 PM EDT [facility] Blood Venous blood specimen / Unknown Venipuncture / Unknown 05/01/2025 5:54 PM EDT 05/01/2025 5:58 PM EDT Result [facility] Clotilde Saleh MD LAB BLOOD ORDERABLES Final Resu lt [facility] [address] [place] [address] * EKG now - STAT (adult) (05/01/2025 5:43 PM EDT) Only the most recent of2 resultswithin the time period is included. EKG DIAGNOSIS CLASS Abnormal MUSE ECG Ventricular Rate 70 BPM MUSE ECG Atrial Rate 70 BPM MUSE ECG MS Interval 138 ms MUSE ECG QRSD Interval 86 ms MUSE ECG QT Interval 414 ms MUSE ECG QTC Interval 447 ms MUSE ECG P [place] 50 degrees MUSE ECG R [place] -53 degrees MUSE ECG T Wave [place] 43 degrees MUSE ECG Diagnosis Normal sinus rhythm with sinus arrhythmia MUSE ECG Diagnosis Left axis deviation MUSE ECG Diagnosis Anterior infarct , age undetermined MUSE ECG Diagnosis T wave abnormality, consider lateral ischemia MUSE ECG Diagnosis MUSE ECG Diagnosis MUSE ECG Diagnosis Confirmed by Jordyn Pompa ([id number]) on 05/02/2025 3:24:55 PM MUSE ECG 05/01/2025 5:43 PM EDT 05/02/2025 3:24 PM EDT Result [facility] Clotilde Saleh MD ECG ORDERABLES Final Result Performing Organization Address City/[facility]/ZIP Co de Phone Number MUSE ECG * CT OUTSIDE IMAGES (05/01/2025 12:38 PM EDT) Only the most recent of2 resultswithin the time period is included. Anatomical Region Laterality Modality Computed Tomogra phy 05/01/2025 12:3 8 PM EDT Result [facility] Chris Lazo MD IMG CT PROCEDURES Final Result * Troponin T, High Sensitivity, 2 Hour, Plasma (03/20/2025 10:54 PM EDT) Troponin T, High Sensitivity, 2 Hour 10 <19 ng/L 03/20/2025 11:31 PM EDT [facility] Blood Venous blood specimen / Unknown Venipuncture / Unknown 03/20/2025 10:54 PM EDT 03/20/2025 11:04 PM EDT Leelee Tripathi MD LAB BLOOD ORDERABLE S Final Result [facility] [address] [place] [address] * ED HIV 1/2 Antibody/Antigen Screen w/Reflex to HIV 1/2 Differentiation (03/20/2025 6:51 PM EDT) [facility] HIV 1 & 2 Antibody/Antigen Screen Non Reactive Non Reactive 03/20/2025 8:05 PM EDT [facility] Comment:Screening for HIV 1 & 2 antibodies, and P24 antigen is NONREACTIVE. No confirmatory testing is required. Blood Venous blood specimen / Unknown Venipuncture / Unknown 03/20/2025 6:51 PM EDT 03/20/2025 7:09 PM EDT Result [facility] Dedra HURTADO LAB BLOOD ORDERABLES Courtney l Result Performing Organization Address City/[facility]/ZIP Co de Phone Number [facility] [address] [place] [address] * Troponin now and 120 min (03/20/2025 6:51 PM EDT) [facility] Troponin T, High Sensitivity, 0 Hour 9 <19 ng/L 03/20/2025 7:35 PM EDT [facility] Blood Venous blood specimen / Unknown Venipuncture / Unknown 03/20/2025 6:51 PM EDT 03/20/2025 7:09 PM EDT Result [facility] Dedra Smithmen PA LAB BLOOD ORDERABLES Courtney l Result Performing Organization Address City/[facility]/ZIP Co de Phone Number [facility] [address] [place] [address] * Hepatitis C Antibody - ED (03/20/2025 6:51 PM EDT) Hepatitis C Antibody Negative Negative 03/20/2025 8:01 PM EDT [facility] Blood Venous blood specimen / Unknown Venipuncture / Unknown 03/20/2025 6:51 PM EDT 03/20/2025 7:09 PM EDT Dedra A [employer] PA LAB BLOOD ORDERABLES Courtney l Result Performing Organization Address [facility] Co de Phone Number [facility]ALTH[facility]ARE [facility] [address] [place] [address] * APTT (03/20/2025 6:51 PM EDT) aPTT 31 25 - 35 sec 03/20/2025 7:25 PM EDT [facility] Blood Venous blood specimen / Unknown Venipuncture / Unknown 03/20/2025 6:51 PM EDT 03/20/2025 7:08 PM EDT Dedra A [employer] PA LAB BLOOD ORDERABLES Courtney l Result Performing Organization Address [facility] de Phone Number HEALTHCARE LAB [address] [place] [address] * C-Reactive protein (03/20/2025 6:51 PM EDT) [...] ORDERABLES Courtney l Result Performing Organization Address City/[facility] Co de Phone Number [facility] [address] [place] [address] * CT THORACIC OUTSIDE IMAGES (03/20/2025 1:13 [...] 1,098.0(H) <10.0 ng/mL 03/14/2025 10:22 AM EDT [facility] Blood Venous blood specimen / Unknown Venipuncture / Unknown 03/14/2025 8:38 AM EDT 03/14/2025 9:03 AM EDT Narrative [facility] - 03/14/2025 10:22 AM EDT Performed by Ricky electrochemiluminescent immunoassay which is traceable to the 1st AFP IRP WHO Reference standard 72/255. Results obtained with different test methods or kits cannot be used interchangeably. Peter Do MD LAB BLOOD ORDERABLES Final Result [facility] [address] [place] [address] * Cancer Antigen, GI (CA 19.9) (03/14/2025 8:38 AM EDT) CA 19.9 26.5 <36 U/mL 03/14/2025 10:[address] [facility] Blood Venous blood specimen / Unknown Venipuncture / Unknown 03/14/2025 8:38 AM EDT 03/14/2025 9:03 AM EDT Narrative [facility] - 03/14/2025 10:22 AM EDT Performed by Ricky electrochemiluminescent immunoassay. Results obtained with different test methods or kits cannot be used interchangeably. Peter Do MD LAB BLOOD ORDERABLES Final Result Performing Organization Address City/[facility]/[place] [address] * (ABNORMAL) CEA, Serum (03/14/2025 8:38 AM EDT) CEA, Serum 5.2(H) <4.0 ng/mL 03/14/2025 10:[address] [facility] Blood Venous blood specimen / Unknown Venipuncture / Unknown 03/14/2025 8:38 AM EDT 03/14/2025 9:[address] [facility] - 03/14/2025 10:22 AM EDT Normal range for smokers: < 5.5 ng/ml Normal range for non-smokers: <=4.0 ng/ml Performed by Ricky electrochemiluminescent immunoassay. Results obtained with different test methods or kits cannot be used interchangeably. Peter Do MD LAB BLOOD [place] [address] * CT Abdomen w and wo IV [...] are consistent with and integrated into the [employer] Diseases [...] are consistent with and integrated into the [employer] Associationfor the Study of Liver Diseases (AASLD) [...] 02/09/2025 3:29 PM us Isabella J Stump CONSUMER CREDIT COUNSELOR IMG CT PROCEDURES Final Re sult from [...] updated to appropriate status: Yes Care Teams [employer] Wire[employer] Relationship Specialty Start Date End Date Pcp, No [address] [place] [address] PCP - General Family Medicine 03/20/25 Isabella Saucedo APRN [address] [facility] [address] [place], [place] [id number] Referring Physician 02/26/25 Jeannie Mcmillan, RN [facility] [address] [place] [address] Registered Nurse Transplant Surgery 03/08/25 [place] [address] Registered Nurse Transplant Surgery 03/08/25 Rodney Gonzáles MD [address] [facility] [address] [place] [address] Medical Oncologist 04/10/25
--- OUTSIDE RECORDS SUMMARY | 2025-05-09 12:51 | XMS_ITS | Encounter Summary ---
Author Organization Healthcare Address [address] [place] [address] Care Team Providers Care Hotel Receptionist Name Role Phone Isabella Saucedo PRODUCT SAFETY ADMINISTRATOR Unavailable [phone] Jeannie Mcmillan RN Unavailable [phone] Ebony Shoemaker Unavailable [phone] Pcp, No Primary Care Provider Unavailabl e Rodney Gonzáles MD Unavailable [phone] Reason for Referral * Transplant (Routine) [...] present (CMS/HCC) Isabella Saucedo APRN [address] [place] [facility] [address] [place] [address] Phone: tel: fax: Referral ID Status Reason Start Date Expiration Date Visits Requested Visits Authorized [id number] Authorized Specialty Services Required 02/26/2025 999 [id number] Encounter Details Date Type Department Care Team (Late st Contact Info) Description 02/26/2025 [facility] [address] [place] [address] Isabella Saucedo APRN [address] [place] [facility] [address] [place] [address] Invasion of liver, gallbladder, pancreas, ipsilateral branch [...] documented as of this encounter Care Teams Hotel Receptionist Relationship Specialty Start Date End Date Pcp, No [address] [place] [address] PCP - General Family Medicine 03/20/25 Isabella Saucedo APRN [address] [place] [address] [address] [place] [address] Referring Physician 02/26/25 Jeannie Mcmillan RN [facility] 800 [place] [address] Registered Nurse Transplant Surgery 03/08/25 Eb[place] [address] Registered Nurse Transplant Surgery 03/08/25 Rodney Gonzáles MD 1210 [facility] [address] [place] [address] Medical Oncologist 04/10/25 documented as of this encounter
--- OUTSIDE RECORDS SUMMARY | 2025-05-09 12:51 | XMS_ITS | Encounter Summary ---
Author Organization Healthcare Address [address] [place] [address] Care Team Providers Care Geophysical Engineer Name Role Phone Isabella Saucedo Phong FRESH FOOD MANAGER Unavailable [phone] Jeannie Mcmillan RN Unavailable [phone] Ebony Shoemaker Unavailable [phone] Pcp, No Primary Care Provider Unavailabl e Rodney Gonzáles MD Unavailable [phone] Encounter Details Date Type Department Care Team (Late st Contact Info) Description 01/06/2024 Orders Only External Location 800 [place] [address] Provider, External Social History Tobacco Use Types [...] documented as of this encounter Care Teams Geophysical Engineer Relationship Specialty Start Date End Date Pcp, No 800 [place] [address] PCP - General Family Medicine 03/20/25 Isabella Saucedo APRN 1210 [facility] [place] [facility] [address] [place] [address] Referring Physician 02/26/25 Jeannie Mcmillan, RN [facility] 800 [place] [address] Registered Nurse Transplant Surgery 03/08/25 Ebony Shoemaker [place] [id number] Registered Nurse Transplant Surgery 03/08/25 Rodney Gonzáles MD 1210 [facility] [address] [place], [place] [address] Medical Oncologist 04/10/25 documented as of this encounter
--- OUTSIDE RECORDS SUMMARY | 2025-05-09 12:51 | XMS_ITS | Encounter Summary ---
Author Organization Healthcare Address [address] [place] [address] Care Team Providers Care Adjunct Professor Of Law Name Role Phone Isabella Saucedo Phong BOOKKEEPER RECEPTIONIST Unavailable [phone] Jeannie Mcmillan RN Unavailable [phone] Ebony Shoemaker Unavailable [phone] Pcp, No Primary Care Provider Unavailabl e Rodney Gonzáles MD Unavailable [phone] Encounter Details Date Type Department Care Team (Late st Contact Info) Description 01/14/2024 Orders Only External Location 800 [place] [address] Provider, External Social History Tobacco Use Types [...] documented as of this encounter Care Teams Adjunct Professor Of Law Relationship Specialty Start Date End Date Pcp, No [address] [place] [address] PCP - General Family Medicine 03/20/25 Isabella Saucedo APRN 1210 [facility] [address] [place] [address] Referring Physician 02/26/25 Jeannie Mcmillan, RN [facility] 800 [place] [address] Registered Nurse Transplant Surgery 03/08/25 [place] [address] Registered Nurse Transplant Surgery 03/08/25 Rodney Gonzáles MD [address] [place] [address] [place] [address] Medical Oncologist 04/10/25 documented as of this encounter
--- OUTSIDE RECORDS SUMMARY | 2025-05-09 12:51 | XMS_ITS | Encounter Summary ---
Author Organization Healthcare Address [address] [place] [address] Care Team Providers Care Growth Media Mixer Mushroom Name Role Phone Isabella Saucedo Phong FRONT END SOFTWARE DEVELOPER Unavailable [phone] Jeannie Mcmillan RN Unavailable [phone] Ebony Shoemaker Unavailable [phone] Pcp, No Primary Care Provider Unavailabl e Rodney Gonzáles MD Unavailable [phone] Encounter Details Date Type Department Care [...] any time in the past 12 m [facility], were you homeless or living in a correction (including now)? No 05/02/2025 [facility] Utilities Answer Date Recorded In the past [...] documented as of this encounter Care Teams Growth Media Mixer Mushroom Relationship Specialty Start Date End Date Pcp, [address] [address] PCP - General Family Medicine 03/20/25 Isabella Saucedo APRN 1210 [facility] [address] [place] [address] Referring Physician 02/26/25 Jeannie Mcmillan, RN [facility] [address] [place] [address] Registered Nurse Transplant Surgery 03/08/25 [place] [address] Registered Nurse Transplant Surgery 03/08/25 Rodney Gonzáles MD 1210 [facility] [address] [place] [address] Medical Oncologist 04/10/25 documented as of this encounter
--- OUTSIDE RECORDS SUMMARY | 2025-05-09 12:51 | XMS_ITS | Encounter Summary ---
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 Isabella Saucedo APRN [address] [place] [address] Phone: tel: fax: Referral ID Status Reason Start Date Expiration Date Visits Requested Visits Authorized [id number] Authorized Specialty Services Required 02/20/2025 08/22/2026 1 1 Encounter Details Date Type Department Care Team (Late st Contact Info) Description 02/19/2025 [facility] 800 [place] [address] Isabella Saucedo APRN [address] [place] [address] [place] [address] Elevated alpha fetoprotein (Primary Dx); Liver tumor [...] documented as of this encounter Care Teams Child Development Associate Teacher Relationship Specialty Start Date End Date Pcp, [place] [id number] PCP - General Family Medicine 03/20/25 Isabella Saucedo APRN 1210 [facility] [address] [place], [place] [address] Referring Physician 02/26/25 Jeannie Mcmillan, RN [facility] [address] [place] [address] Registered Nurse Transplant Surgery 03/08/25 [place] [address] Registered Nurse Transplant Surgery 03/08/25 Rodney Gonzáles MD [address] [place], [place] [address] Medical Oncologist 04/10/25 documented as of this encounter
--- OUTSIDE RECORDS SUMMARY | 2025-05-09 12:52 | XMS_ITS | Encounter Summary ---
Author Organization Healthcare Address [address] [place] [address] Care Team Providers Care Data Officer Name Role Phone Isabella Saucedo Phong BOTTLE PACKING MACHINE CLEANER Unavailable [phone] Jeannie Mcmillan RN Unavailable [phone] Ebony Shoemaker Unavailable [phone] Pcp, No Primary Care Provider Unavailabl e Rodney Gonzáles MD Unavailable [phone] Encounter Details Date Type Department Care Team (Late st Contact Info) Description 05/26/2022 Orders Only External Location 800 [place] [address] Provider, External Social History Tobacco Use Types [...] as of this encounter Care Teams Data Officer Relationship Specialty Start Date End Date Pcp, No 800 [place] [address] PCP - General Family Medicine 03/20/25 Isabella Saucedo APRN 1210 [facility] [address] [place] [address] Referring Physician 02/26/25 Jeannie Mcmillan, RN [facility]PL[facility] ADMINISTRATION 800 [place] [address] Registered Nurse Transplant Surgery 03/08/25 Ebony Shoemaker [place] [id number] Registered Nurse Transplant Surgery 03/08/25 Rodney Gonzáles MD 1210 [facility] [address] [place], [place] [address] Medical Oncologist 04/10/25 documented as of this encounter
--- OUTSIDE RECORDS SUMMARY | 2025-05-09 12:52 | XMS_ITS | Encounter Summary ---
Author Organization Healthcare Address [address] [place] [address] Care Team Providers Care Studio Operator Name Role Phone Isabella Saucedo Phong PYROMETER OPERATOR Unavailable [phone] Jeannie Mcmillan RN Unavailable [phone] Ebony Shoemaker Unavailable [phone] Pcp, No Primary Care Provider Unavailabl e Rodney Gonzáles MD Unavailable [phone] Encounter Details Date Type Department Care Team (Late st Contact Info) Description 12/07/2024 Orders Only External Location 800 [place] [address] Provider, External Social History Tobacco Use Types [...] documented as of this encounter Care Teams Studio Operator Relationship Specialty Start Date End Date Pcp, 800 [place] [address] PCP - General Family Medicine 03/20/25 Isabella Saucedo APRN 1210 [facility] [address] [place] [address] Referring Physician 02/26/25 Jeannie Mcmillan, RN [facility]TR[facility]PL[facility] ADMINISTRATION 800 [place] [address] Registered Nurse Transplant Surgery 03/08/25 [place] [address] Registered Nurse Transplant Surgery 03/08/25 Rodney Gonzáles MD 1210 [facility] [address] [place] [address] Medical Oncologist 04/10/25 documented as of this encounter
--- OUTSIDE RECORDS SUMMARY | 2025-05-09 12:52 | XMS_ITS | Encounter Summary ---
Author Organization Healthcare Address [address] [place] [address] Care Team Providers Care Jig And Fixture Builder Apprentice Name Role Phone Isabella Saucedo Phong RAILROAD DETECTIVE Unavailable [phone] Jeannie Mcmillan RN Unavailable [phone] Ebony Shoemaker Unavailable [phone] Pcp, No Primary Care Provider Unavailabl e Rodney Gonzáles MD Unavailable [phone] Encounter Details Date Type Department Care Team (Late st Contact Info) Description 12/06/2024 Orders Only External Location 800 [place] [address] Provider, External Social History Tobacco Use Types [...] documented as of this encounter Care Teams Jig And Fixture Builder Apprentice Relationship Specialty Start Date End Date Pcp, [address] [address] PCP - General Family Medicine 03/20/25 Isabella Saucedo APRN 1210 [facility] [address] [place] [address] Referring Physician 02/26/25 Jeannie Mcmillan, RN [facility]MINISTRATION 800 [place] [address] Registered Nurse Transplant Surgery 03/08/25 [place] [address] Registered Nurse Transplant Surgery 03/08/25 Rodney Gonzáles MD 1210 [facility] [address] [place] [address] Medical Oncologist 04/10/25 documented as of this encounter
--- OUTSIDE RECORDS SUMMARY | 2025-05-09 12:52 | XMS_ITS | Encounter Summary ---
Author Organization Healthcare Address [address] [place] [address] Care Team Providers Care Assignment Manager Name Role Phone Isabella Saucedo Phong CORK PAINTER AND GRADER Unavailable [phone] Jeannie Mcmillan RN Unavailable [phone] Ebony Shoemaker Unavailable [phone] Pcp, No Primary Care Provider Unavailabl e Rdoney Gonzáles MD Unavailable [phone] Encounter Details Date Type Department Care Team (Late st Contact Info) Description 12/06/2024 Orders Only External Location 800 [place] [address] Provider, External Social History Tobacco Use Types [...] documented as of this encounter Care Teams Assignment Manager Relationship Specialty Start Date End Date Pcp, [address] [address] PCP - General Family Medicine 03/20/25 Isabella Saucedo APRN 1210 [facility] [address] [place] [address] Referring Physician 02/26/25 Jeannie Mcmillan, RN [facility]MINISTRATION 800 [place] [address] Registered Nurse Transplant Surgery 03/08/25 [place] [address] Registered Nurse Transplant Surgery 03/08/25 Rodney Gonzáles MD 1210 [facility] [address] [place] [address] Medical Oncologist 04/10/25 documented as of this encounter
--- OUTSIDE RECORDS SUMMARY | 2025-05-09 12:52 | XMS_ITS | Encounter Summary ---
Author Organization Healthcare Address [address] [place] [address] Care Team Providers Care Director Client Services Name Role Phone Isabella Saucedo Phong CARAVAN PARK AND CAMPING GROUND MANAGER Unavailable [phone] Jeannie Mcmillan RN Unavailable [phone] Ebony Shoemaker Unavailable [phone] Pcp, No Primary Care Provider Unavailabl e Rodney Gonzáles MD Unavailable [phone] Encounter Details Date Type Department Care Team (Late st Contact Info) Description 12/06/2024 Orders Only External Location 800 [place] [address] Provider, External Social History Tobacco Use Types [...] documented as of this encounter Care Teams Director Client Services Relationship Specialty Start Date End Date Pcp, [address] [address] PCP - General Family Medicine 03/20/25 Isabella Saucedo APRN 1210 [facility] [address] [place] [address] Referring Physician 02/26/25 Jeannie Mcmillan, RN [facility]MINISTRATION 800 [place] [address] Registered Nurse Transplant Surgery 03/08/25 [place] [address] Registered Nurse Transplant Surgery 03/08/25 Rodney Gonzáles MD 1210 [facility] [address] [place] [address] Medical Oncologist 04/10/25 documented as of this encounter
--- OUTSIDE RECORDS SUMMARY | 2025-05-09 12:52 | XMS_ITS | Encounter Summary ---
Author Organization Healthcare Address [address] [place] [address] Care Team Providers Care Cloud Administrator Name Role Phone Isabella Saucedo Phong PRODUCTION QUALITY MANAGER Unavailable [phone] Jeannie Mcmillan RN Unavailable [phone] Ebony Shoemaker Unavailable [phone] Pcp, No Primary Care Provider Unavailabl e Rodney Gonzáles MD Unavailable [phone] Encounter Details Date Type Department Care Team (Late st Contact Info) Description 11/22/2024 Orders Only External Location 800 [place] [address] Provider, External Social History Tobacco Use Types [...] documented as of this encounter Care Teams Cloud Administrator Relationship Specialty Start Date End Date Pcp, [address] [address] PCP - General Family Medicine 03/20/25 Isabella Saucedo APRN 1210 [facility] [address] [place] [address] Referring Physician 02/26/25 Jeannie Mcmillan, RN [facility]TRANSPLANT ADMINISTRATION 800 [place] [address] Registered Nurse Transplant Surgery 03/08/25 [place] [address] Registered Nurse Transplant Surgery 03/08/25 Rodney Gonzáles MD 12[address] [facility] [address] [place] [address] Medical Oncologist 04/10/25 documented as of this encounter
--- OUTSIDE RECORDS SUMMARY | 2025-05-09 12:52 | XMS_ITS | Encounter Summary ---
Author Organization Healthcare Address [address] [place] [address] Care Team Providers Care River Driver Name Role Phone Isabella Saucedo Phong MANUSCRIPTS CURATOR Unavailable [phone] Jeannie Mcmillan RN Unavailable [phone] Ebony Shoemaker Unavailable [phone] Pcp, No Primary Care Provider Unavailabl e Rodney Gonzáles MD Unavailable [phone] Encounter Details Date Type Department Care Team (Late st Contact Info) Description 06/03/2022 Orders Only External Location 800 [place] [address] Provider, External Social History Tobacco Use Types [...] documented as of this encounter Care Teams River Driver Relationship Specialty Start Date End Date Pcp, No 800 [place] [address] PCP - General Family Medicine 03/20/25 Isabella Saucedo APRN 1210 [facility] [address] [place] [address] Referring Physician 02/26/25 Jeannie Mcmillan, RN [facility]TRANSPLANT ADMINISTRATION [address] [place] [id number] Registered Nurse Transplant Surgery 03/08/25 Ebony Shoemaker [place] [id number] Registered Nurse Transplant Surgery 03/08/25 Rodney Gonzáles MD [address] [place] [address] [place] [address] Medical Oncologist 04/10/25 documented as of this encounter
--- OUTSIDE RECORDS SUMMARY | 2025-05-09 12:52 | XMS_ITS | Encounter Summary ---
Author Organization Healthcare Address [address] [place] [address] Care Team Providers Care Jail Guard Name Role Phone Isabella Saucedo Phong LITERACY CONSULTANT Unavailable [phone] Jeannie Mcmillan RN Unavailable [phone] Ebony Shoemaker Unavailable [phone] Pcp, No Primary Care Provider Unavailabl e Rodney Gonzáles MD Unavailable [phone] Encounter Details Date Type Department Care Team (Late st Contact Info) Description 11/15/2024 Orders Only External Location 800 [place] [address] Provider, External Social History Tobacco Use Types [...] documented as of this encounter Care Teams Jail Guard Relationship Specialty Start Date End Date Pcp, No 800 [place] [address] PCP - General Family Medicine 03/20/25 Isabella Saucedo APRN 1210 [facility] [address] [place] [address] Referring Physician 02/26/25 Jeannie Mcmillan, RN CH-TRANSPLANT ADMINISTRATION 800 [place] [address] Registered Nurse Transplant Surgery 03/08/25 Ebony Shoemaker [place] [id number] Registered Nurse Transplant Surgery 03/08/25 Rodney Gonzáles MD 1210 [facility] [address] [place], [place] [address] Medical Oncologist 04/10/25 documented as of this encounter
--- OUTSIDE RECORDS SUMMARY | 2025-05-09 12:52 | XMS_ITS | Encounter Summary ---
Author Organization Healthcare Address [address] [place] [address] Care Team Providers Care Maintenance Job Titles Name Role Phone Isabella Saucedo Phong AUTOMOTIVE POWER ELECTRONICS ENGINEER Unavailable [phone] Jeannie Mcmillan RN Unavailable [phone] Ebony Shoemaker Unavailable [phone] Pcp, No Primary Care Provider Unavailabl e Rodney Gonzáles MD Unavailable [phone] Encounter Details Date Type Department Care Team (Late st Contact Info) Description 12/06/2024 Orders Only External Location 800 [place] [address] Provider, External Social History Tobacco Use Types [...] documented as of this encounter Care Teams Maintenance Job Titles Relationship Specialty Start Date End Date Pcp, [address] [address] PCP - General Family Medicine 03/20/25 Isabella Saucedo APRN 1210 [facility] [address] [place] [address] Referring Physician 02/26/25 Jeannie Mcmillan, RN CH-TRANSPLANT ADMINISTRATION 800 [place] [address] Registered Nurse Transplant Surgery 03/08/25 [place] [address] Registered Nurse Transplant Surgery 03/08/25 Rodney Gonzáles MD 1210 [facility] [address] [place] [address] Medical Oncologist 04/10/25 documented as of this encounter
--- OUTSIDE RECORDS SUMMARY | 2025-05-09 12:52 | XMS_ITS | Encounter Summary ---
Author Organization Healthcare Address [address] [place] [address] Care Team Providers Care Wearing Apparel Folder Name Role Phone Isabella Saucedo Phong CHIEF CRUISER Unavailable [phone] Jeannie Mcmillan RN Unavailable [phone] Ebony Shoemaker Unavailable [phone] Pcp, No Primary Care Provider Unavailabl e Rodney Gonzáles MD Unavailable [phone] Encounter Details Date Type Department Care Team (Late st Contact Info) Description 12/06/2024 Orders Only External Location 800 [place] [address] Provider, External Social History Tobacco Use Types [...] documented as of this encounter Care Teams Wearing Apparel Folder Relationship Specialty Start Date End Date Pcp, [address] [address] PCP - General Family Medicine 03/20/25 Isabella Saucedo APRN 1210 [facility] [address] [place] [address] Referring Physician 02/26/25 Jeannie Mcmillan, RN CH-TRANSPLANT ADMINISTRATION 800 [place] [address] Registered Nurse Transplant Surgery 03/08/25 [place] [address] Registered Nurse Transplant Surgery 03/08/25 Rdoney Gonzáles MD 1210 [facility] [address] [place] [address] Medical Oncologist 04/10/25 documented as of this encounter
--- OUTSIDE RECORDS SUMMARY | 2025-05-09 12:52 | XMS_ITS | Encounter Summary ---
Author Organization Healthcare Address [address] [place] [address] Care Team Providers Care Lace And Textiles Restorer Name Role Phone Isabella Saucedo Phong SOFTWARE QUALITY ASSURANCE ENGINEER Unavailable [phone] Jeannie Mcmillan RN Unavailable [phone] Ebony Shoemaker Unavailable [phone] Pcp, No Primary Care Provider Unavailabl e Rodney Gonzáles MD Unavailable [phone] Encounter Details Date Type Department Care Team (Late st Contact Info) Description 12/06/2024 Orders Only External Location 800 [place] [address] Provider, External Social History Tobacco Use Types [...] documented as of this encounter Care Teams Lace And Textiles Restorer Relationship Specialty Start Date End Date Pcp, [address] [address] PCP - General Family Medicine 03/20/25 Isabella Saucedo APRN 1210 [facility] [address] [place] [address] Referring Physician 02/26/25 Jeannie Mcmillan, RN CH-TRANSPLANT ADMINISTRATION 800 [place] [address] Registered Nurse Transplant Surgery 03/08/25 [place] [address] Registered Nurse Transplant Surgery 03/08/25 Rodney Gonzáles MD 1210 [facility] [address] [place] [address] Medical Oncologist 04/10/25 documented as of this encounter
--- OUTSIDE RECORDS SUMMARY | 2025-05-09 12:52 | XMS_ITS | Encounter Summary ---
Author Organization Healthcare Address [address] [place] [address] Care Team Providers Care Presser And Blocker Knitted Goods Name Role Phone Isabella Saucedo Phong PROCUREMENT PROFESSIONAL LOGISTICS Unavailable [phone] Jeannie Mcmillan RN Unavailable [phone] Ebony Shoemaker Unavailable [phone] Pcp, No Primary Care Provider Unavailabl e Rodney Gonzáles MD Unavailable [phone] Encounter Details Date Type Department Care Team (Late st Contact Info) Description 05/26/2022 Orders Only External Location 800 [place] [address] Provider, External Social History Tobacco Use Types [...] documented as of this encounter Care Teams Presser And Blocker Knitted Goods Relationship Specialty Start Date End Date Pcp, No 800 [place] [address] PCP - General Family Medicine 03/20/25 Isabella Saucedo APRN 1210 [facility] [address] [place] [address] Referring Physician 02/26/25 Jeannie Mcmillan, RN CH-TRANSPLANT ADMINISTRATION [address] [place] [id number] Registered Nurse Transplant Surgery 03/08/25 Ebony Shoemaker [place] [id number] Registered Nurse Transplant Surgery 03/08/25 Rodney Gonzáles MD 1210 [facility] [address] [place] [address] Medical Oncologist 04/10/25 documented as of this encounter
--- OUTSIDE RECORDS SUMMARY | 2025-05-09 12:52 | XMS_ITS | Encounter Summary ---
Author Organization Healthcare Address [address] [place] [address] Care Team Providers Care Brim And Crown Presser Name Role Phone Isabella Saucedo Phong MACHINE STRIPPER Unavailable [phone] Jeannie Mcmillan RN Unavailable [phone] Ebony Shoemaker Unavailable [phone] Pcp, No Primary Care Provider Unavailabl e Rodney Gonzáles MD Unavailable [phone] Encounter Details Date Type Department Care Team (Late st Contact Info) Description 12/06/2024 Orders Only External Location [address] [place] [address] Provider, External Social History Tobacco Use Types [...] documented as of this encounter Care Teams Brim And Crown Presser Relationship Specialty Start Date End Date Pcp, [address] [address] PCP - General Family Medicine 03/20/25 Isabella Saucedo APRN 1210 [facility] [address] [place] [address] Referring Physician 02/26/25 Jeannie Mcmillan, RN [facility] [address] [place] [address] Registered Nurse Transplant Surgery 03/08/25 [place] [address] Registered Nurse Transplant Surgery 03/08/25 Rodney Gonzáles MD 1210 [facility] [address] [place] [address] Medical Oncologist 04/10/25 documented as of this encounter
--- OUTSIDE RECORDS SUMMARY | 2025-05-09 12:52 | XMS_ITS | Encounter Summary ---
Author Organization Healthcare Address [address] [place] [address] Care Team Providers Care Basting Marker Name Role Phone Isabella Saucedo Phong FIBER OPTICS TECHNICIAN Unavailable [phone] Jeannie Mcmillan RN Unavailable [phone] Ebony Shoemaker Unavailable [phone] Pcp, No Primary Care Provider Unavailabl e Rodney Gonzáles MD Unavailable [phone] Encounter Details Date Type Department Care Team (Late st Contact Info) Description 12/06/2024 Orders Only External Location [address] [place] [address] Provider, External Social History Tobacco Use Types [...] documented as of this encounter Care Teams Basting Marker Relationship Specialty Start Date End Date Pcp, [address] [address] PCP - General Family Medicine 03/20/25 Isabella Saucedo APRN 1210 [facility] [address] [place] [address] Referring Physician 02/26/25 Jeannie Mcmillan, RN [facility] [address] [place] [address] Registered Nurse Transplant Surgery 03/08/25 [place] [address] Registered Nurse Transplant Surgery 03/08/25 Rodney Gonzáles MD 1210 [facility] [address] [place] [address] Medical Oncologist 04/10/25 documented as of this encounter
--- OUTSIDE RECORDS SUMMARY | 2025-05-09 12:52 | XMS_ITS | Encounter Summary ---
Author Organization Healthcare Address [address] [place] [address] Care Team Providers Care Manufacturer Representative Name Role Phone Isabella Saucedo Phong CHIEF SCIENCE OFFICER Unavailable [phone] Jeannie Mcmillan RN Unavailable [phone] Ebony Shoemaker Unavailable [phone] Pcp, No Primary Care Provider Unavailabl e Rodney Gonzáles MD Unavailable Encounter Details Date Type Department Care Team (Late st Contact Info) Description 12/06/2024 Orders Only External Location [address] [place] [address] Provider, External Social History Tobacco Use Types [...] documented as of this encounter Care Teams Manufacturer Representative Relationship Specialty Start Date End Date Pcp, [address] [address] PCP - General Family Medicine 03/20/25 Isabella Saucedo APRN 1210 [facility] [address] [place] [address] Referring Physician 02/26/25 Jeannie Mcmillan, RN [facility] [address] [place] [address] Registered Nurse Transplant Surgery 03/08/25 [place] [address] Registered Nurse Transplant Surgery 03/08/25 Rodney Gonzáles MD 1210 [facility] [address] [place] [address] Medical Oncologist 04/10/25 documented as of this encounter
[2025-05-09 13:30] VITALS: BP 133/47; PULSE 68; RESP 18; TEMP 36.6; O2SAT 99
[2025-05-09] MEDS: SODIUM CHLORIDE 0.9% IV (13:30)
[2025-05-09] MEDS: SODIUM CHLORIDE 0.9% 10ML FLUSH SYRINGE 10 ML IV (13:30)
[2025-05-09] MEDS: ATEZOLIZUMAB IV (13:30)
[2025-05-09 14:00] VITALS: BP 131/56; PULSE 65
[2025-05-09 14:40] VITALS: BP 129/52; PULSE 71
== END 2025-05-09 14:45 | disposition home or self-care (01) ==
LOC: INF 12:47
PROVIDERS: PCP Family Medicine; Visit Provider Internal Medicine Medical Oncology
DX: C22.0 Liver cell carcinoma (principal); Z51.11 Encounter for antineoplastic chemotherapy
CPT/HCPCS: 96413; J7050; J9022

== ENCOUNTER 2025-05-15 04:33 | Emergency (ER) | payer MEDICARE, MEDICAID, SELFPAY ==
--- OUTSIDE RECORDS SUMMARY | 2016-03-04 08:15 | XMS_ITS | Encounter Summary ---
Author Organization [place] [address] Care Team Providers Care Senior Speech Pathologist Name Role Phone Jan Sin MD Unavailable [phone] Carlton James DO Primary Care Provide r Macario Pryor MD Unavailable Unavailabl e Encounter Details Date Type Department Care Team (Latest Contact Info) Description 03/04/2016 8:15 AM EDT Hospital Encounter [facility] 238 [facility] [place] [address] Poppy Quintero MD [address] [place], [place] [phone] Left without seen Social History Tobacco Use [...] 3:32 PM EDT Jer Sena RN * [place] Suicide Severity Rating Scale (Q shift for [...] documented as of this encounter Care Teams Senior Speech Pathologist Relationship Specialty Start Date End Date Carlton James DO [address] [place] [address] PCP - General Family Medicine 05/01/15 11/26/16 Macario Pryor MD [address] [place] [address] PCP - Hematology/Oncology Internal Medicine-Medical Oncology 11/12/15 Jan Sin MD [address] [place] [address] [place], [place] [id number] Internal Medicine-Cardiovascul ar Disease 08/28/14 documented as of this encounter
--- OUTSIDE RECORDS SUMMARY | 2025-03-20 16:39 | XMS_ITS | Encounter Summary ---
Author Organization Healthcare Address [address] [place] [address] Care Team Providers Care Central Supply Nurse Name Role Phone Isabella Saucedo DIGITAL MARKETING STRATEGIST Unavailable [phone] Jeannie Mcmillan RN Unavailable [phone] Ebony Shoemaker Unavailable [phone] Pcp, No Primary Care Provider Unavailabl e Reason for Visit * Reason Comments Abdominal Pain * Auth/Cert (Routine) Specialty Diagnoses / Procedures Referred By Vicente alaniz Referred To Contact Diagnoses Hepatocellular carcinoma hepatocellular carcinoma Navi Tripathi MD [address] [place] [address] Phone: tel: fax: [facility] Inpatient [address] [place] [address] Phone: tel: Referral ID Status Reason Start Date Expiration Date Visits Re quested Visits Authorized [id number] 1 1 Encounter Details Date Type Department Care Team (Latest Contact Info) Description 03/20/2025 4:39 PM EDT - 03/21/2025 6:51 PM EDT Hospital Encounter [facility] [address] [place] [address] Clotilde Saleh MD [address] [place] [address] Navi Tripathi MD [address] [place] [address] Lolly Flaherty MD [address] [place] [phone] Epigastric pain (Primary Dx); Hepatocellular carcinoma; Alcoholic cirrhosis of liver without ascites (CMS/HCC) Discharge Disposition: Home or Self Care Social History Tobacco Use Types Packs/Day Years Used Date Smoking Tobacco: Every Day Cigarettes 0.5 7.7 Started: 2017 Smokeless Tobacco: Never Tobacco Cessation:Ready [...] Suicidal Behavior (Lifetime) No 8:00 AM EDT Makokha, Sandy, RN documented as of this encounter Medications [...] Take 2 tablets by mouth daily. 02/05/2025 HYDROmorphone (Dilaudid) 2 [...] by mouth nightly. 60 tablet 5 03/21/2025 Trelink Ellipta 100-62.5-25 MCG/ACT aerosol powder INHALE 1 PUFF INTO THE LUNGS DAILY AT 0900. documented as of this encounter Miscellaneous Notes * Addendum Note - Vivian Longo, RN - 03/21/2025 6:51 PM EDTEncounter addended by: Vivian Longo, RN on: 03/29/2025 9:23 AM Actions taken: Utilization Review saved, Utilization Review data saved * Discharge Summary - Lolly Flaherty MD - 03/21/2025 5:56 PM EDT Hospitalization Admit Date/Time: 03/20/2025 4:39 PM Admitting Attending: Navi Tripathi Discharge Date: Discharge Attending Physician: Lolly Flaherty MD PCP name and Address: Pcp, No [address] [facility] / [facility] [address] Referring provider name and address: Monalisa Elizondo, DIGITAL MARKETING STRATEGIST [address] [place] [address] Chief Concern, Brief History of Present Illness, [...] Ellipta 100-62.5-25 MCG/ACT aerosol powder Generic drug: Wvhoyzlvzep-Ctzertwrd-Vmkqci INHALE 1 PUFF INTO THE LUNGS DAILY AT 0900. Where to Get Your Medications These medications were sent to [facility] - [place], [place] - [address] [facility] [address] calcium carbonate 500 MG chewable tablet HYDROmorphone [...] 04, 2025 at 1:00PM Dr. Rodney Gonzáles [facility] Specialty Clinic (Oncology) [address] [place] [address] * Care Plan - Sandy Moseley RN [...] Identify and Manage Fall Risk Flowsheets (Taken 03/21/20251031) Safety Promotion/Fall Prevention: activity [...] (see comments) Patient/Family Anticipated Services at Transition: wrapper caser Patient/Family Anticipates Transition to: home with family [...] and grandson on the bed side when dowel pin man visited and they were appreciative of dowel pin man's visit. Prayer and nicole is important to them. Industrial Servicer supported them emotionallyand spiritually. Referral From: Industrial Servicer Initiated Pastoral Care Provided For: Patient, Spouse, [...] and gratitude, Emotional support, Introduced Patient/Family to Industrial Servicer Services, Supportive Listening, Spiritual support Pastoral Care Outcomes: Patient Outcomes: Expresses acceptance, Demonstrates lower level of Anxious(ness), Is knowledgeableabout Flight Data Technician Services, Being at peace, Demonstrates and/or verbalizes increased comfort, Endorses increased sense of connection, Expresses intent to participate/comply in plan of care, Expresses e motionally release, Is functionally engaged in meaning making, Gratitude, Expresses feeling spiritually nurtured, Communicates increased satisfaction with hospital experience, Identifies spiritual orreligious practices as helpful, Expresses increased trust in medical team and/or plan of care, Appreciative of Industrial Servicer Support, Expresses being seen and heard Cosigned by Azeb Worthy at 03/23/2025 10:36 AM EDT Associated attestation - Azeb Worthy - 03/23/2025 10:36 AM EDT This is to attest dowel pin man international accounting manager chart note has been reviewed and okayed. [...] 03/20/2025 7:52 PM EDTAssociated Order(s): Consult to [facility] Consult to [facility] Consult performed by: Navi Tripathi MD Consult [...] the pain caused him to present to [facility] ED, where CT scan showed interval [...] 98%. Results Review {Vanishing Link Review Results :[id number] I have reviewed the latest lab and [...] 64 y.o. male with history of cirrhosis, RI, CAD s/p CABG x4 with re-stenosis with revision, COPD, HTN, HFmrEF, central cord syndrome, inguinal hernia, cholelithiasis, recently disagnosed HCC with new central necrosis of tumor on CT at OSH today who presents with Abdominal Pain. Patient took prescription medication prior to arrival. Patient sent from [facility] for concern of tumor necrosis with fistulization to bile ducts. Patient reports epigastric, LUQ, and RUQ abdominal pain and pressure that began last night. He presented to [facility] for evaluation. He had a CT [...] noted that the chronic conditions includes cirrhosis, RI, CAD s/p CABG x4 with re-stenosis with [...] SUKUMAR A 03/20/251945 PT/INR Morning draw Acknowledged NAVI TRIPATHI SUKUMAR A 03/20/251934 Troponin T, High Sensitivity, 2 Hour, Plasma PROCEDURE ONCE Ordered NAVI TRIPATHI SUKUMAR A 03/20/251945 Vital Signs (No vitals between 10pm-8am) 4 times daily Placed in And Linked Group Acknowledged NAVI TRIPATHI SUKUMAR A 03/20/251945 Pulse Oximetry (No vitals between 10pm-8am) 4 times daily Placed in And Linked Group Acknowledged JEFRY TRIPATHIIA SUKUMAR A 03/20/25 194 Do Not Give Nicotine Replacement Until discontinued Acknowledged JEFRY TRIPATHIIA SUKUMAR A 03/20/251945 Full code Continuous Acknowledged [...] Once Placed in And Linked Group Completed VI TRIPATHIRICIA SUKUMAR A 03/20/251917 Off-Cycle Tray Request for Patient Once Completed ASPEN MOYALINE A 03/20/251917 Adult diet Diet texture: Regular Diet effective now Acknowledged NAVI TRIPATHI SUKUMAR A 03/20/251900 Consult to [facility] Medicine [facility] Once Specialty: Internal Medicine Provider: (Not yet assigned) Acknowledged JEFRY TRIPATHIIA SUKUMAR A 03/20/251900 ED to floor bed request Once Completed ADRIENNE MOYA A 03/20/25 1742 Once Provider: (Not yet assigned) Canceled ADRIENNE MOYA A 03/20/25 171 Troponin now and 120 min STAT Final result GRIFFIN ADRIENNE A 03/20/251718 EKG now - STAT (adult) Once Final result GRIFFIN ADRIENNE A 03/20/251715 Hepatitis C Antibody - ED Once Final result ADRIENNE MOYA A 03/20/251715 ED Protocol - HIV 1/2 Antibody/Antigen Screen Once Final result ADRIENNE MOYA A 03/20/251715 ED HIV 1/2 Antibody/Antigen Screen w/Reflex to HIV 1/2 Differentiation PROCEDURE ONCE Final result ADRIENNE MOYA A 07/22/25 1716 APTT STAT Final result ADRIENNE MOYA 03/20/25 1716 C-Reactive protein STAT Final result ADRIENNE MOYA 03/20/25 1716 CBC w/diff STAT Final result ADRIENNE MOYA 03/20/25 1716 CMP STAT Final result ADRIENNE MOYA 03/20/25 1716 PT-INR STAT Final result ADRIENNE MOYA 03/20/25 1716 Lipase STAT Final result ADRIENNE MOYA 03/20/25 1716 Lactic acid, venous STAT Final result ADRIENNE [...] that began last night. Was seen at [facility] and had CT scan of chest [...] ESS resident, patient to be [facility] medicine and transplant teamwill see him tomorrow. No needs overnight. [MR] 1904 Reached out to hospital medicine for admission [MR] 1917 They agree to admit patient to [facility] for multidisciplinary care. They will put in admissionorders and transfer him to [place]. Patient updated on plan and provided ice cream. [MR] ED Course User Index [MR] Griffin Adrienne Driscoll, PA [SO] Clotilde Saleh MD Clinical Impressions [...] transferred to [facility] Admitting/Attending Physician: NAVI TRIPATHI [[id number]] Provider Care Team: [facility] 11 [[id number]] Are [...] Results * PT/INR (03/21/2025 6:32 AM EDT) Prothrombin Time 13.8 12.0 - 14.3 sec LAB COAGULATION METHOD 03/21/2025 7:00 AM EDT [facility] INR 1.1 0.9 - 1.1 LAB COAGULATION METHOD 03/21/2025 7:00 AM EDT [facility] Blood Venous blood specimen / Unknown Venipuncture / Unknown 03/21/2025 6:32 AM EDT 03/21/2025 6:43 AM EDT Narrative [facility] - 03/21/2025 7:00 AM EDT OPTIMAL INR RANGES FOR PATIENT ON ORAL ANTICOAGULANT THERAPY Prevention of venous thromboembolism INR 2.0 to 3.0 In patients with heart disease: Atrial fibrillation INR 2.0 to 3.0 Valvular heart disease INR 2.0 to 3.0 Tissue heart valves INR 2.0 to 3.0 Mechanical prosthetic valves INR 2.5 to 3.5 Prevention of recurrent RI INR 2.5 to 3.5 us Navi Tripathi MD LAB BLOOD ORDERABLE S Final Result [facility] [address] [place] [address] * (ABNORMAL) Comprehensive metabolic panel (03/21/2025 6:32 AM EDT) Glucose, Plasma 107(H) 74 - 99 mg/dL 03/21/2025 7:11 AM EDT [facility] BUN, Plasma 12 8 - 23 mg/dL 03/21/2025 7:11 AM EDT [facility] Creatinine, Plasma 0.77 0.70 - 1.20 mg/dL 03/21/2025 7:11 AM EDT [facility] BUN/Creatinine Ratio 16 03/21/2025 7:11 AM EDT [facility] Sodium, Plasma 139 136 - 145 mmol/L 03/21/2025 7:11 AM EDT [facility] Potassium, Plasma 4.6 3.6 - 4.9 mmol/L 03/21/2025 7:11 AM EDT [facility] Comment:Hemolyzed, result ma y be falsely increased. Chloride, Plasma 105 97 - 107 mmol/L 03/21/2025 7:11 AM EDT [facility] CO2, Plasma 23 22 - 29 mmol/L 03/21/2025 7:11 AM EDT [facility] Anion Gap 11 6 - 16 mmol/L 03/21/2025 7:11 AM EDT [facility] Total Calcium, Plasma 9.4 8.9 - 10.2 mg/dL 03/21/2025 7:11 AM EDT [facility] Total Protein 7.0 6.3 - 7.9 g/dL 03/21/2025 7:11 AM EDT [facility] Albumin, Plasma 3.6 3.5 - 5.2 g/dL 03/21/2025 7:11 AM EDT [facility] AST, Plasma 621(H) 10 - 50 U/L 03/21/2025 7:11 AM EDT [facility] Comment:Hemolyzed, result ma y be falsely increased. ALT, Plasma 48 10 - 50 U/L 03/21/2025 7:11 AM EDT [facility] Alkaline Phosphatase, Plasma 232(H) 40 - 115 U/L 03/21/2025 7:11 AM EDT [facility] Total Bilirubin, Plasma 0.6 0.2 - 1.1 mg/dL 03/21/2025 7:11 AM EDT [facility] eGFRcr 98.7 mL/min/1.7 3m*2 03/21/2025 7:11 AM EDT [facility] Comment:Reported eGFRcr in m L/min/1.73m2 is based the CKD-EPI 2020 equation that does not use a race coefficient. Blood Venous blood specimen / Unknown Venipuncture / Unknown 03/21/2025 6:32 AM EDT 03/21/2025 6:43 AM EDT Navi Tripathi MD LAB BLOOD ORDERABLE S Final Result [facility] [address] [place] [address] * (ABNORMAL) CBC and Differential (03/21/2025 6:32 AM EDT) WBC Count 6.12 3.70 - 10.30 10*3/uL LAB HEMATOLOGY METHOD 03/21/2025 6:58 AM EDT [facility] RBC Count 4.62 4.60 - 6.10 10*6/uL LAB HEMATOLOGY METHOD 03/21/2025 6:58 AM EDT [facility] HGB 15.2 13.7 - 17.5 g/dL LAB HEMATOLOGY METHOD 03/21/2025 6:58 AM EDT [facility] HCT 45.4 40.0 - 51.0 % LAB HEMATOLOGY METHOD 03/21/2025 6:58 AM EDT [facility] Platelet Count 82(L) 155 - 369 10*3/uL LAB HEMATOLOGY METHOD 03/21/2025 6:58 AM EDT [facility] MCV 98 79 - 98 fL LAB HEMATOLOGY METHOD 03/21/2025 6:58 AM EDT [facility] MCH 32.9(H) 26.0 - 32.0 pg LAB HEMATOLOGY METHOD 03/21/2025 6:58 AM EDT [facility] MCHC 33.5 30.7 - 35.5 g/dL LAB HEMATOLOGY METHOD 03/21/2025 6:58 AM EDT [facility] RDW 16.8(H) 11.5 - 14.5 % LAB HEMATOLOGY METHOD 03/21/2025 6:58 AM EDT [facility] MPV 12.2 8.8 - 12.5 fL LAB HEMATOLOGY METHOD 03/21/2025 6:58 AM EDT [facility] nRBC 0.0 <=0.0 per 100 WBCs LAB HEMATOLOGY METHOD 03/21/2025 6:58 AM EDT [facility] Differential Type Automated LAB HEMATOLOGY METHOD 03/21/2025 6:58 AM EDT [facility] Neutrophils % 55 % LAB HEMATOLOGY METHOD 03/21/2025 6:58 AM EDT [facility] Lymphocytes % 24 % LAB HEMATOLOGY METHOD 03/21/2025 6:58 AM EDT [facility] Monocytes % 17 % LAB HEMATOLOGY METHOD 03/21/2025 6:58 AM EDT [facility] Eosinophils % 2 % LAB HEMATOLOGY METHOD 03/21/2025 6:58 AM EDT [facility] Basophils % 1 % LAB HEMATOLOGY METHOD 03/21/2025 6:58 AM EDT [facility] Immature Granulocytes % 1 % LAB HEMATOLOGY METHOD 03/21/2025 6:58 AM EDT [facility] Neutrophils Absolute 3.46 1.60 - 6.10 10*3/uL LAB HEMATOLOGY METHOD 03/21/2025 6:58 AM EDT [facility] Lymphocytes Absolute 1.45 1.20 - 3.90 10*3/uL LAB HEMATOLOGY METHOD 03/21/2025 6:58 AM EDT [facility] Monocytes Absolute 1.03(H) 0.30 - 0.90 10*3/uL LAB HEMATOLOGY METHOD 03/21/2025 6:58 AM EDT [facility] Eosinophils Absolute 0.11 0.00 - 0.50 10*3/uL LAB HEMATOLOGY METHOD 03/21/2025 6:58 AM EDT [facility] Basophils Absolute 0.04 0.00 - 0.10 10*3/uL LAB HEMATOLOGY METHOD 03/21/2025 6:58 AM EDT [facility] Immature Granulocytes Absolute 0.03 0.00 - 0.06 10*3/uL LAB HEMATOLOGY METHOD 03/21/2025 6:58 AM EDT [facility] Blood Venous blood specimen / Unknown Venipuncture / Unknown 03/21/2025 6:32 AM EDT 03/21/2025 6:[address] [facility] - 03/21/2025 6:58 AM EDT Therapeutic decision making should be based on absolute values, rather than percentages. us Navi Tripathi MD LAB BLOOD ORDERABLE S Final Result [facility] [address] [place] [address] * Troponin T, High Sensitivity, 2 Hour, Plasma (03/20/2025 10:54 PM EDT) Pathologist [facility] Troponin T, High Sensitivity, 2 Hour 10 <19 ng/L 03/20/2025 11:31 PM EDT [facility] Blood Venous blood specimen / Unknown Venipuncture / Unknown 03/20/2025 10:54 PM EDT 03/20/2025 11:04 PM EDT Navi Tripathi MD LAB BLOOD ORDERABLE S Final Result [facility] [address] [place] [address] * Troponin now and 120 min (03/20/2025 6:51 PM EDT) Pathologist [facility] Troponin T, High Sensitivity, 0 Hour 9 <19 ng/L 03/20/2025 7:35 PM EDT [facility] Blood Venous blood specimen / Unknown Venipuncture / Unknown 03/20/2025 6:51 PM EDT 03/20/2025 7:09 PM EDT Adrienne HURTADO LAB BLOOD ORDERABLES Courtney l Result Performing Organization Address [facility] Co de Phone Number [facility] [address] [place] [address] * ED HIV 1/2 Antibody/Antigen Screen w/Reflex to HIV 1/2 Differentiation (03/20/2025 6:51 PM EDT) [facility] HIV 1 & 2 Antibody/Antigen Screen Non Reactive Non Reactive 03/20/2025 8:05 PM EDT [facility] Comment:Screening for HIV 1 & 2 antibodies, and P24 antigen is NONREACTIVE. No confirmatory testing is required. Blood Venous blood specimen / Unknown Venipuncture / Unknown 03/20/2025 6:51 PM EDT 03/20/2025 7:09 PM EDT Adrienne HURTADO LAB BLOOD ORDERABLES Courtney l Result Performing Organization Address City/[facility]/ZIP Co de Phone Number [facility] [address] [place] [address] * Hepatitis C Antibody - ED (03/20/2025 6:51 PM EDT) [facility] Hepatitis C Antibody Negative Negative 03/20/2025 8:01 PM EDT [facility] Blood Venous blood specimen / Unknown Venipuncture / Unknown 03/20/2025 6:51 PM EDT 03/20/2025 7:09 PM EDT Adrienne A RebsaSavedaily PA LAB BLOOD ORDERABLES Courtney l Result Performing Organization Address City/[facility]/ZIP Co de Phone Number [facility] [address] [place] [address] * APTT (03/20/2025 6:51 PM EDT) [facility] aPTT 31 25 - 35 sec 03/20/2025 7:25 PM EDT [facility] Blood Venous blood specimen / Unknown Venipuncture / Unknown 03/20/2025 6:51 PM EDT 03/20/2025 7:08 PM EDT us Adrienne A RebsaSavedaily PA LAB BLOOD ORDERABLES Courtney l Result Performing Organization Address [facility] de Phone Number [facility] [address] [place] [address] * C-Reactive protein (03/20/2025 6:51 PM EDT) [facility] CRP, Plasma 5.2 <=8.0 mg/L 03/20/2025 7:35 [...] high sensitivity CRP (CRPH). us Adrienne A Rebsamen PA LAB BLOOD ORDERABLES Courtney l Result Performing Organization Address City/[facility]/ZIP Co de Phone Number [facility] [address] [place] [address] * Lactic acid, venous (03/20/2025 6:51 PM EDT) Pathologist [facility] Lactate, Venous, Whole Blood 1.7 0.5 - 2.2 mmol/L LAB HEMATOLOGY METHOD 03/20/2025 7:12 PM EDT [facility] Blood Venous blood specimen / Unknown Venipuncture / Unknown 03/20/2025 6:51 PM EDT 03/20/2025 7:08 PM EDT [employer] LAB BLOOD ORDERABLES Courtney l Result [facility] [address] [place] [address] * Lipase (03/20/2025 6:51 PM EDT) [facility] Lipase, Plasma 19 19 - 63 U/L 03/20/2025 7:35 PM EDT [facility] Blood Venous blood specimen / Unknown Venipuncture / Unknown 03/20/2025 6:51 PM EDT 03/20/2025 7:09 PM EDT [employer] PA LAB BLOOD ORDERABLES Courtney l Result [facility] [address] [place] [address] * PT-INR (03/20/2025 6:51 PM EDT) [facility] Prothrombin Time 13.8 12.0 - 14.3 sec [...] INR 2.5 to 3.5 Prevention of recurrent RI INR 2.5 to 3.5 Adrienne HURTADO LAB BLOOD ORDERABLES Courtney ferrari Result [facility] [address] [place] [id number] * (ABNORMAL) CMP (03/20/2025 6:51 PM EDT) Glucose, Plasma 89 74 - 99 mg/dL 03/20/2025 7:47 PM EDT [facility] BUN, Plasma 15 8 - 23 mg/dL 03/20/2025 7:47 PM EDT [facility] Creatinine, Plasma 0.77 0.70 - 1.20 mg/dL 03/20/2025 7:47 PM EDT [facility] BUN/Creatinine Ratio 19 03/20/2025 7:47 PM EDT [facility] Sodium, Plasma 141 136 - 145 mmol/L 03/20/2025 7:47 PM EDT [facility] Potassium, Plasma 3.9 3.6 - 4.9 mmol/L 03/20/2025 7:47 PM EDT [facility] Chloride, Plasma 102 97 - 107 mmol/L 03/20/2025 7:47 PM EDT [facility] CO2, Plasma 26 22 - 29 mmol/L 03/20/2025 7:47 PM EDT [facility] Anion Gap 13 6 - 16 mmol/L 03/20/2025 7:47 PM EDT [facility] Total Calcium, Plasma 9.6 8.9 - 10.2 mg/dL 03/20/2025 7:47 PM EDT [facility] Total Protein 7.4 6.3 - 7.9 g/dL 03/20/2025 7:47 PM EDT [facility] Albumin, Plasma 3.7 3.5 - 5.2 g/dL 03/20/2025 7:47 PM EDT [facility] AST, Plasma 395(H) 10 - 50 U/L 03/20/2025 7:47 PM EDT [facility] Comment:Hemolyzed, result ma y be falsely increased. ALT, Plasma 43 10 - 50 U/L 03/20/2025 7:47 PM EDT [facility] Alkaline Phosphatase, Plasma 210(H) 40 - 115 U/L 03/20/2025 7:47 PM EDT [facility] Total Bilirubin, Plasma 0.7 0.2 - 1.1 mg/dL 03/20/2025 7:47 PM EDT [facility] eGFRcr 98.7 mL/min/1.7 3m*2 03/20/2025 7:47 PM EDT [facility] Comment:Reported eGFRcr in m L/min/1.73m2 is based the CKD-EPI 2020 equation that does not use a race coefficient. Blood Venous blood specimen / Unknown Venipuncture / Unknown 03/20/2025 6:51 PM EDT 03/20/2025 7:09 PM EDT us Adrienne HURTADO LAB BLOOD ORDERABLES Courtney ferrari Result Performing Organization Address City/State/[facility] Co de Phone Number [facility] [address] [place] [address] * (ABNORMAL) CBC w/diff (03/20/2025 6:51 PM EDT) WBC Count 6.84 3.70 - 10.30 10*3/uL LAB HEMATOLOGY METHOD 03/20/2025 7:21 PM EDT [facility] RBC Count 4.63 4.60 - 6.10 10*6/uL LAB HEMATOLOGY METHOD 03/20/2025 7:21 PM EDT [facility] HGB 15.3 13.7 - 17.5 g/dL LAB HEMATOLOGY METHOD 03/20/2025 7:21 PM EDT [facility] HCT 44.8 40.0 - 51.0 % LAB HEMATOLOGY METHOD 03/20/2025 7:21 PM EDT [facility] Platelet Count 79(L) 155 - 369 10*3/uL LAB HEMATOLOGY METHOD 03/20/2025 7:21 PM EDT [facility] MCV 97 79 - 98 fL LAB HEMATOLOGY METHOD 03/20/2025 7:21 PM EDT [facility] MCH 33.0(H) 26.0 - 32.0 pg LAB HEMATOLOGY METHOD 03/20/2025 7:21 PM EDT [facility] MCHC 34.2 30.7 - 35.5 g/dL LAB HEMATOLOGY METHOD 03/20/2025 7:21 PM EDT [facility] RDW 16.5(H) 11.5 - 14.5 % LAB HEMATOLOGY METHOD 03/20/2025 7:21 PM EDT [facility] MPV 11.2 8.8 - 12.5 fL LAB HEMATOLOGY METHOD 03/20/2025 7:21 PM EDT [facility] nRBC 0.0 <=0.0 per 100 WBCs LAB HEMATOLOGY METHOD 03/20/2025 7:21 PM EDT [facility] Differential Type Automated LAB HEMATOLOGY METHOD 03/20/2025 7:21 PM EDT [facility] Neutrophils % 60 % LAB HEMATOLOGY METHOD 03/20/2025 7:21 PM EDT [facility] Lymphocytes % 26 % LAB HEMATOLOGY METHOD 03/20/2025 7:21 PM EDT [facility] Monocytes % 12 % LAB HEMATOLOGY METHOD 03/20/2025 7:21 PM EDT [facility] Eosinophils % 2 % LAB HEMATOLOGY METHOD 03/20/2025 7:21 PM EDT [facility] Basophils % 0 % LAB HEMATOLOGY METHOD 03/20/2025 7:21 PM EDT [facility] Immature Granulocytes % 0 % LAB HEMATOLOGY METHOD 03/20/2025 7:21 PM EDT [facility] Neutrophils Absolute 4.05 1.60 - 6.10 10*3/uL LAB HEMATOLOGY METHOD 03/20/2025 7:21 PM EDT [facility] Lymphocytes Absolute 1.77 1.20 - 3.90 10*3/uL LAB HEMATOLOGY METHOD 03/20/2025 7:21 PM EDT [facility] Monocytes Absolute 0.85 0.30 - 0.90 10*3/uL LAB HEMATOLOGY METHOD 03/20/2025 7:21 PM EDT [facility] Eosinophils Absolute 0.11 0.00 - 0.50 10*3/uL LAB HEMATOLOGY METHOD 03/20/2025 7:21 PM EDT [facility] Basophils Absolute 0.03 0.00 - 0.10 10*3/uL LAB HEMATOLOGY METHOD 03/20/2025 7:21 PM EDT [facility] Immature Granulocytes Absolute 0.03 0.00 - 0.06 10*3/uL LAB HEMATOLOGY METHOD 03/20/2025 7:21 PM EDT [facility] Blood Venous blood specimen / Unknown Venipuncture / Unknown 03/20/2025 6:51 PM EDT 03/20/2025 7:08 PM EDT Narrative [facility] - 03/20/2025 7:21 PM EDT Therapeutic decision making should be based on absolute values, rather than percentages. Adrienne HURTADO LAB BLOOD ORDERABLES Courtney l Result Performing Organization Address City/[facility]/ZIP Co de Phone Number [facility] [address] [place] [address] * EKG now - STAT (adult) (03/20/2025 5:31 PM EDT) EKG DIAGNOSIS CLASS Abnormal MUSE ECG Ventricular Rate 60 BPM MUSE ECG Atrial Rate 60 BPM MUSE ECG ND Interval 176 ms MUSE ECG QRSD Interval 86 ms MUSE ECG QT Interval 422 ms MUSE ECG QTC Interval 422 ms MUSE ECG P [place] 53 degrees MUSE ECG R [place] -37 degrees MUSE ECG T Wave [place] 80 degrees MUSE ECG Diagnosis Atrial-paced rhythm MUSE ECG Diagnosis Left axis deviation MUSE ECG Diagnosis T wave abnormality, consider anterior ischemia MUSE ECG Diagnosis Abnormal ECG MUSE ECG Diagnosis MUSE ECG Diagnosis Confirmed by J Carlos Campbell ([id number]) on 03/20/2025 5:41:58 PM MUSE ECG 03/20/2025 5:31 PM EDT 03/20/2025 5:41 PM EDT Adrienne HURTADO ECG ORDERABLES Final Res ult Performing Organization Address City/[facility] Co de Phone Number MUSE ECG [...] on Wed03/20/25 at 1947, Until Wed03/21/25 at 2050, Routine, moderate pain Given 03/21/2025 12:28 PM EDT 2 mg Given 03/21/2025 6:48 AM EDT 2 mg Given 03/20/2025 10:46 PM EDT 2 mg HYDROmorphone (Dilaudid) tablet 3 mg 3 mg, Oral, Every 4 hours PRN, Starting on Wed03/21/25 at 004, Until Wed03/21/25 at 2050, Routine, severe pain [...] (Given - Provid er: Sandy Moseley RN) fentaNYL (Sublimaze) injection 50 mcg (COMPLETED) 50 mcg, Intravenous, Once, 1 dose, On Wed03/20/25 at 1720, STAT 1853 (Given - Provider: Felipa Engle RN) furosemide (Lasix) tablet 20 mg 20 mg, Oral, Daily, First dose on Wed03/21/25 at 1815, Until Discontinued, Routine 1821 (Given - Provid er: Sandy Moseley RN) ondansetron (Zofran) injection 4 mg (COMPLETED) 4 mg, Intravenous, Once, 1 dose, On Wed03/20/25 at 1720, STAT 1853 (Given - Provider: Felipa Engle RN) polyethylene glycol (Miralax) packet 17 g 17 g, Oral, Daily, First dose on Wed03/21/25 at 0900, Until Discontinued, Routine 809 (Given - Provid er: Sandy Moseley RN) [...] on Wed03/20/25 at 1947, Until Wed03/21/25 at 004, Routine, severe pain 2057 (Given - Provider: Shannon Adler RN) HYDROmorphone (Dilaudid) injection 1 mg 1 mg, Intravenous, Every 3 hours PRN, Starting on Wed03/21/25 at 0047, Until Wed03/21/25 at 2050, Routine, breakthrough pain 0106 (Given - Provid er: Stone Hopper)0810 (Given - Provider: Sandy Moseley RN)1554 (Given - Provider: Sandy Moseley RN) HYDROmorphone [...] 6 hours PRN, Starting on Wed03/20/25 at 1946, Until Wed03/21/25 at 2050, Routine, nausea, vomiting ondansetron (Zofran) injection 4 mg(Linked Group 2) 4 mg, Intravenous, Every 6 hours PRN, Starting on Wed03/20/25 at 1946, Until Wed03/21/25 at 2050, Routine, vomiting, nausea ondansetron ODT (Zofran-ODT) disintegrating tablet 4 mg(Linked Group 2) 4 mg, Oral, Every 6 hours PRN, Starting on Wed03/20/25 at 1946, Until Wed03/21/25 at 2050, Routine, nausea, vomiting sodium chloride 0.9 % flush 10 mL(Linked Group 1) 10 mL, Intravenous, As needed, Starting on Wed03/20/25 at 194, Until Wed03/21/25 at 2050, Routine, line care Linked Groups Order Group 1: Insert peripheral IV (COMPLETED) Once, On Wed03/20/25 at 1944, For 1 occurrence And Saline lock IV [...] documented as of this encounter Care Teams Central Supply Nurse Relationship Specialty Start Date End Date Pcp, [address] [place] [address] PCP - General Family Medicine 03/20/25 Isabella Saucedo APRN [address] [place] [address] Referring Physician 02/26/25 Jeannie Mcmillan, RN [facility] [address] [place], [place] [id number] Registered Nurse Transplant Surgery 03/08/25 Ebony Shoemaker [place] [id number] Registered Nurse Transplant Surgery 03/08/25 documented as of this encounter
--- OUTSIDE RECORDS SUMMARY | 2025-04-23 09:00 | XMS_ITS | Encounter Summary ---
Author Organization [place] [address] Care Team Providers Care Hospital Product Specialist Name Role Phone Jan Sin MD Unavailable [phone] Macario Pryor MD Un[facility] Resendez MD Primary Care Provider [phone] Reason for Visit * Reason Comments Annual Exam Encounter Details Date Type Department Care Team (Late st Contact Info) Description 04/23/2025 9:00 AM EDT Office Visit SEP Luis [facility] [place] [phone] Cr Resendez MD [address] [place] [address] TRIST[place] MARTINEZ [id number] Encounter for Medicare annual wellness exam (Primary [...] Under treatment with GI and oncology at [facility]. On once monthly chemotherapy atthis time. [...] Under treatment with GI and oncology at [facility]. On once monthly chemotherapy atthis time. [...] prostate cancer screening Bilateral impacted cerumen Orders: CO REMOVAL IMPACTED CERUMEN IRRIGATION/LVG UNILAT Cerumen impaction [...] visit. If you have a power of united states attorney stute, we should also have a [...] provided to the patient digitally through their [employer] account or with a paper copy if the patient doesn't have an active MyChart Account. A copy of today's progress note with recommendations below is alsoavailable electronically for patients with an active [employer] account per the Federal Cures Act. TheAVS [...] disease) (HCC) Depression Headache(784.0) Hypertension Kidney stone [place] (myocardial infarction) (HCC) 4 times Neuromuscular disorder (HCC) back and left leg Other disorders of kidney and ureter trys to go often Shortness of breath Past Surgical History: Procedure Laterality Date BACK SURGERY 08/30/1997 CARDIAC SURGERY cabg 2 times CARDIAC SURGERY 2019 pace maker CATARACT REMOVAL 08/30/2007 COLONOSCOPY N/A 10/14/2015 COLONOSCOPY snare polypectomy; Surgeon: Poppy Quintero MD; Location: [facility]; Service: Endoscopy CORONARY ANGIOPLASTY WITH STENT PLACEMENT 01/04/2024 [facility] EYE SURGERY sandra cataract HERNIA REPAIR NECK SURGERY 12/06/2024 [facility] SPINAL CORD DECOMPRESSION 08/30/1998 UPPER GASTROINTESTINAL ENDOSCOPY N/A 10/30/2015 ESOPHAGOGASTRODUODENOSCOPY with biopsies; Surgeon: Poppy Quintero MD; Location: [facility]; Service: Endoscopy VASCULAR SURGERY spinal [...] Tablet by mouth daily. 90 Tablet 3 kfjjksqcjlq-torybhmco-htrphnns (TRELEGY ELLIPTA) 100-62.5-25 mcg Inhl Disk with [...] SHAKE WELL nalOXone (NARCAN) 4 mg/actuation Nasl [place], Non-Aerosol 0.1 mL by Nasal route daily [...] Food Insecurity: Patient Declined (12/07/2024) Received from [facility] Hunger Vital Sign Worried About Running Out of Food in the Last Year: Patient declined Ran Out of Food in the Last Year: Patient declined Transportation Needs: Patient Declined (12/07/2024) Received from [facility] PRAPARE - Transportation Lack of Transportation (Medical): Patient declined Lack of Transportation (Non-Medical): Patient declined Housing Stability: Patient Declined (12/07/2024) Received from [facility] Housing Stability Vital Sign Unable [...] Type Priority Associated Diagnoses Orde r Schedule CO REMOVAL IMPACTED CERUMEN IRRIGATION/LVG UNILAT CO Charge Routine Bilateral impacted cerumen Ordered: 04/23/2025 [...] 0.08 <=4.00 ng/mL 04/23/2025 3:49 PM EDT [facility] Blood VENOUS BLOOD / Unknown Venipuncture / Unknown 04/23/2025 9:47 AM EDT 04/23/2025 9:47 AM EDT Narrative [facility] [employer] [facility] - 04/23/2025 3:49 PM EDT The Ricky [...] Resendez MD CHEMISTRY ORDERABLES Final Res ult [facility] [employer] [employer] [address] [facility] , [place] [address] * LIPID PANEL REFLEX (04/23/2025 9:47 AM EDT) Cholesterol 98 <200 mg/dL 04/23/2025 4:37 PM EDT [facility] Comment: < 200 Desirable 200 - 239 Borderline High >= 240 High Triglyceride 38 <150 mg/dL 04/23/2025 4:37 PM EDT [facility] Comment: < 150 Normal 150 - 199 Borderline High 200 - 499 High >= 500 Very High HDL 40 >=40 mg/dL 04/23/2025 4:37 PM EDT [facility] Comment: > 60 Optimal 40 - 60 Acceptable < 40 Low LDL Calculated 47 <100 mg/dL 04/23/2025 4:37 PM EDT [facility] Comment: < 100 Optimal 100 - 129 Near or above optimal 130 - 159 Borderline High 160 - 189 High >= 190 Very High The National Institutes of Health (NIH) equation is used for all lipid panels that report calculated LDL (LDL-C). Non-HDL-C Calculated 58 <=129 mg/dL 04/23/2025 4:37 PM EDT [facility] [employer] [facility] Comment: <130 Desirable 130-159 Above Desirable 160-189 Borderline High 190-219 High >= 220 Very High Fasting Specimen? Yes None 025 4:37 PM EDT [facility] [employer] [facility] Blood VENOUS BLOOD / Unknown Venipuncture / Unknown 04/23/2025 9:47 AM EDT 04/23/2025 9:47 AM EDT Cr Resendez MD CHEMISTRY ORDERABLES Final Res ult Performing Organization Address [facility] de Phone Number [facility] [address] [facility] , [place] [id number] * TSH REFLEX TO FT4 (04/23/2025 9:47 AM EDT) TSH Reflex 0.889 0.270 - 4.200 mcIU/mL 04/23/2025 4:37 PM EDT [facility] [employer] [facility] Blood VENOUS BLOOD / Unknown Venipuncture / Unknown 04/23/2025 9:47 AM EDT 04/23/2025 9:47 AM EDT Narrative [facility] - 04/23/2025 4:37 PM EDT Ingestion of fernanda doses of biotin (>5 mg/day) taken within 8 hours of drawing blood sample can interfere with this immunoassay test. us Cr Resendez MD CHEMISTRY ORDERABLES Final Res ult Performing Organization Address [facility] de Phone Number [facility] [address] [facility] , [place] [address] * (ABNORMAL) CBC WITH DIFF (04/23/2025 9:47 AM EDT) WBC 7.3 3.7 - 10.3 x10(3)/mcL 04/23/2025 4:08 PM EDT [facility] RBC 4.77 4.60 - 6.10 x10(6)/mcL 04/23/2025 4:08 PM EDT [facility] [employer], [facility] Hgb 15.3 13.7 - 17.5 [...] 4:08 PM EDT [facility] [place] # 1.2(H) 0.3 - 0.9 x10(3)/mcL 04/23/2025 [...] sult [facility] [address] [facility] , [place] [address] * (ABNORMAL) COMPREHENSIVE METABOLIC PANEL (04/23/2025 9:47 [...] 04/23/2025 4:37 PM EDT [facility], [facility] Total Protein 8.3 6.4 - 8.3 gm/dL 04/23/2025 4:37 PM EDT [facility] Bili Total 1.2 0.2 - 1.4 mg/dL 04/23/2025 4:37 PM EDT [facility] ALT 26 <=41 U/L 04/23/2025 4:37 PM EDT [facility] AST 74(H) <=40 U/L 04/23/2025 4:37 PM EDT [facility] [employer], [facility] Alk Phos 142(H) 40 - 129 U/L 04/23/2025 4:37 PM EDT [facility] [employer], [facility] eGFR (CKD-EPIcr 2020) 96 >=60 mL/min/1.7 3 m2 04/23/2025 4:37 PM EDT [facility] [employer], [facility] Comment:Estimated GFR was ca lculated using the CKD-EPIcr (2020) equation refit without race. The equation is recommended by the National Kidney Foundation - [place] Society of Nephrology Task Force. Blood VENOUS BLOOD / Unknown Venipuncture / Unknown 04/23/2025 9:47 AM EDT 04/23/2025 9:47 AM EDT us Cr Resendez MD CHEMISTRY ORDERABLES Final Res ult [facility] [employer], [facility] [address] [facility] , [place] [address] * (ABNORMAL) HEMOGLOBIN A1C (04/23/2025 9:47 AM EDT) Hgb A1C 5.7(H) 4.2 - 5.6 % 04/23/2025 5:18 PM EDT [facility] [employer], [facility] Est. Avg Glucose 117 mg/dL 04/23/2025 5:18 PM EDT [facility] [employer], [facility] Blood VENOUS BLOOD / Unknown Venipuncture / Unknown 04/23/2025 9:47 AM EDT 04/23/2025 9:47 AM EDT Narrative [facility] - 04/23/2025 5:18 PM EDT REFERENCE RANGE: Normal: 4.0-5.6% Pre-diabetes: 5.7-6.4% Provisional diagnosis of diabetes: >6.4% Hgb F>10% and anything which shortens red cell survival, such as hemolytic anemia, or unstable hemoglobin variants such as HbSS, HbSC, or HbCC, will lower the HbA1c value associated with a given level of glycemic control. us Cr Resendez MD CHEMISTRY ORDERABLES Final Res ult [facility] [address] [facility] , [place] [address] documented in this encounter Visit Diagnoses Diagnosis [...] documented as of this encounter Care Teams Hospital Product Specialist Relationship Specialty Start Date End Date Macario Pryor MD [address] [place] [address] TRISTIAN NAILS [address] PCP - Hematology/Oncology Internal Medicine-Medical Oncology 11/12/15 Cr Resendez MD [address] [place] [address] TRISTIAN MARTINEZ [address] PCP - General Family Medicine 11/24/21 Jan Sin MD [address] [place] [address] TRISTIAN NAILS [id number] Internal Medicine-Cardiovascul ar Disease 08/28/14 documented as of this encounter
--- OUTSIDE RECORDS SUMMARY | 2025-04-23 09:30 | XMS_ITS | Encounter Summary ---
Author Organization [facility] [place] [address] Care Team Providers Care Making Machine Catcher Name Role Phone Jan Sin MD Unavailable [phone] Macario Pryor MD Unavailable Cr Rodriguez MD Primary Care Provider [phone] Reason for Visit * Reason Comments Care Management - Face To Face Care Transition Advance Care Planning Encounter Details Date Type Department Care Team (Latest Contact Info) Description 04/23/2025 9:30 AM EDT Clinical Support [facility] [place] [facility] [address] [place] [address] Elizabeth Reynoso, NIURKA Encounter for support [...] presents for follow up visit with Office Side Boss (OCC) Reason for visit: Advanced Care Planning Visit Type: Face to Face Assessment: bereavement coordinator met with patient and spouse to [...] Educated patient on: Advanced Care Planning Handouts: [place] Living Will x 2 copies Handouts provided in person Care Coordination Business Card Goals: One-time assessment Next Steps: Side Boss contact information given / reviewed Notes: No identified SDOH concerns after SDOH assessment review documented in this encounter Miscellaneous Notes * ACP (Advance Care Planning) - Elizabeth Reynoso RN - 04/23/2025 9:30 AM EDT Advance Care Planning discussion: ACP discussion: This news writer and patient addressed ACP including explanation [...] documented as of this encounter Care Teams Making Machine Catcher Relationship Specialty Start Date End Date Macario Pryor MD [address] [place] [address] TRIST[place] NAILS [address] PCP - Hematology/Oncology Internal Medicine-Medical Oncology 11/12/15 Cr Resendez MD [address] [place] [address] TRISTIAN MARTINEZ [address] PCP - General Family Medicine 11/24/21 Jan Sin MD [address] [place] [address] TRIST[place] NAILS [address] Internal Medicine-Cardiovascul ar Disease 08/28/14 documented as of this encounter
--- OUTSIDE RECORDS SUMMARY | 2025-05-01 16:53 | XMS_ITS | Encounter Summary ---
Author Organization Healthcare Address [address] [place] [address] Care Team Providers Care Dope Mixer Name Role Phone Isabella Saucedo Phong PHOTOFINISHING LABORATORY WORKER Unavailable [phone] Jeannie Mcmillan RN Unavailable [phone] Ebony Shoemaker Unavailable [phone] Pcp, No Primary Care Provider Unavailabl e Rodney Gonzáles MD Unavailable [phone] Reason for Referral * Consultation (Routine) - Authorized Specialty Diagnoses / Procedures Referred By Contac t Referred To Contact Diagnoses RUQ abdominal pain Ang Will MD [address] [place] [address] Phone: tel: fax: Referral ID Status Reason Start Date Expiration Date V isits Requested Visits Authorized [id number] Authorized 05/05/2025 11/04/2026 1 1 Reason for Visit * Reason Comments Abdominal Pain * Auth/Cert (Routine) Specialty Diagnoses / Procedures Referred By Contarjun t Referred To Contact Diagnoses Abdominal pain Liver Cancer Britney Rai MD [address] [place] [address] Phone: tel: fax: PAV A Inpatient [address] [place] [address] Referral ID Status Reason Start Date Expiration Date Visits Re quested Visits Authorized [id number] 1 1 Encounter Details Date Type Department Care Team (Latest Contact Info) Description 05/01/2025 4:53 PM EDT - 05/05/2025 2:45 PM EDT Hospital Encounter [facility] A Inpatient [address] [place] [address] Willy Saleh MD [address] [place] [address] Britney Rai MD [address] [place] [address] Ang Will MD [address] [place] [address] Generalized abdominal pain (Primary Dx); [...] any time in the past 12 m [facility], were you homeless or living in a assisted (including now)? No 05/02/2025 [facility] Utilities Answer Date Recorded In the [...] Will MD PCP name and Address: Pcp, [address] [address] Referring provider name and address: Cr Lazo MD [address] [place] [address] Chief Concern, Brief History of Present Illness, and Hospital Course Rl Steward is a 65 y.o. male PMHx of COPD, tobacco dependence, ischemic heart disease, coronaryartery disease, anxiety, depression, chronic back pain, decompensated cirrhosis, and newly diagnosed hepatocellular carcinoma that presented to the emergency department as a transfer from [facility] with RUQ pain and concern for [...] #Cancer related pain (POA0 -Receiving chemotherapy at [facility]. Last dose of chemo was on [...] overall morbidity & mortality. -Monitor albumin -Consult Product Evangelist -Continue megace #Nicotine dependence (POA) -Smokes about [...] Ellipta 100-62.5-25 MCG/ACT aerosol powder Generic drug: Ujhuikogoyx-Ftzmvmizf-Eoeyga INHALE 1 PUFF INTO THE LUNGS DAILY [...] Flowsheets (Taken 05/05/2025 0921) Pain Management Interventions: yzdswr-hhb-ntlak dosing utilized medication (see MAR) care clustered [...] Flowsheets (Taken 05/05/2025 0921) Pain Management Interventions: vnjwar-xuj-ibxdz dosing utilized medication (see MAR) care clustered [...] Flowsheets (Taken 05/05/2025 0921) Pain Management Interventions: qdxwlo-qkl-tabqf dosing utilized medication (see MAR) care clustered [...] Comfort Flowsheets (Taken 05/05/202548) Pain Management Interventions: xdkqat-ywa-emsbs dosing utilized care clustered pain management plan [...] Plan Flowsheets (Taken 05/05/202548) Pain Management Interventions: icrxgs-sch-hbfzk dosing utilized care clustered pain management plan [...] Inhalation, 4x daily PRN, Crane, Lexi L, PHOTOFINISHING LABORATORY WORKER calcium carbonate (Tums) chewable tablet 500 mg, 500 mg, Oral, q4h PRN, Crane, Lexi L, PHOTOFINISHING LABORATORY WORKER cyclobenzaprine (Flexeril) tablet 5 mg, 5 mg, Oral, BID PRN, Crane, Lexi L, PHOTOFINISHING LABORATORY WORKER, 5 mg at 736 escitalopram (Lexapro) tablet 20 mg, 20 mg, Oral, Daily, Crane, Lexi L, PHOTOFINISHING LABORATORY WORKER, 20 mg at 05/04/25826 furosemide (Lasix) tablet 20 mg, 20 mg, Oral, Daily, Crane, Lexi L, PHOTOFINISHING LABORATORY WORKER, 20 mg at 09/05/25 0827 HYDROmorphone (Dilaudid) injection 0.5 mg, 0.5 mg, Intravenous, q4h PRN, Rosa Maria Lexi L, PHOTOFINISHING LABORATORY WORKER, 0.5 mg at 05/04/25 1405 HYDROmorphone (Dilaudid) tablet 3 mg, 3 mg, Oral, q4h PRN, Rosa Maria Lexi L, PHOTOFINISHING LABORATORY WORKER, 3 mg at 05/03/25 1615 Tiotropium [place] Monohydrate (Spiriva Respimat) 2.5 MCG/ACT inhaler 2 puff, 2 puff, Inhalation, Daily, 2 puff at 05/04/25 0828 AND mometasone-formoterol (Dulera 100) 100-5 MCG/ACT inhaler 2 puff, 2 puff, Inhalation, BID, Bhavya Craneoya L, PHOTOFINISHING LABORATORY WORKER, 2 puff at 05/04/25 0828 nicotine (Nicoderm CQ) 21 MG/24HR patch 1 patch, 1 patch, Transdermal, Daily, Lexi Crane, PHOTOFINISHING LABORATORY WORKER,1 patch at 05/04/25 0827 piperacillin-tazobactam (Zosyn) 4.5 g in sodium chloride 0.9% 100 mL IVPB (vial adapter required), 4.5 g, Intravenous, q6h, Saadia Cranea L, PHOTOFINISHING LABORATORY WORKER, Last Rate: 36.7 mL/hr at 05/04/25 1405, 4.5 g at 05/04/25 1405 [COMPLETED] Insert peripheral IV, , , Once AND [COMPLETED] Saline lock IV, , , Once AND sodium chloride 0.9 % flush 10 mL, 10 mL, Intravenous, q12h, 10 mL at 05/04/25 0121 AND sodium chloride 0.9 % flush 10 mL, 10 mL, Intravenous, PRN, Bhavya Craneoya L, PHOTOFINISHING LABORATORY WORKER Cosigned by Tremaine Waddell MD at 05/07/2025 [...] the emergency department as a transfer from [facility] with RUQ pain and concern for [...] #Cancer related pain (POA0 -Receiving chemotherapy at [facility]. Last dose of chemo was on [...] overall morbidity & mortality. -Monitor albumin -Consult Product Evangelist -Continue megace #Nicotine dependence (POA) -Smokes about [...] Note Rl Steward 65 y.o. male CSN: [id number] Admission: 05/01/2025 4:53 PM Primary Problem: Abdominal [...] RUQ pain on palpation, negative rosario sign JFEF AAOx4. No gross deficits. EXT No cyanosis. [...] Inhalation, 4x daily PRN, Crane, Lexi L, PHOTOFINISHING LABORATORY WORKER calcium carbonate (Tums) chewable tablet 500 mg, 500 mg, Oral, q4h PRN, Crane, Lexi L, PHOTOFINISHING LABORATORY WORKER cyclobenzaprine (Flexeril) tablet 5 mg, 5 mg, Oral, BID PRN, Crane, Lexi L, PHOTOFINISHING LABORATORY WORKER, 5 mg at 736 escitalopram (Lexapro) tablet 20 mg, 20 mg, Oral, Daily, Crane, Lexi L, PHOTOFINISHING LABORATORY WORKER, 20 mg at 05/03/25 08 furosemide (Lasix) tablet 20 mg, 20 mg, Oral, Daily, Crane, Lexi L, PHOTOFINISHING LABORATORY WORKER, 20 mg at 05/03/25 0802 HYDROmorphone (Dilaudid) injection 0.5 mg, 0.5 mg, Intravenous, q4h PRN, Crane, Lexi L, PHOTOFINISHING LABORATORY WORKER, 0.5 mg at 05/03/25 1406 HYDROmorphone (Dilaudid) tablet 3 mg, 3 mg, Oral, q4h PRN, Crane, Lexi L, PHOTOFINISHING LABORATORY WORKER, 3 mg at 05/02/25 0736 Tiotropium [place] Monohydrate (Spiriva Respimat) 2.5 MCG/ACT inhaler 2 puff, 2 puff, Inhalation, Daily, 2 puff at 05/03/25 0803 AND mometasone-formoterol (Dulera 100) 100-5 MCG/ACT inhaler 2 puff, 2 puff, Inhalation, BID, Crane, Lexi L, PHOTOFINISHING LABORATORY WORKER, 2 puff at 05/03/25 0804 nicotine (Nicoderm CQ) 21 MG/24HR patch 1 patch, 1 patch, Transdermal, Daily, Crane, Lexi L, PHOTOFINISHING LABORATORY WORKER,1 patch at 05/03/25 0802 piperacillin-tazobactam (Zosyn) 4.5 g in sodium chloride 0.9% 100 mL IVPB (vial adapter required), 4.5 g, Intravenous, q6h, Crane, Lexi L, PHOTOFINISHING LABORATORY WORKER, Last Rate: 36.7 mL/hr at 05/03/25 1230, 4.5 g at 05/03/25 1230 [COMPLETED] Insert peripheral IV, , , Once AND [COMPLETED] Saline lock IV, , , Once AND sodium chloride 0.9 % flush 10 mL, 10 mL, Intravenous, q12h, 10 mL at 05/02/25 2325 AND sodium chloride 0.9 % flush 10 mL, 10 mL, Intravenous, PRN, Crane, Lexi L, PHOTOFINISHING LABORATORY WORKER Cosigned by Tremaine Waddell MD at 05/07/2025 [...] the emergency department as a transfer from [facility] with RUQ pain and concern for [...] #Cancer related pain (POA0 -Receiving chemotherapy at [facility]. Last dose of chemo was on [...] overall morbidity & mortality. -Monitor albumin -Consult Product Evangelist -Continue megace #Nicotine dependence (POA) -Smokes about [...] tobacco dependence, and hepatocellular carcinoma presenting to [facility] on 05/01/2025 with right upper quadrant [...] Inhalation 4x daily PRN Crane, Lexi L, PHOTOFINISHING LABORATORY WORKER calcium carbonate (Tums) chewable tablet 500 mg 500 mg Oral q4h PRN Crane, Lexi L, PHOTOFINISHING LABORATORY WORKER cyclobenzaprine (Flexeril) tablet 5 mg 5 mg Oral BID PRN Rosa Maria Lexi L, PHOTOFINISHING LABORATORY WORKER 5 mg at 05/02/25 0736 escitalopram (Lexapro) tablet 20 mg 20 mg Oral Daily Saadia Cranea L, PHOTOFINISHING LABORATORY WORKER 20 mg at 05/03/25 0802 furosemide (Lasix) tablet 20 mg 20 mg Oral Daily Crane, Lexi L, PHOTOFINISHING LABORATORY WORKER 20 mg at 05/03/25 0802 HYDROmorphone (Dilaudid) injection 0.5 mg 0.5 mg Intravenous q4h PRN Saadia Cranea L, PHOTOFINISHING LABORATORY WORKER 0.5 mg at05/03/25 1406 HYDROmorphone (Dilaudid) tablet 3 mg 3 mg Oral q4h PRN Saadia Cranea L, PHOTOFINISHING LABORATORY WORKER 3 mg at 05/03/25 1615 Tiotropium [place] Monohydrate (Spiriva Respimat) 2.5 MCG/ACT inhaler 2 puff 2 puff Inhalation Daily Saadia Cranea Vega, PHOTOFINISHING LABORATORY WORKER 2 puff at 05/03/25 0803 And mometasone-formoterol (Dulera 100) 100-5 MCG/ACT inhaler 2 puff 2 puff Inhalation BID Saadia Cranea Vega, PHOTOFINISHING LABORATORY WORKER 2 puff at 05/03/25 0804 nicotine (Nicoderm CQ) 21 MG/24HR patch 1 patch 1 patch Transdermal Daily Saadia Cranea Vega, PHOTOFINISHING LABORATORY WORKER 1 patch at 05/03/25 0802 piperacillin-tazobactam (Zosyn) 4.5 g in sodium chloride 0.9% 100 mL IVPB (vial adapter required) 4.5 g Intravenous q6h Rosa Maria Lexi Vega, PHOTOFINISHING LABORATORY WORKER 36.7 mL/hr at 05/03/25 1230 4.5 g at 09/04/25 1230 sodium chloride 0.9 % flush 10 mL 10 mL Intravenous q12h Lexi Crane, PHOTOFINISHING LABORATORY WORKER 10 mL at 05/02/25 2325 And sodium chloride 0.9 % flush 10 mL 10 mL Intravenous PRN Lexi Crane PHOTOFINISHING LABORATORY WORKER Cosigned by Kasey Blackwell MD at 05/03/2025 [...] hepatocellular carcinoma. We have been consultedas the lint cleaner have concerns that his pain is related [...] patient and his Kasey Blackwell MD, FACS air brake mechanic Trauma Acute Care Surgery * Significant [...] Review Outcome: Ongoing, Progressing Flowsheets (Taken 05/03/2025 0450) Progress: no change Plan of Care Reviewed [...] the emergency department as a transfer from [facility] with RUQ pain and concern for [...] #Cancer related pain (POA0 -Receiving chemotherapy at [facility]. Last dose of chemo was on [...] overall morbidity & mortality. -Monitor albumin -Consult Product Evangelist -Continue megace #Nicotine dependence (POA) -Smokes about [...] Note Rl Steward 65 y.o. male CSN: [id number] Admission: 05/01/2025 4:53 PM Primary Problem: Abdominal pain Pulpit Operator reviewed chart and spoke with patient and spouse at bedside to complete this Initial Case Management Assessment. PCP: Cr Resendez MD in [place], [place] Emergency Contact: Extended Emergency Contact Information Primary Emergency Contact: Ashley Steward [facility] Relation: Spouse Preferred language: Mauritian Senior Energy Consultant needed? No Insurance: Primary Visit Coverage Payer Plan Sponsor Code Group Number Group Name MEDICARE MEDICARE A & B Primary Visit Coverage Subscriber Subscriber ID Subscriber Name Subscriber SSN Subscriber Address [id number] [id number] [address] [place] [address] Secondary Visit Coverage Payer Plan Sponsor Code Group Number Group Name [place] [facility] Secondary Visit Coverage Subscriber Subscriber ID Subscriber Name Subscriber SSN Subscriber Address [id number] [address] [id number] [address] [place] [address] Patient information: Primary Caregiver: Self Support System: Immediate family Daily Living Activities: Functional Status: Independent Living Arrangements: Spouse/Significant other Type of Residence: Private residence, Multi Level (stays on main floor; 2 steps for entry) [address] [facility] [address] Current DME: Equipment Currently Used at Home: none Income Information: Income/Expense Information: Income meets expenses Anticipated Discharge Date: TBD Patient's Discharge Goal: Return home Assistance Available at Discharge: Spouse & son Discharge Transport: Spouse Follow Up Transport: Spouse/Son Home Health / Home Infusion / Outpatient Dialysis Services: None Living Will/Advance Directive/Power of Hand Crown Pouncer /Guardian: None Additional Comments: Pt confirmed address, EC, and insurance. Pt sees Cr Resendez in [place], [place] for primary care. Pt lives with [...] possible cholecystitis and was subsequently transferred to [facility] for further evaluation. Seen by [...] concerns. Keaton Ponce MD PGY-5 Gastroenterology Fellow [facility] [1] Past Medical History: Diagnosis Date [...] Daily furosemide, 20 mg, Oral, Daily Tiotropium [place] Monohydrate, 2 puff, Inhalation, Daily And mometasone-formoterol, [...] the emergency department as a transfer from [facility] with RQU pain. Mr. Steward states [...] Of note he is receiving chemotherapy at [facility]. He has only received 1 dose [...] Food Insecurity: Patient Declined (12/07/2024) Received from [facility] Hunger Vital Sign Within the past 12 months, you worried that your food would run out before you got the money to buymore.: Patient declined Within the past 12 months, the food you bought just didn't last and you didn't have money to get more.: Patient declined Transportation Needs: Patient Declined (12/07/2024) Received from [facility] PRAPARE - Transportation Lack of Transportation (Medical): Patient declined Lack of Transportation (Non-Medical): Patient declined Physical Activity: Not on file Stress: Not on file Social Connections: Not on file Intimate Partner Violence: Not on file Housing Stability: Patient Declined (12/07/2024) Received from [facility] Housing Stability Vital Sign In the last 12 months, was there a time when you were not able to pay the mortgage or rent on time?: Patient declined In the past 12 months, how many times have you moved where you were living?: 0 At any time in the past 12 months, were you homeless or living in a assisted (including now)?: Patient declined ROS: Review of [...] Abnormal Ventricular Rate 70 Atrial Rate 70 RI Interval 138 QRSD Interval 86 QT Interval 414 QTC Interval 447 P Stevenson 50 R Stevenson -53 T Wave Stevenson 43 Diagnosis Normal sinus rhythm with sinus [...] the emergency department as a transfer from [facility] with RQU pain and concern for [...] #Cancer related pain (POA0 -Receiving chemotherapy at [facility]. Last dose of chemo was on [...] overall morbidity & mortality. -Monitor albumin -Consult Product Evangelist -Continue megace #Nicotine dependence (POA) -Smokes about [...] APRN Department of Internal Medicine Division of [facility] Medicine Secure chat preferred Pager: [phone] [1] Past Medical History: Diagnosis Date COPD [...] Requesting Service: Emergency History Of Present Illness lR Steward is a 65 y.o. male presenting [...] None Disposition Admit Admitting/Attending Physician: BRITNEY RAI [[id number]] Provider Care Team: JHOANA 14 [[id number]] Are [...] 05/01/2025 4:52 PM EDT Patient presents from [facility] where he was seen for RUQ [...] - 99 mg/dL 05/04/2025 5:27 AM EDT [facility] BUN, Plasma 11 8 - 23 mg/dL 05/04/2025 5:27 AM EDT [facility] Creatinine, Plasma 0.81 0.70 - 1.20 mg/dL 05/04/2025 5:27 AM EDT [facility] BUN/Creatinine Ratio 14 05/04/2025 5:27 AM EDT [facility] Sodium, Plasma 138 136 - 145 mmol/L 05/04/2025 5:27 AM EDT [facility] Potassium, Plasma 3.3(L) 3.6 - 4.9 mmol/L 05/04/2025 5:27 AM EDT [facility] Chloride, Plasma 106 97 - 107 mmol/L 05/04/2025 5:27 AM EDT [facility] CO2, Plasma 20(L) 22 - 29 mmol/L 05/04/2025 5:27 AM EDT [facility] Anion Gap 12 6 - 16 mmol/L 05/04/2025 5:27 AM EDT [facility] Total Calcium, Plasma 8.5(L) 8.9 - 10.2 mg/dL 05/04/2025 5:27 AM EDT [facility] Total Protein 6.4 6.3 - 7.9 g/dL 05/04/2025 5:27 AM EDT [facility] Albumin, Plasma 2.6(L) 3.5 - 5.2 g/dL 05/04/2025 5:27 AM EDT [facility] AST, Plasma 140(H) 10 - 50 U/L 05/04/2025 5:27 AM EDT [facility] ALT, Plasma 21 10 - 50 U/L 05/04/2025 5:27 AM EDT [facility] Alkaline Phosphatase, Plasma 186(H) 40 - 115 U/L 05/04/2025 5:27 AM EDT [facility] Total Bilirubin, Plasma 2.1(H) 0.2 - 1.1 mg/dL 05/04/2025 5:27 AM EDT [facility] eGFRcr 96.6 mL/min/1.7 3m*2 05/04/2025 5:27 AM EDT [facility] Comment:Reported eGFRcr in m L/min/1.73m2 is based the CKD-EPI 2020 equation that does not use a race coefficient. Blood Venous blood specimen / Unknown Venipuncture / Unknown 05/04/2025 4:33 AM EDT 05/04/2025 4:44 AM EDT us Ang Will MD LAB BLOOD ORDERABLES Courtney vega Result [facility] [address] [place] [address] * (ABNORMAL) CBC W/O Differential (05/04/2025 4:33 AM EDT) WBC Count 4.71 3.70 - 10.30 10*3/uL LAB HEMATOLOGY METHOD 05/04/2025 5:18 AM EDT [facility] RBC Count 4.16(L) 4.60 - 6.10 10*6/uL LAB HEMATOLOGY METHOD 05/04/2025 5:18 AM EDT [facility] HGB 13.1(L) 13.7 - 17.5 g/dL LAB HEMATOLOGY METHOD 05/04/2025 5:18 AM EDT [facility] HCT 38.4(L) 40.0 - 51.0 % LAB HEMATOLOGY METHOD 05/04/2025 5:18 AM EDT [facility] Platelet Count 117(L) 155 - 369 10*3/uL LAB HEMATOLOGY METHOD 05/04/2025 5:18 AM EDT [facility] MCV 92 79 - 98 fL LAB HEMATOLOGY METHOD 05/04/2025 5:18 AM EDT [facility] MCH 31.5 26.0 - 32.0 pg LAB HEMATOLOGY METHOD 05/04/2025 5:18 AM EDT [facility] MCHC 34.1 30.7 - 35.5 g/dL LAB HEMATOLOGY METHOD 05/04/2025 5:18 AM EDT [facility] RDW 15.5(H) 11.5 - 14.5 % LAB HEMATOLOGY METHOD 05/04/2025 5:18 AM EDT [facility] MPV 11.5 8.8 - 12.5 fL LAB HEMATOLOGY METHOD 05/04/2025 5:18 AM EDT [facility] nRBC 0.0 <=0.0 per 100 WBCs LAB HEMATOLOGY METHOD 05/04/2025 5:18 AM EDT [facility] Blood Venous blood specimen / Unknown Venipuncture / Unknown 05/04/2025 4:33 AM EDT 05/04/2025 4:45 AM EDT Ang Will MD LAB BLOOD ORDERABLES Courtney l Result Performing Organization Address City/[facility]/ZIP Co de Phone Number [facility] [address] [place] [address] * (ABNORMAL) Creatine Kinase, Total, Plasma (05/04/2025 4:33 AM EDT) Creatine Kinase, Plasma 33(L) 49 - 320 U/L 05/04/2025 5:[address] [facility] Blood Venous blood specimen / Unknown Venipuncture / Unknown 05/04/2025 4:33 AM EDT 05/04/2025 4:44 AM EDT Ang Will MD LAB BLOOD ORDERABLES Courtney l Result Performing Organization Address [facility] de [place] [address] * Phosphatidylethanol (PEth), Whole Blood, Quantitative (05/04/2025 4:33 AM EDT) Pathologist [facility] PEth 16:0/18:2 (PLPEth) <10 ng/mL 05/06/2025 12:20 PM EDT [facility] ([facility]) PEth 16:0/18:1 (POPEth) <10 ng/mL 05/06/2025 12:20 PM EDT [facility] ([facility]) EER Peth See Note 05/06/2025 12:20 PM EDT [facility] ([facility]) PEth Interpretation See Comment 05/06/2025 12:20 PM EDT [facility] ([facility]) Blood Venous blood specimen / Unknown Venipuncture / Unknown 05/04/2025 4:33 AM EDT 05/04/2025 4:42 AM EDT Narrative [facility] ([facility]) - 05/06/2025 12:20 PM EDT PEth 16:0/18:1 (POPEth) Less than 10 ng/mL............Not detected Less than 20 ng/mL............Abstinence or light alcohol consumption 20 - 200 ng/mL................Moderate alcohol consumption Greater than 200 ng/mL........Heavy alcohol consumption or chronic alcohol use (Reference: Hannah Correa and Trice Azevedo 2018 J. Forensic Sci) Reference ranges are not well established. Authorized individuals can access the [employer] Enhanced Report with an [employer] Connect account using the following link. Your local lab can assist you in obtaining the patient report if you don't have a Connect account. [email or web address] Phosphatidylethanol (PEth) is a group of phospholipids [...] disease may have falsely elevated PEth concentrations (Martah FRITZ et al 2018, Alcoholism Clinical & Experimental Research). This test was developed and its performance characteristics determined by [facility]. It has not been cleared or approved by the U.S. Food and Drug Administration. This test was performed in a CLIA-certified laboratory and is intended for clinical purposes. Performed By: [facility] [address] [place] [id number] Orientation And Mobility Instructor: David Marx MD, PhD CLIA Number: [id number] us Ang Will MD LAB REF LAB BLOOD AND FLU ID ORD Final Result [facility] [address]) [place] [address] * (ABNORMAL) Comprehensive metabolic panel (05/03/2025 4:00 AM EDT) Glucose, Plasma 96 74 - 99 mg/dL 05/03/2025 4:51 AM EDT [facility] BUN, Plasma 13 8 - 23 mg/dL 05/03/2025 4:51 AM EDT [facility] Creatinine, Plasma 0.86 0.70 - 1.20 mg/dL 05/03/2025 4:51 AM EDT [facility] BUN/Creatinine Ratio 15 05/03/2025 4:51 AM EDT [facility] Sodium, Plasma 137 136 - 145 mmol/L 05/03/2025 4:51 AM EDT [facility] Potassium, Plasma 3.6 3.6 - 4.9 mmol/L 05/03/2025 4:51 AM EDT [facility] Chloride, Plasma 103 97 - 107 mmol/L 05/03/2025 4:51 AM EDT [facility] CO2, Plasma 22 22 - 29 mmol/L 05/03/2025 4:51 AM EDT [facility] Anion Gap 12 6 - 16 mmol/L 05/03/2025 4:51 AM EDT [facility] Total Calcium, Plasma 9.0 8.9 - 10.2 mg/dL 05/03/2025 4:51 AM EDT [facility] Total Protein 7.1 6.3 - 7.9 g/dL 05/03/2025 4:51 AM EDT [facility] Albumin, Plasma 3.0(L) 3.5 - 5.2 g/dL 05/03/2025 4:51 AM EDT [facility] AST, Plasma 205(H) 10 - 50 U/L 05/03/2025 4:51 AM EDT [facility] Comment:Hemolyzed, result ma y be falsely increased. ALT, Plasma 23 10 - 50 U/L 05/03/2025 4:51 AM EDT [facility] Alkaline Phosphatase, Plasma 220(H) 40 - 115 U/L 05/03/2025 4:51 AM EDT [facility] Total Bilirubin, Plasma 1.7(H) 0.2 - 1.1 mg/dL 05/03/2025 4:51 AM EDT [facility] eGFRcr 94.9 mL/min/1.7 3m*2 05/03/2025 4:51 AM EDT [facility] Comment:Reported eGFRcr in m L/min/1.73m2 is based the CKD-EPI 2020 equation that does not use a race coefficient. Blood Venous blood specimen / Unknown Venipuncture / Unknown 05/03/2025 4:00 AM EDT 05/03/2025 4:21 AM EDT Ang Will MD LAB BLOOD ORDERABLES Courtney ferrari Result [facility] [address] [place] [address] * (ABNORMAL) CBC W/O Differential (05/03/2025 4:00 AM EDT) WBC Count 5.46 3.70 - 10.30 10*3/uL LAB HEMATOLOGY METHOD 05/03/2025 4:34 AM EDT [facility] RBC Count 4.39(L) 4.60 - 6.10 10*6/uL LAB HEMATOLOGY METHOD 05/03/2025 4:34 AM EDT [facility] HGB 14.0 13.7 - 17.5 g/dL LAB HEMATOLOGY METHOD 05/03/2025 4:34 AM EDT [facility] HCT 41.1 40.0 - 51.0 % LAB HEMATOLOGY METHOD 05/03/2025 4:34 AM EDT [facility] Platelet Count 122(L) 155 - 369 10*3/uL LAB HEMATOLOGY METHOD 05/03/2025 4:34 AM EDT [facility] MCV 94 79 - 98 fL LAB HEMATOLOGY METHOD 05/03/2025 4:34 AM EDT [facility] MCH 31.9 26.0 - 32.0 pg LAB HEMATOLOGY METHOD 05/03/2025 4:34 AM EDT [facility] MCHC 34.1 30.7 - 35.5 g/dL LAB HEMATOLOGY METHOD 05/03/2025 4:34 AM EDT [facility] [facility] RDW 15.3(H) 11.5 - 14.5 % LAB HEMATOLOGY METHOD 05/03/2025 4:34 AM EDT [facility] MPV 12.5 8.8 - 12.5 fL LAB HEMATOLOGY METHOD 05/03/2025 4:34 AM EDT [facility] nRBC 0.0 <=0.0 per 100 WBCs LAB HEMATOLOGY METHOD 05/03/2025 4:34 AM EDT [facility] Blood Venous blood specimen / Unknown Venipuncture / Unknown 05/03/2025 4:00 AM EDT 05/03/2025 4:24 AM EDT us Ang Will MD LAB BLOOD ORDERABLES Courtney l Result [facility] [address] [place] [address] * (ABNORMAL) Bilirubin, direct (05/02/2025 1:42 PM EDT) Conjugated Bilirubin, Plasma 0.7(H) <=0.3 mg/dL 05/02/2025 2:51 PM EDT [facility] Blood Venous blood specimen / Unknown Venipuncture / Unknown 05/02/2025 1:42 PM EDT 05/02/2025 2:10 PM EDT us Ang Will MD LAB BLOOD ORDERABLES Courtney l Result [facility] [address] [place] [address] * (ABNORMAL) Bilirubin, direct (05/02/2025 2:07 AM EDT) Conjugated Bilirubin, Plasma 1.1(H) <=0.3 mg/dL 05/02/2025 3:20 PM EDT [facility] Blood Venous blood specimen / Unknown Venipuncture / Unknown 05/02/2025 2:07 AM EDT 05/02/2025 2:20 AM EDT Ang Will MD LAB BLOOD ORDERABLES Courtney l Result Performing Organization Address [facility]/ZIP Co de Phone Number [facility] [address] [place] [address] * (ABNORMAL) Lactate, venous (05/02/2025 2:07 AM EDT) Lactate, Venous, Whole Blood 3.0(H) 0.5 - 2.2 mmol/L LAB HEMATOLOGY METHOD 05/02/2025 2:21 AM EDT [facility] Blood Venous blood specimen / Unknown Venipuncture / Unknown 05/02/2025 2:07 AM EDT 05/02/2025 2:19 AM EDT us Lexi Crane APRN LAB BLOOD ORDERABLES Final Re sult Performing Organization Address [facility]/ZIP Co de Phone Number [facility] [address] [place] [address] * (ABNORMAL) Prothrombin Time/INR (05/02/2025 2:07 AM EDT) Prothrombin Time 14.5(H) 12.0 - 14.3 sec LAB COAGULATION METHOD 05/02/2025 2:44 AM EDT [facility] INR 1.1 0.9 - 1.1 LAB COAGULATION METHOD 05/02/2025 2:44 AM EDT [facility] Blood Venous blood specimen / Unknown Venipuncture / Unknown 05/02/2025 2:07 AM EDT 05/02/2025 2:20 AM EDT Narrative [facility] - 05/02/2025 2:44 AM EDT OPTIMAL INR RANGES FOR PATIENT ON ORAL ANTICOAGULANT THERAPY Prevention of venous thromboembolism INR 2.0 to 3.0 In patients with heart disease: Atrial fibrillation INR 2.0 to 3.0 Valvular heart disease INR 2.0 to 3.0 Tissue heart valves INR 2.0 to 3.0 Mechanical prosthetic valves INR 2.5 to 3.5 Prevention of recurrent ID INR 2.5 to 3.5 us Lexi Crane [employer] LAB BLOOD ORDERABLES Final Re sult [facility] [address] [place] [address] * (ABNORMAL) Comprehensive metabolic panel (05/02/2025 2:07 AM EDT) Glucose, Plasma 106(H) 74 - 99 mg/dL 05/02/2025 2:51 AM EDT [facility] BUN, Plasma 16 8 - 23 mg/dL 05/02/2025 2:51 AM EDT [facility] Creatinine, Plasma 0.84 0.70 - 1.20 mg/dL 05/02/2025 2:51 AM EDT [facility] BUN/Creatinine Ratio 19 05/02/2025 2:51 AM EDT [facility] Sodium, Plasma 136 136 - 145 mmol/L 05/02/2025 2:51 AM EDT [facility] Potassium, Plasma 3.8 3.6 - 4.9 mmol/L 05/02/2025 2:51 AM EDT [facility] Chloride, Plasma 101 97 - 107 mmol/L 05/02/2025 2:51 AM EDT [facility] CO2, Plasma 25 22 - 29 mmol/L 05/02/2025 2:51 AM EDT [facility] Anion Gap 10 6 - 16 mmol/L 05/02/2025 2:51 AM EDT [facility] Total Calcium, Plasma 9.1 8.9 - 10.2 mg/dL 05/02/2025 2:51 AM EDT [facility] Total Protein 6.5 6.3 - 7.9 g/dL 05/02/2025 2:51 AM EDT [facility] Albumin, Plasma 2.8(L) 3.5 - 5.2 g/dL 05/02/2025 2:51 AM EDT [facility] AST, Plasma 241(H) 10 - 50 U/L 05/02/2025 2:51 AM EDT [facility] ALT, Plasma 23 10 - 50 U/L 05/02/2025 2:51 AM EDT [facility] Alkaline Phosphatase, Plasma 200(H) 40 - 115 U/L 05/02/2025 2:51 AM EDT [facility] Total Bilirubin, Plasma 2.6(H) 0.2 - 1.1 mg/dL 05/02/2025 2:51 AM EDT [facility] eGFRcr 95.6 mL/min/1.7 3m*2 05/02/2025 2:51 AM EDT [facility] Comment:Reported eGFRcr in m L/min/1.73m2 is based the CKD-EPI 2020 equation that does not use a race coefficient. Blood Venous blood specimen / Unknown Venipuncture / Unknown 05/02/2025 2:07 AM EDT 05/02/2025 2:20 AM EDT us Lexi Crane APRN LAB BLOOD ORDERABLES Final Re sult [facility] [address] [place] [address] * (ABNORMAL) CBC and differential (05/02/2025 2:07 AM EDT) WBC Count 6.14 3.70 - 10.30 10*3/uL LAB HEMATOLOGY METHOD 05/02/2025 2:31 AM EDT [facility] RBC Count 4.15(L) 4.60 - 6.10 10*6/uL LAB HEMATOLOGY METHOD 05/02/2025 2:31 AM EDT [facility] HGB 13.3(L) 13.7 - 17.5 g/dL LAB HEMATOLOGY METHOD 05/02/2025 2:31 AM EDT [facility] HCT 39.3(L) 40.0 - 51.0 % LAB HEMATOLOGY METHOD 05/02/2025 2:31 AM EDT [facility] Platelet Count 126(L) 155 - 369 10*3/uL LAB HEMATOLOGY METHOD 05/02/2025 2:31 AM EDT [facility] MCV 95 79 - 98 fL LAB HEMATOLOGY METHOD 05/02/2025 2:31 AM EDT [facility] MCH 32.0 26.0 - 32.0 pg LAB HEMATOLOGY METHOD 05/02/2025 2:31 AM EDT [facility] MCHC 33.8 30.7 - 35.5 g/dL LAB HEMATOLOGY METHOD 05/02/2025 2:31 AM EDT [facility] RDW 15.1(H) 11.5 - 14.5 % LAB HEMATOLOGY METHOD 05/02/2025 2:31 AM EDT [facility] MPV 11.9 8.8 - 12.5 fL LAB HEMATOLOGY METHOD 05/02/2025 2:31 AM EDT [facility] nRBC 0.0 <=0.0 per 100 WBCs LAB HEMATOLOGY METHOD 05/02/2025 2:31 AM EDT [facility] Differential Type Automated LAB HEMATOLOGY METHOD 05/02/2025 2:31 AM EDT [facility] Neutrophils % 65 % LAB HEMATOLOGY METHOD 05/02/2025 2:31 AM EDT [facility] Lymphocytes % 20 % LAB HEMATOLOGY METHOD 05/02/2025 2:31 AM EDT [facility] Monocytes % 13 % LAB HEMATOLOGY METHOD 05/02/2025 2:31 AM EDT [facility] Eosinophils % 1 % LAB HEMATOLOGY METHOD 05/02/2025 2:31 AM EDT [facility] Basophils % 0 % LAB HEMATOLOGY METHOD 05/02/2025 2:31 AM EDT [facility] Immature Granulocytes % 1 % LAB HEMATOLOGY METHOD 05/02/2025 2:31 AM EDT [facility] Neutrophils Absolute 4.00 1.60 - 6.10 10*3/uL LAB HEMATOLOGY METHOD 05/02/2025 2:31 AM EDT [facility] Lymphocytes Absolute 1.22 1.20 - 3.90 10*3/uL LAB HEMATOLOGY METHOD 05/02/2025 2:31 AM EDT [facility] Monocytes Absolute 0.79 0.30 - 0.90 10*3/uL LAB HEMATOLOGY METHOD 05/02/2025 2:31 AM EDT [facility] Eosinophils Absolute 0.07 0.00 - 0.50 10*3/uL LAB HEMATOLOGY METHOD 05/02/2025 2:31 AM EDT [facility] Basophils Absolute 0.02 0.00 - 0.10 10*3/uL LAB HEMATOLOGY METHOD 05/02/2025 2:31 AM EDT [facility] Immature Granulocytes Absolute 0.04 0.00 - 0.06 10*3/uL LAB HEMATOLOGY METHOD 05/02/2025 2:31 AM EDT [facility] Blood Venous blood specimen / Unknown Venipuncture / Unknown 05/02/2025 2:07 AM EDT 05/02/2025 2:20 AM EDT Narrative [facility] - 05/02/2025 2:31 AM EDT Therapeutic decision making should be based on absolute values, rather than percentages. us Lexi Crane APRN LAB BLOOD ORDERABLES Final Re sult [facility] [address] [place] [address] * US Abdomen RUQ (05/01/2025 7:43 PM [...] on 05/01/2025 8:43 PM Willy Saleh [place] [facility] [place] Final Result * Type and [...] TEST ORDERABLES Final Result BLOOD BANK [address] [place] [address], [place] * (ABNORMAL) Lactic acid, venous (05/01/2025 5:54 PM EDT) Lactate, Venous, Whole Blood 2.5(H) 0.5 - 2.2 mmol/L LAB HEMATOLOGY METHOD 05/01/2025 6:12 PM EDT [facility] Blood Venous blood specimen / Unknown Venipuncture / Unknown 05/01/2025 5:54 PM EDT 05/01/2025 6:08 PM EDT Willy Saleh MD LAB BLOOD ORDERABLES Final Resu lt [facility] [address] [place] [address] * (ABNORMAL) Lipase (05/01/2025 5:54 PM EDT) Lipase, Plasma 11(L) 19 - 63 U/L 05/01/2025 6:22 PM EDT [facility] Blood Venous blood specimen / Unknown Venipuncture / Unknown 05/01/2025 5:54 PM EDT 05/01/2025 5:58 PM EDT Willy Saleh MD LAB BLOOD ORDERABLES Final Resu lt [facility] [address] [place] [address] * Magnesium (05/01/2025 5:54 PM EDT) Magnesium, Plasma 1.9 1.9 - 2.4 mg/dL 05/01/2025 6:22 PM EDT [facility] Blood Venous blood specimen / Unknown Venipuncture / Unknown 05/01/2025 5:54 PM EDT 05/01/2025 5:58 PM EDT Willy Saleh MD LAB BLOOD ORDERABLES Final Resu lt [facility] [address] [place] [address] * (ABNORMAL) CMP (05/01/2025 5:54 PM EDT) Glucose, Plasma 93 74 - 99 mg/dL 05/01/2025 6:22 PM EDT [facility] BUN, Plasma 16 8 - 23 mg/dL 05/01/2025 6:22 PM EDT [facility] Creatinine, Plasma 0.82 0.70 - 1.20 mg/dL 05/01/2025 6:22 PM EDT [facility] BUN/Creatinine Ratio 20 05/01/2025 6:22 PM EDT [facility] Sodium, Plasma 137 136 - 145 mmol/L 05/01/2025 6:22 PM EDT [facility] Potassium, Plasma 4.0 3.6 - 4.9 mmol/L 05/01/2025 6:22 PM EDT [facility] Chloride, Plasma 101 97 - 107 mmol/L 05/01/2025 6:22 PM EDT [facility] CO2, Plasma 22 22 - 29 mmol/L 05/01/2025 6:22 PM EDT [facility] Anion Gap 14 6 - 16 mmol/L 05/01/2025 6:22 PM EDT [facility] Total Calcium, Plasma 8.7(L) 8.9 - 10.2 mg/dL 05/01/2025 6:22 PM EDT [facility] Total Protein 6.6 6.3 - 7.9 g/dL 05/01/2025 6:22 PM EDT [facility] Albumin, Plasma 2.7(L) 3.5 - 5.2 g/dL 05/01/2025 6:22 PM EDT [facility] AST, Plasma 248(H) 10 - 50 U/L 05/01/2025 6:22 PM EDT [facility] ALT, Plasma 22 10 - 50 U/L 05/01/2025 6:22 PM EDT [facility] Alkaline Phosphatase, Plasma 208(H) 40 - 115 U/L 05/01/2025 6:22 PM EDT [facility] Total Bilirubin, Plasma 2.2(H) 0.2 - 1.1 mg/dL 05/01/2025 6:22 PM EDT [facility] eGFRcr 96.3 mL/min/1.7 3m*2 05/01/2025 6:22 PM EDT [facility] Comment:Reported eGFRcr in m L/min/1.73m2 is based the CKD-EPI 2020 equation that does not use a race coefficient. Blood Venous blood specimen / Unknown Venipuncture / Unknown 05/01/2025 5:54 PM EDT 05/01/2025 5:58 PM EDT Willy Saleh MD LAB BLOOD ORDERABLES Final Resu lt Performing Organization Address [facility] [[email or web address]] Co de Phone Number [facility] [address] [place] [address] * (ABNORMAL) PT-INR (05/01/2025 5:54 PM EDT) Prothrombin Time 14.4(H) 12.0 - 14.3 sec 05/01/2025 6:13 PM EDT [facility] INR 1.1 0.9 - 1.1 05/01/2025 6:[address] [facility] Blood Venous blood specimen / Unknown Venipuncture / Unknown 05/01/2025 5:54 PM EDT 05/01/2025 5:58 PM EDT Narrative [facility] - 05/01/2025 6:13 PM EDT OPTIMAL INR RANGES FOR PATIENT ON ORAL ANTICOAGULANT THERAPY Prevention of venous thromboembolism INR 2.0 to 3.0 In patients with heart disease: Atrial fibrillation INR 2.0 to 3.0 Valvular heart disease INR 2.0 to 3.0 Tissue heart valves INR 2.0 to 3.0 Mechanical prosthetic valves INR 2.5 to 3.5 Prevention of recurrent ID INR 2.5 to 3.5 Willy Saleh MD LAB BLOOD ORDERABLES Final Resu lt Performing Organization Address [facility]/ZIP Co de Phone Number [facility] [address] [place] [address] * (ABNORMAL) CBC w/diff (05/01/2025 5:54 PM EDT) WBC Count 6.23 3.70 - 10.30 10*3/uL LAB HEMATOLOGY METHOD 05/01/2025 6:05 PM EDT [facility] RBC Count 4.08(L) 4.60 - 6.10 10*6/uL LAB HEMATOLOGY METHOD 05/01/2025 6:05 PM EDT [facility] HGB 13.2(L) 13.7 - 17.5 g/dL LAB HEMATOLOGY METHOD 05/01/2025 6:05 PM EDT [facility] HCT 37.8(L) 40.0 - 51.0 % LAB HEMATOLOGY METHOD 05/01/2025 6:05 PM EDT [facility] Platelet Count 118(L) 155 - 369 10*3/uL LAB HEMATOLOGY METHOD 05/01/2025 6:05 PM EDT [facility] MCV 93 79 - 98 fL LAB HEMATOLOGY METHOD 05/01/2025 6:05 PM EDT [facility] MCH 32.4(H) 26.0 - 32.0 pg LAB HEMATOLOGY METHOD 05/01/2025 6:05 PM EDT [facility] MCHC 34.9 30.7 - 35.5 g/dL LAB HEMATOLOGY METHOD 05/01/2025 6:05 PM EDT [facility] RDW 15.0(H) 11.5 - 14.5 % LAB HEMATOLOGY METHOD 05/01/2025 6:05 PM EDT [facility] MPV 11.1 8.8 - 12.5 fL LAB HEMATOLOGY METHOD 05/01/2025 6:05 PM EDT [facility] nRBC 0.0 <=0.0 per 100 WBCs LAB HEMATOLOGY METHOD 05/01/2025 6:05 PM EDT [facility] Differential Type Automated LAB HEMATOLOGY METHOD 05/01/2025 6:05 PM EDT [facility] Neutrophils % 59 % LAB HEMATOLOGY METHOD 05/01/2025 6:05 PM EDT [facility] Lymphocytes % 21 % LAB HEMATOLOGY METHOD 05/01/2025 6:05 PM EDT [facility] Monocytes % 16 % LAB HEMATOLOGY METHOD 05/01/2025 6:05 PM EDT [facility] Eosinophils % 2 % LAB HEMATOLOGY METHOD 05/01/2025 6:05 PM EDT [facility] Basophils % 1 % LAB HEMATOLOGY METHOD 05/01/2025 6:05 PM EDT [facility] Immature Granulocytes % 1 % LAB HEMATOLOGY METHOD 05/01/2025 6:05 PM EDT [facility] Neutrophils Absolute 3.70 1.60 - 6.10 10*3/uL LAB HEMATOLOGY METHOD 05/01/2025 6:05 PM EDT [facility] Lymphocytes Absolute 1.33 1.20 - 3.90 10*3/uL LAB HEMATOLOGY METHOD 05/01/2025 6:05 PM EDT [facility] Monocytes Absolute 0.98(H) 0.30 - 0.90 10*3/uL LAB HEMATOLOGY METHOD 05/01/2025 6:05 PM EDT [facility] Eosinophils Absolute 0.13 0.00 - 0.50 10*3/uL LAB HEMATOLOGY METHOD 05/01/2025 6:05 PM EDT [facility] Basophils Absolute 0.04 0.00 - 0.10 10*3/uL LAB HEMATOLOGY METHOD 05/01/2025 6:05 PM EDT [facility] Immature Granulocytes Absolute 0.05 0.00 - 0.06 10*3/uL LAB HEMATOLOGY METHOD 05/01/2025 6:05 PM EDT [facility] Blood Venous blood specimen / Unknown Venipuncture / Unknown 05/01/2025 5:54 PM EDT 05/01/2025 5:58 PM EDT Narrative [facility] - 05/01/2025 6:05 PM EDT Therapeutic decision making should be based on absolute values, rather than percentages. us Willy Saleh MD LAB BLOOD ORDERABLES Final Resu lt [facility] [address] [place] [address] * EKG now - STAT (adult) (05/01/2025 5:43 PM EDT) EKG DIAGNOSIS CLASS Abnormal MUSE ECG Ventricular Rate 70 BPM MUSE ECG Atrial Rate 70 BPM MUSE ECG RI Interval 138 ms MUSE ECG QRSD Interval 86 ms MUSE ECG QT Interval 414 ms MUSE ECG QTC Interval 447 ms MUSE ECG P Stevenson 50 degrees MUSE ECG R Stevenson -53 degrees MUSE ECG T Wave Stevenson 43 degrees MUSE ECG Diagnosis Normal sinus rhythm with sinus arrhythmia MUSE ECG Diagnosis Left axis deviation MUSE ECG Diagnosis Anterior infarct , age undetermined MUSE ECG Diagnosis T wave abnormality, consider lateral ischemia MUSE ECG Diagnosis MUSE ECG Diagnosis MUSE ECG Diagnosis Confirmed by Jordyn Pompa ([id number]) on 05/02/2025 3:24:55 PM MUSE ECG 05/01/2025 [...] 05/04/2025 12:29 PM EDT 4.01 millicuries Tiotropium [place] Monohydrate (Spiriva Respimat) 2.5 MCG/ACT inhaler 2 [...] Poe RN)1953 (New Bag - Provider: Karen Avlia) 0120 (New Bag - Provider: Karen Avila)[id number] [...] 1229 (Given - Provider: Eliseo Cueva) Tiotropium [place] Monohydrate (Spiriva Respimat) 2.5 MCG/ACT inhaler 2 [...] care Linked Groups Order Group 1: Tiotropium [place] Monohydrate (Spiriva Respimat) 2.5 MCG/ACT inhaler 2 [...] documented as of this encounter Care Teams Dope Mixer Relationship Specialty Start Date End Date Pcp, No [address] [place] [address] PCP - General Family Medicine 03/20/25 Isabella Saucedo APRN [address] [facility] [address] [place] [address] Referring Physician 02/26/25 Jeannie Mcmillan RN [facility] [address] [place] [address] Registered Nurse Transplant Surgery 03/08/25 [place] [address] Registered Nurse Transplant Surgery 03/08/25 Rodney Gonzáles MD [address] [facility] [address] [place] [address] Medical Oncologist 04/10/25 documented as of this encounter
[2025-05-15 04:37] VITALS: BP 92/73; PULSE 85; RESP 25; TEMP 36.6; O2SAT 99; BMI 20.5
--- NOTE | 2025-05-15 04:37 | ED_ITS ---
Discharge Plan Disposition Patient Disposition: Home, Self-Care Prescriptions Prescriptions: New methylprednisolone [Medrol (Tacos)] 4 mg tablets,dose pack See Rx Instructions .ROUTE .COMPLEX Qty: 21 0RF Rx Instructions: for 6 days No Action cyclobenzaprine 5 mg tablet 5 mg PO BID potassium chloride [K-Tab] 20 mEq tablet extended release 10 meq PO DAILY prochlorperazine maleate [Compazine] 10 mg tablet 10 mg PO Q6H PRN (Reason: nausea and vomiting) Qty: 30 1RF Rx Instructions: take one tablet as needed for n/v related to chemotherapy albuterol sulfate 90 mcg/actuation HFA aerosol inhaler 1 inh inhalation NEEDED PRN (Reason: COPD) Patient Comments: INHALE 2 PUFFS INTO THE LUNGS 4 TIMES DAILY. furosemide 20 mg tablet 20 mg PO DAILY hydromorphone [Dilaudid] 4 mg tablet 4 mg PO Q4-6H PRN (Reason: pain) Qty: 180 0RF sennosides [senna] 8.6 mg tablet 8.6 mg PO HS Qty: 30 5RF nitroglycerin 0.4 mg tablet, sublingual 0.4 mg sublingual Q5M PRN (Reason: chest pain) Qty: 14 0RF Rx Instructions: do not exceed 3 doses per episode bisoprolol fumarate 5 mg tablet 5 mg PO DAILY Qty: 30 2RF aspirin 81 mg Tablet 81 mg PO DAILY escitalopram oxalate 20 mg tablet 20 mg PO AM Patient Comments: TAKE 1 TABLET BY MOUTH DAILY. Trelegy Ellipta 100-62.5-25 mcg blister with device 1 inh INHALATION DAILY Patient Comments: INHALE 1 PUFF INTO THE LUNGS DAILY AT 0900. clopidogrel 75 mg Tablet 75 mg PO DAILY 30 Days Qty: 30 0RF Jardiance 10 mg Tablet 10 mg PO DAILY 30 Days Qty: 30 0RF megestrol 800 mg/20 mL (20 mL) suspension 800 mg PO DAILY Qty: 600 3RF Rx Instructions: Please take 20 mL by mouth daily Referrals Follow up/Referrals: Cr Resendez MD [Primary Care Provider, Medical] - See instructions Activity Restrictions/Add. Instructions Additional Instructions/Restrictions: Please take steroids as prescribed. Please follow-up with Dr. Gonzáles. Please follow-up with your primary care provider. Please return to the emergency department if you develop any new or worsening symptoms or become concerned for your health. Clinical Impressions Clinical Impression: HCC (hepatocellular carcinoma), Abdominal pain, right upper quadrant Instructions Patient Instructions: DI for Acute Abdominal Pain Print Language Print Language: Sinhala Discharge ED Provider: Augustine Hough General Adult HPI General Chief complaint: Abdominal Pain Stated complaint: pain in right side, cancer patient Time Seen by Provider: 05/15/25 04:37 History of Present Illness HPI narrative: 65-year-old male with history of hepatocellular carcinoma presents for severe right sided pain. He reports it woke him from sleep, is severe, not improved with his home oral Dilaudid. He had a similar episode a couple weeks ago and they were concerned it could be his gallbladder, so he was transferred to . He did not have an operation at , they think it may be more likely result of his HCC and his HCC treatment. He denies any nausea or vomiting, denies diarrhea. Reports pain is localized to the right side. Related Data Home Medications ?Medication ?Instructions ?Recorded ?Confirmed aspirin 81 mg tablet 81 mg PO DAILY 01/06/2404/30 escitalopram oxalate 20 mg tablet 20 mg PO AM 01/06/24 05/09/25 fluticasone fur. 100 mcg-umeclid 1 inh inhalation BJ Y 01/06/24 05/09/25 62.5 mcg-vilant 25 mcg inhalat.powder (Trelegy Ellipta) albuterol sulfate 90 mcg/actuation 1 inh inhalation NEEDED PRN COPD 11/22/24 05/09/25 aerosol inhaler cyclobenzaprine 5 mg tablet 5 mg PO BID 04/05/2505/09 potassium chloride 20 mEq 10 meq PO DAILY 04/05/2506/23 tablet,extended release (K-Tab) furosemide 20 mg tablet 20 mg PO DAILY 04/26/2504/30 Previous Rx's ?Medication ?Instructions ?Recorded clopidogrel 75 mg tablet 75 mg PO DAILY 30 days #30 t abs 01/07/24 empagliflozin 10 mg tablet 10 mg PO DAILY 30 days #30 tabs 01/07/24 (Jardiance) nitroglycerin 0.4 mg sublingual 0.4 mg sublingual Q5M PRN chest 01/10/24 tablet pain #14 tabs bisoprolol fumarate 5 mg tablet 5 mg PO DAILY #30 tabs 09/25/24 prochlorperazine maleate 10 mg 10 mg PO Q6H PRN nausea and 03/27/25 tablet (Compazine) vomiting #30 tabs megestrol 800 mg/20 mL (20 mL) 800 mg (20 mL) PO DAILY #600 mL 04/09/25 oral suspension hydromorphone 4 mg tablet 4 mg PO Q4-6H PRN pain #180 tabs 04/26/25 (Dilaudid) sennosides 8.6 mg tablet (senna) 8.6 mg PO HS #30 tabs 04/26/25 methylprednisolone 4 mg tablets in See Rx Instructions PO .COMPLEX 05/15/25 a dose pack (Medrol (Tacos)) #21 tabs Allergies Allergy/AdvReac Type Severity Reaction Status Date / Time adhesive tape (ADHESIVE TAPE) Allergy Intermediate I-RASH Verified 05/09/25 15:09 gabapentin AdvReac Severe Confusion Verified 05/09/25 15:09 duloxetine (From CYMBALTA) AdvReac Unknown Unknown Verified 05/09/25 15:09 [facility] Disclaimer: The information contained in this section may have been updated after the patient was seen, as this information can be updated by other users. Medical History Mood disorder COPD (chronic obstructive pulmonary disease) Vitamin D deficiency, unspecified Abnormal ultrasound of both kidneys HTN (hypertension) Moderate mitral valve regurgitation Fatigue SOB (shortness of breath) Surgical History Hx of CABG AICD (automatic cardioverter/defibrillator) present Family History Other No significant family history Social History Smoking Status: Current every day smoker tobacco type: cigarettes packs per day: 1 years smoked: 40 quit status: has quit before alcohol intake: former substance use type: denies use current occupational status: disabled Travel in the last 8 weeks?: None household members: spouse housing: house caffeine: Yes Have you lived/traveled outside US in past 30 days?: No Contact w/someone who lives/traveled outside US past 30 days?: No Exposure to someone with infectious disease in past 14 days?: No Do you have a fever (greater than 100.4 F or 38 C)?: No Have you tested positive for COVID-19?: No Exposed to someone with COVID-19 in past 14 days?: No Do you have a sore throat?: No Do you have a cough?: No Do you have any weakness?: No Do you have any diarrhea?: No Are you experiencing any unusual bleeding?: No Do you have any muscle aches/pain?: No Do you have any abdominal pain?: No Are you experiencing loss of taste or smell?: No Other Medical History Have you received the Flu Vaccine for this season: No Have you received the Pneumonia Vaccine: No ROS Obtained: Yes All systems reviewed & no additional complaints except as documented Physical Exam General General appearance: alert and in distress Head Head exam: atraumatic and normocephalic Eye Eye exam: Present normal appearance, PERRL and EOMI ENT ENT exam: Present normal oropharynx and normal external ear exam Neck Neck exam: Present normal inspection and full ROM Chest Chest inspection: Present normal inspection and symmetric chest wall rise; Absent tenderness Respiratory Respiratory exam: Present normal lung sounds bilaterally; Absent respiratory distress Cardiovascular Cardiovascular exam: Present regular rate and normal rhythm Abdominal Exam Abdominal exam: Present soft, tenderness (Right upper quadrant) and guarding Extremities Exam Extremities exam: Present normal inspection; Absent edema or joint swelling Back Exam Back exam: Present normal inspection; Absent tenderness Neurological Exam Neurological exam: Present alert and oriented X3; Absent motor sensory deficit Psychiatric Psychiatric exam: Present normal affect and normal mood Skin Skin exam: Present warm, dry and normal color Lymphatic Lymphatic Findings: no adenopathy Medical Decision Making Medical Records Medical records reviewed: Yes I reviewed the patient's medical records. Screening: Per USPSTF and CDC recommendations, given the prevalence of disease in our region, it is our hospital?s policy to screen for HIV and viral Hepatitis for all patients aged 18 and over and those with ongoing risk factors. Tony Inquiry Pt receiving controlled substance: No Tony was queried for this patient: No Vital Signs: 05/15/25 04:37 Temperature 97.8 F Temperature Source Oral Pulse Rate [Left] 85 Respiratory Rate 25 H Blood Pressure [Right Arm] 92/73 L Blood Pressure Mean [Right Arm] 79 Blood Pressure Source [Right Arm] Automatic Cuff Blood Pressure Position [Right Arm] Supine 02 Sat by Pulse Oximetry 99 Oxygen Delivery Method Room Air Lab Data Lab results reviewed: Yes I reviewed the patient's lab results. Lab Results 05/15/25 04:44: WBC 7.8, RBC 4.45 L, Hgb 14.2, Hct 42.5, MCV 95.5 H, MCH 31.9 H, MCHC 33.4, RDW 16.5, Plt Count 203, MPV 11.3 H, Neut % (Auto) 67.4, Lymph % (Auto) 19.6, [place] % (Auto) 11.0 H, Eos % (Auto) 1.0, Baso % (Auto) 0.5, Neut # (Auto) 5.2, Lymph # (Auto) 1.5, [place] # (Auto) 0.9, Eos # (Auto) 0.1, Baso # (Auto) 0.0, PT 11.8, INR 1.07, Sodium 141, Potassium 3.5, Chloride 105, Carbon Dioxide 25, Anion Gap 14.5, BUN 13, Creatinine 0.90, Estimated Creat Clear 62, Estimated GFR 84, Est GFR ( Amer) 102, Glucose 158 H, Lactate 2.8 H, Calcium 9.4, Total Bilirubin 1.8 H, AST 121 H, ALT 28, Alkaline Phosphatase 309 H, Total Protein 8.0, Albumin 3.8, Globulin 4.2 H, Albumin/Globulin Ratio 0.9 L, Lipase 67 05/15/25 04:44 05/15/25 04:44 Orders (Tests/Meds): ED MEDICATIONS Generic Name Dose Route Start Last Admin Trade Name Freq PRN Reason Stop Dose Admin Oxycodone HCl 5 mg 05/15/25 06:25 Oxycodone 5mg Immediate Release Tablet PO 05/15/25 06:26 ONCE ONE Sodium Chloride 10 ml 05/15/25 05:15 05/15/25 05:16 Sodium Chloride 0.9% 10ml Syr (Rad Only) IV 06/14/25 05:14 10 ml NEEDED PRN Administration Maintain IV Site Discontinued Medications Generic Name Dose Route Start Last Admin Trade Name Freq PRN Reason Stop Dose Admin Hydromorphone HCl 1 mg 05/15/25 04:42 05/15/25 04:49 Hydromorphone 2mg/Ml Syringe IV 05/15/25 04:43 1 mg ONCE ONE Administration Iopamidol 75 ml 05/15/25 05:15 05/15/25 05:16 Iopamidol-370 (76%);100ml Bottle IV 05/15/25 05:16 75 ml ONCE ONE Administration Ondansetron HCl 4 mg 05/15/25 04:42 05/15/25 04:49 Ondansetron 4mg/2ml Vial IV 05/15/25 04:43 4 mg ONCE ONE Administration ORDERS Category Date Time Status CT abdomen pelvis w con Stat Cat Scan 05/15/25 04:42 Completed CBC w/Auto Diff [Complete Blood Count Auto Diff] Stat Lab 05/15/25 04:44 Completed CMP [Comprehensive Metabolic Panel] Stat Lab 05/15/25 04:44 Completed INR [Prothrombin Time INR] Stat Lab 05/15/25 04:44 Completed Lactic Acid Stat Lab 05/15/25 04:44 Completed Lipase Stat Lab 05/15/25 04:44 Completed UA [Urinalysis and Microscopic] Stat Lab 05/15/25 04:42 Ordered Medical Decision Narrative: 65-year-old male with history of hepatocellular carcinoma on immunotherapy presents with severe right upper quadrant pain. History was obtained via interactive discussion with patient. On arrival, patient is [afebrile, hemodynamically stable, satting appropriately, alert, oriented x4, GCS 15], moving all extremities spontaneously. Full physical exam performed and significant for severe abdominal tenderness Differential includes but is not limited to pancreatitis, cholecystitis, choledocholithiasis, worsening of the patient's HCC, SBP Patient was given IV Dilaudid and Zofran for symptomatic management and correction of underlying abnormalities. Workup initiated including CBC CMP lipase lactate INR CT abdomen pelvis with IV contrast. On re-evaluation, patient [remains afebrile, HD stable.] Laboratory workup independently interpreted by me and significant for improved bilirubin, stable LFTs, no leukocytosis,. Imaging independently interpreted by me and significant for worsening of perihepatic ascites, gallbladder less distended, mass is stable in appearance. See radiology read for full review of final results. I discussed the case with the patient and with Dr. Gonzáles. Although I cannot completely rule out SBP or cholecystitis based on current workup, Dr. Gonzáles believes the pain is almost certainly result of his cancer and its treatment. We discussed transfer, but patient would prefer not to be transferred and it was felt to be of relatively low utility at this time. I considered paracentesis to sample the ascites, but given its proximity to the liver it would be risky to perform. His presentation does not seem consistent with SBP either. I gave him a Medrol Dosepak per Dr. Gonzáles's instructions. Return precautions were given, patient was discharged in stable condition. Procedures Risk/Benefits of Procedure(s) Were Explained: Yes Critical Care Critical Care Time Critical Care Time: No
--- OUTSIDE RECORDS SUMMARY | 2025-05-15 04:40 | XMS_ITS | Encounter Summary ---
Author Organization [place] [address] Care Team Providers Care Children'S Minister Name Role Phone Jan Sin MD Unavailable [phone] Macario Pryor MD Un[facility] Resendez MD Primary Care Provider [phone] Reason for Visit * Reason Onset Date Comments Central Patient Navigator Outreach 04/19/2025 AWV Questionnaire Encounter Details Date Type Department Care Team (Late st Contact Info) Description 04/19/2025 Patient Outreach SEP [facility] [address] [place] [address] Cr Resendez MD [address] [place] [address] [place] [address] Central Patient Navigator Outreach (AWV Questionnaire/) Social [...] Questionnaires Attempt Count: inbound Care Gaps Addressed windows migration technician: Medicare Questionnaire Outcome:Medicare Questionnaire completed Call back number: [phone] * Esme Mendez - 04/19/2025 10:38 AM EDT Patient Outreach: Pre-Visit Questionnaires Attempt Count: 1st Care Gaps Addressed windows migration technician: Medicare Questionnaire Outcome:MyChart Message Sent and Patient not available Call back number: [phone] documented in this encounter Plan of Treatment [...] documented as of this encounter Care Teams Children'S Minister Relationship Specialty Start Date End Date Macario Pryor MD [address] [place] [address] [place] [address] PCP - Hematology/Oncology Internal Medicine-Medical Oncology 11/12/15 Cr Resednez MD [address] [place] [address] [place] [address] PCP - General Family Medicine 11/24/21 Jan Sin MD [address] [place] [address] [place] [address] Internal Medicine-Cardiovascul ar Disease 08/28/14 documented as of this encounter
--- OUTSIDE RECORDS SUMMARY | 2025-05-15 04:40 | XMS_ITS | Encounter Summary ---
Author Organization Healthcare Address [address] [place] [address] Care Team Providers Care Adobe Layer Helper Name Role Phone Isabella Saucedo Phong INFRASTRUCTURE DESIGN ENGINEER Unavailable [phone] Jeannie Mcmillan RN Unavailable [phone] Ebony Shoemaker Unavailable [phone] Pcp, No Primary Care Provider Unavailabl e Encounter Details Date Type Department Care Team (Late st Contact Info) Description 03/20/2025 Orders Only External Location [address] [place] [address] Provider, External Social History Tobacco Use Types [...] 1 Month) No 025 8:00 AM EDT Sadny Moseley, NIURKA 2. Non-Specific Active Suici heriberto [...] documented as of this encounter Care Teams Adobe Layer Helper Relationship Specialty Start Date End Date Pcp, No [address] [place] [address] PCP - General Family Medicine 03/20/25 Isabella Saucedo APRN [address] [place] [address] [place] [address] Referring Physician 02/26/25 Jeannie Mcmillan, RN [facility] [address] [place] [address] Registered Nurse Transplant Surgery 03/08/25 Ebony Shoemaker [place] [id number] Registered Nurse Transplant Surgery 03/08/25 documented as of this encounter
--- OUTSIDE RECORDS SUMMARY | 2025-05-15 04:40 | XMS_ITS | Encounter Summary ---
Author Organization [place] [address] Care Team Providers Care Jacket Preparer Name Role Phone Jan Sin MD Unavailable [phone] Macario Pryor MD Unavailable Unavailabl e Cr Resendez MD Primary Care Provider [phone] Encounter Details Date Type Department Care Team (Latest Contact Info) Description 04/24/2025 Results Follow-Up SEP Luis [address] [place] [address] Cr Resendez MD [address] [place] [address] [place] [address] HEMOGLOBIN A1C, COMPREHENSIVE METABOLIC PANEL, CBC [...] documented as of this encounter Care Teams Jacket Preparer Relationship Specialty Start Date End Date Macario Pryor MD [address] [place] [address] [place] [address] PCP - Hematology/Oncology Internal Medicine-Medical Oncology 11/12/15 Cr Resendez MD [address] [place] [address] [place] [address] PCP - General Family Medicine 11/24/21 Jan Sin MD [address] [place] [address] [place] [address] Internal Medicine-Cardiovascul ar Disease 08/28/14 documented as of this encounter
--- OUTSIDE RECORDS SUMMARY | 2025-05-15 04:40 | XMS_ITS | Encounter Summary ---
Author Organization [facility] Address [address] [place] [address] Care Team Providers Care Utility Lineman Name Role Phone Lewis Isabella Darling BABY REGISTRY SALES CONSULTANT Unavailable [phone] Jeannie Mcmillan RN Unavailable [phone] Ebony Shoemaker Unavailable [phone] Pcp, No Primary Care Provider Unavailabl e Rodney Gonzáles MD Unavailable [phone] Reason for Visit * Reason Comments Txp Surgical Follow-up Encounter Details Date Type Department Care Team (Late st Contact Info) Description 04/06/2025 Telephone [facility] [address] [facility] [address] [place] [address] Ebony Shoemaker [place] [id number] Txp Surgical Follow-up Social History Tobacco Use [...] AM EDT I spoke with Veronica the front office secretary with Isabella Kitchen' office. She said that [...] chemo. He does not follow with a recruiting internship per Ashley. Added to Dr. Do's discussion [...] documented as of this encounter Care Teams Utility Lineman Relationship Specialty Start Date End Date Pcp, [address] [address] PCP - General Family Medicine 03/20/25 Isabella Saucedo APRN 1210 [facility] [address] [place], [place] [id number] Referring Physician 02/26/25 Jeannie Mcmillan, RN [facility] [address] [place] [address] Registered Nurse Transplant Surgery 03/08/25 [place] [address] Registered Nurse Transplant Surgery 03/08/25 Rodney Gonzáles MD 1210 [facility] [address] [place] [address] Medical Oncologist 04/10/25 documented as of this encounter
--- OUTSIDE RECORDS SUMMARY | 2025-05-15 04:40 | XMS_ITS | Encounter Summary ---
Author Organization [place] [address] Care Team Providers Care Dial Painter Name Role Phone aJn Sin MD Unavailable [phone] Macario Pryor MD Unavailable Unavailabl e Cr Resendez MD Primary Care Provider [phone] Reason for Visit * Reason Comments Medication Refill Encounter Details Date Type Department Care Team (Late st Contact Info) Description 04/26/2025 Refill SEP Luis [facility] [place] [address] Cr Resendez MD [address] [place] [address] [address] [place] [id number] Medication Refill Social History Tobacco Use Types [...] and sent to requesting pharmacy. Routed to [facility] if an appointment is needed. clopidogreL There [...] Discontinue Reason Start Date End Da te nybfelnwkwj-ljrzimbfq-ocs anter (TRELEGY ELLIPTA) 100-62.5-25 mcg Inhl Disk [...] documented as of this encounter Care Teams Dial Painter Relationship Specialty Start Date End Date Macario Pryor MD [address] [place] [address] [place]S [address] PCP - Hematology/Oncology Internal Medicine-Medical Oncology 11/12/15 Cr Resendez MD [address] [place] [address] TRIST[place] MARTINEZ [address] PCP - General Family Medicine 11/24/21 Jan Sin MD [address] [place] [address] [place] [address] Internal Medicine-Cardiovascul ar Disease 08/28/14 documented as of this encounter
--- OUTSIDE RECORDS SUMMARY | 2025-05-15 04:40 | XMS_ITS | Encounter Summary ---
Author Organization Healthcare Address [address] [place] [address] Care Team Providers Care Universal Banker Name Role Phone Isabella Saucedo Phong BAKING ASSISTANT Unavailable [phone] Jeannie Mcmillan RN Unavailable [phone] Ebony Shoemaker Unavailable [phone] Pcp, No Primary Care Provider Unavailabl e Encounter Details Date Type Department Care Team (Late st Contact Info) Description 03/20/2025 Orders Only External Location [address] [place] [address] Provider, External Social History Tobacco Use Types [...] documented as of this encounter Care Teams Universal Banker Relationship Specialty Start Date End Date Pcp, No [address] [place] [address] PCP - General Family Medicine 03/20/25 Isabella Saucedo, BAKING ASSISTANT [address] [place] [address] [place] [address] Referring Physician 02/26/25 Jeannie Mcmillan, RN [facility] [address] [place] [address] Registered Nurse Transplant Surgery 03/08/25 Ebony Shoemaker [place] [id number] Registered Nurse Transplant Surgery 03/08/25 documented as of this encounter
--- OUTSIDE RECORDS SUMMARY | 2025-05-15 04:40 | XMS_ITS | Encounter Summary ---
Author Organization Healthcare Address [address] [place] [address] Care Team Providers Care Tentering Machine Feeder Name Role Phone Isabella Saucedo Phong NARROW GAUGE ENGINEER Unavailable [phone] Jeannie Mcmillan RN Unavailable [phone] Ebony Shoemaker Unavailable [phone] Pcp, No Primary Care Provider Unavailabl e Encounter Details Date Type Department Care Team (Late st Contact Info) Description 03/20/2025 Orders Only External Location [address] [place] [address] Provider, External Social History Tobacco Use Types [...] documented as of this encounter Care Teams Tentering Machine Feeder Relationship Specialty Start Date End Date Pcp, No [address] [place] [address] PCP - General Family Medicine 03/20/25 Isabella Saucedo APRN 1210 [facility] [address] [place] [address] Referring Physician 02/26/25 Jeannie Mcmillan, RN [facility] [address] [place] [address] Registered Nurse Transplant Surgery 03/08/25 [place] [address] Registered Nurse Transplant Surgery 03/08/25 documented as of this encounter
--- OUTSIDE RECORDS SUMMARY | 2025-05-15 04:40 | XMS_ITS | Encounter Summary ---
Author Organization Healthcare Address [address] [place] [address] Care Team Providers Care Java Performance Engineer Name Role Phone Isabella Saucedo Phong HAND VIOLIN MAKER Unavailable [phone] Jeannie Mcmillan RN Unavailable [phone] Ebony Shoemaker Unavailable [phone] Pcp, No Primary Care Provider Unavailabl [...] documented as of this encounter Care Teams Java Performance Engineer Relationship Specialty Start Date End Date Pcp, No [address] [place] [address] PCP - General Family Medicine 03/20/25 Isabella Saucedo APRN 1210 [facility] [address] [place] [address] Referring Physician 02/26/25 Jeannie Mcmillan, RN [facility] [address] [place] [address] Registered Nurse Transplant Surgery 03/08/25 [place] [address] Registered Nurse Transplant Surgery 03/08/25 documented as of this encounter
--- NOTE | 2025-05-15 04:42 | CT_ITS ---
PROCEDURE INFORMATION: Exam: CT Abdomen And Pelvis With Contrast Exam date and time: 05/15/2025 5:08 AM Age: 65 years old Clinical indication: Abdominal pain; Additional info: Acute ruq pain, HX hcc TECHNIQUE: Imaging protocol: Computed tomography of the abdomen and pelvis with contrast. Radiation optimization: All CT scans at this facility use at least one of these dose optimization techniques: automated exposure control; mA and/or kV adjustment per patient size (includes targeted exams where dose is matched to clinical indication); or iterative reconstruction. Contrast material: ISOVUE; Contrast volume: 75 ml; Contrast route: IV; COMPARISON: CT ABDOMEN PELVIS W CON 05/01/2025 12:38 PM FINDINGS: Heart: Moderate cardiomegaly. Coronary arteries: Coronary atherosclerosis. Liver: Cirrhotic liver. Poorly defined 9.5 cm solid and necrotic density in the inferior aspect of the right lobe of the liver not significantly changed from recent prior exam of 05/01/2025. Gallbladder and biliary ducts: The gallbladder wall is thickened and there is some pericholecystic edema. This is less distended than on the prior examination. A stone is noted in the gallbladder neck. Pancreas: Normal. No ductal dilation. Spleen: Normal. No splenomegaly. Adrenal glands: Normal. No mass. Kidneys and ureters: Multiple bilateral intrarenal stones are noted measuring up to 4 mm no evidence of urolithiasis or obstruction is noted. Stomach and bowel: There is mild concentric thickening of the right colon, no ileus or obstruction is noted. Appendix: No evidence of appendicitis. Intraperitoneal space: Small amount of dependent ascites. Vasculature: Unremarkable. No abdominal aortic aneurysm. Lymph nodes: Unremarkable. No enlarged lymph nodes. Urinary bladder: Unremarkable as visualized. Reproductive: Unremarkable as visualized. Bones/joints: Unremarkable. No acute fracture. Soft tissues: Right inguinal hernia containing fluid but no bowel. IMPRESSION: 1. Cirrhotic liver containing a solid and necrotic 9.4 cm mass consistent with known hepatocellular carcinoma, not significantly changed from recent prior CT. 2. Cholelithiasis with stable thickening of the gallbladder wall, reduced somewhat in volume compared to prior study. Correlate with right upper quadrant ultrasound as clinically indicated to exclude cholecystitis. 3. Bilateral non-obstructing nephrolithiasis. 4. Concentric thickening of the right colon consistent with cirrhotic colopathy, no ileus or obstruction noted. 5. Moderate cardiomegaly and coronary atherosclerosis. 6. Right inguinal hernia containing ascites but no bowel.
--- OUTSIDE RECORDS SUMMARY | 2025-05-15 04:42 | XMS_ITS | Clinical Summary ---
Author Organization Healthcare Address [address] [place] [address] Care Team Providers Care Compliance Director Name Role Phone LewisBereniceIsabella J OIL PUMP STATION OPERATOR CHIEF Unavailable [phone] Jeannie Mcmillan RN Unavailable [phone] Ebony Shoemaker Unavailable [phone] Pcp, No Primary Care Provider Unavailabl e Rodney Gonzáles MD Unavailable [phone] Allergies Active Allergy Reactions Criticality Noted [...] EDT Hospital Encounter [facility] Inpatient [address] [place] [address] Clotilde Saleh MD Arndt, Frederick, MD Vyasabattu, Mahender, MD Generalized abdominal pain (Primary Dx); Hepatocellular carcinoma; RUQ abdominal pain Discharge Disposition: Home or Self Care 05/01/2025 Travel 05/01/2025 Orders Only External Location [address] [place] [address] Chirs Lazo MD 04/06/2025 Telephone [facility] Trans[facility] [address] [address] Ebony Shoemaker Txp Surgical Follow-up 03/20/2025 4:39 PM EDT - 03/21/2025 6:51 PM EDT Hospital Encounter [facility] Inpatient [address] [place] [phone] Clotilde Saleh MD Santos, MD Krystina Wade Anne E, MD Epigastric pain (Primary Dx); Hepatocellular carcinoma; Alcoholic cirrhosis of liver without ascites (CMS/HCC) Discharge Disposition: Home or Self Care 03/20/2025 Travel 03/20/2025 Orders Only External Location [address] [place] [address] Provider, External 03/20/2025 Orders Only External Location [address] [place] [address] Provider, External 03/20/2025 Orders Only External Location [address] [place] [address] Provider, External 03/16/2025 Telephone [facility]plant [facility] [address] [address] Ebony Shoemaker Txp Surgical Follow-up (Ernestina: Tumor Board Discussion 03/16/25) 03/14/2025 11:20 AM EDT - 03/14/2025 11:59 PM EDT Hospital Encounter [facility] [address] [place] [address] Elevated AFP; Liver lesion; Hepatic cirrhosis, unspecified hepatic cirrhosis type, unspecified whether ascites present (CMS/HCC) Discharge Disposition: Home or Self Care 03/14/2025 10:00 AM EDT Office Visit [facility] [address] [address] Peter Do MD HCC (hepatocellular carcinoma) (Primary Dx) 03/14/2025 Orders Only [facility] [address] [place] [address] Ebony Shoemaker Liver lesion (Primary Dx); Elevated AFP; Hepatic cirrhosis, unspecified hepatic cirrhosis type, unspecified whether ascites present (CMS/HCC) 03/14/2025 Travel 03/10/2025 Travel 03/07/2025 Travel 03/06/2025 Telephone [facility] [address] [address] Cici Ramírez Manisha 03/06/2025 Telephone [facility] [address] [facility] [address] [place] [phone] Angelita Reeves Appointment 03/05/2025 Telephone [facility] [address] [address] Angelita Reeves Appointment 02/26/2025 Telephone [facility] [address] [address] Angelita Reeves Referral - Liver Txp 02/26/2025 [facility] [address] [place] [address] Isabella Saucedo APRN Invasion of liver, gallbladder, pancreas, ipsilateral branch of portal vein, 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 No 05/02/2025 [facility] Utilities Answer Date Recorded In the [...] Last Done Comments [facility]-/Child/Adol SDOH Screenings 1960 [id number] Vaccine (#1) 1963 [facility]-Hepatitis A Vaccines (1 [...] cirrhosis type, unspecified whether ascites present (CMS/HCC) from Last 3 Months Results * [...] (PLPEth) <10 ng/mL 05/06/2025 12:20 PM EDT [facility] ([facility]) PEth 16:0/18:1 (POPEth) <10 ng/mL 05/06/2025 12:20 PM EDT [facility] ([facility]) EER Peth See Note 05/06/2025 12:20 PM EDT [facility] ([facility]) PEth Interpretation See Comment 05/06/2025 12:20 PM EDT [facility] ([facility]) Blood Venous blood specimen / Unknown Venipuncture / Unknown 05/04/2025 4:33 AM EDT 05/04/2025 4:42 AM EDT Narrative [facility] ([facility]) - 05/06/2025 12:20 PM EDT PEth 16:0/18:1 (POPEth) Less than 10 ng/mL............Not detected Less than 20 ng/mL............Abstinence or light alcohol consumption 20 - 200 ng/mL................Moderate alcohol consumption Greater than 200 ng/mL........Heavy alcohol consumption or chronic alcohol use (Reference: Hannah Correa and Trice Azevedo 2018 J. Forensic Sci) Reference ranges are not well established. Authorized individuals can access the [facility] Enhanced Report with an [employer] Connect account using the following link. Your local lab can assist you in obtaining the patient report if you don't have a Connect account. [email or web address] Phosphatidylethanol (PEth) is a group of phospholipids [...] developed and its performance characteristics determined by [facility]. It has not been cleared or approved by the U.S. Food and Drug Administration. This test was performed in a CLIA-certified laboratory and is intended for clinical purposes. Performed By: [facility] [address] [place] [address] Mica Spreader: David Marx MD, PhD CLIA Number: [id number] Ang Will MD LAB REF LAB BLOOD AND FLU ID ORD Final Result Performing Organization Address City/[facility]/ZIP Co de Phone Number [facility] (BEAKER) [address] [place] [address] * (ABNORMAL) Creatine Kinase, Total, Plasma (05/04/2025 4:33 AM EDT) Pathologist [facility] Creatine Kinase, Plasma 33(L) 49 - 320 U/L 05/04/2025 5:27 AM EDT [facility] Blood Venous blood specimen / Unknown Venipuncture / Unknown 05/04/2025 4:33 AM EDT 05/04/2025 4:44 AM EDT Ang Will MD LAB BLOOD ORDERABLES Courtney l Result [facility] [address] [place] [address] * (ABNORMAL) CBC W/O Differential (05/04/2025 4:33 [...] 4:33 AM EDT 05/04/2025 4:45 AM EDT us Ang Will MD LAB BLOOD ORDERABLES Courtney ferrari Result [facility] [address] [place] [address] * (ABNORMAL) Comprehensive metabolic panel (05/04/2025 4:33 AM EDT) Only the most recent of7 resultswithin the time period is included. [facility] Glucose, Plasma 92 74 - 99 mg/dL [...] ORDERABLES Courtney l Result Performing Organization Address [facility] Co de Phone Number [facility] [address] [place] [address] * (ABNORMAL) Bilirubin, direct (05/02/2025 1:42 PM EDT) Only the most recent of2 resultswithin the time period is included. Conjugated Bilirubin, Plasma 0.7(H) <=0.3 mg/dL 05/02/2025 2:51 PM EDT [facility] Blood Venous blood specimen / Unknown Venipuncture / Unknown 05/02/2025 1:42 PM EDT 05/02/2025 2:10 PM EDT Ang Will MD LAB BLOOD ORDERABLES Courtney l Result Performing Organization Address [facility] [place] [address] * (ABNORMAL) Lactate, venous (05/02/2025 2:07 AM EDT) Only the most recent of3 resultswithin the time period is included. Lactate, Venous, Whole Blood 3.0(H) 0.5 - 2.2 mmol/L LAB HEMATOLOGY METHOD 05/02/2025 2:21 AM EDT [facility] Blood Venous blood specimen / Unknown Venipuncture / Unknown 05/02/2025 2:07 AM EDT 05/02/2025 2:19 AM EDT Lexi Crane APRN LAB BLOOD ORDERABLES Final Re sult Performing Organization Address City/[facility]/ZIP Co de Phone Number [facility] [address] [place] [address] * (ABNORMAL) Prothrombin Time/INR (05/02/2025 2:07 AM [...] INR 2.5 to 3.5 Prevention of recurrent ME INR 2.5 to 3.5 Lexi Crane APRN LAB BLOOD ORDERABLES Final Re sult Performing Organization Address [facility]/ZIP Co de Phone Number [facility] [address] [place] [address] * (ABNORMAL) CBC and differential (05/02/2025 2:07 [...] [facility] [address] [place] [address] * US Abdomen RUQ (05/01/2025 7:43 PM [...] Vanessa Reid MD on 05/01/2025 8:43 PM Clotilde Saleh MD [facility] US PROCEDURES Final Result * [...] EDT us Clotilde Saleh MD LAB BLOOD BANK TEST ORDERABLES Final Result Performing Organization Address [facility] Co de Phone Number BLOOD BANK [address] [place] [address], * Magnesium (05/01/2025 5:54 PM EDT) Pathologist [facility] Magnesium, Plasma 1.9 1.9 - 2.4 mg/dL 05/01/2025 6:22 PM EDT [facility] Blood Venous blood specimen / Unknown Venipuncture / Unknown 05/01/2025 5:54 PM EDT 05/01/2025 5:58 PM EDT Clotilde Saleh MD LAB BLOOD ORDERABLES Final Resu lt Performing Organization Address [facility] Co de Phone Number [facility] [address] [place] [address] * (ABNORMAL) Lipase (05/01/2025 5:54 PM EDT) Only the most recent of2 resultswithin the time period is included. [facility] Lipase, Plasma 11(L) 19 - 63 U/L 05/01/2025 6:22 PM EDT [facility] Blood Venous blood specimen / Unknown Venipuncture / Unknown 05/01/2025 5:54 PM EDT 05/01/2025 5:58 PM EDT Clotilde Saleh MD LAB BLOOD ORDERABLES Final Resu lt Performing Organization Address [facility] [place] [address] * EKG now - STAT (adult) (05/01/2025 5:43 PM EDT) Only the most recent of2 resultswithin the time period is included. [facility] EKG DIAGNOSIS CLASS Abnormal MUSE ECG Ventricular Rate 70 BPM MUSE ECG Atrial Rate 70 BPM MUSE ECG TN Interval 138 ms MUSE ECG QRSD Interval 86 ms MUSE ECG QT Interval 414 ms MUSE ECG QTC Interval 447 ms MUSE ECG P [place] 50 degrees MUSE ECG R [place] -53 degrees MUSE ECG T Wave [place] 43 degrees MUSE ECG Diagnosis Normal sinus rhythm with sinus arrhythmia MUSE ECG Diagnosis Left axis deviation MUSE ECG Diagnosis Anterior infarct , age undetermined MUSE ECG Diagnosis T wave abnormality, consider lateral ischemia MUSE ECG Diagnosis MUSE ECG Diagnosis MUSE ECG Diagnosis Confirmed by Jordyn Pompa ([id number]) on 05/02/2025 3:24:55 PM MUSE ECG 05/01/2025 5:43 PM EDT 05/02/2025 3:24 PM EDT us Clotilde Saleh MD ECG ORDERABLES Final Result MUSE ECG * CT OUTSIDE IMAGES (05/01/2025 [...] [facility] [address] [place] [address] * ED HIV 1/2 Antibody/Antigen Screen w/Reflex to HIV 1/2 Differentiation (03/20/2025 6:51 PM EDT) HIV 1 & 2 Antibody/Antigen Screen Non Reactive Non Reactive 03/20/2025 8:05 PM EDT [facility] Comment:Screening for HIV 1 & 2 antibodies, and P24 antigen is NONREACTIVE. No confirmatory testing is required. Blood Venous blood specimen / Unknown Venipuncture / Unknown 03/20/2025 6:51 PM EDT 03/20/2025 7:09 PM EDT [facility] BLOOD ORDERABLES Courtney l Result Performing Organization Address City/[facility]/ZIP Co de Phone Number [facility] [address] [place] [address] * Troponin now and 120 min (03/20/2025 6:51 PM EDT) [facility] Troponin T, High Sensitivity, 0 Hour 9 <19 ng/L 03/20/2025 7:35 PM EDT [facility] Blood Venous blood specimen / Unknown Venipuncture / Unknown 03/20/2025 6:51 PM EDT 03/20/2025 7:09 PM EDT [facility] [employer] [facility] BLOOD ORDERABLES Courtney l Result Performing Organization Address [facility] Co de Phone Number [facility] [address] [place] [address] * Hepatitis C Antibody - ED (03/20/2025 6:51 PM EDT) [facility] Hepatitis C Antibody Negative Negative 03/20/2025 8:01 PM EDT [facility] Blood Venous blood specimen / Unknown Venipuncture / Unknown 03/20/2025 6:51 PM EDT 03/20/2025 7:09 PM EDT [facility] BLOOD ORDERABLES Courtney l Result Performing Organization Address City/[facility] Co de Phone Number [facility] [address] [place] [address] * APTT (03/20/2025 6:51 PM EDT) [facility] aPTT 31 25 - 35 sec 03/20/2025 7:25 PM EDT [facility] Blood Venous blood specimen / Unknown Venipuncture / Unknown 03/20/2025 6:51 PM EDT 03/20/2025 7:08 PM EDT [facility] [employer] [facility] BLOOD ORDERABLES Courtney l Result Performing Organization Address [facility] de Phone Number [facility] [address] [place] [address] * C-Reactive protein (03/20/2025 6:51 PM EDT) [...] disease risk order high sensitivity CRP (CRPH). [facility] BLOOD ORDERABLES Courtney l Result Performing Organization Address [facility] de Phone Number [facility] [address] [place] [address] * CT THORACIC OUTSIDE IMAGES (03/20/2025 1:13 [...] signing this report, I, the attending physician, attvenuat I have personally reviewed the images/data for [...] Result [facility] [address] [place] [address] * Cancer Antigen, GI (CA 19.9) (03/14/2025 8:38 AM EDT) CA 19.9 26.5 <36 U/mL 03/14/2025 10:22 AM EDT [facility] [...] BLOOD ORDERABLES Final Result Performing Organization Address City/[facility]/ZIP Co de Phone Number [facility] [address] [place] [address] * (ABNORMAL) CEA, Serum (03/14/2025 8:38 AM EDT) CEA, Serum 5.2(H) <4.0 ng/mL 03/14/2025 10:22 AM EDT [facility] [...] BLOOD ORDERABLES Final Result Performing Organization Address [facility] Co de Phone Number [facility] [address] [place] [address] from Last 3 Months Insurance [place] MEDICARE [...] updated to appropriate status: Yes Care Teams Compliance Director Relationship Specialty Start Date End Date Pcp, No [address] [place] [address] PCP - General Family Medicine 03/20/25 Isabella Saucedo APRN 1210 [facility] [address] [place] [address] Referring Physician 02/26/25 Jeannie Mcmillan, RN [facility]MINISTRATION [address] [place] [address] Registered Nurse Transplant Surgery 03/08/25 [place] [address] Registered Nurse Transplant Surgery 03/08/25 Rodney Gonzáles MD 1210 [facility] [address] [place] [address] Medical Oncologist 04/10/25
--- OUTSIDE RECORDS SUMMARY | 2025-05-15 04:42 | XMS_ITS | Encounter Summary ---
Author Organization Healthcare Address [address] [place] [address] Care Team Providers Care Rn Document Improvement Specialist Name Role Phone Isabella Saucedo Phong PERSONAL COMPUTER NETWORK ENGINEER Unavailable [phone] Jeannie Mcmillan RN Unavailable [phone] Ebony Shoemaker Unavailable [phone] Pcp, No Primary Care Provider Unavailabl e Rodney Gonzáles MD Unavailable [phone] Encounter Details Date Type Department Care Team (Late st Contact Info) Description 05/01/2025 Orders Only External Location [address] [place] [phone] Chris Lazo MD [address] [address] Social History Tobacco Use Types [...] any time in the past 12 m [facility], were you homeless or living in a detention (including now)? No 05/02/2025 [facility] Utilities Answer Date Recorded In [...] as of this encounter Care Teams Rn Document Improvement Specialist Relationship Specialty Start Date End Date Pcp, No [address] [place] [address] PCP - General Family Medicine 03/20/25 Isabella Saucedo APRN [address] [place] [address] [address] [place] [address] Referring Physician 02/26/25 Jeannie Mcmillan, NIURKA [facility] [address] [place] [address] Registered Nurse Transplant Surgery 03/08/25 [place] [address] Registered Nurse Transplant Surgery 03/08/25 Rodney Gonzáles MD 1210 [facility] [address] [place] [address] Medical Oncologist 04/10/25 documented as of this encounter
--- OUTSIDE RECORDS SUMMARY | 2025-05-15 04:42 | XMS_ITS | Encounter Summary ---
Author Organization [place] [address] Care Team Providers Care Forestry Workers Name Role Phone Jan Sin MD Unavailable [phone] Macario Pryor MD Unavailable Unavailabl e Cr Resendez MD Primary Care Provider Reason for Visit * Reason Comments Medication Refill Encounter Details Date Type Department Care Team (Late st Contact Info) Description 03/26/2025 Refill SEP Luis [facility] [place] [address] Cr Resendez MD [address] [place] [address] [address] [place] [id number] Medication Refill Social History Tobacco Use Types [...] documented as of this encounter Care Teams Forestry Workers Relationship Specialty Start Date End Date Macario Pryor MD [address] [place] [address] [place] [address] PCP - Hematology/Oncology Internal Medicine-Medical Oncology 11/12/15 Cr Resendez MD [address] [place] [address] [place] [address] PCP - General Family Medicine 11/24/21 Jan Sin MD [address] [place] [address] [place] [address] Internal Medicine-Cardiovascul ar Disease 08/28/14 documented as of this encounter
--- OUTSIDE RECORDS SUMMARY | 2025-05-15 04:42 | XMS_ITS | Encounter Summary ---
Author Organization [place] [address] Care Team Providers Care Fox Farmer Name Role Phone Jan Sin MD Unavailable [phone] Macario Pryor MD Unavailable Cr Rodriguez MD Primary Care Provider [phone] Reason for Visit * Reason Onset Date Comments Bloated 05/05/2025 Encounter Details Date Type Department Care Team (Late st Contact Info) Description 05/05/2025 Nurse Triage SEP Nurse Now [address] [place] [id number] Alicia Jones, RN Social History Tobacco [...] Call -Chief Complaint: pt just returned from [facility] for oncology. He was discharged today looking [...] getting worse Protocols used: Abdomen Bloating and Sjaldeoy-U-ZY documented in this encounter Plan of Treatment [...] documented as of this encounter Care Teams Fox Farmer Relationship Specialty Start Date End Date Macario Pryor MD [address] [place] [address] [place] [address] PCP - Hematology/Oncology Internal Medicine-Medical Oncology 11/12/15 Cr Resendez MD [address] [place] [address] [place] [address] PCP - General Family Medicine 11/24/21 Jan Sin MD [address] [place] [address] [place] [address] Internal Medicine-Cardiovascul ar Disease 08/28/14 documented as of this encounter
--- OUTSIDE RECORDS SUMMARY | 2025-05-15 04:42 | XMS_ITS | Clinical Summary ---
Author Organization [facility] Address [address] [facility] [address] [place] [id number] Phone Care Team Providers Care Felt Puller Name Role Phone Leander RIOS, [facility] Conditions or Problems Problem Name Problem Code Onset Date Status Entry Date Provider Comment Standard Description Annotate FOLLOW-UP EXAMINATION FOLLOWING OTHER SURGERY Z09 (ICD-10-CM) 10/20 Active 10/20 Emily Kern MA Encounter for follow-up examination after completed treatment for conditions other than malignant neoplasm BACK PAIN, LUMBAR, WITH RADICULOPATHY [id number] (SNOMED CT) Active Emily Kern MA Lumbar radiculopathy Medications Medication Instructions Start Date Stop Date Generic Name [facility] Provider MELOXICAM 15 MG TABS 1 daily Non-[facility] 8 MELOXICAM [id number] Emily Kern MA METOPROLOL TARTRATE 25 MG TABS 1 daily Non-[place] 8 METOPROLOL TARTRATE [id number] Emily Kern MA PRAVASTATIN SODIUM 40 MG TABS 1 daily Non-[place] 8 PRAVASTATIN SODIUM [id number] Emily Wilsonriccardo WILL PLAVIX 75 MG TABS 1 daily Non-[place] 8 CLOPIDOGREL BISULFATE [id number] Emily Wilsonriccardo WILL LISINOPRIL 5 MG TABS 1 daily Non-[place] 8 LISINOPRIL [id number] Emily Wilsonriccardo WILL ASPIRIN ADULT LOW STRENGTH 81 MG TBEC 1 daily Non-[place] 8 ASPIRIN [id number] Emilynathaniel Kern MA ALPRAZOLAM 1 MG TABS 1 qhs Non-[facility] 8 ALPRAZOLAM [id number] Emily Kern MA HYDROCODONE-BRENNAN TAMINOPHEN 10-650 MG ORAL TABLET 1 qid Non-[facility] 8 HYDROCODONE-AC ETAMINOPHEN [id number] Emily Kern MA GABAPENTIN 600 MG TABS 2 q morning & 3 q evening [facility] 8 GABAPENTIN [id number] Emily Kern MA RANEXA 500 MG ORAL TABLET EXTENDED RELEASE 12 HOUR 1 bid [facility] 8 RANOLAZINE [phone] Emily Kern MA Medications Administered No information [...]
--- OUTSIDE RECORDS SUMMARY | 2025-05-15 04:42 | XMS_ITS | Encounter Summary ---
Author Organization Healthcare Address [address] [place] [address] Care Team Providers Care Applications Support Analyst Name Role Phone Isabella Saucedo NEUROLOGY TECH Unavailable [phone] Jeannie Mcmillan RN Unavailable [phone] Ebony Shoemaker Unavailable [phone] Pcp, No Primary Care Provider Unavailabl e Rodney Gonzáles MD Unavailable [phone] Reason for Referral * Transplant (Routine) [...] present (CMS/HCC) Isabella Saucedo APRN [address] [email or web address] [place] [address] Phone: tel: fax: Referral ID Status Reason Start Date Expiration Date Visits Requested Visits Authorized [id number] Authorized Specialty Services Required 02/26/[phone] Encounter Details Date Type Department Care Team (Late st Contact Info) Description 02/26/2025 [facility] [address] [place] [address] Isabella Saucedo APRN [address] [place] [email or web address] [place] [address] Invasion of liver, gallbladder, pancreas, ipsilateral branch [...] difficile Rule-Out 05/04/2025 05/04/20252024 9:53 PM EDT documented as of this encounter Care Teams Applications Support Analyst Relationship Specialty Start Date End Date Pcp, Tiki [address] [place] [address] PCP - General Family Medicine 03/20/25 Isabella Saucedo APRN [address] [place] [address] Referring Physician 02/26/25 Jeannie Mcmillan, RN [facility] [address] [place] [address] Registered Nurse Transplant Surgery 03/08/25 [place] [address] Registered Nurse Transplant Surgery 03/08/25 Rodney Gonzáles MD 1210 [facility] [address] [place] [address] Medical Oncologist 04/10/25 documented as of this encounter
--- OUTSIDE RECORDS SUMMARY | 2025-05-15 04:43 | XMS_ITS | Encounter Summary ---
Author Organization Healthcare Address [address] [place] [address] Care Team Providers Care Drafter Heating And Ventilating Name Role Phone Isabella Saucedo Phong LOG CHECK SCALER Unavailable [phone] Jeannie Mcmillan RN Unavailable [phone] Ebony Shoemaker Unavailable [phone] Pcp, No Primary Care Provider Unavailabl e Rodney Gonzáles MD Unavailable [phone] Encounter Details Date Type Department Care Team (Late st Contact Info) Description 12/06/2024 Orders Only External Location [address] [place] [address] Provider, External Social History Tobacco Use Types [...] documented as of this encounter Care Teams Drafter Heating And Ventilating Relationship Specialty Start Date End Date Pcp, No [address] [place] [address] PCP - General Family Medicine 03/20/25 Isabella Saucedo APRN 1210 [facility] [address] [place] [address] Referring Physician 02/26/25 Jeannie Mcmillan, RN [facility] [address] [place] [address] Registered Nurse Transplant Surgery 03/08/25 Ebony Shoemaker [place] [id number] Registered Nurse Transplant Surgery 03/08/25 Rodney Gonzáles MD 1210 [facility] [address] [place] [address] Medical Oncologist 04/10/25 documented as of this encounter
--- OUTSIDE RECORDS SUMMARY | 2025-05-15 04:43 | XMS_ITS | Encounter Summary ---
Author Organization Healthcare Address [address] [place] [address] Care Team Providers Care Railway Switchman Name Role Phone Isabella Saucedo Phong [employer] Unavailable [phone] Jeannie Mcmillan RN Unavailable [phone] Ebony Shoemaker Unavailable [phone] Pcp, No Primary Care Provider Unavailabl e Rodney Gonzáles MD Unavailable [phone] Encounter Details Date Type Department Care Team (Late st Contact Info) Description 12/06/2024 Orders Only External Location [address] [place] [address] Provider, External Social History Tobacco Use Types [...] documented as of this encounter Care Teams Railway Switchman Relationship Specialty Start Date End Date Pcp, No [address] [place] [address] PCP - General Family Medicine 03/20/25 Isabella Saucedo APRN 1210 [facility] [address] [place] [address] Referring Physician 02/26/25 Jeannie Mcmillan, RN [facility] 800 [place] [address] Registered Nurse Transplant Surgery 03/08/25 Ebony Shoemaker [place] [id number] Registered Nurse Transplant Surgery 03/08/25 Rodney Gonzáles MD 1210 [facility] [address] [place] [address] Medical Oncologist 04/10/25 documented as of this encounter
--- OUTSIDE RECORDS SUMMARY | 2025-05-15 04:43 | XMS_ITS | Encounter Summary ---
Author Organization Healthcare Address [address] [place] [address] Care Team Providers Care Documentation Lead Name Role Phone Isabella Saucedo Phong PAD CUTTER Unavailable [phone] Jeannie Mcmillan RN Unavailable [phone] Ebony Shoemaker Unavailable [phone] Pcp, No Primary Care Provider Unavailabl e Rodney Gonzáles MD Unavailable [phone] Encounter Details Date Type Department Care Team (Late st Contact Info) Description 11/22/2024 Orders Only External Location 800 [place] [address] Provider, External Social History Tobacco Use Types [...] documented as of this encounter Care Teams Documentation Lead Relationship Specialty Start Date End Date Pcp, No [address] [place], [place] [id number] PCP - General Family Medicine 03/20/25 Isabella Saucedo APRN 1210 [facility] [address] [place] [address] Referring Physician 02/26/25 Jeannie Mcmillan, RN [facility] [address] [place] [address] Registered Nurse Transplant Surgery 03/08/25 Ebony Shoemaker [place] [id number] Registered Nurse Transplant Surgery 03/08/25 Rodney Gonzáles MD 1210 [facility] [address] [place] [address] Medical Oncologist 04/10/25 documented as of this encounter
--- OUTSIDE RECORDS SUMMARY | 2025-05-15 04:43 | XMS_ITS | Encounter Summary ---
Author Organization [facility] Address [address] [place] [address] Care Team Providers Care Drop Hammer Set Up Operator Name Role Phone Isabella Saucedo Phong ATTENDANCE OFFICER Unavailable [phone] Jeannie Mcmillan RN Unavailable [phone] Ebony Shoemaker Unavailable [phone] Reason for Referral * Consultation (Routine) - Authorized Specialty Diagnoses / Procedures Referred By Contac t Referred To Contact Medical Oncology Diagnoses Elevated AFP Liver lesion Peter Do MD [address] [address] Phone: tel: fax: Referral ID Status Reason Start Date Expiration Date Visits Requested Visits Authorized [id number] Authorized Consult and Treat 03/16/2025 09/15/2026 1 1 Reason for Visit * Reason Comments Txp Surgical Follow-up Ernestina: Tumor Boar d Discussion 03/16/25 Encounter Details Date Type Department Care Team (Late st Contact Info) Description 03/16/2025 Telephone [facility] [address] [place] [address] [address] [place] [address] Txp Surgical Follow-up (Ernestina: Tumor [...] documented as of this encounter Care Teams Drop Hammer Set Up Operator Relationship Specialty Start Date End Date Isabella Saucedo APRN 1210 [place] [facility] [address] [place] [address] Referring Physician 02/26/25 Jeannie Mcmillan, RN [facility] [address] [place] [address] Registered Nurse Transplant Surgery 03/08/25 [place] [address] Registered Nurse Transplant Surgery 03/08/25 documented as of this encounter
--- OUTSIDE RECORDS SUMMARY | 2025-05-15 04:43 | XMS_ITS | Encounter Summary ---
Author Organization Healthcare Address [address] [place] [address] Care Team Providers Care Pot Liner Name Role Phone Isabella Saucedo Phong CREW TRUCK DRIVER Unavailable [phone] Jeannie Mcmillan RN Unavailable [phone] Ebony Shoemaker Unavailable [phone] Pcp, No Primary Care Provider Unavailabl e Rodney Gonzáles MD Unavailable [phone] Encounter Details Date Type Department Care Team (Late st Contact Info) Description 11/15/2024 Orders Only External Location 800 [place] [address] Provider, External Social History Tobacco Use Types [...] documented as of this encounter Care Teams Pot Liner Relationship Specialty Start Date End Date Pcp, [place] [address] PCP - General Family Medicine 03/20/25 Isabella Saucedo APRN 1210 [facility] [address] [place] [address] Referring Physician 02/26/25 Jeannie Mcmillan, RN [facility] [address] [place] [address] Registered Nurse Transplant Surgery 03/08/25 Ebony Shoemaker [place] [id number] Registered Nurse Transplant Surgery 03/08/25 Rodney Gonzáles MD 1210 [facility] [address] [place] [address] Medical Oncologist 04/10/25 documented as of this encounter
--- OUTSIDE RECORDS SUMMARY | 2025-05-15 04:43 | XMS_ITS | Encounter Summary ---
Author Organization Healthcare Address [address] [place] [address] Care Team Providers Care Kitchen Hand Name Role Phone Isabella Saucedo Phong FISH HATCHERY INSPECTOR Unavailable [phone] Jeannie Mcmillan RN Unavailable [phone] Ebony Shoemaker Unavailable [phone] Pcp, No Primary Care Provider Unavailabl e Rodney Gonzáles MD Unavailable [phone] Encounter Details Date Type Department Care Team (Late st Contact Info) Description 12/06/2024 Orders Only External Location [address] [place] [address] Provider, External Social History Tobacco Use Types [...] documented as of this encounter Care Teams Kitchen Hand Relationship Specialty Start Date End Date Pcp, No [address] [place] [address] PCP - General Family Medicine 03/20/25 Isabella Saucedo APRN 1210 [facility] [address] [place] [address] Referring Physician 02/26/25 Jeannie Mcmillan, RN [facility] 800 [place] [address] Registered Nurse Transplant Surgery 03/08/25 Ebony Shoemaker [place] [phone] Registered Nurse Transplant Surgery 03/08/25 Rodney Gonzáles MD 1210 [facility] [address] [place] [address] Medical Oncologist 04/10/25 documented as of this encounter
--- OUTSIDE RECORDS SUMMARY | 2025-05-15 04:43 | XMS_ITS | Encounter Summary ---
Author Organization Healthcare Address [address] [place] [address] Care Team Providers Care Political Organizer Name Role Phone Isabella Saucedo Phong QUALITY TESTER Unavailable [phone] Jeannie Mcmillan RN Unavailable [phone] Ebony Shoemaker Unavailable [phone] Pcp, No Primary Care Provider Unavailabl e Rodney Gonzáles MD Unavailable [phone] Encounter Details Date Type Department Care Team (Late st Contact Info) Description 01/06/2024 Orders Only External Location [address] [place] [address] Provider, External Social History Tobacco Use Types [...] documented as of this encounter Care Teams Political Organizer Relationship Specialty Start Date End Date Pcp, [place] [address] PCP - General Family Medicine 03/20/25 Isabella Saucedo APRN 1210 [facility] [address] [place] [address] Referring Physician 02/26/25 Jeannie Mcmillan, RN [facility] 800 [place] [address] Registered Nurse Transplant Surgery 03/08/25 Ebony Shoemaker [place] [phone] Registered Nurse Transplant Surgery 03/08/25 Rodney Gonzáles MD 1210 [facility] [address] [place] [address] Medical Oncologist 04/10/25 documented as of this encounter
--- OUTSIDE RECORDS SUMMARY | 2025-05-15 04:43 | XMS_ITS | Encounter Summary ---
Author Organization Healthcare Address [address] [place] [address] Care Team Providers Care Automatic Presser Name Role Phone Isabella Saucedo Phong UPHOLSTERY ESTIMATOR Unavailable [phone] Jeannie Mcmillan RN Unavailable [phone] Ebony Shoemaker Unavailable [phone] Pcp, No Primary Care Provider Unavailabl e Rodney Gonzáles MD Unavailable [phone] Encounter Details Date Type Department Care Team (Late st Contact Info) Description 12/06/2024 Orders Only External Location [address] [place] [address] Provider, External Social History Tobacco Use Types [...] as of this encounter Care Teams Automatic Presser Relationship Specialty Start Date End Date Pcp, No [address] [place] [address] PCP - General Family Medicine 03/20/25 Isabella Saucedo APRN 1210 [facility] [address] [place] [address] Referring Physician 02/26/25 Jeannie Mcmillan, RN [facility] 800 [place] [address] Registered Nurse Transplant Surgery 03/08/25 Ebony Shoemaker [place] [phone] Registered Nurse Transplant Surgery 03/08/25 Rodney Gonzáles MD 1210 [facility] [address] [place] [address] Medical Oncologist 04/10/25 documented as of this encounter
--- OUTSIDE RECORDS SUMMARY | 2025-05-15 04:43 | XMS_ITS | Encounter Summary ---
Author Organization Healthcare Address [address] [place] [address] Care Team Providers Care Health Care Liaison Name Role Phone Isabella Saucedo hPong PANTRY WORKER Unavailable [phone] Jeannie Mcmillan RN Unavailable [phone] Ebony Shoemaker Unavailable [phone] Pcp, No Primary Care Provider Unavailabl e Rodney Gonzáles MD Unavailable [phone] Encounter Details Date Type Department Care Team (Late st Contact Info) Description 12/06/2024 Orders Only External Location 800 [place] [address] Provider, External Social History Tobacco Use Types [...] as of this encounter Care Teams Health Care Liaison Relationship Specialty Start Date End Date Pcp, No [address] [place] [address] PCP - General Family Medicine 03/20/25 Isabella Saucedo APRN 1210 [facility] [address] [place] [address] Referring Physician 02/26/25 Jeannie Mcmillan, RN [facility] [address] [place] [address] Registered Nurse Transplant Surgery 03/08/25 Ebony Shoemaker [place] [phone] Registered Nurse Transplant Surgery 03/08/25 Rodney Gonzáles MD 1210 [facility] [address] [place] [address] Medical Oncologist 04/10/25 documented as of this encounter
--- OUTSIDE RECORDS SUMMARY | 2025-05-15 04:43 | XMS_ITS | Encounter Summary ---
Author Organization Healthcare Address [address] [place] [address] Care Team Providers Care Defense Analyst Name Role Phone Isabella Saucedo Phong INSURANCE RATER Unavailable [phone] Jeannie Mcmillan RN Unavailable [phone] Ebony Shoemaker Unavailable [phone] Pcp, No Primary Care Provider Unavailabl e Rodney Gonzáles MD Unavailable [phone] Encounter Details Date Type Department Care Team (Late st Contact Info) Description 01/12/2025 Orders Only External Location [address] [place] [address] Provider, External Social History Tobacco Use Types [...] documented as of this encounter Care Teams Defense Analyst Relationship Specialty Start Date End Date Pcp, No [address] [place], [place] [address] PCP - General Family Medicine 03/20/25 Isabella Saucedo APRN 1210 [facility] [address] [place] [address] Referring Physician 02/26/25 Jeannie Mcmillan, RN [facility] [address] [place] [address] Registered Nurse Transplant Surgery 03/08/25 Ebony Shoemaker [place] [id number] Registered Nurse Transplant Surgery 03/08/25 Rodney Gonzáles MD 1210 [facility] [address] [place] [address] Medical Oncologist 04/10/25 documented as of this encounter
--- OUTSIDE RECORDS SUMMARY | 2025-05-15 04:43 | XMS_ITS | Encounter Summary ---
Author Organization Healthcare Address [address] [place] [address] Care Team Providers Care Public Utilities Sales Representative Name Role Phone Isabella Saucedo Phong SEMICONDUCTOR WAFERS ETCHER STRIPPER Unavailable [phone] Jeannie Mcmillan RN Unavailable [phone] Ebony Shoemaker Unavailable [phone] Pcp, No Primary Care Provider Unavailabl e Rodney Gonzáles MD Unavailable [phone] Encounter Details Date Type Department Care Team (Late st Contact Info) Description 05/26/2022 Orders Only External Location [address] [place] [address] Provider, External Social History Tobacco Use Types [...] Indicated Resolved Time C. difficile Rule-Out 05/04/2025 05/04/202505/11/ 2025 9:53 PM EDT documented as of this encounter Care Teams Public Utilities Sales Representative Relationship Specialty Start Date End Date Pcp, No [address] [place] [address] PCP - General Family Medicine 03/20/25 Isabella Saucedo APRN 1210 [facility] [address] [place] [address] Referring Physician 02/26/25 Jeannie Mcmillan, RN [facility] [address] [place] [address] Registered Nurse Transplant Surgery 03/08/25 Ebony Shoemaker [place] [id number] Registered Nurse Transplant Surgery 03/08/25 Rodney Gonzáles MD 1210 [facility] [address] [place] [address] Medical Oncologist 04/10/25 documented as of this encounter
--- OUTSIDE RECORDS SUMMARY | 2025-05-15 04:43 | XMS_ITS | Encounter Summary ---
Author Organization Healthcare Address [address] [place] [address] Care Team Providers Care Master Technician Name Role Phone Isabella Saucedo Phong MANGANESE WHEELER Unavailable [phone] Jeannie Mcmillan RN Unavailable [phone] Ebony Shoemaker Unavailable [phone] Pcp, No Primary Care Provider Unavailabl e Rodney Gonzáles MD Unavailable [phone] Encounter Details Date Type Department Care Team (Late st Contact Info) Description 12/06/2024 Orders Only External Location 800 [place] [address] Provider, External Social History Tobacco Use Types [...] documented as of this encounter Care Teams Master Technician Relationship Specialty Start Date End Date Pcp, No [address] [place] [address] PCP - General Family Medicine 03/20/25 Isabella Saucedo APRN 1210 [facility] [address] [place] [address] Referring Physician 02/26/25 Jeannie Mcmillan, RN [facility] 800 [place] [address] Registered Nurse Transplant Surgery 03/08/25 Ebony Shoemaker [place] [id number] Registered Nurse Transplant Surgery 03/08/25 Rodney Gonzáles MD 1210 [facility] [address] [place] [address] Medical Oncologist 04/10/25 documented as of this encounter
--- OUTSIDE RECORDS SUMMARY | 2025-05-15 04:43 | XMS_ITS | Encounter Summary ---
Author Organization Healthcare Address [address] [place] [address] Care Team Providers Care Artist Suspect Name Role Phone Isabella Saucedo Phong DIRECTIONAL DRILL OPERATOR Unavailable [phone] Jeannie Mcmillan RN Unavailable [phone] Ebony Shoemaker Unavailable [phone] Pcp, No Primary Care Provider Unavailabl e Rodney Gonzáles MD Unavailable [phone] Encounter Details Date Type Department Care Team (Late st Contact Info) Description 01/04/2025 Orders Only External Location 800 [place] [address] Provider, External Social History Tobacco Use Types [...] Resolved Time C. difficile Rule-Out 05/04/2025 05/04/2025 2025 9:53 PM EDT documented as of this encounter Care Teams Artist Suspect Relationship Specialty Start Date End Date Pcp, No 800 [place] [id number] PCP - General Family Medicine 03/20/25 Isabella Saucedo APRN 1210 [facility] [address] [place] [address] Referring Physician 02/26/25 Jeannie Mcmillan, RN [facility] 800 [place] [address] Registered Nurse Transplant Surgery 03/08/25 [place] [address] Registered Nurse Transplant Surgery 03/08/25 Rodney Gonzáles MD 1210 [facility] [address] [place] [address] Medical Oncologist 04/10/25 documented as of this encounter
--- OUTSIDE RECORDS SUMMARY | 2025-05-15 04:43 | XMS_ITS | Encounter Summary ---
Author Organization Healthcare Address [address] [place] [address] Care Team Providers Care Coating Machine Operator Helper Name Role Phone Isabella Saucedo Phong HEALTH CAREERS INSTRUCTOR Unavailable [phone] Jeannie Mcmillan RN Unavailable [phone] Ebony Shoemaker Unavailable [phone] Pcp, No Primary Care Provider Unavailabl e Rodney Gonzáles MD Unavailable [phone] Encounter Details Date Type Department Care [...] or living in a jail (including now)? No 05/02/2025 [facility] Utilities Answer Date Recorded In the [...] documented as of this encounter Care Teams Coating Machine Operator Helper Relationship Specialty Start Date End Date Pcp, No [address] [place] [address] PCP - General Family Medicine 03/20/25 Isabella Saucedo APRN [address] [place] [address] [place] [address] Referring Physician 02/26/25 Jeannie Mcmillan, RN [facility] 800 [place] [address] Registered Nurse Transplant Surgery 03/08/25 [place] [address] Registered Nurse Transplant Surgery 03/08/25 Rodney Gonzáles MD [address] [place] [address] [place] [address] Medical Oncologist 04/10/25 documented as of this encounter
--- OUTSIDE RECORDS SUMMARY | 2025-05-15 04:43 | XMS_ITS | Encounter Summary ---
Author Organization Healthcare Address [address] [place] [address] Care Team Providers Care Sales Clerk Supervisor Name Role Phone Isabella Saucedo Phong TEACHER DRAMA Unavailable [phone] Jeannie Mcmillan RN Unavailable Ebony Shoemaker Unavailable [phone] Pcp, No Primary Care Provider Unavailabl e Rodney Gonzáles MD Unavailable [phone] Encounter Details Date Type Department Care Team (Late st Contact Info) Description 05/26/2022 Orders Only External Location 800 [place] [address] Provider, External Social History Tobacco Use Types [...] as of this encounter Care Teams Sales Clerk Supervisor Relationship Specialty Start Date End Date Pcp, [place] [address] PCP - General Family Medicine 03/20/25 Isabella Saucedo APRN 1210 [facility] [address] [place] [address] Referring Physician 02/26/25 Jeannie Mcmilaln, RN [facility] 800 [place] [address] Registered Nurse Transplant Surgery 03/08/25 Ebony Shoemaker [place] [phone] Registered Nurse Transplant Surgery 03/08/25 Rodney Gonzáles MD 1210 [facility] [address] [place] [address] Medical Oncologist 04/10/25 documented as of this encounter
--- OUTSIDE RECORDS SUMMARY | 2025-05-15 04:43 | XMS_ITS | Encounter Summary ---
Author Organization Healthcare Address [address] [place] [address] Care Team Providers Care Senior Water Resources Engineer Name Role Phone Isabella Saucedo Phong INDUSTRIAL EQUIPMENT WIRER Unavailable [phone] Jeannie Mcmillan RN Unavailable [phone] Ebony Shoemaker Unavailable [phone] Pcp, No Primary Care Provider Unavailabl e Rodney Gonzáles MD Unavailable [phone] Encounter Details Date Type Department Care [...] time in the past 12 [facility], were you homeless or living in a jail (including now)? No 05/02/2025 [facility] Utilities Answer Date Recorded In the [...] as of this encounter Care Teams Senior Water Resources Engineer Relationship Specialty Start Date End Date Pcp, [address] [address] PCP - General Family Medicine 03/20/25 Isabella Saucedo APRN 1210 [facility] [address] [place] [address] Referring Physician 02/26/25 Jeannie Mcmillan, RN [facility] [address] [place] [address] Registered Nurse Transplant Surgery 03/08/25 [place] [address] Registered Nurse Transplant Surgery 03/08/25 Rodney Gonzáles MD 1210 [facility] [address] [place] [address] Medical Oncologist 04/10/25 documented as of this encounter
--- OUTSIDE RECORDS SUMMARY | 2025-05-15 04:43 | XMS_ITS | Encounter Summary ---
Author Organization Healthcare Address [address] [place] [address] Care Team Providers Care Route Jumper Name Role Phone Isabella Saucedo Phong MEDIA SPECIALIST Unavailable [phone] Jeannie Mcmillan RN Unavailable [phone] Ebony Shoemaker Unavailable [phone] Pcp, No Primary Care Provider Unavailabl e Rodney Gonzáles MD Unavailable [phone] Encounter Details Date Type Department Care Team (Late st Contact Info) Description 06/03/2022 Orders Only External Location 800 [place] [address] Provider, External Social History Tobacco Use Types [...] documented as of this encounter Care Teams Route Jumper Relationship Specialty Start Date End Date Pcp, No 800 [place] [id number] PCP - General Family Medicine 03/20/25 Isabella aSucedo APRN 1210 [facility] [address] [place] [address] Referring Physician 02/26/25 Jeannie Mcmillan, RN [facility] 800 [place] [address] Registered Nurse Transplant Surgery 03/08/25 [place] [address] Registered Nurse Transplant Surgery 03/08/25 Rodney Gonzáles MD 1210 [facility] [address] [place] [address] Medical Oncologist 04/10/25 documented as of this encounter
--- OUTSIDE RECORDS SUMMARY | 2025-05-15 04:43 | XMS_ITS | Encounter Summary ---
Author Organization Healthcare Address [address] [place] [address] Care Team Providers Care Fire Control Technician B Name Role Phone Isabella Saucedo Phong DOCUMENT CONTROL MANAGER Unavailable [phone] Jeannie Mcmillan RN Unavailable [phone] Ebony Shoemaker Unavailable [phone] Pcp, No Primary Care Provider Unavailabl e Rodney Gonzáles MD Unavailable [phone] Encounter Details Date Type Department Care Team (Late st Contact Info) Description 12/07/2024 Orders Only External Location 800 [place] [address] Provider, External Social History Tobacco Use Types [...] documented as of this encounter Care Teams Fire Control Technician B Relationship Specialty Start Date End Date Pcp, [place] [address] PCP - General Family Medicine 03/20/25 Isabella Saucedo APRN 1210 [facility] [address] [place] [address] Referring Physician 02/26/25 Jeannie Mcmillan, RN [facility] 800 [place] [address] Registered Nurse Transplant Surgery 03/08/25 Ebony Shoemaker [place] [id number] Registered Nurse Transplant Surgery 03/08/25 Rodney Gonzáles MD 1210 [facility] [address] [place] [address] Medical Oncologist 04/10/25 documented as of this encounter
--- OUTSIDE RECORDS SUMMARY | 2025-05-15 04:43 | XMS_ITS | Encounter Summary ---
Author Organization Healthcare Address [address] [place] [address] Care Team Providers Care Carport Erector Name Role Phone Isabella Saucedo APRN Unavailable [phone] Jeannie Mcmillan RN Unavailable [phone] Ebony Shoemaker Unavailable [phone] Pcp, No Primary Care Provider Unavailabl e Rodney Gonzáles MD Unavailable [phone] Reason for Referral * Consultation (Routine) - Authorized Specialty Diagnoses / Procedures Referred By Contarjun t Referred To Contact Hematology and Oncology Diagnoses Elevated alpha fetoprotein Liver tumor Isabella Saucedo APRN 1210 [address] [place] [address] Phone: tel: fax: Referral ID Status Reason Start Date Expiration Date Visits Requested Visits Authorized [id number] Authorized Specialty Services Required 02/20/2025 08/22/2026 1 1 Encounter Details Date Type Department Care Team (Late st Contact Info) Description 02/19/2025 [facility] [address] [place] [address] Isabella Saucedo APRN [address] [place] [address] [place] [address] Elevated alpha fetoprotein (Primary Dx); Liver tumor [...] documented as of this encounter Care Teams Carport Erector Relationship Specialty Start Date End Date Pcp, No [address] [place] [address] PCP - General Family Medicine 03/20/25 Isabella Saucedo APRN 1210 [facility] [address] [place] [address] Referring Physician 02/26/25 eJannie Mcmillan, RN [facility] 800 [place] [address] Registered Nurse Transplant Surgery 03/08/25 [place] [address] Registered Nurse Transplant Surgery 03/08/25 Rodney Gonzáles MD 1210 [facility] [address] [place] [address] Medical Oncologist 04/10/25 documented as of this encounter
--- OUTSIDE RECORDS SUMMARY | 2025-05-15 04:43 | XMS_ITS | Encounter Summary ---
Author Organization Healthcare Address [address] [place] [address] Care Team Providers Care Tire Bladder Maker Name Role Phone Isabella Saucedo Phong BEAD PICKER Unavailable [phone] Jeannie Mcmillan RN Unavailable [phone] Ebony Shoemaker Unavailable [phone] Pcp, No Primary Care Provider Unavailabl e Rodney Gonzáles MD Unavailable [phone] Encounter Details Date Type Department Care Team (Late st Contact Info) Description 12/06/2024 Orders Only External Location 800 [place] [address] Provider, External Social History Tobacco Use Types [...] documented as of this encounter Care Teams Tire Bladder Maker Relationship Specialty Start Date End Date Pcp, No [address] [place] [address] PCP - General Family Medicine 03/20/25 Isabella Saucedo APRN 1210 [facility] [place] [address] [place] [address] Referring Physician 02/26/25 Jeannie Mcmillan, RN [facility] 800 [place] [address] Registered Nurse Transplant Surgery 03/08/25 Ebony Shoemaker [place] [id number] Registered Nurse Transplant Surgery 03/08/25 Rodney Gonzáles MD 1210 [facility] [address] [place] [address] Medical Oncologist 04/10/25 documented as of this encounter
--- OUTSIDE RECORDS SUMMARY | 2025-05-15 04:43 | XMS_ITS | Encounter Summary ---
Author Organization Healthcare Address [address] [place] [address] Care Team Providers Care Herbarium Worker Name Role Phone Isabella Saucedo Phong COVERSTITCH ELASTIC ATTACHER Unavailable [phone] Jeannie Mcmillan RN Unavailable [phone] Ebony Shoemaker Unavailable [phone] Pcp, No Primary Care Provider Unavailabl e Rodney Gonzáles MD Unavailable [phone] Encounter Details Date Type Department Care Team (Late st Contact Info) Description 01/14/2024 Orders Only External Location 800 [place] [address] Provider, External Social History Tobacco Use Types [...] Indicated Resolved Time C. difficile Rule-Out 05/04/2025 05/04/20255 9:53 PM EDT documented as of this encounter Care Teams Herbarium Worker Relationship Specialty Start Date End Date Pcp, No 800 [place] [address] PCP - General Family Medicine 03/20/25 Isabella Saucedo APRN 1210 [facility] [address] [place] [address] Referring Physician 02/26/25 Jeannie Mcmillan, RN [facility] 800 [place] [address] Registered Nurse Transplant Surgery 03/08/25 [place] [address] Registered Nurse Transplant Surgery 03/08/25 Rodney Gonzáles MD 1210 [facility] [address] [place] [address] Medical Oncologist 04/10/25 documented as of this encounter
--- OUTSIDE RECORDS SUMMARY | 2025-05-15 04:43 | XMS_ITS | Encounter Summary ---
Author Organization Healthcare Address [address] [place] [address] Care Team Providers Care Brushing Machine Operator Name Role Phone Isabella Saucedo Phong PHARMACY ACCOUNT DIRECTOR Unavailable [phone] Jeannie Mcmillan RN Unavailable [phone] Ebony Shoemaker Unavailable [phone] Pcp, No Primary Care Provider Unavailabl e Rodney Gonzáles MD Unavailable [phone] Encounter Details Date Type Department Care Team (Late st Contact Info) Description 01/12/2025 Orders Only External Location 800 [place] [address] Provider, External Social History Tobacco Use Types [...] documented as of this encounter Care Teams Brushing Machine Operator Relationship Specialty Start Date End Date Pcp, [place] [address] PCP - General Family Medicine 03/20/25 Isabella Saucedo APRN 1210 [facility] [address] [place] [address] Referring Physician 02/26/25 Jeannie Mcmillan, RN [facility]RATION 800 [place] [address] Registered Nurse Transplant Surgery 03/08/25 Ebony Shoemaker [place] [id number] Registered Nurse Transplant Surgery 03/08/25 Rodney Gonzáles MD 1210 [facility] [address] [place] [address] Medical Oncologist 04/10/25 documented as of this encounter
--- OUTSIDE RECORDS SUMMARY | 2025-05-15 04:43 | XMS_ITS | Encounter Summary ---
Author Organization Healthcare Address [address] [place] [address] Care Team Providers Care Addictions Counselor Assistant Name Role Phone Isabella Saucedo Phong SUPERINTENDENT HOUSE Unavailable [phone] Jeannie Mcmillan RN Unavailable [phone] Ebony Shoemaker Unavailable [phone] Pcp, No Primary Care Provider Unavailabl e Rodney Gonzáles MD Unavailable [phone] Encounter Details Date Type Department Care Team (Late st Contact Info) Description 12/07/2024 Orders Only External Location 800 [place] [address] Provider, External Social History Tobacco Use Types [...] documented as of this encounter Care Teams Addictions Counselor Assistant Relationship Specialty Start Date End Date Pcp, No [address] [place], [place] [id number] PCP - General Family Medicine 03/20/25 Isabella Saucedo APRN 1210 [facility] [address] [place] [address] Referring Physician 02/26/25 Jeannie Mcmillan, RN [facility]MINISTRATION 800 [place] [address] Registered Nurse Transplant Surgery 03/08/25 Ebony Shoemaker [place] [id number] Registered Nurse Transplant Surgery 03/08/25 Rodney Gonzáles MD 1210 [facility] [address] [place] [address] Medical Oncologist 04/10/25 documented as of this encounter
--- OUTSIDE RECORDS SUMMARY | 2025-05-15 04:43 | XMS_ITS | Encounter Summary ---
Author Organization Healthcare Address [address] [place] [address] Care Team Providers Care Factory Supervisor Name Role Phone Isabella Saucedo Phong RELISH MAKER Unavailable [phone] Jeannie Mcmillan RN Unavailable [phone] Ebony Shoemaker Unavailable [phone] Pcp, No Primary Care Provider Unavailabl e Rodney Gonzáles MD Unavailable [phone] Encounter Details Date Type Department Care Team (Late st Contact Info) Description 12/06/2024 Orders Only External Location 800 [place] [address] Provider, External Social History Tobacco Use Types [...] documented as of this encounter Care Teams Factory Supervisor Relationship Specialty Start Date End Date Pcp, No [address] [place] [address] PCP - General Family Medicine 03/20/25 Isabella Saucedo APRN 1210 [facility] [address] [place] [address] Referring Physician 02/26/25 Jeannie Mcmillan, RN [facility]MINISTRATION 800 [place] [address] Registered Nurse Transplant Surgery 03/08/25 Ebony Shoemaker [place] [id number] Registered Nurse Transplant Surgery 03/08/25 Rodney Gonzáles MD 1210 [facility] [address] [place] [address] Medical Oncologist 04/10/25 documented as of this encounter
--- OUTSIDE RECORDS SUMMARY | 2025-05-15 04:43 | XMS_ITS | Encounter Summary ---
Author Organization Healthcare Address [address] [place] [address] Care Team Providers Care Prototype Fabricator Name Role Phone Isabella Saucedo Phong DISTRIBUTION DISTRICT SUPERVISOR Unavailable [phone] Jeannie Mcmillan RN Unavailable [phone] Ebony Shoemaker Unavailable [phone] Pcp, No Primary Care Provider Unavailabl e Rodney Gonzáles MD Unavailable [phone] Encounter Details Date Type Department Care Team (Late st Contact Info) Description 12/06/2024 Orders Only External Location 800 [place] [address] Provider, External Social History Tobacco Use Types [...] documented as of this encounter Care Teams Prototype Fabricator Relationship Specialty Start Date End Date Pcp, No [address] [place] [address] PCP - General Family Medicine 03/20/25 Isabella Saucedo APRN 1210 [facility] [address] [place] [address] Referring Physician 02/26/25 Jeannie Mcmillan, RN [facility]MINISTRATION 800 [place] [address] Registered Nurse Transplant Surgery 03/08/25 Ebony Shoemaker [place] [id number] Registered Nurse Transplant Surgery 03/08/25 Rodney Gonzáles MD 1210 [facility] [address] [place] [address] Medical Oncologist 04/10/25 documented as of this encounter
[2025-05-15] MEDS: HYDROMORPHONE 2MG/ML SYRINGE 1 MG IV (04:49)
[2025-05-15] MEDS: ONDANSETRON 4MG/2ML VIAL 4 MG IV (04:49)
[2025-05-15 04:51] LABS: Hematocrit 42.5 % (42.0-52.0); Hemoglobin 14.2 g/dL (14.1-18.0); Immature Granulocytes % 0.5 %; Mean Corpuscular HGB Conc 33.4 g/dL (31.8-35.4); Mean Corpuscular Hemoglobin 31.9 pg (27.0-31.2); Mean Corpuscular Volume 95.5 fl (80-94); Nucleated Red Blood Cells % 0 %; Platelet Count 203 K/mm3 (142-424); Red Blood Count 4.45 M/mm3 (4.60-6.20); Red Cell Distribution Width-SD 57.8 fL; White Blood Count 7.8 K/mm3 (4.8-10.8)
[2025-05-15 05:05] LABS: INR 1.07 (0.9-1.1); Prothrombin Time 11.8 seconds (10.1-12.5)
[2025-05-15 05:08] LABS: Albumin Level 3.8 g/dl (3.5-5.0); Chloride 105 mmol/L (98-107); Potassium 3.5 mmoL/L (3.5-5.1); Sodium 141 mmol/L (136-145)
[2025-05-15 05:11] LABS: Alanine Aminotransferase 28 U/L (12-78); Albumin/Globulin Ratio 0.9 (1.1-1.8); Alkaline Phosphatase 309 U/L (38-126); Anion Gap 14.5 mEq/L (5-15); Aspartate Amino Transferase 121 U/L (17-59); Bilirubin,Total 1.8 mg/dl (0.2-1.3); Blood Urea Nitrogen 13 mg/dl (9-20); Calcium 9.4 mg/dl (8.4-10.2); Carbon Dioxide 25 mmol/L (22.0-30.0); Creatinine Clearance Estimated 62 mL/min (50-200); Creatinine,Serum 0.90 mg/dl (0.66-1.25); Estimated Glomerular Filt Rate 84 ml/min (>60); GFR (African American) 102 ML/MIN (>60); Globulin 4.2 g/dL (1.3-3.2); Glucose 158 mg/dl (74-100); Lipase 67 U/L (23-300); Total Protein,Serum 8.0 g/dl (6.3-8.2)
[2025-05-15] MEDS: IOPAMIDOL-370 (76%);100ML BOTTLE 75 ML IV (05:16)
[2025-05-15] MEDS: SODIUM CHLORIDE 0.9% 10ML SYR (RAD ONLY) 10 ML IV (05:16)
[2025-05-15 06:30] VITALS: BP 141/61; PULSE 80; RESP 19; TEMP 36.6; O2SAT 98
[2025-05-15] MEDS: OXYCODONE 5MG IMMEDIATE RELEASE TABLET 5 MG PO (06:34)
[2025-05-15 08:49] LABS: Reflex Lactic Add Lactic Reflex
== END 2025-05-15 06:39 | disposition home or self-care (01) ==
PROVIDERS: Emergency Provider Emergency Medicine; PCP Family Medicine
DX: R10.11 Right upper quadrant pain (principal); C22.0 Liver cell carcinoma; F17.210 Nicotine dependence, cigarettes, uncomplicated
CPT/HCPCS: 74177; 80053; 83605; 83690; 85025; 85610; 96374; 96375; 99284; J1171; J2405; Q9967

== ENCOUNTER 2025-05-22 10:55 | Outpatient (CLI) | payer MEDICARE, MEDICAID, SELFPAY ==
--- OUTSIDE RECORDS SUMMARY | 2016-03-04 08:15 | XMS_ITS | Encounter Summary ---
Author Organization [place] [address] Care Team Providers Care Community Center Coordinator Name Role Phone Jan Sin MD Unavailable [phone] Carlton James DO Primary Care Provide r Macario Pryor MD Unavailable Unavailabl e Encounter Details Date Type Department Care Team (Latest Contact Info) Description 03/04/2016 8:15 AM EDT Hospital Encounter [facility] 238 [facility] [place] [address] Poppy Quintero MD [address] [place], [place] [phone] Left without seen Social History Tobacco Use [...] 3:32 PM EDT Jer Sena RN * [place] Suicide Severity Rating Scale (Q shift for [...] documented as of this encounter Care Teams Community Center Coordinator Relationship Specialty Start Date End Date Carlton James DO [address] [place] [address] PCP - General Family Medicine 05/01/15 11/26/16 Macario Pryor MD [address] [place] [address] PCP - Hematology/Oncology Internal Medicine-Medical Oncology 11/12/15 Jan Sin MD [address] [place] [address] [place], [place] [id number] Internal Medicine-Cardiovascul ar Disease 08/28/14 documented as of this encounter
--- OUTSIDE RECORDS SUMMARY | 2025-04-23 09:00 | XMS_ITS | Encounter Summary ---
Author Organization [place] [address] Care Team Providers Care Piping Manager Name Role Phone Jan Sin MD Unavailable [phone] Macario Pryor MD Unavailable [facility] Cr Resendez MD Primary Care Provider [phone] Reason for Visit * Reason Comments Annual Exam Encounter Details Date Type Department Care Team (Late st Contact Info) Description 04/23/2025 9:00 AM EDT Office Visit SEP Luis [facility] [place] [phone] Cr Resendez MD [address] [place] [address] TRISTIAN MARTINEZ [id number] Encounter for Medicare annual wellness exam (Primary [...] Under treatment with GI and oncology at [facility]. On once monthly chemotherapy atthis time. [...] Currently being treated for hepatocellular carcinoma at [facility] Fall Risk Assessment: Fall Risk Assessment: [...] Under treatment with GI and oncology at [facility]. On once monthly chemotherapy atthis time. [...] prostate cancer screening Bilateral impacted cerumen Orders: [place] REMOVAL IMPACTED CERUMEN IRRIGATION/LVG UNILAT Cerumen impaction [...] visit. If you have a power of assistant prosecuting attorney stute, we should also have a [...] provided to the patient digitally through their [facility] account or with a paper copy if the patient doesn't have an active MyChart Account. A copy of today's progress note with recommendations below is alsoavailable electronically for patients with an active [employer] account per the Federal Cures Act. TheAVS [...] disease) (HCC) Depression Headache(784.0) Hypertension Kidney stone [place] (myocardial infarction) (HCC) 4 times Neuromuscular disorder (HCC) back and left leg Other disorders of kidney and ureter trys to go often Shortness of breath Past Surgical History: Procedure Laterality Date BACK SURGERY 08/30/1997 CARDIAC SURGERY cabg 2 times CARDIAC SURGERY 2019 pace maker CATARACT REMOVAL 08/30/2007 COLONOSCOPY N/A 10/14/2015 COLONOSCOPY snare polypectomy; Surgeon: Poppy Quintero MD; Location: [facility]COPY; Service: Endoscopy CORONARY ANGIOPLASTY WITH STENT PLACEMENT 01/04/2024 [facility] EYE SURGERY sandra cataract HERNIA REPAIR NECK SURGERY 12/06/2024 [facility] SPINAL CORD DECOMPRESSION 08/30/1998 UPPER GASTROINTESTINAL ENDOSCOPY N/A 10/30/2015 ESOPHAGOGASTRODUODENOSCOPY with biopsies; Surgeon: Poppy Quintero MD; Location: [facility]; Service: Endoscopy VASCULAR SURGERY spinal cord [...] Tablet by mouth daily. 90 Tablet 3 lqmniqchszt-jhutmvgih-kllheqpy (TRELEGY ELLIPTA) 100-62.5-25 mcg Inhl Disk with [...] SHAKE WELL nalOXone (NARCAN) 4 mg/actuation Nasl [place], Non-Aerosol 0.1 mL by Nasal route daily [...] Food Insecurity: Patient Declined (12/07/2024) Received from [facility] Hunger Vital Sign Worried About Running Out of Food in the Last Year: Patient declined Ran Out of Food in the Last Year: Patient declined Transportation Needs: Patient Declined (12/07/2024) Received from [facility] PRAPARE - Transportation Lack of Transportation (Medical): Patient declined Lack of Transportation (Non-Medical): Patient declined Housing Stability: Patient Declined (12/07/2024) Received from [facility] Housing Stability Vital Sign Unable [...] Type Priority Associated Diagnoses Orde r Schedule MS REMOVAL IMPACTED CERUMEN IRRIGATION/LVG UNILAT MS Charge Routine Bilateral impacted cerumen Ordered: 04/23/2025 documented as of this encounter Goals Goal Patient Goal Type Associated Problems Recent Progress Patient-Stated? Author Blood Pressure < 140/90 Blood Pressure 124/50(2024 8:47 AM EDT) No Jun Cruz MD Eat better, exercise, reach an ideal body weight General No Laen, Solo, RMA Stay Tobacco Free Lifestyle No [...] 0.08 <=4.00 ng/mL 04/23/2025 3:49 PM EDT [facility] Blood VENOUS BLOOD / Unknown Venipuncture / Unknown 04/23/2025 9:47 AM EDT 04/23/2025 9:47 AM EDT Narrative [facility] - 04/23/2025 3:49 PM EDT [...] CHEMISTRY ORDERABLES Final Res ult [facility] [employer] [employer] [facility] [address] [facility] , [place] [address] * LIPID PANEL REFLEX (04/23/2025 9:47 AM EDT) Cholesterol 98 <200 mg/dL 04/23/2025 4:37 PM EDT [facility] Comment: < 200 Desirable 200 - 239 Borderline High >= 240 High Triglyceride 38 <150 mg/dL 04/23/2025 4:37 PM EDT [facility] Comment: < 150 Normal 150 - 199 Borderline High 200 - 499 High >= 500 Very High HDL 40 >=40 mg/dL 04/23/2025 4:37 PM EDT [facility] Comment: > 60 Optimal 40 - 60 Acceptable < 40 Low LDL Calculated 47 <100 mg/dL 04/23/2025 4:37 PM EDT [facility] Comment: < 100 Optimal 100 - 129 Near or above optimal 130 - 159 Borderline High 160 - 189 High >= 190 Very High The National Institutes of Health (NIH) equation is used for all lipid panels that report calculated LDL (LDL-C). Non-HDL-C Calculated 58 <=129 mg/dL 04/23/2025 4:37 PM EDT [facility] Comment: <130 Desirable 130-159 Above Desirable 160-189 Borderline High 190-219 High >= 220 Very High Fasting Specimen? Yes None 025 4:37 PM EDT [facility] Blood VENOUS BLOOD / Unknown Venipuncture / Unknown 04/23/2025 9:47 AM EDT 04/23/2025 9:47 AM EDT Cr Resendez MD CHEMISTRY ORDERABLES Final Res ult Performing Organization Address [facility] de Phone Number [facility] [address] [facility] , [place] [id number] * TSH REFLEX TO FT4 (04/23/2025 9:47 AM EDT) TSH Reflex 0.889 0.270 - 4.200 mcIU/mL 04/23/2025 4:37 PM EDT [facility] Blood VENOUS BLOOD / Unknown Venipuncture / Unknown 04/23/2025 9:47 AM EDT 04/23/2025 9:47 AM EDT Narrative [facility] - 04/23/2025 4:37 PM EDT Ingestion of fernanda doses of biotin (>5 mg/day) taken within 8 hours of drawing blood sample can interfere with this immunoassay test. us Cr Resendez MD CHEMISTRY ORDERABLES Final Res ult Performing Organization Address [facility] de Phone Number [facility] [address] [facility] , [place] [address] * (ABNORMAL) CBC WITH DIFF (04/23/2025 9:47 AM EDT) WBC 7.3 3.7 - 10.3 x10(3)/mcL 04/23/2025 4:08 PM EDT [facility] RBC 4.77 4.60 - 6.10 x10(6)/mcL 04/23/2025 4:08 PM EDT [facility], [facility] Hgb 15.3 13.7 - 17.5 [...] 4:08 PM EDT [facility] [place] # 1.2(H) 0.3 - 0.9 x10(3)/mcL 04/23/2025 [...] sult [facility] [address] [facility] , [place] [address] * (ABNORMAL) COMPREHENSIVE METABOLIC PANEL (04/23/2025 9:47 [...] 04/23/2025 4:37 PM EDT [facility], [facility] Total Protein 8.3 6.4 - 8.3 gm/dL 04/23/2025 4:37 PM EDT [facility] Bili Total 1.2 0.2 - 1.4 mg/dL 04/23/2025 4:37 PM EDT [facility] ALT 26 <=41 U/L 04/23/2025 4:37 PM EDT [facility] AST 74(H) <=40 U/L 04/23/2025 4:37 PM EDT [facility] Alk Phos 142(H) 40 - 129 U/L 04/23/2025 4:37 PM EDT [facility] eGFR (CKD-EPIcr 2020) 96 >=60 mL/min/1.7 3 m2 04/23/2025 4:37 PM EDT [facility], [facility] Comment:Estimated GFR was ca lculated using the CKD-EPIcr (2020) equation refit without race. The equation is recommended by the National Kidney Foundation - [place] [employer] of Nephrology Task Force. Blood VENOUS BLOOD / Unknown Venipuncture / Unknown 04/23/2025 9:47 AM EDT 04/23/2025 9:47 AM EDT us Cr Resendez MD CHEMISTRY ORDERABLES Final Res ult [facility], [facility] [address] [facility] , [place] [address] * (ABNORMAL) HEMOGLOBIN A1C (04/23/2025 9:47 AM EDT) Hgb A1C 5.7(H) 4.2 - 5.6 % 04/23/2025 5:18 PM EDT [facility] Est. Avg Glucose 117 mg/dL 04/23/2025 5:18 PM EDT [facility], [facility] Blood VENOUS BLOOD / Unknown Venipuncture / Unknown 04/23/2025 9:47 AM EDT 04/23/2025 9:47 AM EDT Narrative [facility] - 04/23/2025 5:18 PM EDT REFERENCE RANGE: Normal: 4.0-5.6% Pre-diabetes: 5.7-6.4% Provisional diagnosis of diabetes: >6.4% Hgb F>10% and anything which shortens red cell survival, such as hemolytic anemia, or unstable hemoglobin variants such as HbSS, HbSC, or HbCC, will lower the HbA1c value associated with a given level of glycemic control. us Cr Resendez MD CHEMISTRY ORDERABLES Final Res ult [facility] [address] [facility] , [place] [address] documented in this encounter Visit Diagnoses Diagnosis [...] documented as of this encounter Care Teams Piping Manager Relationship Specialty Start Date End Date Macario Pryor MD [address] [place] [address] TRISTIAN NAILS [id number] PCP - Hematology/Oncology Internal Medicine-Medical Oncology 11/12/15 Cr Resendez MD [address] [place] [address] TRIST[place] MARTINEZ [address] PCP - General Family Medicine 11/24/21 Jan Sin MD [address] [place] [address] TRIST[place] NAILS [id number] Internal Medicine-Cardiovascul ar Disease 08/28/14 documented as of this encounter
--- OUTSIDE RECORDS SUMMARY | 2025-04-23 09:30 | XMS_ITS | Encounter Summary ---
Author Organization [place] [address] Care Team Providers Care Editorial Assistant Name Role Phone Jan Sin MD Unavailable [phone] Macario Pryor MD Unavailable Cr Rodriguez MD Primary Care Provider [phone] Reason for Visit * Reason Comments Care Management - Face To Face Care Transition Advance Care Planning Encounter Details Date Type Department Care Team (Latest Contact Info) Description 04/23/2025 9:30 AM EDT Clinical Support [facility] [place] [facility] [address] [place] [address] Elizabeth Reynoso, NIURKA Encounter for support [...] presents for follow up visit with Office Traditional Maori Health Practitioner (OCC) Reason for visit: Advanced Care Planning Visit Type: Face to Face Assessment: metal flow coordinator met with patient and spouse to [...] Educated patient on: Advanced Care Planning Handouts: [place] Living Will x 2 copies Handouts provided in person Care Coordination Business Card Goals: One-time assessment Next Steps: Traditional Maori Health Practitioner contact information given / reviewed Notes: No identified SDOH concerns after SDOH assessment review documented in this encounter Miscellaneous Notes * ACP (Advance Care Planning) - Elizabeth Reynoso RN - 04/23/2025 9:30 AM EDT Advance Care Planning discussion: ACP discussion: This parts data writer and patient addressed ACP including explanation [...] documented as of this encounter Care Teams Editorial Assistant Relationship Specialty Start Date End Date Macario Pryor MD [address] [place] [address] TRISTIAN NAILS [address] PCP - Hematology/Oncology Internal Medicine-Medical Oncology 11/12/15 Cr Resendez MD [address] [place] [address] TRISTIAN MARTINEZ [address] PCP - General Family Medicine 11/24/21 Jan Sin MD [address] [place] [address] TRISTIAN NAILS [id number] Internal Medicine-Cardiovascul ar Disease 08/28/14 documented as of this encounter
--- OUTSIDE RECORDS SUMMARY | 2025-05-01 16:53 | XMS_ITS | Encounter Summary ---
Author Organization Healthcare Address [address] [place] [address] Care Team Providers Care Television News Video Editor Name Role Phone Isabella Saucedo Phong SECURITY COMPLIANCE SPECIALIST Unavailable [phone] Jeannie Mcmillan RN Unavailable [phone] Ebony Shoemaker Unavailable [phone] Pcp, No Primary Care Provider Unavailabl e Rodney Gonzáles MD Unavailable [phone] Reason for Referral * Consultation (Routine) - Authorized Specialty Diagnoses / Procedures Referred By Contac t Referred To Contact Diagnoses RUQ abdominal pain Ang Will MD [address] [place] [address] Phone: tel: fax: Referral ID Status Reason Start Date Expiration Date V isits Requested Visits Authorized [id number] Authorized 05/05/2025 11/04/2026 1 1 Reason for Visit * Reason Comments Abdominal Pain * Auth/Cert (Routine) Specialty Diagnoses / Procedures Referred By Contarjun t Referred To Contact Diagnoses Abdominal pain Liver Cancer Britney Rai MD [address] [place] [address] Phone: tel: fax: [facility] A Inpatient [address] [place] [address] Referral ID Status Reason Start Date Expiration Date Visits Re quested Visits Authorized [id number] 1 1 Encounter Details Date Type Department Care Team (Latest Contact Info) Description 05/01/2025 4:53 PM EDT - 05/05/2025 2:45 PM EDT Hospital Encounter [facility] Inpatient [address] [place] [address] Willy Saleh MD [address] [place] [address] Britney Rai MD [address] [place] [address] Ang Will MD [address] [place] [address] Generalized abdominal pain (Primary Dx); [...] any time in the past 12 m [facility], were you homeless or living in a usp (including now)? No 05/02/2025 [facility] Utilities Answer Date Recorded In the [...] for shortness of breath or wheezing. 09/28/2024 bisoprolol (Zebeta) 5 MG tablet Take 1 tablet by mouth daily. clopidogrel (Plavix) 75 MG tablet Take 1 tablet by mouth 1 time each day. 11/15/2024 escitalopram (Lexapro) 20 MG tablet Take 1 [...] dose-measuring device, ask your pharmacist for one. Trelegy Ellipta 100-62.5-25 MCG/ACT aerosol powder INHALE 1 PUFF INTO THE LUNGS DAILY AT 0900. acetaminophen (Tylenol) 500 MG tablet Take 2 tablets by mouth 2 times a day as needed for pain. aspirin 81 MG EC tablet Take 1 tablet by mouth 1 time each day. atorvastatin (Lipitor) 20 MG tablet Take 1 tablet by mouth daily. calcium carbonate (Tums) 500 MG chewable tablet Chew 1 tablet every 4 hours as needed for indigestion or heartburn. 30 tablet 03/21/2025 clotrimazole (Lotrimin) 1 % cream Apply 1 Application topically as needed. 12/27/2024 cyclobenzaprine (Flexeril) 5 MG tablet Take 1 tablet by mouth every 8 hours as needed for muscle spasms. 02/12/2025 Entresto 24-26 MG tablet Take 1 tablet by mouth 2 times a day. naloxone (Narcan) 4 mg/0.1 mL nasal spray [...] by mouth nightly. 60 tablet 5 03/21/2025 documented as of this encounter Miscellaneous Notes * Discharge Summary - Ang Will MD - 05/05/2025 1:55 PM EDT Hospitalization Admit Date/Time: 05/01/2025 4:53 PM Admitting Attending: Britney Rai Discharge Date: 05/05/2025 Discharge Attending Physician: Ang Will MD PCP name and Address: Pcp, [address] [address] Referring provider name and address: Cr Lazo MD [address] [place] [address] Chief Concern, Brief History of Present Illness, and Hospital Course Rl Steward is a 65 y.o. male PMHx of COPD, tobacco dependence, ischemic heart disease, coronaryartery disease, anxiety, depression, chronic back pain, decompensated cirrhosis, and newly diagnosed hepatocellular carcinoma that presented to the emergency department as a transfer from [facility] with RUQ pain and concern for cholecystitis [...] #Cancer related pain (POA0 -Receiving chemotherapy at [facility]. Last dose of chemo was on 03/29. [...] overall morbidity & mortality. -Monitor albumin -Consult Mimeograph Operator -Continue megace #Nicotine dependence (POA) -Smokes about [...] Ellipta 100-62.5-25 MCG/ACT aerosol powder Generic drug: Wvbrjvcydth-Ojidkzuyn-Pzmlqp INHALE 1 PUFF INTO THE LUNGS DAILY [...] Flowsheets (Taken 05/05/2025 0921) Pain Management Interventions: yzeweg-rfc-hpiza dosing utilized medication (see MAR) care clustered [...] Flowsheets (Taken 05/05/2025 0921) Pain Management Interventions: padfqg-nrp-pqfig dosing utilized medication (see MAR) care clustered [...] Flowsheets (Taken 05/05/2025 0921) Pain Management Interventions: eogavt-nfr-cqvyh dosing utilized medication (see MAR) care clustered [...] With: patient spouse Taken 05/04/2025829 by Esme Poe RN Progress: improving Goal: Absence of Hospital-Acquired [...] Comfort Flowsheets (Taken 05/05/202548) Pain Management Interventions: iuhyly-evi-pgdgu dosing utilized care clustered pain management plan [...] Plan Flowsheets (Taken 05/05/202548) Pain Management Interventions: obmszb-rut-ejnly dosing utilized care clustered pain management plan [...] Inhalation, 4x daily PRN, Crane, Lexi L, SECURITY COMPLIANCE SPECIALIST calcium carbonate (Tums) chewable tablet 500 mg, 500 mg, Oral, q4h PRN, Crane, Lexi L, SECURITY COMPLIANCE SPECIALIST cyclobenzaprine (Flexeril) tablet 5 mg, 5 mg, Oral, BID PRN, Crane, Lexi L, SECURITY COMPLIANCE SPECIALIST, 5 mg at 736 escitalopram (Lexapro) tablet 20 mg, 20 mg, Oral, Daily, Crane, Lexi L, SECURITY COMPLIANCE SPECIALIST, 20 mg at 05/04/25826 furosemide (Lasix) tablet 20 mg, 20 mg, Oral, Daily, Crane, Lexi L, SECURITY COMPLIANCE SPECIALIST, 20 mg at 09/05/25 0827 HYDROmorphone (Dilaudid) injection 0.5 mg, 0.5 mg, Intravenous, q4h PRN, Rosa Maria Lexi L, SECURITY COMPLIANCE SPECIALIST, 0.5 mg at 05/04/25 1405 HYDROmorphone (Dilaudid) tablet 3 mg, 3 mg, Oral, q4h PRN, Rosa Maria Lexi L, SECURITY COMPLIANCE SPECIALIST, 3 mg at 05/03/25 1615 Tiotropium [place] Monohydrate (Spiriva Respimat) 2.5 MCG/ACT inhaler 2 puff, 2 puff, Inhalation, Daily, 2 puff at 05/04/25 0828 AND mometasone-formoterol (Dulera 100) 100-5 MCG/ACT inhaler 2 puff, 2 puff, Inhalation, BID, Bhavya Craneoya L, SECURITY COMPLIANCE SPECIALIST, 2 puff at 05/04/25 0828 nicotine (Nicoderm CQ) 21 MG/24HR patch 1 patch, 1 patch, Transdermal, Daily, Lexi Crane, SECURITY COMPLIANCE SPECIALIST,1 patch at 05/04/25 0827 piperacillin-tazobactam (Zosyn) 4.5 g in sodium chloride 0.9% 100 mL IVPB (vial adapter required), 4.5 g, Intravenous, q6h, Saadia Cranea L, SECURITY COMPLIANCE SPECIALIST, Last Rate: 36.7 mL/hr at 05/04/25 1405, 4.5 g at 05/04/25 1405 [COMPLETED] Insert peripheral IV, , , Once AND [COMPLETED] Saline lock IV, , , Once AND sodium chloride 0.9 % flush 10 mL, 10 mL, Intravenous, q12h, 10 mL at 05/04/25 0121 AND sodium chloride 0.9 % flush 10 mL, 10 mL, Intravenous, PRN, Bhavya Craneoya L, SECURITY COMPLIANCE SPECIALIST Cosigned by Tremaine Waddell MD at 05/07/2025 [...] the emergency department as a transfer from [facility] with RUQ pain and concern for cholecystitis [...] #Cancer related pain (POA0 -Receiving chemotherapy at [facility]. Last dose of chemo was on 03/29. [...] overall morbidity & mortality. -Monitor albumin -Consult Mimeograph Operator -Continue megace #Nicotine dependence (POA) -Smokes about [...] Note Rl Steward 65 y.o. male CSN: [id number] Admission: 05/01/2025 4:53 PM Primary Problem: Abdominal [...] Inhalation, 4x daily PRN, Crane, Lexi L, SECURITY COMPLIANCE SPECIALIST calcium carbonate (Tums) chewable tablet 500 mg, 500 mg, Oral, q4h PRN, Crane, Lexi L, SECURITY COMPLIANCE SPECIALIST cyclobenzaprine (Flexeril) tablet 5 mg, 5 mg, Oral, BID PRN, Crane, Lexi L, SECURITY COMPLIANCE SPECIALIST, 5 mg at 736 escitalopram (Lexapro) tablet 20 mg, 20 mg, Oral, Daily, Crane, Lexi L, SECURITY COMPLIANCE SPECIALIST, 20 mg at 05/03/25 08 furosemide (Lasix) tablet 20 mg, 20 mg, Oral, Daily, Crane, Lexi L, SECURITY COMPLIANCE SPECIALIST, 20 mg at 05/03/25 0802 HYDROmorphone (Dilaudid) injection 0.5 mg, 0.5 mg, Intravenous, q4h PRN, Crane, Lexi L, SECURITY COMPLIANCE SPECIALIST, 0.5 mg at 05/03/25 1406 HYDROmorphone (Dilaudid) tablet 3 mg, 3 mg, Oral, q4h PRN, Crane, Lexi L, SECURITY COMPLIANCE SPECIALIST, 3 mg at 05/02/25 0736 Tiotropium [place] Monohydrate (Spiriva Respimat) 2.5 MCG/ACT inhaler 2 puff, 2 puff, Inhalation, Daily, 2 puff at 05/03/25 0803 AND mometasone-formoterol (Dulera 100) 100-5 MCG/ACT inhaler 2 puff, 2 puff, Inhalation, BID, Crane, Lexi L, SECURITY COMPLIANCE SPECIALIST, 2 puff at 05/03/25 0804 nicotine (Nicoderm CQ) 21 MG/24HR patch 1 patch, 1 patch, Transdermal, Daily, Crane, Lexi L, SECURITY COMPLIANCE SPECIALIST,1 patch at 05/03/25 0802 piperacillin-tazobactam (Zosyn) 4.5 g in sodium chloride 0.9% 100 mL IVPB (vial adapter required), 4.5 g, Intravenous, q6h, Crane, Lexi L, SECURITY COMPLIANCE SPECIALIST, Last Rate: 36.7 mL/hr at 05/03/25 1230, 4.5 g at 05/03/25 1230 [COMPLETED] Insert peripheral IV, , , Once AND [COMPLETED] Saline lock IV, , , Once AND sodium chloride 0.9 % flush 10 mL, 10 mL, Intravenous, q12h, 10 mL at 05/02/25 2325 AND sodium chloride 0.9 % flush 10 mL, 10 mL, Intravenous, PRN, Crane, Lexi L, SECURITY COMPLIANCE SPECIALIST Cosigned by Tremaine Waddell MD at 05/07/2025 [...] the emergency department as a transfer from [facility] with RUQ pain and concern for cholecystitis [...] #Cancer related pain (POA0 -Receiving chemotherapy at [facility]. Last dose of chemo was on 03/29. [...] overall morbidity & mortality. -Monitor albumin -Consult Mimeograph Operator -Continue megace #Nicotine dependence (POA) -Smokes about [...] tobacco dependence, and hepatocellular carcinoma presenting to [facility] on 05/01/2025 with right upper quadrant abdominal [...] Inhalation 4x daily PRN Crane, Lexi L, SECURITY COMPLIANCE SPECIALIST calcium carbonate (Tums) chewable tablet 500 mg 500 mg Oral q4h PRN Crane, Lexi L, SECURITY COMPLIANCE SPECIALIST cyclobenzaprine (Flexeril) tablet 5 mg 5 mg Oral BID PRN Rosa Maria Lexi L, SECURITY COMPLIANCE SPECIALIST 5 mg at 05/02/25 0736 escitalopram (Lexapro) tablet 20 mg 20 mg Oral Daily Saadia Cranea L, SECURITY COMPLIANCE SPECIALIST 20 mg at 05/03/25 0802 furosemide (Lasix) tablet 20 mg 20 mg Oral Daily Crane, Lexi L, SECURITY COMPLIANCE SPECIALIST 20 mg at 05/03/25 0802 HYDROmorphone (Dilaudid) injection 0.5 mg 0.5 mg Intravenous q4h PRN Saadia Cranea L, SECURITY COMPLIANCE SPECIALIST 0.5 mg at05/03/25 1406 HYDROmorphone (Dilaudid) tablet 3 mg 3 mg Oral q4h PRN Saadia Cranea L, SECURITY COMPLIANCE SPECIALIST 3 mg at 05/03/25 1615 Tiotropium [place] Monohydrate (Spiriva Respimat) 2.5 MCG/ACT inhaler 2 puff 2 puff Inhalation Daily Saadia Cranea Vega, SECURITY COMPLIANCE SPECIALIST 2 puff at 05/03/25 0803 And mometasone-formoterol (Dulera 100) 100-5 MCG/ACT inhaler 2 puff 2 puff Inhalation BID Saadia Cranea Vega, SECURITY COMPLIANCE SPECIALIST 2 puff at 05/03/25 0804 nicotine (Nicoderm CQ) 21 MG/24HR patch 1 patch 1 patch Transdermal Daily Saadia Cranea Vega, SECURITY COMPLIANCE SPECIALIST 1 patch at 05/03/25 0802 piperacillin-tazobactam (Zosyn) 4.5 g in sodium chloride 0.9% 100 mL IVPB (vial adapter required) 4.5 g Intravenous q6h Rosa Maria Lexi Vega, SECURITY COMPLIANCE SPECIALIST 36.7 mL/hr at 05/03/25 1230 4.5 g at 09/04/25 1230 sodium chloride 0.9 % flush 10 mL 10 mL Intravenous q12h Lexi Crane, SECURITY COMPLIANCE SPECIALIST 10 mL at 05/02/25 2325 And sodium chloride 0.9 % flush 10 mL 10 mL Intravenous PRN Lexi Crane SECURITY COMPLIANCE SPECIALIST Cosigned by Kasey Blackwell MD at 05/03/2025 [...] hepatocellular carcinoma. We have been consultedas the zinc skimmer have concerns that his pain is related [...] patient and his Kasey Blackwell MD, FACS cushion worker Trauma Acute Care Surgery * Significant Event [...] Review Outcome: Ongoing, Progressing Flowsheets (Taken 05/03/2025 045) Progress: no change Plan of Care Reviewed [...] the emergency department as a transfer from [facility] with RUQ pain and concern for cholecystitis [...] #Cancer related pain (POA0 -Receiving chemotherapy at [facility]. Last dose of chemo was on 03/29. [...] overall morbidity & mortality. -Monitor albumin -Consult Mimeograph Operator -Continue megace #Nicotine dependence (POA) -Smokes about [...] Note Rl Steward 65 y.o. male CSN: [id number] Admission: 05/01/2025 4:53 PM Primary Problem: Abdominal pain Human Resources Assistant reviewed chart and spoke with patient and spouse at bedside to complete this Initial Case Management Assessment. PCP: Cr Resendez MD in [place], [place] Emergency Contact: Extended Emergency Contact Information Primary Emergency Contact: Ashley Steward [facility] Relation: Spouse Preferred language: Nauruan Kennel Helper needed? No Insurance: Primary Visit Coverage Payer Plan Sponsor Code Group Number Group Name MEDICARE MEDICARE A & B Primary Visit Coverage Subscriber Subscriber ID Subscriber Name Subscriber SSN Subscriber Address [id number] [id number] [address] [place] [address] Secondary Visit Coverage Payer Plan Sponsor Code Group Number Group Name [place] [facility] Secondary Visit Coverage Subscriber Subscriber ID Subscriber Name Subscriber SSN Subscriber Address [id number] [address] [phone] [address] [place] [address] Patient information: Primary Caregiver: Self Support System: Immediate family Daily Living Activities: Functional Status: Independent Living Arrangements: Spouse/Significant other Type of Residence: Private residence, Multi Level (stays on main floor; 2 steps for entry) [address] [facility] [address] Current DME: Equipment Currently Used at Home: none Income Information: Income/Expense Information: Income meets expenses Anticipated Discharge Date: TBD Patient's Discharge Goal: Return home Assistance Available at Discharge: Spouse & son Discharge Transport: Spouse Follow Up Transport: Spouse/Son Home Health / Home Infusion / Outpatient Dialysis Services: None Living Will/Advance Directive/Power of Pump Operator /Guardian: None Additional Comments: Pt confirmed address, EC, and insurance. Pt sees Cr Resendez in [place], [place] for primary care. Pt lives with [...] possible cholecystitis and was subsequently transferred to [facility] for further evaluation. Seen by [...] concerns. Keaton Ponce MD PGY-5 Gastroenterology Fellow [facility] [1] Past Medical History: Diagnosis Date COPD [...] Daily furosemide, 20 mg, Oral, Daily Tiotropium [place] Monohydrate, 2 puff, Inhalation, Daily And mometasone-formoterol, [...] the emergency department as a transfer from [facility] with RQU pain. Mr. Steward states that [...] Of note he is receiving chemotherapy at [facility]. He has only received 1 dose of [...] Food Insecurity: Patient Declined (12/07/2024) Received from [facility] Hunger Vital Sign Within the past 12 months, you worried that your food would run out before you got the money to buymore.: Patient declined Within the past 12 months, the food you bought just didn't last and you didn't have money to get more.: Patient declined Transportation Needs: Patient Declined (12/07/2024) Received from [facility] PRAPARE - Transportation Lack of Transportation (Medical): Patient declined Lack of Transportation (Non-Medical): Patient declined Physical Activity: Not on file Stress: Not on file Social Connections: Not on file Intimate Partner Violence: Not on file Housing Stability: Patient Declined (12/07/2024) Received from [facility] Housing Stability Vital Sign In the last 12 months, was there a time when you were not able to pay the mortgage or rent on time?: Patient declined In the past 12 months, how many times have you moved where you were living?: 0 At any time in the past 12 months, were you homeless or living in a usp (including now)?: Patient declined ROS: Review of [...] Abnormal Ventricular Rate 70 Atrial Rate 70 ME Interval 138 QRSD Interval 86 QT Interval 414 QTC Interval 447 P Bulger 50 R Bulger -53 T Wave Bulger 43 Diagnosis Normal sinus rhythm with sinus [...] the emergency department as a transfer from [facility] with RQU pain and concern for cholecystitis [...] #Cancer related pain (POA0 -Receiving chemotherapy at [facility]. Last dose of chemo was on 03/29. [...] overall morbidity & mortality. -Monitor albumin -Consult Mimeograph Operator -Continue megace #Nicotine dependence (POA) -Smokes about [...] of Internal Medicine Division of [facility] Medicine Secure chat preferred Pager: [phone] [1] Past Medical History: Diagnosis Date COPD [...] Provider: (Not yet assigned) Completed JUAN CARLOS RODRIGUEZ 05/01/25 194 Consult to Surgical Oncology Once Provider: (Not yet assigned) Completed IWLLY SALEH 05/01/25 1900 Once Provider: (Not yet [...] None Disposition Admit Admitting/Attending Physician: BRITNEY RAI [[id number]] Provider Care Team: JHOANA 14 [[id number]] Are [...] 05/01/2025 4:52 PM EDT Patient presents from [facility] where he was seen for RUQ [...] PANEL, PLASMA Routine 05/03/2025 4:00 AM EDT DIRECT BILIRUBIN, PLASMA Routine 025 1:42 PM EDT LACTATE, VENOUS Routine 05/02/2025 2:07 AM EDT PROTHROMBIN TIME(PT) / INR Routine 05/02 2:07 AM EDT CBC WITH AUTO DIFFERENTIAL Routine 05/02 2:07 AM EDT DIRECT BILIRUBIN, PLASMA STAT Add-on 025 2:07 AM EDT COMPREHENSIVE METABOLIC PANEL, PLASMA [...] - 99 mg/dL 05/04/2025 5:27 AM EDT [facility] BUN, Plasma 11 8 - 23 mg/dL 05/04/2025 5:27 AM EDT [facility] Creatinine, Plasma 0.81 0.70 - 1.20 mg/dL 05/04/2025 5:27 AM EDT [facility] BUN/Creatinine Ratio 14 05/04/2025 5:27 AM EDT [facility] Sodium, Plasma 138 136 - 145 mmol/L 05/04/2025 5:27 AM EDT [facility] Potassium, Plasma 3.3(L) 3.6 - 4.9 mmol/L 05/04/2025 5:27 AM EDT [facility] Chloride, Plasma 106 97 - 107 mmol/L 05/04/2025 5:27 AM EDT [facility] CO2, Plasma 20(L) 22 - 29 mmol/L 05/04/2025 5:27 AM EDT [facility] Anion Gap 12 6 - 16 mmol/L 05/04/2025 5:27 AM EDT [facility] Total Calcium, Plasma 8.5(L) 8.9 - 10.2 mg/dL 05/04/2025 5:27 AM EDT [facility] Total Protein 6.4 6.3 - 7.9 g/dL 05/04/2025 5:27 AM EDT [facility] Albumin, Plasma 2.6(L) 3.5 - 5.2 g/dL 05/04/2025 5:27 AM EDT [facility] AST, Plasma 140(H) 10 - 50 U/L 05/04/2025 5:27 AM EDT [facility] ALT, Plasma 21 10 - 50 U/L 05/04/2025 5:27 AM EDT [facility] Alkaline Phosphatase, Plasma 186(H) 40 - 115 U/L 05/04/2025 5:27 AM EDT [facility] Total Bilirubin, Plasma 2.1(H) 0.2 - 1.1 mg/dL 05/04/2025 5:27 AM EDT [facility] eGFRcr 96.6 mL/min/1.7 3m*2 05/04/2025 5:27 AM EDT [facility] Comment:Reported eGFRcr in m L/min/1.73m2 is based the CKD-EPI 2020 equation that does not use a race coefficient. Blood Venous blood specimen / Unknown Venipuncture / Unknown 05/04/2025 4:33 AM EDT 05/04/2025 4:44 AM EDT us Ang Will MD LAB BLOOD ORDERABLES Courtney vega Result [facility] [address] [place] [address] * (ABNORMAL) CBC W/O Differential (05/04/2025 4:33 AM EDT) WBC Count 4.71 3.70 - 10.30 10*3/uL LAB HEMATOLOGY METHOD 05/04/2025 5:18 AM EDT [facility] RBC Count 4.16(L) 4.60 - 6.10 10*6/uL LAB HEMATOLOGY METHOD 05/04/2025 5:18 AM EDT [facility] HGB 13.1(L) 13.7 - 17.5 g/dL LAB HEMATOLOGY METHOD 05/04/2025 5:18 AM EDT [facility] HCT 38.4(L) 40.0 - 51.0 % LAB HEMATOLOGY METHOD 05/04/2025 5:18 AM EDT [facility] Platelet Count 117(L) 155 - 369 10*3/uL LAB HEMATOLOGY METHOD 05/04/2025 5:18 AM EDT [facility] MCV 92 79 - 98 fL LAB HEMATOLOGY METHOD 05/04/2025 5:18 AM EDT [facility] MCH 31.5 26.0 - 32.0 pg LAB HEMATOLOGY METHOD 05/04/2025 5:18 AM EDT [facility] MCHC 34.1 30.7 - 35.5 g/dL LAB HEMATOLOGY METHOD 05/04/2025 5:18 AM EDT [facility] RDW 15.5(H) 11.5 - 14.5 % LAB HEMATOLOGY METHOD 05/04/2025 5:18 AM EDT [facility] MPV 11.5 8.8 - 12.5 fL LAB HEMATOLOGY METHOD 05/04/2025 5:18 AM EDT [facility] nRBC 0.0 <=0.0 per 100 WBCs LAB HEMATOLOGY METHOD 05/04/2025 5:18 AM EDT [facility] Blood Venous blood specimen / Unknown Venipuncture / Unknown 05/04/2025 4:33 AM EDT 05/04/2025 4:45 AM EDT Ang Will MD LAB BLOOD ORDERABLES Courtney l Result Performing Organization Address City/[facility]/ZIP Co de Phone Number [facility] [address] [place] [address] * (ABNORMAL) Creatine Kinase, Total, Plasma (05/04/2025 4:33 AM EDT) Creatine Kinase, Plasma 33(L) 49 - 320 U/L 05/04/2025 5:27 AM EDT [facility] Blood Venous blood specimen / Unknown Venipuncture / Unknown 05/04/2025 4:33 AM EDT 05/04/2025 4:44 AM EDT Ang Will MD LAB BLOOD ORDERABLES Courtney l Result Performing Organization Address [facility] [place] [address] * Phosphatidylethanol (PEth), Whole Blood, Quantitative (05/04/2025 4:33 AM EDT) Pathologist [facility] PEth 16:0/18:2 (PLPEth) <10 ng/mL 05/06/2025 12:20 PM EDT [facility] ([facility]) PEth 16:0/18:1 (POPEth) <10 ng/mL 05/06/2025 12:20 PM EDT [facility] ([facility]) EER Peth See Note 05/06/2025 12:20 PM EDT [facility] ([facility]) PEth Interpretation See Comment 05/06/2025 12:20 PM EDT [facility] ([facility]) Blood Venous blood specimen / Unknown Venipuncture / Unknown 05/04/2025 4:33 AM EDT 05/04/2025 4:42 AM EDT Narrative [facility] ([facility]) - 05/06/2025 12:20 PM EDT PEth 16:0/18:1 (POPEth) Less than 10 ng/mL............Not detected Less than 20 ng/mL............Abstinence or light alcohol consumption 20 - 200 ng/mL................Moderate alcohol consumption Greater than 200 ng/mL........Heavy alcohol consumption or chronic alcohol use (Reference: Hannah Correa and Trice Azevedo 2018 J. Forensic Sci) Reference ranges are not well established. Authorized individuals can access the TextbookTime.com Textbook Time Enhanced Report with an Textbook[employer] Textbook Time Connect account using the following link. Your local lab can assist you in obtaining the patient report if you don't have a Connect account. [email or web address] Phosphatidylethanol (PEth) is a group of phospholipids [...] developed and its performance characteristics determined by [facility]. It has not been cleared or approved by the U.S. Food and Drug Administration. This test was performed in a CLIA-certified laboratory and is intended for clinical purposes. Performed By: [facility] [address] [place] [address] Traffic Control Technician: David Marx MD, PhD CLIA Number: [id number] us Ang Will MD LAB REF LAB BLOOD AND FLU ID ORD Final Result [facility] [place]) [place] [address] * (ABNORMAL) Comprehensive metabolic panel (05/03/2025 4:00 AM EDT) Glucose, Plasma 96 74 - 99 mg/dL 05/03/2025 4:51 AM EDT [facility] BUN, Plasma 13 8 - 23 mg/dL 05/03/2025 4:51 AM EDT [facility] Creatinine, Plasma 0.86 0.70 - 1.20 mg/dL 05/03/2025 4:51 AM EDT [facility] BUN/Creatinine Ratio 15 05/03/2025 4:51 AM EDT [facility] Sodium, Plasma 137 136 - 145 mmol/L 05/03/2025 4:51 AM EDT [facility] Potassium, Plasma 3.6 3.6 - 4.9 mmol/L 05/03/2025 4:51 AM EDT [facility] Chloride, Plasma 103 97 - 107 mmol/L 05/03/2025 4:51 AM EDT [facility] CO2, Plasma 22 22 - 29 mmol/L 05/03/2025 4:51 AM EDT [facility] Anion Gap 12 6 - 16 mmol/L 05/03/2025 4:51 AM EDT [facility] Total Calcium, Plasma 9.0 8.9 - 10.2 mg/dL 05/03/2025 4:51 AM EDT [facility] Total Protein 7.1 6.3 - 7.9 g/dL 05/03/2025 4:51 AM EDT [facility] Albumin, Plasma 3.0(L) 3.5 - 5.2 g/dL 05/03/2025 4:51 AM EDT [facility] AST, Plasma 205(H) 10 - 50 U/L 05/03/2025 4:51 AM EDT [facility] Comment:Hemolyzed, result ma y be falsely increased. ALT, Plasma 23 10 - 50 U/L 05/03/2025 4:51 AM EDT [facility] Alkaline Phosphatase, Plasma 220(H) 40 - 115 U/L 05/03/2025 4:51 AM EDT [facility] Total Bilirubin, Plasma 1.7(H) 0.2 - 1.1 mg/dL 05/03/2025 4:51 AM EDT [facility] eGFRcr 94.9 mL/min/1.7 3m*2 05/03/2025 4:51 AM EDT [facility] Comment:Reported eGFRcr in m L/min/1.73m2 is based the CKD-EPI 2020 equation that does not use a race coefficient. Blood Venous blood specimen / Unknown Venipuncture / Unknown 05/03/2025 4:00 AM EDT 05/03/2025 4:21 AM EDT Ang Will MD LAB BLOOD ORDERABLES Courtney ferrari Result [facility] [address] [place] [address] * (ABNORMAL) CBC W/O Differential (05/03/2025 4:00 AM EDT) WBC Count 5.46 3.70 - 10.30 10*3/uL LAB HEMATOLOGY METHOD 05/03/2025 4:34 AM EDT [facility] RBC Count 4.39(L) 4.60 - 6.10 10*6/uL LAB HEMATOLOGY METHOD 05/03/2025 4:34 AM EDT [facility] HGB 14.0 13.7 - 17.5 g/dL LAB HEMATOLOGY METHOD 05/03/2025 4:34 AM EDT [facility] HCT 41.1 40.0 - 51.0 % LAB HEMATOLOGY METHOD 05/03/2025 4:34 AM EDT [facility] Platelet Count 122(L) 155 - 369 10*3/uL LAB HEMATOLOGY METHOD 05/03/2025 4:34 AM EDT [facility] MCV 94 79 - 98 fL LAB HEMATOLOGY METHOD 05/03/2025 4:34 AM EDT [facility] MCH 31.9 26.0 - 32.0 pg LAB HEMATOLOGY METHOD 05/03/2025 4:34 AM EDT [facility] MCHC 34.1 30.7 - 35.5 g/dL LAB HEMATOLOGY METHOD 05/03/2025 4:34 AM EDT [facility] RDW 15.3(H) 11.5 - 14.5 % LAB HEMATOLOGY METHOD 05/03/2025 4:34 AM EDT [facility] MPV 12.5 8.8 - 12.5 fL LAB HEMATOLOGY METHOD 05/03/2025 4:34 AM EDT [facility] nRBC 0.0 <=0.0 per 100 WBCs LAB HEMATOLOGY METHOD 05/03/2025 4:34 AM EDT [facility] Blood Venous blood specimen / Unknown Venipuncture / Unknown 05/03/2025 4:00 AM EDT 05/03/2025 4:24 AM EDT us Ang Will MD LAB BLOOD ORDERABLES Courtney l Result [facility] [address] [place] [address] * (ABNORMAL) Bilirubin, direct (05/02/2025 1:42 PM EDT) Direct Bilirubin, Plasma 0.7(H) <=0.3 mg/dL 05/02/2025 2:51 PM EDT [facility] Blood Venous blood specimen / Unknown Venipuncture / Unknown 05/02/2025 1:42 PM EDT 05/02/2025 2:10 PM EDT us Ang Will MD LAB BLOOD ORDERABLES Courtney l Result [facility] [address] [place] [address] * (ABNORMAL) Bilirubin, direct (05/02/2025 2:07 AM EDT) Direct Bilirubin, Plasma 1.1(H) <=0.3 mg/dL 05/02/2025 3:20 PM EDT [facility] Blood Venous blood specimen / Unknown Venipuncture / Unknown 05/02/2025 2:07 AM EDT 05/02/2025 2:20 AM EDT Ang Will MD LAB BLOOD ORDERABLES Courtney l Result Performing Organization Address [facility]/ZIP Co de Phone Number [facility] [address] [place] [address] * (ABNORMAL) Lactate, venous (05/02/2025 2:07 AM EDT) Lactate, Venous, Whole Blood 3.0(H) 0.5 - 2.2 mmol/L LAB HEMATOLOGY METHOD 05/02/2025 2:21 AM EDT [facility] Blood Venous blood specimen / Unknown Venipuncture / Unknown 05/02/2025 2:07 AM EDT 05/02/2025 2:19 AM EDT us Lexi Crane APRN LAB BLOOD ORDERABLES Final Re sult Performing Organization Address [facility]/ZIP Co de Phone Number [facility] [address] [place] [address] * (ABNORMAL) Prothrombin Time/INR (05/02/2025 2:07 AM EDT) Prothrombin Time 14.5(H) 12.0 - 14.3 sec LAB COAGULATION METHOD 05/02/2025 2:44 AM EDT [facility] INR 1.1 0.9 - 1.1 LAB COAGULATION METHOD 05/02/2025 2:44 AM EDT [facility] Blood Venous blood specimen / Unknown Venipuncture / Unknown 05/02/2025 2:07 AM EDT 05/02/2025 2:20 AM EDT Narrative [facility] - 05/02/2025 2:44 AM EDT [...] of recurrent DC INR 2.5 to 3.5 us Lexi Crane SECURITY COMPLIANCE SPECIALIST LAB BLOOD ORDERABLES Final Re sult [facility] [address] [place] [address] * (ABNORMAL) Comprehensive metabolic panel (05/02/2025 2:07 AM EDT) Glucose, Plasma 106(H) 74 - 99 mg/dL 05/02/2025 2:51 AM EDT [facility] BUN, Plasma 16 8 - 23 mg/dL 05/02/2025 2:51 AM EDT [facility] Creatinine, Plasma 0.84 0.70 - 1.20 mg/dL 05/02/2025 2:51 AM EDT [facility] BUN/Creatinine Ratio 19 05/02/2025 2:51 AM EDT [facility] Sodium, Plasma 136 136 - 145 mmol/L 05/02/2025 2:51 AM EDT [facility] Potassium, Plasma 3.8 3.6 - 4.9 mmol/L 05/02/2025 2:51 AM EDT [facility] Chloride, Plasma 101 97 - 107 mmol/L 05/02/2025 2:51 AM EDT [facility] CO2, Plasma 25 22 - 29 mmol/L 05/02/2025 2:51 AM EDT [facility] Anion Gap 10 6 - 16 mmol/L 05/02/2025 2:51 AM EDT [facility] Total Calcium, Plasma 9.1 8.9 - 10.2 mg/dL 05/02/2025 2:51 AM EDT [facility] Total Protein 6.5 6.3 - 7.9 g/dL 05/02/2025 2:51 AM EDT [facility] Albumin, Plasma 2.8(L) 3.5 - 5.2 g/dL 05/02/2025 2:51 AM EDT [facility] AST, Plasma 241(H) 10 - 50 U/L 05/02/2025 2:51 AM EDT [facility] ALT, Plasma 23 10 - 50 U/L 05/02/2025 2:51 AM EDT [facility] Alkaline Phosphatase, Plasma 200(H) 40 - 115 U/L 05/02/2025 2:51 AM EDT [facility] Total Bilirubin, Plasma 2.6(H) 0.2 - 1.1 mg/dL 05/02/2025 2:51 AM EDT [facility] eGFRcr 95.6 mL/min/1.7 3m*2 05/02/2025 2:51 AM EDT [facility] Comment:Reported eGFRcr in m L/min/1.73m2 is based the CKD-EPI 2020 equation that does not use a race coefficient. Blood Venous blood specimen / Unknown Venipuncture / Unknown 05/02/2025 2:07 AM EDT 05/02/2025 2:20 AM EDT us Lexi Crane APRN LAB BLOOD ORDERABLES Final Re sult [facility] [address] [place] [address] * (ABNORMAL) CBC and differential (05/02/2025 2:07 AM EDT) WBC Count 6.14 3.70 - 10.30 10*3/uL LAB HEMATOLOGY METHOD 05/02/2025 2:31 AM EDT [facility] RBC Count 4.15(L) 4.60 - 6.10 10*6/uL LAB HEMATOLOGY METHOD 05/02/2025 2:31 AM EDT [facility] HGB 13.3(L) 13.7 - 17.5 g/dL LAB HEMATOLOGY METHOD 05/02/2025 2:31 AM EDT [facility] HCT 39.3(L) 40.0 - 51.0 % LAB HEMATOLOGY METHOD 05/02/2025 2:31 AM EDT [facility] Platelet Count 126(L) 155 - 369 10*3/uL LAB HEMATOLOGY METHOD 05/02/2025 2:31 AM EDT [facility] MCV 95 79 - 98 fL LAB HEMATOLOGY METHOD 05/02/2025 2:31 AM EDT [facility] MCH 32.0 26.0 - 32.0 pg LAB HEMATOLOGY METHOD 05/02/2025 2:31 AM EDT [facility] MCHC 33.8 30.7 - 35.5 g/dL LAB HEMATOLOGY METHOD 05/02/2025 2:31 AM EDT [facility] RDW 15.1(H) 11.5 - 14.5 % LAB HEMATOLOGY METHOD 05/02/2025 2:31 AM EDT [facility] MPV 11.9 8.8 - 12.5 fL LAB HEMATOLOGY METHOD 05/02/2025 2:31 AM EDT [facility] nRBC 0.0 <=0.0 per 100 WBCs LAB HEMATOLOGY METHOD 05/02/2025 2:31 AM EDT [facility] Differential Type Automated LAB HEMATOLOGY METHOD 05/02/2025 2:31 AM EDT [facility] Neutrophils % 65 % LAB HEMATOLOGY METHOD 05/02/2025 2:31 AM EDT [facility] Lymphocytes % 20 % LAB HEMATOLOGY METHOD 05/02/2025 2:31 AM EDT [facility] Monocytes % 13 % LAB HEMATOLOGY METHOD 05/02/2025 2:31 AM EDT [facility] Eosinophils % 1 % LAB HEMATOLOGY METHOD 05/02/2025 2:31 AM EDT [facility] Basophils % 0 % LAB HEMATOLOGY METHOD 05/02/2025 2:31 AM EDT [facility] Immature Granulocytes % 1 % LAB HEMATOLOGY METHOD 05/02/2025 2:31 AM EDT [facility] Neutrophils Absolute 4.00 1.60 - 6.10 10*3/uL LAB HEMATOLOGY METHOD 05/02/2025 2:31 AM EDT [facility] Lymphocytes Absolute 1.22 1.20 - 3.90 10*3/uL LAB HEMATOLOGY METHOD 05/02/2025 2:31 AM EDT [facility] Monocytes Absolute 0.79 0.30 - 0.90 10*3/uL LAB HEMATOLOGY METHOD 05/02/2025 2:31 AM EDT [facility] Eosinophils Absolute 0.07 0.00 - 0.50 10*3/uL LAB HEMATOLOGY METHOD 05/02/2025 2:31 AM EDT [facility] Basophils Absolute 0.02 0.00 - 0.10 10*3/uL LAB HEMATOLOGY METHOD 05/02/2025 2:31 AM EDT [facility] Immature Granulocytes Absolute 0.04 0.00 - 0.06 10*3/uL LAB HEMATOLOGY METHOD 05/02/2025 2:31 AM EDT [facility] Blood Venous blood specimen / Unknown Venipuncture / Unknown 05/02/2025 2:07 AM EDT 05/02/2025 2:20 AM EDT Narrative [facility] - 05/02/2025 2:31 AM EDT Therapeutic decision making should be based on absolute values, rather than percentages. us Lexi Crane APRN LAB BLOOD ORDERABLES Final Re sult [facility] [address] [place] [address] * US Abdomen RUQ (05/01/2025 7:43 PM [...] on 05/01/2025 8:43 PM Willy Saleh MD [facility] US PROCEDURES Final Result * Type and [...] TEST ORDERABLES Final Result BLOOD BANK [address] [place] [address], [place] * (ABNORMAL) Lactic acid, venous (05/01/2025 5:54 PM EDT) Lactate, Venous, Whole Blood 2.5(H) 0.5 - 2.2 mmol/L LAB HEMATOLOGY METHOD 05/01/2025 6:12 PM EDT [facility] Blood Venous blood specimen / Unknown Venipuncture / Unknown 05/01/2025 5:54 PM EDT 05/01/2025 6:08 PM EDT Willy Saleh MD LAB BLOOD ORDERABLES Final Resu lt [facility] [address] [place] [address] * (ABNORMAL) Lipase (05/01/2025 5:54 PM EDT) Lipase, Plasma 11(L) 19 - 63 U/L 05/01/2025 6:22 PM EDT [facility] Blood Venous blood specimen / Unknown Venipuncture / Unknown 05/01/2025 5:54 PM EDT 05/01/2025 5:58 PM EDT Willy Saleh MD LAB BLOOD ORDERABLES Final Resu lt [facility] [address] [place] [address] * Magnesium (05/01/2025 5:54 PM EDT) Magnesium, Plasma 1.9 1.9 - 2.4 mg/dL 05/01/2025 6:22 PM EDT [facility] Blood Venous blood specimen / Unknown Venipuncture / Unknown 05/01/2025 5:54 PM EDT 05/01/2025 5:58 PM EDT Willy Saleh MD LAB BLOOD ORDERABLES Final Resu lt [facility] [address] [place] [address] * (ABNORMAL) CMP (05/01/2025 5:54 PM EDT) Glucose, Plasma 93 74 - 99 mg/dL 05/01/2025 6:22 PM EDT [facility] BUN, Plasma 16 8 - 23 mg/dL 05/01/2025 6:22 PM EDT [facility] Creatinine, Plasma 0.82 0.70 - 1.20 mg/dL 05/01/2025 6:22 PM EDT [facility] BUN/Creatinine Ratio 20 05/01/2025 6:22 PM EDT [facility] Sodium, Plasma 137 136 - 145 mmol/L 05/01/2025 6:22 PM EDT [facility] Potassium, Plasma 4.0 3.6 - 4.9 mmol/L 05/01/2025 6:22 PM EDT [facility] Chloride, Plasma 101 97 - 107 mmol/L 05/01/2025 6:22 PM EDT [facility] CO2, Plasma 22 22 - 29 mmol/L 05/01/2025 6:22 PM EDT [facility] Anion Gap 14 6 - 16 mmol/L 05/01/2025 6:22 PM EDT [facility] Total Calcium, Plasma 8.7(L) 8.9 - 10.2 mg/dL 05/01/2025 6:22 PM EDT [facility] Total Protein 6.6 6.3 - 7.9 g/dL 05/01/2025 6:22 PM EDT [facility] Albumin, Plasma 2.7(L) 3.5 - 5.2 g/dL 05/01/2025 6:22 PM EDT [facility] AST, Plasma 248(H) 10 - 50 U/L 05/01/2025 6:22 PM EDT [facility] ALT, Plasma 22 10 - 50 U/L 05/01/2025 6:22 PM EDT [facility] Alkaline Phosphatase, Plasma 208(H) 40 - 115 U/L 05/01/2025 6:22 PM EDT [facility] Total Bilirubin, Plasma 2.2(H) 0.2 - 1.1 mg/dL 05/01/2025 6:22 PM EDT [facility] eGFRcr 96.3 mL/min/1.7 3m*2 05/01/2025 6:22 PM EDT [facility] Comment:Reported eGFRcr in m L/min/1.73m2 is based the CKD-EPI 2020 equation that does not use a race coefficient. Blood Venous blood specimen / Unknown Venipuncture / Unknown 05/01/2025 5:54 PM EDT 05/01/2025 5:58 PM EDT Willy Saleh MD LAB BLOOD ORDERABLES Final Resu lt Performing Organization Address [facility] Co de Phone Number [facility] [address] [place] [address] * (ABNORMAL) PT-INR (05/01/2025 5:54 PM EDT) Prothrombin Time 14.4(H) 12.0 - 14.3 sec 05/01/2025 6:13 PM EDT [facility] INR 1.1 0.9 - 1.1 05/01/2025 6:13 PM EDT [facility] Blood Venous blood specimen / Unknown Venipuncture / Unknown 05/01/2025 5:54 PM EDT 05/01/2025 5:58 PM EDT Narrative [facility] - 05/01/2025 6:13 PM EDT [...] of recurrent DC INR 2.5 to 3.5 Willy Saleh MD LAB BLOOD ORDERABLES Final Resu lt Performing Organization Address City/[facility]/ZIP Co de Phone Number [facility] [address] [place] [address] * (ABNORMAL) CBC w/diff (05/01/2025 5:54 PM EDT) WBC Count 6.23 3.70 - 10.30 10*3/uL LAB HEMATOLOGY METHOD 05/01/2025 6:05 PM EDT [facility] RBC Count 4.08(L) 4.60 - 6.10 10*6/uL LAB HEMATOLOGY METHOD 05/01/2025 6:05 PM EDT [facility] HGB 13.2(L) 13.7 - 17.5 g/dL LAB HEMATOLOGY METHOD 05/01/2025 6:05 PM EDT [facility] HCT 37.8(L) 40.0 - 51.0 % LAB HEMATOLOGY METHOD 05/01/2025 6:05 PM EDT [facility] Platelet Count 118(L) 155 - 369 10*3/uL LAB HEMATOLOGY METHOD 05/01/2025 6:05 PM EDT [facility] MCV 93 79 - 98 fL LAB HEMATOLOGY METHOD 05/01/2025 6:05 PM EDT [facility] MCH 32.4(H) 26.0 - 32.0 pg LAB HEMATOLOGY METHOD 05/01/2025 6:05 PM EDT [facility] MCHC 34.9 30.7 - 35.5 g/dL LAB HEMATOLOGY METHOD 05/01/2025 6:05 PM EDT [facility] RDW 15.0(H) 11.5 - 14.5 % LAB HEMATOLOGY METHOD 05/01/2025 6:05 PM EDT [facility] MPV 11.1 8.8 - 12.5 fL LAB HEMATOLOGY METHOD 05/01/2025 6:05 PM EDT [facility] nRBC 0.0 <=0.0 per 100 WBCs LAB HEMATOLOGY METHOD 05/01/2025 6:05 PM EDT [facility] Differential Type Automated LAB HEMATOLOGY METHOD 05/01/2025 6:05 PM EDT [facility] Neutrophils % 59 % LAB HEMATOLOGY METHOD 05/01/2025 6:05 PM EDT [facility] Lymphocytes % 21 % LAB HEMATOLOGY METHOD 05/01/2025 6:05 PM EDT [facility] Monocytes % 16 % LAB HEMATOLOGY METHOD 05/01/2025 6:05 PM EDT [facility] Eosinophils % 2 % LAB HEMATOLOGY METHOD 05/01/2025 6:05 PM EDT [facility] Basophils % 1 % LAB HEMATOLOGY METHOD 05/01/2025 6:05 PM EDT [facility] Immature Granulocytes % 1 % LAB HEMATOLOGY METHOD 05/01/2025 6:05 PM EDT [facility] Neutrophils Absolute 3.70 1.60 - 6.10 10*3/uL LAB HEMATOLOGY METHOD 05/01/2025 6:05 PM EDT [facility] Lymphocytes Absolute 1.33 1.20 - 3.90 10*3/uL LAB HEMATOLOGY METHOD 05/01/2025 6:05 PM EDT [facility] Monocytes Absolute 0.98(H) 0.30 - 0.90 10*3/uL LAB HEMATOLOGY METHOD 05/01/2025 6:05 PM EDT [facility] Eosinophils Absolute 0.13 0.00 - 0.50 10*3/uL LAB HEMATOLOGY METHOD 05/01/2025 6:05 PM EDT [facility] Basophils Absolute 0.04 0.00 - 0.10 10*3/uL LAB HEMATOLOGY METHOD 05/01/2025 6:05 PM EDT [facility] Immature Granulocytes Absolute 0.05 0.00 - 0.06 10*3/uL LAB HEMATOLOGY METHOD 05/01/2025 6:05 PM EDT [facility] Blood Venous blood specimen / Unknown Venipuncture / Unknown 05/01/2025 5:54 PM EDT 05/01/2025 5:58 PM EDT Narrative [facility] - 05/01/2025 6:05 PM EDT Therapeutic decision making should be based on absolute values, rather than percentages. us Willy Saleh MD LAB BLOOD ORDERABLES Final Resu lt [facility] [address] [place] [address] * EKG now - STAT (adult) (05/01/2025 5:43 PM EDT) EKG DIAGNOSIS CLASS Abnormal MUSE ECG Ventricular Rate 70 BPM MUSE ECG Atrial Rate 70 BPM MUSE ECG ME Interval 138 ms MUSE ECG QRSD Interval 86 ms MUSE ECG QT Interval 414 ms MUSE ECG QTC Interval 447 ms MUSE ECG P Bulger 50 degrees MUSE ECG R Bulger -53 degrees MUSE ECG T Wave Bulger 43 degrees MUSE ECG Diagnosis Normal sinus rhythm with sinus arrhythmia MUSE ECG Diagnosis Left axis deviation MUSE ECG Diagnosis Anterior infarct , age undetermined MUSE ECG Diagnosis T wave abnormality, consider lateral ischemia MUSE ECG Diagnosis MUSE ECG Diagnosis MUSE ECG Diagnosis Confirmed by Jordyn Pompa ([id number]) on 05/02/2025 3:24:55 PM MUSE ECG 05/01/2025 [...] 05/04/2025 12:29 PM EDT 4.01 millicuries Tiotropium [place] Monohydrate (Spiriva Respimat) 2.5 MCG/ACT inhaler 2 [...] Poe RN)1230 (New Bag - Provider: Esme oPe RN)1953 (New Bag - Provider: Karen Avila) 0120 (New Bag - Provider: Karen Avila)0828 (New Bag - Provider: Esme Poe, [...] 1229 (Given - Provider: Eliseo Cueva) Tiotropium [place] Monohydrate (Spiriva Respimat) 2.5 MCG/ACT inhaler 2 [...] care Linked Groups Order Group 1: Tiotropium [place] Monohydrate (Spiriva Respimat) 2.5 MCG/ACT inhaler 2 [...] Indicated Resolved Time C. difficile Rule-Out 05/04/2025 05/04/20252024 9:53 PM EDT Assessment Noted Time A fall risk assessment has been complete d for the patient 03/14/2025 9:07 AM EDT A Body Mass Index follow-up plan has been documented for the patient 05/05/2025 1:57 PM EDT documented as of this encounter Care Teams Television News Video Editor Relationship Specialty Start Date End Date Pcp, No [address] [place] [address] PCP - General Family Medicine 03/20/25 Isabella Saucedo APRN [address] [facility] [address] [place] [address] Referring Physician 02/26/25 Jeannie Mcmillan RN [facility] [address] [place] [address] Registered Nurse Transplant Surgery 03/08/25 [place] [id number] Registered Nurse Transplant Surgery 03/08/25 Rodney Gonzáles MD [address] [facility] [address] [place] [address] Medical Oncologist 04/10/25 documented as of this encounter
--- OUTSIDE RECORDS SUMMARY | 2025-05-22 11:01 | XMS_ITS | Clinical Summary ---
Author Organization [facility] Address [address] [facility] [address] [place] [id number] Phone Care Team Providers Care Buzzle Buffer Name Role Phone Leander RIOS, [facility] Conditions or Problems Problem Name Problem Code Onset Date Status Entry Date Provider Comment Standard Description Annotate FOLLOW-UP EXAMINATION FOLLOWING OTHER SURGERY Z09 (ICD-10-CM) 10/20 Active 10/20 Emily Kern MA Encounter for follow-up examination after completed treatment for conditions other than malignant neoplasm BACK PAIN, LUMBAR, WITH RADICULOPATHY [id number] (SNOMED CT) Active Emily Kern MA Lumbar radiculopathy Medications Medication Instructions Start Date Stop Date Generic Name [facility] Provider MELOXICAM 15 MG TABS 1 daily Non-[place] 8 MELOXICAM [id number] Emily Kern MA METOPROLOL TARTRATE 25 MG TABS 1 daily Non-[place] 8 METOPROLOL TARTRATE [id number] Emily Kern MA PRAVASTATIN SODIUM 40 MG TABS 1 daily Non-[place] 8 PRAVASTATIN SODIUM [id number] Emily Wilsonriccardo WILL PLAVIX 75 MG TABS 1 daily Non-[place] 8 CLOPIDOGREL BISULFATE [id number] Emily Wilsonriccardo WILL LISINOPRIL 5 MG TABS 1 daily Non-[place] 8 LISINOPRIL [id number] Emily Wilsonriccardo WILL ASPIRIN ADULT LOW STRENGTH 81 MG TBEC 1 daily Non-[place] 8 ASPIRIN [id number] Emilynathaniel Kern MA ALPRAZOLAM 1 MG TABS 1 qhs Non-[place] 8 ALPRAZOLAM [id number] Emily Kern MA HYDROCODONE-BRENNAN TAMINOPHEN 10-650 MG ORAL TABLET 1 qid Non-[place] 8 HYDROCODONE-AC ETAMINOPHEN [id number] Emily Kern MA GABAPENTIN 600 MG TABS 2 q morning & 3 q evening [facility] 8 GABAPENTIN [id number] Emily Kern MA RANEXA 500 MG ORAL TABLET EXTENDED RELEASE 12 HOUR 1 bid [facility] 8 RANOLAZINE [phone] Emily Kern MA Medications Administered No information [...]
--- OUTSIDE RECORDS SUMMARY | 2025-05-22 11:01 | XMS_ITS | Encounter Summary ---
Author Organization Healthcare Address [address] [place] [address] Care Team Providers Care Store Administrative Assistant Name Role Phone Isabella Saucedo Phong BEAD TRIMMER Unavailable [phone] Jeannie Mcmillan RN Unavailable [phone] Ebony Shoemaker Unavailable [phone] Pcp, No Primary Care Provider Unavailabl e Encounter Details Date Type Department Care Team (Late st Contact Info) Description 03/20/2025 Orders Only External Location 800 [place] [address] Provider, External Social History Tobacco Use Types [...] documented as of this encounter Care Teams Store Administrative Assistant Relationship Specialty Start Date End Date Pcp, No [address] [place] [address] PCP - General Family Medicine 03/20/25 Isabella Saucedo APRN 1210 [facility] [address] [place] [address] Referring Physician 02/26/25 Jeannie Mcmillan, RN [facility]ATION [address] [place] [address] Registered Nurse Transplant Surgery 03/08/25 [place] [address] Registered Nurse Transplant Surgery 03/08/25 documented as of this encounter
--- OUTSIDE RECORDS SUMMARY | 2025-05-22 11:01 | XMS_ITS | Encounter Summary ---
Author [place] [address] Care Team Providers Care Crop Duster Helper Name Role Phone Jan Sin MD Unavailable [phone] Macario Pryor MD Unavailable Unavailabl e Cr Resendez MD Primary Care Provider [phone] Reason for Visit * Reason Comments Medication Refill Encounter Details Date Type Department Care Team (Late st Contact Info) Description 04/26/2025 Refill SEP Luis [facility] [place] [address] [address] [address] Cr Resendez MD [address] [place] [address] [address] [place] [phone] Medication Refill Social History Tobacco Use Types [...] and sent to requesting pharmacy. Routed to [facility] if an appointment is needed. clopidogreL [...] Discontinue Reason Start Date End Da te ajibshmunyr-tomwqitku-xkh anter (TRELEGY ELLIPTA) 100-62.5-25 mcg Inhl Disk [...] documented as of this encounter Care Teams Crop Duster Helper Relationship Specialty Start Date End Date Macario Pryor MD [address] [place] [address] [place] [address] PCP - Hematology/Oncology Internal Medicine-Medical Oncology 11/12/15 Cr Resendez MD [address] [place] [address] [place] [address] PCP - General Family Medicine 11/24/21 Jan Sin MD [address] [place] [address] [place] [address] Internal Medicine-Cardiovascul ar Disease 08/28/14 documented as of this encounter
--- OUTSIDE RECORDS SUMMARY | 2025-05-22 11:01 | XMS_ITS | Encounter Summary ---
Author Organization Healthcare Address [address] [place] [address] Care Team Providers Care Plate Drying Machine Tender Name Role Phone Isabella Saucedo Phong TILE EDGER Unavailable [phone] Jeannie Mcmillan RN Unavailable [phone] Ebony Shoemaker Unavailable [phone] Pcp, No Primary Care Provider Unavailabl e Encounter Details Date Type Department Care Team (Late st Contact Info) Description 03/20/2025 Orders Only External Location [address] [place] [address] Provider, External Social History Tobacco Use Types [...] documented as of this encounter Care Teams Plate Drying Machine Tender Relationship Specialty Start Date End Date Pcp, No [address] [place] [address] PCP - General Family Medicine 03/20/25 Isabella Saucedo APRN [address] [place] [address] [place] [address] Referring Physician 02/26/25 Jeannie Mcmillan, RN [facility] [address] [place] [address] Registered Nurse Transplant Surgery 03/08/25 Ebony Shoemaker [place] [id number] Registered Nurse Transplant Surgery 03/08/25 documented as of this encounter
--- OUTSIDE RECORDS SUMMARY | 2025-05-22 11:01 | XMS_ITS | Encounter Summary ---
Author Organization Healthcare Address [address] [place] [address] Care Team Providers Care Cherry Dipper Name Role Phone Isabella Saucedo Phong BOARDING ROOM FIXER Unavailable [phone] Jeannie Mcmillan RN Unavailable [phone] Ebony Shoemaker Unavailable [phone] Pcp, No Primary Care Provider Unavailabl e Encounter Details Date Type Department Care Team (Late st Contact Info) Description 03/20/2025 Orders Only External Location [address] [place] [address] Provider, External Social History Tobacco Use Types [...] documented as of this encounter Care Teams Cherry Dipper Relationship Specialty Start Date End Date Pcp, No [address] [place] [address] PCP - General Family Medicine 03/20/25 Isabella Saucedo, BOARDING ROOM FIXER [address] [place] [address] Referring Physician 02/26/25 Jeannie Mcmillan, RN [facility] [address] [place] [address] Registered Nurse Transplant Surgery 03/08/25 Ebony Shoemaker [place] [phone] Registered Nurse Transplant Surgery 03/08/25 documented as of this encounter
--- OUTSIDE RECORDS SUMMARY | 2025-05-22 11:02 | XMS_ITS | Encounter Summary ---
Author Organization [place] [address] Care Team Providers Care General Activities Therapist Name Role Phone Jan Sin MD Unavailable [phone] Macario Pryor MD Unavailable Unavailabl e Cr Resendez MD Primary Care Provider [phone] Encounter Details Date Type Department Care Team (Latest Contact Info) Description 04/24/2025 Results Follow-Up SEP Luis [address] [place] [address] Cr Resendez MD [address] [place] [address] [place] [address] HEMOGLOBIN A1C, COMPREHENSIVE METABOLIC PANEL, CBC [...] [facility] little bit [facility]. A1c was slightly elevated in [...] documented as of this encounter Care Teams General Activities Therapist Relationship Specialty Start Date End Date Macario Pryor MD [address] [place] [address] [place] [address] PCP - Hematology/Oncology Internal Medicine-Medical Oncology 11/12/15 Cr Resendez MD [address] [place] [address] [place] [address] PCP - General Family Medicine 11/24/21 Jan Sin MD [address] [place] [address] [place] [address] Internal Medicine-Cardiovascul ar Disease 08/28/14 documented as of this encounter
--- OUTSIDE RECORDS SUMMARY | 2025-05-22 11:02 | XMS_ITS | Clinical Summary ---
Author Organization [facility] Address [facility] [place] [address] Care Team Providers Care Automation Developer Name Role Phone Cr Resendez MD Primary Care Provider [phone] Source Comments This information has been disclosed [...] therelease of HIV test results or diagnoses. [id number] Allergies Active Allergy Reactions Criticality Noted [...] PM EDT Active naloxone (NARCAN) 4 mg/actuation [place] Apply 1 spray in one nostril if [...] by Redo CABG 6 mo later at [facility] with grafts 2009 Social History Tobacco Use Types Packs/Day Years Used Date Smoking Tobacco: Some Days Cigarettes Passive Smoke Exposure: Current Tobacco Cessation:Ready to Q uit: Not Asked; Counseling Given: Not Answered Utilities Answer Date Recorded In the past 12 months has th e [employer], gas, oil, or water [employer] threatened to shut off services in your [...] any time in the past 12 m [facility], were you homeless or living in a group home (including now)? Patient declined 12/07/2024 Sex and [...] 05/08/2019, 07/18/2012 Medical Devices Implanted Type Area Manager Drive Device Identifier Shelf Expiration Date Model / Serial / Lot Cage Spnl 6mm 8d Sm Eit Crv Intrbd Fs Strl Lf - [id number] Implanted:Qty: 1 on 12/11/2024 by Nayan Mayo MD at [facility] Main Cage N/A: Spine Cervical DEPUY SPINE 02/26/2026 [id number] / / Graft Bn Bn Fbr 1cc Algrf Frzdr Pliafx [facility] - [id number] Implanted:Qty: 1 on 12/11/2024 by Nayan Mayo MD at [facility] Main Graft N/A: Spine Cervical LIFE NET 02/21/2028 [id number] / [id number] / Icd ICD [employer] EP [employer] D233 / / Description:St Chava RA: LPA1 200M RV: [id number] NOT MR CONDITIONAL OF 12/07/2024 - 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 SCS Plate Bone Lolita Titanium 14 Mm Prebent L12 Mm X W16 Mm X H2.5 Mm Spine Cervical Anterior 1 Level Nonsterile - [id number] Implanted:Qty: 1 on 12/11/2024 by Nayan Mayo MD at [facility] Main Plate N/A: Spine Cervical DEPUY SPINE [id number] 12 / / Screw Bone Lolita Titanium L16 Mm Od4 Mm Spine Cervical Anterior Variable Self Drill Nonsterile - [id number] Implanted:Qty: 4 on 12/11/2024 by Nayan Mayo MD at [facility] Main Screw N/A: Spine Cervical DEPUY SPINE -0 16 / / Procedures Procedure Name Priority Date/Time Associated Diagnosis Comments RENAL FUNCTION PANEL W/EGFR Routine 12/14/2024 7:00 AM EDT from Last 3 Months or Most Recently Relevant to Health Maintenance Results * (ABNORMAL) Renal Function Panel w/EGFR (12/14/2024 7:00 AM EDT) Sodium 136 133 - 146 mmol/L 12/14/2024 7:50 AM EDT [facility] Potassium 3.9 3.5 - 5.3 mmol/L 12/14/2024 7:50 AM EDT [facility] Chloride 102 98 - 110 mmol/L 12/14/2024 7:50 AM EDT [facility] CO2 27 21 - 33 mmol/L 12/14/2024 7:50 AM EDT [facility] Anion Gap 7 3 - 16 mmol/L 12/14/2024 7:50 AM EDT [facility] BUN 19 7 - 25 mg/dL 12/14/2024 7:50 AM EDT [facility] Creatinine 0.66 0.60 - 1.30 mg/dL 12/14/2024 7:50 AM EDT [facility] Glucose 126(H) 70 - 100 mg/dL 12/14/2024 7:50 AM EDT [facility] Calcium 8.3(L) 8.6 - 10.3 mg/dL 12/14/2024 7:50 AM EDT [facility] Phosphorus 2.7 2.1 - 4.5 mg/dL 12/14/2024 7:50 AM EDT [facility] Albumin 2.7(L) 3.5 - 5.7 g/dL 12/14/2024 7:50 AM EDT [facility] Osmolality, Calculated 286 278 - 305 mOsm/kg 12/14/2024 7:50 AM EDT [facility] EGFR >90 12/14/2024 7:50 AM EDT [facility] Comment: As of 2021, the estimated [...] BLOOD ORDERABLES nal Result Performing Organization Address City/State/[facility] Co de Phone Number [facility] [address] from Last 3 Months or Most Recently Relevant to Health Maintenance Insurance MEDICARE A AND B MEDICAID [place] MEDICAID D[place] Advance Directives For more information, please contact: [phone] * Full Code (Latest Code Status on File) Date Activated Date Inactivated Comments 12/07/2024 12:02 AM 12/14/2024 8:22 PM Care Teams Automation Developer Relationship Specialty Start Date End Date Cr Resendez MD [address] [place] [address] [place] [address] PCP - General Family Medicine 12/07/24
--- OUTSIDE RECORDS SUMMARY | 2025-05-22 11:02 | XMS_ITS | Clinical Summary ---
Author Organization [facility] Address [address] [place] [address] Phone Care Team Providers Care Optical Glass Wet Inspector Name Role Phone Jan Sin MD Unavailable [phone] Macario Pryor MD Unavailable Cr Rodriguez MD Primary Care Provider [phone] Allergies Active Allergy Reactions Criticality Noted Date [...] 25 Active nalOXone (NARCAN) 4 mg/actuation Nasl [place], Non-Aerosol 0.1 mL by Nasal route daily as needed for Opioid Reversal. 2 Each 12/22/19 25 Active bisoprolol (ZEBETA) 5 mg Oral [...] 4 gram Oral Powder in Packet 03/21/20 25 Active fluticasone-umecl idin-vilanter (TRELEGY ELLIPTA) 100-62.5-25 mcg Inhl Disk with DeviceIndications :Chronic bronchitis, unspecified chronic bronchitis type (HCC) Inhale 1 Puff into the lungs daily at 0900. 180 Each 1 04/26/20 25 Active clopidogreL (PLAVIX) 75 mg Oral Tablet Take 1 Tablet by mouth once daily 30 Tablet 04/26/20 25 Active clotrimazole (LOTRIMIN) 1 % Top CreamIndications: Candidiasis of penis Apply topically 2 times daily. 30 g 05/18/20 25 Active tamsulosin (FLOMAX) 0.4 mg Oral [...] 1 Each 5 09/07/19 25 2024 Discontinued clotrimazole (LOTRIMIN) 1 % Top CreamIndications: Candidiasis of penis Apply topically 2 times daily. 24 g 12/28/19 25 2024 Discontinued atorvastatin (LIPITOR) 20 mg [...] the original. hillary stevens contracts signed 04/19/12 [facility]05/01/15 #[id number] [facility] 12/12/15 ,02/28/16 [id number],04/09/16 [id number], 11/27/16 [facility] 06/08/14,12/12/15, 10/02/16 Problem Noted Date Diagnosed Date Hepatocellular carcinoma 04/23/2025 Assessment & Plan (04/23/2025 9:20 AM EDT): Under treatment with GI and oncology at [facility]. On once monthly chemotherapy at this [...] (12/01/2022): Added automatically from request for surgery [id number] Mixed simple and mucopurulent chronic bronchitis 11/26/2022 Assessment & Plan (04/23/2025 9:20 AM EDT): Stable on Trelegy continue current regiment Assessment & Plan (12/21/2024 9:37 AM EDT): Orders: BASIC METABOLIC PANEL; Future Assessment & Plan (09/07/2024 10:49 AM EST): Orders: qdnxynvyefd-lngqiconm-rbeymdlk (TRELEGY ELLIPTA) 100-62.5-25 mcg Inhl Disk with [...] by Redo CABG 6 mo later at [facility] with // patent grafts 2010 Unspecified essential hypertension Assessment [...] 07/04/2015 S/P coronary angiogram 08/31/201407/04 Overview (08/31/2014): [facility] 10/15/2009 four out of four grafts, [...] Encounters Date Type Department Care Team Description 05/17/2025 Refill SEP Luis [address] [place] [address] Lorri Crespo APRN Medication Refill 05/05/2025 Nurse Triage [facility] Nurse Now [address] [place] [address] Alicia Jones RN 04/26/2025 Refill SEP [address] [place] [address] Cr Resendez MD Medication Refill 04/24/2025 Results Follow-Up ABDULLAHI [place] [address] Cr Resendez MD HEMOGLOBIN A1C, COMPREHENSIVE METABOLIC PANEL, CBC WITH DIFF, Additional followed-up results: 3 04/23/2025 9:30 AM EDT Clinical Support ABDULLAHI [address] [place] [address] Elizabeth Reynoso, RN Encounter for support and coordination of transition of care (Primary Dx) 04/23/2025 9:00 AM EDT Office Visit [address] [place], [place] [address] Cr Resendez MD Encounter for Medicare annual wellness exam (Primary Dx); Hepatocellular carcinoma (HCC); Chronic systolic congestive heart failure (HCC); Mixed simple and mucopurulent chronic bronchitis (HCC); Unspecified essential hypertension; Screening for prostate cancer; Bilateral impacted cerumen 04/19/2025 Patient Outreach [facility] [address] [address] Cr Resendez MD Central Patient Navigator Outreach (AWV Questionnaire/) 03/26/2025 Refill SEP [address] [place] [address] Cr Resendez MD Medication Refill 02/22/[address] [place] [address] Cr Resendez MD Paperwork/forms 02/20/2025 Refill SEP [address] [place] [address] Cr Resendez MD Medication Refill from Last [...] PLACEMENT 01/04/2024 [facility] NECK SURGERY 12/06/2024 [facility] Medical History Medical History Date Comments COPD (chronic obstructive pu lmonary disease) ([facility]) Shortness of breath Blood circulation, collateral fe et and hands get cold since cabg CAD (coronary artery disease) Hypertension AL (myocardial infarction) ([facility]) 4 times Arthritis Headache(784.0) Neuromuscular disorder ([facility]) lennox k and left leg Other disorders [...] series) 2018 COVID-19 Vaccine ( - season) 2025 Influenza Vaccine (#1) 2025 , [...] Blood Pressure 124/50(2024 8:47 AM EDT) No Jnu Cruz MD Eat better, exercise, reach an ideal body weight General No Solo Lowry RMA Stay Tobacco Free Lifestyle No Solo [place]ry RMA LDL Direct < 100 Result Component No Abdiaziz Cheng MD Medical Devices Implanted Type Area Pearl Diver Device Identifier Shelf Expiration Date Model / Serial / Lot [employer] Vigilant ICD D233 / / [employer] Lead Lead [id number] / / St. [...] 98 <200 mg/dL 04/23/2025 4:37 PM EDT [employer] Comment: < 200 Desirable 200 - 239 Borderline High >= 240 High Triglyceride 38 <150 mg/dL 04/23/2025 4:37 PM EDT [employer] Comment: < 150 Normal 150 - 199 Borderline High 200 - 499 High >= 500 Very High HDL 40 >=40 mg/dL 04/23/2025 4:37 PM EDT [employer] Comment: > 60 Optimal 40 - 60 Acceptable < 40 Low LDL Calculated 47 <100 mg/dL 04/23/2025 4:37 PM EDT [employer] Comment: < 100 Optimal 100 - 129 Near or above optimal 130 - 159 Borderline High 160 - 189 High >= 190 Very High The National Institutes of Health (NIH) equation is used for all lipid panels that report calculated LDL (LDL-C). Non-HDL-C Calculated 58 <=129 mg/dL 04/23/2025 4:37 PM EDT [employer] Comment: <130 Desirable 130-159 Above Desirable 160-189 Borderline High 190-219 High >= 220 Very High Fasting Specimen? Yes None 025 4:37 PM EDT [employer] Blood VENOUS BLOOD / Unknown Venipuncture / Unknown 04/23/2025 9:47 AM EDT 04/23/2025 9:47 AM EDT us Cr Resendez MD CHEMISTRY ORDERABLES Final Res ult [facility] , [place] [address] * TSH REFLEX TO FT4 (04/23/2025 9:47 AM EDT) TSH Reflex 0.889 0.270 - 4.200 mcIU/mL 04/23/2025 4:37 PM EDT [facility] [employer] [facility] Blood VENOUS BLOOD / Unknown Venipuncture / Unknown 04/23/2025 9:47 AM EDT 04/23/2025 9:47 AM EDT Narrative [facility] [employer] [facility] - 04/23/2025 4:37 PM EDT Ingestion of fernanda doses of biotin (>5 mg/day) taken within 8 hours of drawing blood sample can interfere with this immunoassay test. us Cr Resendez MD CHEMISTRY ORDERABLES Final Res ult Performing Organization Address [facility] de Phone Number [facility] , [place] [address] * PROSTATE SPECIFIC ANTIGEN (SCREENING) (04/23/2025 9:47 AM EDT) Total Psa 0.08 <=4.00 ng/mL 04/23/2025 3:49 PM EDT [facility] [employer] [facility] Blood VENOUS BLOOD / Unknown Venipuncture / Unknown 04/23/2025 9:47 AM EDT 04/23/2025 9:47 AM EDT Narrative [employer] [facility] - 04/23/2025 3:49 PM EDT The [...] ult [facility] [address] [facility] [address], [place] [address] * (ABNORMAL) CBC WITH DIFF (04/23/2025 9:47 [...] 4:08 PM EDT [facility] [place] # 1.2(H) 0.3 - 0.9 x10(3)/mcL 04/23/2025 4:08 PM EDT [facility] Eos # Manual 0.0 0.0 - 0.5 x10(3)/mcL 04/23/2025 4:08 PM EDT [facility] Baso # Manual 0.1 0.0 - 0.1 x10(3)/mcL 04/23/2025 4:08 PM EDT [facility] Polychrom Slight 04/23/2025 4:08 PM EDT [facility] [place] Cell Moderate 04/23/2025 4:08 PM EDT [facility] Elliptocyte Occasional 04/23/2025 4:08 PM EDT [facility] Target Cell Occasional 04/23/2025 4:08 PM EDT [facility] Blood VENOUS BLOOD / Unknown Venipuncture / Unknown 04/23/2025 9:47 AM EDT 04/23/2025 9:47 AM EDT us Cr Resendez MD HEMATOLOGY ORDERABLES Final Re sult [facility] [address] [facility] , [place] [address] * (ABNORMAL) HEMOGLOBIN A1C (04/23/2025 [...] ORDERABLES Final Res ult [facility] [address] [facility] , [facility] [place] [address] * (ABNORMAL) COMPREHENSIVE METABOLIC PANEL [...] 04/23/2025 4:37 PM EDT [facility] Bili Total 1.2 0.2 - 1.4 mg/dL 04/23/2025 4:37 PM EDT [facility] ALT 26 <=41 U/L 04/23/2025 4:37 PM EDT [facility] AST 74(H) <=40 U/L 04/23/2025 4:37 PM EDT [facility] Alk Phos 142(H) 40 - 129 U/L 04/23/2025 4:37 PM EDT [facility] eGFR (CKD-EPIcr 2020) 96 >=60 mL/min/1.7 3 m2 04/23/2025 4:37 PM EDT [facility] Comment:Estimated GFR was ca lculated using the CKD-EPIcr (2020) equation refit without race. The equation is recommended by the National Kidney Foundation - [place] Society of Nephrology Task Force. Blood VENOUS BLOOD / Unknown Venipuncture / Unknown 04/23/2025 9:47 AM EDT 04/23/2025 9:47 AM EDT us Cr Resendez MD CHEMISTRY ORDERABLES Final Res ult [facility] [address] [facility] , [place] [address] * US AAA SCREENING EXAM MEDICARE (12/16/2023 [...] CLINICAL HISTORY: Z13.6-Encounter for screening for cardiovascular qdzeqgupi-SFQ-53-CM. COMPARISON: CT abdomen pelvis from 09/07/2023 PROCEDURE COMMENTS: Routine sonographic evaluation of the abdominal aorta with residential sales representative images sent to PACS along with plate painter apprentice notes. FINDINGS: The abdominal aorta is normal in caliber. Maximum transverse diameter is 2.4 cm. Atherosclerotic change in the aorta and iliac vessels noted unchanged from the recent CT Procedure Note Cr Ramachandran MD - 12/16/2023 US AAA SCREENING EXAM MEDICARE, 12/16/2023 9:55 AM CLINICAL HISTORY: Z13.6-Encounter for screening for cardiovascular qxwrcxjmv-BCE-53-CM. COMPARISON: CT abdomen pelvis from 09/07/2023 PROCEDURE COMMENTS: Routine sonographic evaluation of the abdominal aortawith residential sales representative images sent to PACS along with plate painter apprentice notes. FINDINGS: The abdominal aorta is normal [...] of the ordering clinician. Cr Resendez MD [facility] ORDERABLES Final Result * [...] Pena MD Performing Provider Raymond Harris RN Farm Agent Gurvinder Garner MD Anesthesiologist Mary Jo Romero [...] e Non-Reacti ve 11/24/2021 3:20 PM EDT [facility] [employer] [facility] Blood VENOUS BLOOD / Unknown Venipuncture / Unknown 11/24/2021 10:38 AM EDT 11/24/2021 10:43 AM EDT us Cr Resendez MD HEMATOLOGY ORDERABLES Final Re sult [facility] [employer] [address] [facility], [place] [address] from Last 3 Months or Most Recently Relevant to Health Maintenance Insurance [place] [address] MED[place] PART [place] PART A AND B [place]ICARE [place] PART A [place] B [place] Care Teams Optical Glass Wet Inspector Relationship Specialty Start Date End Date Macario Pryor MD [address] [place] [address] [place] [address] PCP - Hematology/Oncology Internal Medicine-Medical Oncology 11/12/15 Cr Resendez MD [address] [place] [address] [place] [address] PCP - General Family Medicine 11/24/21 Jan Sin MD [address] [place] [address] [place] [address] Internal Medicine-Cardiovascul ar Disease 08/28/14
--- OUTSIDE RECORDS SUMMARY | 2025-05-22 11:02 | XMS_ITS | Encounter Summary ---
Author Organization [place] [address] Care Team Providers Care Instrument Mechanics Supervisor Name Role Phone Jan Sin MD Unavailable [phone] Macario Pryor MD Unavailable Cr Rodriguez MD Primary Care Provider [phone] Reason for Visit * Reason Onset Date Comments Bloated 05/05/2025 Encounter Details Date Type Department Care Team (Late st Contact Info) Description 05/05/2025 Nurse Triage SEP Nurse Now [address] [place] [address] Alicia Jones, RN Social History Tobacco [...] Call -Chief Complaint: pt just returned from [facility] for oncology. He was discharged today looking [...] getting worse Protocols used: Abdomen Bloating and Qfushvpd-N-VL documented in this encounter Plan of Treatment [...] documented as of this encounter Care Teams Instrument Mechanics Supervisor Relationship Specialty Start Date End Date Macario Pryor MD [address] [place] [address] [place] [address] PCP - Hematology/Oncology Internal Medicine-Medical Oncology 11/12/15 Cr Resendez MD [address] [place] [address] [place] [address] PCP - General Family Medicine 11/24/21 Jan Sin MD [address] [place] [address] [place] [address] Internal Medicine-Cardiovascul ar Disease 08/28/14 documented as of this encounter
--- OUTSIDE RECORDS SUMMARY | 2025-05-22 11:02 | XMS_ITS | Encounter Summary ---
Author Organization Healthcare Address [address] [place] [address] Care Team Providers Care Auditor Internal Name Role Phone Isabella Saucedo Phong MANAGER SUBWAY Unavailable [phone] Jeannie Mcmillan RN Unavailable Ebony Shoemaker Unavailable [phone] Pcp, No Primary Care Provider Unavailabl e Rodney Gonzáles MD Unavailable [phone] Encounter Details Date Type Department Care Team (Late st Contact Info) Description 01/04/2025 Orders Only External Location [address] [place] [address] Provider, External Social History Tobacco Use Types [...] documented as of this encounter Care Teams Auditor Internal Relationship Specialty Start Date End Date Pcp, No [address] [place] [id number] PCP - General Family Medicine 03/20/25 Isabella Saucedo APRN [address] [facility] [address] [place] [address] Referring Physician 02/26/25 Jeannie Mcmillan, RN [facility] [address] [place] [address] Registered Nurse Transplant Surgery 03/08/25 [place] [address] Registered Nurse Transplant Surgery 03/08/25 Rodney Gonzáles MD [address] [facility] [address] [place] [address] Medical Oncologist 04/10/25 documented as of this encounter
--- OUTSIDE RECORDS SUMMARY | 2025-05-22 11:02 | XMS_ITS | Clinical Summary ---
Author Organization Healthcare Address [address] [place] [address] Care Team Providers Care Director Corporate Sales Name Role Phone LewisBereniceIsabella J BRAILLE PROOFREADER Unavailable [phone] Jeannie Mcmillan RN Unavailable [phone] Ebony Shoemaker Unavailable [phone] Pcp, No Primary Care Provider Unavailabl e Rodney Gonzáles MD Unavailable [phone] Allergies Active Allergy Reactions Criticality Noted [...] EDT Hospital Encounter [facility] Inpatient [address] [place] [address] Clotilde Saleh MD Arndt, Frederick, MD Vyasabattu, Mahender, MD Generalized abdominal pain (Primary Dx); Hepatocellular carcinoma; RUQ abdominal pain Discharge Disposition: Home or Self Care 05/01/2025 Travel 05/01/2025 Orders Only External Location [address] [place] [address] Chris Lazo MD 04/06/2025 Telephone [facility] [address] [address] Ebony Shoemaker Txp Surgical Follow-up 03/20/2025 4:39 PM EDT - 03/21/2025 6:51 PM EDT Hospital Encounter [facility] H Inpatient [address] [place] [id number] Clotilde Saleh MD Santos, MD Krystina Wade Anne E, MD Epigastric pain (Primary Dx); Hepatocellular carcinoma; Alcoholic cirrhosis of liver without ascites (CMS/HCC) Discharge Disposition: Home or Self Care 03/20/2025 Travel 03/20/2025 Orders Only External Location [address] [place] [address] Provider, External 03/20/2025 Orders Only External Location [address] [place] [phone] Provider, External 03/20/2025 Orders Only External Location [address] [place] [phone] Provider, External 03/16/2025 Telephone [facility] [address] [phone] Ebony Shoemaker Txp Surgical Follow-up (Ernestina: Tumor Board Discussion 03/16/25) 03/14/2025 11:20 AM EDT - 03/14/2025 11:59 PM EDT Hospital Encounter [facility] [address] [place] [address] Elevated AFP; Liver lesion; Hepatic cirrhosis, unspecified hepatic cirrhosis type, unspecified whether ascites present (CMS/HCC) Discharge Disposition: Home or Self Care 03/14/2025 10:00 AM EDT Office Visit [facility] [address] [address] Peter Do MD HCC (hepatocellular carcinoma) (Primary Dx) 03/14/2025 Orders Only [facility] [address] [place] [phone] Ebony Shoemaker Liver lesion (Primary Dx); Elevated AFP; Hepatic cirrhosis, unspecified hepatic cirrhosis type, unspecified whether ascites present (CMS/HCC) 03/14/2025 Travel 03/10/2025 Travel 03/07/2025 Travel 03/06/2025 Telephone [facility] [address] [address] Cici Ramírez Manisha 03/06/2025 Telephone [facility] [address] [address] [place] [phone] Angelita Reeves Appointment 03/05/2025 Telephone [facility] [address] [address] Angelita Reeves Appointment 02/26/2025 Telephone [facility] [address] [phone] Angelita Reeves Referral - Liver Txp 02/26/2025 [facility] [address] [place] [address] Isabella Saucedo APRN Invasion of liver, gallbladder, pancreas, ipsilateral branch of portal vein, 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 No 05/02/2025 [facility] Utilities Answer Date Recorded In the [...] Last Done Comments [facility]-/Child/Adol SDOH Screenings 1960 [id number] Vaccine (#1) 1963 [facility]-Hepatitis A Vaccines (1 [...] W/O DIFFERENTIAL Routine 05/03/2025 4:00 AM EDT DIRECT BILIRUBIN, PLASMA Routine 025 1:42 PM EDT DIRECT BILIRUBIN, PLASMA STAT Add-on 025 2:07 AM EDT LACTATE, VENOUS Routine 05/02/2025 [...] (PLPEth) <10 ng/mL 05/06/2025 12:20 PM EDT [facility] PEth 16:0/18:1 (POPEth) <10 ng/mL 05/06/2025 12:20 PM EDT [facility] EER Peth See Note 05/06/2025 12:20 PM EDT [facility] PEth Interpretation See Comment 05/06/2025 12:20 PM EDT [facility] Blood Venous blood specimen / Unknown Venipuncture / Unknown 05/04/2025 4:33 AM EDT 05/04/2025 4:42 AM EDT Narrative [facility] - 05/06/2025 12:20 PM EDT PEth 16:0/18:1 (POPEth) Less than 10 ng/mL............Not detected Less than 20 ng/mL............Abstinence or light alcohol consumption 20 - 200 ng/mL................Moderate alcohol consumption Greater than 200 ng/mL........Heavy alcohol consumption or chronic alcohol use (Reference: Hannah Correa and Trice Azevedo 2018 J. Forensic Sci) Reference ranges are not well established. Authorized individuals can access the [facility] Enhanced Report with an [facility] account using the following link. Your local lab can assist you in obtaining the patient report if you don't have a Connect account. [email or web address] Phosphatidylethanol (PEth) is a group of phospholipids [...] developed and its performance characteristics determined by [facility]. It has not been cleared or approved by the U.S. Food and Drug Administration. This test was performed in a CLIA-certified laboratory and is intended for clinical purposes. Performed By: [facility] [address] [place] [id number] Hot Worker: David Marx MD, PhD CLIA Number: [id number] Ang Will MD LAB REF LAB BLOOD AND FLU ID ORD Final Result Performing Organization Address City/[facility]/ZIP Co de Phone Number [facility]) [address] [place] [phone] * (ABNORMAL) Creatine Kinase, Total, Plasma (05/04/2025 4:33 AM EDT) Pathologist [facility] Creatine Kinase, Plasma 33(L) 49 - 320 U/L 05/04/2025 5:27 AM EDT [facility] Blood Venous blood specimen / Unknown Venipuncture / Unknown 05/04/2025 4:33 AM EDT 05/04/2025 4:44 AM EDT Ang Will MD LAB BLOOD ORDERABLES Courtney l Result [facility] [address] [place] [address] * (ABNORMAL) CBC W/O Differential (05/04/2025 4:33 AM EDT) Only the most recent of3 resultswithin the time period is included. WBC Count 4.71 3.70 - 10.30 10*3/uL LAB HEMATOLOGY METHOD 05/04/2025 5:18 AM EDT [facility] RBC Count 4.16(L) 4.60 - 6.10 10*6/uL LAB HEMATOLOGY METHOD 05/04/2025 5:18 AM EDT [facility] HGB 13.1(L) 13.7 - 17.5 g/dL LAB HEMATOLOGY METHOD 05/04/2025 5:18 AM EDT [facility] HCT 38.4(L) 40.0 - 51.0 % LAB HEMATOLOGY METHOD 05/04/2025 5:18 AM EDT [facility] Platelet Count 117(L) 155 - 369 10*3/uL LAB HEMATOLOGY METHOD 05/04/2025 5:18 AM EDT [facility] MCV 92 79 - 98 fL LAB HEMATOLOGY METHOD 05/04/2025 5:18 AM EDT [facility] MCH 31.5 26.0 - 32.0 pg LAB HEMATOLOGY METHOD 05/04/2025 5:18 AM EDT [facility] MCHC 34.1 30.7 - 35.5 g/dL LAB HEMATOLOGY METHOD 05/04/2025 5:18 AM EDT [facility] RDW 15.5(H) 11.5 - 14.5 % LAB HEMATOLOGY METHOD 05/04/2025 5:18 AM EDT [facility] MPV 11.5 8.8 - 12.5 fL LAB HEMATOLOGY METHOD 05/04/2025 5:18 AM EDT [facility] nRBC 0.0 <=0.0 per 100 WBCs LAB HEMATOLOGY METHOD 05/04/2025 5:18 AM EDT [facility] Blood Venous blood specimen / Unknown Venipuncture / Unknown 05/04/2025 4:33 AM EDT 05/04/2025 4:45 AM EDT us Ang Will MD LAB BLOOD ORDERABLES Courtney ferrari Result [facility] [address] [place] [address] * (ABNORMAL) Comprehensive metabolic panel (05/04/2025 4:33 AM EDT) Only the most recent of7 resultswithin the time period is included. [facility] Glucose, Plasma 92 74 - 99 mg/dL 05/04/2025 5:27 AM EDT [facility] BUN, Plasma 11 8 - 23 mg/dL 05/04/2025 5:27 AM EDT [facility] Creatinine, Plasma 0.81 0.70 - 1.20 mg/dL 05/04/2025 5:27 AM EDT [facility] BUN/Creatinine Ratio 14 05/04/2025 5:27 AM EDT [facility] Sodium, Plasma 138 136 - 145 mmol/L 05/04/2025 5:27 AM EDT [facility] Potassium, Plasma 3.3(L) 3.6 - 4.9 mmol/L 05/04/2025 5:27 AM EDT [facility] Chloride, Plasma 106 97 - 107 mmol/L 05/04/2025 5:27 AM EDT [facility] CO2, Plasma 20(L) 22 - 29 mmol/L 05/04/2025 5:27 AM EDT [facility] Anion Gap 12 6 - 16 mmol/L 05/04/2025 5:27 AM EDT [facility] Total Calcium, Plasma 8.5(L) 8.9 - 10.2 mg/dL 05/04/2025 5:27 AM EDT [facility] Total Protein 6.4 6.3 - 7.9 g/dL 05/04/2025 5:27 AM EDT [facility] Albumin, Plasma 2.6(L) 3.5 - 5.2 g/dL 05/04/2025 5:27 AM EDT [facility] AST, Plasma 140(H) 10 - 50 U/L 05/04/2025 5:27 AM EDT [facility] ALT, Plasma 21 10 - 50 U/L 05/04/2025 5:27 AM EDT [facility] Alkaline Phosphatase, Plasma 186(H) 40 - 115 U/L 05/04/2025 5:27 AM EDT [facility] Total Bilirubin, Plasma 2.1(H) 0.2 - 1.1 mg/dL 05/04/2025 5:27 AM EDT [facility] eGFRcr 96.6 mL/min/1.7 3m*2 05/04/2025 5:27 AM EDT [facility] Comment:Reported eGFRcr in m L/min/1.73m2 is based the CKD-EPI 2020 equation that does not use a race coefficient. Blood Venous blood specimen / Unknown Venipuncture / Unknown 05/04/2025 4:33 AM EDT 05/04/2025 4:44 AM EDT Ang Will MD LAB BLOOD ORDERABLES Courtney l Result Performing Organization Address [facility] Co de Phone Number [facility] [address] [place] [address] * (ABNORMAL) Bilirubin, direct (05/02/2025 1:42 PM EDT) Only the most recent of2 resultswithin the time period is included. Direct Bilirubin, Plasma 0.7(H) <=0.3 mg/dL 05/02/2025 2:51 PM EDT [facility] Blood Venous blood specimen / Unknown Venipuncture / Unknown 05/02/2025 1:42 PM EDT 05/02/2025 2:10 PM EDT Ang Will MD LAB BLOOD ORDERABLES Courtney l Result Performing Organization Address [facility] [place] [address] * (ABNORMAL) Lactate, venous (05/02/2025 2:07 AM EDT) Only the most recent of3 resultswithin the time period is included. Lactate, Venous, Whole Blood 3.0(H) 0.5 - 2.2 mmol/L LAB HEMATOLOGY METHOD 05/02/2025 2:21 AM EDT [facility] Blood Venous blood specimen / Unknown Venipuncture / Unknown 05/02/2025 2:07 AM EDT 05/02/2025 2:19 AM EDT Lexi Crane APRN LAB BLOOD ORDERABLES Final Re sult Performing Organization Address City/[facility]/ZIP Co de Phone Number [facility] [address] [place] [address] * (ABNORMAL) Prothrombin Time/INR (05/02/2025 2:07 AM EDT) Only the most recent of5 resultswithin the time period is included. Prothrombin Time 14.5(H) 12.0 - 14.3 sec LAB COAGULATION METHOD 05/02/2025 2:44 AM EDT [facility] INR 1.1 0.9 - 1.1 LAB COAGULATION METHOD 05/02/2025 2:44 AM EDT [facility] Blood Venous blood specimen / Unknown Venipuncture / Unknown 05/02/2025 2:07 AM EDT 05/02/2025 2:20 AM EDT Narrative [facility] - 05/02/2025 2:44 AM EDT [...] of recurrent VT INR 2.5 to 3.5 Lexi Crane APRN LAB BLOOD ORDERABLES Final Re sult Performing Organization Address [facility]/ZIP Co de Phone Number [facility] [address] [place] [address] * (ABNORMAL) CBC and differential (05/02/2025 2:07 AM EDT) Only the most recent of4 resultswithin the time period is included. WBC Count 6.14 3.70 - 10.30 10*3/uL LAB HEMATOLOGY METHOD 05/02/2025 2:31 AM EDT [facility] RBC Count 4.15(L) 4.60 - 6.10 10*6/uL LAB HEMATOLOGY METHOD 05/02/2025 2:31 AM EDT [facility] HGB 13.3(L) 13.7 - 17.5 g/dL LAB HEMATOLOGY METHOD 05/02/2025 2:31 AM EDT [facility] HCT 39.3(L) 40.0 - 51.0 % LAB HEMATOLOGY METHOD 05/02/2025 2:31 AM EDT [facility] Platelet Count 126(L) 155 - 369 10*3/uL LAB HEMATOLOGY METHOD 05/02/2025 2:31 AM EDT [facility] MCV 95 79 - 98 fL LAB HEMATOLOGY METHOD 05/02/2025 2:31 AM EDT [facility] MCH 32.0 26.0 - 32.0 pg LAB HEMATOLOGY METHOD 05/02/2025 2:31 AM EDT [facility] MCHC 33.8 30.7 - 35.5 g/dL LAB HEMATOLOGY METHOD 05/02/2025 2:31 AM EDT [facility] RDW 15.1(H) 11.5 - 14.5 % LAB HEMATOLOGY METHOD 05/02/2025 2:31 AM EDT [facility] MPV 11.9 8.8 - 12.5 fL LAB HEMATOLOGY METHOD 05/02/2025 2:31 AM EDT [facility] nRBC 0.0 <=0.0 per 100 WBCs LAB HEMATOLOGY METHOD 05/02/2025 2:31 AM EDT [facility] Differential Type Automated LAB HEMATOLOGY METHOD 05/02/2025 2:31 AM EDT [facility] Neutrophils % 65 % LAB HEMATOLOGY METHOD 05/02/2025 2:31 AM EDT [facility] Lymphocytes % 20 % LAB HEMATOLOGY METHOD 05/02/2025 2:31 AM EDT [facility] Monocytes % 13 % LAB HEMATOLOGY METHOD 05/02/2025 2:31 AM EDT [facility] Eosinophils % 1 % LAB HEMATOLOGY METHOD 05/02/2025 2:31 AM EDT [facility] Basophils % 0 % LAB HEMATOLOGY METHOD 05/02/2025 2:31 AM EDT [facility] Immature Granulocytes % 1 % LAB HEMATOLOGY METHOD 05/02/2025 2:31 AM EDT [facility] Neutrophils Absolute 4.00 1.60 - 6.10 10*3/uL LAB HEMATOLOGY METHOD 05/02/2025 2:31 AM EDT [facility] Lymphocytes Absolute 1.22 1.20 - 3.90 10*3/uL LAB HEMATOLOGY METHOD 05/02/2025 2:31 AM EDT [facility] Monocytes Absolute 0.79 0.30 - 0.90 10*3/uL LAB HEMATOLOGY METHOD 05/02/2025 2:31 AM EDT [facility] Eosinophils Absolute 0.07 0.00 - 0.50 10*3/uL LAB HEMATOLOGY METHOD 05/02/2025 2:31 AM EDT [facility] Basophils Absolute 0.02 0.00 - 0.10 10*3/uL LAB HEMATOLOGY METHOD 05/02/2025 2:31 AM EDT [facility] Immature Granulocytes Absolute 0.04 0.00 - 0.06 10*3/uL LAB HEMATOLOGY METHOD 05/02/2025 2:31 AM EDT [facility] Blood Venous blood specimen / Unknown Venipuncture / Unknown 05/02/2025 2:07 AM EDT 05/02/2025 2:20 AM EDT Narrative [facility] - 05/02/2025 2:31 AM EDT Therapeutic decision making should be based on absolute values, rather than percentages. us Lexi Crane APRN LAB BLOOD ORDERABLES Final Re sult [facility] [address] [place] [address] * US Abdomen RUQ (05/01/2025 7:43 PM [...] on 05/01/2025 8:43 PM Clotilde Saleh MD [facility] [place] PROCEDURES Final Result [...] TEST ORDERABLES Final Result Performing Organization Address [facility] Co de Phone Number BLOOD BANK [address] [place] [address], * Magnesium (05/01/2025 5:54 PM EDT) Pathologist [facility] Magnesium, Plasma 1.9 1.9 - 2.4 mg/dL 05/01/2025 6:22 PM EDT [facility] Blood Venous blood specimen / Unknown Venipuncture / Unknown 05/01/2025 5:54 PM EDT 05/01/2025 5:58 PM EDT Clotilde Saleh MD LAB BLOOD ORDERABLES Final Resu lt Performing Organization Address [facility] Co de Phone Number [facility] [address] [place] [address] * (ABNORMAL) Lipase (05/01/2025 5:54 PM EDT) Only the most recent of2 resultswithin the time period is included. [facility] Lipase, Plasma 11(L) 19 - 63 U/L 05/01/2025 6:22 PM EDT [facility] Blood Venous blood specimen / Unknown Venipuncture / Unknown 05/01/2025 5:54 PM EDT 05/01/2025 5:58 PM EDT Clotilde Saleh MD LAB BLOOD ORDERABLES Final Resu lt Performing Organization Address [facility] [place] [place] [address] * EKG now - STAT (adult) (05/01/2025 5:43 PM EDT) Only the most recent of2 resultswithin the time period is included. [facility] EKG DIAGNOSIS CLASS Abnormal MUSE ECG Ventricular Rate 70 BPM MUSE ECG Atrial Rate 70 BPM MUSE ECG SC Interval 138 ms MUSE ECG QRSD Interval 86 ms MUSE ECG QT Interval 414 ms MUSE ECG QTC Interval 447 ms MUSE ECG P [place] 50 degrees MUSE ECG R [place] -53 degrees MUSE ECG T Wave [place] 43 degrees MUSE ECG Diagnosis Normal sinus rhythm with sinus arrhythmia MUSE ECG Diagnosis Left axis deviation MUSE ECG Diagnosis Anterior infarct , age undetermined MUSE ECG Diagnosis T wave abnormality, consider lateral ischemia MUSE ECG Diagnosis MUSE ECG Diagnosis MUSE ECG Diagnosis Confirmed by Jordyn Pompa ([id number]) on 05/02/2025 3:24:55 PM MUSE ECG 05/01/2025 [...] 10 <19 ng/L 03/20/2025 11:31 PM EDT [facility] Blood Venous blood specimen / Unknown Venipuncture / Unknown 03/20/2025 10:54 PM EDT 03/20/2025 11:04 PM EDT Leelee Tripathi MD LAB BLOOD ORDERABLE S Final Result [facility] [address] [place] [address] * ED HIV 1/2 Antibody/Antigen Screen w/Reflex [...] EDT 03/20/2025 7:09 PM EDT Dedra A PROFICIO LAB BLOOD ORDERABLES Courtney l Result Performing Organization Address City/[facility]/ZIP Co de Phone Number [facility] [address] [place] [address] * Troponin now and 120 min (03/20/2025 6:51 PM EDT) [facility] Troponin T, High Sensitivity, 0 Hour 9 <19 ng/L 03/20/2025 7:35 PM EDT [facility] Blood Venous blood specimen / Unknown Venipuncture / Unknown 03/20/2025 6:51 PM EDT 03/20/2025 7:09 PM EDT Dedra A PROFIC[facility] LAB BLOOD ORDERABLES Courtney l Result Performing Organization Address [facility] Co de Phone Number [facility] [address] [place] [address] * Hepatitis C Antibody - ED (03/20/2025 6:51 PM EDT) [facility] Hepatitis C Antibody Negative Negative 03/20/2025 8:01 PM EDT [facility] Blood Venous blood specimen / Unknown Venipuncture / Unknown 03/20/2025 6:51 PM EDT 03/20/2025 7:09 PM EDT Dedra A PROFICIO LAB BLOOD ORDERABLES Courtney l Result Performing Organization Address City/[facility] Co de Phone Number [facility] [address] [place] [address] * APTT (03/20/2025 6:51 PM EDT) [facility] aPTT 31 25 - 35 sec 03/20/2025 7:25 PM EDT [facility] Blood Venous blood specimen / Unknown Venipuncture / Unknown 03/20/2025 6:51 PM EDT 03/20/2025 7:08 PM EDT Dedra A [employer] LAB BLOOD ORDERABLES Courtney l Result Performing Organization Address [facility] de Phone Number [facility] [address] [place] [address] * C-Reactive protein (03/20/2025 6:51 PM EDT) [facility] CRP, Plasma 5.2 <=8.0 mg/L 03/20/2025 7:35 PM EDT [facility] Blood Venous blood specimen / Unknown Venipuncture / Unknown 03/20/2025 6:51 PM EDT 03/20/2025 7:09 PM EDT Narrative [facility] - 03/20/2025 7:35 PM EDT This CRP test is appropriate for assessment of infection, systemic inflammation and/or tissue injury. To assess cardiovascular disease risk order high sensitivity CRP (CRPH). Dedra A PROFICIO LAB BLOOD ORDERABLES Courtney l Result Performing Organization Address [facility] de Phone Number [facility] [address] [place] [address] * CT THORACIC OUTSIDE IMAGES (03/20/2025 1:13 PM EDT) Anatomical Region Laterality Modality Computed Tomogra phy 03/20/2025 1:13 PM EDT us External Provider IMG CT PROCEDURES Final Result * XR OUTSIDE IMAGES (03/20/2025 12:54 PM EDT) Anatomical Region Laterality Modality Radiographic Iwnnie ging 03/20/2025 12:5 4 PM EDT us [...] 1,098.0(H) <10.0 ng/mL 03/14/2025 10:22 AM EDT [facility] Blood Venous blood specimen / Unknown Venipuncture / Unknown 03/14/2025 8:38 AM EDT 03/14/2025 9:03 AM EDT Narrative [facility] - 03/14/2025 10:22 AM EDT Performed by Ricky electrochemiluminescent immunoassay which is traceable to the 1st AFP IRP WHO Reference standard 72/255. Results obtained with different test methods or kits cannot be used interchangeably. Peter Do MD LAB BLOOD ORDERABLES Final Result [facility] [address] [place] [address] * Cancer Antigen, GI (CA 19.9) (03/14/2025 8:38 AM EDT) CA 19.9 26.5 <36 U/mL 03/14/2025 10:22 AM EDT [facility] Blood Venous blood specimen / Unknown Venipuncture / Unknown 03/14/2025 8:38 AM EDT 03/14/2025 9:03 AM EDT Narrative [facility] - 03/14/2025 10:22 AM EDT Performed by Ricky electrochemiluminescent immunoassay. Results obtained with different test methods or kits cannot be used interchangeably. Peter Do MD LAB BLOOD ORDERABLES Final Result Performing Organization Address City/[facility]/ZIP Co de Phone Number [facility] [address] [place] [address] * (ABNORMAL) CEA, Serum (03/14/2025 8:38 AM EDT) CEA, Serum 5.2(H) <4.0 ng/mL 03/14/2025 10:22 AM EDT [facility] Blood Venous blood specimen / Unknown Venipuncture / Unknown 03/14/2025 8:38 AM EDT 03/14/2025 9:03 AM EDT Narrative [facility] - 03/14/2025 10:22 AM EDT Normal range for smokers: < 5.5 ng/ml Normal range for non-smokers: <=4.0 ng/ml Performed by Ricky electrochemiluminescent immunoassay. Results obtained with different test methods or kits cannot be used interchangeably. Peter Do MD LAB BLOOD ORDERABLES Final Result Performing Organization Address [facility] Co de Phone Number [facility] [address] [place] [address] from Last 3 Months Insurance [place]ICA[place] MEDICARE [...] updated to appropriate status: Yes Care Teams Director Corporate Sales Relationship Specialty Start Date End Date Pcp, No [address] [place] [address] PCP - General Family Medicine 03/20/25 Isabella Saucedo APRN [address] [facility] [address] [place] [address] Referring Physician 02/26/25 Jeannie Mcmillan, RN [facility] [address] [place] [address] Registered Nurse Transplant Surgery 03/08/25 [place] [address] Registered Nurse Transplant Surgery 03/08/25 Rodney Gonzáles MD [address] [facility] [address] [place] [address] Medical Oncologist 04/10/25
--- OUTSIDE RECORDS SUMMARY | 2025-05-22 11:02 | XMS_ITS | Encounter Summary ---
Author Organization Healthcare Address [address] [place] [address] Care Team Providers Care Manager Product Management Name Role Phone Isabella Saucedo APRN Unavailable [phone] Jeannie Mcmillan RN Unavailable [phone] Ebony Shoemaker Unavailable [phone] Pcp, No Primary Care Provider Unavailabl e Rodney Gonzáles MD Unavailable [phone] Reason for Referral * Consultation (Routine) - Authorized Specialty Diagnoses / Procedures Referred By Contarjun t Referred To Contact Hematology and Oncology Diagnoses Elevated alpha fetoprotein Liver tumor Isabella Saucedo APRN [address] [place] [address] Phone: tel: fax: Referral ID Status Reason Start Date Expiration Date Visits Requested Visits Authorized [id number] Authorized Specialty Services Required 02/20/2025 08/22/2026 1 1 Encounter Details Date Type Department Care Team (Late st Contact Info) Description 02/19/2025 Community [facility] [address] [place] [address] Isabella Saucedo APRN [address] [place] [address] [place] [address] Elevated alpha fetoprotein (Primary Dx); Liver tumor [...] as of this encounter Care Teams Manager Product Management Relationship Specialty Start Date End Date Pcp, No [address] [place] [address] PCP - General Family Medicine 03/20/25 Isabella Saucedo APRN 1210 [facility] [address] [place] [address] Referring Physician 02/26/25 Jeannie Mcmillan, RN [facility] [address] [place] [address] Registered Nurse Transplant Surgery 03/08/25 [place] [address] Registered Nurse Transplant Surgery 03/08/25 Rodney Gonzáles MD 1210 [facility] [address] [place] [address] Medical Oncologist 04/10/25 documented as of this encounter
--- OUTSIDE RECORDS SUMMARY | 2025-05-22 11:02 | XMS_ITS | Encounter Summary ---
Author Organization [facility] Address [address] [place] [address] Care Team Providers Care Geophysical Laboratory Chief Name Role Phone Lewis Isabella Darling SOLID WASTE ANALYST Unavailable [phone] Jeannie Mcmillan RN Unavailable [phone] Ebony Shoemaker Unavailable [phone] Pcp, No Primary Care Provider Unavailabl e Rodney Gonzáles MD Unavailable [phone] Reason for Visit * Reason Comments Txp Surgical Follow-up Encounter Details Date Type Department Care Team (Late st Contact Info) Description 04/06/2025 Telephone [facility] [address] [facility] [address] [place] [address] Ebony Shoemaker [place] [id number] Txp Surgical Follow-up Social History Tobacco Use [...] AM EDT I spoke with Veronica the ship's electronic warfare officer with Isabella Kitchen' office. She said [...] chemo. 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 Added to Dr. Do's discussion [...] as of this encounter Care Teams Geophysical Laboratory Chief Relationship Specialty Start Date End Date Pcp, [address] [address] PCP - General Family Medicine 03/20/25 Isabella Saucedo APRN 1210 [facility] [address] [place], [place] [id number] Referring Physician 02/26/25 Jeannie Mcmillan, RN [facility] [address] [place] [address] Registered Nurse Transplant Surgery 03/08/25 [place] [address] Registered Nurse Transplant Surgery 03/08/25 Rodney Gonzáles MD 1210 [facility] [address] [place] [address] Medical Oncologist 04/10/25 documented as of this encounter
--- OUTSIDE RECORDS SUMMARY | 2025-05-22 11:02 | XMS_ITS | Encounter Summary ---
Author Organization Healthcare Address [address] [place] [address] Care Team Providers Care Supervisor Asbestos Textile Name Role Phone Isabella Saucedo PACKAGE LINER Unavailable [phone] Jeannie Mcmillan RN Unavailable [phone] Ebony Shoemaker Unavailable [phone] Pcp, No Primary Care Provider Unavailabl e Rodney Gonzáles MD Unavailable [phone] Reason for Referral * Transplant (Routine) - Authorized Specialty Diagnoses / Procedures Referred By Contarjun t Referred To Contact Transplant Surgery / Transplant Diagnoses Invasion of liver, gallbladder, pancreas, ipsilateral branch of portal vein, 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 Hepatic cirrhosis, unspecified hepatic cirrhosis type, unspecified whether ascites present Isabella Saucedo APRN [address] [place] [address] [place], [place] [address] Phone: tel: fax: Referral ID Status Reason Start Date Expiration Date Visits Requested Visits Authorized [id number] Authorized Specialty Services Required 02/26/[phone] Encounter Details Date Type Department Care Team (Late st Contact Info) Description 02/26/2025 Community [facility] Community Practice [address] [place] [address] Isabella Saucedo APRN [address] [place] [address] Invasion of liver, gallbladder, pancreas, ipsilateral branch [...] hepatic artery by neoplasm of extrahepatic bile duct- Primary Elevated alpha fetoprotein Other nonspecific findings on examination of blood Hepatic cirrhosis, unspecified hepatic cirrhosis type, unspecified whether ascites present documented in this encounter Additional Health Concerns Infection Onset Date Last Indicated Resolved Time C. difficile Rule-Out 05/04/2025 05/04/20252024 9:53 PM EDT documented as of this encounter Care Teams Supervisor Asbestos Textile Relationship Specialty Start Date End Date Pcp, No [address] [place] [address] PCP - General Family Medicine 03/20/25 Isabella Saucedo APRN [address] [address] Referring Physician 02/26/25 Jeannie Mcmillan RN [facility] [address] [place] [address] Registered Nurse Transplant Surgery 03/08/25 [place] [address] Registered Nurse Transplant Surgery 03/08/25 Rodney Gonzáles MD [address] [place] [address] [address] [place] [address] Medical Oncologist 04/10/25 documented as of this encounter
--- OUTSIDE RECORDS SUMMARY | 2025-05-22 11:02 | XMS_ITS | Encounter Summary ---
Author Organization [place] [address] Care Team Providers Care Assistant Hvac Mechanic Name Role Phone Jan Sin MD Unavailable [phone] Macario Pryor MD Un[facility] Cr Resendez MD Primary Care Provider [phone] Reason for Visit * Reason Onset Date Comments Central Patient Navigator Outreach 04/19/2025 AWV Questionnaire Encounter Details Date Type Department Care Team (Late st Contact Info) Description 04/19/2025 Patient Outreach SEP [facility] [address] [place] [address] Cr Resendez MD [address] [place] [address] [place] [address] Central Patient Navigator Outreach (AWV Questionnaire/) Social [...] Questionnaires Attempt Count: inbound Care Gaps Addressed helper steel fabrication: Medicare Questionnaire Outcome:Medicare Questionnaire completed Call back number: [phone] * Esme Mendez - 04/19/2025 10:38 AM EDT Patient Outreach: Pre-Visit Questionnaires Attempt Count: 1st Care Gaps Addressed helper steel fabrication: Medicare Questionnaire Outcome:MyChart Message Sent and Patient not available Call back number: [phone] documented in this encounter Plan of Treatment [...] documented as of this encounter Care Teams Assistant Hvac Mechanic Relationship Specialty Start Date End Date Macario Pryor MD [address] [place] [address] [place] [address] PCP - Hematology/Oncology Internal Medicine-Medical Oncology 11/12/15 Cr Resendez MD [address] [place] [address] [place] [address] PCP - General Family Medicine 11/24/21 Jan Sin MD [address] [place] [address] [place] [address] Internal Medicine-Cardiovascul ar Disease 08/28/14 documented as of this encounter
--- OUTSIDE RECORDS SUMMARY | 2025-05-22 11:02 | XMS_ITS | Encounter Summary ---
Author Organization [place] [address] Care Team Providers Care School Of Nursing Director Name Role Phone Jan Sin MD Unavailable [phone] Macario Pryor MD Unavailable Unavailabl e Cr Resendez MD Primary Care Provider [phone] Reason for Visit * Reason Comments Medication Refill Encounter Details Date Type Department Care Team (Late st Contact Info) Description 03/26/2025 Refill SEP Luis [facility] [place] [address] Cr Resendez MD [address] [place] [address] [address] [place] [id number] Medication Refill Social History Tobacco Use Types [...] as of this encounter Care Teams School Of Nursing Director Relationship Specialty Start Date End Date Macario Pryor MD [address] [place] [address] [place] [address] PCP - Hematology/Oncology Internal Medicine-Medical Oncology 11/12/15 Cr Resendez MD [address] [place] [address] [place] [address] PCP - General Family Medicine 11/24/21 Jan Sin MD [address] [place] [address] [place] [address] Internal Medicine-Cardiovascul ar Disease 08/28/14 documented as of this encounter
--- OUTSIDE RECORDS SUMMARY | 2025-05-22 11:02 | XMS_ITS | Encounter Summary ---
Author Organization Healthcare Address [address] [place] [address] Care Team Providers Care Business Office Manager Name Role Phone Isabella Saucedo Phong PECAN GROWER Unavailable [phone] Jeannie Mcmillan RN Unavailable [phone] Ebony Shoemaker Unavailable [phone] Pcp, No Primary Care Provider Unavailabl e Rodney Gonzáles MD Unavailable [phone] Encounter Details Date Type Department Care Team (Late st Contact Info) Description 12/07/2024 Orders Only External Location 800 [place] [address] Provider, External Social History Tobacco Use Types [...] documented as of this encounter Care Teams Business Office Manager Relationship Specialty Start Date End Date Pcp, No [address] [place], [place] [id number] PCP - General Family Medicine 03/20/25 Isabella Saucedo APRN 1210 [facility] [address] [place] [address] Referring Physician 02/26/25 Jeannie Mcmillan, RN [facility] [address] [place] [address] Registered Nurse Transplant Surgery 03/08/25 Ebony Shoemaker [place] [id number] Registered Nurse Transplant Surgery 03/08/25 Rodney Gonzáles MD 1210 [facility] [address] [place] [address] Medical Oncologist 04/10/25 documented as of this encounter
--- OUTSIDE RECORDS SUMMARY | 2025-05-22 11:02 | XMS_ITS | Encounter Summary ---
Author Organization Healthcare Address [address] [place] [address] Care Team Providers Care Electrician Refinery Name Role Phone Isabella Saucedo Phong SAMPLE DISPLAY PREPARER Unavailable [phone] Jeannie Mcmillan RN Unavailable [phone] Ebony Shoemaker Unavailable [phone] Pcp, No Primary Care Provider Unavailabl e Rodney Gonzáles MD Unavailable [phone] Encounter Details Date Type Department Care Team (Late st Contact Info) Description 05/01/2025 Orders Only External Location [address] [place] [address] Chris Lazo MD [address] [address] Social History Tobacco Use Types [...] any time in the past 12 [facility], were you homeless or living in a senior care (including now)? No 05/02/2025 [facility] Answer [...] documented as of this encounter Care Teams Electrician Refinery Relationship Specialty Start Date End Date Pcp, No [address] [place] [address] PCP - General Family Medicine 03/20/25 Isabella Saucedo APRN [address] [place] [address] [address] [place] [address] Referring Physician 02/26/25 Jeannie Mcmillan, NIURKA [facility] [address] [place] [address] Registered Nurse Transplant Surgery 03/08/25 [place] [address] Registered Nurse Transplant Surgery 03/08/25 Rodney Gonzáles MD 1210 [facility] [address] [place] [address] Medical Oncologist 04/10/25 documented as of this encounter
--- OUTSIDE RECORDS SUMMARY | 2025-05-22 11:02 | XMS_ITS | Encounter Summary ---
Author Organization Healthcare Address [address] [place] [address] Care Team Providers Care Unmanned Aircraft Systems Roboticist Name Role Phone Isabella Saucedo Phong FLIGHT TOWER DISPATCHER Unavailable [phone] Jeannie Mcmillan RN Unavailable [phone] Ebony Shoemaker Unavailable [phone] Pcp, No Primary Care Provider Unavailabl e Rodney Gonzáles MD Unavailable [phone] Encounter Details Date Type Department Care Team (Late st Contact Info) Description 01/12/2025 Orders Only External Location 800 [place] [address] Provider, External Social History Tobacco Use Types [...] documented as of this encounter Care Teams Unmanned Aircraft Systems Roboticist Relationship Specialty Start Date End Date Pcp, [place] [address] PCP - General Family Medicine 03/20/25 Isabella Saucedo APRN 1210 [facility] [address] [place] [address] Referring Physician 02/26/25 Jeannie Mcmillan, RN [facility] [address] [place] [address] Registered Nurse Transplant Surgery 03/08/25 Ebony Shoemaker [place] [id number] Registered Nurse Transplant Surgery 03/08/25 Rodney Gonzáles MD 1210 [facility] [address] [place] [address] Medical Oncologist 04/10/25 documented as of this encounter
--- OUTSIDE RECORDS SUMMARY | 2025-05-22 11:02 | XMS_ITS | Encounter Summary ---
Author Organization Healthcare Address [address] [place] [address] Care Team Providers Care Wildlife Forensic Geneticist Name Role Phone Isabella Saucedo Phong ACCOUNTING LECTURER Unavailable [phone] Jeannie Mcmillan RN Unavailable [phone] Ebony Shoemaker Unavailable [phone] Pcp, No Primary Care Provider Unavailabl e Rodney Gonzáles MD Unavailable [phone] Encounter Details Date Type Department Care Team (Late st Contact Info) Description 01/12/2025 Orders Only External Location [address] [place] [address] Provider, External Social History Tobacco Use Types [...] documented as of this encounter Care Teams Wildlife Forensic Geneticist Relationship Specialty Start Date End Date Pcp, No [address] [place], [place] [id number] PCP - General Family Medicine 03/20/25 Isabella Saucedo APRN 1210 [facility] [address] [place] [address] Referring Physician 02/26/25 Jeannie Mcmillan, RN [facility] 800 [place] [address] Registered Nurse Transplant Surgery 03/08/25 Ebony Shoemaker [place] [phone] Registered Nurse Transplant Surgery 03/08/25 Rodney Gonzáles MD 1210 [facility] [address] [place] [address] Medical Oncologist 04/10/25 documented as of this encounter
--- OUTSIDE RECORDS SUMMARY | 2025-05-22 11:03 | XMS_ITS | Encounter Summary ---
Author Organization Healthcare Address [address] [place] [address] Care Team Providers Care Lieutenant Shift Supervisor Name Role Phone Isabella Saucedo Phong INSULATION BOARD COATER OPERATOR Unavailable [phone] Jeannie Mcmillan RN Unavailable [phone] Ebony Shoemaker Unavailable [phone] Pcp, No Primary Care Provider Unavailabl e Rodney Gonzáles MD Unavailable [phone] Encounter Details Date Type Department Care Team (Late st Contact Info) Description 11/15/2024 Orders Only External Location 800 [place] [address] Provider, External Social History Tobacco Use Types [...] documented as of this encounter Care Teams Lieutenant Shift Supervisor Relationship Specialty Start Date End Date Pcp, [place] [address] PCP - General Family Medicine 03/20/25 Isabella Saucedo APRN 1210 [facility] [address] [place] [address] Referring Physician 02/26/25 Jeannie Mcmillan, RN [facility] [address] [place] [address] Registered Nurse Transplant Surgery 03/08/25 Ebony Shoemaker [place] [id number] Registered Nurse Transplant Surgery 03/08/25 Rodney Gonzáles MD 1210 [facility] [address] [place] [address] Medical Oncologist 04/10/25 documented as of this encounter
--- OUTSIDE RECORDS SUMMARY | 2025-05-22 11:03 | XMS_ITS | Encounter Summary ---
Author Organization Healthcare Address [address] [place] [address] Care Team Providers Care Label Coder Name Role Phone Isabella Saucedo Phong MATERIALS RECYCLER Unavailable [phone] Jeannie Mcmillan RN Unavailable [phone] Ebony Shoemaker Unavailable [phone] Pcp, No Primary Care Provider Unavailabl e Rodney Gonzáles MD Unavailable [phone] Encounter Details Date Type Department Care Team (Late st Contact Info) Description 05/26/2022 Orders Only External Location 800 [place] [address] Provider, External Social History Tobacco Use Types [...] documented as of this encounter Care Teams Label Coder Relationship Specialty Start Date End Date Pcp, [place] [address] PCP - General Family Medicine 03/20/25 Isabella Saucedo APRN 1210 [facility] [address] [place] [address] Referring Physician 02/26/25 Jeannie Mcmillan, RN [facility] 800 [place] [address] Registered Nurse Transplant Surgery 03/08/25 Ebony Shoemaker [place] [id number] Registered Nurse Transplant Surgery 03/08/25 Rodney Gonzáles MD 1210 [facility] [address] [place] [address] Medical Oncologist 04/10/25 documented as of this encounter
--- OUTSIDE RECORDS SUMMARY | 2025-05-22 11:03 | XMS_ITS | Encounter Summary ---
Author Organization Healthcare Address [address] [place] [address] Care Team Providers Care Real Estate Subagent Name Role Phone Isabella Saucedo Phong ONLINE MERCHANDISER Unavailable [phone] Jeannie Mcmillan RN Unavailable [phone] Ebony Shoemaker Unavailable [phone] Pcp, No Primary Care Provider Unavailabl e Rodney Gonzáles MD Unavailable Encounter Details Date Type Department Care Team (Late st Contact Info) Description 12/06/2024 Orders Only External Location 800 [place] [address] Provider, External Social History Tobacco Use Types [...] documented as of this encounter Care Teams Real Estate Subagent Relationship Specialty Start Date End Date Pcp, No [address] [place] [address] PCP - General Family Medicine 03/20/25 Isabella Saucedo APRN 1210 [facility] [address] [place] [address] Referring Physician 02/26/25 Jeannie Mcmillan, RN [facility] [address] [place] [address] Registered Nurse Transplant Surgery 03/08/25 Ebony Shoemaker [place] [id number] Registered Nurse Transplant Surgery 03/08/25 Rodney Gonzáles MD 1210 [facility] [address] [place] [address] Medical Oncologist 04/10/25 documented as of this encounter
--- OUTSIDE RECORDS SUMMARY | 2025-05-22 11:03 | XMS_ITS | Encounter Summary ---
Author Organization Healthcare Address [address] [place] [address] Care Team Providers Care Hem Inspector Name Role Phone Isabella Saucedo Phong MARINE ENGINE MECHANIC Unavailable [phone] Jeannie Mcmillan RN Unavailable [phone] Ebony Shoemaker Unavailable [phone] Pcp, No Primary Care Provider Unavailabl e Rodney Gonzáles MD Unavailable [phone] Encounter Details Date Type Department Care Team (Late st Contact Info) Description 01/14/2024 Orders Only External Location 800 [place] [address] Provider, External Social History Tobacco Use Types [...] documented as of this encounter Care Teams Hem Inspector Relationship Specialty Start Date End Date Pcp, No 800 [place] [address] PCP - General Family Medicine 03/20/25 Isabella Saucedo APRN 1210 [facility] [address] [place] [address] Referring Physician 02/26/25 Jeannie Mcmillan, RN [facility] 800 [place] [address] Registered Nurse Transplant Surgery 03/08/25 [place] [address] Registered Nurse Transplant Surgery 03/08/25 Rodney Gonzáles MD 1210 [facility] [address] [place] [address] Medical Oncologist 04/10/25 documented as of this encounter
--- OUTSIDE RECORDS SUMMARY | 2025-05-22 11:03 | XMS_ITS | Encounter Summary ---
Author Organization Healthcare Address [address] [place] [address] Care Team Providers Care Homebound Teacher Name Role Phone Isabella Saucedo Phong PROCEDURAL NURSE Unavailable [phone] Jeannie Mcmillan RN Unavailable [phone] Ebony Shoemaker Unavailable [phone] Pcp, No Primary Care Provider Unavailabl e Rodney Gonzáles MD Unavailable [phone] Encounter Details Date Type Department Care Team (Late st Contact Info) Description 12/06/2024 Orders Only External Location [address] [place] [address] Provider, External Social History Tobacco Use Types [...] documented as of this encounter Care Teams Homebound Teacher Relationship Specialty Start Date End Date Pcp, No [address] [place] [address] PCP - General Family Medicine 03/20/25 Isabella Saucedo APRN 1210 [facility] [address] [place] [address] Referring Physician 02/26/25 Jeannie Mcmillan, RN [facility]RATION [address] [place] [address] Registered Nurse Transplant Surgery 03/08/25 Ebony Shoemaker [place] [id number] Registered Nurse Transplant Surgery 03/08/25 Rodney Gonzáles MD 1210 [facility] [address] [place] [address] Medical Oncologist 04/10/25 documented as of this encounter
--- OUTSIDE RECORDS SUMMARY | 2025-05-22 11:03 | XMS_ITS | Encounter Summary ---
Author Organization [place] [address] Care Team Providers Care Roof Panel Hanger Name Role Phone Jan Sin MD Unavailable [phone] Macario Pryor MD Unavailable [facility] Cr Lopez MD Primary Care Provider [phone] Reason for Visit * Reason Comments Medication Refill Encounter Details Date Type Department Care Team (Late st Contact Info) Description 05/17/2025 Refill SEP Luis [address] [place] [address] Lorri Crespo, BOX TOE CEMENTER [address] [place] [address] Medication Refill Social History Tobacco Use Types [...] Refills Last Filled Start Date End Date clotrimazole (LOTRIMIN) 1 % Top CreamIndications:C andidiasis of penis Apply topically 2 times daily. 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 12/27/2024 05/18/2025 documented as of this encounter Additional Health Concerns Assessment Noted Time PHQ-9 Depression Total Score: 15 025 8:00 AM EDT A fall risk assessment has been complete d for the patient 06/20/2024 1:28 PM EDT PHQ-2 Depression Total Score: 3 04/23/20 25 8:00 AM EDT documented as of this encounter Care Teams Roof Panel Hanger Relationship Specialty Start Date End Date Macario Pryor MD [address] [place] [address] [place] [address] PCP - Hematology/Oncology Internal Medicine-Medical Oncology 11/12/15 Cr Resendez MD [address] [place] [address] [place] [address] PCP - General Family Medicine 11/24/21 Jan Sin MD [address] [place] [address] [place] [address] Internal Medicine-Cardiovascul ar Disease 08/28/14 documented as of this encounter
--- OUTSIDE RECORDS SUMMARY | 2025-05-22 11:03 | XMS_ITS | Encounter Summary ---
Author Organization Healthcare Address [address] [place] [address] Care Team Providers Care Community Center Worker Name Role Phone Isabella Saucedo Phong SAND BUFFER Unavailable [phone] Jeannie Mcmillan RN Unavailable [phone] Ebony Shoemaker Unavailable [phone] Pcp, No Primary Care Provider Unavailabl e Rodney Gonzáles MD Unavailable [phone] Encounter Details Date Type Department Care Team (Late st Contact Info) Description 12/07/2024 Orders Only External Location [address] [place] [address] Provider, External Social History Tobacco Use Types [...] of this encounter Care Teams Community Center Worker Relationship Specialty Start Date End Date Pcp, [place] [address] PCP - General Family Medicine 03/20/25 Isabella Saucedo APRN 1210 [facility] [address] [place] [address] Referring Physician 02/26/25 Jeannie Mcmillan, RN [facility] 800 [place] [address] Registered Nurse Transplant Surgery 03/08/25 Ebony Shoemaker [place] [id number] Registered Nurse Transplant Surgery 03/08/25 Rodney Gonzáles MD 1210 [facility] [address] [place] [address] Medical Oncologist 04/10/25 documented as of this encounter
--- OUTSIDE RECORDS SUMMARY | 2025-05-22 11:03 | XMS_ITS | Encounter Summary ---
Author Organization Healthcare Address [address] [place] [address] Care Team Providers Care Batch Room Technician Name Role Phone Isabella Saucedo Phong ON SITE PROPERTY MANAGER Unavailable [phone] Jeannie Mcmillan RN Unavailable [phone] Ebony Shoemaker Unavailable [phone] Pcp, No Primary Care Provider Unavailabl e Rodney Gonzáles MD Unavailable Encounter Details Date Type Department Care Team (Late st Contact Info) Description 12/06/2024 Orders Only External Location 800 [place] [address] Provider, External Social History Tobacco Use Types [...] documented as of this encounter Care Teams Batch Room Technician Relationship Specialty Start Date End Date Pcp, No [address] [place] [address] PCP - General Family Medicine 03/20/25 Isabella Saucedo APRN 1210 [facility] [address] [place] [address] Referring Physician 02/26/25 Jeannie Mcmillan, RN [facility] 800 [place] [address] Registered Nurse Transplant Surgery 03/08/25 Ebony Shoemaker [place] [phone] Registered Nurse Transplant Surgery 03/08/25 Rodney Gonzáles MD 1210 [facility] [address] [place] [address] Medical Oncologist 04/10/25 documented as of this encounter
--- OUTSIDE RECORDS SUMMARY | 2025-05-22 11:03 | XMS_ITS | Encounter Summary ---
Author Organization Healthcare Address [address] [place] [address] Care Team Providers Care Beauty Operator Name Role Phone Isabella Saucedo Phong SATURATOR TENDER Unavailable [phone] Jeannie Mcmillan RN Unavailable [phone] Ebony Shoemaker Unavailable [phone] Pcp, No Primary Care Provider Unavailabl e Rodney Gonzáles MD Unavailable [phone] Encounter Details Date Type Department Care Team (Late st Contact Info) Description 11/22/2024 Orders Only External Location 800 [place] [address] Provider, External Social History Tobacco Use Types [...] documented as of this encounter Care Teams Beauty Operator Relationship Specialty Start Date End Date Pcp, No [address] [place], [place] [id number] PCP - General Family Medicine 03/20/25 Isabella Saucedo APRN 1210 [facility] [address] [place] [address] Referring Physician 02/26/25 Jeannie Mcmillan, RN [facility] 800 [place] [address] Registered Nurse Transplant Surgery 03/08/25 Ebony Shoemaker [place] [id number] Registered Nurse Transplant Surgery 03/08/25 Rodney Gonzáles MD 1210 [facility] [address] [place] [address] Medical Oncologist 04/10/25 documented as of this encounter
--- OUTSIDE RECORDS SUMMARY | 2025-05-22 11:03 | XMS_ITS | Encounter Summary ---
Author Organization Healthcare Address [address] [place] [address] Care Team Providers Care Mill Tender Name Role Phone Isabella Saucedo Phong FINAL INSPECTOR MOVEMENT ASSEMBLY Unavailable [phone] Jeannie Mcmillan RN Unavailable [phone] Ebony Shoemaker Unavailable [phone] Pcp, No Primary Care Provider Unavailabl e Rodney Gonzáles MD Unavailable [phone] Encounter Details Date Type Department Care [...] in a fci (including now)? No 05/02/2025 [facility] Utilities Answer Date Recorded In the [...] as of this encounter Care Teams Mill Tender Relationship Specialty Start Date End Date Pcp, No [address] [place] [address] PCP - General Family Medicine 03/20/25 Isabella Saucedo APRN [address] [place] [address] [place] [address] Referring Physician 02/26/25 Jeannie Mcmillan, RN [facility] 800 [place] [address] Registered Nurse Transplant Surgery 03/08/25 [place] [address] Registered Nurse Transplant Surgery 03/08/25 Rodney Gonzáles MD [address] [place] [address] [place] [address] Medical Oncologist 04/10/25 documented as of this encounter
--- OUTSIDE RECORDS SUMMARY | 2025-05-22 11:03 | XMS_ITS | Encounter Summary ---
Author Organization Healthcare Address [address] [place] [address] Care Team Providers Care Monitoring Tech Name Role Phone Isabella Saucedo Phong ARROW POINT ATTACHER Unavailable [phone] Jeannie Mcmillan RN Unavailable [phone] Ebony Shoemaker Unavailable [phone] Pcp, No Primary Care Provider Unavailabl e Rodney Gonzáles MD Unavailable [phone] Encounter Details Date Type Department Care Team (Late st Contact Info) Description 12/06/2024 Orders Only External Location 800 [place] [address] Provider, External Social History Tobacco Use Types [...] documented as of this encounter Care Teams Monitoring Tech Relationship Specialty Start Date End Date Pcp, No [address] [place] [address] PCP - General Family Medicine 03/20/25 Isabella Saucedo APRN 1210 [facility] [address] [place] [address] Referring Physician 02/26/25 Jeannie Mcmillan, RN [facility] 800 [place] [address] Registered Nurse Transplant Surgery 03/08/25 Ebony Shoemaker [place] [phone] Registered Nurse Transplant Surgery 03/08/25 Rodney Gonzáles MD 1210 [facility] [address] [place] [address] Medical Oncologist 04/10/25 documented as of this encounter
--- OUTSIDE RECORDS SUMMARY | 2025-05-22 11:03 | XMS_ITS | Encounter Summary ---
Author Organization Healthcare Address [address] [place] [address] Care Team Providers Care Admissions Nurse Name Role Phone Isabella Saucedo Phong IBM BPM DEVELOPER Unavailable [phone] Jeannie Mcmillan RN Unavailable [phone] Ebony Shoemaker Unavailable [phone] Pcp, No Primary Care Provider Unavailabl e Rodney Gonzáles MD Unavailable [phone] Encounter Details Date Type Department Care Team (Late st Contact Info) Description 12/06/2024 Orders Only External Location 800 [place] [address] Provider, External Social History Tobacco Use Types [...] documented as of this encounter Care Teams Admissions Nurse Relationship Specialty Start Date End Date Pcp, No [address] [place] [address] PCP - General Family Medicine 03/20/25 Isabella Saucedo APRN 1210 [facility] [address] [place] [address] Referring Physician 02/26/25 Jeannie Mcmillan, RN [facility] 800 [place] [address] Registered Nurse Transplant Surgery 03/08/25 Ebony Shoemaker [place] [id number] Registered Nurse Transplant Surgery 03/08/25 Rodney Gonzáles MD 1210 [facility] [address] [place] [address] Medical Oncologist 04/10/25 documented as of this encounter
--- OUTSIDE RECORDS SUMMARY | 2025-05-22 11:03 | XMS_ITS | Encounter Summary ---
Author Organization Healthcare Address [address] [place] [address] Care Team Providers Care Bearing Machine Operator Name Role Phone Isabella Saucedo Phong PANTS CUTTER Unavailable [phone] Jeannie Mcmillan RN Unavailable [phone] Ebony Shoemaker Unavailable [phone] Pcp, No Primary Care Provider Unavailabl e Rodney Gonzáles MD Unavailable [phone] Encounter Details Date Type Department Care Team (Late st Contact Info) Description 12/06/2024 Orders Only External Location 800 [place] [address] Provider, External Social History Tobacco Use Types [...] documented as of this encounter Care Teams Bearing Machine Operator Relationship Specialty Start Date End Date Pcp, No [address] [place] [address] PCP - General Family Medicine 03/20/25 Isabella Saucedo APRN 1210 [facility] [address] [place] [address] Referring Physician 02/26/25 Jeannie Mcmillan, RN [facility] 800 [place] [address] Registered Nurse Transplant Surgery 03/08/25 Ebony Shoemaker [place] [id number] Registered Nurse Transplant Surgery 03/08/25 Rodney Gonzáles MD 1210 [facility] [address] [place] [address] Medical Oncologist 04/10/25 documented as of this encounter
--- OUTSIDE RECORDS SUMMARY | 2025-05-22 11:03 | XMS_ITS | Encounter Summary ---
Author Organization Healthcare Address [address] [place] [address] Care Team Providers Care Naval Gunfire Spotter Name Role Phone Isabella Saucedo Phong DEDICATED DRIVER Unavailable [phone] Jeannie Mcmillan RN Unavailable [phone] Ebony Shoemaker Unavailable [phone] Pcp, No Primary Care Provider Unavailabl e Rodney Gonzáles MD Unavailable [phone] Encounter Details Date Type Department Care Team (Late st Contact Info) Description 12/06/2024 Orders Only External Location 800 [place] [address] Provider, External Social History Tobacco Use Types [...] documented as of this encounter Care Teams Naval Gunfire Spotter Relationship Specialty Start Date End Date Pcp, No [address] [place] [address] PCP - General Family Medicine 03/20/25 Isabella Saucedo APRN [address] [facility] [address] [place] [address] Referring Physician 02/26/25 Jeannie Mcmillan, RN [facility]ATION 800 [place] [address] Registered Nurse Transplant Surgery 03/08/25 Ebony Shoemaker [place] [id number] Registered Nurse Transplant Surgery 03/08/25 Rodney Gonzáles MD 1210 [facility] [address] [place] [address] Medical Oncologist 04/10/25 documented as of this encounter
--- OUTSIDE RECORDS SUMMARY | 2025-05-22 11:03 | XMS_ITS | Encounter Summary ---
Author Organization Healthcare Address [address] [place] [address] Care Team Providers Care Structures Mechanic Name Role Phone Isabella Saucedo Phong MICROARRAY OPERATIONS VICE PRESIDENT Unavailable [phone] Jeannie Mcmillan RN Unavailable [phone] Ebony Shoemaker Unavailable [phone] Pcp, No Primary Care Provider Unavailabl e Rodney Gonzáles MD Unavailable [phone] Encounter Details Date Type Department Care Team (Late st Contact Info) Description 12/06/2024 Orders Only External Location 800 [place] [address] Provider, External Social History Tobacco Use Types [...] documented as of this encounter Care Teams Structures Mechanic Relationship Specialty Start Date End Date Pcp, No [address] [place] [address] PCP - General Family Medicine 03/20/25 Isabella Saucedo APRN 1210 [facility] [address] [place] [address] Referring Physician 02/26/25 Jeannie Mcmillan, RN [facility]ISTRATION 800 [place] [address] Registered Nurse Transplant Surgery 03/08/25 Ebony Shoemaker [place] [phone] Registered Nurse Transplant Surgery 03/08/25 Rodney Gonzáles MD 1210 [facility] [address] [place] [address] Medical Oncologist 04/10/25 documented as of this encounter
--- OUTSIDE RECORDS SUMMARY | 2025-05-22 11:03 | XMS_ITS | Encounter Summary ---
Author Organization Healthcare Address [address] [place] [address] Care Team Providers Care Art Glass Designer Name Role Phone Isabella Saucedo Phong BREAD SUPERVISOR Unavailable [phone] Jeannie Mcmillan RN Unavailable [phone] Ebony Shoemaker Unavailable [phone] Pcp, No Primary Care Provider Unavailabl e Rodney Gonzáles MD Unavailable [phone] Encounter Details Date Type Department Care Team (Late st Contact Info) Description 01/06/2024 Orders Only External Location 800 [place] [address] Provider, External Social History Tobacco Use Types [...] documented as of this encounter Care Teams Art Glass Designer Relationship Specialty Start Date End Date Pcp, [place] [address] PCP - General Family Medicine 03/20/25 Isabella Saucedo APRN 1210 [facility] [address] [place] [address] Referring Physician 02/26/25 Jeannie Mcmillan, RN [facility]PLANT [facility]MINISTRATION 800 [place] [address] Registered Nurse Transplant Surgery 03/08/25 Ebony Shoemaker [place] [id number] Registered Nurse Transplant Surgery 03/08/25 Rodney Gonzáles MD 1210 [facility] [address] [place] [address] Medical Oncologist 04/10/25 documented as of this encounter
--- OUTSIDE RECORDS SUMMARY | 2025-05-22 11:03 | XMS_ITS | Encounter Summary ---
Author Organization Healthcare Address [address] [place] [address] Care Team Providers Care Hospice Physician Name Role Phone Isabella Saucedo Phong STRATEGIC PLANNING CONSULTANT Unavailable [phone] Jeannie Mcmillan RN Unavailable [phone] Ebony Shoemaker Unavailable [phone] Pcp, No Primary Care Provider Unavailabl e Rodney Gonzáles MD Unavailable [phone] Encounter Details Date Type Department Care Team (Late st Contact Info) Description 05/26/2022 Orders Only External Location 800 [place] [address] Provider, External Social History Tobacco Use Types [...] documented as of this encounter Care Teams Hospice Physician Relationship Specialty Start Date End Date Pcp, No [address] [place] [address] PCP - General Family Medicine 03/20/25 Isabella Saucedo APRN 1210 [facility] [address] [place] [address] Referring Physician 02/26/25 Jeannie Mcmillan, RN [facility]MINISTRATION 800 [place] [address] Registered Nurse Transplant Surgery 03/08/25 Ebony Shoemaker [place] [id number] Registered Nurse Transplant Surgery 03/08/25 Rodney Gonzáles MD 1210 [facility] [address] [place] [address] Medical Oncologist 04/10/25 documented as of this encounter
--- OUTSIDE RECORDS SUMMARY | 2025-05-22 11:03 | XMS_ITS | Encounter Summary ---
Author Organization Healthcare Address [address] [place] [address] Care Team Providers Care Solderer Torch Name Role Phone Isabella Saucedo Phong TENTERER Unavailable [phone] Jeannie Mcmillan RN Unavailable [phone] Ebony Shoemaker Unavailable [phone] Pcp, No Primary Care Provider Unavailabl e Rodney Gonzáles MD Unavailable [phone] Encounter Details Date Type Department Care Team (Late st Contact Info) Description 06/03/2022 Orders Only External Location 800 [place] [address] Provider, External Social History Tobacco Use Types [...] documented as of this encounter Care Teams Solderer Torch Relationship Specialty Start Date End Date Pcp, No 800 [place] [id number] PCP - General Family Medicine 03/20/25 Isabella Saucedo APRN 1210 [facility] [address] [place] [address] Referring Physician 02/26/25 Jeannie Mcmillan, RN [facility]PL[facility]MINISTRATION 800 [place] [address] Registered Nurse Transplant Surgery 03/08/25 Ebony [place] [address] Registered Nurse Transplant Surgery 03/08/25 Rodney Gonzáles MD 1210 [facility] [address] [place] [address] Medical Oncologist 04/10/25 documented as of this encounter
--- OUTSIDE RECORDS SUMMARY | 2025-05-22 11:03 | XMS_ITS | Encounter Summary ---
Author Organization Healthcare Address [address] [place] [address] Care Team Providers Care Geophysical Observer Name Role Phone Isabella Saucedo Phong CONVEYOR LOADER Unavailable [phone] Jeannie Mcmillan RN Unavailable [phone] Ebony Shoemaker Unavailable [phone] Pcp, No Primary Care Provider Unavailabl e Rodney Gonzáles MD Unavailable [phone] Encounter Details Date Type Department Care Team (Late st Contact Info) Description 12/06/2024 Orders Only External Location 800 [place] [address] Provider, External Social History Tobacco Use Types [...] as of this encounter Care Teams Geophysical Observer Relationship Specialty Start Date End Date Pcp, No [address] [place] [address] PCP - General Family Medicine 03/20/25 Isabella Saucedo APRN 1210 [facility] [address] [place] [address] Referring Physician 02/26/25 Jeannie Mcmillan, RN [facility]MINISTRATION 800 [place] [address] Registered Nurse Transplant Surgery 03/08/25 Ebony Shoemaker [place] [phone] Registered Nurse Transplant Surgery 03/08/25 Rodney Gonzáles MD 1210 [facility] [address] [place] [address] Medical Oncologist 04/10/25 documented as of this encounter
--- OUTSIDE RECORDS SUMMARY | 2025-05-22 11:03 | XMS_ITS | Encounter Summary ---
Author Organization Healthcare Address [address] [place] [address] Care Team Providers Care Pain Management Specialist Name Role Phone Isabella Saucedo Phong SIDEWALK INSPECTOR Unavailable [phone] Jeannie Mcmillan RN Unavailable [phone] Ebony Shoemaker Unavailable [phone] Pcp, No Primary Care Provider Unavailabl e Rodney Gonzáles MD Unavailable [phone] Encounter Details Date Type Department Care [...] any time in the past 12 m [facility], were you homeless or living in a fci (including now)? No 05/02/2025 [facility] Utilities Answer Date Recorded In [...] documented as of this encounter Care Teams Pain Management Specialist Relationship Specialty Start Date End Date Pcp, [address] [address] PCP - General Family Medicine 03/20/25 Isabella Saucedo APRN 1210 [facility] [address] [place] [address] Referring Physician 02/26/25 Jeannie Mcmillan, RN [facility]TRANSPLANT ADMINISTRATION [address] [place] [address] Registered Nurse Transplant Surgery 03/08/25 [place] [address] Registered Nurse Transplant Surgery 03/08/25 Rodney Gonzáles MD 1210 [facility] [address] [place] [address] Medical Oncologist 04/10/25 documented as of this encounter
[2025-05-22 11:24] LABS: Albumin Level 3.5 g/dl (3.5-5.0); Chloride 102 mmol/L (98-107); Potassium 3.5 mmoL/L (3.5-5.1); Sodium 141 mmol/L (136-145)
[2025-05-22 11:27] LABS: Alanine Aminotransferase 55 U/L (12-78); Albumin/Globulin Ratio 0.9 (1.1-1.8); Alkaline Phosphatase 362 U/L (38-126); Anion Gap 12.5 mEq/L (5-15); Aspartate Amino Transferase 152 U/L (17-59); Bilirubin,Total 4.0 mg/dl (0.2-1.3); Blood Urea Nitrogen 14 mg/dl (9-20); Calcium 9.4 mg/dl (8.4-10.2); Carbon Dioxide 30 mmol/L (22.0-30.0); Creatinine,Serum 1.10 mg/dl (0.66-1.25); Estimated Glomerular Filt Rate 67 ml/min (>60); GFR (African American) 81 ML/MIN (>60); Globulin 3.7 g/dL (1.3-3.2); Glucose 122 mg/dl (74-100); Total Protein,Serum 7.2 g/dl (6.3-8.2)
--- NOTE | 2025-05-22 12:13 | PC.NURSE ---
05/22/25 1210 [facility] [place] [facility] [place]. Called in prescriptions per md order.
== END 2025-05-22 23:59 | disposition home or self-care (01) ==
LOC: INF 10:58
PROVIDERS: PCP Family Medicine; Visit Provider Internal Medicine Medical Oncology
DX: C22.0 Liver cell carcinoma (principal)
CPT/HCPCS: 36415; 80053

== ENCOUNTER 2025-05-29 11:53 | Outpatient (CLI) | payer MEDICARE, MEDICAID, SELFPAY ==
--- OUTSIDE RECORDS SUMMARY | 2008-06-24 20:00 | XMS_ITS | Continuity of Care Document ---
Author Organization [facility] Address [address] [facility] [place] [address] Phone Care Team Providers Care Retirement Administrator Name Role Phone No Information Unavailable Unavailable Advance Directives Directive Yes / No Effective Date File Name No Information Encounters Encounter Description Practice Location Reason(s) For Visit Diagnoses Date Provider Providers Copied on Encounter [facility] , [address] [place], [address], tel:[phone] LISA Zayas Ash No Information No Information Family History Family Member Type Diagnosis Age At Onset No Information Payers Payer name Insurance type Covered republican ID Authoriza tion(s) No Information Social History [...]
--- OUTSIDE RECORDS SUMMARY | 2016-03-04 08:15 | XMS_ITS | Encounter Summary ---
Author Organization [place] [address] Care Team Providers Care Physician Anesthesiologist Name Role Phone Jan Sin MD Unavailable [phone] Carlton James DO Primary Care Provide r Macario Pryor MD Unavailable Unavailabl e Encounter Details Date Type Department Care Team (Latest Contact Info) Description 03/04/2016 8:15 AM EDT Hospital Encounter [facility] [address] [facility] [place] [address] Poppy Quintero MD [address] [place], [place] [phone] Left without seen Social History Tobacco Use [...] 3:32 PM EDT Jer Sena RN * [place] Suicide Severity Rating Scale (Q shift for [...] documented as of this encounter Care Teams Physician Anesthesiologist Relationship Specialty Start Date End Date Carlton James DO [address] [place] [address] PCP - General Family Medicine 05/01/15 11/26/16 Macario Pryor MD [address] [place] [address] PCP - Hematology/Oncology Internal Medicine-Medical Oncology 11/12/15 Jan Sin MD [address] [place] [address] [address] [place], [place] [phone] Internal Medicine-Cardiovascul ar Disease 08/28/14 documented as of this encounter
--- OUTSIDE RECORDS SUMMARY | 2023-06-24 09:41 | XMS_ITS | Continuity of Care Document ---
Author Organization [facility] o Address [address] [place] [address] Phone Care Team Providers Care Manager Digital Ad Operations Name Role Phone Morteza RIOS, Erasto Unavailable Unavailable Advance Directives Directive Yes / No Effective Date File Name No Information Encounters Encounter Description Practice Location Reason(s) For Visit Diagnoses Date Provider Providers Copied on Encounter [facility] [place], [facility] [place], [address], [place] tel:[phone] 00 Briana Cherry No Information 3 Morteza Maurer. [address] [place], [place], [id number], [place]. tel:[phone] Family History Family Member Type Diagnosis Age [...]
--- OUTSIDE RECORDS SUMMARY | 2025-04-23 09:00 | XMS_ITS | Encounter Summary ---
Author Organization [place] [address] Care Team Providers Care Corking Machine Operator Name Role Phone Jan Sin MD Unavailable [phone] Macario Pryor MD Un[facility] Resendez MD Primary Care Provider [phone] Reason for Visit * Reason Comments Annual Exam Encounter Details Date Type Department Care Team (Late st Contact Info) Description 04/23/2025 9:00 AM EDT Office Visit SEP Luis [facility] [place] [address] [phone] Cr Resendez MD [address] [place] [address] TRISTIAN MARTINEZ [id number] Encounter for Medicare annual wellness exam (Primary [...] Under treatment with GI and oncology at [facility]. On once monthly chemotherapy atthis time. [...] Currently being treated for hepatocellular carcinoma at [facility] Fall Risk Assessment: Fall Risk Assessment: [...] Under treatment with GI and oncology at [facility]. On once monthly chemotherapy atthis time. [...] visit. If you have a power of compliance attorney stute, we should also have a [...] provided to the patient digitally through their [employer] account or with a paper copy if the patient doesn't have an active MyChart Account. A copy of today's progress note with recommendations below is alsoavailable electronically for patients with an active [employer] account per the Federal Cures Act. TheAVS [...] disease) (HCC) Depression Headache(784.0) Hypertension Kidney stone [place] (myocardial infarction) (HCC) 4 times Neuromuscular disorder (HCC) back and left leg Other disorders of kidney and ureter trys to go often Shortness of breath Past Surgical History: Procedure Laterality Date BACK SURGERY 08/30/1997 CARDIAC SURGERY cabg 2 times CARDIAC SURGERY 2019 pace maker CATARACT REMOVAL 08/30/2007 COLONOSCOPY N/A 10/14/2015 COLONOSCOPY snare polypectomy; Surgeon: Poppy Quintero MD; Location: [facility]; Service: Endoscopy CORONARY ANGIOPLASTY WITH STENT PLACEMENT 01/04/2024 [facility] EYE SURGERY sandra cataract HERNIA REPAIR NECK SURGERY 12/06/[address] [facility] SPINAL CORD DECOMPRESSION 08/30/1998 UPPER GASTROINTESTINAL ENDOSCOPY N/A 10/30/2015 ESOPHAGOGASTRODUODENOSCOPY with biopsies; Surgeon: Poppy Quintero MD; Location: [facility]; Service: Endoscopy VASCULAR SURGERY spinal cord [...] Tablet by mouth daily. 90 Tablet 3 luuziufuwih-itmgstutc-ukvtipdu (TRELEGY ELLIPTA) 100-62.5-25 mcg Inhl Disk with [...] SHAKE WELL nalOXone (NARCAN) 4 mg/actuation Nasl [place], Non-Aerosol 0.1 mL by Nasal route daily [...] Food Insecurity: Patient Declined (12/07/2024) Received from [facility] Hunger Vital Sign Worried About Running Out of Food in the Last Year: Patient declined Ran Out of Food in the Last Year: Patient declined Transportation Needs: Patient Declined (12/07/2024) Received from [facility] PRAPARE - Transportation Lack of Transportation (Medical): Patient declined Lack of Transportation (Non-Medical): Patient declined Housing Stability: Patient Declined (12/07/2024) Received from [facility] Housing Stability Vital Sign Unable to [...] 0.08 <=4.00 ng/mL 04/23/2025 3:49 PM EDT [facility] Blood VENOUS BLOOD / Unknown Venipuncture / Unknown 04/23/2025 9:47 AM EDT 04/23/2025 9:47 AM EDT Narrative [facility] - 04/23/2025 3:49 PM EDT The Ricky [...] Resendez MD CHEMISTRY ORDERABLES Final Res ult [facility] [address] [facility], [place] [address] * LIPID PANEL REFLEX (04/23/2025 9:47 AM EDT) Cholesterol 98 <200 mg/dL 04/23/2025 4:37 PM EDT [facility] Comment: < 200 Desirable 200 - 239 Borderline High >= 240 High Triglyceride 38 <150 mg/dL 04/23/2025 4:37 PM EDT [facility] Comment: < 150 Normal 150 - 199 Borderline High 200 - 499 High >= 500 Very High HDL 40 >=40 mg/dL 04/23/2025 4:37 PM EDT [facility] Comment: > 60 Optimal 40 - 60 Acceptable < 40 Low LDL Calculated 47 <100 mg/dL 04/23/2025 4:37 PM EDT [facility] Comment: < 100 Optimal 100 - 129 Near or above optimal 130 - 159 Borderline High 160 - 189 High >= 190 Very High The National Institutes of Health (NIH) equation is used for all lipid panels that report calculated LDL (LDL-C). Non-HDL-C Calculated 58 <=129 mg/dL 04/23/2025 4:37 PM EDT [facility] Comment: <130 Desirable 130-159 Above Desirable 160-189 Borderline High 190-219 High >= 220 Very High Fasting Specimen? Yes None 025 4:37 PM EDT [facility] [place] [facility] Blood VENOUS BLOOD / Unknown Venipuncture / Unknown 04/23/2025 9:47 AM EDT 04/23/2025 9:47 AM EDT Cr Resendez MD CHEMISTRY ORDERABLES Final Res ult Performing Organization Address [facility] Co de Phone Number [facility] [address] , [address] [place], [place] [id number] * TSH REFLEX TO FT4 (04/23/2025 9:47 AM EDT) TSH Reflex 0.889 0.270 - 4.200 mcIU/mL 04/23/2025 4:37 PM EDT [facility] [place] [facility] Blood VENOUS BLOOD / Unknown Venipuncture / Unknown 04/23/2025 9:47 AM EDT 04/23/2025 9:47 AM EDT Narrative [facility] [place] [facility] - 04/23/2025 4:37 PM EDT Ingestion of fernanda doses of biotin (>5 mg/day) taken within 8 hours of drawing blood sample can interfere with this immunoassay test. Cr Resendez MD CHEMISTRY ORDERABLES Final Res ult Performing Organization Address [facility] Co de Phone Number [facility] [address] , [address] [place], [place] [id number] * (ABNORMAL) CBC WITH DIFF (04/23/2025 9:47 AM EDT) Pathologist [facility] WBC 7.3 3.7 - 10.3 x10(3)/mcL 04/23/2025 [...] 4:08 PM EDT [facility] [place] # 1.2(H) 0.3 - 0.9 x10(3)/mcL 04/23/2025 [...] Re sult [facility] [address] [facility] , [place] [address] * (ABNORMAL) COMPREHENSIVE METABOLIC PANEL (04/23/2025 9:47 [...] 4:37 PM EDT [facility], [facility] BUN 13 8 - 23 mg/dL 04/23/2025 4:37 PM EDT [facility], [facility] Creatinine 0.84 0.67 - 1.30 mg/dL 04/23/2025 4:37 PM EDT [facility], [facility] Albumin 3.8 3.2 - 4.6 gm/dL 04/23/2025 4:37 PM EDT [facility], [facility] Total Protein 8.3 6.4 - 8.3 gm/dL 04/23/2025 4:37 PM EDT [facility], [facility] Bili Total 1.2 0.2 - 1.4 mg/dL 04/23/2025 4:37 PM EDT [facility], [facility] ALT 26 <=41 U/L 04/23/2025 4:37 PM EDT [facility], [facility] AST 74(H) <=40 U/L 04/23/2025 4:37 PM EDT [facility], [facility] Alk Phos 142(H) 40 - 129 U/L 04/23/2025 4:37 PM EDT [facility], [facility] eGFR (CKD-EPIcr 2020) 96 >=60 mL/min/1.7 3 m2 04/23/2025 4:37 PM EDT [facility], [facility] Comment:Estimated GFR was ca lculated using the CKD-EPIcr (2020) equation refit without race. The equation is recommended by the National Kidney Foundation - [place] Society of Nephrology Task Force. Blood VENOUS BLOOD / Unknown Venipuncture / Unknown 04/23/2025 9:47 AM EDT 04/23/2025 9:47 AM EDT us Cr Resendez MD CHEMISTRY ORDERABLES Final Res ult [facility] [address] [facility] , [place] [address] * (ABNORMAL) HEMOGLOBIN A1C (04/23/2025 9:47 AM EDT) Hgb A1C 5.7(H) 4.2 - 5.6 % 04/23/2025 5:18 PM EDT [facility] Est. Avg Glucose 117 mg/dL 04/23/2025 5:18 PM EDT [facility] Blood VENOUS BLOOD / Unknown Venipuncture / Unknown 04/23/2025 9:47 AM EDT 04/23/2025 9:47 AM EDT Narrative [facility] [place] [facility] - 04/23/2025 5:18 PM EDT REFERENCE RANGE: Normal: 4.0-5.6% Pre-diabetes: 5.7-6.4% Provisional diagnosis of diabetes: >6.4% Hgb F>10% and anything which shortens red cell survival, such as hemolytic anemia, or unstable hemoglobin variants such as HbSS, HbSC, or HbCC, will lower the HbA1c value associated with a given level of glycemic control. us Cr Resendez MD CHEMISTRY ORDERABLES Final Res ult [facility] [address] [place] [address] , [place] [address] documented in this encounter Visit Diagnoses Diagnosis [...] documented as of this encounter Care Teams Corking Machine Operator Relationship Specialty Start Date End Date Macario Pryor MD [address] [place] [address] TRISTIAN NAILS [address] PCP - Hematology/Oncology Internal Medicine-Medical Oncology 11/12/15 Cr Resendez MD [address] [place] [address] TRISTIAN MARTINEZ [address] PCP - General Family Medicine 11/24/21 Jan Sin MD [address] [place] [address] TRISTIAN NAILS [address] Internal Medicine-Cardiovascul ar Disease 08/28/14 documented as of this encounter
--- OUTSIDE RECORDS SUMMARY | 2025-04-23 09:30 | XMS_ITS | Encounter Summary ---
Author Organization [place] [address] Care Team Providers Care As400 Consultant Name Role Phone Jan Sin MD Unavailable [phone] Macario Pryor MD Unavailable Cr Rodriguez MD Primary Care Provider [phone] Reason for Visit * Reason Comments Care Management - Face To Face Care Transition Advance Care Planning Encounter Details Date Type Department Care Team (Latest Contact Info) Description 04/23/2025 9:30 AM EDT Clinical Support [facility] [place] [facility] [address] [place] [address] Elizabeth Reynoso, NIURKA Encounter for support [...] presents for follow up visit with Office Roustabout Crew Pusher (OCC) Reason for visit: Advanced Care Planning Visit Type: Face to Face Assessment: channel marketing coordinator met with patient and spouse to [...] Educated patient on: Advanced Care Planning Handouts: [place] Living Will x 2 copies Handouts provided in person Care Coordination Business Card Goals: One-time assessment Next Steps: Roustabout Crew Pusher contact information given / reviewed Notes: No identified SDOH concerns after SDOH assessment review documented in this encounter Miscellaneous Notes * ACP (Advance Care Planning) - Elizabeth Reynoso RN - 04/23/2025 9:30 AM EDT Advance Care Planning discussion: ACP discussion: This account underwriter and patient addressed ACP including explanation [...] documented as of this encounter Care Teams As400 Consultant Relationship Specialty Start Date End Date Macario Pryor MD [address] [place] [address] TRIST[place] NAILS [address] PCP - Hematology/Oncology Internal Medicine-Medical Oncology 11/12/15 Cr Rseendez MD [address] [place] [address] TRISTIAN MARTINEZ [address] PCP - General Family Medicine 11/24/21 Jan Sin MD [address] [place] [address] TRISTIAN NAILS [address] Internal Medicine-Cardiovascul ar Disease 08/28/14 documented as of this encounter
--- OUTSIDE RECORDS SUMMARY | 2025-05-01 16:53 | XMS_ITS | Encounter Summary ---
Author Organization Healthcare Address [address] [place] [address] Care Team Providers Care Health Counselor Name Role Phone Isabella Saucedo Phong HAND SINGER Unavailable [phone] Jeannie Mcmillan RN Unavailable [phone] Ebony Shoemaker Unavailable [phone] Pcp, No Primary Care Provider Unavailabl e Rodney Gonzáles MD Unavailable [phone] Reason for Referral * Consultation (Routine) - Authorized Specialty Diagnoses / Procedures Referred By Contac t Referred To Contact Diagnoses RUQ abdominal pain Ang Will MD [address] [place] [address] Phone: tel: fax: Referral ID Status Reason Start Date Expiration Date V isits Requested Visits Authorized [id number] Authorized 05/05/2025 11/04/2026 1 1 Reason for Visit * Reason Comments Abdominal Pain * Auth/Cert (Routine) Specialty Diagnoses / Procedures Referred By Contarjun t Referred To Contact Diagnoses Abdominal pain Liver Cancer Britney Rai MD [address] [place] [address] Phone: tel: fax: PAV A Inpatient [address] [place] [address] Referral ID Status Reason Start Date Expiration Date Visits Re quested Visits Authorized [id number] 1 1 Encounter Details Date Type Department Care Team (Latest Contact Info) Description 05/01/2025 4:53 PM EDT - 05/05/2025 2:45 PM EDT Hospital Encounter P[facility] A Inpatient [address] [place] [address] Willy Saleh MD [address] [place] [address] Britney Rai MD [address] [place] [address] Ang Will MD [address] [place] [address] Generalized abdominal pain (Primary Dx); [...] time in the past 12 m [facility], were you homeless or living in a assisted (including now)? No 05/02/2025 [facility] Utilities Answer Date Recorded In the [...] Will MD PCP name and Address: Pcp, [address] [address] Referring provider name and address: Cr Lazo MD [address] [place] [address] Chief Concern, Brief History of Present Illness, and Hospital Course Rl Steward is a 65 y.o. male PMHx of COPD, tobacco dependence, ischemic heart disease, coronaryartery disease, anxiety, depression, chronic back pain, decompensated cirrhosis, and newly diagnosed hepatocellular carcinoma that presented to the emergency department as a transfer from [facility] with RUQ pain and concern for cholecystitis [...] #Cancer related pain (POA0 -Receiving chemotherapy at [facility]. Last dose of chemo was on 03/29. [...] overall morbidity & mortality. -Monitor albumin -Consult Digital Content Specialist -Continue megace #Nicotine dependence (POA) -Smokes about [...] Ellipta 100-62.5-25 MCG/ACT aerosol powder Generic drug: Jhojzjlwcxj-Zjxtqhvoa-Dtmdwi INHALE 1 PUFF INTO THE LUNGS DAILY [...] Flowsheets (Taken 05/05/2025 0921) Pain Management Interventions: otlamr-wvd-lthez dosing utilized medication (see MAR) care clustered [...] Flowsheets (Taken 05/05/2025 0921) Pain Management Interventions: uysetw-qde-hvpuq dosing utilized medication (see MAR) care clustered [...] Flowsheets (Taken 05/05/2025 0921) Pain Management Interventions: mkxfeo-bgk-nmlsj dosing utilized medication (see MAR) care clustered [...] Comfort Flowsheets (Taken 05/05/202548) Pain Management Interventions: gofzqm-xmx-zwnug dosing utilized care clustered pain management plan [...] Plan Flowsheets (Taken 05/05/202548) Pain Management Interventions: fhjhby-mzj-cthzg dosing utilized care clustered pain management plan [...] Inhalation, 4x daily PRN, Crane, Lexi L, HAND SINGER calcium carbonate (Tums) chewable tablet 500 mg, 500 mg, Oral, q4h PRN, Crane, Lexi L, HAND SINGER cyclobenzaprine (Flexeril) tablet 5 mg, 5 mg, Oral, BID PRN, Crane, Lexi L, HAND SINGER, 5 mg at 736 escitalopram (Lexapro) tablet 20 mg, 20 mg, Oral, Daily, Crane, Lexi L, HAND SINGER, 20 mg at 05/04/25826 furosemide (Lasix) tablet 20 mg, 20 mg, Oral, Daily, Crane, Lexi L, HAND SINGER, 20 mg at 09/05/25 0827 HYDROmorphone (Dilaudid) injection 0.5 mg, 0.5 mg, Intravenous, q4h PRN, Rosa Maria Lexi L, HAND SINGER, 0.5 mg at 05/04/25 1405 HYDROmorphone (Dilaudid) tablet 3 mg, 3 mg, Oral, q4h PRN, Rosa Maria Lexi L, HAND SINGER, 3 mg at 05/03/25 1615 Tiotropium Lueders Monohydrate (Spiriva Respimat) 2.5 MCG/ACT inhaler 2 puff, 2 puff, Inhalation, Daily, 2 puff at 05/04/25 0828 AND mometasone-formoterol (Dulera 100) 100-5 MCG/ACT inhaler 2 puff, 2 puff, Inhalation, BID, Bhavya Craneoya L, HAND SINGER, 2 puff at 05/04/25 0828 nicotine (Nicoderm CQ) 21 MG/24HR patch 1 patch, 1 patch, Transdermal, Daily, Lexi Crane, HAND SINGER,1 patch at 05/04/25 0827 piperacillin-tazobactam (Zosyn) 4.5 g in sodium chloride 0.9% 100 mL IVPB (vial adapter required), 4.5 g, Intravenous, q6h, Saadia Cranea L, HAND SINGER, Last Rate: 36.7 mL/hr at 05/04/25 1405, 4.5 g at 05/04/25 1405 [COMPLETED] Insert peripheral IV, , , Once AND [COMPLETED] Saline lock IV, , , Once AND sodium chloride 0.9 % flush 10 mL, 10 mL, Intravenous, q12h, 10 mL at 05/04/25 0121 AND sodium chloride 0.9 % flush 10 mL, 10 mL, Intravenous, PRN, Bhavya Craneoya L, HAND SINGER Cosigned by Tremaine Waddell MD at 05/07/2025 [...] the emergency department as a transfer from [facility] with RUQ pain and concern for cholecystitis [...] #Cancer related pain (POA0 -Receiving chemotherapy at [facility]. Last dose of chemo was on 03/29. [...] overall morbidity & mortality. -Monitor albumin -Consult Digital Content Specialist -Continue megace #Nicotine dependence (POA) -Smokes about [...] Note Rl Steward 65 y.o. male CSN: [id number] Admission: 05/01/2025 4:53 PM Primary Problem: Abdominal [...] Inhalation, 4x daily PRN, Crane, Lexi L, HAND SINGER calcium carbonate (Tums) chewable tablet 500 mg, 500 mg, Oral, q4h PRN, Crane, Lexi L, HAND SINGER cyclobenzaprine (Flexeril) tablet 5 mg, 5 mg, Oral, BID PRN, Crane, Lexi L, HAND SINGER, 5 mg at 736 escitalopram (Lexapro) tablet 20 mg, 20 mg, Oral, Daily, Crane, Lexi L, HAND SINGER, 20 mg at 05/03/25 08 furosemide (Lasix) tablet 20 mg, 20 mg, Oral, Daily, Crane, Lexi L, HAND SINGER, 20 mg at 05/03/25 0802 HYDROmorphone (Dilaudid) injection 0.5 mg, 0.5 mg, Intravenous, q4h PRN, Crane, Lexi L, HAND SINGER, 0.5 mg at 05/03/25 1406 HYDROmorphone (Dilaudid) tablet 3 mg, 3 mg, Oral, q4h PRN, Crane, Lexi L, HAND SINGER, 3 mg at 05/02/25 0736 Tiotropium Lueders Monohydrate (Spiriva Respimat) 2.5 MCG/ACT inhaler 2 puff, 2 puff, Inhalation, Daily, 2 puff at 05/03/25 0803 AND mometasone-formoterol (Dulera 100) 100-5 MCG/ACT inhaler 2 puff, 2 puff, Inhalation, BID, Crane, Lexi L, HAND SINGER, 2 puff at 05/03/25 0804 nicotine (Nicoderm CQ) 21 MG/24HR patch 1 patch, 1 patch, Transdermal, Daily, Crane, Lexi L, HAND SINGER,1 patch at 05/03/25 0802 piperacillin-tazobactam (Zosyn) 4.5 g in sodium chloride 0.9% 100 mL IVPB (vial adapter required), 4.5 g, Intravenous, q6h, Crane, Lexi L, HAND SINGER, Last Rate: 36.7 mL/hr at 05/03/25 1230, 4.5 g at 05/03/25 1230 [COMPLETED] Insert peripheral IV, , , Once AND [COMPLETED] Saline lock IV, , , Once AND sodium chloride 0.9 % flush 10 mL, 10 mL, Intravenous, q12h, 10 mL at 05/02/25 2325 AND sodium chloride 0.9 % flush 10 mL, 10 mL, Intravenous, PRN, Crane, Lexi L, HAND SINGER Cosigned by Tremaine Waddell MD at 05/07/2025 [...] the emergency department as a transfer from [facility] with RUQ pain and concern for cholecystitis [...] #Cancer related pain (POA0 -Receiving chemotherapy at [facility]. Last dose of chemo was on 03/29. [...] overall morbidity & mortality. -Monitor albumin -Consult Digital Content Specialist -Continue megace #Nicotine dependence (POA) -Smokes about [...] tobacco dependence, and hepatocellular carcinoma presenting to [facility] on 05/01/2025 with right upper [...] Inhalation 4x daily PRN Crane, Lexi L, HAND SINGER calcium carbonate (Tums) chewable tablet 500 mg 500 mg Oral q4h PRN Crane, Lexi L, HAND SINGER cyclobenzaprine (Flexeril) tablet 5 mg 5 mg Oral BID PRN Rosa Maria Lexi L, HAND SINGER 5 mg at 05/02/25 0736 escitalopram (Lexapro) tablet 20 mg 20 mg Oral Daily Saadia Cranea L, HAND SINGER 20 mg at 05/03/25 0802 furosemide (Lasix) tablet 20 mg 20 mg Oral Daily Crane, Lexi L, HAND SINGER 20 mg at 05/03/25 0802 HYDROmorphone (Dilaudid) injection 0.5 mg 0.5 mg Intravenous q4h PRN Saadia Cranea L, HAND SINGER 0.5 mg at05/03/25 1406 HYDROmorphone (Dilaudid) tablet 3 mg 3 mg Oral q4h PRN Saadia Cranea L, HAND SINGER 3 mg at 05/03/25 1615 Tiotropium Lueders Monohydrate (Spiriva Respimat) 2.5 MCG/ACT inhaler 2 puff 2 puff Inhalation Daily Saadia Cranea Vega, HAND SINGER 2 puff at 05/03/25 0803 And mometasone-formoterol (Dulera 100) 100-5 MCG/ACT inhaler 2 puff 2 puff Inhalation BID Saadia Cranea Vega, HAND SINGER 2 puff at 05/03/25 0804 nicotine (Nicoderm CQ) 21 MG/24HR patch 1 patch 1 patch Transdermal Daily Saadia Cranea Vega, HAND SINGER 1 patch at 05/03/25 0802 piperacillin-tazobactam (Zosyn) 4.5 g in sodium chloride 0.9% 100 mL IVPB (vial adapter required) 4.5 g Intravenous q6h Rosa Maria Lexi Vega, HAND SINGER 36.7 mL/hr at 05/03/25 1230 4.5 g at 09/04/25 1230 sodium chloride 0.9 % flush 10 mL 10 mL Intravenous q12h Lexi Crane, HAND SINGER 10 mL at 05/02/25 2325 And sodium chloride 0.9 % flush 10 mL 10 mL Intravenous PRN Lexi Crane HAND SINGER Cosigned by Kasey Blackwell MD at 05/03/2025 [...] hepatocellular carcinoma. We have been consultedas the urologist physician have concerns that his pain is related [...] patient and his Kasey Blackwell MD, FACS pewter caster Trauma Acute Care Surgery * Significant Event [...] the emergency department as a transfer from [facility] with RUQ pain and concern for cholecystitis [...] #Cancer related pain (POA0 -Receiving chemotherapy at [facility]. Last dose of chemo was on 03/29. [...] overall morbidity & mortality. -Monitor albumin -Consult Digital Content Specialist -Continue megace #Nicotine dependence (POA) -Smokes about [...] Note Rl Steward 65 y.o. male CSN: [id number] Admission: 05/01/2025 4:53 PM Primary Problem: Abdominal pain Health And Human Performance Professor reviewed chart and spoke with patient and spouse at bedside to complete this Initial Case Management Assessment. PCP: Cr Resendez MD in [place], [place] Emergency Contact: Extended Emergency Contact Information Primary Emergency Contact: Ashley Steward [facility] Relation: Spouse Preferred language: Mozambican Nurse Case Management needed? No Insurance: Primary Visit Coverage Payer Plan Sponsor Code Group Number Group Name MEDICARE MEDICARE A & B Primary Visit Coverage Subscriber Subscriber ID Subscriber Name Subscriber SSN Subscriber Address [id number] [id number] [address] [place] [address] Secondary Visit Coverage Payer Plan Sponsor Code Group Number Group Name [place] [facility] Secondary Visit Coverage Subscriber Subscriber ID Subscriber Name Subscriber SSN Subscriber Address [id number] [address] [id number] [address] [place] [address] Patient information: Primary Caregiver: Self Support System: Immediate family Daily Living Activities: Functional Status: Independent Living Arrangements: Spouse/Significant other Type of Residence: Private residence, Multi Level (stays on main floor; 2 steps for entry) [address] [facility] [address] Current DME: Equipment Currently Used at Home: none Income Information: Income/Expense Information: Income meets expenses Anticipated Discharge Date: TBD Patient's Discharge Goal: Return home Assistance Available at Discharge: Spouse & son Discharge Transport: Spouse Follow Up Transport: Spouse/Son Home Health / Home Infusion / Outpatient Dialysis Services: None Living Will/Advance Directive/Power of Press Leader /Guardian: None Additional Comments: Pt confirmed address, EC, and insurance. Pt sees Cr Resendez in [place], [place] for primary care. Pt lives with [...] possible cholecystitis and was subsequently transferred to [facility] for further evaluation. Seen by [...] concerns. Keaton Ponce MD PGY-5 Gastroenterology Fellow [facility] [1] Past Medical History: Diagnosis [...] Daily furosemide, 20 mg, Oral, Daily Tiotropium Lueders Monohydrate, 2 puff, Inhalation, Daily And mometasone-formoterol, [...] the emergency department as a transfer from [facility] with RQU pain. Mr. Steward states that [...] Of note he is receiving chemotherapy at [facility]. He has only received 1 dose of [...] Patient Declined (12/07/2024) Received from [facility] Hunger Vital Sign Within the past 12 months, you worried that your food would run out before you got the money to buymore.: Patient declined Within the past 12 months, the food you bought just didn't last and you didn't have money to get more.: Patient declined Transportation Needs: Patient Declined (12/07/2024) Received from [facility] PRAPARE - Transportation Lack of Transportation (Medical): Patient declined Lack of Transportation (Non-Medical): Patient declined Physical Activity: Not on file Stress: Not on file Social Connections: Not on file Intimate Partner Violence: Not on file Housing Stability: Patient Declined (12/07/2024) Received from [facility] Housing Stability Vital Sign In the [...] Abnormal Ventricular Rate 70 Atrial Rate 70 SC Interval 138 QRSD Interval 86 QT Interval 414 QTC Interval 447 P [place] 50 R [place] -53 T Wave [place] 43 Diagnosis Normal sinus rhythm with sinus [...] the emergency department as a transfer from [facility] with RQU pain and concern for cholecystitis [...] #Cancer related pain (POA0 -Receiving chemotherapy at [facility]. Last dose of chemo was on 03/29. [...] overall morbidity & mortality. -Monitor albumin -Consult Digital Content Specialist -Continue megace #Nicotine dependence (POA) -Smokes about [...] APRN Department of Internal Medicine Division of [facility] Medicine Secure chat preferred Pager: [phone] [1] Past Medical History: Diagnosis Date COPD [...] None Disposition Admit Admitting/Attending Physician: BRITNEY RAI [[id number]] Provider Care Team: JHOANA 14 [[id number]] Are [...] 05/01/2025 4:52 PM EDT Patient presents from [facility] where he was seen for RUQ and [...] - 99 mg/dL 05/04/2025 5:27 AM EDT [facility] BUN, Plasma 11 8 - 23 mg/dL 05/04/2025 5:27 AM EDT [facility] Creatinine, Plasma 0.81 0.70 - 1.20 mg/dL 05/04/2025 5:27 AM EDT [facility] BUN/Creatinine Ratio 14 05/04/2025 5:27 AM EDT [facility] Sodium, Plasma 138 136 - 145 mmol/L 05/04/2025 5:27 AM EDT [facility] Potassium, Plasma 3.3(L) 3.6 - 4.9 mmol/L 05/04/2025 5:27 AM EDT [facility] Chloride, Plasma 106 97 - 107 mmol/L 05/04/2025 5:27 AM EDT [facility] CO2, Plasma 20(L) 22 - 29 mmol/L 05/04/2025 5:27 AM EDT [facility] Anion Gap 12 6 - 16 mmol/L 05/04/2025 5:27 AM EDT [facility] Total Calcium, Plasma 8.5(L) 8.9 - 10.2 mg/dL 05/04/2025 5:27 AM EDT [facility] Total Protein 6.4 6.3 - 7.9 g/dL 05/04/2025 5:27 AM EDT [facility] Albumin, Plasma 2.6(L) 3.5 - 5.2 g/dL 05/04/2025 5:27 AM EDT [facility] AST, Plasma 140(H) 10 - 50 U/L 05/04/2025 5:27 AM EDT [facility] ALT, Plasma 21 10 - 50 U/L 05/04/2025 5:27 AM EDT [facility] Alkaline Phosphatase, Plasma 186(H) 40 - 115 U/L 05/04/2025 5:27 AM EDT [facility] Total Bilirubin, Plasma 2.1(H) 0.2 - 1.1 mg/dL 05/04/2025 5:27 AM EDT [facility] eGFRcr 96.6 mL/min/1.7 3m*2 05/04/2025 5:27 AM EDT [facility] Comment:Reported eGFRcr in m L/min/1.73m2 is based the CKD-EPI 2020 equation that does not use a race coefficient. Blood Venous blood specimen / Unknown Venipuncture / Unknown 05/04/2025 4:33 AM EDT 05/04/2025 4:44 AM EDT us Ang Will MD LAB BLOOD ORDERABLES Courtney vega Result [facility] [address] [place] [address] * (ABNORMAL) CBC W/O Differential (05/04/2025 4:33 AM EDT) WBC Count 4.71 3.70 - 10.30 10*3/uL LAB HEMATOLOGY METHOD 05/04/2025 5:18 AM EDT [facility] RBC Count 4.16(L) 4.60 - 6.10 10*6/uL LAB HEMATOLOGY METHOD 05/04/2025 5:18 AM EDT [facility] HGB 13.1(L) 13.7 - 17.5 g/dL LAB HEMATOLOGY METHOD 05/04/2025 5:18 AM EDT [facility] HCT 38.4(L) 40.0 - 51.0 % LAB HEMATOLOGY METHOD 05/04/2025 5:18 AM EDT [facility] Platelet Count 117(L) 155 - 369 10*3/uL LAB HEMATOLOGY METHOD 05/04/2025 5:18 AM EDT [facility] MCV 92 79 - 98 fL LAB HEMATOLOGY METHOD 05/04/2025 5:18 AM EDT [facility] MCH 31.5 26.0 - 32.0 pg LAB HEMATOLOGY METHOD 05/04/2025 5:18 AM EDT [facility] MCHC 34.1 30.7 - 35.5 g/dL LAB HEMATOLOGY METHOD 05/04/2025 5:18 AM EDT [facility] RDW 15.5(H) 11.5 - 14.5 % LAB HEMATOLOGY METHOD 05/04/2025 5:18 AM EDT [facility] MPV 11.5 8.8 - 12.5 fL LAB HEMATOLOGY METHOD 05/04/2025 5:18 AM EDT [facility] nRBC 0.0 <=0.0 per 100 WBCs LAB HEMATOLOGY METHOD 05/04/2025 5:18 AM EDT [facility] Blood Venous blood specimen / Unknown Venipuncture / Unknown 05/04/2025 4:33 AM EDT 05/04/2025 4:45 AM EDT Ang Will MD LAB BLOOD ORDERABLES Courtney l Result Performing Organization Address City/[facility]/ZIP Co de Phone Number [facility] [address] [place] [address] * (ABNORMAL) Creatine Kinase, Total, Plasma (05/04/2025 4:33 AM EDT) Creatine Kinase, Plasma 33(L) 49 - 320 U/L 05/04/2025 5:27 AM EDT [facility] Blood Venous blood specimen / Unknown Venipuncture / Unknown 05/04/2025 4:33 AM EDT 05/04/2025 4:44 AM EDT Ang Will MD LAB BLOOD ORDERABLES Courtney l Result Performing Organization Address [facility] [place] [address] * Phosphatidylethanol (PEth), Whole Blood, Quantitative (05/04/2025 4:33 AM EDT) Pathologist [facility] PEth 16:0/18:2 (PLPEth) <10 ng/mL 05/06/2025 12:20 PM EDT [facility] ([facility]) PEth 16:0/18:1 (POPEth) <10 ng/mL 05/06/2025 12:20 PM EDT [facility] ([facility]) EER Peth See Note 05/06/2025 12:20 PM EDT [facility] ([facility]) PEth Interpretation See Comment 05/06/2025 12:20 PM EDT [facility] ([facility]) Blood Venous blood specimen / Unknown Venipuncture / Unknown 05/04/2025 4:33 AM EDT 05/04/2025 4:42 AM EDT Narrative [facility] ([facility]) - 05/06/2025 12:20 PM EDT PEth 16:0/18:1 (POPEth) Less than 10 ng/mL............Not detected Less than 20 ng/mL............Abstinence or light alcohol consumption 20 - 200 ng/mL................Moderate alcohol consumption Greater than 200 ng/mL........Heavy alcohol consumption or chronic alcohol use (Reference: Hannah Correa and Trice Azevedo 2018 J. Forensic Sci) Reference ranges are not well established. Authorized individuals can access the [employer] Enhanced Report with an [employer] Connect account using the following link. Your local lab can assist you in obtaining the patient report if you don't have a Connect account. [email or web address] Phosphatidylethanol (PEth) is a group of phospholipids [...] developed and its performance characteristics determined by [facility]. It has not been cleared or approved by the U.S. Food and Drug Administration. This test was performed in a CLIA-certified laboratory and is intended for clinical purposes. Performed By: [facility] [address] [place] [id number] Speeder Worker: David Marx MD, PhD CLIA Number: [id number] us Ang Will MD LAB REF LAB BLOOD AND FLU ID ORD Final Result [facility]) [place] [address] * (ABNORMAL) Comprehensive metabolic panel (05/03/2025 4:00 AM EDT) Glucose, Plasma 96 74 - 99 mg/dL 05/03/2025 4:51 AM EDT [facility] BUN, Plasma 13 8 - 23 mg/dL 05/03/2025 4:51 AM EDT [facility] Creatinine, Plasma 0.86 0.70 - 1.20 mg/dL 05/03/2025 4:51 AM EDT [facility] BUN/Creatinine Ratio 15 05/03/2025 4:51 AM EDT [facility] Sodium, Plasma 137 136 - 145 mmol/L 05/03/2025 4:51 AM EDT [facility] Potassium, Plasma 3.6 3.6 - 4.9 mmol/L 05/03/2025 4:51 AM EDT [facility] Chloride, Plasma 103 97 - 107 mmol/L 05/03/2025 4:51 AM EDT [facility] CO2, Plasma 22 22 - 29 mmol/L 05/03/2025 4:51 AM EDT [facility] Anion Gap 12 6 - 16 mmol/L 05/03/2025 4:51 AM EDT [facility] Total Calcium, Plasma 9.0 8.9 - 10.2 mg/dL 05/03/2025 4:51 AM EDT [facility] Total Protein 7.1 6.3 - 7.9 g/dL 05/03/2025 4:51 AM EDT [facility] Albumin, Plasma 3.0(L) 3.5 - 5.2 g/dL 05/03/2025 4:51 AM EDT [facility] AST, Plasma 205(H) 10 - 50 U/L 05/03/2025 4:51 AM EDT [facility] Comment:Hemolyzed, result ma y be falsely increased. ALT, Plasma 23 10 - 50 U/L 05/03/2025 4:51 AM EDT [facility] Alkaline Phosphatase, Plasma 220(H) 40 - 115 U/L 05/03/2025 4:51 AM EDT [facility] Total Bilirubin, Plasma 1.7(H) 0.2 - 1.1 mg/dL 05/03/2025 4:51 AM EDT [facility] eGFRcr 94.9 mL/min/1.7 3m*2 05/03/2025 4:51 AM EDT [facility] Comment:Reported eGFRcr in m L/min/1.73m2 is based the CKD-EPI 2020 equation that does not use a race coefficient. Blood Venous blood specimen / Unknown Venipuncture / Unknown 05/03/2025 4:00 AM EDT 05/03/2025 4:21 AM EDT Ang Will MD LAB BLOOD ORDERABLES Courtney ferrari Result [facility] [address] [place] [address] * (ABNORMAL) CBC W/O Differential (05/03/2025 4:00 AM EDT) WBC Count 5.46 3.70 - 10.30 10*3/uL LAB HEMATOLOGY METHOD 05/03/2025 4:34 AM EDT [facility] RBC Count 4.39(L) 4.60 - 6.10 10*6/uL LAB HEMATOLOGY METHOD 05/03/2025 4:34 AM EDT [facility] HGB 14.0 13.7 - 17.5 g/dL LAB HEMATOLOGY METHOD 05/03/2025 4:34 AM EDT [facility] HCT 41.1 40.0 - 51.0 % LAB HEMATOLOGY METHOD 05/03/2025 4:34 AM EDT [facility] Platelet Count 122(L) 155 - 369 10*3/uL LAB HEMATOLOGY METHOD 05/03/2025 4:34 AM EDT [facility] MCV 94 79 - 98 fL LAB HEMATOLOGY METHOD 05/03/2025 4:34 AM EDT [facility] MCH 31.9 26.0 - 32.0 pg LAB HEMATOLOGY METHOD 05/03/2025 4:34 AM EDT [facility] MCHC 34.1 30.7 - 35.5 g/dL LAB HEMATOLOGY METHOD 05/03/2025 4:34 AM EDT [facility] RDW 15.3(H) 11.5 - 14.5 % LAB HEMATOLOGY METHOD 05/03/2025 4:34 AM EDT [facility] MPV 12.5 8.8 - 12.5 fL LAB HEMATOLOGY METHOD 05/03/2025 4:34 AM EDT [facility] nRBC 0.0 <=0.0 per 100 WBCs LAB HEMATOLOGY METHOD 05/03/2025 4:34 AM EDT [facility] Blood Venous blood specimen / Unknown Venipuncture / Unknown 05/03/2025 4:00 AM EDT 05/03/2025 4:24 AM EDT us Ang Will MD LAB BLOOD ORDERABLES Courtney l Result [facility] [address] [place] [address] * (ABNORMAL) Bilirubin, direct (05/02/2025 1:42 PM EDT) Direct Bilirubin, Plasma 0.7(H) <=0.3 mg/dL 05/02/2025 2:51 PM EDT [facility] Blood Venous blood specimen / Unknown Venipuncture / Unknown 05/02/2025 1:42 PM EDT 05/02/2025 2:10 PM EDT us Ang Will MD LAB BLOOD ORDERABLES Courtney l Result [facility] [address] [place] [address] * (ABNORMAL) Bilirubin, direct (05/02/2025 2:07 AM EDT) Direct Bilirubin, Plasma 1.1(H) <=0.3 mg/dL 05/02/2025 3:20 PM EDT [facility] Blood Venous blood specimen / Unknown Venipuncture / Unknown 05/02/2025 2:07 AM EDT 05/02/2025 2:20 AM EDT Ang Will MD LAB BLOOD ORDERABLES Courtney l Result Performing Organization Address [facility] [place]/[facility]/ZIP Co de Phone Number [facility] [address] [place] [address] * (ABNORMAL) Lactate, venous (05/02/2025 2:07 AM EDT) Lactate, Venous, Whole Blood 3.0(H) 0.5 - 2.2 mmol/L LAB HEMATOLOGY METHOD 05/02/2025 2:21 AM EDT [facility] Blood Venous blood specimen / Unknown Venipuncture / Unknown 05/02/2025 2:07 AM EDT 05/02/2025 2:19 AM EDT us Lexi Crane APRN LAB BLOOD ORDERABLES Final Re sult Performing Organization Address [facility] [place]/[facility]/ZIP Co de Phone Number [facility] [address] [place] [address] * (ABNORMAL) Prothrombin Time/INR (05/02/2025 2:07 AM EDT) Prothrombin Time 14.5(H) 12.0 - 14.3 sec LAB COAGULATION METHOD 05/02/2025 2:44 AM EDT [facility] INR 1.1 0.9 - 1.1 LAB COAGULATION METHOD 05/02/2025 2:44 AM EDT [facility] Blood Venous blood specimen / Unknown Venipuncture / Unknown 05/02/2025 2:07 AM EDT 05/02/2025 2:20 AM EDT Narrative [facility] - 05/02/2025 2:44 AM EDT OPTIMAL INR RANGES FOR PATIENT ON ORAL ANTICOAGULANT THERAPY Prevention of venous thromboembolism INR 2.0 to 3.0 In patients with heart disease: Atrial fibrillation INR 2.0 to 3.0 Valvular heart disease INR 2.0 to 3.0 Tissue heart valves INR 2.0 to 3.0 Mechanical prosthetic valves INR 2.5 to 3.5 Prevention of recurrent PR INR 2.5 to 3.5 us Lexi Crane HAND SINGER LAB BLOOD ORDERABLES Final Re sult [facility] [address] [place] [address] * (ABNORMAL) Comprehensive metabolic panel (05/02/2025 2:07 AM EDT) Glucose, Plasma 106(H) 74 - 99 mg/dL 05/02/2025 2:51 AM EDT [facility] BUN, Plasma 16 8 - 23 mg/dL 05/02/2025 2:51 AM EDT [facility] Creatinine, Plasma 0.84 0.70 - 1.20 mg/dL 05/02/2025 2:51 AM EDT [facility] BUN/Creatinine Ratio 19 05/02/2025 2:51 AM EDT [facility] Sodium, Plasma 136 136 - 145 mmol/L 05/02/2025 2:51 AM EDT [facility] Potassium, Plasma 3.8 3.6 - 4.9 mmol/L 05/02/2025 2:51 AM EDT [facility] Chloride, Plasma 101 97 - 107 mmol/L 05/02/2025 2:51 AM EDT [facility] CO2, Plasma 25 22 - 29 mmol/L 05/02/2025 2:51 AM EDT [facility] Anion Gap 10 6 - 16 mmol/L 05/02/2025 2:51 AM EDT [facility] Total Calcium, Plasma 9.1 8.9 - 10.2 mg/dL 05/02/2025 2:51 AM EDT [facility] Total Protein 6.5 6.3 - 7.9 g/dL 05/02/2025 2:51 AM EDT [facility] Albumin, Plasma 2.8(L) 3.5 - 5.2 g/dL 05/02/2025 2:51 AM EDT [facility] AST, Plasma 241(H) 10 - 50 U/L 05/02/2025 2:51 AM EDT [facility] ALT, Plasma 23 10 - 50 U/L 05/02/2025 2:51 AM EDT [facility] Alkaline Phosphatase, Plasma 200(H) 40 - 115 U/L 05/02/2025 2:51 AM EDT [facility] Total Bilirubin, Plasma 2.6(H) 0.2 - 1.1 mg/dL 05/02/2025 2:51 AM EDT [facility] eGFRcr 95.6 mL/min/1.7 3m*2 05/02/2025 2:51 AM EDT [facility] Comment:Reported eGFRcr in m L/min/1.73m2 is based the CKD-EPI 2020 equation that does not use a race coefficient. Blood Venous blood specimen / Unknown Venipuncture / Unknown 05/02/2025 2:07 AM EDT 05/02/2025 2:20 AM EDT us Lexi Crane APRN LAB BLOOD ORDERABLES Final Re sult [facility] [address] [place] [address] * (ABNORMAL) CBC and differential (05/02/2025 2:07 AM EDT) WBC Count 6.14 3.70 - 10.30 10*3/uL LAB HEMATOLOGY METHOD 05/02/2025 2:31 AM EDT [facility] RBC Count 4.15(L) 4.60 - 6.10 10*6/uL LAB HEMATOLOGY METHOD 05/02/2025 2:31 AM EDT [facility] HGB 13.3(L) 13.7 - 17.5 g/dL LAB HEMATOLOGY METHOD 05/02/2025 2:31 AM EDT [facility] HCT 39.3(L) 40.0 - 51.0 % LAB HEMATOLOGY METHOD 05/02/2025 2:31 AM EDT [facility] Platelet Count 126(L) 155 - 369 10*3/uL LAB HEMATOLOGY METHOD 05/02/2025 2:31 AM EDT [facility] MCV 95 79 - 98 fL LAB HEMATOLOGY METHOD 05/02/2025 2:31 AM EDT [facility] MCH 32.0 26.0 - 32.0 pg LAB HEMATOLOGY METHOD 05/02/2025 2:31 AM EDT [facility] MCHC 33.8 30.7 - 35.5 g/dL LAB HEMATOLOGY METHOD 05/02/2025 2:31 AM EDT [facility] RDW 15.1(H) 11.5 - 14.5 % LAB HEMATOLOGY METHOD 05/02/2025 2:31 AM EDT [facility] MPV 11.9 8.8 - 12.5 fL LAB HEMATOLOGY METHOD 05/02/2025 2:31 AM EDT [facility] nRBC 0.0 <=0.0 per 100 WBCs LAB HEMATOLOGY METHOD 05/02/2025 2:31 AM EDT [facility] Differential Type Automated LAB HEMATOLOGY METHOD 05/02/2025 2:31 AM EDT [facility] Neutrophils % 65 % LAB HEMATOLOGY METHOD 05/02/2025 2:31 AM EDT [facility] Lymphocytes % 20 % LAB HEMATOLOGY METHOD 05/02/2025 2:31 AM EDT [facility] Monocytes % 13 % LAB HEMATOLOGY METHOD 05/02/2025 2:31 AM EDT [facility] Eosinophils % 1 % LAB HEMATOLOGY METHOD 05/02/2025 2:31 AM EDT [facility] Basophils % 0 % LAB HEMATOLOGY METHOD 05/02/2025 2:31 AM EDT [facility] Immature Granulocytes % 1 % LAB HEMATOLOGY METHOD 05/02/2025 2:31 AM EDT [facility] Neutrophils Absolute 4.00 1.60 - 6.10 10*3/uL LAB HEMATOLOGY METHOD 05/02/2025 2:31 AM EDT [facility] Lymphocytes Absolute 1.22 1.20 - 3.90 10*3/uL LAB HEMATOLOGY METHOD 05/02/2025 2:31 AM EDT [facility] Monocytes Absolute 0.79 0.30 - 0.90 10*3/uL LAB HEMATOLOGY METHOD 05/02/2025 2:31 AM EDT [facility] Eosinophils Absolute 0.07 0.00 - 0.50 10*3/uL LAB HEMATOLOGY METHOD 05/02/2025 2:31 AM EDT [facility] Basophils Absolute 0.02 0.00 - 0.10 10*3/uL LAB HEMATOLOGY METHOD 05/02/2025 2:31 AM EDT [facility] Immature Granulocytes Absolute 0.04 0.00 - 0.06 10*3/uL LAB HEMATOLOGY METHOD 05/02/2025 2:31 AM EDT [facility] Blood Venous blood specimen / Unknown Venipuncture / Unknown 05/02/2025 2:07 AM EDT 05/02/2025 2:20 AM EDT Narrative [facility] - 05/02/2025 2:31 AM EDT Therapeutic decision making should be based on absolute values, rather than percentages. us Lexi Crane APRN LAB BLOOD ORDERABLES Final Re sult [facility] [address] [place] [address] * US Abdomen RUQ (05/01/2025 7:43 PM [...] 05/01/2025 8:43 PM Willy Saleh MD [facility] US PROCEDURES Final Result * Type and [...] TEST ORDERABLES Final Result BLOOD BANK [address] [place] [address], [place] * (ABNORMAL) Lactic acid, venous (05/01/2025 5:54 PM EDT) Lactate, Venous, Whole Blood 2.5(H) 0.5 - 2.2 mmol/L LAB HEMATOLOGY METHOD 05/01/2025 6:12 PM EDT [facility] Blood Venous blood specimen / Unknown Venipuncture / Unknown 05/01/2025 5:54 PM EDT 05/01/2025 6:08 PM EDT Willy Saleh MD LAB BLOOD ORDERABLES Final Resu lt [facility] [address] [place] [address] * (ABNORMAL) Lipase (05/01/2025 5:54 PM EDT) Lipase, Plasma 11(L) 19 - 63 U/L 05/01/2025 6:22 PM EDT [facility] Blood Venous blood specimen / Unknown Venipuncture / Unknown 05/01/2025 5:54 PM EDT 05/01/2025 5:58 PM EDT Willy Saleh MD LAB BLOOD ORDERABLES Final Resu lt [facility] [address] [place] [address] * Magnesium (05/01/2025 5:54 PM EDT) Magnesium, Plasma 1.9 1.9 - 2.4 mg/dL 05/01/2025 6:22 PM EDT [facility] Blood Venous blood specimen / Unknown Venipuncture / Unknown 05/01/2025 5:54 PM EDT 05/01/2025 5:58 PM EDT Willy Saleh MD LAB BLOOD ORDERABLES Final Resu lt [facility] [address] [place] [address] * (ABNORMAL) CMP (05/01/2025 5:54 PM EDT) Glucose, Plasma 93 74 - 99 mg/dL 05/01/2025 6:22 PM EDT [facility] BUN, Plasma 16 8 - 23 mg/dL 05/01/2025 6:22 PM EDT [facility] Creatinine, Plasma 0.82 0.70 - 1.20 mg/dL 05/01/2025 6:22 PM EDT [facility] BUN/Creatinine Ratio 20 05/01/2025 6:22 PM EDT [facility] Sodium, Plasma 137 136 - 145 mmol/L 05/01/2025 6:22 PM EDT [facility] Potassium, Plasma 4.0 3.6 - 4.9 mmol/L 05/01/2025 6:22 PM EDT [facility] Chloride, Plasma 101 97 - 107 mmol/L 05/01/2025 6:22 PM EDT [facility] CO2, Plasma 22 22 - 29 mmol/L 05/01/2025 6:22 PM EDT [facility] Anion Gap 14 6 - 16 mmol/L 05/01/2025 6:22 PM EDT [facility] Total Calcium, Plasma 8.7(L) 8.9 - 10.2 mg/dL 05/01/2025 6:22 PM EDT [facility] Total Protein 6.6 6.3 - 7.9 g/dL 05/01/2025 6:22 PM EDT [facility] Albumin, Plasma 2.7(L) 3.5 - 5.2 g/dL 05/01/2025 6:22 PM EDT [facility] AST, Plasma 248(H) 10 - 50 U/L 05/01/2025 6:22 PM EDT [facility] ALT, Plasma 22 10 - 50 U/L 05/01/2025 6:22 PM EDT [facility] Alkaline Phosphatase, Plasma 208(H) 40 - 115 U/L 05/01/2025 6:22 PM EDT [facility] Total Bilirubin, Plasma 2.2(H) 0.2 - 1.1 mg/dL 05/01/2025 6:22 PM EDT [facility] eGFRcr 96.3 mL/min/1.7 3m*2 05/01/2025 6:22 PM EDT [facility] Comment:Reported eGFRcr in m L/min/1.73m2 is based the CKD-EPI 2020 equation that does not use a race coefficient. Blood Venous blood specimen / Unknown Venipuncture / Unknown 05/01/2025 5:54 PM EDT 05/01/2025 5:58 PM EDT Willy Saleh MD LAB BLOOD ORDERABLES Final Resu lt Performing Organization Address [facility] [place]/[facility] Co de Phone Number [facility] [address] [place] [address] * (ABNORMAL) PT-INR (05/01/2025 5:54 PM EDT) Prothrombin Time 14.4(H) 12.0 - 14.3 sec 05/01/2025 6:13 PM EDT [facility] INR 1.1 0.9 - 1.1 05/01/2025 6:13 PM EDT [facility] Blood Venous blood specimen / Unknown Venipuncture / Unknown 05/01/2025 5:54 PM EDT 05/01/2025 5:58 PM EDT Narrative [facility] - 05/01/2025 6:13 PM EDT OPTIMAL INR RANGES FOR PATIENT ON ORAL ANTICOAGULANT THERAPY Prevention of venous thromboembolism INR 2.0 to 3.0 In patients with heart disease: Atrial fibrillation INR 2.0 to 3.0 Valvular heart disease INR 2.0 to 3.0 Tissue heart valves INR 2.0 to 3.0 Mechanical prosthetic valves INR 2.5 to 3.5 Prevention of recurrent PR INR 2.5 to 3.5 Willy Saleh MD LAB BLOOD ORDERABLES Final Resu lt Performing Organization Address City/[facility]/ZIP Co de Phone Number [facility] [address] [place] [address] * (ABNORMAL) CBC w/diff (05/01/2025 5:54 PM EDT) WBC Count 6.23 3.70 - 10.30 10*3/uL LAB HEMATOLOGY METHOD 05/01/2025 6:05 PM EDT [facility] RBC Count 4.08(L) 4.60 - 6.10 10*6/uL LAB HEMATOLOGY METHOD 05/01/2025 6:05 PM EDT [facility] HGB 13.2(L) 13.7 - 17.5 g/dL LAB HEMATOLOGY METHOD 05/01/2025 6:05 PM EDT [facility] HCT 37.8(L) 40.0 - 51.0 % LAB HEMATOLOGY METHOD 05/01/2025 6:05 PM EDT [facility] Platelet Count 118(L) 155 - 369 10*3/uL LAB HEMATOLOGY METHOD 05/01/2025 6:05 PM EDT [facility] MCV 93 79 - 98 fL LAB HEMATOLOGY METHOD 05/01/2025 6:05 PM EDT [facility] MCH 32.4(H) 26.0 - 32.0 pg LAB HEMATOLOGY METHOD 05/01/2025 6:05 PM EDT [facility] MCHC 34.9 30.7 - 35.5 g/dL LAB HEMATOLOGY METHOD 05/01/2025 6:05 PM EDT [facility] RDW 15.0(H) 11.5 - 14.5 % LAB HEMATOLOGY METHOD 05/01/2025 6:05 PM EDT [facility] MPV 11.1 8.8 - 12.5 fL LAB HEMATOLOGY METHOD 05/01/2025 6:05 PM EDT [facility] nRBC 0.0 <=0.0 per 100 WBCs LAB HEMATOLOGY METHOD 05/01/2025 6:05 PM EDT [facility] Differential Type Automated LAB HEMATOLOGY METHOD 05/01/2025 6:05 PM EDT [facility] Neutrophils % 59 % LAB HEMATOLOGY METHOD 05/01/2025 6:05 PM EDT [facility] Lymphocytes % 21 % LAB HEMATOLOGY METHOD 05/01/2025 6:05 PM EDT [facility] Monocytes % 16 % LAB HEMATOLOGY METHOD 05/01/2025 6:05 PM EDT [facility] Eosinophils % 2 % LAB HEMATOLOGY METHOD 05/01/2025 6:05 PM EDT [facility] Basophils % 1 % LAB HEMATOLOGY METHOD 05/01/2025 6:05 PM EDT [facility] Immature Granulocytes % 1 % LAB HEMATOLOGY METHOD 05/01/2025 6:05 PM EDT [facility] Neutrophils Absolute 3.70 1.60 - 6.10 10*3/uL LAB HEMATOLOGY METHOD 05/01/2025 6:05 PM EDT [facility] Lymphocytes Absolute 1.33 1.20 - 3.90 10*3/uL LAB HEMATOLOGY METHOD 05/01/2025 6:05 PM EDT [facility] Monocytes Absolute 0.98(H) 0.30 - 0.90 10*3/uL LAB HEMATOLOGY METHOD 05/01/2025 6:05 PM EDT [facility] Eosinophils Absolute 0.13 0.00 - 0.50 10*3/uL LAB HEMATOLOGY METHOD 05/01/2025 6:05 PM EDT [facility] Basophils Absolute 0.04 0.00 - 0.10 10*3/uL LAB HEMATOLOGY METHOD 05/01/2025 6:05 PM EDT [facility] Immature Granulocytes Absolute 0.05 0.00 - 0.06 10*3/uL LAB HEMATOLOGY METHOD 05/01/2025 6:05 PM EDT [facility] Blood Venous blood specimen / Unknown Venipuncture / Unknown 05/01/2025 5:54 PM EDT 05/01/2025 5:58 PM EDT Narrative [facility] - 05/01/2025 6:05 PM EDT Therapeutic decision making should be based on absolute values, rather than percentages. us Willy Saleh MD LAB BLOOD ORDERABLES Final Resu lt [facility] [address] [place] [address] * EKG now - STAT (adult) (05/01/2025 5:43 PM EDT) EKG DIAGNOSIS CLASS Abnormal MUSE ECG Ventricular Rate 70 BPM MUSE ECG Atrial Rate 70 BPM MUSE ECG SC Interval 138 ms MUSE ECG QRSD Interval 86 ms MUSE ECG QT Interval 414 ms MUSE ECG QTC Interval 447 ms MUSE ECG P [place] 50 degrees MUSE ECG R [place] -53 degrees MUSE ECG T Wave [place] 43 degrees MUSE ECG Diagnosis Normal sinus rhythm with sinus arrhythmia MUSE ECG Diagnosis Left axis deviation MUSE ECG Diagnosis Anterior infarct , age undetermined MUSE ECG Diagnosis T wave abnormality, consider lateral ischemia MUSE ECG Diagnosis MUSE ECG Diagnosis MUSE ECG Diagnosis Confirmed by Jordyn Pompa ([id number]) on 05/02/2025 3:24:55 PM MUSE ECG 05/01/2025 [...] 05/04/2025 12:29 PM EDT 4.01 millicuries Tiotropium Lueders Monohydrate (Spiriva Respimat) 2.5 MCG/ACT inhaler 2 [...] NM Protocol Orders 1229 (Given - Provider: Elisoe Cueva) Tiotropium Lueders Monohydrate (Spiriva Respimat) 2.5 MCG/ACT inhaler 2 [...] care Linked Groups Order Group 1: Tiotropium Lueders Monohydrate (Spiriva Respimat) 2.5 MCG/ACT inhaler 2 [...] documented as of this encounter Care Teams Health Counselor Relationship Specialty Start Date End Date Pcp, No [address] [place] [address] PCP - General Family Medicine 03/20/25 Isabella Saucedo APRN [address] [facility] [address] [place] [address] Referring Physician 02/26/25 Jeannie Mcmillan RN [facility] [address] [place] [address] Registered Nurse Transplant Surgery 03/08/25 [place] [address] Registered Nurse Transplant Surgery 03/08/25 Rodney Gonzáles MD [address] [facility] [address] [place] [address] Medical Oncologist 04/10/25 documented as of this encounter
--- OUTSIDE RECORDS SUMMARY | 2025-05-29 12:05 | XMS_ITS | Clinical Summary ---
Author Organization [facility] Address [address] [facility] [address] [place] [id number] Phone Care Team Providers Care Electrician Wiring Name Role Phone Leander RIOS, [facility] Conditions or Problems Problem Name Problem Code Onset Date Status Entry Date Provider Comment Standard Description Annotate FOLLOW-UP EXAMINATION FOLLOWING OTHER SURGERY Z09 (ICD-10-CM) 10/20 Active 10/20 Emily Kern MA Encounter for follow-up examination after completed treatment for conditions other than malignant neoplasm BACK PAIN, LUMBAR, WITH RADICULOPATHY [id number] (SNOMED CT) Active Emily Kern MA Lumbar radiculopathy Medications Medication Instructions Start Date Stop Date Generic Name [facility] Provider MELOXICAM 15 MG TABS 1 daily Non-[place] 8 MELOXICAM [id number] Emily Kern MA METOPROLOL TARTRATE 25 MG TABS 1 daily Non-[place] 8 METOPROLOL TARTRATE [id number] Emily Kern MA PRAVASTATIN SODIUM 40 MG TABS 1 daily Non-[place] 8 PRAVASTATIN SODIUM [id number] Emily Wilsonriccardo WILL PLAVIX 75 MG TABS 1 daily Non-[place] 8 CLOPIDOGREL BISULFATE [id number] Emiyl Wilsonriccardo WILL LISINOPRIL 5 MG TABS 1 daily Non-[place] 8 LISINOPRIL [id number] Emily Wilsonriccardo WILL ASPIRIN ADULT LOW STRENGTH 81 MG TBEC 1 daily Non-[place] 8 ASPIRIN [id number] Emilynathaniel Kern MA ALPRAZOLAM 1 MG TABS 1 qhs Non-[place] 8 ALPRAZOLAM [id number] Emily Kern MA HYDROCODONE-BRENNAN TAMINOPHEN 10-650 MG ORAL TABLET 1 qid Non-[place] 8 HYDROCODONE-AC ETAMINOPHEN [id number] Emily Kern MA GABAPENTIN 600 MG TABS 2 q morning & 3 q evening [facility] 8 GABAPENTIN [id number] Emily Kern MA RANEXA 500 MG ORAL TABLET EXTENDED RELEASE 12 HOUR 1 bid [facility] 8 RANOLAZINE [phone] Emily Kern MA Medications Administered No information [...]
--- OUTSIDE RECORDS SUMMARY | 2025-05-29 12:06 | XMS_ITS | Encounter Summary ---
Author Organization [place] [address] Care Team Providers Care Project Leader Name Role Phone Jan Sin MD Unavailable [phone] Macario Pryor MD Unavailable Unavailabl e Cr Resendez MD Primary Care Provider [phone] Encounter Details Date Type Department Care Team (Latest Contact Info) Description 04/24/2025 Results Follow-Up SEP Luis [address] [place] [address] Cr Resendez MD [address] [place] [address] [place] [address] HEMOGLOBIN A1C, COMPREHENSIVE METABOLIC PANEL, CBC [...] [facility]. A1c was slightly elevated in [...] as of this encounter Care Teams Project Leader Relationship Specialty Start Date End Date Macario Pryor MD [address] [place] [address] [place] [address] PCP - Hematology/Oncology Internal Medicine-Medical Oncology 11/12/15 Cr Resendez MD [address] [place] [address] [place] [address] PCP - General Family Medicine 11/24/21 Jan Sin MD [address] [place] [address] [place] [address] Internal Medicine-Cardiovascul ar Disease 08/28/14 documented as of this encounter
--- OUTSIDE RECORDS SUMMARY | 2025-05-29 12:06 | XMS_ITS | Clinical Summary ---
Author Organization [facility] Address [address] [place] [address] Phone Care Team Providers Care Senior Electrical Controls Engineer Name Role Phone Jan Sin MD Unavailable [phone] Macario Pryor MD Unavailable [facility] Watkins MD Primary Care Provider [phone] Allergies Active Allergy Reactions Criticality Noted Date [...] 25 Active nalOXone (NARCAN) 4 mg/actuation Nasl [place], Non-Aerosol 0.1 mL by Nasal route daily [...] times daily. 30 g 05/18/20 25 Active clotrimazole (LOTRIMIN) 1 % Top CreamIndications: Candidiasis of penis Apply topically 2 times daily. 24 g 12/28/19 25 025 Discontinued Active Problems Patient Care Coordination No te Formatting of this note migh t be different from the original. cstahillary soap contracts signed 04/19/12 [facility]05/01/15 #[id number] [facility] 12/12/15 ,02/28/16 [id number],04/09/16 [id number], 11/27/16 [facility] 06/08/14,12/12/15, 10/02/16 Problem Noted Date Diagnosed Date Hepatocellular carcinoma 04/23/2025 Assessment & Plan (04/23/2025 9:20 AM EDT): Under treatment with GI and oncology at [facility]. On once monthly chemotherapy at [...] (12/01/2022): Added automatically from request for surgery [id number] Mixed simple and mucopurulent chronic bronchitis 11/26/2022 Assessment & Plan (04/23/2025 9:20 AM EDT): Stable on Trelegy continue current regiment Assessment & Plan (12/21/2024 9:37 AM EDT): Orders: BASIC METABOLIC PANEL; Future Assessment & Plan (09/07/2024 10:49 AM EST): Orders: ioenljjvzes-aigmcvbat-sghlpwjm (TRELEGY ELLIPTA) 100-62.5-25 mcg Inhl Disk with [...] Redo CABG 6 mo later at [facility] with // patent grafts 2010 Unspecified [...] 07/04/2015 S/P coronary angiogram 08/31/201407/04 Overview (08/31/2014): C 10/15/2009 four out of four grafts, SVG [...] Care Team Description 05/17/2025 Refill SEP Luis RODRIGUEZ [address] [place] [address] Lorri Crespo APRN Medication Refill 05/05/2025 Nurse Triage SEP Nurse Now [address] [place] [address] Alicia Jones RN 04/26/2025 Refill SEP Luis RODRIGUEZ [address] [place] [address] Cr Resendez MD Medication Refill 04/24/2025 Results Follow-Up [address] [place] [address] Cr Resendez MD HEMOGLOBIN A1C, COMPREHENSIVE METABOLIC PANEL, CBC WITH DIFF, Additional followed-up results: 3 04/23/2025 9:30 AM EDT Clinical Support [address] [place] [address] Elizabeth Reynoso, RN Encounter for support and coordination of transition of care (Primary Dx) 04/23/2025 9:00 AM EDT Office Visit [address] [place] [address] Cr Resendez MD Encounter for Medicare annual wellness exam (Primary Dx); Hepatocellular carcinoma (HCC); Chronic systolic congestive heart failure (HCC); Mixed simple and mucopurulent chronic bronchitis (HCC); Unspecified essential hypertension; Screening for prostate cancer; Bilateral impacted cerumen 04/19/2025 Patient Outreach [facility] [address] [place], [place] [address] Cr Resendez MD Central Patient Navigator Outreach (AWV Questionnaire/) 03/26/[address] [place] [address] Cr Resendez MD Medication Refill from Last [...] maker CORONARY ANGIOPLASTY WITH STENT PLACEMENT 01/04/2024 [facility]K [facility] 12/06/2024 [facility] Medical History Medical History Date Comments COPD (chronic obstructive pu lmonary disease) ([facility]) Shortness of breath Blood circulation, collateral fe et and hands get cold since cabg CAD (coronary artery disease) Hypertension [place] (myocardial infarction) ([facility]) 4 times Arthritis Headache(784.0) Neuromuscular disorder ([facility]) lennox k and left leg [...] Cheng MD Medical Devices Implanted Type Area Office Equipment Technician Device Identifier Shelf Expiration Date Model / Serial / Lot [employer] Vigilant ICD D233 / / [employer] Lead Lead [id number] / / St. [...] to Health Maintenance Results * [facility] (05/27/2025 6:46 PM EDT) Only the most recent of5 resultswithin the time period is included. 05/27/2025 6:46 PM EDT us Unknown Provider HEMATOLOGY ORDERABLES Final Res ult * LIPID PANEL REFLEX (04/23/2025 9:47 AM EDT) Cholesterol 98 <200 mg/dL 04/23/2025 4:37 PM EDT [facility] Comment: < 200 Desirable 200 - 239 Borderline High >= 240 High Triglyceride 38 <150 mg/dL 04/23/2025 4:37 PM EDT [facility] Comment: < 150 Normal 150 - 199 Borderline High 200 - 499 High >= 500 Very High HDL 40 >=40 mg/dL 04/23/2025 4:37 PM EDT [facility] Comment: > 60 Optimal 40 - 60 Acceptable < 40 Low LDL Calculated 47 <100 mg/dL 04/23/2025 4:37 PM EDT [facility] Comment: < 100 Optimal 100 - 129 Near or above optimal 130 - 159 Borderline High 160 - 189 High >= 190 Very High The National Institutes of Health (NIH) equation is used for all lipid panels that report calculated LDL (LDL-C). Non-HDL-C Calculated 58 <=129 mg/dL 04/23/2025 4:37 PM EDT [facility] Comment: <130 Desirable 130-159 Above Desirable 160-189 Borderline High 190-219 High >= 220 Very High Fasting Specimen? Yes None 025 4:37 PM EDT [facility] Blood VENOUS BLOOD / Unknown Venipuncture / Unknown 04/23/2025 9:47 AM EDT 04/23/2025 9:47 AM EDT Cr Resendez MD CHEMISTRY ORDERABLES Final Res ult Performing Organization Address [facility] de Phone Number [address] , [place] [id number] * TSH REFLEX TO FT4 (04/23/2025 9:47 AM EDT) TSH Reflex 0.889 0.270 - 4.200 mcIU/mL 04/23/2025 4:37 PM EDT [email or web address] Blood VENOUS BLOOD / Unknown Venipuncture / Unknown 04/23/2025 9:47 AM EDT 04/23/2025 9:47 AM EDT Narrative [email or web address] - 04/23/2025 4:37 PM EDT Ingestion of fernanda doses of biotin (>5 mg/day) taken within 8 hours of drawing blood sample can interfere with this immunoassay test. Cr Resendez MD CHEMISTRY ORDERABLES Final Res ult Performing Organization Address [facility] Phone Number [facility] , [place] [address] * PROSTATE SPECIFIC ANTIGEN (SCREENING) (04/23/2025 9:47 AM EDT) Total Psa 0.08 <=4.00 ng/mL 04/23/2025 3:49 PM EDT [email or web address] Blood VENOUS BLOOD / Unknown Venipuncture / Unknown 04/23/2025 9:47 AM EDT 04/23/2025 9:47 AM EDT Narrative [email or web address] - 04/23/2025 3:49 PM EDT The [...] Res ult [facility] [address] [facility] , [address] [place], [place] [id number] * (ABNORMAL) CBC WITH DIFF (04/23/2025 9:47 [...] 4:08 PM EDT [facility] [place] # 1.2(H) 0.3 - 0.9 x10(3)/mcL 04/23/2025 [...] Re sult [facility] [address] [facility] , [address] [place] [phone] * (ABNORMAL) HEMOGLOBIN A1C (04/23/2025 9:47 AM EDT) Hgb A1C 5.7(H) 4.2 - 5.6 % 04/23/2025 5:18 PM EDT [facility] Est. Avg Glucose 117 mg/dL 04/23/2025 5:18 PM EDT [facility] Blood VENOUS BLOOD / Unknown Venipuncture / Unknown 04/23/2025 9:47 AM EDT 04/23/2025 9:47 AM EDT Narrative [facility] - 04/23/2025 5:18 PM EDT REFERENCE [...] CHEMISTRY ORDERABLES Final Res ult [facility] [address] [facility] , [place] [address] * (ABNORMAL) COMPREHENSIVE METABOLIC PANEL (04/23/2025 9:47 AM EDT) [facility] Sodium 142 136 - 145 mmol/L 04/23/2025 4:37 PM EDT [facility] Potassium 3.9 3.5 - 5.0 mmol/L 04/23/2025 4:37 PM EDT [facility] Chloride 104 98 - 107 mmol/L 04/23/2025 4:37 PM EDT [facility] Total CO2 28 22 - 29 mmol/L 04/23/2025 4:37 PM EDT [facility] Anion Gap 10 7 - 16 mmol/L 04/23/2025 4:37 PM EDT [facility] Calcium 9.8 8.8 - 10.4 mg/dL 04/23/2025 4:37 PM EDT [facility] Glucose Lvl 90 70 - 99 mg/dL 04/23/2025 4:37 PM EDT [facility] BUN 13 8 - 23 mg/dL 04/23/2025 4:37 PM EDT [facility] Creatinine 0.84 0.67 - 1.30 mg/dL 04/23/2025 4:37 PM EDT [facility] Albumin 3.8 3.2 - 4.6 gm/dL 04/23/2025 4:37 PM EDT [facility] Total Protein 8.3 6.4 - 8.3 gm/dL 04/23/2025 4:37 PM EDT [facility] Bili Total 1.2 0.2 - 1.4 mg/dL 04/23/2025 4:37 PM EDT [facility] ALT 26 <=41 U/L 04/23/2025 4:37 PM EDT [facility] AST 74(H) <=40 U/L 04/23/2025 4:37 PM EDT [facility] Alk Phos 142(H) 40 - 129 U/L 04/23/2025 4:37 PM EDT [facility], [facility] eGFR (CKD-EPIcr 2020) 96 >=60 mL/min/1.7 3 m2 04/23/2025 4:37 PM EDT [facility] Comment:Estimated GFR was ca lculated using the CKD-EPIcr (2020) equation refit without race. The equation is recommended by the National Kidney Foundation - [place] [employer] of Nephrology Task Force. Blood VENOUS BLOOD / Unknown Venipuncture / Unknown 04/23/2025 9:47 AM EDT 04/23/2025 9:47 AM EDT us Cr Resendez MD CHEMISTRY ORDERABLES Final Res ult [facility] [address] [facility] , [address] [place] [phone] * US AAA SCREENING EXAM MEDICARE (12/16/2023 [...] CLINICAL HISTORY: Z13.6-Encounter for screening for cardiovascular [id number]-JHB-51-CM. COMPARISON: CT abdomen pelvis from 09/07/2023 PROCEDURE COMMENTS: Routine sonographic evaluation of the abdominal aorta with account manager sales representative images sent to PACS along with platform software engineer notes. FINDINGS: The abdominal aorta is normal in caliber. Maximum transverse diameter is 2.4 cm. Atherosclerotic change in the aorta and iliac vessels noted unchanged from the recent CT Procedure Note Cr Ramachandran MD - 12/16/2023 US AAA SCREENING EXAM MEDICARE, 12/16/2023 9:55 AM CLINICAL HISTORY: Z13.6-Encounter for screening for cardiovascular vlsdbeqxb-HDI-63-CM. COMPARISON: CT abdomen pelvis from 09/07/2023 PROCEDURE COMMENTS: Routine sonographic evaluation of the abdominal aortawith account manager sales representative images sent to PACS along with platform software engineer notes. FINDINGS: The abdominal aorta is normal [...] of the ordering clinician. Cr Resendez MD [facility] ORDERABLES Final Result * COLONOSCOPY (01/13/2023 1:07 [...] MD Performing Provider Raymond Harris RN Oil Sales And Service Rep Gurvinder Garner MD Anesthesiologist Mary Jo Romero [...] PATHOLOGY TISSUE REQUEST Casper Pena MD 01/13/2023 7445 2 : sigmoid colon polyp via cold snare Tissue Large Intestine, Sigmoid Colon PATHOLOGY TISSUE REQUEST Casper Pena MD 01/13/2023 1303 us Casper Pena MD ENDOSCOPY PROCEDURE ORDERABL ES Final Result * HEPATITIS C ANTIBODY - SCREENING (11/24/2021 10:38 AM EDT) Hep C Ab Non-Reactiv e Non-Reacti ve 11/24/2021 3:20 PM EDT [facility] Blood VENOUS BLOOD / Unknown Venipuncture / Unknown 11/24/2021 10:38 AM EDT 11/24/2021 10:43 AM EDT us Cr Resendez MD HEMATOLOGY ORDERABLES Final Re sult [facility] [address] [facility] , [place] [address] from Last 3 Months or Most Recently Relevant to Health Maintenance Insurance [place] [address] MEDICAID [place] Member Subscriber Plan / Payer (Ef fective 2016-Present) Name:Rl Steward Relation to Subscriber:Self Name:Rl Steward Payer ID:Not on file Group ID:Not on file Type:Not on file Address: [address] [place] [id number] [place] PART A [place] B [place] PART A [place] B [place] Care Teams Senior Electrical Controls Engineer Relationship Specialty Start Date End Date Macario Pryor MD [address] [place] [address] [place] [id number] PCP - Hematology/Oncology Internal Medicine-Medical Oncology 11/12/15 Cr Resendez MD [address] [place] [address] [place] [id number] PCP - General Family Medicine 11/24/21 Jan Sin MD [address] [place] [address] [place] [id number] Internal Medicine-Cardiovascul ar Disease 08/28/14
--- OUTSIDE RECORDS SUMMARY | 2025-05-29 12:06 | XMS_ITS | Encounter Summary ---
Author Organization [place] [address] Care Team Providers Care Public Policy Mediator Name Role Phone Jan Sin MD Unavailable [phone] Macario Pryor MD Unavailable Unavailabl e Cr Resendez MD Primary Care Provider [phone] Reason for Visit * Reason Comments Medication Refill Encounter Details Date Type Department Care Team (Late st Contact Info) Description 04/26/2025 Refill SEP Luis [facility] [place] [address] Cr Resendez MD [address] [place] [address] [address] [place] [id number] Medication Refill Social History Tobacco Use Types [...] and sent to requesting pharmacy. Routed to [facility] if an appointment is needed. clopidogreL There [...] Discontinue Reason Start Date End Da te macrbxtzbfe-pugsctyih-jgt anter (TRELEGY ELLIPTA) 100-62.5-25 mcg Inhl Disk [...] as of this encounter Care Teams Public Policy Mediator Relationship Specialty Start Date End Date Macario Pryor MD [address] [place] [address] [place] [id number] PCP - Hematology/Oncology Internal Medicine-Medical Oncology 11/12/15 Cr Resendez MD [address] [place] [address] [place] [id number] PCP - General Family Medicine 11/24/21 Jan Sin MD [address] [place] [address] [place] [address] Internal Medicine-Cardiovascul ar Disease 08/28/14 documented as of this encounter
--- OUTSIDE RECORDS SUMMARY | 2025-05-29 12:06 | XMS_ITS | Encounter Summary ---
Author Organization [place] [address] Care Team Providers Care Ax Survey Worker Name Role Phone Jan Sin MD Unavailable [phone] Macario Pryor MD Unavailable [facility] Cr Resendez MD Primary Care Provider [phone] Reason for Visit * Reason Onset Date Comments Central Patient Navigator Outreach 04/19/2025 AWV Questionnaire Encounter Details Date Type Department Care Team (Late st Contact Info) Description 04/19/2025 Patient Outreach SEP [facility] [address] [place] [address] Cr Resendez MD [address] [place] [address] [place] [address] Central Patient Navigator Outreach (AWV Questionnaire/) Social [...] Questionnaires Attempt Count: inbound Care Gaps Addressed tile mason: Medicare Questionnaire Outcome:Medicare Questionnaire completed Call back number: [phone] * Esme Mendez - 04/19/2025 10:38 AM EDT Patient Outreach: Pre-Visit Questionnaires Attempt Count: 1st Care Gaps Addressed tile mason: Medicare Questionnaire Outcome:MyChart Message Sent and Patient not available Call back number: [phone] documented in this encounter Plan of Treatment [...] documented as of this encounter Care Teams Ax Survey Worker Relationship Specialty Start Date End Date Macario Pryor MD [address] [place] [address] [place] [address] PCP - Hematology/Oncology Internal Medicine-Medical Oncology 11/12/15 Cr Resendez MD [address] [place] [address] [place] [address] PCP - General Family Medicine 11/24/21 Jan Sin MD [address] [place] [address] [place] [address] Internal Medicine-Cardiovascul ar Disease 08/28/14 documented as of this encounter
--- OUTSIDE RECORDS SUMMARY | 2025-05-29 12:06 | XMS_ITS | Encounter Summary ---
Author Organization [facility] Address [address] [place] [address] Care Team Providers Care Frit Burner Name Role Phone Lewis Isabella Darling AUTOMOBILE BUMPER STRAIGHTENER Unavailable [phone] Jeannie Mcmillan RN Unavailable Ebony Shoemaker Unavailable [phone] Pcp, No Primary Care Provider Unavailabl e Rodney Gonzáles MD Unavailable [phone] Reason for Visit * Reason Comments Txp Surgical Follow-up Encounter Details Date Type Department Care Team (Late st Contact Info) Description 04/06/2025 Telephone [facility] Transplant Center [address] [facility] [address] [place] [address] Ebony Shoemaker [place] [phone] Txp Surgical Follow-up Social History Tobacco Use [...] AM EDT I spoke with Veronica the loans officer with Isabella Kitchen' office. She said [...] He does not follow with a manager cash per Ashley. Added to Dr. Do's discussion [...] documented as of this encounter Care Teams Frit Burner Relationship Specialty Start Date End Date Pcp, [address] [address] PCP - General Family Medicine 03/20/25 Isabella Saucedo APRN [address] [facility] [address] [place], [place] [id number] Referring Physician 02/26/25 Jeannie Mcmillan, RN [facility] [address] [place] [address] Registered Nurse Transplant Surgery 03/08/25 [place] [address] Registered Nurse Transplant Surgery 03/08/25 Rodney Gonzáles MD 1210 [facility] [address] [place] [address] Medical Oncologist 04/10/25 documented as of this encounter
--- OUTSIDE RECORDS SUMMARY | 2025-05-29 12:06 | XMS_ITS | Encounter Summary ---
Author Organization [place] [address] Care Team Providers Care Reducing Machine Operator Name Role Phone Jan Sin MD Unavailable [phone] Macario Pryor MD Unavailable Cr Rodriguez MD Primary Care Provider [phone] Reason for Visit * Reason Onset Date Comments Bloated 05/05/2025 Encounter Details Date Type Department Care Team (Late st Contact Info) Description 05/05/2025 Nurse Triage SEP Nurse Now [address] [place] [address] Alicia Jones, RN Social History Tobacco [...] getting worse Protocols used: Abdomen Bloating and Sqkijjhw-L-JL documented in this encounter Plan of Treatment [...] documented as of this encounter Care Teams Reducing Machine Operator Relationship Specialty Start Date End Date Macairo Pryor MD [address] [place] [address] [place] [address] PCP - Hematology/Oncology Internal Medicine-Medical Oncology 11/12/15 Cr Resendez MD [address] [place] [address] [place] [address] PCP - General Family Medicine 11/24/21 Jan Sin MD [address] [place] [address] [place] [address] Internal Medicine-Cardiovascul ar Disease 08/28/14 documented as of this encounter
--- OUTSIDE RECORDS SUMMARY | 2025-05-29 12:06 | XMS_ITS | Clinical Summary ---
Author Organization Healthcare Address [address] [place] [address] Care Team Providers Care Wood Lathe Operator Name Role Phone LewisBereniceIsabella J DECK MATE Unavailable [phone] Jeannie Mcmillan RN Unavailable Ebony Shoemaker Unavailable [phone] Pcp, No Primary Care Provider Unavailabl e Rodney Gonzáles MD Unavailable [phone] Allergies Active Allergy Reactions Criticality Noted [...] EDT Hospital Encounter [facility] Inpatient [address] [place] [address] Clotilde Saleh MD Arndt, Frederick, MD Vyasabattu, Mahender, MD Generalized abdominal pain (Primary Dx); Hepatocellular carcinoma; RUQ abdominal pain Discharge Disposition: Home or Self Care 05/01/2025 Travel 05/01/2025 Orders Only External Location [address] [place] [address] Chris Lazo MD 04/06/2025 Telephone [facility] [address] [phone] Ebony Shoemaker Txp Surgical Follow-up 03/20/2025 4:39 PM EDT - 03/21/2025 6:51 PM EDT Hospital Encounter [facility] H Inpatient [address] [place] [id number] Clotilde Saleh MD Santos, MD Krystina Wade Anne E, MD Epigastric pain (Primary Dx); Hepatocellular carcinoma; Alcoholic cirrhosis of liver without ascites (CMS/HCC) Discharge Disposition: Home or Self Care 03/20/2025 Travel 03/20/2025 Orders Only External Location [address] [place] [phone] Provider, External 03/20/2025 Orders Only External Location [address] [place] [phone] Provider, External 03/20/2025 Orders Only External Location [address] [place] [phone] Provider, External 03/16/2025 Telephone [facility] [address] [phone] Ebony Shoemaker Txp Surgical Follow-up (Ernestina: Tumor Board Discussion 03/16/25) 03/14/2025 11:20 AM EDT - 03/14/2025 11:59 PM EDT Hospital Encounter [facility] [address] [place] [address] Elevated AFP; Liver lesion; Hepatic cirrhosis, unspecified hepatic cirrhosis type, unspecified whether ascites present (CMS/HCC) Discharge Disposition: Home or Self Care 03/14/2025 10:00 AM EDT Office Visit [facility] [address] [phone] Peter Do MD HCC (hepatocellular carcinoma) (Primary Dx) 03/14/2025 Orders Only [facility] [address] [place] [phone] Ebony Shoemaker Liver lesion (Primary Dx); Elevated AFP; Hepatic cirrhosis, unspecified hepatic cirrhosis type, unspecified whether ascites present (CMS/HCC) 03/14/2025 Travel 03/10/2025 Travel 03/07/2025 Travel 03/06/2025 Telephone [facility] [address] [phone] Cici Ramírez 03/06/2025 Telephone [facility] [address] [place] [phone] Angelita Reeves Appointment 03/05/2025 Telephone [facility] [address] [place] [phone] Angelita Reeves Appointment 02/26/2025 Telephone [facility] [address] [place] [phone] Angelita Reeves Referral - Liver Txp 02/26/2025 Community [facility] [address] [place] [address] Isabella Saucedo APRN Invasion of liver, gallbladder, pancreas, ipsilateral branch of portal vein, 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 No 05/02/2025 [facility] Utilities Answer Date Recorded In the [...] Last Done Comments [facility]-Infant/Child/Adol SDOH Screenings 1960 [id number] Vaccine (#1) 1963 [facility]-Hepatitis A Vaccines (1 [...] on 05/04/2025 3:10 PM Carroll Childers MD [facility] PROCEDURES Final Result * Phosphatidylethanol (PEth), Whole Blood, Quantitative (05/04/2025 4:33 AM EDT) PEth 16:0/18:2 (PLPEth) <10 ng/mL 05/06/2025 12:20 PM EDT [facility] ([facility]) PEth 16:0/18:1 (POPEth) <10 ng/mL 05/06/2025 12:20 PM EDT [facility] ([facility]) EER Peth See Note 05/06/2025 12:20 PM EDT [facility] ([facility]) PEth Interpretation See Comment 05/06/2025 12:20 PM EDT [facility] ([facility]) Blood Venous blood specimen / Unknown Venipuncture / Unknown 05/04/2025 4:33 AM EDT 05/04/2025 4:42 AM EDT Narrative [facility] ([facility]) - 05/06/2025 12:20 PM EDT PEth 16:0/18:1 (POPEth) Less than 10 ng/mL............Not detected Less than 20 ng/mL............Abstinence or light alcohol consumption 20 - 200 ng/mL................Moderate alcohol consumption Greater than 200 ng/mL........Heavy alcohol consumption or chronic alcohol use (Reference: Hannah Correa and Trice Azevedo 2018 J. Forensic Sci) Reference ranges are not well established. Authorized individuals can access the [employer] Enhanced Report with an [employer] Connect account using the following link. Your local lab can assist you in obtaining the patient report if you don't have a Connect account. [email or web address] Phosphatidylethanol (PEth) is a group of phospholipids [...] developed and its performance characteristics determined by [facility]. It has not been cleared or approved by the U.S. Food and Drug Administration. This test was performed in a CLIA-certified laboratory and is intended for clinical purposes. Performed By: [facility] [address] [place] [id number] Slag Mixer: Dvaid Marx MD, PhD CLIA Number: [id number] Ang Will MD LAB REF LAB BLOOD AND FLU ID ORD Final Result Performing Organization Address City/[facility]/ZIP Co de Phone Number [facility] ([facility]) [address] [place] [address] * (ABNORMAL) Creatine Kinase, Total, Plasma (05/04/2025 4:33 AM EDT) Creatine Kinase, Plasma 33(L) 49 - 320 U/L 05/04/2025 5:27 AM EDT [facility] Blood Venous blood specimen / Unknown Venipuncture / Unknown 05/04/2025 4:33 AM EDT 05/04/2025 4:44 AM EDT Ang Will MD LAB BLOOD ORDERABLES Courtney l Result [facility] [address] [place] [address] * (ABNORMAL) CBC W/O Differential (05/04/2025 4:33 AM EDT) Only the most recent of3 resultswithin the time period is included. WBC Count 4.71 3.70 - 10.30 10*3/uL LAB HEMATOLOGY METHOD 05/04/2025 5:18 AM EDT [facility] RBC Count 4.16(L) 4.60 - 6.10 10*6/uL LAB HEMATOLOGY METHOD 05/04/2025 5:18 AM EDT [facility] HGB 13.1(L) 13.7 - 17.5 g/dL LAB HEMATOLOGY METHOD 05/04/2025 5:18 AM EDT [facility] HCT 38.4(L) 40.0 - 51.0 % LAB HEMATOLOGY METHOD 05/04/2025 5:18 AM EDT [facility] Platelet Count 117(L) 155 - 369 10*3/uL LAB HEMATOLOGY METHOD 05/04/2025 5:18 AM EDT [facility] MCV 92 79 - 98 fL LAB HEMATOLOGY METHOD 05/04/2025 5:18 AM EDT [facility] MCH 31.5 26.0 - 32.0 pg LAB HEMATOLOGY METHOD 05/04/2025 5:18 AM EDT [facility] MCHC 34.1 30.7 - 35.5 g/dL LAB HEMATOLOGY METHOD 05/04/2025 5:18 AM EDT [facility] RDW 15.5(H) 11.5 - 14.5 % LAB HEMATOLOGY METHOD 05/04/2025 5:18 AM EDT [facility] MPV 11.5 8.8 - 12.5 fL LAB HEMATOLOGY METHOD 05/04/2025 5:18 AM EDT [facility] nRBC 0.0 <=0.0 per 100 WBCs LAB HEMATOLOGY METHOD 05/04/2025 5:18 AM EDT [facility] Blood Venous blood specimen / Unknown Venipuncture / Unknown 05/04/2025 4:33 AM EDT 05/04/2025 4:45 AM EDT Ang Will MD LAB BLOOD ORDERABLES Courtney ferrari Result [facility] [address] [place] [address] * (ABNORMAL) Comprehensive metabolic panel (05/04/2025 4:33 AM EDT) Only the most recent of7 resultswithin the time period is included. Glucose, Plasma 92 74 - 99 mg/dL 05/04/2025 5:27 AM EDT [facility] BUN, Plasma 11 8 - 23 mg/dL 05/04/2025 5:27 AM EDT [facility] Creatinine, Plasma 0.81 0.70 - 1.20 mg/dL 05/04/2025 5:27 AM EDT [facility] BUN/Creatinine Ratio 14 05/04/2025 5:27 AM EDT [facility] Sodium, Plasma 138 136 - 145 mmol/L 05/04/2025 5:27 AM EDT [facility] Potassium, Plasma 3.3(L) 3.6 - 4.9 mmol/L 05/04/2025 5:27 AM EDT [facility] Chloride, Plasma 106 97 - 107 mmol/L 05/04/2025 5:27 AM EDT [facility] CO2, Plasma 20(L) 22 - 29 mmol/L 05/04/2025 5:27 AM EDT [facility] Anion Gap 12 6 - 16 mmol/L 05/04/2025 5:27 AM EDT [facility] Total Calcium, Plasma 8.5(L) 8.9 - 10.2 mg/dL 05/04/2025 5:27 AM EDT [facility] Total Protein 6.4 6.3 - 7.9 g/dL 05/04/2025 5:27 AM EDT [facility] Albumin, Plasma 2.6(L) 3.5 - 5.2 g/dL 05/04/2025 5:27 AM EDT [facility] AST, Plasma 140(H) 10 - 50 U/L 05/04/2025 5:27 AM EDT [facility] ALT, Plasma 21 10 - 50 U/L 05/04/2025 5:27 AM EDT [facility] Alkaline Phosphatase, Plasma 186(H) 40 - 115 U/L 05/04/2025 5:27 AM EDT [facility] Total Bilirubin, Plasma 2.1(H) 0.2 - 1.1 mg/dL 05/04/2025 5:27 AM EDT [facility] eGFRcr 96.6 mL/min/1.7 3m*2 05/04/2025 5:27 AM EDT [facility] Comment:Reported eGFRcr in m L/min/1.73m2 is based the CKD-EPI 2020 equation that does not use a race coefficient. Blood Venous blood specimen / Unknown Venipuncture / Unknown 05/04/2025 4:33 AM EDT 05/04/2025 4:44 AM EDT Ang Will MD LAB BLOOD ORDERABLES Courtney l Result Performing Organization Address City/[facility] Co de Phone Number [facility] [address] [place] [address] * (ABNORMAL) Bilirubin, direct (05/02/2025 1:42 PM EDT) Only the most recent of2 resultswithin the time period is included. Direct Bilirubin, Plasma 0.7(H) <=0.3 mg/dL 05/02/2025 2:51 PM EDT [facility] Blood Venous blood specimen / Unknown Venipuncture / Unknown 05/02/2025 1:42 PM EDT 05/02/2025 2:10 PM EDT Result [facility] Ang Will MD LAB BLOOD ORDERABLES Courtney l Result Performing Organization Address [facility] Co de Phone Number [facility] [address] [place] [address] * (ABNORMAL) Lactate, venous (05/02/2025 2:07 AM EDT) Only the most recent of3 resultswithin the time period is included. Lactate, Venous, Whole Blood 3.0(H) 0.5 - 2.2 mmol/L LAB HEMATOLOGY METHOD 05/02/2025 2:21 AM EDT [facility] Blood Venous blood specimen / Unknown Venipuncture / Unknown 05/02/2025 2:07 AM EDT 05/02/2025 2:19 AM EDT Lexi Crane APRN LAB BLOOD ORDERABLES Final Re sult Performing Organization Address City/[facility] Co de Phone Number [facility] [address] [place] [address] * (ABNORMAL) Prothrombin Time/INR (05/02/2025 2:07 AM EDT) Only the most recent of5 resultswithin the time period is included. Prothrombin Time 14.5(H) 12.0 - 14.3 sec LAB COAGULATION METHOD 05/02/2025 2:44 AM EDT [facility] INR 1.1 0.9 - 1.1 LAB COAGULATION METHOD 05/02/2025 2:44 AM EDT [facility] Blood Venous blood specimen / Unknown Venipuncture / Unknown 05/02/2025 2:07 AM EDT 05/02/2025 2:20 AM EDT Narrative [facility] - 05/02/2025 2:44 AM EDT OPTIMAL INR RANGES FOR PATIENT ON ORAL ANTICOAGULANT THERAPY Prevention of venous thromboembolism INR 2.0 to 3.0 In patients with heart disease: Atrial fibrillation INR 2.0 to 3.0 Valvular heart disease INR 2.0 to 3.0 Tissue heart valves INR 2.0 to 3.0 Mechanical prosthetic valves INR 2.5 to 3.5 Prevention of recurrent IA INR 2.5 to 3.5 us Lexi Crane APRN LAB BLOOD ORDERABLES Final Re sult [facility] [address] [place] [address] * (ABNORMAL) CBC and differential (05/02/2025 2:07 AM EDT) Only the most recent of4 resultswithin the time period is included. WBC Count 6.14 3.70 - 10.30 10*3/uL LAB HEMATOLOGY METHOD 05/02/2025 2:31 AM EDT [facility] RBC Count 4.15(L) 4.60 - 6.10 10*6/uL LAB HEMATOLOGY METHOD 05/02/2025 2:31 AM EDT [facility] HGB 13.3(L) 13.7 - 17.5 g/dL LAB HEMATOLOGY METHOD 05/02/2025 2:31 AM EDT [facility] HCT 39.3(L) 40.0 - 51.0 % LAB HEMATOLOGY METHOD 05/02/2025 2:31 AM EDT [facility] Platelet Count 126(L) 155 - 369 10*3/uL LAB HEMATOLOGY METHOD 05/02/2025 2:31 AM EDT [facility] MCV 95 79 - 98 fL LAB HEMATOLOGY METHOD 05/02/2025 2:31 AM EDT [facility] MCH 32.0 26.0 - 32.0 pg LAB HEMATOLOGY METHOD 05/02/2025 2:31 AM EDT [facility] MCHC 33.8 30.7 - 35.5 g/dL LAB HEMATOLOGY METHOD 05/02/2025 2:31 AM EDT [facility] RDW 15.1(H) 11.5 - 14.5 % LAB HEMATOLOGY METHOD 05/02/2025 2:31 AM EDT [facility] MPV 11.9 8.8 - 12.5 fL LAB HEMATOLOGY METHOD 05/02/2025 2:31 AM EDT [facility] nRBC 0.0 <=0.0 per 100 WBCs LAB HEMATOLOGY METHOD 05/02/2025 2:31 AM EDT [facility] Differential Type Automated LAB HEMATOLOGY METHOD 05/02/2025 2:31 AM EDT [facility] Neutrophils % 65 % LAB HEMATOLOGY METHOD 05/02/2025 2:31 AM EDT [facility] Lymphocytes % 20 % LAB HEMATOLOGY METHOD 05/02/2025 2:31 AM EDT [facility] Monocytes % 13 % LAB HEMATOLOGY METHOD 05/02/2025 2:31 AM EDT [facility] Eosinophils % 1 % LAB HEMATOLOGY METHOD 05/02/2025 2:31 AM EDT [facility] Basophils % 0 % LAB HEMATOLOGY METHOD 05/02/2025 2:31 AM EDT [facility] Immature Granulocytes % 1 % LAB HEMATOLOGY METHOD 05/02/2025 2:31 AM EDT [facility] Neutrophils Absolute 4.00 1.60 - 6.10 10*3/uL LAB HEMATOLOGY METHOD 05/02/2025 2:31 AM EDT [facility] Lymphocytes Absolute 1.22 1.20 - 3.90 10*3/uL LAB HEMATOLOGY METHOD 05/02/2025 2:31 AM EDT [facility] Monocytes Absolute 0.79 0.30 - 0.90 10*3/uL LAB HEMATOLOGY METHOD 05/02/2025 2:31 AM EDT [facility] Eosinophils Absolute 0.07 0.00 - 0.50 10*3/uL LAB HEMATOLOGY METHOD 05/02/2025 2:31 AM EDT [facility] Basophils Absolute 0.02 0.00 - 0.10 10*3/uL LAB HEMATOLOGY METHOD 05/02/2025 2:31 AM EDT [facility] Immature Granulocytes Absolute 0.04 0.00 - 0.06 10*3/uL LAB HEMATOLOGY METHOD 05/02/2025 2:31 AM EDT [facility] Blood Venous blood specimen / Unknown Venipuncture / Unknown 05/02/2025 2:07 AM EDT 05/02/2025 2:20 AM EDT Narrative [facility] - 05/02/2025 2:31 AM EDT Therapeutic decision making should be based on absolute values, rather than percentages. us Lexi Crane APRN LAB BLOOD ORDERABLES Final Re sult [facility] [address] [place] [address] * US Abdomen RUQ (05/01/2025 7:43 PM [...] on 05/01/2025 8:43 PM Clotilde Saleh MD [facility] US PROCEDURES Final Result * Type and [...] TEST ORDERABLES Final Result Performing Organization Address [facility] Co de Phone Number BLOOD BANK [address] [place] [address], [place] * Magnesium (05/01/2025 5:54 PM EDT) [facility] Magnesium, Plasma 1.9 1.9 - 2.4 mg/dL 05/01/2025 6:22 PM EDT [facility] Blood Venous blood specimen / Unknown Venipuncture / Unknown 05/01/2025 5:54 PM EDT 05/01/2025 5:58 PM EDT Clotilde Saleh MD LAB BLOOD ORDERABLES Final Resu lt Performing Organization Address [facility] Co de Phone Number [facility] [address] [place] [address] * (ABNORMAL) Lipase (05/01/2025 5:54 PM EDT) Only the most recent of2 resultswithin the time period is included. [facility] Lipase, Plasma 11(L) 19 - 63 U/L 05/01/2025 6:22 PM EDT [facility] Blood Venous blood specimen / Unknown Venipuncture / Unknown 05/01/2025 5:54 PM EDT 05/01/2025 5:58 PM EDT Clotilde Saleh MD LAB BLOOD ORDERABLES Final Resu lt Performing Organization Address [facility] Co de Phone Number [facility] [address] [place] [address] * EKG now - STAT (adult) (05/01/2025 5:43 PM EDT) Only the most recent of2 resultswithin the time period is included. [facility] EKG DIAGNOSIS CLASS Abnormal MUSE ECG Ventricular Rate 70 BPM MUSE ECG Atrial Rate 70 BPM MUSE ECG HI Interval 138 ms MUSE ECG QRSD Interval 86 ms MUSE ECG QT Interval 414 ms MUSE ECG QTC Interval 447 ms MUSE ECG P [place] 50 degrees MUSE ECG R [place] -53 degrees MUSE ECG T Wave [place] 43 degrees MUSE ECG Diagnosis Normal sinus rhythm with sinus arrhythmia MUSE ECG Diagnosis Left axis deviation MUSE ECG Diagnosis Anterior infarct , age undetermined MUSE ECG Diagnosis T wave abnormality, consider lateral ischemia MUSE ECG Diagnosis MUSE ECG Diagnosis MUSE ECG Diagnosis Confirmed by Jordyn Pompa ([id number]) on 05/02/2025 3:24:55 PM MUSE ECG 05/01/2025 [...] 2 Hour, Plasma (03/20/2025 10:54 PM EDT) [facility] Troponin T, High Sensitivity, 2 Hour 10 <19 ng/L 03/20/2025 11:31 PM EDT [facility] Blood Venous blood specimen / Unknown Venipuncture / Unknown 03/20/2025 10:54 PM EDT 03/20/2025 11:04 PM EDT us Leelee Tripathi MD LAB BLOOD ORDERABLE S Final Result [facility] [address] [place] [address] * ED HIV 1/2 Antibody/Antigen Screen w/Reflex to HIV 1/2 Differentiation (03/20/2025 6:51 PM EDT) Pathologist [facility] HIV 1 & 2 Antibody/Antigen Screen Non Reactive Non Reactive 03/20/2025 8:05 PM EDT [facility] Comment:Screening for HIV 1 & 2 antibodies, and P24 antigen is NONREACTIVE. No confirmatory testing is required. Blood Venous blood specimen / Unknown Venipuncture / Unknown 03/20/2025 6:51 PM EDT 03/20/2025 7:09 PM EDT Dedra A RebsaNormal PA LAB BLOOD ORDERABLES Courtney l Result Performing Organization Address City/[facility] Co de Phone Number HEALTHCARE LAB [address] [place] [address] * Troponin now and 120 min (03/20/2025 6:51 PM EDT) Pathologist [facility] Troponin T, High Sensitivity, 0 Hour 9 <19 ng/L 03/20/2025 7:35 PM EDT [facility] Blood Venous blood specimen / Unknown Venipuncture / Unknown 03/20/2025 6:51 PM EDT 03/20/2025 7:09 PM EDT Dedra A FoxyTunessaNormal PA LAB BLOOD ORDERABLES Courtney l Result Performing Organization Address [facility] Co de Phone Number [facility]ARE [facility] [address] [place] [address] * Hepatitis C Antibody - ED (03/20/2025 6:51 PM EDT) Pathologist [facility] Hepatitis C Antibody Negative Negative 03/20/2025 8:01 PM EDT [facility] Blood Venous blood specimen / Unknown Venipuncture / Unknown 03/20/2025 6:51 PM EDT 03/20/2025 7:09 PM EDT Dedra A RebsaNormal PA LAB BLOOD ORDERABLES Courtney l Result Performing Organization Address City/[facility] Co de Phone Number [facility]ARE [facility] [address] [place] [address] * APTT (03/20/2025 6:51 PM EDT) Pathologist [facility] aPTT 31 25 - 35 sec 03/20/2025 7:25 PM EDT [facility]ALTH[facility] Blood Venous blood specimen / Unknown Venipuncture / Unknown 03/20/2025 6:51 PM EDT 03/20/2025 7:08 PM EDT Dedra Driscoll [employer] LAB BLOOD ORDERABLES Courtney l Result Performing Organization Address [facility] de Phone Number [facility] [address] [place] [address] * C-Reactive protein (03/20/2025 6:51 PM EDT) CRP, Plasma 5.2 <=8.0 mg/L 03/20/2025 7:35 PM EDT [facility] Blood Venous blood specimen / Unknown Venipuncture / Unknown 03/20/2025 6:51 PM EDT 03/20/2025 7:09 PM EDT Narrative [facility] - 03/20/2025 7:35 PM EDT This CRP test is appropriate for assessment of infection, systemic inflammation and/or tissue injury. To assess cardiovascular disease risk order high sensitivity CRP (CRPH). Dedra A [employer] LAB BLOOD ORDERABLES Courtney l Result Performing Organization Address [facility] de Phone Number HEALTHCARE LAB [address] [place] [address] * CT THORACIC OUTSIDE IMAGES (03/20/2025 1:13 [...] 1,098.0(H) <10.0 ng/mL 03/14/2025 10:22 AM EDT [facility] Blood Venous blood specimen / Unknown Venipuncture / Unknown 03/14/2025 8:38 AM EDT 03/14/2025 9:03 AM EDT [facility] - 03/14/2025 10:22 AM EDT Performed by Ricky electrochemiluminescent immunoassay which is traceable to the 1st AFP IRP WHO Reference standard 72/255. Results obtained with different test methods or kits cannot be used interchangeably. Peter Do MD LAB BLOOD ORDERABLES Final Result Performing Organization Address City/[facility] [place] [address] * Cancer Antigen, GI (CA 19.9) (03/14/2025 8:38 AM EDT) CA 19.9 26.5 <36 U/mL 03/14/2025 10:22 AM EDT [facility] Blood Venous blood specimen / Unknown Venipuncture / Unknown 03/14/2025 8:38 AM EDT 03/14/2025 9:03 AM EDT [facility] - 03/14/2025 10:22 AM EDT Performed by Ricky electrochemiluminescent immunoassay. Results obtained with different test methods or kits cannot be used interchangeably. Peter Do MD LAB BLOOD ORDERABLES Final Result [facility] [address] [place] [address] * (ABNORMAL) CEA, Serum (03/14/2025 8:38 AM EDT) CEA, Serum 5.2(H) <4.0 ng/mL 03/14/2025 10:22 AM EDT [facility] Blood Venous blood specimen / Unknown Venipuncture / Unknown 03/14/2025 8:38 AM EDT 03/14/2025 9:03 AM EDT Narrative [facility] - 03/14/2025 10:22 AM EDT Normal range for smokers: < 5.5 ng/ml Normal range for non-smokers: <=4.0 ng/ml Performed by Ricky electrochemiluminescent immunoassay. Results obtained with different test methods or kits cannot be used interchangeably. Peter Do MD LAB BLOOD ORDERABLES Final Result [facility] [address] [place] [address] from Last 3 Months Insurance MEDICA[place] MEDICARE [...] updated to appropriate status: Yes Care Teams Wood Lathe Operator Relationship Specialty Start Date End Date Pcp, No [address] [place] [id number] PCP - General Family Medicine 03/20/25 Isabella Saucedo APRN [address] [facility] [address] [place] [address] Referring Physician 02/26/25 Jeannie Mcmillan, RN [facility] [address] [place] [address] Registered Nurse Transplant Surgery 03/08/25 [place] [address] Registered Nurse Transplant Surgery 03/08/25 Rodney Gonzáles MD [address] [facility] [address] [place] [address] Medical Oncologist 04/10/25
--- OUTSIDE RECORDS SUMMARY | 2025-05-29 12:07 | XMS_ITS | Encounter Summary ---
Author Organization Healthcare Address [address] [place] [address] Care Team Providers Care Blanking Machine Operator Name Role Phone Isabella Saucedo Phong MEAT PACKER Unavailable [phone] Jeannie Mcmillan RN Unavailable [phone] Ebony Shoemaker Unavailable [phone] Pcp, No Primary Care Provider Unavailabl e Rodney Gonzáles MD Unavailable [phone] Encounter Details Date Type Department Care Team (Late st Contact Info) Description 12/06/2024 Orders Only External Location 800 [place] [address] Provider, External Social History Tobacco Use Types [...] documented as of this encounter Care Teams Blanking Machine Operator Relationship Specialty Start Date End Date Pcp, No [address] [place] [address] PCP - General Family Medicine 03/20/25 Isabella Saucedo APRN 1210 [facility] [address] [place] [address] Referring Physician 02/26/25 Jeannie Mcmillan, RN [facility] 800 [place] [address] Registered Nurse Transplant Surgery 03/08/25 Ebony Shoemaker [place] [phone] Registered Nurse Transplant Surgery 03/08/25 Rodney Gonzáles MD 1210 [facility] [address] [place] [address] Medical Oncologist 04/10/25 documented as of this encounter
--- OUTSIDE RECORDS SUMMARY | 2025-05-29 12:07 | XMS_ITS | Encounter Summary ---
Author Organization Healthcare Address [address] [place] [address] Care Team Providers Care Machinist Tool And Die Name Role Phone Isabella Saucedo Phong PRODUCT ENGINEERING MANAGER Unavailable [phone] Jeannie Mcmillan RN Unavailable [phone] Ebony Shoemaker Unavailable [phone] Pcp, No Primary Care Provider Unavailabl e Rodney Gonzáles MD Unavailable [phone] Encounter Details Date Type Department Care Team (Late st Contact Info) Description 05/26/2022 Orders Only External Location 800 [place] [address] Provider, External Social History Tobacco Use Types [...] documented as of this encounter Care Teams Machinist Tool And Die Relationship Specialty Start Date End Date Pcp, No [address] [place] [address] PCP - General Family Medicine 03/20/25 Isabella Saucedo APRN 1210 [facility] [address] [place] [address] Referring Physician 02/26/25 Jeannie Mcmillan, RN [facility]RATION 800 [place] [address] Registered Nurse Transplant Surgery 03/08/25 Ebony Shoemaker [place] [phone] Registered Nurse Transplant Surgery 03/08/25 Rodney Gonzáles MD 1210 [facility] [address] [place] [address] Medical Oncologist 04/10/25 documented as of this encounter
--- OUTSIDE RECORDS SUMMARY | 2025-05-29 12:07 | XMS_ITS | Encounter Summary ---
Author Organization Healthcare Address [address] [place] [address] Care Team Providers Care Shrimp Peeling Machine Tender Name Role Phone Isabella Saucedo Phong PRODUCT SUPPORT TECHNICIAN Unavailable [phone] Jeannie Mcmillan RN Unavailable [phone] Ebony Shoemaker Unavailable [phone] Pcp, No Primary Care Provider Unavailabl e Rodney Gonzáles MD Unavailable [phone] Encounter Details Date Type Department Care Team (Late st Contact Info) Description 01/14/2024 Orders Only External Location 800 [place] [address] Provider, External Social History Tobacco Use Types [...] documented as of this encounter Care Teams Shrimp Peeling Machine Tender Relationship Specialty Start Date End Date Pcp, No 800 [place] [address] PCP - General Family Medicine 03/20/25 Isabella Saucedo APRN 1210 [facility] [address] [place] [address] Referring Physician 02/26/25 Jeannie Mcmillan, RN [facility]MINISTRATION 800 [place] [address] Registered Nurse Transplant Surgery 03/08/25 [place] [address] Registered Nurse Transplant Surgery 03/08/25 Rodney Gonzáles MD 1210 [facility] [address] [place] [address] Medical Oncologist 04/10/25 documented as of this encounter
--- OUTSIDE RECORDS SUMMARY | 2025-05-29 12:07 | XMS_ITS | Encounter Summary ---
Author Organization Healthcare Address [address] [place] [address] Care Team Providers Care Cocoa Press Operator Name Role Phone Isabella Saucedo Phong MASTER COASTWISE YACHT Unavailable [phone] Jeannie Mcmillan RN Unavailable [phone] Ebony Shoemaker Unavailable [phone] Pcp, No Primary Care Provider Unavailabl e Rodney Gonzáles MD Unavailable [phone] Encounter Details Date Type Department Care Team (Late st Contact Info) Description 12/06/2024 Orders Only External Location 800 [place] [address] Provider, External Social History Tobacco Use Types [...] documented as of this encounter Care Teams Cocoa Press Operator Relationship Specialty Start Date End Date Pcp, No [address] [place] [address] PCP - General Family Medicine 03/20/25 Isabella Saucedo APRN 1210 [facility] [address] [place] [address] Referring Physician 02/26/25 Jeannie Mcmillan, RN [facility]MINISTRATION 800 [place] [address] Registered Nurse Transplant Surgery 03/08/25 Ebony Shoemaker [place] [phone] Registered Nurse Transplant Surgery 03/08/25 Rodney Gonzáles MD 1210 [facility] [address] [place] [address] Medical Oncologist 04/10/25 documented as of this encounter
--- OUTSIDE RECORDS SUMMARY | 2025-05-29 12:07 | XMS_ITS | Encounter Summary ---
Author Organization Healthcare Address [address] [place] [address] Care Team Providers Care Last Chalker Name Role Phone Isabella Saucedo Phong [place] MACHINE OPERATOR Unavailable [phone] Jeannie Mcmillan RN Unavailable [phone] Ebony Shoemaker Unavailable [phone] Pcp, No Primary Care Provider Unavailabl e Rodney Gonzáles MD Unavailable [phone] Encounter Details Date Type Department Care Team (Late st Contact Info) Description 01/06/2024 Orders Only External Location 800 [place] [address] Provider, External Social History Tobacco Use Types [...] documented as of this encounter Care Teams Last Chalker Relationship Specialty Start Date End Date Pcp, [place] [address] PCP - General Family Medicine 03/20/25 Isabella Saucedo APRN 1210 [facility] [address] [place] [address] Referring Physician 02/26/25 Jeannie Mcmillan, RN [facility]PL[facility] ADMINISTRATION 800 [place] [address] Registered Nurse Transplant Surgery 03/08/25 Ebony Shoemaker [place] [phone] Registered Nurse Transplant Surgery 03/08/25 Rodney Gonzáles MD 1210 [facility] [address] [place] [address] Medical Oncologist 04/10/25 documented as of this encounter
--- OUTSIDE RECORDS SUMMARY | 2025-05-29 12:07 | XMS_ITS | Encounter Summary ---
Author Organization Healthcare Address [address] [place] [address] Care Team Providers Care Rn Family Name Role Phone Isabella Saucedo Phong [employer] Unavailable [phone] Jeannie Mcmillan RN Unavailable [phone] Ebony Shoemaker Unavailable [phone] Pcp, No Primary Care Provider Unavailabl e Rodney Gonzáles MD Unavailable [phone] Encounter Details Date Type Department Care Team (Late st Contact Info) Description 01/12/2025 Orders Only External Location 800 [place] [address] Provider, External Social History Tobacco Use Types [...] as of this encounter Care Teams Rn Family Relationship Specialty Start Date End Date Pcp, [place] [address] PCP - General Family Medicine 03/20/25 Isabella Saucedo APRN 1210 [facility] [address] [place] [address] Referring Physician 02/26/25 Jeannie Mcmillan, RN [facility]TRANSPLANT ADMINISTRATION 800 [place] [address] Registered Nurse Transplant Surgery 03/08/25 Ebony Shoemaker [place] [phone] Registered Nurse Transplant Surgery 03/08/25 Rodney Gonzáles MD 1210 [facility] [address] [place] [address] Medical Oncologist 04/10/25 documented as of this encounter
--- OUTSIDE RECORDS SUMMARY | 2025-05-29 12:07 | XMS_ITS | Encounter Summary ---
Author Organization [place] [address] Care Team Providers Care Pharmacy Scheduler Name Role Phone Jan Sin MD Unavailable [phone] Macario Pryor MD Unavailable [facility] Cr Lopez MD Primary Care Provider [phone] Reason for Visit * Reason Comments Medication Refill Encounter Details Date Type Department Care Team (Late st Contact Info) Description 05/17/2025 Refill SEP Luis [address] [place] [address] Lorri Crespo, CERTIFIED CODER [address] [place] [address] Medication Refill Social History Tobacco Use Types [...] documented as of this encounter Care Teams Pharmacy Scheduler Relationship Specialty Start Date End Date Macario Pryor MD [address] [place] [address] [place] [address] PCP - Hematology/Oncology Internal Medicine-Medical Oncology 11/12/15 Cr Resendez MD [address] [place] [address] [place] [address] PCP - General Family Medicine 11/24/21 Jan Sin MD [address] [place] [address] [place] [address] Internal Medicine-Cardiovascul ar Disease 08/28/14 documented as of this encounter
--- OUTSIDE RECORDS SUMMARY | 2025-05-29 12:07 | XMS_ITS | Encounter Summary ---
Author Organization Healthcare Address [address] [place] [address] Care Team Providers Care Radio Message Router Name Role Phone Isabella Saucedo Phong LITIGATION DOCKET MANAGER Unavailable [phone] Jeannie Mcmillan RN Unavailable [phone] Ebony Shoemaker Unavailable [phone] Pcp, No Primary Care Provider Unavailabl e Rodney Gonzáels MD Unavailable [phone] Encounter Details Date Type Department Care Team (Late st Contact Info) Description 12/06/2024 Orders Only External Location 800 [place] [address] Provider, External Social History Tobacco Use Types [...] as of this encounter Care Teams Radio Message Router Relationship Specialty Start Date End Date Pcp, No [address] [place] [address] PCP - General Family Medicine 03/20/25 Isabella Saucedo APRN 1210 [facility] [address] [place] [address] Referring Physician 02/26/25 Jeannie Mcmillan, RN [facility]TRANSPLANT ADMINISTRATION 800 [place] [address] Registered Nurse Transplant Surgery 03/08/25 Ebony Shoemaker [place] [phone] Registered Nurse Transplant Surgery 03/08/25 Rodney Gonzáles MD 1210 [facility] [address] [place] [address] Medical Oncologist 04/10/25 documented as of this encounter
--- OUTSIDE RECORDS SUMMARY | 2025-05-29 12:07 | XMS_ITS | Encounter Summary ---
Author Organization Healthcare Address [address] [place] [address] Care Team Providers Care Summer Child Caregiver Name Role Phone Isabella Saucedo Phong ANNUAL GIVING DIRECTOR Unavailable [phone] Jeannie Mcmillan RN Unavailable [phone] Ebony Shoemaker Unavailable [phone] Pcp, No Primary Care Provider Unavailabl e Rodney Gonzáles MD Unavailable Encounter Details Date Type Department Care Team (Late st Contact Info) Description 12/06/2024 Orders Only External Location 800 [place] [address] Provider, External Social History Tobacco Use Types [...] documented as of this encounter Care Teams Summer Child Caregiver Relationship Specialty Start Date End Date Pcp, No [address] [place] [address] PCP - General Family Medicine 03/20/25 Isabella Saucedo APRN 1210 [facility] [address] [place] [address] Referring Physician 02/26/25 Jeannie Mcmillan, RN CH-TRANSPLANT ADMINISTRATION 800 [place] [address] Registered Nurse Transplant Surgery 03/08/25 Ebony Shoemaker [place] [phone] Registered Nurse Transplant Surgery 03/08/25 Rodney Gonzáles MD 1210 [facility] [address] [place] [address] Medical Oncologist 04/10/25 documented as of this encounter
--- OUTSIDE RECORDS SUMMARY | 2025-05-29 12:07 | XMS_ITS | Encounter Summary ---
Author Organization Healthcare Address [address] [place] [address] Care Team Providers Care Guard Immigration Name Role Phone Isabella Saucedo Phong ANALYTICAL STATISTICIAN Unavailable [phone] Jeannie Mcmillan RN Unavailable [phone] Ebony Shoemaker Unavailable [phone] Pcp, No Primary Care Provider Unavailabl e Rodney Gonzáles MD Unavailable [phone] Encounter Details Date Type Department Care Team (Late st Contact Info) Description 12/06/2024 Orders Only External Location 800 [place] [address] Provider, External Social History Tobacco Use Types [...] documented as of this encounter Care Teams Guard Immigration Relationship Specialty Start Date End Date Pcp, No [address] [place] [address] PCP - General Family Medicine 03/20/25 Isabella Saucedo APRN 1210 [facility] [address] [place] [address] Referring Physician 02/26/25 Jeannie Mcmillan, RN CH-TRANSPLANT ADMINISTRATION 800 [place] [address] Registered Nurse Transplant Surgery 03/08/25 Ebony Shoemaker [place] [phone] Registered Nurse Transplant Surgery 03/08/25 Rodney Gonzáles MD 1210 [facility] [address] [place] [address] Medical Oncologist 04/10/25 documented as of this encounter
--- OUTSIDE RECORDS SUMMARY | 2025-05-29 12:07 | XMS_ITS | Clinical Summary ---
Author Organization [facility] Address [facility] [place] [address] Care Team Providers Care Quilting Machine Operator Name Role Phone Cr Resendez MD Primary Care Provider [phone] Source Comments This information has been disclosed [...] therelease of HIV test results or diagnoses. [id number] Allergies Active Allergy Reactions Criticality [...] PM EDT Active naloxone (NARCAN) 4 mg/actuation Grandy Apply 1 spray in one nostril if [...] by [facility] CABG 6 mo later at [facility] with grafts 2009 Social History Tobacco Use Types Packs/Day Years Used Date Smoking Tobacco: Some Days Cigarettes Passive Smoke Exposure: Current Tobacco Cessation:Ready to Q uit: Not Asked; Counseling Given: Not Answered Utilities Answer Date Recorded In the past 12 months has th e [employer], gas, oil, or water [employer] threatened to shut off services in your [...] any time in the past 12 m [facility], were you homeless or living [...] 05/08/2019, 07/18/2012 Medical Devices Implanted Type Area Supply Person Device Identifier Shelf Expiration Date Model / Serial / Lot Cage Spnl 6mm 8d Sm Eit Crv Intrbd Fs Strl Lf - [id number] Implanted:Qty: 1 on 12/11/2024 by Nayan Mayo MD at [facility] Cage N/A: Spine Cervical DEPUY SPINE 02/26/2026 [id number] / / Graft Bn Bn Fbr 1cc Algrf Frzdr Pliafx [facility] - [id number] Implanted:Qty: 1 on 12/11/2024 by Nayan Mayo MD at [facility] Graft N/A: Spine Cervical LIFE NET 02/21/2028 [id number] / [id number] / Icd ICD [employer] D233 / / Description:St Chava RA: [id number] 200M RV: [id number] NOT MR CONDITIONAL OF 12/07/2024 - 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 SCS Plate Bone [place] Titanium 14 Mm Prebent L12 Mm X W16 Mm X H2.5 Mm Spine Cervical Anterior 1 Level Nonsterile - [id number] Implanted:Qty: 1 on 12/11/2024 by Nayan Mayo MD at [facility] Plate N/A: Spine Cervical DEPUY SPINE [id number] 12 / / Screw Bone [place] Titanium L16 Mm Od4 Mm Spine Cervical Anterior Variable Self Drill Nonsterile - [id number] Implanted:Qty: 4 on 12/11/2024 by Nayan Mayo MD at [facility] Screw N/A: Spine Cervical DEPUY SPINE -0 16 / / Procedures Procedure Name Priority Date/Time Associated Diagnosis Comments RENAL FUNCTION PANEL W/EGFR Routine 12/14/2024 7:00 AM EDT from Last 3 Months or Most Recently Relevant to Health Maintenance Results * (ABNORMAL) Renal Function Panel w/EGFR (12/14/2024 7:00 AM EDT) Sodium 136 133 - 146 mmol/L 12/14/2024 7:50 AM EDT [facility] Potassium 3.9 3.5 - 5.3 mmol/L 12/14/2024 7:50 AM EDT [facility] Chloride 102 98 - 110 mmol/L 12/14/2024 7:50 AM EDT [facility] CO2 27 21 - 33 mmol/L 12/14/2024 7:50 AM EDT [facility] Anion Gap 7 3 - 16 mmol/L 12/14/2024 7:50 AM EDT [facility] BUN 19 7 - 25 mg/dL 12/14/2024 7:50 AM EDT [facility] Creatinine 0.66 0.60 - 1.30 mg/dL 12/14/2024 7:50 AM EDT [facility] Glucose 126(H) 70 - 100 mg/dL 12/14/2024 7:50 AM EDT [facility] Calcium 8.3(L) 8.6 - 10.3 mg/dL 12/14/2024 7:50 AM EDT [facility] Phosphorus 2.7 2.1 - 4.5 mg/dL 12/14/2024 7:50 AM EDT [facility] Albumin 2.7(L) 3.5 - 5.7 g/dL 12/14/2024 7:50 AM EDT [facility] Osmolality, Calculated 286 278 - 305 mOsm/kg 12/14/2024 7:50 AM EDT [facility] EGFR >90 12/14/2024 7:50 AM EDT [facility] Comment: As of 2021, the estimated [...] BLOOD ORDERABLES nal Result Performing Organization Address City/State/[facility] Co de Phone Number [facility] [address] from Last 3 Months or Most Recently Relevant to Health Maintenance Insurance MEDICARE A AND B [place]ID [place] MED[place] D[place] Advance Directives For more information, please contact: [phone] * Full Code (Latest Code Status on File) Date Activated Date Inactivated Comments 12/07/2024 12:02 AM 12/14/2024 8:22 PM Care Teams Quilting Machine Operator Relationship Specialty Start Date End Date Cr Resendez MD [address] [place] [address] [place] [address] PCP - General Family Medicine 12/07/24
--- OUTSIDE RECORDS SUMMARY | 2025-05-29 12:07 | XMS_ITS | Encounter Summary ---
Author Organization Healthcare Address [address] [place] [address] Care Team Providers Care Plasma Table Operator Name Role Phone Isabella Saucedo Phong VEGETABLE SORTER Unavailable [phone] Jeannie Mcmillan RN Unavailable [phone] Ebony Shoemaker Unavailable [phone] Pcp, No Primary Care Provider Unavailabl e Rodney Gonzáles MD Unavailable [phone] Encounter Details Date Type Department Care Team (Late st Contact Info) Description 01/12/2025 Orders Only External Location 800 [place] [address] Provider, External Social History Tobacco Use Types [...] documented as of this encounter Care Teams Plasma Table Operator Relationship Specialty Start Date End Date Pcp, No [address] [place], [place] [id number] PCP - General Family Medicine 03/20/25 Isabella Saucedo APRN 1210 [facility] [address] [place] [address] Referring Physician 02/26/25 Jeannie Mcmillan, RN CH-TRANSPLANT ADMINISTRATION [address] [place] [address] Registered Nurse Transplant Surgery 03/08/25 Ebony Shoemaker [place] [phone] Registered Nurse Transplant Surgery 03/08/25 Rodney Gonzáles MD 1210 [facility] [address] [place] [address] Medical Oncologist 04/10/25 documented as of this encounter
--- OUTSIDE RECORDS SUMMARY | 2025-05-29 12:07 | XMS_ITS | Encounter Summary ---
Author Organization Healthcare Address [address] [place] [address] Care Team Providers Care Modern Languages Professor Name Role Phone Isabella Saucedo APRN Unavailable [phone] Jeannie Mcimllan RN Unavailable [phone] Ebony Shoemaker Unavailable [phone] Pcp, No Primary Care Provider Unavailabl e Rodney Gonzáles MD Unavailable [phone] Reason for Referral * Consultation (Routine) - Authorized Specialty Diagnoses / Procedures Referred By Contarjun t Referred To Contact Hematology and Oncology Diagnoses Elevated alpha fetoprotein Liver tumor Isabella Saucedo APRN 1210 [place] [address] [place] [address] Phone: tel: fax: Referral ID Status Reason Start Date Expiration Date Visits Requested Visits Authorized [id number] Authorized Specialty Services Required 02/20/2025 08/22/2026 1 1 Encounter Details Date Type Department Care Team (Late st Contact Info) Description 02/19/2025 Community [facility] [address] [place] [address] Isabella Saucedo APRN [address] [place] [address] [place] [address] Elevated alpha fetoprotein (Primary Dx); Liver tumor [...] documented as of this encounter Care Teams Modern Languages Professor Relationship Specialty Start Date End Date Pcp, No [address] [place] [address] PCP - General Family Medicine 03/20/25 Isabella Saucedo APRN 1210 [facility] [address] [place] [address] Referring Physician 02/26/25 Jeannie Mcmillan, RN CH-TRANSPLANT ADMINISTRATION [address] [place] [address] Registered Nurse Transplant Surgery 03/08/25 [place] [address] Registered Nurse Transplant Surgery 03/08/25 Rodney Gonzáles MD 1210 [facility] [address] [place] [address] Medical Oncologist 04/10/25 documented as of this encounter
--- OUTSIDE RECORDS SUMMARY | 2025-05-29 12:07 | XMS_ITS | Encounter Summary ---
Author Organization Healthcare Address [address] [place] [address] Care Team Providers Care Pulpwood Cutter Name Role Phone Isabella Saucedo Phong COURTROOM DEPUTY Unavailable [phone] Jeannie Mcmillan RN Unavailable [phone] Ebony Shoemaker Unavailable [phone] Pcp, No Primary Care Provider Unavailabl e Rodney Gonzáles MD Unavailable Encounter Details Date Type Department Care Team (Late st Contact Info) Description 06/03/2022 Orders Only External Location 800 [place] [address] Provider, External Social History Tobacco Use Types [...] documented as of this encounter Care Teams Pulpwood Cutter Relationship Specialty Start Date End Date Pcp, No 800 [place] [id number] PCP - General Family Medicine 03/20/25 Isabella Saucedo APRN 1210 [facility] [address] [place] [address] Referring Physician 02/26/25 Jeannie Mcmillan, RN CH-TRANSPLANT ADMINISTRATION 800 [place] [address] Registered Nurse Transplant Surgery 03/08/25 [place] [address] Registered Nurse Transplant Surgery 03/08/25 Rodney Gonzáles MD 1210 [facility] [address] [place] [address] Medical Oncologist 04/10/25 documented as of this encounter
--- OUTSIDE RECORDS SUMMARY | 2025-05-29 12:07 | XMS_ITS | Encounter Summary ---
Author Organization Healthcare Address [address] [place] [address] Care Team Providers Care Legal Support Analyst Name Role Phone Isabella Saucedo Phong FRAME ASSEMBLER Unavailable [phone] Jeannie Mcmillan RN Unavailable [phone] Ebony Shoemaker Unavailable [phone] Pcp, No Primary Care Provider Unavailabl e Rodney Gonzáles MD Unavailable [phone] Encounter Details Date Type Department Care Team (Late st Contact Info) Description 12/07/2024 Orders Only External Location 800 [place] [address] Provider, External Social History Tobacco Use Types [...] documented as of this encounter Care Teams Legal Support Analyst Relationship Specialty Start Date End Date Pcp, No [address] [place], [place] [id number] PCP - General Family Medicine 03/20/25 Isabella Saucedo APRN 1210 [facility] [address] [place] [address] Referring Physician 02/26/25 Jeannie Mcmillan, RN CH-TRANSPLANT ADMINISTRATION [address] [place] [address] Registered Nurse Transplant Surgery 03/08/25 Ebony Shoemaker [place] [id number] Registered Nurse Transplant Surgery 03/08/25 Rodney Gonzáles MD 1210 [facility] [address] [place] [address] Medical Oncologist 04/10/25 documented as of this encounter
--- OUTSIDE RECORDS SUMMARY | 2025-05-29 12:07 | XMS_ITS | Encounter Summary ---
Author Organization Healthcare Address [address] [place] [address] Care Team Providers Care Job Boss Name Role Phone Isabella Saucedo Phong MACHINE INSTALLER Unavailable [phone] Jeannie Mcmillan RN Unavailable [phone] Ebony Shoemaker Unavailable [phone] Pcp, No Primary Care Provider Unavailabl e Rodney Gonzáles MD Unavailable [phone] Encounter Details Date Type Department Care Team (Late st Contact Info) Description 01/04/2025 Orders Only External Location 800 [place] [address] Provider, External Social History Tobacco Use Types [...] documented as of this encounter Care Teams Job Boss Relationship Specialty Start Date End Date Pcp, No 800 [place] [id number] PCP - General Family Medicine 03/20/25 Isabella Saucedo APRN 1210 [facility] [address] [place] [address] Referring Physician 02/26/25 Jeannie Mcmillan, RN [facility] ADMINISTRATION 800 [place] [address] Registered Nurse Transplant Surgery 03/08/25 [place] [address] Registered Nurse Transplant Surgery 03/08/25 Rodney Gonzáles MD 1210 [facility] [address] [place] [address] Medical Oncologist 04/10/25 documented as of this encounter
--- OUTSIDE RECORDS SUMMARY | 2025-05-29 12:07 | XMS_ITS | Encounter Summary ---
Author Organization Healthcare Address [address] [place] [address] Care Team Providers Care Textile Pin Worker Name Role Phone Isabella Saucedo Phong ELECTRICIAN STATION ASSISTANT Unavailable [phone] Jeannie Mcmillan RN Unavailable [phone] Ebony Shoemaker Unavailable [phone] Pcp, No Primary Care Provider Unavailabl e Rodney Gonzáles MD Unavailable [phone] Encounter Details Date Type Department Care [...] any time in the past 12 m [facility], were you homeless or living in a fpc (including now)? No 05/02/2025 [facility] Utilities Answer Date Recorded In the [...] documented as of this encounter Care Teams Textile Pin Worker Relationship Specialty Start Date End Date Pcp, [address] [address] PCP - General Family Medicine 03/20/25 Isabella Saucedo APRN 1210 [facility] [address] [place] [address] Referring Physician 02/26/25 Jeannie Mcmillan, RN [facility] ADMINISTRATION [address] [place] [address] Registered Nurse Transplant Surgery 03/08/25 [place] [address] Registered Nurse Transplant Surgery 03/08/25 Rodney Gonzáles MD 1210 [facility] [address] [place] [address] Medical Oncologist 04/10/25 documented as of this encounter
--- OUTSIDE RECORDS SUMMARY | 2025-05-29 12:07 | XMS_ITS | Encounter Summary ---
Author Organization Healthcare Address [address] [place] [address] Care Team Providers Care Dancing Instructor Name Role Phone Isabella Saucedo Phong ALLEY TENDER Unavailable [phone] Jeannie Mcmillan RN Unavailable [phone] Ebony Shoemaker Unavailable [phone] Pcp, No Primary Care Provider Unavailabl e Rodney Gonzáles MD Unavailable [phone] Encounter Details Date Type Department Care Team (Late st Contact Info) Description 12/06/2024 Orders Only External Location 800 [place] [address] Provider, External Social History Tobacco Use Types [...] documented as of this encounter Care Teams Dancing Instructor Relationship Specialty Start Date End Date Pcp, No [address] [place] [address] PCP - General Family Medicine 03/20/25 Isabella Saucedo APRN 1210 [facility] [address] [place] [address] Referring Physician 02/26/25 Jeannie Mcmillan, RN [facility] ADMINISTRATION 800 [place] [address] Registered Nurse Transplant Surgery 03/08/25 Ebony Shoemaker [place] [id number] Registered Nurse Transplant Surgery 03/08/25 Rodney Gonzáles MD 1210 [facility] [address] [place] [address] Medical Oncologist 04/10/25 documented as of this encounter
--- OUTSIDE RECORDS SUMMARY | 2025-05-29 12:07 | XMS_ITS | Encounter Summary ---
Author Organization Healthcare Address [address] [place] [address] Care Team Providers Care Religious Ritual Slaughterer Name Role Phone Isabella Saucedo Phong OPERATIONS SPECIALIST Unavailable [phone] Jeannie Mcmillan RN Unavailable [phone] Ebony Shoemaker Unavailable [phone] Pcp, No Primary Care Provider Unavailabl e Rodney Gonzáles MD Unavailable [phone] Encounter Details Date Type Department Care Team (Late st Contact Info) Description 12/06/2024 Orders Only External Location 800 [place] [address] Provider, External Social History Tobacco Use Types [...] as of this encounter Care Teams Religious Ritual Slaughterer Relationship Specialty Start Date End Date Pcp, No [address] [place] [address] PCP - General Family Medicine 03/20/25 Isabella Saucedo APRN 1210 [facility] [address] [place] [address] Referring Physician 02/26/25 Jeannie Mcmillan, RN [facility]ANSPL[employer] ADMINISTRATION 800 [place] [address] Registered Nurse Transplant Surgery 03/08/25 Ebony Shoemaker [place] [id number] Registered Nurse Transplant Surgery 03/08/25 Rodney Gonzáles MD 1210 [facility] [address] [place] [address] Medical Oncologist 04/10/25 documented as of this encounter
--- OUTSIDE RECORDS SUMMARY | 2025-05-29 12:07 | XMS_ITS | Encounter Summary ---
Author Organization Healthcare Address [address] [place] [address] Care Team Providers Care Press Feeder Name Role Phone Isabella Saucedo Phong AUTOMATION QA ANALYST Unavailable [phone] Jeannie Mcmillan RN Unavailable [phone] Ebony Shoemaker Unavailable [phone] Pcp, No Primary Care Provider Unavailabl e Rodney Gonzáles MD Unavailable [phone] Encounter Details Date Type Department Care Team (Late st Contact Info) Description 05/26/2022 Orders Only External Location 800 [place] [address] Provider, External Social History Tobacco Use Types [...] documented as of this encounter Care Teams Press Feeder Relationship Specialty Start Date End Date Pcp, [place] [address] PCP - General Family Medicine 03/20/25 Isabella Saucedo APRN 1210 [facility] [address] [place] [address] Referring Physician 02/26/25 Jeannie Mcmillan, RN [facility]TRANSPLANT ADMINISTRATION 800 [place] [address] Registered Nurse Transplant Surgery 03/08/25 Ebony Shoemaker [place] [id number] Registered Nurse Transplant Surgery 03/08/25 Rodney Gonzáles MD 1210 [facility] [address] [place] [address] Medical Oncologist 04/10/25 documented as of this encounter
--- OUTSIDE RECORDS SUMMARY | 2025-05-29 12:07 | XMS_ITS | Encounter Summary ---
Author Organization Healthcare Address [address] [place] [address] Care Team Providers Care Operations Systems Specialist Name Role Phone Isabella Saucedo Phong GRAB SETTER Unavailable [phone] Jeannie Mcmillan RN Unavailable [phone] Ebony Shoemaker Unavailable [phone] Pcp, No Primary Care Provider Unavailabl e Rodney Gonzáles MD Unavailable [phone] Encounter Details Date Type Department Care Team (Late st Contact Info) Description 12/06/2024 Orders Only External Location 800 [place] [address] Provider, External Social History Tobacco Use Types [...] documented as of this encounter Care Teams Operations Systems Specialist Relationship Specialty Start Date End Date Pcp, No [address] [place] [address] PCP - General Family Medicine 03/20/25 Isabella Saucedo APRN 1210 [facility] [address] [place] [address] Referring Physician 02/26/25 Jeannie Mcmillan, RN CH[facility]TRANSPLANT ADMINISTRATION 800 [place] [address] Registered Nurse Transplant Surgery 03/08/25 Ebony Shoemaker [place] [id number] Registered Nurse Transplant Surgery 03/08/25 Rodney Gonzáles MD 1210 [facility] [address] [place] [address] Medical Oncologist 04/10/25 documented as of this encounter
--- OUTSIDE RECORDS SUMMARY | 2025-05-29 12:07 | XMS_ITS | Encounter Summary ---
Author Organization Healthcare Address [address] [place] [address] Care Team Providers Care Flame Cutting Supervisor Name Role Phone Isabella Saucedo Phong SENIOR GRANTS OFFICER Unavailable [phone] Jeannie Mcmillan RN Unavailable [phone] Ebony Shoemaker Unavailable [phone] Pcp, No Primary Care Provider Unavailabl e Rodney Gonzáles MD Unavailable [phone] Encounter Details Date Type Department Care Team (Late st Contact Info) Description 11/22/2024 Orders Only External Location 800 [place] [address] Provider, External Social History Tobacco Use Types [...] documented as of this encounter Care Teams Flame Cutting Supervisor Relationship Specialty Start Date End Date Pcp, No [address] [place], [place] [id number] PCP - General Family Medicine 03/20/25 Isabella Saucedo APRN 1210 [facility] [address] [place] [address] Referring Physician 02/26/25 Jeannie Mcmillan, RN CH[facility]TRANSPLANT ADMINISTRATION 800 [place] [address] Registered Nurse Transplant Surgery 03/08/25 Ebony Shoemaker [place] [id number] Registered Nurse Transplant Surgery 03/08/25 Rodney Gonzáles MD 1210 [facility] [address] [place] [address] Medical Oncologist 04/10/25 documented as of this encounter
--- OUTSIDE RECORDS SUMMARY | 2025-05-29 12:07 | XMS_ITS | Encounter Summary ---
Author Organization Healthcare Address [address] [place] [address] Care Team Providers Care Financial Rep Name Role Phone Isabella Saucedo Phong PLANT PRODUCTION MANAGER Unavailable [phone] Jeannie Mcmillan RN Unavailable [phone] Ebony Shoemaker Unavailable [phone] Pcp, No Primary Care Provider Unavailabl e Rodney Gonzáles MD Unavailable [phone] Encounter Details Date Type Department Care Team (Late st Contact Info) Description 05/01/2025 Orders Only External Location 800 [place] [address] Chris Lazo MD [address] [address] Social History Tobacco Use Types [...] any time in the past 12 m [facility], were you homeless or living in a assisted (including now)? No 05/02/2025 [facility] Utilities Answer Date Recorded In the [...] documented as of this encounter Care Teams Financial Rep Relationship Specialty Start Date End Date Pcp, No [address] [place] [address] PCP - General Family Medicine 03/20/25 Isabella Saucedo APRN [address] [place] [address] [address] [place] [address] Referring Physician 02/26/25 Jeannie Mcmillan, NIURKA CH-TRANSPLANT ADMINISTRATION 800 [place] [address] Registered Nurse Transplant Surgery 03/08/25 [place] [address] Registered Nurse Transplant Surgery 03/08/25 Rodney Gonzáles MD 1210 [facility] [address] [place] [address] Medical Oncologist 04/10/25 documented as of this encounter
--- OUTSIDE RECORDS SUMMARY | 2025-05-29 12:07 | XMS_ITS | Encounter Summary ---
Author Organization Healthcare Address [address] [place] [address] Care Team Providers Care Hog Ringer Name Role Phone Isabella Saucedo Phong DELIVERY DIRECTOR Unavailable [phone] Jeannie Mcmillan RN Unavailable Ebony Shoemaker Unavailable [phone] Pcp, No Primary Care Provider Unavailabl e Rodney Gonzáles MD Unavailable [phone] Encounter Details Date Type Department Care Team (Late st Contact Info) Description 12/07/2024 Orders Only External Location 800 [place] [address] Provider, External Social History Tobacco Use Types [...] documented as of this encounter Care Teams Hog Ringer Relationship Specialty Start Date End Date Pcp, [place] [address] PCP - General Family Medicine 03/20/25 Isabella Saucedo APRN 1210 [facility] [address] [place] [address] Referring Physician 02/26/25 Jeannie Mcmillan, RN CH-TRANSPLANT ADMINISTRATION 800 [place] [address] Registered Nurse Transplant Surgery 03/08/25 Ebony Shoemaker [place] [id number] Registered Nurse Transplant Surgery 03/08/25 Rodney Gonzáles MD 1210 [facility] [address] [place] [address] Medical Oncologist 04/10/25 documented as of this encounter
--- OUTSIDE RECORDS SUMMARY | 2025-05-29 12:07 | XMS_ITS | Encounter Summary ---
Author Organization Healthcare Address [address] [place] [address] Care Team Providers Care Sed [employer] Teacher Name Role Phone Isabella Saucedo Phong ELECTRICIAN WIRING Unavailable [phone] Jeannie Mcmillan RN Unavailable [phone] Ebony Shoemaker Unavailable [phone] Pcp, No Primary Care Provider Unavailabl e Rodney Gonzáles MD Unavailable [phone] Encounter Details Date Type Department Care Team (Late st Contact Info) Description 12/06/2024 Orders Only External Location 800 [place] [address] Provider, External Social History Tobacco Use Types [...] documented as of this encounter Care Teams Sed High School Teacher Relationship Specialty Start Date End Date Pcp, No [address] [place] [address] PCP - General Family Medicine 03/20/25 Isabella Saucedo APRN 1210 [facility] [address] [place] [address] Referring Physician 02/26/25 Jeannie Mcmillan, RN CH-TRANSPLANT ADMINISTRATION 800 [place] [address] Registered Nurse Transplant Surgery 03/08/25 Ebony Shoemaker [place] [id number] Registered Nurse Transplant Surgery 03/08/25 Rodney Gonzáles MD 1210 [facility] [address] [place] [address] Medical Oncologist 04/10/25 documented as of this encounter
--- OUTSIDE RECORDS SUMMARY | 2025-05-29 12:07 | XMS_ITS | Encounter Summary ---
Author Organization Healthcare Address [address] [place] [address] Care Team Providers Care Editorial Clerk Name Role Phone Isabella Saucedo Phong TANK BOTTOM ASSEMBLER Unavailable [phone] Jeannie Mcmillan RN Unavailable [phone] Ebony Shoemaker Unavailable [phone] Pcp, No Primary Care Provider Unavailabl e Rodney Gonzáles MD Unavailable Encounter Details Date Type Department Care Team (Late st Contact Info) Description 11/15/2024 Orders Only External Location 800 [place] [address] Provider, External Social History Tobacco Use Types [...] as of this encounter Care Teams Editorial Clerk Relationship Specialty Start Date End Date Pcp, [place] [address] PCP - General Family Medicine 03/20/25 Isabella Saucedo APRN 1210 [facility] [address] [place] [address] Referring Physician 02/26/25 Jeannie Mcmillan, RN CH-TRANSPLANT ADMINISTRATION 800 [place] [address] Registered Nurse Transplant Surgery 03/08/25 Ebony Shoemaker [place] [id number] Registered Nurse Transplant Surgery 03/08/25 Rodney Gonzáles MD 1210 [facility] [address] [place] [address] Medical Oncologist 04/10/25 documented as of this encounter
--- OUTSIDE RECORDS SUMMARY | 2025-05-29 12:07 | XMS_ITS | Encounter Summary ---
Author Organization Healthcare Address [address] [place] [address] Care Team Providers Care [employer] Name Role Phone Isabella Saucedo SALES AND MANAGEMENT TRAINEE Unavailable [phone] Jeannie Mcmillan RN Unavailable [phone] Ebony Shoemaker Unavailable [phone] Pcp, No Primary Care Provider Unavailabl e Rodney Gonzáles MD Unavailable [phone] Reason for Referral * Transplant (Routine) [...] [address] [place] [address] [place], [place] [address] Phone: tel: fax: Referral ID Status Reason Start Date Expiration Date Visits Requested Visits Authorized [id number] Authorized Specialty Services Required 02/26/[phone] Encounter Details Date Type Department Care Team (Late st Contact Info) Description 02/26/2025 [facility] 800 [place] [address] Isabella Saucedo APRN [address] [place] [address] [place] [address] Invasion of liver, gallbladder, pancreas, ipsilateral branch [...] documented as of this encounter Care Teams [employer] Relationship Specialty Start Date End Date Pcp, No [address] [place] [address] PCP - General Family Medicine 03/20/25 Isabella Saucedo APRN [address] [place] [address] Referring Physician 02/26/25 Jeannie Mcmillan RN CH-TRANSPLANT ADMINISTRATION 800 [place] [address] Registered Nurse Transplant Surgery 03/08/25 [place] [address] Registered Nurse Transplant Surgery 03/08/25 Rodney Gonzáles MD [address] [place] [address] [address] [place] [address] Medical Oncologist 04/10/25 documented as of this encounter
--- OUTSIDE RECORDS SUMMARY | 2025-05-29 12:07 | XMS_ITS | Encounter Summary ---
Author Organization Healthcare Address [address] [place] [address] Care Team Providers Care Financial Assistance Specialist Name Role Phone Isabella Saucedo Phong NET COORDINATOR Unavailable [phone] Jeannie Mcmillan RN Unavailable [phone] Ebony Shoemaker Unavailable [phone] Pcp, No Primary Care Provider Unavailabl e Rodney Gonzáles MD Unavailable [phone] Encounter Details Date Type Department Care [...] were you homeless or living in a chcf (including now)? No 05/02/2025 [facility] Utilities Answer Date Recorded In the past [...] as of this encounter Care Teams Financial Assistance Specialist Relationship Specialty Start Date End Date Pcp, No [address] [place] [address] PCP - General Family Medicine 03/20/25 Isabella Saucedo APRN [address] [place] [address] [place] [address] Referring Physician 02/26/25 Jeannie Mcmillan, RN CH-TRANSPLANT ADMINISTRATION 800 [place] [address] Registered Nurse Transplant Surgery 03/08/25 [place] [address] Registered Nurse Transplant Surgery 03/08/25 Rodney Gonzáles MD [address] [place] [address] [place] [address] Medical Oncologist 04/10/25 documented as of this encounter
[2025-05-29 12:34] LABS: Microscopic, Urine URINE MICROSCOPIC (MICROSCOPIC)
[2025-05-29 12:40] LABS: Ammonia < 9 umol/L (9-30)
[2025-05-29 12:41] LABS: Alanine Aminotransferase 79 U/L (12-78); Albumin Level 3.3 g/dl (3.5-5.0); Albumin/Globulin Ratio 0.9 (1.1-1.8); Alkaline Phosphatase 515 U/L (38-126); Anion Gap 12.5 mEq/L (5-15); Aspartate Amino Transferase 265 U/L (17-59); Bilirubin,Total 6.1 mg/dl (0.2-1.3); Blood Urea Nitrogen 18 mg/dl (9-20); Calcium 9.2 mg/dl (8.4-10.2); Carbon Dioxide 29 mmol/L (22.0-30.0); Chloride 100 mmol/L (98-107); Creatinine,Serum 1.10 mg/dl (0.66-1.25); Estimated Glomerular Filt Rate 67 ml/min (>60); GFR (African American) 81 ML/MIN (>60); Globulin 3.5 g/dL (1.3-3.2); Glucose 146 mg/dl (74-100); Potassium 3.5 mmoL/L (3.5-5.1); Sodium 138 mmol/L (136-145); Total Protein,Serum 6.8 g/dl (6.3-8.2)
[2025-05-29 12:51] LABS: Bilirubin,Urine Negative (Negative); Glucose,Urine (UA) 3+ (Negative); Ketones,Urine Negative (Negative); Leukocyte Esterase,Urine Negative (Negative); PH,Urine 7.0 (5.0-8.5); Protein,Urine Negative (Negative); Specific Gravity, Urine 1.010 (1.005-1.030); Urobilinogen,Urine 4.0 EU/dl (0.2)
[2025-05-29 12:53] LABS: Color,Urine Dark Yellow (Yellow)
[2025-05-29 13:03] LABS: Bacteria,Urine 1+ /lpf; Squamous Epithelial Cell,Urine Occasional #/hpf (0-5); WBC,Urine Occasional #/hpf (0-3)
[2025-05-29 13:22] LABS: Bilirubin,Direct 3.1 mg/dl (0.0-0.4); Bilirubin,Indirect 2.8 mg/dL (0.0-0.9); Bilirubin,Total 5.9 mg/dl (0.2-1.3); Bilirubin,Unconjugated 2.9 mg/dL (0.0-1.1)
== END 2025-05-29 23:59 | disposition home or self-care (01) ==
LOC: INF 11:55
PROVIDERS: PCP Family Medicine; Visit Provider Internal Medicine Medical Oncology
DX: C22.0 Liver cell carcinoma (principal)
CPT/HCPCS: 36415; 80053; 81001; 82140; 82247; 82248

== ENCOUNTER 2025-05-30 10:20 | Outpatient (CLI) | payer MEDICARE, MEDICAID, SELFPAY ==
--- OUTSIDE RECORDS SUMMARY | 2008-06-24 20:00 | XMS_ITS | Continuity of Care Document ---
Author Organization [facility] Address [address] [facility] [place] [address] Phone Care Team Providers Care Supervisor Cook House Name Role Phone No Information Unavailable Unavailable Advance Directives Directive Yes / No Effective Date File Name No Information Encounters Encounter Description Practice Location Reason(s) For Visit Diagnoses Date Provider Providers Copied on Encounter [facility] , [address] [place], [address], tel:[phone] LISA Zayas Ash No Information No Information Family History Family Member Type Diagnosis Age At Onset No Information Payers Payer name Insurance type Covered constitution party ID Authoriza tion(s) No Information Social History Type Description Quantity Date Captured Comments Sex Male Smoking Status No Information Chief Complaint And Reason For Visit No Information Reason For Referral Reason For Referral No Information History Of Present Illness Encounter Date Complaint History Of Prese nt Illness No Information Functional Status Date Functional Assessmen t No Information Instructions Date Instruction Additional Infor mation No Information Assessments Type Assessment Date No Information Patient Care Teams Name Effective Dates (start - stop) Status Members No Information
--- OUTSIDE RECORDS SUMMARY | 2016-03-04 08:15 | XMS_ITS | Encounter Summary ---
Author Organization [facility] [place] [address] Care Team Providers Care Lurer Name Role Phone Jan Sin MD Unavailable [phone] Carlton James DO Primary Care Provide r Macario Pryor MD Unavailable Unavailabl e Encounter Details Date Type Department Care Team (Latest Contact Info) Description 03/04/2016 8:15 AM EDT Hospital Encounter [facility] [address] [facility] [place] [address] Poppy Quintero MD [address] [place], [place] [id number] Left without seen Social History Tobacco Use Types Packs/Day Years Used Date Smoking Tobacco: Every Day Cigarettes 2 40.7 Started: 08/30/1973; Last attempted to quit: 08/29/2005 Smokeless Tobacco: Never Comments:only smokes once in awhile Alcohol Use Standard Drinks/Week Comments No 0 (1 standard drink = 0.6 oz pur e alcohol) none in 7 yrs PHQ-2 Answer Date Recorded PHQ-2 Total Score 3 04/23/2025 Sexually Active Control Partners Comments Not Currently Female Sex and Gender Information Value Date Recorded Sex Assigned at Not on file Legal Sex Male 11:05 PM EDT Gender Identity Not on file Sexual Orientation Not on file COVID-19 Exposure Response Date Recorded In the last 10 days, have yo u been in contact with someone who was confirmed or suspected to have Coronavirus/COVID-19? No / Unsure 03/26/2023 8:54 AM EDT documented as of this encounter Functional Status * Cognitive and Functional Status Question Answer Date of Assessment Author Is the person deaf or does h e/she have serious difficulty hearing? No 11/24/2021 10:05 AM EDT Danny Logan MA Is the person blind or does he/she have serious difficulty seeing even when wearing glasses? No 11/24/2021 10:05 AM EDT Danny Jones MA Does this person have seriou s difficulty walking or climbing stairs? No 11/24/2021 10:05 AM EDT Danny Jones MA Does this person have diffic ulty dressing or bathing? No 11/24/2021 10:05 AM EDT Danny Jones MA * Alcohol Screening Score Answer Date of Assessment Author 0 11/17/2021 5:00 PM EDT Esteban Duarte RN * Drug Screening Score Answer Date of Assessment Author 0 11/17/2021 5:00 PM EDT Esteban Duarte RN * Question Answer Date of Assessment Author How often do you have a drin k containing alcohol? 0 11/17/2021 5:00 PM EDT Esteban Duarte RN How many drinks containing a lcohol do you have on a typical day when you are drinking? 0 11/17/2021 5:00 PM EDT Esteban Duarte RN How often do you have six or more drinks on one occasion? 0 11/17/2021 5:00 PM EDT Ramiro Duarte RN AUDIT-C to Determine Rows 4-10 0 11/17/2021 5:00 PM EDT Esteban Duarte RN * PHQ-2 Total Score Answer Date of Assessment Author 3 04/23/2025 8:00 AM EDT Manisha Ortiz RMA * PHQ-9 Total Score Answer Date of Assessment Author 15 04/23/2025 8:00 AM EDT Manisha Ortiz RMA * Question Answer Date of Assessment Author Do you ever wish you weren't alive anymore? (Past 1 Month) 0 11/17/2021 11:41 AM EDLennie Araujo RN Have you thought about doing something to make youself not alive anymore? (Past 1 Month) 0 11/17/2021 11:41 AM Sarah Rob RN * Recent Risk Level: Answer Date of Assessment Author No Risk, Screening Complete 11/17/2021 11:41 AM Sarah Rob RN * Question Answer Date of Assessment Author Little interest or pleasure in doing things 0 04/23/2025 8:00 AM Elizabeth Roberts RMA Feeling down, depressed, or hopeless 3 04/23/2025 8:00 AM Elizabeth Roberts RMA Trouble falling or staying asleep, or sleeping too much 1 04/23/2025 8:00 AM Elizabeth Roberts RMA Feeling tired or having dennis le energy 3 04/23/2025 8:00 AM Elizabeth Roberts RMA Poor appetite or overeating 3 04/23/2025 8: 00 AM Elizabeth Roberts RMA Feeling bad about yourself - or that you are a failure or have let yourself or your family down 2 04/23/2025 8:00 AM Elizabeth Roberts RMA Trouble concentrating on things, such as reading the newspaper or watching television 3 04/23/2025 8:00 AM Elizabeth Roberts RMA Moving or speaking so slowly that other people could have noticed. Or the opposite - being so fidgety or restless that you have been moving around a lot more than usual 0 04/23/2025 8:00 AM Elizabeth Roberts RMA Thoughts that you would be better off , or of hurting yourself in some way 0 04/23/2025 8:00 AM Elizabeth Roberts RMA * PHQ-2 Total Score Answer Date of Assessment Author 3 04/23/2025 8:00 AM Manisha Roberts RMA * Suicide Severity Rating Answer Date of Assessment Author No Risk 01/18/2024 3:32 PM EDT Jer Sena RN * [place] Suicide Severity Rating Scale (Q shift for moderate and high) Question Answer Date of Assessment Author 1. In the past month, have you wished you were or wished you could go to sleep and not wake up? 0 01/18/2024 3:32 PM EDT Jer Sena RN 2. In the past month, have you actually had any thoughts of killing yourself? (If no, skip to question 6) 0 01/18/2024 3:32 PM EDT Jer Sena RN 6. Have you ever done anything, started to do anything, or prepared to do anything to end your life? 0 01/18/2024 3:32 PM EDT Jer Sena RN documented as of this encounter Mental Status * Cognitive and Functional Status Question Answer Entry Date Author Because of a physical, menta l or emotional condition, does this person have difficulty doing errands alone such as visiting a doctor's office or shopping? No 11/24/2021 10:05 AM EDT Danny Jones MA Because of a physical, menta l or emotional condition, does this person have serious difficulty concentrating, remembering or making decisions? No 11/24/2021 10:05 AM EDT Danny Jones MA documented in this encounter Plan of Treatment Not on file documented as of this encounter Goals Goal Patient Goal Type Associated Problems Recent Progress Patient-Stated? Author Blood Pressure < 140/90 Blood Pressure 124/50(2024 8:47 AM EDT) No Jun Cruz MD Eat better, exercise, reach an ideal body weight General No Solo Lowry RMA Stay Tobacco Free Lifestyle No Solo Lowry RMA LDL Direct < 100 Result Component No Abdiaziz Cheng MD documented as of this encounter Visit Diagnoses Not on filedocumented in this encounter Additional Health Concerns Infection Onset Date Last Indicated Resolved Time R/O COVID-19 11/17/2021 11/17/2021 11/17/2021 12:4 8 PM EDT documented as of this encounter Care Teams Lurer Relationship Specialty Start Date End Date Carltno James DO [address] [place] [address] PCP - General Family Medicine 05/01/15 11/26/16 Macario Pryor MD [address] [place] [address] PCP - Hematology/Oncology Internal Medicine-Medical Oncology 11/12/15 Jan Sin MD [address] [place] [address] [place], [place] [id number] Internal Medicine-Cardiovascul ar Disease 08/28/14 documented as of this encounter
--- OUTSIDE RECORDS SUMMARY | 2023-06-24 09:41 | XMS_ITS | Continuity of Care Document ---
Author Organization [facility] o Address [address] [place] [address] Phone Care Team Providers Care Web Analyst Name Role Phone Morteza RIOS, Erasto Unavailable Unavailable Advance Directives Directive Yes / No Effective Date File Name No Information Encounters Encounter Description Practice Location Reason(s) For Visit Diagnoses Date Provider Providers Copied on Encounter [facility] [place], [facility] [place], [address], [place] tel:[phone] 00 Briana Cherry No Information 3 Morteza Maurer. [address] [place], [place], [id number], [place]. tel:[phone] Family History Family Member Type Diagnosis Age At Onset No Information Payers Payer name Insurance type Covered alliance party ID Authoriza tion(s) No Information Social [...]
--- OUTSIDE RECORDS SUMMARY | 2025-04-23 09:00 | XMS_ITS | Encounter Summary ---
Author Organization [place] [address] Care Team Providers Care Cane Flume Feeding Machine Operator Name Role Phone Jan Sin MD Unavailable [phone] Macario Pryor MD Un[facility] Resendez MD Primary Care Provider [phone] Reason for Visit * Reason Comments Annual Exam Encounter Details Date Type Department Care Team (Late st Contact Info) Description 04/23/2025 9:00 AM EDT Office Visit SEP Luis [facility] [place] [address] Cr Resendez MD [address] [place] [address] TRISTIAN MARTINEZ [id number] Encounter for Medicare annual wellness exam (Primary [...] Under treatment with GI and oncology at [facility]. On once monthly chemotherapy atthis time. [...] Currently being treated for hepatocellular carcinoma at [facility] Fall Risk Assessment: Fall Risk Assessment: [...] Under treatment with GI and oncology at [facility]. On once monthly chemotherapy atthis time. [...] prostate cancer screening Bilateral impacted cerumen Orders: [place] REMOVAL IMPACTED CERUMEN IRRIGATION/LVG UNILAT Cerumen impaction [...] visit. If you have a power of attorney recruiter stute, we should also have a copy [...] provided to the patient digitally through their [employer] account or with a paper copy if the patient doesn't have an active MyChart Account. A copy of today's progress note with recommendations below is alsoavailable electronically for patients with an active [employer] account per the Federal Cures Act. TheAVS [...] disease) (HCC) Depression Headache(784.0) Hypertension Kidney stone [place] (myocardial infarction) (HCC) 4 times Neuromuscular disorder (HCC) back and left leg Other disorders of kidney and ureter trys to go often Shortness of breath Past Surgical History: Procedure Laterality Date BACK SURGERY 08/30/1997 CARDIAC SURGERY cabg 2 times CARDIAC SURGERY 2019 pace maker CATARACT REMOVAL 08/30/2007 COLONOSCOPY N/A 10/14/2015 COLONOSCOPY snare polypectomy; Surgeon: Poppy Quintero MD; Location: [facility]; Service: Endoscopy CORONARY ANGIOPLASTY WITH STENT PLACEMENT 01/04/2024 [facility] EYE SURGERY sandra cataract HERNIA REPAIR NECK SURGERY 12/06/2024 [facility] SPINAL CORD DECOMPRESSION 08/30/1998 UPPER GASTROINTESTINAL ENDOSCOPY N/A 10/30/2015 ESOPHAGOGASTRODUODENOSCOPY with biopsies; Surgeon: Poppy Quintero MD; Location: [facility]; Service: Endoscopy VASCULAR SURGERY spinal cord [...] Tablet by mouth daily. 90 Tablet 3 wocvvwchili-timxslqlt-xlhetauu (TRELEGY ELLIPTA) 100-62.5-25 mcg Inhl Disk with [...] SHAKE WELL nalOXone (NARCAN) 4 mg/actuation Nasl [place], Non-Aerosol 0.1 mL by Nasal route daily [...] Food Insecurity: Patient Declined (12/07/2024) Received from [facility] Hunger Vital Sign Worried About Running Out of Food in the Last Year: Patient declined Ran Out of Food in the Last Year: Patient declined Transportation Needs: Patient Declined (12/07/2024) Received from [facility] PRAPARE - Transportation Lack of Transportation (Medical): Patient declined Lack of Transportation (Non-Medical): Patient declined Housing Stability: Patient Declined (12/07/2024) Received from [facility] Housing Stability Vital Sign Unable to Pay [...] Type Priority Associated Diagnoses Orde r Schedule [place] REMOVAL IMPACTED CERUMEN IRRIGATION/LVG UNILAT [place] Charge Routine Bilateral impacted cerumen Ordered: 04/23/2025 [...] 0.08 <=4.00 ng/mL 04/23/2025 3:49 PM EDT [facility] [employer] Blood VENOUS BLOOD / Unknown Venipuncture / Unknown 04/23/2025 9:47 AM EDT 04/23/2025 9:47 AM EDT Narrative [facility] - 04/23/2025 3:49 PM EDT The Ricky [...] Resendez MD CHEMISTRY ORDERABLES Final Res ult [facility] [employer] [address] [facility], [place] [address] * LIPID PANEL REFLEX (04/23/2025 9:47 AM EDT) Cholesterol 98 <200 mg/dL 04/23/2025 4:37 PM EDT [facility] [employer] Comment: < 200 Desirable 200 - 239 Borderline High >= 240 High Triglyceride 38 <150 mg/dL 04/23/2025 4:37 PM EDT [employer] Comment: < 150 Normal 150 - 199 Borderline High 200 - 499 High >= 500 Very High HDL 40 >=40 mg/dL 04/23/2025 4:37 PM EDT [employer] Comment: > 60 Optimal 40 - 60 Acceptable < 40 Low LDL Calculated 47 <100 mg/dL 04/23/2025 4:37 PM EDT [facility] [employer] Comment: < 100 Optimal 100 - 129 Near or above optimal 130 - 159 Borderline High 160 - 189 High >= 190 Very High The National Institutes of Health (NIH) equation is used for all lipid panels that report calculated LDL (LDL-C). Non-HDL-C Calculated 58 <=129 mg/dL 04/23/2025 4:37 PM EDT [facility] [employer] Comment: <130 Desirable 130-159 Above Desirable 160-189 Borderline High 190-219 High >= 220 Very High Fasting Specimen? Yes None 025 4:37 PM EDT [facility] Blood VENOUS BLOOD / Unknown Venipuncture / Unknown 04/23/2025 9:47 AM EDT 04/23/2025 9:47 AM EDT Cr Resendez MD CHEMISTRY ORDERABLES Final Res ult Performing Organization Address [facility] Co de Phone Number [facility] [employer] [address] , [address] [place], [place] [id number] * TSH REFLEX TO FT4 (04/23/2025 9:47 AM EDT) TSH Reflex 0.889 0.270 - 4.200 mcIU/mL 04/23/2025 4:37 PM EDT [facility] Blood VENOUS BLOOD / Unknown Venipuncture / Unknown 04/23/2025 9:47 AM EDT 04/23/2025 9:47 AM EDT Narrative [facility] - 04/23/2025 4:37 PM EDT Ingestion of fernanda doses of biotin (>5 mg/day) taken within 8 hours of drawing blood sample can interfere with this immunoassay test. Cr Resendez MD CHEMISTRY ORDERABLES Final Res ult Performing Organization Address [facility] Co de Phone Number [facility] [employer] [address] , [address] [place], [place] [id number] * (ABNORMAL) CBC WITH DIFF (04/23/2025 9:47 AM EDT) Pathologist [facility] WBC 7.3 3.7 - 10.3 x10(3)/mcL 04/23/2025 [...] 4:08 PM EDT [facility] [place] # 1.2(H) 0.3 - 0.9 x10(3)/mcL 04/23/2025 [...] Re sult [facility] [address] [facility] , [place] [address] * (ABNORMAL) COMPREHENSIVE METABOLIC PANEL (04/23/2025 9:47 [...] mg/dL 04/23/2025 4:37 PM EDT [facility], [facility] BUN 13 8 - 23 mg/dL 04/23/2025 4:37 PM EDT [facility] LAB [facility], [facility] Creatinine 0.84 0.67 - 1.30 mg/dL 04/23/2025 4:37 PM EDT [facility], [facility] Albumin 3.8 3.2 - 4.6 gm/dL 04/23/2025 4:37 PM EDT [facility] Total Protein 8.3 6.4 - 8.3 gm/dL 04/23/2025 4:37 PM EDT [facility] Bili Total 1.2 0.2 - 1.4 mg/dL 04/23/2025 4:37 PM EDT [facility] ALT 26 <=41 U/L 04/23/2025 4:37 PM EDT [facility] AST 74(H) <=40 U/L 04/23/2025 4:37 PM EDT [facility] Alk Phos 142(H) 40 - 129 U/L 04/23/2025 4:37 PM EDT [facility] eGFR (CKD-EPIcr 2020) 96 >=60 mL/min/1.7 3 m2 04/23/2025 4:37 PM EDT [facility] Comment:Estimated GFR was ca lculated using the CKD-EPIcr (2020) equation refit without race. The equation is recommended by the National Kidney Foundation - [place] Society of Nephrology Task Force. Blood VENOUS BLOOD / Unknown Venipuncture / Unknown 04/23/2025 9:47 AM EDT 04/23/2025 9:47 AM EDT us Cr Resendez MD CHEMISTRY ORDERABLES Final Res ult [facility] [address] [facility] , [place] [address] * (ABNORMAL) HEMOGLOBIN A1C (04/23/2025 9:47 AM EDT) Hgb A1C 5.7(H) 4.2 - 5.6 % 04/23/2025 5:18 PM EDT [facility] Est. Avg Glucose 117 mg/dL 04/23/2025 5:18 PM EDT [facility] [employer] Blood VENOUS BLOOD / Unknown Venipuncture / Unknown 04/23/2025 9:47 AM EDT 04/23/2025 9:47 AM EDT Narrative [facility] - 04/23/2025 5:18 PM EDT REFERENCE RANGE: Normal: 4.0-5.6% Pre-diabetes: 5.7-6.4% Provisional diagnosis of diabetes: >6.4% Hgb F>10% and anything which shortens red cell survival, such as hemolytic anemia, or unstable hemoglobin variants such as HbSS, HbSC, or HbCC, will lower the HbA1c value associated with a given level of glycemic control. us Cr Resendez MD CHEMISTRY ORDERABLES Final Res ult [facility] [employer] [address] [place] [address] , [place] [address] documented in this encounter Visit Diagnoses Diagnosis [...] documented as of this encounter Care Teams Cane Flume Feeding Machine Operator Relationship Specialty Start Date End Date Macario Pryor MD [address] [place] [address] TRISTIAN NAILS [address] PCP - Hematology/Oncology Internal Medicine-Medical Oncology 11/12/15 Cr Resendez MD [address] [place] [address] TRIST[place] MARTINEZ [address] PCP - General Family Medicine 11/24/21 Jan Sin MD [address] [place] [address] [place] NAILS [id number] Internal Medicine-Cardiovascul ar Disease 08/28/14 documented as of this encounter
--- OUTSIDE RECORDS SUMMARY | 2025-04-23 09:30 | XMS_ITS | Encounter Summary ---
Author Organization [place] [address] Care Team Providers Care Air Chief Marshal Name Role Phone Jan Sin MD Unavailable [phone] Macario Pryor MD Unavailable Cr Rodriguez MD Primary Care Provider [phone] Reason for Visit * Reason Comments Care Management - Face To Face Care Transition Advance Care Planning Encounter Details Date Type Department Care Team (Latest Contact Info) Description 04/23/2025 9:30 AM EDT Clinical Support [facility] [place] [facility] [address] [place] [address] Elizabeth Reynoso, NIURKA Encounter for support [...] presents for follow up visit with Office Bicycle Rental Clerk (OCC) Reason for visit: Advanced Care Planning Visit Type: Face to Face Assessment: art coordinator met with patient and spouse to [...] Educated patient on: Advanced Care Planning Handouts: [place] Living Will x 2 copies Handouts provided in person Care Coordination Business Card Goals: One-time assessment Next Steps: Bicycle Rental Clerk contact information given / reviewed Notes: No identified SDOH concerns after SDOH assessment review documented in this encounter Miscellaneous Notes * ACP (Advance Care Planning) - Elizabeth Reynoso RN - 04/23/2025 9:30 AM EDT Advance Care Planning discussion: ACP discussion: This mortgage loan underwriter and patient addressed ACP including explanation [...] documented as of this encounter Care Teams Air Chief Marshal Relationship Specialty Start Date End Date Macario Pryor MD [address] [place] [address] TRIST[place] NAILS [address] PCP - Hematology/Oncology Internal Medicine-Medical Oncology 11/12/15 Cr Resendez MD [address] [place] [address] TRISTIAN MARTINEZ [address] PCP - General Family Medicine 11/24/21 Jan Sin MD [address] [place] [address] TRISTIAN NAILS [address] Internal Medicine-Cardiovascul ar Disease 08/28/14 documented as of this encounter
--- OUTSIDE RECORDS SUMMARY | 2025-05-01 16:53 | XMS_ITS | Encounter Summary ---
Author Organization Healthcare Address [address] [place] [address] Care Team Providers Care Machine Striper Name Role Phone Isabella Saucedo Phong SPRING CRATER Unavailable [phone] Jeannie Mcmillan RN Unavailable [phone] Ebony Shoemaker Unavailable [phone] Pcp, No Primary Care Provider Unavailabl e Rodney Gonzáles MD Unavailable [phone] Reason for Referral * Consultation (Routine) - Authorized Specialty Diagnoses / Procedures Referred By Contac t Referred To Contact Diagnoses RUQ abdominal pain Ang Will MD [address] [place] [address] Phone: tel: fax: Referral ID Status Reason Start Date Expiration Date V isits Requested Visits Authorized [id number] Authorized 05/05/2025 11/04/2026 1 1 Reason for Visit * Reason Comments Abdominal Pain * Auth/Cert (Routine) Specialty Diagnoses / Procedures Referred By Contarjun t Referred To Contact Diagnoses Abdominal pain Liver Cancer Britney Rai MD [address] [place] [address] Phone: tel: fax: PAV A Inpatient [address] [place] [address] Referral ID Status Reason Start Date Expiration Date Visits Re quested Visits Authorized [id number] 1 1 Encounter Details Date Type Department Care Team (Latest Contact Info) Description 05/01/2025 4:53 PM EDT - 05/05/2025 2:45 PM EDT Hospital Encounter [facility] Inpatient [address] [place] [address] Willy Saleh MD [address] [place] [address] Britney Rai MD [address] [place] [address] Ang Will MD [address] [place] [address] Generalized abdominal pain (Primary Dx); [...] any time in the past 12 m [facility], were you homeless or living in a long-term (including now)? No 05/02/2025 [facility] Utilities Answer Date Recorded In the past [...] Will MD PCP name and Address: Pcp, [address] [address] Referring provider name and address: Cr Lazo MD [address] [place] [address] Chief Concern, Brief History of Present Illness, and Hospital Course Rl Steward is a 65 y.o. male PMHx of COPD, tobacco dependence, ischemic heart disease, coronaryartery disease, anxiety, depression, chronic back pain, decompensated cirrhosis, and newly diagnosed hepatocellular carcinoma that presented to the emergency department as a transfer from [facility] with RUQ pain and concern for cholecystitis [...] #Cancer related pain (POA0 -Receiving chemotherapy at [facility]. Last dose of chemo was on 03/29. [...] overall morbidity & mortality. -Monitor albumin -Consult Broadcast Maintenance Engineer -Continue megace #Nicotine dependence (POA) -Smokes about [...] Ellipta 100-62.5-25 MCG/ACT aerosol powder Generic drug: Qivdznzmgae-Edegmzqbi-Ciedmx INHALE 1 PUFF INTO THE LUNGS DAILY [...] Flowsheets (Taken 05/05/2025 0921) Pain Management Interventions: tncqtx-kpl-titdz dosing utilized medication (see MAR) care clustered [...] Flowsheets (Taken 05/05/2025 0921) Pain Management Interventions: maengq-qua-jzxrf dosing utilized medication (see MAR) care clustered [...] Flowsheets (Taken 05/05/2025 0921) Pain Management Interventions: jrtayd-hoh-snskx dosing utilized medication (see MAR) care clustered [...] Comfort Flowsheets (Taken 05/05/202548) Pain Management Interventions: ziaoaw-imy-drgjy dosing utilized care clustered pain management plan [...] Plan Flowsheets (Taken 05/05/202548) Pain Management Interventions: uchagp-ehk-jeirx dosing utilized care clustered pain management plan [...] Inhalation, 4x daily PRN, Crane, Lexi L, SPRING CRATER calcium carbonate (Tums) chewable tablet 500 mg, 500 mg, Oral, q4h PRN, Crane, Lexi L, SPRING CRATER cyclobenzaprine (Flexeril) tablet 5 mg, 5 mg, Oral, BID PRN, Crane, Lexi L, SPRING CRATER, 5 mg at 736 escitalopram (Lexapro) tablet 20 mg, 20 mg, Oral, Daily, Crane, Lexi L, SPRING CRATER, 20 mg at 05/04/25826 furosemide (Lasix) tablet 20 mg, 20 mg, Oral, Daily, Crane, Lexi L, SPRING CRATER, 20 mg at 09/05/25 0827 HYDROmorphone (Dilaudid) injection 0.5 mg, 0.5 mg, Intravenous, q4h PRN, Rosa Maria Lexi L, SPRING CRATER, 0.5 mg at 05/04/25 1405 HYDROmorphone (Dilaudid) tablet 3 mg, 3 mg, Oral, q4h PRN, Rosa Maria Lexi L, SPRING CRATER, 3 mg at 05/03/25 1615 Tiotropium Winthrop Monohydrate (Spiriva Respimat) 2.5 MCG/ACT inhaler 2 puff, 2 puff, Inhalation, Daily, 2 puff at 05/04/25 0828 AND mometasone-formoterol (Dulera 100) 100-5 MCG/ACT inhaler 2 puff, 2 puff, Inhalation, BID, Bhavya Craneoya L, SPRING CRATER, 2 puff at 05/04/25 0828 nicotine (Nicoderm CQ) 21 MG/24HR patch 1 patch, 1 patch, Transdermal, Daily, Lexi Crane, SPRING CRATER,1 patch at 05/04/25 0827 piperacillin-tazobactam (Zosyn) 4.5 g in sodium chloride 0.9% 100 mL IVPB (vial adapter required), 4.5 g, Intravenous, q6h, Saadia Cranea L, SPRING CRATER, Last Rate: 36.7 mL/hr at 05/04/25 1405, 4.5 g at 05/04/25 1405 [COMPLETED] Insert peripheral IV, , , Once AND [COMPLETED] Saline lock IV, , , Once AND sodium chloride 0.9 % flush 10 mL, 10 mL, Intravenous, q12h, 10 mL at 05/04/25 0121 AND sodium chloride 0.9 % flush 10 mL, 10 mL, Intravenous, PRN, Bhavya Craneoya L, SPRING CRATER Cosigned by Tremaine Waddell MD at 05/07/2025 [...] the emergency department as a transfer from [facility] with RUQ pain and concern for cholecystitis [...] #Cancer related pain (POA0 -Receiving chemotherapy at [facility]. Last dose of chemo was on 03/29. [...] overall morbidity & mortality. -Monitor albumin -Consult Broadcast Maintenance Engineer -Continue megace #Nicotine dependence (POA) -Smokes about [...] Note Rl Steward 65 y.o. male CSN: [id number] Admission: 05/01/2025 4:53 PM Primary Problem: Abdominal [...] Inhalation, 4x daily PRN, Crane, Lexi L, SPRING CRATER calcium carbonate (Tums) chewable tablet 500 mg, 500 mg, Oral, q4h PRN, Crane, Lexi L, SPRING CRATER cyclobenzaprine (Flexeril) tablet 5 mg, 5 mg, Oral, BID PRN, Crane, Lexi L, SPRING CRATER, 5 mg at 736 escitalopram (Lexapro) tablet 20 mg, 20 mg, Oral, Daily, Crane, Lexi L, SPRING CRATER, 20 mg at 05/03/25 08 furosemide (Lasix) tablet 20 mg, 20 mg, Oral, Daily, Crane, Lexi L, SPRING CRATER, 20 mg at 05/03/25 0802 HYDROmorphone (Dilaudid) injection 0.5 mg, 0.5 mg, Intravenous, q4h PRN, Crane, Lexi L, SPRING CRATER, 0.5 mg at 05/03/25 1406 HYDROmorphone (Dilaudid) tablet 3 mg, 3 mg, Oral, q4h PRN, Crane, Lexi L, SPRING CRATER, 3 mg at 05/02/25 0736 Tiotropium Winthrop Monohydrate (Spiriva Respimat) 2.5 MCG/ACT inhaler 2 puff, 2 puff, Inhalation, Daily, 2 puff at 05/03/25 0803 AND mometasone-formoterol (Dulera 100) 100-5 MCG/ACT inhaler 2 puff, 2 puff, Inhalation, BID, Crane, Lexi L, SPRING CRATER, 2 puff at 05/03/25 0804 nicotine (Nicoderm CQ) 21 MG/24HR patch 1 patch, 1 patch, Transdermal, Daily, Crane, Lexi L, SPRING CRATER,1 patch at 05/03/25 0802 piperacillin-tazobactam (Zosyn) 4.5 g in sodium chloride 0.9% 100 mL IVPB (vial adapter required), 4.5 g, Intravenous, q6h, Crane, Lexi L, SPRING CRATER, Last Rate: 36.7 mL/hr at 05/03/25 1230, 4.5 g at 05/03/25 1230 [COMPLETED] Insert peripheral IV, , , Once AND [COMPLETED] Saline lock IV, , , Once AND sodium chloride 0.9 % flush 10 mL, 10 mL, Intravenous, q12h, 10 mL at 05/02/25 2325 AND sodium chloride 0.9 % flush 10 mL, 10 mL, Intravenous, PRN, Crane, Lexi L, SPRING CRATER Cosigned by Tremaine Waddell MD at 05/07/2025 [...] the emergency department as a transfer from [facility] with RUQ pain and concern for cholecystitis [...] #Cancer related pain (POA0 -Receiving chemotherapy at [facility]. Last dose of chemo was on 03/29. [...] overall morbidity & mortality. -Monitor albumin -Consult Broadcast Maintenance Engineer -Continue megace #Nicotine dependence (POA) -Smokes about [...] tobacco dependence, and hepatocellular carcinoma presenting to [facility] on 05/01/2025 with right upper quadrant abdominal [...] Inhalation 4x daily PRN Crane, Lexi L, SPRING CRATER calcium carbonate (Tums) chewable tablet 500 mg 500 mg Oral q4h PRN Crane, Lexi L, SPRING CRATER cyclobenzaprine (Flexeril) tablet 5 mg 5 mg Oral BID PRN Rosa Maria Lexi L, SPRING CRATER 5 mg at 05/02/25 0736 escitalopram (Lexapro) tablet 20 mg 20 mg Oral Daily Saadia Cranea L, SPRING CRATER 20 mg at 05/03/25 0802 furosemide (Lasix) tablet 20 mg 20 mg Oral Daily Crane, Lexi L, SPRING CRATER 20 mg at 05/03/25 0802 HYDROmorphone (Dilaudid) injection 0.5 mg 0.5 mg Intravenous q4h PRN Saadia Cranea L, SPRING CRATER 0.5 mg at05/03/25 1406 HYDROmorphone (Dilaudid) tablet 3 mg 3 mg Oral q4h PRN Saadia Cranea L, SPRING CRATER 3 mg at 05/03/25 1615 Tiotropium Winthrop Monohydrate (Spiriva Respimat) 2.5 MCG/ACT inhaler 2 puff 2 puff Inhalation Daily Saadia Cranea Vega, SPRING CRATER 2 puff at 05/03/25 0803 And mometasone-formoterol (Dulera 100) 100-5 MCG/ACT inhaler 2 puff 2 puff Inhalation BID Saadia Cranea Vega, SPRING CRATER 2 puff at 05/03/25 0804 nicotine (Nicoderm CQ) 21 MG/24HR patch 1 patch 1 patch Transdermal Daily Saadia Cranea Vega, SPRING CRATER 1 patch at 05/03/25 0802 piperacillin-tazobactam (Zosyn) 4.5 g in sodium chloride 0.9% 100 mL IVPB (vial adapter required) 4.5 g Intravenous q6h Rosa Maria Lexi Vega, SPRING CRATER 36.7 mL/hr at 05/03/25 1230 4.5 g at 09/04/25 1230 sodium chloride 0.9 % flush 10 mL 10 mL Intravenous q12h Lexi Crane, SPRING CRATER 10 mL at 05/02/25 2325 And sodium chloride 0.9 % flush 10 mL 10 mL Intravenous PRN Lexi Crane SPRING CRATER Cosigned by Kasey Blackwell MD at 05/03/2025 [...] hepatocellular carcinoma. We have been consultedas the it auditor have concerns that his pain is related [...] patient and his Kasey Blackwell MD, FACS community dietitian Trauma Acute Care Surgery * Significant Event [...] Review Outcome: Ongoing, Progressing Flowsheets (Taken 05/03/2025 0452) Progress: no change Plan of Care Reviewed [...] the emergency department as a transfer from [facility] with RUQ pain and concern for cholecystitis [...] #Cancer related pain (POA0 -Receiving chemotherapy at [facility]. Last dose of chemo was on 03/29. [...] overall morbidity & mortality. -Monitor albumin -Consult Broadcast Maintenance Engineer -Continue megace #Nicotine dependence (POA) -Smokes about [...] Note Rl Steward 65 y.o. male CSN: [id number] Admission: 05/01/2025 4:53 PM Primary Problem: Abdominal pain Formulation Chemist reviewed chart and spoke with patient and spouse at bedside to complete this Initial Case Management Assessment. PCP: Cr Resendez MD in [place], [place] Emergency Contact: Extended Emergency Contact Information Primary Emergency Contact: [facility] Relation: Spouse Preferred language: Malay Collet Making Machine Operator needed? No Insurance: Primary Visit Coverage Payer Plan Sponsor Code Group Number Group Name MEDICARE MEDICARE A & B Primary Visit Coverage Subscriber Subscriber ID Subscriber Name Subscriber SSN Subscriber Address [id number] [id number] [address] [place] [address] Secondary Visit Coverage Payer Plan Sponsor Code Group Number Group Name [place] [facility] Secondary Visit Coverage Subscriber Subscriber ID Subscriber Name Subscriber SSN Subscriber Address [id number] [address] [id number] [address] [place] [address] Patient information: Primary Caregiver: Self Support System: Immediate family Daily Living Activities: Functional Status: Independent Living Arrangements: Spouse/Significant other Type of Residence: Private residence, Multi Level (stays on main floor; 2 steps for entry) [address] [facility] [address] Current DME: Equipment Currently Used at Home: none Income Information: Income/Expense Information: Income meets expenses Anticipated Discharge Date: TBD Patient's Discharge Goal: Return home Assistance Available at Discharge: Spouse & son Discharge Transport: Spouse Follow Up Transport: Spouse/Son Home Health / Home Infusion / Outpatient Dialysis Services: None Living Will/Advance Directive/Power of Technical Delivery Manager /Guardian: None Additional Comments: Pt confirmed address, EC, and insurance. Pt sees Cr Resendez in [place], [place] for primary care. Pt lives with [...] possible cholecystitis and was subsequently transferred to [facility] for further evaluation. Seen by both surgical [...] concerns. Keaton Ponce MD PGY-5 Gastroenterology Fellow [facility] [1] Past Medical History: Diagnosis Date COPD [...] Daily furosemide, 20 mg, Oral, Daily Tiotropium Winthrop Monohydrate, 2 puff, Inhalation, Daily And mometasone-formoterol, [...] the emergency department as a transfer from [facility] with RQU pain. Mr. Steward states that [...] Of note he is receiving chemotherapy at [facility]. He has only received 1 dose of [...] Food Insecurity: Patient Declined (12/07/2024) Received from [facility] Hunger Vital Sign Within the past 12 months, you worried that your food would run out before you got the money to buymore.: Patient declined Within the past 12 months, the food you bought just didn't last and you didn't have money to get more.: Patient declined Transportation Needs: Patient Declined (12/07/2024) Received from [facility] PRAPARE - Transportation Lack of Transportation (Medical): Patient declined Lack of Transportation (Non-Medical): Patient declined Physical Activity: Not on file Stress: Not on file Social Connections: Not on file Intimate Partner Violence: Not on file Housing Stability: Patient Declined (12/07/2024) Received from [facility] Housing Stability Vital Sign In the last 12 months, was there a time when you were not able to pay the mortgage or rent on time?: Patient declined In the past 12 months, how many times have you moved where you were living?: 0 At any time in the past 12 months, were you homeless or living in a long-term (including now)?: Patient declined ROS: Review of [...] Abnormal Ventricular Rate 70 Atrial Rate 70 WV Interval 138 QRSD Interval 86 QT Interval 414 QTC Interval 447 P Shobonier 50 R Shobonier -53 T Wave Shobonier 43 Diagnosis Normal sinus rhythm with sinus [...] the emergency department as a transfer from [facility] with RQU pain and concern for cholecystitis [...] #Cancer related pain (POA0 -Receiving chemotherapy at [facility]. Last dose of chemo was on 03/29. [...] overall morbidity & mortality. -Monitor albumin -Consult Broadcast Maintenance Engineer -Continue megace #Nicotine dependence (POA) -Smokes about [...] APRN Department of Internal Medicine Division of [facility] Medicine Secure chat preferred Pager: [phone] [1] Past Medical History: Diagnosis Date COPD [...] None Disposition Admit Admitting/Attending Physician: BRITNEY RAI [[id number]] Provider Care Team: JHOANA 14 [[id number]] Are [...] 05/01/2025 4:52 PM EDT Patient presents from [facility] where he was seen for RUQ [...] - 99 mg/dL 05/04/2025 5:[address] [facility] BUN, Plasma 11 8 - 23 mg/dL 05/04/2025 5:[address] [facility] Creatinine, Plasma 0.81 0.70 - 1.20 mg/dL 05/04/2025 5:[address] [facility] BUN/Creatinine Ratio 14 05/04/2025 5:[address] [facility] Sodium, Plasma 138 136 - 145 mmol/L 05/04/2025 5:[address] [facility] Potassium, Plasma 3.3(L) 3.6 - 4.9 mmol/L 05/04/2025 5:[address] [facility] Chloride, Plasma 106 97 - 107 mmol/L 05/04/2025 5:[address] [facility] CO2, Plasma 20(L) 22 - 29 mmol/L 05/04/2025 5:[address] [facility] Anion Gap 12 6 - 16 mmol/L 05/04/2025 5:[address] [facility] Total Calcium, Plasma 8.5(L) 8.9 - 10.2 mg/dL 05/04/2025 5:[address] [facility] Total Protein 6.4 6.3 - 7.9 g/dL 05/04/2025 5:[address] [facility] Albumin, Plasma 2.6(L) 3.5 - 5.2 g/dL 05/04/2025 5:[address] [facility] AST, Plasma 140(H) 10 - 50 U/L 05/04/2025 5:[address] [facility] ALT, Plasma 21 10 - 50 U/L 05/04/2025 5:[address] [facility] Alkaline Phosphatase, Plasma 186(H) 40 - 115 U/L 05/04/2025 5:[address] [facility] Total Bilirubin, Plasma 2.1(H) 0.2 - 1.1 mg/dL 05/04/2025 5:[address] [facility] eGFRcr 96.6 mL/min/1.7 3m*2 05/04/2025 5:[address] [facility] Comment:Reported eGFRcr in m L/min/1.73m2 is based the CKD-EPI 2020 equation that does not use a race coefficient. Blood Venous blood specimen / Unknown Venipuncture / Unknown 05/04/2025 4:33 AM EDT 05/04/2025 4:44 AM EDT us Ang Will MD LAB BLOOD ORDERABLES Courtney vega Result [facility] [address] [place] [address] * (ABNORMAL) CBC W/O Differential (05/04/2025 4:33 AM EDT) WBC Count 4.71 3.70 - 10.30 10*3/uL LAB HEMATOLOGY METHOD 05/04/2025 5:[address] [facility] RBC Count 4.16(L) 4.60 - 6.10 10*6/uL LAB HEMATOLOGY METHOD 05/04/2025 5:[address] [facility] HGB 13.1(L) 13.7 - 17.5 g/dL LAB HEMATOLOGY METHOD 05/04/2025 5:[address] [facility] HCT 38.4(L) 40.0 - 51.0 % LAB HEMATOLOGY METHOD 05/04/2025 5:[address] [facility] Platelet Count 117(L) 155 - 369 10*3/uL LAB HEMATOLOGY METHOD 05/04/2025 5:[address] [facility] MCV 92 79 - 98 fL LAB HEMATOLOGY METHOD 05/04/2025 5:[address] [facility] MCH 31.5 26.0 - 32.0 pg LAB HEMATOLOGY METHOD 05/04/2025 5:[address] [facility] MCHC 34.1 30.7 - 35.5 g/dL LAB HEMATOLOGY METHOD 05/04/2025 5:[address] [facility] RDW 15.5(H) 11.5 - 14.5 % LAB HEMATOLOGY METHOD 05/04/2025 5:[address] [facility] MPV 11.5 8.8 - 12.5 fL LAB HEMATOLOGY METHOD 05/04/2025 5:[address] [facility] nRBC 0.0 <=0.0 per 100 WBCs LAB HEMATOLOGY METHOD 05/04/2025 5:[address] [facility] Blood Venous blood specimen / Unknown Venipuncture / Unknown 05/04/2025 4:33 AM EDT 05/04/2025 4:45 AM EDT Ang Will MD LAB BLOOD ORDERABLES Courtney l Result Performing Organization Address City/[facility]/ZIP Co de Phone Number [facility] [address] [place] [address] * (ABNORMAL) Creatine Kinase, Total, Plasma (05/04/2025 4:33 AM EDT) Creatine Kinase, Plasma 33(L) 49 - 320 U/L 05/04/2025 5:27 AM EDT [facility] Blood Venous blood specimen / Unknown Venipuncture / Unknown 05/04/2025 4:33 AM EDT 05/04/2025 4:44 AM EDT Ang Will MD LAB BLOOD ORDERABLES Courtney l Result Performing Organization Address [facility] [place] [address] * Phosphatidylethanol (PEth), Whole Blood, Quantitative (05/04/2025 4:33 AM EDT) Pathologist [facility] PEth 16:0/18:2 (PLPEth) <10 ng/mL 05/06/2025 12:20 PM EDT [facility] ([employer]) PEth 16:0/18:1 (POPEth) <10 ng/mL 05/06/2025 12:20 PM EDT [facility] ([employer]) EER Peth See Note 05/06/2025 12:20 PM EDT [facility] ([employer]) PEth Interpretation See Comment 05/06/2025 12:20 PM EDT [facility] ([employer]) Blood Venous blood specimen / Unknown Venipuncture / Unknown 05/04/2025 4:33 AM EDT 05/04/2025 4:42 AM EDT Narrative [facility] ([employer]) - 05/06/2025 12:20 PM EDT PEth 16:0/18:1 (POPEth) Less than 10 ng/mL............Not detected Less than 20 ng/mL............Abstinence or light alcohol consumption 20 - 200 ng/mL................Moderate alcohol consumption Greater than 200 ng/mL........Heavy alcohol consumption or chronic alcohol use (Reference: Hannah Correa and Trice Azevedo 2018 J. Forensic Sci) Reference ranges are not well established. Authorized individuals can access the [employer] Enhanced Report with an [employer] Connect account using the following link. Your local lab can assist you in obtaining the patient report if you don't have a Connect account. [email or web address] Phosphatidylethanol (PEth) is a group of phospholipids [...] developed and its performance characteristics determined by [facility]. It has not been cleared or approved by the U.S. Food and Drug Administration. This test was performed in a CLIA-certified laboratory and is intended for clinical purposes. Performed By: [facility] [address] [place] [address] Plug Making Operator: David Marx MD, PhD CLIA Number: [id number] us Ang Will MD LAB REF LAB BLOOD AND FLU ID ORD Final Result [facility]AL[facility]O) [place] [address] * (ABNORMAL) Comprehensive metabolic panel (05/03/2025 4:00 AM EDT) Glucose, Plasma 96 74 - 99 mg/dL 05/03/2025 4:[address] [facility] BUN, Plasma 13 8 - 23 mg/dL 05/03/2025 4:[address] [facility] Creatinine, Plasma 0.86 0.70 - 1.20 mg/dL 05/03/2025 4:[address] [facility] BUN/Creatinine Ratio 15 05/03/2025 4:[address] [facility] Sodium, Plasma 137 136 - 145 mmol/L 05/03/2025 4:[address] [facility] Potassium, Plasma 3.6 3.6 - 4.9 mmol/L 05/03/2025 4:[address] [facility] Chloride, Plasma 103 97 - 107 mmol/L 05/03/2025 4:[address] [facility] CO2, Plasma 22 22 - 29 mmol/L 05/03/2025 4:[address] [facility] Anion Gap 12 6 - 16 mmol/L 05/03/2025 4:[address] [facility] Total Calcium, Plasma 9.0 8.9 - 10.2 mg/dL 05/03/2025 4:[address] [facility] Total Protein 7.1 6.3 - 7.9 g/dL 05/03/2025 4:[address] [facility] Albumin, Plasma 3.0(L) 3.5 - 5.2 g/dL 05/03/2025 4:[address] [facility] AST, Plasma 205(H) 10 - 50 U/L 05/03/2025 4:[address] [facility] Comment:Hemolyzed, result ma y be falsely increased. ALT, Plasma 23 10 - 50 U/L 05/03/2025 4:[address] [facility] Alkaline Phosphatase, Plasma 220(H) 40 - 115 U/L 05/03/2025 4:[address] [facility] Total Bilirubin, Plasma 1.7(H) 0.2 - 1.1 mg/dL 05/03/2025 4:[address] [facility] eGFRcr 94.9 mL/min/1.7 3m*2 05/03/2025 4:[address] [facility] Comment:Reported eGFRcr in m L/min/1.73m2 is based the CKD-EPI 2020 equation that does not use a race coefficient. Blood Venous blood specimen / Unknown Venipuncture / Unknown 05/03/2025 4:00 AM EDT 05/03/2025 4:21 AM EDT Ang Will MD LAB BLOOD ORDERABLES Courtney ferrari Result [facility] [address] [place] [address] * (ABNORMAL) CBC W/O Differential (05/03/2025 4:00 AM EDT) WBC Count 5.46 3.70 - 10.30 10*3/uL LAB HEMATOLOGY METHOD 05/03/2025 4:[address] [facility] RBC Count 4.39(L) 4.60 - 6.10 10*6/uL LAB HEMATOLOGY METHOD 05/03/2025 4:[address] [facility] HGB 14.0 13.7 - 17.5 g/dL LAB HEMATOLOGY METHOD 05/03/2025 4:[address] [facility] HCT 41.1 40.0 - 51.0 % LAB HEMATOLOGY METHOD 05/03/2025 4:[address] [facility] Platelet Count 122(L) 155 - 369 10*3/uL LAB HEMATOLOGY METHOD 05/03/2025 4:[address] [facility] MCV 94 79 - 98 fL LAB HEMATOLOGY METHOD 05/03/2025 4:[address] [facility] MCH 31.9 26.0 - 32.0 pg LAB HEMATOLOGY METHOD 05/03/2025 4:[address] [facility] MCHC 34.1 30.7 - 35.5 g/dL LAB HEMATOLOGY METHOD 05/03/2025 4:[address] [facility] RDW 15.3(H) 11.5 - 14.5 % LAB HEMATOLOGY METHOD 05/03/2025 4:[address] [facility] MPV 12.5 8.8 - 12.5 fL LAB HEMATOLOGY METHOD 05/03/2025 4:[address] [facility] nRBC 0.0 <=0.0 per 100 WBCs LAB HEMATOLOGY METHOD 05/03/2025 4:[address] [facility] Blood Venous blood specimen / Unknown Venipuncture / Unknown 05/03/2025 4:00 AM EDT 05/03/2025 4:24 AM EDT us Ang Will MD LAB BLOOD ORDERABLES Courtney l Result [facility] [address] [place] [address] * (ABNORMAL) Bilirubin, direct (05/02/2025 1:42 PM EDT) Direct Bilirubin, Plasma 0.7(H) <=0.3 mg/dL 05/02/2025 2:[address] [facility] Blood Venous blood specimen / Unknown Venipuncture / Unknown 05/02/2025 1:42 PM EDT 05/02/2025 2:10 PM EDT us Ang Will MD LAB BLOOD ORDERABLES Courtney l Result [facility] [address] [place] [address] * (ABNORMAL) Bilirubin, direct (05/02/2025 2:07 AM EDT) Direct Bilirubin, Plasma 1.1(H) <=0.3 mg/dL 05/02/2025 3:[address] [facility] Blood Venous blood specimen / Unknown Venipuncture / Unknown 05/02/2025 2:07 AM EDT 05/02/2025 2:20 AM EDT Ang Will MD LAB BLOOD ORDERABLES Courtney l Result Performing Organization Address [facility]/ZIP Co de Phone Number [facility] [address] [place] [address] * (ABNORMAL) Lactate, venous (05/02/2025 2:07 AM EDT) Lactate, Venous, Whole Blood 3.0(H) 0.5 - 2.2 mmol/L LAB HEMATOLOGY METHOD 05/02/2025 2:[address] [facility] Blood Venous blood specimen / Unknown Venipuncture / Unknown 05/02/2025 2:07 AM EDT 05/02/2025 2:19 AM EDT us Lexi Crane APRN LAB BLOOD ORDERABLES Final Re sult Performing Organization Address [facility]/ZIP Co de Phone Number [facility] [address] [place] [address] * (ABNORMAL) Prothrombin Time/INR (05/02/2025 2:07 AM EDT) Prothrombin Time 14.5(H) 12.0 - 14.3 sec LAB COAGULATION METHOD 05/02/2025 2:[address] [facility] INR 1.1 0.9 - 1.1 LAB COAGULATION METHOD 05/02/2025 2:[address] [facility] Blood Venous blood specimen / Unknown Venipuncture / Unknown 05/02/2025 2:07 AM EDT 05/02/2025 2:[address] [facility] - 05/02/2025 2:44 AM EDT [...] of recurrent [place] INR 2.5 to 3.5 us Lexi Crane [place] LAB BLOOD ORDERABLES Final Re sult [facility] [address] [place] [address] * (ABNORMAL) Comprehensive metabolic panel (05/02/2025 2:07 AM EDT) Glucose, Plasma 106(H) 74 - 99 mg/dL 05/02/2025 2:[address] [facility] BUN, Plasma 16 8 - 23 mg/dL 05/02/2025 2:[address] [facility] Creatinine, Plasma 0.84 0.70 - 1.20 mg/dL 05/02/2025 2:[address] [facility] BUN/Creatinine Ratio 19 05/02/2025 2:[address] [facility] Sodium, Plasma 136 136 - 145 mmol/L 05/02/2025 2:[address] [facility] Potassium, Plasma 3.8 3.6 - 4.9 mmol/L 05/02/2025 2:[address] [facility] Chloride, Plasma 101 97 - 107 mmol/L 05/02/2025 2:[address] [facility] CO2, Plasma 25 22 - 29 mmol/L 05/02/2025 2:[address] [facility] Anion Gap 10 6 - 16 mmol/L 05/02/2025 2:[address] [facility] Total Calcium, Plasma 9.1 8.9 - 10.2 mg/dL 05/02/2025 2:[address] [facility] Total Protein 6.5 6.3 - 7.9 g/dL 05/02/2025 2:[address] [facility] Albumin, Plasma 2.8(L) 3.5 - 5.2 g/dL 05/02/2025 2:[address] [facility] AST, Plasma 241(H) 10 - 50 U/L 05/02/2025 2:[address] [facility] ALT, Plasma 23 10 - 50 U/L 05/02/2025 2:[address] [facility] Alkaline Phosphatase, Plasma 200(H) 40 - 115 U/L 05/02/2025 2:[address] [facility] Total Bilirubin, Plasma 2.6(H) 0.2 - 1.1 mg/dL 05/02/2025 2:[address] [facility] eGFRcr 95.6 mL/min/1.7 3m*2 05/02/2025 2:[address] [facility] Comment:Reported eGFRcr in m L/min/1.73m2 is based the CKD-EPI 2020 equation that does not use a race coefficient. Blood Venous blood specimen / Unknown Venipuncture / Unknown 05/02/2025 2:07 AM EDT 05/02/2025 2:20 AM EDT us Lexi Crane APRN LAB BLOOD ORDERABLES Final Re sult [facility] [address] [place] [address] * (ABNORMAL) CBC and differential (05/02/2025 2:07 AM EDT) WBC Count 6.14 3.70 - 10.30 10*3/uL LAB HEMATOLOGY METHOD 05/02/2025 2:[address] [facility] RBC Count 4.15(L) 4.60 - 6.10 10*6/uL LAB HEMATOLOGY METHOD 05/02/2025 2:[address] [facility] HGB 13.3(L) 13.7 - 17.5 g/dL LAB HEMATOLOGY METHOD 05/02/2025 2:[address] [facility] HCT 39.3(L) 40.0 - 51.0 % LAB HEMATOLOGY METHOD 05/02/2025 2:[address] [facility] Platelet Count 126(L) 155 - 369 10*3/uL LAB HEMATOLOGY METHOD 05/02/2025 2:[address] [facility] MCV 95 79 - 98 fL LAB HEMATOLOGY METHOD 05/02/2025 2:[address] [facility] MCH 32.0 26.0 - 32.0 pg LAB HEMATOLOGY METHOD 05/02/2025 2:[address] [facility] MCHC 33.8 30.7 - 35.5 g/dL LAB HEMATOLOGY METHOD 05/02/2025 2:[address] [facility] RDW 15.1(H) 11.5 - 14.5 % LAB HEMATOLOGY METHOD 05/02/2025 2:[address] [facility] MPV 11.9 8.8 - 12.5 fL LAB HEMATOLOGY METHOD 05/02/2025 2:[address] [facility] nRBC 0.0 <=0.0 per 100 WBCs LAB HEMATOLOGY METHOD 05/02/2025 2:[address] [facility] Differential Type Automated LAB HEMATOLOGY METHOD 05/02/2025 2:[address] [facility] Neutrophils % 65 % LAB HEMATOLOGY METHOD 05/02/2025 2:[address] [facility] Lymphocytes % 20 % LAB HEMATOLOGY METHOD 05/02/2025 2:[address] [facility] Monocytes % 13 % LAB HEMATOLOGY METHOD 05/02/2025 2:[address] [facility] Eosinophils % 1 % LAB HEMATOLOGY METHOD 05/02/2025 2:[address] [facility] Basophils % 0 % LAB HEMATOLOGY METHOD 05/02/2025 2:[address] [facility] Immature Granulocytes % 1 % LAB HEMATOLOGY METHOD 05/02/2025 2:[address] [facility] Neutrophils Absolute 4.00 1.60 - 6.10 10*3/uL LAB HEMATOLOGY METHOD 05/02/2025 2:[address] [facility] Lymphocytes Absolute 1.22 1.20 - 3.90 10*3/uL LAB HEMATOLOGY METHOD 05/02/2025 2:[address] [facility] Monocytes Absolute 0.79 0.30 - 0.90 10*3/uL LAB HEMATOLOGY METHOD 05/02/2025 2:[address] [facility] Eosinophils Absolute 0.07 0.00 - 0.50 10*3/uL LAB HEMATOLOGY METHOD 05/02/2025 2:[address] [facility] Basophils Absolute 0.02 0.00 - 0.10 10*3/uL LAB HEMATOLOGY METHOD 05/02/2025 2:[address] [facility] Immature Granulocytes Absolute 0.04 0.00 - 0.06 10*3/uL LAB HEMATOLOGY METHOD 05/02/2025 2:[address] [facility] Blood Venous blood specimen / Unknown Venipuncture / Unknown 05/02/2025 2:07 AM EDT 05/02/2025 2:[address] [facility] - 05/02/2025 2:31 AM EDT Therapeutic decision making should be based on absolute values, rather than percentages. us Lexi Crane APRN LAB BLOOD ORDERABLES Final Re sult [facility] [address] [place] [address] * US Abdomen RUQ (05/01/2025 7:43 PM [...] on 05/01/2025 8:43 PM Willy Saleh MD [facility] US PROCEDURES Final Result * Type and [...] TEST ORDERABLES Final Result BLOOD BANK [address] [place] [address], [place] * (ABNORMAL) Lactic acid, venous (05/01/2025 5:54 PM EDT) Lactate, Venous, Whole Blood 2.5(H) 0.5 - 2.2 mmol/L LAB HEMATOLOGY METHOD 05/01/2025 6:[address] [facility] Blood Venous blood specimen / Unknown Venipuncture / Unknown 05/01/2025 5:54 PM EDT 05/01/2025 6:08 PM EDT Willy Saleh MD LAB BLOOD ORDERABLES Final Resu lt [facility] [address] [place] [address] * (ABNORMAL) Lipase (05/01/2025 5:54 PM EDT) Lipase, Plasma 11(L) 19 - 63 U/L 05/01/2025 6:[address] [facility] Blood Venous blood specimen / Unknown Venipuncture / Unknown 05/01/2025 5:54 PM EDT 05/01/2025 5:58 PM EDT Willy Saleh MD LAB BLOOD ORDERABLES Final Resu lt [facility] [address] [place] [address] * Magnesium (05/01/2025 5:54 PM EDT) Magnesium, Plasma 1.9 1.9 - 2.4 mg/dL 05/01/2025 6:[address] [facility] Blood Venous blood specimen / Unknown Venipuncture / Unknown 05/01/2025 5:54 PM EDT 05/01/2025 5:58 PM EDT Willy Saleh MD LAB BLOOD ORDERABLES Final Resu lt [facility] [address] [place] [address] * (ABNORMAL) CMP (05/01/2025 5:54 PM EDT) Glucose, Plasma 93 74 - 99 mg/dL 05/01/2025 6:[address] [facility] BUN, Plasma 16 8 - 23 mg/dL 05/01/2025 6:[address] [facility] Creatinine, Plasma 0.82 0.70 - 1.20 mg/dL 05/01/2025 6:[address] [facility] BUN/Creatinine Ratio 20 05/01/2025 6:[address] [facility] Sodium, Plasma 137 136 - 145 mmol/L 05/01/2025 6:[address] [facility] Potassium, Plasma 4.0 3.6 - 4.9 mmol/L 05/01/2025 6:[address] [facility] Chloride, Plasma 101 97 - 107 mmol/L 05/01/2025 6:[address] [facility] CO2, Plasma 22 22 - 29 mmol/L 05/01/2025 6:[address] [facility] Anion Gap 14 6 - 16 mmol/L 05/01/2025 6:[address] [facility] Total Calcium, Plasma 8.7(L) 8.9 - 10.2 mg/dL 05/01/2025 6:[address] [facility] Total Protein 6.6 6.3 - 7.9 g/dL 05/01/2025 6:[address] [facility] Albumin, Plasma 2.7(L) 3.5 - 5.2 g/dL 05/01/2025 6:[address] [facility] AST, Plasma 248(H) 10 - 50 U/L 05/01/2025 6:[address] [facility] ALT, Plasma 22 10 - 50 U/L 05/01/2025 6:[address] [facility] Alkaline Phosphatase, Plasma 208(H) 40 - 115 U/L 05/01/2025 6:[address] [facility] Total Bilirubin, Plasma 2.2(H) 0.2 - 1.1 mg/dL 05/01/2025 6:[address] [facility] eGFRcr 96.3 mL/min/1.7 3m*2 05/01/2025 6:[address] [facility] Comment:Reported eGFRcr in m L/min/1.73m2 is based the CKD-EPI 2020 equation that does not use a race coefficient. Blood Venous blood specimen / Unknown Venipuncture / Unknown 05/01/2025 5:54 PM EDT 05/01/2025 5:58 PM EDT Willy Saleh MD LAB BLOOD ORDERABLES Final Resu lt Performing Organization Address [facility] Co de Phone Number [facility] [address] [place] [address] * (ABNORMAL) PT-INR (05/01/2025 5:54 PM EDT) Prothrombin Time 14.4(H) 12.0 - 14.3 sec 05/01/2025 6:[address] [facility] INR 1.1 0.9 - 1.1 05/01/2025 6:13 PM EDT [facility] Blood Venous blood specimen / Unknown Venipuncture / Unknown 05/01/2025 5:54 PM EDT 05/01/2025 5:[address] [facility] - 05/01/2025 6:13 PM EDT [...] of recurrent [place] INR 2.5 to 3.5 Willy Saleh MD LAB BLOOD ORDERABLES Final Resu lt Performing Organization Address City/[facility]/ZIP Co de Phone Number [facility] [address] [place] [address] * (ABNORMAL) CBC w/diff (05/01/2025 5:54 PM EDT) WBC Count 6.23 3.70 - 10.30 10*3/uL LAB HEMATOLOGY METHOD 05/01/2025 6:[address] [facility] RBC Count 4.08(L) 4.60 - 6.10 10*6/uL LAB HEMATOLOGY METHOD 05/01/2025 6:[address] [facility] HGB 13.2(L) 13.7 - 17.5 g/dL LAB HEMATOLOGY METHOD 05/01/2025 6:[address] [facility] HCT 37.8(L) 40.0 - 51.0 % LAB HEMATOLOGY METHOD 05/01/2025 6:[address] [facility] Platelet Count 118(L) 155 - 369 10*3/uL LAB HEMATOLOGY METHOD 05/01/2025 6:[address] [facility] MCV 93 79 - 98 fL LAB HEMATOLOGY METHOD 05/01/2025 6:[address] [facility] MCH 32.4(H) 26.0 - 32.0 pg LAB HEMATOLOGY METHOD 05/01/2025 6:[address] [facility] MCHC 34.9 30.7 - 35.5 g/dL LAB HEMATOLOGY METHOD 05/01/2025 6:[address] [facility] RDW 15.0(H) 11.5 - 14.5 % LAB HEMATOLOGY METHOD 05/01/2025 6:[address] [facility] MPV 11.1 8.8 - 12.5 fL LAB HEMATOLOGY METHOD 05/01/2025 6:[address] [facility] nRBC 0.0 <=0.0 per 100 WBCs LAB HEMATOLOGY METHOD 05/01/2025 6:[address] [facility] Differential Type Automated LAB HEMATOLOGY METHOD 05/01/2025 6:[address] [facility] Neutrophils % 59 % LAB HEMATOLOGY METHOD 05/01/2025 6:[address] [facility] Lymphocytes % 21 % LAB HEMATOLOGY METHOD 05/01/2025 6:[address] [facility] Monocytes % 16 % LAB HEMATOLOGY METHOD 05/01/2025 6:[address] [facility] Eosinophils % 2 % LAB HEMATOLOGY METHOD 05/01/2025 6:[address] [facility] Basophils % 1 % LAB HEMATOLOGY METHOD 05/01/2025 6:[address] [facility] Immature Granulocytes % 1 % LAB HEMATOLOGY METHOD 05/01/2025 6:[address] [facility] Neutrophils Absolute 3.70 1.60 - 6.10 10*3/uL LAB HEMATOLOGY METHOD 05/01/2025 6:[address] [facility] Lymphocytes Absolute 1.33 1.20 - 3.90 10*3/uL LAB HEMATOLOGY METHOD 05/01/2025 6:[address] [facility] Monocytes Absolute 0.98(H) 0.30 - 0.90 10*3/uL LAB HEMATOLOGY METHOD 05/01/2025 6:[address] [facility] Eosinophils Absolute 0.13 0.00 - 0.50 10*3/uL LAB HEMATOLOGY METHOD 05/01/2025 6:[address] [facility] Basophils Absolute 0.04 0.00 - 0.10 10*3/uL LAB HEMATOLOGY METHOD 05/01/2025 6:[address] [facility] Immature Granulocytes Absolute 0.05 0.00 - 0.06 10*3/uL LAB HEMATOLOGY METHOD 05/01/2025 6:[address] [facility] Blood Venous blood specimen / Unknown Venipuncture / Unknown 05/01/2025 5:54 PM EDT 05/01/2025 5:[address] [facility] - 05/01/2025 6:05 PM EDT Therapeutic decision making should be based on absolute values, rather than percentages. us Willy Saleh MD LAB BLOOD ORDERABLES Final Resu lt [facility] [address] [place] [address] * EKG now - STAT (adult) (05/01/2025 5:43 PM EDT) EKG DIAGNOSIS CLASS Abnormal MUSE ECG Ventricular Rate 70 BPM MUSE ECG Atrial Rate 70 BPM MUSE ECG WV Interval 138 ms MUSE ECG QRSD Interval 86 ms MUSE ECG QT Interval 414 ms MUSE ECG QTC Interval 447 ms MUSE ECG P Shobonier 50 degrees MUSE ECG R Shobonier -53 degrees MUSE ECG T Wave Shobonier 43 degrees MUSE ECG Diagnosis Normal sinus rhythm with sinus arrhythmia MUSE ECG Diagnosis Left axis deviation MUSE ECG Diagnosis Anterior infarct , age undetermined MUSE ECG Diagnosis T wave abnormality, consider lateral ischemia MUSE ECG Diagnosis MUSE ECG Diagnosis MUSE ECG Diagnosis Confirmed by Jordyn Pompa ([id number]) on 05/02/2025 3:24:55 PM MUSE ECG 05/01/2025 [...] 05/04/2025 12:29 PM EDT 4.01 millicuries Tiotropium [place] Monohydrate (Spiriva Respimat) 2.5 MCG/ACT inhaler 2 [...] 1229 (Given - Provider: Eliseo Cueva) Tiotropium [place] Monohydrate (Spiriva Respimat) 2.5 MCG/ACT inhaler 2 [...] care Linked Groups Order Group 1: Tiotropium [place] Monohydrate (Spiriva Respimat) 2.5 MCG/ACT inhaler 2 [...] documented as of this encounter Care Teams Machine Striper Relationship Specialty Start Date End Date Pcp, No [address] [place] [address] PCP - General Family Medicine 03/20/25 Isabella Saucedo APRN [address] [facility] [address] [place] [address] Referring Physician 02/26/25 Jeannie Mcmillan RN [facility] [address] [place] [address] Registered Nurse Transplant Surgery 03/08/25 [place] [address] Registered Nurse Transplant Surgery 03/08/25 Rodney Gonzáles MD [address] [facility] [address] [place] [address] Medical Oncologist 04/10/25 documented as of this encounter
[2025-05-30 10:48] LABS: Hematocrit 43.5 % (42.0-52.0); Hemoglobin 15.4 g/dL (14.1-18.0); Immature Granulocytes % 1.1 %; Mean Corpuscular HGB Conc 35.4 g/dL (31.8-35.4); Mean Corpuscular Hemoglobin 32.3 pg (27.0-31.2); Mean Corpuscular Volume 91.2 fl (80-94); Nucleated Red Blood Cells % 0 %; Platelet Count 219 K/mm3 (142-424); Red Blood Count 4.77 M/mm3 (4.60-6.20); Red Cell Distribution Width-SD 67.5 fL; White Blood Count 12.3 K/mm3 (4.8-10.8)
--- OUTSIDE RECORDS SUMMARY | 2025-05-30 10:52 | XMS_ITS | Encounter Summary ---
Author Organization [place] [address] Care Team Providers Care Applications Trainer Name Role Phone Jan Sin MD Unavailable [phone] Macario Pryor MD Unavailable Unavailabl e Cr Resendez MD Primary Care Provider [phone] Encounter Details Date Type Department Care Team (Latest Contact Info) Description 04/24/2025 Results Follow-Up SEP Luis [address] [place] [address] Cr Resendez MD [address] [place] [address] [place] [address] HEMOGLOBIN A1C, COMPREHENSIVE METABOLIC PANEL, CBC [...] were little bit elevated but [facility]. A1c was slightly elevated in the [...] Trainer Relationship Specialty Start Date End Date Macario Pryor MD [address] [place] [address] [place] [address] PCP - Hematology/Oncology Internal Medicine-Medical Oncology 11/12/15 Cr Resendez MD [address] [place] [address] [place] [address] PCP - General Family Medicine 11/24/21 Jan Sin MD [address] [place] [address] [place] [address] Internal Medicine-Cardiovascul ar Disease 08/28/14 documented as of this encounter
--- OUTSIDE RECORDS SUMMARY | 2025-05-30 10:52 | XMS_ITS | Encounter Summary ---
Author Organization [facility] [place] [address] Care Team Providers Care Director Of Recreation Therapy Name Role Phone Jan Sin MD Unavailable [phone] Macario Pryor MD Un[facility] Cr Resendez MD Primary Care Provider [phone] Reason for Visit * Reason Onset Date Comments Central Patient Navigator Outreach 04/19/2025 AWV Questionnaire Encounter Details Date Type Department Care Team (Late st Contact Info) Description 04/19/2025 Patient Outreach SEP [facility] [address] [place] [address] Cr Resendez MD [address] [place] [address] [place] [address] Central Patient Navigator Outreach (AWV Questionnaire/) Social [...] Questionnaires Attempt Count: inbound Care Gaps Addressed supervisor train operations: Medicare Questionnaire Outcome:Medicare Questionnaire completed Call back number: [phone] * Esme Mendez - 04/19/2025 10:38 AM EDT Patient Outreach: Pre-Visit Questionnaires Attempt Count: 1st Care Gaps Addressed supervisor train operations: Medicare Questionnaire Outcome:MyChart Message Sent and Patient not available Call back number: [phone] documented in this encounter Plan of Treatment [...] as of this encounter Care Teams Director Of Recreation Therapy Relationship Specialty Start Date End Date Macario Pryor MD [address] [place] [address] [place] [address] PCP - Hematology/Oncology Internal Medicine-Medical Oncology 11/12/15 Cr Resendez MD [address] [place] [address] [place] [address] PCP - General Family Medicine 11/24/21 Jan Sin MD [address] [place] [address] [place] [address] Internal Medicine-Cardiovascul ar Disease 08/28/14 documented as of this encounter
--- OUTSIDE RECORDS SUMMARY | 2025-05-30 10:52 | XMS_ITS | Encounter Summary ---
Author Organization [facility] Address [address] [place] [address] Care Team Providers Care Money Manager Name Role Phone Lewis Isabella Darling SMOKE JUMPER SUPERVISOR Unavailable [phone] Jeannie Mcmillan RN Unavailable [phone] Ebony Shoemaker Unavailable [phone] Pcp, No Primary Care Provider Unavailabl e [place] Gonzáles MD Unavailable [phone] Reason for Visit * Reason Comments Txp Surgical Follow-up Encounter Details Date Type Department Care Team (Late st Contact Info) Description 04/06/2025 Telephone [facility] [address] [facility] [address] [place] [address] Ebony Shoemaker [place] [id number] Txp Surgical Follow-up Social History Tobacco Use [...] AM EDT I spoke with Veronica the office runner with Isabella Kitchen' office. She said that [...] chemo. He does not follow with a paralegal supervisor per Ashley. Added to Dr. Do's discussion [...] documented as of this encounter Care Teams Money Manager Relationship Specialty Start Date End Date Pcp, [address] [address] PCP - General Family Medicine 03/20/25 Isabella Saucedo APRN 1210 [facility] [address] [place], [place] [address] Referring Physician 02/26/25 Jeannie Mcmillan, RN CH-TRANSPLANT ADMINISTRATION 800 [place] [address] Registered Nurse Transplant Surgery 03/08/25 [place] [address] Registered Nurse Transplant Surgery 03/08/25 Rodney Gonzáles MD 1210 [facility] [address] [place] [address] Medical Oncologist 04/10/25 documented as of this encounter
--- OUTSIDE RECORDS SUMMARY | 2025-05-30 10:52 | XMS_ITS | Encounter Summary ---
Author Organization [place] [address] Care Team Providers Care Solution Specialist Name Role Phone Jan Sin MD Unavailable [phone] Macario Pryor MD Unavailable Unavailabl e Cr Resendez MD Primary Care Provider [phone] Reason for Visit * Reason Comments Medication Refill Encounter Details Date Type Department Care Team (Late st Contact Info) Description 04/26/2025 Refill SEP Luis [facility] [place] [address] Cr Resendez MD [address] [place] [address] [place] [address] Medication Refill Social History Tobacco Use Types [...] and sent to requesting pharmacy. Routed to [facility] if an appointment is needed. clopidogreL There [...] Discontinue Reason Start Date End Da te iowmfvytyzn-vkkzlnxan-siy anter (TRELEGY ELLIPTA) 100-62.5-25 mcg Inhl Disk [...] documented as of this encounter Care Teams Solution Specialist Relationship Specialty Start Date End Date Macario Pryor MD [address] [place] [address] [place] [address] PCP - Hematology/Oncology Internal Medicine-Medical Oncology 11/12/15 Cr Resendez MD [address] [place] [address] [place] [address] PCP - General Family Medicine 11/24/21 Jan Sin MD [address] [place] [address] [place] [address] Internal Medicine-Cardiovascul ar Disease 08/28/14 documented as of this encounter
--- OUTSIDE RECORDS SUMMARY | 2025-05-30 10:53 | XMS_ITS | Encounter Summary ---
Author [place] [address] Care Team Providers Care Director Sales Name Role Phone Jan Sin MD Unavailable [phone] Macario Pryor MD Unavailable Cr Rodriguez MD Primary Care Provider [phone] Reason for Visit * Reason Onset Date Comments Bloated 05/05/2025 Encounter Details Date Type Department Care Team (Late st Contact Info) Description 05/05/2025 Nurse Triage SEP Nurse Now [address] [place] [phone] Alicia Jones, RN Social History Tobacco [...] Call -Chief Complaint: pt just returned from [facility] for oncology. He was discharged today [...] getting worse Protocols used: Abdomen Bloating and [id number] documented in this encounter Plan of Treatment Not on file documented as of this encounter Goals Goal Patient Goal Type Associated Problems Recent Progress Patient-Stated? Author Blood Pressure < 140/90 Blood Pressure 124/50(2024 8:47 AM EDT) No Jun Curz MD Eat better, exercise, reach an ideal [...] as of this encounter Care Teams Director Sales Relationship Specialty Start Date End Date Macario Pryor MD [address] [place] [address] [place] [address] PCP - Hematology/Oncology Internal Medicine-Medical Oncology 11/12/15 Cr Resendez MD [address] [place] [address] [place] [address] PCP - General Family Medicine 11/24/21 Jan Sin MD [address] [place] [address] [place] [address] Internal Medicine-Cardiovascul ar Disease 08/28/14 documented as of this encounter
--- OUTSIDE RECORDS SUMMARY | 2025-05-30 10:53 | XMS_ITS | Encounter Summary ---
Author Organization Healthcare Address [address] [place] [address] Care Team Providers Care Baseboard Heating Installer Name Role Phone Isabella Saucedo Phong PYTHON PROGRAMMER Unavailable [phone] Jeannie Mcmillan RN Unavailable [phone] Ebony Shoemaker Unavailable [phone] Pcp, No Primary Care Provider Unavailabl e Rodney Gonzáles MD Unavailable [phone] Encounter Details Date Type Department Care Team (Late st Contact Info) Description 01/04/2025 Orders Only External Location [address] [place] [address] Provider, External Social History Tobacco Use Types [...] documented as of this encounter Care Teams Baseboard Heating Installer Relationship Specialty Start Date End Date Pcp, No [address] [place] [id number] PCP - General Family Medicine 03/20/25 Isabella Saucedo APRN 1210 [facility] [address] [place] [address] Referring Physician 02/26/25 Jeannie Mcmillan, RN [employer] [address] [place] [address] Registered Nurse Transplant Surgery 03/08/25 [place] [address] Registered Nurse Transplant Surgery 03/08/25 Rodney Gonzáles MD 1210 [facility] [address] [place] [address] Medical Oncologist 04/10/25 documented as of this encounter
--- OUTSIDE RECORDS SUMMARY | 2025-05-30 10:53 | XMS_ITS | Encounter Summary ---
Author Organization Healthcare Address [address] [place] [address] Care Team Providers Care Banquet Attendant Name Role Phone Isabella Saucedo Phong VENETIAN BLIND MECHANIC Unavailable [phone] Jeannie Mcmillan RN Unavailable [phone] Ebony Shoemaker Unavailable [phone] Pcp, No Primary Care Provider Unavailabl e Rodney Gonzáles MD Unavailable Encounter Details Date Type Department Care Team (Late st Contact Info) Description 11/15/2024 Orders Only External Location [address] [place] [address] Provider, External Social History Tobacco Use Types [...] documented as of this encounter Care Teams Banquet Attendant Relationship Specialty Start Date End Date Pcp, [place] [address] PCP - General Family Medicine 03/20/25 Isabella Saucedo APRN 1210 [facility] [address] [place] [address] Referring Physician 02/26/25 Jeannie Mcmillan, RN [employer] [address] [place] [address] Registered Nurse Transplant Surgery 03/08/25 Ebony Shoemaker [place] [id number] Registered Nurse Transplant Surgery 03/08/25 Rodney Gonzáles MD 1210 [facility] [address] [place] [address] Medical Oncologist 04/10/25 documented as of this encounter
--- OUTSIDE RECORDS SUMMARY | 2025-05-30 10:53 | XMS_ITS | Encounter Summary ---
Author Organization [place] [address] Care Team Providers Care Painting Instructor Name Role Phone Jna Sin MD Unavailable [phone] Macario Pryor MD Unavailable [facility] Cr Lopez MD Primary Care Provider [phone] Reason for Visit * Reason Comments Medication Refill Encounter Details Date Type Department Care Team (Late st Contact Info) Description 05/17/2025 Refill SEP Luis [address] [place] [address] Lorri Crespo, STREETS AND BUILDINGS DECORATOR [address] [place] [address] Medication Refill Social History Tobacco Use Types [...] documented as of this encounter Care Teams Painting Instructor Relationship Specialty Start Date End Date Macario Pryor MD [address] [place] [address] [place] [address] PCP - Hematology/Oncology Internal Medicine-Medical Oncology 11/12/15 Cr Resendez MD [address] [place] [address] [place] [address] PCP - General Family Medicine 11/24/21 Jan Sin MD [address] [place] [address] [place] [address] Internal Medicine-Cardiovascul ar Disease 08/28/14 documented as of this encounter
--- OUTSIDE RECORDS SUMMARY | 2025-05-30 10:53 | XMS_ITS | Encounter Summary ---
Author Organization Healthcare Address [address] [place] [address] Care Team Providers Care Accountant Helper Name Role Phone Isabella Saucedo Phong ELECTRICAL AND INSTRUMENT MECHANIC Unavailable [phone] Jeannie Mcmillan RN Unavailable [phone] Ebony Shoemaker Unavailable [phone] Pcp, No Primary Care Provider Unavailabl e Rodney Gonzáles MD Unavailable [phone] Encounter Details Date Type Department Care Team (Late st Contact Info) Description 01/12/2025 Orders Only External Location [address] [place] [address] Provider, External Social History Tobacco Use Types [...] documented as of this encounter Care Teams Accountant Helper Relationship Specialty Start Date End Date Pcp, [place] [address] PCP - General Family Medicine 03/20/25 Isabella Saucedo APRN 1210 [facility] [address] [place] [address] Referring Physician 02/26/25 Jeannie Mcmillan, RN [employer] [address] [place] [address] Registered Nurse Transplant Surgery 03/08/25 Ebony Shoemaker [place] [phone] Registered Nurse Transplant Surgery 03/08/25 Rodney Gonzáles MD 1210 [facility] [address] [place] [address] Medical Oncologist 04/10/25 documented as of this encounter
--- OUTSIDE RECORDS SUMMARY | 2025-05-30 10:53 | XMS_ITS | Encounter Summary ---
Author Organization Healthcare Address [address] [place] [address] Care Team Providers Care Computer Peripheral Equipment Operator Name Role Phone Isabella Saucedo Phong PATIENT ADMITTING CLERK Unavailable [phone] Jeannie Mcmillan RN Unavailable [phone] Ebony Shoemaker Unavailable [phone] Pcp, No Primary Care Provider Unavailabl e Rodney Gonzáles MD Unavailable [phone] Encounter Details Date Type Department Care [...] or living in a fdc (including now)? No 05/02/2025 [facility] Utilities Answer Date Recorded In [...] as of this encounter Care Teams Computer Peripheral Equipment Operator Relationship Specialty Start Date End Date Pcp, No [address] [place] [address] PCP - General Family Medicine 03/20/25 Isabella Saucedo APRN [address] [place] [address] [place] [address] Referring Physician 02/26/25 Jeannie Mcmillan, RN [employer] [address] [place] [address] Registered Nurse Transplant Surgery 03/08/25 [place] [address] Registered Nurse Transplant Surgery 03/08/25 Rodney Gonzáles MD [address] [place] [address] [place] [address] Medical Oncologist 04/10/25 documented as of this encounter
--- OUTSIDE RECORDS SUMMARY | 2025-05-30 10:53 | XMS_ITS | Encounter Summary ---
Author Organization Healthcare Address [address] [place] [address] Care Team Providers Care Associate Name Role Phone Isabella Saucedo Phong SAND CASTER APPRENTICE Unavailable [phone] Jeannie Mcmillan RN Unavailable [phone] Ebony Shoemaker Unavailable [phone] Pcp, No Primary Care Provider Unavailabl e Rodney Gonzáles MD Unavailable [phone] Encounter Details Date Type Department Care Team (Late st Contact Info) Description 01/12/2025 Orders Only External Location [address] [place] [address] Provider, External Social History Tobacco Use Types [...] documented as of this encounter Care Teams Associate Relationship Specialty Start Date End Date Pcp, No [address] [place], [place] [id number] PCP - General Family Medicine 03/20/25 Isabella Saucedo APRN 1210 [facility] [address] [place] [address] Referring Physician 02/26/25 Jeannie Mcmillan, RN [employer]MINISTRATION [address] [place] [address] Registered Nurse Transplant Surgery 03/08/25 Ebony Shoemaker [place] [phone] Registered Nurse Transplant Surgery 03/08/25 Rodney Gonzáles MD 1210 [facility] [address] [place] [address] Medical Oncologist 04/10/25 documented as of this encounter
--- OUTSIDE RECORDS SUMMARY | 2025-05-30 10:53 | XMS_ITS | Encounter Summary ---
Author Organization Healthcare Address [address] [place] [address] Care Team Providers Care Regulatory Analyst Name Role Phone Isabella Saucedo Phong SOCIAL SERVICES MANAGER Unavailable [phone] Jeannie Mcmillan RN Unavailable [phone] Ebony Shoemaker Unavailable [phone] Pcp, No Primary Care Provider Unavailabl e Rodney Gonzáles MD Unavailable [phone] Encounter Details Date Type Department Care Team (Late st Contact Info) Description 12/07/2024 Orders Only External Location [address] [place] [address] Provider, External Social History Tobacco Use Types [...] documented as of this encounter Care Teams Regulatory Analyst Relationship Specialty Start Date End Date Pcp, No [address] [place], [place] [phone] PCP - General Family Medicine 03/20/25 Isabella Saucedo APRN 1210 [facility] [address] [place] [address] Referring Physician 02/26/25 Jeannie Mcmillan, RN [employer] ADMINISTRATION [address] [place] [address] Registered Nurse Transplant Surgery 03/08/25 Ebony Shoemaker [place] [id number] Registered Nurse Transplant Surgery 03/08/25 Rodney Gonzáles MD 1210 [facility] [address] [place] [address] Medical Oncologist 04/10/25 documented as of this encounter
--- OUTSIDE RECORDS SUMMARY | 2025-05-30 10:53 | XMS_ITS | Encounter Summary ---
Author Organization Healthcare Address [address] [place] [address] Care Team Providers Care Outside Property Agent Name Role Phone Isabella Saucedo Phong COMMUNITY RELATIONS OFFICER Unavailable [phone] Jeannie Mcmillan RN Unavailable [phone] Ebony Shoemaker Unavailable [phone] Pcp, No Primary Care Provider Unavailabl e Rodney Gonzáles MD Unavailable [phone] Encounter Details Date Type Department Care Team (Late st Contact Info) Description 01/14/2024 Orders Only External Location [address] [place] [address] Provider, External Social History Tobacco Use Types [...] documented as of this encounter Care Teams Outside Property Agent Relationship Specialty Start Date End Date Pcp, No [address] [place] [address] PCP - General Family Medicine 03/20/25 Isabella Saucedo APRN 1210 [facility] [address] [place] [address] Referring Physician 02/26/25 Jeannie Mcmillan, RN [employer]-TRANSPLANT ADMINISTRATION [address] [place] [address] Registered Nurse Transplant Surgery 03/08/25 [place] [address] Registered Nurse Transplant Surgery 03/08/25 Rodney Gonzáles MD 1210 [facility] [address] [place] [address] Medical Oncologist 04/10/25 documented as of this encounter
--- OUTSIDE RECORDS SUMMARY | 2025-05-30 10:53 | XMS_ITS | Clinical Summary ---
Author Organization [facility] Address [address] [place] [address] Phone Care Team Providers Care Mechanical Technical Service Specialist Name Role Phone Jan Sin MD Unavailable [phone] Macario Pryor MD [facility]available [facility] Primary Care Provider [phone] Allergies Active Allergy Reactions Criticality Noted Date [...] 25 Active nalOXone (NARCAN) 4 mg/actuation Nasl Lostine, Non-Aerosol 0.1 mL by Nasal route daily [...] the original. cstahillary soap contracts signed 04/19/12 [facility]05/01/15 #[id number] [facility] 12/12/15 ,02/28/16 [id number],04/09/16 [id number], 11/27/16 [facility] 06/08/14,12/12/15, 10/02/16 Problem Noted Date Diagnosed Date Hepatocellular carcinoma 04/23/2025 Assessment & Plan (04/23/2025 9:20 AM EDT): Under treatment with GI and oncology at [facility]. On once monthly chemotherapy at [...] (12/01/2022): Added automatically from request for surgery [id number] Mixed simple and mucopurulent chronic bronchitis 11/26/2022 Assessment & Plan (04/23/2025 9:20 AM EDT): Stable on Trelegy continue current regiment Assessment & Plan (12/21/2024 9:37 AM EDT): Orders: BASIC METABOLIC PANEL; Future Assessment & Plan (09/07/2024 10:49 AM EST): Orders: xdfipzacrkp-lluffknim-dyvfpysy (TRELEGY ELLIPTA) 100-62.5-25 mcg Inhl Disk with [...] 6 mo later at [facility] with // patent grafts 2010 Unspecified essential [...] Description 05/17/2025 Refill SEP Luis RODRIGUEZ [address] [place] [address] Lorri Crespo APRN Medication Refill 05/05/2025 Nurse Triage SEP Nurse Now [address] [place] [address] Alicia Jones RN 04/26/2025 Refill SEP Luis RODRIGUEZ [address] [place] [address] Cr Resendez MD Medication Refill 04/24/2025 Results Follow-Up [address] [place] [address] Cr Resendez MD HEMOGLOBIN A1C, COMPREHENSIVE METABOLIC PANEL, CBC WITH DIFF, Additional followed-up results: 3 04/23/2025 9:30 AM EDT Clinical Support [address] [place] [address] Elizabeth Reynoso, RN Encounter for support and coordination of transition of care (Primary Dx) 04/23/2025 9:00 AM EDT Office Visit [address] [place] [address] Cr Resendez MD Encounter for Medicare annual wellness exam (Primary Dx); Hepatocellular carcinoma (HCC); Chronic systolic congestive heart failure (HCC); Mixed simple and mucopurulent chronic bronchitis (HCC); Unspecified essential hypertension; Screening for prostate cancer; Bilateral impacted cerumen 04/19/2025 Patient Outreach [facility] [address] [place], [place] [id number] Cr Resendez MD Central Patient Navigator Outreach (AWV Questionnaire/) 03/26/[address] [place] [address] Cr Resendez MD Medication Refill from Last [...] maker CORONARY ANGIOPLASTY WITH STENT PLACEMENT 01/04/2024 [facility] NECK SURGERY 12/06/2024 [facility] Medical History Medical History Date Comments COPD (chronic obstructive pu lmonary disease) ([facility]) Shortness of breath Blood circulation, collateral fe et and hands get cold since cabg CAD (coronary artery disease) Hypertension PA (myocardial infarction) ([facility]) 4 times Arthritis Headache(784.0) Neuromuscular disorder ([facility]) lennox k and left leg Other [...] Cheng MD Medical Devices Implanted Type Area Clinical Investigator Device Identifier Shelf Expiration Date Model / Serial / Lot [employer] Vigilant ICD D233 / / [employer] Lead Lead [id number] / / St. [...] <200 mg/dL 04/23/2025 4:37 PM EDT [employer] Comment: < 200 Desirable 200 - 239 Borderline High >= 240 High Triglyceride 38 <150 mg/dL 04/23/2025 4:37 PM EDT [employer] Comment: < 150 Normal 150 - 199 Borderline High 200 - 499 High >= 500 Very High HDL 40 >=40 mg/dL 04/23/2025 4:37 PM EDT [employer] Comment: > 60 Optimal 40 - 60 Acceptable < 40 Low LDL Calculated 47 <100 mg/dL 04/23/2025 4:37 PM EDT [employer] Comment: < 100 Optimal 100 - 129 Near or above optimal 130 - 159 Borderline High 160 - 189 High >= 190 Very High The National Institutes of Health (NIH) equation is used for all lipid panels that report calculated LDL (LDL-C). Non-HDL-C Calculated 58 <=129 mg/dL 04/23/2025 4:37 PM EDT [employer] Comment: <130 Desirable 130-159 Above Desirable 160-189 Borderline High 190-219 High >= 220 Very High Fasting Specimen? Yes None 025 4:37 PM EDT [employer] Blood VENOUS BLOOD / Unknown Venipuncture / Unknown 04/23/2025 9:47 AM EDT 04/23/2025 9:47 AM EDT Cr Resendez MD CHEMISTRY ORDERABLES Final Res ult Performing Organization Address [facility] de Phone Number [address] , [place] [id number] * TSH REFLEX TO FT4 (04/23/2025 9:47 AM EDT) TSH Reflex 0.889 0.270 - 4.200 mcIU/mL 04/23/2025 4:37 PM EDT [facility] [employer] [facility] Blood VENOUS BLOOD / Unknown Venipuncture / Unknown 04/23/2025 9:47 AM EDT 04/23/2025 9:47 AM EDT Narrative [facility] [employer] [facility] - 04/23/2025 4:37 PM EDT Ingestion of fernanda doses of biotin (>5 mg/day) taken within 8 hours of drawing blood sample can interfere with this immunoassay test. Cr Resendez MD CHEMISTRY ORDERABLES Final Res ult Performing Organization Address [facility] Phone Number [facility] [employer] , [place] [address] * PROSTATE SPECIFIC ANTIGEN (SCREENING) (04/23/2025 9:47 AM EDT) Total Psa 0.08 <=4.00 ng/mL 04/23/2025 3:49 PM EDT [facility] [employer] [facility] Blood VENOUS BLOOD / Unknown Venipuncture / Unknown 04/23/2025 9:47 AM EDT 04/23/2025 9:47 AM EDT Narrative [facility] [employer] [facility] - 04/23/2025 3:49 PM EDT [...] Res ult [facility] [address] [facility] , [address] [place], [place] [id number] * (ABNORMAL) CBC WITH DIFF (04/23/2025 9:47 [...] 4:08 PM EDT [facility] Cassia # 1.2(H) 0.3 - 0.9 x10(3)/mcL 04/23/2025 4:08 PM EDT [facility] Eos # Manual 0.0 0.0 - 0.5 x10(3)/mcL 04/23/2025 4:08 PM EDT [facility] Baso # Manual 0.1 0.0 - 0.1 x10(3)/mcL 04/23/2025 4:08 PM EDT [facility] Polychrom Slight 04/23/2025 4:08 PM EDT [facility] [place] Cell Moderate 04/23/2025 4:08 PM EDT [facility] Elliptocyte Occasional 04/23/2025 4:08 PM EDT [facility] Target Cell Occasional 04/23/2025 4:08 PM EDT [facility] Blood VENOUS BLOOD / Unknown Venipuncture / Unknown 04/23/2025 9:47 AM EDT 04/23/2025 9:47 AM EDT us Cr Resendez MD HEMATOLOGY ORDERABLES Final Re sult [facility] [address] [facility] , [address] [place] [phone] * (ABNORMAL) HEMOGLOBIN A1C (04/23/2025 9:47 AM EDT) Hgb A1C 5.7(H) 4.2 - 5.6 % 04/23/2025 5:18 PM EDT [facility] Est. Avg Glucose 117 mg/dL 04/23/2025 5:18 PM EDT [facility] Blood VENOUS BLOOD / Unknown Venipuncture / Unknown 04/23/2025 9:47 AM EDT 04/23/2025 9:47 AM EDT Narrative [facility] - 04/23/2025 5:18 PM EDT [...] CHEMISTRY ORDERABLES Final Res ult [facility] [address] [facility] , [place] [address] * (ABNORMAL) COMPREHENSIVE METABOLIC PANEL (04/23/2025 9:47 AM EDT) [facility] Sodium 142 136 - 145 mmol/L 04/23/2025 4:37 PM EDT [facility] Potassium 3.9 3.5 - 5.0 mmol/L 04/23/2025 4:37 PM EDT [facility] Chloride 104 98 - 107 mmol/L 04/23/2025 4:37 PM EDT [facility] Total CO2 28 22 - 29 mmol/L 04/23/2025 4:37 PM EDT [facility] Anion Gap 10 7 - 16 mmol/L 04/23/2025 4:37 PM EDT [facility] Calcium 9.8 8.8 - 10.4 mg/dL 04/23/2025 4:37 PM EDT [facility] Glucose Lvl 90 70 - 99 mg/dL 04/23/2025 4:37 PM EDT [facility] BUN 13 8 - 23 mg/dL 04/23/2025 4:37 PM EDT [facility] Creatinine 0.84 0.67 - 1.30 mg/dL 04/23/2025 4:37 PM EDT [facility] Albumin 3.8 3.2 - 4.6 gm/dL 04/23/2025 4:37 PM EDT [facility] Total Protein 8.3 6.4 - 8.3 gm/dL 04/23/2025 4:37 PM EDT [facility] Bili Total 1.2 0.2 - 1.4 mg/dL 04/23/2025 4:37 PM EDT [facility] ALT 26 <=41 U/L 04/23/2025 4:37 PM EDT [facility] AST 74(H) <=40 U/L 04/23/2025 4:37 PM EDT [facility] Alk Phos 142(H) 40 - 129 U/L 04/23/2025 4:37 PM EDT [facility] eGFR (CKD-EPIcr 2020) 96 >=60 mL/min/1.7 3 m2 04/23/2025 4:37 PM EDT [facility] Comment:Estimated GFR was ca lculated using the CKD-EPIcr (2020) equation refit without race. The equation is recommended by the National Kidney Foundation - [place] Society of Nephrology Task Force. Blood VENOUS BLOOD / Unknown Venipuncture / Unknown 04/23/2025 9:47 AM EDT 04/23/2025 9:47 AM EDT us Cr Resendez MD CHEMISTRY ORDERABLES Final Res ult [facility] [address] [facility] , [address] [place] [phone] * US AAA SCREENING EXAM MEDICARE (12/16/2023 [...] CLINICAL HISTORY: Z13.6-Encounter for screening for cardiovascular [id number]-CM. COMPARISON: CT abdomen pelvis from 09/07/2023 PROCEDURE COMMENTS: Routine sonographic evaluation of the abdominal aorta with special service representative images sent to PACS along with ash handler notes. FINDINGS: The abdominal aorta is normal in caliber. Maximum transverse diameter is 2.4 cm. Atherosclerotic change in the aorta and iliac vessels noted unchanged from the recent CT Procedure Note Cr Ramachandran MD - 12/16/2023 US AAA SCREENING EXAM MEDICARE, 12/16/2023 9:55 AM CLINICAL HISTORY: Z13.6-Encounter for screening for cardiovascular orulmtdkl-WUM-63-CM. COMPARISON: CT abdomen pelvis from 09/07/2023 PROCEDURE COMMENTS: Routine sonographic evaluation of the abdominal aortawith special service representative images sent to PACS along with ash handler notes. FINDINGS: The abdominal aorta is normal [...] of the ordering clinician. Cr Resendez MD [facility] ORDERABLES Final Result * COLONOSCOPY [...] Pena MD Performing Provider Raymond Harris RN Flame Hardening Machine Operator Gurvinder Garner MD Anesthesiologist Mary Jo [...] PATHOLOGY TISSUE REQUEST Casper Pena MD 01/13/2023 9711 2 : sigmoid colon polyp via cold snare Tissue Large Intestine, Sigmoid Colon PATHOLOGY TISSUE REQUEST Casper Pena MD 01/13/2023 1303 us Casper Pena MD ENDOSCOPY PROCEDURE ORDERABL ES Final Result * HEPATITIS C ANTIBODY - SCREENING (11/24/2021 10:38 AM EDT) Hep C Ab Non-Reactiv e Non-Reacti ve 11/24/2021 3:20 PM EDT [email or web address] Blood VENOUS BLOOD / Unknown Venipuncture / Unknown 11/24/2021 10:38 AM EDT 11/24/2021 10:43 AM EDT us Cr Resendez MD HEMATOLOGY ORDERABLES Final Re sult [employer] [address] [facility] , [place] [address] from Last 3 Months or Most Recently Relevant to Health Maintenance Insurance [place] [address] [place] Member Subscriber Plan / Payer (Ef fective 2016-Present) Name:Rl Steward Relation to Subscriber:Self Name:Rl Steward Payer ID:Not on file Group ID:Not on file Type:Not on file Address: [address] [place] [id number] [place] PART A [place] PART [place] B [place] Care Teams Mechanical Technical Service Specialist Relationship Specialty Start Date End Date Macario Pryor MD [address] [place] [address] [place] [address] PCP - Hematology/Oncology Internal Medicine-Medical Oncology 11/12/15 Cr Resendez MD [address] [place] [address] [place] [address] PCP - General Family Medicine 11/24/21 Jan Sin MD [address] [place] [address] [place] [address] Internal Medicine-Cardiovascul ar Disease 08/28/14
--- OUTSIDE RECORDS SUMMARY | 2025-05-30 10:53 | XMS_ITS | Encounter Summary ---
Author Organization Healthcare Address [address] [place] [address] Care Team Providers Care Radiopharmacist Name Role Phone Isabella Saucedo Phong CAR KNOCKER Unavailable [phone] Jeannie Mcmillan RN Unavailable [phone] Ebony Shoemaker Unavailable [phone] Pcp, No Primary Care Provider Unavailabl e Rodney Gonzáles MD Unavailable [phone] Encounter Details Date Type Department Care Team (Late st Contact Info) Description 11/22/2024 Orders Only External Location [address] [place] [address] Provider, External Social History Tobacco Use Types [...] documented as of this encounter Care Teams Radiopharmacist Relationship Specialty Start Date End Date Pcp, No [address] [place], [place] [phone] PCP - General Family Medicine 03/20/25 Isabella Saucedo APRN 1210 [facility] [address] [place] [address] Referring Physician 02/26/25 Jeannie Mcmillan, RN [facility] [address] [place] [address] Registered Nurse Transplant Surgery 03/08/25 Ebony Shoemaker [place] [id number] Registered Nurse Transplant Surgery 03/08/25 Rodney Gonzáles MD 1210 [facility] [address] [place] [address] Medical Oncologist 04/10/25 documented as of this encounter
--- OUTSIDE RECORDS SUMMARY | 2025-05-30 10:53 | XMS_ITS | Encounter Summary ---
Author Organization Healthcare Address [address] [place] [address] Care Team Providers Care Desktop Publishing Operator Name Role Phone Isabella Saucedo Phong LITIGATION MANAGER Unavailable [phone] Jeannie Mcmillan RN Unavailable [phone] Ebony Shoemaker Unavailable [phone] Pcp, No Primary Care Provider Unavailabl e Rodney Gonzáles MD Unavailable [phone] Encounter Details Date Type Department Care Team (Late st Contact Info) Description 01/06/2024 Orders Only External Location [address] [place] [address] Provider, External Social History Tobacco Use Types [...] documented as of this encounter Care Teams Desktop Publishing Operator Relationship Specialty Start Date End Date Pcp, [place] [address] PCP - General Family Medicine 03/20/25 Isabella Saucedo APRN 1210 [facility] [address] [place] [address] Referring Physician 02/26/25 Jeannie Mcmillan, RN [facility] [address] [place] [address] Registered Nurse Transplant Surgery 03/08/25 Ebony Shoemaker [place] [phone] Registered Nurse Transplant Surgery 03/08/25 Rodney Gonzáles MD 1210 [facility] [address] [place] [address] Medical Oncologist 04/10/25 documented as of this encounter
--- OUTSIDE RECORDS SUMMARY | 2025-05-30 10:53 | XMS_ITS | Encounter Summary ---
Author Organization Healthcare Address [address] [place] [address] Care Team Providers Care Rail Switch Operator Name Role Phone Isabella Saucedo Phong NARRATIVE WRITER Unavailable [phone] Jeannie Mcmillan RN Unavailable [phone] Ebony Shoemaker Unavailable [phone] Pcp, No Primary Care Provider Unavailabl e Rodney Gonzáles MD Unavailable [phone] Encounter Details Date Type Department Care [...] any time in the past 12 m [facility], were you homeless or living in a snf (including now)? No 05/02/2025 [facility] Utilities Answer Date Recorded In [...] documented as of this encounter Care Teams Rail Switch Operator Relationship Specialty Start Date End Date Pcp, [address] [address] PCP - General Family Medicine 03/20/25 Isabella Saucedo APRN 1210 [facility] [address] [place] [address] Referring Physician 02/26/25 Jeannie Mcmillan, RN [facility] [address] [place] [address] Registered Nurse Transplant Surgery 03/08/25 [place] [address] Registered Nurse Transplant Surgery 03/08/25 Rodney Gonzáles MD 1210 [facility] [address] [place] [address] Medical Oncologist 04/10/25 documented as of this encounter
--- OUTSIDE RECORDS SUMMARY | 2025-05-30 10:53 | XMS_ITS | Clinical Summary ---
Author Organization [facility] Address [facility] [place] [address] Care Team Providers Care Procurement Professional Name Role Phone Cr Resendez MD Primary Care Provider [phone] Source Comments This information has been disclosed [...] therelease of HIV test results or diagnoses. [id number] Health Allergies Active Allergy Reactions [...] PM EDT Active naloxone (NARCAN) 4 mg/actuation Jaguas Apply 1 spray in one nostril if [...] Redo CABG [address] [facility] with grafts 2009 Social History Tobacco Use Types Packs/Day Years Used Date Smoking Tobacco: Some Days Cigarettes Passive Smoke Exposure: Current Tobacco Cessation:Ready to Q uit: Not Asked; Counseling Given: Not Answered Utilities Answer Date Recorded In the past 12 months has th e [employer], gas, oil, or water [employer] threatened to shut off services in your [...] any time in the past 12 m [facility], were you homeless or living in [...] 05/08/2019, 07/18/2012 Medical Devices Implanted Type Area Oral And Maxillofacial Surgery Resident Device Identifier Shelf Expiration Date Model / Serial / Lot Cage Spnl 6mm 8d Sm Eit Crv Intrbd Fs Strl Lf - [id number] Implanted:Qty: 1 on 12/11/2024 by Nayan Mayo MD at [facility] Cage N/A: Spine Cervical [employer]INE 02/26/2026 [id number] / / Graft Bn Bn Fbr 1cc Algrf Frzdr Plia[employer] [facility] - [id number] Implanted:Qty: 1 on 12/11/2024 by Nayan Mayo MD at [facility] Graft N/A: Spine Cervical LIFE [employer] 02/21/2028 [id number] 1 / [id number] / Icd ICD [employer] D233 / / Description:St Chava RA: [id number] 200M RV: [id number] NOT MR CONDITIONAL OF 12/07/2024 - 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 SCS Plate Bone [employer] 14 Mm Prebent L12 Mm X W16 Mm X H2.5 Mm Spine Cervical Anterior 1 Level Nonsterile - [id number] Implanted:Qty: 1 on 12/11/2024 by Nayan Mayo MD at [facility] Plate N/A: Spine Cervical [employer] SPINE [id number] 12 / / Screw Bone [employer]ton Titanium L16 Mm Od4 Mm Spine Cervical Anterior Variable Self Drill Nonsterile - [id number] Implanted:Qty: 4 on 12/11/2024 by Nayan Mayo MD at [facility] Screw N/A: Spine Cervical DEPU[employer] SPINE -0 16 / / Procedures Procedure Name Priority Date/Time Associated Diagnosis Comments RENAL FUNCTION PANEL W/EGFR Routine 12/14/2024 7:00 AM EDT from Last 3 Months or Most Recently Relevant to Health Maintenance Results * (ABNORMAL) Renal Function Panel w/EGFR (12/14/2024 7:00 AM EDT) Sodium 136 133 - 146 mmol/L 12/14/2024 7:50 AM EDT [facility] Potassium 3.9 3.5 - 5.3 mmol/L 12/14/2024 7:50 AM EDT [facility] Chloride 102 98 - 110 mmol/L 12/14/2024 7:50 AM EDT [facility] CO2 27 21 - 33 mmol/L 12/14/2024 7:50 AM EDT [facility] Anion Gap 7 3 - 16 mmol/L 12/14/2024 7:50 AM EDT [facility] BUN 19 7 - 25 mg/dL 12/14/2024 7:50 AM EDT [facility] Creatinine 0.66 0.60 - 1.30 mg/dL 12/14/2024 7:50 AM EDT [facility] Glucose 126(H) 70 - 100 mg/dL 12/14/2024 7:50 AM EDT [facility] Calcium 8.3(L) 8.6 - 10.3 mg/dL 12/14/2024 7:50 AM EDT [facility] Phosphorus 2.7 2.1 - 4.5 mg/dL 12/14/2024 7:50 AM EDT [facility] Albumin 2.7(L) 3.5 - 5.7 g/dL 12/14/2024 7:50 AM EDT [facility] Osmolality, Calculated 286 278 - 305 mOsm/kg 12/14/2024 7:50 AM EDT [facility] EGFR >90 12/14/2024 7:50 AM EDT [facility] Comment: As of 2021, [...] BLOOD ORDERABLES nal Result Performing Organization Address City/State/[facility] Co de Phone Number [facility] [address] from Last 3 Months or Most Recently Relevant to Health Maintenance Insurance MEDICARE A AND B MEDICAID [place] MEDICAID D[place] Advance Directives For more information, please contact: [phone] * Full Code (Latest Code Status on File) Date Activated Date Inactivated Comments 12/07/2024 12:02 AM 12/14/2024 8:22 PM Care Teams Procurement Professional Relationship Specialty Start Date End Date Cr Resendez MD [address] [place] [address] [place] [address] PCP - General Family Medicine 12/07/24
--- OUTSIDE RECORDS SUMMARY | 2025-05-30 10:53 | XMS_ITS | Encounter Summary ---
Author Organization Healthcare Address [address] [place] [address] Care Team Providers Care Duplicating Machine Servicer Name Role Phone Isabella Saucedo PROCESS CHEESE COOKER Unavailable [phone] Jeannie Mcmillan RN Unavailable [phone] Ebony Shoemaker Unavailable [phone] Pcp, No Primary Care Provider Unavailabl e Rodney Gonzáles MD Unavailable [phone] Reason for Referral * Transplant (Routine) [...] [address] [place] [address] [place], [place] [address] Phone: tel: fax: Referral ID Status Reason Start Date Expiration Date Visits Requested Visits Authorized [id number] Authorized Specialty Services Required 02/26/[phone] Encounter Details Date Type Department Care Team (Late st Contact Info) Description 02/26/2025 [facility] [address] [place] [address] Isabella Saucedo APRN [address] [place] [address] [place] [address] Invasion of liver, gallbladder, pancreas, ipsilateral branch [...] documented as of this encounter Care Teams Duplicating Machine Servicer Relationship Specialty Start Date End Date Pcp, No [address] [place] [address] PCP - General Family Medicine 03/20/25 Isabella Saucedo APRN [address] [place] [address] Referring Physician 02/26/25 Jeannie Mcmillan RN [facility] [address] [place] [address] Registered Nurse Transplant Surgery 03/08/25 [place] [address] Registered Nurse Transplant Surgery 03/08/25 Rodney Gonzáles MD [address] [place] [address] [address] [place] [address] Medical Oncologist 04/10/25 documented as of this encounter
--- OUTSIDE RECORDS SUMMARY | 2025-05-30 10:53 | XMS_ITS | Encounter Summary ---
Author Organization Healthcare Address [address] [place] [address] Care Team Providers Care Casing Running Machine Tender Name Role Phone Isabella Saucedo APRN Unavailable [phone] Jeannie Mcmillan RN Unavailable [phone] Ebony Shoemaker Unavailable [phone] Pcp, No Primary Care Provider Unavailabl e Rodney Gonzáles MD Unavailable [phone] Reason for Referral * Consultation (Routine) - Authorized Specialty Diagnoses / Procedures Referred By Contarjun t Referred To Contact Hematology and Oncology Diagnoses Elevated alpha fetoprotein Liver tumor Isabella Saucedo APRN [address] [place] [address] Phone: tel: fax: Referral ID Status Reason Start Date Expiration Date Visits Requested Visits Authorized [id number] Authorized Specialty Services Required 02/20/2025 08/22/2026 1 1 Encounter Details Date Type Department Care Team (Late st Contact Info) Description 02/19/2025 Community [facility] [address] [place] [address] Isabella Saucedo APRN [address] [place] [address] Elevated alpha fetoprotein (Primary Dx); Liver tumor [...] documented as of this encounter Care Teams Casing Running Machine Tender Relationship Specialty Start Date End Date Pcp, No [address] [place] [address] PCP - General Family Medicine 03/20/25 Isabella Saucedo APRN 1210 [facility] [address] [place] [address] Referring Physician 02/26/25 Jeannie Mcmillan, RN [facility] [address] [place] [address] Registered Nurse Transplant Surgery 03/08/25 [place] [address] Registered Nurse Transplant Surgery 03/08/25 Rodney Gonzáles MD 1210 [facility] [address] [place] [address] Medical Oncologist 04/10/25 documented as of this encounter
--- OUTSIDE RECORDS SUMMARY | 2025-05-30 10:53 | XMS_ITS | Clinical Summary ---
Author Organization Healthcare Address [address] [place] [address] Care Team Providers Care Entry Level Accounting Clerk Name Role Phone Berenice Saucedocheryl Darling PROCESSOR GRAIN Unavailable [phone] Jeannie Mcmillan RN Unavailable [phone] Ebony Shoemaker Unavailable [phone] Pcp, No Primary Care Provider Unavailabl e Rodney Gonzáles MD Unavailable [phone] Allergies Active Allergy Reactions Criticality Noted [...] EDT Hospital Encounter [facility] [address] [place] [address] Clotilde Saleh MD Arndt, Frederick, MD Vyasabattu, Mahender, MD Generalized abdominal pain (Primary Dx); Hepatocellular carcinoma; RUQ abdominal pain Discharge Disposition: Home or Self Care 05/01/2025 Travel 05/01/2025 Orders Only External Location [address] [place] [address] Chris Lazo MD 04/06/2025 Telephone [facility] [address] [address] Ebony Shoemaker Txp Surgical Follow-up 03/20/2025 4:39 PM EDT - 03/21/2025 6:51 PM EDT Hospital Encounter [facility] Inpatient [address] [place] [phone] Clotilde Saleh MD Santos, MD Krystina Wade Anne E, MD Epigastric pain (Primary Dx); Hepatocellular carcinoma; Alcoholic cirrhosis of liver without ascites (CMS/HCC) Discharge Disposition: Home or Self Care 03/20/2025 Travel 03/20/2025 Orders Only External Location [address] [place] [address] Provider, External 03/20/2025 Orders Only External Location [address] [place] [address] Provider, External 03/20/2025 Orders Only External Location [address] [place] [address] Provider, External 03/16/2025 Telephone [facility] [place] [address] [address] Ebony Shoemaker Txp Surgical Follow-up (Ernestina: Tumor Board Discussion 03/16/25) 03/14/2025 11:20 AM EDT - 03/14/2025 11:59 PM EDT Hospital Encounter [facility] [address] [place] [address] Elevated AFP; Liver lesion; Hepatic cirrhosis, unspecified hepatic cirrhosis type, unspecified whether ascites present (CMS/HCC) Discharge Disposition: Home or Self Care 03/14/2025 10:00 AM EDT Office Visit [facility] [place] [address] [address] Peter Do MD HCC (hepatocellular carcinoma) (Primary Dx) 03/14/2025 Orders Only [facility] [place] [address] [place] [address] Ebony Shoemaker Liver lesion (Primary Dx); Elevated AFP; Hepatic cirrhosis, unspecified hepatic cirrhosis type, unspecified whether ascites present (CMS/HCC) 03/14/2025 Travel 03/10/2025 Travel 03/07/2025 Travel 03/06/2025 Telephone [facility] [place] [address] [phone] Cici Ramírez Manisha 03/06/2025 Telephone [facility] [address] [place] [address] Angelita Reeves Appointment 03/05/2025 Telephone [facility] [address] [place] [address] Angelita Reeves Appointment from Last 3 Months Social History Tobacco [...] time in the past [address] [facility], were you homeless or living in a correction (including now)? No 05/02/2025 [facility] Utilities Answer Date Recorded In the past 12 months has [place], gas, oil, or water company threatened to [...] Last Done Comments [facility]-/Child/Adol SDOH Screenings 1960 [id number] Vaccine (#1) 1963 [facility]-Hepatitis A Vaccines (1 [...] (PLPEth) <10 ng/mL 05/06/2025 12:20 PM EDT [facility] PEth 16:0/18:1 (POPEth) <10 ng/mL 05/06/2025 12:20 PM EDT [facility] EER Peth See Note 05/06/2025 12:20 PM EDT [facility] PEth Interpretation See Comment 05/06/2025 12:20 PM EDT [facility] Blood Venous blood specimen / Unknown Venipuncture / Unknown 05/04/2025 4:33 AM EDT 05/04/2025 4:42 AM EDT Narrative [facility] - 05/06/2025 12:20 PM EDT PEth 16:0/18:1 [...] if you don't have a Connect account. [email or web address] Phosphatidylethanol (PEth) is a group of phospholipids [...] developed and its performance characteristics determined by [facility]. It has not been cleared or approved by the U.S. Food and Drug Administration. This test was performed in a CLIA-certified laboratory and is intended for clinical purposes. Performed By: [facility] [address] [place] [address] [employer]fuels Operations Manager: David Marx MD, PhD CLIA Number: [id number] us Ang Will MD LAB REF LAB BLOOD AND FLU ID ORD Final Result [facility] ([facility]) [address] [place] [address] * (ABNORMAL) Creatine Kinase, Total, Plasma (05/04/2025 4:33 AM EDT) Pathologist [facility] Creatine Kinase, Plasma 33(L) 49 - 320 U/L 05/04/2025 5:27 AM EDT [facility] Blood Venous blood specimen / Unknown Venipuncture / Unknown 05/04/2025 4:33 AM EDT 05/04/2025 4:44 AM EDT Ang Will MD LAB BLOOD ORDERABLES Courtney l Result Performing Organization Address City/[facility]/ZIP Co de Phone Number [facility] [address] [place] [address] * (ABNORMAL) CBC W/O Differential (05/04/2025 4:33 AM EDT) Only the most recent of3 resultswithin the time period is included. [facility] WBC Count 4.71 3.70 - 10.30 10*3/uL LAB HEMATOLOGY METHOD 05/04/2025 5:18 AM EDT [facility] RBC Count 4.16(L) 4.60 - 6.10 10*6/uL LAB HEMATOLOGY METHOD 05/04/2025 5:18 AM EDT [facility] HGB 13.1(L) 13.7 - 17.5 g/dL LAB HEMATOLOGY METHOD 05/04/2025 5:18 AM EDT [facility] HCT 38.4(L) 40.0 - 51.0 % LAB HEMATOLOGY METHOD 05/04/2025 5:18 AM EDT [facility] Platelet Count 117(L) 155 - 369 10*3/uL LAB HEMATOLOGY METHOD 05/04/2025 5:18 AM EDT [facility] MCV 92 79 - 98 fL LAB HEMATOLOGY METHOD 05/04/2025 5:18 AM EDT [facility] MCH 31.5 26.0 - 32.0 pg LAB HEMATOLOGY METHOD 05/04/2025 5:18 AM EDT [facility] MCHC 34.1 30.7 - 35.5 g/dL LAB HEMATOLOGY METHOD 05/04/2025 5:18 AM EDT [facility] RDW 15.5(H) 11.5 - 14.5 % LAB HEMATOLOGY METHOD 05/04/2025 5:18 AM EDT [facility] MPV 11.5 8.8 - 12.5 fL LAB HEMATOLOGY METHOD 05/04/2025 5:18 AM EDT [facility] nRBC 0.0 <=0.0 per 100 WBCs LAB HEMATOLOGY METHOD 05/04/2025 5:18 AM EDT [facility] Blood Venous blood specimen / Unknown Venipuncture / Unknown 05/04/2025 4:33 AM EDT 05/04/2025 4:45 AM EDT Ang Will MD LAB BLOOD ORDERABLES Courtney ferrari Result [facility] [address] [place] [address] * (ABNORMAL) Comprehensive metabolic panel (05/04/2025 4:33 AM EDT) Only the most recent of7 resultswithin the time period is included. Glucose, Plasma 92 74 - 99 mg/dL 05/04/2025 5:27 AM EDT [facility] BUN, Plasma 11 8 - 23 mg/dL 05/04/2025 5:27 AM EDT [facility] Creatinine, Plasma 0.81 0.70 - 1.20 mg/dL 05/04/2025 5:27 AM EDT [facility] BUN/Creatinine Ratio 14 05/04/2025 5:27 AM EDT [facility] Sodium, Plasma 138 136 - 145 mmol/L 05/04/2025 5:27 AM EDT [facility] Potassium, Plasma 3.3(L) 3.6 - 4.9 mmol/L 05/04/2025 5:27 AM EDT [facility] Chloride, Plasma 106 97 - 107 mmol/L 05/04/2025 5:27 AM EDT [facility] CO2, Plasma 20(L) 22 - 29 mmol/L 05/04/2025 5:27 AM EDT [facility] Anion Gap 12 6 - 16 mmol/L 05/04/2025 5:27 AM EDT [facility] Total Calcium, Plasma 8.5(L) 8.9 - 10.2 mg/dL 05/04/2025 5:27 AM EDT [facility] Total Protein 6.4 6.3 - 7.9 g/dL 05/04/2025 5:27 AM EDT [facility] Albumin, Plasma 2.6(L) 3.5 - 5.2 g/dL 05/04/2025 5:27 AM EDT [facility] AST, Plasma 140(H) 10 - 50 U/L 05/04/2025 5:27 AM EDT [facility] ALT, Plasma 21 10 - 50 U/L 05/04/2025 5:27 AM EDT [facility] Alkaline Phosphatase, Plasma 186(H) 40 - 115 U/L 05/04/2025 5:27 AM EDT [facility] Total Bilirubin, Plasma 2.1(H) 0.2 - 1.1 mg/dL 05/04/2025 5:27 AM EDT [facility] eGFRcr 96.6 mL/min/1.7 3m*2 05/04/2025 5:27 AM EDT [facility] Comment:Reported eGFRcr in m L/min/1.73m2 is based the CKD-EPI 2020 equation that does not use a race coefficient. Blood Venous blood specimen / Unknown Venipuncture / Unknown 05/04/2025 4:33 AM EDT 05/04/2025 4:44 AM EDT us Ang Will MD LAB BLOOD ORDERABLES Courtney ferrari Result [facility] [address] [place] [address] * (ABNORMAL) Bilirubin, direct (05/02/2025 1:42 PM EDT) Only the most recent of2 resultswithin the time period is included. Direct Bilirubin, Plasma 0.7(H) <=0.3 mg/dL 05/02/2025 2:51 PM EDT [facility] Blood Venous blood specimen / Unknown Venipuncture / Unknown 05/02/2025 1:42 PM EDT 05/02/2025 2:10 PM EDT Ang Will MD LAB BLOOD ORDERABLES Courtney l Result Performing Organization Address City/[facility] Co de Phone Number [facility] [address] [place] [address] * (ABNORMAL) Lactate, venous (05/02/2025 2:07 AM EDT) Only the most recent of3 resultswithin the time period is included. Lactate, Venous, Whole Blood 3.0(H) 0.5 - 2.2 mmol/L LAB HEMATOLOGY METHOD 05/02/2025 2:21 AM EDT [facility] Blood Venous blood specimen / Unknown Venipuncture / Unknown 05/02/2025 2:07 AM EDT 05/02/2025 2:19 AM EDT Lexi Crane APRN LAB BLOOD ORDERABLES Final Re sult Performing Organization Address [facility] Co de Phone Number [facility] [address] [place] [address] * (ABNORMAL) Prothrombin Time/INR (05/02/2025 2:07 AM EDT) Only the most recent of5 resultswithin the time period is included. Prothrombin Time 14.5(H) 12.0 - 14.3 sec LAB COAGULATION METHOD 05/02/2025 2:44 AM EDT [facility] INR 1.1 0.9 - 1.1 LAB COAGULATION METHOD 05/02/2025 2:44 AM EDT [facility] Blood Venous blood specimen / Unknown Venipuncture / Unknown 05/02/2025 2:07 AM EDT 05/02/2025 2:20 AM EDT Narrative [facility] - 05/02/2025 2:44 AM [...] APRN LAB BLOOD ORDERABLES Final Re sult [facility] [address] [place] [address] * (ABNORMAL) CBC and differential (05/02/2025 2:07 AM EDT) Only the most recent of4 resultswithin the time period is included. WBC Count 6.14 3.70 - 10.30 10*3/uL LAB HEMATOLOGY METHOD 05/02/2025 2:31 AM EDT [facility] RBC Count 4.15(L) 4.60 - 6.10 10*6/uL LAB HEMATOLOGY METHOD 05/02/2025 2:31 AM EDT [facility] HGB 13.3(L) 13.7 - 17.5 g/dL LAB HEMATOLOGY METHOD 05/02/2025 2:31 AM EDT [facility] HCT 39.3(L) 40.0 - 51.0 % LAB HEMATOLOGY METHOD 05/02/2025 2:31 AM EDT [facility] Platelet Count 126(L) 155 - 369 10*3/uL LAB HEMATOLOGY METHOD 05/02/2025 2:31 AM EDT [facility] MCV 95 79 - 98 fL LAB HEMATOLOGY METHOD 05/02/2025 2:31 AM EDT [facility] MCH 32.0 26.0 - 32.0 pg LAB HEMATOLOGY METHOD 05/02/2025 2:31 AM EDT [facility] MCHC 33.8 30.7 - 35.5 g/dL LAB HEMATOLOGY METHOD 05/02/2025 2:31 AM EDT [facility] RDW 15.1(H) 11.5 - 14.5 % LAB HEMATOLOGY METHOD 05/02/2025 2:31 AM EDT [facility] MPV 11.9 8.8 - 12.5 fL LAB HEMATOLOGY METHOD 05/02/2025 2:31 AM EDT [facility] nRBC 0.0 <=0.0 per 100 WBCs LAB HEMATOLOGY METHOD 05/02/2025 2:31 AM EDT [facility] Differential Type Automated LAB HEMATOLOGY METHOD 05/02/2025 2:31 AM EDT [facility] Neutrophils % 65 % LAB HEMATOLOGY METHOD 05/02/2025 2:31 AM EDT [facility] Lymphocytes % 20 % LAB HEMATOLOGY METHOD 05/02/2025 2:31 AM EDT [facility] Monocytes % 13 % LAB HEMATOLOGY METHOD 05/02/2025 2:31 AM EDT [facility] Eosinophils % 1 % LAB HEMATOLOGY METHOD 05/02/2025 2:31 AM EDT [facility] Basophils % 0 % LAB HEMATOLOGY METHOD 05/02/2025 2:31 AM EDT [facility] Immature Granulocytes % 1 % LAB HEMATOLOGY METHOD 05/02/2025 2:31 AM EDT [facility] Neutrophils Absolute 4.00 1.60 - 6.10 10*3/uL LAB HEMATOLOGY METHOD 05/02/2025 2:31 AM EDT [facility] Lymphocytes Absolute 1.22 1.20 - 3.90 10*3/uL LAB HEMATOLOGY METHOD 05/02/2025 2:31 AM EDT [facility] Monocytes Absolute 0.79 0.30 - 0.90 10*3/uL LAB HEMATOLOGY METHOD 05/02/2025 2:31 AM EDT [facility] Eosinophils Absolute 0.07 0.00 - 0.50 10*3/uL LAB HEMATOLOGY METHOD 05/02/2025 2:31 AM EDT [facility] Basophils Absolute 0.02 0.00 - 0.10 10*3/uL LAB HEMATOLOGY METHOD 05/02/2025 2:31 AM EDT [facility] Immature Granulocytes Absolute 0.04 0.00 - 0.06 10*3/uL LAB HEMATOLOGY METHOD 05/02/2025 2:31 AM EDT [facility] Blood Venous blood specimen / Unknown Venipuncture / Unknown 05/02/2025 2:07 AM EDT 05/02/2025 2:20 AM EDT Narrative [facility] - 05/02/2025 2:31 AM EDT Therapeutic decision making should be based on absolute values, rather than percentages. us Lexi Crane PROCESSOR GRAIN LAB BLOOD ORDERABLES Final Re sult [facility] [address] [place] [address] * US Abdomen RUQ (05/01/2025 7:43 PM [...] on 05/01/2025 8:43 PM Clotilde Saleh MD IM US PROCEDURES Final Result * Type and [...] TEST ORDERABLES Final Result BLOOD BANK [address] [place] [address], * Magnesium (05/01/2025 5:54 PM EDT) Magnesium, Plasma 1.9 1.9 - 2.4 mg/dL 05/01/2025 6:22 PM EDT [facility] Blood Venous blood specimen / Unknown Venipuncture / Unknown 05/01/2025 5:54 PM EDT 05/01/2025 5:58 PM EDT us Clotilde Saleh MD LAB BLOOD ORDERABLES Final Resu lt Performing Organization Address [facility] Co de Phone Number [facility] [address] [place] [address] * (ABNORMAL) Lipase (05/01/2025 5:54 PM EDT) Only the most recent of2 resultswithin the time period is included. Pathologist [facility] Lipase, Plasma 11(L) 19 - 63 U/L 05/01/2025 6:22 PM EDT [facility] Blood Venous blood specimen / Unknown Venipuncture / Unknown 05/01/2025 5:54 PM EDT 05/01/2025 5:58 PM EDT us Clotilde Saleh MD LAB BLOOD ORDERABLES Final Resu lt Performing Organization Address [facility] Phone Number [facility] [address] [place] [address] * EKG now - STAT (adult) (05/01/2025 5:43 PM EDT) Only the most recent of2 resultswithin the time period is included. [facility] EKG DIAGNOSIS CLASS Abnormal MUSE ECG Ventricular Rate 70 BPM MUSE ECG Atrial Rate 70 BPM MUSE ECG MD Interval 138 ms MUSE ECG QRSD Interval 86 ms MUSE ECG QT Interval 414 ms MUSE ECG QTC Interval 447 ms MUSE ECG P Stevens 50 degrees MUSE ECG R Stevens -53 degrees MUSE ECG T Wave Stevens 43 degrees MUSE ECG Diagnosis Normal sinus [...] 10 <19 ng/L 03/20/2025 11:31 PM EDT [facility] Blood Venous blood specimen / Unknown Venipuncture / Unknown 03/20/2025 10:54 PM EDT 03/20/2025 11:04 PM EDT Leelee Tripathi MD LAB BLOOD ORDERABLE S Final Result [facility] [address] [place] [address] * ED HIV 1/2 Antibody/Antigen Screen w/Reflex to HIV 1/2 Differentiation (03/20/2025 6:51 PM EDT) Pathologist [facility] HIV 1 & 2 Antibody/Antigen Screen Non Reactive Non Reactive 03/20/2025 8:05 PM EDT [facility] Comment:Screening for HIV 1 & 2 antibodies, and P24 antigen is NONREACTIVE. No confirmatory testing is required. Blood Venous blood specimen / Unknown Venipuncture / Unknown 03/20/2025 6:51 PM EDT 03/20/2025 7:09 PM EDT Dedra HURTADO LAB BLOOD ORDERABLES Courtney l Result [facility] [address] [place] [address] * Troponin now and 120 min (03/20/2025 6:51 PM EDT) Pathologist [facility] Troponin T, High Sensitivity, 0 Hour 9 <19 ng/L 03/20/2025 7:35 PM EDT [facility] Blood Venous blood specimen / Unknown Venipuncture / Unknown 03/20/2025 6:51 PM EDT 03/20/2025 7:09 PM EDT Dedra A [employer] LAB BLOOD ORDERABLES Courtney l Result [facility] [address] [place] [address] * Hepatitis C Antibody - ED (03/20/2025 6:51 PM EDT) [facility] Hepatitis C Antibody Negative Negative 03/20/2025 8:01 PM EDT [facility] Blood Venous blood specimen / Unknown Venipuncture / Unknown 03/20/2025 6:51 PM EDT 03/20/2025 7:09 PM EDT Dedra A [employer] LAB BLOOD ORDERABLES Courtney l Result Performing Organization Address City/[facility]/ZIP Co de Phone Number [facility] [address] [place] [address] * APTT (03/20/2025 6:51 PM EDT) [facility] aPTT 31 25 - 35 sec 03/20/2025 7:25 PM EDT [facility] Blood Venous blood specimen / Unknown Venipuncture / Unknown 03/20/2025 6:51 PM EDT 03/20/2025 7:08 PM EDT Dedra A [employer] LAB BLOOD ORDERABLES Courtney l Result [facility] [address] [place] [address] * C-Reactive protein (03/20/2025 6:51 PM EDT) Pathologist [facility] CRP, Plasma 5.2 <=8.0 mg/L 03/20/2025 7:35 PM EDT [facility] Blood Venous blood specimen / Unknown Venipuncture / Unknown 03/20/2025 6:51 PM EDT 03/20/2025 7:09 PM EDT Narrative [facility] - 03/20/2025 7:35 PM EDT This CRP test is appropriate for assessment of infection, systemic inflammation and/or tissue injury. To assess cardiovascular disease risk order high sensitivity CRP (CRPH). Dedra HURTADO LAB BLOOD ORDERABLES Courtney l Result [facility] [address] [place] [address] * CT THORACIC OUTSIDE IMAGES (03/20/2025 1:13 [...] with the final edited report. Drafted by uGrvinder Pathak on 03/14/2025 12:17 PM Final report signed by Rodrigo Craven MD on 03/14/2025 1:46 PM us Peter Do MD IMG CT PROCEDURES Final Res ult * (ABNORMAL) Alpha Fetoprotein, Serum (03/14/2025 8:38 AM EDT) Alpha Fetoprotein, Serum 1,098.0(H) <10.0 ng/mL 03/14/2025 10:22 AM EDT [facility] Blood Venous blood specimen / Unknown Venipuncture / Unknown 03/14/2025 8:38 AM EDT 03/14/2025 9:03 AM EDT [facility] - 03/14/2025 10:22 AM EDT Performed by Ricky electrochemiluminescent immunoassay which is traceable to the [address] [place] [address] IRP WHO Reference standard 72/255. Results obtained with different test methods or kits cannot be used interchangeably. Peter Do MD LAB BLOOD [place] [address] * Cancer Antigen, GI (CA 19.9) (03/14/2025 8:38 AM EDT) CA 19.9 26.5 <36 U/mL 03/14/2025 10:22 AM EDT [facility] Blood Venous blood specimen / Unknown Venipuncture / Unknown 03/14/2025 8:38 AM EDT 03/14/2025 9:03 AM EDT [facility] - 03/14/2025 10:22 AM EDT Performed by Ricky electrochemiluminescent immunoassay. Results obtained with different test methods or kits cannot be used interchangeably. Peter Do MD LAB BLOOD ORDERABLES Final Result Performing Organization Address City/[facility]/[place] [address] * (ABNORMAL) CEA, Serum (03/14/2025 8:38 AM EDT) CEA, Serum 5.2(H) <4.0 ng/mL 03/14/2025 10:22 AM EDT [facility] Blood Venous blood specimen / Unknown Venipuncture / Unknown 03/14/2025 8:38 AM EDT 03/14/2025 9:03 AM EDT Narrative [facility] - 03/14/2025 10:22 AM EDT Normal range for smokers: < 5.5 ng/ml Normal range for non-smokers: <=4.0 ng/ml Performed by Ricky electrochemiluminescent immunoassay. Results obtained with different test methods or kits cannot be used interchangeably. Peter Do MD LAB BLOOD ORDERABLES Final Result [facility] [address] [place] [address] from Last 3 Months Insurance [place]ICA[place] MEDICARE [...] updated to appropriate status: Yes Care Teams Entry Level Accounting Clerk Relationship Specialty Start Date End Date Pcp, No [address] [place] [id number] PCP - General Family Medicine 03/20/25 Isabella Saucedo APRN 12[address] [facility] [address] [place] [address] Referring Physician 02/26/25 Jeannie Mcmillan, RN [facility] [address] [place] [address] Registered Nurse Transplant Surgery 03/08/25 [place] [address] Registered Nurse Transplant Surgery 03/08/25 Rodney Gonzáles MD 1210 [facility] [address] [place] [address] Medical Oncologist 04/10/25
--- OUTSIDE RECORDS SUMMARY | 2025-05-30 10:53 | XMS_ITS | Encounter Summary ---
Author Organization Healthcare Address [address] [place] [address] Care Team Providers Care Ct Scan Technician Name Role Phone Isabella Saucedo Phong FLIGHT TOWER DISPATCHER Unavailable [phone] Jeannie Mcmillan RN Unavailable [phone] Ebony Shoemaker Unavailable [phone] Pcp, No Primary Care Provider Unavailabl e Rodney Gonzáles MD Unavailable [phone] Encounter Details Date Type Department Care Team (Late st Contact Info) Description 05/01/2025 Orders Only External Location 800 [place] [id number] Chris Lazo MD [address] [address] Social History Tobacco Use Types [...] in the past 12 m [facility], were you homeless or living in a long term (including now)? No 05/02/2025 [facility] Utilities Answer Date Recorded In the [...] documented as of this encounter Care Teams Ct Scan Technician Relationship Specialty Start Date End Date Pcp, No [address] [place] [address] PCP - General Family Medicine 03/20/25 Isabella Saucedo APRN [address] [place] [address] [address] [place] [address] Referring Physician 02/26/25 Jeannie Mcmillan, NIURKA [facility] [facility]RATION 800 [place] [address] Registered Nurse Transplant Surgery 03/08/25 [place] [address] Registered Nurse Transplant Surgery 03/08/25 Rodney Gonzáles MD 1210 [facility] [address] [place] [address] Medical Oncologist 04/10/25 documented as of this encounter
--- OUTSIDE RECORDS SUMMARY | 2025-05-30 10:54 | XMS_ITS | Encounter Summary ---
Author Organization Healthcare Address [address] [place] [address] Care Team Providers Care Associate Professor Of Library Media Name Role Phone Isabella Saucedo Phong PRESALES SENIOR SPECIALIST Unavailable [phone] Jeannie Mcmillan RN Unavailable [phone] Ebony Shoemaker Unavailable [phone] Pcp, No Primary Care Provider Unavailabl e Rodney Gonzáles MD Unavailable [phone] Encounter Details Date Type Department Care Team (Late st Contact Info) Description 12/07/2024 Orders Only External Location 800 [place] [address] Provider, External Social History Tobacco Use Types [...] as of this encounter Care Teams Associate Professor Of Library Media Relationship Specialty Start Date End Date Pcp, [place] [address] PCP - General Family Medicine 03/20/25 Isabella Saucedo APRN 1210 [facility] [address] [place] [address] Referring Physician 02/26/25 Jeannie Mcmillan, RN [facility]ATION 800 [place] [address] Registered Nurse Transplant Surgery 03/08/25 Ebony Shoemaker [place] [id number] Registered Nurse Transplant Surgery 03/08/25 Rodney Gonzáles MD 1210 [facility] [address] [place] [address] Medical Oncologist 04/10/25 documented as of this encounter
--- OUTSIDE RECORDS SUMMARY | 2025-05-30 10:54 | XMS_ITS | Encounter Summary ---
Author Organization Healthcare Address [address] [place] [address] Care Team Providers Care Revenue Specialist Name Role Phone Isabella Saucedo Phong EXHIBITOR SALES Unavailable [phone] Jeannie Mcmillan RN Unavailable [phone] Ebony Shoemaker Unavailable [phone] Pcp, No Primary Care Provider Unavailabl e Rodney Gonzáles MD Unavailable [phone] Encounter Details Date Type Department Care Team (Late st Contact Info) Description 12/06/2024 Orders Only External Location 800 [place] [address] Provider, External Social History Tobacco Use Types [...] documented as of this encounter Care Teams Revenue Specialist Relationship Specialty Start Date End Date Pcp, No [address] [place] [address] PCP - General Family Medicine 03/20/25 Isabella Saucedo APRN 1210 [facility] [address] [place] [address] Referring Physician 02/26/25 Jeannie Mcmillan, RN [facility]ATION 800 [place] [address] Registered Nurse Transplant Surgery 03/08/25 Ebony Shoemaker [place] [id number] Registered Nurse Transplant Surgery 03/08/25 Rodney Gonzáles MD 1210 [facility] [address] [place] [address] Medical Oncologist 04/10/25 documented as of this encounter
--- OUTSIDE RECORDS SUMMARY | 2025-05-30 10:54 | XMS_ITS | Encounter Summary ---
Author Organization Healthcare Address [address] [place] [address] Care Team Providers Care Strategies Analyst Name Role Phone Isabella Saucedo Phong CLOTH DYER Unavailable [phone] Jeannie Mcmillan RN Unavailable [phone] Ebony Shoemaker Unavailable [phone] Pcp, No Primary Care Provider Unavailabl e Rodney Gonzáles MD Unavailable [phone] Encounter Details Date Type Department Care Team (Late st Contact Info) Description 05/26/2022 Orders Only External Location 800 [place] [address] Provider, External Social History Tobacco Use Types [...] documented as of this encounter Care Teams Strategies Analyst Relationship Specialty Start Date End Date Pcp, [place] [address] PCP - General Family Medicine 03/20/25 Isabella Saucedo APRN 1210 [facility] [address] [place] [address] Referring Physician 02/26/25 Jeannie Mcmillan, RN [facility]MIN[employer]RATION 800 [place] [address] Registered Nurse Transplant Surgery 03/08/25 Ebony Shoemaker [place] [id number] Registered Nurse Transplant Surgery 03/08/25 Rodney Gonzáles MD 1210 [facility] [address] [place] [address] Medical Oncologist 04/10/25 documented as of this encounter
--- OUTSIDE RECORDS SUMMARY | 2025-05-30 10:54 | XMS_ITS | Encounter Summary ---
Author Organization Healthcare Address [address] [place] [address] Care Team Providers Care Clerk Checker Name Role Phone Isabella Saucedo Phong PROJECT MANAGEMENT MANAGER Unavailable [phone] Jeannie Mcmillan RN Unavailable [phone] Ebony Shoemaker Unavailable [phone] Pcp, No Primary Care Provider Unavailabl e Rodney Gonzáles MD Unavailable [phone] Encounter Details Date Type Department Care Team (Late st Contact Info) Description 12/06/2024 Orders Only External Location 800 [place] [address] Provider, External Social History Tobacco Use Types [...] documented as of this encounter Care Teams Clerk Checker Relationship Specialty Start Date End Date Pcp, No [address] [place] [address] PCP - General Family Medicine 03/20/25 Isabella Saucedo APRN 1210 [facility] [address] [place] [address] Referring Physician 02/26/25 Jeannie Mcmillan, RN [facility] ADMINISTRATION 800 [place] [address] Registered Nurse Transplant Surgery 03/08/25 Ebony Shoemaker [place] [id number] Registered Nurse Transplant Surgery 03/08/25 Rodney Gonzáles MD 1210 [facility] [address] [place] [address] Medical Oncologist 04/10/25 documented as of this encounter
--- OUTSIDE RECORDS SUMMARY | 2025-05-30 10:54 | XMS_ITS | Encounter Summary ---
Author Organization Healthcare Address [address] [place] [address] Care Team Providers Care Air Conditioner Installer Helper Name Role Phone Isabella Saucedo Phong COAL SHOVELER Unavailable [phone] Jeannie Mcmillan RN Unavailable Ebony Shoemaker Unavailable [phone] Pcp, No Primary Care Provider Unavailabl e Rodney Gonzáles MD Unavailable [phone] Encounter Details Date Type Department Care Team (Late st Contact Info) Description 12/06/2024 Orders Only External Location 800 [place] [address] Provider, External Social History Tobacco Use Types [...] as of this encounter Care Teams Air Conditioner Installer Helper Relationship Specialty Start Date End Date Pcp, No [address] [place] [address] PCP - General Family Medicine 03/20/25 Isabella Saucedo APRN 1210 [facility] [address] [place] [address] Referring Physician 02/26/25 Jeannie Mcmillan, RN [facility] ADMINISTRATION 800 [place] [address] Registered Nurse Transplant Surgery 03/08/25 Ebony Shoemaker [place] [id number] Registered Nurse Transplant Surgery 03/08/25 Rodney Gonzáles MD 1210 [facility] [address] [place] [address] Medical Oncologist 04/10/25 documented as of this encounter
--- OUTSIDE RECORDS SUMMARY | 2025-05-30 10:54 | XMS_ITS | Encounter Summary ---
Author Organization Healthcare Address [address] [place] [address] Care Team Providers Care Globe Tester Name Role Phone Isabella Saucedo Phong TROUBLE SHOOTER Unavailable [phone] Jeannie Mcmillan RN Unavailable [phone] Ebony Shoemaker Unavailable [phone] Pcp, No Primary Care Provider Unavailabl e Rodney Gonzáles MD Unavailable [phone] Encounter Details Date Type Department Care Team (Late st Contact Info) Description 12/06/2024 Orders Only External Location 800 [place] [address] Provider, External Social History Tobacco Use Types [...] as of this encounter Care Teams Globe Tester Relationship Specialty Start Date End Date Pcp, No [address] [place] [address] PCP - General Family Medicine 03/20/25 Isabella Saucedo APRN 1210 [facility] [address] [place] [address] Referring Physician 02/26/25 Jeannie Mcmillan, RN [facility] ADMINISTRATION 800 [place] [address] Registered Nurse Transplant Surgery 03/08/25 Ebony Shoemaker [place] [phone] Registered Nurse Transplant Surgery 03/08/25 Rodney Gonzáles MD 1210 [facility] [address] [place] [address] Medical Oncologist 04/10/25 documented as of this encounter
--- OUTSIDE RECORDS SUMMARY | 2025-05-30 10:54 | XMS_ITS | Encounter Summary ---
Author Organization Healthcare Address [address] [place] [address] Care Team Providers Care Production Proofreader Name Role Phone Isabella Saucedo Phong FINANCIAL REP Unavailable [phone] Jeannie Mcmillan RN Unavailable [phone] Ebony Shoemaker Unavailable [phone] Pcp, No Primary Care Provider Unavailabl e Rodney Gonzáles MD Unavailable [phone] Encounter Details Date Type Department Care Team (Late st Contact Info) Description 12/06/2024 Orders Only External Location 800 [place] [address] Provider, External Social History Tobacco Use Types [...] as of this encounter Care Teams Production Proofreader Relationship Specialty Start Date End Date Pcp, No [address] [place] [address] PCP - General Family Medicine 03/20/25 Isabella Saucedo APRN 1210 [facility] [address] [place] [address] Referring Physician 02/26/25 Jeannie Mcmillan, RN [facility]PL[employer] ADMINISTRATION 800 [place] [address] Registered Nurse Transplant Surgery 03/08/25 Ebony Shoemaker [place] [id number] Registered Nurse Transplant Surgery 03/08/25 Rodney Gonzáles MD 1210 [facility] [address] [place] [address] Medical Oncologist 04/10/25 documented as of this encounter
--- OUTSIDE RECORDS SUMMARY | 2025-05-30 10:54 | XMS_ITS | Encounter Summary ---
Author Organization Healthcare Address [address] [place] [address] Care Team Providers Care Core Sticker Name Role Phone Isabella Saucedo Phong TRASH COLLECTOR TRUCK DRIVER Unavailable [phone] Jeannie Mcmillan RN Unavailable [phone] Ebony Shoemaker Unavailable [phone] Pcp, No Primary Care Provider Unavailabl e Rodney Gonzáles MD Unavailable [phone] Encounter Details Date Type Department Care Team (Late st Contact Info) Description 12/06/2024 Orders Only External Location 800 [place] [address] Provider, External Social History Tobacco Use Types [...] documented as of this encounter Care Teams Core Sticker Relationship Specialty Start Date End Date Pcp, No [address] [place] [address] PCP - General Family Medicine 03/20/25 Isabella Saucedo APRN 1210 [facility] [address] [place] [address] Referring Physician 02/26/25 Jeannie Mcmillan, RN [facility]TRANSPL[employer] ADMINISTRATION 800 [place] [address] Registered Nurse Transplant Surgery 03/08/25 Ebony Shoemaker [place] [phone] Registered Nurse Transplant Surgery 03/08/25 Rodney Gonzáles MD 1210 [facility] [address] [place] [address] Medical Oncologist 04/10/25 documented as of this encounter
--- OUTSIDE RECORDS SUMMARY | 2025-05-30 10:54 | XMS_ITS | Encounter Summary ---
Author Organization Healthcare Address [address] [place] [address] Care Team Providers Care Traffic Warehouse Supervisor Name Role Phone Isabella Saucedo Phong TECHNOLOGY ADVISOR Unavailable [phone] Jeannie Mcmillan RN Unavailable [phone] Ebony Shoemaker Unavailable [phone] Pcp, No Primary Care Provider Unavailabl e Rodney Gonzáles MD Unavailable [phone] Encounter Details Date Type Department Care Team (Late st Contact Info) Description 06/03/2022 Orders Only External Location 800 [place] [address] Provider, External Social History Tobacco Use Types [...] documented as of this encounter Care Teams Traffic Warehouse Supervisor Relationship Specialty Start Date End Date Pcp, No 800 [place] [id number] PCP - General Family Medicine 03/20/25 Isabella Saucedo APRN [address] [facility] [address] [place] [address] Referring Physician 02/26/25 Jeannie Mcmillan, RN [facility]TRANSPLANT ADMINISTRATION 800 [place] [address] Registered Nurse Transplant Surgery 03/08/25 [place] [address] Registered Nurse Transplant Surgery 03/08/25 Rodney Gonzáles MD 1210 [facility] [address] [place] [address] Medical Oncologist 04/10/25 documented as of this encounter
--- OUTSIDE RECORDS SUMMARY | 2025-05-30 10:54 | XMS_ITS | Encounter Summary ---
Author Organization Healthcare Address [address] [place] [address] Care Team Providers Care Assistant Account Executive Name Role Phone Isabella Saucedo Phong MANAGER MILITARY Unavailable [phone] Jeannie Mcmillan RN Unavailable [phone] Ebony Shoemaker Unavailable [phone] Pcp, No Primary Care Provider Unavailabl e Rodney Gonzáles MD Unavailable [phone] Encounter Details Date Type Department Care Team (Late st Contact Info) Description 12/06/2024 Orders Only External Location 800 [place] [address] Provider, External Social History Tobacco Use Types [...] as of this encounter Care Teams Assistant Account Executive Relationship Specialty Start Date End Date Pcp, No [address] [place] [address] PCP - General Family Medicine 03/20/25 Isabella Saucedo APRN 1210 [facility] [address] [place] [address] Referring Physician 02/26/25 Jeannie Mcmillan, RN CH-TRANSPLANT ADMINISTRATION 800 [place] [address] Registered Nurse Transplant Surgery 03/08/25 Ebony Shoemaker [place] [phone] Registered Nurse Transplant Surgery 03/08/25 Rodney Gonzáles MD 1210 [facility] [address] [place] [address] Medical Oncologist 04/10/25 documented as of this encounter
--- OUTSIDE RECORDS SUMMARY | 2025-05-30 10:54 | XMS_ITS | Encounter Summary ---
Author Organization Healthcare Address [address] [place] [address] Care Team Providers Care Optical Glass Inspector Name Role Phone Isabella Saucedo Phong BURR FILER Unavailable [phone] Jeannie Mcmillan RN Unavailable [phone] Ebony Shoemaker Unavailable [phone] Pcp, No Primary Care Provider Unavailabl e Rodney Gonzáles MD Unavailable [phone] Encounter Details Date Type Department Care Team (Late st Contact Info) Description 05/26/2022 Orders Only External Location 800 [place] [address] Provider, External Social History Tobacco Use Types [...] documented as of this encounter Care Teams Optical Glass Inspector Relationship Specialty Start Date End Date Pcp, No [address] [place] [address] PCP - General Family Medicine 03/20/25 Isabella Saucedo APRN 1210 [facility] [address] [place] [address] Referring Physician 02/26/25 Jeannie Mcmillan, RN CH-TRANSPLANT ADMINISTRATION 800 [place] [address] Registered Nurse Transplant Surgery 03/08/25 Ebony Shoemaker [place] [id number] Registered Nurse Transplant Surgery 03/08/25 Rodney Gonzáles MD 1210 [facility] [address] [place] [address] Medical Oncologist 04/10/25 documented as of this encounter
--- OUTSIDE RECORDS SUMMARY | 2025-05-30 10:54 | XMS_ITS | Encounter Summary ---
Author Organization Healthcare Address [address] [place] [address] Care Team Providers Care Insurance Claims Representative Name Role Phone Isabella Saucedo Phong BRUSH POLISHER Unavailable [phone] Jeannie Mcmillan RN Unavailable [phone] Ebony Shoemaker Unavailable [phone] Pcp, No Primary Care Provider Unavailabl e Rodney Gonzáles MD Unavailable [phone] Encounter Details Date Type Department Care Team (Late st Contact Info) Description 12/06/2024 Orders Only External Location 800 [place] [address] Provider, External Social History Tobacco Use Types [...] documented as of this encounter Care Teams Insurance Claims Representative Relationship Specialty Start Date End Date Pcp, No [address] [place] [address] PCP - General Family Medicine 03/20/25 Isabella Saucedo APRN 1210 [facility] [address] [place] [address] Referring Physician 02/26/25 Jeannie Mcmillan, RN CH-TRANSPLANT ADMINISTRATION 800 [place] [address] Registered Nurse Transplant Surgery 03/08/25 Ebony Shoemaekr [place] [id number] Registered Nurse Transplant Surgery 03/08/25 Rondey Gonzáles MD 1210 [facility] [address] [place] [address] Medical Oncologist 04/10/25 documented as of this encounter
--- OUTSIDE RECORDS SUMMARY | 2025-05-30 10:54 | XMS_ITS | Encounter Summary ---
Author Organization Healthcare Address [address] [place] [address] Care Team Providers Care Winding Lathe Operator Name Role Phone Isabella Saucedo Phong CRIMINAL RESEARCH SPECIALIST Unavailable [phone] Jeannie Mcmillan RN Unavailable [phone] Ebony Shoemaker Unavailable [phone] Pcp, No Primary Care Provider Unavailabl e Rodney Gonzáles MD Unavailable [phone] Encounter Details Date Type Department Care Team (Late st Contact Info) Description 12/06/2024 Orders Only External Location 800 [place] [address] Provider, External Social History Tobacco Use Types [...] documented as of this encounter Care Teams Winding Lathe Operator Relationship Specialty Start Date End Date Pcp, No [address] [place] [address] PCP - General Family Medicine 03/20/25 Isabella Saucedo APRN 1210 [facility] [address] [place] [address] Referring Physician 02/26/25 Jeannie Mcmillan, RN CH-TRANSPLANT ADMINISTRATION 800 [place] [address] Registered Nurse Transplant Surgery 03/08/25 Ebony Shoemaker [place] [phone] Registered Nurse Transplant Surgery 03/08/25 Rodney Gonzáles MD 1210 [facility] [address] [place] [address] Medical Oncologist 04/10/25 documented as of this encounter
--- NOTE | 2025-05-30 11:14 | CT_ITS ---
FINAL REPORT TECHNIQUE: Pre- and postcontrast images of the abdomen were performed by computed tomography. This study was performed with techniques to keep radiation doses as low as reasonably achievable, (ALARA). Individualized dose reduction techniques using automated exposure control or adjustment of mA and/or kV according to the patient's size were employed. CLINICAL HISTORY: elevated AFP/cirrhosis liver mass protocol, at COMPARISON: 05/15/2025 FINDINGS: On the pre-infusion images, there are multiple bilateral nonobstructing kidney stones. Individual stones measure up to 6 mm in greatest dimension. There is no obstruction. There is streak artifact arising from pacemaker leads. On the post-infusion images, the liver parenchyma is heterogeneous. There is a nodular peripheral margin to the liver consistent with cirrhosis. There is a dominant mass in the right lobe of the liver measuring 9.0 x 7.7 cm. This mass was present previously and appears similar to the prior exam. On the coronal images, this mass measures up to 10.5 cm. It is consistent with the known hepatocellular carcinoma. There appears to be some satellite masses in the more superior portion of the right lobe of the liver. These satellite lesions are increased over previous. The spleen is enlarged measuring 13 cm in craniocaudal dimension. The gallbladder is distended. Gallstones are seen in the gallbladder. The pancreas and adrenals appear unremarkable. A benign-appearing cyst in the superior pole of the left kidney measures 2.4 cm. There is abnormal mucosal thickening throughout the colon. The colonic mucosal thickening is much more evident than previous. Abdominal and pelvic ascites has increased over previous. There is fluid in the right inguinal canal, which has increased over previous. IMPRESSION: Redemonstration of the dominant mass in the right lobe of the liver consistent with known hepatocellular carcinoma. Progressive satellite lesions in the superior right lobe of the liver likely related to progressive HCC. Multiple bilateral nonobstructing kidney stones. Gallstones of the gallbladder. Worsening ascites. Extensive mucosal thickening throughout the colon consistent with acute infectious or inflammatory colitis. Reviewed, Interpreted and Dictated by Raj Granda MD Transcribed by Shannon Larson Authenticated and . [facility]
[2025-05-30] MEDS: SODIUM CHLORIDE 0.9% 10ML SYR (RAD ONLY) 10 ML IV (11:34)
[2025-05-30] MEDS: IOPAMIDOL-370 (76%);100ML BOTTLE 75 ML IV (11:34)
[2025-05-30 13:44] LABS: Activated Partial Thrombo Time 24.2 seconds (22.8-30.6); INR 1.15 (0.9-1.1); Prothrombin Time 12.6 seconds (10.1-12.5)
== END 2025-05-30 23:59 | disposition home or self-care (01) ==
LOC: INF 10:21
PROVIDERS: PCP Family Medicine; Visit Provider Internal Medicine Medical Oncology
DX: C22.0 Liver cell carcinoma (principal); R77.2 Abnormality of alphafetoprotein; K74.60 Unspecified cirrhosis of liver; R79.89 Other specified abnormal findings of blood chemistry
CPT/HCPCS: 36415; 74170; 85025; 85610; 85730; Q9967

== ENCOUNTER 2025-05-31 13:05 | Emergency (ER) | payer MEDICARE, MEDICAID, SELFPAY ==
--- OUTSIDE RECORDS SUMMARY | 2016-03-04 08:15 | XMS_ITS | Encounter Summary ---
Author Organization [facility] [place] [address] Care Team Providers Care Nuclear Radiation Engineer Name Role Phone Jan Sin MD Unavailable [phone] Carlton James DO Primary Care Provide r Macario Pryor MD Unavailable Unavailabl e Encounter Details Date Type Department Care Team (Latest Contact Info) Description 03/04/2016 8:15 AM EDT Hospital Encounter [facility] [address] [facility] [place] [address] Poppy Quintero MD [address] [place], [place] [phone] Left without seen Social History Tobacco Use [...] 3:32 PM EDT Jer Sena RN * [place] Suicide Severity Rating Scale (Q shift for [...] documented as of this encounter Care Teams Nuclear Radiation Engineer Relationship Specialty Start Date End Date Carlton James DO [address] [place] [address] PCP - General Family Medicine 05/01/15 11/26/16 Macario Pryor MD [address] [place] [address] PCP - Hematology/Oncology Internal Medicine-Medical Oncology 11/12/15 Jan Sin MD [address] [place] [address] [place], [place] [id number] Internal Medicine-Cardiovascul ar Disease 08/28/14 documented as of this encounter
--- OUTSIDE RECORDS SUMMARY | 2025-04-23 09:00 | XMS_ITS | Encounter Summary ---
Author Organization [place] [address] Care Team Providers Care Shot Lighter Name Role Phone Jan Sin MD Unavailable [phone] Macario Pryor MD Unavailable [facility] Resendez MD Primary Care Provider [phone] Reason for Visit * Reason Comments Annual Exam Encounter Details Date Type Department Care Team (Late st Contact Info) Description 04/23/2025 9:00 AM EDT Office Visit SEP [facility] [place] [phone] Cr Resendez MD [address] [place] [address] [place]ST[place] MARTINEZ [id number] Encounter for Medicare annual wellness exam (Primary [...] Under treatment with GI and oncology at [facility]. On once monthly chemotherapy atthis time. Planning [...] Currently being treated for hepatocellular carcinoma at [facility] Fall Risk Assessment: Fall Risk Assessment: positive [...] Under treatment with GI and oncology at [facility]. On once monthly chemotherapy atthis time. Planning [...] prostate cancer screening Bilateral impacted cerumen Orders: [place] REMOVAL IMPACTED CERUMEN IRRIGATION/LVG UNILAT Cerumen impaction [...] visit. If you have a power of corporate associate attorney stute, we should also have a [...] provided to the patient digitally through their [employer] account or with a paper copy if the patient doesn't have an active MyChart Account. A copy of today's progress note with recommendations below is alsoavailable electronically for patients with an active [employer] account per the Federal Cures Act. TheAVS [...] disease) (HCC) Depression Headache(784.0) Hypertension Kidney stone [place] (myocardial infarction) (HCC) 4 times Neuromuscular disorder (HCC) back and left leg Other disorders of kidney and ureter trys to go often Shortness of breath Past Surgical History: Procedure Laterality Date BACK SURGERY 08/30/1997 CARDIAC SURGERY cabg 2 times CARDIAC SURGERY 2019 pace maker CATARACT REMOVAL 08/30/2007 COLONOSCOPY N/A 10/14/2015 COLONOSCOPY snare polypectomy; Surgeon: Poppy Quintero MD; Location: [facility]; Service: Endoscopy CORONARY ANGIOPLASTY WITH STENT PLACEMENT 01/04/2024 [facility] EYE SURGERY sandra cataract HERNIA REPAIR NECK SURGERY 12/06/2024 [facility] SPINAL CORD DECOMPRESSION 08/30/1998 UPPER GASTROINTESTINAL ENDOSCOPY N/A 10/30/2015 ESOPHAGOGASTRODUODENOSCOPY with biopsies; Surgeon: Poppy Quintero MD; Location: [facility]; Service: Endoscopy VASCULAR SURGERY spinal cord [...] Tablet by mouth daily. 90 Tablet 3 flabilsaeod-mpenjljyc-zjuytimm (TRELEGY ELLIPTA) 100-62.5-25 mcg Inhl Disk with [...] SHAKE WELL nalOXone (NARCAN) 4 mg/actuation Nasl [place], Non-Aerosol 0.1 mL by Nasal route daily [...] Food Insecurity: Patient Declined (12/07/2024) Received from [facility] Hunger Vital Sign Worried About Running Out of Food in the Last Year: Patient declined Ran Out of Food in the Last Year: Patient declined Transportation Needs: Patient Declined (12/07/2024) Received from [facility] PRAPARE - Transportation Lack of Transportation (Medical): Patient declined Lack of Transportation (Non-Medical): Patient declined Housing Stability: Patient Declined (12/07/2024) Received from [facility] Housing Stability Vital Sign Unable to [...] Type Priority Associated Diagnoses Orde r Schedule MA REMOVAL IMPACTED CERUMEN IRRIGATION/LVG UNILAT MA Charge Routine Bilateral impacted cerumen Ordered: 04/23/2025 [...] Priority Date/Time Associated Diagnosis Comments SCANNED LABS 05/27/2025 6:46 PM EDT SCANNED LABS 05/07/2025 4:00 PM EDT SCANNED [...] in this encounter Results * SCANNED LABS (05/27/2025 6:46 PM EDT) 05/27/2025 6:46 PM EDT us Unknown Provider HEMATOLOGY ORDERABLES [...] 0.08 <=4.00 ng/mL 04/23/2025 3:49 PM EDT [facility] [employer] Blood VENOUS BLOOD / Unknown Venipuncture / Unknown 04/23/2025 9:47 AM EDT 04/23/2025 9:47 AM EDT Narrative [facility] - 04/23/2025 3:49 PM EDT The Ricky [...] Resendez MD CHEMISTRY ORDERABLES Final Res ult [facility] [employer] [address] [facility], [place] [address] * LIPID PANEL REFLEX (04/23/2025 9:47 AM EDT) Cholesterol 98 <200 mg/dL 04/23/2025 4:37 PM EDT [facility] Comment: < 200 Desirable 200 - 239 Borderline High >= 240 High Triglyceride 38 <150 mg/dL 04/23/2025 4:37 PM EDT [facility] Comment: < 150 Normal 150 - 199 Borderline High 200 - 499 High >= 500 Very High HDL 40 >=40 mg/dL 04/23/2025 4:37 PM EDT [facility] Comment: > 60 Optimal 40 - 60 Acceptable < 40 Low LDL Calculated 47 <100 mg/dL 04/23/2025 4:37 PM EDT [facility] [employer] Comment: < 100 Optimal 100 - 129 Near or above optimal 130 - 159 Borderline High 160 - 189 High >= 190 Very High The National Institutes of Health (NIH) equation is used for all lipid panels that report calculated LDL (LDL-C). Non-HDL-C Calculated 58 <=129 mg/dL 04/23/2025 4:37 PM EDT [facility] [employer] Comment: <130 Desirable 130-159 Above Desirable 160-189 Borderline High 190-219 High >= 220 Very High Fasting Specimen? Yes None 025 4:37 PM EDT [facility] [employer] [facility] Blood VENOUS BLOOD / Unknown Venipuncture / Unknown 04/23/2025 9:47 AM EDT 04/23/2025 9:47 AM EDT Cr Resendez MD CHEMISTRY ORDERABLES Final Res ult Performing Organization Address [facility] Co de Phone Number [facility] [employer] [address] , [address] [place], [place] [id number] * TSH REFLEX TO FT4 (04/23/2025 9:47 AM EDT) TSH Reflex 0.889 0.270 - 4.200 mcIU/mL 04/23/2025 4:37 PM EDT [facility] [employer] [facility] Blood VENOUS BLOOD / Unknown Venipuncture / Unknown 04/23/2025 9:47 AM EDT 04/23/2025 9:47 AM EDT Narrative [facility] [employer] [facility] - 04/23/2025 4:37 PM EDT Ingestion of fernanda doses of biotin (>5 mg/day) taken within 8 hours of drawing blood sample can interfere with this immunoassay test. Cr Resendez MD CHEMISTRY ORDERABLES Final Res ult Performing Organization Address [facility] Co de Phone Number [facility] [employer] [address] , [address] [place], [place] [id number] * (ABNORMAL) CBC WITH DIFF (04/23/2025 9:47 AM EDT) Pathologist [facility] WBC 7.3 3.7 - 10.3 x10(3)/mcL 04/23/2025 4:08 PM EDT [facility] RBC 4.77 4.60 - 6.10 x10(6)/mcL 04/23/2025 4:08 PM EDT [facility] Hgb 15.3 13.7 - 17.5 g/dL 04/23/2025 [...] 4:08 PM EDT [facility] Luce # 1.2(H) 0.3 - 0.9 x10(3)/mcL 04/23/2025 [...] Re sult [facility] [address] [facility] , [place] [address] * (ABNORMAL) COMPREHENSIVE METABOLIC PANEL (04/23/2025 9:47 [...] mg/dL 04/23/2025 4:37 PM EDT [facility] BUN 13 8 - 23 mg/dL 04/23/2025 4:37 PM EDT [facility], [facility] Creatinine 0.84 0.67 - 1.30 mg/dL 04/23/2025 4:37 PM EDT [facility] Albumin 3.8 3.2 - 4.6 gm/dL 04/23/2025 4:37 PM EDT [facility] Total Protein 8.3 6.4 - 8.3 gm/dL 04/23/2025 4:37 PM EDT [facility] Bili Total 1.2 0.2 - 1.4 mg/dL 04/23/2025 4:37 PM EDT [facility] ALT 26 <=41 U/L 04/23/2025 4:37 PM EDT [facility] AST 74(H) <=40 U/L 04/23/2025 4:37 PM EDT [facility] Alk Phos 142(H) 40 - 129 U/L 04/23/2025 4:37 PM EDT [facility] eGFR (CKD-EPIcr 2020) 96 >=60 mL/min/1.7 3 m2 04/23/2025 4:37 PM EDT [facility] Comment:Estimated GFR was ca lculated using the CKD-EPIcr (2020) equation refit without race. The equation is recommended by the National Kidney Foundation - [place] [employer] of Nephrology Task Force. Blood VENOUS BLOOD / Unknown Venipuncture / Unknown 04/23/2025 9:47 AM EDT 04/23/2025 9:47 AM EDT us Cr Resendez MD CHEMISTRY ORDERABLES Final Res ult [facility] [address] [facility] , [place] [address] * (ABNORMAL) HEMOGLOBIN A1C (04/23/2025 9:47 AM EDT) Hgb A1C 5.7(H) 4.2 - 5.6 % 04/23/2025 5:18 PM EDT [facility] Est. Avg Glucose 117 mg/dL 04/23/2025 5:18 PM EDT [facility] Blood VENOUS BLOOD / Unknown Venipuncture / Unknown 04/23/2025 9:47 AM EDT 04/23/2025 9:47 AM EDT Narrative [facility] - 04/23/2025 5:18 PM EDT REFERENCE RANGE: Normal: 4.0-5.6% Pre-diabetes: 5.7-6.4% Provisional diagnosis of diabetes: >6.4% Hgb F>10% and anything which shortens red cell survival, such as hemolytic anemia, or unstable hemoglobin variants such as HbSS, HbSC, or HbCC, will lower the HbA1c value associated with a given level of glycemic control. us Cr Resendez MD CHEMISTRY ORDERABLES Final Res ult [facility] [employer] [address] [place] [address] , [place] [address] documented in this encounter Visit Diagnoses Diagnosis [...] documented as of this encounter Care Teams Shot Lighter Relationship Specialty Start Date End Date Macario Pryor MD [address] [place] [address] [place] NAILS [id number] PCP - Hematology/Oncology Internal Medicine-Medical Oncology 11/12/15 Cr Resendez MD [address] [place] [address] [place] MARTINEZ [address] PCP - General Family Medicine 11/24/21 Jan Sin MD [address] [place] [address] [place]ILS [address] Internal Medicine-Cardiovascul ar Disease 08/28/14 documented as of this encounter
--- OUTSIDE RECORDS SUMMARY | 2025-04-23 09:30 | XMS_ITS | Encounter Summary ---
Author Organization [place] [address] Care Team Providers Care Hot Air Furnace Installer And Repairer Name Role Phone Jan Sin MD Unavailable [phone] aMcario Pryor MD Unavailable Cr Rodriguez MD Primary Care Provider [phone] Reason for Visit * Reason Comments Care Management - Face To Face Care Transition Advance Care Planning Encounter Details Date Type Department Care Team (Latest Contact Info) Description 04/23/2025 9:30 AM EDT Clinical Support [facility] [place] [facility] [address] [place] [address] Elizabeth Reynoso, NIURKA Encounter for support [...] presents for follow up visit with Office Breast Buffer (OCC) Reason for visit: Advanced Care Planning Visit Type: Face to Face Assessment: auto club safety program coordinator met with patient and spouse to [...] Educated patient on: Advanced Care Planning Handouts: [place] Living Will x 2 copies Handouts provided in person Care Coordination Business Card Goals: One-time assessment Next Steps: Breast Buffer contact information given / reviewed Notes: No identified SDOH concerns after SDOH assessment review documented in this encounter Miscellaneous Notes * ACP (Advance Care Planning) - Elizabeth Reynoso RN - 04/23/2025 9:30 AM EDT Advance Care Planning discussion: ACP discussion: This technical publications writer and patient addressed ACP including explanation [...] documented as of this encounter Care Teams Hot Air Furnace Installer And Repairer Relationship Specialty Start Date End Date Macario Pryor MD [address] [place] [address] TRIST[place] NAILS [address] PCP - Hematology/Oncology Internal Medicine-Medical Oncology 11/12/15 Cr Resendez MD [address] [place] [address] TRISTIAN MARTINEZ [address] PCP - General Family Medicine 11/24/21 Jan Sin MD [address] [place] [address] TRIST[place] NAILS [id number] Internal Medicine-Cardiovascul ar Disease 08/28/14 documented as of this encounter
--- OUTSIDE RECORDS SUMMARY | 2025-05-01 16:53 | XMS_ITS | Encounter Summary ---
Author Organization Healthcare Address [address] [place] [address] Care Team Providers Care Sewing Machine Operator Floorperson Name Role Phone Isabella Saucedo Phong TEN PIN BOWLING CENTRE MANAGER Unavailable [phone] Jeannie Mcmillan RN Unavailable [phone] Ebony Shoemaker Unavailable [phone] Pcp, No Primary Care Provider Unavailabl e Rodney Gonzáles MD Unavailable [phone] Reason for Referral * Consultation (Routine) - Authorized Specialty Diagnoses / Procedures Referred By Contac t Referred To Contact Diagnoses RUQ abdominal pain Ang Will MD [address] [place] [address] Phone: tel: fax: Referral ID Status Reason Start Date Expiration Date V isits Requested Visits Authorized [id number] Authorized 05/05/2025 11/04/2026 1 1 Reason for Visit * Reason Comments Abdominal Pain * Auth/Cert (Routine) Specialty Diagnoses / Procedures Referred By Contarjun t Referred To Contact Diagnoses Abdominal pain Liver Cancer Russell Rai MD [address] [place] [address] Phone: tel: fax: P[facility] A Inpatient [address] [place] [address] Referral ID Status Reason Start Date Expiration Date Visits Re quested Visits Authorized [id number] 1 1 Encounter Details Date Type Department Care Team (Latest Contact Info) Description 05/01/2025 4:53 PM EDT - 05/05/2025 2:45 PM EDT Hospital Encounter [facility] Inpatient [address] [place] [address] Willy Saleh MD [address] [place] [address] Russell Rai MD [address] [place] [address] Ang Will MD [address] [place] [address] Generalized abdominal pain (Primary Dx); Hepatocellular carcinoma; RUQ abdominal pain Discharge Disposition: Home or Self Care Social History Tobacco Use Types Packs/Day Years Used Date Smoking Tobacco: Every Day Cigarettes 0.5 7.8 Started: 2017 Smokeless Tobacco: Never PHQ-2 Answer [...] time in the [facility], were you homeless or living in a assisted (including now)? No 05/02/2025 [facility] Utilities Answer Date Recorded In the past [...] Admit Date/Time: 05/01/2025 4:53 PM Admitting Attending: Russell Rai Discharge Date: 05/05/2025 Discharge Attending Physician: Ang Will MD PCP name and Address: Pcp, [address] [address] Referring provider name and address: Cr Lazo MD [address] [place] [address] Chief Concern, Brief History of Present Illness, and Hospital Course Rl Steward is a 65 y.o. male PMHx of COPD, tobacco dependence, ischemic heart disease, coronaryartery disease, anxiety, depression, chronic back pain, decompensated cirrhosis, and newly diagnosed hepatocellular carcinoma that presented to the emergency department as a transfer from [facility] with RUQ pain and concern for [...] #Cancer related pain (POA0 -Receiving chemotherapy at [facility]. Last dose of chemo was on [...] overall morbidity & mortality. -Monitor albumin -Consult Printer'S Assistant -Continue megace #Nicotine dependence (POA) -Smokes about [...] Ellipta 100-62.5-25 MCG/ACT aerosol powder Generic drug: Wqxudwnvste-Ikvcaqipk-Nngvzk INHALE 1 PUFF INTO THE LUNGS DAILY [...] Flowsheets (Taken 05/05/2025 0921) Pain Management Interventions: jwjozp-vdv-wgzrr dosing utilized medication (see MAR) care clustered [...] Flowsheets (Taken 05/05/2025 0921) Pain Management Interventions: qtwhsj-kpl-ekest dosing utilized medication (see MAR) care clustered [...] Flowsheets (Taken 05/05/2025 0921) Pain Management Interventions: hfabhi-mza-asdfp dosing utilized medication (see MAR) care clustered [...] Comfort Flowsheets (Taken 05/05/202548) Pain Management Interventions: lsgzsy-vdh-xxsnn dosing utilized care clustered pain management plan [...] Plan Flowsheets (Taken 05/05/202548) Pain Management Interventions: nzwfgp-wil-djayn dosing utilized care clustered pain management plan [...] Inhalation, 4x daily PRN, Crane, Lexi L, TEN PIN BOWLING CENTRE MANAGER calcium carbonate (Tums) chewable tablet 500 mg, 500 mg, Oral, q4h PRN, Crane, Lexi L, TEN PIN BOWLING CENTRE MANAGER cyclobenzaprine (Flexeril) tablet 5 mg, 5 mg, Oral, BID PRN, Crane, Lexi L, TEN PIN BOWLING CENTRE MANAGER, 5 mg at 736 escitalopram (Lexapro) tablet 20 mg, 20 mg, Oral, Daily, Crane, Lexi L, TEN PIN BOWLING CENTRE MANAGER, 20 mg at 05/04/25826 furosemide (Lasix) tablet 20 mg, 20 mg, Oral, Daily, Crane, Lexi L, TEN PIN BOWLING CENTRE MANAGER, 20 mg at 09/05/25 0827 HYDROmorphone (Dilaudid) injection 0.5 mg, 0.5 mg, Intravenous, q4h PRN, Rosa Maria Lexi L, TEN PIN BOWLING CENTRE MANAGER, 0.5 mg at 05/04/25 1405 HYDROmorphone (Dilaudid) tablet 3 mg, 3 mg, Oral, q4h PRN, Rosa Maria Lexi L, TEN PIN BOWLING CENTRE MANAGER, 3 mg at 05/03/25 1615 Tiotropium Elim Monohydrate (Spiriva Respimat) 2.5 MCG/ACT inhaler 2 puff, 2 puff, Inhalation, Daily, 2 puff at 05/04/25 0828 AND mometasone-formoterol (Dulera 100) 100-5 MCG/ACT inhaler 2 puff, 2 puff, Inhalation, BID, Bhavya Craneoya L, TEN PIN BOWLING CENTRE MANAGER, 2 puff at 05/04/25 0828 nicotine (Nicoderm CQ) 21 MG/24HR patch 1 patch, 1 patch, Transdermal, Daily, Lexi Crane, TEN PIN BOWLING CENTRE MANAGER,1 patch at 05/04/25 0827 piperacillin-tazobactam (Zosyn) 4.5 g in sodium chloride 0.9% 100 mL IVPB (vial adapter required), 4.5 g, Intravenous, q6h, Saadia Cranea L, TEN PIN BOWLING CENTRE MANAGER, Last Rate: 36.7 mL/hr at 05/04/25 1405, 4.5 g at 05/04/25 1405 [COMPLETED] Insert peripheral IV, , , Once AND [COMPLETED] Saline lock IV, , , Once AND sodium chloride 0.9 % flush 10 mL, 10 mL, Intravenous, q12h, 10 mL at 05/04/25 0121 AND sodium chloride 0.9 % flush 10 mL, 10 mL, Intravenous, PRN, Bhavya Craneoya L, TEN PIN BOWLING CENTRE MANAGER Cosigned by Tremaine Waddell MD at 05/07/2025 [...] the emergency department as a transfer from [facility] with RUQ pain and concern for [...] #Cancer related pain (POA0 -Receiving chemotherapy at [facility]. Last dose of chemo was on [...] overall morbidity & mortality. -Monitor albumin -Consult Printer'S Assistant -Continue megace #Nicotine dependence (POA) -Smokes about [...] Note Rl Steward 65 y.o. male CSN: [id number] Admission: 05/01/2025 4:53 PM Primary Problem: Abdominal [...] Inhalation, 4x daily PRN, Crane, Lexi L, TEN PIN BOWLING CENTRE MANAGER calcium carbonate (Tums) chewable tablet 500 mg, 500 mg, Oral, q4h PRN, Crane, Lexi L, TEN PIN BOWLING CENTRE MANAGER cyclobenzaprine (Flexeril) tablet 5 mg, 5 mg, Oral, BID PRN, Crane, Lexi L, TEN PIN BOWLING CENTRE MANAGER, 5 mg at 736 escitalopram (Lexapro) tablet 20 mg, 20 mg, Oral, Daily, Crane, Lexi L, TEN PIN BOWLING CENTRE MANAGER, 20 mg at 05/03/25 08 furosemide (Lasix) tablet 20 mg, 20 mg, Oral, Daily, Crane, Lexi L, TEN PIN BOWLING CENTRE MANAGER, 20 mg at 05/03/25 0802 HYDROmorphone (Dilaudid) injection 0.5 mg, 0.5 mg, Intravenous, q4h PRN, Crane, Lexi L, TEN PIN BOWLING CENTRE MANAGER, 0.5 mg at 05/03/25 1406 HYDROmorphone (Dilaudid) tablet 3 mg, 3 mg, Oral, q4h PRN, Crane, Lexi L, TEN PIN BOWLING CENTRE MANAGER, 3 mg at 05/02/25 0736 Tiotropium Elim Monohydrate (Spiriva Respimat) 2.5 MCG/ACT inhaler 2 puff, 2 puff, Inhalation, Daily, 2 puff at 05/03/25 0803 AND mometasone-formoterol (Dulera 100) 100-5 MCG/ACT inhaler 2 puff, 2 puff, Inhalation, BID, Crane, Lexi L, TEN PIN BOWLING CENTRE MANAGER, 2 puff at 05/03/25 0804 nicotine (Nicoderm CQ) 21 MG/24HR patch 1 patch, 1 patch, Transdermal, Daily, Crane, Lexi L, TEN PIN BOWLING CENTRE MANAGER,1 patch at 05/03/25 0802 piperacillin-tazobactam (Zosyn) 4.5 g in sodium chloride 0.9% 100 mL IVPB (vial adapter required), 4.5 g, Intravenous, q6h, Crane, Lexi L, TEN PIN BOWLING CENTRE MANAGER, Last Rate: 36.7 mL/hr at 05/03/25 1230, 4.5 g at 05/03/25 1230 [COMPLETED] Insert peripheral IV, , , Once AND [COMPLETED] Saline lock IV, , , Once AND sodium chloride 0.9 % flush 10 mL, 10 mL, Intravenous, q12h, 10 mL at 05/02/25 2325 AND sodium chloride 0.9 % flush 10 mL, 10 mL, Intravenous, PRN, Crane, Lexi L, TEN PIN BOWLING CENTRE MANAGER Cosigned by Tremaine Waddell MD at 05/07/2025 [...] the emergency department as a transfer from [facility] with RUQ pain and concern for [...] #Cancer related pain (POA0 -Receiving chemotherapy at [facility]. Last dose of chemo was on [...] overall morbidity & mortality. -Monitor albumin -Consult Printer'S Assistant -Continue megace #Nicotine dependence (POA) -Smokes about [...] tobacco dependence, and hepatocellular carcinoma presenting to [facility] on 05/01/2025 with right upper quadrant [...] been discussed with Dr. Blackwell, Attending Physician Robbei Mccarthy DO [1] No family history on file. [2] Current Facility-Administered Medications Medication Dose Route Frequency Provider Last Rate Last Admin albuterol 108 (90 Base) MCG/ACT inhaler 2 puff 2 puff Inhalation 4x daily PRN Crane, Lexi L, TEN PIN BOWLING CENTRE MANAGER calcium carbonate (Tums) chewable tablet 500 mg 500 mg Oral q4h PRN Crane, Lexi L, TEN PIN BOWLING CENTRE MANAGER cyclobenzaprine (Flexeril) tablet 5 mg 5 mg Oral BID PRN Rosa Maria Lexi L, TEN PIN BOWLING CENTRE MANAGER 5 mg at 05/02/25 0736 escitalopram (Lexapro) tablet 20 mg 20 mg Oral Daily Saadia Cranea L, TEN PIN BOWLING CENTRE MANAGER 20 mg at 05/03/25 0802 furosemide (Lasix) tablet 20 mg 20 mg Oral Daily Crane, Lexi L, TEN PIN BOWLING CENTRE MANAGER 20 mg at 05/03/25 0802 HYDROmorphone (Dilaudid) injection 0.5 mg 0.5 mg Intravenous q4h PRN Saadia Cranea L, TEN PIN BOWLING CENTRE MANAGER 0.5 mg at05/03/25 1406 HYDROmorphone (Dilaudid) tablet 3 mg 3 mg Oral q4h PRN Saadia Cranea L, TEN PIN BOWLING CENTRE MANAGER 3 mg at 05/03/25 1615 Tiotropium Elim Monohydrate (Spiriva Respimat) 2.5 MCG/ACT inhaler 2 puff 2 puff Inhalation Daily Saadia Cranea Vega, TEN PIN BOWLING CENTRE MANAGER 2 puff at 05/03/25 0803 And mometasone-formoterol (Dulera 100) 100-5 MCG/ACT inhaler 2 puff 2 puff Inhalation BID Saadia Cranea Vega, TEN PIN BOWLING CENTRE MANAGER 2 puff at 05/03/25 0804 nicotine (Nicoderm CQ) 21 MG/24HR patch 1 patch 1 patch Transdermal Daily Saadia Cranea Vega, TEN PIN BOWLING CENTRE MANAGER 1 patch at 05/03/25 0802 piperacillin-tazobactam (Zosyn) 4.5 g in sodium chloride 0.9% 100 mL IVPB (vial adapter required) 4.5 g Intravenous q6h Rosa Maria Lexi Vega, TEN PIN BOWLING CENTRE MANAGER 36.7 mL/hr at 05/03/25 1230 4.5 g at 09/04/25 1230 sodium chloride 0.9 % flush 10 mL 10 mL Intravenous q12h Lexi Crane, TEN PIN BOWLING CENTRE MANAGER 10 mL at 05/02/25 2325 And sodium chloride 0.9 % flush 10 mL 10 mL Intravenous PRN Lexi Crane TEN PIN BOWLING CENTRE MANAGER Cosigned by Kasey Blackwell MD at 05/03/2025 [...] hepatocellular carcinoma. We have been consultedas the dosier operator have concerns that his pain is related [...] patient and his Kasey Blackwell MD, FACS immigration specialist Trauma Acute Care Surgery * Significant Event [...] the emergency department as a transfer from [facility] with RUQ pain and concern for [...] #Cancer related pain (POA0 -Receiving chemotherapy at [facility]. Last dose of chemo was on [...] overall morbidity & mortality. -Monitor albumin -Consult Printer'S Assistant -Continue megace #Nicotine dependence (POA) -Smokes about [...] Note Rl Steward 65 y.o. male CSN: [id number] Admission: 05/01/2025 4:53 PM Primary Problem: Abdominal pain Core Java Engineer reviewed chart and spoke with patient and spouse at bedside to complete this Initial Case Management Assessment. PCP: Cr Resendez MD in [place], [place] Emergency Contact: Extended Emergency Contact Information Primary Emergency Contact: Ashley Steward [facility] Relation: Spouse Preferred language: Kyrgyz Community Service Organization Director needed? No Insurance: Primary Visit Coverage Payer Plan Sponsor Code Group Number Group Name MEDICARE MEDICARE A & B Primary Visit Coverage Subscriber Subscriber ID Subscriber Name Subscriber SSN Subscriber Address [id number] [phone] [address] [place] [address] Secondary Visit Coverage Payer Plan Sponsor Code Group Number Group Name [place] [facility] Secondary Visit Coverage Subscriber Subscriber ID Subscriber Name Subscriber SSN Subscriber Address [id number] [address] [id number] [address] [place] [address] Patient information: Primary Caregiver: Self Support System: Immediate family Daily Living Activities: Functional Status: Independent Living Arrangements: Spouse/Significant other Type of Residence: Private residence, Multi Level (stays on main floor; 2 steps for entry) [address] [facility] [address] Current DME: Equipment Currently Used at Home: none Income Information: Income/Expense Information: Income meets expenses Anticipated Discharge Date: TBD Patient's Discharge Goal: Return home Assistance Available at Discharge: Spouse & son Discharge Transport: Spouse Follow Up Transport: Spouse/Son Home Health / Home Infusion / Outpatient Dialysis Services: None Living Will/Advance Directive/Power of Brine Process Operator /Guardian: None Additional Comments: Pt confirmed address, EC, and insurance. Pt sees Cr Resendez in [place], [place] for primary care. Pt lives with [...] concerns. Keaton Ponce MD PGY-5 Gastroenterology Fellow [facility] [1] Past Medical History: Diagnosis Date [...] Daily furosemide, 20 mg, Oral, Daily Tiotropium Elim Monohydrate, 2 puff, Inhalation, Daily And mometasone-formoterol, [...] Avila Outcome: Ongoing, Progressing 05/02/2025625 by Karen vAila Outcome: Ongoing, Progressing Goal: Optimal Comfort and [...] the emergency department as a transfer from [facility] with RQU pain. Mr. Steward states [...] Of note he is receiving chemotherapy at [facility]. He has only received 1 dose [...] Food Insecurity: Patient Declined (12/07/2024) Received from [facility] Hunger Vital Sign Within the past 12 months, you worried that your food would run out before you got the money to buymore.: Patient declined Within the past 12 months, the food you bought just didn't last and you didn't have money to get more.: Patient declined Transportation Needs: Patient Declined (12/07/2024) Received from [facility] PRAPARE - Transportation Lack of Transportation (Medical): Patient declined Lack of Transportation (Non-Medical): Patient declined Physical Activity: Not on file Stress: Not on file Social Connections: Not on file Intimate Partner Violence: Not on file Housing Stability: Patient Declined (12/07/2024) Received from [facility] Housing Stability Vital Sign In the [...] Abnormal Ventricular Rate 70 Atrial Rate 70 MN Interval 138 QRSD Interval 86 QT Interval 414 QTC Interval 447 P Melrose 50 R Melrose -53 T Wave Melrose 43 Diagnosis Normal sinus rhythm with sinus [...] the emergency department as a transfer from [facility] with RQU pain and concern for [...] #Cancer related pain (POA0 -Receiving chemotherapy at [facility]. Last dose of chemo was on [...] overall morbidity & mortality. -Monitor albumin -Consult Printer'S Assistant -Continue megace #Nicotine dependence (POA) -Smokes about [...] APRN Department of Internal Medicine Division of [facility] Medicine Secure chat preferred Pager: [phone] [1] Past Medical History: Diagnosis Date COPD [...] workup of his hyperbilirubinemia and right upper quadrant pain in the setting of HCC. TXP will [...] hours Placed in And Linked Group Acknowledged LEXI CRANE L 05/01/25 225 Pulse Oximetry Every 4 hours Placed in And Linked Group Acknowledged LEXI CRANE L 05/01/25 225 NPO diet Diet effective now Acknowledged LEXI CRANE L 05/01/25 225 Full code Continuous Acknowledged SAADIA CRANEA L 05/01/25 225 Sequential compression device Until discontinued Comments: SCDs must be in place and turned on EXCEPT when ACTIVELY ambulating. Acknowledged LEXI CRANE L 05/01/25 225 Okay To Give Nicotine Replacement Until discontinued Acknowledged SAADIA CRANEA L 05/01/25 225 Admit to inpatient Once Completed SAADIA CRANEA L 05/01/25 225 Mobility Orders Until discontinued Acknowledged SAADIA CRANEA L 05/01/252254 Notify physician (specify parameters) Until discontinued Acknowledged SAADIA CRANEA L 05/01/252254 Insert peripheral IV Once Placed in And Linked Group Acknowledged SAADIA CRANEA L 05/01/252254 Saline lock IV Once Placed in And Linked Group Acknowledged LEXI CRANE L 05/01/252110 ED to floor bed request [...] as of 05/01/25 2341 Tue May 01, 2025 190 Spoke with EGS - defer to surg-onc [SO] 2030 Discussed the case with surgical oncology who [...] ED Prescriptions None Disposition Admit Admitting/Attending Physician: RUSSELL RAI [[id number]] Provider Care Team: JHOANA 14 [197] Are [...] documented. * ED Triage Notes - Tana Nunez RN - 05/01/2025 4:52 PM EDT Patient presents from [facility] where he was seen for [...] Present. Procedure Note Evie Black MD - 05/04/2025 CLINICAL INDICATION: Concern for acute cholecystitis. On [...] - 99 mg/dL 05/04/2025 5:27 AM EDT [facility] BUN, Plasma 11 8 - 23 mg/dL 05/04/2025 5:27 AM EDT [facility] Creatinine, Plasma 0.81 0.70 - 1.20 mg/dL 05/04/2025 5:27 AM EDT [facility] BUN/Creatinine Ratio 14 05/04/2025 5:27 AM EDT [facility] Sodium, Plasma 138 136 - 145 mmol/L 05/04/2025 5:27 AM EDT [facility] Potassium, Plasma 3.3(L) 3.6 - 4.9 mmol/L 05/04/2025 5:27 AM EDT [facility] Chloride, Plasma 106 97 - 107 mmol/L 05/04/2025 5:27 AM EDT [facility] CO2, Plasma 20(L) 22 - 29 mmol/L 05/04/2025 5:27 AM EDT [facility] Anion Gap 12 6 - 16 mmol/L 05/04/2025 5:27 AM EDT [facility] Total Calcium, Plasma 8.5(L) 8.9 - 10.2 mg/dL 05/04/2025 5:27 AM EDT [facility] Total Protein 6.4 6.3 - 7.9 g/dL 05/04/2025 5:27 AM EDT [facility] Albumin, Plasma 2.6(L) 3.5 - 5.2 g/dL 05/04/2025 5:27 AM EDT [facility] AST, Plasma 140(H) 10 - 50 U/L 05/04/2025 5:27 AM EDT [facility] ALT, Plasma 21 10 - 50 U/L 05/04/2025 5:27 AM EDT [facility] Alkaline Phosphatase, Plasma 186(H) 40 - 115 U/L 05/04/2025 5:27 AM EDT [facility] Total Bilirubin, Plasma 2.1(H) 0.2 - 1.1 mg/dL 05/04/2025 5:27 AM EDT [facility] eGFRcr 96.6 mL/min/1.7 3m*2 05/04/2025 5:27 AM EDT [facility] Comment:Reported eGFRcr in m L/min/1.73m2 is based the CKD-EPI 2020 equation that does not use a race coefficient. Blood Venous blood specimen / Unknown Venipuncture / Unknown 05/04/2025 4:33 AM EDT 05/04/2025 4:44 AM EDT us Ang Will MD LAB BLOOD ORDERABLES Courtney vega Result [facility] [address] [place] [address] * (ABNORMAL) CBC W/O Differential (05/04/2025 4:33 AM EDT) WBC Count 4.71 3.70 - 10.30 10*3/uL LAB HEMATOLOGY METHOD 05/04/2025 5:18 AM EDT [facility] RBC Count 4.16(L) 4.60 - 6.10 10*6/uL LAB HEMATOLOGY METHOD 05/04/2025 5:18 AM EDT [facility] HGB 13.1(L) 13.7 - 17.5 g/dL LAB HEMATOLOGY METHOD 05/04/2025 5:18 AM EDT [facility] HCT 38.4(L) 40.0 - 51.0 % LAB HEMATOLOGY METHOD 05/04/2025 5:18 AM EDT [facility] Platelet Count 117(L) 155 - 369 10*3/uL LAB HEMATOLOGY METHOD 05/04/2025 5:18 AM EDT [facility] MCV 92 79 - 98 fL LAB HEMATOLOGY METHOD 05/04/2025 5:18 AM EDT [facility] MCH 31.5 26.0 - 32.0 pg LAB HEMATOLOGY METHOD 05/04/2025 5:18 AM EDT [facility] MCHC 34.1 30.7 - 35.5 g/dL LAB HEMATOLOGY METHOD 05/04/2025 5:18 AM EDT [facility] RDW 15.5(H) 11.5 - 14.5 % LAB HEMATOLOGY METHOD 05/04/2025 5:18 AM EDT [facility] MPV 11.5 8.8 - 12.5 fL LAB HEMATOLOGY METHOD 05/04/2025 5:18 AM EDT [facility] nRBC 0.0 <=0.0 per 100 WBCs LAB HEMATOLOGY METHOD 05/04/2025 5:18 AM EDT [facility] Blood Venous blood specimen / Unknown Venipuncture / Unknown 05/04/2025 4:33 AM EDT 05/04/2025 4:45 AM EDT Ang Will MD LAB BLOOD ORDERABLES Courtney l Result Performing Organization Address City/[facility]/ZIP Co de Phone Number [facility] [address] [place] [address] * (ABNORMAL) Creatine Kinase, Total, Plasma (05/04/2025 4:33 AM EDT) Creatine Kinase, Plasma 33(L) 49 - 320 U/L 05/04/2025 5:27 AM EDT [facility] Blood Venous blood specimen / Unknown Venipuncture / Unknown 05/04/2025 4:33 AM EDT 05/04/2025 4:44 AM EDT Ang Will MD LAB BLOOD ORDERABLES Courtney l Result Performing Organization Address [facility] Co de Phone Number [facility] [address] [place] [address] * Phosphatidylethanol (PEth), Whole Blood, Quantitative (05/04/2025 4:33 AM EDT) Pathologist [facility] PEth 16:0/18:2 (PLPEth) <10 ng/mL 05/06/2025 12:20 PM EDT [facility] PEth 16:0/18:1 (POPEth) <10 ng/mL 05/06/2025 12:20 PM EDT [facility] EER Peth See Note 05/06/2025 12:20 PM EDT [facility] PEth Interpretation See Comment 05/06/2025 12:20 PM EDT [facility]) Blood Venous blood specimen / Unknown Venipuncture / Unknown 05/04/2025 4:33 AM EDT 05/04/2025 4:42 AM EDT Narrative [facility] ([facility]) - 05/06/2025 12:20 PM EDT PEth 16:0/18:1 (POPEth) Less than 10 ng/mL............Not detected Less than 20 ng/mL............Abstinence or light alcohol consumption 20 - 200 ng/mL................Moderate alcohol consumption Greater than 200 ng/mL........Heavy alcohol consumption or chronic alcohol use (Reference: Hannah Correa and Trice Azevedo 2018 J. Forensic Sci) Reference ranges are not well established. Authorized individuals can access the [employer] Enhanced Report with an [employer] Connect account using the following link. Your local lab can assist you in obtaining the patient report if you don't have a Connect account. [email or web address] Phosphatidylethanol (PEth) is a group of phospholipids [...] developed and its performance characteristics determined by [facility]. It has not been cleared or approved by the U.S. Food and Drug Administration. This test was performed in a CLIA-certified laboratory and is intended for clinical purposes. Performed By: [facility] [address] [place] [address] Director Pharmaceutical: David Marx MD, PhD CLIA Number: [id number] us Ang Will MD LAB REF LAB BLOOD AND FLU ID ORD Final Result [facility]) [place] [address] * (ABNORMAL) Comprehensive metabolic panel (05/03/2025 4:00 AM EDT) Glucose, Plasma 96 74 - 99 mg/dL 05/03/2025 4:51 AM EDT [facility] BUN, Plasma 13 8 - 23 mg/dL 05/03/2025 4:51 AM EDT [facility] Creatinine, Plasma 0.86 0.70 - 1.20 mg/dL 05/03/2025 4:51 AM EDT [facility] BUN/Creatinine Ratio 15 05/03/2025 4:51 AM EDT [facility] Sodium, Plasma 137 136 - 145 mmol/L 05/03/2025 4:51 AM EDT [facility] Potassium, Plasma 3.6 3.6 - 4.9 mmol/L 05/03/2025 4:51 AM EDT [facility] Chloride, Plasma 103 97 - 107 mmol/L 05/03/2025 4:51 AM EDT [facility] CO2, Plasma 22 22 - 29 mmol/L 05/03/2025 4:51 AM EDT [facility] Anion Gap 12 6 - 16 mmol/L 05/03/2025 4:51 AM EDT [facility] Total Calcium, Plasma 9.0 8.9 - 10.2 mg/dL 05/03/2025 4:51 AM EDT [facility] Total Protein 7.1 6.3 - 7.9 g/dL 05/03/2025 4:51 AM EDT [facility] Albumin, Plasma 3.0(L) 3.5 - 5.2 g/dL 05/03/2025 4:51 AM EDT [facility] AST, Plasma 205(H) 10 - 50 U/L 05/03/2025 4:51 AM EDT [facility] Comment:Hemolyzed, result ma y be falsely increased. ALT, Plasma 23 10 - 50 U/L 05/03/2025 4:51 AM EDT [facility] Alkaline Phosphatase, Plasma 220(H) 40 - 115 U/L 05/03/2025 4:51 AM EDT [facility] Total Bilirubin, Plasma 1.7(H) 0.2 - 1.1 mg/dL 05/03/2025 4:51 AM EDT [facility] eGFRcr 94.9 mL/min/1.7 3m*2 05/03/2025 4:51 AM EDT [facility] Comment:Reported eGFRcr in m L/min/1.73m2 is based the CKD-EPI 2020 equation that does not use a race coefficient. Blood Venous blood specimen / Unknown Venipuncture / Unknown 05/03/2025 4:00 AM EDT 05/03/2025 4:21 AM EDT us Ang Will MD LAB BLOOD ORDERABLES Courtney ferrari Result [facility] [address] [place] [address] * (ABNORMAL) CBC W/O Differential (05/03/2025 4:00 AM EDT) WBC Count 5.46 3.70 - 10.30 10*3/uL LAB HEMATOLOGY METHOD 05/03/2025 4:34 AM EDT [facility] RBC Count 4.39(L) 4.60 - 6.10 10*6/uL LAB HEMATOLOGY METHOD 05/03/2025 4:34 AM EDT [facility] HGB 14.0 13.7 - 17.5 g/dL LAB HEMATOLOGY METHOD 05/03/2025 4:34 AM EDT [facility] HCT 41.1 40.0 - 51.0 % LAB HEMATOLOGY METHOD 05/03/2025 4:34 AM EDT [facility] Platelet Count 122(L) 155 - 369 10*3/uL LAB HEMATOLOGY METHOD 05/03/2025 4:34 AM EDT [facility] MCV 94 79 - 98 fL LAB HEMATOLOGY METHOD 05/03/2025 4:34 AM EDT [facility] MCH 31.9 26.0 - 32.0 pg LAB HEMATOLOGY METHOD 05/03/2025 4:34 AM EDT [facility] MCHC 34.1 30.7 - 35.5 g/dL LAB HEMATOLOGY METHOD 05/03/2025 4:34 AM EDT [facility] RDW 15.3(H) 11.5 - 14.5 % LAB HEMATOLOGY METHOD 05/03/2025 4:34 AM EDT [facility] MPV 12.5 8.8 - 12.5 fL LAB HEMATOLOGY METHOD 05/03/2025 4:34 AM EDT [facility] nRBC 0.0 <=0.0 per 100 WBCs LAB HEMATOLOGY METHOD 05/03/2025 4:34 AM EDT [facility] Blood Venous blood specimen / Unknown Venipuncture / Unknown 05/03/2025 4:00 AM EDT 05/03/2025 4:24 AM EDT Ang Will MD LAB BLOOD ORDERABLES Courtney l Result [facility] [address] [place] [address] * (ABNORMAL) Bilirubin, direct (05/02/2025 1:42 PM EDT) Direct Bilirubin, Plasma 0.7(H) <=0.3 mg/dL 05/02/2025 2:51 PM EDT [facility] Blood Venous blood specimen / Unknown Venipuncture / Unknown 05/02/2025 1:42 PM EDT 05/02/2025 2:10 PM EDT Ang Will MD LAB BLOOD ORDERABLES Courtney l Result [facility] [address] [place] [address] * (ABNORMAL) Bilirubin, direct (05/02/2025 2:07 AM EDT) Direct Bilirubin, Plasma 1.1(H) <=0.3 mg/dL 05/02/2025 3:20 PM EDT [facility] Blood Venous blood specimen / Unknown Venipuncture / Unknown 05/02/2025 2:07 AM EDT 05/02/2025 2:20 AM EDT us Ang Will MD LAB BLOOD ORDERABLES Courtney l Result Performing Organization Address City/[facility]/ZIP Co de Phone Number [facility] [address] [place] [address] * (ABNORMAL) Lactate, venous (05/02/2025 2:07 AM EDT) Lactate, Venous, Whole Blood 3.0(H) 0.5 - 2.2 mmol/L LAB HEMATOLOGY METHOD 05/02/2025 2:21 AM EDT [facility] Blood Venous blood specimen / Unknown Venipuncture / Unknown 05/02/2025 2:07 AM EDT 05/02/2025 2:19 AM EDT us Lexi Crane APRN LAB BLOOD ORDERABLES Final Re sult Performing Organization Address [facility]/ZIP Co de Phone Number [facility] [address] [place] [address] * (ABNORMAL) Prothrombin Time/INR (05/02/2025 2:07 AM EDT) Prothrombin Time 14.5(H) 12.0 - 14.3 sec LAB COAGULATION METHOD 05/02/2025 2:44 AM EDT [facility] INR 1.1 0.9 - 1.1 LAB COAGULATION METHOD 05/02/2025 2:44 AM EDT [facility] Blood Venous blood specimen / Unknown Venipuncture / Unknown 05/02/2025 2:07 AM EDT 05/02/2025 2:20 AM EDT Narrative [facility] - 05/02/2025 2:44 AM EDT OPTIMAL INR RANGES FOR PATIENT ON ORAL ANTICOAGULANT THERAPY Prevention of venous thromboembolism INR 2.0 to 3.0 In patients with heart disease: Atrial fibrillation INR 2.0 to 3.0 Valvular heart disease INR 2.0 to 3.0 Tissue heart valves INR 2.0 to 3.0 Mechanical prosthetic valves INR 2.5 to 3.5 Prevention of recurrent NV INR 2.5 to 3.5 us Lexi Crane T[employer] BOWLING CENT[employer] MANAGER LAB BLOOD ORDERABLES Final Re sult [facility] [address] [place] [address] * (ABNORMAL) Comprehensive metabolic panel (05/02/2025 2:07 AM EDT) Glucose, Plasma 106(H) 74 - 99 mg/dL 05/02/2025 2:51 AM EDT [facility] BUN, Plasma 16 8 - 23 mg/dL 05/02/2025 2:51 AM EDT [facility] Creatinine, Plasma 0.84 0.70 - 1.20 mg/dL 05/02/2025 2:51 AM EDT [facility] BUN/Creatinine Ratio 19 05/02/2025 2:51 AM EDT [facility] Sodium, Plasma 136 136 - 145 mmol/L 05/02/2025 2:51 AM EDT [facility] Potassium, Plasma 3.8 3.6 - 4.9 mmol/L 05/02/2025 2:51 AM EDT [facility] Chloride, Plasma 101 97 - 107 mmol/L 05/02/2025 2:51 AM EDT [facility] CO2, Plasma 25 22 - 29 mmol/L 05/02/2025 2:51 AM EDT [facility] Anion Gap 10 6 - 16 mmol/L 05/02/2025 2:51 AM EDT [facility] Total Calcium, Plasma 9.1 8.9 - 10.2 mg/dL 05/02/2025 2:51 AM EDT [facility] Total Protein 6.5 6.3 - 7.9 g/dL 05/02/2025 2:51 AM EDT [facility] Albumin, Plasma 2.8(L) 3.5 - 5.2 g/dL 05/02/2025 2:51 AM EDT [facility] AST, Plasma 241(H) 10 - 50 U/L 05/02/2025 2:51 AM EDT [facility] ALT, Plasma 23 10 - 50 U/L 05/02/2025 2:51 AM EDT [facility] Alkaline Phosphatase, Plasma 200(H) 40 - 115 U/L 05/02/2025 2:51 AM EDT [facility] Total Bilirubin, Plasma 2.6(H) 0.2 - 1.1 mg/dL 05/02/2025 2:51 AM EDT [facility] eGFRcr 95.6 mL/min/1.7 3m*2 05/02/2025 2:51 AM EDT [facility] Comment:Reported eGFRcr in m L/min/1.73m2 is based the CKD-EPI 2020 equation that does not use a race coefficient. Blood Venous blood specimen / Unknown Venipuncture / Unknown 05/02/2025 2:07 AM EDT 05/02/2025 2:20 AM EDT us Lexi Crane APRN LAB BLOOD ORDERABLES Final Re sult [facility] [address] [place] [address] * (ABNORMAL) CBC and differential (05/02/2025 2:07 AM EDT) WBC Count 6.14 3.70 - 10.30 10*3/uL LAB HEMATOLOGY METHOD 05/02/2025 2:31 AM EDT [facility] RBC Count 4.15(L) 4.60 - 6.10 10*6/uL LAB HEMATOLOGY METHOD 05/02/2025 2:31 AM EDT [facility] HGB 13.3(L) 13.7 - 17.5 g/dL LAB HEMATOLOGY METHOD 05/02/2025 2:31 AM EDT [facility] HCT 39.3(L) 40.0 - 51.0 % LAB HEMATOLOGY METHOD 05/02/2025 2:31 AM EDT [facility] Platelet Count 126(L) 155 - 369 10*3/uL LAB HEMATOLOGY METHOD 05/02/2025 2:31 AM EDT [facility] MCV 95 79 - 98 fL LAB HEMATOLOGY METHOD 05/02/2025 2:31 AM EDT [facility] MCH 32.0 26.0 - 32.0 pg LAB HEMATOLOGY METHOD 05/02/2025 2:31 AM EDT [facility] MCHC 33.8 30.7 - 35.5 g/dL LAB HEMATOLOGY METHOD 05/02/2025 2:31 AM EDT [facility] RDW 15.1(H) 11.5 - 14.5 % LAB HEMATOLOGY METHOD 05/02/2025 2:31 AM EDT [facility] MPV 11.9 8.8 - 12.5 fL LAB HEMATOLOGY METHOD 05/02/2025 2:31 AM EDT [facility] nRBC 0.0 <=0.0 per 100 WBCs LAB HEMATOLOGY METHOD 05/02/2025 2:31 AM EDT [facility] Differential Type Automated LAB HEMATOLOGY METHOD 05/02/2025 2:31 AM EDT [facility] Neutrophils % 65 % LAB HEMATOLOGY METHOD 05/02/2025 2:31 AM EDT [facility] Lymphocytes % 20 % LAB HEMATOLOGY METHOD 05/02/2025 2:31 AM EDT [facility] Monocytes % 13 % LAB HEMATOLOGY METHOD 05/02/2025 2:31 AM EDT [facility] Eosinophils % 1 % LAB HEMATOLOGY METHOD 05/02/2025 2:31 AM EDT [facility] Basophils % 0 % LAB HEMATOLOGY METHOD 05/02/2025 2:31 AM EDT [facility] Immature Granulocytes % 1 % LAB HEMATOLOGY METHOD 05/02/2025 2:31 AM EDT [facility] Neutrophils Absolute 4.00 1.60 - 6.10 10*3/uL LAB HEMATOLOGY METHOD 05/02/2025 2:31 AM EDT [facility] Lymphocytes Absolute 1.22 1.20 - 3.90 10*3/uL LAB HEMATOLOGY METHOD 05/02/2025 2:31 AM EDT [facility] Monocytes Absolute 0.79 0.30 - 0.90 10*3/uL LAB HEMATOLOGY METHOD 05/02/2025 2:31 AM EDT [facility] Eosinophils Absolute 0.07 0.00 - 0.50 10*3/uL LAB HEMATOLOGY METHOD 05/02/2025 2:31 AM EDT [facility] Basophils Absolute 0.02 0.00 - 0.10 10*3/uL LAB HEMATOLOGY METHOD 05/02/2025 2:31 AM EDT [facility] Immature Granulocytes Absolute 0.04 0.00 - 0.06 10*3/uL LAB HEMATOLOGY METHOD 05/02/2025 2:31 AM EDT [facility] Blood Venous blood specimen / Unknown Venipuncture / Unknown 05/02/2025 2:07 AM EDT 05/02/2025 2:20 AM EDT Narrative [facility] - 05/02/2025 2:31 AM EDT Therapeutic decision making should be based on absolute values, rather than percentages. us Lexi Crane APRN LAB BLOOD ORDERABLES Final Re sult [facility] [address] [place] [address] * US Abdomen RUQ (05/01/2025 7:43 PM [...] portal vein with antegrade flow. Procedure Note Vanessa Reid MD - 05/01/2025 CLINICAL INDICATION: concern for [...] 05/01/2025 8:40 PM Final report signed by Vanesas Reid MD on 05/01/2025 8:43 PM Willy Saleh MD [facility] PROCEDURES Final Result * Type and [...] TEST ORDERABLES Final Result BLOOD BANK [address] [place] [address], [place] * (ABNORMAL) Lactic acid, venous (05/01/2025 5:54 PM EDT) Lactate, Venous, Whole Blood 2.5(H) 0.5 - 2.2 mmol/L LAB HEMATOLOGY METHOD 05/01/2025 6:12 PM EDT [facility] Blood Venous blood specimen / Unknown Venipuncture / Unknown 05/01/2025 5:54 PM EDT 05/01/2025 6:08 PM EDT Willy Saleh MD LAB BLOOD ORDERABLES Final Resu lt [facility] [address] [place] [address] * (ABNORMAL) Lipase (05/01/2025 5:54 PM EDT) Lipase, Plasma 11(L) 19 - 63 U/L 05/01/2025 6:22 PM EDT [facility] Blood Venous blood specimen / Unknown Venipuncture / Unknown 05/01/2025 5:54 PM EDT 05/01/2025 5:58 PM EDT Willy Saleh MD LAB BLOOD ORDERABLES Final Resu lt [facility] [address] [place] [address] * Magnesium (05/01/2025 5:54 PM EDT) Magnesium, Plasma 1.9 1.9 - 2.4 mg/dL 05/01/2025 6:22 PM EDT [facility] Blood Venous blood specimen / Unknown Venipuncture / Unknown 05/01/2025 5:54 PM EDT 05/01/2025 5:58 PM EDT Willy Saleh MD LAB BLOOD ORDERABLES Final Resu lt [facility] [address] [place] [address] * (ABNORMAL) CMP (05/01/2025 5:54 PM EDT) Glucose, Plasma 93 74 - 99 mg/dL 05/01/2025 6:22 PM EDT [facility] BUN, Plasma 16 8 - 23 mg/dL 05/01/2025 6:22 PM EDT [facility] Creatinine, Plasma 0.82 0.70 - 1.20 mg/dL 05/01/2025 6:22 PM EDT [facility] BUN/Creatinine Ratio 20 05/01/2025 6:22 PM EDT [facility] Sodium, Plasma 137 136 - 145 mmol/L 05/01/2025 6:22 PM EDT [facility] Potassium, Plasma 4.0 3.6 - 4.9 mmol/L 05/01/2025 6:22 PM EDT [facility] Chloride, Plasma 101 97 - 107 mmol/L 05/01/2025 6:22 PM EDT [facility] CO2, Plasma 22 22 - 29 mmol/L 05/01/2025 6:22 PM EDT [facility] Anion Gap 14 6 - 16 mmol/L 05/01/2025 6:22 PM EDT [facility] Total Calcium, Plasma 8.7(L) 8.9 - 10.2 mg/dL 05/01/2025 6:22 PM EDT [facility] Total Protein 6.6 6.3 - 7.9 g/dL 05/01/2025 6:22 PM EDT [facility] Albumin, Plasma 2.7(L) 3.5 - 5.2 g/dL 05/01/2025 6:22 PM EDT [facility] AST, Plasma 248(H) 10 - 50 U/L 05/01/2025 6:22 PM EDT [facility] ALT, Plasma 22 10 - 50 U/L 05/01/2025 6:22 PM EDT [facility] Alkaline Phosphatase, Plasma 208(H) 40 - 115 U/L 05/01/2025 6:22 PM EDT [facility] Total Bilirubin, Plasma 2.2(H) 0.2 - 1.1 mg/dL 05/01/2025 6:22 PM EDT [facility] eGFRcr 96.3 mL/min/1.7 3m*2 05/01/2025 6:22 PM EDT [facility] Comment:Reported eGFRcr in m L/min/1.73m2 is based the CKD-EPI 2020 equation that does not use a race coefficient. Blood Venous blood specimen / Unknown Venipuncture / Unknown 05/01/2025 5:54 PM EDT 05/01/2025 5:58 PM EDT Willy Saleh MD LAB BLOOD ORDERABLES Final Resu lt Performing Organization Address [facility] Co de Phone Number [facility] [address] [place] [address] * (ABNORMAL) PT-INR (05/01/2025 5:54 PM EDT) Prothrombin Time 14.4(H) 12.0 - 14.3 sec 05/01/2025 6:13 PM EDT [facility] INR 1.1 0.9 - 1.1 05/01/2025 6:13 PM EDT [facility] Blood Venous blood specimen / Unknown Venipuncture / Unknown 05/01/2025 5:54 PM EDT 05/01/2025 5:58 PM EDT Narrative [facility] - 05/01/2025 6:13 PM EDT OPTIMAL INR RANGES FOR PATIENT ON ORAL ANTICOAGULANT THERAPY Prevention of venous thromboembolism INR 2.0 to 3.0 In patients with heart disease: Atrial fibrillation INR 2.0 to 3.0 Valvular heart disease INR 2.0 to 3.0 Tissue heart valves INR 2.0 to 3.0 Mechanical prosthetic valves INR 2.5 to 3.5 Prevention of recurrent NV INR 2.5 to 3.5 Willy Saleh MD LAB BLOOD ORDERABLES Final Resu lt Performing Organization Address City/[facility]/ZIP Co de Phone Number [facility] [address] [place] [address] * (ABNORMAL) CBC w/diff (05/01/2025 5:54 PM EDT) WBC Count 6.23 3.70 - 10.30 10*3/uL LAB HEMATOLOGY METHOD 05/01/2025 6:05 PM EDT [facility] RBC Count 4.08(L) 4.60 - 6.10 10*6/uL LAB HEMATOLOGY METHOD 05/01/2025 6:05 PM EDT [facility] HGB 13.2(L) 13.7 - 17.5 g/dL LAB HEMATOLOGY METHOD 05/01/2025 6:05 PM EDT [facility] HCT 37.8(L) 40.0 - 51.0 % LAB HEMATOLOGY METHOD 05/01/2025 6:05 PM EDT [facility] Platelet Count 118(L) 155 - 369 10*3/uL LAB HEMATOLOGY METHOD 05/01/2025 6:05 PM EDT [facility] MCV 93 79 - 98 fL LAB HEMATOLOGY METHOD 05/01/2025 6:05 PM EDT [facility] MCH 32.4(H) 26.0 - 32.0 pg LAB HEMATOLOGY METHOD 05/01/2025 6:05 PM EDT [facility] MCHC 34.9 30.7 - 35.5 g/dL LAB HEMATOLOGY METHOD 05/01/2025 6:05 PM EDT [facility] RDW 15.0(H) 11.5 - 14.5 % LAB HEMATOLOGY METHOD 05/01/2025 6:05 PM EDT [facility] MPV 11.1 8.8 - 12.5 fL LAB HEMATOLOGY METHOD 05/01/2025 6:05 PM EDT [facility] nRBC 0.0 <=0.0 per 100 WBCs LAB HEMATOLOGY METHOD 05/01/2025 6:05 PM EDT [facility] Differential Type Automated LAB HEMATOLOGY METHOD 05/01/2025 6:05 PM EDT [facility] Neutrophils % 59 % LAB HEMATOLOGY METHOD 05/01/2025 6:05 PM EDT [facility] Lymphocytes % 21 % LAB HEMATOLOGY METHOD 05/01/2025 6:05 PM EDT [facility] Monocytes % 16 % LAB HEMATOLOGY METHOD 05/01/2025 6:05 PM EDT [facility] Eosinophils % 2 % LAB HEMATOLOGY METHOD 05/01/2025 6:05 PM EDT [facility] Basophils % 1 % LAB HEMATOLOGY METHOD 05/01/2025 6:05 PM EDT [facility] Immature Granulocytes % 1 % LAB HEMATOLOGY METHOD 05/01/2025 6:05 PM EDT [facility] Neutrophils Absolute 3.70 1.60 - 6.10 10*3/uL LAB HEMATOLOGY METHOD 05/01/2025 6:05 PM EDT [facility] Lymphocytes Absolute 1.33 1.20 - 3.90 10*3/uL LAB HEMATOLOGY METHOD 05/01/2025 6:05 PM EDT [facility] Monocytes Absolute 0.98(H) 0.30 - 0.90 10*3/uL LAB HEMATOLOGY METHOD 05/01/2025 6:05 PM EDT [facility] Eosinophils Absolute 0.13 0.00 - 0.50 10*3/uL LAB HEMATOLOGY METHOD 05/01/2025 6:05 PM EDT [facility] Basophils Absolute 0.04 0.00 - 0.10 10*3/uL LAB HEMATOLOGY METHOD 05/01/2025 6:05 PM EDT [facility] Immature Granulocytes Absolute 0.05 0.00 - 0.06 10*3/uL LAB HEMATOLOGY METHOD 05/01/2025 6:05 PM EDT [facility] Blood Venous blood specimen / Unknown Venipuncture / Unknown 05/01/2025 5:54 PM EDT 05/01/2025 5:58 PM EDT Narrative [facility] - 05/01/2025 6:05 PM EDT Therapeutic decision making should be based on absolute values, rather than percentages. us Willy Saleh MD LAB BLOOD ORDERABLES Final Resu lt [facility] [address] [place] [address] * EKG now - STAT (adult) (05/01/2025 5:43 PM EDT) EKG DIAGNOSIS CLASS Abnormal MUSE ECG Ventricular Rate 70 BPM MUSE ECG Atrial Rate 70 BPM MUSE ECG MN Interval 138 ms MUSE ECG QRSD Interval 86 ms MUSE ECG QT Interval 414 ms MUSE ECG QTC Interval 447 ms MUSE ECG P Melrose 50 degrees MUSE ECG R Melrose -53 degrees MUSE ECG T Wave Melrose 43 degrees MUSE ECG Diagnosis Normal sinus rhythm with sinus arrhythmia MUSE ECG Diagnosis Left axis deviation MUSE ECG Diagnosis Anterior infarct , age undetermined MUSE ECG Diagnosis T wave abnormality, consider lateral ischemia MUSE ECG Diagnosis MUSE ECG Diagnosis MUSE ECG Diagnosis Confirmed by Jordyn Pompa ([id number]) on 05/02/2025 3:24:55 PM MUSE ECG 05/01/2025 [...] 05/04/2025 12:29 PM EDT 4.01 millicuries Tiotropium Elim Monohydrate (Spiriva Respimat) 2.5 MCG/ACT inhaler 2 [...] Poe RN) 09 (Medication Applied - Provider: Kiim Romero RN) piperacillin-tazobactam (Zosyn) 4.5 g in [...] Poe, NIURKA)1405 (New Bag - Provider: Esme Poe, NIURKA) potassium chloride CR (Klor-Con) ER tablet 40 [...] - Reason: See Provider Order - Comment: Jewels Will said not to give) sodium chloride 0.9 [...] 1229 (Given - Provider: Eliseo Cueva) Tiotropium Elim Monohydrate (Spiriva Respimat) 2.5 MCG/ACT inhaler 2 [...] Karen Avila) 1405 (Given - Provider: Esme Poe RN)2259 (Given - Provider: Anne Bettencourt RN) 1336 (Given - Provider: Jayy Benítez RN) HYDROmorphone (Dilaudid) tablet 3 mg 3 mg, Oral, Every 4 hours PRN, Starting on Wed05/02/25 at 0233, Until 05/05/25 at 1719, Routine, severe pain 1615 (Given - Provider: Esme Poe RN - Comment: Ok to give per MD) 1627 (Given - Provider: Esme Poe RN)2032 (Given - Provider: Anne Bettencourt RN) 0053 [...] care Linked Groups Order Group 1: Tiotropium Elim Monohydrate (Spiriva Respimat) 2.5 MCG/ACT inhaler 2 [...] documented as of this encounter Care Teams 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
[2025-05-31] VITALS (8 sets, daily range): BP systolic 112–140; BP diastolic 52–99; PULSE 79–93; RESP 11–20; TEMP 36.6–36.7; O2SAT 95–100; BMI 19.9
--- OUTSIDE RECORDS SUMMARY | 2025-05-31 13:28 | XMS_ITS | Encounter Summary ---
Author Organization [place] [address] Care Team Providers Care Parts Salesperson Name Role Phone Jan Sin MD Unavailable [phone] Macario Pryor MD Unavailable Unavailabl e Cr Resendez MD Primary Care Provider [phone] Reason for Visit * Reason Comments Medication Refill Encounter Details Date Type Department Care Team (Late st Contact Info) Description 04/26/2025 Refill SEP Luis [facility] [place] [address] Cr Resendez MD [address] [place] [address] [place] [address] Medication Refill Social History Tobacco Use Types [...] Refills Last Filled Start Date End Date fluticasone-umecli din-vilanter (TRELEGY ELLIPTA) 100-62.5-25 mcg Inhl Disk with DeviceIndications: Chronic bronchitis, unspecified chronic bronchitis type (HCC) Inhale 1 Puff into the lungs daily at 0900. 180 Each 1 04/26/2025 clopidogreL (PLAVIX) 75 mg Oral Tablet Take 1 Tablet by mouth once daily 30 Tablet 04/26/2025 05/31/2025 documented in this encounter Miscellaneous Notes * Telephone Encounter - Ariel Minaya CPhT - 04/26/2025 2:02 PM EDT AMELIE Future Visit: na Last Assessed Visit: 04/23/25 Follow-Up: 10/24/25 All protocols passed. Refills approved and sent to requesting pharmacy. [place] [facility] an appointment is needed. clopidogreL There [...] Discontinue Reason Start Date End Da te jshemcdiydw-rkgtfkhml-swy anter (TRELEGY ELLIPTA) 100-62.5-25 mcg Inhl Disk [...] documented as of this encounter Care Teams Parts Salesperson Relationship Specialty Start Date End Date Macario Pryor MD [address] [place] [address] [place] [address] PCP - Hematology/Oncology Internal Medicine-Medical Oncology 11/12/15 Cr Resendez MD [address] [place] [address] [place] MARTINEZ [address] PCP - General Family Medicine 11/24/21 Jan Sin MD [address] [place] [address] [place] [address] Internal Medicine-Cardiovascul ar Disease 08/28/14 documented as of this encounter
--- OUTSIDE RECORDS SUMMARY | 2025-05-31 13:29 | XMS_ITS | Encounter Summary ---
Author Organization [place] [address] Care Team Providers Care Fiberglass Product Tester Name Role Phone Jan Sin MD Unavailable [phone] Macario Pryor MD Unavailable Unavailabl e Cr Resendez MD Primary Care Provider [phone] Encounter Details Date Type Department Care Team (Latest Contact Info) Description 04/24/2025 Results Follow-Up SEP Luis [address] [place] [address] Cr Resendez MD [address] [place] [address] [place] [address] HEMOGLOBIN A1C, COMPREHENSIVE METABOLIC PANEL, CBC [...] were little bit elevated but [facility]. A1c was slightly elevated in [...] documented as of this encounter Care Teams Fiberglass Product Tester Relationship Specialty Start Date End Date Macario Pryor MD [address] [place] [address] [place] [address] PCP - Hematology/Oncology Internal Medicine-Medical Oncology 11/12/15 Cr Resendez MD [address] [place] [address] [place] [address] PCP - General Family Medicine 11/24/21 Jan Sin MD [address] [place] [address] [place] [address] Internal Medicine-Cardiovascul ar Disease 08/28/14 documented as of this encounter
--- OUTSIDE RECORDS SUMMARY | 2025-05-31 13:29 | XMS_ITS | Encounter Summary ---
Author Organization Healthcare Address [address] [place] [address] Care Team Providers Care Sharepoint Manager Name Role Phone Isabella Saucedo APRN Unavailable [phone] Jeannie Mcmillan RN Unavailable [phone] Ebony Shoemaker Unavailable [phone] Pcp, No Primary Care Provider Unavailabl e Rodney Gonzáles MD Unavailable [phone] Reason for Referral * Consultation (Routine) - Authorized Specialty Diagnoses / Procedures Referred By Contarjun t Referred To Contact Hematology and Oncology Diagnoses Elevated alpha fetoprotein Liver tumor Isabella Saucedo APRN [address] [place] [address] Phone: tel: fax: Referral ID Status Reason Start Date Expiration Date Visits Requested Visits Authorized [id number] Authorized Specialty Services Required 02/20/2025 08/22/2026 1 1 Encounter Details Date Type Department Care Team (Late st Contact Info) Description 02/19/2025 [facility] [address] [place] [address] Isabella Saucedo APRN [address] [place] [address] [place] [address] Elevated alpha fetoprotein (Primary Dx); Liver tumor [...] documented as of this encounter Care Teams Sharepoint Manager Relationship Specialty Start Date End Date Pcp, No [address] [place] [address] PCP - General Family Medicine 03/20/25 Isabella Saucedo APRN 1210 [facility] [address] [place] [address] Referring Physician 02/26/25 Jeannie Mcmillan, RN [facility] [address] [place] [address] Registered Nurse Transplant Surgery 03/08/25 [place] [address] Registered Nurse Transplant Surgery 03/08/25 Rodney Gonzáles MD 1210 [facility] [address] [place] [address] Medical Oncologist 04/10/25 documented as of this encounter
--- OUTSIDE RECORDS SUMMARY | 2025-05-31 13:29 | XMS_ITS | Encounter Summary ---
Author Organization Healthcare Address [address] [place] [address] Care Team Providers Care Software Project Lead Name Role Phone Isabella Saucedo Phong BASIN OPERATOR Unavailable [phone] Jeannie Mcmillan RN Unavailable [phone] Ebony Shoemaker Unavailable [phone] Pcp, No Primary Care Provider Unavailabl e Rodney Gonzáles MD Unavailable [phone] Encounter Details Date Type Department Care Team (Late st Contact Info) Description 01/04/2025 Orders Only External Location [address] [place] [address] Provider, External Social History Tobacco Use Types [...] documented as of this encounter Care Teams Software Project Lead Relationship Specialty Start Date End Date Pcp, No [address] [place] [id number] PCP - General Family Medicine 03/20/25 Isabella Saucedo APRN [address] [facility] [address] [place] [address] Referring Physician 02/26/25 Jeannie Mcmillan, RN [facility] [facility] [address] [place] [address] Registered Nurse Transplant Surgery 03/08/25 [place] [address] Registered Nurse Transplant Surgery 03/08/25 Rodney Gonzáles MD 1210 [facility] [address] [place] [address] Medical Oncologist 04/10/25 documented as of this encounter
--- OUTSIDE RECORDS SUMMARY | 2025-05-31 13:29 | XMS_ITS | Encounter Summary ---
Author Organization Healthcare Address [address] [place] [address] Care Team Providers Care Cement Finisher Name Role Phone Isabella Saucedo Phong FITNESS MANAGER Unavailable [phone] Jeannie Mcmillan RN Unavailable [phone] Ebony Shoemaker Unavailable [phone] Pcp, No Primary Care Provider Unavailabl e Rodney Gonzáles MD Unavailable [phone] Encounter Details Date Type Department Care Team (Late st Contact Info) Description 05/01/2025 Orders Only External Location [address] [place] [id number] Chris Lazo MD [address] [address] Social History Tobacco Use Types [...] were you homeless or living in a half-way (including now)? No 05/02/2025 [facility] Utilities Answer Date Recorded In [...] documented as of this encounter Care Teams Cement Finisher Relationship Specialty Start Date End Date Pcp, No [address] [place] [address] PCP - General Family Medicine 03/20/25 Isabella Saucedo APRN [address] [place] [address] [address] [place] [address] Referring Physician 02/26/25 Jeannie Mcmillan, NIURKA [facility] [address] [place] [address] Registered Nurse Transplant Surgery 03/08/25 [place] [address] Registered Nurse Transplant Surgery 03/08/25 Rodney Gonzáles MD 1210 [facility] [address] [place] [address] Medical Oncologist 04/10/25 documented as of this encounter
--- OUTSIDE RECORDS SUMMARY | 2025-05-31 13:29 | XMS_ITS | Encounter Summary ---
Author Organization Healthcare Address [address] [place] [address] Care Team Providers Care Caster Helper Name Role Phone Isabella Saucedo Phong OPERATIONS ARCHITECT Unavailable [phone] Jeannie Mcmillan RN Unavailable [phone] Ebony Shoemaker Unavailable [phone] Pcp, No Primary Care Provider Unavailabl e Rodney Gonzáles MD Unavailable [phone] Encounter Details Date Type Department Care Team (Late st Contact Info) Description 05/01/2025 Orders Only External Location [address] [place] [address] Suresh Bates MD 1210 [facility] [address] [place] [address] Social History Tobacco Use Types Packs/Day Years [...] in a snf (including now)? No 05/02/2025 [facility] Utilities Answer Date Recorded In [...] Date of Assessment Author No Risk Indicated 05/02/2025 4:00 PM EDT Jayy Kilgore RN * Question Answer Date of Assessment Author 1. Wish to be (Past 1 Month) No 025 4:00 PM IRAIST Jayy Benítez, NIURKA 2. Non-Specific Active Suici heriberto Thoughts (Past 1 Month) No 05/02/2025 4:00 PM EDT Isabelle Benítez RN 6. Suicidal Behavior (Lifetime) No 4:00 PM EDT Jayy Benítez, NIURKA documented as of this encounter Plan of Treatment Not on file documented as of this encounter Procedures Procedure Name Priority Date/Time Associated Diagnosis Comments US OUTSIDE IMAGES 05/01/2025 9:27 AM EDT documented in this encounter Results * US OUTSIDE IMAGES (05/01/2025 9:27 AM EDT) Anatomical Region Laterality Modality Ultrasound 05/01/2025 9:27 AM EDT us Suresh Bates MD IMG US PROCEDURES Edited Result - Final documented in this encounter Visit Diagnoses Not [...] documented as of this encounter Care Teams Caster Helper Relationship Specialty Start Date End Date Pcp, No [address] [place] [address] PCP - General Family Medicine 03/20/25 Isabella Saucedo APRN 1210 [facility] [address] [place] [address] Referring Physician 02/26/25 Jeannie Mcmillan, NIURKA [facility] [address] [place] [address] Registered Nurse Transplant Surgery 03/08/25 Ebony Shoemaker [place] [phone] Registered Nurse Transplant Surgery 03/08/25 Rodney Gonzáles MD 1210 [facility] [address] [place] [address] Medical Oncologist 04/10/25 documented as of this encounter
--- OUTSIDE RECORDS SUMMARY | 2025-05-31 13:29 | XMS_ITS | Encounter Summary ---
Author Organization Healthcare Address [address] [place] [address] Care Team Providers Care Ranch Supervisor Name Role Phone Isabella Saucedo Phong RHIC SYSTEMS SAFETY ENGINEER Unavailable [phone] Jeannie Mcmillan RN Unavailable [phone] Ebony Shoemaker Unavailable [phone] Pcp, No Primary Care Provider Unavailabl e Rodney Gonzáles MD Unavailable [phone] Encounter Details Date Type Department Care Team (Late st Contact Info) Description 01/12/2025 Orders Only External Location [address] [place] [address] Provider, External Social History Tobacco Use Types [...] documented as of this encounter Care Teams Ranch Supervisor Relationship Specialty Start Date End Date Pcp, [place] [address] PCP - General Family Medicine 03/20/25 Isabella Saucedo APRN [address] [facility] [address] [place] [address] Referring Physician 02/26/25 Jeannie Mcmillan, RN [facility] [facility] [address] [place] [address] Registered Nurse Transplant Surgery 03/08/25 Ebony Shoemaker [place] [id number] Registered Nurse Transplant Surgery 03/08/25 Rodney Gonzáels MD 1210 [facility] [address] [place] [address] Medical Oncologist 04/10/25 documented as of this encounter
--- OUTSIDE RECORDS SUMMARY | 2025-05-31 13:29 | XMS_ITS | Encounter Summary ---
Author Organization [place] [address] Care Team Providers Care Sports Health Club Membership Advisors Name Role Phone Jan Sin MD Unavailable [phone] Macario Pryor MD Unavailable Unavailabl e Cr Resendez MD Primary Care Provider [phone] Reason for Visit * Reason Comments Medication Refill Encounter Details Date Type Department Care Team (Late st Contact Info) Description 05/30/2025 Refill SEP Luis [facility] [address] Cr Resendez MD [address] [place] [address] [address] [place] [id number] Medication Refill Social History Tobacco Use Types [...] Tablet by mouth once daily 30 Tablet 05/31/2025 documented in this encounter Plan of Treatment [...] Take 1 Tablet by mouth once daily 04/26/2025 05/31/2025 documented as of this encounter Additional Health Concerns Assessment Noted Time PHQ-9 Depression Total Score: 15 025 8:00 AM EDT A fall risk assessment has been complete d for the patient 06/20/2024 1:28 PM EDT PHQ-2 Depression Total Score: 3 04/23/20 25 8:00 AM EDT documented as of this encounter Care Teams Sports Health Club Membership Advisors Relationship Specialty Start Date End Date Macario Pryor MD [address] [place] [address] [place] [address] PCP - Hematology/Oncology Internal Medicine-Medical Oncology 11/12/15 Cr Resendez MD [address] [place] [address] [place] [address] PCP - General Family Medicine 11/24/21 Jan Sin MD [address] [place] [place] [address] [place] [address] Internal Medicine-Cardiovascul ar Disease 08/28/14 documented as of this encounter
--- OUTSIDE RECORDS SUMMARY | 2025-05-31 13:29 | XMS_ITS | Encounter Summary ---
Author Organization Healthcare Address [address] [place] [address] Care Team Providers Care Golf Coach Name Role Phone LewisBereniceIsabella J FELLMONGERY WORKER Unavailable [phone] Jeannie Mcmillan RN Unavailable [phone] Ebony Shoemaker Unavailable [phone] Pcp, No Primary Care Provider Unavailabl e Rodney Gonzáles MD Unavailable [phone] Encounter Details Date Type Department Care Team (Late st Contact Info) Description 05/30/2025 Orders Only External Location [address] [place] [address] Provider, External Social History Tobacco Use Types [...] any time in the past 12 m [facility], were you homeless or living in a chcf (including now)? No 05/02/2025 [facility] Utilities Answer Date Recorded In the [...] Priority Date/Time Associated Diagnosis Comments CT ABDOMEN OUTSIDE IMAGES 05/30/2025 11:34 AM EDT documented in this encounter Results * CT ABDOMEN OUTSIDE IMAGES (05/30/2025 11:34 AM EDT) Anatomical Region Laterality Modality Computed Tomogra phy 05/30/2025 11:3 4 AM EDT us External Provider IMG CT PROCEDURES Edited Resul t - Final documented in this encounter Visit Diagnoses Not on filedocumented in this encounter Additional Health Concerns Assessment Noted Time A fall risk assessment has been complete d for the patient 03/14/2025 9:07 AM EDT A Body Mass Index follow-up plan has been documented for the patient 05/05/2025 1:57 PM EDT documented as of this encounter Care Teams Golf Coach Relationship Specialty Start Date End Date Pcp, [place] [address] PCP - General Family Medicine 03/20/25 Isabella Saucedo APRN 1210 [facility] [address] [place] [address] Referring Physician 02/26/25 Jeannie Mcmillan, RN [facility] [address] [place] [address] Registered Nurse Transplant Surgery 03/08/25 [place] [address] Registered Nurse Transplant Surgery 03/08/25 Rodney Gonzáles MD 1210 [facility] [address] [place] [address] Medical Oncologist 04/10/25 documented as of this encounter
--- OUTSIDE RECORDS SUMMARY | 2025-05-31 13:29 | XMS_ITS | Encounter Summary ---
Author Organization Healthcare Address [address] [place] [address] Care Team Providers Care Feeder Catcher Name Role Phone Isabella Saucedo Phong FANCY NEEDLEWORKER Unavailable [phone] Jeannie Mcmillan RN Unavailable [phone] Ebony Shoemaker Unavailable [phone] Pcp, No Primary Care Provider Unavailabl e Rodney Gonzáles MD Unavailable Encounter Details Date Type Department Care Team (Late st Contact Info) Description 12/07/2024 Orders Only External Location [address] [place] [address] Provider, External Social History Tobacco Use Types [...] documented as of this encounter Care Teams Feeder Catcher Relationship Specialty Start Date End Date Pcp, No [address] [place], [place] [phone] PCP - General Family Medicine 03/20/25 Isabella Saucedo APRN 1210 [facility] [address] [place] [address] Referring Physician 02/26/25 Jeannie Mcmillan, RN [facility] [address] [place] [address] Registered Nurse Transplant Surgery 03/08/25 Ebony Shoemaker [place] [id number] Registered Nurse Transplant Surgery 03/08/25 Rodney Gonzáles MD 1210 [facility] [address] [place] [address] Medical Oncologist 04/10/25 documented as of this encounter
--- OUTSIDE RECORDS SUMMARY | 2025-05-31 13:29 | XMS_ITS | Clinical Summary ---
Author Organization [facility] Address [facility] [place] [address] Care Team Providers Care Casting Agent Name Role Phone Cr Resendez MD Primary Care Provider [phone] Source Comments This information has been disclosed [...] therelease of HIV test results or diagnoses. [id number] Health Allergies Active Allergy Reactions Criticality [...] PM EDT Active naloxone (NARCAN) 4 mg/actuation [place] Apply 1 spray in one nostril if [...] later at [facility] with grafts 2009 Social History Tobacco Use Types Packs/Day Years Used Date Smoking Tobacco: Some Days Cigarettes Passive Smoke Exposure: Current Tobacco Cessation:Ready to Q uit: Not Asked; Counseling Given: Not Answered Utilities Answer Date Recorded In the past 12 months has th e Cardiorobotics, gas, oil, or water [employer] threatened to shut off services in your [...] time in the past 12 m [facility], were you homeless or living in a penitentiary (including now)? Patient declined 12/07/2024 Sex and [...] 05/08/2019, 07/18/2012 Medical Devices Implanted Type Area Splicing Technician Device Identifier Shelf Expiration Date Model / Serial / Lot Cage Spnl 6mm 8d Sm Eit Crv Intrbd Fs Strl Lf - [id number] Implanted:Qty: 1 on 12/11/2024 by Nayan Mayo MD at [facility] Main Cage N/A: Spine Cervical DEPUY SPINE 02/26/2026 [id number] / / Graft Bn Bn Fbr 1cc Algrf Frzdr Pliafx [facility] - [id number] Implanted:Qty: 1 on 12/11/2024 by Nayan Mayo MD at [facility] Main Graft N/A: Spine Cervical LIFE NET 02/21/2028 [id number] / [id number] / Icd ICD [employer] D233 / / Description:[place]ava RA: [id number] 200M RV: [id number] NOT MR CONDITIONAL OF 12/07/2024 - 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 SCS Plate Bone [place] Titanium 14 Mm Prebent L12 Mm X W16 Mm X H2.5 Mm Spine Cervical Anterior 1 Level Nonsterile - [id number] Implanted:Qty: 1 on 12/11/2024 by Nayan Mayo MD at [facility] Main Plate N/A: Spine Cervical DEPUY SPINE [id number] 12 / / Screw Bone [place] Titanium L16 Mm Od4 Mm Spine Cervical Anterior Variable Self Drill Nonsterile - [id number] Implanted:Qty: 4 on 12/11/2024 by Nayan Mayo MD at [facility] Main Screw N/A: Spine Cervical DEPUY SPINE -0 16 / / Procedures Procedure Name Priority Date/Time Associated Diagnosis Comments RENAL FUNCTION PANEL W/EGFR Routine 12/14/2024 7:00 AM EDT from Last 3 Months or Most Recently Relevant to Health Maintenance Results * (ABNORMAL) Renal Function Panel w/EGFR (12/14/2024 7:00 AM EDT) Sodium 136 133 - 146 mmol/L 12/14/2024 7:50 AM EDT [facility] Potassium 3.9 3.5 - 5.3 mmol/L 12/14/2024 7:50 AM EDT [facility] Chloride 102 98 - 110 mmol/L 12/14/2024 7:50 AM EDT [facility] CO2 27 21 - 33 mmol/L 12/14/2024 7:50 AM EDT [facility] Anion Gap 7 3 - 16 mmol/L 12/14/2024 7:50 AM EDT [facility] BUN 19 7 - 25 mg/dL 12/14/2024 7:50 AM EDT [facility] Creatinine 0.66 0.60 - 1.30 mg/dL 12/14/2024 7:50 AM EDT [facility] Glucose 126(H) 70 - 100 mg/dL 12/14/2024 7:50 AM EDT [facility] Calcium 8.3(L) 8.6 - 10.3 mg/dL 12/14/2024 7:50 AM EDT [facility] Phosphorus 2.7 2.1 - 4.5 mg/dL 12/14/2024 7:50 AM EDT [facility] Albumin 2.7(L) 3.5 - 5.7 g/dL 12/14/2024 7:50 AM EDT [facility] Osmolality, Calculated 286 278 - 305 mOsm/kg 12/14/2024 7:50 AM EDT [facility] EGFR >90 12/14/2024 7:50 AM EDT [facility] Comment: As of 2021, the [...] City/State/[facility] Co de Phone Number [facility] [address] from Last 3 Months or Most Recently Relevant to Health Maintenance Insurance MEDICARE A AND B MEDICAID [place] MEDICAID DENTAL Advance Directives For more information, please contact: [phone] * Full Code (Latest Code Status on File) Date Activated Date Inactivated Comments 12/07/2024 12:02 AM 12/14/2024 8:22 PM Care Teams Casting Agent Relationship Specialty Start Date End Date Cr eRsendez MD [address] [place] [address] [place] [address] PCP - General Family Medicine 12/07/24
--- OUTSIDE RECORDS SUMMARY | 2025-05-31 13:29 | XMS_ITS | Clinical Summary ---
[facility] Organization [facility] Address [address] [place] [address] Phone Care Team Providers Care Vise Hand Name Role Phone Jan Sin MD Unavailable [phone] Macario Pryor MD Unavailable [facility] MD Primary Care Provider [phone] Allergies Active Allergy Reactions Criticality Noted Date [...] 25 Active nalOXone (NARCAN) 4 mg/actuation Nasl [place], Non-Aerosol 0.1 mL by Nasal route daily [...] 0900. 180 Each 1 04/26/20 25 Active clotrimazole (LOTRIMIN) 1 % Top CreamIndications: Candidiasis of penis Apply topically 2 times daily. 30 g 05/18/20 25 Active clopidogreL (PLAVIX) 75 mg Oral Tablet Take 1 Tablet by mouth once daily 30 Tablet 05/31/20 25 Active clotrimazole (LOTRIMIN) 1 % Top CreamIndications: Candidiasis of penis Apply topically 2 times daily. 24 g 12/28/19 25 025 Discontinued clopidogreL (PLAVIX) 75 mg Oral Tablet Take 1 Tablet by mouth once daily 30 Tablet 04/26/20 25 025 Discontinued Active Problems Patient Care Coordination No te Formatting of this note migh t be different from the original. csta, benzo soap contracts signed 04/19/12 [facility]05/01/15 #[id number] [facility] 12/12/15 ,02/28/16 [id number],04/09/16 [id number], 11/27/16 [facility] 06/08/14,12/12/15, 10/02/16 Problem Noted Date Diagnosed Date Hepatocellular carcinoma 04/23/2025 Assessment & Plan (04/23/2025 9:20 AM EDT): Under treatment with GI and oncology at [facility]. On once monthly chemotherapy at this time. [...] (12/01/2022): Added automatically from request for surgery [id number] Mixed simple and mucopurulent chronic bronchitis 11/26/2022 Assessment & Plan (04/23/2025 9:20 AM EDT): Stable on Trelegy continue current regiment Assessment & Plan (12/21/2024 9:37 AM EDT): Orders: BASIC METABOLIC PANEL; Future Assessment & Plan (09/07/2024 10:49 AM EST): Orders: eaoqepczmev-askgkzzkw-rbhmxrpu (TRELEGY ELLIPTA) 100-62.5-25 mcg Inhl Disk with [...] by Redo CABG 6 mo later at [facility] with 12/01/ patent grafts 2010 Unspecified essential hypertension Assessment [...] 07/04/2015 S/P coronary angiogram 08/31/201407/04 Overview (08/31/2014): [facility] 10/15/2009 four out of four grafts, [...] Encounters Date Type Department Care Team Description 05/31/2025 Abstract ABDULLAHI RODRIGUEZ [address] [place] [address] Cr Resendez MD 05/30/2025 Refill SEP Luis RODRIGUEZ [address] [place] [address] Cr Resendez MD Medication Refill 05/17/[address] [place] [address] Lorri Crespo APRN Medication Refill 05/05/2025 Nurse Triage [facility] Nurse [facility] [address] [place] [address] Alicia Jones RN 04/26/[address] [place] [address] Cr Resendez MD Medication Refill 04/24/2025 Results Follow-Up [address] [place] [address] Cr Resendez MD HEMOGLOBIN A1C, COMPREHENSIVE METABOLIC PANEL, CBC WITH DIFF, Additional followed-up results: 3 04/23/2025 9:30 AM EDT Clinical Support [address] [place] [address] Elizabeth Reynoso, RN Encounter for support and coordination of transition of care (Primary Dx) 04/23/2025 9:00 AM EDT Office Visit [address] [place] [address] Cr Resendez MD Encounter for Medicare annual wellness exam (Primary Dx); Hepatocellular carcinoma (HCC); Chronic systolic congestive heart failure (HCC); Mixed simple and mucopurulent chronic bronchitis (HCC); Unspecified essential hypertension; Screening for prostate cancer; Bilateral impacted cerumen 04/19/2025 Patient Outreach [address] [place], [place] [address] Cr Resendez MD Central Patient Navigator Outreach (AWV Questionnaire/) 03/26/[address] [place] [address] Cr Resendez MD Medication Refill from Last [...] maker CORONARY ANGIOPLASTY WITH STENT PLACEMENT 01/04/2024 [facility] NECK SURGERY 12/06/2024 [facility] Medical History Medical History Date Comments COPD (chronic obstructive pu lmonary disease) ([facility]) Shortness of breath Blood circulation, collateral fe et and hands get cold since cabg CAD (coronary artery disease) Hypertension MD (myocardial infarction) ([facility]) 4 times Arthritis Headache(784.0) Neuromuscular disorder ([facility]) lennox k and left leg Other [...] 1-dose series) 2018 COVID-19 Vaccine ( season) 2025 Influenza Vaccine (#1) 2025 , [...] Cheng MD Medical Devices Implanted Type Area Sales And Business Development Manager Device Identifier Shelf Expiration Date Model / Serial / Lot [employer] Vigilant ICD D233 / / [employer] Lead Lead 0675 / / [employer] [place] Lead Lead LPA 1200M / / Spinal Cord Stimulator Lead Description:pt has a retaine d spinal cord stimulator lead. generator was removed about 7-8 years ago per pt. - 09-24-2020 Procedures Procedure Name Priority Date/Time Associated Diagnosis Comments PT AND PTT- COMPUNET Routine 05/30/2025 CBC Routine 05/30/2025 URINALYSIS Routine 05/29/2025 AMMONIA LEVEL Routine 05/29/2025 COMPREHENSIVE METABOLIC PANEL Routine 05/29/2025 SCANNED LABS 05/27/2025 6:46 PM EDT SCANNED [...] Relevant to Health Maintenance Results * (ABNORMAL) PT AND PTT- COMPUNET (05/30/2025) PT 12.6 SECOND(S) SEP OFFICE INR 1.15(A) 0.9 - 1.1 SEP OFFICE 05/30/2025 us Historical Provider CNET-HEMATOLOGY ORDERABLES F inal Result SEP OFFICE * (ABNORMAL) CBC (05/30/2025) WBC 12.3 X10(3)/MCL SEP OFFICE RBC 4.77 4.50 - 5.90 X10(6)/MCL SEP OFFICE Hemoglobin 15.4 GM/DL SEP OFFICE Hematocrit 43.5 % SEP OFFICE MCV 91.2 82.0 - 108.0 FL SEP OFFICE MCH 32.3 26.0 - 34.0 PG SEP OFFICE MCHC 35 30 - 37 GM/DL SEP OFFICE RDW 22.3(A) 11.5 - 14.5 % SEP OFFICE Platelet 219 150 - 399 X10(3)/MCL SEP OFFICE Blood VENOUS BLOOD / Unknown 05/30/2025 Historical Provider HEMATOLOGY ORDERABLES Final Result Performing Organization Address [facility] de Phone Number SEP OFFICE * (ABNORMAL) URINALYSIS (05/29/2025) Color dark yellow SEP OFFICE Appearance clear SEP OFFICE pH, Urine 7.0 SEP search marketing analyst Grav, UA 1.010 1.001 - 1.035 G/DL SEP OFFICE Protein, Ur neg MG/DL SEP OFFICE Glucose, Urine 3+ SEP OFFICE UA Ketones Negative Negative POS/NEG SEP OFFICE Blood, UA neg POS/NEG SEP OFFICE UA Nitrite Negative Negative POS/NEG SEP OFFICE UA Bili Negative Negative SEP OFFICE UA Urobilinogen 4(A) Normal MG/DL SEP OFFICE WBC, UA neg /HPF SEP OFFICE Urine 05/29/2025 Historical Provider URINE ORDERABLES Final Resul t Performing Organization Address City/[facility] de Phone Number SEP OFFICE * AMMONIA LEVEL (05/29/2025) Ammonia <9 MCMOL/L SEP OFFICE Blood VENOUS BLOOD / Unknown 05/29/2025 Historical Provider CHEMISTRY ORDERABLES Final R esult Performing Organization Address [facility] de Phone Number SEP OFFICE * (ABNORMAL) COMPREHENSIVE METABOLIC PANEL (05/29/2025) Only the most recent of2 resultswithin the time period is included. Sodium 138 137 - 147 MMOL/L SEP OFFICE Potassium 3.5 3.4 - 5.3 MMOL/L SEP OFFICE Chloride 100 99 - 108 MMOL/L SEP OFFICE CO2 29 MMOL/L SEP OFFICE Anion Gap 12.5 MMOL/L SEP OFFICE BUN 18 4 - 21 MG/DL SEP OFFICE Creatinine 1.1 0.6 - 1.3 MG/DL SEP OFFICE GFR Afr Am 81 SEP OFFICE Estimated GFR 67 SEP OFFICE Glucose 146 60 - 200 MG/DL SEP OFFICE Calcium 9.20 8.70 - 10.70 MG/DL SEP OFFICE Bili Total 6.1 MG/DL SEP OFFICE AST 265(A) 14 - 40 IU/L SEP OFFICE ALT 79(A) 10 - 40 IU/L SEP OFFICE Total Protein 6.8 6.4 - 8.2 GM/DL SEP OFFICE Albumin 3.3 GM/DL SEP OFFICE Globulin 3.5 G/DL(CALC) SEP OFFICE Albumin/Globuli n Ratio 0.9 (CALC) SEP OFFICE Alk Phos 515(A) 25 - 125 IU/L SEP OFFICE Blood VENOUS BLOOD / Unknown 05/29/2025 us Historical Provider CHEMISTRY ORDERABLES Final R esult SEP OFFICE * SCANNED LABS (05/27/2025 6:46 PM EDT) Only the most recent of5 resultswithin the time period is included. 05/27/2025 6:46 PM EDT us Unknown Provider HEMATOLOGY ORDERABLES Final Res ult * LIPID PANEL REFLEX (04/23/2025 9:47 AM EDT) Cholesterol 98 <200 mg/dL 04/23/2025 4:37 PM EDT [facility] [employer] Comment: < 200 Desirable 200 - 239 Borderline High >= 240 High Triglyceride 38 <150 mg/dL 04/23/2025 4:37 PM EDT [facility] [employer] Comment: < 150 Normal 150 - 199 Borderline High 200 - 499 High >= 500 Very High HDL 40 >=40 mg/dL 04/23/2025 4:37 PM EDT [facility] [employer] Comment: > 60 Optimal 40 - 60 Acceptable < 40 Low LDL Calculated 47 <100 mg/dL 04/23/2025 4:37 PM EDT [facility] Comment: < 100 Optimal 100 - 129 Near or above optimal 130 - 159 Borderline High 160 - 189 High >= 190 Very High The National Institutes of Health (NIH) equation is used for all lipid panels that report calculated LDL (LDL-C). Non-HDL-C Calculated 58 <=129 mg/dL 04/23/2025 4:37 PM EDT [facility] Comment: <130 Desirable 130-159 Above Desirable 160-189 Borderline High 190-219 High >= 220 Very High Fasting Specimen? Yes None 025 4:37 PM EDT [facility] Blood VENOUS BLOOD / Unknown Venipuncture / Unknown 04/23/2025 9:47 AM EDT 04/23/2025 9:47 AM EDT Cr Resendez MD CHEMISTRY ORDERABLES Final Res ult Performing Organization Address [facility]/ZIP Co de Phone Number [facility] [address] [facility] , [place] [address] * TSH REFLEX TO FT4 (04/23/2025 9:47 AM EDT) TSH Reflex 0.889 0.270 - 4.200 mcIU/mL 04/23/2025 4:37 PM EDT [facility] Blood VENOUS BLOOD / Unknown Venipuncture / Unknown 04/23/2025 9:47 AM EDT 04/23/2025 9:47 AM EDT Narrative [facility] - 04/23/2025 4:37 PM EDT Ingestion of fernanda doses of biotin (>5 mg/day) taken within 8 hours of drawing blood sample can interfere with this immunoassay test. us Cr Resendez MD CHEMISTRY ORDERABLES Final Res ult Performing Organization Address [facility]/ZIP Co de Phone Number [facility] [address] , [place] [address] * PROSTATE SPECIFIC ANTIGEN (SCREENING) (04/23/2025 9:47 AM EDT) Total Psa 0.08 <=4.00 ng/mL 04/23/2025 3:49 PM EDT [facility] [employer] Blood VENOUS BLOOD / Unknown Venipuncture / Unknown 04/23/2025 9:47 AM EDT 04/23/2025 9:47 AM EDT Narrative [facility] [employer] - 04/23/2025 3:49 PM [...] Resendez MD CHEMISTRY ORDERABLES Final Res ult [facility] [employer] [address] [facility] , [place] [address] * (ABNORMAL) CBC WITH DIFF (04/23/2025 9:47 AM EDT) WBC 7.3 3.7 - 10.3 x10(3)/mcL 04/23/2025 4:08 PM EDT [facility] [employer] RBC 4.77 4.60 - 6.10 x10(6)/mcL 04/23/2025 4:08 PM EDT [facility] [employer] Hgb 15.3 13.7 - 17.5 g/dL 04/23/2025 4:08 PM EDT [facility] [employer] Hct 46.8 40.0 - 51.0 % 04/23/2025 4:08 PM EDT [facility] [employer] MCV 98.1 80.0 - 100.0 fL 04/23/2025 4:08 PM EDT [facility] [employer] MCH 32.1 26.0 - 34.0 pg 04/23/2025 [...] 4:08 PM EDT [facility] [place] # 1.2(H) 0.3 - 0.9 x10(3)/mcL 04/23/2025 4:08 PM EDT [facility] Eos # Manual 0.0 0.0 - 0.5 x10(3)/mcL 04/23/2025 4:08 PM EDT [facility] Baso # Manual 0.1 0.0 - 0.1 x10(3)/mcL 04/23/2025 4:08 PM EDT [facility] Polychrom Slight 04/23/2025 4:08 PM EDT [facility] [place] Cell Moderate 04/23/2025 4:08 PM EDT [facility] Elliptocyte Occasional 04/23/2025 4:08 PM EDT [facility] Target Cell Occasional 04/23/2025 4:08 PM EDT [facility] Blood VENOUS BLOOD / Unknown Venipuncture / Unknown 04/23/2025 9:47 AM EDT 04/23/2025 9:47 AM EDT Cr Resendez MD HEMATOLOGY ORDERABLES Final Re sult Performing Organization Address [facility] Co de Phone Number [facility] [address] , [place] [address] * (ABNORMAL) HEMOGLOBIN A1C (04/23/2025 9:47 AM EDT) Hgb A1C 5.7(H) 4.2 - 5.6 % 04/23/2025 5:18 PM EDT [facility] Est. Avg Glucose 117 mg/dL 04/23/2025 5:18 PM EDT [facility] Blood VENOUS BLOOD / Unknown Venipuncture / Unknown 04/23/2025 9:47 AM EDT 04/23/2025 9:47 AM EDT Narrative [facility] - 04/23/2025 5:18 PM [...] ORDERABLES Final Res ult Performing Organization Address [facility] Co de Phone Number [facility] [address] [facility] , [place] [address] * US AAA SCREENING EXAM MEDICARE (12/16/2023 [...] CLINICAL HISTORY: Z13.6-Encounter for screening for cardiovascular fxmppniah-LMC-36-CM. COMPARISON: CT abdomen pelvis from 09/07/2023 PROCEDURE COMMENTS: Routine sonographic evaluation of the abdominal aorta with group sales representative images sent to PACS along with manager enterprise notes. FINDINGS: The abdominal aorta is normal in caliber. Maximum transverse diameter is 2.4 cm. Atherosclerotic change in the aorta and iliac vessels noted unchanged from the recent CT Procedure Note Cr Ramachandran MD - 12/16/2023 US AAA SCREENING EXAM MEDICARE, 12/16/2023 9:55 AM CLINICAL HISTORY: Z13.6-Encounter for screening for cardiovascular vnokghfrl-ALB-30-CM. COMPARISON: CT abdomen pelvis from 09/07/2023 PROCEDURE COMMENTS: Routine sonographic evaluation of the abdominal aortawith group sales representative images sent to PACS along with manager enterprise notes. FINDINGS: The abdominal aorta is normal [...] of the ordering clinician. Cr Resendez MD [facility] ORDERABLES Final Result * [...] Pena MD Performing Provider Raymond Harris RN Treasury Associate Gurvinder Garner MD Anesthesiologist Mary Jo Romero [...] PATHOLOGY TISSUE REQUEST Casper Pena MD 01/13/2023 6095 2 : sigmoid colon polyp via cold snare Tissue Large Intestine, Sigmoid Colon PATHOLOGY TISSUE REQUEST Casper Pena MD 01/13/2023 1303 us Casper Pena MD ENDOSCOPY PROCEDURE ORDERABL ES Final Result * HEPATITIS C ANTIBODY - SCREENING (11/24/2021 10:38 AM EDT) Hep C Ab Non-Reactiv e Non-Reacti ve 11/24/2021 3:20 PM EDT [facility] Blood VENOUS BLOOD / Unknown Venipuncture / Unknown 11/24/2021 10:38 AM EDT 11/24/2021 10:43 AM EDT us Cr Resendez MD HEMATOLOGY ORDERABLES Final Re sult [facility] [address] [facility] , [place] [address] from Last 3 Months or Most Recently Relevant to Health Maintenance Insurance [place] [address] MED[place] Member Subscriber Plan / Payer (Ef fective 2016-Present) Name:Rl Steward Relation to Subscriber:Self Name:Rl Steward Payer ID:Not on file Group ID:Not on file Type:Not on file Address: [address] [place] [id number] MEDICARE [place] PART A AND B [place]ARE [place] PART [place] B [place] Care Teams Vise Hand Relationship Specialty Start Date End Date Macario Pryor MD [address] [place] [address] [place] [address] PCP - Hematology/Oncology Internal Medicine-Medical Oncology 11/12/15 Cr Resendez MD [address] [place] [address] [place] [address] PCP - General Family Medicine 11/24/21 Jan Sin MD [address] [place] [address] [place] [address] Internal Medicine-Cardiovascul ar Disease 08/28/14
--- OUTSIDE RECORDS SUMMARY | 2025-05-31 13:29 | XMS_ITS | Encounter Summary ---
Author Organization Healthcare Address [address] [place] [address] Care Team Providers Care Coding And Reimbursement Specialist Name Role Phone Isabella Saucedo Phong VOUCHER EXAMINER Unavailable [phone] Jeannie Mcmillan RN Unavailable [phone] Ebony Shoemaker Unavailable [phone] Pcp, No Primary Care Provider Unavailabl e oRdney Gonzáles MD Unavailable [phone] Encounter Details Date Type Department Care Team (Late st Contact Info) Description 03/20/2025 Orders Only External Location [address] [place] [address] Provider, External Social History Tobacco Use Types [...] No 025 8:00 AM EDT Sandy Moseley, RN 2. Non-Specific Active Suici heriberto Thoughts [...] documented as of this encounter Care Teams Coding And Reimbursement Specialist Relationship Specialty Start Date End Date Pcp, No [address] [place] [address] PCP - General Family Medicine 03/20/25 Isabella Saucedo APRN [address] [facility] [address] [place] [address] Referring Physician 02/26/25 Jeannie Mcmillan, RN [facility] [address] [place] [address] Registered Nurse Transplant Surgery 03/08/25 [place] [address] Registered Nurse Transplant Surgery 03/08/25 Rodney Gonzáles MD [address] [facility] [address] [place], [place] [id number] Medical Oncologist 04/10/25 documented as of this encounter
--- OUTSIDE RECORDS SUMMARY | 2025-05-31 13:29 | XMS_ITS | Encounter Summary ---
Author Organization [facility] Address [address] [place] [address] Care Team Providers Care Branch Account Executive Name Role Phone Lewis Isabella Darling COMMISSION SPECIALIST Unavailable [phone] Jeannie Mcmillan RN Unavailable [phone] Ebony Shoemaker Unavailable [phone] Pcp, No Primary Care Provider Unavailabl e Rodney Gonzáles MD Unavailable [phone] Reason for Visit * Reason Comments Txp Surgical Follow-up Encounter Details Date Type Department Care Team (Late st Contact Info) Description 04/06/2025 Telephone [facility] [address] [facility] [address] [place] [address] Ebony Shoemaker [place] [phone] Txp Surgical Follow-up Social History Tobacco Use Types Packs/Day Years Used Date Smoking Tobacco: Every Day Cigarettes 0.5 7.8 Started: 2018 Smokeless Tobacco: Never PHQ-2 Answer [...] AM EDT I spoke with Veronica the geographic area intelligence officer with Isabella Kitchen' office. She said [...] chemo. He does not follow with a home service advisor per Ashley. Added to Dr. Do's discussion [...] documented as of this encounter Care Teams Branch Account Executive Relationship Specialty Start Date End Date Pcp, [address] [address] PCP - General Family Medicine 03/20/25 Isabella Saucedo APRN 12[address] [facility] [address] [place], [place] [address] Referring Physician 02/26/25 Jeannie Mcmillan, RN [facility] [address] [place] [address] Registered Nurse Transplant Surgery 03/08/25 [place] [address] Registered Nurse Transplant Surgery 03/08/25 Rodney Gonzáles MD 1210 [facility] [address] [place] [address] Medical Oncologist 04/10/25 documented as of this encounter
--- OUTSIDE RECORDS SUMMARY | 2025-05-31 13:29 | XMS_ITS | Encounter Summary ---
Author Organization Healthcare Address [address] [place] [address] Care Team Providers Care Caseworker Name Role Phone Isabella Saucedo ALMOND PAN FINISHER Unavailable [phone] Jeannie Mcmillan RN Unavailable [phone] Ebony Shoemaker Unavailable [phone] Pcp, No Primary Care Provider Unavailabl e Rodney Gonzáles MD Unavailable [phone] Reason for Referral * Transplant (Routine) [...] [address] [place] [address] [place], [place] [address] Phone: tel: fax: Referral ID Status Reason Start Date Expiration Date Visits Requested Visits Authorized [id number] Authorized Specialty Services Required 02/26/[phone] Encounter Details Date Type Department Care Team (Late st Contact Info) Description 02/26/2025 Community [facility] [address] [place] [address] Isabella Saucedo APRN [address] [place] [address] [place] [address] Invasion of liver, gallbladder, pancreas, ipsilateral branch [...] documented as of this encounter Care Teams Caseworker Relationship Specialty Start Date End Date Pcp, No [address] [place] [address] PCP - General Family Medicine 03/20/25 Isabella Saucedo APRN [address] [place] [address] Referring Physician 02/26/25 Jeannie Mcmillan RN [facility] [address] [place] [address] Registered Nurse Transplant Surgery 03/08/25 [place] [address] Registered Nurse Transplant Surgery 03/08/25 Rodney Gonzáles MD [address] [place] [address] [address] [place] [address] Medical Oncologist 04/10/25 documented as of this encounter
--- OUTSIDE RECORDS SUMMARY | 2025-05-31 13:29 | XMS_ITS | Encounter Summary ---
Author Organization [place] [address] Care Team Providers Care Video Clerk Name Role Phone Jan Sin MD Unavailable [phone] Macario Pryor MD Un[facility] Cr Resendez MD Primary Care Provider [phone] Encounter Details Date Type Department Care Team (Late st Contact Info) Description 05/31/2025 Abstract SEP Luis [address] [place] [address] Cr Resendez MD [address] [place] [address] [place] [address] Social History Tobacco Use Types Packs/Day Years [...] Danny Mckeon MA documented in this encounter Plan of [...] Routine 05/29/2025 COMPREHENSIVE METABOLIC PANEL Routine 05/29/2025 documented in this encounter Results * (ABNORMAL) PT AND PTT- COMPUNET (05/30/2025) PT 12.6 SECOND(S) SEP OFFICE INR 1.15(A) 0.9 - 1.1 SEP OFFICE 05/30/2025 Historical Provider CNET-HEMATOLOGY ORDERABLES F inal Result Performing Organization Address City/[facility] de Phone Number SEP OFFICE * (ABNORMAL) CBC (05/30/2025) WBC [...] HEMATOLOGY ORDERABLES Final Result Performing Organization Address [facility] [place]/[facility] Phone Number SEP OFFICE * (ABNORMAL) URINALYSIS (05/29/2025) Color dark yellow SEP OFFICE Appearance clear SEP OFFICE pH, Urine 7.0 SEP civil defense director Grav, UA 1.010 1.001 - 1.035 G/DL [...] ORDERABLES Final Resul t Performing Organization Address City/[facility] de Phone Number SEP OFFICE * AMMONIA LEVEL (05/29/2025) Ammonia <9 MCMOL/L SEP OFFICE Blood VENOUS BLOOD / Unknown 05/29/2025 Historical Provider CHEMISTRY ORDERABLES Final R esult SEP OFFICE * (ABNORMAL) COMPREHENSIVE METABOLIC PANEL (05/29/2025) Sodium 138 137 - 147 MMOL/L SEP [...] CHEMISTRY ORDERABLES Final R esult SEP OFFICE documented in this encounter Visit Diagnoses Not on filedocumented in this encounter Additional Health Concerns Assessment Noted Time PHQ-9 Depression Total Score: 15 025 8:00 AM EDT A fall risk assessment has been complete d for the patient 06/20/2024 1:28 PM EDT PHQ-2 Depression Total Score: 3 04/23/20 25 8:00 AM EDT documented as of this encounter Care Teams Video Clerk Relationship Specialty Start Date End Date Macario Pryor MD [address] [place] [address] [place] [address] PCP - Hematology/Oncology Internal Medicine-Medical Oncology 11/12/15 Cr Resendez MD [address] [place] [address] [place] [address] PCP - General Family Medicine 11/24/21 Jan Sin MD [address] [place] [address] [place] [address] Internal Medicine-Cardiovascul ar Disease 08/28/14 documented as of this encounter
--- OUTSIDE RECORDS SUMMARY | 2025-05-31 13:29 | XMS_ITS | Encounter Summary ---
Author Organization Healthcare Address [address] [place] [address] Care Team Providers Care Starbucks Clerk Name Role Phone LewisBereniceIsabella J EXHIBITIONS AND COLLECTIONS MANAGER Unavailable [phone] Jeannie Mcmillan RN Unavailable [phone] Ebony Shoemaker Unavailable [phone] Pcp, No Primary Care Provider Unavailabl e Rodney Gonzáles MD Unavailable [phone] Encounter Details Date Type Department Care Team (Late st Contact Info) Description 05/15/2025 Orders Only External Location [address] [place] [address] Provider, External Social History Tobacco Use Types [...] you homeless or living in a senior living (including now)? No 05/02/2025 [facility] Utilities Answer Date Recorded In [...] Associated Diagnosis Comments CT MSK OUTSIDE IMAGES 05/15/2025 5:08 AM EDT documented in this encounter Results * CT MSK OUTSIDE IMAGES (05/15/2025 5:08 AM EDT) Anatomical Region Laterality Modality Computed Tomogra phy 05/15/2025 5:08 AM EDT us External Provider IMG CT [...] documented as of this encounter Care Teams Starbucks Clerk Relationship Specialty Start Date End Date Pcp, [place] [address] PCP - General Family Medicine 03/20/25 Isabella Saucedo APRN 1210 [facility] [address] [place] [address] Referring Physician 02/26/25 Jeannie Mcmillan, RN [facility] [address] [place] [address] Registered Nurse Transplant Surgery 03/08/25 [place] [address] Registered Nurse Transplant Surgery 03/08/25 Rodney Gonzáles MD 1210 [facility] [address] [place] [address] Medical Oncologist 04/10/25 documented as of this encounter
--- OUTSIDE RECORDS SUMMARY | 2025-05-31 13:29 | XMS_ITS | Encounter Summary ---
Author [place] [address] Care Team Providers Care Road Oiling Truck Driver Name Role Phone Jan Sin MD Unavailable [phone] Macario Pryor MD Unavailable [facility] Cr Resendez MD Primary Care Provider Reason for Visit * Reason Onset Date Comments Central Patient Navigator Outreach 04/19/2025 AWV Questionnaire Encounter Details Date Type Department Care Team (Late st Contact Info) Description 04/19/2025 Patient Outreach SEP [facility] [address] [place] [address] Cr Resendez MD [address] [place] [address] [place] [address] Central Patient Navigator Outreach (AWV Questionnaire/) Social [...] Questionnaires Attempt Count: inbound Care Gaps Addressed landfill gas collection operator: Medicare Questionnaire Outcome:Medicare Questionnaire completed Call back number: [phone] * Esme Mendez - 04/19/2025 10:38 AM EDT Patient Outreach: Pre-Visit Questionnaires Attempt Count: 1st Care Gaps Addressed landfill gas collection operator: Medicare Questionnaire Outcome:MyChart Message Sent and Patient not available Call back number: [phone] documented in this encounter Plan of Treatment [...] documented as of this encounter Care Teams Road Oiling Truck Driver Relationship Specialty Start Date End Date Macario Pryor MD [address] [place] [address] [place] [address] PCP - Hematology/Oncology Internal Medicine-Medical Oncology 11/12/15 Cr Resendez MD [address] [place] [address] [place] [address] PCP - General Family Medicine 11/24/21 Jan Sin MD [address] [place] [address] [place] [address] Internal Medicine-Cardiovascul ar Disease 08/28/14 documented as of this encounter
--- OUTSIDE RECORDS SUMMARY | 2025-05-31 13:29 | XMS_ITS | Encounter Summary ---
Author [place] [address] Care Team Providers Care Skimmer Reverberatory Name Role Phone Jan Sin MD Unavailable [phone] Mcaario Pryor MD Unavailable Cr Rodriguez MD Primary Care Provider [phone] Reason for Visit * Reason Onset Date Comments Bloated 05/05/2025 Encounter Details Date Type Department Care Team (Late st Contact Info) Description 05/05/2025 Nurse Triage SEP Nurse Now [address] [place] [phone] Alicia Jones, RN Social History Tobacco [...] Call -Chief Complaint: pt just returned from [facility] for oncology. He was discharged today [...] getting worse Protocols used: Abdomen Bloating and Jobsjemd-E-HX documented in this encounter Plan of Treatment [...] documented as of this encounter Care Teams Skimmer Reverberatory Relationship Specialty Start Date End Date Macario Pryor MD [address] [place] [address] [place] [address] PCP - Hematology/Oncology Internal Medicine-Medical Oncology 11/12/15 Cr Resendez MD [address] [place] [address] [place]INE[place] [address] PCP - General Family Medicine 11/24/21 Jan Sin MD [address] [place] [address] [place] [address] Internal Medicine-Cardiovascul ar Disease 08/28/14 documented as of this encounter
--- OUTSIDE RECORDS SUMMARY | 2025-05-31 13:29 | XMS_ITS | Clinical Summary ---
Author Organization Healthcare Address [address] [place] [address] Care Team Providers Care Web Developer Programmer Name Role Phone LewisBereniceIsabella J TROPHY ASSEMBLER Unavailable [phone] Jeannie Mcmillan RN Unavailable [phone] Ebony Shoemaker Unavailable [phone] Pcp, No Primary Care Provider Unavailabl e Rodney Gonzáles MD Unavailable [phone] Allergies Active Allergy Reactions Criticality Noted [...] Encounters Date Type Department Care Team Description 05/30/2025 Orders Only External Location [address] [place] [address] Provider, External 05/15/2025 Orders Only External Location [address] [place] [address] Provider, External 05/04/2025 Travel 05/01/2025 4:53 PM EDT - 05/05/2025 2:45 PM EDT Hospital Encounter [facility] Inpatient [address] [place] [address] Clotilde Saleh MD Arndt, Frederick, MD Vyasabattu, Mahender, MD Generalized abdominal pain (Primary Dx); Hepatocellular carcinoma; RUQ abdominal pain Discharge Disposition: Home or Self Care 05/01/2025 Orders Only External Location [address] [place] [address] Suresh Bates MD 05/01/2025 Orders Only External Location [address] [place] [address] Chris Lazo MD 05/01/2025 Travel 05/01/2025 Orders Only External Location [address] [place] [address] Chris Lazo MD 04/06/2025 Telephone [facility] [address] [address] Ebony Shoemaker Txp Surgical Follow-up 03/20/2025 4:39 PM EDT - 03/21/2025 6:51 PM EDT Hospital Encounter [facility] Inpatient [address] [place] [address] Clotilde Saleh MD Santos, MD Krystina Wade Anne E, MD Epigastric pain (Primary Dx); Hepatocellular carcinoma; Alcoholic cirrhosis of liver without ascites (CMS/HCC) Discharge Disposition: Home or Self Care 03/20/2025 Orders Only External Location [address] [place] [address] Provider, External 03/20/2025 Orders Only External Location [address] [place] [address] Provider, External 03/20/2025 Travel 03/20/2025 Orders Only External Location [address] [place] [address] Provider, External 03/20/2025 Orders Only External Location [address] [place] [address] Provider, External 03/20/2025 Orders Only External Location [address] [place] [address] Provider, External 03/16/2025 Telephone [facility] [address] [address] Ebony Shoemaker Txp Surgical Follow-up (Do: Tumor Board Discussion 03/16/25) 03/14/2025 11:20 AM EDT - 03/14/2025 11:59 PM EDT Hospital Encounter [facility] [address] [place] [address] Elevated AFP; Liver lesion; Hepatic cirrhosis, unspecified hepatic cirrhosis type, unspecified whether ascites present (CMS/HCC) Discharge Disposition: Home or Self Care 03/14/2025 10:00 AM EDT Office Visit [facility] [address] [phone] Peter Do MD HCC (hepatocellular carcinoma) (Primary Dx) 03/14/2025 Orders Only [facility] [address] [phone] Ebony Shoemaker Liver lesion (Primary Dx); Elevated AFP; Hepatic cirrhosis, unspecified hepatic cirrhosis type, unspecified whether ascites present (CMS/HCC) 03/14/2025 Travel 03/10/2025 Travel 03/07/2025 Travel 03/06/2025 Telephone [facility] [address] [phone] Cici Ramírez 03/06/2025 Telephone [facility] [address] [phone] Angelita Reeves Appointment 03/05/2025 Telephone [facility] [address] [phone] Angelita Reeves Appointment from Last 3 Months Social History Tobacco Use Types Packs/Day Years Used Date Smoking Tobacco: Every Day Cigarettes 0.5 7.8 Started: 2017 Smokeless Tobacco: Never Tobacco Cessation:Ready [...] any time in the past 12 m [facility], were you homeless or living in a chcf (including now)? No 05/02/[address] [facility] Utilities Answer Date Recorded In [...] Last Done Comments [facility]-Infant/Child/Adol SDOH Screenings 1960 [id number] Vaccine (#1) 1963 [facility]-Hepatitis A Vaccines (1 [...] Associated Diagnosis Comments CT ABDOMEN OUTSIDE IMAGES 10/01/ 2025 11:[address] MSK OUTSIDE IMAGES 05/15/2025 5:08 AM EDT NM HEPATOBILIARY SCAN W PHARM CHALLENGE Routine [...] CT OUTSIDE IMAGES 05/01/2025 12:[address] OUTSIDE IMAGES 05/01/2025 12:38 PM EDT US OUTSIDE IMAGES 05/01/2025 9:2 7 AM EDT PROTHROMBIN TIME(PT) / INR Routine 03/21/2025 [...] ADULT STAT 03/20/2025 5:[address] OUTSIDE IMAGES 03/20/2025 1:[address] THORACIC OUTSIDE IMAGES 03/20/2025 1:13 PM EDT XR OUTSIDE IMAGES 03/20/2025 12:[address] OUTSIDE IMAGES 03/20/2025 12:[address] OUTSIDE IMAGES 03/20/2025 12:46 [...] (CMS/HCC) from Last 3 Months Results * CT ABDOMEN OUTSIDE IMAGES (05/30/2025 11:34 AM EDT) Anatomical Region Laterality Modality Computed Tomogra phy 05/30/2025 11:3 4 AM EDT us External Provider IMG CT PROCEDURES Edited Resul t - Final * CT MSK OUTSIDE IMAGES (05/15/2025 5:08 AM EDT) Anatomical Region Laterality Modality Computed Tomogra phy 05/15/2025 5:08 AM EDT us External Provider IMG CT PROCEDURES Edited Resul t - Final * NM Hepatobiliary Scan w Pharm Challenge [...] ng/mL 05/06/2025 12:20 PM EDT [facility] ([facility]) PEth 16:0/18:1 (POPEth) <10 ng/mL 05/06/2025 12:20 PM EDT [facility] EER Peth See Note 05/06/2025 12:20 PM EDT [facility] PEth Interpretation See Comment 05/06/2025 12:20 PM EDT [facility]) Blood Venous blood specimen / Unknown Venipuncture / Unknown 05/04/2025 4:33 AM EDT 05/04/2025 4:42 AM EDT Narrative [facility] ([facility]) - 05/06/2025 12:20 PM EDT PEth 16:0/18:1 (POPEth) Less than 10 ng/mL............Not detected Less than 20 ng/mL............Abstinence or light alcohol consumption 20 - 200 ng/mL................Moderate alcohol consumption Greater than 200 ng/mL........Heavy alcohol consumption or chronic alcohol use (Reference: Hannah Correa and Trice Azevedo 2018 J. Forensic Sci) Reference ranges are not well established. Authorized individuals can access the [facility] Enhanced Report with an [facility] Connect account using the following link. Your local lab can assist you in obtaining the patient report if you don't have a Connect account. [email or web address] Phosphatidylethanol (PEth) is a group of phospholipids [...] developed and its performance characteristics determined by [facility] [facility]. It has not been cleared or approved by the U.S. Food and Drug Administration. This test was performed in a CLIA-certified laboratory and is intended for clinical purposes. Performed By: [facility] [address] [place] [address] Grill Attendant: David Marx MD, PhD CLIA Number: [id number] Ang Will MD LAB REF LAB BLOOD AND FLU ID ORD Final Result [facility] ([facility]) [address] [place] [id number] * (ABNORMAL) Creatine Kinase, Total, Plasma (05/04/2025 4:33 AM EDT) Pathologist [facility] Creatine Kinase, Plasma 33(L) 49 - 320 U/L 05/04/2025 5:27 AM EDT [facility] Blood Venous blood specimen / Unknown Venipuncture / Unknown 05/04/2025 4:33 AM EDT 05/04/2025 4:44 AM EDT us Ang Will MD LAB BLOOD ORDERABLES Courtney ferrari Result [facility] [address] [place] [address] * (ABNORMAL) CBC W/O Differential (05/04/2025 4:33 AM EDT) Only the most recent of3 resultswithin the time period is included. Pathologist [facility] WBC Count 4.71 3.70 - 10.30 10*3/uL [...] [facility] [address] [place] [address] * (ABNORMAL) Comprehensive metabolic panel (05/04/2025 4:33 [...] Result [facility] [address] [place] [address] * (ABNORMAL) Bilirubin, direct (05/02/2025 1:42 PM EDT) Only the most recent of2 resultswithin the time period is included. Direct Bilirubin, Plasma 0.7(H) <=0.3 mg/dL 05/02/2025 2:51 PM EDT [facility] Blood Venous blood specimen / Unknown Venipuncture / Unknown 05/02/2025 1:42 PM EDT 05/02/2025 2:10 PM EDT Ang Will MD LAB BLOOD ORDERABLES Courtney l Result Performing Organization Address City/[facility] Co de Phone Number [facility] [address] [place] [address] * (ABNORMAL) Lactate, venous (05/02/2025 2:07 AM [...] ORDERABLES Final Re sult Performing Organization Address [facility] Co de Phone Number [facility] [address] [place] [address] * (ABNORMAL) Prothrombin Time/INR (05/02/2025 2:07 AM [...] of recurrent [place] INR 2.5 to 3.5 Lexi Crane TROPHY ASSEMBLER LAB BLOOD ORDERABLES Final Re sult [facility] [address] [place] [address] * (ABNORMAL) CBC and differential (05/02/2025 2:07 [...] 2:07 AM EDT 05/02/2025 2:20 AM EDT [facility] 05/02/2025 2:31 AM EDT Therapeutic decision making should be based on absolute values, rather than percentages. us Lexi Crane TROPHY ASSEMBLER LAB BLOOD ORDERABLES Final Re sult [facility] [address] [place] [address] * US Abdomen RUQ (05/01/2025 7:43 PM [...] 05/01/2025 8:43 PM us Clotilde Saleh MD IM US PROCEDURES Final [...] TEST ORDERABLES Final Result Performing Organization Address City/[facility] de Phone Number BLOOD BANK [address] [place] [address], * Magnesium (05/01/2025 5:54 PM EDT) Magnesium, Plasma 1.9 1.9 - 2.4 mg/dL 05/01/2025 6:22 PM EDT [facility] Blood Venous blood specimen / Unknown Venipuncture / Unknown 05/01/2025 5:54 PM EDT 05/01/2025 5:58 PM EDT us Clotilde Saleh MD LAB BLOOD ORDERABLES Final Resu lt Performing Organization Address City/State/[facility] Co de Phone Number [facility] [address] [place] [address] * (ABNORMAL) Lipase (05/01/2025 5:54 PM EDT) [...] Resu lt Performing Organization Address [facility] Co de Phone Number [facility] [address] [place] [address] * EKG now - STAT (adult) (05/01/2025 [...] QTC Interval 447 ms MUSE ECG P [place] 50 degrees MUSE ECG R [place] -53 degrees MUSE ECG T Wave [place] 43 degrees MUSE ECG Diagnosis Normal sinus [...] ECG ORDERABLES Final Result Performing Organization Address [facility] Co de Phone Number MUSE ECG * CT OUTSIDE IMAGES (05/01/2025 12:38 PM EDT) Only the most recent of5 resultswithin the time period is included. Anatomical Region Laterality Modality Computed Tomogra phy 05/01/2025 12:3 8 PM EDT Chris Lazo MD IMG CT PROCEDURES Edited Resul t - Final * US OUTSIDE IMAGES (05/01/2025 9:27 AM EDT) Anatomical Region Laterality Modality Ultrasound 05/01/2025 9:27 AM EDT Suresh Bates MD IMG US PROCEDURES Edited Result - Final * Troponin T, High Sensitivity, 2 Hour, Plasma (03/20/2025 10:54 PM EDT) Pathologist [facility] Troponin T, High Sensitivity, 2 Hour 10 <19 ng/L 03/20/2025 11:[address] [facility] Blood Venous blood specimen / Unknown Venipuncture / Unknown 03/20/2025 10:54 PM EDT 03/20/2025 11:04 PM EDT Leelee Tripathi MD LAB BLOOD ORDERABLE S Final Result [facility] [address] [place] [address] * ED HIV 1/2 Antibody/Antigen Screen w/Reflex to HIV 1/2 Differentiation (03/20/2025 6:51 PM EDT) Pathologist [facility] HIV 1 & 2 Antibody/Antigen Screen Non Reactive Non Reactive 03/20/2025 8:05 PM EDT [facility] Comment:Screening for HIV 1 & 2 antibodies, and P24 antigen is NONREACTIVE. No confirmatory testing is required. Blood Venous blood specimen / Unknown Venipuncture / Unknown 03/20/2025 6:51 PM EDT 03/20/2025 7:09 PM EDT Dedra HURTADO LAB BLOOD ORDERABLES Courtney l Result [facility] [address] [place] [address] * Troponin now and 120 min (03/20/2025 6:51 PM EDT) Pathologist [facility] Troponin T, High Sensitivity, 0 Hour 9 <19 ng/L 03/20/2025 7:35 PM EDT [facility] Blood Venous blood specimen / Unknown Venipuncture / Unknown 03/20/2025 6:51 PM EDT 03/20/2025 7:09 PM EDT Dedra A [employer] LAB BLOOD ORDERABLES Courtney l Result [facility] [address] [place] [address] * Hepatitis C Antibody - ED (03/20/2025 6:51 PM EDT) [facility] Hepatitis C Antibody Negative Negative 03/20/2025 8:01 PM EDT [facility] Blood Venous blood specimen / Unknown Venipuncture / Unknown 03/20/2025 6:51 PM EDT 03/20/2025 7:09 PM EDT [employer] [facility] [employer] LAB BLOOD ORDERABLES Courtney l Result Performing Organization Address City/[facility]/ZIP Co de Phone Number [facility] [address] [place] [address] * APTT (03/20/2025 6:51 PM EDT) [facility] aPTT 31 25 - 35 sec 03/20/2025 7:25 PM EDT [facility] Blood Venous blood specimen / Unknown Venipuncture / Unknown 03/20/2025 6:51 PM EDT 03/20/2025 7:08 PM EDT [employer] [facility] [employer] LAB BLOOD ORDERABLES Courtney l Result [facility] [address] [place] [address] * C-Reactive protein (03/20/2025 6:51 PM EDT) [facility] CRP, Plasma 5.2 <=8.0 mg/L 03/20/2025 7:35 PM EDT [facility] Blood Venous blood specimen / Unknown Venipuncture / Unknown 03/20/2025 6:51 PM EDT 03/20/2025 7:09 PM EDT Narrative [facility] - 03/20/2025 7:35 PM EDT This CRP test is appropriate for assessment of infection, systemic inflammation and/or tissue injury. To assess cardiovascular disease risk order high sensitivity CRP (CRPH). Dedra Moya PA LAB BLOOD ORDERABLES Courtney l Result [facility] [address] [place] [address] * CT THORACIC OUTSIDE IMAGES (03/20/2025 1:13 PM EDT) Anatomical Region Laterality Modality Computed Tomogra phy 03/20/2025 1:13 PM EDT us External Provider IMG CT PROCEDURES Edited Resul t - Final * XR OUTSIDE IMAGES (03/20/2025 12:54 PM EDT) Anatomical Region Laterality Modality Radiographic Winnie ging 03/20/2025 12:5 4 PM EDT External Provider IMG XR PROCEDURES Edited Resul t - Final * CT CHEST WO IV CONTRAST (03/14/2025 [...] BLOOD ORDERABLES Final Result Performing Organization Address City/[facility]/[place] [address] * Cancer Antigen, GI (CA 19.9) (03/14/2025 8:38 AM EDT) Pathologist [facility] CA 19.9 26.5 <36 U/mL 03/14/2025 10:22 [...] BLOOD ORDERABLES Final Result Performing Organization Address City/[facility]/[place] [address] * (ABNORMAL) CEA, Serum (03/14/2025 8:38 AM EDT) Pathologist [facility] CEA, Serum 5.2(H) <4.0 ng/mL 03/14/2025 10:22 [...] Result [facility] [address] [place] [address] from Last 3 Months [place] [address] Advance Directives * Full Code (Latest Code [...] updated to appropriate status: Yes Care Teams Web Developer Programmer Relationship Specialty Start Date End Date Pcp, No [address] [place] [address] PCP - General Family Medicine 03/20/25 Isabella Saucedo APRN 1210 [facility] [address] [place] [address] Referring Physician 02/26/25 Jeannie Mcmillan, RN [facility] [address] [place] [id number] Registered Nurse Transplant Surgery 03/08/25 [place] [address] Registered Nurse Transplant Surgery 03/08/25 Rodney Gonzáles MD 1210 [facility] [address] [place] [address] Medical Oncologist 04/10/25
--- OUTSIDE RECORDS SUMMARY | 2025-05-31 13:29 | XMS_ITS | Encounter Summary ---
Author Organization Healthcare Address [address] [place] [address] Care Team Providers Care Peoplesoft Functional Analyst Name Role Phone Isabella Saucedo Phong DAIRY EQUIPMENT REPAIRER Unavailable [phone] Jeannie Mcmillan RN Unavailable [phone] Ebony Shoemaker Unavailable [phone] Pcp, No Primary Care Provider Unavailabl e Rodney Gonzáles MD Unavailable [phone] Encounter Details Date Type Department Care Team (Late st Contact Info) Description 05/01/2025 Orders Only External Location [address] [place] [id number] Chris Lazo MD [address] [address] Social History Tobacco Use Types [...] any time in the past 12 m [facility], were you homeless or living in a usp (including now)? No 05/02/2025 [facility] Utilities Answer Date Recorded [...] (Past 1 Month) No 025 4:00 PM EDT Jayy Benítez RN 2. Non-Specific Active Suici heriberto Thoughts [...] Tomogra phy 05/01/2025 12:3 8 PM EDT us Chris Lazo MD IMG CT PROCEDURES Edited [...] documented as of this encounter Care Teams Peoplesoft Functional Analyst Relationship Specialty Start Date End Date Pcp, No [address] [place] [address] PCP - General Family Medicine 03/20/25 Isabella Saucedo APRN [address] [place] [address] Referring Physician 02/26/25 Jeannie Mcmillan RN [facility] [address] [phone] Registered Nurse Transplant Surgery 03/08/25 [place] [address] Registered Nurse Transplant Surgery 03/08/25 Rodney Gonzáles MD 1210 [facility] [address] [place] [address] Medical Oncologist 04/10/25 documented as of this encounter
--- OUTSIDE RECORDS SUMMARY | 2025-05-31 13:29 | XMS_ITS | Encounter Summary ---
Author Organization Healthcare Address [address] [place] [address] Care Team Providers Care Recyclable Products Sorter Name Role Phone Isabella Saucedo Phong CAR SEALER Unavailable [phone] Jeannie Mcmillan RN Unavailable [phone] Ebony Shoemaker Unavailable [phone] Pcp, No Primary Care Provider Unavailabl e Rodney Gonzáles MD Unavailable [phone] Encounter Details Date Type Department Care Team (Late st Contact Info) Description 03/20/2025 Orders Only External Location 800 [place] [address] Provider, External Social History Tobacco Use Types [...] Associated Diagnosis Comments CT OUTSIDE IMAGES 03/20/2025 1:13 PM EDT documented in this encounter Results * CT OUTSIDE IMAGES (03/20/2025 1:13 PM EDT) Anatomical [...] documented as of this encounter Care Teams Recyclable Products Sorter Relationship Specialty Start Date End Date Pcp, No [address] [place] [address] PCP - General Family Medicine 03/20/25 Isabella Saucedo APRN 1210 [facility] [address] [place] [address] Referring Physician 02/26/25 Jeannie Mcmillan, NIURKA CH-TRANSPLANT ADMINISTRATION [address] [place] [address] Registered Nurse Transplant Surgery 03/08/25 [place] [address] Registered Nurse Transplant Surgery 03/08/25 Rodney Gonzáles MD 1210 [facility] [address] [place] [address] Medical Oncologist 04/10/25 documented as of this encounter
--- OUTSIDE RECORDS SUMMARY | 2025-05-31 13:30 | XMS_ITS | Encounter Summary ---
Author Organization [place] [address] Care Team Providers Care Hand Counter Name Role Phone Jan Sin MD Unavailable [phone] Macario Pryor MD Unavailable [facility] Cr Lopez MD Primary Care Provider [phone] Reason for Visit * Reason Comments Medication Refill Encounter Details Date Type Department Care Team (Late st Contact Info) Description 05/17/2025 Refill SEP Luis [address] [place] [address] Lorri Crespo, CAR PICK UP DRIVER [address] [place] [address] Medication Refill Social History Tobacco Use Types [...] documented as of this encounter Care Teams Hand Counter Relationship Specialty Start Date End Date Macario Pryor MD [address] [place] [address] [place] [address] PCP - Hematology/Oncology Internal Medicine-Medical Oncology 11/12/15 Cr Resendez MD [address] [place] [address] [place] [address] PCP - General Family Medicine 11/24/21 Jan Sin MD [address] [place] [address] [place] [address] Internal Medicine-Cardiovascul ar Disease 08/28/14 documented as of this encounter
--- OUTSIDE RECORDS SUMMARY | 2025-05-31 13:30 | XMS_ITS | Encounter Summary ---
Author Organization Healthcare Address [address] [place] [address] Care Team Providers Care Pst Specialist Name Role Phone Isabella Saucedo Phong CHARGE MANAGER Unavailable [phone] Jeannie Mcmillan RN Unavailable [phone] bEony Shoemaker Unavailable [phone] Pcp, No Primary Care Provider Unavailabl e Rodney Gonzáles MD Unavailable [phone] Encounter Details Date Type Department Care Team (Late st Contact Info) Description 11/22/2024 Orders Only External Location 800 [place] [address] Provider, External Social History Tobacco Use Types [...] documented as of this encounter Care Teams Pst Specialist Relationship Specialty Start Date End Date Pcp, No [address] [place], [place] [id number] PCP - General Family Medicine 03/20/25 Isabella Saucedo APRN 1210 [facility] [address] [place] [address] Referring Physician 02/26/25 Jeannie Mcmillan, RN CH-TRANSPLANT ADMINISTRATION 800 [place] [address] Registered Nurse Transplant Surgery 03/08/25 Ebony Shoemaker [place] [phone] Registered Nurse Transplant Surgery 03/08/25 Rodney Gonzáles MD 1210 [facility] [address] [place] [address] Medical Oncologist 04/10/25 documented as of this encounter
--- OUTSIDE RECORDS SUMMARY | 2025-05-31 13:30 | XMS_ITS | Encounter Summary ---
Author Organization Healthcare Address [address] [place] [address] Care Team Providers Care Construction Plumber Name Role Phone Isabella Saucedo Phong PAYROLL TECHNICIAN Unavailable [phone] Jeannie Mcmillan RN Unavailable [phone] Ebony Shoemaker Unavailable [phone] Pcp, No Primary Care Provider Unavailabl e Rodney Gonzáles MD Unavailable [phone] Encounter Details Date Type Department Care Team (Late st Contact Info) Description 11/15/2024 Orders Only External Location 800 [place] [address] Provider, External Social History Tobacco Use Types [...] documented as of this encounter Care Teams Construction Plumber Relationship Specialty Start Date End Date Pcp, [place] [address] PCP - General Family Medicine 03/20/25 Isabella Saucedo APRN 1210 [facility] [address] [place] [address] Referring Physician 02/26/25 Jeannie Mcmillan, RN CH-TRANSPLANT ADMINISTRATION 800 [place] [address] Registered Nurse Transplant Surgery 03/08/25 Ebony Shoemaker [place] [phone] Registered Nurse Transplant Surgery 03/08/25 Rodney Gonzáles MD 1210 [facility] [address] [place] [address] Medical Oncologist 04/10/25 documented as of this encounter
--- OUTSIDE RECORDS SUMMARY | 2025-05-31 13:30 | XMS_ITS | Encounter Summary ---
Author Organization Healthcare Address [address] [place] [address] Care Team Providers Care Lap Checker Name Role Phone Isabella Saucedo Phong UX DESIGN LEAD Unavailable [phone] Jeannie Mcmillan RN Unavailable [phone] Ebony Shoemaker Unavailable [phone] Pcp, No Primary Care Provider Unavailabl e Rodney Gonzáles MD Unavailable [phone] Encounter Details Date Type Department Care Team (Late st Contact Info) Description 01/06/2024 Orders Only External Location 800 [place] [address] Provider, External Social History Tobacco Use Types [...] documented as of this encounter Care Teams Lap Checker Relationship Specialty Start Date End Date Pcp, [place] [address] PCP - General Family Medicine 03/20/25 Isabella Saucedo APRN 1210 [facility] [address] [place] [address] Referring Physician 02/26/25 Jeannie Mcmillan, RN CH-TRANSPLANT ADMINISTRATION 800 [place] [address] Registered Nurse Transplant Surgery 03/08/25 Ebony Shoemaker [place] [id number] Registered Nurse Transplant Surgery 03/08/25 Rodney Gonzáles MD 1210 [facility] [address] [place] [address] Medical Oncologist 04/10/25 documented as of this encounter
--- OUTSIDE RECORDS SUMMARY | 2025-05-31 13:30 | XMS_ITS | Encounter Summary ---
Author Organization Healthcare Address [address] [place] [address] Care Team Providers Care Electronic Publisher Name Role Phone Isabella Saucedo Phong TRAFFIC MANAGER Unavailable [phone] Jeannie Mcmillan RN Unavailable [phone] Ebony Shoemaker Unavailable [phone] Pcp, No Primary Care Provider Unavailabl e Rodney Gonzáles MD Unavailable [phone] Encounter Details Date Type Department Care Team (Late st Contact Info) Description 01/12/2025 Orders Only External Location 800 [place] [address] Provider, External Social History Tobacco Use Types [...] documented as of this encounter Care Teams Electronic Publisher Relationship Specialty Start Date End Date Pcp, [place] [address] PCP - General Family Medicine 03/20/25 Isabella Saucedo APRN 1210 [facility] [address] [place] [address] Referring Physician 02/26/25 Jeannie Mcmillan, RN CH-TRANSPLANT ADMINISTRATION [address] [place] [address] Registered Nurse Transplant Surgery 03/08/25 Ebony Shoemaker [place] [id number] Registered Nurse Transplant Surgery 03/08/25 Rodnye Gonzáles MD 1210 [facility] [address] [place] [address] Medical Oncologist 04/10/25 documented as of this encounter
--- OUTSIDE RECORDS SUMMARY | 2025-05-31 13:30 | XMS_ITS | Encounter Summary ---
Author Organization Healthcare Address [address] [place] [address] Care Team Providers Care Home Care Music Therapist Name Role Phone Isabella Saucedo Phong PRESSING MACHINE OPERATOR Unavailable [phone] Jeannie Mcmillan RN Unavailable [phone] Eboyn Shoemaker Unavailable [phone] Pcp, No Primary Care Provider Unavailabl e Rodney Gonzáles MD Unavailable [phone] Encounter Details Date Type Department Care Team (Late st Contact Info) Description 05/26/2022 Orders Only External Location 800 [place] [address] Provider, External Social History Tobacco Use Types [...] as of this encounter Care Teams Home Care Music Therapist Relationship Specialty Start Date End Date Pcp, No [address] [place] [address] PCP - General Family Medicine 03/20/25 Isabella Saucedo APRN 1210 [facility] [address] [place] [address] Referring Physician 02/26/25 Jeannie Mcmillan, RN CH-TRANSPLANT ADMINISTRATION 800 [place] [address] Registered Nurse Transplant Surgery 03/08/25 Ebony Shoemaker [place] [phone] Registered Nurse Transplant Surgery 03/08/25 Rodney Gonzáles MD 1210 [facility] [address] [place] [address] Medical Oncologist 04/10/25 documented as of this encounter
--- OUTSIDE RECORDS SUMMARY | 2025-05-31 13:30 | XMS_ITS | Encounter Summary ---
Author Organization Healthcare Address [address] [place] [address] Care Team Providers Care Home Performance Consultant Name Role Phone Isabella Saucedo Phong OWNER CONSULTING ENGINEER Unavailable [phone] Jeannie Mcmillan RN Unavailable [phone] Ebony Shoemaker Unavailable [phone] Pcp, No Primary Care Provider Unavailabl e Rodney Gonzáles MD Unavailable [phone] Encounter Details Date Type Department Care Team (Late st Contact Info) Description 12/06/2024 Orders Only External Location 800 [place] [address] Provider, External Social History Tobacco Use Types [...] as of this encounter Care Teams Home Performance Consultant Relationship Specialty Start Date End Date Pcp, No [address] [place] [address] PCP - General Family Medicine 03/20/25 Isabella Saucedo APRN 1210 [facility] [address] [place] [address] Referring Physician 02/26/25 Jeannie Mcmillan, RN CH-TRANSPLANT ADMINISTRATION 800 [place] [address] Registered Nurse Transplant Surgery 03/08/25 Ebony Shoemaker [place] [id number] Registered Nurse Transplant Surgery 03/08/25 Rodney Gonzáles MD 1210 [facility] [address] [place] [address] Medical Oncologist 04/10/25 documented as of this encounter
--- OUTSIDE RECORDS SUMMARY | 2025-05-31 13:30 | XMS_ITS | Encounter Summary ---
Author Organization Healthcare Address [address] [place] [address] Care Team Providers Care Idea Worker Name Role Phone Isabella Saucedo Phong CREEL CLERK Unavailable [phone] Jeannie Mcmillan RN Unavailable [phone] Ebony Shoemaker Unavailable [phone] Pcp, No Primary Care Provider Unavailabl e Rodney Gonzáles MD Unavailable [phone] Encounter Details Date Type Department Care Team (Late st Contact Info) Description 06/03/2022 Orders Only External Location [address] [place] [address] Provider, External Social History Tobacco Use Types [...] documented as of this encounter Care Teams Idea Worker Relationship Specialty Start Date End Date Pcp, No [address] [place] [id number] PCP - General Family Medicine 03/20/25 Isabella Saucedo APRN 1210 [facility] [address] [place] [address] Referring Physician 02/26/25 Jeannie Mcmillan, RN CH-TRANSPLANT ADMINISTRATION 800 [place] [address] Registered Nurse Transplant Surgery 03/08/25 [place] [address] Registered Nurse Transplant Surgery 03/08/25 Rodney Gonzáles MD 1210 [facility] [address] [place] [address] Medical Oncologist 04/10/25 documented as of this encounter
--- OUTSIDE RECORDS SUMMARY | 2025-05-31 13:30 | XMS_ITS | Encounter Summary ---
Author Organization Healthcare Address [address] [place] [address] Care Team Providers Care Regulatory Compliance Coordinator Name Role Phone Isabella Saucedo Phong MANAGER LAUNDRY Unavailable [phone] Jeannie Mcmillan RN Unavailable [phone] Ebony Shoemaker Unavailable [phone] Pcp, No Primary Care Provider Unavailabl e Rodney Gonzáles MD Unavailable [phone] Encounter Details Date Type Department Care Team (Late st Contact Info) Description 05/26/2022 Orders Only External Location 800 [place] [address] Provider, External Social History Tobacco Use Types [...] as of this encounter Care Teams Regulatory Compliance Coordinator Relationship Specialty Start Date End Date Pcp, [place] [address] PCP - General Family Medicine 03/20/25 Isabella Saucedo APRN 1210 [facility] [address] [place] [address] Referring Physician 02/26/25 Jeannie Mcmillan, RN CH-TRANSPLANT ADMINISTRATION 800 [place] [address] Registered Nurse Transplant Surgery 03/08/25 Ebony Shoemaker [place] [id number] Registered Nurse Transplant Surgery 03/08/25 Rodney Gonzáles MD 1210 [facility] [address] [place] [address] Medical Oncologist 04/10/25 documented as of this encounter
--- OUTSIDE RECORDS SUMMARY | 2025-05-31 13:30 | XMS_ITS | Encounter Summary ---
Author Organization Healthcare Address [address] [place] [address] Care Team Providers Care Die Cast Die Maker Name Role Phone Isabella Saucedo Phong COSMETOLOGIST APPRENTICE Unavailable [phone] Jeannie Mcmillan RN Unavailable [phone] Ebony Shoemaker Unavailable [phone] Pcp, No Primary Care Provider Unavailabl e Rodney Gonzáles MD Unavailable [phone] Encounter Details Date Type Department Care Team (Late st Contact Info) Description 12/06/2024 Orders Only External Location 800 [place] [address] Provider, External Social History Tobacco Use Types [...] documented as of this encounter Care Teams Die Cast Die Maker Relationship Specialty Start Date End Date Pcp, No [address] [place] [address] PCP - General Family Medicine 03/20/25 Isabella Saucedo APRN 1210 [facility] [address] [place] [address] Referring Physician 02/26/25 Jeannie Mcmillan, RN CH-TRANSPLANT ADMINISTRATION 800 [place] [address] Registered Nurse Transplant Surgery 03/08/25 Ebony Shoemaker [place] [phone] Registered Nurse Transplant Surgery 03/08/25 Rodney Gonzáles MD 1210 [facility] [address] [place] [address] Medical Oncologist 04/10/25 documented as of this encounter
--- OUTSIDE RECORDS SUMMARY | 2025-05-31 13:30 | XMS_ITS | Encounter Summary ---
Author Organization Healthcare Address [address] [place] [address] Care Team Providers Care Biophysics Teacher Name Role Phone Isabella Saucedo Phong CLINICAL REHAB SPECIALIST Unavailable [phone] Jeannie Mcmillan RN Unavailable [phone] Ebony Shoemaker Unavailable [phone] Pcp, No Primary Care Provider Unavailabl e Rodney Gonzáles MD Unavailable [phone] Encounter Details Date Type Department Care [...] any time in the past 12 m [facility], were you homeless or living in a assisted (including now)? No 05/02/2025 [facility] Utilities Answer Date Recorded In the past [...] documented as of this encounter Care Teams Biophysics Teacher Relationship Specialty Start Date End Date Pcp, [address] [address] PCP - General Family Medicine 03/20/25 Isabella Saucedo APRN 1210 [facility] [address] [place] [address] Referring Physician 02/26/25 Jeannie Mcmillan, RN CH-TRANSPLANT ADMINISTRATION [address] [place] [address] Registered Nurse Transplant Surgery 03/08/25 [place] [address] Registered Nurse Transplant Surgery 03/08/25 Rodney Gonzáles MD 1210 [facility] [address] [place] [address] Medical Oncologist 04/10/25 documented as of this encounter
--- OUTSIDE RECORDS SUMMARY | 2025-05-31 13:30 | XMS_ITS | Encounter Summary ---
Author Organization Healthcare Address [address] [place] [address] Care Team Providers Care Client Technical Specialist Name Role Phone Isabella Saucedo Phong USER SUPPORT ANALYST SUPERVISOR Unavailable [phone] Jeannie Mcmillan RN Unavailable Ebony Shoemaker Unavailable [phone] Pcp, No Primary Care Provider Unavailabl e Rodney Gonzáles MD Unavailable [phone] Encounter Details Date Type Department Care Team (Late st Contact Info) Description 12/06/2024 Orders Only External Location 800 [place] [address] Provider, External Social History Tobacco Use Types [...] documented as of this encounter Care Teams Client Technical Specialist Relationship Specialty Start Date End Date Pcp, No [address] [place] [address] PCP - General Family Medicine 03/20/25 Isabella Saucedo APRN 1210 [facility] [address] [place] [address] Referring Physician 02/26/25 Jeannie Mcmillan, RN CH-TRANSPLANT ADMINISTRATION 800 [place] [address] Registered Nurse Transplant Surgery 03/08/25 Ebony Shoemaker [place] [phone] Registered Nurse Transplant Surgery 03/08/25 Rodney Gonzáles MD 1210 [facility] [address] [place] [address] Medical Oncologist 04/10/25 documented as of this encounter
--- OUTSIDE RECORDS SUMMARY | 2025-05-31 13:30 | XMS_ITS | Encounter Summary ---
Author Organization Healthcare Address [address] [place] [address] Care Team Providers Care Step Finisher Name Role Phone Isabella Saucedo Phong BAND LINING BANDER Unavailable [phone] Jeannie Mcmillan RN Unavailable Ebony Shoemaker Unavailable [phone] Pcp, No Primary Care Provider Unavailabl e Rodney Gonzáles MD Unavailable [phone] Encounter Details Date Type Department Care [...] in a fpc (including now)? No 05/02/2025 [facility] Utilities Answer Date Recorded [...] documented as of this encounter Care Teams Step Finisher Relationship Specialty Start Date End Date Pcp, No [address] [place] [address] PCP - General Family Medicine 03/20/25 Isabella Saucedo APRN [address] [place] [address] Referring Physician 02/26/25 Jeannie Mcmillan, RN CH-TRANSPLANT ADMINISTRATION [address] [place] [address] Registered Nurse Transplant Surgery 03/08/25 [place] [address] Registered Nurse Transplant Surgery 03/08/25 Rodney Gonzáles MD [address] [place] [address] [place] [address] Medical Oncologist 04/10/25 documented as of this encounter
--- OUTSIDE RECORDS SUMMARY | 2025-05-31 13:30 | XMS_ITS | Encounter Summary ---
Author Organization Healthcare Address [address] [place] [address] Care Team Providers Care Liquid Waste Treatment Plant Operator Name Role Phone Isabella Saucedo Phong CONSUMER LOAN UNDERWRITER Unavailable [phone] Jeannie Mcmillan RN Unavailable [phone] Ebony Shoemaker Unavailable [phone] Pcp, No Primary Care Provider Unavailabl e Rodney Gonzáels MD Unavailable [phone] Encounter Details Date Type Department Care Team (Late st Contact Info) Description 12/06/2024 Orders Only External Location [address] [place] [address] Provider, External Social History Tobacco Use Types [...] documented as of this encounter Care Teams Liquid Waste Treatment Plant Operator Relationship Specialty Start Date End Date Pcp, No [address] [place] [address] PCP - General Family Medicine 03/20/25 Isabella Saucedo APRN 1210 [facility] [address] [place] [address] Referring Physician 02/26/25 Jeannie Mcmillan, RN CH-TRANSPLANT ADMINISTRATION 800 [place] [address] Registered Nurse Transplant Surgery 03/08/25 Ebony Shoemaker [place] [phone] Registered Nurse Transplant Surgery 03/08/25 Rodney Gonzáles MD 1210 [facility] [address] [place] [address] Medical Oncologist 04/10/25 documented as of this encounter
--- OUTSIDE RECORDS SUMMARY | 2025-05-31 13:30 | XMS_ITS | Encounter Summary ---
Author Organization Healthcare Address [address] [place] [address] Care Team Providers Care Real Estate Executive Assistant Name Role Phone Isabella Saucedo Phong PSYCHOLOGIST CLINICAL Unavailable [phone] Jeannie Mcmillan RN Unavailable [phone] Ebony Shoemaker Unavailable [phone] Pcp, No Primary Care Provider Unavailabl e Rodney Gonzáles MD Unavailable [phone] Encounter Details Date Type Department Care Team (Late st Contact Info) Description 12/06/2024 Orders Only External Location [address] [place] [address] Provider, External Social History Tobacco Use Types [...] of this encounter Care Teams Real Estate Executive Assistant Relationship Specialty Start Date End Date Pcp, No [address] [place] [address] PCP - General Family Medicine 03/20/25 Isabella Saucedo APRN [address] [facility] [address] [place] [address] Referring Physician 02/26/25 Jeannie Mcmillan, RN CH-TRANSPLANT ADMINISTRATION 800 [place] [address] Registered Nurse Transplant Surgery 03/08/25 Ebony Shoemaker [place] [phone] Registered Nurse Transplant Surgery 03/08/25 Rodney Gonzáles MD 1210 [facility] [address] [place] [address] Medical Oncologist 04/10/25 documented as of this encounter
--- OUTSIDE RECORDS SUMMARY | 2025-05-31 13:30 | XMS_ITS | Encounter Summary ---
Author Organization Healthcare Address [address] [place] [address] Care Team Providers Care Pharmacy Billing Adjudicator Name Role Phone Isabella Saucedo Phong DIRECTOR OF FINANCIAL REPORTING Unavailable [phone] Jeannie Mcmillan RN Unavailable [phone] Ebony Shoemaker Unavailable [phone] Pcp, No Primary Care Provider Unavailabl e Rodney Gonzáles MD Unavailable [phone] Encounter Details Date Type Department Care Team (Late st Contact Info) Description 12/06/2024 Orders Only External Location [address] [place] [address] Provider, External Social History Tobacco Use Types [...] as of this encounter Care Teams Pharmacy Billing Adjudicator Relationship Specialty Start Date End Date Pcp, No [address] [place] [address] PCP - General Family Medicine 03/20/25 Isabella Saucedo APRN 1210 [facility] [address] [place] [address] Referring Physician 02/26/25 Jeannie Mcmillan, RN CH-TRANSPLANT ADMINISTRATION 800 [place] [address] Registered Nurse Transplant Surgery 03/08/25 Ebony Shoemaker [place] [id number] Registered Nurse Transplant Surgery 03/08/25 Rodney Gonzáles MD 1210 [facility] [address] [place] [address] Medical Oncologist 04/10/25 documented as of this encounter
--- OUTSIDE RECORDS SUMMARY | 2025-05-31 13:30 | XMS_ITS | Encounter Summary ---
Author Organization Healthcare Address [address] [place] [address] Care Team Providers Care Renewals Manager Name Role Phone Isabella Saucedo Phong RESIDENT PHYSICIAN Unavailable [phone] Jeannie Mcmillan RN Unavailable [phone] Ebony Shoemaker Unavailable [phone] Pcp, No Primary Care Provider Unavailabl e Rodney Gonzáles MD Unavailable [phone] Encounter Details Date Type Department Care Team (Late st Contact Info) Description 12/07/2024 Orders Only External Location 800 [place] [address] Provider, External Social History Tobacco Use Types [...] documented as of this encounter Care Teams Renewals Manager Relationship Specialty Start Date End Date Pcp, [place] [address] PCP - General Family Medicine 03/20/25 Isabella Saucedo APRN 1210 [facility] [address] [place] [address] Referring Physician 02/26/25 Jeannie Mcmillan, RN CH-TRANSPLANT ADMINISTRATION 800 [place] [address] Registered Nurse Transplant Surgery 03/08/25 Ebony Shoemaker [place] [id number] Registered Nurse Transplant Surgery 03/08/25 Rodney Gonzáles MD 1210 [facility] [address] [place] [address] Medical Oncologist 04/10/25 documented as of this encounter
--- OUTSIDE RECORDS SUMMARY | 2025-05-31 13:30 | XMS_ITS | Encounter Summary ---
Author Organization Healthcare Address [address] [place] [address] Care Team Providers Care E Commerce Director Name Role Phone Isabella Saucedo Phong MANAGER GALLERY Unavailable [phone] Jeannie Mcmillan RN Unavailable [phone] Ebony Shoemaker Unavailable [phone] Pcp, No Primary Care Provider Unavailabl e Rodney Gonzáles MD Unavailable [phone] Encounter Details Date Type Department Care Team (Late st Contact Info) Description 12/06/2024 Orders Only External Location [address] [place] [address] Provider, External Social History Tobacco Use Types [...] documented as of this encounter Care Teams E Commerce Director Relationship Specialty Start Date End Date Pcp, No [address] [place] [address] PCP - General Family Medicine 03/20/25 Isabella Saucedo APRN 1210 [facility] [address] [place] [address] Referring Physician 02/26/25 Jeannie Mcmillan, RN [facility] [address] [place] [address] Registered Nurse Transplant Surgery 03/08/25 Ebony Shoemaker [place] [id number] Registered Nurse Transplant Surgery 03/08/25 Rodney Gonzáles MD 1210 [facility] [address] [place] [address] Medical Oncologist 04/10/25 documented as of this encounter
--- OUTSIDE RECORDS SUMMARY | 2025-05-31 13:30 | XMS_ITS | Encounter Summary ---
Author Organization Healthcare Address [address] [place] [address] Care Team Providers Care Life Skills Consultant Name Role Phone Isabella Saucedo Phong GRAIN ELEVATOR MOTOR STARTER Unavailable [phone] Jeannie Mcmillan RN Unavailable [phone] Ebony Shoemaker Unavailable [phone] Pcp, No Primary Care Provider Unavailabl e Rodney Gonzáles MD Unavailable [phone] Encounter Details Date Type Department Care Team (Late st Contact Info) Description 12/06/2024 Orders Only External Location [address] [place] [address] Provider, External Social History Tobacco Use Types [...] documented as of this encounter Care Teams Life Skills Consultant Relationship Specialty Start Date End Date Pcp, No [address] [place] [address] PCP - General Family Medicine 03/20/25 Isabella Saucedo APRN [address] [facility] [address] [place] [address] Referring Physician 02/26/25 Jeannie Mcmillan, RN [facility] [address] [place] [address] Registered Nurse Transplant Surgery 03/08/25 Ebony Shoemaker [place] [id number] Registered Nurse Transplant Surgery 03/08/25 Rodney Gonzáles MD 1210 [facility] [address] [place] [address] Medical Oncologist 04/10/25 documented as of this encounter
--- OUTSIDE RECORDS SUMMARY | 2025-05-31 13:30 | XMS_ITS | Encounter Summary ---
Author Organization Healthcare Address [address] [place] [address] Care Team Providers Care Veterinarian Poultry Name Role Phone Isabella Saucedo Phong TRUST VAULT CUSTODIAN Unavailable [phone] Jeannie Mcmillan RN Unavailable [phone] Ebony Shoemaker Unavailable [phone] Pcp, No Primary Care Provider Unavailabl e Rodney Gonzáles MD Unavailable [phone] Encounter Details Date Type Department Care Team (Late st Contact Info) Description 12/06/2024 Orders Only External Location [address] [place] [address] Provider, External Social History Tobacco Use Types [...] documented as of this encounter Care Teams Veterinarian Poultry Relationship Specialty Start Date End Date Pcp, No [address] [place] [address] PCP - General Family Medicine 03/20/25 Isabella Saucedo APRN 1210 [facility] [address] [place] [address] Referring Physician 02/26/25 Jeannie Mcmillan, RN [facility] [address] [place] [address] Registered Nurse Transplant Surgery 03/08/25 Ebony Shoemaker [place] [phone] Registered Nurse Transplant Surgery 03/08/25 Rodney Gonzáles MD 1210 [facility] [address] [place] [address] Medical Oncologist 04/10/25 documented as of this encounter
--- OUTSIDE RECORDS SUMMARY | 2025-05-31 13:30 | XMS_ITS | Encounter Summary ---
Author Organization Healthcare Address [address] [place] [address] Care Team Providers Care Elevator Operator Service Name Role Phone Isabella Saucedo Phong STONE BREAKER Unavailable [phone] Jeannie Mcmillan RN Unavailable [phone] Ebony Shoemaker Unavailable [phone] Pcp, No Primary Care Provider Unavailabl e Rodney Gonzáles MD Unavailable [phone] Encounter Details Date Type Department Care Team (Late st Contact Info) Description 01/14/2024 Orders Only External Location [address] [place] [address] Provider, External Social History Tobacco Use Types [...] documented as of this encounter Care Teams Elevator Operator Service Relationship Specialty Start Date End Date Pcp, No [address] [place] [address] PCP - General Family Medicine 03/20/25 Isabella Saucedo APRN 1210 [facility] [address] [place] [address] Referring Physician 02/26/25 Jeannie Mcmillan, RN [facility] [address] [place] [address] Registered Nurse Transplant Surgery 03/08/25 [place] [address] Registered Nurse Transplant Surgery 03/08/25 Rodney Gonzáles MD 1210 [facility] [address] [place] [address] Medical Oncologist 04/10/25 documented as of this encounter
[2025-05-31] MEDS: 0.9 % SODIUM CHLORIDE 1000ML 1,000 ML 999 ML IV (13:43)
[2025-05-31 13:56] LABS: Hematocrit 43.9 % (42.0-52.0); Hemoglobin 15.5 g/dL (14.1-18.0); Immature Granulocytes % 1.3 %; Mean Corpuscular HGB Conc 35.3 g/dL (31.8-35.4); Mean Corpuscular Hemoglobin 31.9 pg (27.0-31.2); Mean Corpuscular Volume 90.3 fl (80-94); Nucleated Red Blood Cells % 0 %; Platelet Count 103 K/mm3 (142-424); Red Blood Count 4.86 M/mm3 (4.60-6.20); Red Cell Distribution Width-SD 63.0 fL; White Blood Count 12.3 K/mm3 (4.8-10.8)
[2025-05-31 14:00] LABS: Coronavirus 19, PCR Not Detected (NotDetected); Influenza A, PCR Not Detected (NotDetected); Influenza B, PCR Not Detected (NotDetected)
[2025-05-31 14:04] LABS: Alanine Aminotransferase 175 U/L (12-78); Albumin Level 3.3 g/dl (3.5-5.0); Albumin/Globulin Ratio 0.9 (1.1-1.8); Alkaline Phosphatase 643 U/L (38-126); Anion Gap 14.0 mEq/L (5-15); Bilirubin,Total 8.0 mg/dl (0.2-1.3); Blood Urea Nitrogen 20 mg/dl (9-20); Calcium 9.2 mg/dl (8.4-10.2); Carbon Dioxide 28 mmol/L (22.0-30.0); Chloride 99 mmol/L (98-107); Creatinine Clearance Estimated 60 mL/min (50-200); Creatinine,Serum 1.00 mg/dl (0.66-1.25); Estimated Glomerular Filt Rate 75 ml/min (>60); GFR (African American) 90 ML/MIN (>60); Globulin 3.7 g/dL (1.3-3.2); Glucose 144 mg/dl (74-100); Lipase 112 U/L (23-300); Magnesium 2.0 mg/dl (1.6-2.3); Potassium 4.0 mmoL/L (3.5-5.1); Sodium 137 mmol/L (136-145); Total Protein,Serum 7.0 g/dl (6.3-8.2)
[2025-05-31 14:10] LABS: C-Reactive Protein 95.1 mg/L (0-4)
[2025-05-31 14:16] LABS: Activated Partial Thrombo Time 27.3 seconds (22.8-30.6)
[2025-05-31 14:24] LABS: INR 1.24 (0.9-1.1); Prothrombin Time 13.5 seconds (10.1-12.5)
--- NOTE | 2025-05-31 14:26 | ED_ITS ---
Discharge Plan Disposition Patient Disposition: Xfer Other Prescriptions Prescriptions: No Action cyclobenzaprine 5 mg tablet 5 mg PO BID potassium chloride [K-Tab] 20 mEq tablet extended release 10 meq PO DAILY prochlorperazine maleate [Compazine] 10 mg tablet 10 mg PO Q6H PRN (Reason: nausea and vomiting) Qty: 30 1RF Rx Instructions: take one tablet as needed for n/v related to chemotherapy albuterol sulfate 90 mcg/actuation HFA aerosol inhaler 1 inh inhalation NEEDED PRN (Reason: COPD) Patient Comments: INHALE 2 PUFFS INTO THE LUNGS 4 TIMES DAILY. furosemide 20 mg tablet 20 mg PO DAILY hydromorphone [Dilaudid] 4 mg tablet 4 mg PO Q4-6H PRN (Reason: pain) Qty: 180 0RF sennosides [senna] 8.6 mg tablet 8.6 mg PO HS Qty: 30 5RF nitroglycerin 0.4 mg tablet, sublingual 0.4 mg sublingual Q5M PRN (Reason: chest pain) Qty: 14 0RF Rx Instructions: do not exceed 3 doses per episode morphine 30 mg tablet extended release 30 mg PO Q12H Qty: 60 0RF bisoprolol fumarate 5 mg tablet See Rx Instructions .ROUTE .COMPLEX Qty: 90 3RF Dose Instruction: TAKE 1 TABLET BY MOUTH DAILY Rx Instructions: TAKE 1 TABLET BY MOUTH DAILY levofloxacin 500 mg tablet 500 mg PO DAILY Qty: 10 0RF aspirin 81 mg Tablet 81 mg PO DAILY escitalopram oxalate 20 mg tablet 20 mg PO AM Patient Comments: TAKE 1 TABLET BY MOUTH DAILY. Trelegy Ellipta 100-62.5-25 mcg blister with device 1 inh INHALATION DAILY Patient Comments: INHALE 1 PUFF INTO THE LUNGS DAILY AT 0900. clopidogrel 75 mg Tablet 75 mg PO DAILY 30 Days Qty: 30 0RF Jardiance 10 mg Tablet 10 mg PO DAILY 30 Days Qty: 30 0RF megestrol 800 mg/20 mL (20 mL) suspension 800 mg PO DAILY Qty: 600 3RF Rx Instructions: Please take 20 mL by mouth daily methylprednisolone [Medrol (Tacos)] 4 mg tablets,dose pack See Rx Instructions .ROUTE .COMPLEX Qty: 21 0RF Rx Instructions: for 6 days Referrals Follow up/Referrals: Rodney Resendez [Primary Care Provider, Medical] - See instructions Clinical Impressions Clinical Impression: Encephalopathy, HCC (hepatocellular carcinoma), GI (gastrointestinal bleed) Stand Alone Forms Stand Alone Forms: Transfer Record - ED Instructions Patient Instructions: DI for Gastrointestinal Bleeding Print Language Print Language: Cuban Discharge ED Provider: Abel Saravia Adult HPI <Monalisa Elizondo (ED), IT DESKTOP SUPPORT TECHNICIAN - Last Filed: 05/31/25 15:18> General Chief complaint: GI Bleed Stated complaint: blood in stool-Liver cancer Time Seen by Provider: 05/31/25 13:20 Mode of Arrival: Ambulatory Source of Information: Patient and Spouse Description of Symptoms (Recalled from ER Triage Doc. by RN): patient presents to the ED for bloody stool. Patient stated that this has been going on for 3 days now and he has been back and forth with his primary care doctor the last 3 days but the bleeding continues. he is a cancer patient taking active immunotherapy with [facility] for liver cancer. he stated he takes aspirin and plavix as well. History of Present Illness HPI narrative: 65-year-old male presents to the ED for complaint of 2 days of blood in his stool. Patient is a cancer patient and is no longer taking immunotherapy with [employer] for liver cancer. They have stopped chemo as well. states that the bili was elevated so they stopped the immunotherapy. They have also stopped chemo. They are considering radiation but Dr. Do at in the tumor board or discussing what to do next. She states that they will call patient and tomorrow or Wednesday with further recommendations. Patient is on steroids currently 20 mg he was on 60 yesterday tomorrow he will go down to 10. He had a CT scan yesterday that showed colitis and ascites. Patient has been having abdominal and back pain and has been taking morphine twice a day and Dilaudid every 6 hours. Patient has been somewhat confused and encephalopathic. Patient cannot have an MRI where he has wires in his back from the stimulator in the . Related Data Home Medications ?Medication ?Instructions ?Recorded ?Confirmed aspirin 81 mg tablet 81 mg PO DAILY 01/06/2404/30 escitalopram oxalate 20 mg tablet 20 mg PO AM 01/06/24 05/09/25 fluticasone fur. 100 mcg-umeclid 1 inh inhalation BJ Y 01/06/24 05/09/25 62.5 mcg-vilant 25 mcg inhalat.powder (Trelegy Ellipta) albuterol sulfate 90 mcg/actuation 1 inh inhalation NEEDED PRN COPD 11/22/24 05/09/25 aerosol inhaler cyclobenzaprine 5 mg tablet 5 mg PO BID 04/05/2505/09 potassium chloride 20 mEq 10 meq PO DAILY 04/05/2506/23 tablet,extended release (K-Tab) furosemide 20 mg tablet 20 mg PO DAILY 04/26/2504/30 Previous Rx's ?Medication ?Instructions ?Recorded clopidogrel 75 mg tablet 75 mg PO DAILY 30 days #30 t abs 01/07/24 empagliflozin 10 mg tablet 10 mg PO DAILY 30 days #30 tabs 01/07/24 (Jardiance) nitroglycerin 0.4 mg sublingual 0.4 mg sublingual Q5M PRN chest 01/10/24 tablet pain #14 tabs prochlorperazine maleate 10 mg 10 mg PO Q6H PRN nausea and 03/27/25 tablet (Compazine) vomiting #30 tabs megestrol 800 mg/20 mL (20 mL) 800 mg (20 mL) PO DAILY #600 mL 04/09/25 oral suspension hydromorphone 4 mg tablet 4 mg PO Q4-6H PRN pain #180 tabs 04/26/25 (Dilaudid) sennosides 8.6 mg tablet (senna) 8.6 mg PO HS #30 tabs 04/26/25 methylprednisolone 4 mg tablets in See Rx Instructions PO .COMPLEX 05/15/25 a dose pack (Medrol (Tacos)) #21 tabs morphine 30 mg tablet,extended 30 mg PO Q12H #60 tabs 05/15/25 release bisoprolol fumarate 5 mg tablet See Rx Instructions .R oute 05/17/25 .COMPLEX #90 tabs levofloxacin 500 mg tablet 500 mg PO DAILY #10 tabs Allergies Allergy/AdvReac Type Severity Reaction Status Date / Time adhesive tape (ADHESIVE TAPE) Allergy Intermediate I-RASH Verified 05/09/25 15:09 gabapentin AdvReac Severe Confusion Verified 05/09/25 15:09 duloxetine (From CYMBALTA) AdvReac Unknown Unknown Verified 05/09/25 15:09 allergy reaction PFSH <Monalisa Elizondo (ED), IT DESKTOP SUPPORT TECHNICIAN - Last Filed: 05/31/25 15:18> [facility] Disclaimer: The information contained in this section may have been updated after the patient was seen, as this information can be updated by other users. Medical History Mood disorder COPD (chronic obstructive pulmonary disease) Vitamin D deficiency, unspecified Abnormal ultrasound of both kidneys HTN (hypertension) Moderate mitral valve regurgitation Fatigue SOB (shortness of breath) Surgical History Hx of CABG AICD (automatic cardioverter/defibrillator) present Family History Other No significant family history Social History Smoking Status: Light tobacco smoker tobacco type: cigarettes packs per day: 1 years smoked: 40 quit status: has quit before alcohol intake: former substance use type: denies use current occupational status: disabled Travel in the last 8 weeks?: None household members: spouse housing: house caffeine: Yes Have you lived/traveled outside [place] in past 30 days?: No Contact w/someone who lives/traveled outside US past 30 days?: No Exposure to someone with infectious disease in past 14 days?: No Do you have a fever (greater than 100.4 F or 38 C)?: No Have you tested positive for COVID-19?: No Exposed to someone with COVID-19 in past 14 days?: No Do you have a sore throat?: No Do you have a cough?: No Do you have any weakness?: No Do you have any diarrhea?: No Are you experiencing any unusual bleeding?: No Do you have any muscle aches/pain?: No Do you have any abdominal pain?: No Are you experiencing loss of taste or smell?: No Other Medical History Have you received the Flu Vaccine for this season: No Have you received the Pneumonia Vaccine: No <Monalisa Elizondo (ED), IT DESKTOP SUPPORT TECHNICIAN - Last Filed: 05/31/25 15:18> ROS Obtained: Yes Systems reviewed as appropriate & no additional complaints except as documented Constitutional Constitutional: Reports as per HPI Physical Exam <Monalisa Elizondo (ED), IT DESKTOP SUPPORT TECHNICIAN - Last Filed: 05/31/25 15:18> General General appearance: alert and other (Jaundiced) Head Head exam: normocephalic Eye Eye exam: Present PERRL, EOMI and scleral icterus ENT ENT exam: Present normal oropharynx and mucous membranes dry Neck Neck exam: Present full ROM and trachea midline Respiratory Respiratory exam: Present other (Rhonchi) Cardiovascular Cardiovascular exam: Present regular rate, normal rhythm, normal heart sounds, +S1 and +S2 Abdominal Exam Abdominal exam: Present distention and tenderness Abdominal tenderness: Present diffuse Extremities Exam Extremities exam: Present normal inspection, full ROM and normal capillary refill Neurological Exam Neurological exam: Present alert Skin Skin exam: Present warm, dry and intact Medical Decision Making <Monalisa Elizondo (ED), IT DESKTOP SUPPORT TECHNICIAN - Last Filed: 05/31/25 15:18> Medical Records Screening: Per USPSTF and CDC recommendations, given the prevalence of disease in our region, it is our hospital?s policy to screen for HIV and viral Hepatitis for all patients aged 18 and over and those with ongoing risk factors. Tony Inquiry Pt receiving controlled substance: No Tony was queried for this patient: No Vital Signs: 05/31/25 13:13 05/31/25 13:30 05/31/25 14:00 Temperature 98.0 F Temperature Source Oral Pulse Rate 92 H 83 Pulse Rate [Right Radial] 93 H Respiratory Rate 20 17 16 Blood Pressure 135/65 140/52 L Blood Pressure [Right Arm] 134/58 L Blood Pressure Mean [Right Arm] 83 Blood Pressure Source Blood Pressure Source [Right Arm] Automatic Cuff Blood Pressure Position Blood Pressure Position [Right Arm] Sitting 02 Sat by Pulse Oximetry 100 95 98 Oxygen Delivery Method Room Air Room Air Room Air 05/31/25 14:31 05/31/25 15:00 05/31/25 15:23 Temperature 98 F Temperature Source Oral Pulse Rate 82 79 80 Pulse Rate [Right Radial] Respiratory Rate 16 17 16 Blood Pressure 115/99 H 112/56 L 112/56 L Blood Pressure [Right Arm] Blood Pressure Mean [Right Arm] Blood Pressure Source Automatic Cuff Blood Pressure Source [Right Arm] Blood Pressure Position Supine Blood Pressure Position [Right Arm] 02 Sat by Pulse Oximetry 96 97 Oxygen Delivery Method Room Air 05/31/25 15:27 05/31/25 15:31 Temperature Temperature Source Pulse Rate Pulse Rate [Right Radial] Respiratory Rate 11 L Blood Pressure 129/57 L Blood Pressure [Right Arm] Blood Pressure Mean [Right Arm] Blood Pressure Source Blood Pressure Source [Right Arm] Blood Pressure Position Blood Pressure Position [Right Arm] 02 Sat by Pulse Oximetry 96 95 Oxygen Delivery Method Room Air Lab Data Lab Results 05/31/25 13:44: WBC 12.3 H, RBC 4.86, Hgb 15.5, Hct 43.9, MCV 90.3, MCH 31.9 H, MCHC 35.3, RDW 20.1 H, Plt Count 103 L D, MPV 12.2 H, Neut % (Auto) 83.4 H, L ymph % (Auto) 5.9 L, [place] % (Auto) 9.1, Eos % (Auto) 0.1, Baso % (Auto) 0.2, N eut # (Auto) 10.2 H, Lymph # (Auto) 0.7, [place] # (Auto) 1.1 H, Eos # (Auto) 0.0, Baso # (Auto) 0.0, ESR 4, PT 13.5 H, INR 1.24 H, APTT 27.3, Sodium 137, Potassium 4.0, Chloride 99, Carbon Dioxide 28, Anion Gap 14.0, BUN 20, Creatinine 1.00, Estimated Creat Clear 60, Estimated GFR 75, Est GFR ( Amer) 90, Glucose 144 H, Lactate 4.5 H, Calcium 9.2, Magnesium 2.0, Total Bilirubin 8.0 H, AST 851 H* D, ALT 175 H D, Alkaline Phosphatase 643 H, C- Reactive Protein 95.1 H, Total Protein 7.0, Albumin 3.3 L, Globulin 3.7 H, A lbumin/Globulin Ratio 0.9 L, Lipase 112 05/31/25 13:54: SARS-CoV-2 (PCR) Not detected, Influenza A Untype (PCR) Not detected, Influenza Type B (PCR) Not detected 05/31/25 15:25: Urine Color Yellow, Urine Appearance Clear, Urine pH 6.0, Ur Specific [place] 1.020, Urine Protein Negative, Urine Glucose (UA) 3+, Urine Ketones Negative, Urine Blood Negative, Urine Nitrate Negative, Urine Bilirubin 1+ A, Urine Urobilinogen 1.0, Ur Leukocyte Esterase Negative, Urine RBC None, Urine WBC Occasional, Ur Squamous Epith Cells Occasional, Urine Bacteria 1+ 05/31/25 13:44 05/31/25 13:44 Orders (Tests/Meds): ED MEDICATIONS Discontinued Medications Generic Name Dose Route Start Last Admin Trade Name Manish PRN Reason Stop Dose Admin Hydromorphone HCl 2 mg 05/31/25 15:16 05/31/25 15:20 Hydromorphone 2mg/Ml Syringe IV 05/31/25 15:17 2 mg ONCE ONE Administration Sodium Chloride 1,000 mls @ 999 mls/hr 05/31/25 13:36 05/31/25 15:13 Sod Chlor 0.9% 1000ml Bag IV 05/31/25 14:36 Infused .Q1H1M ONE Infusion ORDERS Category Date Time Status Ammonia Stat Lab 05/31/25 13:44 Received C-Reactive Protein Stat Lab 05/31/25 13:44 Completed CBC [Complete Blood Count Auto Diff] Stat Lab 05/31/25 13:44 Completed Comprehensive Metabolic Panel Stat Lab 05/31/25 13:44 Completed Diarrhea 23 Panel, PCR Stat Lab 05/31/25 13:51 Ordered Erythrocyte Sedimentation Rate Stat Lab 05/31/25 13:44 Completed Lactic Acid Stat Lab 05/31/25 13:44 Completed Lipase Stat Lab 05/31/25 13:44 Completed Magnesium Stat Lab 05/31/25 13:44 Completed PTT [Activated Partial Thrombo Time] Stat Lab 05/31/25 13:44 Completed Prothrombin Time INR Stat Lab 05/31/25 13:44 Completed Rapid PCR Covid and Flu A/B Stat Lab 05/31/25 13:54 Completed Urinalysis and Microscopic Stat Lab 05/31/25 15:25 Completed Medical Decision Narrative: patient is a 65-year-old male presenting to the emergency department for evaluation of abdominal pain, back pain, bloody stool for 2 days. Patient is hemodynamically stable and nontoxic-appearing upon arrival, afebrile. Differential diagnosis includes colitis, GI bleed, sepsis, among others. Workup will be conducted with hematologic labs and imaging. Initial inventions include crystalloid bolus, analgesics Initial workup reviewed by me hematologic labs are remarkable for white count of 12.3, total bili 8, AST is 851 ALT is 175, alk phos 643, albumin is 3.3. Patient had imaging yesterday that showed colitis. I called [facility] for transfer as this is Dr. Do's cancer patient. Dr. Kwong excepted patient to [facility]. <Abel Saravia, DO - Last Filed: 05/31/25 15:48> Medical Records Medical records reviewed: Yes I reviewed the patient's medical records. Vital Signs: 05/31/25 13:13 05/31/25 13:30 05/31/25 14:00 Temperature 98.0 F Temperature Source Oral Pulse Rate 92 H 83 Pulse Rate [Right Radial] 93 H Respiratory Rate 20 17 16 Blood Pressure 135/65 140/52 L Blood Pressure [Right Arm] 134/58 L Blood Pressure Mean [Right Arm] 83 Blood Pressure Source Blood Pressure Source [Right Arm] Automatic Cuff Blood Pressure Position Blood Pressure Position [Right Arm] Sitting 02 Sat by Pulse Oximetry 100 95 98 Oxygen Delivery Method Room Air Room Air Room Air 05/31/25 14:31 05/31/25 15:00 05/31/25 15:23 Temperature 98 F Temperature Source Oral Pulse Rate 82 79 80 Pulse Rate [Right Radial] Respiratory Rate 16 17 16 Blood Pressure 115/99 H 112/56 L 112/56 L Blood Pressure [Right Arm] Blood Pressure Mean [Right Arm] Blood Pressure Source Automatic Cuff Blood Pressure Source [Right Arm] Blood Pressure Position Supine Blood Pressure Position [Right Arm] 02 Sat by Pulse Oximetry 96 97 Oxygen Delivery Method Room Air 05/31/25 15:27 05/31/25 15:31 Temperature Temperature Source Pulse Rate Pulse Rate [Right Radial] Respiratory Rate 11 L Blood Pressure 129/57 L Blood Pressure [Right Arm] Blood Pressure Mean [Right Arm] Blood Pressure Source Blood Pressure Source [Right Arm] Blood Pressure Position Blood Pressure Position [Right Arm] 02 Sat by Pulse Oximetry 96 95 Oxygen Delivery Method Room Air Lab Data Lab Results 05/31/25 13:44: WBC 12.3 H, RBC 4.86, Hgb 15.5, Hct 43.9, MCV 90.3, MCH 31.9 H, MCHC 35.3, RDW 20.1 H, Plt Count 103 L D, MPV 12.2 H, Neut % (Auto) 83.4 H, L ymph % (Auto) 5.9 L, [place] % (Auto) 9.1, Eos % (Auto) 0.1, Baso % (Auto) 0.2, N eut # (Auto) 10.2 H, Lymph # (Auto) 0.7, [place] # (Auto) 1.1 H, Eos # (Auto) 0.0, Baso # (Auto) 0.0, ESR 4, PT 13.5 H, INR 1.24 H, APTT 27.3, Sodium 137, Potassium 4.0, Chloride 99, Carbon Dioxide 28, Anion Gap 14.0, BUN 20, Creatinine 1.00, Estimated Creat Clear 60, Estimated GFR 75, Est GFR ( Amer) 90, Glucose 144 H, Lactate 4.5 H, Calcium 9.2, Magnesium 2.0, Total Bilirubin 8.0 H, AST 851 H* D, ALT 175 H D, Alkaline Phosphatase 643 H, C- Reactive Protein 95.1 H, Total Protein 7.0, Albumin 3.3 L, Globulin 3.7 H, A lbumin/Globulin Ratio 0.9 L, Lipase 112 05/31/25 13:54: SARS-CoV-2 (PCR) Not detected, Influenza A Untype (PCR) Not detected, Influenza Type B (PCR) Not detected 05/31/25 15:25: Urine Color Yellow, Urine Appearance Clear, Urine pH 6.0, Ur Specific [place] 1.020, Urine Protein Negative, Urine Glucose (UA) 3+, Urine Ketones Negative, Urine Blood Negative, Urine Nitrate Negative, Urine Bilirubin 1+ A, Urine Urobilinogen 1.0, Ur Leukocyte Esterase Negative, Urine RBC None, Urine WBC Occasional, Ur Squamous Epith Cells Occasional, Urine Bacteria 1+ Orders (Tests/Meds): ED MEDICATIONS Discontinued Medications Generic Name Dose Route Start Last Admin Trade Name Manish PRN Reason Stop Dose Admin Hydromorphone HCl 2 mg 05/31/25 15:16 05/31/25 15:20 Hydromorphone 2mg/Ml Syringe IV 05/31/25 15:17 2 mg ONCE ONE Administration Sodium Chloride 1,000 mls @ 999 mls/hr 05/31/25 13:36 05/31/25 15:13 Sod Chlor 0.9% 1000ml Bag IV 05/31/25 14:36 Infused .Q1H1M ONE Infusion ORDERS Category Date Time Status Ammonia Stat Lab 05/31/25 13:44 Received C-Reactive Protein Stat Lab 05/31/25 13:44 Completed CBC [Complete Blood Count Auto Diff] Stat Lab 05/31/25 13:44 Completed Comprehensive Metabolic Panel Stat Lab 05/31/25 13:44 Completed Diarrhea 23 Panel, PCR Stat Lab 05/31/25 13:51 Ordered Erythrocyte Sedimentation Rate Stat Lab 05/31/25 13:44 Completed Lactic Acid Stat Lab 05/31/25 13:44 Completed Lipase Stat Lab 05/31/25 13:44 Completed Magnesium Stat Lab 05/31/25 13:44 Completed PTT [Activated Partial Thrombo Time] Stat Lab 05/31/25 13:44 Completed Prothrombin Time INR Stat Lab 05/31/25 13:44 Completed Rapid PCR Covid and Flu A/B Stat Lab 05/31/25 13:54 Completed Urinalysis and Microscopic Stat Lab 05/31/25 15:25 Completed Medical Decision Narrative: In summary, this is a 65-year-old male patient who is presenting to the emergency department today for evaluation of abdominal pain and bloody stool for the last 2 days. Patient has a past medical history of hepatocellular carcinoma which significant complicates his medical care and management. He follows with Dr. Do at [facility] and has been receiving immunotherapy for this. The patient's states that he has been significantly confused over the last couple of days. On initial evaluation the patient has a GCS of 14 secondary to confusion. He does know where he is at and he is able to tell me his name, but his thought and speech is tangential and he answers questions inappropriately and often. His heart and lungs are clear to auscultation bilaterally. His abdomen is distended. On bedside POCUS assessment he does have ascites in his abdominal cavity but there is not enough fluid there to safely perform a paracentesis. He does not have significant lower extremity erythema or edema. His abdomen is tender to palpation. I have reviewed prior records which show that the patient had a CT scan in the outpatient setting yesterday. This showed redemonstration of the dominant mass in the right lobe of the liver consistent with known hepatocellular carcinoma as well as progressive satellite lesions in the superior right lobe of the liver likely related to progression of hepatocellular carcinoma. They also noted that he had worsening ascites with extensive mucosal thickening throughout the colon consistent with acute infectious or inflammatory colitis. Differential diagnosis included viral colitis, bacterial colitis, inflammatory colitis, side effect of immunotherapy, spontaneous bacterial peritonitis, hepatic encephalopathy, among others Labs personally interpreted by me demonstrate a leukocytosis of 12.3, thrombocytopenia that has dropped significantly from yesterday, 219-> 103. His INR has increased from 1.15-> to 1.24. Patient's lactate is elevated at 4.5 which is likely a type B lactic acidosis in the setting of liver failure. The patient does have a worsening transaminitis with an increase in his AST from 265-851, increase in ALT from 79-1 75, and increase in alkaline phosphatase from 515-643. We do not have access to run an ammonia assay here at our hospital today. Given that this patient is experiencing ongoing GI bleeding and is encephalopathic I do feel that he needs higher level of care at a tertiary care center where he is followed longitudinally for his cancer. Therefore we had an interactive discussion with the [facility] transfer center and spoke with Dr. Kwong who graciously agreed to accept the patient for transfer to their hospital for further evaluation. Patient was transferred by ground transport in stable condition. Critical Care <Monalisa Elizondo (IRAIS), IT DESKTOP SUPPORT TECHNICIAN - Last Filed: 05/31/25 15:18> Critical Care Time Critical Care Time: No
[2025-05-31 14:31] LABS: Aspartate Amino Transferase 851 U/L (17-59)
--- NOTE | 2025-05-31 14:34 | PC.NURSE ---
Flaca from lab called critical on patient. Lactic 4.5, restated and verified
--- NOTE | 2025-05-31 14:46 | PC.NURSE ---
Called [facility] per DUDLEY Elizondo to speak with them about this pt being transferred to there facility for Encephalopathy. Images were powershared and [facility] would call us back
--- NOTE | 2025-05-31 14:57 | PC.NURSE ---
accepted the pt to [facility]
--- NOTE | 2025-05-31 15:18 | PC.NURSE ---
[facility] called about this transfer going to ER
[2025-05-31] MEDS: HYDROMORPHONE 2MG/ML SYRINGE 2 MG IV (15:20)
--- NOTE | 2025-05-31 15:22 | PC.NURSE ---
report called to [facility] fahad soriano rn
[2025-05-31 15:30] LABS: Microscopic, Urine URINE MICROSCOPIC (MICROSCOPIC)
[2025-05-31 15:33] LABS: Bilirubin,Urine 1+ (Negative); Color,Urine YELLOW (Yellow); Glucose,Urine (UA) 3+ (Negative); Ketones,Urine Negative (Negative); Leukocyte Esterase,Urine Negative (Negative); PH,Urine 6.0 (5.0-8.5); Protein,Urine Negative (Negative); Specific Gravity, Urine 1.020 (1.005-1.030); Urobilinogen,Urine 1.0 EU/dl (0.2)
[2025-05-31 15:44] LABS: Bacteria,Urine 1+ /lpf; Squamous Epithelial Cell,Urine Occasional #/hpf (0-5); WBC,Urine Occasional #/hpf (0-3)
[2025-05-31 17:20] LABS: Ammonia 16 umol/L (9-30)
[2025-05-31 17:52] LABS: Reflex Lactic Add Lactic Reflex
--- NOTE | 2025-05-31 18:48 | PC.NURSE ---
[facility] PHARMD called to inquire about the MAR. I relayed what was given. She said that was the same as the records we sent.
== END 2025-05-31 16:08 | disposition other institution (70) ==
PROVIDERS: Nurse Practitioner; Emergency Provider Student in an Organized Health Care Education/Training Program; PCP Pediatrics
DX: K92.2 Gastrointestinal hemorrhage, unspecified (principal); G93.49 Other encephalopathy; K72.90 Hepatic failure, unspecified without coma; C22.0 Liver cell carcinoma; F17.210 Nicotine dependence, cigarettes, uncomplicated
CPT/HCPCS: 80053; 81001; 82140; 83605; 83690; 83735; 85025; 85610; 85651; 85730; 86140; 87636; 96361; 96374; 99285; J1171; J7030